=== PATIENT | male | born 1955 | race Caucasian/White ===

== ENCOUNTER 2020-01-22 11:53 | Observation (INO) | payer SELFPAY ==
[2020-01-22] VITALS (8 sets, daily range): BP systolic 119–139; BP diastolic 77–86; PULSE 55–72; RESP 11–16; TEMP 36.2–37.1; O2SAT 95–97; BMI 24.4; BMI 25.4
--- NOTE | 2020-01-22 11:59 | ED.RN ---
NO OLD EKGS
--- NOTE | 2020-01-22 12:03 | RAD_ITS ---
STUDY: X-RAY CHEST REASON FOR EXAM: Male, 64 years old. CHEST PAIN TECHNIQUE: PA and lateral views of the chest. COMPARISON: None. FINDINGS: The lungs are clear and expanded. There is no demonstrated pleural abnormality. Normal size heart. Normal mediastinum and oumou. Normal visualized pulmonary arteries. Normal visualized aortic arch and descending thoracic aorta. Normal visualized thoracic spine. Normal visualized ribs, clavicles, and shoulders. There is no demonstrated abnormality of the visualized soft tissue structures of the upper abdomen. RAD/Chest PA and Lateral IMPRESSION: Normal x-ray examination of the chest. Electronically Signed: Lake Klein MD at 12:42 EDT Tel , Service support ,
--- NOTE | 2020-01-22 12:03 | EKG12_ITS ---
Test Reason : Blood Pressure : / mmHG Vent. Rate : 071 BPM Atrial Rate : 071 BPM P-R Int : 140 ms QRS Dur : 088 ms QT Int : 380 ms P-R-T Axes : 066 -18 008 degrees QTc Int : 412 ms Normal sinus rhythm Minimal voltage criteria for LVH, may be normal variant Nonspecific ST abnormality Abnormal ECG Confirmed by CHARISSE OWENS, RALPH ([id number]), manager editorial WESLEY ASTORGA ([id number]) on 01/23/2020 8:25:06 AM Referred By: KEISHA Confirmed By:RALPH MCQUEEN MD
[2020-01-22] MEDS: Aspirin 81 MG TAB.CHEW 324 MG PO (12:12)
[2020-01-22 12:33] LABS: D-Dimer Quantitative (DVT/PE) 0.45 FEU/ug/m (0.27-0.49)
[2020-01-22 12:37] LABS: Absolute Lymphocyte Count 0.58 X10^3/uL (0.83-4.51); Absolute Neutrophil Count 3.3 X10^3/uL (2.0-7.7); Basophil# 0.02 X10^3/uL; Basophil% 0.5 % (0-1); Eosinophil# 0.02 X10^3/uL; Eosinophils% 0.5 % (0-5); Hematocrit 45.5 % (40-54); Hemoglobin 15.1 g/dL (13.0-16.5); Lymphocyte # 0.58 X10^3/ul (4.0); Lymphocyte % 13.5 % (19-41); Mean Corp Hgb Conc 33.2 g/dL (32-36); Mean Corpuscular Hgb 31.3 pg (27.0-32.0); Mean Corpuscular Volume 94.4 fL (80-94); Mean Platelet Vol. 9.9 fl (6.2-12.0); Monocyte# 0.36 X10^3/uL; Monocyte% 8.4 % (0-10); NRBC Flagged by Analyzer 0 % (0-5); Neutrophil # 3.31 X10^3/uL (2.7-7.7); Neutrophil % 76.6 % (47-70); POSITIVE DIFFERENTIAL YES; Platelet Count 198 K/mm3 (150-450); RBC Distribution Width CV 12.6 % (11.6-14.6); Red Blood Count 4.82 M/mm3 (4.6-6.2); White Blood Count 4.3 K/mm3 (4.4-11.0)
[2020-01-22 12:38] LABS: Differential Indicated SCAN CRITERIA MET
[2020-01-22 12:40] LABS: Anion Gap 6 (5-15); BUN 14 mg/dL (7-18); BUN/Creat Ratio 19.3 RATIO (10-20); Calcium,Total 8.5 mg/dL (8.5-10.1); Chloride 103 mmol/L (98-107); Creatinine, Serum 0.72 mg/dL (0.70-1.30); EST Glomerular Filtration Rate 115 mL/min (>60); Est Glom Filt Rate - Afr Amer 140 mL/min (>60); Estimated Creatinine Clearance 108.94 ml/min; Glucose 100 mg/dL (74-106); Potassium 4.1 mmol/L (3.5-5.1); Sodium Level 137 mmol/L (136-145)
--- NOTE | 2020-01-22 13:05 | PCM.HP.STD ---
Problem List (1) Syncope Status: Acute Qualifiers: Syncope type: unspecified Qualified Code(s): R55 - Syncope and collapse (2) Mitral valve prolapse Status: Chronic (3) History of DVT (deep vein thrombosis) Status: Chronic History of Present Illness Date of Admission: 01/22/20 Chief Complaint: Syncopal event The patient is a 64 y/o M w/ PMHx: Hx VTE (DVTs) 2016 x 2 following prolonged travel, Mitral Valve Prolapse who presents to the [facility] ED on 01/22/20 with history of onset syncopal event, noted to have been seated, had eaten breakfast with recent lower back discomfort complaints which happens occasionally with onset feeling hot, leaned his head back per spouse and passed out for ~1-2 minutes and once he came to he noted onset nausea with abdominal upper BL quadrant discomfort, tightness description with no post-ictal phase, no loss of bowel or bladder. He denied any recent illness including fever, chills, diarrhea, alteration to his sense of taste/smell. No recent ill contacts. No recent exposure COVID-19 risks. Work-up in the ED included 97.3, heart rate 72, BP 126/83, respiratory rate 16, 97% on room air, CBC w/ WBC 4.3, Hgb 15.1, Plts 198 with lymphopenia evident, D-dimer 0.45, BMP unremarkable, troponin less than 0.015, chest x-ray with no acute cardiopulmonary findings, EKG w/ sinus rhythm with nonspecific changes with no comparison. In the ED patient administered ASA 324 mg po x 1. In ED patient noted feeling improved and near his baseline. Past Medical History Past Medical History (Chronic Problems): Chronic Problems Mitral valve prolapse (Chronic) History of DVT (deep vein thrombosis) (Chronic) Allergies Penicillins Adverse Reaction (Verified 01/22/20 11:53) PT UNABLE TO RESPOND-NEEDS F/U Home Medications: Ambulatory Orders Medication Instructions Recorded Aspirin 81 mg PO DAILY 01/22/20 [place] 450 mg PO DAILY 01/22/20 Multivitamin [Multiple Vitamins] 1 tab PO DAILY 01/22/20 [place]-3 Fatty Acids [[place]-3] 1,000 mg PO DAILY 01/22/20 Turmeric/Turmeric Root Extract 1 cap PO DAILY 01/22/20 [Turmeric 500 mg Capsule] Surgical History: - - Hiatal hernia repair. Psychiatric History: No pertinent psych hx Lives: Spouse/ Significant Other Smoking Status: Former smoker Tobacco Use: Non-smoker Alcohol: Occasional Drugs: None - *Family History Maternal History Items: Stroke Paternal History Items: Heart Disease - Father with a history of MS leading to his . Review of Systems Constitutional: Reports: Malaise, Weakness, Fatigue. Denies: Anorexia, Chills, Fever, Weight Change HEENT: Denies: Head Aches, Sinus Congestion, Sinus Drainage Cardiovascular: Reports: Paroxysmal Noc. Dyspnea. Denies: Chest Pain, Chest Pressure, Chest Tightness, Light Headedness, Orthopnea, Palpitations Respiratory: Denies: Cough, Shortness of Breath, Shortness of breath at rest, Shortness of breath upon exertion, Sputum production Gastrointestinal: Reports: Abdominal Pain, Nausea. Denies: Vomiting Genitourinary: Denies: Dysuria Musculoskeletal: Reports: Back Pain, Joint Pain. Denies: Joint Tenderness Skin: Denies: Rash, Wounds Neurological: Denies: Numbness, Tingling, Focal weakness Psychiatric: Denies: Anxiety, Depression, Homicidal Ideations, Suicidal Ideations Hematologic/ Lymphatic: Denies: Easy Bruising, Easy Bleeding VTE Information - Inpt Only VTE Present on Admission: No VTE Mechan Device Prophylaxis: SCD's VTE Pharm Prophylaxis ordered?: Yes Subjective: Patient seated upright in ED bed, fatigued appearing, notes feeling improved. Objective: Physical Examination: General: awake, alert, oriented x 3 and cooperative, seated upright in the ED bed in no apparent distress. Skin: normal color, turgor, no icterus, cyanosis. HEENT: AT/NC, EOMI, PERRLA, moderately dry MM, no carotid bruits or JVD noted. Lungs: CTA bilaterally, moderate effort, moderate decrease BL bases, no rales, ronchi or wheezing. Heart: Mildly bradycardic with regular rhythm; no gallop, rub audible. Abdomen: soft, NTTP, ND, mildly hypoactive in all walker, no HSM. Extremities: no cyanosis, clubbing, or edema. Neurological: patient awake, alert, oriented x 3; cognitive function intact; pupils equally reactive to light and accomodation; cranial nerves II-XII grossly normal, moving all 4 extremities, no focal deficits, strength mildly globally decreased secondary to acute presentation. Psychiatric: affect appears mildly fatigued otherwise normal, no acute evidence of depressive or anxiety feelings. - Physical Exam Vitals/I&O's: Vital Signs Temp Pulse Resp BP Pulse Ox 97.3 F L 72 16 126/83 H 97 01/22/20 11:54 01/22/20 11:54 01/22/20 11:54 01/22/20 11:54 01/22/20 11:54 Oxygen Delivery Method Room Air Weight: 175 lb Body Mass Index (BMI) 24.4 Laboratory Results 01/22/20 12:00: WBC 4.3 L, RBC 4.82, Hgb 15.1, Hct 45.5, MCV 94.4 H, MCH 31.3, MCHC 33.2, RDW Std Deviation 44.0 H, RDW Coeff of Edna 12.6, Plt Count 198, MPV 9.9, Immature Gran % (Auto) 0.500, Neut % (Auto) 76.6 H, Lymph % (Auto) 13.5 L, [place] % (Auto) 8.4, Eos % (Auto) 0.5, Baso % (Auto) 0.5, Absolute Neuts (auto) 3.3, Absolute Lymphs (auto) 0.58 L, Nucleated RBC % 0 01/22/20 12:00: Sodium 137, Potassium 4.1, Chloride 103, Carbon Dioxide 28.0, Anion Gap 6, BUN 14, Creatinine 0.72, Estim Creat Clear Calc 108.94, Est GFR (MDRD) Af Amer 140, Est GFR (MDRD) Non-Af 115, BUN/Creatinine Ratio 19.3, Glucose 100, Calcium 8.5, Troponin I < 0.015 01/22/20 12:00: D-Dimer Quant (PE/DVT) 0.45 Assessment/Plan All Active Problems Syncope (Acute) The patient is a 64 y/o M w/ PMHx: Hx VTE (DVTs) 2016 x 2 following prolonged travel, Mitral Valve Prolapse who presents to the [facility] ED on 01/22/20 with history of onset syncopal event, noted to have been seated, had eaten breakfast with recent lower back discomfort complaints which happens occasionally with onset feeling hot, leaned his head back per spouse and passed out for ~1-2 minutes. 1. Syncopal Event: Unclear etiology, EKG in ED w/ sinus rhythm without evidence of acute ischemia, CXR w/ no acute cardiopulmonary findings, initial trop normal. Will admit to PCU, place on a monitored bed to assure no acute myocardial infarction with serial cardiac enzymes and EKGs. Will maintain on fall precautions, obtain admission orthostatic and AM orthostatic VS and increase hydration if appropriate. Will obtain ECHO. 2. Abdominal discomfort, nausea: Unclear if associate with #1, to be cautious will obtain hepatic profile additionally and lipase. Patient did note last BM was 1 day prior, monitor output and if any concerns may consider KUB. 3. Hx VTE, DVT x 2 (RLE, LLE): D-dimer normal, noted to have happened with prolonged travel in 2016 to bilateral lower extremities and none since, not anticoagulated currently. 4. DVT Prophylaxis: SCDs, lovenox. 5. CODE status: Patient DOUG is his who is present and living will is in place. Discussed CODE status at length including difference between FULL code, DNR-CCA and DNR-CC status. Following discussions about the differences in these status, requested Full Code status but noted his living will had specifics about prolonged needs being deferred. Advanced Care Planning Face to Face Time: 16 minutes. OBSV E&M: 42014 Initial observation care L3 Procedures: 85721 Advncd Care Plan 30 Min
--- NOTE | 2020-01-22 13:12 | ED.DCSUM_ITS ---
History of Present Illness Chief Complaint: Syncope Narrative: Patient presenting for evaluation secondary to a syncopal episode. Patient states that he was feeling fine today, and had a sudden onset of syncope. He reports that he was seated getting ready for work and he had an onset of some nausea no intense abdominal pain and then his reports that he had a syncopal episode. She reports that he was making some abnormal sounds when this happened, but was not having any tonic-clonic seizure activity there was no postictal episode. Patient did not lose control of his bowel or bladder, did not have any tongue biting he denies any preceding chest pain palpitations or shortness of breath. He has been otherwise healthy recently denies any infectious signs or symptoms. Patient does have a past history of DVT, he is no longer currently anticoagulated. He has had a period recently where he was seated for prolonged period of time over the weekend. No abnormal leg swelling. Review of systems otherwise negative. Past Medical History - Allergies and Home Meds Allergies/Adverse Reactions: Allergies Penicillins Adverse Reaction (Verified 01/22/20 11:53) PT UNABLE TO RESPOND-NEEDS F/U Primary Care Physician: Dante Gurrola DO [Primary Care Provider] - Prior records reviewed: Yes Past Medical History: - - Past history of DVT Lives: Spouse/ Significant Other Smoking Status: Former smoker Alcohol: None Drugs: None Review of Systems All systems negative except as indicated General: Denies: Chills, Fever, Sweats Eyes: Denies: Visual changes - bilaterally, Diplopia ENT: Denies: Rhinorrhea, Sore throat Cardiovascular: Reports: - - Syncope Respiratory: Denies: Dyspnea, Cough, Dyspnea on exertion Gastrointestinal: Reports: Nausea Genitourinary: Denies: Dysuria, Hematuria, Frequency Musculoskeletal: Denies: Back pain, Extremity Pain Skin: Denies: Rash, Wounds Neurological: Denies: Headache, Weakness, Numbness Physical Exam Vital Signs/Narrative: Vital Signs Temp Pulse Resp BP Pulse Ox 01/22/20 13:05 97.2 F L 64 11 L 120/86 H 96 01/22/20 11:54 97.3 F L 72 16 126/83 H 97 Inital Vital Signs reviewed: Yes General: Well nourished, Well developed, No Acute Distress Head: Normocephalic, Atraumatic Eyes: Perrl, EOMI ENT: Moist mucous membranes, No rhinorrhea Neck: Supple, Nontender Cardiovascular: Regular rate, Regular rhythm, No murmurs Respiratory: No distress, CTA bilaterally, Chest nontender Abdomen: Soft, Nontender, Nondistended, Normal bowel sounds Back: Nontender, Normal Inspection Extremities: Nontender, No edema Skin: Normal color, No rash Neurological: Alert, Oriented x3, Cranial nerves II-XII grossly intact, Normal Strength, Normal Sensation Psychological: Normal affect, Normal Mood Diagnostic/Tx/Re-eval Chest X-Ray - ED: Read by ED Physician, Read by Radiologist, Normal Clinical Impression(s) from Imaging Studies Chest X-Ray 01/22/20 12:03 IMPRESSION: Normal x-ray examination of the chest. Electronically Signed: Lake Klein MD at 12:42 EDT Tel , Service support , Laboratory Data 01/22/20 01/22/20 01/22/20 12:00 12:00 12:00 WBC 4.3 L RBC 4.82 Hgb 15.1 Hct 45.5 MCV 94.4 H MCH 31.3 MCHC 33.2 RDW Std Deviation 44.0 H RDW Coeff of Edna 12.6 Plt Count 198 MPV 9.9 Immature Gran % (Auto) 0.500 Neut % (Auto) 76.6 H Lymph % (Auto) 13.5 L [place] % (Auto) 8.4 Eos % (Auto) 0.5 Baso % (Auto) 0.5 Absolute Neuts (auto) 3.3 Absolute Lymphs (auto) 0.58 L Nucleated RBC % 0 D-Dimer Quant (PE/DVT) 0.45 Sodium 137 Potassium 4.1 Chloride 103 Carbon Dioxide 28.0 Anion Gap 6 BUN 14 Creatinine 0.72 Estim Creat Clear Calc 108.94 Est GFR (MDRD) Af Amer 140 Est GFR (MDRD) Non-Af 115 BUN/Creatinine Ratio 19.3 Glucose 100 Calcium 8.5 Troponin I < 0.015 - EKG Initial EKG Interpretation: - - Sinus rhythm of 71 with normal T waves, isoelectric ST segments, normal intervals, no evidence of WPW or [place] morphology. - Medical Decision Making Patient presented after syncopal episode. He was watched on telemetry did not have any signs of malignant arrhythmia. Chest x-ray by my review as well as radiology is negative. Lab work including CBC chemistry troponin and D-dimer were negative. Patient had a unprovoked syncopal event and is 64 years old I believe that he requires admission for observation for work-up of a unprovoked syncopal episode and rule out malignant arrhythmia. Patient will be admitted under the hospitalist. ED Disposition - Plan for ED Patient: Disposition: Acute Care Hospital [facility] Diagnosis: Syncope
[2020-01-22 13:14] LABS: Platelet Estimate ADEQUATE (ADEQ); Red Cell Morphology NORM C+C NORMAL (NORM C&C)
--- NOTE | 2020-01-22 14:36 | ECHOD_ITS ---
Reason For Study: SYNCOPE Procedure This was a 2D Doppler, Color Flow transthoracic echocardiogram. The exam was of adequate technical quality. Exam performed portable in patient room. Left Ventricle Normal LV size. Left ventricular systolic function is normal. The estimated ejection fraction is 60 %. Diastolic function is indeterminate. No regional wall motion abnormalities noted. Right Ventricle Normal RV size. Normal systolic function. Atria Borderline enlarged left atrium. Normal right atrium. No doppler evidence for ASD. Mitral Valve There is no mitral annular calcification. Normal mitral valve. Mild (1+) mitral valve insufficiency. Tricuspid Valve Normal tricuspid valve. Trivial tricuspid valve insufficiency. Right ventricular systolic pressure estimated to be 25 mmHg. Aortic Valve Trisinus/trileaflet aortic valve. Mild focal aortic valve calcification. Pulmonic Valve The pulmonic valve is not well visualized. Great Vessels Mildly dilated aortic root. Pericardium/Pleural No pericardial effusion. MMode/2D Measurements & Calculations LVIDd: 5.6 cm IVSd: 0.79 cm Ao root diam: 4.0 cm LVIDs: 3.9 cm LVPWd: 0.82 cm RVDd: 4.0 cm FS: 30.4 % LAV(MOD-bp): 69.9 ml LVAd ap4: 37.8 cm2 SV(MOD-sp4): 71.6 ml LAV(MOD-bp) Indexed: 34.5 ml/m2 EDV(MOD-sp4): 129.5 ml LAV(MOD-sp2): 79.5 ml EDV(sp4-el): 132.5 ml LAV(MOD-sp4): 58.6 ml LVAs ap4: 22.2 cm2 ESV(MOD-sp4): 57.9 ml ESV(sp4-el): 58.2 ml EF(MOD-sp4): 55.3 % EF(sp4-el): 56.1 % SV(sp4-el): 74.3 ml LA A4 area: 20.5 cm2 LA dimension(2D): 3.8 cm RA A4 area: 20.8 cm2 Time Measurements MV dec time: 0.11 sec Doppler Measurements & Calculations MV E max tato: 41.9 cm/sec Lat Peak E' Tato: 9.7 cm/sec Med Peak E' Tato: 5.9 cm/sec MV A max tato: 46.2 cm/sec E/E' lat: 4.3 E/E' med: 7.1 MV E/A: 0.91 Ao V2 max: 112.9 cm/sec LV V1 max: 84.5 cm/sec PA V2 max: 91.3 cm/sec Ao max P.1 mmHg LV V1 max P.9 mmHg PI end-d tato: 84.9 cm/sec TR max tato: 234.8 cm/sec TR max P.1 mmHg Interpretation Summary Left ventricular systolic function is normal. The estimated ejection fraction is 60 %. Borderline enlarged left atrium. Mild (1+) mitral valve insufficiency. Trivial tricuspid valve insufficiency. Mild focal aortic valve calcification. Mildly dilated aortic root. Right ventricular systolic pressure estimated to be 25 mmHg. Diastolic function is indeterminate. Ordering Physician: Jaylyn Wilkerson Referring Physician: SHYANNE GONZALEZ Performed By: Greta Milligan, RDMARIANO, RVT
[2020-01-22] MEDS: 0.9% Saline Lock 10 ML Syringe IV (14:53)
[2020-01-22] MEDS: 0.9% Normal Saline 1,000 ML 125 ML IV ×2 (14:53→22:47)
[2020-01-22 15:13] LABS: AST(SGOT) 15 U/L (15-37); Alanine Aminotransfer ALT/SGPT 19 U/L (16-61); Albumin, Serum 3.3 g/dL (3.2-5.0); Alkaline Phosphatase 61 U/L (45-117); Bilirubin, Direct 0.15 mg/dL (0.00-0.30); Globulin 3.3 g/dL (2.2-4.2); Lipase 100 U/L (73-393); Magnesium 2.1 mg/dL (1.6-2.6); Protein, Total 6.6 g/dL (6.4-8.2)
[2020-01-22] MEDS: Famotidine 20 MG Tablet PO (21:24)
[2020-01-23] VITALS (8 sets, daily range): BP systolic 120–143; BP diastolic 62–95; PULSE 59–91; RESP 16–18; TEMP 36.5–36.7; O2SAT 96–98
[2020-01-23] MEDS: 0.9% Normal Saline 1,000 ML 125 ML IV (06:01)
[2020-01-23 07:22] LABS: Absolute Lymphocyte Count 0.66 X10^3/uL (0.83-4.51); Absolute Neutrophil Count 2.5 X10^3/uL (2.0-7.7); Basophil# 0.01 X10^3/uL; Basophil% 0.3 % (0-1); Eosinophil# 0.02 X10^3/uL; Eosinophils% 0.6 % (0-5); Hematocrit 42.1 % (40-54); Lymphocyte # 0.66 X10^3/ul (4.0); Lymphocyte % 18.9 % (19-41); Mean Corp Hgb Conc 33.3 g/dL (32-36); Mean Corpuscular Hgb 31.3 pg (27.0-32.0); Mean Corpuscular Volume 94.2 fL (80-94); Mean Platelet Vol. 9.8 fl (6.2-12.0); Monocyte# 0.34 X10^3/uL; Monocyte% 9.7 % (0-10); NRBC Flagged by Analyzer 0 % (0-5); Neutrophil # 2.45 X10^3/uL (2.7-7.7); Neutrophil % 70.2 % (47-70); Platelet Count 157 K/mm3 (150-450); RBC Distribution Width CV 12.6 % (11.6-14.6); Red Blood Count 4.47 M/mm3 (4.6-6.2); White Blood Count 3.5 K/mm3 (4.4-11.0)
[2020-01-23 07:46] LABS: AST(SGOT) 15 U/L (15-37); Alanine Aminotransfer ALT/SGPT 16 U/L (16-61); Alkaline Phosphatase 56 U/L (45-117); Anion Gap 5 (5-15); BUN 12 mg/dL (7-18); BUN/Creat Ratio 16.2 RATIO (10-20); Calcium,Total 7.8 mg/dL (8.5-10.1); Chloride 107 mmol/L (98-107); Creatinine, Serum 0.74 mg/dL (0.70-1.30); EST Glomerular Filtration Rate 113 mL/min (>60); Est Glom Filt Rate - Afr Amer 136 mL/min (>60); Glucose 94 mg/dL (74-106); Sodium Level 141 mmol/L (136-145)
[2020-01-23] MEDS: Enoxaparin 40 MG/0.4 ML Syringe SC (08:28)
[2020-01-23] MEDS: Famotidine 20 MG Tablet PO (08:28)
[2020-01-23] MEDS: Aspirin 81 MG TAB.CHEW PO (08:28)
--- NOTE | 2020-01-23 11:30 | DCINST_ITS ---
- Discharge Diagnoses Current Active Problems: Current Active and Chronic Problems Syncope (Acute) Mitral valve prolapse (Chronic) History of DVT (deep vein thrombosis) (Chronic) Syncope (Acute) You will use the following diet at home:: Regular Your food should be the consistency of: Regular Discharge Activity: May Not Drive - Until see his PCP Weight Bearing Status: Weight bearing as tolerated Call your doctor if you observe: Fever of 101 or Higher, Numbness or Tingling, Inability to urinate, Inability to have a bowel movement, Shortness of breath, Dizziness, Fainting spells, Swelling in the ankles, Chest pain, Increased palpitations (irregular heartbeat), Calf discomfort, Uncontrolled pain Allergies/Adverse Reactions: Allergies Penicillins Adverse Reaction (Verified 01/22/20 11:53) PT UNABLE TO RESPOND-NEEDS F/U Medications to take at Discharge Aspirin 81 mg PO DAILY 01/22/20 [place] 450 mg PO DAILY 01/22/20 Multivitamin [Multiple Vitamins] 1 tab PO DAILY 01/22/20 [place]-3 Fatty Acids [[place]-3] 1,000 mg PO DAILY 01/22/20 Turmeric/Turmeric Root Extract [Turmeric 500 mg Capsule] 1 cap PO DAILY 01/22/20 Primary Care Physician: Dante Gurrola DO [Primary Care Provider] - Please follow up with your Primary Care Physician in: IN 1-2 WEEKS Test Results: Test results from this visit will be discussed in further detail at your follow- up appointment, if applicable.
[2020-01-23 13:11] LABS: Pathologist Review Reviewed
--- NOTE | 2020-01-23 13:54 | DS.PCM_ITS ---
<Jey Munoz - Last Filed: 01/23/20 13:54> Discharge Date and Diagnosis - Problem List Patient Problems: Active and Suspected Problems Syncope (Acute) Syncope (Acute) Date of Admission: 01/22/20 Date of Discharge: 01/23/20 - Primary Discharge Diagnosis Acute Problems: Active Problems Syncope - orthostatic hypotension - Secondary Discharge Diagnosis Chronic Problems: Chronic Problems Mitral valve prolapse (Chronic) History of DVT (deep vein thrombosis) (Chronic) Hospital Course and Treatment Imaging Results: RAD/Chest PA and Lateral IMPRESSION: Normal x-ray examination of the chest. 2D TTE: Interpretation Summary Left ventricular systolic function is normal. The estimated ejection fraction is 60 %. Borderline enlarged left atrium. Mild (1+) mitral valve insufficiency. Trivial tricuspid valve insufficiency. Mild focal aortic valve calcification. Mildly dilated aortic root. Right ventricular systolic pressure estimated to be 25 mmHg. Diastolic function is indeterminate. Operations: None Procedures: 2-D Echocardiogram Summary of Care Provided: Hospital Course: The patient is a 64 year old M hx provoked DVT and MVP who presented to the ER with syncope. The patient was sitting on a stool waiting to be picked up for work when he felt back pain and then passed out for several minutes. He had no shaking or tongue biting. He woke up feeling nauseous. He came to the ER and had negative EKG, negative D dimer, neg CXR, and unremarkable blood work. He was admitted to PCU. He was treated with IV fluids. He had no events on tele. He was not on any medications that would likely induce syncope. Echo was obtained showing preserved EF and 1+ MVI, RVSP 25. He had + orthostatic vitals. He was discharged home in stable condition and advised to follow up with his pcp in 1-2 weeks. This patient was seen by Jey Munoz PA-C under the supervision of Dr. Horn. [] Patient Problems: Active and Suspected Problems Syncope (Acute) Syncope (Acute) - Physical Exam Vitals/I&O's: Vital Signs Temp Pulse Resp BP Pulse Ox 98.0 F 59 L 16 137/75 H 97 01/23/20 08:24 01/23/20 11:47 01/23/20 08:24 01/23/20 11:47 01/23/20 08:24 Oxygen Delivery Method Room Air Weight: 182 lb 1.629 oz Body Mass Index (BMI) 25.4 Intake and Output for Last 24 Hours 01/21/20 01/22/20 01/23/20 23:59 23:59 23:59 Intake Total 1437.5 / 1437.5 1622.92 / 1622.92 Balance 1437.5 / 1437.5 1622.92 / 1622.92 General: Alert, Oriented x3, Cooperative HEENT: Atraumatic, PERRLA, EOMI, Normocephalic Neck: Supple, No JVD, Negative Carotid Bruits Lungs: Clear to auscultation, Normal air movement Cardiovascular: Regular rate, No murmurs Abdomen: Bowel Sounds Present, Soft, Non Tender Extremities: No edema, Capillary Refill Less than 3 Seconds Skin: No rashes, No breakdown Musculoskeletal: No Tenderness to Palpation of Joints or Extremities Neurological: Cranial nerves II-XII grossly intact Psych/Mental Status: Normal Affect, Appropriate, Alert and oriented to time, place, person, mood and affect Laboratory Results 01/22/20 12:00: Diff Path Review Reviewed 01/22/20 14:45: Magnesium 2.1, Total Bilirubin 0.50, Direct Bilirubin 0.15, AST 15, ALT 19, Alkaline Phosphatase 61, Troponin I < 0.015, Total Protein 6.6, Albumin 3.3, Globulin 3.3, Lipase 100 01/22/20 17:54: Troponin I < 0.015 01/23/20 06:55: WBC 3.5 L, RBC 4.47 L, Hgb 14.0, Hct 42.1, MCV 94.2 H, MCH 31.3, MCHC 33.3, RDW Std Deviation 44.0 H, RDW Coeff of Edna 12.6, Plt Count 157, MPV 9.8, Immature Gran % (Auto) 0.300, Neut % (Auto) 70.2 H, Lymph % (Auto) 18.9 L, Dawson % (Auto) 9.7, Eos % (Auto) 0.6, Baso % (Auto) 0.3, Absolute Neuts (auto) 2.5, Absolute Lymphs (auto) 0.66 L, Nucleated RBC % 0 01/23/20 06:55: Sodium 141, Potassium 4.0, Chloride 107, Carbon Dioxide 29.0, Anion Gap 5, BUN 12, Creatinine 0.74, Estim Creat Clear Calc 106.00, Est GFR (MDRD) Af Amer 136, Est GFR (MDRD) Non-Af 113, BUN/Creatinine Ratio 16.2, Glucose 94, Calcium 7.8 L, Total Bilirubin 0.50, AST 15, ALT 16, Alkaline Phosphatase 56, Total Protein 6.0 L, Albumin 3.0 L, Globulin 3.0, Albumin/Globulin Ratio 1.0 Discharge Diet: No Restrictions, 2000 mg Sodium Diet Discharge Activity: May Not Drive - Until see his PCP Weight Bearing Status: Weight bearing as tolerated Call your doctor if you observe: Fever of 101 or Higher, Numbness or Tingling, Inability to urinate, Inability to have a bowel movement, Shortness of breath, Dizziness, Fainting spells, Swelling in the ankles, Chest pain, Increased palpitations (irregular heartbeat), Calf discomfort, Uncontrolled pain Home Medications: Medications to take at Discharge Aspirin 81 mg PO DAILY 01/22/20 [place] 450 mg PO DAILY 01/22/20 Multivitamin [Multiple Vitamins] 1 tab PO DAILY 01/22/20 [place]-3 Fatty Acids [[place]-3] 1,000 mg PO DAILY 01/22/20 Turmeric/Turmeric Root Extract [Turmeric 500 mg Capsule] 1 cap PO DAILY 01/22/20 Primary Care Physician: Dante Gurrola DO [Primary Care Provider] - Please follow up with your Primary Care Physician in: IN 1-2 WEEKS Disposition: Home Minutes spent on discharge:: 35 Patient Condition:: Stable Medical Necessity - Tobacco Use Smoking Status: Never smoker Tobacco Use: Non-smoker Meaningful Use Info Meaningful Use Diagnoses (Choose all that apply): None applicable <Luke Horn - Last Filed: 01/23/20 16:08> Discharge Date and Diagnosis - Primary Discharge Diagnosis Acute Problems: Active Problems Syncope (Acute) Syncope (Acute) - Secondary Discharge Diagnosis Chronic Problems: Chronic Problems Mitral valve prolapse (Chronic) History of DVT (deep vein thrombosis) (Chronic) Hospital Course and Treatment Summary of Care Provided: This patient was seen in conjunction with Jey PERKINS. I have independently interviewed and examined the patient and reviewed pertinent history, examination findings, laboratory and plan of management. I have reviewed the note and agree with the documented findings with the few additional points. In brief, patient is admitted for syncope most likely vasovagal syncope or dehydration. Patient was dizzy and lightheaded before passing out and when he woke up was mild dizzy and took some minutes to come back to full alertness. Orthostatic blood pressure was low. Patient was hydrated well and repeat orthostatic blood pressure came normal. ECHO as mentioned above. Has H/o MVP with mild MR. Discharge medication reconciliation done. Discharge follow-up instructions completed. Discharge process discussed with the patient and all questions were answered to patient's satisfaction. Total time spent, exact 35 minutes on discharge meds reconciliation, examination, coordination of care with nurses and ancillary staff, review of imaging and blood test and discussion with the patient on follow-up instructions I have discussed my assessment with Jey PERKINS and orders have been reviewed. [] Objective: Seen and examined. On day of admission, patient had orthostatic drop in blood pressure from sitting to standing position about 23 mmHg. Patient was hydrated well. Repeat orthostatic blood pressure negative. Physical exam. General: Alert, Oriented x3, Cooperative HEENT: Atraumatic, PERRLA, EOMI, Normocephalic Oral: No Gingival or Mucosal Lesions/ Ulcerations Neck: Supple, No JVD, Negative Carotid Bruits Lungs: Air entry diminished in bilateral lung bases. No crepitation/rhonchi Cardiovascular: Regular rate, Regular Rhythm, Normal S1, Normal S2, No murmurs Abdomen: Bowel Sounds Present, Soft, Non Tender, Non-Distended : No renal angle tenderness. No suprapubic tenderness. Extremities: No edema, Capillary Refill Less than 3 Seconds Skin: No rashes, No breakdown Musculoskeletal: No Tenderness to Palpation of Joints or Extremities Neurological: Cranial nerves II-XII grossly intact, Deep Tendon Reflexes 2+/4 and Symmetrical, Neuro grossly intact Psych/Mental Status: Normal Affect, Appropriate. - Physical Exam Vitals/I&O's: Vital Signs Temp Pulse Resp BP Pulse Ox 98.0 F 59 L 16 137/75 H 97 01/23/20 08:24 01/23/20 11:47 01/23/20 08:24 01/23/20 11:47 01/23/20 08:24 Oxygen Delivery Method Room Air Weight: 182 lb 1.629 oz Body Mass Index (BMI) 25.4 Intake and Output for Last 24 Hours 01/21/20 01/22/20 01/23/20 23:59 23:59 23:59 Intake Total 1437.5 / 1437.5 1622.92 / 1622.92 Balance 1437.5 / 1437.5 1622.92 / 1622.92 Laboratory Results 01/22/20 12:00: Diff Path Review Reviewed 01/22/20 17:54: Troponin I < 0.015 01/23/20 06:55: WBC 3.5 L, RBC 4.47 L, Hgb 14.0, Hct 42.1, MCV 94.2 H, MCH 31.3, MCHC 33.3, RDW Std Deviation 44.0 H, RDW Coeff of Edna 12.6, Plt Count 157, MPV 9.8, Immature Gran % (Auto) 0.300, Neut % (Auto) 70.2 H, Lymph % (Auto) 18.9 L, Dawson % (Auto) 9.7, Eos % (Auto) 0.6, Baso % (Auto) 0.3, Absolute Neuts (auto) 2.5, Absolute Lymphs (auto) 0.66 L, Nucleated RBC % 0 01/23/20 06:55: Sodium 141, Potassium 4.0, Chloride 107, Carbon Dioxide 29.0, Anion Gap 5, BUN 12, Creatinine 0.74, Estim Creat Clear Calc 106.00, Est GFR (MDRD) Af Amer 136, Est GFR (MDRD) Non-Af 113, BUN/Creatinine Ratio 16.2, Glucose 94, Calcium 7.8 L, Total Bilirubin 0.50, AST 15, ALT 16, Alkaline Phosphatase 56, Total Protein 6.0 L, Albumin 3.0 L, Globulin 3.0, Albumin/Globulin Ratio 1.0 OBSV E&M: [id number] Observation care discharge
== END 2020-01-23 13:08 | disposition home or self-care (01) ==
LOC: ED 13:15 → PCU 15:42
PROVIDERS: Admitting Provider Family Medicine; Emergency Provider Emergency Medicine; PCP Family Medicine; Visit Provider Internal Medicine
DX: R55 Syncope and collapse (principal); Z86.718 Personal history of other venous thrombosis and embolism; Z79.82 Long term (current) use of aspirin; Z87.891 Personal history of nicotine dependence; R10.9 Unspecified abdominal pain; R11.0 Nausea; I08.1 Rheumatic disorders of both mitral and tricuspid valves; M54.9 Dorsalgia, unspecified
CPT/HCPCS: 36415; 71046; 80048; 80053; 80076; 83690; 83735; 84484; 85025; 85379; 93005; 93306; 96360; 96361; 96372; 99218; 99251; 99285; J7030; A4216; G0378; G0463

== ENCOUNTER 2024-05-06 17:53 | Emergency (ER) | payer OTHER, SELFPAY ==
[2024-05-06 17:54] VITALS: BP 153/105; PULSE 80; RESP 15; TEMP 36.1; O2SAT 100; BMI 26.2
--- NOTE | 2024-05-06 18:12 | EDS_ITS ---
<Statement entered by Alf Santiago DO - 05/06/24 20:04> Patient was seen and examined with nurse dany Monreal All components of the history and physical confirmed and agreed. History of present illness and physical exam: Patient is a 69-year-old male with no known significant past medical history who presented to the emergency department with a chief complaint of abdominal pain. He states that this been going on for several months but states the last few days has been worsening. He states that he followed up with his primary care physician and was told yesterday to start MiraLAX. He states that he did have a bowel movement earlier today. He states that he is passing gas. Patient denies any sick contacts. Review of systems: Agree with above Physical exam: Agree with above MDM Patient is a 69-year-old male who presented to the emergency department the chief complaint of abdominal pain. On the differential diagnose includes Melamin to constipation, bowel obstruction, diverticulitis, pancreatitis. Once workup is obtained and reviewed he will be reevaluated. Patient CBC reviewed and was largely unremarkable no evidence leukocytosis white blood count normal 8.3, hemoglobin 13.4, plate count normal at 243. Patient sodium normal 139, potassium normal at 4, creatinine normal at 0.85. Patient's AST and ALT were 14 and 19 respectively. Patient lipase normal at 29 urinalysis reviewed and showed no evidence of infection. Patient CT abdomen pelvis with IV contrast reviewed showed a right renal cyst, left paravertebral cyst, left hepatic lobe cyst. Discussed results with the patient and he was encouraged to continue the bowel regimen and increase the MiraLAX that he is currently on to 3 times a day and will add Colace. He was encouraged to follow-up with his primary care physician and return with worsening symptoms or any concerns. Patient was given Bentyl as well. He is agreeable this plan as well as family members at bedside all question concerns answered is discharged home in stable condition. Final impression: Abdominal pain Constipation Disposition: Patient will be discharged home in stable condition Supervising attending attestation: Alf COLINDRES History of Present Illness Chief Complaint: Abd Pain Narrative Narrative: Patient is a 69-year-old male with no significant medical history who presents to the Emergency Department with complaints of ongoing abdominal pain for the last 6 to 7 weeks. Patient states over the last 2 to 3 days, the pain has been much more severe, last evening could not sleep. He states that his bowel movements have decreased. He is not having difficulty passing gas. He denies any fever or chills, denies any nausea or vomiting. Denies any blood in his stool or vomit. [facility] Medical History no medical history Home Medications ?Medication ?Instructions ?Recorded ?Last Taken ?Type aspirin 81 mg chewable tablet 81 mg PO DAILY heart hea lth 01/22/20 01/22/20 History capsicum (cayenne) 450 mg capsule 450 mg PO DAILY supp lemetn 01/22/20 01/22/20 History multivitamin 1 tab PO DAILY supplement 01/22/20 History omega-3 fatty acids 1,000 mg 1,000 mg PO DAILY supplem ent 01/22/20 01/22/20 History capsule turmeric 450 mg-turmeric root 1 cap PO DAILY supplemen t 01/22/20 01/22/20 History extract 50 mg capsule dicyclomine 20 mg tablet 20 mg PO TID #14 tabs Unknown Rx docusate sodium 100 mg capsule 100 mg PO BID #30 caps 05/06/24 Unknown Rx (Colace) Allergy/AdvReac Type Severity Reaction Status Date / Time Penicillins AdvReac PT UNABLE Verified 05/06/24 17:54 TO RESPOND-NEEDS F/U Family History no significant family his Surgical History no surgical history Social History Smoking Status: Never smoker ROS ROS ED ROS Narrative Constitutional: Negative for fever, chills, weight loss, weakness Eyes: Negative for vision loss, vision change, double vision ENT: Negative for any sore throat, ear pain, congestion Cardiovascular: Negative for any chest pain, tightness, palpitations Respiratory: Negative for any cough, sputum production, hemoptysis, dyspnea, dyspnea on exertion, orthopnea Gastrointestinal: Negative for any nausea, vomiting, diarrhea, blood in stool, blood in vomit., Positive abdominal pain, constipation : Negative for any urinary frequency, dysuria, retention, blood in urine Muscle skeletal: Negative for any neck pain, back pain Neurological: Negative for any headache, syncope, dizziness Skin: Negative for any rashes, itching, abrasions, lacerations Psychiatric: Negative for any depression, anxiety, stress, suicidal ideation, homicidal ideation Hematologic: Negative for any excessive bruising, easy bleeding EXAM Physical Exam Narrative Exam Narrative: Vital signs reviewed. BERNABE: Head normocephalic atraumatic, TMs clear bilaterally. Posterior pharynx is clear, moist mucous membranes. Nares clear bilaterally. Neck: Supple with no lymphadenopathy or tenderness. No signs of meningismus. Cardiac: Regular rate and rhythm no murmurs gallops or rubs, equal peripheral pulses bilaterally. Respiratory: Lungs clear to auscultation bilaterally. No chest tenderness. Abdomen: Soft, nondistended. No abdominal bruit or pulsatile masses. No hepatosplenomegaly. Hyperactive bowel sounds, pain to the lower midline abdomen. No peritoneal sign Extremities: No peripheral edema, no signs of gross trauma or deformity. Active full range of motion of all extremities. Neuro: Cranial nerves II through XII intact, no focal neurological deficits. Skin: Clean dry and intact with no rash, purpura, petechiae, vesicles or pustules. Backs/flank: No CVA tenderness, no midline spinal tenderness, no deformity. Psych: Normal mood and affect. No SI, HI or acute psychosis. Const Vital Signs: 05/06/24 17:54 Temperature 97 F L Temperature Source Temporal Pulse Rate 80 Respiratory Rate 15 Blood Pressure 153/105 H Blood Pressure Mean 121 Pulse Ox 100 Oxygen Delivery Method Room Air [facility] Lab Data Labs: Laboratory Results - last 24 hr 05/06/24 05/06/24 18:05 18:13 WBC 8.3 RBC 4.47 L Hgb 13.4 Hct 39.9 L MCV 89.3 MCH 30.0 MCHC 33.6 RDW Std Deviation 42.9 RDW Coeff of Edna 13.1 Plt Count 243 MPV 9.9 Immature Gran % (Auto) 0.200 Neut % (Auto) 75.8 H Lymph % (Auto) 13.2 L [place] % (Auto) 7.8 Eos % (Auto) 2.2 Baso % (Auto) 0.8 Absolute Neuts (auto) 6.3 Absolute Lymphs (auto) 1.10 Nucleated RBC % 0 Sodium 139 Potassium 4.0 Chloride 106 Carbon Dioxide 26.0 Anion Gap 7 BUN 27 H Creatinine 0.85 Estim Creat Clear Calc 86.13 Est GFR (MDRD) Af Amer 114 Est GFR (MDRD) Non-Af 94 BUN/Creatinine Ratio 31.7 H Glucose 112 H Calcium 8.9 Total Bilirubin 0.40 AST 14 L ALT 19 Alkaline Phosphatase 86 Total Protein 7.2 Albumin 3.5 Globulin 3.7 Albumin/Globulin Ratio 0.9 Lipase 29 Urine Color Yellow Urine Clarity Clear Urine pH 5.0 Ur Specific [place] 1.025 Urine Protein 15 H Urine Glucose (UA) Normal Urine Ketones 15 H Urine Occult Blood 10 H Urine Nitrite Negative Urine Bilirubin Negative Urine Urobilinogen Normal Ur Leukocyte Esterase 25 H Urine RBC 0 SEEN Urine WBC 0 SEEN Ur Squamous Epith Cells 0 SEEN Urine Bacteria 0 SEEN Urine Mucus 0 SEEN Radiography Diagnostic Testing: Clinical Impression(s) from Imaging Studies Abdomen/Pelvis CT 05/06/24 18:25 IMPRESSION: 1. Right renal cyst. 2. Left paravertebral cysts. 3. Left hepatic lobe cyst. 4. Other nonacute findings detailed above. Reading Location: [facility] Treatment and Re-Evaluation :: Differential diagnosis includes however is not limited to: Bowel obstruction, acute appendicitis, constipation, mass with diverticulitis, colitis Patient appears generally well, vital signs are stable, patient is nontoxic- appearing. Presenting to the [facility] for ongoing pain to the lower abdomen. Patient will receive the basic laboratory values going CBC CMP lipase, CT scan of the abdomen pelvis will be ordered. All radiologic examinations were read, reviewed by the emergency department attending. From these reads, a plan of care will be put in place. Patient was offered pain and nausea medicine, refused at this time Patient's abdominal CT shows right renal cyst, left paravertebral cyst. Left hepatic lobe cyst. No other acute findings. Patient's laboratory values showed normal CBC, chemistries were unremarkable. Patient's urinalysis was negative for infection. At this time, I did speak with the patient regarding a bowel regimen. Patient is currently taking MiraLAX he do that to 3 times a day. Add Colace, as well as if he needs to magnesium citrate. Patient was given Bentyl for abdominal cramping. He is happy the plan of care and will follow-up outpatient Discharge Plan Triage Chief Complaint: Abd Pain ED Midlevel Provider: Rah Navarro ED Provider: Alf Santiago Dx/Rx/DC Orders Clinical Impression: Abdominal pain, Constipation Instructions: Abdominal Pain, Eating a High-Fiber Diet, ED Constipation (Adult) Prescriptions: New dicyclomine 20 mg tablet 20 mg PO TID Qty: 14 0RF docusate sodium [Colace] 100 mg capsule 100 mg PO BID Qty: 30 0RF No Action aspirin 81 MG tablet,chewable 81 mg PO DAILY multivitamin 1 EACH tablet 1 tab PO DAILY omega-3 fatty acids 1,000 MG capsule 1,000 mg PO DAILY capsicum (cayenne) 450 MG capsule 450 mg PO DAILY turmeric-turmeric root extract 1 EACH capsule 1 cap PO DAILY Primary Care Provider: Dante Gurrola Referrals: Dante Gurrola, [Primary Care Provider] - Activity Restrictions/Additional Instructions: Please use your MiraLAX 2-3 times a day, you may add Colace. Bentyl is for abdominal cramping. Continue to stay hydrated Print Language: Kenyan Disposition Disposition: Home, Self Care
--- NOTE | 2024-05-06 18:25 | CT_ITS ---
PROCEDURE: ABDOMEN/PELVIS WITH IV CONTRAST REASON FOR EXAM: Abdominal pain for 3 weeks. TECHNIQUE: Contiguous axial scans of 3.75 mm slice thicknesses with sagittal and coronal reconstruction images. One or more dose reduction techniques were used (e.g., Automated exposure control, adjustment of the mA and/or kV according to patient size, use of iterative reconstruction technique). IV CONTRAST: Isovue-300, 80 mL. COMPARISON: None. FINDINGS: Lung bases: Clear Liver: Left hepatic lobe nodule of decreased attenuation measuring 1.7 x 1.4 cm, axial image 24. Gallbladder: Unremarkable. Spleen: Unremarkable. Pancreas: Unremarkable. Adrenals: Unremarkable. Kidneys: Right posterior superior pole cyst measuring 3.7 x 3.2 cm, axial image 44. Multiple left perirenal cysts. Bladder: Moderately decompressed. Reproductive Organs: Mild prostatomegaly. Bowel: Unremarkable. Appendix: Appendix measures 0.62 cm in diameter, axial image 82. Lymph nodes: No suspicious lymph node enlargement. Vasculature: Phleboliths in the left hemipelvis. Peritoneum / Retroperitoneum: No ascites. No free air. Bones: Multilevel spondylosis. Severe facet arthropathy, lumbar spine. Severe degenerative disc disease at L5-S1. CT/Abdomen/Pelvis W IV Cont ONLY IMPRESSION: 1. Right renal cyst. 2. Left paravertebral cysts. 3. Left hepatic lobe cyst. 4. Other nonacute findings detailed above. Reading Location: [facility]
[2024-05-06 18:42] LABS: Bacteria 0 SEEN /hpf (None Seen); Mucous, Urine 0 SEEN /hpf (<or=2+); Red Blood Cells-Urine 0 SEEN /hpf (0-5); Squamous Epithelial Cells - UA 0 SEEN /hpf (0-5); White Blood Cells 0 SEEN /hpf (0-5)
[2024-05-06 18:46] LABS: Absolute Neutrophil Count 6.3 X10^3/uL (2.0-7.7); Basophil# 0.07 X10^3/uL; Basophil% 0.8 % (0-1); Eosinophil# 0.18 X10^3/uL; Eosinophils% 2.2 % (0-5); Hematocrit 39.9 % (40-54); Hemoglobin 13.4 g/dL (13.0-16.5); Lymphocyte % 13.2 % (19-41); Mean Corp Hgb Conc 33.6 g/dL (32-36); Mean Corpuscular Volume 89.3 fL (80-94); Mean Platelet Vol. 9.9 fl (6.2-12.0); Monocyte# 0.65 X10^3/uL; Monocyte% 7.8 % (0-10); NRBC Flagged by Analyzer 0 % (0-5); Neutrophil # 6.29 X10^3/uL (2.7-7.7); Neutrophil % 75.8 % (47-70); Platelet Count 243 K/mm3 (150-450); RBC Distribution Width CV 13.1 % (11.6-14.6); RBC Distribution Width SD 42.9 fl (35.1-43.9); Red Blood Count 4.47 M/mm3 (4.6-6.2); White Blood Count 8.3 K/mm3 (4.4-11.0)
[2024-05-06 18:47] LABS: Color, Urine Yellow (Yellow); Glucose, Dipstick Normal (Normal); Ketone-Dipstick 15 mg/dl (Negative); Leukocyte Esterase-Dipstick 25 /ul (Negative); Nitrite-Dipstick Negative (Negative); Occult Blood-Urine 10 /ul (Negative); Protein-Dipstick 15 mg/dl (Negative); Specific Gravity, Urine 1.025 (1.002-1.030); Urine Bilirubin Dipstick Negative (Negative); Urine Clarity Clear (Clear); Urine Urobilinogen Normal (Normal)
[2024-05-06 19:03] LABS: ALB/GLOB Ratio 0.9 RATIO (0.9-2.4); AST(SGOT) 14 U/L (15-37); Alanine Aminotransfer ALT/SGPT 19 U/L (16-61); Albumin, Serum 3.5 g/dL (3.2-5.0); Alkaline Phosphatase 86 U/L (45-117); Anion Gap 7 (5-15); BUN 27 mg/dL (7-18); BUN/Creat Ratio 31.7 RATIO (10-20); Calcium,Total 8.9 mg/dL (8.5-10.1); Chloride 106 mmol/L (98-107); Creatinine, Serum 0.85 mg/dL (0.70-1.30); EST Glomerular Filtration Rate 94 mL/min (>60); Est Glom Filt Rate - Afr Amer 114 mL/min (>60); Estimated Creatinine Clearance 86.13 ml/min; Globulin 3.7 g/dL (2.2-4.2); Glucose 112 mg/dL (74-106); Lipase 29 U/L (13-75); Protein, Total 7.2 g/dL (6.4-8.2); Sodium Level 139 mmol/L (136-145)
[2024-05-06 19:53] VITALS: BP 166/98; PULSE 57; RESP 16; TEMP 36.9; O2SAT 97
== END 2024-05-06 19:54 | disposition home or self-care (01) ==
PROVIDERS: Nurse Practitioner; Emergency Provider Emergency Medicine; PCP Family Medicine; Visit Provider Emergency Medicine
DX: K59.00 Constipation, unspecified (principal)
CPT/HCPCS: 74177; 80053; 81001; 83690; 85025; 99282; Q9967; A4216

== ENCOUNTER 2024-08-05 13:05 | Inpatient (IN) | payer OTHER, SELFPAY ==
[2024-08-05] VITALS (18 sets, daily range): BP systolic 96–144; BP diastolic 61–98; PULSE 58–90; RESP 12–18; TEMP 36.3–37.1; O2SAT 95–100; BMI 25.0; BMI 24.0
--- NOTE | 2024-08-05 13:21 | CT_ITS ---
PROCEDURE: ABDOMEN/PELVIS W IV CONT ONLY 08/05/2024 REASON FOR EXAM: ABDOMINAL PAIN TECHNIQUE: Abdomen and pelvis CT with intravenous contrast. Coronal and Sagittal reconstruction series were provided. PATIENT PREPARATION: Per protocol ORAL CONTRAST TYPE: None. CONTRAST: Isovue 370 VOLUME: 100 mL One or more dose reduction techniques were used (e.g., Automated exposure control, adjustment of the mA and/or kV according to patient size, use of iterative reconstruction technique. RADIATION DOSE SUMMARY: CTDlvol: 40 mGy DLP: 1000 mGycm COMPARISON: CT abdomen pelvis 05/06/2024. FINDINGS: Lung bases: Bibasilar atelectasis. The heart is normal in size. Liver: The liver is normal in size with tiny hepatic cysts and additional hypodensities. The major portal veins are patent. No biliary ductal dilation. Gallbladder: No radiopaque stones within the gallbladder. Spleen: Normal size. Pancreas: Unremarkable. Adrenals: No adrenal mass. Kidneys: Right renal cysts and left parapelvic cysts. No hydronephrosis or nephrolithiasis. Bladder: Distended and unremarkable. Reproductive Organs: Unremarkable. Bowel: Punctate gas within the D1 segment of the duodenum with mild duodenal thickening (series 2, image 32). The bowel loops are nondilated. No ascites or pneumoperitoneum. Normal appendix. Lymph nodes: No suspicious lymph node enlargement. Vasculature: Mild mixed atherosclerotic plaque throughout the aortoiliac vessels. Bones: Thoracolumbar spondylosis with mild multilevel vertebral body height loss. Severe degenerative disc disease at L5-S1, unchanged. CT/Abdomen/Pelvis W IV Cont ONLY IMPRESSION: 1. Punctate gas within the proximal duodenum with mild duodenal thickening, whi ch is nonspecific and may represent duodenitis or non perforated duodenal ulcer. 2. Otherwise unremarkable CT abdomen pelvis. Reading Location: [id number]
--- NOTE | 2024-08-05 13:21 | EKG12_ITS ---
Test Reason : DIZZINESS/SYNCOPE Blood Pressure : */* mmHG Vent. Rate : 62 BPM Atrial Rate : 62 BPM P-R Int : 144 ms QRS Dur : 96 ms QT Int : 394 ms P-R-T Axes : 58 -16 -18 degrees QTcB Int : 399 ms Normal sinus rhythm Incomplete right bundle branch block Minimal voltage criteria for LVH, may be normal variant ( R in aVL ) Nonspecific ST abnormality Abnormal ECG Confirmed by Velasquez Vega ([id number]), editorial writer WESLEY ASTORGA ([id number]) on 08/11/2024 12:55:07 PM Referred By: KAMARI Confirmed By: Velasquez Vega
--- NOTE | 2024-08-05 13:22 | EX.ED.DYSGE1 ---
HPI History of Present Illness Chief Complaint: Abd Pain Narrative Narrative: 69-year-old male states he has been having problems with abdominal pain for the last few months. This morning, he started having abdominal pain again. It felt more like cramping. 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 His states he looked pale all morning. He denies any chest pain or shortness of breath, but states that he was walking up his lawn, when he felt weak in the knees and collapsed. He was trying to get some home remedy to help with his abdominal cramping. 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 He was ordered by EMS that he had passed out twice within 5 minutes of each other for a very brief period of time. Patient states his abdominal cramping is improving, but he feels mildly weak. He states he has not passed out previously, although his problem list states that he has had syncope in the past. PFSH PFS Home Medications ?Medication ?Instructions ?Recorded ?Last Taken ?Type aspirin 81 mg chewable tablet 81 mg PO DAILY heart health 01/22/20 08/05/24 History multivitamin 1 tab PO DAILY supplement 01/22/20 08/05/24 History omega-3 fatty acids 1,000 mg 2,000 mg PO BID supplement 01/22/20 08/05/24 History capsule turmeric 450 mg-turmeric root 1 cap PO DAILY supplement 01/22/20 08/05/24 History extract 50 mg capsule polyethylene glycol 3350 17 17 g PO DAILY PRN laxative effect 08/05/24 08/02/24 History gram/dose oral powder (ClearLax) psyllium husk 0.4 gram capsule 0.8 g PO BID 08/05/24 08/05/24 History (Daily Fiber) Allergy/AdvReac Type Severity Reaction Status Date / Time Penicillins AdvReac PT UNABLE Verified 08/05/24 13:12 TO RESPOND-NEEDS F/U Family History Father Myocardial infarction Mother CVA (cerebral vascular accident) Surgical History H/O shoulder surgery History of repair of hiatal hernia Social History Smoking Status: Never smoker alcohol intake: never ROS ROS ED ROS Narrative Constitutional: No fever, no chills. Cardiovascular: No chest pain. No palpitations. No pedal edema. Respiratory: No cough, no shortness of breath. Abdominal: Positive abdominal cramping abdominal pain. Positive nausea. No vomiting. Genitourinary: No dysuria. No hematuria. Musculoskeletal: No myalgias. No arthralgias. Neurologic: No headaches. No dizziness. Positive lightheadedness. 2 episodes of brief syncope within 5 minutes of each other. EXAM Physical Exam Narrative Exam Narrative: Afebrile. Vital signs noted. HEENT: Normocephalic. Atraumatic. PERRL, EOMI. Neck soft and supple. No point tenderness or step off. Cardiovascular: Regular rate and rhythm. No murmurs, rubs, or gallops appreciated. Respiratory: No tachypnea. Lungs clear to auscultation bilaterally. Gastrointestinal: Abdomen soft, nontender, with normoactive bowel sounds. No rebound or guarding. Neurological: Awake. Alert. Nonfocal, nonlateralizing. Moves all extremities. Skin: No rash. Normal color. No pallor. Musculoskeletal: No pedal edema. Full range of motion extremities. Const Vital Signs: 08/05/24 13:06 08/05/24 13:30 08/05/24 13:37 Temperature 98.8 F Temperature Source Oral Pulse Rate 74 62 Pulse Rate [Lying] 60 Pulse Rate [Sitting (for 1 minute prior to obtaining)] 62 Pulse Rate [Standing (for 1 minute prior to obtaining)] 90 Respiratory Rate 13 14 Blood Pressure 121/70 H Blood Pressure [Lying] 118/73 Blood Pressure [Sitting (for 1 minute prior to obtaining)] 126/69 H Blood Pressure [Standing (for 1 minute prior to obtaining)] 96/61 Blood Pressure Mean 87 Blood Pressure Mean [Lying] 88 Blood Pressure Mean [Sitting (for 1 minute prior to obtaining)] 88 Blood Pressure Mean [Standing (for 1 minute prior to obtaining)] 72 Pulse Ox 99 98 Oxygen Delivery Method Room Air 08/05/24 13:45 08/05/24 14:00 08/05/24 14:15 Temperature Temperature Source Pulse Rate 58 L Pulse Rate [Lying] Pulse Rate [Sitting (for 1 minute prior to obtaining)] Pulse Rate [Standing (for 1 minute prior to obtaining)] Respiratory Rate 12 Blood Pressure 123/84 H 121/75 H Blood Pressure [Lying] Blood Pressure [Sitting (for 1 minute prior to obtaining)] Blood Pressure [Standing (for 1 minute prior to obtaining)] Blood Pressure Mean 96 88 Blood Pressure Mean [Lying] Blood Pressure Mean [Sitting (for 1 minute prior to obtaining)] Blood Pressure Mean [Standing (for 1 minute prior to obtaining)] Pulse Ox 99 Oxygen Delivery Method 08/05/24 14:30 08/05/24 14:45 Temperature Temperature Source Pulse Rate 61 64 Pulse Rate [Lying] Pulse Rate [Sitting (for 1 minute prior to obtaining)] Pulse Rate [Standing (for 1 minute prior to obtaining)] Respiratory Rate 13 13 Blood Pressure 133/77 H 132/79 H Blood Pressure [Lying] Blood Pressure [Sitting (for 1 minute prior to obtaining)] Blood Pressure [Standing (for 1 minute prior to obtaining)] Blood Pressure Mean 94 94 Blood Pressure Mean [Lying] Blood Pressure Mean [Sitting (for 1 minute prior to obtaining)] Blood Pressure Mean [Standing (for 1 minute prior to obtaining)] Pulse Ox 99 100 Oxygen Delivery Method MDM MDM MDM Narrative Medical decision making narrative: Patient states that he had a CT scan performed in May, approximately 3 months ago. He has been having ongoing abdominal issues. It sounds more like he had a vasovagal episode with a vasovagal syncope. Differential diagnosis also includes dehydration versus other electrolyte abnormality versus cardiac syncope. He had no chest pain but I will obtain an EKG. Additionally, orthostatics will be obtained and he will be bolused normal saline [address] imaging will be obtained as well. I was informed by the RN that the patient is orthostatic positive. He was bolused normal saline intravenously. I reviewed his laboratory work from today and he has a white count of 12.1 with hemoglobin down to 8.9 when compared to prior laboratories from a few months ago. Patient denied any hematemesis or black stool. Looking at his BUN is elevated at 48 with creatinine 0.79. Glucose elevated at 180 but normal anion gap of 7. Urinalysis is negative for infection with 5 ketones. There are 0-5 WBCs. I do not feel antibiotics are indicated. Patient states that he was feeling improved after IV fluids. Of note, his did state that he had black stool today although he denied it. My concern is for upper GI bleeding with elevated BUN, orthostatic positive, in combination with review of the CT of the abdomen and pelvis with IV contrast which comments on small punctate air in the duodenum and that it is consistent with duodenitis versus nonperforated ulcer. As I have concern for upper GI bleeding from probable ulcer in the duodenum, I discussed patient with Dr. Avendano for GI bleeding. It was felt that patient could be admitted to medicine here. I then discussed patient with . He Will Be Started on Pantoprazole Drip/Continuous Infusion. Disposition Is Admit to Medical Surgical Floor in Stable Condition. History & Record Review Discussion w/independent historian: EMS personnel, Patient and Family Additional record(s) reviewed:: Prior labs Lab Data Attestation: I reviewed the patient's lab results. Labs: Laboratory Results - last 24 hr 08/05/24 08/05/24 12:40 14:26 WBC 12.1 H RBC 2.95 L Hgb 8.9 L Hct 26.8 L MCV 90.8 MCH 30.2 MCHC 33.2 RDW Std Deviation 47.8 H RDW Coeff of Edna 14.4 Plt Count 281 MPV 9.7 Immature Gran % (Auto) 0.700 Neut % (Auto) 89.3 H Lymph % (Auto) 6.3 L Ashley % (Auto) 3.2 Eos % (Auto) 0.2 Baso % (Auto) 0.3 Absolute Neuts (auto) 10.8 H Absolute Lymphs (auto) 0.76 L Nucleated RBC % 0 Sodium 138 Potassium 4.1 Chloride 107 Carbon Dioxide 23.8 Anion Gap 7 BUN 48 H Creatinine 0.76 Estim Creat Clear Calc 91.51 Est GFR (MDRD) Non-Af 97 BUN/Creatinine Ratio 62.8 H Glucose 180 H Calcium 8.3 Urine Color Yellow Urine Clarity Clear Urine pH 5.0 Ur Specific [place] 1.020 Urine Protein 15 H Urine Glucose (UA) Normal Urine Ketones 5 H Urine Occult Blood Negative Urine Nitrite Negative Urine Bilirubin Negative Urine Urobilinogen Normal Ur Leukocyte Esterase Negative Urine RBC 0-5 SEEN Urine WBC 0-5 SEEN Ur Squamous Epith Cells 0 SEEN Urine Bacteria RARE Urine Mucus 0 SEEN Radiography Diagnostic Testing: Clinical Impression(s) from Imaging Studies Abdomen/Pelvis CT 08/05/24 13:21 IMPRESSION: 1. Punctate gas within the proximal duodenum with mild duodenal thickening, which is nonspecific and may represent duodenitis or non perforated duodenal ulcer. 2. Otherwise unremarkable CT abdomen pelvis. Reading Location: [id number] Discharge Plan Dx/Rx/DC Orders Clinical Impression: Syncope, Orthostatic hypotension, Abdominal pain, Duodenal ulcer Disposition Disposition: Acute Care Hospital [facility]
[2024-08-05] MEDS: 0.9% Normal Saline (1000mL) 1,000 ML 1000 ML IV (13:27)
[2024-08-05 13:30] LABS: Absolute Lymphocyte Count 0.76 X10^3/uL (0.83-4.51); Absolute Neutrophil Count 10.8 X10^3/uL (2.0-7.7); Basophil# 0.04 X10^3/uL; Basophil% 0.3 % (0-1); Eosinophil# 0.03 X10^3/uL; Eosinophils% 0.2 % (0-5); Hematocrit 26.8 % (40-54); Hemoglobin 8.9 g/dL (13.0-16.5); Lymphocyte # 0.76 X10^3/ul (0.83-4.51); Lymphocyte % 6.3 % (19-41); Mean Corp Hgb Conc 33.2 g/dL (32-36); Mean Corpuscular Hgb 30.2 pg (27.0-32.0); Mean Corpuscular Volume 90.8 fL (80-94); Mean Platelet Vol. 9.7 fl (6.2-12.0); Monocyte# 0.39 X10^3/uL; Monocyte% 3.2 % (0-10); NRBC Flagged by Analyzer 0 % (0-5); Neutrophil # 10.83 X10^3/uL (2.7-7.7); Neutrophil % 89.3 % (47-70); Platelet Count 281 K/mm3 (150-450); RBC Distribution Width CV 14.4 % (11.6-14.6); RBC Distribution Width SD 47.8 fl (35.1-43.9); Red Blood Count 2.95 M/mm3 (4.6-6.2); White Blood Count 12.1 K/mm3 (4.4-11.0)
[2024-08-05 13:47] LABS: Anion Gap 7 (5-15); BUN 48 mg/dL (4-19); BUN/Creat Ratio 62.8 RATIO (10-20); Calcium,Total 8.3 mg/dL (7.6-11.0); Carbon Dioxide 23.8 mmol/L (21.0-32.0); Chloride 107 mmol/L (98-108); Creatinine, Serum 0.76 mg/dL (0.70-1.20); EST Glomerular Filtration Rate 97 (>60); Estimated Creatinine Clearance 91.51 ml/min (50-250); Glucose 180 mg/dL (70-99); Potassium 4.1 mmol/L (3.3-5.1); Sodium Level 138 mmol/L (133-145)
[2024-08-05] MEDS: 0.9% Normal Saline (1000mL) 1,000 ML 999 ML IV (14:25)
[2024-08-05 14:32] LABS: Mucous, Urine 0 SEEN /hpf (<or=2+); Squamous Epithelial Cells - UA 0 SEEN /hpf (0-5)
[2024-08-05 14:42] LABS: Color, Urine Yellow (Yellow); Glucose, Dipstick Normal (Normal); Ketone-Dipstick 5 mg/dl (Negative); Leukocyte Esterase-Dipstick Negative /ul (Negative); Nitrite-Dipstick Negative (Negative); Occult Blood-Urine Negative /ul (Negative); Protein-Dipstick 15 mg/dl (Negative); Urine Bilirubin Dipstick Negative (Negative); Urine Clarity Clear (Clear); Urine Urobilinogen Normal (Normal)
[2024-08-05 14:48] LABS: Bacteria RARE /hpf (None Seen); Red Blood Cells-Urine 0-5 SEEN /hpf (0-5); White Blood Cells 0-5 SEEN /hpf (0-5)
--- NOTE | 2024-08-05 15:43 | HP.PCM.HOS_ITS ---
HPI - General General Date of Admission: 08/05/24 HPI Narrative LAINE GARCIA, is a 69 M who presents to the hospital after 2 syncopal episodes at home and an episode of maroon-colored stools. He has been having abdominal discomfort with increasing epigastric pain over the last several months. It feels likely due to constipation. He is currently taking a daily aspirin for what he says are blood clots, he had blood clots in 2016 after surgery for a hiatal hernia and then his doctor told him to continue aspirin after his shoulder surgery repair to prevent further blood clots. CT scan today demonstrates duodenal ulcer with possible free air though is not having any significant abdominal pain at the moment. Hemoglobin did drop from 13.4 on 05/06/2024 to 8.9 today. He is otherwise hemodynamically stable and his vital signs are all stable. [facility] Medical History (Updated 08/05/24 @ 15:[address] Derrick Yadav MD) Mitral valve prolapse History of DVT (deep vein thrombosis) Home Medications ?Medication ?Instructions ?Recorded ?Last Taken ?Type aspirin 81 mg chewable tablet 81 mg PO DAILY heart hea lth 01/22/20 08/05/24 History multivitamin 1 tab PO DAILY supplement 08/05/24 History omega-3 fatty acids 1,000 mg 2,000 mg PO BID supplemen t 01/22/20 08/05/24 History capsule turmeric 450 mg-turmeric root 1 cap PO DAILY supplemen t 01/22/20 08/05/24 History extract 50 mg capsule polyethylene glycol 3350 17 17 g PO DAILY PRN laxative effect 08/05/24 08/02/24 History gram/dose oral powder (ClearLax) psyllium husk 0.4 gram capsule 0.8 g PO BID 08/05/24 0 08/05/24 History (Daily Fiber) Allergy/AdvReac Type Severity Reaction Status Date / Time Penicillins AdvReac PT UNABLE Verified 08/05/24 13:12 TO RESPOND-NEEDS F/U Family History Father Myocardial infarction Mother CVA (cerebral vascular accident) Surgical History H/O shoulder surgery History of repair of hiatal hernia Social History Smoking Status: Never smoker alcohol intake: never ROS Constitutional Constitutional: Denies chills, fatigue, fever(s) or malaise Eyes Eyes: Denies blurry vision ENT HEENT: Denies headache(s) or nasal discharge Cardiovascular Cardiovascular: Reports syncope; Denies chest pain or dyspnea on exertion Respiratory/Chest Respiratory/Chest: Denies cough, shortness of breath at rest or shortness of breath with exertion Gastrointestinal Gastrointestinal: Reports abdominal pain and melena; Denies constipation, diarrhea, nausea or vomiting Genitourinary Genitourinary: Denies dysuria Neurologic Neurologic: Denies focal weakness, numbness or tremor(s) Psychiatric Psychiatric: Denies anxiety or depression Vital Signs Vital Signs Vital Signs: 08/05/24 13:06 08/05/24 13:30 08/05/24 13:37 Temperature 98.8 F Temperature Source Oral Pulse Rate 74 62 Pulse Rate [Lying] 60 Pulse Rate [Sitting (for 1 minute prior to obtaining)] 62 Pulse Rate [Standing (for 1 minute prior to obtaining)] 90 Respiratory Rate 13 14 Blood Pressure 121/70 H Blood Pressure [Lying] 118/73 Blood Pressure [Sitting (for 1 minute prior to obtaining)] 126/69 H Blood Pressure [Standing (for 1 minute prior to obtaining)] 96/61 Blood Pressure Mean 87 Blood Pressure Mean [Lying] 88 Blood Pressure Mean [Sitting (for 1 minute prior to obtaining)] 88 Blood Pressure Mean [Standing (for 1 minute prior to obtaining)] 72 Pulse Ox 99 98 Oxygen Delivery Method Room Air 08/05/24 13:45 08/05/24 14:00 08/05/24 14:15 Temperature Temperature Source Pulse Rate 58 L Pulse Rate [Lying] Pulse Rate [Sitting (for 1 minute prior to obtaining)] Pulse Rate [Standing (for 1 minute prior to obtaining)] Respiratory Rate 12 Blood Pressure 123/84 H 121/75 H Blood Pressure [Lying] Blood Pressure [Sitting (for 1 minute prior to obtaining)] Blood Pressure [Standing (for 1 minute prior to obtaining)] Blood Pressure Mean 96 88 Blood Pressure Mean [Lying] Blood Pressure Mean [Sitting (for 1 minute prior to obtaining)] Blood Pressure Mean [Standing (for 1 minute prior to obtaining)] Pulse Ox 99 Oxygen Delivery Method 08/05/24 14:30 08/05/24 14:45 Temperature Temperature Source Pulse Rate 61 64 Pulse Rate [Lying] Pulse Rate [Sitting (for 1 minute prior to obtaining)] Pulse Rate [Standing (for 1 minute prior to obtaining)] Respiratory Rate 13 13 Blood Pressure 133/77 H 132/79 H Blood Pressure [Lying] Blood Pressure [Sitting (for 1 minute prior to obtaining)] Blood Pressure [Standing (for 1 minute prior to obtaining)] Blood Pressure Mean 94 94 Blood Pressure Mean [Lying] Blood Pressure Mean [Sitting (for 1 minute prior to obtaining)] Blood Pressure Mean [Standing (for 1 minute prior to obtaining)] Pulse Ox 99 100 Oxygen Delivery Method Weight Weight: 179 lb 10.828 oz Body Mass Index (BMI) 25.0 Physical Exam Narrative General: Alert, Oriented x3, Cooperative, No apparent distress HEENT: Atraumatic, PERRLA, EOMI, Normocephalic Oral: Moist Mucosa Neck: Supple, No JVD Lungs: Diminished, Normal air movement, No rhonchi, No wheeze, No rales Cardiovascular: Regular rate, Regular Rhythm, Normal S1, Normal S2, No murmurs Abdomen: Soft, Non Tender, Non-Distended, No Hepato-splenomegaly Extremities: No edema, Capillary Refill Less than 3 Seconds Skin: No rashes, No breakdown Musculoskeletal: No Tenderness to Palpation of Joints or Extremities Neurological: No focal neurological deficits, Motor Exam 5/5 strength throughout, Sensory exam intact to light touch and pain Psych/Mental Status: Normal Affect, Appropriate Results Lab / Micro Data 08/05/24 12:40 08/05/24 12:40 Labs: Laboratory Results - last 24 hr 08/05/24 12:40: WBC 12.1 H, RBC 2.95 L, Hgb 8.9 L, Hct 26.8 L, MCV 90.8, MCH 30.2, MCHC 33.2, RDW Std Deviation 47.8 H, RDW Coeff of Edna 14.4, Plt Count 281, MPV 9.7, Immature Gran % (Auto) 0.700, Neut % (Auto) 89.3 H, Lymph % (Auto) 6.3 L, [place] % (Auto) 3.2, Eos % (Auto) 0.2, Baso % (Auto) 0.3, Absolute Neuts (auto) 10.8 H, Absolute Lymphs (auto) 0.76 L, Nucleated RBC % 0, Sodium 138, Potassium 4.1, Chloride 107, Carbon Dioxide 23.8, Anion Gap 7, BUN 48 H, Creatinine 0.76, Estim Creat Clear Calc 91.51, Est GFR (MDRD) Non-Af 97, BUN/Creatinine Ratio 62.8 H, Glucose 180 H, Calcium 8.3 08/05/24 14:26: Urine Color Yellow, Urine Clarity Clear, Urine pH 5.0, Ur Specific [place] 1.020, Urine Protein 15 H, Urine Glucose (UA) Normal, Urine Ketones 5 H, Urine Occult Blood Negative, Urine Nitrite Negative, Urine Bilirubin Negative, Urine Urobilinogen Normal, Ur Leukocyte Esterase Negative, Urine RBC 0-5 SEEN, Urine WBC 0-5 SEEN, Ur Squamous Epith Cells 0 SEEN, Urine Bacteria RARE, Urine Mucus 0 SEEN Imaging Radiology Impression Abdomen/Pelvis CT 08/05/24 13:21 IMPRESSION: 1. Punctate gas within the proximal duodenum with mild duodenal thickening, which is nonspecific and may represent duodenitis or non perforated duodenal ulcer. 2. Otherwise unremarkable CT abdomen pelvis. Reading Location: [facility] Assessment & Plan Assessment/Plan (1) Duodenal ulcer: PLAN: Plan 1. Acute blood loss anemia secondary to an upper GI bleed from a duodenal ulcer resulting in orthostatic hypotension and syncope ? Continue with Protonix drip ? Will consult gastroenterology for EGD ? Continue with clear liquid diet ? Will recheck H&H this evening ? Discontinue aspirin as he will no longer needed since it is not indicated for history of DVT especially when that was provoked by hiatal hernia surgery in 2016 ? Continue with gentle IV fluids DVT: SCDs 55 minutes was spent on direct patient care, including documentation as well as chart review and collaboration with colleagues Charges/Coding Visit Charges Inpatient E&M: 03445 Init Hosp L2
[2024-08-05] MEDS: Pantoprazole Sodium 80 MG in 0.9% Normal Saline (100mL Bag) 80 ML 10 MG CONT INF (15:52)
--- NOTE | 2024-08-05 17:30 | PRE.ANES_ITS ---
ASA Classification* ASA Classification ASA Classification: 2 and E Assessment & Plan Anesthesia* Anesthesia Assessment Anesthesia Assessment: Discussed sedation and/or anesthesia options, risks, benefits, and alternatives with patient/parents/legal guardian/POA. Questions invited. The patient/parents/legal guardian/POA seems to understand and agrees to proceed with anesthesia plan. Reviewed the physical assessment, medical history, allergy history and patient home medications list prior to surgery/procedure/anesthetic and documented any changes. Performed airway and anesthesia risk assessments. Anesthesia Type Anesthesia Type: MAC Anesthesia Focused Assessment* Temperature: 98.2 F Pulse Rate: 59 Blood Pressure: 127/93 Respiratory Rate: 16 Pulse Ox: 100 Airway Assessment Mouth opens: >3 cm Mallampati Score: II Focused Labs Anesthesia Preop lab: CBC WBC 12.1 K/mm3 (4.4-11.0) H 08/05/24 12:40 5 RBC 2.95 M/mm3 (4.6-6.2) L 08/05/24 12:40 08/05/24 Hgb 8.9 g/dL (13.0-16.5) L 08/05/24 12:40 08/05/24 Hct 26.8 % (40-54) L 08/05/24 12:40 08/05/24 Plt Count 281 K/mm3 (150-450) 08/05/24 12:40 08/05/24 CHEMISTRY Potassium 4.1 mmol/L (3.3-5.1) 08/05/24 12:40 08/05/24 Sodium 138 mmol/L (133-145) 08/05/24 12:40 08/05/24 Magnesium 2.1 mg/dL (1.6-2.6) 01/22/20 14:45 01/22/20 BUN 48 mg/dL (4-19) H 08/05/24 12:40 08/05/24 Creatinine 0.76 mg/dL (0.70-1.20) 08/05/24 12:40 08/05/24 Glucose 180 mg/dL (70-99) H 08/05/24 12:40 08/05/24 COAG Pre-Assessment Diagnosis/Proposed Procedure Planned Operative Procedure(s): EGD Anesthesia History 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 When Was Last Pacemaker Check QUESTION #4 FULL TEXT: You/Your Family Experience fever (hyperthermia) with Anesthesia Last Oral Intake Last Oral intake: Last Oral Intake NPO since 16:30 08/05/24 16:56 Meds taken in AM with sips of water? Meds patient instructed to take am of surgery PONV PONV - automotive alignment specialist: PONV - automotive alignment specialist Female HX of Motion Sickness HX of N/V After Surgery Non-Smoker Duration of Surgery greater than 60 minutes Number of Risk Factors PONV Score Height & Weight Height & Weight: Anesthesia: Height & Weight Height 5 ft 10.87 in 08/05/24 16:56 Weight: 77.8 kg 08/05/24 16:56 Body Mass Index (BMI) 24.0 08/05/24 16:56 Respiratory Assessment Respiratory Assessment - automotive alignment specialist: Respiratory Tract Infection Hx - automotive alignment specialist Hx Respiratory Tract Infection No 08/05/24 16:52 STOP Sleep Apnea STOP Sleep Apnea - automotive alignment specialist: STOP Sleep Apnea - automotive alignment specialist Hx Hypertension No 08/05/24 16:27 Hx Sleep Apnea No 08/05/24 16:27 CPAP BIPAP Do you snore loudly (louder No 08/05/24 16:27 than talking or can be heard Do you often feel tired/ No 08/05/24 16:27 fatigued/ sleepy during daytime? Has anyone observed you stop No 08/05/24 16:27 breathing during sleep? STOP Results Negative 08/05/24 16:27 QUESTION #5 FULL TEXT : Do you snore loudly (louder than talking or can be heard through closed doors)? 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 Specify any problems Hx of Preganancy in last 3 N/A 08/05/24 16:27 Months Nurse Filling Out Transfusion JDIAL 08/05/24 16:27 & Questions: Date: 08/05/24 08/05/24 16:27 Time: 16:08/05/24 16:27 Patient unable to answer at this time (ie. confused, unrespo /Reproduction History /Reproductive History - automotive alignment specialist: /Reproductive Hx- automotive alignment specialist Hx Now No 08/05/24 16:52 Gestational Age (in weeks): EDC: Hx Hx Para Hx Section SAB No 08/05/24 16:52 Active Medications Active Medications: Current Medications Generic Name Dose Route Start Last Admin Trade Name Freq PRN Reason Stop Dose Admin Pantoprazole Sodium 80 mg/ 100 mls @ 10 mls/hr 08/05/24 15:30 08/05/24 15:52 Sodium Chloride CONT INF 10 mls/hr Q10H MARSHA Administration Sodium Chloride 1,000 mls @ 75 mls/hr 08/05/24 16:19 IV .[id number] MARSHA Sodium Chloride 10 - 40 ml 08/05/24 16:33 0.9% Saline Lock 10 Ml Syringe IV UD PRN SALINE FLUSH PFSH Medical History History of DVT (deep vein thrombosis) Mitral valve prolapse Home Medications ?Medication ?Instructions ?Recorded ?Last Taken ?Type aspirin 81 mg chewable tablet 81 mg PO DAILY heart hea lth 01/22/20 08/05/24 History multivitamin 1 tab PO DAILY supplement 08/05/24 History omega-3 fatty acids 1,000 mg 2,000 mg PO BID supplemen t 01/22/20 08/05/24 History capsule turmeric 450 mg-turmeric root 1 cap PO DAILY supplemen t 01/22/20 08/05/24 History extract 50 mg capsule polyethylene glycol 3350 17 17 g PO DAILY PRN laxative effect 08/05/24 08/02/24 History gram/dose oral powder (ClearLax) psyllium husk 0.4 gram capsule 0.8 g PO BID 08/05/24 0 08/05/24 History (Daily Fiber) Allergy/AdvReac Type Severity Reaction Status Date / Time Penicillins AdvReac PT UNABLE Verified 08/05/24 13:12 TO RESPOND-NEEDS F/U Family History Father Myocardial infarction Mother CVA (cerebral vascular accident) Surgical History H/O shoulder surgery History of repair of hiatal hernia Social History Smoking Status: Never smoker alcohol intake: never Review of Systems (Anesthesia) ROS Narrative System reviewed and no additional complaints, except as documented.
--- NOTE | 2024-08-05 17:32 | EX.PCM.CON.G ---
HPI Consult Data Date of Consult: 08/05/24 HPI Narrative Reason for Consultation: GI bleed HPI Narrative: LAINE GARCIA, is a 69 M who presents 69-year-old male states he has been having problems with abdominal pain for the last few months. This morning, he started having abdominal pain again. It felt more like cramping. 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 His states he looked pale all morning. He denies any chest pain or shortness of breath, but states that he was walking up his lawn, when he felt weak in the knees and collapsed. He was trying to get some home remedy to help with his abdominal cramping. 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 He was ordered by EMS that he had passed out twice within 5 minutes of each other for a very brief period of time. Patient states his abdominal cramping is improving, but he feels mildly weak. He had a visit to the ER for severe abdominal pain on 05.06.24, had an abd/pelvis CT that showed significant stool and gas burden without signs of obstruction. He reports reduced appetite, abdominal bloating and sharp cramping when constipation is the most severe. He reports his last colonoscopy was in 2016 with a 10 year recall. His repeat today CT/Abdomen/Pelvis W IV Cont ONLY IMPRESSION: 1. Punctate gas within the proximal duodenum with mild duodenal thickening, which is nonspecific and may represent duodenitis or non perforated duodenal ulcer. [facility] Medical History History of DVT (deep vein thrombosis) Mitral valve prolapse Home Medications ?Medication ?Instructions ?Recorded ?Last Taken ?Type aspirin 81 mg chewable tablet 81 mg PO DAILY heart health 01/22/20 08/05/24 History multivitamin 1 tab PO DAILY supplement 01/22/20 08/05/24 History omega-3 fatty acids 1,000 mg 2,000 mg PO BID supplement 01/22/20 08/05/24 History capsule turmeric 450 mg-turmeric root 1 cap PO DAILY supplement 01/22/20 08/05/24 History extract 50 mg capsule polyethylene glycol 3350 17 17 g PO DAILY PRN laxative effect 08/05/24 08/02/24 History gram/dose oral powder (ClearLax) psyllium husk 0.4 gram capsule 0.8 g PO BID 08/05/24 08/05/24 History (Daily Fiber) Allergy/AdvReac Type Severity Reaction Status Date / Time Penicillins AdvReac PT UNABLE Verified 08/05/24 13:12 TO RESPOND-NEEDS F/U Family History Father Myocardial infarction Mother CVA (cerebral vascular accident) Surgical History H/O shoulder surgery History of repair of hiatal hernia Social History Smoking Status: Never smoker alcohol intake: never ROS Constitutional Constitutional: Denies chills, fatigue, fever(s) or malaise Eyes Eyes: Denies blurry vision ENT HEENT: Denies headache(s) or nasal discharge Cardiovascular Cardiovascular: Reports syncope; Denies chest pain or dyspnea on exertion Respiratory/Chest Respiratory/Chest: Denies cough, shortness of breath at rest or shortness of breath with exertion Gastrointestinal Gastrointestinal: Reports abdominal pain and melena; Denies constipation, diarrhea, nausea or vomiting Genitourinary Genitourinary: Denies dysuria Neurologic Neurologic: Denies focal weakness, numbness or tremor(s) Psychiatric Psychiatric: Denies anxiety or depression Physical Exam Const alert, oriented x3, no apparent distress and healthy appearing General Appearance: cooperative GI normal to inspection, nondistended, normoactive bowel sounds, soft to palpation, non-tender and non-distended Percussion: normal to percussion Rectal Exam: deferred Lab / Micro Data 08/05/24 12:40 08/05/24 12:40 Labs: Laboratory Results - last 24 hr 08/05/24 12:40: WBC 12.1 H, RBC 2.95 L, Hgb 8.9 L, Hct 26.8 L, MCV 90.8, MCH 30.2, MCHC 33.2, RDW Std Deviation 47.8 H, RDW Coeff of Edna 14.4, Plt Count 281, MPV 9.7, Immature Gran % (Auto) 0.700, Neut % (Auto) 89.3 H, Lymph % (Auto) 6.3 L, [place] % (Auto) 3.2, Eos % (Auto) 0.2, Baso % (Auto) 0.3, Absolute Neuts (auto) 10.8 H, Absolute Lymphs (auto) 0.76 L, Nucleated RBC % 0, Sodium 138, Potassium 4.1, Chloride 107, Carbon Dioxide 23.8, Anion Gap 7, BUN 48 H, Creatinine 0.76, Estim Creat Clear Calc 91.51, Est GFR (MDRD) Non-Af 97, BUN/Creatinine Ratio 62.8 H, Glucose 180 H, Calcium 8.3 08/05/24 14:26: Urine Color Yellow, Urine Clarity Clear, Urine pH 5.0, Ur Specific [place] 1.020, Urine Protein 15 H, Urine Glucose (UA) Normal, Urine Ketones 5 H, Urine Occult Blood Negative, Urine Nitrite Negative, Urine Bilirubin Negative, Urine Urobilinogen Normal, Ur Leukocyte Esterase Negative, Urine RBC 0-5 SEEN, Urine WBC 0-5 SEEN, Ur Squamous Epith Cells 0 SEEN, Urine Bacteria RARE, Urine Mucus 0 SEEN Imaging Radiology Impression Abdomen/Pelvis CT 08/05/24 13:21 IMPRESSION: 1. Punctate gas within the proximal duodenum with mild duodenal thickening, which is nonspecific and may represent duodenitis or non perforated duodenal ulcer. 2. Otherwise unremarkable CT abdomen pelvis. Reading Location: [id number] Assessment & Plan Assessment/Plan (1) Duodenal ulcer: PLAN: Plan 69-year-old gentleman with no significant past medical history on turmeric and aspirin who presented to the ER back in May 2024 with abdominal pain and it only showed constipation. He was seen in the GI clinic on 07/25/2024 for abdominal pain and constipation. He comes in today with again worsening abdominal pain and now orthostatic with syncope and CT scan abdomen pelvis shows some air in the wall of the duodenum with inflammation around the D1 segment of the duodenum. Suspecting duodenal ulcer. He should undergo emergent EGD. He was explained alternatives, risk and benefits close, standing bleeding, fracture, subs, perforation, need for surgery . He will have an ASA of 3. Charges/Coding Visit Charges Inpatient E&M: 75938 Init Hosp L3
[2024-08-05] MEDS: 0.9% Normal Saline (Pres. free 10 ML Vial (18:10)
[2024-08-05] MEDS: Epinephrine (1 mg/ml) 1 MG/ML VIAL (18:10)
--- NOTE | 2024-08-05 18:40 | OP.CCLET_ITS ---
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 My impressions and recommendations are as follows: Impressions : - Normal esophagus. - No gross lesions in the entire stomach. - Spurting duodenal ulcers with a visible vessel. Injected. Treated with argon plasma coagulation (APC). - Non-bleeding duodenal ulcers with no stigmata of bleeding. Treated with argon plasma coagulation (APC). - No specimens collected. Recommendations : - [facility] for [facility]. - NPO except ice chips - Continue present medications. - No NSAIDs - Possible stent placement in the duodenum on 08/07/2024 My findings are described in the full procedure note, which is enclosed. If I can be of further assistance, please feel free to contact me at . Sincerely, Betito Avendano, 08/05/2024 6:38:47 PM This report has been signed electronically.
--- NOTE | 2024-08-05 18:40 | OP.EGD_ITS ---
Patient Name: Javi Ibarra Procedure Date: 08/05/2024 5:18 PM Date of : 1955 Age: 69 Procedure: Upper GI endoscopy Indications: Epigastric abdominal pain, Melena Providers: Betito Avendano DO Medicines: Monitored Anesthesia Care Patient Profile: This is a 69 year old male. Refer to note in patient chart for documentation of history and physical. Patient has symptoms of acute epigastric abdominal pain. Complications: No immediate complications. Procedure: Pre-Anesthesia Assessment: - Prior to the procedure, a History and Physical was performed, and patient medications and allergies were reviewed. The patient is competent. The risks and benefits of the procedure and the sedation options and risks were discussed with the patient. All questions were answered and informed consent was obtained. Patient identification and proposed procedure were verified by the physician in the pre-procedure area. Mental Status Examination: alert and oriented. Airway Examination: normal oropharyngeal airway and neck mobility. Respiratory Examination: clear to auscultation. CV Examination: normal. Prophylactic Antibiotics: The patient does not require prophylactic antibiotics. Prior Anticoagulants: The patient has taken no anticoagulant or antiplatelet agents except for NSAID medication. ASA Grade Assessment: II - A patient with mild systemic disease. After reviewing the risks and benefits, the patient was deemed in satisfactory condition to undergo the procedure. The anesthesia plan was to use monitored anesthesia care (MAC). Immediately prior to administration of medications, the patient was re-assessed for adequacy to receive sedatives. The heart rate, respiratory rate, oxygen saturations, blood pressure, adequacy of pulmonary ventilation, and response to care were monitored throughout the procedure. The physical status of the patient was re-assessed after the procedure. After obtaining informed consent, the endoscope was passed under direct vision. Throughout the procedure, the patient's blood pressure, pulse, and oxygen saturations were monitored continuously. The Endoscope was introduced through the mouth, and advanced to the third part of the duodenum. Small bowel enteroscopy was deemed necessary. The upper GI endoscopy was accomplished without difficulty. The patient tolerated the procedure well. Scope In: 5:58:25 PM Scope Out: 6:26:30 PM Total Procedure Duration Time 0 hours 28 minutes 5 seconds Findings: The examined esophagus was normal. No gross lesions were noted in the entire examined stomach. Five spurting cratered duodenal ulcers with a visible vessel were found in the duodenal bulb and in the first portion of the duodenum. The largest lesion was 30 mm in largest dimension. Area was successfully injected with 7 mL of a 0.1 mg/mL solution of epinephrine for drug delivery. Coagulation for hemostasis using argon plasma at 0.8 liters/minute and 50 river was successful. Estimated blood loss was minimal. Two non-bleeding cratered duodenal ulcers with no stigmata of bleeding were found in the second portion of the duodenum. The largest lesion was 20 mm in largest dimension. Coagulation for destruction of remaining portion of lesion using argon plasma at 0.3 liters/minute and 20 river was successful. Coagulation for bleeding prevention using argon plasma at 0.7 liters/minute and 30 river was successful. Estimated blood loss was minimal. Impression: - Normal esophagus. - No gross lesions in the entire stomach. - Spurting duodenal ulcers with a visible vessel. Injected. Treated with argon plasma coagulation (APC). - Non-bleeding duodenal ulcers with no stigmata of bleeding. Treated with argon plasma coagulation (APC). - No specimens collected. Recommendation: - Return patient to [facility] for ongoing care. - NPO except ice chips - Continue present medications. - No NSAIDs - Possible stent placement in the duodenum on 08/07/2024 Procedure Code(s): --- Professional --- 32872, Small intestinal endoscopy, enteroscopy beyond second portion of duodenum, not including ileum; with ablation of tumor(s), polyp(s), or other lesion(s) not amenable to removal by hot biopsy forceps, bipolar cautery or snare technique 87081, 59,51, Small intestinal endoscopy, enteroscopy beyond second portion of duodenum, not including ileum; with control of bleeding (eg, injection, bipolar cautery, unipolar cautery, laser, heater probe, stapler, plasma boat patcher plastic) 87105, Unlisted procedure, small intestine CPT copyright 2021 [employer]. All rights reserved. The codes documented in this report are preliminary and upon pharmacology teacher review may be revised to meet current compliance requirements. Betito Avendano DO 08/05/2024 6:38:47 PM This report has been signed electronically. Number of Addenda: 0 Note Initiated On: 08/05/2024 5:18 PM
--- NOTE | 2024-08-05 18:45 | PCM.POST.ANE ---
Anesthesia: Postop Eval I Current Vital Signs Temperature: 97.9 F Pulse Rate: 72 Blood Pressure: 144/84 Respiratory Rate: 16 Pulse Ox: 96 Oxygen Delivery Method: Room Air Assessment Airway patent: Yes Spontaneous unlabored respirations: Yes Mental status: Awake nausea: No Vomiting: No Anesthesia Complication: No Fluid Hydration Crystalloid volume administer (ml): 1,000 Total IV fluid infused: 1,000 Progress Note Anesthesia document: Postop Eval 1 completed: Yes
--- NOTE | 2024-08-05 18:46 | PCM.POSTANE2 ---
Anesthesia Postop Eval I Sum Postop Eval Completion status Anesthesia document: Postop Eval 1 completed: Yes Anesthesia Postop Eval I Summary Anesthesia Postop Eval I Summary: Anesthesia Postop Eval I: Assessment Summary Airway patent Yes 08/05/24 18:45 Spontaneous unlabored Yes 08/05/24 18:45 respirations Mental status Awake 08/05/24 18:45 nausea No 08/05/24 18:45 Vomiting No 08/05/24 18:45 Anesthesia Postop Eval I: Fluid Summary Crystalloid volume administer 1,000 08/05/24 18:45 (ml) Colloids volume administered ( ml) Blood Product volume administered (ml) Total IV fluid infused 1,000 08/05/24 18:45 Anesthesia Postop Eval I: Summary Notes Anesthesia Complication No 08/05/24 18:45 Anesthesia Complication Comment: Post-operative progress note Anesthesia: Postop Eval II Evaluation Mental status: Awake Pain Level: 0 nausea: No Vomiting: No
[2024-08-05] MEDS: 0.9% Normal Saline (1000mL) 1,000 ML 75 ML IV (20:15)
[2024-08-05 21:09] LABS: Hematocrit 24.6 % (40-54); Hemoglobin 8.1 g/dL (13.0-16.5)
[2024-08-05] MEDS: metroNIDAZOLE 500 MG/100 ML BAG 100 MG IV (22:04)
[2024-08-05] MEDS: oxyCODONE 5 MG Tablet PO (22:37)
[2024-08-05] MEDS: Ondansetron 4 MG/2 ML Vial IV (22:38)
[2024-08-05] MEDS: Ciprofloxacin 400 MG/200 ML BAG 200 MG IV (23:45)
[2024-08-06] VITALS (10 sets, daily range): BP systolic 92–140; BP diastolic 57–83; PULSE 57–84; RESP 16–97; TEMP 36.3–37.6; O2SAT 16–100
[2024-08-06] MEDS: oxyCODONE 5 MG Tablet PO ×4 (02:36→23:14)
[2024-08-06] MEDS: Pantoprazole Sodium 80 MG in 0.9% Normal Saline (100mL Bag) 80 ML 10 MG CONT INF ×2 (04:41→22:02)
[2024-08-06 04:49] LABS: Absolute Lymphocyte Count 0.49 X10^3/uL (0.83-4.51); Basophil# 0.02 X10^3/uL; Basophil% 0.1 % (0-1); Hematocrit 22.1 % (40-54); Hemoglobin 7.4 g/dL (13.0-16.5); Lymphocyte # 0.49 X10^3/ul (0.83-4.51); Lymphocyte % 3.2 % (19-41); Mean Corp Hgb Conc 33.5 g/dL (32-36); Mean Corpuscular Hgb 30.1 pg (27.0-32.0); Mean Corpuscular Volume 89.8 fL (80-94); Mean Platelet Vol. 9.6 fl (6.2-12.0); Monocyte# 0.65 X10^3/uL; Monocyte% 4.3 % (0-10); NRBC Flagged by Analyzer 0 % (0-5); Neutrophil # 13.98 X10^3/uL (2.7-7.7); Neutrophil % 91.7 % (47-70); POSITIVE DIFFERENTIAL YES; Platelet Count 221 K/mm3 (150-450); RBC Distribution Width CV 14.6 % (11.6-14.6); RBC Distribution Width SD 48.1 fl (35.1-43.9); Red Blood Count 2.46 M/mm3 (4.6-6.2); White Blood Count 15.3 K/mm3 (4.4-11.0)
[2024-08-06 04:53] LABS: Differential Indicated SCAN CRITERIA MET
[2024-08-06 05:11] LABS: Anion Gap 9 (5-15); BUN 28 mg/dL (4-19); BUN/Creat Ratio 42.7 RATIO (10-20); Calcium,Total 7.5 mg/dL (7.6-11.0); Carbon Dioxide 20.9 mmol/L (21.0-32.0); Chloride 110 mmol/L (98-108); Creatinine, Serum 0.67 mg/dL (0.70-1.20); EST Glomerular Filtration Rate 101 (>60); Estimated Creatinine Clearance 88.72 ml/min (50-250); Glucose 137 mg/dL (70-99); Potassium 3.4 mmol/L (3.3-5.1); Sodium Level 140 mmol/L (133-145)
[2024-08-06 05:29] LABS: Differential Comment SCANNED
[2024-08-06] MEDS: metroNIDAZOLE 500 MG/100 ML BAG 100 MG IV ×3 (06:07→20:24)
[2024-08-06] MEDS: Ciprofloxacin 400 MG/200 ML BAG 200 MG IV ×2 (09:18→20:26)
[2024-08-06] MEDS: 0.9% Normal Saline (1000mL) 1,000 ML 75 ML IV (09:25)
[2024-08-06] MEDS: Pantoprazole Sodium 40 MG Tablet PO (11:24)
--- NOTE | 2024-08-06 12:46 | PN_ITS ---
Subjective Subjective Patient seen and examined this morning. He had no active complaints at time of my review though later in the morning patient complained of feeling weak. He was admitted with a complaint of syncope and maroon-colored stools. He had also been having epigastric pain for several months prior to admission which was worsening. He had emergent EGD yesterday which showed bleeding peptic ulcer. Blood pressure down to 92/57 this morning. Review of systems otherwise negative. His was by his bedside. Objective Data Objective Data Vital Signs: Vital Signs Temp Pulse Resp BP Pulse Ox O2 Del Method 97.8 F 64 17 92/57 L 97 Room Air 08/06/24 12:38 08/06/24 12:38 08/06/24 12:38 08/06/24 12:38 08/06/24 12:38 08/06/24 12:38 Oxygen Delivery Method Room Air Weight: 171 lb 8.314 oz Body Mass Index (BMI) 24.0 Intake & Output: Intake and Output for Last 24 Hours 08/04/24 08/05/24 08/06/24 23:59 23:59 23:59 Intake Total 1999 1787.75 / 1787.75 Output Total 300 / 300 Balance 1999 1487.75 / 1487.75 Lab / Micro Data 08/06/24 04:18 08/06/24 04:18 Labs: Laboratory Results - last 24 hr 08/05/24 12:40: WBC 12.1 H, RBC 2.95 L, Hgb 8.9 L, Hct 26.8 L, MCV 90.8, MCH 30.2, MCHC 33.2, RDW Std Deviation 47.8 H, RDW Coeff of Edna 14.4, Plt Count 281, MPV 9.7, Immature Gran % (Auto) 0.700, Neut % (Auto) 89.3 H, Lymph % (Auto) 6.3 L, [place] % (Auto) 3.2, Eos % (Auto) 0.2, Baso % (Auto) 0.3, Absolute Neuts (auto) 10.8 H, Absolute Lymphs (auto) 0.76 L, Nucleated RBC % 0, Sodium 138, Potassium 4.1, Chloride 107, Carbon Dioxide 23.8, Anion Gap 7, BUN 48 H, Creatinine 0.76, Estim Creat Clear Calc 91.51, Est GFR (MDRD) Non-Af 97, BUN/Creatinine Ratio 62.8 H, Glucose 180 H, Calcium 8.3 08/05/24 14:26: Urine Color Yellow, Urine Clarity Clear, Urine pH 5.0, Ur Specific [place] 1.020, Urine Protein 15 H, Urine Glucose (UA) Normal, Urine Ketones 5 H, Urine Occult Blood Negative, Urine Nitrite Negative, Urine Bilirubin Negative, Urine Urobilinogen Normal, Ur Leukocyte Esterase Negative, Urine RBC 0-5 SEEN, Urine WBC 0-5 SEEN, Ur Squamous Epith Cells 0 SEEN, Urine Bacteria RARE, Urine Mucus 0 SEEN 08/05/24 20:45: Hgb 8.1 L, Hct 24.6 L 08/06/24 04:18: WBC 15.3 H, RBC 2.46 L, Hgb 7.4 L, Hct 22.1 L, MCV 89.8, MCH 30.1, MCHC 33.5, RDW Std Deviation 48.1 H, RDW Coeff of Edna 14.6, Plt Count 221, MPV 9.6, Immature Gran % (Auto) 0.700, Neut % (Auto) 91.7 H, Lymph % (Auto) 3.2 L, [place] % (Auto) 4.3, Eos % (Auto) 0.0, Baso % (Auto) 0.1, Absolute Neuts (auto) 14.0 H, Absolute Lymphs (auto) 0.49 L, Nucleated RBC % 0, Differential Comment SCANNED, Sodium 140, Potassium 3.4, Chloride 110 H, Carbon Dioxide 20.9 L, Anion Gap 9, BUN 28 H, Creatinine 0.67 L, Estim Creat Clear Calc 88.72, Est GFR (MDRD) Non-Af 101, BUN/Creatinine Ratio 42.7 H, Glucose 137 H, Calcium 7.5 L Radiography Diagnostic Testing: Radiology Impression Abdomen/Pelvis CT 08/05/24 13:21 IMPRESSION: 1. Punctate gas within the proximal duodenum with mild duodenal thickening, which is nonspecific and may represent duodenitis or non perforated duodenal ulcer. 2. Otherwise unremarkable CT abdomen pelvis. Reading Location: [facility] Physical Exam Const alert, oriented x3 and no apparent distress General Appearance: cooperative HEENT normocephalic, head/scalp atraumatic, moist oral mucous membranes, oropharynx normal and gingiva normal Eyes PERRL and EOMs intact bilaterally Neck no lymphadenopathy and supple Lymph Lymphatic: no lymphadenopathy noted and no lymphedema noted Resp normal respiratory effort, normal air movement and clear to auscultation bilaterally Cardio regular rate, regular rhythm, S1 normal heart sound, S2 normal heart sound and no murmurs GI normal to inspection, nondistended, normoactive bowel sounds, soft to palpation, non-tender and non-distended Extremity normal capillary refill, no clubbing, cyanosis or edema and no calf tenderness General Extremity: no tenderness to palpation of joints or extremities Skin General Skin Exam: no breakdown Neuro CN's II-XII intact bilaterally, no focal motor deficits and no sensory deficits noted Motor Exam: strength 5/5 throughout and general weakness Psych thought process normal and cooperative Appearance: appropriate Assessment & Plan Assessment/Plan (1) Duodenal ulcer: (2) Abdominal pain: (3) Orthostatic hypotension: PLAN: Plan #Acute on chronic anemia due to acute bleeding peptic ulcer * Patient admitted with complaint of abdominal pain and maroon-colored stools as well as syncope. He had EGD yesterday which showed normal esophagus and no gross lesions in the entire stomach and showed spurting duodenal ulcers with a visible vessel which was injected and treated with argon plasma coagulation and a nonbleeding duodenal ulcer with no stigmata of bleeding which was also treated with argon plasma coagulation * Currently on IV pantoprazole 40 mg twice daily. No NSAIDs. * Clear liquids for now. * Gastroenterology on board * no nsaids or anticoagulatns * # Hypotension * Patient complained of feeling weak this afternoon and blood pressure was in the 90s systolic. Give a bolus of IV fluid normal saline 1 L x 1 and continue hydration with normal saline 150 cc/h x 2 bags. * For precautions. * #Leukocytosis: * WBCs 15.3. No evidence of infection. * Urinalysis showed no evidence of infection. * May be reactive due to the GI bleed. * Will monitor for now. * DVT prophylaxis: SCDs. No anticoagulation in light of GI bleed. Charges/Coding Visit Charges Inpatient E&M: 17951 Subs Hosp L2
[2024-08-06] MEDS: 0.9% Normal Saline (1000mL) 1,000 ML 999 ML IV (12:58)
[2024-08-06] MEDS: 0.9% Normal Saline (1000mL) 1,000 ML 125 ML IV (14:14)
[2024-08-06 18:04] LABS: Hematocrit 20.2 % (40-54); Hemoglobin 6.7 g/dL (13.0-16.5)
[2024-08-07] VITALS (28 sets, daily range): BP systolic 124–188; BP diastolic 67–107; PULSE 75–90; RESP 14–24; TEMP 36.1–37.7; O2SAT 92–100; BMI 24.0
[2024-08-07] MEDS: Pantoprazole Sodium 80 MG in 0.9% Normal Saline (100mL Bag) 80 ML 10 MG CONT INF ×2 (07:28→20:35)
[2024-08-07] MEDS: metroNIDAZOLE 500 MG/100 ML BAG 100 MG IV ×3 (07:45→23:20)
[2024-08-07] MEDS: 0.9% Normal Saline (1000mL) 1,000 ML 125 ML IV (07:46)
[2024-08-07 08:38] LABS: Absolute Lymphocyte Count 0.34 X10^3/uL (0.83-4.51); Absolute Neutrophil Count 13.6 X10^3/uL (2.0-7.7); Basophil# 0.02 X10^3/uL; Basophil% 0.1 % (0-1); Hematocrit 30.2 % (40-54); Hemoglobin 10.3 g/dL (13.0-16.5); Lymphocyte # 0.34 X10^3/ul (0.83-4.51); Lymphocyte % 2.3 % (19-41); Mean Corp Hgb Conc 34.1 g/dL (32-36); Mean Platelet Vol. 9.2 fl (6.2-12.0); Monocyte# 0.57 X10^3/uL; Monocyte% 3.9 % (0-10); NRBC Flagged by Analyzer 0 % (0-5); Neutrophil # 13.57 X10^3/uL (2.7-7.7); Neutrophil % 92.7 % (47-70); POSITIVE DIFFERENTIAL YES; Platelet Count 214 K/mm3 (150-450); RBC Distribution Width CV 14.8 % (11.6-14.6); RBC Distribution Width SD 46.8 fl (35.1-43.9); Red Blood Count 3.43 M/mm3 (4.6-6.2); White Blood Count 14.6 K/mm3 (4.4-11.0)
[2024-08-07 09:06] LABS: ALB/GLOB Ratio 1.3 RATIO (0.9-2.4); AST(SGOT) 14 U/L (<=37); Alanine Aminotransfer ALT/SGPT 6 U/L (<=46); Alkaline Phosphatase 60 U/L (40-129); Anion Gap 9 (5-15); BUN 18 mg/dL (4-19); BUN/Creat Ratio 26.1 RATIO (10-20); Calcium,Total 7.8 mg/dL (7.6-11.0); Carbon Dioxide 21.5 mmol/L (21.0-32.0); Chloride 107 mmol/L (98-108); Creatinine, Serum 0.68 mg/dL (0.70-1.20); EST Glomerular Filtration Rate 100 (>60); Estimated Creatinine Clearance 88.72 ml/min (50-250); Globulin 2.3 g/dL (2.2-4.2); Glucose 142 mg/dL (70-99); Potassium 3.3 mmol/L (3.3-5.1); Protein, Total 5.3 g/dL (5.9-8.4); Sodium Level 138 mmol/L (133-145); Total Bilirubin 0.78 mg/dL (0.00-1.30)
[2024-08-07] MEDS: oxyCODONE 5 MG Tablet PO (09:39)
[2024-08-07] MEDS: Ciprofloxacin 400 MG/200 ML BAG 200 MG IV ×2 (09:39→22:15)
--- NOTE | 2024-08-07 09:40 | CASEMGMT ---
TOBIAS OLSEN Assessment: Face to Face with pt for initial transition planning/care coordination assessment. RN RAÚL introduced self and role at [facility], pt voices understanding and consents to assessment. Pt is A&O x4 and answers all questions appropriately at this time. Pt lying in bed in no distress with , son and dtr present at bedside. Pt agreeable to assessment with family present. Care providers, pharmacy, and demographics verified/updated. Admitting Dx: GIB Strata Score: 2 PCP:Izabela Specialists:Denies Preferred Pharmacy:[facility] Insurance: [employer] Prescription Benefit: no LNOK: Rachana Ibarra, Living Arrangements: Pt lives with in a two story home with no steps to enter. Pt reports he is I in ADL/IADLs and denies concerns at home. Pt still works. 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 DME:cane, walker HHC/SNF: Denies hx of Pt states no concerns with going home at time of dc. Pt states no further concerns/needs. CM to follow. Advised pt to ask CM if any further questions/concerns/needs arise, voices understanding. Pt Goal: Home Plan: Home [employer] [place] CM
--- NOTE | 2024-08-07 10:34 | PN_ITS ---
Subjective Subjective Patient seen and examined. His and his niece were by his bedside. He said he felt very weak and tired. His hemoglobin did drop to 6.4 overnight and he was transfused with 2 more units of packed red blood cells. He denies any nausea or vomiting, fever or chills today. Objective Data Objective Data Vital Signs: Vital Signs Temp Pulse Resp BP Pulse Ox O2 Del Method 98.4 F 88 16 146/83 H 95 Room Air 08/07/24 08:46 08/07/24 08:46 08/07/24 08:46 08/07/24 08:46 08/07/24 08:46 08/07/24 08:46 Oxygen Delivery Method Room Air Weight: 171 lb 8.314 oz Body Mass Index (BMI) 24.0 Intake & Output: Intake and Output for Last 24 Hours 08/05/24 08/06/24 08/07/24 23:59 23:59 23:59 Intake Total 1999 4484.00 / 4484.00 838.08 / 838.08 Output Total 700 / 700 Balance 1999 3784.00 / 3784.00 838.08 / 838.08 Lab / Micro Data 08/07/24 08:22 08/07/24 08:22 Labs: Laboratory Results - last 24 hr 08/06/24 17:56: Hgb 6.7 L, Hct 20.2 L, Blood Type O POSITIVE, Antibody Screen NEGATIVE, Crossmatch See Detail 08/06/24 17:56: Crossmatch See Detail 08/07/24 08:22: WBC 14.6 H, RBC 3.43 L, Hgb 10.3 L, Hct 30.2 L, MCV 88.0, MCH 30.0, MCHC 34.1, RDW Std Deviation 46.8 H, RDW Coeff of Edna 14.8 H, Plt Count 214, MPV 9.2, Immature Gran % (Auto) 1.000 H, Neut % (Auto) 92.7 H, Lymph % (Auto) 2.3 L, [place] % (Auto) 3.9, Eos % (Auto) 0.0, Baso % (Auto) 0.1, Absolute Neuts (auto) 13.6 H, Absolute Lymphs (auto) 0.34 L, Nucleated RBC % 0, Sodium 138, Potassium 3.3, Chloride 107, Carbon Dioxide 21.5, Anion Gap 9, BUN 18, C reatinine 0.68 L, Estim Creat Clear Calc 88.72, Est GFR (MDRD) Non-Af 100, B UN/Creatinine Ratio 26.1 H, Glucose 142 H, Calcium 7.8, Total Bilirubin 0.78, AST 14, ALT 6, Alkaline Phosphatase 60, Total Protein 5.3 L, Albumin 3.0 L, Globulin 2.3, Albumin/Globulin Ratio 1.3 Physical Exam Const alert, oriented x3 and no apparent distress General Appearance: cooperative HEENT normocephalic, head/scalp atraumatic, moist oral mucous membranes, oropharynx normal and gingiva normal Eyes PERRL and EOMs intact bilaterally Neck no lymphadenopathy and supple Lymph Lymphatic: no lymphadenopathy noted and no lymphedema noted Resp normal respiratory effort, normal air movement and clear to auscultation bilaterally Cardio regular rate, regular rhythm, S1 normal heart sound, S2 normal heart sound and no murmurs GI normal to inspection, nondistended, normoactive bowel sounds, soft to palpation, non-tender and non-distended Extremity normal capillary refill, no clubbing, cyanosis or edema and no calf tenderness General Extremity: no tenderness to palpation of joints or extremities Skin General Skin Exam: no breakdown Neuro CN's II-XII intact bilaterally, no focal motor deficits and no sensory deficits noted Motor Exam: strength 5/5 throughout and general weakness Psych thought process normal and cooperative Appearance: appropriate Assessment & Plan Assessment/Plan (1) Duodenal ulcer: (2) Abdominal pain: (3) Orthostatic hypotension: PLAN: Plan #Acute on chronic anemia due to acute bleeding peptic ulcer * Patient admitted with complaint of abdominal pain and maroon-colored stools as well as syncope. He had EGD yesterday which showed normal esophagus and no gross lesions in the entire stomach and showed spurting duodenal ulcers with a visible vessel which was injected and treated with argon plasma coagulation and a nonbleeding duodenal ulcer with no stigmata of bleeding which was also treated with argon plasma coagulation * Hemoglobin dropped to 6.4 yesterday so he was transfused with 2 more units of packed red blood cells. On pantoprazole drip * Currently NPO. Awaiting GI evaluation to see if he will be scoped again otherwise. * # Hypotension * Resolved after IV fluid hydration. Blood pressure today is 146/83. * #Leukocytosis: * WBCs 14.6.3. No evidence of infection. * Urinalysis showed no evidence of infection. * May be reactive due to the GI bleed. * Will monitor for now. * DVT prophylaxis: SCDs. No anticoagulation in light of GI bleed. Charges/Coding Visit Charges Inpatient E&M: 93890 Subs Hosp L2
[2024-08-07 13:32] LABS: International Normalized Ratio 1.3
[2024-08-07 13:33] LABS: Partial Thromboplast Time 33.7 Seconds (24.1-36.2)
--- NOTE | 2024-08-07 15:32 | NURSING ---
pt to endo
--- NOTE | 2024-08-07 15:53 | PRE.ANES_ITS ---
ASA Classification* ASA Classification ASA Classification: 2 Assessment & Plan Anesthesia* Anesthesia Assessment Anesthesia Assessment: Discussed sedation and/or anesthesia options, risks, benefits, and alternatives with patient/parents/legal guardian/POA. Questions invited. The patient/parents/legal guardian/POA seems to understand and agrees to proceed with anesthesia plan. Reviewed the physical assessment, medical history, allergy history and patient home medications list prior to surgery/procedure/anesthetic and documented any changes. Performed airway and anesthesia risk assessments. Anesthesia Type Anesthesia Type: General History Source History Obtained from:: Patient and Chart Anesthesia Focused Assessment* Temperature: 98 F Pulse Rate: 78 Blood Pressure: 124/70 Respiratory Rate: 16 Pulse Ox: 96 Oxygen Delivery Method: Room Air Airway Assessment Mouth opens: >3 cm Mallampati Score: II Teeth Condition: Intact and Missing (front top) Neck Range of motion (ROM): Full ROM Focused Labs Anesthesia Preop lab: CBC WBC 14.6 K/mm3 (4.4-11.0) H 08/07/24 08: 5 RBC 3.43 M/mm3 (4.6-6.2) L 08/07/24 08:08/07/24 Hgb 10.3 g/dL (13.0-16.5) L 08/07/24 08: 5 Hct 30.2 % (40-54) L 08/07/24 08:22 08/07/24 Plt Count 214 K/mm3 (150-450) 08/07/24 08:22 08/07/24 CHEMISTRY Potassium 3.3 mmol/L (3.3-5.1) 08/07/24 08:22 08/07/24 Sodium 138 mmol/L (133-145) 08/07/24 08:22 08/07/24 Magnesium 2.1 mg/dL (1.6-2.6) 01/22/20 14:45 01/22/20 BUN 18 mg/dL (4-19) 08/07/24 08:22 08/07/24 Creatinine 0.68 mg/dL (0.70-1.20) L 08/07/24 08:22 Glucose 142 mg/dL (70-99) H 08/07/24 08:22 08/07/24 COAG PT 16.0 SECONDS (11.7-14.9) H 08/07/24 12:26 05/08/27 Pre-Assessment Diagnosis/Proposed Procedure Planned Operative Procedure(s): EGD Anesthesia History 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 When Was Last Pacemaker Check QUESTION #4 FULL TEXT: You/Your Family Experience fever (hyperthermia) with Anesthesia Last Oral Intake Last Oral intake: Last Oral Intake NPO since 00:00 08/07/24 14:14 Meds taken in AM with sips of water? Meds patient instructed to take am of surgery PONV PONV - airline lounge receptionist: PONV - airline lounge receptionist Female HX of Motion Sickness HX of N/V After Surgery Non-Smoker Duration of Surgery greater than 60 minutes Number of Risk Factors PONV Score Height & Weight Height & Weight: Anesthesia: Height & Weight Height 5 ft 10 in 08/07/24 15:16 Weight: 77 kg 08/07/24 15:16 Body Mass Index (BMI) 24.0 08/07/24 14:14 Respiratory Assessment Respiratory Assessment - airline lounge receptionist: Respiratory Tract Infection Hx - airline lounge receptionist Hx Respiratory Tract Infection No 08/05/24 16:52 STOP Sleep Apnea STOP Sleep Apnea - airline lounge receptionist: STOP Sleep Apnea - airline lounge receptionist Hx Hypertension No 08/05/24 16:27 Hx Sleep Apnea No 08/05/24 16:27 CPAP BIPAP Do you snore loudly (louder No 08/05/24 16:27 than talking or can be heard Do you often feel tired/ No 08/05/24 16:27 fatigued/ sleepy during daytime? Has anyone observed you stop No 08/05/24 16:27 breathing during sleep? STOP Results Negative 08/05/24 18:35 QUESTION #5 FULL TEXT : Do you snore loudly (louder than talking or can be heard through closed doors)? 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 Specify any problems Hx of Preganancy in last 3 N/A 08/05/24 16:27 Months Nurse Filling Out Transfusion JDIAL 08/05/24 16:27 & Questions: Date: 08/05/24 08/05/24 16:27 Time: 16:31 08/05/24 16:27 Patient unable to answer at this time (ie. confused, unrespo /Reproduction History /Reproductive History - airline lounge receptionist: /Reproductive Hx- airline lounge receptionist Hx Now No 08/05/24 16:52 Gestational Age (in weeks): EDC: Hx Hx Para Hx Section SAB No 08/05/24 16:52 Active Medications Active Medications: Current Medications Generic Name Dose Route Start Last Admin Trade Name Freq PRN Reason Stop Dose Admin Acetaminophen 650 mg 08/07/24 03:52 Acetaminophen 325 Mg Tablet PO Q4H PRN PRN Fever, pain 1-10 Ciprofloxacin 400 mg in 200 mls @ 200 mls/hr 08/05/24 22:00 08/07/24 11:13 Cipro IV Infused Q12 MARSHA Infusion Metronidazole 500 mg in 100 mls @ 100 mls/hr 08/05/24 22:00 08/07/24 14:48 Flagyl IV Infused Q8 MARSHA Infusion Pantoprazole Sodium 80 mg/ 100 mls @ 10 mls/hr 08/06/24 20:10 08/07/24 15:32 Sodium Chloride CONT INF 0 mls/hr Q10H MARSHA Infusion Ondansetron HCl 4 mg 08/05/24 22:10 08/05/24 22:38 Ondansetron 4 Mg/2 Ml Vial IV 4 mg Q6H PRN PRN Administration nausea,emesis Oxycodone HCl 5 mg 08/05/24 22:10 08/07/24 09:39 Oxycodone 5 Mg Tablet PO 5 mg Q4H PRN PRN Administration pain 4-10 Prochlorperazine Edisylate 5 mg 08/05/24 22:10 Prochlorperazine 10 Mg/2 Ml Vial IV Q4H PRN PRN Nausea/Vomiting, 2nd line Sodium Chloride 10 - 40 ml 08/05/24 16:33 0.9% Saline Lock 10 Ml Syringe IV UD PRN SALINE FLUSH [facility] Medical History History of DVT (deep vein thrombosis) Mitral valve prolapse Home Medications ?Medication ?Instructions ?Recorded ?Last Taken ?Type aspirin 81 mg chewable tablet 81 mg PO DAILY heart hea lth 01/22/20 08/05/24 History multivitamin 1 tab PO DAILY supplement 08/05/24 History omega-3 fatty acids 1,000 mg 2,000 mg PO BID supplemen t 01/22/20 08/05/24 History capsule turmeric 450 mg-turmeric root 1 cap PO DAILY supplemen t 01/22/20 08/05/24 History extract 50 mg capsule polyethylene glycol 3350 17 17 g PO DAILY PRN laxative effect 08/05/24 08/02/24 History gram/dose oral powder (ClearLax) psyllium husk 0.4 gram capsule 0.8 g PO BID 08/05/24 0 08/05/24 History (Daily Fiber) Allergy/AdvReac Type Severity Reaction Status Date / Time Penicillins AdvReac PT UNABLE Verified 08/05/24 13:12 TO RESPOND-NEEDS F/U Family History Father Myocardial infarction Mother CVA (cerebral vascular accident) Surgical History H/O shoulder surgery History of repair of hiatal hernia Social History Smoking Status: Never smoker alcohol intake: never Review of Systems (Anesthesia) ROS Narrative System reviewed and no additional complaints, except as documented. Physical Exam Const alert, oriented x3 and average body habitus Resp normal respiratory effort, normal air movement and clear to auscultation bilaterally Cardio regular rate, regular rhythm, no murmurs and diaphoretic
[2024-08-07] MEDS: Lactated Ringers 1,000 ML 15 ML IV (16:08)
--- NOTE | 2024-08-07 16:30 | EGD_PTH ---
PATIENT: LAINE GARCIA LOC: [facility] U#:[id number] AGE/SX: 69/M [place] [facility] [place]: Dr. Brandie Spears DO : 1955 BED: 1 DIS: 08/09/2024 SPEC #: [id number] RECD: 08/07/24 18:21 STATUS: HAYDER REQ #: [id number] MANUELITO: 08/07/24 16:[address]: Betito Avendano DEPT: SURGICAL PATHOLOGY RECD BY: John Carbajal ENTERED: 08/08/24 09:38 SP TYPE: EGD BIOPSY OT DR: DO Dr. Brandie Ingram DO Dr. Nana Yaa Koram, MD Dr. Nicholas F Kotsonis, MD Tissues: A - Duodenum, NOS Procedures: Immunohistochemical Stains Surgery Specimen Level IV HEADER OPERATION: EGD with clip placement, hemostasis and biopsy PRE-OP DIAGNOSIS: Duodenal ulcer, abdominal pain, orthostatic hypotension TISSUE SUBMITTED: A- Duodenal ulcer biopsy MICROSCOPIC DIAGNOSIS A. Small bowel, duodenum, ulcer, biopsy: * Ulceration with acute inflammation, Primitivo gland hyperplasia, Paneth cell metaplasia, dilated lacteal, and fibrinopurulent debris. * Gastric mucin cell metaplasia. * IHC for H pylori is pending and will be reported in an addendum. * No evidence of neoplasia is observed in these sections - see note. * Note: A separate fragment of necrotic mucosa favored to represent gastric-type mucosa is also noted. The specific origin of this fragment is unknown; it could represent gastric metaplasia or could be a contaminant from the stomach. MICROSCOPIC DESCRIPTION Slides are reviewed. GROSS DESCRIPTION A. Received in formalin in a container labeled with the patient's name, date of , and duodenal ulcer biopsy are multiple pavon-pink fragments of mucosal tissue measuring 0.8 x 0.7 x 0.2 cm in aggregate. Submitted in toto in A1. [facility] 08-08-2024 CPT:77506, 37248 ADDENDUM ADDENDUM ADDENDUM ADDENDUM ADDENDUM ADDENDUM ADDENDUM ADDENDUM ADDENDUM ADDENDUM ADDENDUM 08/15/2024 15:40 ADDENDUM 08/15/2024 15:40 ADDENDUM 08/15/2024 15:40 ADDENDUM 08/15/2024 15:40 ADDENDUM 08/15/2024 15:40 This addendum is to report the result of the IHC stain: IHC is negative for H pylori organisms. All matched controls reacted appropriately. These tests were developed and their performance characteristics determined by [facility]. They may not have been cleared or approved by the U.[place]. Food and Drug Administration. The FDA has determined that such clearance or approval is not necessary.? The above immunohistochemical/dualISH?markers are ordered and reviewed by the Pathologist.
--- NOTE | 2024-08-07 16:39 | PCM.PN.BLA ---
Progress Note The patient is for an upper endoscopy today. He received transfusion of 3 units of packed red blood cells for hemoglobin of 6.1. Physical Exam Const alert, oriented x3 and average body habitus Resp normal respiratory effort, normal air movement and clear to auscultation bilaterally Cardio regular rate, regular rhythm, no murmurs and diaphoretic Assessment & Plan Assessment/Plan (1) Duodenal ulcer: (2) Abdominal pain: (3) Orthostatic hypotension: PLAN: Plan 69-year-old gentleman who presented with 2 episodes of abdominal pain and discovered to have large duodenal ulcer with active GI bleeding. He underwent endoscopic evaluation and treatment of the large duodenal ulcer. His hemoglobin decreased back down 3 units. He was transfused 2 units of packed red blood cells overnight and restarted back on PPI drip. He will undergo EGD with possible duodenal stent placement today due to large ulcer and partial gastric outlet obstruction to hopefully avoid surgery. He was explained alternatives, benefits, risk include not withstanding bleeding, infection, sepsis, perforation, need for emergent or to . They will have an ASA of 3. Visit Charges Inpatient E&M: 54678 Subs Hosp L3
[2024-08-07] MEDS: Epinephrine (1 mg/ml) 1 MG/ML VIAL (17:24)
[2024-08-07] MEDS: 0.9% Normal Saline (Pres. free 10 ML Vial (17:24)
--- NOTE | 2024-08-07 17:40 | RAD_ITS ---
PROCEDURE: FLUOROSCOPY 1 HR OR LESS 08/07/2024 REASON FOR EXAM: Duodenal stenting. TECHNIQUE: Advertising Account Executive performed stenting of the duodenum. 3.3 seconds of fluoroscopy. 0.74 mGy. COMPARISON: None FINDINGS: Intraoperative fluoroscopic imaging provided for duodenal stenting. RAD/Fluoroscopy 1 Hr or Less IMPRESSION: Intraoperative fluoroscopic imaging provided for duodenal stenting. Reading Location: [facility]
--- NOTE | 2024-08-07 18:20 | RAD_ITS ---
PROCEDURE: ABDOMEN SINGLE VIEW (PORTABLE) 08/07/2024 REASON FOR EXAM: ABDOMINAL DISTENTION. POST EGD. TECHNIQUE: Single view abdomen. COMPARISON: CT ABDOMEN AND PELVIS DATED 08/05/2024. FINDINGS: Bowel gas: Large amount of gas throughout the large and small bowel. Calcifications: Unremarkable. Bones: Spondylosis. Other: A semiopaque wall stent projects over the right upper quadrant. This may be related to previous TIPS procedure. RAD/Abdomen Single View (Portable) IMPRESSION: Bowel-gas pattern suggests severe adynamic/reflex ileus. Suspicion of previous TIPS procedure. Reading Location: [facility]
--- NOTE | 2024-08-07 18:31 | RAD_ITS ---
PROCEDURE: ABDOMEN SINGLE VIEW 08/07/2024 REASON FOR EXAM: NG PLACEMENT. TECHNIQUE: Single view abdomen. COMPARISON: Earlier KUB dated 08/07/2024. FINDINGS: Bowel gas: Diffuse gas throughout the large and small bowel. Calcifications: Unremarkable. Bones: Spondylosis. Other: Nasogastric tube has been inserted, tip coiled in the body of the stomach. Wall stent is again noted projecting over the right hemiabdomen. RAD/Abdomen Single View IMPRESSION: Interval insertion of a nasogastric tube, tip projecting over the body of the s tomach. Bowel-gas pattern unchanged. Reading Location: [facility]
--- NOTE | 2024-08-07 18:37 | CT_ITS ---
PROCEDURE: ABDOMEN/PELVIS W IV CONT ONLY 08/07/2024 REASON FOR EXAM: ABDOMINAL DISTENTION TECHNIQUE: Abdomen and pelvis CT with intravenous contrast. Coronal and Sagittal reconstruction series were provided. PATIENT PREPARATION: Per protocol ORAL CONTRAST TYPE: None. AMOUNT: mL CONTRAST: Omnipaque 350 VOLUME: 100 mL Not Provided Gauge IV One or more dose reduction techniques were used (e.g., Automated exposure control, adjustment of the mA and/or kV according to patient size, use of iterative reconstruction technique. COMPARISON: CT abdomen and pelvis 08/06/2019 FINDINGS: Lung bases: Small-moderate bilateral pleural effusions with atelectasis. Liver: Homogeneous attenuation. Scattered simple cysts. Gallbladder: No ductal dilation. Status post cholecystectomy. Spleen: Normal size. Pancreas: Normal size without evidence of mass surrounding inflammation or ductal dilation. Adrenals: Unremarkable. Kidneys: Normal renal sizes. No hydronephrosis. Bilateral cortical and parapelvic cysts. No calculi or hydronephrosis. Bladder: Unremarkable. Reproductive Organs: No pelvic mass. Bowel: Interval placement gastro duodenal stent. Feeding tube is also new since prior. There is gastric pylorus and proximal duodenal wall thickening. No pneumoperitoneum. No bowel dilation. Moderate colonic stool. Appendix: Normal appendix. Lymph nodes: No suspicious lymph node enlargement. Vasculature: Mild diffuse atherosclerotic calcifications are noted. Peritoneum / Retroperitoneum: No pneumoperitoneum. No ascites. Bones: Degenerative changes of the spine. CT/Abdomen/Pelvis W IV Cont ONLY IMPRESSION: Interval placement gastroduodenal stent, since prior. No pneumoperitoneum. Ot herwise, no acute findings in the abdomen and pelvis. Reading Location: [facility]
--- NOTE | 2024-08-07 18:49 | OP.EGD_ITS ---
Patient Name: Javi Ibarra Procedure Date: 08/07/2024 4:37 PM Date of : 1955 Age: 69 Procedure: Upper GI endoscopy Indications: Epigastric abdominal pain, Active gastrointestinal bleeding Providers: Betito Avendano DO Medicines: Monitored Anesthesia Care Patient Profile: This is a 69 year old male. Refer to note in patient chart for documentation of history and physical. Patient has symptoms of acute epigastric abdominal pain. Complications: No immediate complications. Procedure: Pre-Anesthesia Assessment: - Prior to the procedure, a History and Physical was performed, and patient medications and allergies were reviewed. The patient is competent. The risks and benefits of the procedure and the sedation options and risks were discussed with the patient. All questions were answered and informed consent was obtained. Patient identification and proposed procedure were verified by the physician in the pre-procedure area. Mental Status Examination: alert and oriented. Airway Examination: normal oropharyngeal airway and neck mobility. Respiratory Examination: clear to auscultation. CV Examination: normal. Prophylactic Antibiotics: The patient does not require prophylactic antibiotics. Prior Anticoagulants: The patient has taken no anticoagulant or antiplatelet agents. ASA Grade Assessment: III - A patient with severe systemic disease. After reviewing the risks and benefits, the patient was deemed in satisfactory condition to undergo the procedure. The anesthesia plan was to use monitored anesthesia care (MAC). Immediately prior to administration of medications, the patient was re-assessed for adequacy to receive sedatives. The heart rate, respiratory rate, oxygen saturations, blood pressure, adequacy of pulmonary ventilation, and response to care were monitored throughout the procedure. The physical status of the patient was re-assessed after the procedure. After obtaining informed consent, the endoscope was passed under direct vision. Throughout the procedure, the patient's blood pressure, pulse, and oxygen saturations were monitored continuously. The Endoscope was introduced through the mouth, and advanced to the third part of the duodenum. Small bowel enteroscopy was deemed necessary. The upper GI endoscopy was accomplished without difficulty. The patient tolerated the procedure well. Scope In: 5:11:04 PM Scope Out: 5:53:14 PM Total Procedure Duration Time 0 hours 42 minutes 10 seconds Findings: The examined esophagus was normal. The entire examined stomach was normal. Many oozing cratered duodenal ulcers with a visible vessel were found in the duodenal bulb and in the first portion of the duodenum. The largest lesion was 30 mm in largest dimension. Area was successfully injected with 10 mL of a 0.1 mg/mL solution of epinephrine for drug delivery. Coagulation for hemostasis using argon plasma at 0.7 liters/minute and 20 river was successful. Estimated blood loss was minimal. This was stented with a 22 mm x 9 cm WallFlex stent under fluoroscopic guidance. Estimated blood loss was minimal. For hemostasis, five hemostatic clips were successfully placed. Clip bone drier operator: [employer]. There was no bleeding at the end of the procedure. Biopsies were taken with a cold forceps for histology. Verification of patient identification for the specimen was done. Estimated blood loss was minimal. Impression: - Normal esophagus. - Normal stomach. - Oozing duodenal ulcers with a visible vessel. Injected. Treated with argon plasma coagulation (APC). Prosthesis placed. Clips were placed. Clip bone drier operator: [employer]. - No specimens collected. Recommendation: - Return patient to ICU for ongoing care. - NPO. - Continue present medications. - Await pathology results. Procedure Code(s): --- Professional --- 40753, Small intestinal endoscopy, enteroscopy beyond second portion of duodenum, not including ileum; with transendoscopic stent placement (includes predilation) 44029, 59, Small intestinal endoscopy, enteroscopy beyond second portion of duodenum, not including ileum; with control of bleeding (eg, injection, bipolar cautery, unipolar cautery, laser, heater probe, stapler, plasma tube cutter) 69743, 51, Small intestinal endoscopy, enteroscopy beyond second portion of duodenum, not including ileum; with biopsy, single or multiple 49725, 26, Intraluminal dilation of strictures and/or obstructions (eg, esophagus), radiological supervision and interpretation 68479, Unlisted procedure, small intestine CPT copyright 2021 [employer]. All rights reserved. The codes documented in this report are preliminary and upon software program manager review may be revised to meet current compliance requirements. Betito Avendano DO 08/07/2024 6:49:08 PM This report has been signed electronically. Number of Addenda: 0 Note Initiated On: 08/07/2024 4:37 PM
--- NOTE | 2024-08-07 18:53 | PCM.POST.ANE ---
Anesthesia: Postop Eval I Current Vital Signs Temperature: 99.6 F Pulse Rate: 86 Blood Pressure: 141/93 Respiratory Rate: 18 Pulse Ox: 92 Oxygen Delivery Method: Nasal Cannula Oxygen Flow Rate (L/min): 6 Assessment Airway patent: Yes Spontaneous unlabored respirations: Yes Mental status: Awake nausea: No Vomiting: No Anesthesia Complication: No Fluid Hydration Crystalloid volume administer (ml): 1,000 Total IV fluid infused: 1,000 Progress Note Post-operative progress note: The patient's abdomen was distended upon completion of the procedure, and extremely hard with almost no ability to push the belly in. We obtained an abdominal x-ray which showed a distended abdomen. An NG was placed by Dr. Avendano which allowed the belly to be less distended. Throughout this, the patient's vitals remained stable, although for ease of the patient, 2 mg versed and 100 mcg fentanyl were given. The patient is stable for discharge to the CT scanner, and will be accepted by the floor upon completion. The patient is stable for discharge from PACU at this time. General surgery was consulted by Dr. Avendano during this time. Anesthesia remains available for any intervention needed. Anesthesia document: Postop Eval 1 completed: Yes
--- NOTE | 2024-08-07 18:57 | PCM.POSTANE2 ---
Anesthesia Postop Eval I Sum Postop Eval Completion status Anesthesia document: Postop Eval 1 completed: Yes Anesthesia Postop Eval I Summary Anesthesia Postop Eval I Summary: Anesthesia Postop Eval I: Assessment Summary Airway patent Yes 08/07/24 18:57 Spontaneous unlabored Yes 08/07/24 18:57 respirations Mental status Awake 08/07/24 18:57 nausea No 08/07/24 18:57 Vomiting No 08/07/24 18:57 Anesthesia Postop Eval I: Fluid Summary Crystalloid volume administer 1,000 08/07/24 18:57 (ml) Colloids volume administered ( ml) Blood Product volume administered (ml) Total IV fluid infused 1,000 08/07/24 18:57 Anesthesia Postop Eval I: Summary Notes Anesthesia Complication No 08/07/24 18:57 Anesthesia Complication Comment: Post-operative progress note The patient's 08/07/24 18:57 abdomen was distended upon completion of the procedure, and extremely hard with almost no ability to push the belly in. We obtained an abdominal x-ray which showed a distended abdomen. An NG was placed by Dr. Avendano which allowed the belly to be less distended. Throughout this, the patient's vitals remained stable, although for ease of the patient, 2 mg versed and 100 mcg fentanyl were given. The patient is stable for discharge to the CT scanner, and will be accepted by the floor upon completion. The patient is stable for discharge from PACU at this time . General surgery was consulted by Dr. Avendano during this time. Anesthesia remains available for any intervention needed. Anesthesia: Postop Eval II Evaluation Mental status: Awake Pain Level: 3 nausea: No Vomiting: No Progress Note Post-operative progress note: The patient's abdomen was distended upon completion of the procedure, and extremely hard with almost no ability to push the belly in. We obtained an abdominal x-ray which showed a distended abdomen. An NG was placed by Dr. Avendano which allowed the belly to be less distended. Throughout this, the patient's vitals remained stable, although for ease of the patient, 2 mg versed and 100 mcg fentanyl were given. The patient is stable for discharge to the CT scanner, and will be accepted by the floor upon completion. The patient is stable for discharge from PACU at this time. General surgery was consulted by Dr. Avendano during this time. Anesthesia remains available for any intervention needed. The patient will be going to the CT scanner at this time. Complications Anesthesia Complication: No
--- NOTE | 2024-08-07 19:51 | SUR.PHASEI ---
THIS NURSE AND MELI RN TOOK PATIENT TO CAT SCAN ON THE MONITOR, AND THEN TO ICU ROOM 201. HAND OFF REPORT GIVEN AT BEDSIDE.
[2024-08-08] VITALS (22 sets, daily range): BP systolic 100–153; BP diastolic 62–88; PULSE 72–86; RESP 13–21; TEMP 36.5–37.2; O2SAT 93–100; BMI 25.9
--- NOTE | 2024-08-08 05:21 | NURSING ---
0515- RN at bedside w/ patient. Patient stating it feels like something is in the back of his throat. Upon examination, NG was seen coiled in the back of pt's throat by this RN. At this time, NG was removed and Dr. Avendano was notified. Dr. Avendano aware of NG being removed, no further orders given at this time, does not want NG to be replaced. Patient notified.
[2024-08-08] MEDS: Pantoprazole Sodium 80 MG in 0.9% Normal Saline (100mL Bag) 80 ML 10 MG CONT INF ×3 (05:27→23:29)
[2024-08-08] MEDS: 0.9% Saline Lock 10 ML Syringe IV ×2 (05:27→21:02)
[2024-08-08] MEDS: metroNIDAZOLE 500 MG/100 ML BAG 100 MG IV ×3 (05:27→21:03)
--- NOTE | 2024-08-08 07:06 | PN.HOSP_ITS ---
Reason for Visit Reason for Visit: Melena Subjective Subjective Patient states he is having just a little bit of lower abdominal pain but no epigastric pain. Would like to try clear liquids. We have started these. Appreciative of removal of NG tube. No specific complaints at this time. No nausea. Objective Data Objective Data Vital Signs: Vital Signs Temp Pulse Resp BP Pulse Ox O2 Del Method O2 Flow Rate 98.2 F 73 18 126/70 H 95 Room Air 6 08/08/24 02:30 08/08/24 07:00 08/08/24 07:00 08/08/24 07:00 08/08/24 07:00 08/08/24 07:00 08/07/24 18:57 Oxygen Flow Rate (L/min) 6 Oxygen Delivery Method Room Air Weight: 82.2 kg Body Mass Index (BMI) 25.9 Intake & Output: Intake and Output for Last 24 Hours 08/06/24 08/07/24 08/08/24 23:59 23:59 23:59 Intake Total 4484.00 / 4484.00 1618.75 / 1618.75 488.67 / 488.67 Output Total 700 / 700 675 / 675 375 / 375 Balance 3784.00 / 3784.00 943.75 / 943.75 113.67 / 113.67 Lab / Micro Data 08/08/24 07:30 08/08/24 07:30 Labs: Laboratory Results - last 24 hr 08/06/24 17:56: Crossmatch See Detail 08/07/24 08:22: WBC 14.6 H, RBC 3.43 L, Hgb 10.3 L, Hct 30.2 L, MCV 88.0, MCH 30.0, MCHC 34.1, RDW Std Deviation 46.8 H, RDW Coeff of Edna 14.8 H, Plt Count 214, MPV 9.2, Immature Gran % (Auto) 1.000 H, Neut % (Auto) 92.7 H, Lymph % (Auto) 2.3 L, [place] % (Auto) 3.9, Eos % (Auto) 0.0, Baso % (Auto) 0.1, Absolute Neuts (auto) 13.6 H, Absolute Lymphs (auto) 0.34 L, Nucleated RBC % 0, Sodium 138, Potassium 3.3, Chloride 107, Carbon Dioxide 21.5, Anion Gap 9, BUN 18, C reatinine 0.68 L, Estim Creat Clear Calc 88.72, Est GFR (MDRD) Non-Af 100, B UN/Creatinine Ratio 26.1 H, Glucose 142 H, Calcium 7.8, Total Bilirubin 0.78, AST 14, ALT 6, Alkaline Phosphatase 60, Total Protein 5.3 L, Albumin 3.0 L, Globulin 2.3, Albumin/Globulin Ratio 1.3 08/07/24 12:26: PT 16.0 H, INR 1.3, APTT 33.7 Radiography Diagnostic Testing: Radiology Impression [facility] X-Ray 08/07/24 18:20 IMPRESSION: Bowel-gas pattern suggests severe adynamic/reflex ileus. Suspicion of previous TIPS procedure. Reading Location: [facility] X-Ray 08/07/24 18:31 IMPRESSION: Interval insertion of a nasogastric tube, tip projecting over the body of the stomach. Bowel-gas pattern unchanged. Reading Location: [facility] Abdomen/Pelvis CT 08/07/24 18:37 IMPRESSION: Interval placement gastroduodenal stent, since prior. No pneumoperitoneum. Otherwise, no acute findings in the abdomen and pelvis. Reading Location: [facility] Physical Exam Const alert, oriented x3, no apparent distress and average body habitus Constitutional Narrative: Older, Tenriism male, sitting up in bed, family at bedside, appears comfortable, nontoxic HEENT head/scalp atraumatic and moist oral mucous membranes Head and Scalp: normocephalic Resp normal respiratory effort, no retractions, no use of accessory muscles and clear to auscultation bilaterally Auscultation: Negative for rales, rhonchi or wheezes Cardio regular rate, regular rhythm, S1 normal heart sound, S2 normal heart sound, no murmurs, no rub, no gallops and no clicks GI normal to inspection, nondistended, normoactive bowel sounds and soft to palpation GI Narrative: Mild tenderness bilateral lower abdominal quadrants left greater than right Extremity no clubbing, cyanosis or edema Extremity Narrative: Pedal and radial pulses are 2+ Neuro oriented x3, moves all extremities and no focal motor deficits Speech: speech normal Psych affect normal Psych Narrative: Very pleasant, interacts appropriately, eye contact is good Assessment & Plan Assessment/Plan (1) Duodenal ulcer: (2) Orthostatic hypotension: (3) Upper GI bleed: (4) Acute anemia: (5) Leukocytosis: PLAN: Plan Upper GI bleed secondary to multiple duodenal ulcers - EGD performed on 08/07/2024 and esophagus and stomach were found to be normal. Many cratered duodenal ulcers with visible vessels were found in the duodenal bulb and first portion duodenum. The areas were successfully injected with epinephrine and coagulation was used as well for hemostasis there was concern for duodenal obstruction so a stent was placed under fluoroscopic guidance. 5 hemostatic clips were also placed during the procedure. Biopsies were taken - Patient has received a total of 4 units of packed red blood cells -Hemoglobin relatively stable over the last 24 hours - Start clear liquid diet - Continue Protonix drip - Start Carafate -Was placed on Cipro and Flagyl by GI--> continue until okay to discontinue with GI as this is a prophylaxis -Continue to hold aspirin and will need GI input for duration of holding medication at discharge - Await biopsies to see if patient test positive for H. pylori - GI following-appreciate input--> Discussed p.o. status with Dr. Avendano Acute anemia secondary to upper GI bleed - Kevin hemoglobin was 6.7 on 08/06/2024 - Patient received 4 units packed red blood cells and corrected appropriately - Currently 9.8 and seems to be stabilizing - No signs of bleeding at this time - Repeat CBC in a.m. Leukocytosis - Suspect reactive - Trending down without intervention Acute hypotension - Secondary to GI bleed and anemia - Resolved with volume resuscitation History of DVT - Remote - SCDs as chemoprophylaxis is contraindicated History of MVP - Outpatient follow-up DVT prophylaxis - Continue SCDs - Avoid chemoprophylaxis due to GI bleed on presentation CODE STATUS - Full code Disposition: - Patient is hemodynamically stable will transfer to [facility] Charges/Coding Visit Charges Inpatient E&M: 39174 Subs Hosp L2
[2024-08-08 07:40] LABS: Absolute Lymphocyte Count 0.44 X10^3/uL (0.83-4.51); Absolute Neutrophil Count 12.6 X10^3/uL (2.0-7.7); Basophil# 0.01 X10^3/uL; Basophil% 0.1 % (0-1); Eosinophil# 0.01 X10^3/uL; Eosinophils% 0.1 % (0-5); Hematocrit 28.7 % (40-54); Hemoglobin 9.8 g/dL (13.0-16.5); Lymphocyte # 0.44 X10^3/ul (0.83-4.51); Lymphocyte % 3.2 % (19-41); Mean Corp Hgb Conc 34.1 g/dL (32-36); Mean Corpuscular Volume 87.8 fL (80-94); Mean Platelet Vol. 9.4 fl (6.2-12.0); Monocyte# 0.63 X10^3/uL; Monocyte% 4.6 % (0-10); NRBC Flagged by Analyzer 0 % (0-5); Neutrophil # 12.61 X10^3/uL (2.7-7.7); Neutrophil % 91.5 % (47-70); POSITIVE DIFFERENTIAL YES; Platelet Count 201 K/mm3 (150-450); RBC Distribution Width CV 15.2 % (11.6-14.6); Red Blood Count 3.27 M/mm3 (4.6-6.2); White Blood Count 13.8 K/mm3 (4.4-11.0)
[2024-08-08 07:57] LABS: ALB/GLOB Ratio 1.1 RATIO (0.9-2.4); AST(SGOT) 15 U/L (<=37); Alanine Aminotransfer ALT/SGPT 7 U/L (<=46); Albumin, Serum 2.7 g/dL (3.4-4.8); Alkaline Phosphatase 59 U/L (40-129); Anion Gap 8 (5-15); BUN 18 mg/dL (4-19); BUN/Creat Ratio 29.6 RATIO (10-20); Calcium,Total 7.7 mg/dL (7.6-11.0); Chloride 107 mmol/L (98-108); EST Glomerular Filtration Rate 104 (>60); Estimated Creatinine Clearance 88.72 ml/min (50-250); Globulin 2.4 g/dL (2.2-4.2); Glucose 120 mg/dL (70-99); Potassium 3.3 mmol/L (3.3-5.1); Protein, Total 5.1 g/dL (5.9-8.4); Sodium Level 138 mmol/L (133-145); Total Bilirubin 0.52 mg/dL (0.00-1.30)
[2024-08-08] MEDS: Ciprofloxacin 400 MG/200 ML BAG 200 MG IV ×2 (10:40→22:55)
[2024-08-08] MEDS: Sucralfate 1 GM Tablet PO ×3 (11:27→21:04)
--- NOTE | 2024-08-08 18:21 | PN_ITS ---
Progress Note Patient is feeling little bit better today. He still has some mild abdominal pain. He still passing gas. He denied any fevers or chills. He still on antibiotic therapy and PPI. His NG tube came out and he was placed on a liquid diet. Physical Exam Const alert, oriented x3 and average body habitus Resp normal respiratory effort, normal air movement and clear to auscultation bilaterally Cardio regular rate, regular rhythm, no murmurs and diaphoretic Assessment & Plan Assessment/Plan (1) Duodenal ulcer: (2) Abdominal pain: (3) Orthostatic hypotension: PLAN: Plan 69-year-old gentleman with Acute on chronic anemia due to acute bleeding peptic ulcer secondary to possible NSAID induced injury from aspirin. * Originally patient admitted with complaint of abdominal pain and maroon- colored stools as well as syncope. He had EGD which showed normal esophagus and no gross lesions in the entire stomach and showed spurting duodenal ulcers with a visible vessel which was injected and treated with argon plasma coagulation and a nonbleeding duodenal ulcer with no stigmata of bleeding which was also treated with argon plasma coagulation * Hemoglobin dropped to 6.4 y so he was transfused with 2 more units of packed red blood cells. On pantoprazole drip * His hemoglobin went back up to 10.4 and today is 9.8. He underwent repeat upper endoscopy yesterday. And had his duodenal ulcer treated again with epinephrine argon plasma coagulation and cautery. He also had a duodenal stent placed with severe stricture with gastric outlet obstruction. He had a lot of retained gas consistent with ileus after the procedure so NG tube was placed. NG tube came out overnight. His CT scan had showed improvement of gas without any signs of pneumoperitoneum. He is continues to improve. If he does well we will advance his diet as tolerated tomorrow. Visit Charges Inpatient E&M: 05999 [facility] Hosp L3
[2024-08-08] MEDS: 0.9% Normal Saline (250mL Bag) 250 ML 15 ML IV (21:02)
[2024-08-09] VITALS (13 sets, daily range): BP systolic 127–155; BP diastolic 82–116; PULSE 69–79; RESP 14–24; TEMP 36.9–37.7; O2SAT 93–97; BMI 25.9
[2024-08-09] MEDS: metroNIDAZOLE 500 MG/100 ML BAG 100 MG IV ×2 (06:21→15:19)
[2024-08-09] MEDS: Sucralfate 1 GM Tablet PO (06:24)
[2024-08-09 06:43] LABS: Absolute Lymphocyte Count 0.67 X10^3/uL (0.83-4.51); Absolute Neutrophil Count 10.6 X10^3/uL (2.0-7.7); Basophil# 0.02 X10^3/uL; Basophil% 0.2 % (0-1); Eosinophil# 0.06 X10^3/uL; Eosinophils% 0.5 % (0-5); Hematocrit 29.8 % (40-54); Hemoglobin 10.2 g/dL (13.0-16.5); Lymphocyte # 0.67 X10^3/ul (0.83-4.51); Lymphocyte % 5.5 % (19-41); Mean Corp Hgb Conc 34.2 g/dL (32-36); Mean Corpuscular Hgb 29.7 pg (27.0-32.0); Mean Corpuscular Volume 86.9 fL (80-94); Mean Platelet Vol. 9.5 fl (6.2-12.0); Monocyte# 0.65 X10^3/uL; Monocyte% 5.4 % (0-10); NRBC Flagged by Analyzer 0 % (0-5); Neutrophil # 10.57 X10^3/uL (2.7-7.7); Neutrophil % 87.4 % (47-70); Platelet Count 223 K/mm3 (150-450); RBC Distribution Width CV 14.7 % (11.6-14.6); RBC Distribution Width SD 46.7 fl (35.1-43.9); Red Blood Count 3.43 M/mm3 (4.6-6.2); White Blood Count 12.1 K/mm3 (4.4-11.0)
[2024-08-09 07:14] LABS: Anion Gap 9 (5-15); BUN 16 mg/dL (4-19); BUN/Creat Ratio 31.8 RATIO (10-20); Calcium,Total 7.7 mg/dL (7.6-11.0); Carbon Dioxide 24.4 mmol/L (21.0-32.0); Chloride 106 mmol/L (98-108); Creatinine, Serum 0.51 mg/dL (0.70-1.20); EST Glomerular Filtration Rate 109 (>60); Estimated Creatinine Clearance 88.72 ml/min (50-250); Glucose 116 mg/dL (70-99); Magnesium 1.9 mg/dL (1.5-2.2); Phosphorus 1.3 mg/dL (2.7-4.5); Potassium 3.2 mmol/L (3.3-5.1); Sodium Level 139 mmol/L (133-145)
--- NOTE | 2024-08-09 08:00 | PN.HOSP_ITS ---
Reason for Visit Reason for Visit: Diagnoses Anemia, unspecified (08/05/24) Elevated white blood cell count, unspecified (08/05/24) Orthostatic hypotension (08/05/24) Duodenal ulcer, unspecified as acute or chronic, without hemorrhage or perforation (08/05/24) Gastrointestinal hemorrhage, unspecified (08/05/24) Unspecified abdominal pain (08/05/24) Objective Data Objective Data Vital Signs: Vital Signs Temp Pulse Resp BP Pulse Ox O2 Del Method O2 Flow Rate 99.9 F H 79 18 144/88 H 93 Room Air 6 08/09/24 07:57 08/09/24 07:57 08/09/24 07:57 08/09/24 07:57 08/09/24 07:57 08/09/24 07:57 08/07/24 18:57 Oxygen Flow Rate (L/min) 6 Oxygen Delivery Method Room Air Weight: 82.2 kg Body Mass Index (BMI) 25.9 Intake & Output: Intake and Output for Last 24 Hours 08/07/24 08/08/24 08/09/24 23:59 23:59 23:59 Intake Total 1618.75 / 1618.75 1269.00 / 1269.00 895.5 / 895.5 Output Total 675 / 675 375 / 375 400 / 400 Balance 943.75 / 943.75 894.00 / 894.00 495.5 / 495.5 Lab / Micro Data 08/09/24 06:13 08/09/24 06:13 Labs: Laboratory Results - last 24 hr 08/09/24 06:13: WBC 12.1 H, RBC 3.43 L, Hgb 10.2 L, Hct 29.8 L, MCV 86.9, MCH 29.7, MCHC 34.2, RDW Std Deviation 46.7 H, RDW Coeff of Edna 14.7 H, Plt Count 223, MPV 9.5, Immature Gran % (Auto) 1.000 H, Neut % (Auto) 87.4 H, Lymph % (Auto) 5.5 L, [place] % (Auto) 5.4, Eos % (Auto) 0.5, Baso % (Auto) 0.2, Absolute Neuts (auto) 10.6 H, Absolute Lymphs (auto) 0.67 L, Nucleated RBC % 0, Sodium 139, Potassium 3.2 L, Chloride 106, Carbon Dioxide 24.4, Anion Gap 9, BUN 16, C reatinine 0.51 L, Estim Creat Clear Calc 88.72, Est GFR (MDRD) Non-Af 109, B UN/Creatinine Ratio 31.8 H, Glucose 116 H, Calcium 7.7, Phosphorus 1.3 L*, Magnesium 1.9
--- NOTE | 2024-08-09 08:02 | CT_ITS ---
PROCEDURE: CTA CHEST W/WO CONTRAST 08/09/2024 REASON FOR EXAM: PLEURITIC CHEST PAIN TECHNIQUE: CTA imaging of the chest with intravenous contrast. Multiplanar and multisequence images were obtained. Coronal and sagittal MIP images CONTRAST: 100 cc Isovue 370 IV One or more dose reduction techniques were used (e.g., Automated exposure control, adjustment of the mA and/or kV according to patient size, use of iterative reconstruction technique). RADIATION DOSE SUMMARY: CTDlvol: 14.25 mGy DLP: 374.58 mGycm FINDINGS: The study is positive for bilateral pulmonary embolism at the upper hilar level. Partially occlusive pulmonary embolism at the right upper lobe interlobar division for example axial 119 through 148 and branching of the interlobar arteries left upper lobe distally appearing occlusive for example axial 139 at the segment divisions and axial 109. No CT evidence of right heart strain. The central airways appear patent. Moderate left and small right posterior layering pleural effusions with associated adjacent partial passive collapse, atelectasis. Ectatic thoracic aorta appears within limits. No pericardial effusion. Limited images of the upper abdomen with findings concerning for areas of free air and free fluid left upper quadrant about the spleen, clinically correlate. The visualized osseous structures appear within limits. Lower cervical spondylosis/discogenic change partially imaged. CT/CTA Chest W/WO Contrast IMPRESSION: The study is positive for bilateral pulmonary embolism at the upper hilar level . Partially occlusive pulmonary embolism at the right upper lobe interlobar division for example axial 119 through 148 and bran saurav of the interlobar arteries left upper lobe distally appearing occlusive for example axial 139 at the segment divisions and axial 109. No CT evidence of right heart strain. Moderate left and small right posterior layering pleural effusions with associa vimal adjacent partial passive collapse, atelectasis. Limited images of the upper abdomen with findings concerning for areas of free air and free fluid left upper quadrant about the spleen, clinically correlate. Red Alert: Pulmonary embolism as described and findings concerning for possible free air and free fluid partially imaged visualized left upper quadrant The critical information above was relayed directly by me by telephone to Brandie Spears on 08/09/2024 at 9:18 am with readback verification. Reading Location: [id number]
[2024-08-09] MEDS: Sodium Phosphate/Na Biphos 40 MMOL in 0.9% Normal Saline (500mL Bag) 500 ML 62.5 MMOL IV (08:57)
[2024-08-09] MEDS: Potassium Chloride Oral Tablet 20 MEQ 40 MEQ PO (08:57)
[2024-08-09] MEDS: Acetaminophen 500 MG Tablet 1000 MG PO ×2 (08:57→16:51)
[2024-08-09] MEDS: 0.9% Saline Lock 10 ML Syringe IV (08:58)
--- NOTE | 2024-08-09 09:40 | CT_ITS ---
PROCEDURE: ABDOMEN/PELVIS WITHOUT CONT, 08/09/2024 REASON FOR EXAM: FREE AIR TECHNIQUE: CT abdomen and pelvis was performed without IV contrast. Multiplanar reformats were generated. IV contrast: None. RADIATION DOSE SUMMARY: CTDlvol: 9.68 mGy DLP: 539.51 mGycm One or more dose reduction techniques were used (e.g., Automated exposure control, adjustment of the mA and/or kV according to patient size, use of iterative reconstruction technique). COMPARISON: CTA chest of same date and prior FINDINGS: Note that evaluation of the abdominopelvic viscera, vasculature, and remaining soft tissues is limited in the absence of IV contrast. Note that the ischial tuberosities are minimally excluded from the field of view inferiorly. Lung bases: Better evaluated on recent CTA chest.. Liver: Similar LEFT lobe cyst.. Spleen: Unremarkable. Gallbladder: High-density material within the gallbladder lumen, probably vicarious contrast excretion given this is new from 08/05/2024. Pancreas: Unremarkable. Adrenals: Unremarkable. Kidneys: Excreted contrast in the renal collecting systems. Bilateral renal sinus cysts. Cortical cyst on the RIGHT. Symmetric nonspecific perinephric stranding Bowel: Removal of the enteric tube. Redemonstrated stent extending from the pylorus into the proximal duodenum. Tiny amount of presumed PO contrast in the stomach. Gaseous distention of the colon without marylou dilatation. Nondilated small bowel.. Normal caliber appendix. Lymph nodes: Unremarkable. Vasculature: Mild atherosclerosis. Peritoneum: [id number] volume ill-defined free fluid and air in the perisplenic/subdiaphragmatic region. No loculated collection evident in the absence of IV contrast. Tiny focus of high-density along the medial spleen is new from prior and could conceivably reflect extravasated PO contrast given suspected small amount of high-density presumed PO contrast within the stomach. Similar nonspecific presacral stranding. Bladder: Underdistended and suboptimally evaluated. Opacified by excreted contrast. Bladder wall thickening appears disproportionate to degree of underdistention.. Reproductive Organs: Prostatomegaly. Body Wall: Body wall edema has increased.. Bones: Mild thoracic levoscoliosis. Multilevel spondylosis.. CT/Abdomen/Pelvis without Cont IMPRESSION: 1. Redemonstrated small to moderate volume ill-defined free fluid and air in th e perisplenic/subdiaphragmatic region, suggesting perforated viscus, presumably related to previously suspected duodenal ulcer al though this is not definite and proximity of these findings to the stomach is noted. A tiny focus of high density along the media l spleen is new from prior and is suspicious for minimal extravasated PO contrast given a small amount of high-density presumed PO contrast within the stomach. 2. Findings suggestive of cystitis and/or chronic bladder outlet obstruction gi juan carlos prostatomegaly. Correlate with urinalysis. 3. Refer to recent CTA chest report for intrathoracic findings. 4. Additional description as above. Reading Location: [id number]
--- NOTE | 2024-08-09 09:59 | NURSING ---
When this RN obtained morning vital signs, temperature was 99.9 F. Oxygen saturation was 87% on RA, pt was encouraged to deep breathe. Oxygen saturation went up to 93% with deep breathing. Pt reports that he is very weak, tired, and it hurts to deep breathe. This RN notified Dr Spears of these findings. Dr Spears ordered chest CTA, CXR, procalcitonin labs, and supplemental potassium and phosphorus. [facility] radiology called floor to talk to Dr Spears. Dr Spears was told that the pt has bilateral PEs and there appears to be free fluid/free air around spleen. Dr Spears communicating with surgery and vascular. Dr Spears will talk to pt and pt family. Will continue to monitor.
[2024-08-09] MEDS: Pantoprazole Sodium 80 MG in 0.9% Normal Saline (100mL Bag) 80 ML 10 MG CONT INF (10:05)
--- NOTE | 2024-08-09 10:25 | NURSING ---
dr. weir, dr. bustos and dr. ambriz all notified CT of abd results are in the computer.
[2024-08-09] MEDS: Ciprofloxacin 400 MG/200 ML BAG 200 MG IV (11:03)
--- NOTE | 2024-08-09 11:17 | NURSING ---
night warehouse manager bisi updated on patient. aware laborer steel handling coming to get patient and primary RN aware
--- NOTE | 2024-08-09 11:29 | EX.PCM.CON.S ---
Assessment & Plan Assessment/Plan (1) Pulmonary embolism: QUALIFIERS: Pulmonary embolism type: multiple subsegmental (without acute cor pulmonale) Qualified Code(s): I26.94 - Multiple subsegmental thrombotic pulmonary emboli without acute cor pulmonale PLAN: -VC filter HPI Consult Data Date of Consult: 08/09/24 HPI Narrative HPI Narrative: LAINE GARCIA, is a 69 M who presents with dark stools and syncope. Found to have duodenal bleeding ulcers which were treated 08/07. Today he had episode of hypoxia and fever and CTA chest revealed small bilateral PE. The abdominal portion of the scan also revealed free air/fluid that was confirmed on dedicated abdominal CT. He has history of prior provoked DVT in 2016 which was treated with course of oral anticoagulation. REPLACED BY [facility] Medical History History of DVT (deep vein thrombosis) Mitral valve prolapse Home Medications ?Medication ?Instructions ?Recorded ?Last Taken ?Type aspirin 81 mg chewable tablet 81 mg PO DAILY heart health 01/22/20 08/05/24 History multivitamin 1 tab PO DAILY supplement 01/22/20 08/05/24 History omega-3 fatty acids 1,000 mg 2,000 mg PO BID supplement 01/22/20 08/05/24 History capsule turmeric 450 mg-turmeric root 1 cap PO DAILY supplement 01/22/20 08/05/24 History extract 50 mg capsule polyethylene glycol 3350 17 17 g PO DAILY PRN laxative effect 08/05/24 08/02/24 History gram/dose oral powder (ClearLax) psyllium husk 0.4 gram capsule 0.8 g PO BID 08/05/24 08/05/24 History (Daily Fiber) Allergy/AdvReac Type Severity Reaction Status Date / Time Penicillins AdvReac PT UNABLE Verified 08/05/24 13:12 TO RESPOND-NEEDS F/U Family History Father Myocardial infarction Mother CVA (cerebral vascular accident) Surgical History H/O shoulder surgery History of repair of hiatal hernia Social History Smoking Status: Never smoker alcohol intake: never ROS Constitutional Constitutional: Reports fever(s), lethargy and weakness; Denies frequent falls Eyes Eyes: Denies blind spots, change in vision or loss of vision ENT HEENT: Denies bleeding gums, hoarseness or sore throat Cardiovascular Cardiovascular: Reports abdominal pain; Denies bluish discoloration of hand/feet, chest pain with activity, claudication, cold extremities, cyanosis, dyspnea on exertion, erythema on extremities, irregular heart rhythm, leg edema, leg ulcers, numbness in extremities or weakness in extremities Respiratory/Chest Respiratory/Chest: Denies cough, excessive phlegm production, shortness of breath at rest, shortness of breath with exertion or wheezing Gastrointestinal Gastrointestinal: Reports change in stool character and melena; Denies anorexia, constipation, diarrhea or rectal bleeding Genitourinary Genitourinary: Denies dysuria or hematuria Musculoskeletal Musculoskeletal: Denies abnormal gait Integumentary Integumentary: Denies erythema, non-healing lesions or wounds Neurologic Neurologic: Denies abnormal speech, focal weakness, headache(s), loss of vision, numbness, paresthesias or sensory deficit Hematologic/Lymphatic Hematologic/Lymphatic: Denies easy bleeding, easy bruising or lymphadenopathy Physical Exam Const alert, oriented x3, no apparent distress and healthy appearing General Appearance: cooperative and ill appearing; Negative for combative or lethargic Orientation / Consciousness: awake Exam Limitations: no limitations HEENT Head and Scalp: normocephalic and atraumatic Mouth: oral and palatal mucosa normal, lips normal and tongue normal Eyes EOMs intact bilaterally General Eye: normal appearance of both eyes Neck full ROM General: trachea midline Resp normal respiratory effort and no use of accessory muscles Effort and Inspection: Negative for labored, stridor or audible wheezes Cardio regular rate and regular rhythm Back/Spine Cervical Spine: cervical ROM normal Extremity full ROM, normal capillary refill and no clubbing, cyanosis or edema Skin no rashes or lesions noted and no wounds Neuro oriented x3, CN's II-XII intact bilaterally, no focal motor deficits and no sensory deficits noted Psych thought process normal, cooperative, affect normal, speech normal and activity/motor behavior normal Lab / Micro Data 08/09/24 06:13 08/09/24 06:13 Labs: Laboratory Results - last 24 hr 08/09/24 06:13: WBC 12.1 H, RBC 3.43 L, Hgb 10.2 L, Hct 29.8 L, MCV 86.9, MCH 29.7, MCHC 34.2, RDW Std Deviation 46.7 H, RDW Coeff of Edna 14.7 H, Plt Count 223, MPV 9.5, Immature Gran % (Auto) 1.000 H, Neut % (Auto) 87.4 H, Lymph % (Auto) 5.5 L, [place] % (Auto) 5.4, Eos % (Auto) 0.5, Baso % (Auto) 0.2, Absolute Neuts (auto) 10.6 H, Absolute Lymphs (auto) 0.67 L, Nucleated RBC % 0, Sodium 139, Potassium 3.2 L, Chloride 106, Carbon Dioxide 24.4, Anion Gap 9, BUN 16, Creatinine 0.51 L, Estim Creat Clear Calc 88.72, Est GFR (MDRD) Non-Af 109, BUN/Creatinine Ratio 31.8 H, Glucose 116 H, Calcium 7.7, Phosphorus 1.3 L*, Magnesium 1.9, Procalcitonin 0.70 H Micro: Microbiology 08/09/24 08:10 Mucosa - Nose SARS-CoV-2, Influenza & RSV (PCR) - Final Imaging Radiology Impression Chest CTA 08/09/24 08:02 IMPRESSION: The study is positive for bilateral pulmonary embolism at the upper hilar level. Partially occlusive pulmonary embolism at the right upper lobe interlobar division for example axial 119 through 148 and branching of the interlobar arteries left upper lobe distally appearing occlusive for example axial 139 at the segment divisions and axial 109. No CT evidence of right heart strain. Moderate left and small right posterior layering pleural effusions with associated adjacent partial passive collapse, atelectasis. Limited images of the upper abdomen with findings concerning for areas of free air and free fluid left upper quadrant about the spleen, clinically correlate. Red Alert: Pulmonary embolism as described and findings concerning for possible free air and free fluid partially imaged visualized left upper quadrant The critical information above was relayed directly by me by telephone to Brandie Spears on 08/09/2024 at 9:18 am with readback verification. Reading Location: [id number] Abdomen/Pelvis CT 08/09/24 09:40 IMPRESSION: 1. Redemonstrated small to moderate volume ill-defined free fluid and air in the perisplenic/subdiaphragmatic region, suggesting perforated viscus, presumably related to previously suspected duodenal ulcer although this is not definite and proximity of these findings to the stomach is noted. A tiny focus of high density along the medial spleen is new from prior and is suspicious for minimal extravasated PO contrast given a small amount of high-density presumed PO contrast within the stomach. 2. Findings suggestive of cystitis and/or chronic bladder outlet obstruction given prostatomegaly. Correlate with urinalysis. 3. Refer to recent CTA chest report for intrathoracic findings. 4. Additional description as above. Reading Location: [id number]
--- NOTE | 2024-08-09 11:31 | NURSING ---
Pt sent to pit laborer for IVC stent placement with Dr Francisco. Pt's family going to waiting room and will come back to get belongings once a new room assignment is given post-op.
--- NOTE | 2024-08-09 12:07 | NURSING ---
discussed level of care with Dr. Spears, powerhouse laborer and household personal assistant for post IVC filter while awaiting on bed at [facility]. Aware to go to PCU post recovery. Credit Negotiator, cathlab and primary RN aware.
--- NOTE | 2024-08-09 13:45 | DS.PCM_ITS ---
Providers Date of Admission: 08/05/24 Date of Discharge: 08/09/24 Primary Care Physician: Dr. Dante Gurrola, Consultations 08/05/24 16:19 Consult: Gastroenterology Routine Consulting Provider: [facility] Reason for Consult: GI bleed EMERGENT Consult: No Notified: Yes Date Notified: 08/05/24 Time Notified: 15:00 Method of Notification: Verbal 08/09/24 09:20 Consult: General Surgery Routine Consulting Provider: Hector Bhakta Reason for Consult: Free intrabadomial air post EGD with multiple duodonal ulcers EMERGENT Consult: No Notified: Yes Date Notified: 08/09/24 Time Notified: 09:20 Method of Notification: Verbal Consult: Vascular Surgery Routine Consulting Provider: Lebron Francisco Reason for Consult: B PE with recent GIB EMERGENT Consult: No Notified: Yes Date Notified: 08/09/24 Time Notified: 09:21 Method of Notification: Verbal Reason For Visit: GI BLEED Diagnosis Discharge Diagnosis (1) Pulmonary embolism: Status: Acute Code(s): I26.99 - Other pulmonary embolism without acute cor pulmonale Qualifiers: Pulmonary embolism type: multiple subsegmental (without acute cor pulmonale) Qualified Code(s): I26.94 - Multiple subsegmental thrombotic pulmonary emboli without acute cor pulmonale Medications at Discharge Home Medications aspirin 81 mg chewable tablet 81 mg PO DAILY heart health 01/22/20 multivitamin 1 tab PO DAILY supplement 01/22/20 omega-3 fatty acids 1,000 mg capsule 2,000 mg PO BID supplement 01/22/20 turmeric 450 mg-turmeric root extract 50 mg capsule 1 cap PO DAILY supplement 01/22/20 polyethylene glycol 3350 17 gram/dose oral powder (ClearLax) 17 g PO DAILY PRN laxative effect 08/05/24 psyllium husk 0.4 gram capsule (Daily Fiber) 0.8 g PO BID 08/05/24 Hospital Course Procedures Blood transfusion, EGD (X 2 08/05/2024, 08/07/2024), EKG, IVC filter placement (08/09/2024) and - (KUB x 2/CT abdomen pelvis x 3/CTA chest) Summary of Care Provided Minutes Spent on Discharge: 43 Hospital Course: Mr. Ibarra is a 69-year-old Sabianism white male who presented to the emergency department at [facility] on 08/06/2019 2:25 syncopal episodes that he experienced at home and 1 episode of maroon-colored stools. Patient had been having abdominal discomfort with increasing epigastric pain for several months prior to presentation. He felt it was due to constipation. He had been taking aspirin for previous blood clots.. He states he had blood clots in 2016 after surgery for a hiatal hernia and then after he was told to take aspirin on a regular basis. Vital signs on presentation showed a temperature of 98.8, heart rate 74, respiratory was 13, blood pressure was 121/70 and pulse ox was 99% on room air. CBC showed a mildly elevated white count of 12.1, anemia with a hemoglobin of 8.9 and normal platelet count. His chemistry panel was unremarkable other than an elevated BUN to serum creatinine ratio at 48 and 0.76. Blood glucose was 180 at the time of presentation. UA was unremarkable except for ketones. A CT of the abdomen pelvis was performed and showed punctate gas with in the proximal duodenum and mild duodenal thickening which was felt consistent with duodenitis or nonperforated duodenal ulcer. He was admitted to the hospital and placed on a Protonix drip, given clear liquid diets, serial H&H's were performed and his aspirin was held. Gastroenterology was consulted for possible EGD. He was taken for EGD on the same day of presentation and he was found to have a normal esophagus with 5 spurting cratered duodenal ulcers and visible vessels in the duodenal bulb and the first portion of the duodenum. The largest lesions was 30 mm in dimension. The area was injected with 7 mL of epinephrine and coagulation for hemostasis was performed using argon plasma. He also had 2 nonbleeding cratered duodenal ulcers with no stigmata of bleeding in the second portion of duodenum that were treated with argon plasma as well. Patient had good hemostasis on endoscopy review at the end of the procedure. He was then admitted to the ICU where he was monitored close procedure. He did complain of an ongoing feeling of weakness throughout his hospital stay. Unfortunately, his hemoglobin dropped from 08/06/2024 through 08/08/2019 25-6.4 and he was transfused a total of 5 units packed red blood during his hospitalization. Given the acute drop in his hemoglobin GI was consulted and he was taken back to the endoscopy suite for repeat EGD. EGD on 08/07/2024 showed many oozing cratered duodenal ulcers with visible vessel in the duodenal bulb and the first portion of duodenum that were injected with 10 mL of epinephrine, coagulation for hemostasis using argon plasma and 5 clips were placed for hemostasis. A stent was also placed in the gastric pylorus as the patient appeared to have gastric outlet obstruction. Hemoglobin clinically stabilized in the 10-10.5 range and remained stable throughout the rest of his hospitalization. He was started on a clear liquid diet and maintained on a Protonix drip as well as Carafate on 08/08/2024. I was called in the morning of 08/09/2024 due to mild temperature elevation at 99.9, the feeling of general malaise, mild hypoxia with a oxygen saturation of 89% and a bit of upper abdominal and chest pain. With his history of VTE, I felt it prudent to obtain a CTA of the chest which we performed. CT was called to me by radiology and noted bilateral PEs as well as free air in the left upper quadrant near the spleen. He also had a small to moderate left pleural effusion present. Given the suspected free air a dedicated CT of the abdomen pelvis was performed and again reflected free air. Given the above, vascular surgery was consulted for IVC filter placement which was performed on 08/09/[address] Francisco. At the removal of the filter and may be discontinued once the patient can be anticoagulated again in the future. 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 With the free air identified under the diaphragm General Surgery was consulted. Dr. Bhakta reviewed the images and indicated that we would not be able to perform the surgery required at this institution and recommended transfer. The patient was notified and the above was discussed with him. Family preferred transfer that [place] for proximity purposes and call was made to [facility]. Dr. Michael Qureshi accepted the patient for transfer after discussing the case with Dr. Bhakta and reviewing the images. He requested transfer to the emergency department as he was concerned he would have to take the patient directly to the OR. The patient was transferred in guarded but stable condition to [facility] on 08/09/2024. Antibiotics including ciprofloxacin and Flagyl were continued as they were started after his second scope he was maintained on a Protonix drip and IVC filter was placed prior to discharge. Patient will need follow-up with Dr. Francisco in the future. Discharge diagnoses: Perforated viscus Acute bilateral PE without cor pulmonale Upper GI bleed Multiple bleeding duodenal ulcers Acute anemia secondary to GI bleed Leukocytosis Hypokalemia Hypophosphatemia Acute hypotension History of DVT History of mitral valve prolapse Physical Exam Const alert, oriented x3, no apparent distress, average body habitus and no limitations Constitutional Narrative: Older, Sabianism male, lying in bed, family at bedside, appears mildly uncomfortable, does not appear toxic General Appearance: cooperative, comfortable, well kempt and well developed Exam Limitations: no limitations Nutritional Appearance: thin HEENT normocephalic, head/scalp atraumatic, hearing grossly normal bilaterally, moist oral mucous membranes, oropharynx normal and gingiva normal HEENT Narrative: Mallampati is 2, no thrush Eyes PERRL, EOMs intact bilaterally and conjunctivae normal Eyes Narrative: No scleral icterus Neck supple Neck Narrative: Trachea midline Resp normal respiratory effort, normal air movement, no retractions, no use of accessory muscles and clear to auscultation bilaterally Auscultation: Negative for rales, rhonchi or wheezes Cardio regular rate, regular rhythm, S1 normal heart sound, S2 normal heart sound, no murmurs, no rub, no gallops and no clicks GI soft to palpation GI Narrative: Mild to moderate tenderness in left upper quadrant, bowel sounds are mildly hypoactive, no significant distention, abdomen is not rigid Extremity no clubbing, cyanosis or edema Extremity Narrative: Pedal and radial pulses are 2+ Skin skin turgor normal and no jaundice Skin Narrative: Skin is pale Neuro oriented x3, moves all extremities and no focal motor deficits Speech: speech normal Psych thought process normal, cooperative and affect normal Psych Narrative: Very pleasant, interacts appropriately, eye contact is good Weight / BMI Weight Weight: 82.2 kg Body Mass Index (BMI) 25.9 ABG / Lab / Microbiology Data 08/09/24 06:13 08/09/24 06:13 Laboratory: Laboratory Results - last 24 hr 08/09/24 06:13: WBC 12.1 H, RBC 3.43 L, Hgb 10.2 L, Hct 29.8 L, MCV 86.9, MCH 29.7, MCHC 34.2, RDW Std Deviation 46.7 H, RDW Coeff of Edna 14.7 H, Plt Count 223, MPV 9.5, Immature Gran % (Auto) 1.000 H, Neut % (Auto) 87.4 H, Lymph % (Auto) 5.5 L, [place] % (Auto) 5.4, Eos % (Auto) 0.5, Baso % (Auto) 0.2, Absolute Neuts (auto) 10.6 H, Absolute Lymphs (auto) 0.67 L, Nucleated RBC % 0, Sodium 139, Potassium 3.2 L, Chloride 106, Carbon Dioxide 24.4, Anion Gap 9, BUN 16, C reatinine 0.51 L, Estim Creat Clear Calc 88.72, Est GFR (MDRD) Non-Af 109, B UN/Creatinine Ratio 31.8 H, Glucose 116 H, Calcium 7.7, Phosphorus 1.3 L*, Magnesium 1.9, Procalcitonin 0.70 H Microbiology: Microbiology 08/09/24 09:20 Mucosa - Nasopharyngeal Respiratory Panel (PCR) - Final 08/09/24 08:10 Mucosa - Nose SARS-CoV-2, Influenza & RSV (PCR) - Final Radiography Diagnostic Testing: Radiology Impression Chest CTA 08/09/24 08:02 IMPRESSION: The study is positive for bilateral pulmonary embolism at the upper hilar level. Partially occlusive pulmonary embolism at the right upper lobe interlobar division for example axial 119 through 148 and branching of the interlobar arteries left upper lobe distally appearing occlusive for example axial 139 at the segment divisions and axial 109. No CT evidence of right heart strain. Moderate left and small right posterior layering pleural effusions with associated adjacent partial passive collapse, atelectasis. Limited images of the upper abdomen with findings concerning for areas of free air and free fluid left upper quadrant about the spleen, clinically correlate. Red Alert: Pulmonary embolism as described and findings concerning for possible free air and free fluid partially imaged visualized left upper quadrant The critical information above was relayed directly by me by telephone to Brandie Spears on 08/09/2024 at 9:18 am with readback verification. Reading Location: [id number] Abdomen/Pelvis CT 08/09/24 09:40 IMPRESSION: 1. Redemonstrated small to moderate volume ill-defined free fluid and air in the perisplenic/subdiaphragmatic region, suggesting perforated viscus, presumably related to previously suspected duodenal ulcer although this is not definite and proximity of these findings to the stomach is noted. A tiny focus of high density along the medial spleen is new from prior and is suspicious for minimal extravasated PO contrast given a small amount of high-density presumed PO contrast within the stomach. 2. Findings suggestive of cystitis and/or chronic bladder outlet obstruction given prostatomegaly. Correlate with urinalysis. 3. Refer to recent CTA chest report for intrathoracic findings. 4. Additional description as above. Reading Location: [id number] D/C Instructions DC O2, CPAP, BIPAP Needs Home O2 Discharge instructions: No Meaningful Use Info Meaningful Use Meaningful Use Diagnoses (Choose all that apply): None applicable Ischemic Stroke Statin Dosing Therapy Reference: STATIN DOSE THERAPY REFERENCE: * Patients > 75 years receive moderate or high dose statin therapy. * Patients 75 years or YOUNGER should receive HIGH intensity statin dose unless contraindicated. You will be required to document reason for non-treatment if statin daily dose does not meet guidelines. HIGH DOSE STATIN THERAPY DAILY Atorvastatin > than or = to 40 mg Rosuvastatin > than or = to 20 mg Amlodipine + Atorvastatin > than or = to 2.5/40 mg Ezetimibe + Simvastatin 10/80 mg Simvastatin 80mg Discharge Plan Admission Admit Date/Time: 08/05/24 15:43 Primary Reason for Your Visit: Radha Attending Provider: Brandie Spears Primary Care Provider: Dante Gurrola Consulting Providers: Derrick Yadav; Melonie Odell; Hector Bhakta; Lebron Francisco Discharge Orders/Prescriptions Prescriptions: No Action aspirin 81 MG tablet,chewable 81 mg PO DAILY multivitamin 1 EACH tablet 1 tab PO DAILY omega-3 fatty acids 1,000 MG capsule 2,000 mg PO BID turmeric-turmeric root extract 1 EACH capsule 1 cap PO DAILY polyethylene glycol 3350 [ClearLax] 17 gram/dose powder 17 g PO DAILY PRN (Reason: laxative effect) psyllium husk [Daily Fiber] 0.4 gram capsule 0.8 g PO BID Referrals / Follow Up: Dante Gurrola DO [Primary Care Provider] - Disposition Disposition (needs filled in before D/C Order can be placed): Acute Care Hospital Charges/Coding Visit Charges Inpatient E&M: 71714 Disch Hosp >30min
--- NOTE | 2024-08-09 16:12 | OP.PCM_ITS ---
Operative Report (Standard) Operative Information Date of Procedure: 08/09/24 Pre-Operative Diagnosis: PE, GI bleed Post-Operative Diagnosis: same Surgery/Procedure Performed: insertion IVC filter checkout supervisor: No Type of Anesthesia: Local and Sedation,Conscious RN Documented Start/Stop Times: Operation Date: 08/07/24 16:30 Case Time Into Pre-Op 08/07/24 15:54 Anesthesia Start 08/07/24 16:52 Into Room 08/07/24 16:52 Procedure Start 08/07/24 17:11 Procedure End 08/07/24 17:53 Anesthesia End 08/07/24 18:05 Out of Room 08/07/24 18:05 Into Recovery 08/07/24 18:14 Out of Recovery 08/07/24 19:01 Procedure Start Time: 11:45 Procedure Stop Time: 11:55 Select all DRAINS/GRAFTS/IMPLANTS that apply: Implanted device Implanted device details: Cook Celect filter Estimated Blood Loss: 3 Specimen collected: No Description of surgery: HPI: Patient is a 69-year-old male who was admitted with significant GI bleed with multiple bleeding duodenal ulcers requiring treatment with cautery, injection, clips. He has a history of remote DVT and is not currently on anticoagulation. He had an episode of hypoxia today and a CTA was performed which revealed bilateral pulmonary emboli as well as suggestion of some intra- abdominal catastrophe that his evolving. Plan is to transfer him to a tertiary facility but an IVC filter is felt to be appropriate to protect him from further embolic events while either awaiting transfer or during his subsequent care. He is taken now for an emergent inferior vena cava filter placement. Description of procedure: Upon obtaining form consent and verification correct patient procedure site the patient was taken to the [facility] where he was positioned prepped and draped in usual sterile fashion. Time was performed to find sedation administered Versed and fentanyl. Skin overlying the right common femoral vein was anesthetized 1% lidocaine the vessel accessed under ultrasound guidance with a micropuncture needle wire. This then exchanged for micropuncture sheath routine injection ilio caval venogram was performed revealing satisfactory positioning with no extravasation or dissection and revealed a patent right iliac vein system. Through the micropuncture sheath a J-wire was advanced the micropuncture sheath exchanged for the Cook Celect filter delivery sheath and positioned at the L2 vertebral body. From this position subtraction venacavogram was performed revealing normal caliber vena cava that was patent and free of thrombus. This also revealed the confluence of the renal veins which were marked on the screen. The Cook Celect filter was then advanced and positioned below the lowest renal vein deployed. Completion venacavogram was performed revealing satisfactory positioning with minimal tilt. The sheath was noted manual pressure held for 10 minutes until hemostasis was obtained. The patient was then taken to the PCU for bedrest and recovery prior to his anticipated transfer to a tertiary facility. Surgical Findings: see above Complications Complications: No
--- NOTE | 2024-08-09 17:17 | PN_ITS ---
Progress Note Patient was seen by hospitalist this morning with complaints of shortness of breath. He got a CT of the chest and it showed bilateral pulmonary emboli. During the CT scan abdomen pelvis noticed some air underneath the diaphragm near the spleen. Vascular surgery was consulted to put a temporary IVC filter. Physical Exam Const alert, oriented x3 and average body habitus Resp normal respiratory effort, normal air movement and clear to auscultation bilaterally Cardio regular rate, regular rhythm, no murmurs and diaphoretic Assessment & Plan Assessment/Plan (1) Duodenal ulcer: (2) Abdominal pain: (3) Orthostatic hypotension: PLAN: Plan 69-year-old gentleman with Acute on chronic anemia due to acute bleeding peptic ulcer secondary to possible NSAID induced injury from aspirin. * Originally patient admitted with complaint of abdominal pain and maroon- colored stools as well as syncope. He had EGD which showed normal esophagus and no gross lesions in the entire stomach and showed spurting duodenal ulcers with a visible vessel which was injected and treated with argon plasma coagulation and a nonbleeding duodenal ulcer with no stigmata of bleeding which was also treated with argon plasma coagulation * Hemoglobin dropped to 6.4 y so he was transfused with 2 more units of packed red blood cells. On pantoprazole drip * His hemoglobin went back up to 10.4 and today is 9.8. He underwent repeat upper endoscopy yesterday. And had his duodenal ulcer treated again with epinephrine argon plasma coagulation and cautery. He also had a duodenal stent placed with severe stricture with gastric outlet obstruction. He had a lot of retained gas consistent with ileus after the procedure so NG tube was placed. NG tube came out overnight. His CT scan had showed improvement of gas without any signs of pneumoperitoneum. He is continues to improve. If he does well we will advance his diet as tolerated tomorrow. 08/09/2024-patient will be transferred to higher level of care for as it is assumed that he has air underneath the diaphragm secondary to worsening duodenal ulcer. This is recommended by general surgery as he may need a more advanced procedure than we can provide at this institution. Visit Charges Inpatient E&M: 26661 Subs Hosp L3
--- NOTE | 2024-08-09 18:01 | NURSING ---
report called to sherin Savage
== END 2024-08-09 17:37 | disposition short-term general hospital (02) | DRG 377 ==
LOC: ED 15:28 → MS3 15:46 → ICU 08-08 06:58 → PCU 08-09 13:46 → ICU 08-11 09:28 → PCU 08-11 09:28 → MS3 08-11 09:28
PROVIDERS: Internal Medicine Gastroenterology; Student in an Organized Health Care Education/Training Program; Admitting Provider Family Medicine; Emergency Provider Emergency Medicine; PCP Family Medicine; Visit Provider Internal Medicine
PROC: 0DJ08ZZ Inspection of Upper Intestinal Tract, Via Natural or Artificial Opening Endoscopic (ICD-10-PCS; CPT 43235; principal; 2024-08-05 17:45)
DX: K26.4 Chronic or unspecified duodenal ulcer with hemorrhage (principal); I26.94 Multiple subsegmental thrombotic pulmonary emboli without acute cor pulmonale; K31.1 Adult hypertrophic pyloric stenosis; J90 Pleural effusion, not elsewhere classified; D62 Acute posthemorrhagic anemia; E83.39 Other disorders of phosphorus metabolism; I34.1 Nonrheumatic mitral (valve) prolapse; I95.1 Orthostatic hypotension; E87.6 Hypokalemia; R19.8 Other specified symptoms and signs involving the digestive system and abdomen; I49.1 Atrial premature depolarization; R09.02 Hypoxemia; Z79.82 Long term (current) use of aspirin; Z86.718 Personal history of other venous thrombosis and embolism
CPT/HCPCS: 36415; 37191; 71275; 74018; 74176; 74177; 76000; 76937; 80048; 80053; 81001; 83735; 84100; 84145; 85014; 85018; 85025; 85610; 85730; 86850; 86900; 86901; 87631; 87633; 88305; 88342; 93005; 94762; 99152; 99153; 99285; C1876; C1880; C1889; C1894; P9016; Q9967; A4216; C1769; J0744; J2405

== ENCOUNTER 2024-09-09 06:29 | Emergency (ER) | payer OTHER, SELFPAY ==
[2024-09-09 06:30] VITALS: BP 112/65; PULSE 68; RESP 20; TEMP 36.4; O2SAT 99; BMI 25.7
--- OUTSIDE RECORDS SUMMARY | 2024-09-09 06:59 | XMS RPT_ITS | CCD ---
Author Organization [facility] Care Team Providers Care Perl Developer Name Role Phone LAINE HARMAN DO Admitting Unavailable LAINE HARMAN DO Attending Unavailable LAINE HARMAN DO Primary Care Unavailable DANTE GURROLA MD Referring Unavailable DANTE GURROLA MD Consulting Unavailable PROVIDER, UNKNOWN Consulting Unavailable Dr. Dante Gurrola DO Primary Care Provider Dr. Alf Santiago DO Attending Provider Dr. Alf Santiago DO Emergency Provider Dr. Dante Gurrola DO Referring Provider Gaurang PALENCIA-CRuba Attending Provider Wally Valdez MD Emergency Provider Vicenta OWENS, Dr. Derrick Burgos Admit Provider Dr. Derrick Yadav MD Other Provider [phone] Dr. Brandie Spears DO Attending Provider Cass OWENS, Dr. Melonie Fernandez Other Provider [phone] Dr. Hector Bhakta MD Other Provider Maryam OWENS, Dr. Diana Other Provider Valencia WORD PROCESSING OPERATOR-CRachana Primary Care Provider [phone] Dr. Betito Avendano DO Attending Provider Dr. Melonie Odell MD Attending Provider Dr. Brandie Spears DO Other Provider Maryam OWENS, Dr. Diana Attending Provider [phone] Unavailable Primary Care Provider Unavailaren e Izabela, Dante Primary Care Provider [phone] Vicenta OWENS, Dr. Derrick Burgos Referring Provider Dr. Brandie Spears DO Referring Provider Manuela Miller Attending Provider [phone] NONE, PCP Referring Unavailable POZSGAY ZARA Attending Unavailable POZSGAY, ZARA Admitting Unavailable POZSGAY ZARA Attending Unavailable IZABELA, DANTE Primary Care Unavailable IZABELA, DANTE Primary Care Unavailable VALERIA NEGRON Admitting Unavailable VALERIA NEGRON Attending Unavailable Derrick Yadav Admitting Unavailable Derrick Yadav Consulting Unavailable Izabela, Dante Primary Care Unavailable Brandie Spears Attending Unavailable Cass, Melonie Rebecca Consulting Unavailable Hector Bhakta Consulting Unavailable Lebron Francisco Consulting Unavailable Brandie Spears Consulting Unavailable Izabela, Dante Referring Unavailable Betito Avendano Attending Unavailable Izabela, Dante Primary Care Unavailable Izabela, Dante Primary Care Unavailable Alf Santiago Attending Unavailable Izabela, Dante Primary Care Unavailable Derrick Yadav Admitting Unavailable Derrick Yadav Consulting Unavailable Brandie Spears Attending Unavailable Cass, Melonie Rebecca Consulting Unavailable Hector Bhakta Consulting Unavailable Lebron Francisco Consulting Unavailable Izabela, Dante Referring Unavailable Izabela, Dante Primary Care Unavailable Manuela Vazquez Attending Unavailable Izabela, Dante Referring Unavailable Izbaela, Dante Primary Care Unavailable Ruba Merlos Attending Unavailable Betito Avendano Attending Unavailable Brandie Spears Referring Unavailable Rachana Birmingham Primary Care Unavailable Derrick Yadav Attending Unavailable Derrick Yadav Referring Unavailable Melonie Odell Attending Unavailable Lebron Francisco Attending Unavailable Allergies Allergy Classification Reported Allergen(s) Allergy Type Date of Onset Reaction(s) Facility (1 source) Penicillin Drug Allergy [facility] Repository (3 sources) Penicillins Propensity to adverse reactions 5 PT UNABLE TO RESPOND-NEEDS F/U [facility] Comment on above: pt states he was you ng and doesnt remember. (5 sources) Penicillins Propensity to adverse reactions 5 [employer] (1 source) Penicillins Drug allergy (disorder) 5 [facility] Repository Medications Current Medications Medication Drug Class(es) Dates Sig (Normalized) Sig (Original) Multiple Vitamins-Minerals (multivitamin with minerals) tablet (5 sources) take 1 tablet by mouth once daily Multiple Vitamins-Minerals (multivitamin with minerals) tablet Take 1 tablet by mouth daily. Active Multivitamin 1 EACH tablet (3 sources) Start: 01-22-2020 Multivitamin 1 EACH tablet Active 1 {tbl} PO DAILY January 22, 2020 12:00am Arnold-3 Fatty Acids 1,000 MG capsule (3 sources) Start: 01-22-2020 take 1 capsule by mouth twice daily Arnold-3 Fatty Acids 1,000 MG capsule Active 2000 mg PO TWICE A DAY January 22, 2020 12:00am polyethylene glycol 3350 52193 mg powder for oral solution (3 sources) Osmotic Laxative Start: 08-05-2024 Polyethylene Glycol 3350 (Clearlax) 17 gram/dose powder Active 17 g PO DAILY as needed for laxative effect August 05, 2024 12:00am psyllium 400 mg oral capsule (3 sources) Start: 08-05-2024 Psyllium Husk (Daily Fiber) 0.4 gram capsule Active 0.8 g PO TWICE A DAY August 05, 2024 12:00am Turmeric-Turmeric Root Extract (3 sources) Start: 01-22-2020 take 1 capsule by mouth once daily Turmeric-Turmeric Root Extract 1 EACH capsule Active 1 NMA PO DAILY January 22, 2020 12:00am Completed/Discontinued Medications Medication Drug Class(es) Dates Sig (Normalized) Sig (Original) acetaminophen 325 mg oral tablet (2 sources) Start: 08-10-2024 End: 08-13-2024 take 1 tablet by mouth every six hours 650 mg, Oral, Every 6 hours, First dose on Leigh Ann 08/10/24 at 0200 albuterol 0.833 mg/ml / ipratropium bromide 0.167 mg/ml inhalation solution (2 sources) Anticholinergic, beta2-Adrenergic Agonist Start: 08-12-2024 End: 08-13-2024 3 mL, Nebulization, Every 8 hours, First dose (after last modification) on 08/12/24 at 0730 apixaban 5 mg oral tablet (2 sources) Factor Xa Inhibitor Start: 09-01-2024 take 1 tablet by mouth twice daily Apixaban (Eliquis) 5 mg tablet Discontinued 5 mg PO TWICE A DAY September 01, 2024 12:00am Start: 08-25-2024 End: 11-30-2024 take 2 tablets by mouth twice daily in the evening, then take 1 tablet by mouth twice daily apixaban (Eliquis) 5 MG tablet Take 2 tablets (10 mg) by mouth 2 times daily for 7 days, THEN 1 tablet (5 mg) 2 times daily. 208 tablet 08/25/2024 4:28 PM EDT 08/25/2024 11/30/2024 Active aspirin 81 mg chewable tablet (5 sources) Platelet Aggregation Inhibitor, Nonsteroidal Anti-inflammatory Drug Start: 01-22-2020 End: 08-22-2024 take 1 tablet by mouth once daily Aspirin 81 MG tablet,chewable Discontinued 81 mg PO DAILY January 22, 2020 12:00am August 22, 2024 9:18am End: 08-13-2024 take 1 tablet by mouth once daily aspirin 81 MG EC tablet Take 81 mg by mouth daily. 08/13/2024 Discontinued (Stop taking at discharge) calcium chloride 0.0014 meq/ml / potassium chloride 0.004 meq/ml / sodium chloride 0.103 meq/ml / sodium lactate 0.028 meq/ml injectable solution (4 sources) Start: 08-09-2024 End: 08-13-2024 take 75 mL intravenously every hour 75 mL/hr, IntraVENous, Continuous, Starting on Leigh Ann 08/10/24 at 0200 Capsicum (Cayenne) (3 sources) Start: 01-22-2020 End: 08-05-2024 take 1 capsule by mouth once daily Capsicum (Cayenne) 450 MG capsule Discontinued 450 mg PO DAILY January 22, 2020 12:00am August 05, 2024 2:35pm diatrizoate meglumine-sodium (Gastrografin) 66-10 % solution 30 mL (6 sources) Start: 08-11-2024 End: 08-11-2024 take 30 mL by mouth once 30 mL, Oral, Once, On 08/11/24 at 1045, For 1 dose, Administered at the time of the exam. Start: 08-10-2024 End: 08-10-2024 take 30 mL by mouth once 30 mL, Oral, Once, On Leigh Ann 08/10/24 at 0915, For 1 dose, Administered at the time of the exam. Start: 08-09-2024 End: 08-09-2024 30 mL, Oral, Once, On 08/09/24 at 1950, For 1 dose, 1. INPATIENTS 30ML GASTROGRAFIN MIXED IN 32OZ OF WATER-DRINK HALF 2 HRS BEFORE AND THE HALF 1HR BEFORE EXAM. 2. EMERGENCY PATIENTS 30ML GASTROGRAFIN MIXED IN 32OZ OF WATER AND WAIT 1 HOUR THEN SCAN. dicyclomine hydrochloride 20 mg oral tablet (5 sources) Anticholinergic Start: 05-06-2024 End: 07-25-2024 take 1 tablet by mouth three times daily Dicyclomine 20 mg tablet Discontinued 20 mg PO THREE TIMES A DAY May 06, 2024 1:00am July 25, 2024 9:24am thoracentesis. EXAM DATE AND TIME: 08/12/2024 9:43 AM EDT INDICATION: L pleural effusion ADDITIONAL INFORMATION: 69-year-old male with a left pleural effusion presents for ultrasound-guided thoracentesis COMPARISON: None INFORMED CONSENT: Written informed consent was obtained. The procedure, risks, benefits, and alternatives were discussed. All questions were answered. TIMEOUT: Physician-led timeout was conducted documenting correct patient, procedure, site, fire risk, antibiotics and allergies. COMPLICATIONS: None. ESTIMATED BLOOD LOSS: Less than 10 mL. MEDICATIONS: Antibiotics: None. Contrast dose: None. STERILE TECHNIQUE: All elements of maximal sterile technique were applied: cap, mask, sterile gown, proper hand hygiene including sterile gloves, a large sterile sheet, and hospital-approved cutaneous antisepsis at the site (2% chlorhexidine). A sterile probe cover and sterile gel were also used to ensure ultrasound sterility. ANESTHESIA/SEDATION: Local. PROCEDURE/TECHNIQUE: The patient was positioned in the sitting position on a hospital bed. Ultrasound surveillance of the posterior left chest was performed and a suitable needle entry site was designated. The site was then prepped and draped in the usual aseptic fashion. Local anesthesia was achieved with 1% lidocaine solution. A 5 Chinese Yueh catheter over its stylette was advanced into the left sided pleural effusion under direct ultrasound guidance. An ultrasound spot image was then obtained. The inner stylette was withdrawn and the catheter hub was connected to a suction canister and extension tubing. A total of about 700 mL of left colored pleural fluid was then withdrawn. Repeat ultrasound interrogation was performed and a spot image was obtained. The catheter was removed and local hemostasis was achieved with manual compression. A sterile dressing was applied. The patient tolerated the procedure well without immediate complication and was transferred from the interventional suite in stable condition. FINDINGS: Ultrasound spot image demonstrates the targeted left pleural effusion. Postprocedural spot image shows interval reduction in the volume of pleural fluid. IMPRESSION: Technically successful uncomplicated left thoracentesis yielding 700 mL of straw colored pleural fluid. Report Dictated on Electronically Signed By: Beto Jackson MD Electronically Signed Date/Time: 08/12/2024 11:29 AM EDT Normal [facility] 30on 08-11-2024 30 Problem: Pain - Adul t Goal: Verbalizes/displays adequate comfort level or baseline comfort level Outcome: Progressing Problem: Safety - Adult Goal: Free from fall injury Outcome: Progressing Problem: Discharge Planning Goal: Discharge to home or other facility with appropriate resources Outcome: Progressing Normal [facility] CBC W Auto Differential pane l (Bld)Ordered By: Consuelo Blanton on 08-11-2024 Basophils (Bld) [#/Vol] 0 10*3/uL 0.0 - 0.2 10*3/uL [facility] Basophils/100 WBC (Bld) 0 % 0.0 - 2.0 % [facility] Eosinophils (Bld) [#/Vol] 0 10*3/uL 0.0 - 0.5 10*3/uL [facility] Eosinophils/100 WBC (Bld) 0 % 0.0 - 6.0 % [facility] Erythrocyte distribution width (RBC) [Ratio] 14.6 % 11.5 - 15.0 % [facility] Hematocrit (Bld) [Volume fraction] 30.9 % Low 40.0 - 52.0 % [facility] Hemoglobin (Bld) [Mass/Vol] 10.4 g/dL Low 13.0 - 18.0 g/dL [facility] Immature granulocytes (Bld) [#/Vol] 0.1 10*3/uL High NINF - 0.1 10*3/uL [facility] Immature granulocytes/100 WBC (Bld) 0.6 % 0.0 - 2.0 % [facility] Interpretation and review of laboratory results Abnormal [facility] Lymphocytes (Bld) [#/Vol] 0.4 10*3/uL Low 1.0 - 4.3 10*3/uL [facility] [employer] Lymphocytes/100 WBC (Bld) 3 % Low 15.0 - 45.0 % [facility] MCH (RBC) [Entitic mass] 29.5 pg 26.0 - 34.0 pg [facility] MCHC (RBC) [Mass/Vol] 33.7 % 30.5 - 36.0 % [facility] MCV (RBC) [Entitic vol] 87.8 fL 77.0 - 99.0 fL [facility] Monocytes (Bld) [#/Vol] 0.6 10*3/uL 0.0 - 0.9 10*3/uL [facility] Monocytes/100 WBC (Bld) 4.7 % Low 5.0 - 13.0 % [facility] Neutrophils (Bld) [#/Vol] 10.8 10*3/uL High 1.8 - 7.5 10*3/uL [facility] Neutrophils/100 WBC (Bld) 91.7 % High 38.0 - 82.0 % [facility] Nucleated RBC/100 WBC (Bld) [Ratio] 0 % [facility] Platelet mean volume (Bld) [Entitic vol] 9.4 fL 9.0 - 12.7 fL [facility] Platelets (Bld) [#/Vol] 270 10*3/uL 140 - 440 10*3/uL [facility] RBC (Bld) [#/Vol] 3.52 10*6/uL Low 4.40 - 5.9 0 10*6/uL [facility] WBC (Bld) [#/Vol] 11.8 10*3/uL High 3.6 - 10.7 10*3/uL [facility] CBC WITH AUTO DIFFERENTIALon 08-11-2024 Basophils (Bld) [#/Vol] 0.0 10*3/uL Normal 0.0-0.2 [facility] Comment on above: Performed By: #### L [id number] #### Barrel Turner: CARMEL HOWARD ([id number]) [facility]) [address] [place] [address] Basophils/100 WBC (Bld) 0.0 % Normal 0.0-2.0 S [facility] Comment on above: Performed By: #### L [id number] #### Barrel Turner: CARMEL HOWARD ([id number]) [facility]) [address] [place] [address] Eosinophils (Bld) [#/Vol] 0.0 10*3/uL Normal 0.0-0.5 [facility] Comment on above: Performed By: #### L [id number] #### Barrel Turner: CARMEL HOWARD ([id number]) [facility]) [address] [place] [address] Eosinophils/100 WBC (Bld) 0.0 % Normal 0.0-6.0 [facility] Comment on above: Performed By: #### L [id number] #### Barrel Turner: CARMEL HOWARD ([id number]) [facility]) [address] [place] [address] Erythrocyte distribution width (RBC) [Ratio] 14.6 % Normal 11.5-15.0 [facility] Comment on above: Performed By: #### L [id number] #### Barrel Turner: CARMEL HOWARD ([id number]) [facility]) [address] [place] [address] Hematocrit (Bld) [Volume fraction] 30.9 % Low 40.0-52.0 [facility] Comment on above: Performed By: #### L [id number] #### Barrel Turner: CARMEL HOWARD ([id number]) [facility]) [address] [place] [address] Hemoglobin (Bld) [Mass/Vol] 10.4 g/dL Low 13.0-18.0 [facility] Comment on above: Performed By: #### L [id number] #### Barrel Turner: CARMEL [id number]) [facility] ([facility]) [address] [place] [address] IMMATURE GRANS % 0.6 % Normal 0.0-2.0 [facility] Comment on above: Performed By: #### L [id number] #### Barrel Turner: CARMEL HOWARD ([id number]) [facility]) [address] [place] [address] IMMATURE GRANS ABSOLUTE 0.1 10*3/uL High <0.1 [facility] Comment on above: Performed By: #### L [id number] #### Barrel Turner: CARMEL HOWARD ([id number]) [facility] ([facility]) [address] [place] [address] Lymphocytes (Bld) [#/Vol] 0.4 10*3/uL Low 1.0-4.3 [facility] Comment on above: Performed By: #### L [id number] #### Barrel Turner: CARMEL HOWARD ([id number]) [facility] ([facility]) [address] [place] [address] Lymphocytes/100 WBC (Bld) 3.0 % Low 15.0-45.0 [facility] Comment on above: Performed By: #### L [id number] #### Barrel Turner: CARMEL HOWARD ([id number]) [facility]) [address] [place] [address] MCH (RBC) [Entitic mass] 29.5 pg Normal 26.0-34.0 [facility] Comment on above: Performed By: #### L [id number] #### Barrel Turner: CARMEL HOWARD ([id number]) [facility]) [address] [place] [address] MCHC 33.7 % Normal 30.5-36.0 [facility] Comment on above: Performed By: #### L [id number] #### Barrel Turner: CARMEL HOWARD ([id number]) [facility]) [address] [place] [address] MCV (RBC) [Entitic vol] 87.8 fL Normal 77.0-99.0 [facility] Comment on above: Performed By: #### L [id number] #### Barrel Turner: CARMEL HOWARD ([id number]) [facility] ([facility]) [address] [place] [address] Monocytes (Bld) [#/Vol] 0.6 10*3/uL Normal 0.0-0.9 [facility] Comment on above: Performed By: #### L [id number] #### Barrel Turner: CARMEL HOWARD ([id number]) [facility] ([facility]) [address] [place] [address] Monocytes/100 WBC (Bld) 4.7 % Low 5.0-13.0 [facility] Comment on above: Performed By: #### L [id number] #### Barrel Turner: CARMEL HOWARD ([id number]) [facility] ([facility]) [address] [place] [address] NEUTROPHILS ABSOLUTE 10.8 10*3/uL High 1.8-7.5 [facility] Comment on above: Performed By: #### L [id number] #### Barrel Turner: CARMEL HOWARD ([id number]) [facility] ([facility]) [address] [place] [address] Neutrophils/100 WBC (Bld) 91.7 % High 38.0-82.0 [facility] Comment on above: Performed By: #### L [id number] #### Barrel Turner: CARMEL HOWARD ([id number]) [facility] ([facility]) [address] [place] [address] NRBC 0.0 /100 WBCs Normal 0.0-2.0 [facility] Comment on above: Performed By: #### L [id number] #### Barrel Turner: CARMEL HOWARD ([id number]) [facility] ([facility]) [address] [place] [address] Platelet mean volume (Bld) [Entitic vol] 9.4 fL Normal 9.0-12.7 [facility] Comment on above: Performed By: #### L [id number] #### Barrel Turner: CARMEL HOWARD ([id number]) [facility] [address] [place] [address] Platelets (Bld) [#/Vol] 270 10*3/uL Normal 140-440 [facility] Comment on above: Performed By: #### L [id number] #### Barrel Turner: CARMEL HOWARD ([id number]) [facility]) [address] [place] [address] RBC (Bld) [#/Vol] 3.52 10*6/uL Low 4.40-5.90 [facility] Comment on above: Performed By: #### L [id number] #### Barrel Turner: CARMEL HOWARD ([id number]) [facility] ([facility]) [address] [place] [address] WBC (Bld) [#/Vol] 11.8 10*3/uL High 3.6-10.7 [facility] Comment on above: Performed By: #### L [id number] #### Barrel Turner: CARMEL HOWARD ([id number]) [facility] [address] [place] [address] COMPREHENSIVE METABOLIC PANE Pollo 08-11-2024 Albumin [Mass/Vol] 2.0 g/dL Low 3.4-4.8 [facility] Comment on above: Performed By: #### L [id number] #### Barrel Turner: CARMEL HOWARD ([id number]) [facility] ([facility]) [address] [place] [address] ALP [Catalytic activity/Vol] 50 U/L Normal 40-150 [facility] Comment on above: Performed By: #### L [id number] #### Barrel Turner: CARMEL HOWARD ([id number]) [facility] ([facility]) [address] [place] [address] ALT [Catalytic activity/Vol] 6 U/L Normal <40 [facility] Comment on above: Performed By: #### L [id number] #### Barrel Turner: CARMEL HOWARD ([id number]) [facility] ([facility]) [address] [place] [address] [place] Anion gap [Moles/Vol] 8 mmol/L Normal 3-13 [facility] Comment on above: Performed By: #### L [id number] #### Barrel Turner: CARMEL HOWARD ([id number]) [facility] ([facility]) [address] [place] [address] AST [Catalytic activity/Vol] 28 U/L Normal <34 [facility] Comment on above: Performed By: #### L [id number] #### Barrel Turner: CARMEL HOWARD ([id number]) [facility] [address] [place] [address] Bilirubin [Mass/Vol] 0.3 mg/dL Normal <1.2 [facility] Comment on above: Performed By: #### L [id number] #### Barrel Turner: CARMEL HOWARD ([id number]) [facility] ([facility]) [address] [place] [address] Calcium [Mass/Vol] 7.8 mg/dL Low 8.8-10.0 [facility] Comment on above: Performed By: #### L [id number] #### Barrel Turner: CARMEL HOWARD ([id number]) [facility] ([facility]) [address] [place] [address] Chloride [Moles/Vol] 109 mmol/L High 98-107 [facility] Comment on above: Performed By: #### L AB17 #### Barrel Turner: CARMEL HOWARD ([id number]) [facility] ([facility]) [address] [place] [address] [place] CO2 [Moles/Vol] 25 mmol/L Normal 23-31 [facility] Comment on above: Performed By: #### L [id number] #### Barrel Turner: CARMEL HOWARD ([id number]) [facility] ([facility]) [address] [place] [address] Creatinine [Mass/Vol] 0.65 mg/dL Low 0.72-1.25 [facility] Comment on above: Performed By: #### L [id number] #### Barrel Turner: CARMEL HOWARD ([id number]) [facility] [address] [place] [address] GLOMERULAR FILTRATION RATE ML/MIN/1.73 SQ M.PREDICTED >90.0 Normal >60.0 [facility] Comment on above: Result Comment: Calc ulation based on the Chronic Kidney Disease Epidemiology Collaboration (CKD-EPI) equation refit without adjustment for race Performed By: #### L [id number] #### Barrel Turner: CARMEL HOWARD ([id number]) [facility] ([facility]) [address] [place] [address] Glucose [Mass/Vol] 150 mg/dL High 82-115 [facility] Comment on above: Performed By: #### L [id number] #### Barrel Turner: CARMEL HOWARD ([id number]) [facility]) [address] [place] [address] Potassium [Moles/Vol] 3.6 mmol/L Normal 3.5-5.1 [facility] Comment on above: Result Comment: [facility] potassium values may be up to 0.5 mmol/L lower than serum values. Performed By: #### L AB17 #### Barrel Turner: CARMEL HOWARD ([id number]) [facility] ([facility]) [address] [place] [address] Protein [Mass/Vol] 4.9 g/dL Low 6.4-8.3 [facility] Comment on above: Performed By: #### L [id number] #### Barrel Turner: CARMEL HOWARD ([id number]) [facility]) [address] [place] [address] [place] Sodium [Moles/Vol] 142 mmol/L Normal 136-145 [facility] Comment on above: Performed By: #### L AB17 #### Barrel Turner: CARMEL HOWARD ([id number]) [facility]) [address] [place] [address] Urea nitrogen [Mass/Vol] 21 mg/dL Normal 9-23 [facility] Comment on above: Performed By: #### L [id number] #### Barrel Turner: CARMEL [id number]) [facility] ([facility]) [address] ABDOMEN PELVIS W CONTRAST on 08-11-2024 CT ABDOMEN PELVIS W CONTRAST Patient Name: LAINE GARCIA : 1955 [facility]#: [id number] Exam Date/Time: 08/11/2024 14:48 Procedure: CT ABDOMEN PELVIS W CONTRAST Ordering Provider: SPANN MARK Reason For Exam: eval for leak CT ABDOMEN AND PELVIS WITH CONTRAST CLINICAL INDICATION: Postop day one for gastric perforation repair. Evaluate for leak. Limited upper GI demonstrated possible extravasation/leak inferior to gastric fundus. TECHNIQUE: Axial CT images through the abdomen and pelvis with 3 mm reconstruction following dynamic intravenous infusion of 75 mL of Isovue-370 intravenous contrast media. Enteric contrast was not administered. Coronal and sagittal reconstructions included. Dose reduction was employed with automated exposure control. COMPARISON: Several prior studies including limited Gastrografin upper GI performed earlier the same day FINDINGS: Limitations: Patient motion and streak artifact. Lung base: Moderate left and small right pleural effusions with left greater than right basilar atelectasis/pneumonia. Liver: Small hypodensity in the liver unchanged. Gallbladder/Biliary tree: Gallbladder again demonstrates hyperdense fluid/material. No intra or extrahepatic biliary ductal dilatation Spleen: Within normal limits. Pancreas: Homogeneous without adjacent stranding or other significant abnormality. Adrenals: No discrete mass or nodule detected. Kidneys/pelvic organs: Both kidneys demonstrate heterogeneous enhancement with perinephric stranding/fluid. No hydronephrosis. Left greater than right parapelvic cysts. No follow-up needed. Urinary bladder is collapsed likely accounting for wall thickening. Prostate gland is mildly enlarged. GI tract: New postsurgical changes along the gastric fundus with adjacent surgical drainage catheter. Stent involving the gastric antrum and proximal duodenum similar in appearance and location. No evidence of small bowel obstruction. Normal appendix. Enteric contrast opacifies the large bowel to the level of the rectum. There is mild gaseous distention involving large bowel. Peritoneal cavity/retroperitoneum : Trace pneumoperitoneum in the upper abdomen presumably postsurgical. No pneumatosis there is trace. Splenic ascites with resolution of previously seen perisplenic collection containing Gastrografin. Trace ascites and mesenteric edema which appear simple in complexity. No new focal fluid collection. No new suspicious bulky adenopathy Vasculature: Normal caliber abdominal aorta. IVC filter in place. Osseous structures/soft tissues: No acute osseous abnormality or aggressive appearing osseous lesion. Diffuse body wall edema with trace subcutaneous emphysema most pronounced along the lateral flank on the left which is likely postsurgical. IMPRESSION: 1. New postsurgical changes along the gastric fundus with resolution of previously seen complex perisplenic collection. No convincing evidence of extraluminal extravasation of enteric contrast. 2. Trace ascites and mesenteric edema. 3. Moderate left and small right pleural effusion with atelectasis and/or pneumonia. 4. Unchanged stent involving the distal stomach and proximal duodenum. Report Dictated on Electronically Signed By: Angel Glynn MD Electronically Signed Date/Time: 08/11/2024 3:28 PM EDT [facility] CT Abdomen and Pelvis W cont rast Jose Luis 08-11-2024 1. New postsurgical changes along the gastric fundus with resolution of previously seen complex perisplenic collection. No convincing evidence of extraluminal extravasation of enteric contrast. 2. Trace ascites and mesenteric edema. 3. Moderate left and small right pleural effusion with atelectasis and/or pneumonia. 4. Unchanged stent involving the distal stomach and proximal duodenum. Report Dictated on Electronically Signed By: Angel Glynn MD Electronically Signed Date/Time: 08/11/2024 3:[address] [facility] Name: [facility] 1955 [id number] Exam Date/Time: 08/11/2024 14:48 Procedure: CT ABDOMEN PELVIS W CONTRAST Ordering Provider: SPANN MARK Reason For Exam: eval for leak CT ABDOMEN AND PELVIS WITH CONTRAST CLINICAL INDICATION: Postop day one for gastric perforation repair. Evaluate for leak. Limited upper GI demonstrated possible extravasation/leak inferior to gastric fundus. TECHNIQUE: Axial CT images through the abdomen and pelvis with 3 mm reconstruction following dynamic intravenous infusion of 75 mL of Isovue-370 intravenous contrast media. Enteric contrast was not administered. Coronal and sagittal reconstructions included. Dose reduction was employed with automated exposure control. COMPARISON: Several prior studies including limited Gastrografin upper GI performed earlier the same day FINDINGS: Limitations: Patient motion and streak artifact. Lung base: Moderate left and small right pleural effusions with left greater than right basilar atelectasis/pneumonia. Liver: Small hypodensity in the liver unchanged. Gallbladder/Biliary tree: Gallbladder again demonstrates hyperdense fluid/material. No intra or extrahepatic biliary ductal dilatation Spleen: Within normal limits. Pancreas: Homogeneous without adjacent stranding or other significant abnormality. Adrenals: No discrete mass or nodule detected. Kidneys/pelvic organs: Both kidneys demonstrate heterogeneous enhancement with perinephric stranding/fluid. No hydronephrosis. Left greater than right parapelvic cysts. No follow-up needed. Urinary bladder is collapsed likely accounting for wall thickening. Prostate gland is mildly enlarged. GI tract: New postsurgical changes along the gastric fundus with adjacent surgical drainage catheter. Stent involving the gastric antrum and proximal duodenum similar in appearance and location. No evidence of small bowel obstruction. Normal appendix. Enteric contrast opacifies the large bowel to the level of the rectum. There is mild gaseous distention involving large bowel. Peritoneal cavity/retroperitoneum : Trace pneumoperitoneum in the upper abdomen presumably postsurgical. No pneumatosis there is trace. Splenic ascites with resolution of previously seen perisplenic collection containing Gastrografin. Trace ascites and mesenteric edema which appear simple in complexity. No new focal fluid collection. No new suspicious bulky adenopathy Vasculature: Normal caliber abdominal aorta. IVC filter in place. Osseous structures/soft tissues: No acute osseous abnormality or aggressive appearing osseous lesion. Diffuse body wall edema with trace subcutaneous emphysema most pronounced along the lateral flank on the left which is likely postsurgical. [facility] Isma Glynn MD - 08/11/2024 Patient Name: LAINE GARCIA : 1955 Exam Date/Time: 08/11/2024 14:48 Procedure: CT ABDOMEN PELVIS W CONTRAST Ordering Provider: SPANN MARK Reason For Exam: eval for leak CT ABDOMEN AND PELVIS WITH CONTRAST CLINICAL INDICATION: Postop day one for gastric perforation repair. Evaluate for leak. Limited upper GI demonstrated possible extravasation/leak inferior to gastric fundus. TECHNIQUE: Axial CT images through the abdomen and pelvis with 3 mm reconstruction following dynamic intravenous infusion of 75 mL of Isovue-370 intravenous contrast media. Enteric contrast was not administered. Coronal and sagittal reconstructions included. Dose reduction was employed with automated exposure control. COMPARISON: Several prior studies including limited Gastrografin upper GI performed earlier the same day FINDINGS: Limitations: Patient motion and streak artifact. Lung base: Moderate left and small right pleural effusions with left greater than right basilar atelectasis/pneumonia. Liver: Small hypodensity in the liver unchanged. Gallbladder/Biliary tree: Gallbladder again demonstrates hyperdense fluid/material. No intra or extrahepatic biliary ductal dilatation Spleen: Within normal limits. Pancreas: Homogeneous without adjacent stranding or other significant abnormality. Adrenals: No discrete mass or nodule detected. Kidneys/pelvic organs: Both kidneys demonstrate heterogeneous enhancement with perinephric stranding/fluid. No hydronephrosis. Left greater than right parapelvic cysts. No follow-up needed. Urinary bladder is collapsed likely accounting for wall thickening. Prostate gland is mildly enlarged. GI tract: New postsurgical changes along the gastric fundus with adjacent surgical drainage catheter. Stent involving the gastric antrum and proximal duodenum similar in appearance and location. No evidence of small bowel obstruction. Normal appendix. Enteric contrast opacifies the large bowel to the level of the rectum. There is mild gaseous distention involving large bowel. Peritoneal cavity/retroperitoneum : Trace pneumoperitoneum in the upper abdomen presumably postsurgical. No pneumatosis there is trace. Splenic ascites with resolution of previously seen perisplenic collection containing Gastrografin. Trace ascites and mesenteric edema which appear simple in complexity. No new focal fluid collection. No new suspicious bulky adenopathy Vasculature: Normal caliber abdominal aorta. IVC filter in place. Osseous structures/soft tissues: No acute osseous abnormality or aggressive appearing osseous lesion. Diffuse body wall edema with trace subcutaneous emphysema most pronounced along the lateral flank on the left which is likely postsurgical. IMPRESSION: 1. New postsurgical changes along the gastric fundus with resolution of previously seen complex perisplenic collection. No convincing evidence of extraluminal extravasation of enteric contrast. 2. Trace ascites and mesenteric edema. 3. Moderate left and small right pleural effusion with atelectasis and/or pneumonia. 4. Unchanged stent involving the distal stomach and proximal duodenum. Report Dictated on Electronically Signed By: Angel Glynn MD Electronically Signed Date/Time: 08/11/2024 3:28 PM EDT [facility] Radiology Study observation (narrative) Nell Hernandes alth CT Abdomen and Pelvis W cont rast IVOrdered By: Isma Glynn on 08-11-2024 [facility] [employer] Work Phone: Comprehensive metabolic 1998 panelon 08-11-2024 Albumin [Mass/Vol] 2 g/dL Low 3.4 - 4.8 g/dL [facility] [employer] ALP [Catalytic activity/Vol] 50 U/L 40 - 150 U/L [facility] ALT [Catalytic activity/Vol] 6 U/L NINF - 40 U/L [facility] Anion gap [Moles/Vol] 8 mmol/L 3 - 13 mmol/L [facility] AST [Catalytic activity/Vol] 28 U[facility] - [facility] U/L [facility] Bilirubin [Mass/Vol] 0.3 mg/dL NINF - 1.2 mg/dL [facility] [employer] Calcium [Mass/Vol] 7.8 mg/dL Low 8.8 - 10. 0 mg/dL [facility] [employer] Chloride [Moles/Vol] 109 mmol/L High 98 - 10 7 mmol/L [facility] CO2 [Moles/Vol] 25 mmol/L 23 - 31 mmol/L [facility] Creatinine [Mass/Vol] 0.65 mg/dL Low 0.72 - 1.25 mg/dL [facility] GFR/1.73 sq M.predicted (S/P/Bld) [Vol rate/Area] - PINF [facility] Comment on above: Calculation based on the Chronic Kidney Disease Epidemiology Collaboration (CKD-EPI) equation refit without adjustment for race Glucose [Mass/Vol] 150 mg/dL High 82 - 115 mg/dL [facility] Interpretation and review of laboratory results Abnormal [facility] Potassium [Moles/Vol] 3.6 mmol/L 3.5 - 5.1 mmol/L [facility] Comment on above: Plasma potassium shruthi ues may be up to 0.5 mmol/L lower than serum values. Protein [Mass/Vol] 4.9 g/dL Low 6.4 - 8.3 g/dL [facility] Sodium [Moles/Vol] 142 mmol/L 136 - 145 mmol/L [facility] Urea nitrogen [Mass/Vol] 21 mg/dL 9 - 23 mg/dL [facility] Progress Noteon 08-11-2024 Progress Note Nutrition rescreen completed. Patient referred to the Dietitian. Patient is NPO > 3 days. TEODORO Hernandez Normal [facility] XR Abdomen and RF Gastrointe stinal tract upper W contrast Jona 08-11-2024 Limited Gastrografin upper GI demonstrates a blush of contrast inferior to gastric fundus which may represent extravasation. The differential includes artifact related to peristalsis. Patent duodenal stent. CTR: Dr. Zara Spann. Report Dictated on Electronically Signed By: Jose D Núñez MD Electronically Signed Date/Time: 08/11/2024 11:[address] [facility] Patient Name: LAINE GARCIA : 1955 Exam Date/Time: 08/11/2024 10:29 Procedure: FL UPPER GI WITH KUB Ordering Provider: SPANN MARK Reason For Exam: s/p repair of gastric perforation on 08/10 GASTROGRAFIN UPPER GI SERIES CLINICAL INDICATIONS: Postop day one gastric perforation repair. Evaluate for leak. FLUOROSCOPY DOSE: Ka,r= 127.8 mGy FINDINGS: There is limitation related to residual contrast media, patient's inability to fully cooperate with positioning, motion artifact. Preliminary film demonstrates contrast from previous upper GI within the large intestine. Duodenal stent, IVC filter and left upper quadrant drain are noted. The exam was performed using Gastrografin orally as requested. The esophagus demonstrates no definite signs of stricture or obstruction. There is limited visualization of the stomach that shows contrast emptying through a patent duodenal stent without obstruction. There is a blush of contrast seen inferior to the gastric fundus. Extravasation of contrast cannot be excluded. [facility] Jose D Núñez MD - 08/11/2024 Patient Name: LAINE GARCIA : 1955 Exam Date/Time: 08/11/2024 10:29 Procedure: FL UPPER GI WITH KUB Ordering Provider: SPANN MARK Reason For Exam: s/p repair of gastric perforation on 08/10 GASTROGRAFIN UPPER GI SERIES CLINICAL INDICATIONS: Postop day one gastric perforation repair. Evaluate for leak. FLUOROSCOPY DOSE: Ka,r= 127.8 mGy FINDINGS: There is limitation related to residual contrast media, patient's inability to fully cooperate with positioning, motion artifact. Preliminary film demonstrates contrast from previous upper GI within the large intestine. Duodenal stent, IVC filter and left upper quadrant drain are noted. The exam was performed using Gastrografin orally as requested. The esophagus demonstrates no definite signs of stricture or obstruction. There is limited visualization of the stomach that shows contrast emptying through a patent duodenal stent without obstruction. There is a blush of contrast seen inferior to the gastric fundus. Extravasation of contrast cannot be excluded. IMPRESSION: Limited Gastrografin upper GI demonstrates a blush of contrast inferior to gastric fundus which may represent extravasation. The differential includes artifact related to peristalsis. Patent duodenal stent. CTR: Dr. Zara Spann. Report Dictated on Electronically Signed By: Jose D Núñez MD Electronically Signed Date/Time: 08/11/2024 11:35 AM EDT [facility] Radiology Study observation (narrative) [facility] BASIC METABOLIC PANELon 05-0 Anion gap [Moles/Vol] 7 mmol/L Normal 3-13 [facility] Comment on above: Performed By: #### L [id number] #### Barrel Turner: CARMEL HOWARD ([id number]) [facility] ([facility]) [address] [place] [address] Calcium [Mass/Vol] 7.7 mg/dL Low 8.8-10.0 [facility] Comment on above: Performed By: #### L [id number] #### Barrel Turner: CARMEL HOWARD ([id number]) [facility] ([facility]) [address] [place] [address] Chloride [Moles/Vol] 108 mmol/L High 98-107 [facility] Comment on above: Performed By: #### L AB17 #### Barrel Turner: CARMEL HOWARD ([id number]) [facility] [address] [place] [address] CO2 [Moles/Vol] 24 mmol/L Normal 23-31 [facility] Comment on above: Performed By: #### L AB17 #### Barrel Turner: CARMEL HOWARD ([id number]) [facility] [address] [place] [address] Creatinine [Mass/Vol] 0.62 mg/dL Low 0.72-1.25 [facility] Comment on above: Performed By: #### L AB17 #### Barrel Turner: CARMEL HOWARD ([id number]) [facility] [address] [place] [address] GLOMERULAR FILTRATION RATE ML/MIN/1.73 SQ M.PREDICTED >90.0 Normal >60.0 [facility] Comment on above: Result Comment: Calc ulation based on the Chronic Kidney Disease Epidemiology Collaboration (CKD-EPI) equation refit without adjustment for race Performed By: #### L AB17 #### Barrel Turner: CARMEL HOWARD ([id number]) [facility] [address] [place] [address] Glucose [Mass/Vol] 146 mg/dL High 82-115 [facility] Comment on above: Performed By: #### L AB17 #### Barrel Turner: CARMEL HOWARD ([id number]) [facility] [address] [place] [address] Potassium [Moles/Vol] 3.5 mmol/L Normal 3.5-5.1 [facility] Comment on above: Result Comment: [facility] potassium values may be up to 0.5 mmol/L lower than serum values. Performed By: #### L AB17 #### Barrel Turner: CARMEL HOWARD ([id number]) [facility] [address] [place] [address] Sodium [Moles/Vol] 139 mmol/L Normal 136-145 [facility] Comment on above: Performed By: #### L AB17 #### Barrel Turner: CARMEL HOWARD ([id number]) [facility] [address] Urea nitrogen [Mass/Vol] 13 mg/dL Normal 9-23 [facility] Comment on above: Performed By: #### L AB17 #### Barrel Turner: CARMEL HOWARD ([id number]) [facility] ([facility]) [address] Basic metabolic 1998 panelon 08-10-2024 Anion gap [Moles/Vol] 7 mmol/L 3 - 13 mmol/L [facility] Calcium [Mass/Vol] 7.7 mg/dL Low 8.8 - 10. 0 mg/dL [facility] Chloride [Moles/Vol] 108 mmol/L High 98 - 10 7 mmol/L [facility] CO2 [Moles/Vol] 24 mmol/L 23 - 31 mmol/L [facility] Creatinine [Mass/Vol] 0.62 mg/dL Low 0.72 - 1.25 mg/dL [facility] GFR/1.73 sq M.predicted (S/P/Bld) [Vol rate/Area] - PINF [facility] Comment on above: Calculation based on the Chronic Kidney Disease Epidemiology Collaboration (CKD-EPI) equation refit without adjustment for race Glucose [Mass/Vol] 146 mg/dL High 82 - 115 mg/dL [facility] Interpretation and review of laboratory results Abnormal [facility] Potassium [Moles/Vol] 3.5 mmol/L 3.5 - 5.1 mmol/L [facility] Comment on above: Plasma potassium shruthi ues may be up to 0.5 mmol/L lower than serum values. Sodium [Moles/Vol] 139 mmol/L 136 - 145 mmol/L [facility] Urea nitrogen [Mass/Vol] 13 mg/dL 9 - 23 mg/dL [facility] CBC W Auto Differential pane l (Bld)Ordered By: Isela Campbell on 08-10-2024 Erythrocyte distribution width (RBC) [Ratio] 14.6 % 11.5 - 15.0 % [facility] Hematocrit (Bld) [Volume fraction] 30.3 % Low 40.0 - 52.0 % [facility] Hemoglobin (Bld) [Mass/Vol] 10.1 g/dL Low 13.0 - 18.0 g/dL [facility] Interpretation and review of laboratory results Abnormal [facility] MCH (RBC) [Entitic mass] 29.3 pg 26.0 - 34.0 pg [facility] MCHC (RBC) [Mass/Vol] 33.3 % 30.5 - 36.0 % [facility] MCV (RBC) [Entitic vol] 87.8 fL 77.0 - 99.0 fL [facility] Platelet mean volume (Bld) [Entitic vol] 9.5 fL 9.0 - 12.7 fL [facility] Platelets (Bld) [#/Vol] 228 10*3/uL 140 - 440 10*3/uL [facility] RBC (Bld) [#/Vol] 3.45 10*6/uL Low 4.40 - 5.9 0 10*6/uL [facility] WBC (Bld) [#/Vol] 11.4 10*3/uL High 3.6 - 10.7 10*3/uL [facility] CBC WITH AUTO DIFFERENTIALon 08-10-2024 Erythrocyte distribution width (RBC) [Ratio] 14.6 % Normal 11.5-15.0 [facility] Comment on above: Performed By: #### L [id number] #### Barrel Turner: CARMEL HOWARD ([id number]) [address] Hematocrit (Bld) [Volume fraction] 30.3 % Low 40.0-52.0 [facility] Comment on above: Performed By: #### L [id number] #### Barrel Turner: CARMEL HOWARD ([id number]) [facility]) [address] [place] [address] Hemoglobin (Bld) [Mass/Vol] 10.1 g/dL Low 13.0-18.0 [facility] Comment on above: Performed By: #### L [id number] #### Barrel Turner: CARMEL [id number]) [facility]) [address] [place] [address] MCH (RBC) [Entitic mass] 29.3 pg Normal 26.0-34.0 [facility] Comment on above: Performed By: #### L [id number] #### Barrel Turner: CARMEL [id number]) [facility] [address] [place] [address] MCHC 33.3 % Normal 30.5-36.0 [facility] Comment on above: Performed By: #### L [id number] #### Barrel Turner: CARMEL HOWARD ([id number]) [facility] [address] [place] [address] MCV (RBC) [Entitic vol] 87.8 fL Normal 77.0-99.0 [facility] Comment on above: Performed By: #### L [id number] #### Barrel Turner: CARMEL HOWARD ([id number]) [facility] ([facility]) [address] [place] [address] Platelet mean volume (Bld) [Entitic vol] 9.5 fL Normal 9.0-12.7 [facility] Comment on above: Performed By: #### L [id number] #### Barrel Turner: CARMEL HOWARD ([id number]) [facility] ([facility]) [address] [place] [address] Platelets (Bld) [#/Vol] 228 10*3/uL Normal 140-440 [facility] Comment on above: Performed By: #### L [id number] #### Barrel Turner: CARMEL HOWARD ([id number]) [facility] ([facility]) [address] [place] [address] RBC (Bld) [#/Vol] 3.45 10*6/uL Low 4.40-5.90 [facility] Comment on above: Performed By: #### L [id number] #### Barrel Turner: CARMEL HOWARD ([id number]) [facility] ([facility]) [address] [place] [address] WBC (Bld) [#/Vol] 11.4 10*3/uL High 3.6-10.7 [facility] Comment on above: Performed By: #### L [id number] #### Barrel Turner: CARMEL HOWARD ([id number]) [facility] ([facility]) [address] [place] [address] CT ABDOMEN PELVIS WO IV CONT RASTon 08-10-2024 CT ABDOMEN PELVIS WO IV CONTRAST Patient Name: LAINE GARCIA : 1955 Exam Date/Time: 08/10/2024 11:17 Procedure: CT ABDOMEN PELVIS WO IV CONTRAST Ordering Provider: SPANN MARK Reason For Exam: eval for leak EXAMINATION: CT ABDOMEN PELVIS WO IV CONTRAST CLINICAL HISTORY: eval for leak COMPARISON: 08/09/2024 TECHNIQUE: CT of the abdomen and pelvis without contrast. Dose reduction was employed with automated exposure control. FINDINGS: There is a left perisplenic collection of Gastrografin and free gas in the left upper quadrant measuring up to 3 cm in thickness which arises through a defect in the posterior wall of the gastric fundus (series 3, images 43-46). There is also a small amount of pneumoperitoneum anteriorly in the right upper quadrant. No free contrast is identified elsewhere. The stent in the gastric antrum and proximal duodenum appears patent. There is Gastrografin contrast throughout the colon and most of the small bowel loops which are normal in caliber. Moderate left and small right pleural effusions are stable in size with no contrast in either collection. There is bibasilar atelectasis. The urinary bladder is opacified by excreted contrast with no hydronephrosis. There are multiple parapelvic renal cysts bilaterally. Generalized body wall edema is present. No destructive bone lesions. IMPRESSION: Enteric contrast extravasation in the left upper quadrant through a defect in the posterior wall of the gastric fundus. Report Dictated on Electronically Signed By: Damien Aguiar MD Electronically Signed Date/Time: 08/10/2024 12:34 PM EDT [facility] CT Abdomen and Pelvis WO con traston 08-10-2024 Enteric contrast extravasation in the left upper quadrant through a defect in the posterior wall of the gastric fundus. Report Dictated on Electronically Signed By: Damien Aguiar MD Electronically Signed Date/Time: 08/10/2024 12:[address] [facility] Patient Name: LAINE GARCIA : 1955 Exam Date/Time: 08/10/2024 11:17 Procedure: CT ABDOMEN PELVIS WO IV CONTRAST Ordering Provider: SPANN MARK Reason For Exam: eval for leak EXAMINATION: CT ABDOMEN PELVIS WO IV CONTRAST CLINICAL HISTORY: eval for leak COMPARISON: 08/09/2024 TECHNIQUE: CT of the abdomen and pelvis without contrast. Dose reduction was employed with automated exposure control. FINDINGS: There is a left perisplenic collection of Gastrografin and free gas in the left upper quadrant measuring up to 3 cm in thickness which arises through a defect in the posterior wall of the gastric fundus (series 3, images 43-46). There is also a small amount of pneumoperitoneum anteriorly in the right upper quadrant. No free contrast is identified elsewhere. The stent in the gastric antrum and proximal duodenum appears patent. There is Gastrografin contrast throughout the colon and most of the small bowel loops which are normal in caliber. Moderate left and small right pleural effusions are stable in size with no contrast in either collection. There is bibasilar atelectasis. The urinary bladder is opacified by excreted contrast with no hydronephrosis. There are multiple parapelvic renal cysts bilaterally. Generalized body wall edema is present. No destructive bone lesions. [facility] Damien Aguiar M D - 08/10/2024 Patient Name: [facility]ARC[facility] 1955 [id number] Exam Date/Time: 08/10/2024 11:17 Procedure: CT ABDOMEN PELVIS WO IV CONTRAST Ordering Provider: SPANN MARK Reason For Exam: eval for leak EXAMINATION: CT ABDOMEN PELVIS WO IV CONTRAST CLINICAL HISTORY: eval for leak COMPARISON: 08/09/2024 TECHNIQUE: CT of the abdomen and pelvis without contrast. Dose reduction was employed with automated exposure control. FINDINGS: There is a left perisplenic collection of Gastrografin and free gas in the left upper quadrant measuring up to 3 cm in thickness which arises through a defect in the posterior wall of the gastric fundus (series 3, images 43-46). There is also a small amount of pneumoperitoneum anteriorly in the right upper quadrant. No free contrast is identified elsewhere. The stent in the gastric antrum and proximal duodenum appears patent. There is Gastrografin contrast throughout the colon and most of the small bowel loops which are normal in caliber. Moderate left and small right pleural effusions are stable in size with no contrast in either collection. There is bibasilar atelectasis. The urinary bladder is opacified by excreted contrast with no hydronephrosis. There are multiple parapelvic renal cysts bilaterally. Generalized body wall edema is present. No destructive bone lesions. IMPRESSION: Enteric contrast extravasation in the left upper quadrant through a defect in the posterior wall of the gastric fundus. Report Dictated on Electronically Signed By: Damien Aguiar MD Electronically Signed Date/Time: 08/10/2024 12:34 PM EDT [facility] Radiology Study observation (narrative) [facility] CT Abdomen and Pelvis WO con trastOrdered By: Damien Aguiar on 08-10-2024 [facility] Work Phone: ECG 12-LEADon 08-10-2024 ECG 12-LEAD IMPRESSION: Sinus rhythm Minimal ST depression, lateral leads Electronically Signed On 08-10-2024 00:13:40 EDT by Etienne Hardin Normal [facility] Laboratory - Chemistry and C hemistry - challengeon 08-10-2024 Magnesium [Mass/Vol] 1.8 mg/dL 1.6 - 2 .6 mg/dL [facility] Laboratory - Hematology and Cell countson 08-10-2024 Band form neutrophils (Bld) [#/Vol] 0.6 10*3/uL High NINF - 0.0 10*3/uL [facility] Band form neutrophils/100 WBC (Bld) 5 % High NINF - 0 % [facility] Basophils (Bld) [#/Vol] 0.1 10*3/uL 0.0 - 0.2 10*3/uL [facility] Basophils/100 WBC (Bld) 1 % 0 - 2 % S [facility] Lilly cells LM Ql (Bld) Slight Abnormal (none) [facility] Lymphocytes (Bld) [#/Vol] 0.1 10*3/uL Low 1.0 - 4.3 10*3/uL [facility] Lymphocytes/100 WBC (Bld) 1 % Low 15 - 45 % [facility] Monocytes (Bld) [#/Vol] 0.5 10*3/uL 0.0 - 0.9 10*3/uL [facility] Monocytes/100 WBC (Bld) 4 % Low 5 - 13 % [facility] Myelocytes (Bld) [#/Vol] 0.1 10*3/uL High NINF - 0.0 10*3/uL [facility] Myelocytes/100 WBC (Bld) 1 % High NINF - 0 % [facility] Neutrophils (Bld) [#/Vol] 10.6 10*3/uL High 1.8 - 7.5 10*3/uL [facility] Ovalocytes LM Ql (Bld) Slight Abnormal (none) [facility] Poikilocytosis LM Ql (Bld) Slight Abnormal (none) [facility] RBC morphology finding Nom (Bld) abnormal [facility] Segmented neutrophils/100 WBC (Bld) 88 % High 38 - 82 % [facility] MAGNESIUMon 08-10-2024 Magnesium [Mass/Vol] 1.8 mg/dL Normal 1.6-2.6 [facility] Comment on above: Result Comment: MARTINEZ Veliz COMMENTS: Higher values can be expected in females during menses. Performed By: #### L [id number] #### Barrel Turner: CARMEL HOWARD ([phone]) [facility]) [address] [place] [address] MANUAL DIFFERENTIAL (CELLAVI GRACIELA)on 08-10-2024 BAND NEUTROPHILS TOTAL PER COUNTED LEUKOCYTES BY MANUAL COUNT 5 Normal [facility] Comment on above: Performed By: #### L [id number] #### Barrel Turner: CARMEL HOWARD ([phone]) [facility] ([facility]) [address] [place] [address] [place] BANDS (10*3/UL) IN BLOOD-CELLAVISION 0.6 10*3/uL High <=0.0 [facility] Comment on above: Performed By: #### L [id number] #### Barrel Turner: CARMEL HOWARD ([id number]) [facility] ([facility]) [address] [place] [address] [place] BASOPHILS (10*3/UL) IN BLOOD-CELLAVISION 0.1 10*3/uL Normal 0.0-0.2 [facility] Comment on above: Performed By: #### L [id number] #### Barrel Turner: CARMEL HOWARD ([phone]) [facility] ([facility]) [address] [place] [address] [place] BASOPHILS TOTAL PER COUNTED LEUKOCYTES BY MANUAL COUNT 1 Normal [facility] Comment on above: Performed By: #### L [id number] #### Barrel Turner: CARMEL HOWARD ([id number]) [facility] [address] [place] [address] [place] BASOPHILS/100 LEUKOCYTES IN BLOOD-CELLAVISION 1 % Normal 0-2 [facility] Comment on above: Performed By: #### L [id number] #### Barrel Turner: CARMEL HOWARD ([phone]) [facility] ([facility]) [address] [place] [address] [place] BLASTS TOTAL PER COUNTED LEUKOCYTES BY MANUAL COUNT Normal [facility] Comment on above: Performed By: #### L [id number] #### Barrel Turner: CARMEL HOWARD ([id number]) [facility] [address] [place] [address] [place] LILLY CELLS PRESENCE IN BLOOD BY LIGHT MICROSCOPY Slight Abnormal (none) [facility] Comment on above: Performed By: #### L [id number] #### Barrel Turner: CARMEL HOWARD ([phone]) [facility] ([facility]) [address] [place] [address] [place] EOSINOPHILS TOTAL PER COUNTED LEUKOCYTES BY MANUAL COUNT Normal [facility] Comment on above: Performed By: #### L [id number] #### Barrel Turner: CARMEL HOWARD ([id number]) [facility] [address] [place] [address] [place] LYMPHOCYTES (10*3/UL) IN BLOOD-CELLAVISION 0.1 10*3/uL Low 1.0-4.3 [facility] Comment on above: Performed By: #### L [id number] #### Barrel Turner: CARMEL HOWARD ([phone]) [facility] [address] [place] [address] [place] LYMPHOCYTES TOTAL PER COUNTED LEUKOCYTES BY MANUAL COUNT 1 Normal [facility] Comment on above: Performed By: #### L [id number] #### Barrel Turner: CARMEL HOWARD ([phone]) [facility]) [address] [place] [address] [place] LYMPHOCYTES/100 LEUKOCYTES IN BLOOD-CELLAVISION 1 % Low 15-45 [facility] Comment on above: Performed By: #### L [id number] #### Barrel Turner: CARMEL HOWARD ([id number]) [facility] ([facility]) [address] [place] [address] [place] METAMYELOCYTES TOTAL PER COUNTED LEUKOCYTES BY MANUAL COUNT Normal [facility] Comment on above: Performed By: #### L [id number] #### Barrel Turner: CARMEL HOWARD ([phone]) [facility]) [address] [place] [address] [place] MONOCYTES (10*3/UL) IN BLOOD-CELLAVISION 0.5 10*3/uL Normal 0.0-0.9 [facility] Comment on above: Performed By: #### L [id number] #### Barrel Turner: CARMEL HOWARD ([phone]) [facility] ([facility]) [address] [place] [address] [place] MONOCYTES TOTAL PER COUNTED LEUKOCYTES BY MANUAL COUNT 4 Normal [facility] Comment on above: Performed By: #### L [id number] #### Barrel Turner: CARMEL HOWARD ([phone]) [facility] ([facility]) [address] [place] [address] [place] MONOCYTES/100 LEUKOCYTES IN BLOOD-ARIAS 4 % Low 5-13 [facility] Comment on above: Performed By: #### L [id number] #### Barrel Turner: CARMEL HOWARD ([phone]) [facility] ([facility]) [address] [place] [address] [place] MYELOCYTES (10*3/UL) IN BLOOD-CELLAVISION 0.1 10*3/uL High <=0.0 [facility] Comment on above: Performed By: #### L [id number] #### Barrel Turner: CARMEL HOWARD ([phone]) [facility] ([facility]) [address] [place] [address] [place] MYELOCYTES COUNTED BY MANUAL COUNT 1 Normal [facility] Comment on above: Performed By: #### L [id number] #### Barrel Turner: CARMEL HOWARD ([phone]) [facility]) [address] [place] [address] [place] MYELOCYTES/100 LEUKOCYTES IN BLOOD-CELLAVISION 1 % High <=0 [facility] Comment on above: Performed By: #### L [id number] #### Barrel Turner: CARMEL HOWARD ([phone]) [facility] [address] [place] [address] [place] NEUTROPHILS BAND FORM/100 LEUKOCYTES IN BLOOD-CELLAVISI 5 % High <=0 [facility] Comment on above: Performed By: #### L [id number] #### Barrel Turner: CARMEL HOWARD ([id number]) [facility] ([facility]) [address] [place] [address] [place] NEUTROPHILS TOTAL PER COUNTED LEUKOCYTES BY MANUAL COUNT 90 Normal [facility] Comment on above: Performed By: #### L [id number] #### Barrel Turner: CARMEL HOWARD ([phone]) [facility] ([facility]) [address] [place] [address] [place] OVALOCYTES PRESENCE IN BLOOD BY LIGHT MICROSCOPY Slight Abnormal (none) [facility] Comment on above: Performed By: #### L [id number] #### Barrel Turner: CARMEL HOWARD ([phone]) [facility] [address] [place] [address] [place] POIKILOCYTOSIS (PRESENCE) IN BLOOD BY LIGHT MICROSCOPY Slight Abnormal (none) [facility] Comment on above: Performed By: #### L [id number] #### Barrel Turner: CARMEL HOWARD ([id number]) [facility] ([facility]) [address] [place] [address] [place] PROMYELOCYTES TOTAL PER COUNTED LEUKOCYTES BY MANUAL COUNT Normal [facility] Comment on above: Performed By: #### L [id number] #### Barrel Turner: CARMEL HOWARD ([id number]) [facility] ([facility]) [address] [place] [address] RBC MORPHOLOGY IN BLOOD abnormal Normal S [facility] Comment on above: Performed By: #### L [id number] #### Barrel Turner: CARMEL HOWARD ([phone]) [facility] ([facility]) [address] [place] [address] SEGMENTED NEUTROPHILS (10*3/UL) IN BLOOD-CELLAVISION 10.6 10*3/uL High 1.8-7.5 [facility] Comment on above: Performed By: #### L [id number] #### Barrel Turner: CARMEL HOWARD ([id number]) [facility] ([facility]) [address] [place] [address] SEGMENTED NEUTROPHILS/100 LEUKOCYTES-CE 88 % High 38-82 [facility] Comment on above: Performed By: #### L [id number] #### Barrel Turner: CARMEL HOWARD ([id number]) [facility] ([facility]) [address] [place] [address] UNCLASSIFIED CELLS TOTAL PER COUNTED LEUKOCYTES BY MANUAL COUNT Normal [facility] Comment on above: Performed By: #### L [id number] #### Barrel Turner: CARMEL HOWARD ([phone]) [facility]) [address] [place] [address] VARIANT LYMPHOCYTES TOTAL PER COUNTED LEUKOCYTES BY MANUAL COUNT [facility] Comment on above: Performed By: #### L [id number] #### Barrel Turner: CARMEL HOWARD ([phone]) [facility] ([facility]) [address] [place] [address] Magnesium [Mass/Vol]on 08-10 Interpretation and review of laboratory results Normal [facility] Higher values can be expected in females during menses. [facility] No Panel Informationon 08-10 Atypical Lymphocytes Manual [facility] Bands Manual 5 [facility] Basophils Manual 1 [facility] Blasts Manual [facility] Eosinophils Manual [facility] Interpretation and review of laboratory results Abnormal [facility] Lymphocytes Manual 1 [facility] Metamyelocytes Manual [facility] Monocytes Manual 4 [facility] Myelocytes Manual 1 [facility] Neutrophils Manual 90 [facility] Promyelocytes Manual [facility] Unclassified Cells, Manual [facility] Sinus rhythm Minimal ST depression, lateral leads Electronically Signed On 08-10-2024 00:13:40 EDT by Etienne Hardin CV Etienne Paul MD - 08/10/2024 IMPRESSION: Sinus rhythm Minimal ST depression, lateral leads Electronically Signed On 08-10-2024 00:13:40 EDT by Etienne Hardin [facility] No Panel InformationOrdered By: Etienne Hardin on 08-10-2024 P Lawrence 50 degrees [facility] Work Phone: MS Interval 142 ms [facility] Work Phone: QRS Lawrence -9 degrees [facility] Work Phone: QRSD Interval 104 ms [facility] Work Phone: QT Interval 374 ms [facility] Work Phone: QTC Interval 437 ms [facility] Work Phone: T Wave Lawrence 34 degrees [facility] Work Phone: [facility] Work Phone: Nursing Noteon 08-10-2024 Nursing Note Report called to H5. Normal [facility] Op Noteon 08-10-2024 Op Note Patient: Laine veliz Date of : 1955 Service Date: 08/09/24 PROCEDURE: Diagnostic laparoscopy with laparoscopic enterolysis EGD PREOPERATIVE DIAGNOSES: Patient Active Problem List Diagnosis Duodenal perforation (CMS/HCC) (HCC) Duodenal ulceration Pneumoperitoneum Possible gastric perforation POSTOPERATIVE DIAGNOSES: Same ANESTHESIA: General SURGEON: DR. Zara Spann HAT AND CAP OPENER: Dr. Vance FLUIDS: 1000 cc crystalloid ESTIMATED BLOOD LOSS: 10 cc URINE OUTPUT: Not recorded. PREOPERATIVE MEDICATIONS: 3 Ancef INDICATIONS FOR PROCEDURE: The patient is a 69 y.o. male presents to [facility] from outside facility with a possible gastric perforation. CT scan was performed which revealed collection left quadrant with pleural effusion. Possible free air. The patient was brought to the op suite and placed in split leg position. His arms were out at his sides being careful to protect bony prominences. Began outpatient by making a left upper quadrant 5 mm incision after appropriate prep and drape and timeout. The abdominal cavity was entered without difficulty. Opening pressure was 3 mm pneumoperitoneum. The abdominal Was insufflated to 15 mm pneumoperitoneum. There is no abnormalities noted within the abdominal cavity. There was no fluid, no pus, no bilious fluid no other abnormalities. We then placed a mid abdominal 5 left upper quadrant 5 and a right sided 5 mm trocar. Very careful examination of the abdominal cavity was completed. The duodenum was normal. The area of the stent was clearly visualized however therewas no abnormality around the duodenum. No evidence of perforation noted. At this point we then began to evaluate the left upper quadrant. There was substantial scar in this area with the. Patient's previous Elisa fundoplication. We mobilized the greater curve of the stomach to gain access to the lesser sac. There was no fluid or other abnormality in this area. We then mobilized the colon along the splenic flexure. There was no evidence of fluid or pus or abnormality in this area. There was no bilious fluid or other exudative process in the left upper quadrant. At this point not finding an obvious perforation we then insufflated the stomach using an endoscope. We took a careful survey while dunking the entire stomach under water. Once again no other abnormalities were noted. Being satisfied that there was no obvious perforation we did not take down the entire fundoplication or further evaluate up by the spleen as there was substantial scar tissue. At this point we then abandon the procedure with plans for postoperative upper GI and further evaluation. We desufflated the abdominal cavity. We closed incisions using 4 Monocryl. Patient extubated taken recovery in stable condition. [facility] Op Note Patient: Laine veliz Date of : 1955 Service Date: 08/10/2024 PROCEDURE: Laparoscopic wedge resection of stomach Laparoscopic enterolysis EGD 19 Chinese drain placement. PREOPERATIVE DIAGNOSES: Patient Active Problem List Diagnosis Duodenal perforation (CMS/HCC) (HCC) Duodenal ulceration Pneumoperitoneum Gastric perforation POSTOPERATIVE DIAGNOSES: Same ANESTHESIA: General SURGEON: DR. Zara Spann HAT AND CAP OPENER: Dr. Sandy Gallardo FLUIDS: 1000 cc crystalloid ESTIMATED BLOOD LOSS: 10 cc URINE OUTPUT: Not recorded. PREOPERATIVE MEDICATIONS: 2 g Ancef INDICATIONS FOR PROCEDURE: The patient is a 69 y.o. male with complex medical history with recent bleeding duodenal ulcer with clipping cautery and stenting. The patient was transferred here from an outside facility for possible gastric perforation. The patient was taken for diagnostic laparoscopy last evening however no abnormalities were noted. The patient was reevaluated today with upper GI and repeat CT scan and was noted to have a continued gastric perforation. He was subsequently brought to the operative suite for further evaluation. He was placed in split leg position. General endotracheal anesthesia was induced. His bony prominences were protected. We prepped and draped the abdomen. We used the remaining incisions from yesterday evening. Optical trocar was inserted without difficulty in the left upper quadrant. The abdominal cavity was insufflated to 15 mm of pneumoperitoneum. The remainder of the 4 ports were then placed along with a subxiphoid [place] liver retractor. Again there was no intra-abdominal contamination. No pus no bilious fluid no exudative material in the abdomen. We very carefully began to dissected the hiatal hernia and the previous Elisa. We mobilized along the greater curvature the stomach using Enseal device. We identified the greater curve of the stomachsutured to the lesser curve of the stomach. These Ethibond sutures were transected. We continued lateral dissection on the right as well as the left to fully mobilize the fundus. This was difficult dissection along the diaphragmatic edge on the patient's left side due to significant scar tissue. We were however able to elevate the fundus and once we did this a pocket of fluid and contrast was noted adjacent to the spleen. This was a exudative walled off area. This was copiously irrigated and drained. Once the fundus was elevated into the field a perforation was noted within the fundus. This was a lateral and cephalad and was easily transected with a Endo ANDREW blue load stapler to close the gastrotomy. The specimen was then passed off the field. At this point we then insufflated the stomach. We very carefully evaluated all the superior surfaces of the posterior surfaces. The entire stomach was then dunked underwater to ensure there was no further perforations and they were not. There was complete hemostasis. At this point we then placed a 19 Chinese drain along the cephalad aspect of the spleen and the previous abscess cavity. This was brought up to the left upper quadrant trocar site. This trocar site was then closed using 2-0 silk suture. The abdominal cavity was then desufflated. 4-0 Monocryl was then placed to close the incisions. The patient was then extubated taken recovery in stable condition. Normal [facility] Progress Noteon 08-10-2024 Progress Note Correction. Probable extravasation of contrast. Normal [facility] Vital signsOrdered By: Deepak Hardin on 08-10-2024 Heart rate 82 /min bpm [facility]: XR Abdomen and RF Gastrointe stinal tract upper W contrast Jona 08-10-2024 Evidence of extravasation of contrast in the left abdomen collecting beneath the left hemidiaphragm, with reasonable correlation to cross-sectional imaging findings. Patent duodenal stent. CTR: Dr. Zara Spann Report Dictated on Electronically Signed By: Jose D Núñez MD Electronically Signed Date/Time: 08/10/2024 11:42 AM EDT [employer] Patient Name: LAINE GARCIA : 1955 Exam Date/Time: 08/10/2024 07:54 Procedure: FL UPPER GI WITH KUB Ordering Provider: SPANN MARK Reason For Exam: eval for leak, s/p EGD wiht concern for perfoation GASTROGRAFIN UPPER GI SERIES CLINICAL INDICATIONS: Status post EGD with concern for perforation. Evaluate for leak. FLUOROSCOPY DOSE: Ka,r= 464.3 mGy FINDINGS: Preliminary film demonstrates a nonspecific bowel gas pattern. Duodenal stenting and a IVC filter are noted. The exam was performed using Gastrografin orally as requested. The esophagus shows no convincing evidence of stricture or mucosal abnormality. There is limited visualization of the stomach that shows contrast emptying into the duodenum without obstruction. The duodenal stent appears patent. There is evidence of extravasation of contrast posterior to gastric fundus radiating to left abdomen and collecting adjacent to spleen, and beneath the left hemidiaphragm. There is reasonable correlation to findings on recent CT 08/09/2024. [facility] Jose D Núñez MD - 08/10/2024 Patient Name: LAINE GARCIA : 1955 Exam Date/Time: 08/10/2024 07:54 Procedure: FL UPPER GI WITH KUB Ordering Provider: SPANN MARK Reason For Exam: eval for leak, s/p EGD wiht concern for perfoation GASTROGRAFIN UPPER GI SERIES CLINICAL INDICATIONS: Status post EGD with concern for perforation. Evaluate for leak. FLUOROSCOPY DOSE: Ka,r= 464.3 mGy FINDINGS: Preliminary film demonstrates a nonspecific bowel gas pattern. Duodenal stenting and a IVC filter are noted. The exam was performed using Gastrografin orally as requested. The esophagus shows no convincing evidence of stricture or mucosal abnormality. There is limited visualization of the stomach that shows contrast emptying into the duodenum without obstruction. The duodenal stent appears patent. There is evidence of extravasation of contrast posterior to gastric fundus radiating to left abdomen and collecting adjacent to spleen, and beneath the left hemidiaphragm. There is reasonable correlation to findings on recent CT 08/09/2024. IMPRESSION: Evidence of extravasation of contrast in the left abdomen collecting beneath the left hemidiaphragm, with reasonable correlation to cross-sectional imaging findings. Patent duodenal stent. CTR: Dr. Zara Spann Report Dictated on Electronically Signed By: Jose D Núñez MD Electronically Signed Date/Time: 08/10/2024 11:42 AM EDT [facility] Radiology Study observation (narrative) [facility] alth XR Abdomen and RF Gastrointe stinal tract upper W contrast POOrdered By: Jose D Núñez on 08-10-2024 [facility] Work Phone: ABO and Rh group Confirm Nom (Bld)on 08-09-2024 ABO group Nom (Bld) O [facility] D Ag Ql (RBC) Positive [facility] APTTon 08-09-2024 aPTT Coag (Bld) [Time] 30.9 s High 20.0-30.5 [facility] Comment on above: Result Comment: MARTINEZ R COMMENTS: NOTE: The therapeutic time for Heparin anticoagulation, based on Xa activity inhibition, is an APTT of 46-80 seconds. Performed By: #### L [id number] #### Barrel Turner: CARMEL HOWARD ([id number]) [facility] ([facility]) [address] [place] [address] Abdomen/Pelvis without Conto n 08-09-2024 Abdomen/Pelvis without Cont [facility] Imaging Services [address] [place], [place] [address] Abdomen/Pelvis without Cont MR#: [id number] Acct: [id number] Name: LAINE GARCIA Rep #: [id number] : 1955 M 69 From: Zara Rodrigues MD PCP: Dr. Dante Gurrola MD Status: ADM IN Study: Abdomen/Pelvis without Cont Date of Exam: 10/27 Exam# [id number] Ordering Dr: Brandie Spears DO PROCEDURE: ABDOMEN/PELVIS WITHOUT CONT, 08/09/2024 REASON FOR EXAM: FREE AIR TECHNIQUE: CT abdomen and pelvis was performed without IV contrast. Multiplanar reformats were generated. IV contrast: None. RADIATION DOSE SUMMARY: CTDlvol: 9.68 mGy DLP: 539.51 mGycm One or more dose reduction techniques were used (e.g., Automated exposure control, adjustment of the mA and/or kV according to patient size, use of iterative reconstruction technique). COMPARISON: CTA chest of same date and prior FINDINGS: Note that evaluation of the abdominopelvic viscera, vasculature, and remaining soft tissues is limited in the absence of IV contrast. Note that the ischial tuberosities are minimally excluded from the field of view inferiorly. Lung bases: Better evaluated on recent CTA chest.. Liver: Similar LEFT lobe cyst.. Spleen: Unremarkable. Gallbladder: High-density material within the gallbladder lumen, probably vicarious contrast excretion given this is new from 08/05/2024. Pancreas: Unremarkable. Adrenals: Unremarkable. Kidneys: Excreted contrast in the renal collecting systems. Bilateral renal sinus cysts. Cortical cyst on the RIGHT. Symmetric nonspecific perinephric stranding Bowel: Removal of the enteric tube. Redemonstrated stent extending from the pylorus into the proximal duodenum. Tiny amount of presumed PO contrast in the stomach. Gaseous distention of the colon without marylou dilatation. Nondilated small bowel.. Normal caliber appendix. Lymph nodes: Unremarkable. Vasculature: Mild atherosclerosis. Peritoneum: Mrmsv-pi-qkdnfzbq volume ill-defined free fluid and air in the perisplenic/subdiaphra gmatic region. No loculated collection evident in the absence of IV contrast. Tiny focus of high-density along the medial spleen is new from prior and could conceivably reflect extravasated PO contrast given suspected small amount of high-density presumed PO contrast within the stomach. Similar nonspecific presacral stranding. Bladder: Underdistended and suboptimally evaluated. Opacified by excreted contrast. Bladder wall thickening appears disproportionate to degree of underdistention.. Reproductive Organs: Prostatomegaly. Body Wall: Body wall edema has increased.. Bones: Mild thoracic levoscoliosis. Multilevel spondylosis.. CT/Abdomen/Pelvis without Cont IMPRESSION: 1. Redemonstrated small to moderate volume ill-defined free fluid and air in the perisplenic/subdiaphra gmatic region, suggesting perforated viscus, presumably related to previously suspected duodenal ulcer although this is not definite and proximity of these findings to the stomach is noted. A tiny focus of high density along the medial spleen is new from prior and is suspicious for minimal extravasated PO contrast given a small amount of high-density presumed PO contrast within the stomach. 2. Findings suggestive of cystitis and/or chronic bladder outlet obstruction given prostatomegaly. Correlate with urinalysis. 3. Refer to recent CTA chest report for intrathoracic findings. 4. Additional description as above. Reading Location: [facility] CC: Dr. Dante Gurrola MD; Dr. Brandie Spears DO Acidizer Water Well: Signed Normal [facility] Absolute lymphocyte countOrd ered By: Brandie Spears on 08-09-2024 Lymphocytes Auto (Unsp spec) [#/Vol] 0.67 10*3/uL Low 0.83-4.51 [facility] Absolute neutrophil countOrd ered By: Brandie Spears on 08-09-2024 Neutrophils (Bld) [#/Vol] 10.6 10*3/uL High 2.0-7.7 [facility] Anion gap in Serum or Plasma Ordered By: Brandie Spears on 08-09-2024 Anion gap [Moles/Vol] 9 mmol/L 5-15 [facility] Automated lymphocyte count a s percentage of total leukocytesOrdered By: Brandie Spears on 08-09-2024 Lymphocytes/100 WBC Auto (Unsp spec) 5.5 % Low 19-41 [facility] BLOOD TYPE AND SCREEN GELon 08-09-2024 ABO GROUPING O Normal [facility] Comment on above: Performed By: #### L [id number] #### Barrel Turner: CARMEL HOWARD ([id number]) [facility] ([facility]) [address] [place] [address] RH TYPE IN BLOOD Positive Normal [facility] Comment on above: Performed By: #### L AB233 #### Barrel Turner: CARMEL HOWARD ([id number]) [facility] ([facility]) [address] [place] [address] BUN/creatinine ratioOrdered By: Brandie Spears on 08-09-2024 Urea nitrogen/Creatinine [Mass ratio] 31.8 mg/mg High 10-20 [facility] Basic Metabolic Profile (BMP )on 08-09-2024 BUN/CRE 31.8 RATIO High [facility]20 [facility] Comment on above: Performed By: #### L 500.2500, L100.0100 #### [facility] Laboratory [address] [place], [address] Calcium [Mass/Vol] 7.7 mg/dL Normal 7.6-11.0 [facility] Comment on above: Performed By: #### L 500.2500, L100.0100 #### [facility] [address] [place], [address] Chloride [Moles/Vol] 106 mmol/L Normal 98-108 [facility] Comment on above: Performed By: #### L 500.2500, L100.0100 #### [facility] [address] [place], [address] CO2 [Moles/Vol] 24.4 mmol/L Normal 21.0-32.0 [facility] Comment on above: Performed By: #### L 500.2500, L100.0100 #### [facility] [address] [place], [address] Creatinine [Mass/Vol] 0.51 mg/dL Low 0.70-1.20 [facility] Comment on above: Performed By: #### L 500.2500, L100.0100 #### [facility] [address] [place], [address] ECRCL 88.72 ml/min Normal 50-250 [facility] Comment on above: Performed By: #### L 500.2500, L100.0100 #### [facility] [address] [place], [address] GAP 9 Normal 5-15 [facility] Comment on above: Performed By: #### L 500.2500, L100.0100 #### [facility] [address] [place], [address] GFR/1.73 sq M.predicted among non-blacks MDRD (S/P/Bld) [Vol rate/Area] 109 mL/min/{1.73_m2} Normal >60 [facility] Comment on above: Result Comment: mL/m in/1.73m2 CKD-EPI Creatinine Equation (2020) Performed By: #### L 500.2500, L100.0100 #### [facility] [address] [place], [address] Glucose [Mass/Vol] 116 mg/dL High 70-99 [facility] Comment on above: Performed By: #### L 500.2500, L100.0100 #### [facility] [address] [place], [address] Potassium [Moles/Vol] 3.2 mmol/L Low 3.3-5.1 [facility] Comment on above: Performed By: #### L 500.2500, L100.0100 #### [facility] [address] [place], [address] Sodium [Moles/Vol] 139 mmol/L Normal 133-145 [facility] Comment on above: Performed By: #### L 500.2500, L100.0100 #### [facility] [address] [place], [address] Urea nitrogen [Mass/Vol] 16 mg/dL Normal 4-19 [facility] Comment on above: Performed By: #### L 500.2500, L100.0100 #### [facility] [address] [place], [address] Basophil percentageOrdered B y: Brandie Spears on 08-09-2024 Basophils/100 WBC (Bld) 0.2 % 0-[address] [facility] Blood type and Crossmatch maddie jacobs (Bld)on 08-09-2024 ABO group Nom (Bld) O [facility] Blood group antibody screen GEL Ql Negative [facility] D Ag Ql (RBC) Positive [facility] CBC W Auto Differential pane l (Bld)Ordered By: Ivy Fields on 08-09-2024 Basophils (Bld) [#/Vol] 0 10*3/uL 0.0 - 0.2 10*3/uL [facility] Basophils/100 WBC (Bld) 0.2 % 0.0 - 2.0 % [facility] Eosinophils (Bld) [#/Vol] 0.1 10*3/uL 0.0 - 0.5 10*3/uL [facility] Eosinophils/100 WBC (Bld) 0.6 % 0.0 - 6.0 % [facility] Erythrocyte distribution width (RBC) [Ratio] 14.7 % 11.5 - 15.0 % [facility] Hematocrit (Bld) [Volume fraction] 29.6 % Low 40.0 - 52.0 % [facility] Hemoglobin (Bld) [Mass/Vol] 10.2 g/dL Low 13.0 - 18.0 g/dL [facility] Immature granulocytes (Bld) [#/Vol] 0.1 10*3/uL High NINF - 0.1 10*3/uL [facility] Immature granulocytes/100 WBC (Bld) 0.5 % 0.0 - 2.0 % [facility] Interpretation and review of laboratory results Abnormal [facility] Lymphocytes (Bld) [#/Vol] 0.5 10*3/uL Low 1.0 - 4.3 10*3/uL [facility] Lymphocytes/100 WBC (Bld) 5.5 % Low 15.0 - 45.0 % [facility] MCH (RBC) [Entitic mass] 30 pg 26.0 - 34.0 pg [facility] MCHC (RBC) [Mass/Vol] 34.5 % 30.5 - 36.0 % [facility] MCV (RBC) [Entitic vol] 87.1 fL 77.0 - 99.0 fL [facility] Monocytes (Bld) [#/Vol] 0.6 10*3/uL 0.0 - 0.9 10*3/uL [facility] Monocytes/100 WBC (Bld) 6 % 5.0 - 13.0 % [facility] Neutrophils (Bld) [#/Vol] 8.6 10*3/uL High 1.8 - 7.5 10*3/uL [facility] Neutrophils/100 WBC (Bld) 87.2 % High 38.0 - 82.0 % [facility] Nucleated RBC/100 WBC (Bld) [Ratio] 0 % [facility] Platelet mean volume (Bld) [Entitic vol] 9.4 fL 9.0 - 12.7 fL [facility] Platelets (Bld) [#/Vol] 207 10*3/uL 140 - 440 10*3/uL [facility] RBC (Bld) [#/Vol] 3.4 10*6/uL Low 4.40 - 5.9 0 10*6/uL [facility] WBC (Bld) [#/Vol] 9.9 10*3/uL 3.6 - 10.7 10*3/uL [facility] CBC W/Diff, Automatedon 05-0 -2024 Absolute Lymph 0.67 X10 3/uL Low 0.83-4.51 [facility] Comment on above: Performed By: #### L 500.2500, L100.0100 #### [facility] [address] [place], [address] Absolute Neut 10.6 X10 3/uL High 2.0-7.7 [facility] Comment on above: Performed By: #### L 500.2500, L100.0100 #### [facility] [address] [place], [address] Basophils/100 WBC (Bld) 0.2 % Normal 0-[address] [facility] Comment on above: Performed By: #### L 500.2500, L100.0100 #### [facility] [address] [place], [address] Eosinophils/100 WBC (Bld) 0.5 % Normal 0-5 [facility] Comment on above: Performed By: #### L 500.2500, L100.0100 #### [facility] [address] [place], [address] Erythrocyte distribution width (RBC) [Ratio] 14.7 % High 11.6-14.6 [facility] Comment on above: Performed By: #### L 500.2500, L100.0100 #### [facility] [address] [place], [address] Hematocrit (Bld) [Volume fraction] 29.8 % Low 40-54 [facility] Comment on above: Performed By: #### L 500.2500, L100.0100 #### [facility] [address] [place], [address] Hemoglobin (Bld) [Mass/Vol] 10.2 g/dL Low 13.0-16.5 [facility] Comment on above: Performed By: #### L 500.2500, L100.0100 #### [facility] [address] [place], [address] IG% 1.000 High 0.0-0.9 [facility] Comment on above: Result Comment: IG% - Immature Granulocytes (promyelocytes, myelocytes and metamyelocytes) > 1% indicates that a LEFT SHIFT is Present. Performed By: #### L 500.2500, L100.0100 #### [facility] [address] [place], [address] Lymphocytes/100 WBC (Bld) 5.5 % Low 19-41 [facility] Comment on above: Performed By: #### L 500.2500, L100.0100 #### [facility] [address] [place], [address] MCH (RBC) [Entitic mass] 29.7 pg Normal 27.0-32.0 [facility] Comment on above: Performed By: #### L 500.2500, L100.0100 #### [facility] [address] [place], [address] MCHC (RBC) [Mass/Vol] 34.2 g/dL Normal 32-36 [facility] Comment on above: Performed By: #### L 500.2500, L100.0100 #### [facility] [address] [place], [address] MCV (RBC) [Entitic vol] 86.9 fL Normal 80-[address] [facility] Comment on above: Performed By: #### L 500.2500, L100.0100 #### [facility] [address] [place], [address] Monocytes/100 WBC (Bld) 5.4 % Normal 0-[address] [facility] Comment on above: Performed By: #### L 500.2500, L100.0100 #### [facility] [address] [place], [address] Neutrophils/100 WBC (Bld) 87.4 % High 47-70 [facility] Comment on above: Performed By: #### L 500.2500, L100.0100 #### [facility] [address] [place], [address] Nucleated RBC (Bld) [#/Vol] 0 10*3/uL Normal 0-5 [facility] Comment on above: Performed By: #### L 500.2500, L100.0100 #### [facility] [address] [place], [address] Platelet mean volume (Bld) [Entitic vol] 9.5 fL Normal 6.2-12.0 [facility] Comment on above: Performed By: #### L 500.2500, L100.0100 #### [facility] [address] [place], [address] Platelets (Bld) [#/Vol] 223 10*3/uL Normal 150-450 [facility] Comment on above: Performed By: #### L 500.2500, L100.0100 #### [facility] [address] [place], [address] RBC (Bld) [#/Vol] 3.43 10*6/uL Low 4.6-6.2 [facility] Comment on above: Performed By: #### L 500.2500, L100.0100 #### [facility] [address] [place], [address] RDW SD 46.7 fl High 35.1-43.9 [facility] Comment on above: Performed By: #### L 500.2500, L100.0100 #### [facility] [address] [place], [address] WBC (Bld) [#/Vol] 12.1 10*3/uL High 4.4-11.0 [facility] Comment on above: Performed By: #### L 500.2500, L100.0100 #### [facility] [address] [place], [address] CBC WITH AUTO DIFFERENTIALon 08-09-2024 Basophils (Bld) [#/Vol] 0.0 10*3/uL Normal 0.0-0.2 [facility] Comment on above: Performed By: #### L AB17 #### Barrel Turner: CARMEL HOWARD ([id number]) [facility]) [address] [place] [address] Basophils/100 WBC (Bld) 0.2 % Normal 0.0-2.0 [facility] Comment on above: Performed By: #### L AB17 #### Barrel Turner: CARMEL HOWARD ([id number]) [facility]) [address] [place] [address] Eosinophils (Bld) [#/Vol] 0.1 10*3/uL Normal 0.0-0.5 [facility] Comment on above: Performed By: #### L AB17 #### Barrel Turner: CARMEL HOWARD ([id number]) [facility]) [address] [place] [address] Eosinophils/100 WBC (Bld) 0.6 % Normal 0.0-6.0 [facility] Comment on above: Performed By: #### L AB17 #### Barrel Turner: CARMEL HOWARD ([id number]) [facility]) [address] [place] [address] Erythrocyte distribution width (RBC) [Ratio] 14.7 % Normal 11.5-15.0 [facility] Comment on above: Performed By: #### L AB17 #### Barrel Turner: CARMEL HOWARD ([id number]) [facility]) [address] [place] [address] Hematocrit (Bld) [Volume fraction] 29.6 % Low 40.0-52.0 [facility] Comment on above: Performed By: #### L AB17 #### Barrel Turner: CARMEL HOWARD ([id number]) [facility]) [address] [place] [address] Hemoglobin (Bld) [Mass/Vol] 10.2 g/dL Low 13.0-18.0 [facility] Comment on above: Performed By: #### L AB17 #### Barrel Turner: CARMEL HOWARD ([id number]) [facility]) [address] [place] [address] IMMATURE GRANS % 0.5 % Normal 0.0-2.0 [facility] Comment on above: Performed By: #### L AB17 #### Barrel Turner: CARMEL HOWARD ([id number]) [facility]) [address] [place] [address] IMMATURE GRANS ABSOLUTE 0.1 10*3/uL High <0.1 [facility] Comment on above: Performed By: #### L AB17 #### Barrel Turner: CARMEL HOWARD ([id number]) [facility]) [address] [place] [address] Lymphocytes (Bld) [#/Vol] 0.5 10*3/uL Low 1.0-4.3 [facility] Comment on above: Performed By: #### L AB17 #### Barrel Turner: CARMEL HOWARD ([id number]) [facility]) [address] [place] [address] Lymphocytes/100 WBC (Bld) 5.5 % Low 15.0-45.0 [facility] Comment on above: Performed By: #### L AB17 #### Barrel Turner: CARMEL HOWARD ([id number]) [facility]) [address] [place] [address] MCH (RBC) [Entitic mass] 30.0 pg Normal 26.0-34.0 [facility] Comment on above: Performed By: #### L AB17 #### Barrel Turner: CARMEL HOWARD ([id number]) [facility]) [address] [place] [address] MCHC 34.5 % Normal 30.5-36.0 [facility] Comment on above: Performed By: #### L AB17 #### Barrel Turner: CARMEL HOWARD ([id number]) [facility] ([facility]) [address] [place] [address] MCV (RBC) [Entitic vol] 87.1 fL Normal 77.0-99.0 [facility] Comment on above: Performed By: #### L AB17 #### Barrel Turner: CARMEL HOWARD ([id number]) [facility] ([facility]) [address] [place] [address] Monocytes (Bld) [#/Vol] 0.6 10*3/uL Normal 0.0-0.9 [facility] Comment on above: Performed By: #### L AB17 #### Barrel Turner: CARMEL HOWARD ([id number]) [facility]) [address] [place] [address] Monocytes/100 WBC (Bld) 6.0 % Normal 5.0-13.0 [facility] Comment on above: Performed By: #### L AB17 #### Barrel Turner: CARMEL HOWARD ([id number]) [facility] ([facility]) [address] [place] [address] NEUTROPHILS ABSOLUTE 8.6 10*3/uL High 1.8-7.5 [facility] Comment on above: Performed By: #### L AB17 #### Barrel Turner: CARMEL HOWARD ([id number]) [facility] ([facility]) [address] [place] [address] Neutrophils/100 WBC (Bld) 87.2 % High 38.0-82.0 [facility] Comment on above: Performed By: #### L AB17 #### Barrel Turner: CARMEL HOWARD ([id number]) [facility] ([facility]) [address] [place] [address] NRBC 0.0 /100 WBCs Normal 0.0-2.0 [facility] Comment on above: Performed By: #### L AB17 #### Barrel Turner: CARMEL HOWARD ([id number]) [facility] ([facility]) [address] [place] [address] Platelet mean volume (Bld) [Entitic vol] 9.4 fL Normal 9.0-12.7 [facility] Comment on above: Performed By: #### L AB17 #### Barrel Turner: CARMEL HOWARD ([id number]) [facility]) [address] [place] [address] Platelets (Bld) [#/Vol] 207 10*3/uL Normal 140-440 [facility] Comment on above: Performed By: #### L AB17 #### Barrel Turner: CARMEL HOWARD ([id number]) [facility] ([facility]) [address] [place] [address] RBC (Bld) [#/Vol] 3.40 10*6/uL Low 4.40-5.90 [facility] Comment on above: Performed By: #### L AB17 #### Barrel Turner: CARMEL HOWARD ([id number]) [facility]) [address] [place] [address] WBC (Bld) [#/Vol] 9.9 10*3/uL Normal 3.6-10.7 [facility] Comment on above: Performed By: #### L AB17 #### Barrel Turner: CARMEL HOWARD ([id number]) [facility]) [address] [place] [address] COMPREHENSIVE METABOLIC PANE Pollo 08-09-2024 Albumin [Mass/Vol] 2.1 g/dL Low 3.4-4.8 [facility] Comment on above: Performed By: #### L [id number] #### Barrel Turner: CARMEL HOWARD ([id number]) [facility]) [address] [place] [address] ALP [Catalytic activity/Vol] 52 U/L Normal 40-150 [facility] Comment on above: Performed By: #### L [id number] #### Barrel Turner: CARMEL HOWARD ([id number]) [facility]) [address] [place] [address] ALT [Catalytic activity/Vol] U/L Normal <40 [facility] Comment on above: Performed By: #### L [id number] #### Barrel Turner: CARMEL HOWARD ([id number]) [facility] ([facility]) [address] [place] [address] Anion gap [Moles/Vol] 9 mmol/L Normal 3-13 [facility] Comment on above: Performed By: #### L [id number] #### Barrel Turner: CARMEL HOWARD ([id number]) [facility] ([facility]) [address] [place] [address] [place] AST [Catalytic activity/Vol] 15 U/L Normal <34 [facility] Comment on above: Performed By: #### L [id number] #### Barrel Turner: CARMEL HOWARD ([id number]) [facility]) [address] [place] [address] Bilirubin [Mass/Vol] 0.6 mg/dL Normal <1.2 [facility] Comment on above: Performed By: #### L [id number] #### Barrel Turner: CARMEL HOWARD ([id number]) [facility] ([facility]) [address] [place] [address] Calcium [Mass/Vol] 7.4 mg/dL Low 8.8-10.0 [facility] Comment on above: Performed By: #### L [id number] #### Barrel Turner: CARMEL HOWARD ([id number]) [facility] ([facility]) [address] [place] [address] [place] Chloride [Moles/Vol] 107 mmol/L Normal 98-107 [facility] Comment on above: Performed By: #### L [id number] #### Barrel Turner: CARMEL HOWARD ([id number]) [facility] ([facility]) [address] [place] [address] [place] CO2 [Moles/Vol] 25 mmol/L Normal 23-31 [facility] Comment on above: Performed By: #### L AB233 #### Barrel Turner: CARMEL HOWARD ([id number]) [facility] ([facility]) [address] [place] [address] [place] Creatinine [Mass/Vol] 0.60 mg/dL Low 0.72-1.25 [facility] Comment on above: Performed By: #### L AB233 #### Barrel Turner: CARMEL HOWARD ([id number]) [facility]) [address] [place] [address] GLOMERULAR FILTRATION RATE ML/MIN/1.73 SQ M.PREDICTED >90.0 Normal >60.0 [facility] Comment on above: Result Comment: Calc ulation based on the Chronic Kidney Disease Epidemiology Collaboration (CKD-EPI) equation refit without adjustment for race Performed By: #### L [id number] #### Barrel Turner: CARMEL HOAWRD ([id number]) [facility]) [address] [place] [address] Glucose [Mass/Vol] 112 mg/dL Normal 82-115 [facility] Comment on above: Performed By: #### L AB233 #### Barrel Turner: CARMEL HOWARD ([id number]) [address] Potassium [Moles/Vol] 3.2 mmol/L Low 3.5-5.1 [facility] Comment on above: Result Comment: [facility] potassium values may be up to 0.5 mmol/L lower than serum values. Performed By: #### L AB233 #### Barrel Turner: CARMEL HOWARD ([id number]) [facility]) [address] [place] [address] Protein [Mass/Vol] 4.8 g/dL Low 6.4-8.3 [facility] Comment on above: Performed By: #### L AB233 #### Barrel Turner: CARMEL HOWARD ([id number]) [facility]) [address] [place] [address] [place] Sodium [Moles/Vol] 141 mmol/L Normal 136-145 [facility] Comment on above: Performed By: #### L AB233 #### Barrel Turner: CARMEL HOWARD ([id number]) [facility]) [address] [place] [address] [place] Urea nitrogen [Mass/Vol] 14 mg/dL Normal 9-23 [facility] Comment on above: Performed By: #### L AB233 #### Barrel Turner: CARMEL HOWARD ([id number]) [facility] ([facility]) [address] [place] [address] CT ABDOMEN PELVIS W CONTRAST on 08-09-2024 CT ABDOMEN PELVIS W CONTRAST Patient Name: LAINE GARCIA : 1955 Exam Date/Time: 08/09/2024 21:15 Procedure: CT ABDOMEN PELVIS W CONTRAST Ordering Provider: EARL JEFFREY Reason For Exam: CF duodenal perforation --------ADDENDUM #1 -------- Comparison is made to CTA of the abdomen and pelvis from 08/09/2024. Fluid in the LEFT upper quadrant around the spleen is about the same. Small amount of dense material, presumably from previous oral contrast administration, similar on the more recent CTA compared to today. No contrast extravasation seen around the duodenum currently. CRITICAL TEST RESULT COMMUNICATION: Notification of these findings was made to Dr. Spann via [employer] on 08/09/2024 10:10 PM EDT. Report Dictated on Electronically Signed By: Jose D Ayon MD Electronically Signed Date/Time: 08/09/2024 10:10 PM EDT --------ORIGINAL REPORT -------- CT ABDOMEN AND PELVIS CLINICAL INDICATION: CF duodenal perforation TECHNIQUE: CT scan of the abdomen and pelvis with IV contrast. Multiplanar reformations. Dose reduction was employed with automated exposure control. COMPARISON: 08/05/2024 from [facility] FINDINGS: Small RIGHT and moderate to large LEFT pleural effusions. Bibasilar atelectasis. Coronary artery calcifications are noted. Liver shows no significant abnormality. Gallbladder and biliary tree appear normal. Spleen appears normal. In the LEFT upper quadrant there is gas and fluid noted around the spleen, some of this appears loculated. This also contains some higher density material, presumably oral contrast. Adrenal glands show no significant abnormality. Parapelvic renal cysts bilaterally, upper pole simple appearing cortical cyst on the RIGHT. No follow-up required. Pancreas shows no significant abnormality. IVC filter noted. There is a stent in the distal stomach and proximal duodenum. Nonaneurysmal aorta. Diffuse bladder wall thickening, but bladder is not well distended. No bowel obstruction. Normal appendix. No ureteral calculus seen. IMPRESSION: 1. Gas fluid and contrast in the LEFT upper quadrant around the spleen some of which appears loculated. Presumably this relates to history of duodenal perforation. There is a stent in the distal stomach and proximal duodenum. These findings are new since the previous study. 2. Pleural effusions much larger on the LEFT. 3. Coronary artery disease. CRITICAL TEST RESULT COMMUNICATION: Notification of these findings was made to Dano James via [employer] on 08/09/2024 9:33 PM EDT. Report Dictated on Electronically Signed By: Jose D Ayon MD Electronically Signed Date/Time: 08/09/2024 9:55 PM EDT Patient Name: LAINE GARCIA : 1955 Exam Date/Time: 08/09/2024 21:15 Procedure: CT ABDOMEN PELVIS W CONTRAST Ordering Provider: EARL JEFFREY Reason For Exam: CF duodenal perforation CT ABDOMEN AND PELVIS CLINICAL INDICATION: CF duodenal perforation TECHNIQUE: CT scan of the abdomen and pelvis with IV contrast. Multiplanar reformations. Dose reduction was employed with automated exposure control. COMPARISON: 08/05/2024 from [facility] FINDINGS: Small RIGHT and moderate to large LEFT pleural effusions. Bibasilar atelectasis. Coronary artery calcifications are noted. Liver shows no significant abnormality. Gallbladder and biliary tree appear normal. Spleen appears normal. In the LEFT upper quadrant there is gas and fluid noted around the spleen, some of this appears loculated. This also contains some higher density material, presumably oral contrast. Adrenal glands show no significant abnormality. Parapelvic renal cysts bilaterally, upper pole simple appearing cortical cyst on the RIGHT. No follow-up required. Pancreas shows no significant abnormality. IVC filter noted. There is a stent in the distal stomach and proximal duodenum. Nonaneurysmal aorta. Diffuse bladder wall thickening, but bladder is not well distended. No bowel obstruction. Normal appendix. No ureteral calculus seen. IMPRESSION: 1. Gas fluid and contrast in the LEFT upper quadrant around the spleen some of which appears loculated. Presumably this relates to history of duodenal perforation. There is a stent in the distal stomach and proximal duodenum. These findings are new since the previous study. 2. Pleural effusions much larger on the LEFT. 3. Coronary artery disease. CRITICAL TEST RESULT COMMUNICATION: Notification of these findings was made to Dano James via [employer] on 08/09/2024 9:33 PM EDT. Report Dictated on Electronically Signed By: Jose D Ayon MD Electronically Signed Date/Time: 08/09/2024 9:55 PM EDT duodenal perforation Normal [facility] CT Abdomen and Pelvis W cont rast Jose Luis 08-09-2024 Addendum by Jose D Ayon MD on 08/09/2024 10:10 PM EDT Patient Name: LAINE GARCIA : 1955 Exam Date/Time: 08/09/2024 21:15 Procedure: CT ABDOMEN PELVIS W CONTRAST Ordering Provider: EARL JEFFREY Reason For Exam: CF duodenal perforation --------ADDENDUM #1 -------- Comparison is made to CTA of the abdomen and pelvis from 08/09/2024. Fluid in the LEFT upper quadrant around the spleen is about the same. Small amount of dense material, presumably from previous oral contrast administration, similar on the more recent CTA compared to today. No contrast extravasation seen around the duodenum currently. CRITICAL TEST RESULT COMMUNICATION: Notification of these findings was made to Dr. Spann via [employer] on 08/09/2024 10:10 PM EDT. Report Dictated on Electronically Signed By: Jose D Ayon MD Electronically Signed Date/Time: 08/09/2024 10:10 PM EDT --------ORIGINAL REPORT -------- CT ABDOMEN AND PELVIS CLINICAL INDICATION: CF duodenal perforation TECHNIQUE: CT scan of the abdomen and pelvis with IV contrast. Multiplanar reformations. Dose reduction was employed with automated exposure control. COMPARISON: 08/05/2024 from [facility] FINDINGS: Small RIGHT and moderate to large LEFT pleural effusions. Bibasilar atelectasis. Coronary artery calcifications are noted. Liver shows no significant abnormality. Gallbladder and biliary tree appear normal. Spleen appears normal. In the LEFT upper quadrant there is gas and fluid noted around the spleen, some of this appears loculated. This also contains some higher density material, presumably oral contrast. Adrenal glands show no significant abnormality. Parapelvic renal cysts bilaterally, upper pole simple appearing cortical cyst on the RIGHT. No follow-up required. Pancreas shows no significant abnormality. IVC filter noted. There is a stent in the distal stomach and proximal duodenum. Nonaneurysmal aorta. Diffuse bladder wall thickening, but bladder is not well distended. No bowel obstruction. Normal appendix. No ureteral calculus seen. IMPRESSION: 1. Gas fluid and contrast in the LEFT upper quadrant around the spleen some of which appears loculated. Presumably this relates to history of duodenal perforation. There is a stent in the distal stomach and proximal duodenum. These findings are new since the previous study. 2. Pleural effusions much larger on the LEFT. 3. Coronary artery disease. CRITICAL TEST RESULT COMMUNICATION: Notification of these findings was made to Dano James via [employer] on 08/09/2024 9:33 PM EDT. Report Dictated on Electronically Signed By: Jose D Ayon MD Electronically Signed Date/Time: 08/09/2024 9:55 PM EDT [facility] 1. Gas fluid and contrast in the LEFT upper quadrant around the spleen some of which appears loculated. Presumably this relates to history of duodenal perforation. There is a stent in the distal stomach and proximal duodenum. These findings are new since the previous study. 2. Pleural effusions much larger on the LEFT. 3. Coronary artery disease. CRITICAL TEST RESULT COMMUNICATION: Notification of these findings was made to Dano James via [employer] on 08/09/2024 9:33 PM EDT. Report Dictated on Electronically Signed By: Jose D Ayon MD Electronically Signed Date/Time: 08/09/2024 9:55 PM EDT [employer] [facility] 1955 [id number] Exam Date/Time: 08/09/2024 21:15 Procedure: CT ABDOMEN PELVIS W CONTRAST Ordering Provider: EARL JEFFREY Reason For Exam: CF duodenal perforation CT ABDOMEN AND PELVIS CLINICAL INDICATION: CF duodenal perforation TECHNIQUE: CT scan of the abdomen and pelvis with IV contrast. Multiplanar reformations. Dose reduction was employed with automated exposure control. COMPARISON: 08/05/2024 from [facility] FINDINGS: Small RIGHT and moderate to large LEFT pleural effusions. Bibasilar atelectasis. Coronary artery calcifications are noted. Liver shows no significant abnormality. Gallbladder and biliary tree appear normal. Spleen appears normal. In the LEFT upper quadrant there is gas and fluid noted around the spleen, some of this appears loculated. This also contains some higher density material, presumably oral contrast. Adrenal glands show no significant abnormality. Parapelvic renal cysts bilaterally, upper pole simple appearing cortical cyst on the RIGHT. No follow-up required. Pancreas shows no significant abnormality. IVC filter noted. There is a stent in the distal stomach and proximal duodenum. Nonaneurysmal aorta. Diffuse bladder wall thickening, but bladder is not well distended. No bowel obstruction. Normal appendix. No ureteral calculus seen. [facility] Jose D Ayon MD - 08/09/2024 Patient Name: LAINE GARCIA : 1955 [facility]#: [id number] Exam Date/Time: 08/09/2024 21:15 Procedure: CT ABDOMEN PELVIS W CONTRAST Ordering Provider: EARL JEFFREY Reason For Exam: CF duodenal perforation CT ABDOMEN AND PELVIS CLINICAL INDICATION: CF duodenal perforation TECHNIQUE: CT scan of the abdomen and pelvis with IV contrast. Multiplanar reformations. Dose reduction was employed with automated exposure control. COMPARISON: 08/05/2024 from [facility] FINDINGS: Small RIGHT and moderate to large LEFT pleural effusions. Bibasilar atelectasis. Coronary artery calcifications are noted. Liver shows no significant abnormality. Gallbladder and biliary tree appear normal. Spleen appears normal. In the LEFT upper quadrant there is gas and fluid noted around the spleen, some of this appears loculated. This also contains some higher density material, presumably oral contrast. Adrenal glands show no significant abnormality. Parapelvic renal cysts bilaterally, upper pole simple appearing cortical cyst on the RIGHT. No follow-up required. Pancreas shows no significant abnormality. IVC filter noted. There is a stent in the distal stomach and proximal duodenum. Nonaneurysmal aorta. Diffuse bladder wall thickening, but bladder is not well distended. No bowel obstruction. Normal appendix. No ureteral calculus seen. IMPRESSION: 1. Gas fluid and contrast in the LEFT upper quadrant around the spleen some of which appears loculated. Presumably this relates to history of duodenal perforation. There is a stent in the distal stomach and proximal duodenum. These findings are new since the previous study. 2. Pleural effusions much larger on the LEFT. 3. Coronary artery disease. CRITICAL TEST RESULT COMMUNICATION: Notification of these findings was made to Dano James via [employer] on 08/09/2024 9:33 PM EDT. Report Dictated on Electronically Signed By: Jose D Ayon MD Electronically Signed Date/Time: 08/09/2024 9:55 PM EDT [facility] Radiology Study observation (narrative) [facility] CT Abdomen and Pelvis W cont rast IVOrdered By: Jose D Ayon on 08-09-2024 [employer] Work Phone: CTA Chest W/WO Contraston CTA Chest W/WO Contrast [facility] Imaging Services [address] [place] [id number] CTA Chest W/WO Contrast MR#: [id number] Acct: [id number] Name: LAINE GARCIA Rep #: [id number] : 1955 M 69 From: Romie Huang MD PCP: Dr. Dante Gurrola MD Status: ADM IN Study: CTA Chest W/WO Contrast Date of Exam: 08/09/24 Exam# [id number] Ordering Dr: Brandie Spears DO PROCEDURE: CTA CHEST W/WO CONTRAST 08/09/2024 REASON FOR EXAM: PLEURITIC CHEST PAIN TECHNIQUE: CTA imaging of the chest with intravenous contrast. Multiplanar and multisequence images were obtained. Coronal and sagittal MIP images CONTRAST: 100 cc Isovue 370 IV One or more dose reduction techniques were used (e.g., Automated exposure control, adjustment of the mA and/or kV according to patient size, use of iterative reconstruction technique). RADIATION DOSE SUMMARY: CTDlvol: 14.25 mGy DLP: 374.58 mGycm FINDINGS: The study is positive for bilateral pulmonary embolism at the upper hilar level. Partially occlusive pulmonary embolism at the right upper lobe interlobar division for example axial 119 through 148 and branching of the interlobar arteries left upper lobe distally appearing occlusive for example axial 139 at the segment divisions and axial 109. No CT evidence of right heart strain. The central airways appear patent. Moderate left and small right posterior layering pleural effusions with associated adjacent partial passive collapse, atelectasis. Ectatic thoracic aorta appears within limits. No pericardial effusion. Limited images of the upper abdomen with findings concerning for areas of free air and free fluid left upper quadrant about the spleen, clinically correlate. The visualized osseous structures appear within limits. Lower cervical spondylosis/discogenic change partially imaged. CT/CTA Chest W/WO Contrast IMPRESSION: The study is positive for bilateral pulmonary embolism at the upper hilar level. Partially occlusive pulmonary embolism at the right upper lobe interlobar division for example axial 119 through 148 and branching of the interlobar arteries left upper lobe distally appearing occlusive for example axial 139 at the segment divisions and axial 109. No CT evidence of right heart strain. Moderate left and small right posterior layering pleural effusions with associated adjacent partial passive collapse, atelectasis. Limited images of the upper abdomen with findings concerning for areas of free air and free fluid left upper quadrant about the spleen, clinically correlate. Red Alert: Pulmonary embolism as described and findings concerning for possible free air and free fluid partially imaged visualized left upper quadrant The critical information above was relayed directly by me by telephone to Brandie Spears on 08/09/2024 at 9:18 am with readback verification. Reading Location: [facility] CC: Dr. Dante Gurrola MD; Dr. Brandie Spears DO [employer]: Signed Normal [facility] Carbon dioxide, total [Moles /volume] in Central venous bloodOrdered By: Brandie Spears on 08-09-2024 CO2 [Moles/Vol] 24.4 mmol/L 21.0-32.0 [facility] Chloride assayOrdered By: Cathryn Spears on 08-09-2024 Chloride [Moles/Vol] 106 mmol/L 98-108 [facility] Comprehensive metabolic 1998 panelon 08-09-2024 Albumin [Mass/Vol] 2.1 g/dL Low 3.4 - 4.8 g/dL [facility] ALP [Catalytic activity/Vol] 52 U/L 40 - 150 U/L [facility] ALT [Catalytic activity/Vol] U/L NINF - 40 U/L [facility] Anion gap [Moles/Vol] 9 mmol/L 3 - 13 mmol/L [facility] AST [Catalytic activity/Vol] 15 U/L NINF - 34 U/L [facility] Bilirubin [Mass/Vol] 0.6 mg/dL NINF - 1.2 mg/dL [facility] Calcium [Mass/Vol] 7.4 mg/dL Low 8.8 - 10. 0 mg/dL [facility] Chloride [Moles/Vol] 107 mmol/L 98 - 10 7 mmol/L [facility] CO2 [Moles/Vol] 25 mmol/L 23 - 31 mmol/L [facility] Creatinine [Mass/Vol] 0.6 mg/dL Low 0.72 - 1.25 mg/dL [facility] GFR/1.73 sq M.predicted (S/P/Bld) [Vol rate/Area] - PINF [facility] Comment on above: Calculation based on the Chronic Kidney Disease Epidemiology Collaboration (CKD-EPI) equation refit without adjustment for race Glucose [Mass/Vol] 112 mg/dL 82 - 115 mg/dL [facility] Interpretation and review of laboratory results Abnormal [facility] Potassium [Moles/Vol] 3.2 mmol/L Low 3.5 - 5.1 mmol/L [facility] Comment on above: Plasma potassium shruthi ues may be up to 0.5 mmol/L lower than serum values. Protein [Mass/Vol] 4.8 g/dL Low 6.4 - 8.3 g/dL [facility] Sodium [Moles/Vol] 141 mmol/L 136 - 145 mmol/L [facility] Urea nitrogen [Mass/Vol] 14 mg/dL 9 - 23 mg/dL [facility] Consultation - Surgicalon Consultation - Surgical [facility] Medical Records Department [address] [place] [address] Consultation - Surgical 08/09/24 1129 MR#: [id number] Acct: [id number] Name: LAINE GARCIA Rep #: [id number] : 1955 69 From: Lebron Francisco MD PCP: Dr. Dante Gurrola MD Status:ADM IN Location: AL3 CA074-0 Assessment Plan Assessment/Plan (1) Pulmonary embolism: QUALIFIERS: Pulmonary embolism type: multiple subsegmental (without acute cor pulmonale) Qualified Code(s): I26.94 - Multiple subsegmental thrombotic pulmonary emboli without acute cor pulmonale PLAN: -VC filter HPI Consult Data Date of Consult: 08/09/24 HPI Narrative HPI Narrative: LAINE GARCIA, is a 69 M who presents with dark stools and syncope. Found to have duodenal bleeding ulcers which were treated 08/07. Today he had episode of hypoxia and fever and CTA chest revealed small bilateral PE. The abdominal portion of the scan also revealed free air/fluid that was confirmed on dedicated abdominal CT. He has history of prior provoked DVT in 2016 which was treated with course of oral anticoagulation. [facility] History of DVT (deep vein thrombosis) Mitral valve prolapse Home Medications ???Medication ???Instructions ???Recorded ???Last Taken ???Type aspirin 81 mg chewable tablet 81 mg PO DAILY heart health 08/05/24 History multivitamin 1 tab PO DAILY supplement 01/22/20 08/05/24 History omega-3 fatty acids 1,000 mg 2,000 mg PO BID supplement 0 08/05/24 History capsule turmeric 450 mg-turmeric root 1 cap PO DAILY supplement 01/22/20 08/05/24 History extract 50 mg capsule polyethylene glycol 3350 17 17 g PO DAILY PRN laxative effect 08/05/24 08/02/24 History gram/dose oral powder (ClearLax) psyllium husk 0.4 gram capsule 0.8 g PO BID 08/05/24 08/05/24 His tory (Daily Fiber) Allergy/AdvReac Type Severity Reaction Status Date / Time Penicillins AdvReac PT UNABLE Verified 08/05/24 13:12 TO RESPOND-NEEDS F/U Family History Father Myocardial infarction Mother CVA (cerebral vascular accident) Surgical History H/O shoulder surgery History of repair of hiatal hernia Social History Smoking Status: Never smoker alcohol intake: never ROS Constitutional Constitutional: Reports fever(s), lethargy and weakness; Denies frequent falls Eyes Eyes: Denies blind spots, change in vision or loss of vision ENT HEENT: Denies bleeding gums, hoarseness or sore throat Cardiovascular Cardiovascular: Reports abdominal pain; Denies bluish discoloration of hand/feet, chest pain with activity, claudication, cold extremities, cyanosis, dyspnea on exertion, erythema on extremities, irregular heart rhythm, leg edema, leg ulcers, numbness in extremities or weakness in extremities Respiratory/Chest Respiratory/Chest: Denies cough, excessive phlegm production, shortness of breath at rest, shortness of breath with exertion or wheezing Gastrointestinal Gastrointestinal: Reports change in stool character and melena; Denies anorexia, constipation, diarrhea or rectal bleeding Genitourinary Genitourinary: Denies dysuria or hematuria Musculoskeletal Musculoskeletal: Denies abnormal gait Integumentary Integumentary: Denies erythema, non-healing lesions or wounds Neurologic Neurologic: Denies abnormal speech, focal weakness, headache(s), loss of vision, numbness, paresthesias or sensory deficit Hematologic/Lymphatic Hematologic/Lymphatic: Denies easy bleeding, easy bruising or lymphadenopathy Physical Exam Const alert, oriented x3, no apparent distress and healthy appearing General Appearance: cooperative and ill appearing; Negative for combative or lethargic Orientation / Consciousness: awake Exam Limitations: no limitations HEENT Head and Scalp: normocephalic and atraumatic Mouth: oral and palatal mucosa normal, lips normal and tongue normal Eyes EOMs intact bilaterally General Eye: normal appearance of both eyes Neck full ROM General: trachea midline Resp normal respiratory effort and no use of accessory muscles Effort and Inspection: Negative for labored, stridor or audible wheezes Cardio regular rate and regular rhythm Back/Spine Cervical Spine: cervical ROM normal Extremity full ROM, normal capillary refill and no clubbing, cyanosis or edema Skin no rashes or lesions noted and no wounds Neuro oriented x3, CN's II-XII intact bilaterally, no focal motor deficits and no sensory deficits noted Psych thought process normal, cooperative, affect normal, speech normal and activity/motor behavior normal Lab / Micro Data (more content not included)... Normal [facility] ED Nursing Noteon 08-09-2024 ED Nursing Note Patient taken to OR Normal [facility] ED Nursing Note Pt transferred from [facility] for b/l PE and perforated ulcer. Pt had IVC filter placed today Normal [facility] ED Provider Noteon ED Provider Note Emergency Department Encounter [facility] EMERGENCY DEPT Patient: Laine Garcia : 1955 Date of Evaluation: 08/09/2024 ED KIN Provider: Dano James PA-C EDcare was supervised by Dr. Earl who independently examined and evaluated the patient. Please see their attestation note for further details. Chief Complaint Chief Complaint Patient presents with Shortness of Breath ABDI Garcia is a 69 y.o. male who presents to the emergency department for shortness of breath and bowel perforation. Patient transferred here from outside ED. Patient was found to have GI bleed, bilateral PEs and perforated viscus. Patient underwent EGD for repair of GI bleeding and did have a IVC filter placed today. Sent here for surgery evaluation and possible perforated bowel. Limitations to history: None Outside historians: EMR Past History No past medical history on file. No past surgical history on file. Social History Socioeconomic History Marital status: Medications/Allergies Previous Medications No medications on file Allergies Allergen Reactions Penicillins Physical Exam BP (!) 146/116 Pulse 90 Temp 37.3 ?C (99.1 ?F) Resp 16 Wt 77.1 kg (170 lb) SpO2 94% Physical Exam GENERAL APPEARANCE: Awake and alert. Cooperative. HEENT: Normocephalic. Atraumatic. No trismus. NECK: Supple. Trachea midline. CARDIO: Normal rate. Radial pulses symmetrical and palpable LUNGS: Respirations unlabored. CTAB. ABDOMEN: Soft. Diffuse abdominal tenderness. NEUROLOGICAL: No gross facial drooping. No obvious neurologic deficits. Moves all 4 extremities spontaneously. SCREENINGS D Labs: Results for orders placed or performed during the hospital encounter of 08/09/24 ECG 12 lead Collection Time: 08/09/24 7:21 PM Result Value Ref Range Heart Rate 82 bpm QRSD Interval 104 ms QT Interval 374 ms QTC Interval 437 ms P Lawrence 50 degrees QRS Lawrence -9 degrees T Wave Lawrence 34 degrees MS Interval 142 ms Lactic acid with reflex Collection Time: 08/09/24 7:42 PM Result Value Ref Range LACTIC ACID 0.7 0.5 - 2.2 mmol/L Comprehensive metabolic panel Collection Time: 08/09/24 7:42 PM Result Value Ref Range SODIUM 141 136 - 145 mmol/L POTASSIUM 3.2 (L) 3.5 - 5.1 mmol/L CHLORIDE 107 98 - 107 mmol/L CARBON DIOXIDE 25 23 - 31 mmol/L ANION GAP 9 3 - 13 mmol/L UREA NITROGEN 14 9 - 23 mg/dL CREATININE 0.60 (L) 0.72 - 1.25 mg/dL GLUCOSE 112 82 - 115 mg/dL CALCIUM 7.4 (L) 8.8 - 10.0 mg/dL AST (SGOT) 15 <34 U/L ALT <6 <40 U/L ALKALINE PHOSPHATASE 52 40 - 150 U/L ALBUMIN 2.1 (L) 3.4 - 4.8 g/dL BILIRUBIN, TOTAL 0.6 <1.2 mg/dL TOTAL PROTEIN 4.8 (L) 6.4 - 8.3 g/dL eGFR >90.0 >60.0 mL/min/1.73m*2 Type and screen Collection Time: 08/09/24 7:42 PM Result Value Ref Range ABO Grouping O Antibody Screen NEG Rh Type POS CBC auto differential Collection Time: 08/09/24 7:42 PM Result Value Ref Range Auto WBC 9.9 3.6 - 10.7 10*3/uL RBC 3.40 (L) 4.40 - 5.90 10*6/uL Hemoglobin 10.2 (L) 13.0 - 18.0 g/dL Hematocrit 29.6 (L) 40.0 - 52.0 % MCV 87.1 77.0 - 99.0 fL MCH 30.0 26.0 - 34.0 pg MCHC 34.5 30.5 - 36.0 % RDW 14.7 11.5 - 15.0 % Platelets 207 140 - 440 10*3/uL MPV 9.4 9.0 - 12.7 fL nRBC 0.0 0.0 - 2.0 /100 WBCs Neutrophils Relative 87.2 (H) 38.0 - 82.0 % Lymphocytes Relative 5.5 (L) 15.0 - 45.0 % Monocytes Relative 6.0 5.0 - 13.0 % Eosinophils Relative 0.6 0.0 - 6.0 % Basophils Relative 0.2 0.0 - 2.0 % Immature Grans % 0.5 0.0 - 2.0 % Neutrophils Absolute 8.6 (H) 1.8 - 7.5 10*3/uL Lymphocytes Absolute 0.5 (L) 1.0 - 4.3 10*3/uL Monocytes Absolute 0.6 0.0 - 0.9 10*3/uL Eosinophils Absolute 0.1 0.0 - 0.5 10*3/uL Basophils Absolute 0.0 0.0 - 0.2 10*3/uL Immature Grans Absolute 0.1 (H) <0.1 10*3/uL Protime-INR Collection Time: 08/09/24 7:42 PM Result Value Ref Range PROTHROMBIN TIME 11.9 9.0 - 12.0 s INR 1.1 0.9 - 1.1 APTT Collection Time: 08/09/24 7:42 PM Result Value Ref Range APTT 30.9 (H) 20.0 - 30.5 s Confirmatory ABO/Rh Collection Time: 08/09/24 7:42 PM Result Value Ref Range ABO Grouping O Rh Type POS Radiographs: CT abdomen pelvis w contrast Final Result Addendum (preliminary) 1 of 1 Patient Name: LAINE GARCIA : 1955 Exam Date/Time: 08/09/2024 21:15 Procedure: CT ABDOMEN PELVIS W CONTRAST Ordering Provider: EARL JEFFREY Reason For Exam: CF duodenal perforation --------ADDENDUM #1 -------- Comparison is made to CTA of the abdomen and pelvis from 08/09/2024. Fluid in the LEFT upper quadrant around the spleen is about the same. Small amount of dense material, presumably from previous oral contrast administration, similar on the more recent CTA compared to today. No contrast extravasation seen around the duodenum currently. CRITICAL TEST RESULT COMMUNICATION: Notification of these findings was made (more content not included)... Normal [facility] Eosinophil percentageOrdered By: Brandie Spears on 08-09-2024 Eosinophils/100 WBC (Bld) 0.5 % 0-5 [facility] Erythrocyte distribution wid th ratioOrdered By: Brandie Spears on 08-09-2024 Erythrocyte distribution width (RBC) [Ratio] 14.7 % High 11.6-14.6 [facility] Erythrocyte distribution wid th standard deviationOrdered By: Brandie Spears on 08-09-2024 Erythrocyte distribution width (RBC) [Ratio] 46.7 fl High 35.1-43.9 [facility] Glomerular filtration rate ( GFR) estimation/1.73 sq m using serum, plasma, or whole bOrdered By: Brandie Spears on 08-09-2024 GFR/1.73 sq M.predicted among non-blacks MDRD (S/P/Bld) [Vol rate/Area] 109 mL/min/{1.73_m2} >60 [facility] Comment on above: mL/min/1.73m2 CKD-EP I Creatinine Equation (2020) Hematocrit Auto (Bld) [Volum e fraction]Ordered By: Brandie Spears on 08-09-2024 Hematocrit (Bld) [Volume fraction] 29.8 % Low 40-54 [facility] Hemoglobin measurementOrdere d By: Bradnie Spears on 08-09-2024 Hemoglobin (Bld) [Mass/Vol] 10.2 g/dL Low 13.0-16.5 [facility] Immature granulocytes/100 WB C Auto (Bld)Ordered By: Brandie Spears on 08-09-2024 Immature granulocytes/100 WBC (Bld) 1.000 % High 0.0-0.9 [facility] Comment on above: IG% - Immature Granu locytes (promyelocytes, myelocytes and metamyelocytes) > 1% indicates that a LEFT SHIFT is Present. Influenza virus A and B and SARS-CoV-2 (COVID-19) and Respiratory syncytial virus RNAOrdered By: Brandie Spears on 08-09-2024 SARS-CoV-2 (COVID-19) RNA TOMEKA+probe Ql (Unsp spec) [facility] L509.7001on 08-09-2024 Procalcitonin 0.70 ng/mL High <=0.10 [facility] Comment on above: Result Comment: Inte rpretation: <0.10-0.25 ng/mL: Antibiotic therapy discouraged. Bacterial infection unlikely. 0.25-0.50 ng/mL: Antibiotic therapy encouraged. Bacterial infection possible. >0.50 ng/mL: Antibiotic therapy strongly encouraged. Suggestive of presence of bacterial infection. PCT should always be interpreted in the clinical context of the patient. Therefore, clinicians should use the PCT results in conjunction with other laboratory findings and clinical signs of the patient. Performed By: #### L 509.7001 #### [facility] [address] [place], [address] LACTIC ACID WITH REFLEXon Lactate [Moles/Vol] 0.7 mmol/L Normal 0.5-2.2 [facility] Comment on above: Performed By: #### L [id number] #### Barrel Turner: CARMEL HOWARD ([id number]) [facility] ([address] Laboratory - Chemistry and C hemistry - challengeon 08-09-2024 Lactate [Moles/Vol] 0.7 mmol/L 0.5 - 2. 2 mmol/L [facility] Laboratory - Coagulationon 0 08-09-2024 PT Coag (Bld) [Time] 11.9 s 9.0 - 1 2.0 s [facility] M100.678on 08-09-2024 M100.678 Pending SARS-CoV-2 (COVID 19) Negative INFLUENZA A Negative INFLUENZA B Negative RSV PCR Negative Normal [facility] Comment on above: Performed By: #### M 100.678 ####[facility] [id number] [facility] [place], [address] MCV (mean corpuscular volume ) determinationOrdered By: Brandie Spears on 08-09-2024 MCV (RBC) [Entitic vol] 86.9 fL 80-[address] [facility] Magnesiumon 08-09-2024 Magnesium [Mass/Vol] 1.9 mg/dL Normal 1.5-2.[address] [facility] Comment on above: Performed By: #### L 500.2500, L100.0100 #### [facility] [address] [place], [address] Magnesium measurement (mass/ volume)Ordered By: Brandie Spears on 08-09-2024 Magnesium (Unsp spec) [Mass/Vol] 1.9 mg/dL 1.5-2.2 [facility] Mean corpuscular hemoglobin (MCH) determinationOrdered By: Brandie Spears on 08-09-2024 MCH (RBC) [Entitic mass] 29.7 pg 27.0-32.0 [facility] Mean corpuscular hemoglobin concentration (MCHC) determinationOrdered By: Brandie Spears on 08-09-2024 MCHC (RBC) [Mass/Vol] 34.2 g/dL 32-36 [facility] Mean platelet volume determi nationOrdered By: Brandie Spears on 08-09-2024 Platelet mean volume (Bld) [Entitic vol] 9.5 fL 6.2-12.0 [facility] Monocyte percentageOrdered B y: Brandie Spears on 08-09-2024 Monocytes/100 WBC (Bld) 5.4 % 0-[address] [facility] Neutrophil percentageOrdered By: Brandie Spears on 08-09-2024 Neutrophils/100 WBC (Bld) 87.4 % High 47-70 [facility] No Panel Informationon 08-09 Interpretation and review of laboratory results Normal [facility] Nucleated red blood cell per centageOrdered By: Brandie Spears on 08-09-2024 Nucleated RBC/100 WBC (Bld) [Ratio] 0 % 0-5 [facility] Op Noteon 08-09-2024 Op Note Date: 08/09/2024 - 08/10/2024 Location: [facility] OR Name: Laine Garcia, : 1955, Diagnosis Pre-op Diagnosis * Duodenal perforation (CMS/HCC) (HCC) [K63.1] Post-op Diagnosis * Duodenal perforation (CMS/HCC) (HCC) [K63.1] Procedures LAPAROSCOPY, DIAGNOSTIC, LYSIS OF ADHESIONS, EGD 38157 - MS LAPS ABD PRTM&OMENTUM DX W/WO SPEC BR/WA SPX Surgeons * Zara Spann - Primary Procedure Summary Anesthesia: General ASA: II Estimated Blood Loss: 10 mL Drains: * None in log * Staff: [employer]: Dayana Wilkerson RN Scrub Person: Delicia Arroyo Findings: No intraabdominal pathology identified, no signs of perforation or abscess Complications: None; patient tolerated the procedure well. Specimens Collected: No specimens collected during this procedure. Wound Class: Class II: Clean-Contaminated Blood Products: None Prophylactic Antibiotics: Procedure appropriate prophylactic antibiotic(s) given within 1 hour of surgical incision (two hours if receiving Vancomycin or flouroquinolone) [facility] Operative Reporton Operative Report [facility] Medical Records Department [address] [place] [address] Operative Report 08/09/24 1612 MR#: [id number] Acct: [id number] Name: JOSELAINE Ned Rep #: [id number] : 1955 69 From: Lebron Francisco MD PCP: Dr. Dante Gurrola MD Status:ADM IN Location: [place] [address] Operative Report (Standard) Operative Information Date of Procedure: 08/09/24 Pre-Operative Diagnosis: PE, GI bleed Post-Operative Diagnosis: same Surgery/Procedure Performed: insertion IVC filter director nursery school: No Type of Anesthesia: Local and Sedation,Conscious RN Documented Start/Stop Times: Operation Date: 08/07/24 16:30 Case Time Into Pre-Op 08/07/24 15:54 Anesthesia Start 08/07/24 16:52 Into Room 08/07/24 16:52 Procedure Start 08/07/24 17:11 Procedure End 08/07/24 17:53 Anesthesia End 08/07/24 18:05 Out of Room 08/07/24 18:05 Into Recovery 08/07/24 18:14 Out of Recovery 08/07/24 19:01 Procedure Start Time: 11:45 Procedure Stop Time: 11:55 Select all DRAINS/GRAFTS/IMPLANTS that apply: Implanted device Implanted device details: Cook Celect filter Estimated Blood Loss: 3 Specimen collected: No Description of surgery: HPI: Patient is a 69-year-old male who was admitted with significant GI bleed with multiple bleeding duodenal ulcers requiring treatment with cautery, injection, clips. He has a history of remote DVT and is not currently on anticoagulation. He had an episode of hypoxia today and a CTA was performed which revealed bilateral pulmonary emboli as well as suggestion of some intra-abdominal catastrophe that his evolving. Plan is to transfer him to a tertiary facility but an IVC filter is felt to be appropriate to protect him from further embolic events while either awaiting transfer or during his subsequent care. He is taken now for an emergent inferior vena cava filter placement. Description of procedure: Upon obtaining form consent and verification correct patient procedure site the patient was taken to the Dry Heat Cabinet Attendant where he was positioned prepped and draped in usual sterile fashion. Time was performed to find sedation administered Versed and fentanyl. Skin overlying the right common femoral vein was anesthetized 1% lidocaine the vessel accessed under ultrasound guidance with a micropuncture needle wire. This then exchanged for micropuncture sheath routine injection ilio caval venogram was performed revealing satisfactory positioning with no extravasation or dissection and revealed a patent right iliac vein system. Through the micropuncture sheath a J-wire was advanced the micropuncture sheath exchanged for the Cook Celect filter delivery sheath and positioned at the L2 vertebral body. From this position subtraction venacavogram was performed revealing normal caliber vena cava that was patent and free of thrombus. This also revealed the confluence of the renal veins which were marked on the screen. The Cook Celect filter was then advanced and positioned below the lowest renal vein deployed. Completion venacavogram was performed revealing satisfactory positioning with minimal tilt. The sheath was noted manual pressure held for 10 minutes until hemostasis was obtained. The patient was then taken to the PCU for bedrest and recovery prior to his anticipated transfer to a tertiary facility. Surgical Findings: see above Complications Complications: No 08/09/24 8898 Cosigner Signature (if applicable): CC: Dr. Hector Bhakta MD; Dr. Dante Gurrola MD; Dr. Lebron Francisco MD; Dr. Melonie Odell MD; Dr. Derrick Yadav MD Signed Normal [facility] PROTHROMBIN TIMEon 5 INR Coag (PPP) [Relative time] 1.1 {INR} Normal 0.9-1.1 [facility] Comment on above: Result Comment: Yoshi mmended Anticoagulant Therapy: SEE BELOW ----- INR of 2.0 - 3.0 : - Prophylaxis of Venous Thrombosis (high-risk surgery) - Treatment of Venous Thrombosis - Treatment of Pulmonary Embolism (Includes tissue heart valves, Acute Myocardial Infarction to prevent systemic embolism, Valvular Heart Disease, and Atrial Fibrillation) ----- INR of 2.5 - 3.5 : - Mechanical Prosthetic Valves (high risk) - If oral anticoagulant therapy is used to prevent Myocardial Infarction Performed By: #### L [id number] #### Barrel Turner: CARMEL HOWARD ([id number]) [facility] ([facility]) [address] [place] [address] PT Coag (PPP) [Time] 11.9 s Normal 9.0-12.0 [facility] Comment on above: Performed By: #### L [id number] #### Barrel Turner: CARMEL HOWARD ([id number]) [facility] ([facility]) [address] [place] [address] [place] PT Coag (Bld) [Time]on 08-09 INR Coag (PPP) [Relative time] 1.1 {INR} 0.9 - 1.1 [facility] Comment on above: Recommended Anticoag ulant Therapy: SEE BELOW ----- INR of 2.0 - 3.0 : - Prophylaxis of Venous Thrombosis (high-risk surgery) - Treatment of Venous Thrombosis - Treatment of Pulmonary Embolism (Includes tissue heart valves, Acute Myocardial Infarction to prevent systemic embolism, Valvular Heart Disease, and Atrial Fibrillation) ----- INR of 2.5 - 3.5 : - Mechanical Prosthetic Valves (high risk) - If oral anticoagulant therapy is used to prevent Myocardial Infarction Interpretation and review of laboratory results Normal [facility] Phosphoruson 08-09-2024 Phosphate [Mass/Vol] 1.3 mg/dL Invalid Interpretation Code 2.7-4.5 [facility] Comment on above: Performed By: #### L 500.2500, L100.0100 #### [facility] [address] [place], [place] [address], [address] Platelet countOrdered By: Cathryn Spears on 08-09-2024 Platelets (Bld) [#/Vol] 223 10*3/uL 150-450 [facility] Potassium measurement (mass/ volume)Ordered By: Brandie Spears on 08-09-2024 Potassium (Unsp spec) [Mass/Vol] 3.2 mmol/L Low 3.3-5.1 [facility] Procalcitonin [Mass/volume] in Serum or Plasma by ImmunoassayOrdered By: Brandie Spears on 08-09-2024 Procalcitonin IA [Mass/Vol] 0.70 ng/mL High <0.11 [facility] Comment on above: Interpretation:<0.10 -0.25 ng/mL: Antibiotic therapy discouraged. Bacterial infection unlikely.0.25-0.50 ng/mL: Antibiotic therapy encouraged. Bacterial infection possible.>0.50 ng/mL: Antibiotic therapy strongly encouraged. Suggestive of presence of bacterial infection.PCT should always be interpreted in the clinical context of the patient. Therefore, clinicians should use the PCT results in conjunction with other laboratory findings and clinical signs of the patient. Progress Noteon 08-09-2024 Progress Note Patient: Laine veliz : 1955 Date of Evaluation: 08/09/2024 ED Supervising Physician: Ganesh Earl MD I personally evaluated Laine Garcia and made/approved the management plan and take responsibility for the patient management. This will serve as my Supervisory note and shared attestation. I did perform a substantive portion of the visit including all aspects of the Medical Decision Making. I wore appropriate PPE for the entirety of this encounter. In brief, Laine Garcia is a 69 y.o. that presents to the emergency department as a transfer from an outside facility with concerns for perforated viscus. Patient was admitted to an outside facility 5 days ago after having a syncopal episode. States he has been having off-and-on abdominal pain for months. States that they found a bleeding ulcer on EGD and placed a stent secondary to the ulcer being in the duodenum.. States that the next day became short of breath and they found pulmonary emboli in bilateral lungs. They placed an IVC filter. States that he was in the EGD suit today for EGD secondary to bleeding. States that they did a CAT scan after the EGD secondary to concern for perforated viscus and saw air on the CAT scan. He was transferred here for surgical consult. For full details of the encounter please see the KIN note dated same day. The differential diagnosis associated with this patient's presentation includes acute perforated viscus, acute GI bleed, acute electrolyte abnormality, acute pulmonary embolism. I personally discussed the patient's management with other clinicians: All diagnostic, treatment, and disposition decisions were made by myself in conjunction with the Resident. I also supervised hernandez portions of any procedures performed by the Resident. For all further details of the patient's emergency department visit, please see their documentation. (Comment: Please note this report has been produced using speech recognition software and may contain errors related to that system including errors in grammar, punctuation, and spelling, as well as words and phrases that may be inappropriate. If there are any questions or concerns please feel free to contact the dictating provider for clarification.) Ganesh Earl MD Research Journalist [facility] CHIEF COMPLAINT Chief Complaint Patient presents with Shortness of Breath HISTORY OF PRESENT ILLNESS (Location/Symptom, Timing/Onset, Context/Setting, Quality, Duration, Modifying Factors, Severity) Note limiting factors. I wore appropriate PPE for the entirety of this encounter. Nursing Notes were reviewed. Limitations to history: None Outside historians: None REVIEW OF SYSTEMS Review of Systems Pertinent positives and negatives as per HPI. PAST MEDICAL HISTORY No past medical history on file. SURGICAL HISTORY Past Surgical History: Procedure Laterality Date OTHER SURGICAL HISTORY N/A 08/10/2024 APAROSCOPY, DIAGNOSTIC, LYSIS OF ADHESIONS, EGD CURRENT MEDICATIONS There are no discharge medications for this patient. ALLERGIES Penicillins FAMILY HISTORY No family history on file. SOCIAL HISTORY Social History Socioeconomic History Marital status: SCREENINGS [place] Coma Scale Best Eye Response: Spontaneous Best Verbal Response: Oriented Best Motor Response: Follows commands [place] Coma Scale Score: 15 PHYSICAL EXAM ED Triage Vitals [08/09/24 1856] Temp Heart Rate Resp BP 37.3 ?C (99.1 ?F) 78 16 (!) 147/96 SpO2 Temp src Heart Rate Source Patient Position 93 % -- -- -- BP Location FiO2 (%) -- -- Physical Exam Vitals and nursing note reviewed. Constitutional: General: He is not in acute distress. Appearance: He is well-developed. HENT: Head: Normocephalic and atraumatic. Eyes: Conjunctiva/sclera: Conjunctivae normal. Cardiovascular: Rate and Rhythm: Normal rate and regular rhythm. Pulmonary: Effort: Pulmonary effort is normal. Breath sounds: Normal breath sounds. Abdominal: Palpations: Abdomen is soft. Comments: Mild epigastric tenderness to palpation, no distention Musculoskeletal: General: No swelling. Cervical back: Neck supple. Skin: General: Skin is warm and dry. Neurological: Mental Status: He is alert. Psychiatric: Mood and Affect: Mood normal. DIAGNOSTIC RESULTS Procedures/EKG: ECG done August 09, 2024 at 7:17 PM and interpreted by me at 7:20 PM shows sinus rhythm, ventricular of 82 bpm, no ST segment elevation, nonspecific ST depression in lateral leads, QTc of 437 RADIOLOGY (Per Emergency Physician): Interpretation per the Radiologist below, if available at the time of this note: CT abdomen pelvis w contrast Final Result Addendum (preliminary) 1 of 1 Patient Name: LAINE GARCIA : 1955 Exam Date/Time: 08/09/2024 21:15 Procedure: CT ABDOMEN PELVIS W CONTRAST Orderi (more content not included)... Normal [facility] RBC Auto (Bld) [#/Vol]Ordere d By: Brandie Spears on 08-09-2024 RBC (Bld) [#/Vol] 3.43 10*6/uL Low 4.6-6.2 [facility] RESPIRATORY PANEL MOLECULARo n 08-09-2024 RP PANEL Normal Reference Ran ge = Not Detected Resp path DNA+RNA Pnl Resp TOMEKA+probe Nucleic acid amplification test method ADENOVIRUS Not Detected INFLUENZA A Not Detected INFLUENZA A (SUBTYPE H1) Not Detected INFLUENZA A (SUBTYPE H3) Not Detected INFLUENZA B Not Detected HUMAN METAPHNEUMO Not Detected PARAINFLUENZA 1 Not Detected PARAINFLUENZA 2 Not Detected PARAINFLUENZA 3 Not Detected PARAINFLUENZA 4 Not Detected RHINOVIRUS Not Detected RSV A Not Detected RSV B Not Detected Normal [facility] Comment on above: Performed By: #### L 500.2500, L100.0100 #### [facility] [place], [address] Respiratory pathogens detect ion panel by molecular detection methodOrdered By: Brandie Spears on 08-09-2024 Respiratory pathogens DNA and RNA panel TOMEKA+probe (Resp) [facility] Serum creatinine measurement (mass/volume)Ordered By: Brandie Spears on 08-09-2024 Creatinine [Mass/Vol] 0.51 mg/dL Low 0.70-1.20 [facility] Serum glucose measurement (m ass/volume)Ordered By: Brandie Spears on 08-09-2024 Glucose [Mass/Vol] 116 mg/dL High 70-99 [facility] Serum or plasma calcium arnie urement (mass/volume)Ordered By: Brandie Spears on 08-09-2024 Calcium [Mass/Vol] 7.7 mg/dL 7.6-11.0 [facility] Serum or plasma urea nitroge n measurement (mass/volume)Ordered By: Brandie Spears on 08-09-2024 Urea nitrogen [Mass/Vol] 16 mg/dL 4-19 [facility] Sodium levelOrdered By: Lashay Spears on 08-09-2024 Sodium [Moles/Vol] 139 mmol/L 133-145 [facility] White blood cell (WBC) count Ordered By: Brandie Spears on 08-09-2024 WBC (Bld) [#/Vol] 12.1 10*3/uL High 4.4-11.0 [facility] aPTT Coag (Bld) [Time]on aPTT Coag (PPP) [Time] 30.9 s High 20.0 - 30.5 s [facility] Interpretation and review of laboratory results Abnormal [facility] NOTE: The therapeuti c time for Heparin anticoagulation, based on Xa activity inhibition, is an APTT of 46-80 seconds. [facility] Bilirubin, totalOrdered By: Betito Avendano on 08-08-2024 Bilirubin [Mass/Vol] 0.52 mg/dL 0.00-1.30 [facility] CBC W/Diff, Automatedon Absolute Lymph 0.44 X10 3/uL Low 0.83-4.51 [facility] Comment on above: Performed By: #### L 500.2500, L100.0100 #### [facility] [address] [place], [address] Absolute Neut 12.6 X10 3/uL High 2.0-7.7 [facility] Comment on above: Performed By: #### L 500.2500, L100.0100 #### [facility] [address] [place], [address] Basophils/100 WBC (Bld) 0.1 % Normal 0-[address] [facility] Comment on above: Performed By: #### L 500.2500, L100.0100 #### [facility] [address] [place], [address] Eosinophils/100 WBC (Bld) 0.1 % Normal 0-5 [facility] Comment on above: Performed By: #### L 500.2500, L100.0100 #### [facility] [address] [place], [address] Erythrocyte distribution width (RBC) [Ratio] 15.2 % High 11.6-14.6 [facility] Comment on above: Performed By: #### L 500.2500, L100.0100 #### [facility] [address] [place], [address] Hematocrit (Bld) [Volume fraction] 28.7 % Low 40-54 [facility] Comment on above: Performed By: #### L 500.2500, L100.0100 #### [facility] [address] [place], [address] Hemoglobin (Bld) [Mass/Vol] 9.8 g/dL Low 13.0-16.5 [facility] Comment on above: Performed By: #### L 500.2500, L100.0100 #### [facility] [address] [place], [address] IG% 0.500 Normal 0.0-0.9 [facility] Comment on above: Result Comment: IG% - Immature Granulocytes (promyelocytes, myelocytes and metamyelocytes) > 1% indicates that a LEFT SHIFT is Present. Performed By: #### L 500.2500, L100.0100 #### [facility] [address] [place], [address] Lymphocytes/100 WBC (Bld) 3.2 % Low 19-41 [facility] Comment on above: Performed By: #### L 500.2500, L100.0100 #### [facility] [address] [place], [address] MCH (RBC) [Entitic mass] 30.0 pg Normal 27.0-32.0 [facility] Comment on above: Performed By: #### L 500.2500, L100.0100 #### [facility] [address] [place], [address] MCHC (RBC) [Mass/Vol] 34.1 g/dL Normal 32-36 [facility] Comment on above: Performed By: #### L 500.2500, L100.0100 #### [facility] [address] [place], [address] MCV (RBC) [Entitic vol] 87.8 fL Normal 80-[address] [facility] Comment on above: Performed By: #### L 500.2500, L100.0100 #### [facility] [address] [place], [address] Monocytes/100 WBC (Bld) 4.6 % Normal 0-[address] [facility] Comment on above: Performed By: #### L 500.2500, L100.0100 #### [facility] [address] [place], [address] Neutrophils/100 WBC (Bld) 91.5 % High 47-70 [facility] Comment on above: Performed By: #### L 500.2500, L100.0100 #### [facility] [address] [place], [address] Nucleated RBC (Bld) [#/Vol] 0 10*3/uL Normal 0-5 [facility] Comment on above: Performed By: #### L 500.2500, L100.0100 #### [facility] [address] [place], [address] Platelet mean volume (Bld) [Entitic vol] 9.4 fL Normal 6.2-12.0 [facility] Comment on above: Performed By: #### L 500.2500, L100.0100 #### [facility] [address] [place], [address] Platelets (Bld) [#/Vol] 201 10*3/uL Normal 150-450 [facility] Comment on above: Performed By: #### L 500.2500, L100.0100 #### [facility] [address] [place], [address] RBC (Bld) [#/Vol] 3.27 10*6/uL Low 4.6-6.2 [facility] Comment on above: Performed By: #### L 500.2500, L100.0100 #### [facility] [address] [place], [address] RDW SD 49.0 fl High 35.1-43.9 [facility] Comment on above: Performed By: #### L 500.2500, L100.0100 #### [facility] [address] [place], [address] WBC (Bld) [#/Vol] 13.8 10*3/uL High 4.4-11.0 [facility] Comment on above: Performed By: #### L 500.2500, L100.0100 #### [facility] [address] [place], [address] Absolute Neut Normal 2.0-7.7 [facility] Comment on above: Result Comment: DUPL ICATE Performed By: #### L 500.2500, L100.0100 #### [facility] [address] [place], [address] HCT Normal 40-54 [facility] Comment on above: Result Comment: DUPL ICATE Performed By: #### L 500.2500, L100.0100 #### [facility] [address] [place], [address] HGB Normal 13.0-16.5 [facility] Comment on above: Result Comment: DUPL ICATE Performed By: #### L 500.2500, L100.0100 #### [facility] [address] [place], [address] MCH Normal 27.0-32.0 [facility] Comment on above: Result Comment: DUPL ICATE Performed By: #### L 500.2500, L100.0100 #### [facility] [address] [place], [address] MCHC Normal 32-36 [facility] Comment on above: Result Comment: DUPL ICATE Performed By: #### L 500.2500, L100.0100 #### [facility] [address] [place], [address] MCV Normal 80-94 [facility] Comment on above: Result Comment: DUPL ICATE Performed By: #### L 500.2500, L100.0100 #### [facility] [address] [place], [address] NEUT% Normal 47-70 [facility] Comment on above: Result Comment: DUPL ICATE Performed By: #### L 500.2500, L100.0100 #### [facility] [address] [place], [address] PLT Normal 150-450 [facility] Comment on above: Result Comment: DUPL ICATE Performed By: #### L 500.2500, L100.0100 #### [facility] [address] [place], [address] RBC Normal 4.6-6.2 [facility] Comment on above: Result Comment: DUPL ICATE Performed By: #### L 500.2500, L100.0100 #### [facility] [address] [place], [address] RDW CV Normal 11.6-14.6 [facility] Comment on above: Result Comment: DUPL ICATE Performed By: #### L 500.2500, L100.0100 #### [facility] [address] [place], [address] RDW SD Normal 35.1-43.9 [facility] Comment on above: Result Comment: DUPL ICATE Performed By: #### L 500.2500, L100.0100 #### [facility] [address] [place], [address] WBC Normal 4.4-11.0 [facility] Comment on above: Result Comment: DUPL ICATE Performed By: #### L 500.2500, L100.0100 #### [facility] [address] [place], [address] Comprehensive Metabolic Prof [facility] 08-08-2024 Albumin [Mass/Vol] 2.7 g/dL Low 3.4-4.8 [facility] Comment on above: Performed By: #### L 500.2500, L100.0100 #### [facility] [address] [place], [address] Albumin/Globulin [Mass ratio] 1.1 {ratio} Normal 0.9-2.4 [facility] Comment on above: Performed By: #### L 500.2500, L100.0100 #### [facility] [address] [place], [address] ALK PHOS 59 U/L Normal 40-129 [facility] Comment on above: Performed By: #### L 500.2500, L100.0100 #### [facility] [address] [place], [address] ALT [Catalytic activity/Vol] 7 U/L Normal <=46 [facility] Comment on above: Performed By: #### L 500.2500, L100.0100 #### [facility] [address] [place], [address] AST [Catalytic activity/Vol] 15 U/L Normal <=37 [facility] Comment on above: Performed By: #### L 500.2500, L100.0100 #### [facility] [address] [place], [address] Bilirubin [Mass/Vol] 0.52 mg/dL Normal 0.00-1.30 [facility] Comment on above: Performed By: #### L 500.2500, L100.0100 #### [facility] [address] [place], [address] BUN/CRE 29.6 RATIO High 10-20 [facility] Comment on above: Performed By: #### L 500.2500, L100.0100 #### [facility] [address] [place], [address] Calcium [Mass/Vol] 7.7 mg/dL Normal 7.6-11.0 [facility] Comment on above: Performed By: #### L 500.2500, L100.0100 #### [facility] [address] [place], [address] Chloride [Moles/Vol] 107 mmol/L Normal 98-108 [facility] Comment on above: Performed By: #### L 500.2500, L100.0100 #### [facility] [address] [place], [address] CO2 [Moles/Vol] 24.0 mmol/L Normal 21.0-32.0 [facility] Comment on above: Performed By: #### L 500.2500, L100.0100 #### [facility] [address] [place], [address] Creatinine [Mass/Vol] 0.60 mg/dL Low 0.70-1.20 [facility] Comment on above: Performed By: #### L 500.2500, L100.0100 #### [facility] [address] [place], [address] ECRCL 88.72 ml/min Normal 50-250 [facility] Comment on above: Performed By: #### L 500.2500, L100.0100 #### [facility] [address] [place], [address] GAP 8 Normal 5-15 [facility] Comment on above: Performed By: #### L 500.2500, L100.0100 #### [facility] [address] [place], [address] GFR/1.73 sq M.predicted among non-blacks MDRD (S/P/Bld) [Vol rate/Area] 104 mL/min/{1.73_m2} Normal >60 [facility] Comment on above: Result Comment: mL/m in/1.73m2 CKD-EPI Creatinine Equation (2020) Performed By: #### L 500.2500, L100.0100 #### [facility] [address] [place], [address] Globulin (S) [Mass/Vol] 2.4 g/dL Normal 2.2-4.2 [facility] Comment on above: Performed By: #### L 500.2500, L100.0100 #### [facility] [address] [place], [address] Glucose [Mass/Vol] 120 mg/dL High 70-99 [facility] Comment on above: Performed By: #### L 500.2500, L100.0100 #### [facility] [address] [place], [address] Potassium [Moles/Vol] 3.3 mmol/L Normal 3.3-5.1 [facility] Comment on above: Performed By: #### L 500.2500, L100.0100 #### [facility] [address] [place], [address] Sodium [Moles/Vol] 138 mmol/L Normal 133-145 [facility] Comment on above: Performed By: #### L 500.2500, L100.0100 #### [facility] [address] [place], [address] T PROT 5.1 g/dL Low 5.9-8.4 [facility] Comment on above: Performed By: #### L 500.2500, L100.0100 #### [facility] [address] [place], [address] Urea nitrogen [Mass/Vol] 18 mg/dL Normal 4-19 [facility] Comment on above: Performed By: #### L 500.2500, L100.0100 #### [facility] [address] [place], [address] ALB Normal 3.4-4.8 [facility] Comment on above: Result Comment: DUPL ICATE Performed By: #### L 500.2500, L100.0100 #### [facility] [address] [place], [address] ALK PHOS Normal 40-129 [facility] Comment on above: Result Comment: DUPL ICATE Performed By: #### L 500.2500, L100.0100 #### [facility] [address] [place], [address] ALT Normal <=46 [facility] Comment on above: Result Comment: DUPL ICATE Performed By: #### L 500.2500, L100.0100 #### [facility] [address] [place], [address] AST Normal <=37 [facility] Comment on above: Result Comment: DUPL ICATE Performed By: #### L 500.2500, L100.0100 #### [facility] [address] [place], [address] BUN Normal 4-19 [facility] Comment on above: Result Comment: DUPL ICATE Performed By: #### L 500.2500, L100.0100 #### [facility] [address] [place], [address] BUN/CRE Normal 10-20 [facility] Comment on above: Result Comment: DUPL ICATE Performed By: #### L 500.2500, L100.0100 #### [facility] [address] [place], [address] Calcium Normal 7.6-11.0 [facility] Comment on above: Result Comment: DUPL ICATE Performed By: #### L 500.2500, L100.0100 #### [facility] [address] [place], [address] CL Normal 98-108 [facility] Comment on above: Result Comment: DUPL ICATE Performed By: #### L 500.2500, L100.0100 #### [facility] [address] [place], [address] CO2 Normal 21.0-32.0 [facility] Comment on above: Result Comment: DUPL ICATE Performed By: #### L 500.2500, L100.0100 #### [facility] [address] [place], [address] CREAT,SERUM Normal 0.70-1.20 [facility] Comment on above: Result Comment: DUPL ICATE Performed By: #### L 500.2500, L100.0100 #### [facility] [address] [place], [address] eGFR Normal >60 [facility] Comment on above: Result Comment: DUPL ICATE Performed By: #### L 500.2500, L100.0100 #### [facility] [address] [place], [address] GAP Normal 5-15 [facility] Comment on above: Result Comment: DUPL ICATE Performed By: #### L 500.2500, L100.0100 #### [facility] [address] [place], [address] GLU Normal 70-99 [facility] Comment on above: Result Comment: DUPL ICATE Performed By: #### L 500.2500, L100.0100 #### [facility] [address] [place], [address] Potassium Normal 3.3-5.1 [facility] Comment on above: Result Comment: DUPL ICATE Performed By: #### L 500.2500, L100.0100 #### [facility] [address] [place], [address] T BILI Normal 0.00-1.30 [facility] Comment on above: Result Comment: DUPL ICATE Performed By: #### L 500.2500, L100.0100 #### [facility] [address] [place], [address] T PROT Normal 5.9-8.4 [facility] Comment on above: Result Comment: DUPL ICATE Performed By: #### L 500.2500, L100.0100 #### [facility] [address] [place], [address] Comprehensive Metabolic Profil Normal 133-145 [facility] Comment on above: Result Comment: DUPL ICATE Performed By: #### L 500.2500, L100.0100 #### [facility] [address] [place], [place], [id number] Laboratory - Chemistry and C hemistry - challengeOrdered By: Betito Avendano on 08-08-2024 AST [Catalytic activity/Vol] 15 U/L <38 [facility] Serum globulin measurementOr dered By: Betito Avendano on 08-08-2024 Globulin (S) [Mass/Vol] 2.4 g/dL 2.2-4.[address] [facility] Serum or plasma alanine fuchs otransferase (ALT) measurementOrdered By: Betito Avendano on 08-08-2024 ALT [Catalytic activity/Vol] 7 U/L <47 [facility] Serum or plasma albumin arnie urement (mass/volume)Ordered By: Betito Avendano on 08-08-2024 Albumin [Mass/Vol] 2.7 g/dL Low 3.4-4.8 [facility] Serum or plasma albumin/glob ulin mass ratioOrdered By: Betito Avendano on 08-08-2024 Albumin/Globulin [Mass ratio] 1.1 {ratio} 0.9-2.4 [facility] Serum or plasma alkaline sherice sphatase measurementOrdered By: Betito Avendano on 08-08-2024 ALP [Catalytic activity/Vol] 59 U/L 40-129 [facility] Total proteinOrdered By: John Avendano on 08-08-2024 Protein [Mass/Vol] 5.1 g/dL Low 5.9-8.4 [facility] Abdomen Single Viewon [address] [facility] Imaging Services [address] [place], [place] [address] Abdomen Single View MR#: [id number] Acct: [id number] Name: GARCIALAINE Ned Rep #: [id number] : 1955 M 69 From: Lebron Burrell MD PCP: Dr. Dante Gurrola MD Status: ADM IN Study: Abdomen Single View Date of Exam: 08/07/24 Exam# [id number] Ordering Dr: Betito Avendano DO PROCEDURE: ABDOMEN SINGLE VIEW 08/07/2024 REASON FOR EXAM: NG PLACEMENT. TECHNIQUE: Single view abdomen. COMPARISON: Earlier KUB dated 08/07/2024. FINDINGS: Bowel gas: Diffuse gas throughout the large and small bowel. Calcifications: Unremarkable. Bones: Spondylosis. Other: Nasogastric tube has been inserted, tip coiled in the body of the stomach. Wall stent is again noted projecting over the right hemiabdomen. RAD/Abdomen Single View IMPRESSION: Interval insertion of a nasogastric tube, tip projecting over the body of the stomach. Bowel-gas pattern unchanged. Reading Location: [facility] CC: Dr. Dante Gurrola MD; Betito Avendano DO Acidizer Water Well: Signed Normal [facility] Abdomen Single View (Portabl e)on 08-07-2024 Abdomen Single View (Portable) [facility] Imaging Services [address] [place] [id number] Abdomen Single View (Portable) MR#: [id number] Acct: [id number] Name: LAINE GARCIA Rep #: [id number] : 1955 M 69 From: Lebron Burrell MD PCP: Dr. Dante Gurrola MD Status: ADM IN Study: Abdomen Single View (Portable) Date of Exam: 0 08/07/24 Exam# [id number] Ordering Dr: Betito Avendano DO PROCEDURE: ABDOMEN SINGLE VIEW (PORTABLE) 08/07/2024 REASON FOR EXAM: ABDOMINAL DISTENTION. POST EGD. TECHNIQUE: Single view abdomen. COMPARISON: CT ABDOMEN AND PELVIS DATED 08/05/2024. FINDINGS: Bowel gas: Large amount of gas throughout the large and small bowel. Calcifications: Unremarkable. Bones: Spondylosis. Other: A semiopaque wall stent projects over the right upper quadrant. This may be related to previous TIPS procedure. RAD/Abdomen Single View (Portable) IMPRESSION: Bowel-gas pattern suggests severe adynamic/reflex ileus. Suspicion of previous TIPS procedure. Reading Location: [facility] CC: Dr. Dante Gurrola MD; Betito Avendano DO Acidizer Water Well: Signed Normal [facility] Abdomen/Pelvis W IV Cont ONL Yon 08-07-2024 Abdomen/Pelvis W IV Cont ONLY [facility] Imaging Services [address] [place] [address] Abdomen/Pelvis W IV Cont ONLY MR#: [id number] Acct: [id number] Name: LAINE GARCIA Rep #: [id number] : 1955 M 69 From: Joshua guevara MD PCP: Dr. Dante Gurrola MD Status: ADM IN Study: Abdomen/Pelvis W IV Cont ONLY Date of Exam: Exam# [id number] Ordering Dr: Betito Avendano DO PROCEDURE: ABDOMEN/PELVIS W IV CONT ONLY 08/07/2024 REASON FOR EXAM: ABDOMINAL DISTENTION TECHNIQUE: Abdomen and pelvis CT with intravenous contrast. Coronal and Sagittal reconstruction series were provided. PATIENT PREPARATION: Per protocol ORAL CONTRAST TYPE: None. AMOUNT: mL CONTRAST: Omnipaque 350 VOLUME: 100 mL Not Provided Gauge IV One or more dose reduction techniques were used (e.g., Automated exposure control, adjustment of the mA and/or kV according to patient size, use of iterative reconstruction technique. COMPARISON: CT abdomen and pelvis 08/06/2019 FINDINGS: Lung bases: Small-moderate bilateral pleural effusions with atelectasis. Liver: Homogeneous attenuation. Scattered simple cysts. Gallbladder: No ductal dilation. Status post cholecystectomy. Spleen: Normal size. Pancreas: Normal size without evidence of mass surrounding inflammation or ductal dilation. Adrenals: Unremarkable. Kidneys: Normal renal sizes. No hydronephrosis. Bilateral cortical and parapelvic cysts. No calculi or hydronephrosis. Bladder: Unremarkable. Reproductive Organs: No pelvic mass. Bowel: Interval placement gastro duodenal stent. Feeding tube is also new since prior. There is gastric pylorus and proximal duodenal wall thickening. No pneumoperitoneum. No bowel dilation. Moderate colonic stool. Appendix: Normal appendix. Lymph nodes: No suspicious lymph node enlargement. Vasculature: Mild diffuse atherosclerotic calcifications are noted. Peritoneum / Retroperitoneum: No pneumoperitoneum. No ascites. Bones: Degenerative changes of the spine. CT/Abdomen/Pelvis W IV Cont ONLY IMPRESSION: Interval placement gastroduodenal stent, since prior. No pneumoperitoneum. Otherwise, no acute findings in the abdomen and pelvis. Reading Location: E[facility]ANPREMAR[facility]ANNA CC: Dr. Dante Gurrola MD; Betito Avendano, Acidizer Water Well: Signed Normal [facility] Activated partial thrombopla stin time (aPTT) in platelet poor plasma by coagulation aOrdered By: Artemio Winchester on 08-07-2024 aPTT Coag (PPP) [Time] 33.7 s 24.1-36.2 [facility] CBC W/Diff, Automatedon Absolute Lymph 0.34 X10 3/uL Low 0.83-4.51 [facility] Comment on above: Performed By: #### L 500.2500, L100.0100 #### [facility] [address] [place], [address] Absolute Neut 13.6 X10 3/uL High 2.0-7.7 [facility] Comment on above: Performed By: #### L 500.2500, L100.0100 #### [facility] [address] [facility] [place], [address] Basophils/100 WBC (Bld) 0.1 % Normal 0-[address] [facility] Comment on above: Performed By: #### L 500.2500, L100.0100 #### [facility] [address] [place], [address] Eosinophils/100 WBC (Bld) 0.0 % Normal 0-5 [facility] Comment on above: Performed By: #### L 500.2500, L100.0100 #### [facility] [address] [facility] [place], [address] Erythrocyte distribution width (RBC) [Ratio] 14.8 % High 11.6-14.6 [facility] Comment on above: Performed By: #### L 500.2500, L100.0100 #### [facility] [address] [place], [address] Hematocrit (Bld) [Volume fraction] 30.2 % Low 40-54 [facility] Comment on above: Performed By: #### L 500.2500, L100.0100 #### [facility] [address] [place], [address] Hemoglobin (Bld) [Mass/Vol] 10.3 g/dL Low 13.0-16.5 [facility] Comment on above: Performed By: #### L 500.2500, L100.0100 #### [facility] [address] [place], [address] IG% 1.000 High 0.0-0.9 [facility] Comment on above: Result Comment: IG% - Immature Granulocytes (promyelocytes, myelocytes and metamyelocytes) > 1% indicates that a LEFT SHIFT is Present. Performed By: #### L 500.2500, L100.0100 #### [facility] [address] [place], [address] Lymphocytes/100 WBC (Bld) 2.3 % Low 19-41 [facility] Comment on above: Performed By: #### L 500.2500, L100.0100 #### [facility] [address] [place], [address] MCH (RBC) [Entitic mass] 30.0 pg Normal 27.0-32.0 [facility] Comment on above: Performed By: #### L 500.2500, L100.0100 #### [facility] [address] [place], [address] MCHC (RBC) [Mass/Vol] 34.1 g/dL Normal 32-36 [facility] Comment on above: Performed By: #### L 500.2500, L100.0100 #### [facility] [address] [place], [address] MCV (RBC) [Entitic vol] 88.0 fL Normal 80-[address] [facility] Comment on above: Performed By: #### L 500.2500, L100.0100 #### [facility] [address] [place], [address] Monocytes/100 WBC (Bld) 3.9 % Normal 0-10 [facility] Comment on above: Performed By: #### L 500.2500, L100.0100 #### [facility] [address] [place], [address] Neutrophils/100 WBC (Bld) 92.7 % High 47-70 [facility] Comment on above: Performed By: #### L 500.2500, L100.0100 #### [facility] [address] [place], [address] Nucleated RBC (Bld) [#/Vol] 0 10*3/uL Normal 0-5 [facility] Comment on above: Performed By: #### L 500.2500, L100.0100 #### [facility] [address] [place], [address] Platelet mean volume (Bld) [Entitic vol] 9.2 fL Normal 6.2-12.0 [facility] Comment on above: Performed By: #### L 500.2500, L100.0100 #### [facility] [address] [place], [address] Platelets (Bld) [#/Vol] 214 10*3/uL Normal 150-450 [facility] Comment on above: Performed By: #### L 500.2500, L100.0100 #### [facility] [address] [place], [address] RBC (Bld) [#/Vol] 3.43 10*6/uL Low 4.6-6.2 [facility] Comment on above: Performed By: #### L 500.2500, L100.0100 #### [facility] [address] [place], [address] RDW SD 46.8 fl High 35.1-43.9 [facility] Comment on above: Performed By: #### L 500.2500, L100.0100 #### [facility] [address] [place], [address] WBC (Bld) [#/Vol] 14.6 10*3/uL High 4.4-11.0 [facility] Comment on above: Performed By: #### L 500.2500, L100.0100 #### [facility] [address] [place], [address] Comprehensive Metabolic Prof [facility] 08-07-2024 Albumin [Mass/Vol] 3.0 g/dL Low 3.4-4.8 [facility] Comment on above: Performed By: #### L 500.2500, L100.0100 #### [facility] [address] [place], [address] Albumin/Globulin [Mass ratio] 1.3 {ratio} Normal 0.9-2.4 [facility] Comment on above: Performed By: #### L 500.2500, L100.0100 #### [facility] [address] [place], [address] ALK PHOS 60 U/L Normal 40-129 [facility] Comment on above: Performed By: #### L 500.2500, L100.0100 #### [facility] [address] [place], [address] ALT [Catalytic activity/Vol] 6 U/L Normal <=46 [facility] Comment on above: Performed By: #### L 500.2500, L100.0100 #### [facility] [address] [place], [address] AST [Catalytic activity/Vol] 14 U/L Normal <=37 [facility] Comment on above: Performed By: #### L 500.2500, L100.0100 #### [facility] [address] [place], [address] Bilirubin [Mass/Vol] 0.78 mg/dL Normal 0.00-1.30 [facility] Comment on above: Performed By: #### L 500.2500, L100.0100 #### [facility] [address] [place], [address] BUN/CRE 26.1 RATIO High 10-20 [facility] Comment on above: Performed By: #### L 500.2500, L100.0100 #### [facility] [address] [place], [address] Calcium [Mass/Vol] 7.8 mg/dL Normal 7.6-11.0 [facility] Comment on above: Performed By: #### L 500.2500, L100.0100 #### [facility] [address] [place], [address] Chloride [Moles/Vol] 107 mmol/L Normal 98-108 [facility] Comment on above: Performed By: #### L 500.2500, L100.0100 #### [facility] [address] [place], [address] CO2 [Moles/Vol] 21.5 mmol/L Normal 21.0-32.0 [facility] Comment on above: Performed By: #### L 500.2500, L100.0100 #### [facility] [address] [place], [address] Creatinine [Mass/Vol] 0.68 mg/dL Low 0.70-1.20 [facility] Comment on above: Performed By: #### L 500.2500, L100.0100 #### [facility] [address] [place], [address] ECRCL 88.72 ml/min Normal 50-250 [facility] Comment on above: Performed By: #### L 500.2500, L100.0100 #### [facility] [address] [place], [address] GAP 9 Normal 5-15 [facility] Comment on above: Performed By: #### L 500.2500, L100.0100 #### [facility] [address] [place], [address] GFR/1.73 sq M.predicted among non-blacks MDRD (S/P/Bld) [Vol rate/Area] 100 mL/min/{1.73_m2} Normal >60 [facility] Comment on above: Result Comment: mL/m in/1.73m2 CKD-EPI Creatinine Equation (2020) Performed By: #### L 500.2500, L100.0100 #### [facility] [address] [place], [address] Globulin (S) [Mass/Vol] 2.3 g/dL Normal 2.2-4.2 [facility] Comment on above: Performed By: #### L 500.2500, L100.0100 #### [facility] [address] [place], [address] Glucose [Mass/Vol] 142 mg/dL High 70-99 [facility] Comment on above: Performed By: #### L 500.2500, L100.0100 #### [facility] [address] [place], [address] Potassium [Moles/Vol] 3.3 mmol/L Normal 3.3-5.1 [facility] Comment on above: Performed By: #### L 500.2500, L100.0100 #### [facility] [address] [place], [address] Sodium [Moles/Vol] 138 mmol/L Normal 133-145 [facility] Comment on above: Performed By: #### L 500.2500, L100.0100 #### [facility] [address] [place], [address] T PROT 5.3 g/dL Low 5.9-8.4 [facility] Comment on above: Performed By: #### L 500.2500, L100.0100 #### [facility] [address] [place], [address] Urea nitrogen [Mass/Vol] 18 mg/dL Normal 4-19 [facility] Comment on above: Performed By: #### L 500.2500, L100.0100 #### [facility] [address] [place], [address] EGD Reporton 08-07-[address] [facility] Medical Records Department [address] [place] [address] EGD Report MR#: [id number] Acct: [id number] Name: LAINE GARCIA Rep #: [id number] : 1955 69 From: Betito Avendano DO PCP: Dr. Dante Gurrola MD Status:ADM IN Patient Name: Laine Garcia Procedure Date: 08/07/2024 4:37 PM Date of : 1955 Age: 69 Procedure: Upper GI endoscopy Indications: Epigastric abdominal pain, Active gastrointestinal bleeding Providers: Betito Avendano DO Medicines: Monitored Anesthesia Care Patient Profile: This is a 69 year old male. Refer to note in patient chart for documentation of history and physical. Patient has symptoms of acute epigastric abdominal pain. Complications: No immediate complications. Procedure: Pre-Anesthesia Assessment: - Prior to the procedure, a History and Physical was performed, and patient medications and allergies were reviewed. The patient is competent. The risks and benefits of the procedure and the sedation options and risks were discussed with the patient. All questions were answered and informed consent was obtained. Patient identification and proposed procedure were verified by the physician in the pre-procedure area. Mental Status Examination: alert and oriented. Airway Examination: normal oropharyngeal airway and neck mobility. Respiratory Examination: clear to auscultation. CV Examination: normal. Prophylactic Antibiotics: The patient does not require prophylactic antibiotics. Prior Anticoagulants: The patient has taken no anticoagulant or antiplatelet agents. ASA Grade Assessment: III - A patient with severe systemic disease. After reviewing the risks and benefits, the patient was deemed in satisfactory condition to undergo the procedure. The anesthesia plan was to use monitored anesthesia care (MAC). Immediately prior to administration of medications, the patient was re-assessed for adequacy to receive sedatives. The heart rate, respiratory rate, oxygen saturations, blood pressure, adequacy of pulmonary ventilation, and response to care were monitored throughout the procedure. The physical status of the patient was re-assessed after the procedure. After obtaining informed consent, the endoscope was passed under direct vision. Throughout the procedure, the patient's blood pressure, pulse, and oxygen saturations were monitored continuously. The Endoscope was introduced through the mouth, and advanced to the third part of the duodenum. Small bowel enteroscopy was deemed necessary. The upper GI endoscopy was accomplished without difficulty. The patient tolerated the procedure well. Scope In: 5:11:04 PM Scope Out: 5:53:14 PM Total Procedure Duration Time 0 hours 42 minutes 10 seconds Findings: The examined esophagus was normal. The entire examined stomach was normal. Many oozing cratered duodenal ulcers with a visible vessel were found in the duodenal bulb and in the first portion of the duodenum. The largest lesion was 30 mm in largest dimension. Area was successfully injected with 10 mL of a 0.1 mg/mL solution of epinephrine for drug delivery. Coagulation for hemostasis using argon plasma at 0.7 liters/minute and 20 river was successful. Estimated blood loss was minimal. This was stented with a 22 mm x 9 cm WallFlex stent under fluoroscopic guidance. Estimated blood loss was minimal. For hemostasis, five hemostatic clips were successfully placed. Clip conservation coordinator: [place]. There was no bleeding at the end of the procedure. Biopsies were taken with a cold forceps for histology. Verification of patient identification for the specimen was done. Estimated blood loss was minimal. Impression: - Normal esophagus. - Normal stomach. - Oozing duodenal ulcers with a visible vessel. Injected. Treated with argon plasma coagulation (APC). Prosthesis placed. Clips were placed. Clip conservation coordinator: [place]. - No specimens collected. Recommendation: - Return patient to ICU for ongoing care. - NPO. - Continue present medications. - Await pathology results. Procedure Code(s): --- Professional --- 00697, Small intestinal endoscopy, enteroscopy beyond second portion of duodenum, not including ileum; with transendoscopic stent placement (includes predilation) 12254, 59, Small intestinal endoscopy, enteroscopy beyond second portion of duodenum, not including ileum; with control of bleeding (eg, injection, bipolar cautery, unipolar cautery, laser, heater probe, stapler, plasma executive kitchen manager) 21113, 51, Small intestinal endoscopy, enteroscopy beyond second portion of duodenum, not including ileum; with biopsy, single or multiple 65516, 26, Intraluminal dilation of strictures and/or obstructions (eg, esophagus), radiological supervision and interpretation 99423, Unlisted procedure (more content not included)... Normal [facility] Fluoroscopy 1 Hr or Lesson 0 08-07-2024 [address] [facility] Imaging Services [address] [place] [id number] Fluoroscopy 1 Hr or Less MR#: [id number] Acct: [id number] Name: LAINE GARCIA Rep #: [id number] : 1955 M 69 From: Teddy bustamante MD PCP: Dr. Dante Gurrola MD Status: DIS IN Study: Fluoroscopy 1 Hr or Less Date of Exam: 5 Exam# [id number] Ordering Dr: Betito Avendano DO PROCEDURE: FLUOROSCOPY 1 HR OR LESS 08/07/2024 REASON FOR EXAM: Duodenal stenting. TECHNIQUE: Desktop Publishing Operator performed stenting of the duodenum. 3.3 seconds of fluoroscopy. 0.74 mGy. COMPARISON: None FINDINGS: Intraoperative fluoroscopic imaging provided for duodenal stenting. RAD/Fluoroscopy 1 Hr or Less IMPRESSION: Intraoperative fluoroscopic imaging provided for duodenal stenting. Reading Location: [id number] CC: Dr. Dante Gurrola MD; Betito Avendano DO Acidizer Water Well: Signed Normal [facility] Immunohistochemical Stainson 08-07-2024 Immunohistochemical Stains ---- Patient Age/Sex Location Account Attending Physician ---- LAINE GARCIA 69/M [facility] [id number] Dr. Brandie Spears DO ---- Specimen: [id number] Received: 08/07/24 Status: HAYDER Burrell Num: [id number] Spec Type: EGD BIOPSY Subm Yin Avendano DO HEADER OPERATION: EGD with clip placement, hemostasis and biopsy PRE-OP DIAGNOSIS: Duodenal ulcer, abdominal pain, orthostatic hypotension TISSUE SUBMITTED: A- Duodenal ulcer biopsy ---- MICROSCOPIC DIAGNOSIS A. Small bowel, duodenum, "ulcer", biopsy: * Ulceration with acute inflammation, Primitivo gland hyperplasia, Paneth cell metaplasia, dilated lacteal, and fibrinopurulent debris. * Gastric mucin cell metaplasia. * IHC for H pylori is pending and will be reported in an addendum. * No evidence of neoplasia is observed in these sections - see note. * Note: A separate fragment of necrotic mucosa favored to represent gastric-type mucosa is also noted. The specific origin of this fragment is unknown; it could represent gastric metaplasia or could be a contaminant from the stomach. MICROSCOPIC DESCRIPTION Slides are reviewed. GROSS DESCRIPTION A. Received in formalin in a container labeled with the patient's name, date of , and duodenal ulcer biopsy" are multiple pavon-pink fragments of mucosal tissue measuring 0.8 x 0.7 x 0.2 cm in aggregate. Submitted in toto in A1. [facility] 08-08-2024 CPT:25863, 51100 ---- ADDENDUM Addendum 1 Entered: 08/15/24-8909 This addendum is to report the result of the IHC stain: IHC is negative for H pylori organisms. All matched controls reacted appropriately. ---- Patient Age/Sex Location Account Attending Physician ---- LAINE GARCIA 69/M [facility] [id number] Dr. Brandie Spears, ---- ADDENDUM (Continued) These tests were developed and their performance characteristics determined by [facility]. They may not have been cleared or approved by the U.S. Food and Drug Administration. The FDA has determined that such clearance or approval is not necessary.??? The above immunohistochemical/du alISH???markers are ordered and reviewed by the Pathologist. Addendum Signed (signature on file) Dr. Lizzy Schumacher MD 08/15/24 1540 ---- ---- Patient Age/Sex Location Account Attending Physician ---- LAINE GARCIA 69/M [facility] [id number] Dr. Brandie Spears, DO ---- Signed (signature on file) Dr. Lizzy Schumacher MD 08/15/24 1004 ---- Normal [facility] Comment on above: Performed By: #### P ERNIE GRESHAM ####[facility] [id number] [facility]. [place], [place], [id number] International normalized rat io (INR) calculationOrdered By: Artemio Winchester on 08-07-2024 INR Coag (Bld) [Relative time] 1.3 {INR} [facility] MR/POSTOP.ANEon 08-07-2024 MR/POSTOP.[facility] Medical Records Department [address] [place] [address] Anesthesia Postop Eval I 08/07/24 1853 MR#: [id number] Acct: [id number] Name: LAINE GARCIA Rep #: [id number] : 1955 69 From: Artemio Winchester MD PCP: Dr. Dante Gurrola MD Status:ADM IN Y Race: C Location: [place] [id number] Anesthesia: Postop Eval I Current Vital Signs Temperature: 99.6 F Pulse Rate: 86 Blood Pressure: 141/93 Respiratory Rate: 18 Pulse Ox: 92 Oxygen Delivery Method: Nasal Cannula Oxygen Flow Rate (L/min): 6 Assessment Airway patent: Yes Spontaneous unlabored respirations: Yes Mental status: Awake nausea: No Vomiting: No Anesthesia Complication: No Fluid Hydration Crystalloid volume administer (ml): 1,000 Total IV fluid infused: 1,000 Progress Note Post-operative progress note: The patient's abdomen was distended upon completion of the procedure, and extremely hard with almost no ability to push the belly in. We obtained an abdominal x-ray which showed a distended abdomen. An NG was placed by Dr. Avendano which allowed the belly to be less distended. Throughout this, the patient's vitals remained stable, although for ease of the patient, 2 mg versed and 100 mcg fentanyl were given. The patient is stable for discharge to the CT scanner, and will be accepted by the floor upon completion. The patient is stable for discharge from PACU at this time. General surgery was consulted by Dr. Avendano during this time. Anesthesia remains available for any intervention needed. Anesthesia document: Postop Eval 1 completed: Yes 08/07/241856 Date Artemio Winchester MD Cosigner Signature: Date CC: Signed Normal [facility] MR/[id number] 08-07-2024 [facility] Medical Records Department [address] [place] [address] Anesthesia Postop Eval II 08/07/241856 MR#: [id number] Acct: [id number] Name: LAINE GARCIA Rep #: [id number] : 1955 69 From: Artemio Winchester MD PCP: Dr. Dante Gurrola MD Status:ADM IN Y Race: C Location: AL3 [id number] Anesthesia Postop Eval I Sum Postop Eval Completion status Anesthesia document: Postop Eval 1 completed: Yes Anesthesia Postop Eval I Summary Anesthesia Postop Eval I Summary: Anesthesia Postop Eval I: Assessment Summary Airway patent Yes 08/07/24 18:57 Spontaneous unlabored Yes 08/07/24 18:57 respirations Mental status Awake 08/07/24 18:57 nausea No 08/07/24 18:57 Vomiting No 08/07/24 18:57 Anesthesia Postop Eval I: Fluid Summary Crystalloid volume administer 1,000 08/07/24 18:57 (ml) Colloids volume administered ( ml) Blood Product volume administered (ml) Total IV fluid infused 1,000 08/07/24 18:57 Anesthesia Postop Eval I: Summary Notes Anesthesia Complication No 08/07/24 18:57 Anesthesia Complication Comment: Post-operative progress note The patient's 08/07/24 18:57 abdomen was distended upon completion of the procedure, and extremely hard with almost no ability to push the belly in. We obtained an abdominal x-ray which showed a distended abdomen. An NG was placed by Dr. Avendano which allowed the belly to be less distended. Throughout this, the patient's vitals remained stable, although for ease of the patient, 2 mg versed and 100 mcg fentanyl were given. The patient is stable for discharge to the CT scanner, and will be accepted by the floor upon completion. The patient is stable for discharge from PACU at this time . General surgery was consulted by Dr. Avendano during this time. Anesthesia remains available for any intervention needed. Anesthesia: Postop Eval II Evaluation Mental status: Awake Pain Level: 3 nausea: No Vomiting: No Progress Note Post-operative progress note: The patient's abdomen was distended upon completion of the procedure, and extremely hard with almost no ability to push the belly in. We obtained an abdominal x-ray which showed a distended abdomen. An NG was placed by Dr. Avendano which allowed the belly to be less distended. Throughout this, the patient's vitals remained stable, although for ease of the patient, 2 mg versed and 100 mcg fentanyl were given. The patient is stable for discharge to the CT scanner, and will be accepted by the floor upon completion. The patient is stable for discharge from PACU at this time. General surgery was consulted by Dr. Avendano during this time. Anesthesia remains available for any intervention needed. The patient will be going to the CT scanner at this time. Complications Anesthesia Complication: No 08/07/248 Date Artemio Winchester MD Cosigner Signature: Date CC: Signed [facility] [facility] Timeon 08-07-2024 aPTT Coag (Bld) [Time] 33.7 s Normal 24.1-36.2 [facility] Comment on above: Performed By: #### L 500.2500, L100.0100 #### [facility] [address] [place], [address] Prothrombin Time w/INRon INR Coag (PPP) [Relative time] 1.3 {INR} Normal [facility] Comment on above: Performed By: #### L 500.2500, L100.0100 #### [facility] [address] [place], [address] PT Coag (PPP) [Time] 16.0 s High 11.7-14.9 [facility] Comment on above: Performed By: #### L 500.2500, L100.0100 #### [facility] [address] [place], [address] Prothrombin timeOrdered By: Artemio Winchester on 08-07-2024 PT Coag (PPP) [Time] 16.0 s High 11.7-14.9 [facility] Surgery Specimen Level Jose Luis 08-07-2024 Surgery Specimen Level IV ---- Patient Age/Sex Location Account Attending Physician ---- LAINE GARCIA 69/M [facility] [id number] Dr. Brandie Spears DO ---- Specimen: [id number] Received: 08/07/24 Status: HAYDER Burrell Num: [id number] Spec Type: EGD BIOPSY Subm Dr: Betito Avendano DO HEADER OPERATION: EGD with clip placement, hemostasis and biopsy PRE-OP DIAGNOSIS: Duodenal ulcer, abdominal pain, orthostatic hypotension TISSUE SUBMITTED: A- Duodenal ulcer biopsy ---- MICROSCOPIC DIAGNOSIS A. Small bowel, duodenum, "ulcer", biopsy: * Ulceration with acute inflammation, Primitivo gland hyperplasia, Paneth cell metaplasia, dilated lacteal, and fibrinopurulent debris. * Gastric mucin cell metaplasia. * IHC for H pylori is pending and will be reported in an addendum. * No evidence of neoplasia is observed in these sections - see note. * Note: A separate fragment of necrotic mucosa favored to represent gastric-type mucosa is also noted. The specific origin of this fragment is unknown; it could represent gastric metaplasia or could be a contaminant from the stomach. MICROSCOPIC DESCRIPTION Slides are reviewed. GROSS DESCRIPTION A. Received in formalin in a container labeled with the patient's name, date of , and duodenal ulcer biopsy" are multiple pavon-pink fragments of mucosal tissue measuring 0.8 x 0.7 x 0.2 cm in aggregate. Submitted in toto in A1. [facility] 08-08-2024 CPT:33622, 47794 ---- Patient Age/Sex Location Account Attending Physician ---- LAINE GARCIA/Julius [facility] [id number] Dr. Brandie Spears DO ---- Signed (signature on file) Dr. Lizzy Schumacher MD 08/15/24 1004 ---- Normal [facility] Comment on above: Performed By: #### ERNIE OWUSU ####[facility] [address] [place], [place], [address] BRCon 08-06-2024 RC Normal [facility] Comment on above: Result Comment: [id number] OP RC TRANSFUSED 08/07/24 0502 [id number] OP RC TRANSFUSED 08/07/24 0153 Performed By: #### Rio LOCKETT BTS ####[facility] [address] [place], [address] Result Comment: [id number] OP RC TRANSFUSED 08/06/24 2238 Performed By: #### L 500.2500, L100.0100 #### [facility] [address] [place], [address] Basic Metabolic Profile (BMP )on 08-06-2024 BUN/CRE 42.7 RATIO High 10-20 [facility] Comment on above: Performed By: #### L 500.2500, L100.0100 ####[facility] [address] [place], [place], [address] Calcium [Mass/Vol] 7.5 mg/dL Low 7.6-11.0 [facility] Comment on above: Performed By: #### L 500.2500, L100.0100 ####[facility] [address] [place], [address] Chloride [Moles/Vol] 110 mmol/L High 98-108 [facility] Comment on above: Performed By: #### L 500.2500, L100.0100 ####[facility] [address] [place], [address] CO2 [Moles/Vol] 20.9 mmol/L Low 21.0-32.0 [facility] Comment on above: Performed By: #### L 500.2500, L100.0100 ####[facility] [address] [place], [address] Creatinine [Mass/Vol] 0.67 mg/dL Low 0.70-1.20 [facility] Comment on above: Performed By: #### L 500.2500, L100.0100 ####[facility] [address] [place], [address] ECRCL 88.72 ml/min Normal 50-250 [facility] Comment on above: Performed By: #### L 500.2500, L100.0100 ####[facility] [address] [place], [address] GAP 9 Normal 5-15 [facility] Comment on above: Performed By: #### L 500.2500, L100.0100 ####[facility] [address] [place], [address] GFR/1.73 sq M.predicted among non-blacks MDRD (S/P/Bld) [Vol rate/Area] 101 mL/min/{1.73_m2} Normal >60 [facility] Comment on above: Result Comment: mL/m in/1.73m2 CKD-EPI Creatinine Equation (2020) Performed By: #### L 500.2500, L100.0100 ####[facility] [address] [place], [address] Glucose [Mass/Vol] 137 mg/dL High 70-99 [facility] Comment on above: Performed By: #### L 500.2500, L100.0100 ####[facility] [address] [place], [address] Potassium [Moles/Vol] 3.4 mmol/L Normal 3.3-5.1 [facility] Comment on above: Performed By: #### L 500.2500, L100.0100 ####[facility] [address] [place], [address] Sodium [Moles/Vol] 140 mmol/L Normal 133-145 [facility] Comment on above: Performed By: #### L 500.2500, L100.0100 ####[facility] [address] [place], [address] Urea nitrogen [Mass/Vol] 28 mg/dL High 4-19 [facility] Comment on above: Performed By: #### L 500.2500, L100.0100 ####[facility] [address] [place], [address] Blood manual differential co mment interpretation (narrative result)Ordered By: Derrick Yadav on 08-06-2024 Manual differential comment Ramón (Bld) [Interp] SCANNED [facility] CBC W/Diff, Automatedon 05-0 SMEAR COMMENT SCANNED Normal [facility] Comment on above: Performed By: #### L 500.2500, L100.0100 ####[facility] [address] [place], [address] HH, Hemoglobin AND Hematocri ton 08-06-2024 Hematocrit (Bld) [Volume fraction] 20.2 % Low 40-54 [facility] Comment on above: Performed By: #### L 400.0001 #### [facility] [address] [place], [address] Hemoglobin (Bld) [Mass/Vol] 6.7 g/dL Low 13.0-16.5 [facility] Comment on above: Performed By: #### L 400.0001 #### [facility] [address] [place], [address] Type AND Screenon 08-06-2024 ABO and Rh group Nom (Bld) Blood group O Rh(D) positive Normal [facility] Comment on above: Order Comment: CMV N EG? NIs there a >20% drop in pt's BP? NIs the pt's CVP (central venous pressure) <3 cm/H2O? NIs the EBL >/= 1000ml in adults or >/= 12ml/kg in children?YIs there an orthostatic change in pt's BP(SBP drop>10mmHg)? YIs pt's HR > 100 bpm? YReason for Ordering Blood: AcuteAre the blood/blood products to be transfused? NIs the patient having/had surgery? YType [id number] Performed By: #### B RC, BTS ####[facility] [address] [place], [address] 12 Lead EKGon 08-05-[address] [facility] Cardiovascular Services [address] [place] [address] 12 Lead EKG 08/05/24 1331 MR#: [id number] Acct: [id number] Name: LAINE GARCIA Rep #: [id number] : 1955 69 From: Leona Vega MD Attending Dr: Dr. Brandie Spears, DO Status: DIS I N Ordering Dr: Wally Valdez MD Date: 08/05/24 Location: [facility] Sex: M C Admitted: 08/05/24 Test Reason : DIZZINESS/SYNCOPE Blood Pressure : */* mmHG Vent. Rate : 62 BPM Atrial Rate : 62 BPM P-R Int : 144 ms QRS Dur : 96 ms QT Int : 394 ms P-R-T Axes : 58 -16 -18 degrees QTcB Int : 399 ms Normal sinus rhythm Incomplete right bundle branch block Minimal voltage criteria for LVH, may be normal variant ( R in aVL ) Nonspecific ST abnormality Abnormal ECG Confirmed by Leona Vega ([id number]), deputy editor in chief RACHANA ASTORGA ([id number]) on 08/11/2024 12:55:07 PM Referred By: AR Confirmed By: Leona Vega 08/11/24 1255 Date Leona Vega MD CC: Dr. Wally Valdez MD; Dr. Dante Gurrola MD; Dr. Brandie Spears, DO Signed Normal [facility] Abdomen/Pelvis W IV Cont ONL Yon 08-05-2024 Abdomen/Pelvis W IV Cont ONLY [facility] Imaging Services [address] [place] [address] Abdomen/Pelvis W IV Cont ONLY MR#: [id number] Acct: [id number] Name: LAINE GARCIA Ned Rep #: [id number] : 1955 M 69 From: Domenica Smiley nd, MD PCP: Rachana Birmingham, WORD PROCESSING OPERATOR-C Status: REG ER Study: Abdomen/Pelvis W IV Cont ONLY Date of Exam: Exam# [id number] Ordering Dr: Wally Valdez MD PROCEDURE: ABDOMEN/PELVIS W IV CONT ONLY 08/05/2024 REASON FOR EXAM: ABDOMINAL PAIN TECHNIQUE: Abdomen and pelvis CT with intravenous contrast. Coronal and Sagittal reconstruction series were provided. PATIENT PREPARATION: Per protocol ORAL CONTRAST TYPE: None. CONTRAST: Isovue 370 VOLUME: 100 mL One or more dose reduction techniques were used (e.g., Automated exposure control, adjustment of the mA and/or kV according to patient size, use of iterative reconstruction technique. RADIATION DOSE SUMMARY: CTDlvol: 40 mGy DLP: 1000 mGycm COMPARISON: CT abdomen pelvis 05/06/2024. FINDINGS: Lung bases: Bibasilar atelectasis. The heart is normal in size. Liver: The liver is normal in size with tiny hepatic cysts and additional hypodensities. The major portal veins are patent. No biliary ductal dilation. Gallbladder: No radiopaque stones within the gallbladder. Spleen: Normal size. Pancreas: Unremarkable. Adrenals: No adrenal mass. Kidneys: Right renal cysts and left parapelvic cysts. No hydronephrosis or nephrolithiasis. Bladder: Distended and unremarkable. Reproductive Organs: Unremarkable. Bowel: Punctate gas within the D1 segment of the duodenum with mild duodenal thickening (series 2, image 32). The bowel loops are nondilated. No ascites or pneumoperitoneum. Normal appendix. Lymph nodes: No suspicious lymph node enlargement. Vasculature: Mild mixed atherosclerotic plaque throughout the aortoiliac vessels. Bones: Thoracolumbar spondylosis with mild multilevel vertebral body height loss. Severe degenerative disc disease at L5-S1, unchanged. CT/Abdomen/Pelvis W IV Cont ONLY IMPRESSION: 1. Punctate gas within the proximal duodenum with mild duodenal thickening, which is nonspecific and may represent duodenitis or non perforated duodenal ulcer. 2. Otherwise unremarkable CT abdomen pelvis. Reading Location: [facility] CC: NERI Birmingham; Dr. Wally Valdez MD Acidizer Water Well: Signed Normal [facility] Basic Metabolic Profile (BMP )on 08-05-2024 BUN/CRE 62.8 RATIO High 10-20 [facility] Comment on above: Performed By: #### L 500.2500, L100.0100 #### [facility] [address] [place], [address] Calcium [Mass/Vol] 8.3 mg/dL Normal 7.6-11.0 [facility] Comment on above: Performed By: #### L 500.2500, L100.0100 #### [facility] [address] [place], [address] Chloride [Moles/Vol] 107 mmol/L Normal 98-108 [facility] Comment on above: Performed By: #### L 500.2500, L100.0100 #### [facility] [address] [place], [address] CO2 [Moles/Vol] 23.8 mmol/L Normal 21.0-32.0 [facility] Comment on above: Performed By: #### L 500.2500, L100.0100 #### [facility] [address] [place], [address] Creatinine [Mass/Vol] 0.76 mg/dL Normal 0.70-1.20 [facility] Comment on above: Performed By: #### L 500.2500, L100.0100 #### [facility] [address] [place], [address] ECRCL 91.51 ml/min Normal 50-250 [facility] Comment on above: Performed By: #### L 500.2500, L100.0100 #### [facility] [address] [place], [address] GAP 7 Normal 5-15 [facility] Comment on above: Performed By: #### L 500.2500, L100.0100 #### [facility] [address] [place], [address] GFR/1.73 sq M.predicted among non-blacks MDRD (S/P/Bld) [Vol rate/Area] 97 mL/min/{1.73_m2} Normal >60 [facility] Comment on above: Result Comment: mL/m in/1.73m2 CKD-EPI Creatinine Equation (2020) Performed By: #### L 500.2500, L100.0100 #### [facility] [address] [place], [address] Glucose [Mass/Vol] 180 mg/dL High 70-99 [facility] Comment on above: Performed By: #### L 500.2500, L100.0100 #### [facility] [address] [place], [address] Potassium [Moles/Vol] 4.1 mmol/L Normal 3.3-5.1 [facility] Comment on above: Performed By: #### L 500.2500, L100.0100 #### [facility] [address] [place], [address] Sodium [Moles/Vol] 138 mmol/L Normal 133-145 [facility] Comment on above: Performed By: #### L 500.2500, L100.0100 #### [facility] [address] [place], [address] Urea nitrogen [Mass/Vol] 48 mg/dL High 4-19 [facility] Comment on above: Performed By: #### L 500.2500, L100.0100 #### [facility] [address] [place], [address] Bilirubin Test strip Ql (U)O rdered By: Wally Valdez on 08-05-2024 Bilirubin Ql (U) Negative Negative [facility] CBC W/Diff, Automatedon 05-0 Absolute Lymph 0.76 X10 3/uL Low 0.83-4.51 [facility] Comment on above: Performed By: #### L 500.2500, L100.0100 #### [facility] [address] [place], [address] Absolute Neut 10.8 X10 3/uL High 2.0-7.7 [facility] Comment on above: Performed By: #### L 500.2500, L100.0100 #### [facility] [address] [place], [address] Basophils/100 WBC (Bld) 0.3 % Normal 0-[address] [facility] Comment on above: Performed By: #### L 500.2500, L100.0100 #### [facility] [address] [place], [address] Eosinophils/100 WBC (Bld) 0.2 % Normal 0-5 [facility] Comment on above: Performed By: #### L 500.2500, L100.0100 #### [facility] [address] [place], [address] Erythrocyte distribution width (RBC) [Ratio] 14.4 % Normal 11.6-14.6 [facility] Comment on above: Performed By: #### L 500.2500, L100.0100 #### [facility] [address] [place], [address] Hematocrit (Bld) [Volume fraction] 26.8 % Low 40-54 [facility] Comment on above: Performed By: #### L 500.2500, L100.0100 #### [facility] [address] [place], [address] Hemoglobin (Bld) [Mass/Vol] 8.9 g/dL Low 13.0-16.5 [facility] Comment on above: Performed By: #### L 500.2500, L100.0100 #### [facility] [address] [place], [address] IG% 0.700 Normal 0.0-0.9 [facility] Comment on above: Result Comment: IG% - Immature Granulocytes (promyelocytes, myelocytes and metamyelocytes) > 1% indicates that a LEFT SHIFT is Present. Performed By: #### L 500.2500, L100.0100 #### [facility] [address] [place], [address] Lymphocytes/100 WBC (Bld) 6.3 % Low 19-41 [facility] Comment on above: Performed By: #### L 500.2500, L100.0100 #### [facility] [address] [place], [address] MCH (RBC) [Entitic mass] 30.2 pg Normal 27.0-32.0 [facility] Comment on above: Performed By: #### L 500.2500, L100.0100 #### [facility] [address] [place], [address] MCHC (RBC) [Mass/Vol] 33.2 g/dL Normal 32-36 [facility] Comment on above: Performed By: #### L 500.2500, L100.0100 #### [facility] [address] [place], [address] MCV (RBC) [Entitic vol] 90.8 fL Normal 80-[address] [facility] Comment on above: Performed By: #### L 500.2500, L100.0100 #### [facility] [address] [place], [address] Monocytes/100 WBC (Bld) 3.2 % Normal 0-10 [facility] Comment on above: Performed By: #### L 500.2500, L100.0100 #### [facility] [address] [place], [address] Neutrophils/100 WBC (Bld) 89.3 % High 47-70 [facility] Comment on above: Performed By: #### L 500.2500, L100.0100 #### [facility] [address] [place], [address] Nucleated RBC (Bld) [#/Vol] 0 10*3/uL Normal 0-5 [facility] Comment on above: Performed By: #### L 500.2500, L100.0100 #### [facility] [address] [place], [address] Platelet mean volume (Bld) [Entitic vol] 9.7 fL Normal 6.2-12.0 [facility] Comment on above: Performed By: #### L 500.2500, L100.0100 #### [facility] [address] [place], [address] Platelets (Bld) [#/Vol] 281 10*3/uL Normal 150-450 [facility] Comment on above: Performed By: #### L 500.2500, L100.0100 #### [facility] [address] [place], [address] RBC (Bld) [#/Vol] 2.95 10*6/uL Low 4.6-6.2 [facility] Comment on above: Performed By: #### L 500.2500, L100.0100 #### [facility] [address] [place], [address] RDW SD 47.8 fl High 35.1-43.9 [facility] Comment on above: Performed By: #### L 500.2500, L100.0100 #### [facility] [address] [place], [address] WBC (Bld) [#/Vol] 12.1 10*3/uL High 4.4-11.0 [facility] Comment on above: Performed By: #### L 500.2500, L100.0100 #### [facility] [address] [place] [place], [address] EGD Reporton 08-05-[address] [facility] Medical Records Department [address] [place] [address] EGD Report MR#: [id number] Acct: [id number] Name: LAINE GARCIA Rep #: [id number] : 1955 69 From: Betito Avendano DO PCP: Rachana Birmingham NP-C Status:ADM IN Patient Name: Laine Garcia Procedure Date: 08/05/2024 5:18 PM Date of : 1955 Age: 69 Procedure: Upper GI endoscopy Indications: Epigastric abdominal pain, Melena Providers: Betito Avendano DO Medicines: Monitored Anesthesia Care Patient Profile: This is a 69 year old male. Refer to note in patient chart for documentation of history and physical. Patient has symptoms of acute epigastric abdominal pain. Complications: No immediate complications. Procedure: Pre-Anesthesia Assessment: - Prior to the procedure, a History and Physical was performed, and patient medications and allergies were reviewed. The patient is competent. The risks and benefits of the procedure and the sedation options and risks were discussed with the patient. All questions were answered and informed consent was obtained. Patient identification and proposed procedure were verified by the physician in the pre-procedure area. Mental Status Examination: alert and oriented. Airway Examination: normal oropharyngeal airway and neck mobility. Respiratory Examination: clear to auscultation. CV Examination: normal. Prophylactic Antibiotics: The patient does not require prophylactic antibiotics. Prior Anticoagulants: The patient has taken no anticoagulant or antiplatelet agents except for NSAID medication. ASA Grade Assessment: II - A patient with mild systemic disease. After reviewing the risks and benefits, the patient was deemed in satisfactory condition to undergo the procedure. The anesthesia plan was to use monitored anesthesia care (MAC). Immediately prior to administration of medications, the patient was re-assessed for adequacy to receive sedatives. The heart rate, respiratory rate, oxygen saturations, blood pressure, adequacy of pulmonary ventilation, and response to care were monitored throughout the procedure. The physical status of the patient was re-assessed after the procedure. After obtaining informed consent, the endoscope was passed under direct vision. Throughout the procedure, the patient's blood pressure, pulse, and oxygen saturations were monitored continuously. The Endoscope was introduced through the mouth, and advanced to the third part of the duodenum. Small bowel enteroscopy was deemed necessary. The upper GI endoscopy was accomplished without difficulty. The patient tolerated the procedure well. Scope In: 5:58:25 PM Scope Out: 6:26:30 PM Total Procedure Duration Time 0 hours 28 minutes 5 seconds Findings: The examined esophagus was normal. No gross lesions were noted in the entire examined stomach. Five spurting cratered duodenal ulcers with a visible vessel were found in the duodenal bulb and in the first portion of the duodenum. The largest lesion was 30 mm in largest dimension. Area was successfully injected with 7 mL of a 0.1 mg/mL solution of epinephrine for drug delivery. Coagulation for hemostasis using argon plasma at 0.8 liters/minute and 50 river was successful. Estimated blood loss was minimal. Two non-bleeding cratered duodenal ulcers with no stigmata of bleeding were found in the second portion of the duodenum. The largest lesion was 20 mm in largest dimension. Coagulation for destruction of remaining portion of lesion using argon plasma at 0.3 liters/minute and 20 river was successful. Coagulation for bleeding prevention using argon plasma at 0.7 liters/minute and 30 river was successful. Estimated blood loss was minimal. Impression: - Normal esophagus. - No gross lesions in the entire stomach. - Spurting duodenal ulcers with a visible vessel. Injected. Treated with argon plasma coagulation (APC). - Non-bleeding duodenal ulcers with no stigmata of bleeding. Treated with argon plasma coagulation (APC). - No specimens collected. Recommendation: - Return patient to [facility] for ongoing care. - NPO except ice chips - Continue present medications. - No NSAIDs - Possible stent placement in the duodenum on 08/07/2024 Procedure Code(s): --- Professional --- 71924, Small intestinal endoscopy, enteroscopy beyond second portion of duodenum, not including ileum; with ablation of tumor(s), polyp(s), or other lesion(s) not amenable to removal by hot biopsy forceps, bipolar cautery or snare technique 29428, 59,51, Small intestinal endoscopy, enteroscopy beyond second portion of duodenum, not including ileum; with control of bleeding (eg, injection, bipolar cautery, unipolar cautery, laser, heater probe, stapler, plasma executive kitchen manager) [address], Unlisted procedure, small intest (more content not included)... Normal [facility] Emergency Department Summary on 08-05-2024 Emergency Department Summary [facility] Medical Records Department [address] [place] [address] Emergency Department Summary 08/05/24 MR#: [id number] Acct: [id number] Name: JOSELAINE Ned Rep #: [id number] : 1955 69 From: Wally Valdez MD PCP: Rachana Birmingham, WORD PROCESSING OPERATOR-C Status:REG ER Location: ED HPI History of Present Illness Chief Complaint: Abd Pain Narrative Narrative: 69-year-old male states he has been having problems with abdominal pain for the last few months. This morning, he started having abdominal pain again. It felt more like cramping. 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 His states he looked pale all morning. He denies any chest pain or shortness of breath, but states that he was walking up his lawn, when he felt weak in the knees and collapsed. He was trying to get some home remedy to help with his abdominal cramping. 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 He was ordered by EMS that he had passed out twice within 5 minutes of each other for a very brief period of time. Patient states his abdominal cramping is improving, but he feels mildly weak. He states he has not passed out previously, although his problem list states that he has had syncope in the past. PFSH PFS Home Medications ???Medication ???Instructions ???Recorded ???Last Taken ???Type aspirin 81 mg chewable tablet 81 mg PO DAILY heart health 08/05/24 History multivitamin 1 tab PO DAILY supplement 01/22/20 08/05/24 History omega-3 fatty acids 1,000 mg 2,000 mg PO BID supplement 0 08/05/24 History capsule turmeric 450 mg-turmeric root 1 cap PO DAILY supplement 01/22/20 08/05/24 History extract 50 mg capsule polyethylene glycol 3350 17 17 g PO DAILY PRN laxative effect 08/05/24 08/02/24 History gram/dose oral powder (ClearLax) psyllium husk 0.4 gram capsule 0.8 g PO BID 08/05/24 08/05/24 His tory (Daily Fiber) Allergy/AdvReac Type Severity Reaction Status Date / Time Penicillins AdvReac PT UNABLE Verified 08/05/24 13:12 TO RESPOND-NEEDS F/U Family History Father Myocardial infarction Mother CVA (cerebral vascular accident) Surgical History H/O shoulder surgery History of repair of hiatal hernia Social History Smoking Status: Never smoker alcohol intake: never ROS ROS ED ROS Narrative Constitutional: No fever, no chills. Cardiovascular: No chest pain. No palpitations. No pedal edema. Respiratory: No cough, no shortness of breath. Abdominal: Positive abdominal cramping abdominal pain. Positive nausea. No vomiting. Genitourinary: No dysuria. No hematuria. Musculoskeletal: No myalgias. No arthralgias. Neurologic: No headaches. No dizziness. Positive lightheadedness. 2 episodes of brief syncope within 5 minutes of each other. EXAM Physical Exam Narrative Exam Narrative: Afebrile. Vital signs noted. HEENT: Normocephalic. Atraumatic. PERRL, EOMI. Neck soft and supple. No point tenderness or step off. Cardiovascular: Regular rate and rhythm. No murmurs, rubs, or gallops appreciated. Respiratory: No tachypnea. Lungs clear to auscultation bilaterally. Gastrointestinal: Abdomen soft, nontender, with normoactive bowel sounds. No rebound or guarding. Neurological: Awake. Alert. Nonfocal, nonlateralizing. Moves all extremities. Skin: No rash. Normal color. No pallor. Musculoskeletal: No pedal edema. Full range of motion extremities. Const Vital Signs: 08/05/24 13:06 08/05/24 13:30 08/05/24 13:37 Temperature 98.8 F Temperature Source Oral Pulse Rate 74 62 Pulse Rate [Lying] 60 Pulse Rate [Sitting (for 1 minute prior to obtaining)] 62 Pulse Rate [Standing (for 1 minute prior to obtaining)] 90 Respiratory Rate 13 14 Blood Pressure 121/70 H Blood Pressure [Lying] 118/73 Blood Pressure [Sitting (for 1 minute prior to obtaining)] 126/69 H Blood Pressure [Standing (for 1 minute prior to obtaining)] 96/61 Blood Pressure Mean 87 Blood Pressure Mean [Lying] 88 Blood Pressure Mean [Sitting (for 1 minute prior to obtaining)] 88 Blood Pressure Mean [Standing (for 1 minute prior to obtaining)] 72 Pulse Ox 99 98 Oxygen Delivery Method Room Air 08/05/24 13:45 08/05/24 14:00 08/05/24 14:15 Temperature Temperature Source Pulse Rate 58 L Pulse Rate [Lying] Pulse Rate [Sitting (for 1 minute prior to obtaining)] Pulse Rate [Standing (for 1 minute prior to obtaining)] Respiratory Rate 12 Blood Pressure 123/84 H 121/75 H Blood Pressure [Lying] Blood Pressure [Sitting (for 1 minute prior to obtaining)] Blood Pressure [Standing (for 1 minute prior to obtaining)] (more content not included)... Normal [facility] H&P Exam - Hospitalist [facility] Medical Records Department [address] [place] [address] H P Exam - Hospitalist 08/05/24 1543 MR#: [id number] Acct: [id number] Name: LAINE GARCIA Rep #: [id number] : 1955 69 From: Derrick Yadav MD PCP: Rachana Birmingham, WORD PROCESSING OPERATOR-C Status:ADM IN [place] [facility] [place] HPI - General General Date of Admission: 08/05/24 HPI Narrative LAINE GARCIA, is a 69 M who presents to the hospital after 2 syncopal episodes at home and an episode of maroon-colored stools. He has been having abdominal discomfort with increasing epigastric pain over the last several months. It feels likely due to constipation. He is currently taking a daily aspirin for what he says are blood clots, he had blood clots in 2016 after surgery for a hiatal hernia and then his doctor told him to continue aspirin after his shoulder surgery repair to prevent further blood clots. CT scan today demonstrates duodenal ulcer with possible free air though is not having any significant abdominal pain at the moment. Hemoglobin did drop from 13.4 on 05/06/2024 to 8.9 today. He is otherwise hemodynamically stable and his vital signs are all stable. [facility] Medical History (Updated 08/05/24 @ 15:[address] Derrick Yadav MD) Mitral valve prolapse History of DVT (deep vein thrombosis) Home Medications ???Medication ???Instructions ???Recorded ???Last Taken ???Type aspirin 81 mg chewable tablet 81 mg PO DAILY heart health 08/05/24 History multivitamin 1 tab PO DAILY supplement 01/22/20 08/05/24 History omega-3 fatty acids 1,000 mg 2,000 mg PO BID supplement 0 08/05/24 History capsule turmeric 450 mg-turmeric root 1 cap PO DAILY supplement 01/22/20 08/05/24 History extract 50 mg capsule polyethylene glycol 3350 17 17 g PO DAILY PRN laxative effect 08/05/24 08/02/24 History gram/dose oral powder (ClearLax) psyllium husk 0.4 gram capsule 0.8 g PO BID 08/05/24 08/05/24 His tory (Daily Fiber) Allergy/AdvReac Type Severity Reaction Status Date / Time Penicillins AdvReac PT UNABLE Verified 08/05/24 13:12 TO RESPOND-NEEDS F/U Family History Father Myocardial infarction Mother CVA (cerebral vascular accident) Surgical History H/O shoulder surgery History of repair of hiatal hernia Social History Smoking Status: Never smoker alcohol intake: never ROS Constitutional Constitutional: Denies chills, fatigue, fever(s) or malaise Eyes Eyes: Denies blurry vision ENT HEENT: Denies headache(s) or nasal discharge Cardiovascular Cardiovascular: Reports syncope; Denies chest pain or dyspnea on exertion Respiratory/Chest Respiratory/Chest: Denies cough, shortness of breath at rest or shortness of breath with exertion Gastrointestinal Gastrointestinal: Reports abdominal pain and melena; Denies constipation, diarrhea, nausea or vomiting Genitourinary Genitourinary: Denies dysuria Neurologic Neurologic: Denies focal weakness, numbness or tremor(s) Psychiatric Psychiatric: Denies anxiety or depression Vital Signs Vital Signs Vital Signs: 08/05/24 13:06 08/05/24 13:30 08/05/24 13:37 Temperature 98.8 F Temperature Source Oral Pulse Rate 74 62 Pulse Rate [Lying] 60 Pulse Rate [Sitting (for 1 minute prior to obtaining)] 62 Pulse Rate [Standing (for 1 minute prior to obtaining)] 90 Respiratory Rate 13 14 Blood Pressure 121/70 H Blood Pressure [Lying] 118/73 Blood Pressure [Sitting (for 1 minute prior to obtaining)] 126/69 H Blood Pressure [Standing (for 1 minute prior to obtaining)] 96/61 Blood Pressure Mean 87 Blood Pressure Mean [Lying] 88 Blood Pressure Mean [Sitting (for 1 minute prior to obtaining)] 88 Blood Pressure Mean [Standing (for 1 minute prior to obtaining)] 72 Pulse Ox 99 98 Oxygen Delivery Method Room Air 08/05/24 13:45 08/05/24 14:00 08/05/24 14:15 Temperature Temperature Source Pulse Rate 58 L Pulse Rate [Lying] Pulse Rate [Sitting (for 1 minute prior to obtaining)] Pulse Rate [Standing (for 1 minute prior to obtaining)] Respiratory Rate 12 Blood Pressure 123/84 H 121/75 H Blood Pressure [Lying] Blood Pressure [Sitting (for 1 minute prior to obtaining)] Blood Pressure [Standing (for 1 minute prior to obtaining)] Blood Pressure Mean 96 88 Blood Pressure Mean [Lying] Blood Pressure Mean [Sitting (for 1 minute prior to obtaining)] Blood Pressure Mean [Standing (for 1 minute prior to obtaining)] Pulse Ox 99 Oxygen Delivery Method 08/05/24 14:30 08/05/24 14:45 Temperature Temperature Source Pulse Rate 61 64 Pulse Rate [L (more content not included)... Normal [facility] HH, Hemoglobin AND Hematocr iton 08-05-2024 Hematocrit (Bld) [Volume fraction] 24.6 % Low 40-54 [facility] Comment on above: Performed By: #### L 100.0600 ####[facility] [address] [place], [address] Hemoglobin (Bld) [Mass/Vol] 8.1 g/dL Low 13.0-16.5 [facility] Comment on above: Performed By: #### L 100.0600 ####[facility] [address] [place], [address] Ketones Test strip Ql (U)Ord ered By: Wally Valdez on 08-05-2024 Ketones Ql (U) 5 mg/dl High Negative [facility] MR/CON.PCM.GIon 08-05-2024 MR/CON.PCM.GI [facility] Medical Records Department [address] [place] [address] Consultation - GI 08/05/24 1732 MR#: [id number] Acct: [id number] Name: LAINE GARCIA Rep #: [id number] : 1955 69 From: Betito Avendano DO PCP: Rachana Birmingham, WORD PROCESSING OPERATOR-C Status:ADM IN [facility] H[facility] Consult Data Date of Consult: 08/05/24 HPI Narrative Reason for Consultation: GI bleed HPI Narrative: LAINE GARCIA, is a 69 M who presents 69-year-old male states he has been having problems with abdominal pain for the last few months. This morning, he started having abdominal pain again. It felt more like cramping. 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 His states he looked pale all morning. He denies any chest pain or shortness of breath, but states that he was walking up his lawn, when he felt weak in the knees and collapsed. He was trying to get some home remedy to help with his abdominal cramping. 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 He was ordered by EMS that he had passed out twice within 5 minutes of each other for a very brief period of time. Patient states his abdominal cramping is improving, but he feels mildly weak. He had a visit to the ER for severe abdominal pain on 05.06.24, had an abd/pelvis CT that showed significant stool and gas burden without signs of obstruction. He reports reduced appetite, abdominal bloating and sharp cramping when constipation is the most severe. He reports his last colonoscopy was in 2015 with a 10 year recall. His repeat today CT/Abdomen/Pelvis W IV Cont ONLY IMPRESSION: 1. Punctate gas within the proximal duodenum with mild duodenal thickening, which is nonspecific and may represent duodenitis or non perforated duodenal ulcer. [facility] Medical History History of DVT (deep vein thrombosis) Mitral valve prolapse Home Medications ???Medication ???Instructions ???Recorded ???Last Taken ???Type aspirin 81 mg chewable tablet 81 mg PO DAILY heart health 08/05/24 History multivitamin 1 tab PO DAILY supplement 01/22/20 08/05/24 History omega-3 fatty acids 1,000 mg 2,000 mg PO BID supplement 0 08/05/24 History capsule turmeric 450 mg-turmeric root 1 cap PO DAILY supplement 01/22/20 08/05/24 History extract 50 mg capsule polyethylene glycol 3350 17 17 g PO DAILY PRN laxative effect 08/05/24 08/02/24 History gram/dose oral powder (ClearLax) psyllium husk 0.4 gram capsule 0.8 g PO BID 08/05/24 08/05/24 His tory (Daily Fiber) Allergy/AdvReac Type Severity Reaction Status Date / Time Penicillins AdvReac PT UNABLE Verified 08/05/24 13:12 TO RESPOND-NEEDS F/U Family History Father Myocardial infarction Mother CVA (cerebral vascular accident) Surgical History H/O shoulder surgery History of repair of hiatal hernia Social History Smoking Status: Never smoker alcohol intake: never ROS Constitutional Constitutional: Denies chills, fatigue, fever(s) or malaise Eyes Eyes: Denies blurry vision ENT HEENT: Denies headache(s) or nasal discharge Cardiovascular Cardiovascular: Reports syncope; Denies chest pain or dyspnea on exertion Respiratory/Chest Respiratory/Chest: Denies cough, shortness of breath at rest or shortness of breath with exertion Gastrointestinal Gastrointestinal: Reports abdominal pain and melena; Denies constipation, diarrhea, nausea or vomiting Genitourinary Genitourinary: Denies dysuria Neurologic Neurologic: Denies focal weakness, numbness or tremor(s) Psychiatric Psychiatric: Denies anxiety or depression Physical Exam Const alert, oriented x3, no apparent distress and healthy appearing General Appearance: cooperative GI normal to inspection, nondistended, normoactive bowel sounds, soft to palpation, non-tender and non- distended Percussion: normal to percussion Rectal Exam: deferred Lab / Micro Data 08/05/24 12:40 08/05/24 12:40 Labs: Laboratory Results - last 24 hr 08/05/24 12:40: WBC 12.1 H, RBC 2.95 L, Hgb 8.9 L, Hct 26.8 L, MCV 90.8, MCH 30.2, MCHC 33.2, RDW Std Deviation 47.8 H, RDW Coeff of Edna 14.4, Plt Count 281, MPV 9.7, Immature Gran % (Auto) 0.700, N eut % (Auto) 89.3 H, Lymph % (Auto) 6.3 L, [place] % (Auto) 3.2, Eos % (Auto) 0.2, Baso % (Auto) 0.3, A bsolute Neuts (auto) 10.8 H, Absolute Lymphs (auto) 0.76 L, Nucleated RBC % 0, Sodium 138, Potassium 4.1, Chloride 107, Carbon Dioxide 23.8, Anion Gap 7, BUN 48 H, Creatinine 0.76, Estim Creat Clear Calc 91.51, Est GFR (MDRD) Non-Af 97, BUN/Creatinine Ratio 62.8 H, Glucose 180 H, Calcium 8.3 08/05/24 14:26 (more content not included)... Normal [facility] MR/POSTOP.ANEon 08-05-2024 MR[facility]OP.[facility] Medical Records Department [address] [place] [address] Anesthesia Postop Eval I 08/05/241844 MR#: [id number] Acct: [id number] Name: LAINE GARCIA Rep #: [id number] : 1955 69 From: Naun Murrell MD PCP: Rachana Birmingham, WORD PROCESSING OPERATOR-C Status:ADM IN Y Race: C Location: [place] [address] Anesthesia: Postop Eval I Current Vital Signs Temperature: 97.9 F Pulse Rate: 72 Blood Pressure: 144/84 Respiratory Rate: 16 Pulse Ox: 96 Oxygen Delivery Method: Room Air Assessment Airway patent: Yes Spontaneous unlabored respirations: Yes Mental status: Awake nausea: No Vomiting: No Anesthesia Complication: No Fluid Hydration Crystalloid volume administer (ml): 1,000 Total IV fluid infused: 1,000 Progress Note Anesthesia document: Postop Eval 1 completed: Yes 08/05/241844 Date Naun Ely Signature: Date CC: Signed Normal [facility] MR/[id number] 08-05-2024 MR/POSTOPAN2 [facility] Medical Records Department [address] [place] [address] Anesthesia Postop Eval II 08/05/241845 MR#: [id number] Acct: [id number] Name: LAINE GARCIA Rep #: [id number] : 1955 69 From: Naun Murrell MD PCP: Rachana Birmingham, WORD PROCESSING OPERATOR-C Status:ADM IN Y Race: C [place] [facility] [place] Anesthesia Postop Eval I Sum Postop Eval Completion status Anesthesia document: Postop Eval 1 completed: Yes Anesthesia Postop Eval I Summary Anesthesia Postop Eval I Summary: Anesthesia Postop Eval I: Assessment Summary Airway patent Yes 08/05/24 18:45 Spontaneous unlabored Yes 08/05/24 18:45 respirations Mental status Awake 08/05/24 18:45 nausea No 08/05/24 18:45 Vomiting No 08/05/24 18:45 Anesthesia Postop Eval I: Fluid Summary Crystalloid volume administer 1,000 08/05/24 18:45 (ml) Colloids volume administered ( ml) Blood Product volume administered (ml) Total IV fluid infused 1,000 08/05/24 18:45 Anesthesia Postop Eval I: Summary Notes Anesthesia Complication No 08/05/24 18:45 Anesthesia Complication Comment: Post-operative progress note Anesthesia: Postop Eval II Evaluation Mental status: Awake Pain Level: 0 nausea: No Vomiting: No 08/05/241845 Date Naun Navarreteigndevonte Signature: Date CC: Signed Normal [facility] Microscopic analysis of urin e for red blood cells (RBC)Ordered By: Wally Valdez on 08-05-2024 Microscopic analysis of urine for red blood cells (RBC) 0-5 SEEN /hpf 0-5 [facility] Mucus LM Ql (Urine sed)Order ed By: Wally Valdez on 08-05-2024 Mucus Ql (Urine sed) 0 SEEN /hpf [facility] Nitrite Test strip Ql (U)Ord ered By: Wally Valdez on 08-05-2024 Nitrite Ql (U) Negative Negative [facility] Protein Test strip Ql (U)Ord ered By: Wally Valdez on 08-05-2024 Protein Ql (U) 15 mg/dl High Negative [facility] Squamous epithelial cells de tection in urine sediment by light microscopyOrdered By: Wally Valdez on 08-05-2024 Epithelial cells.squamous LM Ql (Urine sed) 0 SEEN /hpf 0-5 [facility] Urinalysis, Completeon 08-05 BACTERIA RARE Normal None Seen [facility] Comment on above: Order Comment: CLEAN CATCH Performed By: #### L 400.0001 #### [facility] Laboratory [address] [facility] [address] RBC 0-5 SEEN Normal 0-5 [facility] Comment on above: Order Comment: CLEAN CATCH Performed By: #### L 400.0001 #### [facility] [address] [place], [address] WBC 0-5 SEEN Normal 0-5 [facility] Comment on above: Order Comment: CLEAN CATCH Performed By: #### L 400.0001 #### [facility] [address] [place], [address] EPI,SQUAMOUS 0 SEEN Normal 0-5 [facility] Comment on above: Order Comment: CLEAN CATCH Performed By: #### L 400.0001 #### [facility] [address] [place], [address] Mucus Ql (Urine sed) 0 SEEN Normal [facility] Comment on above: Order Comment: CLEAN CATCH Performed By: #### L 400.0001 #### [facility] [address] [place], [place], [address] Urine clarityOrdered By: Adelina Valdez on 08-05-2024 Clarity (U) Clear Clear [facility] Urine color determinationOrd ered By: Wally Valdez on 08-05-2024 Color (U) Yellow Yellow [facility] Urine glucose detectionOrder ed By: Wally Valdez on 08-05-2024 Glucose Ql (U) Normal mg/dl Normal [facility] Urine leukocyte esterase det ection by dipstickOrdered By: Wally Valdez on 08-05-2024 Leukocyte esterase Test strip Ql (U) Negative Negative [facility] Urine pHOrdered By: Wally perez on 08-05-2024 pH (U) 5.0 [pH] 5.0 - 8.0 [facility] Urine sediment bacteria coun t by microscopy (number/high power field)Ordered By: Wally Valdez on 08-05-2024 Bacteria LM.HPF (Urine sed) [#/Area] RARE /hpf None Seen [facility] Urine specific gravity measu rementOrdered By: Wally Valdez on 08-05-2024 Specific gravity (U) [Rel density] 1.020 1.002-1.030 [facility] Urine urobilinogen measureme ntOrdered By: Wally Vladez on 08-05-2024 Urobilinogen Ql (U) Normal mg/dl Normal [facility] White blood cell countOrdere d By: Wally Vadlez on 08-05-2024 White blood cell count 0-5 SEEN /hpf 0-5 [facility] Abdomen/Pelvis W IV Cont ONL Yon 05-06-2024 Abdomen/Pelvis W IV Cont ONLY [facility] Imaging Services [address] [place], [place] [address] Abdomen/Pelvis W IV Cont ONLY MR#: [id number] Acct: [id number] Name: LAINE GARCIA Ned Rep #: [id number] : 1955 M 69 From: Lebron Burrell MD PCP: Dr. Dante Gurrola MD Status: REG ER Study: Abdomen/Pelvis W IV Cont ONLY Date of Exam: Exam# [id number] Ordering Dr: Rah Navarro PROCEDURE: ABDOMEN/PELVIS WITH IV CONTRAST REASON FOR EXAM: Abdominal pain for 3 weeks. TECHNIQUE: Contiguous axial scans of 3.75 mm slice thicknesses with sagittal and coronal reconstruction images. One or more dose reduction techniques were used (e.g., Automated exposure control, adjustment of the mA and/or kV according to patient size, use of iterative reconstruction technique). IV CONTRAST: Isovue-300, 80 mL. COMPARISON: None. FINDINGS: Lung bases: Clear Liver: Left hepatic lobe nodule of decreased attenuation measuring 1.7 x 1.4 cm, axial image 24. Gallbladder: Unremarkable. Spleen: Unremarkable. Pancreas: Unremarkable. Adrenals: Unremarkable. Kidneys: Right posterior superior pole cyst measuring 3.7 x 3.2 cm, axial image 44. Multiple left perirenal cysts. Bladder: Moderately decompressed. Reproductive Organs: Mild prostatomegaly. Bowel: Unremarkable. Appendix: Appendix measures 0.62 cm in diameter, axial image 82. Lymph nodes: No suspicious lymph node enlargement. Vasculature: Phleboliths in the left hemipelvis. Peritoneum / Retroperitoneum: No ascites. No free air. Bones: Multilevel spondylosis. Severe facet arthropathy, lumbar spine. Severe degenerative disc disease at L5-S1. CT/Abdomen/Pelvis W IV Cont ONLY IMPRESSION: 1. Right renal cyst. 2. Left paravertebral cysts. 3. Left hepatic lobe cyst. 4. Other nonacute findings detailed above. Reading Location: [facility] CC: ENRI Navarro; Dr. Dante Gurrola MD Acid[employer] [place]: Signed Normal [facility] Absolute lymphocyte countOrd ered By: Rah Navarro on 05-06-2024 Lymphocytes Auto (Unsp spec) [#/Vol] 1.10 10*3/uL 0.83-4.51 [facility] Absolute neutrophil countOrd ered By: Rah Navarro on 05-06-2024 Neutrophils (Bld) [#/Vol] 6.3 10*3/uL 2.0-7.7 [facility] Albumin to globulin ratioOrd ered By: Rah Navarro on 05-06-2024 Albumin/Globulin [Mass ratio] 0.9 {ratio} 0.9-2.4 [facility] Automated lymphocyte count a s percentage of total leukocytesOrdered By: Rah Navarro on 05-06-2024 Lymphocytes/100 WBC Auto (Unsp spec) 13.2 % Low 19-41 [facility] Basophil percentageOrdered B y: Rah Navarro on 05-06-2024 Basophils/100 WBC (Bld) 0.8 % 0-[address] [facility] Bilirubin Test strip Ql (U)O rdered By: Rah Mendietajeremiah on 05-06-2024 Bilirubin Ql (U) Negative Negative [facility] Bilirubin, totalOrdered By: Rah Mendietajeremiah on 05-06-2024 Bilirubin [Mass/Vol] 0.40 mg/dL 0.20-1.00 [facility] Comment on above: For patients on eltr ombopag therapy, use of Dimension [place] TBIL is not recommended. Blood urea nitrogen (BUN)/cr eatinine ratioOrdered By: Rah Navarro on 05-06-2024 Urea nitrogen/Creatinine [Mass ratio] 31.7 mg/mg High 10-20 [facility] CBC W/Diff, Automatedon 02- Absolute Lymph 1.10 X10 3/uL Normal 0.83-4.51 [facility] Comment on above: Performed By: #### L 500.4050, L501.2450, L100.0100 #### [facility] Laboratory [address] [place], [address] Absolute Neut 6.3 X10 3/uL Normal 2.0-7.7 [facility] Comment on above: Performed By: #### L 500.4050, L501.2450, L100.0100 #### [facility] [address] [place], [address] Basophils/100 WBC (Bld) 0.8 % Normal 0-[address] [facility] Comment on above: Performed By: #### L 500.4050, L501.2450, L100.0100 #### [facility] [address] [place], [address] Eosinophils/100 WBC (Bld) 2.2 % Normal 0-5 [facility] Comment on above: Performed By: #### L 500.4050, L501.2450, L100.0100 #### [facility] [address] [place], [address] Erythrocyte distribution width (RBC) [Ratio] 13.1 % Normal 11.6-14.6 [facility] Comment on above: Performed By: #### L 500.4050, L501.2450, L100.0100 #### [facility] [address] [place], [address] Hematocrit (Bld) [Volume fraction] 39.9 % Low 40-54 [facility] Comment on above: Performed By: #### L 500.4050, L501.2450, L100.0100 #### [facility] [address] [place], [address] Hemoglobin (Bld) [Mass/Vol] 13.4 g/dL Normal 13.0-16.5 [facility] Comment on above: Performed By: #### L 500.4050, L501.2450, L100.0100 #### [facility] [address] [place], [address] IG% 0.200 Normal 0.0-0.9 [facility] Comment on above: Result Comment: IG% - Immature Granulocytes (promyelocytes, myelocytes and metamyelocytes) > 1% indicates that a LEFT SHIFT is Present. Performed By: #### L 500.4050, L501.2450, L100.0100 #### [facility] [address] [place], [address] Lymphocytes/100 WBC (Bld) 13.2 % Low 19-41 [facility] Comment on above: Performed By: #### L 500.4050, L501.2450, L100.0100 #### [facility] [address] [place], [address] MCH (RBC) [Entitic mass] 30.0 pg Normal 27.0-32.0 [facility] Comment on above: Performed By: #### L 500.4050, L501.2450, L100.0100 #### [facility] [address] [place], [address] MCHC (RBC) [Mass/Vol] 33.6 g/dL Normal 32-36 [facility] Comment on above: Performed By: #### L 500.4050, L501.2450, L100.0100 #### [facility] [address] [place], [address] MCV (RBC) [Entitic vol] 89.3 fL Normal 80-[address] [facility] Comment on above: Performed By: #### L 500.4050, L501.2450, L100.0100 #### [facility] [address] [place], [address] Monocytes/100 WBC (Bld) 7.8 % Normal 0-10 [facility] Comment on above: Performed By: #### L 500.4050, L501.2450, L100.0100 #### [facility] [address] [place], [address] Neutrophils/100 WBC (Bld) 75.8 % High 47-70 [facility] Comment on above: Performed By: #### L 500.4050, L501.2450, L100.0100 #### [facility] [address] [place], [address] Nucleated RBC (Bld) [#/Vol] 0 10*3/uL Normal 0-5 [facility] Comment on above: Performed By: #### L 500.4050, L501.2450, L100.0100 #### [facility] [address] [place], [address] Platelet mean volume (Bld) [Entitic vol] 9.9 fL Normal 6.2-12.0 [facility] Comment on above: Performed By: #### L 500.4050, L501.2450, L100.0100 #### [facility] [address] [place], [address] Platelets (Bld) [#/Vol] 243 10*3/uL Normal 150-450 [facility] Comment on above: Performed By: #### L 500.4050, L501.2450, L100.0100 #### [facility] [address] [place], [address] RBC (Bld) [#/Vol] 4.47 10*6/uL Low 4.6-6.2 [facility] Comment on above: Performed By: #### L 500.4050, L501.2450, L100.0100 #### [facility] [address] [place], [address] RDW SD 42.9 fl Normal 35.1-43.9 [facility] Comment on above: Performed By: #### L 500.4050, L501.2450, L100.0100 #### [facility] [address] [place], [address] WBC (Bld) [#/Vol] 8.3 10*3/uL Normal 4.4-11.0 [facility] Comment on above: Performed By: #### L 500.4050, L501.2450, L100.0100 #### [facility] [address] [place], [address] Carbon dioxide measurementOr dered By: Rah Navarro on 05-06-2024 CO2 [Moles/Vol] 26.0 mmol/L 21.0-32.0 [facility] Chloride measurementOrdered By: Rah Navarro on 05-06-2024 Chloride [Moles/Vol] 106 mmol/L 98-107 [facility] Comprehensive Metabolic Prof ilon 05-06-2024 Albumin [Mass/Vol] 3.5 g/dL Normal 3.2-5.0 [facility] Comment on above: Performed By: #### L 500.4050, L501.2450, L100.0100 #### [facility] [address] [place], [address] Albumin/Globulin [Mass ratio] 0.9 {ratio} Normal 0.9-2.4 [facility] Comment on above: Performed By: #### L 500.4050, L501.2450, L100.0100 #### [facility] [address] [place], [address] ALK P 86 U/L Normal 45-117 [facility] Comment on above: Performed By: #### L 500.4050, L501.2450, L100.0100 #### [facility] [address] [place], [address] ALT [Catalytic activity/Vol] 19 U/L Normal 16-61 [facility] Comment on above: Performed By: #### L 500.4050, L501.2450, L100.0100 #### [facility] [address] [place], [address] AST [Catalytic activity/Vol] 14 U/L Low 15-37 [facility] Comment on above: Performed By: #### L 500.4050, L501.2450, L100.0100 #### [facility] [address] [place], [address] Bilirubin [Mass/Vol] 0.40 mg/dL Normal 0.20-1.00 [facility] Comment on above: Result Comment: For patients on eltrombopag therapy, use of Dimension [place] TBIL is not recommended. Performed By: #### L 500.4050, L501.2450, L100.0100 #### [facility] [address] [place], [address] BUN/CRE 31.7 RATIO High 10-20 [facility] Comment on above: Performed By: #### L 500.4050, L501.2450, L100.0100 #### [facility] [address] [place], [address] CA,Total 8.9 mg/dL Normal 8.5-10.1 [facility] Comment on above: Performed By: #### L 500.4050, L501.2450, L100.0100 #### [facility] [address] [place], [address] Chloride [Moles/Vol] 106 mmol/L Normal 98-107 [facility] Comment on above: Performed By: #### L 500.4050, L501.2450, L100.0100 #### [facility] [address] [place], [address] CO2 [Moles/Vol] 26.0 mmol/L Normal 21.0-32.0 [facility] Comment on above: Performed By: #### L 500.4050, L501.2450, L100.0100 #### [facility] [address] [place], [address] Creatinine [Mass/Vol] 0.85 mg/dL Normal 0.70-1.30 [facility] Comment on above: Result Comment: The validity of the calculated GFR GFRAA in patients over 70 years has not been determined. Clinical correlation is essential. Performed By: #### L 500.4050, L501.2450, L100.0100 #### [facility] [address] [place], [address] ECRCL 86.13 ml/min Normal [facility] Comment on above: Performed By: #### L 500.4050, L501.2450, L100.0100 #### [facility] [address] [place], [address] EST GFR - AA 114 mL/min Normal >60 [facility] Comment on above: Result Comment: Afri can [place]ic GFR Calc Performed By: #### L 500.4050, L501.2450, L100.0100 #### [facility] [address] [place], [address] GAP 7 Normal 5-15 [facility] Comment on above: Performed By: #### L 500.4050, L501.2450, L100.0100 #### [facility] [address] [place], [address] GFR/1.73 sq M.predicted among non-blacks MDRD (S/P/Bld) [Vol rate/Area] 94 mL/min/{1.73_m2} Normal >60 [facility] Comment on above: Result Comment: Non- GFR Calc Performed By: #### L 500.4050, L501.2450, L100.0100 #### [facility] [address] [place], [address] Globulin (S) [Mass/Vol] 3.7 g/dL Normal 2.2-4.2 [facility] Comment on above: Performed By: #### L 500.4050, L501.2450, L100.0100 #### [facility] [address] [place], [address] Glucose [Mass/Vol] 112 mg/dL High 74-106 [facility] Comment on above: Result Comment: Fast ing Glucose result from 100 to 125 mg/dL suggests IMPAIRED HOMEOSTASIS per A.D.A. criteria. Performed By: #### L 500.4050, L501.2450, L100.0100 #### [facility] [address] [place], [address] Potassium [Moles/Vol] 4.0 mmol/L Normal 3.5-5.1 [facility] Comment on above: Performed By: #### L 500.4050, L501.2450, L100.0100 #### [facility] [address] [place], [address] Sodium [Moles/Vol] 139 mmol/L Normal 136-145 [facility] Comment on above: Performed By: #### L 500.4050, L501.2450, L100.0100 #### [facility] [address] [place], [address] T PROT 7.2 g/dL Normal 6.4-8.2 [facility] Comment on above: Performed By: #### L 500.4050, L501.2450, L100.0100 #### [facility] [address] [place], [address] Urea nitrogen [Mass/Vol] 27 mg/dL High 7-18 [facility] Comment on above: Performed By: #### L 500.4050, L501.2450, L100.0100 #### [facility] [address] [place], [address] Emergency Department Summary on 05-06-2024 Emergency Department Summary [facility] Medical Records Department [address] [place] [address] Emergency Department Summary 05/06/24 MR#: [id number] Acct: [id number] Name: LAINE GARCIA Rep #: [id number] : 1955 69 From: Alf Santiago DO PCP: Dr. Dante Gurrola MD Status:[facility] ER Location: ED Patient was seen and examined with nurse practitioner Rah All components of the history and physical confirmed and agreed. History of present illness and physical exam: Patient is a 69-year-old male with no known significant past medical history who presented to the emergency department with a chief complaint of abdominal pain. He states that this been going on for several months but states the last few days has been worsening. He states that he followed up with his primary care physician and was told yesterday to start MiraLAX. He states that he did have a bowel movement earlier today. He states that he is passing gas. Patient denies any sick contacts. Review of systems: Agree with above Physical exam: Agree with above [facility] Patient is a 69-year-old male who presented to the emergency department the chief complaint of abdominal pain. On the differential diagnose includes Melamin to constipation, bowel obstruction, diverticulitis, pancreatitis. Once workup is obtained and reviewed he will be reevaluated. Patient CBC reviewed and was largely unremarkable no evidence leukocytosis white blood count normal 8.3, hemoglobin 13.4, plate count normal at 243. Patient sodium normal 139, potassium normal at 4, creatinine normal at 0.85. Patient's AST and ALT were 14 and 19 respectively. Patient lipase normal at 29 urinalysis reviewed and showed no evidence of infection. Patient CT abdomen pelvis with IV contrast reviewed showed a right renal cyst, left paravertebral cyst, left hepatic lobe cyst. Discussed results with the patient and he was encouraged to continue the bowel regimen and increase the MiraLAX that he is currently on to 3 times a day and will add Colace. He was encouraged to follow-up with his primary care physician and return with worsening symptoms or any concerns. Patient was given Bentyl as well. He is agreeable this plan as well as family members at bedside all question concerns answered is discharged home in stable condition. Final impression: Abdominal pain Constipation Disposition: Patient will be discharged home in stable condition Supervising attending attestation: Alf COLINDERS History of Present Illness Chief Complaint: Abd Pain Narrative Narrative: Patient is a 69-year-old male with no significant medical history who presents to the Emergency Department with complaints of ongoing abdominal pain for the last 6 to 7 weeks. Patient states over the last 2 to 3 days, the pain has been much more severe, last evening could not sleep. He states that his bowel movements have decreased. He is not having difficulty passing gas. He denies any fever or chills, denies any nausea or vomiting. Denies any blood in his stool or vomit. [facility] Medical History no medical history Home Medications ???Medication ???Instructions ???Recorded ???Last Taken ???Type aspirin 81 mg chewable tablet 81 mg PO DAILY [facility] 01/22/20 History capsicum (cayenne) 450 mg capsule 450 mg PO DAILY supplemetn 01/22/20 History multivitamin 1 tab PO DAILY supplement 01/22/20 01/22/20 History omega-3 fatty acids 1,000 mg 1,000 mg PO DAILY supplement 01/2101/22/20 History capsule turmeric 450 mg-turmeric root 1 cap PO DAILY supplement 01/22/20 01/22/20 History extract 50 mg capsule dicyclomine 20 mg tablet 20 mg PO TID #14 tabs 05/06/24 Unk nown Rx docusate sodium 100 mg capsule 100 mg PO BID #30 caps 05/06/24 Un known Rx (Colace) Allergy/AdvReac Type Severity Reaction Status Date / Time Penicillins AdvReac PT UNABLE Verified 05/06/24 17:54 TO RESPOND-NEEDS F/U Family History no significant family his Surgical History no surgical history Social History Smoking Status: Never smoker ROS ROS ED ROS Narrative Constitutional: Negative for fever, chills, weight loss, weakness Eyes: Negative for vision loss, vision change, double vision ENT: Negative for any sore throat, ear pain, congestion Cardiovascular: Negative for any chest pain, tightness, palpitations Respiratory: Negative for any cough, sputum production, hemoptysis, dyspnea, dyspnea on exertion, orthopnea Gastrointestinal: Negative for any nausea, vomiting, diarrhea, blood in stool, blood in vomit., Positive abdominal pain, constipation : Negative for any urinary frequency, dysuria, retention, blood in urine Muscle skeletal: Negative for any neck pain, back pain Neurological: Negative for any headache, syncope, dizziness Skin: Ne (more content not included)... Normal [facility] Eosinophil percentageOrdered By: Rah Navarro on 05-06-2024 Eosinophils/100 WBC (Bld) 2.2 % 0-5 [facility] Erythrocyte distribution wid th ratioOrdered By: Rah Navarro on 05-06-2024 Erythrocyte distribution width (RBC) [Ratio] 13.1 % 11.6-14.6 [facility] Erythrocyte distribution wid th standard deviationOrdered By: Rah Navarro on 05-06-2024 Erythrocyte distribution width (RBC) [Ratio] 42.9 fl 35.1-43.9 [facility] Glomerular filtration rate ( GFR) estimationOrdered By: Rah Navarro on 05-06-2024 GFR/1.73 sq M.predicted among non-blacks MDRD (S/P/Bld) [Vol rate/Area] 94 mL/min/{1.73_m2} >60 [facility] Comment on above: Non- GFR Calc Glucose measurementOrdered B y: Rah Navarro on 05-06-2024 Glucose [Mass/Vol] 112 mg/dL High 74-106 [facility] Comment on above: Fasting Glucose resu lt from 100 to 125 mg/dL suggests IMPAIRED HOMEOSTASIS per A.D.A. criteria. Hematocrit Auto (Bld) [Volum e fraction]Ordered By: Rah Navarro on 05-06-2024 Hematocrit (Bld) [Volume fraction] 39.9 % Low 40-54 [facility] Hemoglobin measurementOrdere d By: Rah Navarro on 05-06-2024 Hemoglobin (Bld) [Mass/Vol] 13.4 g/dL 13.0-16.5 [facility] Immature granulocytes/100 WB C Auto (Bld)Ordered By: Rah Navarro on 05-06-2024 Immature granulocytes/100 WBC (Bld) 0.200 % 0.0-0.9 [facility] Comment on above: IG% - Immature Granu locytes (promyelocytes, myelocytes and metamyelocytes) > 1% indicates that a LEFT SHIFT is Present. Ketones Test strip Ql (U)Ord ered By: Rah Navarro on 05-06-2024 Ketones Ql (U) 15 mg/dl High Negative [facility] - Chemistry and C hemistry - challengeOrdered By: Rah Navarro on 05-06-2024 AST [Catalytic activity/Vol] 14 U/L Low 15-37 [facility] Lipaseon 05-06-2024 Lipase [Catalytic activity/Vol] 29 U/L Normal 13-75 [facility] Comment on above: Result Comment: Celena mccrary note: LIPASE revised reference range effective 22. New Lipase methodology. Expected to produce lower values than the previous assay method. NEW Reference Range: 13 - 75 U/L Performed By: #### L 500.4050, L501.2450, L100.0100 #### [facility] [address] [place], [address] Lipase measurementOrdered By : Rah Navarro on 05-06-2024 Lipase [Catalytic activity/Vol] 29 U/L 13-75 [facility] Comment on above: Please note:LIPASE r evised reference range effective 22. New Lipase methodology. Expected to produce lower values than the previous assay method. NEW Reference Range: 13 - 75 U/L MCV (mean corpuscular volume ) determinationOrdered By: Rah Navarro on 05-06-2024 MCV (RBC) [Entitic vol] 89.3 fL 80-[address] [facility] Mean corpuscular hemoglobin (MCH) determinationOrdered By: Rah Navarro on 05-06-2024 MCH (RBC) [Entitic mass] 30.0 pg 27.0-32.0 [facility] Mean corpuscular hemoglobin concentration (MCHC) determinationOrdered By: Rah Navarro on 05-06-2024 MCHC (RBC) [Mass/Vol] 33.6 g/dL 32-36 [facility] Mean platelet volume determi nationOrdered By: Rah Navarro on 05-06-2024 Platelet mean volume (Bld) [Entitic vol] 9.9 fL 6.2-12.0 [facility] Microscopic analysis of urin e for red blood cells (RBC)Ordered By: Rah Navarro on 05-06-2024 Microscopic analysis of urine for red blood cells (RBC) 0 SEEN /hpf 0-5 [facility] Monocyte percentageOrdered B y: Rah Navarro on 05-06-2024 Monocytes/100 WBC (Bld) 7.8 % 0-[address] [facility] Mucus LM Ql (Urine sed)Order ed By: Rah Navarro on 05-06-2024 Mucus Ql (Urine sed) 0 SEEN /hpf [facility] Neutrophil percentageOrdered By: Rah Navarro on 05-06-2024 Neutrophils/100 WBC (Bld) 75.8 % High 47-70 [facility] Nitrite Test strip Ql (U)Ord ered By: Rah Navarro on 05-06-2024 Nitrite Ql (U) Negative Negative [facility] Nucleated red blood cell per centageOrdered By: Rah Navarro on 05-06-2024 Nucleated RBC/100 WBC (Bld) [Ratio] 0 % 0-5 [facility] Platelet countOrdered By: Maddie Navarro on 05-06-2024 Platelets (Bld) [#/Vol] 243 10*3/uL 150-450 [facility] Potassium measurementOrdered By: Rah Navarro on 05-06-2024 Potassium [Moles/Vol] 4.0 mmol/L 3.5-5.1 [facility] Protein Test strip Ql (U)Ord ered By: Rah Navarro on 05-06-2024 Protein Ql (U) 15 mg/dl High Negative [facility] RBC Auto (Bld) [#/Vol]Ordere d By: Rah Navarro on 05-06-2024 RBC (Bld) [#/Vol] 4.47 10*6/uL Low 4.6-6.2 [facility] Serum anion gap measurementO rdered By: Rah Navarro on 05-06-2024 Anion gap [Moles/Vol] 7 mmol/L 5-15 [facility] Serum globulin measurementOr dered By: Rah Navarro on 05-06-2024 Globulin (S) [Mass/Vol] 3.7 g/dL 2.2-4.2 [facility] Serum or plasma alanine fuchs otransferase (ALT) measurementOrdered By: Rah Navarro on 05-06-2024 ALT [Catalytic activity/Vol] 19 U/L 16-61 [facility] Serum or plasma albumin arnie urement (mass/volume)Ordered By: Rah Navarro on 05-06-2024 Albumin [Mass/Vol] 3.5 g/dL 3.2-5.0 [facility] Serum or plasma alkaline sherice sphatase measurementOrdered By: Rah Navarro on 05-06-2024 ALP [Catalytic activity/Vol] 86 U/L 45-117 [facility] Serum or plasma calcium arnie urement (mass/volume)Ordered By: Rah Navarro on 05-06-2024 Calcium [Mass/Vol] 8.9 mg/dL 8.5-10.1 [facility] Serum or plasma creatinine m easurement (mass/volume)Ordered By: Rah Navarro on 05-06-2024 Creatinine [Mass/Vol] 0.85 mg/dL 0.70-1.30 [facility] Comment on above: The validity of the calculated GFR & GFRAA in patients over 70 years has not been determined. Clinical correlation is essential. Serum or plasma urea nitroge n measurement (mass/volume)Ordered By: Rah Navarro on 05-06-2024 Urea nitrogen [Mass/Vol] 27 mg/dL High 7-18 [facility] Sodium levelOrdered By: Rah Navarro on 05-06-2024 Sodium [Moles/Vol] 139 mmol/L 136-145 [facility] Squamous epithelial cells de tection in urine sediment by light microscopyOrdered By: Rah Navarro on 05-06-2024 Epithelial cells.squamous LM Ql (Urine sed) 0 SEEN /hpf 0-5 [facility] Total proteinOrdered By: Tatiana Navarro on 05-06-2024 Protein [Mass/Vol] 7.2 g/dL 6.4-8.2 [facility] Urinalysis, Completeon 05-06 BACTERIA 0 SEEN Normal None Seen [facility] Comment on above: Order Comment: CLEAN CATCH Performed By: #### L 400.0001 #### [facility] [address] [place], [place], [id number] EPI,SQUAMOUS 0 SEEN Normal 0-5 [facility] Comment on above: Order Comment: CLEAN CATCH Performed By: #### L 400.0001 #### [facility] [address] [place], [address] Mucus Ql (Urine sed) 0 SEEN Normal [facility] Comment on above: Order Comment: CLEAN CATCH Performed By: #### L 400.0001 #### [facility] [address] [place], [address] RBC 0 SEEN Normal 0-5 [facility] Comment on above: Order Comment: CLEAN CATCH Performed By: #### L 400.0001 #### [facility] [address] [place], [address] WBC 0 SEEN Normal 0-5 [facility] Comment on above: Order Comment: CLEAN CATCH Performed By: #### L 400.0001 #### [facility] [address] [place], [place], [id number] Urine clarityOrdered By: Tatiana Navarro on 05-06-2024 Clarity (U) Clear Clear [facility] Urine color determinationOrd ered By: Rah Nvaarro on 05-06-2024 Color (U) Yellow Yellow [facility] Urine glucose detectionOrder ed By: Rah Navarro on 05-06-2024 Glucose Ql (U) Normal mg/dl Normal [facility] Urine leukocyte esterase det ection by dipstickOrdered By: Rah Navarro on 05-06-2024 Leukocyte esterase Test strip Ql (U) 25 /ul High Negative [facility] Urine pHOrdered By: Rah bermeo on 05-06-2024 pH (U) 5.0 [pH] 5.0 - 8.0 [facility] Urine sediment bacteria coun t by microscopy (number/high power field)Ordered By: Rah Navarro on 05-06-2024 Bacteria LM.HPF (Urine sed) [#/Area] 0 /[HPF] None Seen [facility] Urine specific gravity measu rementOrdered By: Rah Navarro on 05-06-2024 Specific gravity (U) [Rel density] 1.025 1.002-1.030 [facility] Urine urobilinogen measureme ntOrdered By: Rah Navarro on 05-06-2024 Urobilinogen Ql (U) Normal mg/dl Normal [facility] White blood cell (WBC) count Ordered By: Rah Navarro on 05-06-2024 WBC (Bld) [#/Vol] 8.3 10*3/uL 4.4-11.0 [facility] White blood cell countOrdere d By: Rah Navarro on 05-06-2024 White blood cell count 0 SEEN /hpf 0-[address] [facility] EMERGENCY REPORTon 3 EMERGENCY REPORT [facility] EMERGENCY ROOM REPORT NAME ACCOUNT SEX AGE ADMIT DISCHARGE PT MED. RECORD# NUMBER DATE DATE TYPE LAINE GARCIA [id number] M 67 06/27/22 06/27/22 3 [id number] ROOM: ER DATE OF : 1955 DICTATING PHYSICIAN: Ted Youngblood ADDENDEITAN EMERGENCY DEPARTMENT COURSE AND TREATMENT: This patient was seen originally by Dr. Harman. He was evaluated by Dr. Hankins in the Emergency Department as well. Radiology had made no comment about the patient's appendix on CT, and he did request that we get a hold of the radiologist to review the CT to make a comment on the appendix. Dr. Kraus did over-read the CT and contacted me, stating that she thought that the appendix was normal and that she did identify what appeared to be a very small calculus at the distal right ureter. In the meantime, the patient was evaluated by Dr. Hankins, who felt that this was indeed not surgical and was most likely associated with renal colic from the renal calculus. I talked to the patient, and his pain was very much improved. I discussed management with him. The plan will be to discharge him home with a prescription for a several-day course of Bactrim, Percocet and Toradol if needed for pain, Flomax to take regularly for the next several days, and Zofran if needed for nausea. He is to follow up with his family physician in 2 to 3 days if he does not pass the stone. Return to the Emergency Department if the pain worsens or if other symptoms develop such as fever, chills, or vomiting. DIAGNOSIS: Right ureteral calculus with renal colic. Dictated By: Ted Youngblood MD 06/27/22 09:51 JOB #: [id number] Transcribed By: felipe 06/27/22 14:24 Electronically signed by: LIEN Youngblood M.D. 07/01/22 06:58 Page 1 of 1 LAINE GARCIA Emergency Room Report Normal [facility] EMERGENCY REPORTon 3 EMERGENCY REPORT [facility] EMERGENCY ROOM REPORT NAME ACCOUNT SEX AGE ADMIT DISCHARGE PT MED. RECORD# NUMBER DATE DATE TYPE GARCIALAINE [id number] Julius 67 06/27/22 06/27/22 3 [id number] ROOM: ER DATE OF : 1955 DICTATING PHYSICIAN: Laine Harman TIME SEEN: 4:49 a.m. HISTORY OF PRESENT ILLNESS: This is a 67-year-old white male complaining of right lower quadrant abdominal pain that started rather suddenly around 1 a.m. this morning. It woke him up from sleep. He states the pain did radiate into his right lower back as well. He developed nausea, and he did vomit once. He has denied any dysuria or hematuria. He has no history of kidney stones. He still does have his appendix. He rates his pain as an 8 on a severity scale of 1-10. He describes it as sharp in nature. It is somewhat worse with movement. PCP is Dr. Dante Gurrola in [facility]. PAST MEDICAL HISTORY: Denied. PAST SURGICAL HISTORY: He has had previous hiatal hernia repair. He has had a rotator cuff surgery to his right shoulder, and he has had previous left hand surgery. ALLERGIES: He is allergic to penicillin. SOCIAL HISTORY: He is not a smoker. He denies any alcohol or drug use. He lives at home with family. REVIEW OF SYSTEMS: He denies any chest pain, shortness of breath, cough, sputum, or wheezing. He does complain of right lower quadrant abdominal pain with nausea and vomiting. He denies any diarrhea, constipation, melena, or hematochezia. He denies any urinary urgency, frequency, dysuria, hematuria, headache, numbness, unsteady gait, weakness, neck or joint pain, skin rash or swelling, hives, hay fever, or swollen glands. Further review of systems is negative. PHYSICAL EXAMINATION: VITAL SIGNS: Blood pressure is 157/99, pulse 62, respirations 18, and pulse oximetry 99% on room air. GENERAL: The patient is alert and oriented x3. He does appear in some mild distress secondary to right lower quadrant abdominal pain, but he is pleasant and cooperative. He makes eye contact. He speaks in full sentences. HEENT: Head appears atraumatic. Pupils are equal and reactive to light. Red reflexes are intact bilaterally. Extraocular muscles are intact. No conjunctival injection. No scleral icterus or lid edema. NOSE: Nose exhibits no rhinorrhea or epistaxis. MOUTH: Mucous membranes are mildly dry. No pharyngeal erythema. Uvula is midline and elevates. NECK: Neck is supple. Trachea is midline. No JVD or lymphadenopathy. No posterior cervical tenderness. No nuchal rigidity. LUNGS: Page 1 of 2 LAINE GARCIA Emergency Room Report LAINE GARCIA : 1955 Lungs are clear to auscultation bilaterally. No adventitious sounds are noted. No accessory muscle use is noted. CV: Heart rate and rhythm are regular without murmur. ABDOMEN: Abdomen is soft with palpable tenderness in the right lower quadrant. Bowel sounds are present x4 quadrants and mildly hyperactive. The patient does exhibit voluntary guarding but no involuntary guarding. No rebound. No palpable abdominal masses. No hepatosplenomegaly. BACK: Back exhibits no midline or paraspinal region tenderness. No increased paraspinal muscle rigidity. Negative Enzo's sign. EXTREMITIES: No edema or cyanosis. Peripheral pulses are intact. No motor or sensory deficits are noted. 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 SKIN: Skin is warm and dry. No diaphoresis or rash. NEUROLOGIC: Neurologic examination shows the patient to be alert and oriented x4. No motor or sensory deficits are noted. Normal speech. No conversational dyspnea. EMERGENCY DEPARTMENT COURSE AND TREATMENT: Presently, I am going to get a CT scan of the abdomen and pelvis along with some screening bloodwork and a urinalysis. We will give the patient some IV fluids here. I did order some Dilaudid and Toradol for pain and Zofran for nausea and then we will reevaluate. Dictated By: Laine Harman DO 06/27/22 05:04 JOB #: [id number] Transcribed By: felipe 06/27/22 13:48 Electronically signed by: E-Sign: Dr. Laine Harman D.O. 06/29/22 08:30 Page 2 of 2 LAINE GARCIA Emergency Room Report Normal [facility] EMERGENCY REPORT [facility] EMERGENCY ROOM REPORT NAME ACCOUNT SEX AGE ADMIT DISCHARGE PT MED. RECORD# NUMBER DATE DATE TYPE LAINE GARCIA [id number] M 67 06/27/22 06/27/22 3 [id number] ROOM: ER DATE OF : 1955 DICTATING PHYSICIAN: Laine Harman ADDENDUM DIAGNOSTIC DATA: EKG was done at 4:49 a.m. It showed sinus rhythm at [address]-segment changes were noted. Lawrence is 0 degrees. White count came back normal at 8.2 with a hemoglobin of 14.1, hematocrit 41.2, and platelet count of 196,000. He did have an elevation in his neutrophils of 86.8. Lymphocytes were low at 6.2. Sodium was 137, potassium 3.7, chloride 103, CO2 of 26.6, and BUN elevated at 24. I am giving the patient some fluids here. I do not have any previous bloodwork to compare that to. The creatinine is normal at 1. 05. Glucose is 139. AST is 22, ALT 15, alkaline phosphatase 69, and total bilirubin 0.6. Lipase was normal at 120, but the CRP was elevated at 5.1. Anion gap was normal at 11. Urinalysis showed negative nitrites and negative leukocyte esterase. There were no white cells on the microscopic, but there were 10-15 red cells, trace of bacteria, and rare epithelials. I did send that for a urine culture. CT scan of the abdomen and pelvis showed soft tissue density/perinephric fat stranding around the right kidney. Findings may represent pyelonephritis. However, the radiologist recommended correlating that with a urinalysis, but as noted the urinalysis had no white cells and just a trace of bacteria with negative nitrites and negative leukocyte esterase. Clinically, he does not present like a pyelonephritis. They felt that the other differential was perinephric lymphoma but less favored. There was some mild bilateral dilatation of the renal pelvis. EMERGENCY DEPARTMENT COURSE AND TREATMENT: On examination, the patient was tender in the right lower quadrant of the abdomen prior to me medicating him. I was still concerned the patient was appendicitis, just the way he presented and looking at the CT scan. I spoke with Dr. Hankins, the general surgeon on-call, and he decided to come down and see the patient here in the ER, and then we will decide on disposition. We did decide to go ahead and start the patient on some antibiotics. I hitesh two blood cultures and a lactate level. I ordered some Rocephin and Flagyl IV since he is allergic to penicillin and I could not give him the Zosyn. DIAGNOSIS: Right lower quadrant abdominal pain with perinephric fat stranding of right kidney. PLAN/DISPOSITION: We will wait for the general surgery consultation and then decide Page 1 of 2 LAINE GARCIA Emergency Room Report LAINE GARCIA : 1955 on disposition. Dictated By: Laine Harman DO 06/27/22 07:47 JOB #: [id number] Transcribed By: felipe 06/27/22 14:09 Electronically signed by: E-Sign: Dr. Laine Harman D.O. 06/29/22 08:30 Page 2 of 2 LAINE GARCIA Emergency Room Report Normal [facility] C-REACTIVE PROTEINon 023 CRP 5.10 mg/dl High 0.00 - 0.90 [facility] Comment on above: Performed By: #### 2 55029 #### [facility],[address] [place] [address] CBC + DIFFon 06-27-2022 Baso # 0.00 x10EE3/UL Normal 0.00 - 0.10 [facility] Comment on above: Performed By: #### 2 39244 #### [facility],[address] [place] [address] 20805 Basophils/100 WBC (Bld) 0.5 % Normal 0.0 - 2.0 [facility] Comment on above: Performed By: #### 2 13124 #### [facility],[address] [place] [address] CBC + DIFF Normal [facility] Comment on above: Result Comment: CBC- COMPLETE BLOOD COUNT Performed By: #### 2 78965 #### [facility],[address] [place] [address] 26213 EO # 0.00 x10EE3/UL Normal 0.00 - 0.50 [facility] Comment on above: Performed By: #### 2 77684 #### [facility],[address] [place] [address] 56888 Eosinophils/100 WBC (Bld) 0.4 % Normal 0.0 - 7.0 [facility] Comment on above: Performed By: #### 2 72869 #### [facility],[address] [place] [address] Erythrocyte distribution width (RBC) [Ratio] 13.9 % Normal 12.0 - 15.6 [facility] Comment on above: Performed By: #### 2 28541 #### [facility],[address] [place] [address] Hematocrit (Bld) [Volume fraction] 41.2 % Normal 40.0 - 52.0 [facility] Comment on above: Performed By: #### 2 64707 #### [facility],[address] [place], [place] [id number] Hemoglobin (Bld) [Mass/Vol] 14.1 g/dL Normal 13.0 - 17.5 [facility] Comment on above: Performed By: #### 2 55234 #### [facility],[address] [place] [address] Lymph # 0.50 x10EE3/UL Low 0.80 - 2.80 [facility] Comment on above: Performed By: #### 2 96012 #### [facility],[address] [place] [address] Lymphocytes/100 WBC (Bld) 6.2 % Low 20.0 - 45.0 [facility] Comment on above: Performed By: #### 2 86582 #### [facility],[address] [place] [address] 52315 MANUAL DIFF N/A Normal [facility] Comment on above: Performed By: #### 2 28360 #### [facility],[address] [place], [place] [id number] MCH (RBC) [Entitic mass] 32 pg Normal 27 - 33 [facility] Comment on above: Performed By: #### 2 52527 #### [facility],[address] [place] [address] 78617 MCHC 34 X10 3 Normal 32 - 36 [facility] Comment on above: Performed By: #### 2 41715 #### [facility],[address] [place] [address] 50839 MCV (RBC) [Entitic vol] 92 fL Normal 81 - 98 [facility] Comment on above: Performed By: #### 2 55636 #### [facility],[address] [place] [address] 94949 Caribou # 0.50 x10EE3/UL Normal 0.20 - 1.00 [facility] Comment on above: Performed By: #### 2 79652 #### [facility],[address] [place] [address] 41865 MONOS % 6.1 % Normal 0.0 - 10.0 [facility] Comment on above: Performed By: #### 2 26708 #### [facility],[address] [place] [address] 10859 Morphology Ramón (Bld) [Interp] N/A Normal [facility] Comment on above: Performed By: #### 2 37404 #### [facility],[address] [place] [address] 69487 Neut # 7.20 x10EE3/UL High 1.50 - 7.10 [facility] Comment on above: Performed By: #### 2 11699 #### [facility],[address] [place] [address] 50151 Neutrophils/100 WBC (Bld) 86.8 % High 46.0 - 76.0 [facility] Comment on above: Performed By: #### 2 71303 #### [facility],[address] [place] [address] 89277 PLATELET 196 x10EE3/UL Normal 150 - 450 [facility] Comment on above: Performed By: #### 2 28788 #### [facility],[address] [place] [address] 04203 Platelet mean volume (Bld) [Entitic vol] 8.1 fL Normal 6.4 - 10.5 [facility] Comment on above: Result Comment: AUTO MATED DIFFERENTIAL Performed By: #### 2 26902 #### [facility],[address] [place] [address] 00425 RBC 4.48 x 10EE6/UL Low 4.50 - 6.00 [facility] Comment on above: Performed By: #### 2 28685 #### [facility],[address] [place] [address] 54139 WBC 8.2 x 10EE3/UL Normal 4.5 - 10.8 [facility] Comment on above: Performed By: #### 2 60858 #### [facility],[address] [place] [address] 98727 CMP with eGFRon 06-27-2022 AGE 67 years Normal [facility] Comment on above: Performed By: #### 2 41919 #### [facility],[address] [place] [address] 44395 Albumin [Mass/Vol] 3.5 g/dL Normal 3.4 - 5.0 [facility] Comment on above: Performed By: #### 2 27722 #### [facility],[address] [place] [address] 25931 Albumin/Globulin [Mass ratio] 1.1 {ratio} Normal 0.9 - 1.6 [facility] Comment on above: Performed By: #### 2 99921 #### [facility],[address] [place] [address] 74328 ALK PHOS 69 U/L Normal 46 - 116 [facility] Comment on above: Performed By: #### 2 56749 #### [facility],[address] [place] [address] 58625 ALT [Catalytic activity/Vol] 15 U/L Low 16 - 63 [facility] Comment on above: Performed By: #### 2 67739 #### [facility],[address] [place] [address] 43774 Anion gap [Moles/Vol] 11 mmol/L Normal 10 - 20 [facility] Comment on above: Performed By: #### 2 62059 #### [facility],[address] [place] [address] 28805 AST [Catalytic activity/Vol] 22 U/L Normal 15 - 37 [facility] Comment on above: Performed By: #### 2 91983 #### [facility],[address] [place] [address] 99381 B/C RATIO 23 ratio Normal 0 - 30 [facility] Comment on above: Performed By: #### 2 48141 #### [facility],[address] [place] [address] 90942 Bilirubin [Mass/Vol] 0.6 mg/dL Normal 0.2 - 1.0 [facility] Comment on above: Performed By: #### 2 69089 #### [facility],[address] [place] [address] 73010 Calcium [Mass/Vol] 8.5 mg/dL Normal 8.5 - 10.1 [facility] Comment on above: Performed By: #### 2 96078 #### [facility],[address] [place] [address] 92930 Chloride [Moles/Vol] 103 mmol/L Normal 98 - 107 [facility] Comment on above: Performed By: #### 2 12008 #### [facility],[address] [place] [address] 54128 CMP with eGFR Normal [facility] Comment on above: Result Comment: COMP REHENSIVE METABOLIC PANEL Performed By: #### 2 95564 #### [facility],[address] [place] [address] 82872 CO2 [Moles/Vol] 26.6 mmol/L Normal 21.0 - 32.0 [facility] Comment on above: Performed By: #### 2 65096 #### [facility],[address] [place] [address] 75924 Creatinine [Mass/Vol] 1.05 mg/dL Normal 0.70 - 1.30 [facility] Comment on above: Performed By: #### 2 24561 #### [facility],[address] [place] [address] 26953 GFR/1.73 sq M.predicted among non-blacks MDRD (S/P/Bld) [Vol rate/Area] mL/min/{1.73_m2} Normal 60 - 999 [facility] Comment on above: Performed By: #### 2 36161 #### [facility],[address] [place] [address] 21031 Result Comment: ACCO RDING TO THE NATIONAL KIDNEY DISEASE EDUCATION PROGRAM(NKDE), A NORMAL eGFR IS A VALUE GREATER THAN OR EQUAL TO 60 ML/MIN/1.73 SQ METERS. CHRONIC KIDNEY DISEASE: <60mL/MIN/1.73 SQ METERS KIDNEY FAILURE: <15mL/MIN/1.73 SQ METERS THIS TEST SHOULD ONLY BE USED FOR PATIENTS 18 YEARS OF AGE AND OLDER. Globulin (S) [Mass/Vol] 3.2 g/dL Normal 1.5 - 3.8 [facility] Comment on above: Performed By: #### 2 25608 #### [address] [address] Glucose [Mass/Vol] 139 mg/dL High 74 - 106 [facility] Comment on above: Performed By: #### 2 15299 #### [address] [address] Potassium [Moles/Vol] 3.7 mmol/L Normal 3.5 - 5.1 [facility] Comment on above: Performed By: #### 2 60543 #### [address] [address] Protein [Mass/Vol] 6.7 g/dL Normal 6.4 - 8.2 [facility] Comment on above: Performed By: #### 2 36209 #### [address] [address] Sodium [Moles/Vol] 137 mmol/L Normal 136 - 145 [facility] Comment on above: Performed By: #### 2 97396 #### [address] [address] Urea nitrogen [Mass/Vol] 24 mg/dL High 7 - 18 [facility] Comment on above: Performed By: #### 2 55249 #### [facility],[address] [place] [address] ABDOMEN/PELVIS Won 2022 CT ABDOMEN/PELVIS [address] [address] Patient: LAINE GARCIA Phone#: : 1955 Age: 67 Gender: M Pt. Type: ER Account: [id number] Location: 052 Ordering: LAINE HARMAN Exam Date: 06/27/2022/5:56 Family Phys: DANTE GURROLA Charge Code: [id number] Physician: Whitfield Order #: [id number] Dose#: 12.20 mGy PROCEDURE: CT ABDOMEN/PELVIS WITH CONTRAST COMPARISON: None. INDICATIONS: Abdomen pain. TECHNIQUE: After obtaining the patient's consent, CT images were created with non-ionic intravenous contrast material. All CT scans at this facility use dose modulation, iterative reconstruction, and/or weight based dosing when appropriate to reduce radiation dose to as low as reasonably achievable. IV CONTRAST: Omnipaque 350,80ml TOTAL DOSE: 12.20 CTDIvol(mGy) FINDINGS: LIVER: There is a cyst in the left lobe. No enlargement, atrophy, abnormal density, or significant focal lesion. BILIARY: The gallbladder is present. PANCREAS: Normal. No lesion, fluid collection, ductal dilatation, or atrophy. SPLEEN: Normal. No enlargement or focal lesion. KIDNEYS: Tiny stone at the distal right ureter measuring 0.2 cm, ser 2 img 83. There is delayed right renal nephrogram and perinephric stranding. There is mild right hydronephrosis and hydroureter. There is a right renal cyst measuring 3.4 cm. The left kidney enhances and excretes contrast. There are right peripelvic cysts. Low attenuation lesion in the right kidney two small to characterize. ADRENALS: Normal. No mass or enlargement. AORTA/VASCULAR: No aneurysm. Atherosclerotic calcifications. RETROPERITONEUM: Normal. No mass or adenopathy. BOWEL/MESENTERY: No bowel obstruction or dilatation. Moderate stool burden. Normal appendix. ABDOMINAL WALL: Normal. No mass or hernia. URINARY BLADDER: Normal. No visible focal wall thickening, lesion, or calculus. PELVIC NODES: Normal. No adenopathy. PELVIC ORGANS: Normal. No visible mass. Pelvic organs appropriate for patient age. Continued Report - Page 2 of 2 Patient: LAINE GARCIA Phone#: : 1955 Age: 67 Gender: M Pt. Type: ER Account: [id number] Location: 052 Ordering: LAINE HARMAN Exam Date: 06/27/2022/5:56 Family Phys: DANTE GURROLA Charge Code: [id number] Physician: Whitfield Order #: [id number] Dose#: 12.20 mGy BONES: Degenerative changes of the spine. LUNG BASES: Normal. No visible pulmonary or pleural disease. OTHER: Negative. CONCLUSION: 1. Small obstructing distal right ureter stone resulting in hydronephrosis, perinephric stranding and delayed renal nephrogram This report was communicated by telephone to Dr. Ted Youngblood at the dictation time shown below. Dictated by: Veronika Kraus MD on 06/27/2022 at 8:09 Approved by: Veronika Kraus MD on 06/27/2022 at 8:23 Normal [facility] CULTURE BLOOD [RASHARD]on Microscopic examination of blood, culture CULTURE BLOOD [RASHARD] _[facility] FOR SCANNED REPORT 07/03/22.952.[facility] Comment on above: Performed By: #### 2 75272 ####[facility],[address] [place] [address] Microscopic examination of blood, culture CULTURE BLOOD [RASHARD] _BLOOD CULTURE_ [facility] AND ATTACHMENTS FOR SCANNED REPORT 07/03/22.[facility] Comment on above: Performed By: #### 2 60847 #### [facility],[address] [place] [address] LACTATEon 06-27-2022 Lactate [Moles/Vol] 0.4 mmol/L Normal 0.4 - 2.0 [facility] Comment on above: Performed By: #### 2 14969 #### [facility],[address] [place], [place] [id number] LIPASEon 06-27-2022 Lipase [Catalytic activity/Vol] 120.0 U/L Normal 73.0 - 393 [facility] Comment on above: Performed By: #### 2 39369 #### [facility],[address] [place], [place] [id number] URINALYSISon 06-27-2022 Amorphous NONE Normal [facility] Comment on above: Performed By: #### 2 09730 #### [facility],[address] [address] [place], [place] [id number] Bacteria TRACE Normal [facility] Comment on above: Performed By: #### 2 [id number] #### [facility],[address] [place] [address] Bilirubin Ql (U) Negative Normal NORMAL: NEGATIVE [facility] Comment on above: Performed By: #### 2 [id number] #### [facility],[address] [place], [place] [id number] Casts NONE Normal [facility] Comment on above: Performed By: #### 2 [id number] #### [facility],[address] [place] [address] Clarity (U) clear Normal NORMAL: CLEAR [facility] Comment on above: Performed By: #### 2 [id number] #### [facility],[address] [place], [place] [id number] Color (U) p.yel Normal NORMAL: YELLOW [facility] Comment on above: Performed By: #### 2 83027 #### [facility],[address] [place] [address] 44468 Crystals LM Nom (Urine sed) NONE Normal [facility] Comment on above: Performed By: #### 2 [id number] #### [facility],[address] [place] [address] 14313 Epi Cells RARE Normal [facility] Comment on above: Performed By: #### 2 [id number] #### [facility],[address] [place] [address]609 Glucose Ql (U) NORM Normal NORMAL: NORMAL [facility] Comment on above: Performed By: #### 2 [id number] #### [facility],[address] [place] [address] 82419 Hemoglobin Ql (U) 150 Abnormal NORMAL: NEGATIVE [facility] Comment on above: Performed By: #### 2 [id number] #### [facility],[address] [place] [address] 50523 Ketone 5 Abnormal NORMAL: NEGATIVE [facility] Comment on above: Performed By: #### 2 96594 #### [facility],[address] [place] [address] 15699 Leukocytes Negative Normal NORMAL: NEGATIVE [facility] Comment on above: Performed By: #### 2 [id number] #### [facility],[address] [place] [address] 70041 Mucous NONE Normal [facility] Comment on above: Performed By: #### 2 [id number] #### [facility],[address] [place] [address] 49311 Nitrite Ql (U) Negative Normal NORMAL: NEGATIVE [facility] Comment on above: Performed By: #### 2 28714 #### [facility],[address] [place] [address] 57036 pH (U) 8 [pH] Normal NORMAL: 5.0-8.0 [facility] Comment on above: Performed By: #### 2 89972 #### [facility],[address] [place] [address] 70159 Protein Ql (U) 15 Abnormal NORMAL: NEGATIVE [facility] Comment on above: Performed By: #### 2 45120 #### [facility],[address] [place] [address] Rbc 10-15 Normal 0-3/hpf [facility] Comment on above: Performed By: #### 2 55140 #### [facility],[address] [place] [address] Sp Santa Claus 1.010 Normal NORMAL: 1.010-1.030 [facility] Comment on above: Performed By: #### 2 92027 #### [facility],[address] [place] [address] Specimen Type Clean catch Normal [facility] Comment on above: Performed By: #### 2 22961 #### [facility],[address] [place] [address] Urinalysis dipstick W Reflex Microscopic panel (U) SEE BELOW Normal [facility] Comment on above: Result Comment: MICR OSCOPIC Performed By: #### 2 68097 #### [facility],[address] [place] [address] Urobilinog NORM Normal NORMAL: NORMAL [facility] Comment on above: Performed By: #### 2 75807 #### [facility],[address] [place] [address] Wbc NONE Normal 0-5/hpf [facility] Comment on above: Performed By: #### 2 57966 #### [facility],[address] [place] [address] Yeast NONE Normal [facility] Comment on above: Performed By: #### 2 76950 #### [facility],[address] [place] [address] Vital Signs Date Time Vital Sign Value Performing Clinician Ruthie lunsford 09-01-2024 15:41-0400 Body temperature 98 [degF] Dr. Dante Gurrola DO Work Phone: [facility] 09-01-2024 15:41-0400 Body weight 77.[address] Dante Gurrola DO Work Phone: [facility] 09-01-2024 15:41-0400 Diastolic blood pressure 68 mm[Hg] Dr. Dante Gurrola DO Work Phone: [facility] 09-01-2024 15:41-0400 Heart rate 65 /min Dr. Dante Gurrola DO Work Phone: [facility] 09-01-2024 15:41-0400 Respiratory rate 16 /min Dr. Dante Gurrola DO Work Phone: [facility] 09-01-2024 15:41-0400 SaO2% (BldA) [Mass fraction] 98 % Dr. Dante Gurrola DO Work Phone: [facility] 09-01-2024 15:41-0400 Systolic blood pressure 110 mm[Hg] Dr. Dante Gurrola DO Work Phone: [facility] 08-24-2024 09:49-0400 Body height 180.3 cm Zara PostephaniNetManagegiselal DO Work Phone: [facility] [employer] 08-24-2024 09:49-0400 Body mass index (BMI) [Ratio] 23.63 kg/m2 Zara PozNetManagegisella DO Work Phone: [facility] [employer] 08-24-2024 09:49-0400 Body temperature 97.7 [degF] Zara StantonNetManagegisella DO Work Phone: [facility] [employer] 08-24-2024 09:49-0400 Body weight 76.84 kg Zara Stantonsggisella DO Work Phone: [facility] [employer] 08-24-2024 09:49-0400 Diastolic blood pressure 69 mm[Hg] Zara Spann DO Work Phone: [facility] [employer] 08-24-2024 09:49-0400 Heart rate 72 /min Zara Spann DO Work Phone: [facility] [employer] 08-24-2024 09:49-0400 SaO2% (BldA) [Mass fraction] 99 % Zara Spann DO Work Phone: [facility] 08-24-2024 09:49-0400 Systolic blood pressure 118 mm[Hg] Zara Spann DO Work Phone: [facility] 08-13-2024 06:02-0400 Body temperature 98.8 [degF] Ganesh Earl MD Work Phone: [facility] 08-13-2024 06:02-0400 Diastolic blood pressure 90 mm[Hg] Ganesh Earl MD Work Phone: [facility] 08-13-2024 06:02-0400 Heart rate 66 /min Ganesh Earl MD Work Phone: [facility] 08-13-2024 06:02-0400 Respiratory rate 20 /min Ganesh Earl MD Work Phone: [facility] 08-13-2024 06:02-0400 SaO2% (BldA) [Mass fraction] 97 % Ganesh Earl MD Work Phone: [facility] 08-13-2024 06:02-0400 Systolic blood pressure 144 mm[Hg] Ganesh Earl MD Work Phone: [facility] 08-12-2024 14:23-0400 Body height 180.3 cm Ganesh Earl MD Work Phone: [facility] 08-09-2024 18:56-0400 Body mass index (BMI) [Ratio] 23.71 kg/m2 Ganesh Earl MD Work Phone: [facility] 08-09-2024 18:56-0400 Body weight 77.11 kg Ganesh Earl MD Work Phone: [facility] 08-09-2024 17:28-0400 Body temperature 98.9 [degF] Dr. Dante Gurrola DO Work Phone: [facility] 08-09-2024 17:28-0400 Diastolic blood pressure 90 mm[Hg] Dr. Dante Gurrola DO Work Phone: 9(676)518-006276 [place] [address] 08-09-2024 17:28-0400 Heart rate 77 /min Dr. Dante Gurrola DO Work Phone: 3(088)480-293530 [place] [address] 08-09-2024 17:28-0400 Respiratory rate 14 /min Dr. Dante Gurrola DO Work Phone: 0(788)604-471630 [place] [address] 08-09-2024 17:28-0400 SaO2% (BldA) [Mass fraction] 95 % Dr. Dante Gurrola DO Work Phone: 1(327)634-129030 [place] [address] 08-09-2024 17:28-0400 Systolic blood pressure 150 mm[Hg] Dr. Dante Gurrola DO Work Phone: 4(282)209-508630 [place] [address] 08-09-2024 05:44-0400 Body mass index (BMI) [Ratio] 25.9 kg/m2 Dr. Dante Gurrola DO Work Phone: 2(877)662-178930 [place] [address] 08-09-2024 05:44-0400 Body weight 82.[address] Dante Gurrola DO Work Phone: 4(863)806-159030 [place] [address] 08-07-2024 18:57-0400 Inhaled oxygen flow rate 6 L/min Dr. Dante Gurrola DO Work Phone: 8(627)313-246630 [place] [address] 08-07-2024 15:16-0400 Body height 177.[address] Dante Gurrola DO Work Phone: 8(175)755-772430 [place] [address] 05-06-2024 19:53-0500 Body temperature 98.4 [degF] Dr. Dante Gurrola DO Work Phone: 8(736)440-038230 [place] [address] 05-06-2024 19:53-0500 Diastolic blood pressure 98 mm[Hg] Dr. Dante Gurrola DO Work Phone: 8(422)053-737030 [place] [address] 05-06-2024 19:53-0500 Heart rate 57 /min Dr. Dante Gurrola DO Work Phone: 5(610)660-524230 [place] [address] 05-06-2024 19:53-0500 Respiratory rate 16 /min Dr. Dante Gurrola DO Work Phone: [facility] 05-06-2024 19:53-0500 SaO2% (BldA) [Mass fraction] 97 % Dr. Dante Gurrola DO Work Phone: [facility] 05-06-2024 19:53-0500 Systolic blood pressure 166 mm[Hg] Dr. Dante Gurrola DO Work Phone: [facility] 05-06-2024 17:54-0500 Body mass index (BMI) [Ratio] 26.2 kg/m2 Dr. Dante Gurrola DO Work Phone: [facility] 05-06-2024 17:54-0500 Body weight 85.[address] Dante Gurrola DO Work Phone: [facility] Encounters Encounter Date Encounter Type Care Provider Facility Start: 09-01-2024 End: 09-01-2024 Patient encounter procedure Manuela PERKINS -[facility] Work Phone: Start: 09-01-2024 End: 09-01-[address] Danet Gurrola DO Work Phone: [facility] Work Phone: Start: 08-24-2024 End: 08-27-2024 Patient encounter procedure Nereyda Sorto RN [employer] Start: 08-24-2024 End: 08-24-2024 Postop follow up visit related to original px Zara Spann DO Work Phone: [facility] [place] Comment on above: Encounter for postop erative care (Primary Dx) Start: 08-24-2024 End: 08-27-2024 ambulatory Nereyda Sorto RN [employer] Start: 08-22-2024 End: 08-22-2024 Patient encounter procedure Betito Avendano DO -[facility] Work Phone: Start: 08-22-2024 End: 08-22-[address] Dante Gurrola DO Work Phone: [facility] Work Phone: Start: 08-17-2024 End: 08-17-2024 Telephone encounter Zara Spann DO Work Phone: [facility] [place] Comment on above: Other Start: 08-09-2024 End: 08-13-2024 Evaluation and management of inpatient Ganesh Earl MD Work Phone: [facility] Comment on above: Duodenal perforation (CMS/HCC) (HCC) (Primary Dx) Start: 08-09-2024 Non-patient / Non-visit Betito Pickett nd DO -[facility] Start: 08-09-2024 Non-patient / Non-visit Dr. Brandie STANLEYNabb [facility] Work Phone: Start: 08-09-2024 Non-patient / Non-visit Dr. Lebron spann MD -[facility] Start: 08-08-2024 Non-patient / Non-visit Betitoblanca Pickett nd [facility] Start: 08-08-2024 Non-patient / Non-visit Dr. Brandie Sinclair [facility] Work Phone: Start: 08-07-2024 Non-patient / Non-visit Betito Pickett nd [facility] Start: 08-07-2024 Non-patient / Non-visit Dr. Naz Nelson [facility] Work Phone: Start: 08-06-2024 Non-patient / Non-visit Dr. Naz [facility] Work Phone: Start: 08-05-2024 Non-patient / Non-visit Betitoblanca Pickett nd DO -[facility] Start: 08-05-2024 ambulatory Derrick Yadav Facility:[facility] Start: 08-05-2024 End: 08-09-2024 Evaluation and management of inpatient Dr. Brandie Spears DO [facility] Work Phone: Start: 07-25-2024 End: 07-25-2024 Patient encounter procedure Ruba HE -[facility] Work Phone: Start: 07-25-2024 End: 07-25-2024 ambulatory [facility] Facility:[facility] Start: 05-06-2024 End: 05-06-2024 Emergency department patient visit Dr. Alf Santiago DO -Emergency Department Work Phone: Start: 06-27-2022 End: 06-27-2022 Emergency department patient visit LAINE DAMON [facility] Procedures Date Procedure Procedure Detail Performing Clinician Start: 08-13-2024 Basic metabolic panel calcium total Glenn Valenzuela MD Work Phone: Start: 08-12-2024 Thoracentesis needle/cath pleura w/imaging Isidro Delgado MD Work Phone: Start: 08-12-2024 Cul bact xcpt urine blood/stool aerobic isol Isidro Delgado MD Work Phone: Start: 08-12-2024 Basic metabolic panel calcium total Glenn Valenzuela MD Work Phone: Start: 08-11-2024 Ct abdomen & pelvis w/contrast material Jaylyn Moore MD Work Phone: Start: 08-11-2024 Radiologic exam upr gi trc single contrast study Glenn Valenzuela MD Work Phone: Start: 08-11-2024 Comprehensive metabolic panel Teresita jenkins MD Work Phone: Start: 08-10-2024 End: 08-10-2024 Laps abd prtm&omentum dx w/wo spec br/wa spx Zara Pozsgay DO Work Phone: Start: 08-10-2024 Ct abdomen & pelvis w/o contrast material Jaylyn Moore MD Work Phone: Start: 08-10-2024 Radiologic exam upr gi trc single contrast study Leona Vance MD Work Phone: Start: 08-10-2024 Basic metabolic panel calcium total Leona Vance MD Work Phone: Start: 08-10-2024 Manual Differential panel - Blood Coretta Vance MD Work Phone: Start: 08-09-2024 End: 08-10-2024 Laps abd prtm&omentum dx w/wo spec br/wa spx Zara Postephanisggisella DO Work Phone: Start: 08-09-2024 Ct abdomen & pelvis w/contrast material Teresita Castaneda MD Work Phone: Start: 08-09-2024 Antibody screen PCP NONE Comment on above: Performed By: #### [id number] #### Barrel Turner: CARMEL HOWARD ([phone]) [facility] [address] [place] [address] Start: 08-09-2024 ABO and Rh group [Type] in Blood by Confirmatory method Dano James PA-C Work Phone: Start: 08-09-2024 Blood typing serologic abo Dano James PA-C Work Phone: Start: 08-09-2024 Comprehensive metabolic panel Dano long PA-C Work Phone: Start: 08-09-2024 Ecg routine ecg w/least 12 lds i&r only Dano James PA-C Work Phone: Start: 08-09-[address] Dante Gurrola DO Work Phone: Start: 08-09-2024 SARS-CoV-2, Influenza & RSV (PCR) Dr. Abeba Gurrola DO Work Phone: Start: 08-09-2024 CT of abdomen and pelvis without contrast Dr. Dante uGrrola DO Work Phone: Start: 08-09-2024 CT angiography of chest with contrast Dr. Dante Gurrola DO Work Phone: Start: 08-09-[address] Dante Gurrola DO Work Phone: Start: 08-09-2024 Serum inorganic phosphate measurement Dr. Dante Gurrola DO Work Phone: Start: 08-07-2024 Computed tomography of abdomen and pelvis with intravenous contrast Dr. Dante Gurrola DO Work Phone: Start: 08-07-2024 End: 08-07-2024 Plain X-ray abdomen Dr. Dante Gurrola DO Work Phone: Start: 08-07-[address] Dante gonzalez DO Work Phone: Start: 08-07-[address] Dante Gurrola DO Work Phone: Start: 08-05-[address] Dante gonzalez DO Work Phone: Start: 08-05-2024 Urnls dip stick/tablet reagent auto microscopy Dr. Dante Gurrola DO Work Phone: Start: 08-05-2024 Computed tomography of abdomen and pelvis with intravenous contrast Dr. Dante Gurrola DO Work Phone: Start: 05-06-2024 Computed tomography of abdomen and pelvis with intravenous contrast Dr. Dante Gurrola DO Work Phone: Start: 05-06-2024 Urnls dip stick/tablet reagent auto microscopy Dr. Dante Gurrola DO Work Phone: Start: 05-06-[address] Dante Gurrola DO Work Phone: Start: 05-06-2024 Measurement of renal function Dr. Dante Gurrola DO Work Phone: Comment on above: GFR Calc Start: 06-27-2022 Urinalysis LAINE HARMAN Comment on above: Result Comment: URINALYSIS Performed By: #### 2 [id number] #### [facility],[address] [place] [address] Plan of Treatment Date Care Activity Detail Author Start: 2029 RSV Immunization for Adults (1 - 1-dose 75+ series) RSV Immunization for Adults (1 - 1-dose 75+ series) [facility] Start: 12-04-2024 Influenza vaccination Influenz a Vaccine (Season Ended) [facility] Start: 09-28-2024 End: 09-28-2024 Patient encounter procedure 09/28/2024 9:30 AM EDT Office Visit [facility] [place] [address] [place] [address] Zara Spann, DO [address] [place] [address] [facility] [place] Start: 08-24-2024 End: 08-24-2024 Patient encounter procedure 08/24/2024 9:45 AM EDT Office Visit [facility] [place] [address] [place] [address] Zara Spann, DO [address] [place] [address] [facility] [place] Start: 08-09-2024 Patient discharge [facility] Start: 08-09-2024 Catheterization of vein [facility] Start: 08-09-2024 Medication not administered [facility] Start: 08-09-2024 Preoperative care [facility] Start: 08-09-2024 [facility] Start: 08-09-2024 Referral to general surgeon [facility] Start: 08-09-2024 Referral to vascular surgeon [facility] Start: 08-09-2024 [facility] Start: 08-08-2024 Following clinical p athway protocol [facility] Start: 08-08-2024 [facility] Start: 08-07-2024 Oxygen therapy [facility] Start: 08-07-2024 Administration of bl ood product [facility] Start: 08-07-2024 [facility] Start: 08-06-2024 Administration of bl ood product [facility] Start: 08-06-2024 Transfusion of red b lood cells [facility] Start: 08-05-2024 [facility] Start: 08-05-2024 Application of intermittent pneumatic compression device [facility] Start: 08-05-2024 Following clinical p athway protocol [facility] Start: 08-05-2024 Ambulation without limitation [facility] Start: 08-05-2024 Assessment of risk o f venous thromboembolism [facility] Start: 08-05-2024 Insertion of cathete r into peripheral vein [facility] Start: 08-05-2024 Providing care accor ding to standard [facility] Start: 08-05-2024 Referral to gastroenterology service [facility] Start: 08-05-2024 [facility] Start: 08-05-2024 Admission procedure [facility] Start: 05-06-2024 [facility] Start: 12-05-2023 COVID-19 Vaccine ( season) COVID-19 Vaccine ( season) [facility] Start: 2004 Pneumococcal Vaccine : 50+ Years (1 of 1 - PCV) Pneumococcal Vaccine: 50+ Years (1 of 1 - PCV) [facility] Start: 2004 Zoster Vaccines (1 of 2) Zoste r Vaccines (1 of 2) [facility] Start: 1973 DTaP/Tdap/Td Vaccine s (1 - Tdap) DTaP/Tdap/Td Vaccines (1 - Tdap) [facility] Start: 1972 Hepatitis C screening Hepatitis C Sc reening [facility] Start: 1966 Depression Screening Depression Scre ening [facility] Start: 1954 Lipid panel Lipid Panel [facility] Start: 1954 Screening for malign ant neoplasm of colon [facility] End: 08-11-2024 Aerobic and Anaerobic Culture with Stain [facility] Comment on above: Once (Lab) for 1 Occ urrences starting 08/11/2024 until 08/11/2024 Bacteria identified in Unspecified specimen by Aerobe culture Culture, Aerobic Bacteria with Gram Stain Microbiology Routine 08/12/2024 10:20 AM EDT [facility] End: 08-11-2024 Bacteria identified in Unspecified specimen by Anaerobe culture [facility] Comment on above: Once for 1 Occurrenc es starting 08/11/2024 until 08/11/2024 End: 08-09-2024 Helicobacter pylori Ag [Presence] in Stool by Immunoassay H. pylori Stool Antigen Microbiology Routine Once (Lab) for 1 Occurrences starting 08/09/2024 until 08/09/2024 [employer] Work Phone: Comment on above: Once (Lab) for 1 Occ urrences starting 08/09/2024 until 08/09/2024 Patient Education Abdominal Pain Eating a High-Fiber Diet ED Constipation (Adult) [facility] Work Phone: Patient referral [facility] Work Phone: Tissue exam [facility] [employer] Comment on above: Release Upon Orderin g for 1 Occurrences starting 08/10/2024, 1 completed End: 08-11-2024 XR Abdomen Single view [employer] Work Phone: Comment on above: Once for 1 Occurrenc es starting 08/11/2024 until 08/11/2024 Payers Date Payer Category Payer Commercial Managed C are - [facility] [id number] 2024 Self-pay 2024 Unknown [id number] Unknown [id number]. [id number] Unknown [id number]. [id number] Unknown [id number] 2..[id number]. 2.462 Unknown [id number] [id number]. 2.462 Unknown [id number] [id number]. 2.462 Unknown [id number] [id number]. 2.462 Unknown [id number] [id number]. 2.462 Unknown [id number] [id number]. 2.462 Unknown [id number] [id number]. 2.462 Unknown [id number] 2.16.840.1.759485.3.579. 2.462 Unknown [id number] [id number]. 2.462 Unknown [id number] 2.16.840.1.141094.3.579. 2.462 Unknown [id number] [id number]. 2.462 Unknown [id number] [id number]. 2.462 Unknown [id number] [id number]. 2.462 Social History Date Type Detail Facility Start: 08-05-2024 End: 08-12-2024 Tobacco smoking status [facility] Never smoked tobacco (finding) [facility] Start: 01-22-2020 Alcohol Alcohol [facility] Start: 01-22-2020 Drugs Drugs [facility] Start: 01-22-2020 Lives Lives [facility] Start: 01-22-2020 Tobacco Use Tobacco Use [facility] Start: 1955 Sex Assigned At Male [facility] Start: 08-12-2024 Tobacco use and exposure Smoke less tobacco non-user [facility] Start: 08-12-2024 End: 08-24-2024 Alcoholic beverage intake Current drinker of alcohol (finding) [facility] Start: 08-12-2024 End: 08-25-2024 Alcoholic beverage intake [facility] Start: 08-12-2024 End: 08-25-2024 [facility] Utilities [facility] Has the [employer], [place], or water [employer] threatened to shut off services in your home in past 12Mo No [place] [facility] How often to you hav e a drink containing alcohol? 2-3 time sa week [facility] How many standard dr inks containing alcohol do you have on a typical day? 1 or 2 [facility] How often do you hav e 6 or more drinks on 1 occasion? Never [facility] (I/We) worried wheth er (my/our) food would run out before (I/we) got money to buy more. Never true [facility] [employer] In the past 12 month s, has lack of transportation kept you from medical appointments or from getting medications? No [facility] Start: 1955 Sex assigned at Not on file S [facility] Start: 08-09-2024 Sex Male (finding) [facility] Medical Equipment Procedure Code Equipment Code Equipment Original Text Equipment Identifier Dates EGD, with monitored anesthesia care Gastrointestinal endoscopic clip, long-term, non-bioabsorbable ()[id number] FDA Start: 08-07-2024 EGD, with monitored anesthesia care Gastrointestinal endoscopic clip, long-term, non-bioabsorbable ()[id number] FDA Start: 08-07-2024 EGD, with monitored anesthesia care Bare-metal duodenal stent ()[id number] FDA Start: 08-07-2024 EGD, with monitored anesthesia care Ligation clip, metallic ()[id number] FDA Start: 08-07-2024 Vena cava filter , temporary/permanent ()[id number] FDA Start: 08-09-2024 Goals Date Patient Goal Desired Activity /State Functional Status Date Assessment Result Facility 08-24-2024 Total score [AUDIT-C] 0 05/22/20 25 10:36 PM EDT Miles Redmond RN [facility] 08-09-2024 Functional status Ambulates [facility] Work Phone: 08-08-2024 Functional status None [facility] Work Phone: [facility] Mental Status Date Assessment Result Facility 08-09-2024 Cognitive function Voice/Name [facility] Work Phone: Clinical Notes 06-29-2022 to 08-25-2024 Telephone Encounter - Nikki Gonzales PA-C - 08/25/2024 7:55 AM EDTTelephone Encounter - Nikki Gonzales PA-C - 08/25/2024 7:55 AM EDTMalbania Spann DO - 08/24/2024 9:45 AM EDT Note Date & Type Note Facility 08-25-2024 Note I (Zara Spann) per sonally supervised the physician publishing specialist in the evaluation and development of a treatment plan for this patient. I personally discussed the review of systems and interviewed the patient along with performing a physical examination. In addition, I discussed the patient's condition and treatment options with them when possible. I have also reviewed and agree with the past medical, family and social history and nursing notes unless otherwise noted. All of the patient's questions were answered and visual aides were used when possible. The visit was spent discussing/counseling the patient, reviewing data, coordinating care, reviewing available imaging and creating a plan. The patient was seen and examined independently and relevant data reviewed by myself. A full chart review was performed when available. At times this note may reflect a late entry to the visit that occurred on the date noted below ASSESSMENT: patient seen an examined while he was in the vascular lab. Presented last evening with sudden onset left lower quadrant abdominal pain as well as lower extremity edema. Patient had a fever of 101.9. He was concerned and came to the emergency department. He?s having normal bowel function. No dyspnea, still mild left lower quadrant pain. CT scan personally reviewed, no acute changes. Left plural fusion has resolved. Left upper quadrant inflammation has also resolved. PLAN: OK for diet, pain control, OK for discharge. Plan for stent removal in the next couple of weeks with Dr. April Tracy. [facility] 08-25-2024 Note Discharge Summary Laine Garcia : 1955 ADMIT DATE: 08/24/2024 DISCHARGE DATE: 08/25/2024 PRIMARY CARE PHYSICIAN: Dante Gurrola VISIT STATUS: Observation CODE STATUS: Full Code DISCHARGE DIAGNOSES: Principal Problem: Abdominal pain HOSPITAL COURSE: Laine is a 69 y.o. male with past medical history below who initially presented with complaints of shortness of breath, right lower extremity pain, and chest pain, which have all resolved prior to admission. He now complains of left lower quadrant pain, rates it a 3/10. He also states he had a fever of 101.5 F at home, but afebrile here. Patient was recently discharged on 08/13/24 after diagnostic laparoscopy 08/09 and laparoscopic wedge resection of gastric perforation on 08/10. Post-op course was uncomplicated and he had follow up yesterday morning with no complaints. Labs essentially unremarkable today, unchanged from discharge if not slightly improved. CT imaging negative for any acute process, showed post-surgical findings. Patient concerned about ongoing LLQ pain, will admit to CDU for serial abdominal exams. CTA chest showed no acute intrathoracic process. No pulmonary artery embolus. CT A/P showed "no free air and no free fluid. Gastric perforation repair 08/10/2024. Stable appearance of the gastroduodenal stent with intraluminal fluid and air (stent placed for a bleeding duodenal ulcer)". Today patient continued to endorse LLQ abdominal pain. A repeat CT A/P was ordered with results showing no acute process. Stable appearance of the abdomen since yesterday's study. General Surgery was consulted and evaluated patient. Per Dr. Spann's note, "OK for diet, pain control, OK for discharge. Plan for stent removal in the next couple of weeks with Dr. April Tracy". Venous duplex of RLE was ordered as patient did experience right calf pain yesterday. Results showed: Acute occlusive deep vein thrombosis in the right gastrocnemius and posterior tibial veins. Acute occlusive superficial vein thrombosis in the thigh region of the right great saphenous vein and in the right small saphenous vein. Discussed with General Surgery, okay for anticoagulation therapy. Discussed with Dr. Olegario Ch. Patient was initiated on Apixaban 10 mg BID for 7 days followed with 5 mg BID for 90 days. Patient was discharged to home in stable condition. SIGNIFICANT DIAGNOSTIC STUDIES: CTA chest, CT A/P, RLE venous duplex CONSULTANTS: General Surgery RECOMMENDED NEXT STEPS: Advised to follow up with PCP in one week. Has follow up appointment with Dr. Spann on 09/28/2024 DISCHARGE MEDICATIONS: Medication List START taking these medications apixaban 5 MG tablet Commonly known as: Eliquis Take 2 tablets (10 mg) by mouth 2 times daily for 7 days, THEN 1 tablet (5 mg) 2 times daily. Start taking on: August 25, 2024 CONTINUE taking these medications dicyclomine 20 MG tablet Commonly known as: Bentyl docusate sodium 100 MG capsule Commonly known as: Colace multivitamin with minerals tablet Where to Get Your Medications These medications were sent to [facility] [address] [place] [id number] Hours: Wednesday to Wednesday 10 am to 6 pm apixaban 5 MG tablet DIET: Adult diet Regular ACTIVITY: No restriction. COMPLEXITY OF FOLLOW UP: [] Moderate Complexity: follow up within 7-14 calendar days (71957) [x] Severe Complexity: follow up within 7 calendar days (55587) FOLLOW UP TESTING, PENDING RESULTS OR REFERRALS AT TRANSITIONAL CARE VISIT: [] Yes [x] No PENDING STUDIES: none DISPOSITION: Home FACILITY/HOME CARE AGENCY NAME: n/a Follow up with Dante Gurrola [id number] [facility] [address] Zara Spann DO [address] [place] [address] [address] [facility] [address] Follow up on 09/28/2024 YOU HAVE AN APPOINTMENT SCHEDULED FOR 09/28/2024 AT 9:30 AM INSTRUCTIONS TO MA/SW: Please call patient on day after discharge (must document patient contacted within 2 business days of discharge). FOLLOW UP QUESTIONS FOR MA/SW: 1. Did you get medications filled and taking them as instructed from discharge? 2. Are you following your discharge instructions from your hospital stay? 3. Please confirm patient is scheduled for a follow up appointment within the above time frame. DISCHARGE TIME: > 30 minutes SIGNED: BARRIE Coleman CNP 08/25/2024, 2:06 PM [employer] [facility] 08-25-2024 Telephone encounter Note Patient currently in the hospital [place] Phone: 08-25-2024 Miscellaneous Notes Patient currently in the hospital S: Patient spoke with CAC nurse regarding post op B: Onset of symptoms/concern this afternoon 08/09/24: LAPAROSCOPY, DIAGNOSTIC, LYSIS OF ADHESIONS, EGD 08/10/24: LAPAROSCOPIC WEDGE RESECTION OF STOMACH, EGD KUSUM: 08/24/24 post-op visit A: Daughter states patient started with chills this afternoon and then foot to knee sharp pain. At 630pm temp 101.9, BP 119/76, HR99, and he took dose Tylenol. At 9pm temp 101.5 feels like he can't take deep breath on incentive spirometer (no problem using prior), and having discomfort on KRISTIN she thinks mild-moderate pain. She denies swelling, discoloration. Patient has history of filter IVC. Daughter requesting message be left on voicemail with recommendation. R: Secure chat to on-call to Dr Gandara, he advised ED for evaluation. Daughter called and voicemail left with recommendation [facility] ED. No further needs at this time. Reason for Disposition Fever > 100.4 F (38.0 C) Protocols used: Post-Op Symptoms and [id number] documented in this encounter [facility] 08-25-2024 Note CDU History and Phys ical Admit Date: 08/24/2024 PCP: Dante Gurrola CHIEF COMPLAINT: abdominal pain Limitations to history: None Outside historians: None HISTORY OF PRESENT ILLNESS: Laine is a 69 y.o. male with past medical history below who initially presented with complaints of shortness of breath, right lower extremity pain, and chest pain, which have all resolved prior to admission. He now complains of left lower quadrant pain, rates it a 06/12. He also states he had a fever of 101.5 F at home, but afebrile here. Patient was recently discharged on 08/13/24 after diagnostic laparoscopy 08/09 and laparoscopic wedge resection of gastric perforation on 08/10. Post-op course was uncomplicated and he had follow up yesterday morning with no complaints. Labs essentially unremarkable today, unchanged from discharge if not slightly improved. CT imaging negative for any acute process, showed post-surgical findings. Patient concerned about ongoing LLQ pain, will admit to CDU for serial abdominal exams. REVIEW OF SYSTEMS A focused review of systems was performed and is negative except as stated in above HPI. Past Medical & Social History Medical History[1] Surgical History[2] Family History[3] Social History Socioeconomic History Marital status: Spouse name: Not on file Number of children: Not on file Years of education: Not on file Highest education level: Not on file Occupational History Not on file Tobacco Use Smoking status: Never Smokeless tobacco: Never Vaping Use Vaping status: Never Used Substance and Sexual Activity Alcohol use: Yes Alcohol/week: 2.0 standard drinks of alcohol Types: 2 Glasses of wine per week Drug use: Never Sexual activity: Not on file Other Topics Concern Not on file Social History Narrative Not on file Social Drivers of Health Financial Resource Strain: Not on file Food Insecurity: No Food Insecurity (08/12/2024) Hunger Vital Sign Worried About Running Out of Food in the Last Year: Never true Ran Out of Food in the Last Year: Never true Transportation Needs: No Transportation Needs (08/12/2024) PRAPARE - Transportation Lack of Transportation (Medical): No Lack of Transportation (Non-Medical): No Physical Activity: Not on file Stress: Not on file Social Connections: Not on file Intimate Partner Violence: Not At Risk (08/25/2024) Humiliation, Afraid, Rape, and Kick questionnaire Fear of Current or Ex-Partner: No Emotionally Abused: No Physically Abused: No Sexually Abused: No Housing Stability: Low Risk (08/12/2024) Housing Stability Vital Sign Unable to Pay for Housing in the Last Year: No Number of Times Moved in the Last Year: 0 Homeless in the Last Year: No Current Medications[4] Allergies[5] PHYSICAL EXAM VITAL SIGNS: BP 134/82 (BP Location: Right arm, Patient Position: Lying) Pulse 73 Temp 36.3 ?C (97.3 ?F) (Temporal) Resp 16 Wt 75.6 kg (166 lb 11.2 oz) SpO2 96% BMI 23.25 kg/m? Pulse Ox: SpO2 Av.3 % Min: 96 % Max: 99 % Supplemental O2: Physical Exam General: Vitals noted. NAD, nontoxic, afebrile. HEENT: Normocephalic, atraumatic, sclerae clear, moist mucous membranes, neck supple Cardiac: Regular rate and rhythm, no murmurs Lungs: Clear to auscultation bilaterally, no wheezing Abdomen: Soft, LLQ tenderness, normoactive bowel sounds, no rebound or guarding, no rigidity Extremities: No edema Skin: Warm and dry Neuro: Alert and oriented ?3, PERRLA, EOMs intact Psych: Cooperative, normal mood and affect LABS: Labs Reviewed COMPREHENSIVE METABOLIC PANEL - Abnormal Result Value SODIUM 135 (*) POTASSIUM 4.4 CHLORIDE 105 CARBON DIOXIDE 20 (*) ANION GAP 10 UREA NITROGEN 19 CREATININE 0.79 GLUCOSE 108 CALCIUM 8.7 (*) AST (SGOT) 28 ALT 15 ALKALINE PHOSPHATASE 83 ALBUMIN 2.9 (*) BILIRUBIN, TOTAL 0.4 TOTAL PROTEIN 6.4 eGFR >90.0 CBC WITH AUTO DIFFERENTIAL - Abnormal Auto WBC 5.9 RBC 3.68 (*) Hemoglobin 10.7 (*) Hematocrit 33.0 (*) MCV 89.7 MCH 29.1 MCHC 32.4 RDW 14.7 Platelets 365 MPV 9.1 MANUAL DIFFERENTIAL (CELLAVISION) - Abnormal RBC Morphology abnormal Poikilocytes Slight (*) Ovalocytes Slight (*) Acanthocytes Slight (*) Neutrophils % 86 (*) Bands % 2 (*) Lymphocytes % 7 (*) Monocytes % 4 (*) Basophils % 1 Absolute Neutrophil Count 5.2 Bands Absolute 0.1 (*) Lymphocytes Absolute 0.4 (*) Monocytes Absolute 0.2 Basophils Absolute 0.1 Neutrophils Manual 87 Lymphocytes Manual 7 Monocytes Manual 4 Eosinophils Manual Basophils Manual 1 Bands Manual 2 Metamyelocytes Manual Myelocytes Manual Promyelocytes Manual Blasts Manual Atypical Lymphocytes Manual Unclassified Cells, Manual HEPATIC FUNCTION PANEL - Abnormal BILIRUBIN, TOTAL 0.4 BILIRUBIN, DIRECT 0.2 ALKALINE PHOSPHATASE 75 AST (SGOT) 19 ALT 12 ALBUMIN 2.6 (*) TOTAL PROTEIN 5.3 (*) LIPASE - Abnormal LIPASE 60 (*) COMPL (more content not included)... [facility] 08-24-2024 Telephone encounter Note S: Patient spoke with [facility] nurse regarding post op B: Onset of symptoms/concern this afternoon 08/09/24: LAPAROSCOPY, DIAGNOSTIC, LYSIS OF ADHESIONS, EGD 08/10/24: LAPAROSCOPIC WEDGE RESECTION OF STOMACH, EGD KUSUM: 08/24/24 post-op visit A: Daughter states patient started with chills this afternoon and then foot to knee sharp pain. At 630pm temp 101.9, BP 119/76, HR99, and he took dose Tylenol. At 9pm temp 101.5 feels like he can't take deep breath on incentive spirometer (no problem using prior), and having discomfort on KRISTIN she thinks mild-moderate pain. She denies swelling, discoloration. Patient has history of filter IVC. Daughter requesting message be left on voicemail with recommendation. R: Secure chat to on-call to Dr Gandara, he advised ED for evaluation. Daughter called and voicemail left with recommendation [facility] ED. No further needs at this time. Reason for Disposition Fever > 100.4 F (38.0 C) Protocols used: Post-Op Symptoms and [id number] [facility] 08-24-2024 History of Present illness Narrative Images from the original note were not included. [facility] Advanced Laparoscopic Surgery Patient Name: Laine Garcia Date: 08/24/2024 S: Laine Garcia follows up for a post operative visit after undergoing a diagnostic laparoscopy w/ FLORINA, EGD on 08/09/24 and takeback lap wedge resection of stomach, FLORINA for gastric perforation on 08/10/24. He is doing well without any major postoperative complications. His pain control is well controlled and he is not asking for narcotic refills. His bowel function has returned to normal without constipation or diarrhea. His appetite is returning to normal and he does not report any dysphagia, nausea or vomiting. Patient is doing well since being discharged to home. No nausea no vomiting. Tolerating diet. He does get fatigued quite easily however his left upper quadrant symptoms and pain have completely resolved. His color has improved Medical History[1] Surgical History[2] Family History[3] Allergies[4] Current Medications[5] O: BP 118/69 (BP Location: Right arm, Patient Position: Sitting, BP Cuff Size: Adult) Pulse 72 Temp 36.5 C (97.7 F) (Temporal) Ht 5' 11" (1.803 m) Wt 169 lb 6.4 oz (76.8 kg) SpO2 99% BMI 23.63 kg/m Physical Exam: The wounds are healing well. There is no evidence of infection, seroma, erythema or hernia Pathology: Addendum Immunohistochemical stain for Helicobacter pylori organisms was performed, and is negative Addendum electronically signed by Valeria Reyez MD on 08/22/2024 at 1554 EDT Final Diagnosis STOMACH, PARTIAL EXCISION - GASTRIC MUCOSA WITH FOCAL MUCOSAL NECROSIS, PERFORATION, AND SEROSITIS. Comment: The background gastric mucosa does not demonstrate significant inflammatory changes, but immunohistochemical stain for Helicobacter pylori organisms will be performed and reported in an addendum. Assessment/Plan Laine was seen today for post-op. Diagnoses and all orders for this visit: Encounter for postoperative care (Primary) Laine Garcia is a 69 y.o. male presenting for postoperative evaluation after undergoing diagnostic laparoscopy w/ FLORINA, EGD on 08/09/24 and takeback lap wedge resection of stomach, FLORINA for gastric perforation on 08/10/24. He may advance diet as tolerated. He may increase their activity to a normal level yet refrain from lifting greater than 15# for one month after surgery. Follow-up in a few weeks with Dr. Tracy The patient was seen and examined independently and relevant data reviewed by myself. A full chart review was performed. Had a long discussion with Dr. Carabjal regarding removal of the duodenal stent. She will plan for this as an outpatient in the next few weeks. I will be available for assistance should it be necessary. Patient Care Team: Dante Gurrola as PCP - General (Internal Medicine) [1] Past Medical History: Diagnosis Date MVP (mitral valve prolapse) Pulmonary embolism (HCC) [2] Past Surgical History: Procedure Laterality Date HERNIA REPAIR OTHER SURGICAL HISTORY N/A 08/10/2024 APAROSCOPY, DIAGNOSTIC, LYSIS OF ADHESIONS, EGD SHOULDER SURGERY [3] No family history on file. [4] Allergies Allergen Reactions Penicillins [5] Current Outpatient Medications Medication Sig Dispense Refill dicyclomine (Bentyl) 20 MG tablet Take 20 mg by mouth 3 times daily. docusate sodium (Colace) 100 MG capsule Take 100 mg by mouth 2 times daily. Multiple Vitamins-Minerals (multivitamin with minerals) tablet Take 1 tablet by mouth daily. apixaban (Eliquis) 5 MG tablet Take 2 tablets (10 mg) by mouth 2 times daily for 7 days, THEN 1 tablet (5 mg) 2 times daily. 208 tablet 0 No current facility-administered medications for this visit. documented in this encounter [email or web address] 08-17-2024 Telephone encounter Note Spoke to Dr. Spann. Spoke to Dr. Gurrola, patient's PCP, requesting info regarding whether patient is safe to return on anticoagulation. Per Dr. Spann, patient ok to resume anticoagulation therapy at this time and we recommend patient f/u with his GI team for further management. Patient is not currently hospitalized, he was just trying to catch up on patient's recent hospitalization. Patient scheduled for f/u with us on 08/24. No further questions at this time. [facility] [email or web address] Work Phone: 08-17-2024 Miscellaneous Notes Spoke to Dr. Spann. Spoke to Dr. Gurrola, patient's PCP, requesting info regarding whether patient is safe to return on anticoagulation. Per Dr. Spann, patient ok to resume anticoagulation therapy at this time and we recommend patient f/u with his GI team for further management. Patient is not currently hospitalized, he was just trying to catch up on patient's recent hospitalization. Patient scheduled for f/u with us on 08/24. No further questions at this time. Dr Gurrola wants to know if the ulcer is fixed for him to be on Aspirin for the PE. States we missed the ball somewhere. Patient does not have a PCP right now. Dr Gurrola wants to know If everything is ok for him to be on it. DP Per chart review, patient was advised to follow up with PCP (if he has one) to discuss resuming aspirin versus anticoagulation for history of PE. He was not discharged home with anticoagulation. Otherwise will need to establish with a PCP. Thanks Dr Dante Gurrola called to find out some information about the pt. He is in [facility] and was told he is suppose to be on a blood thinner. The GI Dr at [facility] is against him being on one if he has an ulcer. would like a call back with some clarification, he stated he has tried getting records from [facility] and the medical records department said they had no records. 's cell number is [phone]. documented in this encounter [facility] 08-17-[address] Gurrola wants to know if the ulcer is fixed for him to be on Aspirin for the PE. States we missed the ball somewhere. Patient does not have a PCP right now. Dr Gurrola wants to know If everything is ok for him to be on it. DP [facility] 08-17-2024 Telephone encounter Note Per chart review, patient was advised to follow up with PCP (if he has one) to discuss resuming aspirin versus anticoagulation for history of PE. He was not discharged home with anticoagulation. Otherwise will need to establish with a PCP. Thanks [facility] 08-17-[address] Dante Gurrola called to find out some information about the pt. He is in [facility] and was told he is suppose to be on a blood thinner. The GI Dr at [facility] is against him being on one if he has an ulcer. would like a call back with some clarification, he stated he has tried getting records from [facility] and the medical records department said they had no records. 's cell number is [phone]. [facility] 08-13-2024 Nurse Note Discharge instructions reviewed with the patient. Patient verbalized an understanding. Iv was removed from the patient and all personal belongings were sent home with him. Patient was transported home by family. [facility] 08-13-2024 Nurse Note Discharge instructions reviewed with the patient. Patient verbalized an understanding. Iv was removed from the patient and all personal belongings were sent home with him. Patient was transported home by family. documented in this encounter [facility] 08-13-2024 Plan of care note Problem: Pain - Adult Goal: Verbalizes/displays adequate comfort level or baseline comfort level Outcome: Adequate for Discharge Problem: Safety - Adult Goal: Free from fall injury Outcome: Adequate for Discharge Problem: Discharge Planning Goal: Discharge to home or other facility with appropriate resources Outcome: Adequate for Discharge Problem: Problem Interventions Goal: Assess Nutritional Intake Outcome: Adequate for Discharge Problem: Knowledge Deficit Goal: Patient/family/caregiver demonstrates understanding of disease process, treatment plan, medications, and discharge instructions Outcome: Adequate for Discharge Problem: Potential for Falls Goal: I will remain free of falls Outcome: Adequate for Discharge Problem: Discharge Barriers Goal: My discharge needs are met Outcome: Adequate for Discharge [facility] 08-13-2024 Miscellaneous Notes Problem: Pain - Adult Goal: Verbalizes/displays adequate comfort level or baseline comfort level Outcome: Adequate for Discharge Problem: Safety - Adult Goal: Free from fall injury Outcome: Adequate for Discharge Problem: Discharge Planning Goal: Discharge to home or other facility with appropriate resources Outcome: Adequate for Discharge Problem: Problem Interventions Goal: Assess Nutritional Intake Outcome: Adequate for Discharge Problem: Knowledge Deficit Goal: Patient/family/caregiver demonstrates understanding of disease process, treatment plan, medications, and discharge instructions Outcome: Adequate for Discharge Problem: Potential for Falls Goal: I will remain free of falls Outcome: Adequate for Discharge Problem: Discharge Barriers Goal: My discharge needs are met Outcome: Adequate for Discharge Problem: Pain - Adult Goal: Verbalizes/displays adequate comfort level or baseline comfort level Outcome: Progressing Problem: Safety - Adult Goal: Free from fall injury Outcome: Progressing Problem: Discharge Planning Goal: Discharge to home or other facility with appropriate resources Outcome: Progressing Problem: Problem Interventions Goal: Assess Nutritional Intake Outcome: Progressing Problem: Knowledge Deficit Goal: Patient/family/caregiver demonstrates understanding of disease process, treatment plan, medications, and discharge instructions Outcome: Progressing Problem: Potential for Falls Goal: I will remain free of falls Outcome: Progressing Problem: Discharge Barriers Goal: My discharge needs are met Outcome: Progressing Problem: Discharge Planning Goal: Discharge to home or other facility with appropriate resources 08/12/2024 1725 by Mervat Lala RN Outcome: Progressing 08/12/2024 0702 by Mervat Lala RN Outcome: Not Progressing Interventional Radiology Brief Postprocedure Note Procedure: US guided thoracentesis Preprocedure Diagnosis: Left pleural effusion Postprocedure Diagnosis: no change Staff: Staff Role Beto Jackson MD, IR attending Description of procedure: US-guided left thoracentesis Estimated Blood Loss: Minimal Medications Medications (Filter: Administrations occurring from 1125 to 1125 on 08/12/24) As of 08/12/24 1125 None Specimens ID Type Source Tests Collected by Time 1 : STOMACH PERFORATION Tissue Stomach TISSUE EXAM Zara Spann DO 08/10/2024 1706 Findings: small-moderate left pleural effusion Plan: routine postop care Complications: None Anesthesia: local See detailed result report with images in PACS. The patient tolerated the procedure well without incident or complication and is in stable condition. Beto Jackson MD Interventional Radiology Pager: Problem: Pain - Adult Goal: Verbalizes/displays adequate comfort level or baseline comfort level Outcome: Progressing Problem: Safety - Adult Goal: Free from fall injury Outcome: Progressing Problem: Discharge Planning Goal: Discharge to home or other facility with appropriate resources Outcome: Progressing Problem: Pain - Adult Goal: Verbalizes/displays adequate comfort level or baseline comfort level Outcome: Progressing Problem: Safety - Adult Goal: Free from fall injury Outcome: Progressing Problem: Discharge Planning Goal: Discharge to home or other facility with appropriate resources Outcome: Progressing Images from the original note were not included. Patient: Laine Garcia Date of : 1955 Service Date: 08/10/2024 PROCEDURE: Laparoscopic wedge resection of stomach Laparoscopic enterolysis EGD 19 Chinese drain placement. PREOPERATIVE DIAGNOSES: Patient Active Problem List Diagnosis Duodenal perforation (CMS/HCC) (HCC) Duodenal ulceration Pneumoperitoneum Gastric perforation POSTOPERATIVE DIAGNOSES: Same ANESTHESIA: General SURGEON: DR. Zara Spann HAT AND CAP OPENER: Dr. Sandy Gallardo FLUIDS: 1000 cc crystalloid ESTIMATED BLOOD LOSS: 10 cc URINE OUTPUT: Not recorded. PREOPERATIVE MEDICATIONS: 2 g Ancef INDICATIONS FOR PROCEDURE: The patient is a 69 y.o. male with complex medical history with recent bleeding duodenal ulcer with clipping cautery and stenting. The patient was transferred here from an outside facility for possible gastric perforation. The patient was taken for diagnostic laparoscopy last evening however no abnormalities were noted. The patient was reevaluated today with upper GI and repeat CT scan and was noted to have a continued gastric perforation. He was subsequently brought to the operative suite for further evaluation. He was placed in split leg position. General endotracheal anesthesia was induced. His bony prominences were protected. We prepped and draped the abdomen. We used the remaining incisions from yesterday evening. Optical trocar was inserted without difficulty in the left upper quadrant. The abdominal cavity was insufflated to 15 mm of pneumoperitoneum. The remainder of the 4 ports were then placed along with a subxiphoid [place] liver retractor. Again there was no intra-abdominal contamination. No pus no bilious fluid no exudative material in the abdomen. We very carefully began to dissected the hiatal hernia and the previous Elisa. We mobilized along the greater curvature the stomach using Enseal device. We identified the greater curve of the stomach sutured to the lesser curve of the stomach. These Ethibond sutures were transected. We continued lateral dissection on the right as well as the left to fully mobilize the fundus. This was difficult dissection along the diaphragmatic edge on the patient's left side due to significant scar tissue. We were however able to elevate the fundus and once we did this a pocket of fluid and contrast was noted adjacent to the spleen. This was a exudative walled off area. This was copiously irrigated and drained. Once the fundus was elevated into the field a perforation was noted within the fundus. This was a lateral and cephalad and was easily transected with a Endo ANDREW blue load stapler to close the gastrotomy. The specimen was then passed off the field. At this point we then insufflated the stomach. We very carefully evaluated all the superior surfaces of the posterior surfaces. The entire stomach was then dunked underwater to ensure there was no further perforations and they were not. There was complete hemostasis. At this point we then placed a 19 Chinese drain along the cephalad aspect of the spleen and the previous abscess cavity. This was brought up to the left upper quadrant trocar site. This trocar site was then closed using 2-0 silk suture. The abdominal cavity was then desufflated. 4-0 Monocryl was then placed to close the incisions. The patient was then extubated taken recovery in stable condition. Images from the original note were not included. Patient: Laine Garcia Date of : 1955 Service Date: 08/09/24 PROCEDURE: Diagnostic laparoscopy with laparoscopic enterolysis EGD PREOPERATIVE DIAGNOSES: Patient Active Problem List Diagnosis Duodenal perforation (CMS/HCC) (HCC) Duodenal ulceration Pneumoperitoneum Possible gastric perforation POSTOPERATIVE DIAGNOSES: Same ANESTHESIA: General SURGEON: DR. Zara Spann HAT AND CAP OPENER: Dr. Vance FLUIDS: 1000 cc crystalloid ESTIMATED BLOOD LOSS: 10 cc URINE OUTPUT: Not recorded. PREOPERATIVE MEDICATIONS: 3 Ancef INDICATIONS FOR PROCEDURE: The patient is a 69 y.o. male presents to [facility] from outside facility with a possible gastric perforation. CT scan was performed which revealed collection left quadrant with pleural effusion. Possible free air. The patient was brought to the op suite and placed in split leg position. His arms were out at his sides being careful to protect bony prominences. Began outpatient by making a left upper quadrant 5 mm incision after appropriate prep and drape and timeout. The abdominal cavity was entered without difficulty. Opening pressure was 3 mm pneumoperitoneum. The abdominal Was insufflated to 15 mm pneumoperitoneum. There is no abnormalities noted within the abdominal cavity. There was no fluid, no pus, no bilious fluid no other abnormalities. We then placed a mid abdominal 5 left upper quadrant 5 and a right sided 5 mm trocar. Very careful examination of the abdominal cavity was completed. The duodenum was normal. The area of the stent was clearly visualized however there was no abnormality around the duodenum. No evidence of perforation noted. At this point we then began to evaluate the left upper quadrant. There was substantial scar in this area with the. Patient's previous Elisa fundoplication. We mobilized the greater curve of the stomach to gain access to the lesser sac. There was no fluid or other abnormality in this area. We then mobilized the colon along the splenic flexure. There was no evidence of fluid or pus or abnormality in this area. There was no bilious fluid or other exudative process in the left upper quadrant. At this point not finding an obvious perforation we then insufflated the stomach using an endoscope. We took a careful survey while dunking the entire stomach under water. Once again no other abnormalities were noted. Being satisfied that there was no obvious perforation we did not take down the entire fundoplication or further evaluate up by the spleen as there was substantial scar tissue. At this point we then abandon the procedure with plans for postoperative upper GI and further evaluation. We desufflated the abdominal cavity. We closed incisions using 4 Monocryl. Patient extubated taken recovery in stable condition. Report called to H5. Patient: Laine Garcia : 1955 Date of Evaluation: 08/09/2024 ED Supervising Physician: Ganesh Earl MD I personally evaluated Laine Garcia and made/approved the management plan and take responsibility for the patient management. This will serve as my Supervisory note and shared attestation. I did perform a substantive portion of the visit including all aspects of the Medical Decision Making. I wore appropriate PPE for the entirety of this encounter. In brief, Laine Garcia is a 69 y.o. that presents to the emergency department as a transfer from an outside facility with concerns for perforated viscus. Patient was admitted to an outside facility 5 days ago after having a syncopal episode. States he has been having off-and-on abdominal pain for months. States that they found a bleeding ulcer on EGD and placed a stent secondary to the ulcer being in the duodenum.. States that the next day became short of breath and they found pulmonary emboli in bilateral lungs. They placed an IVC filter. States that he was in the EGD suit today for EGD secondary to bleeding. States that they did a CAT scan after the EGD secondary to concern for perforated viscus and saw air on the CAT scan. He was transferred here for surgical consult. For full details of the encounter please see the [facility] note dated same day. The differential diagnosis associated with this patient's presentation includes acute perforated viscus, acute GI bleed, acute electrolyte abnormality, acute pulmonary embolism. I personally discussed the patient's management with other clinicians: All diagnostic, treatment, and disposition decisions were made by myself in conjunction with the Resident. I also supervised hernandez portions of any procedures performed by the Resident. For all further details of the patient's emergency department visit, please see their documentation. (Comment: Please note this report has been produced using speech recognition software and may contain errors related to that system including errors in grammar, punctuation, and spelling, as well as words and phrases that may be inappropriate. If there are any questions or concerns please feel free to contact the dictating provider for clarification.) Ganesh Earl MD Acute Care [facility] CHIEF COMPLAINT Chief Complaint Patient presents with Shortness of Breath HISTORY OF PRESENT ILLNESS (Location/Symptom, Timing/Onset, Context/Setting, Quality, Duration, Modifying Factors, Severity) Note limiting factors. I wore appropriate PPE for the entirety of this encounter. Nursing Notes were reviewed. Limitations to history: None Outside historians: None REVIEW OF SYSTEMS Review of Systems Pertinent positives and negatives as per HPI. PAST MEDICAL HISTORY No past medical history on file. SURGICAL HISTORY Past Surgical History: Procedure Laterality Date OTHER SURGICAL HISTORY N/A 08/10/2024 APAROSCOPY, DIAGNOSTIC, LYSIS OF ADHESIONS, EGD CURRENT MEDICATIONS There are no discharge medications for this patient. ALLERGIES Penicillins FAMILY HISTORY No family history on file. SOCIAL HISTORY Social History Socioeconomic History Marital status: SCREENINGS Yaneth Coma Scale Best Eye Response: Spontaneous Best Verbal Response: Oriented Best Motor Response: Follows commands Yaneth Coma Scale Score: 15 PHYSICAL EXAM ED Triage Vitals [08/09/24 1856] Temp Heart Rate Resp BP 37.3 C (99.1 F) 78 16 (!) 147/96 SpO2 Temp src Heart Rate Source Patient Position 93 % -- -- -- BP Location FiO2 (%) -- -- Physical Exam Vitals and nursing note reviewed. Constitutional: General: He is not in acute distress. Appearance: He is well-developed. HENT: Head: Normocephalic and atraumatic. Eyes: Conjunctiva/sclera: Conjunctivae normal. Cardiovascular: Rate and Rhythm: Normal rate and regular rhythm. Pulmonary: Effort: Pulmonary effort is normal. Breath sounds: Normal breath sounds. Abdominal: Palpations: Abdomen is soft. Comments: Mild epigastric tenderness to palpation, no distention Musculoskeletal: General: No swelling. Cervical back: Neck supple. Skin: General: Skin is warm and dry. Neurological: Mental Status: He is alert. Psychiatric: Mood and Affect: Mood normal. DIAGNOSTIC RESULTS Procedures/EKG: ECG done August 09, 2024 at 7:17 PM and interpreted by me at 7:20 PM shows sinus rhythm, ventricular of 82 bpm, no ST segment elevation, nonspecific ST depression in lateral leads, QTc of 437 RADIOLOGY (Per Emergency Physician): Interpretation per the Radiologist below, if available at the time of this note: CT abdomen pelvis w contrast Final Result Addendum (preliminary) 1 of 1 Patient Name: LAINE GARCIA : 1955 Exam Date/Time: 08/09/2024 21:15 Procedure: CT ABDOMEN PELVIS W CONTRAST Ordering Provider: EARL JEFFREY Reason For Exam: CF duodenal perforation --------ADDENDUM #1 -------- Comparison is made to CTA of the abdomen and pelvis from 08/09/2024. Fluid in the LEFT upper quadrant around the spleen is about the same. Small amount of dense material, presumably from previous oral contrast administration, similar on the more recent CTA compared to today. No contrast extravasation seen around the duodenum currently. CRITICAL TEST RESULT COMMUNICATION: Notification of these findings was made to Dr. Spann via [employer] on 08/09/2024 10:10 PM EDT. Report Dictated on Electronically Signed By: Jose D Ayon MD Electronically Signed Date/Time: 08/09/2024 10:10 PM EDT --------ORIGINAL REPORT -------- CT ABDOMEN AND PELVIS CLINICAL INDICATION: CF duodenal perforation TECHNIQUE: CT scan of the abdomen and pelvis with IV contrast. Multiplanar reformations. Dose reduction was employed with automated exposure control. COMPARISON: 08/05/2024 from [facility] FINDINGS: Small RIGHT and moderate to large LEFT pleural effusions. Bibasilar atelectasis. Coronary artery calcifications are noted. Liver shows no significant abnormality. Gallbladder and biliary tree appear normal. Spleen appears normal. In the LEFT upper quadrant there is gas and fluid noted around the spleen, some of this appears loculated. This also contains some higher density material, presumably oral contrast. Adrenal glands show no significant abnormality. Parapelvic renal cysts bilaterally, upper pole simple appearing cortical cyst on the RIGHT. No follow-up required. Pancreas shows no significant abnormality. IVC filter noted. There is a stent in the distal stomach and proximal duodenum. Nonaneurysmal aorta. Diffuse bladder wall thickening, but bladder is not well distended. No bowel obstruction. Normal appendix. No ureteral calculus seen. IMPRESSION: 1. Gas fluid and contrast in the LEFT upper quadrant around the spleen some of which appears loculated. Presumably this relates to history of duodenal perforation. There is a stent in the distal stomach and proximal duodenum. These findings are new since the previous study. 2. Pleural effusions much larger on the LEFT. 3. Coronary artery disease. CRITICAL TEST RESULT COMMUNICATION: Notification of these findings was made to Dano James via [employer] on 08/09/2024 9:33 PM EDT. Report Dictated on Electronically Signed By: Jose D Ayon MD Electronically Signed Date/Time: 08/09/2024 9:55 PM EDT Final 1. Gas fluid and contrast in the LEFT upper quadrant around the spleen some of which appears loculated. Presumably this relates to history of duodenal perforation. There is a stent in the distal stomach and proximal duodenum. These findings are new since the previous study. 2. Pleural effusions much larger on the LEFT. 3. Coronary artery disease. CRITICAL TEST RESULT COMMUNICATION: Notification of these findings was made to Dano James via [employer] on 08/09/2024 9:33 PM EDT. Report Dictated on Electronically Signed By: Jose D Ayon MD Electronically Signed Date/Time: 08/09/2024 9:55 PM EDT ED BEDSIDE ULTRASOUND: Performed by ED Physician - none LABS: Labs Reviewed COMPREHENSIVE METABOLIC PANEL - Abnormal Result Value SODIUM 141 POTASSIUM 3.2 (*) CHLORIDE 107 CARBON DIOXIDE 25 ANION GAP 9 UREA NITROGEN 14 CREATININE 0.60 (*) GLUCOSE 112 CALCIUM 7.4 (*) AST (SGOT) 15 ALT <6 ALKALINE PHOSPHATASE 52 ALBUMIN 2.1 (*) BILIRUBIN, TOTAL 0.6 TOTAL PROTEIN 4.8 (*) eGFR >90.0 CBC WITH AUTO DIFFERENTIAL - Abnormal Auto WBC 9.9 RBC 3.40 (*) Hemoglobin 10.2 (*) Hematocrit 29.6 (*) MCV 87.1 MCH 30.0 MCHC 34.5 RDW 14.7 Platelets 207 MPV 9.4 nRBC 0.0 Neutrophils Relative 87.2 (*) Lymphocytes Relative 5.5 (*) Monocytes Relative 6.0 Eosinophils Relative 0.6 Basophils Relative 0.2 Immature Grans % 0.5 Neutrophils Absolute 8.6 (*) Lymphocytes Absolute 0.5 (*) Monocytes Absolute 0.6 Eosinophils Absolute 0.1 Basophils Absolute 0.0 Immature Grans Absolute 0.1 (*) APTT - Abnormal APTT 30.9 (*) Narrative: NOTE: The therapeutic time for Heparin anticoagulation, based on Xa activity inhibition, is an APTT of 46-80 seconds. LACTIC ACID WITH REFLEX - Normal LACTIC ACID 0.7 PROTHROMBIN TIME - Normal PROTHROMBIN TIME 11.9 INR 1.1 H. PYLORI STOOL ANTIGEN BLOOD TYPE AND SCREEN GEL ABO Grouping O Antibody Screen NEG Rh Type POS CONFIRMATORY ABO/RH ABO Grouping O Rh Type POS COMPREHENSIVE METABOLIC PANEL WITH MG REFLEX Narrative: The following orders were created for panel order Comprehensive Metabolic Panel with Mg Reflex. Procedure Abnormality Status --------- ------ Comprehensive metabolic ...[[id number]] Please view results for these tests on the individual orders. LACTIC ACID WITH REFLEX COMPREHENSIVE METABOLIC PANEL CALCIUM, IONIZED All other labs were within normal range or not returned as of this dictation. EMERGENCY DEPARTMENT COURSE and DIFFERENTIAL DIAGNOSIS/MDM: Vitals: Vitals: 08/10/24 0048 08/10/24 0100 08/10/24 0101 08/10/24 0115 BP: 137/73 133/81 133/81 129/71 Pulse: 99 87 84 Resp: Temp: (!) 35.8 C (96.4 F) (!) 35.9 C (96.7 F) TempSrc: Tympanic Tympanic SpO2: 96% (!) 88% 92% Weight: Diagnoses as of 08/10/248 Duodenal perforation (CMS/HCC) (HCC) Medications lactated Ringer's infusion ( IntraVENous Stopped 08/10/24 0033) pantoprazole (ProtoNix) 40 mg in sodium chloride (PF) 0.9 % 10 mL injection ( IntraVENous Dose Auto Held 08/17/24 2100) sodium chloride 0.9 % bolus 500 mL (has no administration in time range) lactated ringers infusion (has no administration in time range) sodium chloride 0.9% (NS) flush 10 mL (has no administration in time range) sodium chloride 0.9% (NS) flush 10 mL (has no administration in time range) sodium chloride 0.9 % infusion (has no administration in time range) HYDROmorphone (Dilaudid) injection 0.25 mg (has no administration in time range) HYDROmorphone (Dilaudid) injection 0.5 mg (0.5 mg IntraVENous Given 08/10/24 0058) oxyCODONE (Roxicodone) immediate release tablet 5 mg (has no administration in time range) Or oxyCODONE (Roxicodone) immediate release tablet 10 mg (has no administration in time range) ondansetron (Zofran) injection 4 mg (has no administration in time range) LORazepam (Ativan) injection 0.5 mg (has no administration in time range) diphenhydrAMINE (BENADryl) injection 12.5 mg (has no administration in time range) labetalol (Normodyne,Trandate) injection 5 mg (has no administration in time range) Or hydrALAZINE (Apresoline) injection 5 mg (has no administration in time range) diatrizoate meglumine-sodium (Gastrografin) 66-10 % solution 30 mL (30 mL Oral Given 08/09/242031) iopamidol (Isovue-370) 76 % injection 100 mL (100 mL IntraVENous Given 08/09/242117) REVAL: LIV CRITICAL CARE TIME CONSULTS: None PROCEDURES: Unless otherwise noted below, none Procedures Patients symptoms are consistent with sepsis, severe sepsis, or septic shock (If yes use ".sepsiscoremeasure"): No FINAL IMPRESSION 1. Duodenal perforation (CMS/HCC) (HCC) DISPOSITION Admit 08/09/2024 10:37:41 PM PATIENT REFERRED TO: No follow-up provider specified. DISCHARGE MEDICATIONS: There are no discharge medications for this patient. (Comment: Please note this report has been produced using speech recognition software and may contain errors related to that system including errors in grammar, punctuation, and spelling, as well as words and phrases that may be inappropriate. If there are any questions or concerns please feel free to contact the dictating provider for clarification.) Ganesh Earl MD (electronically signed) Emergency Medicine Provider Ganesh Earl MD 08/10/24 0118 documented in this encounter [facility] 08-13-2024 Note Discharge Summary Laine Garcia : 1955 ADMIT DATE: 08/09/2024 DISCHARGE DATE: 08/13/2024 PRIMARY CARE PHYSICIAN: No primary care provider on file. VISIT STATUS: Admission CODE STATUS: Full Code DISCHARGE DIAGNOSES: Principal Problem: Duodenal perforation (CMS/HCC) (HCC) Active Problems: Duodenal ulceration Pneumoperitoneum Severe malnutrition (CMS/HCC) (HCC) HOSPITAL COURSE: Pt taken to OR for diagnostic laparoscopy 08/09 and laparoscopic wedge resection of gastric perforation 08/10. The patient the tolerated procedure without any complications. Immediately post-op, pt was extubated and transferred to PACU in stable condition. After PACU criteria met and within 24 hrs of procedure, patient was transferred to the floor. Throughout ryan-operative course, there was monitoring of vital signs, urine output and clinical status of patient. Diet was subsequently advanced and by the day of discharge patient was ambulating, voiding and tolerating PO without difficulty. Pain was well controlled with oral medications by time of discharge. SIGNIFICANT DIAGNOSTIC STUDIES: Per EMR CONSULTANTS: N/A RECOMMENDED NEXT STEPS: Follow up in clinic and with PCP Ask your PCP about restarting aspirin vs anticoagulation DISCHARGE MEDICATIONS: Medication List START taking these medications doxycycline 100 MG capsule Commonly known as: Vibramycin Take 1 capsule (100 mg) by mouth 2 times daily for 10 days. Take with at least 8 ounces (large glass) of water, do not lie down for 30 minutes after ondansetron ODT 4 MG disintegrating tablet Commonly known as: Zofran-ODT Take 1 tablet (4 mg) by mouth every 8 hours as needed for nausea or vomiting for up to 7 days. oxyCODONE 5 MG immediate release tablet Commonly known as: Roxicodone Take 1 tablet (5 mg) by mouth every 4 hours as needed for moderate pain (4-6) for up to 5 days. CONTINUE taking these medications multivitamin with minerals tablet STOP taking these medications aspirin 81 MG EC tablet Where to Get Your Medications These medications were sent to [facility]/pharmacy #[id number] - [address] AT [facility] [place] [address] Hours: 24-hours doxycycline 100 MG capsule ondansetron ODT 4 MG disintegrating tablet oxyCODONE 5 MG immediate release tablet DIET: Adult diet Regular; Low Fiber ACTIVITY: No heavy lifting. COMPLEXITY OF FOLLOW UP: [] Moderate Complexity: follow up within 7-14 calendar days (34422) [] Severe Complexity: follow up within 7 calendar days (30539) FOLLOW UP TESTING, PENDING RESULTS OR REFERRALS AT TRANSITIONAL CARE VISIT: [] Yes [] No PENDING STUDIES: DISPOSITION: Home FACILITY/HOME CARE AGENCY NAME: Follow up with Zara DO Kiera [address] [place], [place] [phone] [phone] Follow up in 2 week(s) for post operative follow up INSTRUCTIONS TO MA/SW: Please call patient on day after discharge (must document patient contacted within 2 business days of discharge). FOLLOW UP QUESTIONS FOR MA/SW: 1. Did you get medications filled and taking them as instructed from discharge? 2. Are you following your discharge instructions from your hospital stay? 3. Please confirm patient is scheduled for a follow up appointment within the above time frame. DISCHARGE TIME: > 30 minutes SIGNED: Jaylyn Moore MD 08/13/2024, 9:26 AM [facility] 08-13-2024 Hospital Discharge instructions Jaylyn Moore MD - 08/13/2024 6:11 AM EDT Images from the original note were not included. DISCHARGE INSTRUCTIONS Thank you very much for allowing me to participate in your care, it is truly a privilege. Below please see discharge orders that will help you during your recovery. Please do not hesitate to call the office during the day at [phone] for any questions. After hours, the same number will allow you to reach the on-call surgeon. Leave steri strips in place after surgery. Any clear bandages and gauze placed in the navel, if applicable, can be removed in 5 days. If you have been provided with an abdominal binder, this is for your comfort. Please take this off in order to shower and use it as needed for your comfort. There is no designated time frame with which you should wear the binder. Do not lift anything that is 15-20 pounds or greater for 2 weeks from the date of your surgery. This is to prevent herniation at your incision sites. Activity restrictions will be addressed at the first post op visit. Please shower the day after surgery. Soap and water is adequate. Keep the incisions clean and dry. No lotions or ointments until you are seen in the office. Do not swim in a pool, go in a hot tub, or soak in a bathtub for the first week after your surgery. Surgery can hurt! Please make every effort to take the pain medicine as instructed to help reduce your discomfort. I usually recommend that you take pain medicine when you wake up in the morning and before you go to sleep. Schedule the rest of the day in order to not interfere with medication dosages as prescribed. If you feel that the medicine is not working, please call the office. Make sure to take a stool softner such as Colace or Milk of Magnesia while you are taking pain medication. If you do not have a bowel movement within 2-3 days, switch to daily Miralax. If still no result - call the office. Should you have nausea after surgery you may have been prescribed nausea medication. Try taking the medicine and if you feel that the medicine is not working, please call the office. For any emergencies, please dial 911. Thank you again for allowing me to participate in your care, and get well soon! Sincerely, Dr. Zara Spann Discharge Instructions Call your surgeon in 1 to 2 days to schedule a follow-up appointment in 1-2 weeks. OK to shower. OK for activity as tolerated. No lifting over {NUMBERS; 0-40 BY 5:[id number]} pounds. Wound Care: keep wound clean and dry, reinforce dressing PRN and ice to area for comfort. If you have steri-strips, you may remove them 5 days after your surgery. If your steri-strips fall off sooner, you may leave them off. If you have amita, they can be removed in 14 days after your surgery by your surgeon or PCP. If you have skin glue, that will fall off on its own, just keep area clean and dry. If you have a drain, please record daily output amounts and bring the recordings with you to your office follow up. No driving while taking narcotic/sedating medications. You may take an over the counter stool softener while on narcotics for constipation as needed (colace, miralax, etc). Continue a soft diet for 1-2 weeks. Eat small portions (<25-50% or your meal) and go slow with you diet until you are tolerating it well. Chew your food really well. Eat things that can easily be broken up with a fork. Try to avoid too many raw fruits or vegetables for the first 1-2 weeks. Cooked/canned fruits and vegetables are ok. Call your Physician or return to the Emergency Room if you experience: -New or increased pain. -New or increased abdominal bloating or distention -New or increased bleeding. -Nausea & vomitting. -Fever & chills. -Shortness of breath. -Chest pain. Post-Operative Pain Reduction Strategy to Minimize Opioid Use Please take acetaminophen (Tylenol) and/or NSAIDS (Advil, Motrin) for postoperative pain control before taking opioid prescriptions for pain. You can alternate between the two or stagger them to achieve a more durable pain control regimen. -Do not exceed more than 4g of acetaminophen within 24 hours -Do not exceed more than 3200 mg NSAIDs in 24 hours -Do not take NSAIDs (ex: kidney problems or bleeding) or acetaminophen (ex: liver problems) if you have any contraindications to them . If your pain is not controlled by acetaminophen and/or NSAIDS, please take your opioid prescription ([place]/vicodin/percocet have tylenol in them) as needed for pain relief and try to use the minimum amount necessary for adequate pain relief. Opioid narcotics can suppress your breathing and decrease your level of alertness. It can also cause your bowel function to slow down and potentially make you constipated. -Do not drive or operate heavy machinery while on narcotic medications. -You can take Colace or MiraLAX over the counter as needed for constipation. Please properly dispose your excess opioid medications at the appropriate facility/location. An EXAMPLE schedule of how to take these medications is below. It is not necessary to wake yourself from sleep to take pain medication. 6am: 1000 mg tylenol and 1-2 oxycodone (5mg) tablets if needed 9am: 800 mg ibuprofen 12pm: 1000 mg tylenol and 1-2 oxycodone (5mg) tablets if needed 3pm: 800 mg ibuprofen 6pm: 1000 mg tylenol and 1-2 oxycodone (5mg) tablets if needed 9pm: 800 mg ibuprofen 12am: 1000 mg tylenol and 1-2 oxycodone (5mg) tablets if needed 3am: 800 mg ibuprofen 6am: 1000 mg tylenol and 1-2 oxycodone (5mg) tablets if needed documented in this encounter [facility] 08-13-2024 Plan of care note Problem: Pain - Adult Goal: Verbalizes/displays adequate comfort level or baseline comfort level Outcome: Progressing Problem: Safety - Adult Goal: Free from fall injury Outcome: Progressing Problem: Discharge Planning Goal: Discharge to home or other facility with appropriate resources Outcome: Progressing Problem: Problem Interventions Goal: Assess Nutritional Intake Outcome: Progressing Problem: Knowledge Deficit Goal: Patient/family/caregiver demonstrates understanding of disease process, treatment plan, medications, and discharge instructions Outcome: Progressing Problem: Potential for Falls Goal: I will remain free of falls Outcome: Progressing Problem: Discharge Barriers Goal: My discharge needs are met Outcome: Progressing T [facility] 08-12-2024 History of Present illness Narrative Nutrition Assessment Type and Reason for Visit: Initial Nutrition Recommendations/Plan: Pt meets criteria for severe malnutrition per ASPEN/AND guidelines. Recommend continue with low fiber diet as tolerated. Pt declining ONS at this time as he feels he is tolerating solids thus far today. If this should change would highly recommend initiation of some sort of ONS. Monitor %PO intakes, acute weight/fluid changes, labs, GI function, skin integrity, overall nutritional status. Malnutrition Assessment: Malnutrition Status: Severe malnutrition Context: Acute Illness Findings of the 6 clinical characteristics of malnutrition: Energy Intake: 50% or less of estimated energy requirements for 5 or more days Weight Loss: Greater than 2% over 1 week >5% in 2 weeks. Body Fat Loss: Unable to assess Muscle Mass Loss: Moderate muscle mass loss Temples (temporalis) Fluid Accumulation: Unable to assess Integration Software Developer Strength: Not Performed Nutrition Assessment: Pt with PMH of mitral valves prolapse, pulmonary embolism admitted 08/10 with concern for bleeding duodenal ulcer, possible perforated duodenal ulcer. Pt transferred from [facility] where he was already admitted for 4 days and underwent multiple transfusions and clipping of ulcers. Pt also had stent placed in duodenum for concern of perforation. Pt reported abdominal pain for approximately 1 month prior to admission and use of aspirin daily. Pt underwent laparoscopic washout, lysis of adhesions, EGD on 08/09. Imaging with continued gastric perforation and therefore he returned to OR 08/10 for Elisa take down and laparoscopic wedge resection of stomach. No further surgical interventions planned, and diet is now advanced to low fiber after tolerance of FLD. Pt also underwent thoracentesis today for left-sided pleural effusion. Pt reports tolerance of solid meal today. Declining need for ONS. Pt has had an approximate 10# weight loss over the past 2 weeks due to limited PO intakes. Estimated Daily Nutrient Needs: Energy Requirements Based On: Kcal/kg Weight Used for Energy Requirements: [place] Weight for Energy Calculation (kg): 78 kg Total Energy Requirements (kcals/day): 8834-8949 Weight Used for Protein Requirements: [place] Weight in Kg Used for Protein Requirements: 78 kg Estimated Total Protein (g/day): 90-110 Estimated Daily Total Fluid (ml/day): Nutrition Related Findings: BM 5/8- loose stool; LUQ closed suction drain; A&Ox4; Siva 20; K+ 3.3, Cr 0.59, Hgb 9.7 Wound Type: Surgical Incision Current Nutrition Therapies: Adult diet Regular; Low Fiber Current Oral Intake Average Meal Intake: Unable to assess Average Supplements Intake: None Ordered Anthropometric Measures: Height: 180.3 cm (5' 11") Current Body Weight: 77.1 kg (170 lb) Usual Body Weight: 81.6 kg (180 lb) % Weight Change (Calculated): -5.6 [place] Body Weight (lbs) (Calculated): 172 lbs [place] Body Weight (Kg) (Calculated): 78 kg % [place] Body Weight (Calculated): 98.8 % BMI (kg/m2) (Calculated): 23.7 BMI Categories: Normal Weight (BMI 22.0 to 24.9) age over 65 Nutrition Diagnosis: Severe malnutrition, In context of acute illness or injury related to altered GI structure as evidenced by NPO or clear liquid status due to medical condition, poor intake prior to admission, weight loss greater than or equal to 5% in 1 month, weight loss Nutrition Interventions: Nutrition Education/Counseling: Education initiated Coordination of Nutrition Care: Continue to monitor while inpatient Goals: Goals: PO intake 75% or greater, by next RD assessment Nutrition Monitoring and Evaluation: Food/Nutrient Intake Outcomes: Diet Advancement/Tolerance, Food and Nutrient Intake, Supplement Intake Physical Signs/Symptoms Outcomes: Biochemical Data, GI Status, Fluid Status or Edema, Nutrition Focused Physical Findings, Skin, Weight Discharge Planning: Too soon to determine Deidra Tello RD Contact: [phone] Nutrition rescreen completed. Patient referred to the Dietitian. Patient is NPO > 3 days. TEODORO Hernandez Correction. Probable extravasation of contrast. I (Zara Spann) personally supervised the physician publishing specialist in the evaluation and development of a treatment plan for this patient. I personally discussed the review of systems and interviewed the patient along with performing a physical examination. In addition, I discussed the patient's condition and treatment options with them when possible. I have also reviewed and agree with the past medical, family and social history and nursing notes unless otherwise noted. All of the patient's questions were answered and visual aides were used when possible. The visit was spent discussing/counseling the patient, reviewing data, coordinating care, reviewing available imaging and creating a plan. The patient was seen and examined independently and relevant data reviewed by myself. A full chart review was performed when available. At times this note may reflect a late entry to the visit that occurred on the date noted below ASSESSMENT: patient complex history. Admission to [facility] approximately four days ago. Patient with acute blood loss anemia from a digital ulceration. The patient has undergone multiple transfusions and interventions at [facility]. Most recently the patient underwent clipping of dole ulcers, epinephrine injection, followed by argon beam. There was a concern for perforation, and therefore a stent also was placed in the duodenum. The patient this a.m. underwent CTA to rule out PE since he has a history of blood clots. On the CT scan, he was found to have free air and fluid surrounding the spleen. He subsequently underwent a IVC filter and was sent to [facility] for higher level of care. Patient has a benign abdomen, he does have mild pain in the left of a quatrain. No dyspnea. Vital signs are stable. PLAN: in light of the free air and fluid surrounding the spleen, we will take the patient for diagnostic laparoscopy. The CT scan is not substantially different from the CTA earlier today however, there s a concern for possible contrast extrapolation. We will perform a EGD, diagnostic laparoscopy and abdominal washout. I discussed this procedure with the Family at bedside. They are agreeable. documented in this encounter [facility] 08-12-2024 Note Problem: Discharge P hernán Goal: Discharge to home or other facility with appropriate resources 08/12/2024 172 by Mervat Lala RN Outcome: Progressing 08/12/2024 0702 by Mervat Lala RN Outcome: Not Progressing [facility] 08-12-2024 Plan of care note Problem: Discharge Planning Goal: Discharge to home or other facility with appropriate resources 08/12/2024 172 by Mervat Lala RN Outcome: Progressing 08/12/2024 0702 by Mervat Lala RN Outcome: Not Progressing [facility] 08-12-2024 Note Interventional Radio logy Brief Postprocedure Note Procedure: US guided thoracentesis Preprocedure Diagnosis: Left pleural effusion Postprocedure Diagnosis: no change Staff: Staff Role Beto Jackson MD, IR attending Description of procedure: US-guided left thoracentesis Estimated Blood Loss: Minimal Medications Medications (Filter: Administrations occurring from 1125 to 1125 on 08/12/24) As of 08/12/24 1125 None Specimens ID Type Source Tests Collected by Time 1 : STOMACH PERFORATION Tissue Stomach TISSUE EXAM Zara Sapnn DO 08/10/2024 1706 Findings: small-moderate left pleural effusion Plan: routine postop care Complications: None Anesthesia: local See detailed result report with images in PACS. The patient tolerated the procedure well without incident or complication and is in stable condition. Beto Jackson MD Interventional Radiology Pager: [facility] 08-12-2024 Procedure note Interventional Radiology Brief Postprocedure Note Procedure: US guided thoracentesis Preprocedure Diagnosis: Left pleural effusion Postprocedure Diagnosis: no change Staff: Staff Role Beto Jackson MD, IR attending Description of procedure: US-guided left thoracentesis Estimated Blood Loss: Minimal Medications Medications (Filter: Administrations occurring from 1125 to 1125 on 08/12/24) As of 08/12/24 1125 None Specimens ID Type Source Tests Collected by Time 1 : STOMACH PERFORATION Tissue Stomach TISSUE EXAM Zara Spann, DO 08/10/2024 1706 Findings: small-moderate left pleural effusion Plan: routine postop care Complications: None Anesthesia: local See detailed result report with images in PACS. The patient tolerated the procedure well without incident or complication and is in stable condition. Beto Jackson MD Interventional Radiology Pager: [facility] Work Phone: 08-12-2024 [facility]. History, medications and allergies reviewed. Dr Eliana Jackson in to discuss procedure and informed consent obtained. Patient assisted to sitting on the edge of the bed. Left upper back scanned, marked and prepped in sterile fashion. Procedure completed. 700mls of clear yellow fluid removed. Tegaderm applied. Patient tolerated procedure well. Patient transferred back to room. [facility] 08-12-2024 Procedure note Patient arrived to Ultrasound department for thoracentesis. History, medications and allergies reviewed. Dr Eliana Jackson in to discuss procedure and informed consent obtained. Patient assisted to sitting on the edge of the bed. Left upper back scanned, marked and prepped in sterile fashion. Procedure completed. 700mls of clear yellow fluid removed. Tegaderm applied. Patient tolerated procedure well. Patient transferred back to room. [facility] 08-12-2024 Procedure note Patient arrived to Ultrasound department for thoracentesis. History, medications and allergies reviewed. Dr Eliana Jackson in to discuss procedure and informed consent obtained. Patient assisted to sitting on the edge of the bed. Left upper back scanned, marked and prepped in sterile fashion. Procedure completed. 700mls of clear yellow fluid removed. Tegaderm applied. Patient tolerated procedure well. Patient transferred back to room. documented in this encounter [facility] 08-12-2024 Plan of care note Problem: Pain - Adult Goal: Verbalizes/displays adequate comfort level or baseline comfort level Outcome: Progressing Problem: Safety - Adult Goal: Free from fall injury Outcome: Progressing Problem: Discharge Planning Goal: Discharge to home or other facility with appropriate resources Outcome: Progressing [facility] 08-11-2024 Plan of care note Problem: Pain - Adult Goal: Verbalizes/displays adequate comfort level or baseline comfort level Outcome: Progressing Problem: Safety - Adult Goal: Free from fall injury Outcome: Progressing Problem: Discharge Planning Goal: Discharge to home or other facility with appropriate resources Outcome: Progressing [facility] 08-10-2024 Note Patient: Laine veliz Procedure Summary Date: 08/10/24 Room / Location: [place] [address] [facility] Operating Room Anesthesia Start: 1554 Anesthesia Stop: 1735 Procedure: LAPAROSCOPIC WEDGE RESECTION OF STOMACH, EGD (Abdomen) Diagnosis: Duodenal perforation (CMS/HCC) (HCC) Surgeons: Zara Spann DO Responsible Provider: Romie Anglin MD Anesthesia Type: general ASA Status: 2 Anesthesia Type: general Vitals Value Taken Time BP 147/78 08/10/24 1732 Temp 36.4 08/10/24 1736 Pulse 73 08/10/24 1735 Resp 15 08/10/24 1734 SpO2 98 % 08/10/24 1735 Vitals shown include unfiled device data. Anesthesia Post Evaluation Patient location during evaluation: PACU Patient participation: complete - patient participated Level of consciousness: awake and alert Pain management: satisfactory to patient Airway patency: patent Dental Injury: no Cardiovascular status: acceptable, blood pressure returned to baseline and hemodynamically stable Respiratory status: acceptable, spontaneous ventilation and face mask Hydration status: euvolemic Nausea/Vomiting: controlled No notable events documented. Patient can be discharged once all PACU criteria has been met. [facility] 08-10-2024 Note Patient: Laine velzi Procedure Summary Date: 08/10/24 Room / Location: [facility] Operating Room Anesthesia Start: 1554 Anesthesia Stop: 1734 Procedure: LAPAROSCOPIC WEDGE RESECTION OF STOMACH, EGD (Abdomen) Diagnosis: Duodenal perforation (CMS/HCC) ([facility]) Surgeons: Zara Spann DO Responsible Provider: Romie Anglin MD Anesthesia Type: general ASA Status: 2 Anesthesia Type: general Vitals Value Taken Time BP 147/78 08/10/24 1732 Temp 36.4 08/10/24 1736 Pulse 73 08/10/24 1735 Resp 15 08/10/24 1734 SpO2 98 % 08/10/24 1735 Vitals shown include unfiled device data. Anesthesia Post Evaluation Patient location during evaluation: PACU Patient participation: complete - patient participated Level of consciousness: awake and alert Pain management: satisfactory to patient Multimodal analgesia pain management approach Airway patency: patent Two or more strategies used to mitigate risk of obstructive sleep apnea Cardiovascular status: acceptable and hemodynamically stable Respiratory status: acceptable and face mask Hydration status: acceptable No notable events documented. MIPS #430 PONV Patient received an inhalational anesthetic (4554F) Patient does not exhibit three or more risk factors for PONV (X0430)) MIPS # 424 Perioperative Temperature Management Anesthesia time was 60 minutes or longer (4255F) Anesthesai administered was General (inhalational or TIVA) or Neuraxial block (X0424) At least one body temperature greater than 95.8F/35.5C achieved within the 30 mins immediately prior to or the 15 minutes immediately following anesthesia end time (G9771) MIPS #477 Multimodal Pain Management Not emergent case Patient was administered multimodal pain management (two or more drugs and/or interventions excluding systemic opioids) in the periopeartive period occurring at some time between 6 hours prior to anesthesia start time until discharged from PACU (G2148) MIPS #404 Anesthesiology Smoking Abstinence The patient is not a current smoker (e.g. cigarette, cigar, pipe, e-cigarette/vaping/marijuana) If no stop here (XX404) I completed my handoff to the receiving clinician during which we: 1. Identified the patient 2. Identified the responsible provider 3. Reviewed the pertinent medical history 4. Discussed the surgical course 5. Reviewed intra-op anesthesia management and issues during anesthesia 6. Set expectations for post-procedure period 7. Allowed opportunity for questions and acknowledgement of understanding. [facility] 08-10-2024 Note Airway Date/Time: 08/10/2024 4:05 PM Urgency: scheduled Airway not difficult General Information and Staff Patient location during procedure: Procedural Resident/AIRWAYS OPERATIONS SPECIALIST: Jose Luis Breaux APRN - AIRWAYS OPERATIONS SPECIALIST Performed: SRNA Indications and Patient Condition Indications for airway management: anesthesia and airway protection Sedation level: Asleep and RSI Preoxygenated: yes Patient position: reverse Trendelenburg Mask difficulty assessment: 0 - not attempted Final Airway Details Final airway type: endotracheal airway Successful airway: ETT Cuffed: yes Successful intubation technique: direct laryngoscopy Facilitating devices/methods: intubating stylet and cricoid pressure Endotracheal tube insertion site: oral Blade: Sudheer Blade size: #3 ETT size (mm): 7.0 Cormack-Lehane Classification: grade IIa - partial view of glottis Placement verified by: capnometry Measured from: lips ETT to lips (cm): 21 Number of attempts at approach: 1 Number of other approaches attempted: 0 Additional Comments Atraumatic intubation, dentition intact from baseline [facility] 08-10-2024 Procedure note Images from the original note were not included. Patient: Laine Garcia Date of : 1955 Service Date: 08/10/2024 PROCEDURE: Laparoscopic wedge resection of stomach Laparoscopic enterolysis EGD 19 Chinese drain placement. PREOPERATIVE DIAGNOSES: Patient Active Problem List Diagnosis Duodenal perforation (CMS/HCC) (HCC) Duodenal ulceration Pneumoperitoneum Gastric perforation POSTOPERATIVE DIAGNOSES: Same ANESTHESIA: General SURGEON: DR. Zara Spann HAT AND CAP OPENER: Dr. Sandy Gallardo FLUIDS: 1000 cc crystalloid ESTIMATED BLOOD LOSS: 10 cc URINE OUTPUT: Not recorded. PREOPERATIVE MEDICATIONS: 2 g Ancef INDICATIONS FOR PROCEDURE: The patient is a 69 y.o. male with complex medical history with recent bleeding duodenal ulcer with clipping cautery and stenting. The patient was transferred here from an outside facility for possible gastric perforation. The patient was taken for diagnostic laparoscopy last evening however no abnormalities were noted. The patient was reevaluated today with upper GI and repeat CT scan and was noted to have a continued gastric perforation. He was subsequently brought to the operative suite for further evaluation. He was placed in split leg position. General endotracheal anesthesia was induced. His bony prominences were protected. We prepped and draped the abdomen. We used the remaining incisions from yesterday evening. Optical trocar was inserted without difficulty in the left upper quadrant. The abdominal cavity was insufflated to 15 mm of pneumoperitoneum. The remainder of the 4 ports were then placed along with a subxiphoid [place] liver retractor. Again there was no intra-abdominal contamination. No pus no bilious fluid no exudative material in the abdomen. We very carefully began to dissected the hiatal hernia and the previous Elisa. We mobilized along the greater curvature the stomach using Enseal device. We identified the greater curve of the stomach sutured to the lesser curve of the stomach. These Ethibond sutures were transected. We continued lateral dissection on the right as well as the left to fully mobilize the fundus. This was difficult dissection along the diaphragmatic edge on the patient's left side due to significant scar tissue. We were however able to elevate the fundus and once we did this a pocket of fluid and contrast was noted adjacent to the spleen. This was a exudative walled off area. This was copiously irrigated and drained. Once the fundus was elevated into the field a perforation was noted within the fundus. This was a lateral and cephalad and was easily transected with a Endo ANDREW blue load stapler to close the gastrotomy. The specimen was then passed off the field. At this point we then insufflated the stomach. We very carefully evaluated all the superior surfaces of the posterior surfaces. The entire stomach was then dunked underwater to ensure there was no further perforations and they were not. There was complete hemostasis. At this point we then placed a 19 Chinese drain along the cephalad aspect of the spleen and the previous abscess cavity. This was brought up to the left upper quadrant trocar site. This trocar site was then closed using 2-0 silk suture. The abdominal cavity was then desufflated. 4-0 Monocryl was then placed to close the incisions. The patient was then extubated taken recovery in stable condition. [facility] 08-10-2024 Procedure note Images from the original note were not included. Patient: Laine Garcia Date of : 1955 Service Date: 08/09/24 PROCEDURE: Diagnostic laparoscopy with laparoscopic enterolysis EGD PREOPERATIVE DIAGNOSES: Patient Active Problem List Diagnosis Duodenal perforation (CMS/HCC) (HCC) Duodenal ulceration Pneumoperitoneum Possible gastric perforation POSTOPERATIVE DIAGNOSES: Same ANESTHESIA: General SURGEON: DR. Zara Spann HAT AND CAP OPENER: Dr. Vance FLUIDS: 1000 cc crystalloid ESTIMATED BLOOD LOSS: 10 cc URINE OUTPUT: Not recorded. PREOPERATIVE MEDICATIONS: 3 Ancef INDICATIONS FOR PROCEDURE: The patient is a 69 y.o. male presents to [facility] from outside facility with a possible gastric perforation. CT scan was performed which revealed collection left quadrant with pleural effusion. Possible free air. The patient was brought to the op suite and placed in split leg position. His arms were out at his sides being careful to protect bony prominences. Began outpatient by making a left upper quadrant 5 mm incision after appropriate prep and drape and timeout. The abdominal cavity was entered without difficulty. Opening pressure was 3 mm pneumoperitoneum. The abdominal Was insufflated to 15 mm pneumoperitoneum. There is no abnormalities noted within the abdominal cavity. There was no fluid, no pus, no bilious fluid no other abnormalities. We then placed a mid abdominal 5 left upper quadrant 5 and a right sided 5 mm trocar. Very careful examination of the abdominal cavity was completed. The duodenum was normal. The area of the stent was clearly visualized however there was no abnormality around the duodenum. No evidence of perforation noted. At this point we then began to evaluate the left upper quadrant. There was substantial scar in this area with the. Patient's previous Elisa fundoplication. We mobilized the greater curve of the stomach to gain access to the lesser sac. There was no fluid or other abnormality in this area. We then mobilized the colon along the splenic flexure. There was no evidence of fluid or pus or abnormality in this area. There was no bilious fluid or other exudative process in the left upper quadrant. At this point not finding an obvious perforation we then insufflated the stomach using an endoscope. We took a careful survey while dunking the entire stomach under water. Once again no other abnormalities were noted. Being satisfied that there was no obvious perforation we did not take down the entire fundoplication or further evaluate up by the spleen as there was substantial scar tissue. At this point we then abandon the procedure with plans for postoperative upper GI and further evaluation. We desufflated the abdominal cavity. We closed incisions using 4 Monocryl. Patient extubated taken recovery in stable condition. [facility] Patient: Laine veliz Procedure Information Date: 08/10/24 Procedure: LAPAROSCOPY, DIAGNOSTIC (Abdomen) Location: [facility] Operating Room Surgeons: Zara Spann DO Relevant Problems GI (+) Duodenal ulceration Past Medical History: Past Medical History: No date: MVP (mitral valve prolapse) No date: Pulmonary embolism (HCC) Past Surgical History: Past Surgical History: 08/10/2024: OTHER SURGICAL HISTORY; N/A Comment: APAROSCOPY, DIAGNOSTIC, LYSIS OF ADHESIONS, EGD Social History: TOBACCO: has no history on file for tobacco use. ETOH: has no history on file for alcohol use. Social History Substance and Sexual Activity Drug Use Not on file Family History: No family history on file. Screening: unknown Clinical information reviewed: Allergies Physical Exam Airway Mallampati: II Neck ROM: full Cardiovascular Dental dentition normal Pulmonary Abdominal Anesthesia Plan patient is NPO appropriate Any family history or previous problems with anesthesia no ASA 2 general Any family history or previous problems with anesthesia no The patient is not a current smoker. Patient did not smoke on day of procedure. Anesthetic plan and risks discussed with patient. ADALBERTO Screening Labs: Lab Results Component Value Date WBC 11.4 (H) 08/10/2024 HGB 10.1 (L) 08/10/2024 HCT 30.3 (L) 08/10/2024 MCV 87.8 08/10/2024 PLT 228 08/10/2024 Lab Results Component Value Date NA 139 08/10/2024 K 3.5 08/10/2024 CL 108 (H) 08/10/2024 CO2 24 08/10/2024 BUN 13 08/10/2024 CREATININE 0.62 (L) 08/10/2024 GLUCOSE 146 (H) 08/10/2024 CALCIUM 7.7 (L) 08/10/2024 PROT 4.8 (L) 08/09/2024 ALKPHOS 52 08/09/2024 AST 15 08/09/2024 ALT <6 08/09/2024 EGFR >90.0 08/10/2024 Pain Score: Scheduled No echocardiogram results found for the past 14 days 08/09/24 ECG 12-LEAD 08/10/2024 12:13 AM (Final) Impression Sinus rhythm Minimal ST depression, lateral leads Electronically Signed On 08-10-2024 00:13:40 EDT by Etienne Hardin Signed by: Etienne Hardin MD on 08/10/2024 12:13 AM Equipment Requests: Additional Equipment Requests [facility] 08-10-2024 Nurse Note Report called to H5. [facility] 08-10-2024 Note Patient: Laine veliz Procedure Summary Date: 08/09/24 Room / Location: [address] Operating Room Anesthesia Start: 2327 Anesthesia Stop: 08/10/24101 Procedure: LAPAROSCOPY, DIAGNOSTIC, LYSIS OF ADHESIONS, EGD (Abdomen) Diagnosis: Duodenal perforation (CMS/HCC) ([facility]) Surgeons: Zara Spann DO Responsible Provider: Dano Ennis MD Anesthesia Type: general, regional ASA Status: 2 - Emergent Anesthesia Type: general, regional Vitals Value Taken Time BP 133/81 08/10/241 Temp 35.9 ?C (96.7 ?F) 08/10/2499 Pulse 85 08/10/24101 Resp 21 08/10/24101 SpO2 96 % 08/10/24101 Vitals shown include unfiled device data. Anesthesia Post Evaluation Patient location during evaluation: PACU Patient participation: complete - patient participated Level of consciousness: awake and alert Pain management: satisfactory to patient Airway patency: patent Dental Injury: no Cardiovascular status: acceptable, blood pressure returned to baseline and hemodynamically stable Respiratory status: acceptable and spontaneous ventilation Hydration status: euvolemic Nausea/Vomiting: controlled No notable events documented. Patient can be discharged once all PACU criteria has been met. [facility] 08-10-2024 Note Patient: Laine veliz Procedure Summary Date: 08/09/24 Room / Location: [address] Operating Room Anesthesia Start: 2327 Anesthesia Stop: 08/10/24101 Procedure: LAPAROSCOPY, DIAGNOSTIC, LYSIS OF ADHESIONS, EGD (Abdomen) Diagnosis: Duodenal perforation (CMS/HCC) (HCC) Surgeons: Zara Spann DO Responsible Provider: Dano Ennis MD Anesthesia Type: general, regional ASA Status: 2 - Emergent Anesthesia Type: general, regional Vitals Value Taken Time BP 133/81 08/10/24 0100 Temp 35.9 ?C (96.7 ?F) 08/10/24 0100 Pulse 85 08/10/24 0102 Resp 21 08/10/24 0102 SpO2 96 % 08/10/242 Vitals shown include unfiled device data. Anesthesia Post Evaluation Patient location during evaluation: PACU Patient participation: complete - patient participated Level of consciousness: awake and alert Pain management: satisfactory to patient Multimodal analgesia pain management approach Airway patency: patent Two or more strategies used to mitigate risk of obstructive sleep apnea Cardiovascular status: acceptable and hemodynamically stable Respiratory status: acceptable Hydration status: acceptable No notable events documented. MIPS #430 PONV Patient received an inhalational anesthetic (4554F) Patient exhibits three or more risk factors for PONV (4556F) Patient received at aset 2 prophylactic Rx PONV anti-emtic agents of different classes preop and/or intraop (G9775) MIPS # 424 Perioperative Temperature Management Anesthesia time was 60 minutes or longer (4255F) Anesthesai administered was General (inhalational or TIVA) or Neuraxial block (X0424) At least one body temperature greater than 95.8F/35.5C achieved within the 30 mins immediately prior to or the 15 minutes immediately following anesthesia end time (G9771) MIPS #477 Multimodal Pain Management Emergent case Exlusion- Stop here (M1142) MIPS #404 Anesthesiology Smoking Abstinence The patient is not a current smoker (e.g. cigarette, cigar, pipe, e-cigarette/vaping/marijuana) If no stop here (XX404) I completed my handoff to the receiving clinician during which we: 1. Identified the patient 2. Identified the responsible provider 3. Reviewed the pertinent medical history 4. Discussed the surgical course 5. Reviewed intra-op anesthesia management and issues during anesthesia 6. Set expectations for post-procedure period 7. Allowed opportunity for questions and acknowledgement of understanding. [facility] 08-09-2024 Note Airway Date/Time: 08/09/2024 11:25 PM Urgency: scheduled Airway not difficult General Information and Staff Patient location during procedure: Procedural Anesthesiologist: Dano Ennis MD Resident/AIRWAYS OPERATIONS SPECIALIST: Derrick Grayson APRN - AIRWAYS OPERATIONS SPECIALIST Performed: AIRWAYS OPERATIONS SPECIALIST Indications and Patient Condition Indications for airway management: anesthesia Sedation level: Asleep Preoxygenated: yes Patient position: sniffing Mask difficulty assessment: 1 - vent by mask Final Airway Details Final airway type: endotracheal airway Successful airway: ETT Cuffed: yes Successful intubation technique: direct laryngoscopy Facilitating devices/methods: intubating stylet Endotracheal tube insertion site: oral Blade: Garcia Blade size: #3 ETT size (mm): 8.0 Cormack-Lehane Classification: grade IIa - partial view of glottis Placement verified by: chest auscultation and capnometry Measured from: gums ETT to gums (cm): 22 Number of attempts at approach: 1 Ventilation between attempts: BVM Number of other approaches attempted: 0 [facility] 08-09-2024 Note Patient: Laine veliz Procedure Information Anesthesia Start Date/Time: 08/09/24 4278 Procedure: LAPAROSCOPY, DIAGNOSTIC, repair of duodenal perf, possible ex lap (Abdomen) Location: [address] Operating Room Surgeons: Zara Spann, DO Relevant Problems GI (+) Duodenal ulceration Past Medical History: No past medical history on file. Past Surgical History: No past surgical history on file. Social History: TOBACCO: has no history on file for tobacco use. ETOH: has no history on file for alcohol use. Social History Substance and Sexual Activity Drug Use Not on file Family History: No family history on file. Screening: unknown Clinical information reviewed: Allergies Physical Exam Airway Mallampati: II Neck ROM: full Cardiovascular Dental dentition normal Pulmonary Abdominal Anesthesia Plan patient is NPO appropriate Any family history or previous problems with anesthesia no ASA 2 - emergent general and regional Any family history or previous problems with anesthesia no The patient is not a current smoker. Patient was not previously instructed to abstain from smoking on day of procedure. Patient did not smoke on day of procedure. Anesthetic plan and risks discussed with patient and spouse. ADALBERTO Screening Labs: Lab Results Component Value Date WBC 9.9 08/09/2024 HGB 10.2 (L) 08/09/2024 HCT 29.6 (L) 08/09/2024 MCV 87.1 08/09/2024 PLT 207 08/09/2024 Lab Results Component Value Date NA 141 08/09/2024 K 3.2 (L) 08/09/2024 CL 107 08/09/2024 CO2 25 08/09/2024 BUN 14 08/09/2024 CREATININE 0.60 (L) 08/09/2024 GLUCOSE 112 08/09/2024 CALCIUM 7.4 (L) 08/09/2024 PROT 4.8 (L) 08/09/2024 ALKPHOS 52 08/09/2024 AST 15 08/09/2024 ALT <6 08/09/2024 EGFR >90.0 08/09/2024 Pain Score: 3 No echocardiogram results found for the past 14 days 08/09/24 ECG 12-LEAD (Preliminary) This result has not been signed. Information might be incomplete. Impression Sinus rhythm Minimal ST depression, lateral leads Equipment Requests: Additional Equipment Requests [facility] 08-09-2024 Note Peripheral Block Time Out: 08/09/2024 11:40 PM Patient location during procedure: Procedural Start time: 08/09/2024 11:40 PM End time: 08/09/2024 11:44 PM Reason for block: at surgeon's request and post-op pain management Staffing Performed: anesthesiologist Anesthesiologist: Dano Ennis MD Preanesthetic Checklist Completed: patient identified, IV checked, site marked, risks and benefits discussed, surgical consent, monitors and equipment checked, pre-op evaluation and timeout performed Region: [place] Primary: TAP (Bupivacaine 0.375%/ Epi 1:200,000/ Dex 0.1mg/mL 40ml divided evenly bilateral) Secondary: Upper rectus (Bupivacaine 0.375%/ Epi 1:200,000/ Dex 0.1mg/mL 20ml divided evenly bilateral) Peripheral Block Patient position: supine Prep: ChloraPrep Patient monitoring: heart rate, athletic monitor, continuous pulse ox and continuous capnometry O2: ETT/LMA Laterality: bilateral Injection technique: single-shot Guidance: ultrasound guided -image retained in chart, tip of the needle identified by ultraound during injection. Needle Needle: 21G X 110 mm Additional Notes 08/09/2024 11:40 PM Assessment Injection assessment: negative aspiration for heme, no paresthesia on injection and incremental injection Heart rate change: no Slow fractionated injection: yes Required Documentation: Relevant anatomy identified (Nerves, Vessels, Muscles), Negative for blood on aspiration, Local anesthetic injected incrementally with intermittent aspiration every 5 mL, Normal resistance with injection, No EKG changes noted, No symptoms of toxicity, Local anesthetic spread visualized around nerves or plane. and Local anesthetic injected without difficultyMedications [id number] ine (TAP) syringe - Injection 60 mL - 08/09/2024 11:40:00 PM [facility] 08-09-2024 Note I (Zara Spann) per sonally supervised the physician publishing specialist in the evaluation and development of a treatment plan for this patient. I personally discussed the review of systems and interviewed the patient along with performing a physical examination. In addition, I discussed the patient's condition and treatment options with them when possible. I have also reviewed and agree with the past medical, family and social history and nursing notes unless otherwise noted. All of the patient's questions were answered and visual aides were used when possible. The visit was spent discussing/counseling the patient, reviewing data, coordinating care, reviewing available imaging and creating a plan. The patient was seen and examined independently and relevant data reviewed by myself. A full chart review was performed when available. At times this note may reflect a late entry to the visit that occurred on the date noted below ASSESSMENT: patient complex history. Admission to [facility] approximately four days ago. Patient with acute blood loss anemia from a digital ulceration. The patient has undergone multiple transfusions and interventions at [facility]. Most recently the patient underwent clipping of dole ulcers, epinephrine injection, followed by argon beam. There was a concern for perforation, and therefore a stent also was placed in the duodenum. The patient this a.m. underwent CTA to rule out PE since he has a history of blood clots. On the CT scan, he was found to have free air and fluid surrounding the spleen. He subsequently underwent a IVC filter and was sent to [facility] for higher level of care. Patient has a benign abdomen, he does have mild pain in the left of a quatrain. No dyspnea. Vital signs are stable. PLAN: in light of the free air and fluid surrounding the spleen, we will take the patient for diagnostic laparoscopy. The CT scan is not substantially different from the CTA earlier today however, there?s a concern for possible contrast extrapolation. We will perform a EGD, diagnostic laparoscopy and abdominal washout. I discussed this procedure with the Family at bedside. They are agreeable. [facility] 08-09-2024 Emergency department Note Patient taken to OR [facility] 08-09-2024 Emergency department Note Patient taken to OR Emergency Department Encounter [facility] EMERGENCY DEPT Patient: Laine Garcia : 1955 Date of Evaluation: 08/09/2024 ED KIN Provider: Dano James PA-C EDcare was supervised by Dr. Earl who independently examined and evaluated the patient. Please see their attestation note for further details. Chief Complaint Chief Complaint Patient presents with Shortness of Breath ABDI Garcia is a 69 y.o. male who presents to the emergency department for shortness of breath and bowel perforation. Patient transferred here from outside ED. Patient was found to have GI bleed, bilateral PEs and perforated viscus. Patient underwent EGD for repair of GI bleeding and did have a IVC filter placed today. Sent here for surgery evaluation and possible perforated bowel. Limitations to history: None Outside historians: EMR Past History No past medical history on file. No past surgical history on file. Social History Socioeconomic History Marital status: Medications/Allergies Previous Medications No medications on file Allergies Allergen Reactions Penicillins Physical Exam BP (!) 146/116 Pulse 90 Temp 37.3 C (99.1 F) Resp 16 Wt 77.1 kg (170 lb) SpO2 94% Physical Exam GENERAL APPEARANCE: Awake and alert. Cooperative. HEENT: Normocephalic. Atraumatic. No trismus. NECK: Supple. Trachea midline. CARDIO: Normal rate. Radial pulses symmetrical and palpable LUNGS: Respirations unlabored. CTAB. ABDOMEN: Soft. Diffuse abdominal tenderness. NEUROLOGICAL: No gross facial drooping. No obvious neurologic deficits. Moves all 4 extremities spontaneously. SCREENINGS D Labs: Results for orders placed or performed during the hospital encounter of 08/09/24 ECG 12 lead Collection Time: 08/09/24 7:21 PM Result Value Ref Range Heart Rate 82 bpm QRSD Interval 104 ms QT Interval 374 ms QTC Interval 437 ms P Lawrence 50 degrees QRS Lawrence -9 degrees T Wave Lawrence 34 degrees MS Interval 142 ms Lactic acid with reflex Collection Time: 08/09/24 7:42 PM Result Value Ref Range LACTIC ACID 0.7 0.5 - 2.2 mmol/L Comprehensive metabolic panel Collection Time: 08/09/24 7:42 PM Result Value Ref Range SODIUM 141 136 - 145 mmol/L POTASSIUM 3.2 (L) 3.5 - 5.1 mmol/L CHLORIDE 107 98 - 107 mmol/L CARBON DIOXIDE 25 23 - 31 mmol/L ANION GAP 9 3 - 13 mmol/L UREA NITROGEN 14 9 - 23 mg/dL CREATININE 0.60 (L) 0.72 - 1.25 mg/dL GLUCOSE 112 82 - 115 mg/dL CALCIUM 7.4 (L) 8.8 - 10.0 mg/dL AST (SGOT) 15 <34 U/L ALT <6 <40 U/L ALKALINE PHOSPHATASE 52 40 - 150 U/L ALBUMIN 2.1 (L) 3.4 - 4.8 g/dL BILIRUBIN, TOTAL 0.6 <1.2 mg/dL TOTAL PROTEIN 4.8 (L) 6.4 - 8.3 g/dL eGFR >90.0 >60.0 mL/min/1.73m*2 Type and screen Collection Time: 08/09/24 7:42 PM Result Value Ref Range ABO Grouping O Antibody Screen NEG Rh Type POS CBC auto differential Collection Time: 08/09/24 7:42 PM Result Value Ref Range Auto WBC 9.9 3.6 - 10.7 10*3/uL RBC 3.40 (L) 4.40 - 5.90 10*6/uL Hemoglobin 10.2 (L) 13.0 - 18.0 g/dL Hematocrit 29.6 (L) 40.0 - 52.0 % MCV 87.1 77.0 - 99.0 fL MCH 30.0 26.0 - 34.0 pg MCHC 34.5 30.5 - 36.0 % RDW 14.7 11.5 - 15.0 % Platelets 207 140 - 440 10*3/uL MPV 9.4 9.0 - 12.7 fL nRBC 0.0 0.0 - 2.0 /100 WBCs Neutrophils Relative 87.2 (H) 38.0 - 82.0 % Lymphocytes Relative 5.5 (L) 15.0 - 45.0 % Monocytes Relative 6.0 5.0 - 13.0 % Eosinophils Relative 0.6 0.0 - 6.0 % Basophils Relative 0.2 0.0 - 2.0 % Immature Grans % 0.5 0.0 - 2.0 % Neutrophils Absolute 8.6 (H) 1.8 - 7.5 10*3/uL Lymphocytes Absolute 0.5 (L) 1.0 - 4.3 10*3/uL Monocytes Absolute 0.6 0.0 - 0.9 10*3/uL Eosinophils Absolute 0.1 0.0 - 0.5 10*3/uL Basophils Absolute 0.0 0.0 - 0.2 10*3/uL Immature Grans Absolute 0.1 (H) <0.1 10*3/uL Protime-INR Collection Time: 08/09/24 7:42 PM Result Value Ref Range PROTHROMBIN TIME 11.9 9.0 - 12.0 s INR 1.1 0.9 - 1.1 APTT Collection Time: 08/09/24 7:42 PM Result Value Ref Range APTT 30.9 (H) 20.0 - 30.5 s Confirmatory ABO/Rh Collection Time: 08/09/24 7:42 PM Result Value Ref Range ABO Grouping O Rh Type POS Radiographs: CT abdomen pelvis w contrast Final Result Addendum (preliminary) 1 of 1 Patient Name: LAINE GARCIA : 1955 Exam Date/Time: 08/09/2024 21:15 Procedure: CT ABDOMEN PELVIS W CONTRAST Ordering Provider: EARL JEFFREY Reason For Exam: CF duodenal perforation --------ADDENDUM #1 -------- Comparison is made to CTA of the abdomen and pelvis from 08/09/2024. Fluid in the LEFT upper quadrant around the spleen is about the same. Small amount of dense material, presumably from previous oral contrast administration, similar on the more recent CTA compared to today. No contrast extravasation seen around the duodenum currently. CRITICAL TEST RESULT COMMUNICATION: Notification of these findings was made to Dr. Spann via [employer] on 08/09/2024 10:10 PM EDT. Report Dictated on Electronically Signed By: Jose D Ayon MD Electronically Signed Date/Time: 08/09/2024 10:10 PM EDT --------ORIGINAL REPORT -------- CT ABDOMEN AND PELVIS CLINICAL INDICATION: CF duodenal perforation TECHNIQUE: CT scan of the abdomen and pelvis with IV contrast. Multiplanar reformations. Dose reduction was employed with automated exposure control. COMPARISON: 08/05/2024 from [facility] FINDINGS: Small RIGHT and moderate to large LEFT pleural effusions. Bibasilar atelectasis. Coronary artery calcifications are noted. Liver shows no significant abnormality. Gallbladder and biliary tree appear normal. Spleen appears normal. In the LEFT upper quadrant there is gas and fluid noted around the spleen, some of this appears loculated. This also contains some higher density material, presumably oral contrast. Adrenal glands show no significant abnormality. Parapelvic renal cysts bilaterally, upper pole simple appearing cortical cyst on the RIGHT. No follow-up required. Pancreas shows no significant abnormality. IVC filter noted. There is a stent in the distal stomach and proximal duodenum. Nonaneurysmal aorta. Diffuse bladder wall thickening, but bladder is not well distended. No bowel obstruction. Normal appendix. No ureteral calculus seen. IMPRESSION: 1. Gas fluid and contrast in the LEFT upper quadrant around the spleen some of which appears loculated. Presumably this relates to history of duodenal perforation. There is a stent in the distal stomach and proximal duodenum. These findings are new since the previous study. 2. Pleural effusions much larger on the LEFT. 3. Coronary artery disease. CRITICAL TEST RESULT COMMUNICATION: Notification of these findings was made to Dano James via [employer] on 08/09/2024 9:33 PM EDT. Report Dictated on Electronically Signed By: Jose D Ayon MD Electronically Signed Date/Time: 08/09/2024 9:55 PM EDT Final 1. Gas fluid and contrast in the LEFT upper quadrant around the spleen some of which appears loculated. Presumably this relates to history of duodenal perforation. There is a stent in the distal stomach and proximal duodenum. These findings are new since the previous study. 2. Pleural effusions much larger on the LEFT. 3. Coronary artery disease. CRITICAL TEST RESULT COMMUNICATION: Notification of these findings was made to Dano James via [employer] on 08/09/2024 9:33 PM EDT. Report Dictated on Electronically Signed By: Jose D Ayon MD Electronically Signed Date/Time: 08/09/2024 9:55 PM EDT : EKG: All EKG's areinterpreted by the Emergency Department Physician in the absence of a physical medicine physician. see their note for interpretation of EKG. EMERGENCY DEPARTMENT COURSE and DIFFERENTIAL DIAGNOSIS/MDM: External Records Review: Reviewed Care Everywhere Social Determinants of Health: none. Laine Garcia is a 69 y.o. male who presented to the emergency department for abdominal pain and possible bowel perforation. Differential diagnosis included bowel perforation, PE, GI bleed. Our workup consisted of ordering/reviewing CBC, CMP, lipase, lactate, type and screen, PT/INR, CT abdomen/pel and showed no leukocytosis. CT abdomen/pelvis showed duodenal perforation. Surgery was consulted and will see the patient. Surgery will admit patient and take the patient to the OR. Final Diagnosis: 1. Duodenal perforation (CMS/HCC) (HCC) Medications lactated Ringer's infusion (50 mL/hr IntraVENous New Bag 08/09/242031) pantoprazole (ProtoNix) EC tablet 40 mg ( Oral See Alternative 08/09/242031) Or pantoprazole (ProtoNix) 40 mg in sodium chloride (PF) 0.9 % 10 mL injection (40 mg IntraVENous Given 08/09/242031) diatrizoate meglumine-sodium (Gastrografin) 66-10 % solution 30 mL (30 mL Oral Given 08/09/242031) iopamidol (Isovue-370) 76 % injection 100 mL (100 mL IntraVENous Given 08/09/242117) CRITICAL CARE TIME Total Critical Care time was 35 minutes, excluding separately reportable procedures. There was a high probability of clinically significant/life threatening deterioration in the patient's condition which required my urgent intervention. CONSULTS: None PROCEDURES: Unless otherwise noted below, none Procedures DISPOSITION/PLAN Admit 08/09/2024 10:37:41 PM PATIENT REFERRED TO: No follow-up provider specified. DISCHARGE MEDICATIONS: New Prescriptions No medications on file @[facility]([id number]:LAST:1)@ (Please note: Portions of this note were completed with a voice recognition program. Efforts were made to edit the dictations but occasionally words and phrases are mis-transcribed.) Form [id number] Dano James PA-C [employer] Dano James PA-C 08/10/24 0203 Cosigned by Ganesh Earl MD at 08/10/2024 2:16 AM EDT Pt transferred from [facility] for b/l PE and perforated ulcer. Pt had IVC filter placed today documented in this encounter [facility] 08-09-2024 Emergency department Triage note Pt transferred from [facility] for b/l PE and perforated ulcer. Pt had IVC filter placed today [facility] 08-09-2024 Physician Emergency department Note Emergency Department Encounter [facility] EMERGENCY DEPT Patient: Laine Garcia : 1955 Date of Evaluation: 08/09/2024 ED [facility] Provider: Dano James PA-C EDcare was supervised by Dr. Earl who independently examined and evaluated the patient. Please see their attestation note for further details. Chief Complaint Chief Complaint Patient presents with Shortness of Breath ABDI Garcia is a 69 y.o. male who presents to the emergency department for shortness of breath and bowel perforation. Patient transferred here from outside ED. Patient was found to have GI bleed, bilateral PEs and perforated viscus. Patient underwent EGD for repair of GI bleeding and did have a IVC filter placed today. Sent here for surgery evaluation and possible perforated bowel. Limitations to history: None Outside historians: EMR Past History No past medical history on file. No past surgical history on file. Social History Socioeconomic History Marital status: Medications/Allergies Previous Medications No medications on file Allergies Allergen Reactions Penicillins Physical Exam BP (!) 146/116 Pulse 90 Temp 37.3 C (99.1 F) Resp 16 Wt 77.1 kg (170 lb) SpO2 94% Physical Exam GENERAL APPEARANCE: Awake and alert. Cooperative. HEENT: Normocephalic. Atraumatic. No trismus. NECK: Supple. Trachea midline. CARDIO: Normal rate. Radial pulses symmetrical and palpable LUNGS: Respirations unlabored. CTAB. ABDOMEN: Soft. Diffuse abdominal tenderness. NEUROLOGICAL: No gross facial drooping. No obvious neurologic deficits. Moves all 4 extremities spontaneously. SCREENINGS D Labs: Results for orders placed or performed during the hospital encounter of 08/09/24 ECG 12 lead Collection Time: 08/09/24 7:21 PM Result Value Ref Range Heart Rate 82 bpm QRSD Interval 104 ms QT Interval 374 ms QTC Interval 437 ms P Lawrence 50 degrees QRS Lawrence -9 degrees T Wave Lawrence 34 degrees MS Interval 142 ms Lactic acid with reflex Collection Time: 08/09/24 7:42 PM Result Value Ref Range LACTIC ACID 0.7 0.5 - 2.2 mmol/L Comprehensive metabolic panel Collection Time: 08/09/24 7:42 PM Result Value Ref Range SODIUM 141 136 - 145 mmol/L POTASSIUM 3.2 (L) 3.5 - 5.1 mmol/L CHLORIDE 107 98 - 107 mmol/L CARBON DIOXIDE 25 23 - 31 mmol/L ANION GAP 9 3 - 13 mmol/L UREA NITROGEN 14 9 - 23 mg/dL CREATININE 0.60 (L) 0.72 - 1.25 mg/dL GLUCOSE 112 82 - 115 mg/dL CALCIUM 7.4 (L) 8.8 - 10.0 mg/dL AST (SGOT) 15 <34 U/L ALT <6 <40 U/L ALKALINE PHOSPHATASE 52 40 - 150 U/L ALBUMIN 2.1 (L) 3.4 - 4.8 g/dL BILIRUBIN, TOTAL 0.6 <1.2 mg/dL TOTAL PROTEIN 4.8 (L) 6.4 - 8.3 g/dL eGFR >90.0 >60.0 mL/min/1.73m*2 Type and screen Collection Time: 08/09/24 7:42 PM Result Value Ref Range ABO Grouping O Antibody Screen NEG Rh Type POS CBC auto differential Collection Time: 08/09/24 7:42 PM Result Value Ref Range Auto WBC 9.9 3.6 - 10.7 10*3/uL RBC 3.40 (L) 4.40 - 5.90 10*6/uL Hemoglobin 10.2 (L) 13.0 - 18.0 g/dL Hematocrit 29.6 (L) 40.0 - 52.0 % MCV 87.1 77.0 - 99.0 fL MCH 30.0 26.0 - 34.0 pg MCHC 34.5 30.5 - 36.0 % RDW 14.7 11.5 - 15.0 % Platelets 207 140 - 440 10*3/uL MPV 9.4 9.0 - 12.7 fL nRBC 0.0 0.0 - 2.0 /100 WBCs Neutrophils Relative 87.2 (H) 38.0 - 82.0 % Lymphocytes Relative 5.5 (L) 15.0 - 45.0 % Monocytes Relative 6.0 5.0 - 13.0 % Eosinophils Relative 0.6 0.0 - 6.0 % Basophils Relative 0.2 0.0 - 2.0 % Immature Grans % 0.5 0.0 - 2.0 % Neutrophils Absolute 8.6 (H) 1.8 - 7.5 10*3/uL Lymphocytes Absolute 0.5 (L) 1.0 - 4.3 10*3/uL Monocytes Absolute 0.6 0.0 - 0.9 10*3/uL Eosinophils Absolute 0.1 0.0 - 0.5 10*3/uL Basophils Absolute 0.0 0.0 - 0.2 10*3/uL Immature Grans Absolute 0.1 (H) <0.1 10*3/uL Protime-INR Collection Time: 08/09/24 7:42 PM Result Value Ref Range PROTHROMBIN TIME 11.9 9.0 - 12.0 s INR 1.1 0.9 - 1.1 APTT Collection Time: 08/09/24 7:42 PM Result Value Ref Range APTT 30.9 (H) 20.0 - 30.5 s Confirmatory ABO/Rh Collection Time: 08/09/24 7:42 PM Result Value Ref Range ABO Grouping O Rh Type POS Radiographs: CT abdomen pelvis w contrast Final Result Addendum (preliminary) 1 of 1 [facility] 1955 [id number] Exam Date/Time: 08/09/2024 21:15 Procedure: CT ABDOMEN PELVIS W CONTRAST Ordering Provider: EARL JEFFREY Reason For Exam: CF duodenal perforation --------ADDENDUM #1 -------- Comparison is made to CTA of the abdomen and pelvis from 08/09/2024. Fluid in the LEFT upper quadrant around the spleen is about the same. Small amount of dense material, presumably from previous oral contrast administration, similar on the more recent CTA compared to today. No contrast extravasation seen around the duodenum currently. CRITICAL TEST RESULT COMMUNICATION: Notification of these findings was made to Dr. Spann via [employer] on 08/09/2024 10:10 PM EDT. Report Dictated on Electronically Signed By: Jose D Ayon MD Electronically Signed Date/Time: 08/09/2024 10:10 PM EDT --------ORIGINAL REPORT -------- CT ABDOMEN AND PELVIS CLINICAL INDICATION: CF duodenal perforation TECHNIQUE: CT scan of the abdomen and pelvis with IV contrast. Multiplanar reformations. Dose reduction was employed with automated exposure control. COMPARISON: 08/05/2024 from [facility] FINDINGS: Small RIGHT and moderate to large LEFT pleural effusions. Bibasilar atelectasis. Coronary artery calcifications are noted. Liver shows no significant abnormality. Gallbladder and biliary tree appear normal. Spleen appears normal. In the LEFT upper quadrant there is gas and fluid noted around the spleen, some of this appears loculated. This also contains some higher density material, presumably oral contrast. Adrenal glands show no significant abnormality. Parapelvic renal cysts bilaterally, upper pole simple appearing cortical cyst on the RIGHT. No follow-up required. Pancreas shows no significant abnormality. IVC filter noted. There is a stent in the distal stomach and proximal duodenum. Nonaneurysmal aorta. Diffuse bladder wall thickening, but bladder is not well distended. No bowel obstruction. Normal appendix. No ureteral calculus seen. IMPRESSION: 1. Gas fluid and contrast in the LEFT upper quadrant around the spleen some of which appears loculated. Presumably this relates to history of duodenal perforation. There is a stent in the distal stomach and proximal duodenum. These findings are new since the previous study. 2. Pleural effusions much larger on the LEFT. 3. Coronary artery disease. CRITICAL TEST RESULT COMMUNICATION: Notification of these findings was made to Dano James via [employer] on 08/09/2024 9:33 PM EDT. Report Dictated on Electronically Signed By: Jose D Ayon MD Electronically Signed Date/Time: 08/09/2024 9:55 PM EDT Final 1. Gas fluid and contrast in the LEFT upper quadrant around the spleen some of which appears loculated. Presumably this relates to history of duodenal perforation. There is a stent in the distal stomach and proximal duodenum. These findings are new since the previous study. 2. Pleural effusions much larger on the LEFT. 3. Coronary artery disease. CRITICAL TEST RESULT COMMUNICATION: Notification of these findings was made to Dano James via [employer] on 08/09/2024 9:33 PM EDT. Report Dictated on Electronically Signed By: Jose D Ayon MD Electronically Signed Date/Time: 08/09/2024 9:55 PM EDT : EKG: All EKG's areinterpreted by the Emergency Department Physician in the absence of a physical medicine physician. see their note for interpretation of EKG. EMERGENCY DEPARTMENT COURSE and DIFFERENTIAL DIAGNOSIS/MDM: External Records Review: Reviewed Care Everywhere Social Determinants of Health: none. Laine Garcia is a 69 y.o. male who presented to the emergency department for abdominal pain and possible bowel perforation. Differential diagnosis included bowel perforation, PE, GI bleed. Our workup consisted of ordering/reviewing CBC, CMP, lipase, lactate, type and screen, PT/INR, CT abdomen/pel and showed no leukocytosis. CT abdomen/pelvis showed duodenal perforation. Surgery was consulted and will see the patient. Surgery will admit patient and take the patient to the OR. Final Diagnosis: 1. Duodenal perforation (CMS/HCC) (HCC) Medications lactated Ringer's infusion (50 mL/hr IntraVENous New Bag 08/09/242031) pantoprazole (ProtoNix) EC tablet 40 mg ( Oral See Alternative 08/09/242031) Or pantoprazole (ProtoNix) 40 mg in sodium chloride (PF) 0.9 % 10 mL injection (40 mg IntraVENous Given 08/09/242031) diatrizoate meglumine-sodium (Gastrografin) 66-10 % solution 30 mL (30 mL Oral Given 08/09/242031) iopamidol (Isovue-370) 76 % injection 100 mL (100 mL IntraVENous Given 08/09/242117) CRITICAL CARE TIME Total Critical Care time was 35 minutes, excluding separately reportable procedures. There was a high probability of clinically significant/life threatening deterioration in the patient's condition which required my urgent intervention. CONSULTS: None PROCEDURES: Unless otherwise noted below, none Procedures DISPOSITION/PLAN Admit 08/09/2024 10:37:41 PM PATIENT REFERRED TO: No follow-up provider specified. DISCHARGE MEDICATIONS: New Prescriptions No medications on file @[facility]([id number]:LAST:1)@ (Please note: Portions of this note were completed with a voice recognition program. Efforts were made to edit the dictations but occasionally words and phrases are mis-transcribed.) Form [id number] Dano James PA-C [employer] Dano James PA-C 08/10/24 0203 Cosigned by Ganesh Earl MD at 08/10/2024 2:16 AM EDT [place] Phone: 08-09-2024 Physician Emergency department Note Patient: Laine Garcia : 1955 Date of Evaluation: 08/09/2024 ED Supervising Physician: Ganesh Earl MD I personally evaluated Laine Garcia and made/approved the management plan and take responsibility for the patient management. This will serve as my Supervisory note and shared attestation. I did perform a substantive portion of the visit including all aspects of the Medical Decision Making. I wore appropriate PPE for the entirety of this encounter. In brief, Laine Garcia is a 69 y.o. that presents to the emergency department as a transfer from an outside facility with concerns for perforated viscus. Patient was admitted to an outside facility 5 days ago after having a syncopal episode. States he has been having off-and-on abdominal pain for months. States that they found a bleeding ulcer on EGD and placed a stent secondary to the ulcer being in the duodenum.. States that the next day became short of breath and they found pulmonary emboli in bilateral lungs. They placed an IVC filter. States that he was in the EGD suit today for EGD secondary to bleeding. States that they did a CAT scan after the EGD secondary to concern for perforated viscus and saw air on the CAT scan. He was transferred here for surgical consult. For full details of the encounter please see the [facility] note dated same day. The differential diagnosis associated with this patient's presentation includes acute perforated viscus, acute GI bleed, acute electrolyte abnormality, acute pulmonary embolism. I personally discussed the patient's management with other clinicians: All diagnostic, treatment, and disposition decisions were made by myself in conjunction with the Resident. I also supervised hernandez portions of any procedures performed by the Resident. For all further details of the patient's emergency department visit, please see their documentation. (Comment: Please note this report has been produced using speech recognition software and may contain errors related to that system including errors in grammar, punctuation, and spelling, as well as words and phrases that may be inappropriate. If there are any questions or concerns please feel free to contact the dictating provider for clarification.) Ganesh Earl MD [employer] [facility] CHIEF COMPLAINT Chief Complaint Patient presents with Shortness of Breath HISTORY OF PRESENT ILLNESS (Location/Symptom, Timing/Onset, Context/Setting, Quality, Duration, Modifying Factors, Severity) Note limiting factors. I wore appropriate PPE for the entirety of this encounter. Nursing Notes were reviewed. Limitations to history: None Outside historians: None REVIEW OF SYSTEMS Review of Systems Pertinent positives and negatives as per HPI. PAST MEDICAL HISTORY No past medical history on file. SURGICAL HISTORY Past Surgical History: Procedure Laterality Date OTHER SURGICAL HISTORY N/A 08/10/2024 APAROSCOPY, DIAGNOSTIC, LYSIS OF ADHESIONS, EGD CURRENT MEDICATIONS There are no discharge medications for this patient. ALLERGIES Penicillins FAMILY HISTORY No family history on file. SOCIAL HISTORY Social History Socioeconomic History Marital status: SCREENINGS [place] Coma Scale Best Eye Response: Spontaneous Best Verbal Response: Oriented Best Motor Response: Follows commands [place] Coma Scale Score: 15 PHYSICAL EXAM ED Triage Vitals [08/09/24 1856] Temp Heart Rate Resp BP 37.3 C (99.1 F) 78 16 (!) 147/96 SpO2 Temp src Heart Rate Source Patient Position 93 % -- -- -- BP Location FiO2 (%) -- -- Physical Exam Vitals and nursing note reviewed. Constitutional: General: He is not in acute distress. Appearance: He is well-developed. HENT: Head: Normocephalic and atraumatic. Eyes: Conjunctiva/sclera: Conjunctivae normal. Cardiovascular: Rate and Rhythm: Normal rate and regular rhythm. Pulmonary: Effort: Pulmonary effort is normal. Breath sounds: Normal breath sounds. Abdominal: Palpations: Abdomen is soft. Comments: Mild epigastric tenderness to palpation, no distention Musculoskeletal: General: No swelling. Cervical back: Neck supple. Skin: General: Skin is warm and dry. Neurological: Mental Status: He is alert. Psychiatric: Mood and Affect: Mood normal. DIAGNOSTIC RESULTS Procedures/EKG: ECG done August 09, 2024 at 7:17 PM and interpreted by me at 7:20 PM shows sinus rhythm, ventricular of 82 bpm, no ST segment elevation, nonspecific ST depression in lateral leads, QTc of 437 RADIOLOGY (Per Emergency Physician): Interpretation per the Radiologist below, if available at the time of this note: CT abdomen pelvis w contrast Final Result Addendum (preliminary) 1 of 1 [facility] Name: [facility] 1955 [id number] Exam Date/Time: 08/09/2024 21:15 Procedure: CT ABDOMEN PELVIS W CONTRAST Ordering Provider: EARL JEFFREY Reason For Exam: CF duodenal perforation --------ADDENDUM #1 -------- Comparison is made to CTA of the abdomen and pelvis from 08/09/2024. Fluid in the LEFT upper quadrant around the spleen is about the same. Small amount of dense material, presumably from previous oral contrast administration, similar on the more recent CTA compared to today. No contrast extravasation seen around the duodenum currently. CRITICAL TEST RESULT COMMUNICATION: Notification of these findings was made to Dr. Spann via [employer] on 08/09/2024 10:10 PM EDT. Report Dictated on Electronically Signed By: Jose D Ayon MD Electronically Signed Date/Time: 08/09/2024 10:10 PM EDT --------ORIGINAL REPORT -------- CT ABDOMEN AND PELVIS CLINICAL INDICATION: CF duodenal perforation TECHNIQUE: CT scan of the abdomen and pelvis with IV contrast. Multiplanar reformations. Dose reduction was employed with automated exposure control. COMPARISON: 08/05/2024 from [facility] FINDINGS: Small RIGHT and moderate to large LEFT pleural effusions. Bibasilar atelectasis. Coronary artery calcifications are noted. Liver shows no significant abnormality. Gallbladder and biliary tree appear normal. Spleen appears normal. In the LEFT upper quadrant there is gas and fluid noted around the spleen, some of this appears loculated. This also contains some higher density material, presumably oral contrast. Adrenal glands show no significant abnormality. Parapelvic renal cysts bilaterally, upper pole simple appearing cortical cyst on the RIGHT. No follow-up required. Pancreas shows no significant abnormality. IVC filter noted. There is a stent in the distal stomach and proximal duodenum. Nonaneurysmal aorta. Diffuse bladder wall thickening, but bladder is not well distended. No bowel obstruction. Normal appendix. No ureteral calculus seen. IMPRESSION: 1. Gas fluid and contrast in the LEFT upper quadrant around the spleen some of which appears loculated. Presumably this relates to history of duodenal perforation. There is a stent in the distal stomach and proximal duodenum. These findings are new since the previous study. 2. Pleural effusions much larger on the LEFT. 3. Coronary artery disease. CRITICAL TEST RESULT COMMUNICATION: Notification of these findings was made to Dano James via [employer] on 08/09/2024 9:33 PM EDT. Report Dictated on Electronically Signed By: Jose D Ayon MD Electronically Signed Date/Time: 08/09/2024 9:55 PM EDT Final 1. Gas fluid and contrast in the LEFT upper quadrant around the spleen some of which appears loculated. Presumably this relates to history of duodenal perforation. There is a stent in the distal stomach and proximal duodenum. These findings are new since the previous study. 2. Pleural effusions much larger on the LEFT. 3. Coronary artery disease. CRITICAL TEST RESULT COMMUNICATION: Notification of these findings was made to Dano James via [employer] on 08/09/2024 9:33 PM EDT. Report Dictated on Electronically Signed By: Jose D Ayon MD Electronically Signed Date/Time: 08/09/2024 9:55 PM EDT ED BEDSIDE ULTRASOUND: Performed by ED Physician - none LABS: Labs Reviewed COMPREHENSIVE METABOLIC PANEL - Abnormal Result Value SODIUM 141 POTASSIUM 3.2 (*) CHLORIDE 107 CARBON DIOXIDE 25 ANION GAP 9 UREA NITROGEN 14 CREATININE 0.60 (*) GLUCOSE 112 CALCIUM 7.4 (*) AST (SGOT) 15 ALT <6 ALKALINE PHOSPHATASE 52 ALBUMIN 2.1 (*) BILIRUBIN, TOTAL 0.6 TOTAL PROTEIN 4.8 (*) eGFR >90.0 CBC WITH AUTO DIFFERENTIAL - Abnormal Auto WBC 9.9 RBC 3.40 (*) Hemoglobin 10.2 (*) Hematocrit 29.6 (*) MCV 87.1 MCH 30.0 MCHC 34.5 RDW 14.7 Platelets 207 MPV 9.4 nRBC 0.0 Neutrophils Relative 87.2 (*) Lymphocytes Relative 5.5 (*) Monocytes Relative 6.0 Eosinophils Relative 0.6 Basophils Relative 0.2 Immature Grans % 0.5 Neutrophils Absolute 8.6 (*) Lymphocytes Absolute 0.5 (*) Monocytes Absolute 0.6 Eosinophils Absolute 0.1 Basophils Absolute 0.0 Immature Grans Absolute 0.1 (*) APTT - Abnormal APTT 30.9 (*) Narrative: NOTE: The therapeutic time for Heparin anticoagulation, based on Xa activity inhibition, is an APTT of 46-80 seconds. LACTIC ACID WITH REFLEX - Normal LACTIC ACID 0.7 PROTHROMBIN TIME - Normal PROTHROMBIN TIME 11.9 INR 1.1 H. PYLORI STOOL ANTIGEN BLOOD TYPE AND SCREEN GEL ABO Grouping O Antibody Screen NEG Rh Type POS CONFIRMATORY ABO/RH ABO Grouping O Rh Type POS COMPREHENSIVE METABOLIC PANEL WITH MG REFLEX Narrative: The following orders were created for panel order Comprehensive Metabolic Panel with Mg Reflex. Procedure Abnormality Status --------- ------ Comprehensive metabolic ...[[id number]] Please view results for these tests on the individual orders. LACTIC ACID WITH REFLEX COMPREHENSIVE METABOLIC PANEL CALCIUM, IONIZED All other labs were within normal range or not returned as of this dictation. EMERGENCY DEPARTMENT COURSE and DIFFERENTIAL DIAGNOSIS/MDM: Vitals: Vitals: 08/10/24 0048 08/10/24 0100 08/10/24 0101 08/10/24 0115 BP: 137/73 133/81 133/81 129/71 Pulse: 99 87 84 Resp: 20 17 Temp: (!) 35.8 C (96.4 F) (!) 35.9 C (96.7 F) TempSrc: Tympanic Tympanic SpO2: 96% (!) 88% 92% Weight: Diagnoses as of 08/10/248 Duodenal perforation (CMS/HCC) (HCC) Medications lactated Ringer's infusion ( IntraVENous Stopped 08/10/24 0033) pantoprazole (ProtoNix) 40 mg in sodium chloride (PF) 0.9 % 10 mL injection ( IntraVENous Dose Auto Held 08/17/24 2100) sodium chloride 0.9 % bolus 500 mL (has no administration in time range) lactated ringers infusion (has no administration in time range) sodium chloride 0.9% (NS) flush 10 mL (has no administration in time range) sodium chloride 0.9% (NS) flush 10 mL (has no administration in time range) sodium chloride 0.9 % infusion (has no administration in time range) HYDROmorphone (Dilaudid) injection 0.25 mg (has no administration in time range) HYDROmorphone (Dilaudid) injection 0.5 mg (0.5 mg IntraVENous Given 08/10/24 0058) oxyCODONE (Roxicodone) immediate release tablet 5 mg (has no administration in time range) Or oxyCODONE (Roxicodone) immediate release tablet 10 mg (has no administration in time range) ondansetron (Zofran) injection 4 mg (has no administration in time range) LORazepam (Ativan) injection 0.5 mg (has no administration in time range) diphenhydrAMINE (BENADryl) injection 12.5 mg (has no administration in time range) labetalol (Normodyne,Trandate) injection 5 mg (has no administration in time range) Or hydrALAZINE (Apresoline) injection 5 mg (has no administration in time range) diatrizoate meglumine-sodium (Gastrografin) 66-10 % solution 30 mL (30 mL Oral Given 08/09/242031) iopamidol (Isovue-370) 76 % injection 100 mL (100 mL IntraVENous Given 08/09/242117) REVAL: [facility] CRITICAL CARE TIME CONSULTS: None PROCEDURES: Unless otherwise noted below, none Procedures Patients symptoms are consistent with sepsis, severe sepsis, or septic shock (If yes use ".sepsiscoremeasure"): No FINAL IMPRESSION 1. Duodenal perforation (CMS/HCC) ([facility]) DISPOSITION Admit 08/09/2024 10:37:41 PM PATIENT REFERRED TO: No follow-up provider specified. DISCHARGE MEDICATIONS: There are no discharge medications for this patient. (Comment: Please note this report has been produced using speech recognition software and may contain errors related to that system including errors in grammar, punctuation, and spelling, as well as words and phrases that may be inappropriate. If there are any questions or concerns please feel free to contact the dictating provider for clarification.) Ganesh Earl MD (electronically signed) Emergency Medicine Provider Ganesh Earl MD 08/10/24 0118 [place] Phone: 08-09-2024 Progress note [facility] 08-09-2024 Procedure note [facility] 08-09-2024 Discharge summary Note Date/Time August 09, 2024 2:05pm [facility] Medical Records Department [address] [place] [address] Discharge Summary 08/09/24 1345 MR#: [id number] Acct: [id number] Name: LAINE GARCIA Rep #:[id number] : 1955 69 From: Brandie Spears DO PCP: Dr. Dante Gurrola MD Status:ADM I N Location: [place] [address] Providers Date of Admission: 08/05/24 Date of Discharge: 08/09/24 Primary Care Physician: Dr. Dante Gurrola DO Consultations 08/05/24 16:19 Consult: Gastroenterology Routine Consulting Provider: [facility] Reason for Consult: GI bleed EMERGENT Consult: No MD Notified: Yes Date Notified: 08/05/24 Time Notified: 15:00 Method of Notification: Verbal 08/09/24 09:20 Consult: General Surgery Routine Consulting Provider: Hector Bhakta Reason for Consult: Free intrabadomial air post EGD with multiple duodonal ulcers EMERGENT Consult: No Notified: Yes Date Notified: 08/09/24 Time Notified: 09:20 Method of Notification: Verbal Consult: Vascular Surgery Routine Consulting Provider: Lebron Francisco Reason for Consult: B PE with recent GIB EMERGENT Consult: No Notified: Yes Date Notified: 08/09/24 Time Notified: 09:21 Method of Notification: Verbal Reason For Visit: GI BLEED Diagnosis Discharge Diagnosis (1) Pulmonary embolism: Status: Acute Code(s): I26.99 - Other pulmonary embolism without acute cor pulmonale Qualifiers: Pulmonary embolism type: multiple subsegmental (without acute cor pulmonale) Qualified Code(s): I26.94 - Multiple subsegmental thrombotic pulmonary emboli without acute cor pulmonale Medications at Discharge Home Medications aspirin 81 mg chewable tablet 81 mg PO DAILY heart health 01/22/20 multivitamin 1 tab PO DAILY supplement 01/22/20 omega-3 fatty acids 1,000 mg capsule 2,000 mg PO BID supplement 01/22/20 turmeric 450 mg-turmeric root extract 50 mg capsule 1 cap PO DAILY supplement 01/22/20 polyethylene glycol 3350 17 gram/dose oral powder (ClearLax) 17 g PO DAILY PRN laxative effect 08/05/24 psyllium husk 0.4 gram capsule (Daily Fiber) 0.8 g PO BID 08/05/24 Hospital Course Procedures Blood transfusion, EGD (X 2 08/05/2024, 08/07/2024), EKG, IVC filter placement (08/09/2024) and - (KUB x 2/CT abdomen pelvis x 3/CTA chest) Summary of Care Provided Minutes Spent on Discharge: 43 Hospital Course: Mr. Garcia is a 69-year-old Christianity white male who presented to the emergency department at [facility] on 08/06/2019 2:25 syncopal episodes thathe experienced at home and 1 episode of maroon-colored stools. Patient had beenhaving abdominal discomfort with increasing epigastric pain for several months prior to presentation. He felt it was due to constipation. He had been taking aspirin for previous "blood clots.". He states he had blood clots in 2016 aftersurgery for a hiatal hernia and then after he was told to take aspirin on a regular basis. Vital signs on presentation showed a temperature of 98.8, heart rate 74, respiratory was 13, blood pressure was 121/70 and pulse ox was 99% on room air. CBC showed a mildly elevated white count of 12.1, anemia with a hemoglobin of 8.9 and normal platelet count. His chemistry panel was unremarkable other than an elevated BUN to serum creatinine ratio at 48 and 0.76. Blood glucose was 180 at the time of presentation. UA was unremarkable except for ketones. A CT of the abdomen pelvis was performed and showed punctate gas with in the proximal duodenum and mild duodenal thickening which was felt consistent with duodenitis or nonperforated duodenal ulcer. He was admitted to the hospital and placed on a Protonix drip, given clear liquid diets, serial H&H's were performed and his aspirin was held. Gastroenterology was consulted for possible EGD. He was taken for EGD on the same day of presentation and he was found to have a normal esophagus with 5 spurting cratered duodenal ulcers and visible vessels in the duodenal bulb and the first portion of the duodenum. The largest lesions was 30 mm in dimension. The area was injected with 7 mL of epinephrine and coagulation for hemostasis was performed using argon plasma. He also had 2 nonbleeding cratered duodenal ulcers with no stigmata of bleeding in the second portion of duodenum that were treated with argon plasma as well. Patient had good hemostasis on endoscopy review at the end of the procedure. He was then admitted to the ICU where he was monitored close procedure. He did complain of an ongoing feeling of weakness throughout his hospital stay. Unfortunately, his hemoglobin dropped from 08/06/2024 through 08/08/2019 25-6.4 and he was transfused a total of 5 units packed red blood during his hospitalization. Given the acute drop in his hemoglobin GI was consulted and he was taken back to the endoscopy suite for repeat EGD. EGD on 08/07/2024 showed many oozing cratered duodenal ulcers with visible vessel in the duodenal bulb and the first portion of duodenum that were injected with 10 mL of epinephrine, coagulation for hemostasis using argon plasma and 5 clips were placed for hemostasis. A stent was also placed in the gastric pylorus as the patient appeared to have gastric outlet obstruction. Hemoglobin clinically stabilized in the 10-10.5 range and remained stable throughout the rest of his hospitalization. He was started on a clear liquid diet and maintained on a Protonix drip as well as Carafate on 08/08/2024. I was called in the morning of 08/09/2024 due to mild temperature elevation at 99.9, thefeeling of general malaise, mild hypoxia with a oxygen saturation of 89% and a bit of upper abdominal and chest pain. With his history of VTE, I felt it prudent to obtain a CTA of the chest which we performed. CT was called to me byradiology and noted bilateral PEs as well as free air in the left upper quadrantnear the spleen. He also had a small to moderate left pleural effusion present. Given the suspected free air a dedicated CT of the abdomen pelvis was performedand again reflected free air. Given the above, vascular surgery was consulted for IVC filter placement which was performed on 08/09/[address] Francisco. At the removal of the filter and may be discontinued once the patient can be anticoagulated again in the future. 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 With the free air identified under the diaphragm General Surgery was consulted. Dr. Bhakta reviewed the images and indicatedthat we would not be able to perform the surgery required at this institution and recommended transfer. The patient was notified and the above was discussed with him. Family preferred transfer that [place] for proximity purposes and call was made to [facility]. Dr. Zara Spann accepted the patient for transfer after discussing the case with Dr. Bhakta and reviewing the images. He requested transfer to the emergency department as he was concerned he would have to take the patient directly to the OR. The patient was transferred in guarded but stable condition to [facility] on 08/09/2024. Antibiotics including ciprofloxacin and Flagyl were continued as they were started after his second scope he was maintained on a Protonix drip and IVC filter was placed prior to discharge. Patient will need follow-up with Dr. Francisco in the future. Discharge diagnoses: Perforated viscus Acute bilateral PE without cor pulmonale Upper GI bleed Multiple bleeding duodenal ulcers Acute anemia secondary to GI bleed Leukocytosis Hypokalemia Hypophosphatemia Acute hypotension History of DVT History of mitral valve prolapse Physical Exam Const alert, oriented x3, no apparent distress, average body habitus and no limitations Constitutional Narrative: Older, Christianity male, lying in bed, family at bedside, appears mildly uncomfortable, does not appear toxic General Appearance: cooperative, comfortable, well kempt and well developed Exam Limitations: no limitations Nutritional Appearance: thin HEENT normocephalic, head/scalp atraumatic, hearing grossly normal bilaterally, moist oral mucous membranes, oropharynx normal and gingiva normal HEENT Narrative: Mallampati is 2, no thrush Eyes PERRL, EOMs intact bilaterally and conjunctivae normal Eyes Narrative: No scleral icterus Neck supple Neck Narrative: Trachea midline Resp normal respiratory effort, normal air movement, no retractions, no use of accessory muscles and clear to auscultation bilaterally Auscultation: Negative for rales, rhonchi or wheezes Cardio regular rate, regular rhythm, S1 normal heart sound, S2 normal heart sound, no murmurs, no rub, no gallops and no clicks GI soft to palpation GI Narrative: Mild to moderate tenderness in left upper quadrant, bowel sounds are mildly hypoactive, no significant distention, abdomen is not rigid Extremity no clubbing, cyanosis or edema Extremity Narrative: Pedal and radial pulses are 2+ Skin skin turgor normal and no jaundice Skin Narrative: Skin is pale Neuro oriented x3, moves all extremities and no focal motor deficits Speech: speech normal Psych thought process normal, cooperative and affect normal Psych Narrative: Very pleasant, interacts appropriately, eye contact is good Weight / BMI Weight Weight: 82.2 kg Body Mass Index (BMI) 25.9 ABG / Lab / Microbiology Data 08/09/24 06:13 08/09/24 06:13 Laboratory: Laboratory Results - last 24 hr 08/09/24 06:13: WBC 12.1 H, RBC 3.43 L, Hgb 10.2 L, Hct 29.8 L, MCV 86.9, MCH 29.7, MCHC 34.2, RDW Std Deviation 46.7 H, RDW Coeff of Edna 14.7 H, Plt Count 223, MPV 9.5, Immature Gran % (Auto) 1.000 H, Neut % (Auto) 87.4 H, Lymph % (Auto) 5.5 L, [place] % (Auto) 5.4, Eos % (Auto) 0.5, Baso % (Auto) 0.2, Absolute Neuts (auto) 10.6 H, Absolute Lymphs (auto) 0.67 L, Nucleated RBC % 0, Sodium 139, Potassium 3.2 L, Chloride 106, Carbon Dioxide 24.4, Anion Gap 9, BUN 16, Creatinine 0.51 L, Estim Creat Clear Calc 88.72, Est GFR (MDRD) Non-Af 109, BUN/Creatinine Ratio 31.8 H, Glucose 116 H, Calcium 7.7, Phosphorus 1.3 L*, Magnesium 1.9, Procalcitonin 0.70 H Microbiology: Microbiology 08/09/24 09:20 Mucosa - Nasopharyngeal Respiratory Panel (PCR) - Final 08/09/24 08:10 Mucosa - Nose SARS-CoV-2, Influenza & RSV (PCR) - Final Radiography Diagnostic Testing: Radiology Impression Chest CTA 08/09/24 08:02 IMPRESSION: The study is positive for bilateral pulmonary embolism at the upper hilar level.Partially occlusive pulmonary embolism at the right upper lobe interlobar division for example axial 119 through 148 and branching of the interlobar arteries left upper lobe distally appearing occlusive for example axial 139 at the segment divisions and axial 109. No CT evidence of right heart strain. Moderate left and small right posterior layering pleural effusions with associated adjacent partial passive collapse, atelectasis. Limited images of the upper abdomen with findings concerning for areas of free air and free fluid left upper quadrant about the spleen, clinically correlate. Red Alert: Pulmonary embolism as described and findings concerning for possible free air and free fluid partially imaged visualized left upper quadrant The critical information above was relayed directly by me by telephone to Brandie Spears on 08/09/2024 at 9:18 am with readback verification. Reading Location: [facility] Abdomen/Pelvis CT 08/09/24 09:40 IMPRESSION: 1. Redemonstrated small to moderate volume ill-defined free fluid and air in theperisplenic/subdiaphragmatic region, suggesting perforated viscus, presumably related to previously suspected duodenal ulcer although this is not definite and proximity of these findings to the stomach is noted. A tiny focus of high density along the medialspleen is new from prior and is suspicious for minimal extravasated PO contrast given a small amount of high-density presumed PO contrast within the stomach. 2. Findings suggestive of cystitis and/or chronic bladder outlet obstruction given prostatomegaly. Correlate with urinalysis. 3. Refer to recent CTA chest report for intrathoracic findings. 4. Additional description as above. Reading Location: [facility] D/C Instructions DC O2, CPAP, BIPAP Needs Home O2 Discharge instructions: No Meaningful Use Info Meaningful Use Meaningful Use Diagnoses (Choose all that apply): None applicable Ischemic Stroke Statin Dosing Therapy Reference: STATIN DOSE THERAPY REFERENCE: * Patients > 75 years receive moderate or high dose statin therapy. * Patients 75 years or YOUNGER should receive HIGH intensity statin dose unless contraindicated. You will be required to document reason for non-treatment if statin daily dose does not meet guidelines. HIGH DOSE STATIN THERAPY DAILY Atorvastatin > than or = to 40 mg Rosuvastatin > than or = to 20 mg Amlodipine + Atorvastatin > than or = to 2.5/40 mg Ezetimibe + Simvastatin 10/80 mg Simvastatin 80mg Discharge Plan Admission Admit Date/Time: 08/05/24 15:43 Primary Reason for Your Visit: Radha Attending Provider: Brandie Spears Primary Care Provider: Dante Gurrola Consulting Providers: Derrick Yadav; Melonie Odell; Hector Bhakta; Lebron Francisco Discharge Orders/Prescriptions Prescriptions: No Action aspirin 81 MG tablet,chewable 81 mg PO DAILY multivitamin 1 EACH tablet 1 tab PO DAILY omega-3 fatty acids 1,000 MG capsule 2,000 mg PO BID turmeric-turmeric root extract 1 EACH capsule 1 cap PO DAILY polyethylene glycol 3350 [ClearLax] 17 gram/dose powder 17 g PO DAILY PRN (Reason: laxative effect) psyllium husk [Daily Fiber] 0.4 gram capsule 0.8 g PO BID Referrals / Follow Up: Dante Gurrola DO [Primary Care Provider] - Disposition Disposition (needs filled in before D/C Order can be placed): Acute Care Hospital Charges/Coding Visit Charges Inpatient E&M: 61608 Disch Hosp >30min 08/09/24 1405 <Electronically signed by Brandie Spears DO> Cosigner Signature (if applicable): CC: Dr. Dante Gurrola MD; Dr. Lebron Francisco MD; Dr. Brandie Spears DO; Betito Avendano DO~ Signed [facility] Work Phone: [phone] 585-772305-07-2025 Discharge summary [facility] Medical Records Department [address] [place] [address] Discharge Summary 08/09/24 1345 MR#: [id number] Acct: [id number] Name: LAINE GARCIA Rep #:[id number] : 1955 69 From: Brandie Spears DO PCP: Dr. Dante Gurrola MD Status:ADM I N Location: [place] [address] Providers Date of Admission: 08/05/24 Date of Discharge: 08/09/24 Primary Care Physician: Dr. Dante Gurrola DO Consultations 08/05/24 16:19 Consult: Gastroenterology Routine Consulting Provider: [facility] Reason for Consult: GI bleed EMERGENT Consult: No Notified: Yes Date Notified: 08/05/24 Time Notified: 15:00 Method of Notification: Verbal 08/09/24 09:20 Consult: General Surgery Routine Consulting Provider: Hector Bhakta Reason for Consult: Free intrabadomial air post EGD with multiple duodonal ulcers EMERGENT Consult: No Notified: Yes Date Notified: 08/09/24 Time Notified: 09:20 Method of Notification: Verbal Consult: Vascular Surgery Routine Consulting Provider: Lebron Francisco Reason for Consult: B PE with recent GIB EMERGENT Consult: No MD Notified: Yes Date Notified: 08/09/24 Time Notified: 09:21 Method of Notification: Verbal Reason For Visit: GI BLEED Diagnosis Discharge Diagnosis (1) Pulmonary embolism: Status: Acute Code(s): I26.99 - Other pulmonary embolism without acute cor pulmonale Qualifiers: Pulmonary embolism type: multiple subsegmental (without acute cor pulmonale) Qualified Code(s): I26.94 - Multiple subsegmental thrombotic pulmonary emboli without acute cor pulmonale Medications at Discharge Home Medications aspirin 81 mg chewable tablet 81 mg PO DAILY heart health 01/22/20 multivitamin 1 tab PO DAILY supplement 01/22/20 omega-3 fatty acids 1,000 mg capsule 2,000 mg PO BID supplement 01/22/20 turmeric 450 mg-turmeric root extract 50 mg capsule 1 cap PO DAILY supplement 01/22/20 polyethylene glycol 3350 17 gram/dose oral powder (ClearLax) 17 g PO DAILY PRN laxative effect 08/05/24 psyllium husk 0.4 gram capsule (Daily Fiber) 0.8 g PO BID 08/05/24 Hospital Course Procedures Blood transfusion, EGD (X 2 08/05/2024, 08/07/2024), EKG, IVC filter placement (08/09/2024) and - (KUB x 2/CT abdomen pelvis x 3/CTA chest) Summary of Care Provided Minutes Spent on Discharge: 43 Hospital Course: Mr. Garcia is a 69-year-old Christianity white male who presented to the emergency department at [facility] on 08/06/2019 2:25 syncopal episodes thathe experienced at home and 1 episode of maroon-colored stools. Patient had beenhaving abdominal discomfort with increasing epigastric pain for several months prior to presentation. He felt it was due to constipation. He had been taking aspirinfor previous "blood clots.". He states he had blood clots in 2016 aftersurgery for a hiatal hernia and then after he was told to take aspirin on a regular basis. Vital signs on presentation showed a temperature of 98.8, heart rate 74, respiratory was 13, blood pressure was 121/70 and pulse ox was 99% on room air. CBC showed a mildly elevated white count of 12.1, anemia with a hemoglobin of 8.9 and normal platelet count. His chemistry panel was unremarkable other than an elevated BUN to serum creatinine ratio at 48 and 0.76. Blood glucose was 180 at the time of presentation. UA was unremarkable except for ketones. A CT of the abdomen pelvis was performed and showed punctate gas with in the proximal duodenum and mild duodenal thickening which was felt consistent with duodenitis or nonperforated duodenal ulcer. He was admitted to the hospital and placed on a Protonix drip, given clear liquid diets, serial H&H's were performed and his aspirin was held. Gastroenterology was consulted fo r possible EGD. He was taken for EGD on the same day of presentation and he was found to have a normal esophagus with 5 spurting cratered duodenal ulcers and visible vessels in the duodenal bulb and the first portion of the duodenum. The largest lesions was 30 mm in dimension. The area was injectedwith 7 mL of epinephrine and coagulation for hemostasis was performed using argon plasma. He also had 2 nonbleeding cratered duodenal ulcers with no stigmata of bleeding in the second portion of duodenum that were treated with argon plasma as well. Patient had good hemostasis on endoscopy review atthe end of the procedure. He was then admitted to the ICU where he was monitored close procedure. He did complain of an ongoing feeling of weakness throughout his hospital stay. Unfortunately, his hemoglobin dropped from 08/06/2024 through 08/08/2019 25-6.4 and he was transfused a total of 5 units packed red blood during his hospitalization. Given the acute drop in his hemoglobin GI was consulted andhe was taken back to the endoscopy suite for repeat EGD. EGD on 08/07/2024 showed many oozing cratered duodenal ulcers with visible vessel in the duodenal bulb and the first portion of duodenum that were injected with 10 mL of epinephrine, coagulation for hemostasis using argon plasma and 5 clips were placed for hemostasis. A stent was also placed in the gastric pylorus as the patient appeared to have gastric outlet obstruction. Hemoglobin clinically stabilized in the 10-10.5 range and remained stable throughout the rest of his hospitalization. He was started on a clear liquid diet and maintained on a Protonix drip as well as Carafate on 08/08/2024. I was called in the morning of 08/09/2024 due to mild temperature elevation at 99.9, thefeeling of general malaise, mild hypoxia with a oxygen saturation of 89% and a bit of upper abdominal and chest pain. With his history of VTE, I felt it prudent to obtain a CTA of the chest which we performed. CT was called to me byradiology and noted bilateral PEs as well as free air in the left upper quadrantnear the spleen. He also had a small to moderate left pleural effusion present. Given the suspected free air a dedicated CT of the abdomen pelvis was performedand again reflected free air. Given the above, vascular surgery was consulted for IVC filter placement which was performed on 08/09/[address] Francisco. At the removal of the filter and may be discontinued once the patient can be anticoagulated again in the future. 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 With the free air identified under the diaphragm General Surgery was consulted. Dr. Bhakta reviewed the images and indicatedthat we would not be able to perform the surgery required at this institution and recommended transfer. The patient was notified and the above was discussed with him. Family preferred transfer that [place] for proximity purposes [facility] Dr[facility] Zara Spann accepted the patient for transfer after discussing the case with Dr. Bhakta and reviewing the images. He requested transfer to the emergency departmentas he was concerned he would have to take the patient directly to the OR. The patient was transferred in guarded but stable condition to [facility] on 08/09/2024. Antibiotics including ciprofloxacin and Flagyl were continued as they were started after his second scope he was maintained on a Protonix drip and IVC filter was placed prior to discharge. Patient will need follow-up with Dr. Francisco in the future. Discharge diagnoses: Perforated viscus Acute bilateral PE without cor pulmonale Upper GI bleed Multiple bleeding duodenal ulcers Acute anemia secondary to GI bleed Leukocytosis Hypokalemia Hypophosphatemia Acute hypotension History of DVT History of mitral valve prolapse Physical Exam Const alert, oriented x3, no apparent distress, average body habitus and no limitations Constitutional Narrative: Older, Christianity male, lying in bed, family at bedside, appears mildly uncomfortable, does not appear toxic General Appearance: cooperative, comfortable, well kempt and well developed Exam Limitations: no limitations Nutritional Appearance: thin HEENT normocephalic, head/scalp atraumatic, hearing grossly normal bilaterally, moist oral mucous membranes, oropharynx normal and gingiva normal HEENT Narrative: Mallampati is 2, no thrush Eyes PERRL, EOMs intact bilaterally and conjunctivae normal Eyes Narrative: No scleral icterus Neck supple Neck Narrative: Trachea midline Resp normal respiratory effort, normal air movement, no retractions, no use of accessory muscles and clear to auscultation bilaterally Auscultation: Negative for rales, rhonchi or wheezes Cardio regular rate, regular rhythm, S1 normal heart sound, S2 normal heart sound, no murmurs, no rub, no gallops and no clicks GI soft to palpation GI Narrative: Mild to moderate tenderness in left upper quadrant, bowel sounds are mildly hypoactive, no significant distention, abdomen is not rigid Extremity no clubbing, cyanosis or edema Extremity Narrative: Pedal and radial pulses are 2+ Skin skin turgor normal and no jaundice Skin Narrative: Skin is pale Neuro oriented x3, moves all extremities and no focal motor deficits Speech: speech normal Psych thought process normal, cooperative and affect normal Psych Narrative: Very pleasant, interacts appropriately, eye contact is good Weight / BMI Weight Weight: 82.2 kg Body Mass Index (BMI) 25.9 ABG / Lab / Microbiology Data 08/09/24 06:13 08/09/24 06:13 Laboratory: Laboratory Results - last 24 hr 08/09/24 06:13: WBC 12.1 H, RBC 3.43 L, Hgb 10.2 L, Hct 29.8 L, MCV 86.9, MCH 29.7, MCHC 34.2, RDW Std Deviation 46.7 H, RDW Coeff of Edna 14.7 H, Plt Count 223, MPV 9.5, Immature Gran % (Auto) 1.000 H, Neut % (Auto) 87.4 H, Lymph % (Auto) 5.5 L, [place] % (Auto) 5.4, Eos % (Auto) 0.5, Baso % (Auto) 0.2, Absolute Neuts (auto) 10.6 H, Absolute Lymphs (auto) 0.67 L, Nucleated RBC % 0, Sodium 139, Potassium 3.2 L, Chloride 106, Carbon Dioxide 24.4, Anion Gap 9, BUN 16, Creatinine 0.51 L, Estim Creat Clear Calc 88.72, Est GFR (MDRD) Non-Af 109, BUN/Creatinine Ratio 31.8 H, Glucose 116 H, Calcium 7.7,Phosphorus 1.3 L*, Magnesium 1.9, Procalcitonin 0.70 H Microbiology: Microbiology 08/09/24 09:20 Mucosa - Nasopharyngeal Respiratory Panel (PCR) - Final 08/09/24 08:10 Mucosa - Nose SARS-CoV-2, Influenza & RSV (PCR) - Final Radiography Diagnostic Testing: Radiology Impression Chest CTA 08/09/24 08:02 IMPRESSION: The study is positive for bilateral pulmonary embolism at the upper hilar level.Partially occlusivepulmonary embolism at the right upper lobe interlobar division for example axial 119 through 148 and branching of the interlobar arteries left upper lobe distally appearing occlusive for example axial 139 at the segment divisions and axial 109. No CT evidence of right heart strain. Moderate left and small right posterior layering pleural effusions with associated adjacent partialpassive collapse, atelectasis. Limited images of the upper abdomen with findings concerning for areas of free air and free fluid left upper quadrant about the spleen, clinically correlate. Red Alert: Pulmonary embolism as described and findings concerning for possible free air and free fluid partially imaged visualized left upper quadrant The critical information above was relayed directly by me by telephone to Brandie Spears on 08/09/2024 at 9:18 am with readback verification. Reading Location: [id number] Abdomen/Pelvis CT 08/09/24 09:40 IMPRESSION: 1. Redemonstrated small to moderate volume ill-defined free fluid and air in theperisplenic/subdiaphragmatic region, suggesting perforated viscus, presumably related to previously suspected duodenal ulcer although this is not definite and proximity of these findings to the stomach is noted. A tiny focus of high density along the medialspleen is new from prior and is suspicious for minimal extravasated PO contrast given a small amount of high-density presumed PO contrast within the stomach. 2. Findings suggestive of cystitis and/or chronic bladder outlet obstruction given prostatomegaly. Correlate with urinalysis. 3. Refer to recent CTA chest report for intrathoracic findings. 4. Additional description as above. Reading Location: [id number] D/C Instructions DC O2, CPAP, BIPAP Needs Home O2 Discharge instructions: No Meaningful Use Info Meaningful Use Meaningful Use Diagnoses (Choose all that apply): None applicable Ischemic Stroke Statin Dosing Therapy Reference: STATIN DOSE THERAPY REFERENCE: * Patients > 75 years receive moderate or high dose statin therapy. * Patients 75 years or YOUNGER should receive HIGH intensity statin dose unless contraindicated. You will be required to document reason for non-treatment if statin daily dose does not meet guidelines. HIGH DOSE STATIN THERAPY DAILY Atorvastatin > than or = to 40 mg Rosuvastatin > than or = to 20 mg Amlodipine + Atorvastatin > than or = to 2.5/40 mg Ezetimibe + Simvastatin 10/80 mg Simvastatin 80mg Discharge Plan Admission Admit Date/Time: 08/05/24 15:43 Primary Reason for Your Visit: Radha Attending Provider: Brandie Spears Primary Care Provider: Dante Gurrola Consulting Providers: Derrick Yadav; Melonie Odell; Hector Bhakta; Lebron Francisco Discharge Orders/Prescriptions Prescriptions: No Action aspirin 81 MG tablet,chewable 81 mg PO DAILY multivitamin 1 EACH tablet 1 tab PO DAILY omega-3 fatty acids 1,000 MG capsule 2,000 mg PO BID turmeric-turmeric root extract 1 EACH capsule 1 cap PO DAILY polyethylene glycol 3350 [ClearLax] 17 gram/dose powder 17 g PO DAILY PRN (Reason: laxative effect) psyllium husk [Daily Fiber] 0.4 gram capsule 0.8 g PO BID Referrals / Follow Up: Dante Gurrola DO [Primary Care Provider] - Disposition Disposition (needs filled in before D/C Order can be placed): Acute Care Hospital Charges/Coding Visit Charges Inpatient E&M: 49892 Disch Hosp >30min 08/09/24 1405 Cosigner Signature (if applicable): CC: Dr. Dante Gurrola MD; Dr. Lebron Francisco MD; Dr. Brandie Spears DO; Betito Avendano DO~ Signed [facility]05-07-2025 [facility] Medical Records Department [address] [place] [address] Discharge Summary 08/09/24 1345 MR#: [id number] Acct: [id number] Name: LAINE GARCIA Rep #: [id number] : 1955 69 From: Brandie Spears DO PCP: Dr. Dante Gurrola MD Status:ADM IN Location: [place] [address] Providers Date of Admission: 08/05/24 Date of Discharge: 08/09/24 Primary Care Physician: Dr. Dante Gurrola DO Consultations 08/05/24 16:19 Consult: Gastroenterology Routine Consulting Provider: [facility] Reason for Consult: GI bleed EMERGENT Consult: No Notified: Yes Date Notified: 08/05/24 Time Notified: 15:00 Method of Notification: Verbal 08/09/24 09:20 Consult: General Surgery Routine Consulting Provider: Hector Bhakta Reason for Consult: Free intrabadomial air post EGD with multiple duodonal ulcers EMERGENT Consult: No Notified: Yes Date Notified: 08/09/24 Time Notified: 09:20 Method of Notification: Verbal Consult: Vascular Surgery Routine Consulting Provider: Lebron Francisco Reason for Consult: B PE with recent GIB EMERGENT Consult: No Notified: Yes Date Notified: 08/09/24 Time Notified: 09:21 Method of Notification: Verbal Reason For Visit: GI BLEED Diagnosis Discharge Diagnosis (1) Pulmonary embolism: Status: Acute Code(s): I26.99 - Other pulmonary embolism without acute cor pulmonale Qualifiers: Pulmonary embolism type: multiple subsegmental (without acute cor pulmonale) Qualified Code(s): I26.94 - Multiple subsegmental thrombotic pulmonary emboli without acute cor pulmonale Medications at Discharge Home Medications aspirin 81 mg chewable tablet 81 mg PO DAILY heart health 01/22/20 multivitamin 1 tab PO DAILY supplement 01/22/20 omega-3 fatty acids 1,000 mg capsule 2,000 mg PO BID supplement 01/22/20 turmeric 450 mg-turmeric root extract 50 mg capsule 1 cap PO DAILY supplement 01/22/20 polyethylene glycol 3350 17 gram/dose oral powder (ClearLax) 17 g PO DAILY PRN laxative effect 08/05/24 psyllium husk 0.4 gram capsule (Daily Fiber) 0.8 g PO BID 08/05/24 Hospital Course Procedures Blood transfusion, EGD (X 2 08/05/2024, 08/07/2024), EKG, IVC filter placement (08/09/2024) and - (KUB x 2/CT abdomen pelvis x 3/CTA chest) Summary of Care Provided Minutes Spent on Discharge: 43 Hospital Course: Mr. Garcia is a 69-year-old Christianity white male who presented to the emergency department at [facility] on 08/06/2019 2:25 syncopal episodes that he experienced at home and 1 episode of maroon-colored stools. Patient had been having abdominal discomfort with increasing epigastric pain for several months prior to presentation. He felt it was due to constipation. He had been taking aspirin for previous "blood clots.". He states he had blood clots in 2016 after surgery for a hiatal hernia and then after he was told to take aspirin on a regular basis. Vital signs on presentation showed a temperature of 98.8, heart rate 74, respiratory was 13, blood pressure was 121/70 and pulse ox was 99% on room air. CBC showed a mildly elevated white count of 12.1, anemia with a hemoglobin of 8.9 and normal platelet count. His chemistry panel was unremarkable other than an elevated BUN to serum creatinine ratio at 48 and 0.76. Blood glucose was 180 at the time of presentation. UA was unremarkable except for ketones. A CT of the abdomen pelvis was performed and showed punctate gas with in the proximal duodenum and mild duodenal thickening which was felt consistent with duodenitis or nonperforated duodenal ulcer. He was admitted to the hospital and placed on a Protonix drip, given clear liquid diets, serial H H's were performed and his aspirin was held. Gastroenterology was consulted for possible EGD. He was taken for EGD on the same day of presentation and he was found to have a normal esophagus with 5 spurting cratered duodenal ulcers and visible vessels in the duodenal bulb and the first portion of the duodenum. The largest lesions was 30 mm in dimension. The area was injected with 7 mL of epinephrine and coagulation for hemostasis was performed using argon plasma. He also had 2 nonbleeding cratered duodenal ulcers with no stigmata of bleeding in the second portion of duodenum that were treated with argon plasma as well. Patient had good hemostasis on endoscopy review at the end of the procedure. He was then admitted to the ICU where he was monitored close procedure. He did complain of an ongoing feeling of weakness throughout his hospital stay. Unfortunately, his hemoglobin dropped from 08/06/2024 through 08/08/2019 25-6.4 and he was transfused a total of 5 units packed red blood during his hospitalization. Given the acute drop in his hemoglobin GI was consulted and he was taken back to the endoscopy suite for repeat EGD. EGD on 08/07/2024 showed many oozing cratered duodenal (more content not included)...[facility]05-07-2025 Consult note Author Lebron Francisco [facility] Note Date/Time August 09, 2024 11:36a m [facility] Medical Records Department [address] [place] [address] Consultation - Surgical 08/09/24 1129 MR#: [id number] Acct: [id number] Name: LAINE GARCIA Rep #:[id number] : 1955 69 From: Lebron Francisco MD PCP: Dr. Dante Gurrola MD Status:ADM I N Location: [place] [address] Assessment & Plan Assessment/Plan (1) Pulmonary embolism: QUALIFIERS: Pulmonary embolism type: multiple subsegmental (without acute cor pulmonale) Qualified Code(s): I26.94 - Multiple subsegmentalthrombotic pulmonary emboli without acute cor pulmonale PLAN: -VC filter HPI Consult Data Date of Consult: 08/09/24 HPI Narrative HPI Narrative: LAINE GARCIA, is a 69 M who presents with dark stools and syncope. Found to haveduodenal bleeding ulcers which were treated 08/07. Today he had episode of hypoxiaand fever and CTA chest revealed small bilateral PE. The abdominal portion of the scan also revealed free air/fluid that was confirmed on dedicated abdominal CT. He has history of prior provoked DVT in 2016 which was treated with course of oral anticoagulation. [facility] History History of DVT (deep vein thrombosis) Mitral valve prolapse Home Medications ?Medication ?Instructions ?Recorded ?Last Taken ?Type aspirin 81 mg chewable tablet 81 mg PO DAILY heart hea lth 01/22/20 08/05/24 History multivitamin 1 tab PO DAILY supplement 08/05/24 History omega-3 fatty acids 1,000 mg 2,000 mg PO BID supplemen t 01/22/20 08/05/24 History capsule turmeric 450 mg-turmeric root 1 cap PO DAILY supplemen t 01/22/20 08/05/24 History extract 50 mg capsule polyethylene glycol 3350 17 17 g PO DAILY PRN laxative effect 08/05/24 08/02/24 History gram/dose oral powder (ClearLax) psyllium husk 0.4 gram capsule 0.8 g PO BID 08/05/24 0 08/05/24 History (Daily Fiber) Allergy/AdvReac Type Severity Reaction Status Date / Time Penicillins AdvReac PT UNABLE Verified 08/05/24 13:12 TO RESPOND-NEEDS F/U Family History Father Myocardial infarction Mother CVA (cerebral vascular accident) Surgical History H/O shoulder surgery History of repair of hiatal hernia Social History Smoking Status: Never smoker alcohol intake: never ROS Constitutional Constitutional: Reports fever(s), lethargy and weakness; Denies frequent falls Eyes Eyes: Denies blind spots, change in vision or loss of vision ENT HEENT: Denies bleeding gums, hoarseness or sore throat Cardiovascular Cardiovascular: Reports abdominal pain; Denies bluish discoloration of hand/feet, chest pain with activity, claudication, cold extremities, cyanosis, dyspnea on exertion, erythema on extremities, irregular heart rhythm, leg edema,leg ulcers, numbness in extremities or weakness in extremities Respiratory/Chest Respiratory/Chest: Denies cough, excessive phlegm production, shortness of breath at rest, shortness of breath with exertion or wheezing Gastrointestinal Gastrointestinal: Reports change in stool character and melena; Denies anorexia,constipation, diarrhea or rectal bleeding Genitourinary Genitourinary: Denies dysuria or hematuria Musculoskeletal Musculoskeletal: Denies abnormal gait Integumentary Integumentary: Denies erythema, non-healing lesions or wounds Neurologic Neurologic: Denies abnormal speech, focal weakness, headache(s), loss of vision,numbness, paresthesias or sensory deficit Hematologic/Lymphatic Hematologic/Lymphatic: Denies easy bleeding, easy bruising or lymphadenopathy Physical Exam Const alert, oriented x3, no apparent distress and healthy appearing General Appearance: cooperative and ill appearing; Negative for combative or lethargic Orientation / Consciousness: awake Exam Limitations: no limitations HEENT Head and Scalp: normocephalic and atraumatic Mouth: oral and palatal mucosa normal, lips normal and tongue normal Eyes EOMs intact bilaterally General Eye: normal appearance of both eyes Neck full ROM General: trachea midline Resp normal respiratory effort and no use of accessory muscles Effort and Inspection: Negative for labored, stridor or audible wheezes Cardio regular rate and regular rhythm Back/Spine Cervical Spine: cervical ROM normal Extremity full ROM, normal capillary refill and no clubbing, cyanosis or edema Skin no rashes or lesions noted and no wounds Neuro oriented x3, CN's II-XII intact bilaterally, no focal motor deficits and no sensory deficits noted Psych thought process normal, cooperative, affect normal, speech normal and activity/motor behavior normal Lab / Micro Data 08/09/24 06:13 08/09/24 06:13 Labs: Laboratory Results - last 24 hr 08/09/24 06:13: WBC 12.1 H, RBC 3.43 L, Hgb 10.2 L, Hct 29.8 L, MCV 86.9, MCH 29.7, MCHC 34.2, RDW Std Deviation 46.7 H, RDW Coeff of Edna 14.7 H, Plt Count 223, MPV 9.5, Immature Gran % (Auto) 1.000 H, Neut % (Auto) 87.4 H, Lymph % (Auto) 5.5 L, [place] % (Auto) 5.4, Eos % (Auto) 0.5, Baso % (Auto) 0.2, Absolute Neuts (auto) 10.6 H, Absolute Lymphs (auto) 0.67 L, Nucleated RBC % 0, Sodium 139, Potassium 3.2 L, Chloride 106, Carbon Dioxide 24.4, Anion Gap 9, BUN 16, Creatinine 0.51 L, Estim Creat Clear Calc 88.72, Est GFR (MDRD) Non-Af 109, BUN/Creatinine Ratio 31.8 H, Glucose 116 H, Calcium 7.7, Phosphorus 1.3 L*, Magnesium 1.9, Procalcitonin 0.70 H Micro: Microbiology 08/09/24 08:10 Mucosa - Nose SARS-CoV-2, Influenza & RSV (PCR) - Final Imaging Radiology Impression Chest CTA 08/09/24 08:02 IMPRESSION: The study is positive for bilateral pulmonary embolism at the upper hilar level.Partially occlusive pulmonary embolism at the right upper lobe interlobar division for example axial 119 through 148 and branching of the interlobar arteries left upper lobe distally appearing occlusive for example axial 139 at the segment divisions and axial 109. No CT evidence of right heart strain. Moderate left and small right posterior layering pleural effusions with associated adjacent partial passive collapse, atelectasis. Limited images of the upper abdomen with findings concerning for areas of free air and free fluid left upper quadrant about the spleen, clinically correlate. Red Alert: Pulmonary embolism as described and findings concerning for possible free air and free fluid partially imaged visualized left upper quadrant The critical information above was relayed directly by me by telephone to Brandie Spears on 08/09/2024 at 9:18 am with readback verification. Reading Location: [facility] Abdomen/Pelvis CT 08/09/24 09:40 IMPRESSION: 1. Redemonstrated small to moderate volume ill-defined free fluid and air in theperisplenic/subdiaphragmatic region, suggesting perforated viscus, presumably related to previously suspected duodenal ulcer although this is not definite and proximity of these findings to the stomach is noted. A tiny focus of high density along the medialspleen is new from prior and is suspicious for minimal extravasated PO contrast given a small amount of high-density presumed PO contrast within the stomach. 2. Findings suggestive of cystitis and/or chronic bladder outlet obstruction given prostatomegaly. Correlate with urinalysis. 3. Refer to recent CTA chest report for intrathoracic findings. 4. Additional description as above. Reading Location: [facility] 08/09/24 1136 <Electronically signed by Lebron Francisco MD> Cosigner Signature (if applicable): CC: Dr. Dante Gurrola MD~ Signed [facility] Work Phone: [phone]) 821-341605-07-2025 Consult note [facility] Medical Records Department [address] [place] [address] Consultation - Surgical 08/09/24 1129 MR#: [id number] Acct: [id number] Name: LAINE GARCIA Rep #:[id number] : 1955 69 From: Lebron Francisco MD PCP: Dr. Dante Gurrola MD Status:ADM I N Location: [id number] Assessment & Plan Assessment/Plan (1) Pulmonary embolism: QUALIFIERS: Pulmonary embolism type: multiple subsegmental (without acute cor pulmonale) Qualified Code(s): I26.94 - Multiple subsegmentalthrombotic pulmonary emboli without acute cor pulmonale PLAN: -VC filter HPI Consult Data Date of Consult: 08/09/24 HPI Narrative HPI Narrative: LAINE GARCIA, is a 69 M who presents with dark stools and syncope. Found to haveduodenal bleeding ulcers which were treated 08/07. Today he had episode of hypoxiaand fever and CTA chest revealed small bilateral PE. The abdominal portion of the scan also revealed free air/fluid that was confirmed on dedicated abdominal CT. He has history of prior provoked DVT in 2016 which was treated with course of oral anticoagulation. [facility] Medical History History of DVT (deep vein thrombosis) Mitral valve prolapse Home Medications ?Medication ?Instructions ?Recorded ?Last Taken ?Type aspirin 81 mg chewable tablet 81 mg PO DAILY heart hea lth 01/22/20 08/05/24 History multivitamin 1 tab PO DAILY supplement 08/05/24 History omega-3 fatty acids 1,000 mg 2,000 mg PO BID supplemen t 01/22/20 08/05/24 History capsule turmeric 450 mg-turmeric root 1 cap PO DAILY supplemen t 01/22/20 08/05/24 History extract 50 mg capsule polyethylene glycol 3350 17 17 g PO DAILY PRN laxative effect 08/05/24 08/02/24 History gram/dose oral powder (ClearLax) psyllium husk 0.4 gram capsule 0.8 g PO BID 08/05/24 0 08/05/24 History (Daily Fiber) Allergy/AdvReac Type Severity Reaction Status Date / Time Penicillins AdvReac PT UNABLE Verified 08/05/24 13:12 TO RESPOND-NEEDS F/U Family History Father Myocardial infarction Mother CVA (cerebral vascular accident) Surgical History H/O shoulder surgery History of repair of hiatal hernia Social History Smoking Status: Never smoker alcohol intake: never ROS Constitutional Constitutional: Reports fever(s), lethargy and weakness; Denies frequent falls Eyes Eyes: Denies blind spots, change in vision or loss of vision ENT HEENT: Denies bleeding gums, hoarseness or sore throat Cardiovascular Cardiovascular: Reports abdominal pain; Denies bluish discoloration of hand/feet, chest pain with activity, claudication, cold extremities, cyanosis, dyspnea on exertion, erythema on extremities, irregular heart rhythm, leg edema,leg ulcers, numbness in extremities or weakness in extremities Respiratory/Chest Respiratory/Chest: Denies cough, excessive phlegm production, shortness of breath at rest, shortness of breath with exertion or wheezing Gastrointestinal Gastrointestinal: Reports change in stool character and melena; Denies anorexia,constipation, diarrhea or rectal bleeding Genitourinary Genitourinary: Denies dysuria or hematuria Musculoskeletal Musculoskeletal: Denies abnormal gait Integumentary Integumentary: Denies erythema, non-healing lesions or wounds Neurologic Neurologic: Denies abnormal speech, focal weakness, headache(s), loss of vision,numbness, paresthesias or sensory deficit Hematologic/Lymphatic Hematologic/Lymphatic: Denies easy bleeding, easy bruising or lymphadenopathy Physical Exam Const alert, oriented x3, no apparent distress and healthy appearing General Appearance: cooperative and ill appearing; Negative for combative or lethargic Orientation / Consciousness: awake Exam Limitations: no limitations HEENT Head and Scalp: normocephalic and atraumatic Mouth: oral and palatal mucosa normal, lips normal and tongue normal Eyes EOMs intact bilaterally General Eye: normal appearance of both eyes Neck full ROM General: trachea midline Resp normal respiratory effort and no use of accessory muscles Effort and Inspection: Negative for labored, stridor or audible wheezes Cardio regular rate and regular rhythm Back/Spine Cervical Spine: cervical ROM normal Extremity full ROM, normal capillary refill and no clubbing, cyanosis or edema Skin no rashes or lesions noted and no wounds Neuro oriented x3, CN's II-XII intact bilaterally, no focal motor deficits and no sensory deficits noted Psych thought process normal, cooperative, affect normal, speech normal and activity/motor behavior normal Lab / Micro Data 08/09/24 06:13 08/09/24 06:13 Labs: Laboratory Results - last 24 hr 08/09/24 06:13: WBC 12.1 H, RBC 3.43 L, Hgb 10.2 L, Hct 29.8 L, MCV 86.9, MCH 29.7, MCHC 34.2, RDW Std Deviation 46.7 H, RDW Coeff of Edna 14.7 H, Plt Count 223, MPV 9.5, Immature Gran % (Auto) 1.000 H, Neut % (Auto) 87.4 H, Lymph % (Auto) 5.5 L, [place] % (Auto) 5.4, Eos % (Auto) 0.5, Baso % (Auto) 0.2, Absolute Neuts (auto) 10.6 H, Absolute Lymphs (auto) 0.67 L, Nucleated RBC % 0, Sodium 139, Potassium 3.2 L, Chloride 106, Carbon Dioxide 24.4, Anion Gap 9, BUN 16, Creatinine 0.51 L, Estim Creat Clear Calc 88.72, Est GFR (MDRD) Non-Af 109, BUN/Creatinine Ratio 31.8 H, Glucose 116 H, Calcium 7.7,Phosphorus 1.3 L*, Magnesium 1.9, Procalcitonin 0.70 H Micro: Microbiology 08/09/24 08:10 Mucosa - Nose SARS-CoV-2, Influenza & RSV (PCR) - Final Imaging Radiology Impression Chest CTA 08/09/24 08:02 IMPRESSION: The study is positive for bilateral pulmonary embolism at the upper hilar level.Partially occlusivepulmonary embolism at the right upper lobe interlobar division for example axial 119 through 148 and branching of the interlobar arteries left upper lobe distally appearing occlusive for example axial 139 at the segment divisions and axial 109. No CT evidence of right heart strain. Moderate left and small right posterior layering pleural effusions with associated adjacent partialpassive collapse, atelectasis. Limited images of the upper abdomen with findings concerning for areas of free air and free fluid left upper quadrant about the spleen, clinically correlate. Red Alert: Pulmonary embolism as described and findings concerning for possible free air and free fluid partially imaged visualized left upper quadrant The critical information above was relayed directly by me by telephone to Brandie Spears on 08/09/2024 at 9:18 am with readback verification. Reading Location: [facility] Abdomen/Pelvis CT 08/09/24 09:40 IMPRESSION: 1. Redemonstrated small to moderate volume ill-defined free fluid and air in theperisplenic/subdiaphragmatic region, suggesting perforated viscus, presumably related to previously suspected duodenal ulcer although this is not definite and proximity of these findings to the stomach is noted. A tiny focus of high density along the medialspleen is new from prior and is suspicious for minimal extravasated PO contrast given a small amount of high-density presumed PO contrast within the stomach. 2. Findings suggestive of cystitis and/or chronic bladder outlet obstruction given prostatomegaly. Correlate with urinalysis. 3. Refer to recent CTA chest report for intrathoracic findings. 4. Additional description as above. Reading Location: [facility] 08/09/24 1136 Cosigner Signature (if applicable): CC: Dr. Dante Gurrola MD~ Signed [facility]05-07-2025 Radiology Diagnostic study note [facility] Imaging Services [address] [place] [address] Abdomen/Pelvis without Cont MR#: [id number] Acct: [id number] Name: LAINE GARCIA Rep #: [id number] : 1955 M 69 From: Leidy Rodrigues MD PCP: Dr. Dante Gurrola MD Status: ADM I N Study:Abdomen/Pelvis without Cont Date of Exa m: 08/09/24 Exam# [id number] Ordering Dr: Lashay Spears DO PROCEDURE: ABDOMEN/PELVIS WITHOUT CONT, 08/09/2024 REASON FOR EXAM: FREE AIR TECHNIQUE: CT abdomen and pelvis was performed without IV contrast. Multiplanar reformats were generated. IV contrast: None. RADIATION DOSE SUMMARY: CTDlvol: 9.68 mGy DLP: 539.51 mGycm One or more dose reduction techniques were used (e.g., Automated exposure control, adjustment of the mA and/or kV according to patient size, use of iterative reconstruction technique). COMPARISON: CTA chest of same date and prior FINDINGS: Note that evaluation of the abdominopelvic viscera, vasculature, and remaining soft tissues is limited in the absence of IV contrast. Note that the ischial tuberosities are minimally excluded from the field of view inferiorly. Lung bases: Better evaluated on recent CTA chest.. Liver: Similar LEFT lobe cyst.. Spleen: Unremarkable. Gallbladder: High-density material within the gallbladder lumen, probably vicarious contrast excretion given this is new from 08/05/2024. Pancreas: Unremarkable. Adrenals: Unremarkable. Kidneys: Excreted contrast in the renal collecting systems. Bilateral renal sinus cysts. Cortical cyst on the RIGHT. Symmetric nonspecific perinephric stranding Bowel: Removal of the enteric tube. Redemonstrated stent extending from the pylorus into the proximal duodenum. Tiny amount of presumed PO contrast in the stomach. Gaseous distention of the colon without marylou dilatation. Nondilated small bowel.. Normal caliber appendix. Lymph nodes: Unremarkable. Vasculature: Mild atherosclerosis. Peritoneum: Vudcg-up-fkhqrigr volume ill-defined free fluid and air in the perisplenic/subdiaphragmatic region. No loculated collection evident in the absence of IV contrast. Tiny focus of high-density along the medial spleen is new from prior and could conceivably reflect extravasated PO contrast given suspected small amount of high-density presumed PO contrast within the stomach. Similar nonspecific presacral stranding. Bladder: Underdistended and suboptimally evaluated. Opacified by excreted contrast. Bladder wall thickening appears disproportionate to degree of underdistention.. Reproductive Organs: Prostatomegaly. Body Wall: Body wall edema has increased.. Bones: Mild thoracic levoscoliosis. Multilevel spondylosis.. CT/Abdomen/Pelvis without Cont IMPRESSION: 1. Redemonstrated small to moderate volume ill-defined free fluid and air in theperisplenic/subdiaphragmatic region, suggesting perforated viscus, presumably related to previously suspected duodenal ulcer although this is not definite and proximity of these findings to the stomach is noted. A tiny focus of high density along the medialspleen is new from prior and is suspicious for minimal extravasated PO contrast given a small amount of high-density presumed PO contrast within the stomach. 2. Findings suggestive of cystitis and/or chronic bladder outlet obstruction given prostatomegaly. Correlate with urinalysis. 3. Refer to recent CTA chest report for intrathoracic findings. 4. Additional description as above. Reading Location: [id number] CC: Dr. Dante Gurrola MD; Dr. Brandie Spears DO ~ Acidizer Water Well: Signed [facility]05-07-2025 Radiology Diagnostic study note [facility] Imaging Services [address] [place] [address] [id number] CTA Chest W/WO Contrast MR#: [id number] Acct: [id number] Name: LAINE GARCIA Rep #: [id number] : 1955 M 69 From: Durga Huang MD PCP: Dr. Dante Gurrola MD Status: ADM I N Study:CTA Chest W/WO Contrast Date of Exam: 08/09/24 Exam# [id number] Ordering Dr: Lashay Spears DO PROCEDURE: CTA CHEST W/WO CONTRAST 08/09/2024 REASON FOR EXAM: PLEURITIC CHEST PAIN TECHNIQUE: CTA imaging of the chest with intravenous contrast. Multiplanar and multisequence images were obtained. Coronal and sagittal MIP images CONTRAST: 100 cc Isovue 370 IV One or more dose reduction techniques were used (e.g., Automated exposure control, adjustment of the mA and/or kV according to patient size, use of iterative reconstruction technique). RADIATION DOSE SUMMARY: CTDlvol: 14.25 mGy DLP: 374.58 mGycm FINDINGS: The study is positive for bilateral pulmonary embolism at the upper hilar level. Partially occlusive pulmonary embolism at the right upper lobe interlobar division for example axial 119 through 148 and branching of the interlobar arteries left upper lobe distally appearing occlusive for example axial 139 at the segment divisions and axial 109. No CT evidence of right heart strain. The central airways appear patent. Moderate left and small right posterior layering pleural effusions with associated adjacent partial passive collapse, atelectasis. Ectatic thoracic aorta appears within limits. No pericardial effusion. Limited images of the upper abdomen with findings concerning for areas of free air and free fluid left upper quadrant about the spleen, clinically correlate. The visualized osseous structures appear within limits. Lower cervical spondylosis/discogenic change partially imaged. CT/CTA Chest W/WO Contrast IMPRESSION: The study is positive for bilateral pulmonary embolism at the upper hilar level.Partially occlusivepulmonary embolism at the right upper lobe interlobar division for example axial 119 through 148 and branching of the interlobar arteries left upper lobe distally appearing occlusive for example axial 139 at the segment divisions and axial 109. No CT evidence of right heart strain. Moderate left and small right posterior layering pleural effusions with associated adjacent partialpassive collapse, atelectasis. Limited images of the upper abdomen with findings concerning for areas of free air and free fluid left upper quadrant about the spleen, clinically correlate. Red Alert: Pulmonary embolism as described and findings concerning for possible free air and free fluid partially imaged visualized left upper quadrant The critical information above was relayed directly by me by telephone to Brandie Spears on 08/09/2024 at 9:18 am with readback verification. Reading Location: [facility] CC: Dr. Dante Gurrola MD; Dr. Brandie Spears DO ~ Acidizer Water Well: Signed [facility]05-06-2025 Progress note Author Betito Avendano [facility] Note Date/Time August 08, 2024 6:24pm [facility] Medical Records Department [address] [place] [address] Progress Note 08/08/24 1821 MR#: [id number] Acct: [id number] Name: JOSELAINE Ned Rep #:[id number] : 1955 69 From: Betito Avendano DO PCP: Dr. Dante Gurrola MD Status:ADM I N Location: ICU CVICU20 1-1 Progress Note Patient is feeling little bit better today. He still has some mild abdominal pain. He still passing gas. He denied any fevers or chills. He still on antibiotic therapy and PPI. His NG tube came out and he was placed on a liquid diet. Physical Exam Const alert, oriented x3 and average body habitus Resp normal respiratory effort, normal air movement and clear to auscultation bilaterally Cardio regular rate, regular rhythm, no murmurs and diaphoretic Assessment & Plan Assessment/Plan (1) Duodenal ulcer: (2) Abdominal pain: (3) Orthostatic hypotension: PLAN: Plan 69-year-old gentleman with Acute on chronic anemia due to acute bleeding peptic ulcer secondary to possible NSAID induced injury from aspirin. * Originally patient admitted with complaint of abdominal pain and maroon- colored stools as well as syncope. He had EGD which showed normal esophagus and no gross lesions in the entire stomach and showed spurting duodenal ulcers with a visible vessel which was injected and treated with argon plasma coagulation and a nonbleeding duodenal ulcer with no stigmata of bleeding which was also treated with argon plasma coagulation * Hemoglobin dropped to 6.4 y so he was transfused with 2 more units of packed red blood cells. On pantoprazole drip * His hemoglobin went back up to 10.4 and today is 9.8. He underwent repeat upper endoscopy yesterday. And had his duodenal ulcer treated again with epinephrine argon plasma coagulation and cautery. He also had a duodenal stent placed with severe stricture with gastric outlet obstruction. He had a lot of retained gas consistent with ileus after the procedure so NG tube was placed. NG tube came out overnight. His CT scan had showed improvement of gas without any signs of pneumoperitoneum. He is continues to improve. If he does well we will advance his diet as tolerated tomorrow. Visit Charges Inpatient E&M: 80722 Subs Hosp L3 08/08/247 <Electronically signed by Betito Avendano DO> Betito Avendano DO Cosigner Signature (if applicable): CC: ~ Signed [facility] Work Phone: 1(795) 384-424605-06-2025 Progress note Author Brandie Spears [facility] Note Date/Time August 08, 2024 6:08pm [facility] Medical Records Department [address] [place] [address] Progress Note - Hospitalist 08/08/24 0706 MR#: [id number] Acct: [id number] Name: LAINE GARCIA Rep #:[id number] : 1955 69 From: Brandie Spears DO PCP: Dr. Dante Gurrola MD Status:ADM I N Location: ICU [place] [address] 1- Reason for Visit Reason for Visit: Melena Subjective Subjective Patient states he is having just a little bit of lower abdominal pain but no epigastric pain. Would like to try clear liquids. We have started these. Appreciative of removal of NG tube. No specific complaints at this time. No nausea. Objective Data Objective Data Vital Signs: Vital Signs Temp Pulse Resp BP Pulse Ox O2 Del Method O2 Flow Rate 98.2 F 73 18 126/70 H 95 Room Air 6 08/08/24 02:30 08/08/24 07:00 08/08/24 07:00 08/08/24 07:00 08/08/24 07:00 08/08/24 07:00 08/07/24 18:57 Oxygen Flow Rate (L/min) 6 Oxygen Delivery Method Room Air Weight: 82.2 kg Body Mass Index (BMI) 25.9 Intake & Output: Intake and Output for Last 24 Hours 08/06/24 08/07/24 08/08/24 23:59 23:59 23:59 Intake Total 4484.00 / 4484.00 1618.75 / 1618.75 488.67 / 488.67 Output Total 700 / 700 675 / 675 375 / 375 Balance 3784.00 / 3784.00 943.75 / 943.75 113.67 / 113.67 Lab / Micro Data 08/08/24 07:30 08/08/24 07:30 Labs: Laboratory Results - last 24 hr 08/06/24 17:56: Crossmatch See Detail 08/07/24 08:22: WBC 14.6 H, RBC 3.43 L, Hgb 10.3 L, Hct 30.2 L, MCV 88.0, MCH 30.0, MCHC 34.1, RDW Std Deviation 46.8 H, RDW Coeff of Edna 14.8 H, Plt Count 214, MPV 9.2, Immature Gran % (Auto) 1.000 H, Neut % (Auto) 92.7 H, Lymph % (Auto) 2.3 L, [place] % (Auto) 3.9, Eos % (Auto) 0.0, Baso % (Auto) 0.1, Absolute Neuts (auto) 13.6 H, Absolute Lymphs (auto) 0.34 L, Nucleated RBC % 0, Sodium 138, Potassium 3.3, Chloride 107, Carbon Dioxide 21.5, Anion Gap 9, BUN 18, Creatinine 0.68 L, Estim Creat Clear Calc 88.72, Est GFR (MDRD) Non-Af 100, BUN/Creatinine Ratio 26.1 H, Glucose 142 H, Calcium 7.8, Total Bilirubin 0.78, AST 14, ALT 6, Alkaline Phosphatase 60, Total Protein 5.3 L, Albumin 3.0 L, Globulin 2.3, Albumin/Globulin Ratio 1.3 08/07/24 12:26: PT 16.0 H, INR 1.3, APTT 33.7 Radiography Diagnostic Testing: Radiology Impression [facility] X-Ray 08/07/24 18:20 IMPRESSION: Bowel-gas pattern suggests severe adynamic/reflex ileus. Suspicion of previous TIPS procedure. Reading Location: [facility] K[facility] X-Ray 08/07/24 18:31 IMPRESSION: Interval insertion of a nasogastric tube, tip projecting over the body of the stomach. Bowel-gas pattern unchanged. Reading Location: [facility] Abdomen/Pelvis CT 08/07/24 18:37 IMPRESSION: Interval placement gastroduodenal stent, since prior. No pneumoperitoneum. Otherwise, no acute findings in the abdomen and pelvis. Reading Location: [facility] Physical Exam Const alert, oriented x3, no apparent distress and average body habitus Constitutional Narrative: Older, Christianity male, sitting up in bed, family at bedside, appears comfortable, nontoxic HEENT head/scalp atraumatic and moist oral mucous membranes Head and Scalp: normocephalic Resp normal respiratory effort, no retractions, no use of accessory muscles and clearto auscultation bilaterally Auscultation: Negative for rales, rhonchi or wheezes Cardio regular rate, regular rhythm, S1 normal heart sound, S2 normal heart sound, no murmurs, no rub, no gallops and no clicks GI normal to inspection, nondistended, normoactive bowel sounds and soft to palpation GI Narrative: Mild tenderness bilateral lower abdominal quadrants left greater than right Extremity no clubbing, cyanosis or edema Extremity Narrative: Pedal and radial pulses are 2+ Neuro oriented x3, moves all extremities and no focal motor deficits Speech: speech normal Psych affect normal Psych Narrative: Very pleasant, interacts appropriately, eye contact is good Assessment & Plan Assessment/Plan (1) Duodenal ulcer: (2) Orthostatic hypotension: (3) Upper GI bleed: (4) Acute anemia: (5) Leukocytosis: PLAN: Plan Upper GI bleed secondary to multiple duodenal ulcers - EGD performed on 08/07/2024 and esophagus and stomach were found to be normal. Many cratered duodenal ulcers with visible vessels were found in the duodenal bulb and first portion duodenum. The areas were successfully injected with epinephrine and coagulation was used as well for hemostasis there was concern for duodenal obstruction so a stent was placed under fluoroscopic guidance. 5 hemostatic clips were also placed during the procedure. Biopsies were taken - Patient has received a total of 4 units of packed red blood cells -Hemoglobin relatively stable over the last 24 hours - Start clear liquid diet - Continue Protonix drip - Start Carafate -Was placed on Cipro and Flagyl by GI--> continue until okay to discontinue withGI as this is a prophylaxis -Continue to hold aspirin and will need GI input for duration of holding medication at discharge - Await biopsies to see if patient test positive for H. pylori - GI following-appreciate input--> Discussed p.o. status with Dr. Avendano Acute anemia secondary to upper GI bleed - Kevin hemoglobin was 6.7 on 08/06/2024 - Patient received 4 units packed red blood cells and corrected appropriately - Currently 9.8 and seems to be stabilizing - No signs of bleeding at this time - Repeat CBC in a.m. Leukocytosis - Suspect reactive - Trending down without intervention Acute hypotension - Secondary to GI bleed and anemia - Resolved with volume resuscitation History of DVT - Remote - SCDs as chemoprophylaxis is contraindicated History of MVP - Outpatient follow-up DVT prophylaxis - Continue SCDs - Avoid chemoprophylaxis due to GI bleed on presentation CODE STATUS - Full code Disposition: - Patient is hemodynamically stable will transfer to [facility] Charges/Coding Visit Charges Inpatient E&M: 37481 Subs Hosp L2 08/08/24 1808 <Electronically signed by Brandie Spears DO> Cosigner Signature (if applicable): CC: ~ Signed [facility] Work Phone: 1(884) 967-635705-06-2025 Progress note [facility] Medical Records Department [address] [place] [address] Progress Note 08/08/24 1821 MR#: [id number] Acct: [id number] Name: LAINE GARCIA Rep #:[id number] : 1955 69 From: Betito Avendano DO PCP: Dr. Dante Gurrola MD Status:ADM I N Location: ICU CVICU20 1-1 Progress Note Patient is feeling little bit better today. He still has some mild abdominal pain. He still passinggas. He denied any fevers or chills. He still on antibiotic therapy and PPI. His NG tube came out and he was placed on a liquid diet. Physical Exam Const alert, oriented x3 and average body habitus Resp normal respiratory effort, normal air movement and clear to auscultation bilaterally Cardio regular rate, regular rhythm, no murmurs and diaphoretic Assessment & Plan Assessment/Plan (1) Duodenal ulcer: (2) Abdominal pain: (3) Orthostatic hypotension: PLAN: Plan 69-year-old gentleman with Acute on chronic anemia due to acute bleeding peptic ulcer secondary to possible NSAID induced injury from aspirin. * Originally patient admitted with complaint of abdominal pain and maroon- colored stools as well as syncope. He had EGD which showed normal esophagus and no gross lesions in the entire stomach and showed spurting duodenal ulcers with a visible vessel which was injected and treated with argon plasma coagulation and a nonbleeding duodenal ulcer with no stigmata of bleeding which was also treated with argon plasma coagulation * Hemoglobin dropped to 6.4 y so he was transfused with 2 more units of packed red blood cells. On pantoprazole drip * His hemoglobin went back up to 10.4 and today is 9.8. He underwent repeat upper endoscopy yesterday. And had his duodenal ulcer treated again with epinephrine argon plasma coagulation and cautery. He also had a duodenal stent placed with severe stricture with gastric outlet obstruction. He had a lot of retained gas consistent with ileus after the procedure so NG tube was placed. NG tube came out overnight. His CT scan had showed improvement of gas without any signs of pneumoperitoneum. He is continues to improve. If he does well we will advance his diet as tolerated tomorrow. Visit Charges Inpatient E&M: 74335 [facility] Hosp L3 08/08/24 1823 [facility] Friend DO Cosigner Signature (if applicable): CC: ~ Signed [facility]05-06-2025 Progress note [facility] Medical Records Department [address] [place] [address] Progress Note - Hospitalist 08/08/24705 MR#: [id number] Acct: [id number] Name: LAINE GARCIA Rep #:[id number] : 1955 69 From: Brandie Spears DO PCP: Dr. Dante Gurrola MD Status:ADM I N Location: ICU CVICU20 04-05 Reason for Visit Reason for Visit: Melena Subjective Subjective Patient states he is having just a little bit of lower abdominal pain but no epigastric pain. Wouldlike to try clear liquids. We have started these. Appreciative of removal of NG tube. No specific complaints at this time. No nausea. Objective Data Objective Data Vital Signs: Vital Signs Temp Pulse Resp BP Pulse Ox O2 Del Method O2 Flow Rate 98.2 F 73 18 126/70 H 95 Room Air 6 08/08/24 02:30 08/08/24 07:00 08/08/24 07:00 08/08/24 07:00 08/08/24 07:00 08/08/24 07:00 08/07/24 18:57 Oxygen Flow Rate (L/min) 6 Oxygen Delivery Method Room Air Weight: 82.2 kg Body Mass Index (BMI) 25.9 Intake & Output: Intake and Output for Last 24 Hours 08/06/24 08/07/24 08/08/24 23:59 23:59 23:59 Intake Total 4484.00 / 4484.00 1618.75 / 1618.75 488.67 / 488.67 Output Total 700 / 700 675 / 675 375 / 375 Balance 3784.00 / 3784.00 943.75 / 943.75 113.67 / 113.67 Lab / Micro Data 08/08/24 07:30 08/08/24 07:30 Labs: Laboratory Results - last 24 hr 08/06/24 17:56: Crossmatch See Detail 08/07/24 08:22: WBC 14.6 H, RBC 3.43 L, Hgb 10.3 L, Hct 30.2 L, MCV 88.0, MCH 30.0, MCHC 34.1, RDW Std Deviation 46.8 H, RDW Coeff of Edna 14.8 H, Plt Count 214, MPV 9.2, Immature Gran % (Auto) 1.000 H, Neut % (Auto) 92.7 H, Lymph % (Auto) 2.3 L, [place] % (Auto) 3.9, Eos % (Auto) 0.0, Baso % (Auto) 0.1, Absolute Neuts (auto) 13.6 H, Absolute Lymphs (auto) 0.34 L, Nucleated RBC % 0, Sodium 138, Potassium 3.3, Chloride 107, Carbon Dioxide 21.5, Anion Gap 9, BUN 18, Creatinine 0.68 L, Estim Creat Clear Calc 88.72, Est GFR (MDRD) Non-Af 100, BUN/Creatinine Ratio 26.1 H, Glucose 142 H, Calcium 7.8, Total Bilirubin 0.78, AST 14, ALT 6, Alkaline Phosphatase 60, Total Protein 5.3 L, Albumin 3.0 L, Glob ulin 2.3, Albumin/Globulin Ratio 1.3 08/07/24 12:26: PT 16.0 H, INR 1.3, APTT 33.7 Radiography Diagnostic Testing: Radiology Impression KUB X-Ray 08/07/24 18:20 IMPRESSION: Bowel-gas pattern suggests severe adynamic/reflex ileus. Suspicion of previous TIPS procedure. Reading Location: [facility] X-Ray 08/07/24 18:31 IMPRESSION: Interval insertion of a nasogastric tube, tip projecting over the body of the stomach. Bowel-gas pattern unchanged. Reading Location: [facility] Abdomen/Pelvis CT 08/07/24 18:37 IMPRESSION: Interval placement gastroduodenal stent, since prior. No pneumoperitoneum. Otherwise, no acute findings in the abdomen and pelvis. Reading Location: [facility] Physical Exam Const alert, oriented x3, no apparent distress and average body habitus Constitutional Narrative: Older, Christianity male, sitting up in bed, family at bedside, appears comfortable, nontoxic HEENT head/scalp atraumatic and moist oral mucous membranes Head and Scalp: normocephalic Resp normal respiratory effort, no retractions, no use of accessory muscles and clearto auscultation bilaterally Auscultation: Negative for rales, rhonchi or wheezes Cardio regular rate, regular rhythm, S1 normal heart sound, S2 normal heart sound, no murmurs, no rub, no gallops and no clicks GI normal to inspection, nondistended, normoactive bowel sounds and soft to palpation GI Narrative: Mild tenderness bilateral lower abdominal quadrants left greater than right Extremity no clubbing, cyanosis or edema Extremity Narrative: Pedal and radial pulses are 2+ Neuro oriented x3, moves all extremities and no focal motor deficits Speech: speech normal Psych affect normal Psych Narrative: Very pleasant, interacts appropriately, eye contact is good Assessment & Plan Assessment/Plan (1) Duodenal ulcer: (2) Orthostatic hypotension: (3) Upper GI bleed: (4) Acute anemia: (5) Leukocytosis: PLAN: Plan Upper GI bleed secondary to multiple duodenal ulcers - EGD performed on 08/07/2024 and esophagus and stomach were found to be normal. Many cratered duodenal ulcers with visible vessels were found in the duodenal bulb and first portion duodenum. The areaswere successfully injected with epinephrine and coagulation was used as well for hemostasis there was concern for duodenal obstruction so a stent was placed under fluoroscopic guidance. 5 hemostatic clips were also placed during the procedure. Biopsies were taken - Patient has received a total of 4 units of packed red blood cells -Hemoglobin relatively stable over the last 24 hours - Start clear liquid diet - Continue Protonix drip - Start Carafate -Was placed on Cipro and Flagyl by GI--> continue until okay to discontinue withGI as this is a prophylaxis -Continue to hold aspirin and will need GI input for duration of holding medication at discharge - Await biopsies to see if patient test positive for H. pylori - GI following-appreciate input--> Discussed p.o. status with Dr. Avendano Acute anemia secondary to upper GI bleed - Kevin hemoglobin was 6.7 on 08/06/2024 - Patient received 4 units packed red blood cells and corrected appropriately - Currently 9.8 and seems to be stabilizing - No signs of bleeding at this time - Repeat CBC in a.m. Leukocytosis - Suspect reactive - Trending down without intervention Acute hypotension - Secondary to GI bleed and anemia - Resolved with volume resuscitation History of DVT - Remote - SCDs as chemoprophylaxis is contraindicated History of MVP - Outpatient follow-up DVT prophylaxis - Continue SCDs - Avoid chemoprophylaxis due to GI bleed on presentation CODE STATUS - Full code Disposition: - Patient is hemodynamically stable will transfer to [facility] Charges/Coding Visit Charges Inpatient E&M: 98221 Subs Hosp L2 08/08/24 4415 Cosigner Signature (if applicable): CC: ~ Signed [facility]05-06-2025 Progress note Author Melonie [facility] Note Date/Time August 08, 2024 6:[address] [place] [address] System Medical Records Department [address] [place] [address] Progress Note 08/07/24 1034 MR#: [id number] Acct: [id number] Name: LAINE GARCIA Rep #:[id number] : 1955 69 From: Melonie Odell MD PCP: Dr. Dante Gurrola MD Status:ADM I N Location: ICU CVICU20 1-1 Subjective Subjective Patient seen and examined. His and his niece were by his bedside. He saidhe felt very weak and tired. His hemoglobin did drop to 6.4 overnight and he was transfused with 2 more units of packed red blood cells. He denies any nausea or vomiting, fever or chills today. Objective Data Objective Data Vital Signs: Vital Signs Temp Pulse Resp BP Pulse Ox O2 Del Method 98.4 F 88 16 146/83 H 95 Room Air 08/07/24 08:46 08/07/24 08:46 08/07/24 08:46 08/07/24 08:46 08/07/24 08:46 08/07/24 08:46 Oxygen Delivery Method Room Air Weight: 171 lb 8.314 oz Body Mass Index (BMI) 24.0 Intake & Output: Intake and Output for Last 24 Hours 08/05/24 08/06/24 08/07/24 23:59 23:59 23:59 Intake Total 1999 4484.00 / 4484.00 838.08 / 838.08 Output Total 700 / 700 Balance 1999 3784.00 / 3784.00 838.08 / 838.08 Lab / Micro Data 08/07/24 08:22 08/07/24 08:22 Labs: Laboratory Results - last 24 hr 08/06/24 17:56: Hgb 6.7 L, Hct 20.2 L, Blood Type O POSITIVE, Antibody Screen NEGATIVE, Crossmatch See Detail 08/06/24 17:56: Crossmatch See Detail 08/07/24 08:22: WBC 14.6 H, RBC 3.43 L, Hgb 10.3 L, Hct 30.2 L, MCV 88.0, MCH 30.0, MCHC 34.1, RDW Std Deviation 46.8 H, RDW Coeff of Edna 14.8 H, Plt Count 214, MPV 9.2, Immature Gran % (Auto) 1.000 H, Neut % (Auto) 92.7 H, Lymph % (Auto) 2.3 L, [place] % (Auto) 3.9, Eos % (Auto) 0.0, Baso % (Auto) 0.1, Absolute Neuts (auto) 13.6 H, Absolute Lymphs (auto) 0.34 L, Nucleated RBC % 0, Sodium 138, Potassium 3.3, Chloride 107, Carbon Dioxide 21.5, Anion Gap 9, BUN 18, Creatinine 0.68 L, Estim Creat Clear Calc 88.72, Est GFR (MDRD) Non-Af 100, BUN/Creatinine Ratio 26.1 H, Glucose 142 H, Calcium 7.8, Total Bilirubin 0.78, AST 14, ALT 6, Alkaline Phosphatase 60, Total Protein 5.3 L, Albumin 3.0 L, Globulin 2.3, Albumin/Globulin Ratio 1.3 Physical Exam Const alert, oriented x3 and no apparent distress General Appearance: cooperative HEENT normocephalic, head/scalp atraumatic, moist oral mucous membranes, oropharynx normal and gingiva normal Eyes PERRL and EOMs intact bilaterally Neck no lymphadenopathy and supple Lymph Lymphatic: no lymphadenopathy noted and no lymphedema noted Resp normal respiratory effort, normal air movement and clear to auscultation bilaterally Cardio regular rate, regular rhythm, S1 normal heart sound, S2 normal heart sound and no murmurs GI normal to inspection, nondistended, normoactive bowel sounds, soft to palpation,non-tender and non-distended Extremity normal capillary refill, no clubbing, cyanosis or edema and no calf tenderness General Extremity: no tenderness to palpation of joints or extremities Skin General Skin Exam: no breakdown Neuro CN's II-XII intact bilaterally, no focal motor deficits and no sensory deficits noted Motor Exam: strength 5/5 throughout and general weakness Psych thought process normal and cooperative Appearance: appropriate Assessment & Plan Assessment/Plan (1) Duodenal ulcer: (2) Abdominal pain: (3) Orthostatic hypotension: PLAN: Plan #Acute on chronic anemia due to acute bleeding peptic ulcer * Patient admitted with complaint of abdominal pain and maroon-colored stools as well as syncope. He had EGD yesterday which showed normal esophagus and no gross lesions in the entire stomach and showed spurting duodenal ulcers with a visible vessel which was injected and treated with argon plasma coagulation and a nonbleeding duodenal ulcer with no stigmata of bleeding which was also treated with argon plasma coagulation * Hemoglobin dropped to 6.4 yesterday so he was transfused with 2 more units of packed red blood cells. On pantoprazole drip * Currently NPO. Awaiting GI evaluation to see if he will be scoped again otherwise. * # Hypotension * Resolved after IV fluid hydration. Blood pressure today is 146/83. * #Leukocytosis: * WBCs 14.6.3. No evidence of infection. * Urinalysis showed no evidence of infection. * May be reactive due to the GI bleed. * Will monitor for now. * DVT prophylaxis: SCDs. No anticoagulation in light of GI bleed. Charges/Coding Visit Charges Inpatient E&M: 05884 Subs Hosp L2 08/07/24 2700 <Electronically signed by Melonie Odell MD> Melonie Odell MD Cosigner Signature (if applicable): CC: ~ Signed ADDENDUM by Dr. Melonie Odell MD on 08/08/24 at 0609 Addendum I was informed by GI at ~ 18:50 on 08/07/2024 that patient had repeat EGD which again showed several bleeding peptic ulcers which were cauterised and clips wereplaced. Patient had a transendoscopic stent inserted also, and per GI, patient had a distended abdomen subsequently. GI therefore ordered a CT abdoment to evaluate the distended abdomen, and recommendation was for patient to be transferred to ICU out of an abundance of precaution for closer monitoring. Senior Art Director informed and patient transferred to the ICU. 08/08/24 0609 <Electronically signed by Melonie hamilton MD> Date _ Melonie Odell MD Cosigner Signature (if applicable): Date cc: ~* Signed [facility] Work Phone: 1(627) 416-406305-06-2025 Progress note [facility] System Medical Records Department [address] [place] [address] Progress Note 08/07/24 1034 MR#: [id number] Acct: [id number] Name: LAINE GARCIA Rep #:[id number] : 1955 69 From: Melonie Odell MD PCP: Dr. Dante Gurrola MD Status:ADM I N Location: ICU CVICU20 1-1 Subjective Subjective Patient seen and examined. His and his niece were by his bedside. He saidhe felt very weak andtired. His hemoglobin did drop to 6.4 overnight and he was transfused with 2 more units of packed red blood cells. He denies any nausea or vomiting, fever or chills today. Objective Data Objective Data Vital Signs: Vital Signs Temp Pulse Resp BP Pulse Ox O2 Del Method 98.4 F 88 16 146/83 H 95 Room Air 08/07/24 08:46 08/07/24 08:46 08/07/24 08:46 08/07/24 08:46 08/07/24 08:46 08/07/24 08:46 Oxygen Delivery Method Room Air Weight: 171 lb 8.314 oz Body Mass Index (BMI) 24.0 Intake & Output: Intake and Output for Last 24 Hours 08/05/24 08/06/24 08/07/24 23:59 23:59 23:59 Intake Total 1999 4484.00 / 4484.00 838.08 / 838.08 Output Total 700 / 700 Balance 1999 3784.00 / 3784.00 838.08 / 838.08 Lab / Micro Data 08/07/24 08:22 08/07/24 08:22 Labs: Laboratory Results - last 24 hr 08/06/24 17:56: Hgb 6.7 L, Hct 20.2 L, Blood Type O POSITIVE, Antibody Screen NEGATIVE, Crossmatch See Detail 08/06/24 17:56: Crossmatch See Detail 08/07/24 08:22: WBC 14.6 H, RBC 3.43 L, Hgb 10.3 L, Hct 30.2 L, MCV 88.0, MCH 30.0, MCHC 34.1, RDW Std Deviation 46.8 H, RDW Coeff of Edna 14.8 H, Plt Count 214, MPV 9.2, Immature Gran % (Auto) 1.000 H, Neut % (Auto) 92.7 H, Lymph % (Auto) 2.3 L, [place] % (Auto) 3.9, Eos % (Auto) 0.0, Baso % (Auto) 0.1, Absolute Neuts (auto) 13.6 H, Absolute Lymphs (auto) 0.34 L, Nucleated RBC % 0, Sodium 138, Potassium 3.3, Chloride 107, Carbon Dioxide 21.5, Anion Gap 9, BUN 18, Creatinine 0.68 L, Estim Creat Clear Calc 88.72, Est GFR (MDRD) Non-Af 100, BUN/Creatinine Ratio 26.1 H, Glucose 142 H, Calcium 7.8, Total Bilirubin 0.78, AST 14, ALT 6, Alkaline Phosphatase 60, Total Protein 5.3 L, Albumin 3.0 L, Glob ulin 2.3, Albumin/Globulin Ratio 1.3 Physical Exam Const alert, oriented x3 and no apparent distress General Appearance: cooperative HEENT normocephalic, head/scalp atraumatic, moist oral mucous membranes, oropharynx normal and gingiva normal Eyes PERRL and EOMs intact bilaterally Neck no lymphadenopathy and supple Lymph Lymphatic: no lymphadenopathy noted and no lymphedema noted Resp normal respiratory effort, normal air movement and clear to auscultation bilaterally Cardio regular rate, regular rhythm, S1 normal heart sound, S2 normal heart sound and no murmurs GI normal to inspection, nondistended, normoactive bowel sounds, soft to palpation,non-tender and non-distended Extremity normal capillary refill, no clubbing, cyanosis or edema and no calf tenderness General Extremity: no tenderness to palpation of joints or extremities Skin General Skin Exam: no breakdown Neuro CN's II-XII intact bilaterally, no focal motor deficits and no sensory deficits noted Motor Exam: strength 5/5 throughout and general weakness Psych thought process normal and cooperative Appearance: appropriate Assessment & Plan Assessment/Plan (1) Duodenal ulcer: (2) Abdominal pain: (3) Orthostatic hypotension: PLAN: Plan #Acute on chronic anemia due to acute bleeding peptic ulcer * Patient admitted with complaint of abdominal pain and maroon-colored stools as well as syncope. He had EGD yesterday which showed normal esophagus and no gross lesions in the entire stomach and showed spurting duodenal ulcers with a visible vessel which was injected and treated with argon plasma coagulation and a nonbleeding duodenal ulcer with no stigmata of bleeding which was also treated with argon plasma coagulation * Hemoglobin dropped to 6.4 yesterday so he was transfused with 2 more units of packed red blood cells. On pantoprazole drip * Currently NPO. Awaiting GI evaluation to see if he will be scoped again otherwise. * # Hypotension * Resolved after IV fluid hydration. Blood pressure today is 146/83. * #Leukocytosis: * WBCs 14.6.3. No evidence of infection. * Urinalysis showed no evidence of infection. * May be reactive due to the GI bleed. * Will monitor for now. * DVT prophylaxis: SCDs. No anticoagulation in light of GI bleed. Charges/Coding Visit Charges Inpatient E&M: 72619 Subs Hosp L2 08/07/24 9922 Melonie Odell MD Cosigner Signature (if applicable): CC: ~ Signed ADDENDUM by Dr. Melonie Odlel MD on 08/08/24 at 0609 Addendum I was informed by GI at ~ 18:50 on 08/07/2024 that patient had repeat EGD which again showed several bleeding peptic ulcers which were cauterised and clips wereplaced. Patient had a transendoscopic stent inserted also, and per GI, patient had a distended abdomen subsequently. GI therefore ordered a CT abdoment to evaluate the distended abdomen, and recommendation was for patient to be transferred to ICU out of an abundance of precaution for closer monitoring. Senior Art Director informed and patient transferred to the ICU. 08/08/24 0609 m > Date _ Melonie Odell MD Cosigner Signature (if applicable): Date cc: ~* Signed [facility]05-05-2025 Consult note Author Artemio Ranulfo [facility] Note Date/Time August 07, 2024 6:58pm [facility] Medical Records Department [address] [facility] [place] [address] Anesthesia Postop Eval II 08/07/24 1857 MR#: [id number] Acct: [id number] Name: LAINE GARCIA Rep #:[id number] : 1955 69 From: Artemio Winchester MD PCP: Dr. Dante Gurrola MD Status:ADM I N Y Race: C Location: [place] [id number] -1 Anesthesia Postop Eval I Sum Postop Eval Completion status Anesthesia document: Postop Eval 1 completed: Yes Anesthesia Postop Eval I Summary Anesthesia Postop Eval I Summary: Anesthesia Postop Eval I: Assessment Summary Airway patent Yes 08/07/24 18:57 Spontaneous unlabored Yes 08/07/24 18:57 respirations Mental status Awake 08/07/24 18:57 nausea No 08/07/24 18:57 Vomiting No 08/07/24 18:57 Anesthesia Postop Eval I: Fluid Summary Crystalloid volume administer 1,000 08/07/24 18:57 (ml) Colloids volume administered ( ml) Blood Product volume administered (ml) Total IV fluid infused 1,000 08/07/24 18:57 Anesthesia Postop Eval I: Summary Notes Anesthesia Complication No 08/07/24 18:57 Anesthesia Complication Comment: Post-operative progress note The patient's 08/07/24 18:57 abdomen was distended upon completion of the procedure, and extremely hard with almost no ability to push the belly in. We obtained an abdominal x-ray which showed a distended abdomen. An NG was placed by Dr. Avendano which allowed the belly to be less distended. Throughout this, the patient's vitals remained stable, although for ease of the patient, 2 mg versed and 100 mcg fentanyl were given. The patient is stable for discharge to the CT scanner, and will be accepted by the floor upon completion. The patient is stable for discharge from PACU at this time . General surgery was consulted by Dr. Avendano during this time. Anesthesia remains available for any intervention needed. Anesthesia: Postop Eval II Evaluation Mental status: Awake Pain Level: 3 nausea: No Vomiting: No Progress Note Post-operative progress note: The patient's abdomen was distended upon completion of the procedure, and extremely hard with almost no ability to push the belly in. We obtained an abdominal x-ray which showed a distended abdomen. An NG was placed by Dr. Avendano which allowed the belly to be less distended. Throughout this, the patient's vitals remained stable, although for ease of the patient, 2 mg versed and 100 mcg fentanyl were given. The patient is stable for discharge to the CT scanner, and will be accepted by the floor upon completion. The patient is stable for discharge from PACU at this time. General surgery was consulted by Dr. Avendano during this time. Anesthesia remains available for any intervention needed. The patient will be going to the CT scanner at this time. Complications Anesthesia Complication: No 05/05/25 1858 <Electronically signed by Artemio Winchester MD> Date _ Artemio Winchester MD Cosigner Signature: Date CC: ~ Signed [facility] Work Phone: [phone]) 961-179105-05-2025 Consult note Author Artemio Winchester [facility] Note Date/Time August 07, 2024 6:57pm [facility] Medical Records Department [address] [facility] [place] [address] Anesthesia Postop Eval I 08/07/241852 MR#: [id number] Acct: [id number] Name: GARCIALAINE Ned Rep #:[id number] : 1955 69 From: Artemio Winchester MD PCP: Dr. Dante Gurrola MD Status:ADM I N Y Race: C Location: [place] [id number] Anesthesia: Postop Eval I Current Vital Signs Temperature: 99.6 F Pulse Rate: 86 Blood Pressure: 141/93 Respiratory Rate: 18 Pulse Ox: 92 Oxygen Delivery Method: Nasal Cannula Oxygen Flow Rate (L/min): 6 Assessment Airway patent: Yes Spontaneous unlabored respirations: Yes Mental status: Awake nausea: No Vomiting: No Anesthesia Complication: No Fluid Hydration Crystalloid volume administer (ml): 1,000 Total IV fluid infused: 1,000 Progress Note Post-operative progress note: The patient's abdomen was distended upon completion of the procedure, and extremely hard with almost no ability to push the belly in. We obtained an abdominal x-ray which showed a distended abdomen. An NG was placed by Dr. Avendano which allowed the belly to be less distended. Throughout this, the patient's vitals remained stable, although for ease of the patient, 2 mg versed and 100 mcg fentanyl were given. The patient is stable for discharge to the CT scanner, and will be accepted by the floor upon completion. The patient is stable for discharge from PACU at this time. General surgery was consulted by Dr. Avendano during this time. Anesthesia remains available for any intervention needed. Anesthesia document: Postop Eval 1 completed: Yes 08/07/241856 <Electronically signed by Artemio Winchester MD> Date _ Artemio Winchester MD Cosigner Signature: Date CC: ~ Signed [facility] Work Phone: [phone]) 183-719305-05-2025 Radiology Diagnostic study note [facility] Imaging Services [address] [place] [address] Abdomen/Pelvis W IV Cont ONLY MR#: [id number] Acct: [id number] Name: LAINE GARCIA Rep #: [id number] : 1955 M 69 From: Tiffanie Olson MD PCP: Dr. Dante Gurrola MD Status: ADM I N Study:Abdomen/Pelvis W IV Cont ONLY Date of E xam: 08/07/24 Exam# [id number] Ordering Dr: Keren Avendano DO PROCEDURE: ABDOMEN/PELVIS W IV CONT ONLY 08/07/2024 REASON FOR EXAM: ABDOMINAL DISTENTION TECHNIQUE: Abdomen and pelvis CT with intravenous contrast. Coronal and Sagittal reconstruction series were provided. PATIENT PREPARATION: Per protocol ORAL CONTRAST TYPE: None. AMOUNT: mL CONTRAST: Omnipaque 350 VOLUME: 100 mL Not Provided Gauge IV One or more dose reduction techniques were used (e.g., Automated exposure control, adjustment of the mA and/or kV according to patient size, use of iterative reconstruction technique. COMPARISON: CT abdomen and pelvis 08/06/2019 FINDINGS: Lung bases: Small-moderate bilateral pleural effusions with atelectasis. Liver: Homogeneous attenuation. Scattered simple cysts. Gallbladder: No ductal dilation. Status post cholecystectomy. Spleen: Normal size. Pancreas: Normal size without evidence of mass surrounding inflammation or ductal dilation. Adrenals: Unremarkable. Kidneys: Normal renal sizes. No hydronephrosis. Bilateral cortical and parapelvic cysts. No calculior hydronephrosis. Bladder: Unremarkable. Reproductive Organs: No pelvic mass. Bowel: Interval placement gastro duodenal stent. Feeding tube is also new sinceprior. There is gastric pylorus and proximal duodenal wall thickening. No pneumoperitoneum. No bowel dilation. Moderate colonic stool. Appendix: Normal appendix. Lymph nodes: No suspicious lymph node enlargement. Vasculature: Mild diffuse atherosclerotic calcifications are noted. Peritoneum / Retroperitoneum: No pneumoperitoneum. No ascites. Bones: Degenerative changes of the spine. CT/Abdomen/Pelvis W IV Cont ONLY IMPRESSION: Interval placement gastroduodenal stent, since prior. No pneumoperitoneum. Otherwise, no acute findings in the abdomen and pelvis. Reading [facility] CC: Dr. Dante Gurrola MD; Betito Avendano, DO ~ Acidizer Water Well: Signed [facility]05-05-[address] [facility] Medical Records Department [address] [place] [address] Anesthesia Postop Eval II 08/07/24 1857 MR#: [id number] Acct: [id number] Name: LANIE GARCIA Rep #:[id number] : 1955 69 From: Artemio Winchester MD PCP: Dr. Dante Gurrola MD Status:ADM I N Y Race: C Location: [place] [address] Anesthesia Postop Eval I Sum Postop Eval Completion status Anesthesia document: Postop Eval 1 completed: Yes Anesthesia Postop Eval I Summary Anesthesia Postop Eval I Summary: Anesthesia Postop Eval I: Assessment Summary Airway patent Yes 08/07/24 18:57 Spontaneous unlabored Yes 08/07/24 18:57 respirations Mental status Awake 08/07/24 18:57 nausea No 08/07/24 18:57 Vomiting No 08/07/24 18:57 Anesthesia Postop Eval I: Fluid Summary Crystalloid volume administer 1,000 08/07/24 18:57 (ml) Colloids volume administered ( ml) Blood Product volume administered (ml) Total IV fluid infused 1,000 08/07/24 18:57 Anesthesia Postop Eval I: Summary Notes Anesthesia Complication No 08/07/24 18:57 Anesthesia Complication Comment: Post-operative progress note The patient's 08/07/24 18:57 abdomen was distended upon completion of the procedure, and extremely hard with almost no ability to push the belly in. We obtained an abdominal x-ray which showed a distended abdomen. An NG was placed by Dr. Avendano which allowed the belly to be less distended. Throughout this, the patient's vitals remained stable, although for ease of the patient, 2 mg versed and 100 mcg fentanyl were given. The patient is stable for discharge to the CT scanner, and will be accepted by the floor upon completion. The patient is stable for discharge from PACU at this time . General surgery was consulted by Dr. Avendano during this time. Anesthesia remains available for any intervention needed. Anesthesia: Postop Eval II Evaluation Mental status: Awake Pain Level: 3 nausea: No Vomiting: No Progress Note Post-operative progress note: The patient's abdomen was distended upon completion of the procedure,and extremely hard with almost no ability to push the belly in. We obtained an abdominal x-ray which showed a distended abdomen. An NG was placed by Dr. Avendano which allowed the belly to be less distended. Throughout this, the patient's vitals remained stable, although for ease of the patient, 2 mgversed and 100 mcg fentanyl were given. The patient is stable for discharge to the CT scanner, and will be accepted by the floor upon completion. The patient is stable for discharge from PACU at thistime. General surgery was consulted by Dr. Avendano during this time. Anesthesia remains available for any intervention needed. The patient will be going to the CT scanner at this time. Complications Anesthesia Complication: No 08/07/24 1858 > Date _ Artemio Winchester MD Cosigner Signature: Date CC: ~ Signed [facility]05-05-[address] [facility] Medical Records Department [address] [place] [address] Anesthesia Postop Eval I 08/07/241852 MR#: [id number] Acct: [id number] Name: LAINE GARCIA Rep #:[id number] : 1955 69 From: Artemio Winchester MD PCP: Dr. Dante Gurrola MD Status:ADM I N Y Race: C Location: [place] [address] Anesthesia: Postop Eval I Current Vital Signs Temperature: 99.6 F Pulse Rate: 86 Blood Pressure: 141/93 Respiratory Rate: 18 Pulse Ox: 92 Oxygen Delivery Method: Nasal Cannula Oxygen Flow Rate (L/min): 6 Assessment Airway patent: Yes Spontaneous unlabored respirations: Yes Mental status: Awake nausea: No Vomiting: No Anesthesia Complication: No Fluid Hydration Crystalloid volume administer (ml): 1,000 Total IV fluid infused: 1,000 Progress Note Post-operative progress note: The patient's abdomen was distended upon completion of the procedure,and extremely hard with almost no ability to push the belly in. We obtained an abdominal x-ray which showed a distended abdomen. An NG was placed by Dr. Avendano which allowed the belly to be less distended. Throughout this, the patient's vitals remained stable, although for ease of the patient, 2 mgversed and 100 mcg fentanyl were given. The patient is stable for discharge to the CT scanner, and will be accepted by the floor upon completion. The patient is stable for discharge from PACU at thistime. General surgery was consulted by Dr. Avendano during this time. Anesthesia remains available for any intervention needed. Anesthesia document: Postop Eval 1 completed: Yes 08/07/241856 MD> Date _ Artemio Winchester MD Cosigner Signature: Date CC: ~ Signed [facility]05-05-2025 Radiology Diagnostic study note [facility] Imaging Services [address] [place] [address] Abdomen Single View MR#: [id number] Acct: [id number] Name: LAINE GARCIA Rep #: [id number] : 1955 M 69 From: Katia Burrell MD PCP: Dr. Dante Gurrola MD Status: ADM I N Study:Abdomen Single View Date of Exam: 08/07/24 Exam# [id number] Ordering Dr: Keren Avendano DO PROCEDURE: ABDOMEN SINGLE VIEW 08/07/2024 REASON FOR EXAM: NG PLACEMENT. TECHNIQUE: Single view abdomen. COMPARISON: Earlier KUB dated 08/07/2024. FINDINGS: Bowel gas: Diffuse gas throughout the large and small bowel. Calcifications: Unremarkable. Bones: Spondylosis. Other: Nasogastric tube has been inserted, tip coiled in the body of the stomach. Wall stent is again noted projecting over the right hemiabdomen. RAD/Abdomen Single View IMPRESSION: Interval insertion of a nasogastric tube, tip projecting over the body of the stomach. Bowel-gas pattern unchanged. Reading Location: [facility] CC: Dr. Dante Gurrola MD; Betito Avendano DO ~ Acidizer Water Well: Signed [facility]05-05-[address] [facility] Medical Records Department [address] [place] [address] EGD Report MR#: [id number] Acct: [id number] Name: LAINE GARCIA Rep #:[id number] : 1955 69 From: Betito Avendano DO PCP: Dr. Dante Gurrola MD Status:ADM I N Patient Name: Laine Garcia Procedure Date: 08/07/2024 4:37 PM Date of : 1955 Age: 69 Procedure: Upper GI endoscopy Indications: Epigastric abdominal pain, Active gastrointestinal bleeding Providers: Betito Avendano DO Medicines: Monitored Anesthesia Care Patient Profile: This is a 69 year old male. Refer to note in patient chart for documentation of history and physical. Patient has symptoms of acute epigastric abdominal pain. Complications: No immediate complications. Procedure: Pre-Anesthesia Assessment: - Prior to the procedure, a History and Physical was performed, and patient medications and allergies were reviewed. The patient is competent. The risks and benefits of the procedure and the sedation options and risks were discussed with the patient. All questions were answered and informed consent was obtained. Patient identification and proposed procedure were verified by the physician in the pre-procedure area. Mental Status Examination: alert and oriented. Airway Examination: normal oropharyngeal airway and neck mobility. Respiratory Examination: clear to auscultation. CV Examination: normal. Prophylactic Antibiotics: The patient does not require prophylactic antibiotics. Prior Anticoagulants: The patient has taken no anticoagulant or antiplatelet agents. ASA Grade Assessment: III - A patient with severe systemic disease. After reviewing the risks and benefits, the patient was deemed in satisfactory condition to undergo the procedure. The anesthesia plan was to use monitored anesthesia care (MAC). Immediately prior to administration of medications, the patient was re-assessed for adequacy to receive sedatives. The heart rate, respiratory rate, oxygen saturations, blood pressure, adequacy of pulmonary ventilation, and response to care were monitored throughout the procedure. The physical status of the patient was re-assessed after the procedure. After obtaining informed consent, the endoscope was passed under direct vision. Throughout the procedure, the patient's blood pressure, pulse, and oxygen saturations were monitored continuously. The Endoscope was introduced through the mouth, and advanced to the third part of the duodenum. Small bowel enteroscopy was deemed necessary. The upper GI endoscopy was accomplished without difficulty. The patient tolerated the procedure well. Scope In: 5:11:04 PM Scope Out: 5:53:14 PM Total Procedure Duration Time 0 hours 42 minutes 10 seconds Findings: The examined esophagus was normal. The entire examined stomach was normal. Many oozing cratered duodenal ulcers with a visible vessel were found in the duodenal bulb and in the first portion of the duodenum. The largest lesion was 30 mm in largest dimension. Area was successfully injected with 10 mL of a 0.1 mg/mL solution of epinephrine for drug delivery. Coagulation for hemostasis using argon plasma at 0.7 liters/minute and 20 river was successful. Estimated blood loss was minimal. This was stented with a 22 mm x 9 cm WallFlex stent under fluoroscopic guidance. Estimated blood loss was minimal. For hemostasis, five hemostatic clips were successfully placed. Clip conservation coordinator: [place]. There was no bleeding at the end of the procedure. Biopsies were taken with a cold forceps for histology. Verification of patient identification for the specimen was done. Estimated blood loss was minimal. Impression: - Normal esophagus. - Normal stomach. - Oozing duodenal ulcers with a visible vessel. Injected. Treated with argon plasma coagulation (APC). Prosthesis placed. Clips were placed. Clip conservation coordinator: [place]. - No specimens collected. Recommendation: - Return patient to ICU for ongoing care. - NPO. - Continue present medications. - Await pathology results. Procedure Code(s): --- Professional --- 46190, Small intestinal endoscopy, enteroscopy beyond second portion of duodenum, not including ileum; with transendoscopic stent placement (includes predilation) 88201, 59, Small intestinal endoscopy, enteroscopy beyond second portion of duodenum, not including ileum; with control of bleeding (eg, injection, bipolar cautery, unipolar cautery, laser, heater probe, stapler, plasma executive kitchen manager) 32284, 51, Small intestinal endoscopy, enteroscopy beyond second portion of duodenum, not including ileum; with biopsy, single or multiple 45545, 26, Intraluminal dilation of strictures and/or obstructions (eg, esophagus), radiological supervision and interpretation 93989, Unlisted procedure, small intestine CPT copyright 2021 [employer]. All rights reserved. The codes documented in this report are preliminary and upon label coder review may be revised to meet current compliance requirements. Betito Avendano DO 08/07/2024 6:49:08 PM This report has been signed electronically. Number of Addenda: 0 Note Initiated On: 08/07/2024 4:37 PM 08/07/24 1849 Date _ Betito Avendano DO Cosigner Signature: Date (if indicated) CC: Dr. Dante Gurrola MD; Betito Avendano DO ~ Date Dictated: 08/07/24 1637 Date Transcribed: Acidizer Water Well: RF Signed [facility]05-05-2025 Radiology Diagnostic study note [facility] Imaging Services [address] [place] [address] Abdomen Single View (Portable) MR#: [id number] Acct: [id number] Name: LAINE GARCIA Rep #: [id number] : 1955 M 69 From: Katia Burrell MD PCP: Dr. Dante Gurrola MD Status: ADM I N Study:Abdomen Single View (Portable) Date of Exam: 08/07/24 Exam# [id number] Ordering Dr: Keren Avendano DO PROCEDURE: ABDOMEN SINGLE VIEW (PORTABLE) 08/07/2024 REASON FOR EXAM: ABDOMINAL DISTENTION. POST EGD. TECHNIQUE: Single view abdomen. COMPARISON: CT ABDOMEN AND PELVIS DATED 08/05/2024. FINDINGS: Bowel gas: Large amount of gas throughout the large and small bowel. Calcifications: Unremarkable. Bones: Spondylosis. Other: A semiopaque wall stent projects over the right upper quadrant. This maybe related to previous TIPS procedure. RAD/Abdomen Single View (Portable) IMPRESSION: Bowel-gas pattern suggests severe adynamic/reflex ileus. Suspicion of previous TIPS procedure. Reading Location: [facility] CC: Dr. Dante Gurrola MD; Betito Avendano DO ~ Acidizer Water Well: Signed [facility]05-05-2025 Progress note Author Betito Avendano [facility] Note Date/Time August 07, 2024 4:41pm [facility] Medical Records Department [address] [place] [address] Progress Note 08/07/24 1639 MR#: [id number] Acct: [id number] Name: LAINE GARCIA Rep #:[id number] : 1955 69 From: Betito Avendano DO PCP: Dr. Dante Gurrola MD Status:ADM I N Location: [place] [address] Progress Note The patient is for an upper endoscopy today. He received transfusion of 3 unitsof packed red blood cells for hemoglobin of 6.1. Physical Exam Const alert, oriented x3 and average body habitus Resp normal respiratory effort, normal air movement and clear to auscultation bilaterally Cardio regular rate, regular rhythm, no murmurs and diaphoretic Assessment & Plan Assessment/Plan (1) Duodenal ulcer: (2) Abdominal pain: (3) Orthostatic hypotension: PLAN: Plan 69-year-old gentleman who presented with 2 episodes of abdominal pain and discovered to have large duodenal ulcer with active GI bleeding. He underwent endoscopic evaluation and treatment of the large duodenal ulcer. His hemoglobindecreased back down 3 units. He was transfused 2 units of packed red blood cells overnight and restarted back on PPI drip. He will undergo EGD with possible duodenal stent placement today due to large ulcer and partial gastric outlet obstruction to hopefully avoid surgery. He was explained alternatives, benefits, risk include not withstanding bleeding, infection, sepsis, perforation, need for emergent or to . They will have an ASA of 3. Visit Charges Inpatient E&M: 59981 Subs Hosp L3 08/07/24 1641 <Electronically signed by Betito Avendano DO> Betito Avendano DO Cosigner Signature (if applicable): CC: ~ Signed [facility] Work Phone: 1(486) 409-356005-05-2025 Consult note Author Artemio Winchester [facility] Note Date/Time August 07, 2024 3:56pm [facility] Medical Records Department [address] [place] [address] Pre-Anesthesia Evaluation 08/07/24 1553 MR#: [id number] Acct: [id number] Name: LAINE GARCIA Rep #:[id number] : 1955 69 From: Artemio Winchester MD PCP: Dr. Dante Gurrola MD Status:ADM I N Y Race: C Location: [place] [address] ASA Classification* ASA Classification ASA Classification: 2 Assessment & Plan Anesthesia* Anesthesia Assessment Anesthesia Assessment: Discussed sedation and/or anesthesia options, risks, benefits, and alternatives with patient/parents/legal guardian/POA. Questions invited. The patient/parents/legal guardian/POA seems to understand and agrees to proceedwith anesthesia plan. Reviewed the physical assessment, medical history, allergy history and patient home medications list prior to surgery/procedure/anesthetic and documented any changes. Performed airway and anesthesia risk assessments. Anesthesia Type Anesthesia Type: General History Source History Obtained from:: Patient and Chart Anesthesia Focused Assessment* Temperature: 98 F Pulse Rate: 78 Blood Pressure: 124/70 Respiratory Rate: 16 Pulse Ox: 96 Oxygen Delivery Method: Room Air Airway Assessment Mouth opens: >3 cm Mallampati Score: II Teeth Condition: Intact and Missing (front top) Neck Range of motion (ROM): Full ROM Focused Labs Anesthesia Preop lab: CBC WBC 14.6 K/mm3 (4.4-11.0) H 08/07/24 08: 5 RBC 3.43 M/mm3 (4.6-6.2) L 08/07/24 08:22 08/07/24 Hgb 10.3 g/dL (13.0-16.5) L 08/07/24 08: 5 Hct 30.2 % (40-54) L 08/07/24 08:22 08/07/24 Plt Count 214 K/mm3 (150-450) 08/07/24 08:22 08/07/24 CHEMISTRY Potassium 3.3 mmol/L (3.3-5.1) 08/07/24 08:22 08/07/24 Sodium 138 mmol/L (133-145) 08/07/24 08:22 08/07/24 Magnesium 2.1 mg/dL (1.6-2.6) 01/22/20 14:45 01/22/20 BUN 18 mg/dL (4-19) 08/07/24 08:22 08/07/24 Creatinine 0.68 mg/dL (0.70-1.20) L 08/07/24 08:22 Glucose 142 mg/dL (70-99) H 08/07/24 08:22 08/07/24 COAG PT 16.0 SECONDS (11.7-14.9) H 08/07/24 12:26 05/08/27 Pre-Assessment Diagnosis/Proposed Procedure Planned Operative Procedure(s): EGD Anesthesia History Anesthesia History - inspector packager: Anesthesia History - inspector packager Hx Hospitalization No 01/22/20 12:15 Any Problems With Anesthesia No 08/05/24 16:52 Cholinesterase deficiency No 08/05/24 16:52 You/Your Family Experience No 08/05/24 16:52 fever (hyperthermia) with Relationship Recent Exposure to Contagious No 08/05/24 16:52 Disease Does patient have nerve No 08/05/24 16:52 stimulator Patient instructed to have device shut off --Does patient have Pacemaker No 08/07/24 14:14 or ICD? When Was Last Pacemaker Check QUESTION #4 FULL TEXT: You/Your Family Experience fever (hyperthermia) with Anesthesia Last Oral Intake Last Oral intake: Last Oral Intake NPO since 00:00 08/07/24 14:14 Meds taken in AM with sips of water? Meds patient instructed to take am of surgery PONV PONV - inspector packager: PONV - inspector packager Female HX of Motion Sickness HX of N/V After Surgery Non-Smoker Duration of Surgery greater than 60 minutes Number of Risk Factors PONV Score Height & Weight Height & Weight: Anesthesia: Height & Weight Height 5 ft 10 in 08/07/24 15:16 Weight: 77 kg 08/07/24 15:16 Body Mass Index (BMI) 24.0 08/07/24 14:14 Respiratory Assessment Respiratory Assessment - inspector packager: Respiratory Tract Infection Hx - inspector packager Hx Respiratory Tract Infection No 08/05/24 16:52 STOP Sleep Apnea STOP Sleep Apnea - inspector packager: STOP Sleep Apnea - inspector packager Hx Hypertension No 08/05/24 16:27 Hx Sleep Apnea No 08/05/24 16:27 CPAP BIPAP Do you snore loudly (louder No 08/05/24 16:27 than talking or can be heard Do you often feel tired/ No 08/05/24 16:27 fatigued/ sleepy during daytime? Has anyone observed you stop No 08/05/24 16:27 breathing during sleep? STOP Results Negative 08/05/24 18:35 QUESTION #5 FULL TEXT : Do you snore loudly (louder than talking or can be heard through closed doors)? Tobacco Use History Tobacco Use History - inspector packager: Tobacco Use History - inspector packager Tobacco Use Smoking Status Never smoker 08/05/24 16:27 Hx Tobacco Use No 08/05/24 16:27 Years Smoking Packs Smoked per Day Smoking Cessation Date was within the last 15 years Hx Smoking Cessation Date Hx Smoking Cessation Counseling Hematologic Medial History Hematologic Hx - inspector packager: Hematologic Medical Hx - financial planning analyst Hx of Blood Transfusion No 08/05/24 16:27 Hx of Transfusion in last 3 No 08/05/24 16:27 Months Date of Last Transfusion (if within last 3 months) Ever experience any problems No 08/05/24 16:27 with transfusion(s)? Specify any problems Hx of Preganancy in last 3 N/A 08/05/24 16:27 Months Nurse Filling Out Transfusion JDIAL 08/05/24 16:27 & Questions: Date: 08/05/24 08/05/24 16:27 Time: 16:31 08/05/24 16:27 Patient unable to answer at this time (ie. confused, unrespo /Reproduction History /Reproductive History - inspector packager: /Reproductive Hx- inspector packager Hx Now No 08/05/24 16:52 Gestational Age (in weeks): EDC: Hx Hx Para Hx Section SAB No 08/05/24 16:52 Active Medications Active Medications: Current Medications Generic Name Dose Route Start Last Admin Trade Name Freq PRN Reason Stop Dose Admin Acetaminophen 650 mg 08/07/24 03:52 Acetaminophen 325 Mg Tablet PO Q4H PRN PRN Fever, pain 1-10 Ciprofloxacin 400 mg in 200 mls @ 200 mls/hr 08/05/24 22:00 08/07/24 11:13 Cipro IV Infused Q12 MARSHA Infusion Metronidazole 500 mg in 100 mls @ 100 mls/hr 08/05/24 22:00 08/07/24 14:48 Flagyl IV Infused Q8 MARSHA Infusion Pantoprazole Sodium 80 mg/ 100 mls @ 10 mls/hr 08/06/24 20:10 08/07/24 15:32 Sodium Chloride CONT INF 0 mls/hr Q10H MARSHA Infusion Ondansetron HCl 4 mg 08/05/24 22:10 08/05/24 22:38 Ondansetron 4 Mg/2 Ml Vial IV 4 mg Q6H PRN PRN Administration nausea,emesis Oxycodone HCl 5 mg 08/05/24 22:10 08/07/24 09:39 Oxycodone 5 Mg Tablet PO 5 mg Q4H PRN PRN Administration pain 4-10 Prochlorperazine Edisylate 5 mg 08/05/24 22:10 Prochlorperazine 10 Mg/2 Ml Vial IV Q4H PRN PRN Nausea/Vomiting, 2nd line Sodium Chloride 10 - 40 ml 08/05/24 16:33 0.9% Saline Lock 10 Ml Syringe IV UD PRN SALINE FLUSH PFSH Medical History History of DVT (deep vein thrombosis) Mitral valve prolapse Home Medications ?Medication ?Instructions ?Recorded ?Last Taken ?Type aspirin 81 mg chewable tablet 81 mg PO DAILY heart hea lth 01/22/20 08/05/24 History multivitamin 1 tab PO DAILY supplement 08/05/24 History omega-3 fatty acids 1,000 mg 2,000 mg PO BID supplemen t 01/22/20 08/05/24 History capsule turmeric 450 mg-turmeric root 1 cap PO DAILY supplemen t 01/22/20 08/05/24 History extract 50 mg capsule polyethylene glycol 3350 17 17 g PO DAILY PRN laxative effect 08/05/24 08/02/24 History gram/dose oral powder (ClearLax) psyllium husk 0.4 gram capsule 0.8 g PO BID 08/05/24 0 08/05/24 History (Daily Fiber) Allergy/AdvReac Type Severity Reaction Status Date / Time Penicillins AdvReac PT UNABLE Verified 08/05/24 13:12 TO RESPOND-NEEDS F/U Family History Father Myocardial infarction Mother CVA (cerebral vascular accident) Surgical History H/O shoulder surgery History of repair of hiatal hernia Social History Smoking Status: Never smoker alcohol intake: never Review of Systems (Anesthesia) ROS Narrative System reviewed and no additional complaints, except as documented. Physical Exam Const alert, oriented x3 and average body habitus Resp normal respiratory effort, normal air movement and clear to auscultation bilaterally Cardio regular rate, regular rhythm, no murmurs and diaphoretic 08/07/24 1556 <Electronically signed by Artemio Winchester MD> Date _ Artemio Winchester MD Cosigner Signature: Date CC: ~ Signed [facility] Work Phone: 1(656) 654-215705-05-2025 Progress note [facility] Medical Records Department [address] [place] [address] Progress Note 08/07/24 1639 MR#: [id number] Acct: [id number] Name: LAINE GARCIA Rep #:[id number] : 1955 69 From: Betito Avendano DO PCP: Dr. Dante Gurrola MD Status:ADM I N Location: [place] [address] Progress Note The patient is for an upper endoscopy today. He received transfusion of 3 unitsof packed red blood cells for hemoglobin of 6.1. Physical Exam Const alert, oriented x3 and average body habitus Resp normal respiratory effort, normal air movement and clear to auscultation bilaterally Cardio regular rate, regular rhythm, no murmurs and diaphoretic Assessment & Plan Assessment/Plan (1) Duodenal ulcer: (2) Abdominal pain: (3) Orthostatic hypotension: PLAN: Plan 69-year-old gentleman who presented with 2 episodes of abdominal pain and discovered to have large duodenal ulcer with active GI bleeding. He underwent endoscopic evaluation and treatment of the large duodenal ulcer. His hemoglobindecreased back down 3 units. He was transfused 2 units of packed red blood cells overnight and restarted back on PPI drip. He will undergo EGD with possible duodenal stent placement today due to large ulcer and partial gastric outlet obstruction to hopefully avoid surgery. He was explained alternatives, benefits, risk include not withstanding bleeding, infection, sepsis, perforation, need for emergent or to . They will have an ASA of 3. Visit Charges Inpatient E&M: 17393 Subs Hosp L3 08/07/24 1641 Betito Friend DO Cosigner Signature (if applicable): CC: ~ Signed [facility]05-05-[address] [facility] Medical Records Department [address] [place] [address] Pre-Anesthesia Evaluation 08/07/24 1553 MR#: [id number] Acct: [id number] Name: LAINE GARCIA Rep #:[id number] : 1955 69 From: Artemio Winchester MD PCP: Dr. Dante Gurrola MD Status:ADM I N Y Race: C Location: [place] [address] ASA Classification* ASA Classification ASA Classification: 2 Assessment & Plan Anesthesia* Anesthesia Assessment Anesthesia Assessment: Discussed sedation and/or anesthesia options, risks, benefits, and alternatives with patient/parents/legal guardian/POA. Questions invited. The patient/parents/legal guardian/POA seems to understand and agrees to proceedwith anesthesia plan. Reviewed the physical assessment, medical history, allergy history and patient home medications list prior to surgery/procedure/anesthetic and documented any changes. Performed airway and anesthesia risk assessments. Anesthesia Type Anesthesia Type: General History Source History Obtained from:: Patient and Chart Anesthesia Focused Assessment* Temperature: 98 F Pulse Rate: 78 Blood Pressure: 124/70 Respiratory Rate: 16 Pulse Ox: 96 Oxygen Delivery Method: Room Air Airway Assessment Mouth opens: >3 cm Mallampati Score: II Teeth Condition: Intact and Missing (front top) Neck Range of motion (ROM): Full ROM Focused Labs Anesthesia Preop lab: CBC WBC 14.6 K/mm3 (4.4-11.0) H 08/07/24 08:22 5 RBC 3.43 M/mm3 (4.6-6.2) L 08/07/24 08:22 08/07/24 Hgb 10.3 g/dL (13.0-16.5) L 08/07/24 08: 5 Hct 30.2 % (40-54) L 08/07/24 08:22 08/07/24 Plt Count 214 K/mm3 (150-450) 08/07/24 08:22 08/07/24 CHEMISTRY Potassium 3.3 mmol/L (3.3-5.1) 08/07/24 08:22 08/07/24 Sodium 138 mmol/L (133-145) 08/07/24 08:22 08/07/24 Magnesium 2.1 mg/dL (1.6-2.6) 01/22/20 14:45 01/22/20 BUN 18 mg/dL (4-19) 08/07/24 08:08/07/24 Creatinine 0.68 mg/dL (0.70-1.20) L 08/07/24 08:22 Glucose 142 mg/dL (70-99) H 08/07/24 08:22 08/07/24 COAG PT 16.0 SECONDS (11.7-14.9) H 08/07/24 12:26 0508/27 Pre-Assessment Diagnosis/Proposed Procedure Planned Operative Procedure(s): EGD Anesthesia History Anesthesia History - inspector packager: Anesthesia History - inspector packager Hx Hospitalization No 01/22/20 12:15 Any Problems With Anesthesia No 08/05/24 16:52 Cholinesterase deficiency No 08/05/24 16:52 You/Your Family Experience No 08/05/24 16:52 fever (hyperthermia) with Relationship Recent Exposure to Contagious No 08/05/24 16:52 Disease Does patient have nerve No 08/05/24 16:52 stimulator Patient instructed to have device shut off --Does patient have Pacemaker No 08/07/24 14:14 or ICD? When Was Last Pacemaker Check QUESTION #4 FULL TEXT: You/Your Family Experience fever (hyperthermia) with Anesthesia Last Oral Intake Last Oral intake: Last Oral Intake NPO since 00:00 08/07/24 14:14 Meds taken in AM with sips of water? Meds patient instructed to take am of surgery PONV PONV - inspector packager: PONV - inspector packager Female HX of Motion Sickness HX of N/V After Surgery Non-Smoker Duration of Surgery greater than 60 minutes Number of Risk Factors PONV Score Height & Weight Height & Weight: Anesthesia: Height & Weight Height 5 ft 10 in 08/07/24 15:16 Weight: 77 kg 08/07/24 15:16 Body Mass Index (BMI) 24.0 08/07/24 14:14 Respiratory Assessment Respiratory Assessment - inspector packager: Respiratory Tract Infection Hx - inspector packager Hx Respiratory Tract Infection No 08/05/24 16:52 STOP Sleep Apnea STOP Sleep Apnea - inspector packager: STOP Sleep Apnea - inspector packager Hx Hypertension No 08/05/24 16:27 Hx Sleep Apnea No 08/05/24 16:27 CPAP BIPAP Do you snore loudly (louder No 08/05/24 16:27 than talking or can be heard Do you often feel tired/ No 08/05/24 16:27 fatigued/ sleepy during daytime? Has anyone observed you stop No 08/05/24 16:27 breathing during sleep? STOP Results Negative 08/05/24 18:35 QUESTION #5 FULL TEXT : Do you snore loudly (louder than talking or can be heard through closeddoors)? Tobacco Use History Tobacco Use History - inspector packager: Tobacco Use History - inspector packager Tobacco Use Smoking Status Never smoker 08/05/24 16:27 Hx Tobacco Use No 08/05/24 16:27 Years Smoking Packs Smoked per Day Smoking Cessation Date was within the last 15 years Hx Smoking Cessation Date Hx Smoking Cessation Counseling Hematologic Medial History Hematologic Hx - inspector packager: Hematologic Medical Hx - financial planning analyst Hx of Blood Transfusion No 08/05/24 16:27 Hx of Transfusion in last 3 No 08/05/24 16:27 Months Date of Last Transfusion (if within last 3 months) Ever experience any problems No 08/05/24 16:27 with transfusion(s)? Specify any problems Hx of Preganancy in last 3 N/A 08/05/24 16:27 Months Nurse Filling Out Transfusion JDIAL 08/05/24 16:27 & Questions: Date: 08/05/24 08/05/24 16:27 Time: 16:31 08/05/24 16:27 Patient unable to answer at this time (ie. confused, unrespo /Reproduction History /Reproductive History - inspector packager: /Reproductive Hx- inspector packager Hx Now No 08/05/24 16:52 Gestational Age (in weeks): EDC: Hx Hx Para Hx Section SAB No 08/05/24 16:52 Active Medications Active Medications: Current Medications Generic Name Dose Route Start Last Admin Trade Name Freq PRN Reason Stop Dose Admin Acetaminophen 650 mg 08/07/24 03:52 Acetaminophen 325 Mg Tablet PO Q4H PRN PRN Fever, pain 1-10 Ciprofloxacin 400 mg in 200 mls @ 200 mls/hr 08/05/24 22:00 08/07/24 11:13 Cipro IV Infused Q12 MARSHA Infusion Metronidazole 500 mg in 100 mls @ 100 mls/hr 08/05/24 22:00 08/07/24 14:48 Flagyl IV Infused Q8 MARSHA Infusion Pantoprazole Sodium 80 mg/ 100 mls @ 10 mls/hr 08/06/24 20:10 08/07/24 15:32 Sodium Chloride CONT INF 0 mls/hr Q10H [facility] Infusion Ondansetron HCl 4 mg 08/05/24 22:10 08/05/24 22:38 Ondansetron 4 Mg/2 Ml Vial IV 4 mg Q6H PRN PRN Administration nausea,emesis Oxycodone HCl 5 mg 08/05/24 22:10 08/07/24 09:39 Oxycodone 5 Mg Tablet PO 5 mg Q4H PRN PRN Administration pain 4-10 Prochlorperazine Edisylate 5 mg 08/05/24 22:10 Prochlorperazine 10 Mg/2 Ml Vial IV Q4H PRN PRN Nausea/Vomiting, 2nd line Sodium Chloride 10 - 40 ml 08/05/24 16:33 0.9% Saline Lock 10 Ml Syringe IV UD [facility]N [facility] History History of DVT (deep vein thrombosis) Mitral valve prolapse Home Medications ?Medication ?Instructions ?Recorded ?Last Taken ?Type aspirin 81 mg chewable tablet 81 mg PO DAILY heart hea lth 01/22/20 08/05/24 History multivitamin 1 tab PO DAILY supplement 08/05/24 History omega-3 fatty acids 1,000 mg 2,000 mg PO BID supplemen t 01/22/20 08/05/24 History capsule turmeric 450 mg-turmeric root 1 cap PO DAILY supplemen t 01/22/20 08/05/24 History extract 50 mg capsule polyethylene glycol 3350 17 17 g PO DAILY PRN laxative effect 08/05/24 08/02/24 History gram/dose oral powder (ClearLax) psyllium husk 0.4 gram capsule 0.8 g PO BID 08/05/24 0 08/05/24 History (Daily Fiber) Allergy/AdvReac Type Severity Reaction Status Date / Time Penicillins AdvReac PT UNABLE Verified 08/05/24 13:12 TO RESPOND-NEEDS F/U Family History Father Myocardial infarction Mother CVA (cerebral vascular accident) Surgical History H/O shoulder surgery History of repair of hiatal hernia Social History Smoking Status: Never smoker alcohol intake: never Review of Systems (Anesthesia) ROS Narrative System reviewed and no additional complaints, except as documented. Physical Exam Const alert, oriented x3 and average body habitus Resp normal respiratory effort, normal air movement and clear to auscultation bilaterally Cardio regular rate, regular rhythm, no murmurs and diaphoretic 08/07/24 1556 > Date _ Artemio Winchester MD Cosigner Signature: Date CC: ~ Signed [facility]05-04-2025 Progress note Author Melonie Odell [facility] Note Date/Time August 06, 2024 12:59p [facility] Medical Records Department [address] [place] [address] Progress Note 08/06/24 1246 MR#: [id number] Acct: [id number] Name: LAINE GARCIA Rep #:[id number] : 1955 69 From: Melonie Odell MD PCP: OMID GalavizC Status:AD M IN Location: MS3 [id number] Subjective Subjective Patient seen and examined this morning. He had no active complaints at time of my review though later in the morning patient complained of feeling weak. He was admitted with a complaint of syncope and maroon-colored stools. He had alsobeen having epigastric pain for several months prior to admission which was worsening. He had emergent EGD yesterday which showed bleeding peptic ulcer. Blood pressure down to 92/57 this morning. Review of systems otherwise negative. His was by his bedside. Objective Data Objective Data Vital Signs: Vital Signs Temp Pulse Resp BP Pulse Ox O2 Del Method 97.8 F 64 17 92/57 L 97 Room Air 08/06/24 12:38 08/06/24 12:38 08/06/24 12:38 08/06/24 12:38 08/06/24 12:38 08/06/24 12:38 Oxygen Delivery Method Room Air Weight: 171 lb 8.314 oz Body Mass Index (BMI) 24.0 Intake & Output: Intake and Output for Last 24 Hours 08/04/24 08/05/24 08/06/24 23:59 23:59 23:59 Intake Total 1999 1787.75 / 1787.75 Output Total 300 / 300 Balance 1999 1487.75 / 1487.75 Lab / Micro Data 08/06/24 04:18 08/06/24 04:18 Labs: Laboratory Results - last 24 hr 08/05/24 12:40: WBC 12.1 H, RBC 2.95 L, Hgb 8.9 L, Hct 26.8 L, MCV 90.8, MCH 30.2, MCHC 33.2, RDW Std Deviation 47.8 H, RDW Coeff of Edna 14.4, Plt Count 281,MPV 9.7, Immature Gran % (Auto) 0.700, Neut % (Auto) 89.3 H, Lymph % (Auto) 6.3 L, [place]ou % (Auto) 3.2, Eos % (Auto) 0.2, Baso % (Auto) 0.3, Absolute Neuts (auto)10.8 H, Absolute Lymphs (auto) 0.76 L, Nucleated RBC % 0, Sodium 138, Potassium 4.1, Chloride 107, Carbon Dioxide 23.8, Anion Gap 7, BUN 48 H, Creatinine 0.76, Estim Creat Clear Calc 91.51, Est GFR (MDRD) Non-Af 97, BUN/Creatinine Ratio 62.8 H, Glucose 180 H, Calcium 8.3 08/05/24 14:26: Urine Color Yellow, Urine Clarity Clear, Urine pH 5.0, Ur Specific Santa Claus 1.020, Urine Protein 15 H, Urine Glucose (UA) Normal, Urine Ketones 5 H, Urine Occult Blood Negative, Urine Nitrite Negative, Urine Bilirubin Negative, Urine Urobilinogen Normal, Ur Leukocyte Esterase Negative, Urine RBC 0-5 SEEN, Urine WBC 0-5 SEEN, Ur Squamous Epith Cells 0 SEEN, Urine Bacteria RARE, Urine Mucus 0 SEEN 08/05/24 20:45: Hgb 8.1 L, Hct 24.6 L 08/06/24 04:18: WBC 15.3 H, RBC 2.46 L, Hgb 7.4 L, Hct 22.1 L, MCV 89.8, MCH 30.1, MCHC 33.5, RDW Std Deviation 48.1 H, RDW Coeff of Edna 14.6, Plt Count 221,MPV 9.6, Immature Gran % (Auto) 0.700, Neut % (Auto) 91.7 H, Lymph % (Auto) 3.2 L, [place] % (Auto) 4.3, Eos % (Auto) 0.0, Baso % (Auto) 0.1, Absolute Neuts (auto)14.0 H, Absolute Lymphs (auto) 0.49 L, Nucleated RBC % 0, Differential Comment SCANNED, Sodium 140, Potassium 3.4, Chloride 110 H, Carbon Dioxide 20.9 L, AnionGap 9, BUN 28 H, Creatinine 0.67 L, Estim Creat Clear Calc 88.72, Est GFR (MDRD)Non-Af 101, BUN/Creatinine Ratio 42.7 H, Glucose 137 H, Calcium 7.5 L Radiography Diagnostic Testing: Radiology Impression Abdomen/Pelvis CT 08/05/24 13:21 IMPRESSION: 1. Punctate gas within the proximal duodenum with mild duodenal thickening, which is nonspecific and may represent duodenitis or non perforated duodenal ulcer. 2. Otherwise unremarkable CT abdomen pelvis. Reading Location: [facility] Physical Exam Const alert, oriented x3 and no apparent distress General Appearance: cooperative HEENT normocephalic, head/scalp atraumatic, moist oral mucous membranes, oropharynx normal and gingiva normal Eyes PERRL and EOMs intact bilaterally Neck no lymphadenopathy and supple Lymph Lymphatic: no lymphadenopathy noted and no lymphedema noted Resp normal respiratory effort, normal air movement and clear to auscultation bilaterally Cardio regular rate, regular rhythm, S1 normal heart sound, S2 normal heart sound and no murmurs GI normal to inspection, nondistended, normoactive bowel sounds, soft to palpation,non-tender and non-distended Extremity normal capillary refill, no clubbing, cyanosis or edema and no calf tenderness General Extremity: no tenderness to palpation of joints or extremities Skin General Skin Exam: no breakdown Neuro CN's II-XII intact bilaterally, no focal motor deficits and no sensory deficits noted Motor Exam: strength 5/5 throughout and general weakness Psych thought process normal and cooperative Appearance: appropriate Assessment & Plan Assessment/Plan (1) Duodenal ulcer: (2) Abdominal pain: (3) Orthostatic hypotension: PLAN: Plan #Acute on chronic anemia due to acute bleeding peptic ulcer * Patient admitted with complaint of abdominal pain and maroon-colored stools as well as syncope. He had EGD yesterday which showed normal esophagus and no gross lesions in the entire stomach and showed spurting duodenal ulcers with a visible vessel which was injected and treated with argon plasma coagulation and a nonbleeding duodenal ulcer with no stigmata of bleeding which was also treated with argon plasma coagulation * Currently on IV pantoprazole 40 mg twice daily. No NSAIDs. * Clear liquids for now. * Gastroenterology on board * no nsaids or anticoagulatns * # Hypotension * Patient complained of feeling weak this afternoon and blood pressure was in the 90s systolic. Give a bolus of IV fluid normal saline 1 L x 1 and continue hydration with normal saline 150 cc/h x 2 bags. * For precautions. * #Leukocytosis: * WBCs 15.3. No evidence of infection. * Urinalysis showed no evidence of infection. * May be reactive due to the GI bleed. * Will monitor for now. * DVT prophylaxis: SCDs. No anticoagulation in light of GI bleed. Charges/Coding Visit Charges Inpatient E&M: 68333 Subs Hosp L2 08/06/24 1259 <Electronically signed by Melonie Odell MD> Melonie Odell MD Cosigner Signature (if applicable): CC: ~ Signed [facility] Work Phone: 1(870) 523-780605-04-2025 Progress note [facility] Medical Records Department [address] [place] [address] Progress Note 08/06/24 1246 MR#: [id number] Acct: [id number] Name: LAINE GARCIA Rep #:[id number] : 1955 69 From: Melonie Odell MD PCP: NERI Galaviz Status:AD M IN [facility] Subjective Subjective Patient seen and examined this morning. He had no active complaints at time of my review though later in the morning patient complained of feeling weak. He was admitted with a complaint of syncope and maroon-colored stools. He had alsobeen having epigastric pain for several months prior to admission which was worsening. He had emergent EGD yesterday which showed bleeding peptic ulcer. Blood pressure down to 92/57 this morning. Review of systems otherwise negative. His was by his bedside. Objective Data Objective Data Vital Signs: Vital Signs Temp Pulse Resp BP Pulse Ox O2 Del Method 97.8 F 64 17 92/57 L 97 Room Air 08/06/24 12:38 08/06/24 12:38 08/06/24 12:38 08/06/24 12:38 08/06/24 12:38 08/06/24 12:38 Oxygen Delivery Method Room Air Weight: 171 lb 8.314 oz Body Mass Index (BMI) 24.0 Intake & Output: Intake and Output for Last 24 Hours 08/04/24 08/05/24 08/06/24 23:59 23:59 23:59 Intake Total 1999 1787.75 / 1787.75 Output Total 300 / 300 Balance 1999 1487.75 / 1487.75 Lab / Micro Data 08/06/24 04:18 08/06/24 04:18 Labs: Laboratory Results - last 24 hr 08/05/24 12:40: WBC 12.1 H, RBC 2.95 L, Hgb 8.9 L, Hct 26.8 L, MCV 90.8, MCH 30.2, MCHC 33.2, RDW Std Deviation 47.8 H, RDW Coeff of Edna 14.4, Plt Count 281,MPV 9.7, Immature Gran % (Auto) 0.700, Neut % (Auto) 89.3 H, Lymph % (Auto) 6.3 L, [place] % (Auto) 3.2, Eos % (Auto) 0.2, Baso % (Auto) 0.3, Absolute Neuts (auto)10.8 H, Absolute Lymphs (auto) 0.76 L, Nucleated RBC % 0, Sodium 138, Potassium 4.1, Chloride 107, Carbon Dioxide 23.8, Anion Gap 7, BUN 48 H, Creatinine 0.76, Estim Creat Clear Calc91.51, Est GFR (MDRD) Non-Af 97, BUN/Creatinine Ratio 62.8 H, Glucose 180 H, Calcium 8.3 08/05/24 14:26: Urine Color Yellow, Urine Clarity Clear, Urine pH 5.0, Ur Specific Santa Claus 1.020, Urine Protein 15 H, Urine Glucose (UA) Normal, Urine Ketones 5 H, Urine Occult Blood Negative, Urine Nitrite Negative, Urine Bilirubin Negative, Urine Urobilinogen Normal, Ur Leukocyte Esterase Negative, Urine RBC 0-5 SEEN, Urine WBC 0-5 SEEN, Ur Squamous Epith Cells 0 SEEN, Urine Bacteria RARE, Urine Mucus 0 SEEN 08/05/24 20:45: Hgb 8.1 L, Hct 24.6 L 08/06/24 04:18: WBC 15.3 H, RBC 2.46 L, Hgb 7.4 L, Hct 22.1 L, MCV 89.8, MCH 30.1, MCHC 33.5, RDW Std Deviation 48.1 H, RDW Coeff of Edna 14.6, Plt Count 221,MPV 9.6, Immature Gran % (Auto) 0.700, Neut % (Auto) 91.7 H, Lymph % (Auto) 3.2 L, [place] % (Auto) 4.3, Eos % (Auto) 0.0, Baso % (Auto) 0.1, Absolute Neuts (auto)14.0 H, Absolute Lymphs (auto) 0.49 L, Nucleated RBC % 0, Differential Comment SCANNED, Sodium 140, Potassium 3.4, Chloride 110 H, Carbon Dioxide 20.9 L, AnionGap 9, BUN 28 H, Creatinine 0.67 L, Estim Creat Clear Calc 88.72, Est GFR (MDRD)Non-Af 101, BUN/Creatinine Ratio 42.7 H, Glucose 137 H, Calcium 7.5 L Radiography Diagnostic Testing: Radiology Impression Abdomen/Pelvis CT 08/05/24 13:21 IMPRESSION: 1. Punctate gas within the proximal duodenum with mild duodenal thickening, which is nonspecific and may represent duodenitis or non perforated duodenal ulcer. 2. Otherwise unremarkable CT abdomen pelvis. Reading Location: [facility] Physical Exam Const alert, oriented x3 and no apparent distress General Appearance: cooperative HEENT normocephalic, head/scalp atraumatic, moist oral mucous membranes, oropharynx normal and gingiva normal Eyes PERRL and EOMs intact bilaterally Neck no lymphadenopathy and supple Lymph Lymphatic: no lymphadenopathy noted and no lymphedema noted Resp normal respiratory effort, normal air movement and clear to auscultation bilaterally Cardio regular rate, regular rhythm, S1 normal heart sound, S2 normal heart sound and no murmurs GI normal to inspection, nondistended, normoactive bowel sounds, soft to palpation,non-tender and non-distended Extremity normal capillary refill, no clubbing, cyanosis or edema and no calf tenderness General Extremity: no tenderness to palpation of joints or extremities Skin General Skin Exam: no breakdown Neuro CN's II-XII intact bilaterally, no focal motor deficits and no sensory deficits noted Motor Exam: strength 5/5 throughout and general weakness Psych thought process normal and cooperative Appearance: appropriate Assessment & Plan Assessment/Plan (1) Duodenal ulcer: (2) Abdominal pain: (3) Orthostatic hypotension: PLAN: Plan #Acute on chronic anemia due to acute bleeding peptic ulcer * Patient admitted with complaint of abdominal pain and maroon-colored stools as well as syncope. He had EGD yesterday which showed normal esophagus and no gross lesions in the entire stomach and showed spurting duodenal ulcers with a visible vessel which was injected and treated with argon plasma coagulation and a nonbleeding duodenal ulcer with no stigmata of bleeding which was also treated with argon plasma coagulation * Currently on IV pantoprazole 40 mg twice daily. No NSAIDs. * Clear liquids for now. * Gastroenterology on board * no nsaids or anticoagulatns * # Hypotension * Patient complained of feeling weak this afternoon and blood pressure was in the 90s systolic. Give a bolus of IV fluid normal saline 1 L x 1 and continue hydration with normal saline 150 cc/h x 2 bags. * For precautions. * #Leukocytosis: * WBCs 15.3. No evidence of infection. * Urinalysis showed no evidence of infection. * May be reactive due to the GI bleed. * Will monitor for now. * DVT prophylaxis: SCDs. No anticoagulation in light of GI bleed. Charges/Coding Visit Charges Inpatient E&M: 05103 Subs Hosp L2 08/06/24 1259 Melonie Odell MD Cosigner Signature (if applicable): CC: ~ Signed [facility]05-03-2025 Consult note Author Naun ramana [facility] Note Date/Time August 05, 2024 6:46pm [facility] Medical Records Department [address] [place] [address] Anesthesia Postop Eval II 08/05/24 1846 MR#: [id number] Acct: [id number] Name: LAINE GARCIA Ned Rep #:[id number] : 1955 69 From: Naun Murrell MD PCP: NERI Galaviz Status:AD M IN Y Race: C Location: [place] [address] Anesthesia Postop Eval I Sum Postop Eval Completion status Anesthesia document: Postop Eval 1 completed: Yes Anesthesia Postop Eval I Summary Anesthesia Postop Eval I Summary: Anesthesia Postop Eval I: Assessment Summary Airway patent Yes 08/05/24 18:45 Spontaneous unlabored Yes 08/05/24 18:45 respirations Mental status Awake 08/05/24 18:45 nausea No 08/05/24 18:45 Vomiting No 08/05/24 18:45 Anesthesia Postop Eval I: Fluid Summary Crystalloid volume administer 1,000 08/05/24 18:45 (ml) Colloids volume administered ( ml) Blood Product volume administered (ml) Total IV fluid infused 1,000 08/05/24 18:45 Anesthesia Postop Eval I: Summary Notes Anesthesia Complication No 08/05/24 18:45 Anesthesia Complication Comment: Post-operative progress note Anesthesia: Postop Eval II Evaluation Mental status: Awake Pain Level: 0 nausea: No Vomiting: No 08/05/241845 <Electronically signed by Naun Murrell MD > Date _ Naun Murrell MD Cosigner Signature: Date CC: ~ Signed [facility] Work Phone: [phone]) 726-618805-03-2025 Consult note Author Naun [facility] Note Date/Time August 05, 2024 6:45pm [facility] Medical Records Department [address] [place] [address] Anesthesia Postop Eval I 08/05/241844 MR#: [id number] Acct: [id number] Name: LAINE GARCIA Rep #:[id number] : 1955 69 From: Naun Murrell MD PCP: Rachana Birmingham, WORD PROCESSING OPERATOR-C Status:AD M IN Y Race: C Location: [place] [address] Anesthesia: Postop Eval I Current Vital Signs Temperature: 97.9 F Pulse Rate: 72 Blood Pressure: 144/84 Respiratory Rate: 16 Pulse Ox: 96 Oxygen Delivery Method: Room Air Assessment Airway patent: Yes Spontaneous unlabored respirations: Yes Mental status: Awake nausea: No Vomiting: No Anesthesia Complication: No Fluid Hydration Crystalloid volume administer (ml): 1,000 Total IV fluid infused: 1,000 Progress Note Anesthesia document: Postop Eval 1 completed: Yes 08/05/241844 <Electronically signed by Naun Murrell MD > Date _ Naun Ely Signature: Date CC: ~ Signed [facility] Work Phone: [phone]) [phone] Consult note Author Betito Friend [facility] Note Date/Time August 05, 2024 5:38pm [facility] Medical Records Department [address] [place] [address] Consultation - GI 08/05/24 1732 MR#: [id number] Acct: [id number] Name: LAINE GARCIA Rep #:[id number] : 1955 69 From: Betito Avendano DO PCP: Rachana Birmingham NP-C Status:AD M IN [place] [facility] HPI Consult Data Date of Consult: 08/05/24 HPI Narrative Reason for Consultation: GI bleed HPI Narrative: LAINE GARCIA, is a 69 M who presents 69-year-old male states he has been having problems with abdominal pain for the last few months. This morning, he started having abdominal pain again. It feltmore like cramping. 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 His states he looked pale all morning. He denies any chest pain or shortness of breath, but states that he was walking up his lawn, when he felt weak in the knees and collapsed. He was trying to get some home remedy to help with his abdominal cramping. 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 He was ordered by EMS that he had passed out twice within 5 minutes of each other for a very brief period of time. Patient states his abdominal cramping is improving, but he feels mildly weak. He had a visit to the ER for severe abdominal pain on 05.06.24, had an abd/pelvisCT that showed significant stool and gas burden without signs of obstruction. Hereports reduced appetite, abdominal bloating and sharp cramping when constipation is the most severe. He reports his last colonoscopy was in 2015 with a 10 year recall. His repeat today CT/Abdomen/Pelvis W IV Cont ONLY IMPRESSION: 1. Punctate gas within the proximal duodenum with mild duodenal thickening, which is nonspecific and may represent duodenitis or non perforated duodenal ulcer. [facility] Medical History History of DVT (deep vein thrombosis) Mitral valve prolapse Home Medications ?Medication ?Instructions ?Recorded ?Last Taken ?Type aspirin 81 mg chewable tablet 81 mg PO DAILY heart hea lth 01/22/20 08/05/24 History multivitamin 1 tab PO DAILY supplement 08/05/24 History omega-3 fatty acids 1,000 mg 2,000 mg PO BID supplemen t 01/22/20 08/05/24 History capsule turmeric 450 mg-turmeric root 1 cap PO DAILY supplemen t 01/22/20 08/05/24 History extract 50 mg capsule polyethylene glycol 3350 17 17 g PO DAILY PRN laxative effect 08/05/24 08/02/24 History gram/dose oral powder (ClearLax) psyllium husk 0.4 gram capsule 0.8 g PO BID 08/05/24 0 08/05/24 History (Daily Fiber) Allergy/AdvReac Type Severity Reaction Status Date / Time Penicillins AdvReac PT UNABLE Verified 08/05/24 13:12 TO RESPOND-NEEDS F/U Family History Father Myocardial infarction Mother CVA (cerebral vascular accident) Surgical History H/O shoulder surgery History of repair of hiatal hernia Social History Smoking Status: Never smoker alcohol intake: never ROS Constitutional Constitutional: Denies chills, fatigue, fever(s) or malaise Eyes Eyes: Denies blurry vision ENT HEENT: Denies headache(s) or nasal discharge Cardiovascular Cardiovascular: Reports syncope; Denies chest pain or dyspnea on exertion Respiratory/Chest Respiratory/Chest: Denies cough, shortness of breath at rest or shortness of breath with exertion Gastrointestinal Gastrointestinal: Reports abdominal pain and melena; Denies constipation, diarrhea, nausea or vomiting Genitourinary Genitourinary: Denies dysuria Neurologic Neurologic: Denies focal weakness, numbness or tremor(s) Psychiatric Psychiatric: Denies anxiety or depression Physical Exam Const alert, oriented x3, no apparent distress and healthy appearing General Appearance: cooperative GI normal to inspection, nondistended, normoactive bowel sounds, soft to palpation,non-tender and non-distended Percussion: normal to percussion Rectal Exam: deferred Lab / Micro Data 08/05/24 12:40 08/05/24 12:40 Labs: Laboratory Results - last 24 hr 08/05/24 12:40: WBC 12.1 H, RBC 2.95 L, Hgb 8.9 L, Hct 26.8 L, MCV 90.8, MCH 30.2, MCHC 33.2, RDW Std Deviation 47.8 H, RDW Coeff of Edna 14.4, Plt Count 281,MPV 9.7, Immature Gran % (Auto) 0.700, Neut % (Auto) 89.3 H, Lymph % (Auto) 6.3 L, [place] % (Auto) 3.2, Eos % (Auto) 0.2, Baso % (Auto) 0.3, Absolute Neuts (auto)10.8 H, Absolute Lymphs (auto) 0.76 L, Nucleated RBC % 0, Sodium 138, Potassium 4.1, Chloride 107, Carbon Dioxide 23.8, Anion Gap 7, BUN 48 H, Creatinine 0.76, Estim Creat Clear Calc 91.51, Est GFR (MDRD) Non-Af 97, BUN/Creatinine Ratio 62.8 H, Glucose 180 H, Calcium 8.3 08/05/24 14:26: Urine Color Yellow, Urine Clarity Clear, Urine pH 5.0, Ur Specific Santa Claus 1.020, Urine Protein 15 H, Urine Glucose (UA) Normal, Urine Ketones 5 H, Urine Occult Blood Negative, Urine Nitrite Negative, Urine Bilirubin Negative, Urine Urobilinogen Normal, Ur Leukocyte Esterase Negative, Urine RBC 0-5 SEEN, Urine WBC 0-5 SEEN, Ur Squamous Epith Cells 0 SEEN, Urine Bacteria RARE, Urine Mucus 0 SEEN Imaging Radiology Impression Abdomen/Pelvis CT 08/05/24 13:21 IMPRESSION: 1. Punctate gas within the proximal duodenum with mild duodenal thickening, which is nonspecific and may represent duodenitis or non perforated duodenal ulcer. 2. Otherwise unremarkable CT abdomen pelvis. Reading Location: [id number] Assessment & Plan Assessment/Plan (1) Duodenal ulcer: PLAN: Plan 69-year-old gentleman with no significant past medical history on turmeric and aspirin who presented to the ER back in May 2024 with abdominal pain and itonly showed constipation. He was seen in the GI clinic on 07/25/2024 for abdominal pain and constipation. He comes in today with again worsening abdominal pain and now orthostatic with syncope and CT scan abdomen pelvis showssome air in the wall of the duodenum with inflammation around the D1 segment of the duodenum. Suspecting duodenal ulcer. He should undergo emergent EGD. He was explained alternatives, risk and benefits close, standing bleeding, fracture, subs, perforation, need for surgery . He will have an ASA of 3. Charges/Coding Visit Charges Inpatient E&M: 04403 Init Hosp L3 08/05/24 1738 <Electronically signed by Betito Avendano DO> Cosigner Signature (if applicable): CC: WORD PROCESSING OPERATOR-C Rachana Birmingham~ Signed [facility] Work Phone: [phone]) 814-669905-03-2025 Consult note Author Naun ramana [facility] Note Date/Time August 05, 2024 5:30pm [facility] Medical Records Department [address] [place] [address] Pre-Anesthesia Evaluation 08/05/24 1730 MR#: [id number] Acct: [id number] Name: JOSELAINE Ned Rep #:[id number] : 1955 69 From: Naun Murrell MD PCP: Rachana Birmingham, WORD PROCESSING OPERATOR-C Status:AD M IN Y Race: C [facility] -1 ASA Classification* ASA Classification ASA Classification: 2 and E Assessment & Plan Anesthesia* Anesthesia Assessment Anesthesia Assessment: Discussed sedation and/or anesthesia options, risks, benefits, and alternatives with patient/parents/legal guardian/POA. Questions invited. The patient/parents/legal guardian/POA seems to understand and agrees to proceedwith anesthesia plan. Reviewed the physical assessment, medical history, allergy history and patient home medications list prior to surgery/procedure/anesthetic and documented any changes. Performed airway and anesthesia risk assessments. Anesthesia Type Anesthesia Type: MAC Anesthesia Focused Assessment* Temperature: 98.2 F Pulse Rate: 59 Blood Pressure: 127/93 Respiratory Rate: 16 Pulse Ox: 100 Airway Assessment Mouth opens: >3 cm Mallampati Score: II Focused Labs Anesthesia Preop lab: CBC WBC 12.1 K/mm3 (4.4-11.0) H 08/05/24 12:40 5 RBC 2.95 M/mm3 (4.6-6.2) L 08/05/24 12:40 08/05/24 Hgb 8.9 g/dL (13.0-16.5) L 08/05/24 12:40 08/05/24 Hct 26.8 % (40-54) L 08/05/24 12:40 08/05/24 Plt Count 281 K/mm3 (150-450) 08/05/24 12:40 08/05/24 CHEMISTRY Potassium 4.1 mmol/L (3.3-5.1) 08/05/24 12:40 08/05/24 Sodium 138 mmol/L (133-145) 08/05/24 12:40 08/05/24 Magnesium 2.1 mg/dL (1.6-2.6) 01/22/20 14:45 01/22/20 BUN 48 mg/dL (4-19) H 08/05/24 12:40 08/05/24 Creatinine 0.76 mg/dL (0.70-1.20) 08/05/24 12:40 08/05/24 Glucose 180 mg/dL (70-99) H 08/05/24 12:40 08/05/24 COAG Pre-Assessment Diagnosis/Proposed Procedure Planned Operative Procedure(s): EGD Anesthesia History Anesthesia History - inspector packager: Anesthesia History - inspector packager Hx Hospitalization No 01/22/20 12:15 Any Problems With Anesthesia No 08/05/24 16:52 Cholinesterase deficiency No 08/05/24 16:52 You/Your Family Experience No 08/05/24 16:52 fever (hyperthermia) with Relationship Recent Exposure to Contagious No 08/05/24 16:52 Disease Does patient have nerve No 08/05/24 16:52 stimulator Patient instructed to have device shut off --Does patient have Pacemaker No 08/05/24 16:56 or ICD? When Was Last Pacemaker Check QUESTION #4 FULL TEXT: You/Your Family Experience fever (hyperthermia) with Anesthesia Last Oral Intake Last Oral intake: Last Oral Intake NPO since 16:30 08/05/24 16:56 Meds taken in AM with sips of water? Meds patient instructed to take am of surgery PONV PONV - inspector packager: PONV - inspector packager Female HX of Motion Sickness HX of N/V After Surgery Non-Smoker Duration of Surgery greater than 60 minutes Number of Risk Factors PONV Score Height & Weight Height & Weight: Anesthesia: Height & Weight Height 5 ft 10.87 in 08/05/24 16:56 Weight: 77.8 kg 08/05/24 16:56 Body Mass Index (BMI) 24.0 08/05/24 16:56 Respiratory Assessment Respiratory Assessment - inspector packager: Respiratory Tract Infection Hx - inspector packager Hx Respiratory Tract Infection No 08/05/24 16:52 STOP Sleep Apnea STOP Sleep Apnea - inspector packager: STOP Sleep Apnea - inspector packager Hx Hypertension No 08/05/24 16:27 Hx Sleep Apnea No 08/05/24 16:27 CPAP BIPAP Do you snore loudly (louder No 08/05/24 16:27 than talking or can be heard Do you often feel tired/ No 08/05/24 16:27 fatigued/ sleepy during daytime? Has anyone observed you stop No 08/05/24 16:27 breathing during sleep? STOP Results Negative 08/05/24 16:27 QUESTION #5 FULL TEXT : Do you snore loudly (louder than talking or can be heard through closed doors)? Tobacco Use History Tobacco Use History - inspector packager: Tobacco Use History - inspector packager Tobacco Use Smoking Status Never smoker 08/05/24 16:27 Hx Tobacco Use No 08/05/24 16:27 Years Smoking Packs Smoked per Day Smoking Cessation Date was within the last 15 years Hx Smoking Cessation Date Hx Smoking Cessation Counseling Hematologic Medial History Hematologic Hx - inspector packager: Hematologic Medical Hx - financial planning analyst Hx of Blood Transfusion No 08/05/24 16:27 Hx of Transfusion in last 3 No 08/05/24 16:27 Months Date of Last Transfusion (if within last 3 months) Ever experience any problems No 08/05/24 16:27 with transfusion(s)? Specify any problems Hx of Preganancy in last 3 N/A 08/05/24 16:27 Months Nurse Filling Out Transfusion JDIAL 08/05/24 16:27 & Questions: Date: 08/05/24 08/05/24 16:27 Time: 16:31 08/05/24 16:27 Patient unable to answer at this time (ie. confused, unrespo /Reproduction History /Reproductive History - inspector packager: /Reproductive Hx- inspector packager Hx Now No 08/05/24 16:52 Gestational Age (in weeks): EDC: Hx Hx Para Hx Section SAB No 08/05/24 16:52 Active Medications Active Medications: Current Medications Generic Name Dose Route Start Last Admin Trade Name Freq PRN Reason Stop Dose Admin Pantoprazole Sodium 80 mg/ 100 mls @ 10 mls/hr 08/05/24 15:30 08/05/24 15:52 Sodium Chloride CONT INF 10 mls/hr Q10H MARSHA Administration Sodium Chloride 1,000 mls @ 75 mls/hr 08/05/24 16:19 IV .[id number] MARSHA Sodium Chloride 10 - 40 ml 08/05/24 16:33 0.9% Saline Lock 10 Ml Syringe IV UD PRN SALINE FLUSH PFSH Medical History History of DVT (deep vein thrombosis) Mitral valve prolapse Home Medications ?Medication ?Instructions ?Recorded ?Last Taken ?Type aspirin 81 mg chewable tablet 81 mg PO DAILY heart hea lth 01/22/20 08/05/24 History multivitamin 1 tab PO DAILY supplement 08/05/24 History omega-3 fatty acids 1,000 mg 2,000 mg PO BID supplemen t 01/22/20 08/05/24 History capsule turmeric 450 mg-turmeric root 1 cap PO DAILY supplemen t 01/22/20 08/05/24 History extract 50 mg capsule polyethylene glycol 3350 17 17 g PO DAILY PRN laxative effect 08/05/24 08/02/24 History gram/dose oral powder (ClearLax) psyllium husk 0.4 gram capsule 0.8 g PO BID 08/05/24 0 08/05/24 History (Daily Fiber) Allergy/AdvReac Type Severity Reaction Status Date / Time Penicillins AdvReac PT UNABLE Verified 08/05/24 13:12 TO RESPOND-NEEDS F/U Family History Father Myocardial infarction Mother CVA (cerebral vascular accident) Surgical History H/O shoulder surgery History of repair of hiatal hernia Social History Smoking Status: Never smoker alcohol intake: never Review of Systems (Anesthesia) ROS Narrative System reviewed and no additional complaints, except as documented. 08/05/24 1730 <Electronically signed by Naun Murrell MD > Date _ Naun Murrell MD Cosign Signature: Date CC: ~ Signed [facility] Work Phone: 1(809) 168-468005-03-[address] [facility] Medical Records Department [address] [place] [id number] Anesthesia Postop Eval II 08/05/24 1846 MR#: [id number] Acct: [id number] Name: LAINE GARCIA Rep #:[id number] : 1955 69 From: Naun Murrell MD PCP: Rachana Birmingham WORD PROCESSING OPERATOR-C Status:AD M IN Y Race: C [place] [facility] [id number] Anesthesia Postop Eval I Sum Postop Eval Completion status Anesthesia document: Postop Eval 1 completed: Yes Anesthesia Postop Eval I Summary Anesthesia Postop Eval I Summary: Anesthesia Postop Eval I: Assessment Summary Airway patent Yes 08/05/24 18:45 Spontaneous unlabored Yes 08/05/24 18:45 respirations Mental status Awake 08/05/24 18:45 nausea No 08/05/24 18:45 Vomiting No 08/05/24 18:45 Anesthesia Postop Eval I: Fluid Summary Crystalloid volume administer 1,000 08/05/24 18:45 (ml) Colloids volume administered ( ml) Blood Product volume administered (ml) Total IV fluid infused 1,000 08/05/24 18:45 Anesthesia Postop Eval I: Summary Notes Anesthesia Complication No 08/05/24 18:45 Anesthesia Complication Comment: Post-operative progress note Anesthesia: Postop Eval II Evaluation Mental status: Awake Pain Level: 0 nausea: No Vomiting: No 08/05/246 > Date _ [facility]rell [facility] Signature: Date CC: ~ Signed [facility]05-03-[address] [facility] Medical Records Department [address] [place] [address] Anesthesia Postop Eval I 08/05/241844 MR#: [id number] Acct: [id number] Name: LAINE GARCIA Rep #:[id number] : 1955 69 From: Naun Murrell MD PCP: Rachana Birmingham, WORD PROCESSING OPERATOR-C Status:AD M IN Y Race: C Location: [place] [id number] -[id number] Anesthesia: Postop Eval I Current Vital Signs Temperature: 97.9 F Pulse Rate: 72 Blood Pressure: 144/84 Respiratory Rate: 16 Pulse Ox: 96 Oxygen Delivery Method: Room Air Assessment Airway patent: Yes Spontaneous unlabored respirations: Yes Mental status: Awake nausea: No Vomiting: No Anesthesia Complication: No Fluid Hydration Crystalloid volume administer (ml): 1,000 Total IV fluid infused: 1,000 Progress Note Anesthesia document: Postop Eval 1 completed: Yes 08/05/24 1845 > Date _ Naun Ely Signature: Date CC: ~ Signed [facility]05-03-[address] [facility] Medical Records Department [address] [place] [address] EGD Report MR#: [id number] Acct: [id number] Name: LAINE GARCIA Rep #:[id number] : 1955 69 From: Betito Avendano DO PCP: OMID GalavizC Status:AD M IN Patient Name: Laine Garcia Procedure Date: 08/05/2024 5:18 PM Date of : 1955 Age: 69 Procedure: Upper GI endoscopy Indications: Epigastric abdominal pain, Melena Providers: Betito Avendano DO Medicines: Monitored Anesthesia Care Patient Profile: This is a 69 year old male. Refer to note in patient chart for documentation of history and physical. Patient has symptoms of acute epigastric abdominal pain. Complications: No immediate complications. Procedure: Pre-Anesthesia Assessment: - Prior to the procedure, a History and Physical was performed, and patient medications and allergies were reviewed. The patient is competent. The risks and benefits of the procedure and the sedation options and risks were discussed with the patient. All questions were answered and informed consent was obtained. Patient identification and proposed procedure were verified by the physician in the pre-procedure area. Mental Status Examination: alert and oriented. Airway Examination: normal oropharyngeal airway and neck mobility. Respiratory Examination: clear to auscultation. CV Examination: normal. Prophylactic Antibiotics: The patient does not require prophylactic antibiotics. Prior Anticoagulants: The patient has taken no anticoagulant or antiplatelet agents except for NSAID medication. ASA Grade Assessment: II - A patient with mild systemic disease. After reviewing the risks and benefits, the patient was deemed in satisfactory condition to undergo the procedure. The anesthesia plan was to use monitored anesthesia care (MAC). Immediately prior to administration of medications, the patient was re-assessed for adequacy to receive sedatives. The heart rate, respiratory rate, oxygen saturations, blood pressure, adequacy of pulmonary ventilation, and response to care were monitored throughout the procedure. The physical status of the patient was re-assessed after the procedure. After obtaining informed consent, the endoscope was passed under direct vision. Throughout the procedure, the patient's blood pressure, pulse, and oxygen saturations were monitored continuously. The Endoscope was introduced through the mouth, and advanced to the third part of the duodenum. Small bowel enteroscopy was deemed necessary. The upper GI endoscopy was accomplished without difficulty. The patient tolerated the procedure well. Scope In: 5:58:25 PM Scope Out: 6:26:30 PM Total Procedure Duration Time 0 hours 28 minutes 5 seconds Findings: The examined esophagus was normal. No gross lesions were noted in the entire examined stomach. Five spurting cratered duodenal ulcers with a visible vessel were found in the duodenal bulb and in the first portion of the duodenum. The largest lesion was 30 mm in largest dimension. Area was successfully injected with 7 mL of a 0.1 mg/mL solution of epinephrine for drug delivery. Coagulation for hemostasis using argon plasma at 0.8 liters/minute and 50 river was successful. Estimated blood loss was minimal. Two non-bleeding cratered duodenal ulcers with no stigmata of bleeding were found in the second portion of the duodenum. The largest lesion was 20 mm in largest dimension. Coagulation for destruction of remaining portion of lesion using argon plasma at 0.3 liters/minute and 20 river was successful. Coagulation for bleeding prevention using argon plasma at 0.7 liters/minute and 30 river was successful. Estimated blood loss was minimal. Impression: - Normal esophagus. - No gross lesions in the entire stomach. - Spurting duodenal ulcers with a visible vessel. Injected. Treated with argon plasma coagulation (APC). - Non-bleeding duodenal ulcers with no stigmata of bleeding. Treated with argon plasma coagulation (APC). - No specimens collected. Recommendation: - Return patient to [facility] for ongoing care. - NPO except ice chips - Continue present medications. - No NSAIDs - Possible stent placement in the duodenum on 08/07/2024 Procedure Code(s): --- Professional --- 64170, Small intestinal endoscopy, enteroscopy beyond second portion of duodenum, not including ileum; with ablation of tumor(s), polyp(s), or other lesion(s) not amenable to removal by hot biopsy forceps, bipolar cautery or snare technique 49251, 59,51, Small intestinal endoscopy, enteroscopy beyond second portion of duodenum, not including ileum; with control of bleeding (eg, injection, bipolar cautery, unipolar cautery, laser, heater probe, stapler, plasma executive kitchen manager) 87606, Unlisted procedure, small intestine CPT copyright 2021 [employer]. All rights reserved. The codes documented in this report are preliminary and upon label coder review may be revised to meet current compliance requirements. Betito Avendano DO 08/05/2024 6:38:47 PM This report has been signed electronically. Number of Addenda: 0 Note Initiated On: 08/05/2024 5:18 PM 08/05/24 183 Date _ Betito Jacobigndevonte Signature: Date (if indicated) CC: WORD PROCESSING OPERATOR-C Rachana Birmingham; Betito Avendano DO ~ Date Dictated: 08/05/241717 Date Transcribed: Acidizer Water Well: RF Signed [facility]05-03-[address] [facility] Medical Records Department [address] [place] [address] Operative Report - CC Letter MR#: [id number] Acct: [id number] Name: LAINE GARCIA Rep #:[id number] : 1955 69 From: Betito Avendano DO PCP: NERI Galaviz Status:AD M IN 08/05/2024 Rachana Birmingham Underwriting Clerks Supervisor, Underwriting Clerks Supervisor-c Re : Upper GI endoscopy procedure for Laine Garcia Dear [place] This procedure was performed on Monday, August 05, 2024. My impressions and recommendations are as follows: Impressions : - Normal esophagus. - No gross lesions in the entire stomach. - Spurting duodenal ulcers with a visible vessel. Injected. Treated with argon plasma coagulation (APC). - Non-bleeding duodenal ulcers with no stigmata of bleeding. Treated with argon plasma coagulation (APC). - No specimens collected. Recommendations : - Return patient to hospital [facility] for ongoing care. - NPO except ice chips - Continue present medications. - No NSAIDs - Possible stent placement in the duodenum on 08/07/2024 My findings are described in the full procedure note, which is enclosed. If I can be of further assistance, please feel free to contact me at . Sincerely, Betito Avendano DO 08/05/2024 6:38:47 PM This report has been signed electronically. 08/05/241838 Date _ Betito Avendano DO Jhoana Signature: Date (if indicated) CC: TALHA-Eliana Birmingham; Dr. Derrick Yadav MD ~ Date Dictated: 08/05/24 171 Date Transcribed: Acidizer Water Well: RF Signed [facility]05-03-2025 History and physical note Author Derrick Yadav [facility] Note Date/Time August 05, 2024 3:59pm [facility] Medical Records Department [address] [place] [address] H&P Exam - Hospitalist 08/05/24 1543 MR#: [id number] Acct: [id number] Name: LAINE GARCIA Rep #:[id number] : 1955 69 From: Derrick root MD PCP: NERI Galaviz Status:AD M IN Location: [place] [id number] HPI - General General Date of Admission: 08/05/24 HPI Narrative LAINE GARCIA, is a 69 M who presents to the hospital after 2 syncopal episodes at home and an episode of maroon-colored stools. He has been having abdominal discomfort with increasing epigastric pain over the last several months. It feels likely due to constipation. He is currently taking a daily aspirin for what he says are blood clots, he had blood clots in 2016 after surgery for a hiatal hernia and then his doctor told him to continue aspirin after his shoulder surgery repair to prevent further blood clots. CT scan today demonstrates duodenal ulcer with possible free air though is not having any significant abdominal pain at the moment. Hemoglobin did drop from 13.4 on 05/06/2024 to 8.9 today. He is otherwise hemodynamically stable and his vital signs are all stable. [facility] History (Updated 08/05/24 @ 15:[address] Derrick Yadav MD) Mitral valve prolapse History of DVT (deep vein thrombosis) Home Medications ?Medication ?Instructions ?Recorded ?Last Taken ?Type aspirin 81 mg chewable tablet 81 mg PO DAILY heart hea lth 01/22/20 08/05/24 History multivitamin 1 tab PO DAILY supplement 08/05/24 History omega-3 fatty acids 1,000 mg 2,000 mg PO BID supplemen t 01/22/20 08/05/24 History capsule turmeric 450 mg-turmeric root 1 cap PO DAILY supplemen t 01/22/20 08/05/24 History extract 50 mg capsule polyethylene glycol 3350 17 17 g PO DAILY PRN laxative effect 08/05/24 08/02/24 History gram/dose oral powder (ClearLax) psyllium husk 0.4 gram capsule 0.8 g PO BID 08/05/24 0 08/05/24 History (Daily Fiber) Allergy/AdvReac Type Severity Reaction Status Date / Time Penicillins AdvReac PT UNABLE Verified 08/05/24 13:12 TO RESPOND-NEEDS F/U Family History Father Myocardial infarction Mother CVA (cerebral vascular accident) Surgical History H/O shoulder surgery History of repair of hiatal hernia Social History Smoking Status: Never smoker alcohol intake: never ROS Constitutional Constitutional: Denies chills, fatigue, fever(s) or malaise Eyes Eyes: Denies blurry vision ENT HEENT: Denies headache(s) or nasal discharge Cardiovascular Cardiovascular: Reports syncope; Denies chest pain or dyspnea on exertion Respiratory/Chest Respiratory/Chest: Denies cough, shortness of breath at rest or shortness of breath with exertion Gastrointestinal Gastrointestinal: Reports abdominal pain and melena; Denies constipation, diarrhea, nausea or vomiting Genitourinary Genitourinary: Denies dysuria Neurologic Neurologic: Denies focal weakness, numbness or tremor(s) Psychiatric Psychiatric: Denies anxiety or depression Vital Signs Vital Signs Vital Signs: 08/05/24 13:06 08/05/24 13:30 08/05/24 13:37 Temperature 98.8 F Temperature Source Oral Pulse Rate 74 62 Pulse Rate [Lying] 60 Pulse Rate [Sitting (for 1 minute prior to obtaining)] 62 Pulse Rate [Standing (for 1 minute prior to obtaining)] 90 Respiratory Rate 13 14 Blood Pressure 121/70 H Blood Pressure [Lying] 118/73 Blood Pressure [Sitting (for 1 minute prior to obtaining)] 126/69 H Blood Pressure [Standing (for 1 minute prior to obtaining)] 96/61 Blood Pressure Mean 87 Blood Pressure Mean [Lying] 88 Blood Pressure Mean [Sitting (for 1 minute prior to obtaining)] 88 Blood Pressure Mean [Standing (for 1 minute prior to obtaining)] 72 Pulse Ox 99 98 Oxygen Delivery Method Room Air 08/05/24 13:45 08/05/24 14:00 08/05/24 14:15 Temperature Temperature Source Pulse Rate 58 L Pulse Rate [Lying] Pulse Rate [Sitting (for 1 minute prior to obtaining)] Pulse Rate [Standing (for 1 minute prior to obtaining)] Respiratory Rate 12 Blood Pressure 123/84 H 121/75 H Blood Pressure [Lying] Blood Pressure [Sitting (for 1 minute prior to obtaining)] Blood Pressure [Standing (for 1 minute prior to obtaining)] Blood Pressure Mean 96 88 Blood Pressure Mean [Lying] Blood Pressure Mean [Sitting (for 1 minute prior to obtaining)] Blood Pressure Mean [Standing (for 1 minute prior to obtaining)] Pulse Ox 99 Oxygen Delivery Method 08/05/24 14:30 08/05/24 14:45 Temperature Temperature Source Pulse Rate 61 64 Pulse Rate [Lying] Pulse Rate [Sitting (for 1 minute prior to obtaining)] Pulse Rate [Standing (for 1 minute prior to obtaining)] Respiratory Rate 13 13 Blood Pressure 133/77 H 132/79 H Blood Pressure [Lying] Blood Pressure [Sitting (for 1 minute prior to obtaining)] Blood Pressure [Standing (for 1 minute prior to obtaining)] Blood Pressure Mean 94 94 Blood Pressure Mean [Lying] Blood Pressure Mean [Sitting (for 1 minute prior to obtaining)] Blood Pressure Mean [Standing (for 1 minute prior to obtaining)] Pulse Ox 99 100 Oxygen Delivery Method Weight Weight: 179 lb 10.828 oz Body Mass Index (BMI) 25.0 Physical Exam Narrative General: Alert, Oriented x3, Cooperative, No apparent distress HEENT: Atraumatic, PERRLA, EOMI, Normocephalic Oral: Moist Mucosa Neck: Supple, No JVD Lungs: Diminished, Normal air movement, No rhonchi, No wheeze, No rales Cardiovascular: Regular rate, Regular Rhythm, Normal S1, Normal S2, No murmurs Abdomen: Soft, Non Tender, Non-Distended, No Hepato-splenomegaly Extremities: No edema, Capillary Refill Less than 3 Seconds Skin: No rashes, No breakdown Musculoskeletal: No Tenderness to Palpation of Joints or Extremities Neurological: No focal neurological deficits, Motor Exam 5/5 strength throughout, Sensory exam intact to light touch and pain Psych/Mental Status: Normal Affect, Appropriate Results Lab / Micro Data 08/05/24 12:40 08/05/24 12:40 Labs: Laboratory Results - last 24 hr 08/05/24 12:40: WBC 12.1 H, RBC 2.95 L, Hgb 8.9 L, Hct 26.8 L, MCV 90.8, MCH 30.2, MCHC 33.2, RDW Std Deviation 47.8 H, RDW Coeff of Edna 14.4, Plt Count 281,MPV 9.7, Immature Gran % (Auto) 0.700, Neut % (Auto) 89.3 H, Lymph % (Auto) 6.3 L, [place] % (Auto) 3.2, Eos % (Auto) 0.2, Baso % (Auto) 0.3, Absolute Neuts (auto)10.8 H, Absolute Lymphs (auto) 0.76 L, Nucleated RBC % 0, Sodium 138, Potassium 4.1, Chloride 107, Carbon Dioxide 23.8, Anion Gap 7, BUN 48 H, Creatinine 0.76, Estim Creat Clear Calc 91.51, Est GFR (MDRD) Non-Af 97, BUN/Creatinine Ratio 62.8 H, Glucose 180 H, Calcium 8.3 08/05/24 14:26: Urine Color Yellow, Urine Clarity Clear, Urine pH 5.0, Ur Specific Santa Claus 1.020, Urine Protein 15 H, Urine Glucose (UA) Normal, Urine Ketones 5 H, Urine Occult Blood Negative, Urine Nitrite Negative, Urine Bilirubin Negative, Urine Urobilinogen Normal, Ur Leukocyte Esterase Negative, Urine RBC 0-5 SEEN, Urine WBC 0-5 SEEN, Ur Squamous Epith Cells 0 SEEN, Urine Bacteria RARE, Urine Mucus 0 SEEN Imaging Radiology Impression Abdomen/Pelvis CT 08/05/24 13:21 IMPRESSION: 1. Punctate gas within the proximal duodenum with mild duodenal thickening, which is nonspecific and may represent duodenitis or non perforated duodenal ulcer. 2. Otherwise unremarkable CT abdomen pelvis. Reading Location: [facility] Assessment & Plan Assessment/Plan (1) Duodenal ulcer: PLAN: Plan 1. Acute blood loss anemia secondary to an upper GI bleed from a duodenal ulcerresulting in orthostatic hypotension and syncope ? Continue with Protonix drip ? Will consult gastroenterology for EGD ? Continue with clear liquid diet ? Will recheck H&H this evening ? Discontinue aspirin as he will no longer needed since it is not indicated for history of DVT especially when that was provoked by hiatal hernia surgery in 2016 ? Continue with gentle IV fluids DVT: SCDs 55 minutes was spent on direct patient care, including documentation as well as chart review and collaboration with colleagues Charges/Coding Visit Charges Inpatient E&M: 62578 Init Hosp L2 08/05/24 5495 <Electronically signed by Derrick Yadav MD> Cosigner Signature (if applicable): CC: NERI Birmingham; Dr. Derrick Yadav MD~ Signed [facility] Work Phone: 1(369) 987-445405-03-2025 Consult note [facility] Medical Records Department [address] [place] [address] Consultation - GI 08/05/24 1732 MR#: [id number] Acct: [id number] Name: LAINE GARCIA Rep #:[id number] : 1955 69 From: Betito Avendano DO PCP: Rachana Birmingham, WORD PROCESSING OPERATOR-C Status:AD M IN [place] [facility] [place] HPI Consult Data Date of Consult: 08/05/24 HPI Narrative Reason for Consultation: GI bleed HPI Narrative: LAINE GARCIA, is a 69 M who presents 69-year-old male states he has been having problems with abdominal pain for the last few months. This morning, he started having abdominal pain again. It feltmore like cramping. 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 His states he looked pale all morning. He denies any chest pain or shortness of breath, but states that he was walking up his lawn, when he felt weak in the knees and collapsed.He was trying to get some home remedy to help with his abdominal cramping. 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 He was ordered by EMS that he had passed out twice within 5 minutes of each other for a very brief period of time. Patient states his abdominal cramping is improving, but he feels mildly weak. He had a visit to the ER for severe abdominal pain on 05.06.24, had an abd/pelvisCT that showed significant stool and gas burden without signs of obstruction. Hereports reduced appetite, abdominal bloating and sharp cramping when constipation is the most severe. He reports his last colonoscopy was [id number] with a 10 year recall. His repeat today CT/Abdomen/Pelvis W IV Cont ONLY IMPRESSION: 1. Punctate gas within the proximal duodenum with mild duodenal thickening, which is nonspecific and may represent duodenitis or non perforated duodenal ulcer. [facility] Medical History History of DVT (deep vein thrombosis) Mitral valve prolapse Home Medications ?Medication ?Instructions ?Recorded ?Last Taken ?Type aspirin 81 mg chewable tablet 81 mg PO DAILY [facility] 01/22/20 08/05/24 History multivitamin 1 tab PO DAILY supplement 08/05/24 History omega-3 fatty acids 1,000 mg 2,000 mg PO BID supplemen t 01/22/20 08/05/24 History capsule turmeric 450 mg-turmeric root 1 cap PO DAILY supplemen t 01/22/20 08/05/24 History extract 50 mg capsule polyethylene glycol 3350 17 17 g PO DAILY PRN laxative effect 08/05/24 08/02/24 History gram/dose oral powder (ClearLax) psyllium husk 0.4 gram capsule 0.8 g PO BID 08/05/24 0 08/05/24 History (Daily Fiber) Allergy/AdvReac Type Severity Reaction Status Date / Time Penicillins AdvReac PT UNABLE Verified 08/05/24 13:12 TO RESPOND-NEEDS F/U Family History Father Myocardial infarction Mother CVA (cerebral vascular accident) Surgical History H/O shoulder surgery History of repair of hiatal hernia Social History Smoking Status: Never smoker alcohol intake: never ROS Constitutional Constitutional: Denies chills, fatigue, fever(s) or malaise Eyes Eyes: Denies blurry vision ENT HEENT: Denies headache(s) or nasal discharge Cardiovascular Cardiovascular: Reports syncope; Denies chest pain or dyspnea on exertion Respiratory/Chest Respiratory/Chest: Denies cough, shortness of breath at rest or shortness of breath with exertion Gastrointestinal Gastrointestinal: Reports abdominal pain and melena; Denies constipation, diarrhea, nausea or vomiting Genitourinary Genitourinary: Denies dysuria Neurologic Neurologic: Denies focal weakness, numbness or tremor(s) Psychiatric Psychiatric: Denies anxiety or depression Physical Exam Const alert, oriented x3, no apparent distress and healthy appearing General Appearance: cooperative GI normal to inspection, nondistended, normoactive bowel sounds, soft to palpation,non-tender and non-distended Percussion: normal to percussion Rectal Exam: deferred Lab / Micro Data 08/05/24 12:40 08/05/24 12:40 Labs: Laboratory Results - last 24 hr 08/05/24 12:40: WBC 12.1 H, RBC 2.95 L, Hgb 8.9 L, Hct 26.8 L, MCV 90.8, MCH 30.2, MCHC 33.2, RDW Std Deviation 47.8 H, RDW Coeff of Edna 14.4, Plt Count 281,MPV 9.7, Immature Gran % (Auto) 0.700, Neut % (Auto) 89.3 H, Lymph % (Auto) 6.3 L, [place] % (Auto) 3.2, Eos % (Auto) 0.2, Baso % (Auto) 0.3, Absolute Neuts (auto)10.8 H, Absolute Lymphs (auto) 0.76 L, Nucleated RBC % 0, Sodium 138, Potassium 4.1, Chloride 107, Carbon Dioxide 23.8, Anion Gap 7, BUN 48 H, Creatinine 0.76, Estim Creat Clear Calc91.51, Est GFR (MDRD) Non-Af 97, BUN/Creatinine Ratio 62.8 H, Glucose 180 H, Calcium 8.3 08/05/24 14:26: Urine Color Yellow, Urine Clarity Clear, Urine pH 5.0, Ur Specific Santa Claus 1.020, Urine Protein 15 H, Urine Glucose (UA) Normal, Urine Ketones 5 H, Urine Occult Blood Negative, Urine Nitrite Negative, Urine Bilirubin Negative, Urine Urobilinogen Normal, Ur Leukocyte Esterase Negative, Urine RBC 0-5 SEEN, Urine WBC 0-5 SEEN, Ur Squamous Epith Cells 0 SEEN, Urine Bacteria RARE, Urine Mucus 0 SEEN Imaging Radiology Impression Abdomen/Pelvis CT 08/05/24 13:21 IMPRESSION: 1. Punctate gas within the proximal duodenum with mild duodenal thickening, which is nonspecific and may represent duodenitis or non perforated duodenal ulcer. 2. Otherwise unremarkable CT abdomen pelvis. Reading Location: [id number] Assessment & Plan Assessment/Plan (1) Duodenal ulcer: PLAN: Plan 69-year-old gentleman with no significant past medical history on turmeric and aspirin who presented to the ER back in May 2024 with abdominal pain and itonly showed constipation. He was seen int GI clinic on 07/25/2024 for abdominal pain and constipation. He comes in today with again worsening abdominal pain and now orthostatic with syncope and CT scan abdomen pelvis showssome air in the wall of the duodenum with inflammation around the D1 segment of the duodenum. Suspecting duodenal ulcer. He should undergo emergent EGD. He was explained alternatives, risk and benefits close, standing bleeding, fracture, subs, perforation, need for surgery . He will have an ASA of 3. Charges/Coding Visit Charges Inpatient E&M: 59241 Init Hosp L3 08/05/24 1738 Cosigner Signature (if applicable): CC: WORD PROCESSING OPERATOR-C Rachana Birmingham~ Signed [facility]05-03-[address] [facility] Medical Records Department [address] [place] [address] Pre-Anesthesia Evaluation 08/05/24 1730 MR#: [id number] Acct: [id number] Name: LAINE GARCIA Rep #:[id number] : 1955 69 From: Naun Murrell MD PCP: NERI Galaviz Status:AD M IN Y Race: C [place] [facility] [id number] -[id number] ASA Classification* ASA Classification ASA Classification: 2 and E Assessment & Plan Anesthesia* Anesthesia Assessment Anesthesia Assessment: Discussed sedation and/or anesthesia options, risks, benefits, and alternatives with patient/parents/legal guardian/POA. Questions invited. The patient/parents/legal guardian/POA seems to understand and agrees to proceedwith anesthesia plan. Reviewed the physical assessment, medical history, allergy history and patient home medications list prior to surgery/procedure/anesthetic and documented any changes. Performed airway and anesthesia risk assessments. Anesthesia Type Anesthesia Type: MAC Anesthesia Focused Assessment* Temperature: 98.2 F Pulse Rate: 59 Blood Pressure: 127/93 Respiratory Rate: 16 Pulse Ox: 100 Airway Assessment Mouth opens: >3 cm Mallampati Score: II Focused Labs Anesthesia Preop lab: CBC WBC 12.1 K/mm3 (4.4-11.0) H 08/05/24 12:40 5 RBC 2.95 M/mm3 (4.6-6.2) L 08/05/24 12:40 08/05/24 Hgb 8.9 g/dL (13.0-16.5) L 08/05/24 12:40 08/05/24 Hct 26.8 % (40-54) L 08/05/24 12:40 08/05/24 Plt Count 281 K/mm3 (150-450) 08/05/24 12:40 08/05/24 CHEMISTRY Potassium 4.1 mmol/L (3.3-5.1) 08/05/24 12:40 08/05/24 Sodium 138 mmol/L (133-145) 08/05/24 12:40 08/05/24 Magnesium 2.1 mg/dL (1.6-2.6) 01/22/20 14:45 01/22/20 BUN 48 mg/dL (4-19) H 08/05/24 12:40 08/05/24 Creatinine 0.76 mg/dL (0.70-1.20) 08/05/24 12:40 08/05/24 Glucose 180 mg/dL (70-99) H 08/05/24 12:40 08/05/24 COAG Pre-Assessment Diagnosis/Proposed Procedure Planned Operative Procedure(s): EGD Anesthesia History Anesthesia History - inspector packager: Anesthesia History - inspector packager Hx Hospitalization No 01/22/20 12:15 Any Problems With Anesthesia No 08/05/24 16:52 Cholinesterase deficiency No 08/05/24 16:52 You/Your Family Experience No 08/05/24 16:52 fever (hyperthermia) with Relationship Recent Exposure to Contagious No 08/05/24 16:52 Disease Does patient have nerve No 08/05/24 16:52 stimulator Patient instructed to have device shut off --Does patient have Pacemaker No 08/05/24 16:56 or ICD? When Was Last Pacemaker Check QUESTION #4 FULL TEXT: You/Your Family Experience fever (hyperthermia) with Anesthesia Last Oral Intake Last Oral intake: Last Oral Intake NPO since 16:30 08/05/24 16:56 Meds taken in AM with sips of water? Meds patient instructed to take am of surgery PONV PONV - inspector packager: PONV - inspector packager Female HX of Motion Sickness HX of N/V After Surgery Non-Smoker Duration of Surgery greater than 60 minutes Number of Risk Factors PONV Score Height & Weight Height & Weight: Anesthesia: Height & Weight Height 5 ft 10.87 in 08/05/24 16:56 Weight: 77.8 kg 08/05/24 16:56 Body Mass Index (BMI) 24.0 08/05/24 16:56 Respiratory Assessment Respiratory Assessment - inspector packager: Respiratory Tract Infection Hx - inspector packager Hx Respiratory Tract Infection No 08/05/24 16:52 STOP Sleep Apnea STOP Sleep Apnea - inspector packager: STOP Sleep Apnea - inspector packager Hx Hypertension No 08/05/24 16:27 Hx Sleep Apnea No 08/05/24 16:27 CPAP BIPAP Do you snore loudly (louder No 08/05/24 16:27 than talking or can be heard Do you often feel tired/ No 08/05/24 16:27 fatigued/ sleepy during daytime? Has anyone observed you stop No 08/05/24 16:27 breathing during sleep? STOP Results Negative 08/05/24 16:27 QUESTION #5 FULL TEXT : Do you snore loudly (louder than talking or can be heard through closeddoors)? Tobacco Use History Tobacco Use History - inspector packager: Tobacco Use History - inspector packager Tobacco Use Smoking Status Never smoker 08/05/24 16:27 Hx Tobacco Use No 08/05/24 16:27 Years Smoking Packs Smoked per Day Smoking Cessation Date was within the last 15 years Hx Smoking Cessation Date Hx Smoking Cessation Counseling Hematologic Medial History Hematologic Hx - inspector packager: Hematologic Medical Hx - financial planning analyst Hx of Blood Transfusion No 08/05/24 16:27 Hx of Transfusion in last 3 No 08/05/24 16:27 Months Date of Last Transfusion (if within last 3 months) Ever experience any problems No 08/05/24 16:27 with transfusion(s)? Specify any problems Hx of Preganancy in last 3 N/A 08/05/24 16:27 Months Nurse Filling Out Transfusion JDIAL 08/05/24 16:27 & Questions: Date: 08/05/24 08/05/24 16:27 Time: 16:31 08/05/24 16:27 Patient unable to answer at this time (ie. confused, unrespo /Reproduction History /Reproductive History - inspector packager: /Reproductive Hx- inspector packager Hx Now No 08/05/24 16:52 Gestational Age (in weeks): EDC: Hx Hx Para Hx Section SAB No 08/05/24 16:52 Active Medications Active Medications: Current Medications Generic Name Dose Route Start Last Admin Trade Name Freq PRN Reason Stop Dose Admin Pantoprazole Sodium 80 mg/ 100 mls @ 10 mls/hr 08/05/24 15:30 08/05/24 15:52 Sodium Chloride CONT INF 10 mls/hr Q10H MARSHA Administration Sodium Chloride 1,000 mls @ 75 mls/hr 08/05/24 16:19 IV .[id number] MARSHA Sodium Chloride 10 - 40 ml 08/05/24 16:33 0.9% Saline Lock 10 Ml Syringe IV UD PRN SALINE FLUSH PFSH Medical History History of DVT (deep vein thrombosis) Mitral valve prolapse Home Medications ?Medication ?Instructions ?Recorded ?Last Taken ?Type aspirin 81 mg chewable tablet 81 mg PO DAILY heart hea lth 01/22/20 08/05/24 History multivitamin 1 tab PO DAILY supplement 08/05/24 History omega-3 fatty acids 1,000 mg 2,000 mg PO BID supplemen t 01/22/20 08/05/24 History capsule turmeric 450 mg-turmeric root 1 cap PO DAILY supplemen t 01/22/20 08/05/24 History extract 50 mg capsule polyethylene glycol 3350 17 17 g PO DAILY PRN laxative effect 08/05/24 08/02/24 History gram/dose oral powder (ClearLax) psyllium husk 0.4 gram capsule 0.8 g PO BID 08/05/24 0 08/05/24 History (Daily Fiber) Allergy/AdvReac Type Severity Reaction Status Date / Time Penicillins AdvReac PT UNABLE Verified 08/05/24 13:12 TO RESPOND-NEEDS F/U Family History Father Myocardial infarction Mother CVA (cerebral vascular accident) Surgical History H/O shoulder surgery History of repair of hiatal hernia Social History Smoking Status: Never smoker alcohol intake: never Review of Systems (Anesthesia) ROS Narrative System reviewed and no additional complaints, except as documented. 08/05/24 1730 > Date _ Naun Ely Signature: Date CC: ~ Signed [facility]05-03-2025 Discharge summary Author Wally Valdez [facility] Note Date/Time August 05, 2024 3:30pm [facility] Medical Records Department [address] [place] [address] Emergency Department Summary 08/05/24 MR#: [id number] Acct: [id number] Name: LAINE GARCIA Rep #:[id number] : 1955 69 From: Wally Valdez MD PCP: Rachana Birmingham, WORD PROCESSING OPERATOR-C Status:RE G ER Location: ED HPI History of Present Illness Chief Complaint: Abd Pain Narrative Narrative: 69-year-old male states he has been having problems with abdominal pain for the last few months. This morning, he started having abdominal pain again. It feltmore like cramping. 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 His states he looked pale all morning. He denies any chest pain or shortness of breath, but states that he was walking up his lawn, when he felt weak in the knees and collapsed. He was trying to get some home remedy to help with his abdominal cramping. 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 He was ordered by EMS that he had passed out twice within 5 minutes of each other for a very brief period of time. Patient states his abdominal cramping is improving, but he feels mildly weak. He states he has notpassed out previously, although his problem list states that he has had syncope in the past. PFSH PFS Home Medications ?Medication ?Instructions ?Recorded ?Last Taken ?Type aspirin 81 mg chewable tablet 81 mg PO DAILY [facility] 01/22/20 08/05/24 History multivitamin 1 tab PO DAILY supplement 08/05/24 History omega-3 fatty acids 1,000 mg 2,000 mg PO BID supplemen t 01/22/20 08/05/24 History capsule turmeric 450 mg-turmeric root 1 cap PO DAILY supplemen t 01/22/20 08/05/24 History extract 50 mg capsule polyethylene glycol 3350 17 17 g PO DAILY PRN laxative effect 08/05/24 08/02/24 History gram/dose oral powder (ClearLax) psyllium husk 0.4 gram capsule 0.8 g PO BID 08/05/24 0 08/05/24 History (Daily Fiber) Allergy/AdvReac Type Severity Reaction Status Date / Time Penicillins AdvReac PT UNABLE Verified 08/05/24 13:12 TO RESPOND-NEEDS F/U Family History Father Myocardial infarction Mother CVA (cerebral vascular accident) Surgical History H/O shoulder surgery History of repair of hiatal hernia Social History Smoking Status: Never smoker alcohol intake: never ROS ROS ED ROS Narrative Constitutional: No fever, no chills. Cardiovascular: No chest pain. No palpitations. No pedal edema. Respiratory: No cough, no shortness of breath. Abdominal: Positive abdominal cramping abdominal pain. Positive nausea. No vomiting. Genitourinary: No dysuria. No hematuria. Musculoskeletal: No myalgias. No arthralgias. Neurologic: No headaches. No dizziness. Positive lightheadedness. 2 episodes of brief syncope within 5 minutes of each other. EXAM Physical Exam Narrative Exam Narrative: Afebrile. Vital signs noted. HEENT: Normocephalic. Atraumatic. PERRL, EOMI. Neck soft and supple. No pointtenderness or step off. Cardiovascular: Regular rate and rhythm. No murmurs, rubs, or gallops appreciated. Respiratory: No tachypnea. Lungs clear to auscultation bilaterally. Gastrointestinal: Abdomen soft, nontender, with normoactive bowel sounds. No rebound or guarding. Neurological: Awake. Alert. Nonfocal, nonlateralizing. Moves all extremities. Skin: No rash. Normal color. No pallor. Musculoskeletal: No pedal edema. Full range of motion extremities. Const Vital Signs: 08/05/24 13:06 08/05/24 13:30 08/05/24 13:37 Temperature 98.8 F Temperature Source Oral Pulse Rate 74 62 Pulse Rate [Lying] 60 Pulse Rate [Sitting (for 1 minute prior to obtaining)] 62 Pulse Rate [Standing (for 1 minute prior to obtaining)] 90 Respiratory Rate 13 14 Blood Pressure 121/70 H Blood Pressure [Lying] 118/73 Blood Pressure [Sitting (for 1 minute prior to obtaining)] 126/69 H Blood Pressure [Standing (for 1 minute prior to obtaining)] 96/61 Blood Pressure Mean 87 Blood Pressure Mean [Lying] 88 Blood Pressure Mean [Sitting (for 1 minute prior to obtaining)] 88 Blood Pressure Mean [Standing (for 1 minute prior to obtaining)] 72 Pulse Ox 99 98 Oxygen Delivery Method Room Air 08/05/24 13:45 08/05/24 14:00 08/05/24 14:15 Temperature Temperature Source Pulse Rate 58 L Pulse Rate [Lying] Pulse Rate [Sitting (for 1 minute prior to obtaining)] Pulse Rate [Standing (for 1 minute prior to obtaining)] Respiratory Rate 12 Blood Pressure 123/84 H 121/75 H Blood Pressure [Lying] Blood Pressure [Sitting (for 1 minute prior to obtaining)] Blood Pressure [Standing (for 1 minute prior to obtaining)] Blood Pressure Mean 96 88 Blood Pressure Mean [Lying] Blood Pressure Mean [Sitting (for 1 minute prior to obtaining)] Blood Pressure Mean [Standing (for 1 minute prior to obtaining)] Pulse Ox 99 Oxygen Delivery Method 08/05/24 14:30 08/05/24 14:45 Temperature Temperature Source Pulse Rate 61 64 Pulse Rate [Lying] Pulse Rate [Sitting (for 1 minute prior to obtaining)] Pulse Rate [Standing (for 1 minute prior to obtaining)] Respiratory Rate 13 13 Blood Pressure 133/77 H 132/79 H Blood Pressure [Lying] Blood Pressure [Sitting (for 1 minute prior to obtaining)] Blood Pressure [Standing (for 1 minute prior to obtaining)] Blood Pressure Mean 94 94 Blood Pressure Mean [Lying] Blood Pressure Mean [Sitting (for 1 minute prior to obtaining)] Blood Pressure Mean [Standing (for 1 minute prior to obtaining)] Pulse Ox 99 100 Oxygen Delivery Method MDM MDM MDM Narrative Medical decision making narrative: Patient states that he had a CT scan performed in May, approximately 3 months ago. He has been having ongoing abdominal issues. It sounds more like he had a vasovagal episode with a vasovagal syncope. Differential diagnosis also includes dehydration versus other electrolyte abnormality versus cardiac syncope. He had no chest pain but I will obtain an EKG. Additionally, orthostatics will be obtained and he will be bolused normal saline [address] imaging will be obtained as well. I was informed by the RN that the patient is orthostatic positive. He was bolused normal saline intravenously. I reviewed his laboratory work from today and he has a white count of 12.1 with hemoglobin down to 8.9 when compared to prior laboratories from a few months ago. Patient denied any hematemesis or black stool. Looking at his BUN is elevated at 48 with creatinine 0.79. Glucose elevated at 180 but normal anion gap of 7. Urinalysis is negative for infection with 5 ketones. There are 0-5 WBCs. I do not feel antibiotics are indicated. Patient states that he was feeling improved after IV fluids. Of note, his did state that he had black stool today although he denied it. My concern is for upper GI bleeding with elevated BUN, orthostatic positive, in combination with review of the CT of the abdomen and pelvis with IV contrast which comments on small punctate air in the duodenum and that it is consistent with duodenitis versus nonperforated ulcer. As I have concern for upper GI bleeding from probable ulcer in the duodenum, I discussed patient with Dr. Avendano for GI bleeding. It was felt that patient could be admitted to medicine here. I then discussed patient with . He Will Be Started on Pantoprazole Drip/Continuous Infusion. Disposition Is Admit to Medical Surgical Floor in Stable Condition. History & Record Review Discussion w/independent historian: EMS personnel, Patient and Family Additional record(s) reviewed:: Prior labs Lab Data Attestation: I reviewed the patient's lab results. Labs: Laboratory Results - last 24 hr 08/05/24 08/05/24 12:40 14:26 WBC 12.1 H RBC 2.95 L Hgb 8.9 L Hct 26.8 L MCV 90.8 MCH 30.2 MCHC 33.2 RDW Std Deviation 47.8 H RDW Coeff of Edna 14.4 Plt Count 281 MPV 9.7 Immature Gran % (Auto) 0.700 Neut % (Auto) 89.3 H Lymph % (Auto) 6.3 L [place] % (Auto) 3.2 Eos % (Auto) 0.2 Baso % (Auto) 0.3 Absolute Neuts (auto) 10.8 H Absolute Lymphs (auto) 0.76 L Nucleated RBC % 0 Sodium 138 Potassium 4.1 Chloride 107 Carbon Dioxide 23.8 Anion Gap 7 BUN 48 H Creatinine 0.76 Estim Creat Clear Calc 91.51 Est GFR (MDRD) Non-Af 97 BUN/Creatinine Ratio 62.8 H Glucose 180 H Calcium 8.3 Urine Color Yellow Urine Clarity Clear Urine pH 5.0 Ur Specific Santa Claus 1.020 Urine Protein 15 H Urine Glucose (UA) Normal Urine Ketones 5 H Urine Occult Blood Negative Urine Nitrite Negative Urine Bilirubin Negative Urine Urobilinogen Normal Ur Leukocyte Esterase Negative Urine RBC 0-5 SEEN Urine WBC 0-5 SEEN Ur Squamous Epith Cells 0 SEEN Urine Bacteria RARE Urine Mucus 0 SEEN Radiography Diagnostic Testing: Clinical Impression(s) from Imaging Studies Abdomen/Pelvis CT 08/05/24 13:21 IMPRESSION: 1. Punctate gas within the proximal duodenum with mild duodenal thickening, which is nonspecific and may represent duodenitis or non perforated duodenal ulcer. 2. Otherwise unremarkable CT abdomen pelvis. Reading Location: [facility] Discharge Plan Dx/Rx/DC Orders Clinical Impression: Syncope, Orthostatic hypotension, Abdominal pain, Duodenal ulcer Disposition Disposition: Acute Care Hospital [facility] What to do if you have Problems For any increased pain, shortness of breath, bleeding, nausea or vomiting, chestpain, or any unexpected problems, contact your Primary Care Provider. Call [facility] ([phone]) or report to the closest Emergency Room. Call 911 if necessary. 08/05/24 1530 <Electronically signed by Wally Valdez MD> Cosigner Signature (if applicable): CC: NERI Birmingham ~ Signed [facility] Work Phone: [phone]) 922-716805-03-2025 [facility] [address] [place] [address] H&P Exam - Hospitalist 08/05/24 1543 MR#: [id number] Acct: [id number] Name: LAINE GARCIA Rep #:[id number] : 1955 69 From: Derrick root MD PCP: Rachana Birmingham, WORD PROCESSING OPERATOR-C Status:AD M IN [place] [facility] [id number] HPI - General General Date of Admission: 08/05/24 HPI Narrative LAINE GARCIA, is a 69 M who presents to the hospital after 2 syncopal episodes at home and an episode of maroon-colored stools. He has been having abdominal discomfort with increasing epigastric painover the last several months. It feels likely due to constipation. He is currently taking a daily aspirin for what he says are blood clots, he had blood clots in 2015 after surgery for a hiatal hernia and then his doctor told him to continue aspirin after his shoulder surgery repair to prevent further blood clots. CT scan today demonstrates duodenal ulcer with possible free air though is not having any significant abdominal pain at the moment. Hemoglobin did drop from 13.4 on 05/06/2024 to 8.9 today. He is otherwise hemodynamically stable and his vital signs are all stable. [facility] Medical History (Updated 08/05/24 @ 15:[address] Derrick Yadav MD) Mitral valve prolapse History of DVT (deep vein thrombosis) Home Medications ?Medication ?Instructions ?Recorded ?Last Taken ?Type aspirin 81 mg chewable tablet 81 mg PO DAILY heart hea lth 01/22/20 08/05/24 History multivitamin 1 tab PO DAILY supplement 08/05/24 History omega-3 fatty acids 1,000 mg 2,000 mg PO BID supplemen t 01/22/20 08/05/24 History capsule turmeric 450 mg-turmeric root 1 cap PO DAILY supplemen t 01/22/20 08/05/24 History extract 50 mg capsule polyethylene glycol 3350 17 17 g PO DAILY PRN laxative effect 08/05/24 08/02/24 History gram/dose oral powder (ClearLax) psyllium husk 0.4 gram capsule 0.8 g PO BID 08/05/24 0 08/05/24 History (Daily Fiber) Allergy/AdvReac Type Severity Reaction Status Date / Time Penicillins AdvReac PT UNABLE Verified 08/05/24 13:12 TO RESPOND-NEEDS F/U Family History Father Myocardial infarction Mother CVA (cerebral vascular accident) Surgical History H/O shoulder surgery History of repair of hiatal hernia Social History Smoking Status: Never smoker alcohol intake: never ROS Constitutional Constitutional: Denies chills, fatigue, fever(s) or malaise Eyes Eyes: Denies blurry vision ENT HEENT: Denies headache(s) or nasal discharge Cardiovascular Cardiovascular: Reports syncope; Denies chest pain or dyspnea on exertion Respiratory/Chest Respiratory/Chest: Denies cough, shortness of breath at rest or shortness of breath with exertion Gastrointestinal Gastrointestinal: Reports abdominal pain and melena; Denies constipation, diarrhea, nausea or vomiting Genitourinary Genitourinary: Denies dysuria Neurologic Neurologic: Denies focal weakness, numbness or tremor(s) Psychiatric Psychiatric: Denies anxiety or depression Vital Signs Vital Signs Vital Signs: 08/05/24 13:06 08/05/24 13:30 08/05/24 13:37 Temperature 98.8 F Temperature Source Oral Pulse Rate 74 62 Pulse Rate [Lying] 60 Pulse Rate [Sitting (for 1 minute prior to obtaining)] 62 Pulse Rate [Standing (for 1 minute prior to obtaining)] 90 Respiratory Rate 13 14 Blood Pressure 121/70 H Blood Pressure [Lying] 118/73 Blood Pressure [Sitting (for 1 minute prior to obtaining)] 126/69 H Blood Pressure [Standing (for 1 minute prior to obtaining)] 96/61 Blood Pressure Mean 87 Blood Pressure Mean [Lying] 88 Blood Pressure Mean [Sitting (for 1 minute prior to obtaining)] 88 Blood Pressure Mean [Standing (for 1 minute prior to obtaining)] 72 Pulse Ox 99 98 Oxygen Delivery Method Room Air 08/05/24 13:45 08/05/24 14:00 08/05/24 14:15 Temperature Temperature Source Pulse Rate 58 L Pulse Rate [Lying] Pulse Rate [Sitting (for 1 minute prior to obtaining)] Pulse Rate [Standing (for 1 minute prior to obtaining)] Respiratory Rate 12 Blood Pressure 123/84 H 121/75 H Blood Pressure [Lying] Blood Pressure [Sitting (for 1 minute prior to obtaining)] Blood Pressure [Standing (for 1 minute prior to obtaining)] Blood Pressure Mean 96 88 Blood Pressure Mean [Lying] Blood Pressure Mean [Sitting (for 1 minute prior to obtaining)] Blood Pressure Mean [Standing (for 1 minute prior to obtaining)] Pulse Ox 99 Oxygen Delivery Method 08/05/24 14:30 08/05/24 14:45 Temperature Temperature Source Pulse Rate 61 64 Pulse Rate [Lying] Pulse Rate [Sitting (for 1 minute prior to obtaining)] Pulse Rate [Standing (for 1 minute prior to obtaining)] Respiratory Rate 13 13 Blood Pressure 133/77 H 132/79 H Blood Pressure [Lying] Blood Pressure [Sitting (for 1 minute prior to obtaining)] Blood Pressure [Standing (for 1 minute prior to obtaining)] Blood Pressure Mean 94 94 Blood Pressure Mean [Lying] Blood Pressure Mean [Sitting (for 1 minute prior to obtaining)] Blood Pressure Mean [Standing (for 1 minute prior to obtaining)] Pulse Ox 99 100 Oxygen Delivery Method Weight Weight: 179 lb 10.828 oz Body Mass Index (BMI) 25.0 Physical Exam Narrative General: Alert, Oriented x3, Cooperative, No apparent distress HEENT: Atraumatic, PERRLA, EOMI, Normocephalic Oral: Moist Mucosa Neck: Supple, No JVD Lungs: Diminished, Normal air movement, No rhonchi, No wheeze, No rales Cardiovascular: Regular rate, Regular Rhythm, Normal S1, Normal S2, No murmurs Abdomen: Soft, Non Tender, Non-Distended, No Hepato-splenomegaly Extremities: No edema, Capillary Refill Less than 3 Seconds Skin: No rashes, No breakdown Musculoskeletal: No Tenderness to Palpation of Joints or Extremities Neurological: No focal neurological deficits, Motor Exam 5/5 strength throughout, Sensory exam intact to light touch and pain Psych/Mental Status: Normal Affect, Appropriate Results Lab / Micro Data 08/05/24 12:40 08/05/24 12:40 Labs: Laboratory Results - last 24 hr 08/05/24 12:40: WBC 12.1 H, RBC 2.95 L, Hgb 8.9 L, Hct 26.8 L, MCV 90.8, MCH 30.2, MCHC 33.2, RDW Std Deviation 47.8 H, RDW Coeff of Edna 14.4, Plt Count 281,MPV 9.7, Immature Gran % (Auto) 0.700, Neut % (Auto) 89.3 H, Lymph % (Auto) 6.3 L, [place] % (Auto) 3.2, Eos % (Auto) 0.2, Baso % (Auto) 0.3, Absolute Neuts (auto)10.8 H, Absolute Lymphs (auto) 0.76 L, Nucleated RBC % 0, Sodium 138, Potassium 4.1, Chloride 107, Carbon Dioxide 23.8, Anion Gap 7, BUN 48 H, Creatinine 0.76, Estim Creat Clear Calc91.51, Est GFR (MDRD) Non-Af 97, BUN/Creatinine Ratio 62.8 H, Glucose 180 H, Calcium 8.3 08/05/24 14:26: Urine Color Yellow, Urine Clarity Clear, Urine pH 5.0, Ur Specific Santa Claus 1.020, Urine Protein 15 H, Urine Glucose (UA) Normal, Urine Ketones 5 H, Urine Occult Blood Negative, Urine Nitrite Negative, Urine Bilirubin Negative, Urine Urobilinogen Normal, Ur Leukocyte Esterase Negative, Urine RBC 0-5 SEEN, Urine WBC 0-5 SEEN, Ur Squamous Epith Cells 0 SEEN, Urine Bacteria RARE, Urine Mucus 0 SEEN Imaging Radiology Impression Abdomen/Pelvis CT 08/05/24 13:21 IMPRESSION: 1. Punctate gas within the proximal duodenum with mild duodenal thickening, which is nonspecific and may represent duodenitis or non perforated duodenal ulcer. 2. Otherwise unremarkable CT abdomen pelvis. Reading Location: [id number] Assessment & Plan Assessment/Plan (1) Duodenal ulcer: PLAN: Plan 1. Acute blood loss anemia secondary to an upper GI bleed from a duodenal ulcerresulting in orthostatic hypotension and syncope ? Continue with Protonix drip ? Will consult gastroenterology for EGD ? Continue with clear liquid diet ? Will recheck H&H this evening ? Discontinue aspirin as he will no longer needed since it is not indicated for history of DVT especially when that was provoked by hiatal hernia surgery in 2016 ? Continue with gentle IV fluids DVT: SCDs 55 minutes was spent on direct patient care, including documentation as well as chart review and collaboration with colleagues Charges/Coding Visit Charges Inpatient E&M: 09549 Init Hosp L2 08/05/24 1559 Cosigner Signature (if applicable): CC: WORD PROCESSING OPERATORRy Birmingham; Dr. Derrick Yadav MD~ Signed [facility]05-03-2025 Discharge summary [facility] Medical Records Department [address] [place] [address] Emergency Department Summary 08/05/24 MR#: [id number] Acct: [id number] Name: LAINE GARCIA Rep #:[id number] : 1955 69 From: Wally Valdez MD PCP: NERI Galaviz Status:RE G ER Location: ED HPI History of Present Illness Chief Complaint: Abd Pain Narrative Narrative: 69-year-old male states he has been having problems with abdominal pain for the last few months. This morning, he started having abdominal pain again. It feltmore like cramping. 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 His states he looked pale all morning. He denies any chest pain or shortness of breath, but states that he was walking up his lawn, when he felt weak in the knees and collapsed.He was trying to get some home remedy to help with his abdominal cramping. 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 He was ordered by EMS that he had passed out twice within 5 minutes of each other for a very brief period of time. Patient states his abdominalcramping is improving, but he feels mildly weak. He states he has notpassed out previously, although his problem list states that he has had syncope in the past. [facility] Home Medications ?Medication ?Instructions ?Recorded ?Last Taken ?Type aspirin 81 mg chewable tablet 81 mg PO DAILY heart hea lth 01/22/20 08/05/24 History multivitamin 1 tab PO DAILY supplement 08/05/24 History omega-3 fatty acids 1,000 mg 2,000 mg PO BID supplemen t 01/22/20 08/05/24 History capsule turmeric 450 mg-turmeric root 1 cap PO DAILY supplemen t 01/22/20 08/05/24 History extract 50 mg capsule polyethylene glycol 3350 17 17 g PO DAILY PRN laxative effect 08/05/24 08/02/24 History gram/dose oral powder (ClearLax) psyllium husk 0.4 gram capsule 0.8 g PO BID 08/05/24 0 08/05/24 History (Daily Fiber) Allergy/AdvReac Type Severity Reaction Status Date / Time Penicillins AdvReac PT UNABLE Verified 08/05/24 13:12 TO RESPOND-NEEDS F/U Family History Father Myocardial infarction Mother CVA (cerebral vascular accident) Surgical History H/O shoulder surgery History of repair of hiatal hernia Social History Smoking Status: Never smoker alcohol intake: never ROS ROS ED ROS Narrative Constitutional: No fever, no chills. Cardiovascular: No chest pain. No palpitations. No pedal edema. Respiratory: No cough, no shortness of breath. Abdominal: Positive abdominal cramping abdominal pain. Positive nausea. No vomiting. Genitourinary: No dysuria. No hematuria. Musculoskeletal: No myalgias. No arthralgias. Neurologic: No headaches. No dizziness. Positive lightheadedness. 2 episodes of brief syncope within 5 minutes of each other. EXAM Physical Exam Narrative Exam Narrative: Afebrile. Vital signs noted. HEENT: Normocephalic. Atraumatic. PERRL, EOMI. Neck soft and supple. No pointtenderness or step off. Cardiovascular: Regular rate and rhythm. No murmurs, rubs, or gallops appreciated. Respiratory: No tachypnea. Lungs clear to auscultation bilaterally. Gastrointestinal: Abdomen soft, nontender, with normoactive bowel sounds. No rebound or guarding. Neurological: Awake. Alert. Nonfocal, nonlateralizing. Moves all extremities. Skin: No rash. Normal color. No pallor. Musculoskeletal: No pedal edema. Full range of motion extremities. Const Vital Signs: 08/05/24 13:06 08/05/24 13:30 08/05/24 13:37 Temperature 98.8 F Temperature Source Oral Pulse Rate 74 62 Pulse Rate [Lying] 60 Pulse Rate [Sitting (for 1 minute prior to obtaining)] 62 Pulse Rate [Standing (for 1 minute prior to obtaining)] 90 Respiratory Rate 13 14 Blood Pressure 121/70 H Blood Pressure [Lying] 118/73 Blood Pressure [Sitting (for 1 minute prior to obtaining)] 126/69 H Blood Pressure [Standing (for 1 minute prior to obtaining)] 96/61 Blood Pressure Mean 87 Blood Pressure Mean [Lying] 88 Blood Pressure Mean [Sitting (for 1 minute prior to obtaining)] 88 Blood Pressure Mean [Standing (for 1 minute prior to obtaining)] 72 Pulse Ox 99 98 Oxygen Delivery Method Room Air 08/05/24 13:45 08/05/24 14:00 08/05/24 14:15 Temperature Temperature Source Pulse Rate 58 L Pulse Rate [Lying] Pulse Rate [Sitting (for 1 minute prior to obtaining)] Pulse Rate [Standing (for 1 minute prior to obtaining)] Respiratory Rate 12 Blood Pressure 123/84 H 121/75 H Blood Pressure [Lying] Blood Pressure [Sitting (for 1 minute prior to obtaining)] Blood Pressure [Standing (for 1 minute prior to obtaining)] Blood Pressure Mean 96 88 Blood Pressure Mean [Lying] Blood Pressure Mean [Sitting (for 1 minute prior to obtaining)] Blood Pressure Mean [Standing (for 1 minute prior to obtaining)] Pulse Ox 99 Oxygen Delivery Method 08/05/24 14:30 08/05/24 14:45 Temperature Temperature Source Pulse Rate 61 64 Pulse Rate [Lying] Pulse Rate [Sitting (for 1 minute prior to obtaining)] Pulse Rate [Standing (for 1 minute prior to obtaining)] Respiratory Rate 13 13 Blood Pressure 133/77 H 132/79 H Blood Pressure [Lying] Blood Pressure [Sitting (for 1 minute prior to obtaining)] Blood Pressure [Standing (for 1 minute prior to obtaining)] Blood Pressure Mean 94 94 Blood Pressure Mean [Lying] Blood Pressure Mean [Sitting (for 1 minute prior to obtaining)] Blood Pressure Mean [Standing (for 1 minute prior to obtaining)] Pulse Ox 99 100 Oxygen Delivery Method MDM MDM MDM Narrative Medical decision making narrative: Patient states that he had a CT scan performed in May, approximately 3 months ago. He has beenhaving ongoing abdominal issues. It sounds more like he had a vasovagal episode with a vasovagal syncope. Differential diagnosis also includes dehydration versus other electrolyte abnormality versus cardiac syncope. He had no chest pain but I will obtain an EKG. Additionally, orthostatics will be obtained and he will be bolused normal saline [address] imaging will be obtained as well. I was informed by the RN that the patient is orthostatic positive. He was bolused normal saline intravenously. I reviewed his laboratory work from today and he has a white count of 12.1 with hemoglobin down to 8.9 when compared to prior laboratories from a few months ago. Patient denied any hematemesis or black stool. Looking at his BUN is elevated at 48 with creatinine 0.79. Glucose elevated at 180 but normal anion gap of 7. Urinalysis is negative for infection with 5 ketones. There are 0-5 WBCs. I do not feel antibiotics are indicated. Patient states that he was feeling improved after IV fluids. Of note, his did state that he had black stool today although he denied it. My concern is for upper GI bleeding with elevated BUN, orthostatic positive, in combination with review of the CT of the abdomen and pelvis with IV contrast which comments on small punctate air in the duodenum and that it is consistent with duodenitis versus nonperforated ulcer. As I have concern for upper GI bleeding from probable ulcer in the duodenum, I discussed patient with Dr. Avendano for GI bleeding. It was felt that patient could be admitted to medicine here. I then discussed patient with . He Will Be Started on Pantoprazole Drip/Continuous Infusion. Disposition Is Admit to Medical Surgical Floor in Stable Condition. History & Record Review Discussion w/independent historian: EMS personnel, Patient and Family Additional record(s) reviewed:: Prior labs Lab Data Attestation: I reviewed the patient's lab results. Labs: Laboratory Results - last 24 hr 08/05/24 08/05/24 12:40 14:26 WBC 12.1 H RBC 2.95 L Hgb 8.9 L Hct 26.8 L MCV 90.8 MCH 30.2 MCHC 33.2 RDW Std Deviation 47.8 H RDW Coeff of Edna 14.4 Plt Count 281 MPV 9.7 Immature Gran % (Auto) 0.700 Neut % (Auto) 89.3 H Lymph % (Auto) 6.3 L [place] % (Auto) 3.2 Eos % (Auto) 0.2 Baso % (Auto) 0.3 Absolute Neuts (auto) 10.8 H Absolute Lymphs (auto) 0.76 L Nucleated RBC % 0 Sodium 138 Potassium 4.1 Chloride 107 Carbon Dioxide 23.8 Anion Gap 7 BUN 48 H Creatinine 0.76 Estim Creat Clear Calc 91.51 Est GFR (MDRD) Non-Af 97 BUN/Creatinine Ratio 62.8 H Glucose 180 H Calcium 8.3 Urine Color Yellow Urine Clarity Clear Urine pH 5.0 Ur Specific Santa Claus 1.020 Urine Protein 15 H Urine Glucose (UA) Normal Urine Ketones 5 H Urine Occult Blood Negative Urine Nitrite Negative Urine Bilirubin Negative Urine Urobilinogen Normal Ur Leukocyte Esterase Negative Urine RBC 0-5 SEEN Urine WBC 0-5 SEEN Ur Squamous Epith Cells 0 SEEN Urine Bacteria RARE Urine Mucus 0 SEEN Radiography Diagnostic Testing: Clinical Impression(s) from Imaging Studies Abdomen/Pelvis CT 08/05/24 13:21 IMPRESSION: 1. Punctate gas within the proximal duodenum with mild duodenal thickening, which is nonspecific and may represent duodenitis or non perforated duodenal ulcer. 2. Otherwise unremarkable CT abdomen pelvis. Reading Location: [facility] Discharge Plan Dx/Rx/DC Orders Clinical Impression: Syncope, Orthostatic hypotension, Abdominal pain, Duodenal ulcer Disposition Disposition: Acute Care Hospital [facility] What to do if you have Problems For any increased pain, shortness of breath, bleeding, nausea or vomiting, chestpain, or any unexpected problems, contact your Primary Care Provider. Call [facility] ([phone]) or report tothe closest Emergency Room. Call 911 if necessary. 08/05/24 1530 Cosigner Signature (if applicable): CC: WORD PROCESSING OPERATOR-C Rachana [place] ~ Signed [facility]05-03-2025 Radiology Diagnostic study note [facility] Imaging Services [address] [place], [place] [address] Abdomen/Pelvis W IV Cont ONLY MR#: [id number] Acct: [id number] Name: LAINE GARCIA Rep #: [id number] : 1955 M 69 From: Alis Betts MD PCP: NERI Galaviz Status: RE G ER Study:Abdomen/Pelvis W IV Cont ONLY Date of E xam: 08/05/24 Exam# [id number] Ordering Dr: Wally Valdez MD PROCEDURE: ABDOMEN/PELVIS W IV CONT ONLY 08/05/2024 REASON FOR EXAM: ABDOMINAL PAIN TECHNIQUE: Abdomen and pelvis CT with intravenous contrast. Coronal and Sagittal reconstruction series were provided. PATIENT PREPARATION: Per protocol ORAL CONTRAST TYPE: None. CONTRAST: Isovue 370 VOLUME: 100 mL One or more dose reduction techniques were used (e.g., Automated exposure control, adjustment of the mA and/or kV according to patient size, use of iterative reconstruction technique. RADIATION DOSE SUMMARY: CTDlvol: 40 mGy DLP: 1000 mGycm COMPARISON: CT abdomen pelvis 05/06/2024. FINDINGS: Lung bases: Bibasilar atelectasis. The heart is normal in size. Liver: The liver is normal in size with tiny hepatic cysts and additional hypodensities. The major portal veins are patent. No biliary ductal dilation. Gallbladder: No radiopaque stones within the gallbladder. Spleen: Normal size. Pancreas: Unremarkable. Adrenals: No adrenal mass. Kidneys: Right renal cysts and left parapelvic cysts. No hydronephrosis or nephrolithiasis. Bladder: Distended and unremarkable. Reproductive Organs: Unremarkable. Bowel: Punctate gas within the D1 segment of the duodenum with mild duodenal thickening (series 2, image 32). The bowel loops are nondilated. No ascites or pneumoperitoneum. Normal appendix. Lymph nodes: No suspicious lymph node enlargement. Vasculature: Mild mixed atherosclerotic plaque throughout the aortoiliac vessels. Bones: Thoracolumbar spondylosis with mild multilevel vertebral body height loss. Severe degenerative disc disease at L5-S1, unchanged. CT/Abdomen/Pelvis W IV Cont ONLY IMPRESSION: 1. Punctate gas within the proximal duodenum with mild duodenal thickening, which is nonspecific and may represent duodenitis or non perforated duodenal ulcer. 2. Otherwise unremarkable CT abdomen pelvis. Reading Location: [facility] CC: NERI Birmingham; Dr. Wally Valdez MD ~ Acid[employer] Water Well: Signed [facility]04-22-2025 Evaluation note* Diagnosis Onset Date Resolution Status Admit Date Constipation acute July 25, 2024 8:51am Abdominal pain acute August 05, 2 025 3:43pm Acute anemia acute August 05 3:43pm Duodenal ulcer acute August 05, 2 025 3:43pm Leukocytosis acute August 05 3:43pm Orthostatic hypotension acute 2024 3:43pm Pulmonary embolism acute August 3:43pm Syncope acute August 05, 2024 3:43pm Upper GI bleed acute August 05, 2 025 3:43pm [facility] Work Phone: 1(841) 154-564804-22-2025 Evaluation note* Diagnosis Onset Date Resolution Status Admit Date Constipation acute July 25, 2024 8:51am Abdominal pain acute August 05, 2 025 3:43pm Acute anemia acute August 05 3:43pm Duodenal ulcer acute August 05, 2 025 3:43pm Leukocytosis acute August 05 3:43pm Pulmonary embolism acute August 3:43pm Upper GI bleed acute August 05, 2 025 3:43pm Orthostatic hypotension resolved M 2024 3:43pm Syncope resolved August 05, 2024 3:43pm [facility] Work Phone: 1(403) 389-464204-22-2025 Evaluation note* Diagnosis Onset Date Resolution Status Admit Date Constipation acute July 25, 2024 8:51am Abdominal pain acute August 05, 2 025 3:43pm Acute anemia acute August 05 3:43pm Duodenal ulcer acute August 05, 2 025 3:43pm Leukocytosis acute August 05 3:43pm Pulmonary embolism acute August 3:43pm Upper GI bleed acute August 05, 2 025 3:43pm Orthostatic hypotension resolved M ay 2024 3:43pm Syncope resolved August 05, 2024 3:43pm Abdominal pain acute August 22, 2024 9:03am Duodenal ulcer acute August 22, 2024 9:03am Pulmonary embolism acute August 222024 9:03am [facility] Work Phone: 1([phone]) 735-560403-30-2023 Note. MICRO - Microbiology PROCEDURE: Blood Culture (bacterial) [*1] SOURCE: Blood BODY SITE: COLLECTED DATE/TIME: 06/27/2022 07:49 EDT RECEIVED DATE/TIME: 06/27/2022 16:40 EDT START DATE/TIME: 06/27/2022 16:40 EDT FREE TEXT SOURCE: FINAL REPORTS Final Report [] Verified Date/Time/Personnel: 07/02/2022 16:59 EDT Blood Culture: No Growth at 5 days. PRELIMINARY REPORTS Preliminary Report [] Verified Date/Time/Personnel: 06/27/2022 17:59 EDT Culture has been received in lab and is no growth to date. Routine cultures are held for 5 days. Performing Locations *1: This test was performed at: [address], [facility] , [facility]07-02-2022 Note. MICRO - Microbiology PROCEDURE: Blood Culture (bacterial) [*1] SOURCE: Blood BODY SITE: COLLECTED DATE/TIME: 06/27/2022 07:49 EDT RECEIVED DATE/TIME: 06/27/2022 16:40 EDT START DATE/TIME: 06/27/2022 16:40 EDT FREE TEXT SOURCE: FINAL REPORTS Final Report [] Verified Date/Time/Personnel: 07/02/2022 16:59 EDT Blood Culture: No Growth at 5 days. PRELIMINARY REPORTS Preliminary Report [] Verified Date/Time/Personnel: 06/27/2022 17:59 EDT Culture has been received in lab and is no growth to date. Routine cultures are held for 5 days. Performing Locations *1: This test was performed at: [address], [facility] , [facility]06-29-[facility] RE[facility] NAME ACCOUNT SEX AGE ADMIT DISCHARGE PT MED. RECORD# NUMBER DATE DATE TYPE LAINE GARCIA [id number] M 67 06/27/2022 3 [id number] ROOM: ER DATE OF : 1955 DICTATING PHYSICIAN: Leona Hankins DATE OF CONSULTATION: June 27, 2022 REASON FOR CONSULTATION: Right lower quadrant and right lower back pain. HISTORY OF PRESENT ILLNESS: Mr. Garcia is a 67-year-old male who was awakened this morning at 12:30 a.m. with right lower quadrant abdominal pain wrapping around into his lower back. He describes the pain as colicky in that it was constant with frequent exacerbations. He denies any other associated signs and symptoms of systemic illness such as fevers, chills, nausea, vomiting, derangement of bowel movements, or dysuria. PAST MEDICAL HISTORY: None. CURRENT MEDICATIONS: None. ALLERGIES: No known drug allergies. SOCIAL HISTORY: Negative x3. REVIEW OF SYSTEMS: Ten-system review of systems is negative. PHYSICAL EXAMINATION: VITAL SIGNS: He is afebrile. Vital signs are stable and within normal limits. GENERAL: He is alert, oriented and appropriate with no acute distress. CARDIOVASCULAR: Regular rate and rhythm. LUNGS: Lungs are clear to auscultation bilaterally. ABDOMEN: Abdomen is soft, nontender and nondistended. The patient did have some mild right costovertebral tenderness to palpation. EXTREMITIES: Extremities show no cyanosis, edema or gross deformities. NEUROLOGIC: GCS is 15. Cranial nerves II through XII are grossly intact. DIAGNOSTIC DATA: EKG was unremarkable. CBC was significant for neutrophilia of 86.8%, otherwise within normal limits. Comprehensive metabolic panel was within normal limits. Lipase was 120. CRP was 5.1. Urinalysis was significant for 10-15 RBCs and trace bacteria on microscopic examination. Lactate was 0.4. CT of the abdomen and pelvis was obtained, which was consistent with pyelonephritis with a possible right ureteral stone. Appendix was visualized and was unremarkable. ASSESSMENT: A 67-year-old male with right pyelonephritis and possible right ureteral Page 1 of 2 LAINE GARCIA Safety Lead Report LAINE GARCIA : 1955 stone. RECOMMENDATIONS: No acute general surgery concerns at this time. I recommended general medicine and/or nephrology consult for further evaluation and treatment. All questions were answered. The patient was understanding and in agreement with the plan. Dictated By: Leona Hankins MD 06/27/2022 09:35 JOB #: [id number] Transcribed By: felipe 06/27/2022 10:01 Electronically signed by: E-SIGN DR. HANKINS 06/29/22 11:47 Page 2 of 2 LAINE GARCIA Safety [facility]* Diagnosis Duodenal perforation (CMS/HCC) (HCC)- Primary Other specified disorder of stomach and duodenum Duodenal perforation (CMS/HCC) (HCC) Other specified disorder of stomach and duodenum Duodenal ulceration Duodenal ulcer, unspecified as acute or chronic, without hemorrhage, perforation, or obstruction Pneumoperitoneum Other specified disorder of peritoneum Malnutrition (CMS/HCC) (HCC) Unspecified protein-calorie malnutrition Severe malnutrition (CMS/HCC) (HCC) Nutritional marasmus [facility] Encounter for postoperative care- Primary documented [facility] this encounter [facility] Author Betito Avendano [facility] Note Date/Time August 09, 2024 5:19pm [facility] Medical Records Department [address] [place] [address] Progress Note 08/09/24 1717 MR#: [id number] Acct: [id number] Name: LAINE GARCIA Rep #:[id number] : 1955 69 From: Betito Avendano DO PCP: Dr. Dante Gurrola MD Status:ADM I N Location: [place] [address] Progress Note Patient was seen by hospitalist this morning with complaints of shortness of breath. He got a CT of the chest and it showed bilateral pulmonary emboli. During the CT scan abdomen pelvis noticed some air underneath the diaphragm nearthe spleen. Vascular surgery was consulted to put a temporary IVC filter. Physical Exam Const alert, oriented x3 and average body habitus Resp normal respiratory effort, normal air movement and clear to auscultation bilaterally Cardio regular rate, regular rhythm, no murmurs and diaphoretic Assessment & Plan Assessment/Plan (1) Duodenal ulcer: (2) Abdominal pain: (3) Orthostatic hypotension: PLAN: Plan 69-year-old gentleman with Acute on chronic anemia due to acute bleeding peptic ulcer secondary to possible NSAID induced injury from aspirin. * Originally patient admitted with complaint of abdominal pain and maroon- colored stools as well as syncope. He had EGD which showed normal esophagus and no gross lesions in the entire stomach and showed spurting duodenal ulcers with a visible vessel which was injected and treated with argon plasma coagulation and a nonbleeding duodenal ulcer with no stigmata of bleeding which was also treated with argon plasma coagulation * Hemoglobin dropped to 6.4 y so he was transfused with 2 more units of packed red blood cells. On pantoprazole drip * His hemoglobin went back up to 10.4 and today is 9.8. He underwent repeat upper endoscopy yesterday. And had his duodenal ulcer treated again with epinephrine argon plasma coagulation and cautery. 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 He had a lot of retained gas consistent with ileus after the procedure so NG tube was placed. NG tube came out overnight. His CT scan had showed improvement of gas without any signs of pneumoperitoneum. He is continues to improve. If he does well we will advance his diet as tolerated tomorrow. 08/09/2024-patient will be transferred to higher level of care for as it is assumed that he has air underneath the diaphragm secondary to worsening duodenalulcer. This is recommended by general surgery as he may need a more advanced procedure than we can provide at this institution. Visit Charges Inpatient E&M: 68223 Subs Hosp L3 08/09/241718 <Electronically signed by Betito Avendano DO> Betito Avendano DO Cosigner Signature (if applicable): CC: ~ Signed [facility] Work Phone: Reason for referral (narrative)No reason for referral information availableWMercy Health [facility] Work Phone: Summary Purpose Family History No Family History Records Found Relationship Condition Age at Onset Recorded Date/T shanika father Myocardial infarction Unknown mother Cerebrovascular accident (CVA) Unknown Advance Directives No Advanced Directives Records Found Advance Directive Response Recorded Date/ Time Living Will Yes May 06 7:06pm Do you have a Healthcare Power of Groundman? Yes May 06, 2024 7:06pm Name of Medical Power of Groundman May 06, 2024 7:06pm Do you have a Healthcare Power of Groundman? Yes August 05, 2024 4:27pm Name of Medical Power of Groundman Rachana Garcia August 05, 2024 4:27pm Date Activated Date Inactivated Comments 08/10/2024 1:54 AM 08/13/2024 2:28 PM Date Activated Date Inactivated Comments 08/25/2024 3:54 AM 08/25/2024 8:13 PM Date Activated Date Inactivated Comments 08/10/2024 1:54 AM 08/13/2024 2:28 PM Chief Complaint and Reason for Visit Chief Complaint Admit Date ABD PAIN May 06, 2024 5 :53pm ABD BLOATING, CONSTIPATION July 25, 2 025 8:51am GI BLEED August 05, 2024 3:43pm GI BLEED August 05, 2024 5:32pm GI BLEED August 06, 2024 12:46p m GI BLEED August 07, 2024 10:34a m GI BLEED August 07, 2024 4:39pm GI BLEED August 08, 2024 7:06am GI BLEED August 08, 2024 6:21pm GI BLEED August 09, 2024 11:29a m GI BLEED August 09, 2024 1:45pm GI BLEED August 09, 2024 5:17pm Reason for Visit Admit Date Constipation July 25, 2024 8:5 1am Abdominal pain August 05, 2024 3:43pm Acute anemia August 05, 2024 3:43pm Duodenal ulcer August 05, 2024 3:43pm Leukocytosis August 05, 2024 3:43pm Orthostatic hypotension August 05, 2024 3: 43pm Pulmonary embolism August 05, 2024 3:43pm Syncope August 05, 2024 3:43pm Upper GI bleed August 05, 2024 3:43pm Chief Complaint Admit Date ABD PAIN May 06, 2024 5 :53pm ABD BLOATING, CONSTIPATION July 25, 2 025 8:51am GI BLEED August 05, 2024 3:43pm GI BLEED August 05, 2024 5:32pm GI BLEED August 06, 2024 12:46p m GI BLEED August 07, 2024 10:34a m GI BLEED August 07, 2024 4:39pm GI BLEED August 08, 2024 7:06am GI BLEED August 08, 2024 6:21pm GI BLEED August 09, 2024 11:29a m GI BLEED August 09, 2024 1:45pm GI BLEED August 09, 2024 5:17pm Hospital FU August 22, 2024 9:03a m Reason for Visit Admit Date Constipation July 25, 2024 8:5 1am Abdominal pain August 05, 2024 3:43pm Acute anemia August 05, 2024 3:43pm Duodenal ulcer August 05, 2024 3:43pm Leukocytosis August 05, 2024 3:43pm Pulmonary embolism August 05, 2024 3:43pm Upper GI bleed August 05, 2024 3:43pm Orthostatic hypotension August 05, 2024 3: 43pm Syncope August 05, 2024 3:43pm Chief Complaint Admit Date ABD PAIN May 06, 2024 5 :53pm ABD BLOATING, CONSTIPATION July 25, 2 025 8:51am GI BLEED August 05, 2024 3:43pm GI BLEED August 05, 2024 5:32pm GI BLEED August 06, 2024 12:46p m GI BLEED August 07, 2024 10:34a m GI BLEED August 07, 2024 4:39pm GI BLEED August 08, 2024 7:06am GI BLEED August 08, 2024 6:21pm GI BLEED August 09, 2024 11:29a m GI BLEED August 09, 2024 1:45pm GI BLEED August 09, 2024 5:17pm Hospital FU August 22, 2024 9:03a m Hospital FU September 01, 2024 3:17p m Reason for Visit Admit Date Constipation July 25, 2024 8:5 1am Abdominal pain August 05, 2024 3:43pm Acute anemia August 05, 2024 3:43pm Duodenal ulcer August 05, 2024 3:43pm Leukocytosis August 05, 2024 3:43pm Pulmonary embolism August 05, 2024 3:43pm Upper GI bleed August 05, 2024 3:43pm Orthostatic hypotension August 05, 2024 3: 43pm Syncope August 05, 2024 3:43pm Abdominal pain August 22, 2024 9:03a m Duodenal ulcer August 22, 2024 9:03a m Pulmonary embolism August 22, 2024 9:03a m Additional Source Comments (unrecognized sect ion and content) No Status Records FoundNo Status Records FoundNo Status Records FoundNo Status Records Found INFORMATION SOURCE (unrecogn ized section and content) DATE CREATED AUTHOR 07/04/2022 [facility] DATE CREATED AUTHOR AUTHOR'S ORGANIZ ATION 07/07/2022 [facility] ([place]) DATE CREATED AUTHOR AUTHOR'S ORGANIZ ATION 09/07/2024 [facility] DATE CREATED AUTHOR AUTHOR'S ORGANIZ ATION 09/08/2024 [facility] Care Teams (unrecognized sec tion and content) Team Status: Active Member Role Status Dates Dr. Dante Gurrola , DO Primary Care Provider Active Team Status: Inactive Member Role Status Dates Dr. Dante Gurrola DO Primary Care Provider Active Start: May 06, 2024 End: May 06, 2024 Dr. Alf Santiago DO Attending Provider Active Start: May 06, 2024 End: May 06, 2024 Dr. Alf Santiago DO Emergency Provider Active Start: May 06, 2024 End: May 06, 2024 Team Status: Inactive Member Role Status Dates Dr. Dante Gurrola DO Primary Care Provider Active Start: July 25, 2024 End: July 25, 2024 Dr. Dante Gurrola DO Referring Provider Active Start: July 25, 2024 End: July 25, 2024 Ruba Merlos NP-C Attending Provider Active S tart: July 25, 2024 End: July 25, 2024 Team Status: Inactive Member Role Status Dates Wally Valdez MD Emergency Provider Active Star t: August 05, 2024 End: August 09, 2024 Dr. Derrick Yadav MD Admit Provider Active Start: August 05, 2024 End: August 09, 2024 Dr. Derrick Yadav MD Other Provider Active Start: August 05, 2024 End: August 09, 2024 Dr. Dante Gurrola DO Primary Care Provider Active Start: August 05, 2024 End: August 09, 2024 Dr. Brandie Spears DO Attending Provider Active S tart: August 05, 2024 End: August 09, 2024 Dr. Melonie Odell MD Other Provider Active St art: August 05, 2024 End: August 09, 2024 Dr. Hector Bhakta MD Other Provider Active Start: August 05, 2024 End: August 09, 2024 Dr. Lebron Francisco MD Other Provider Active Start : August 05, 2024 End: August 09, 2024 Team Status: Active Member Role Status Dates Wally Valdez MD Emergency Provider Active Star t: August 05, 2024 Rachana Birmingham NP, WORD PROCESSING OPERATOR-C Primary Care Provider Activ e Start: August 05, 2024 Dr. Derrick Yadav MD Admit Provider Active Start: August 05, 2024 Dr. Derrick Yadav MD Other Provider Active Start: August 05, 2024 Dr. Betito Avendano DO Attending Provider Active Start: August 05, 2024 Team Status: Active Member Role Status Dates Wally Valdez MD Emergency Provider Active Star t: August 06, 2024 Rachana Birmingham WORD PROCESSING OPERATOR, WORD PROCESSING OPERATOR-C Primary Care Provider Activ e Start: August 06, 2024 Dr. Derrick Yadav MD Admit Provider Active Start: August 06, 2024 Dr. Derrick Yadav MD Other Provider Active Start: August 06, 2024 Dr. Melonie Odell MD Attending Provider Active Start: August 06, 2024 Dr. Melonie Odell MD Other Provider Active St art: August 06, 2024 Team Status: Active Member Role Status Dates Wally Valdez MD Emergency Provider Active Star t: August 07, 2024 Dr. Derrick Yadav MD Admit Provider Active Start: August 07, 2024 Dr. Derrick Yadav MD Other Provider Active Start: August 07, 2024 Dr. Melonie Odell MD Attending Provider Active Start: August 07, 2024 Dr. Melonie Odell MD Other Provider Active St art: August 07, 2024 Dr. Dante Gurrola , Primary Care Provider Active Start: August 07, 2024 Team Status: Active Member Role Status Lynsey Valdez MD Emergency Provider Active Star t: August 07, 2024 Dr. Derrick Yadav MD Admit Provider Active Start: August 07, 2024 Dr. Derrick Yadav MD Other Provider Active Start: August 07, 2024 Dr. Melonie Odell MD Other Provider Active St art: August 07, 2024 Dr. Dante Gurrola , Primary Care Provider Active Start: August 07, 2024 Dr. Betito Avendano , DO Attending Provider Active Start: August 07, 2024 Team Status: Active Member Role Status Dates Wally Valdez MD Emergency Provider Active Star t: August 08, 2024 Dr. Derrick Yadav MD Admit Provider Active Start: August 08, 2024 Dr. Derrick Yadav MD Other Provider Active Start: August 08, 2024 Dr. Dante Gurrola , Primary Care Provider Active Start: August 08, 2024 Dr. Brandie Spears , DO Attending Provider Active S tart: August 08, 2024 Dr. Brandie Spears , DO Other Provider Active Start : August 08, 2024 Dr. Melonie Odell MD Other Provider Active St art: August 08, 2024 Team Status: Active Member Role Status Lynsey Valdez MD Emergency Provider Active Star t: August 08, 2024 Dr. Derrick Yadav MD Admit Provider Active Start: August 08, 2024 Dr. Derrick Yadav MD Other Provider Active Start: August 08, 2024 Dr. Dante Gurrola DO Primary Care Provider Active Start: August 08, 2024 Dr. Brandie Spears , DO Other Provider Active Start : August 08, 2024 Dr. Melonie Odell MD Other Provider Active St art: August 08, 2024 Dr. Betito Avendnao , DO Attending Provider Active Start: August 08, 2024 Team Status: Active Member Role Status Lynsey Valdez MD Emergency Provider Active Star t: August 09, 2024 Dr. Derrick Yadav MD Admit Provider Active Start: August 09, 2024 Dr. Derrick Yadav MD Other Provider Active Start: August 09, 2024 Dr. Dante Gurrola , Primary Care Provider Active Start: August 09, 2024 Dr. Brandie Spears , DO Other Provider Active Start : August 09, 2024 Dr. Melonie Odell MD Other Provider Active St art: August 09, 2024 Dr. Hector Bhakta MD Other Provider Active Start: August 09, 2024 Dr. Lebron Francisco MD Attending Provider Active S tart: August 09, 2024 Dr. Lebron Francisco MD Other Provider Active Start : August 09, 2024 Team Status: Active Member Role Status Lynsey Valdez MD Emergency Provider Active Star t: August 09, 2024 Dr. Derrick Yadav MD Admit Provider Active Start: August 09, 2024 Dr. Derrick Yadav MD Other Provider Active Start: August 09, 2024 Dr. Dante Gurrola , DO Primary Care Provider Active Start: August 09, 2024 Dr. Brandie Spears , DO Attending Provider Active S tart: August 09, 2024 Dr. Brandie Spears , DO Other Provider Active Start : August 09, 2024 Dr. Melonie Odell MD Other Provider Active St art: August 09, 2024 Dr. Hector Bhakta MD Other Provider Active Start: August 09, 2024 Dr. Lebron Francisco MD Other Provider Active Start : August 09, 2024 Team Status: Active Member Role Status Dates Walyl Valdez MD Emergency Provider Active Star t: August 09, 2024 Dr. Derrick Yadav MD Admit Provider Active Start: August 09, 2024 Dr. Derrick Yadav MD Other Provider Active Start: August 09, 2024 Dr. Dante Gurrola DO Primary Care Provider Active Start: August 09, 2024 Dr. Brandie Spears DO Other Provider Active Start : August 09, 2024 Dr. Melonie Odell MD Other Provider Active St art: August 09, 2024 Dr. Hector Bhakta MD Other Provider Active Start: August 09, 2024 Dr. Lebron Francisco MD Other Provider Active Start : August 09, 2024 Dr. Betito Avendano DO Attending Provider Active Start: August 09, 2024 Perl Developer Relationship Specialty Start Date End Date Dante Gurrola [address] [place] [address] PCP - General Internal Medicine 08/17/24 Team Status: Inactive Member Role Status Dates Wally Valdez MD Emergency Provider Active Star t: August 05, 2024 End: August 09, 2024 Dr. Derrick Yadav MD Admit Provider Active Start: August 05, 2024 End: August 09, 2024 Dr. Derrick Yadav MD Other Provider Active Start: August 05, 2024 End: August 09, 2024 Dr. Dante Gurrola DO Primary Care Provider Active Start: August 05, 2024 End: August 09, 2024 Dr. Melonie Odell MD Other Provider Active St art: August 05, 2024 End: August 09, 2024 Dr. Hector Bhakta MD Other Provider Active Start: August 05, 2024 End: August 09, 2024 Dr. Lebron Francisco MD Other Provider Active Start : August 05, 2024 End: August 09, 2024 Dr. Brandie Spears , DO Attending Provider Active S tart: August 05, 2024 End: August 09, 2024 Team Status: Active Member Role Status Dates Wally Valdez MD Emergency Provider Active Star t: August 05, 2024 Rachana Birmingham WORD PROCESSING OPERATOR, WORD PROCESSING OPERATOR-C Primary Care Provider Activ e Start: August 05, 2024 Dr. Derrick Yadav MD Admit Provider Active Start: August 05, 2024 Dr. Derrick Yadav MD Referring Provider Active Start: August 05, 2024 Dr. Derrick Yadav MD Other Provider Active Start: August 05, 2024 Dr. Betito Avendano , Attending Provider Active Start: August 05, 2024 Team Status: Active Member Role Status Dates Wally Valdez MD Emergency Provider Active Star t: August 07, 2024 Dr. Derrick Yadav MD Admit Provider Active Start: August 07, 2024 Dr. Derrick Yadav MD Other Provider Active Start: August 07, 2024 Dr. Melonie Odell MD Other Provider Active St art: August 07, 2024 Dr. Dante Gurrola , Primary Care Provider Active Start: August 07, 2024 Dr. Betito Avendano , Attending Provider Active Start: August 07, 2024 Dr. Brandie Spears , Referring Provider Active S tart: August 07, 2024 Team Status: Active Member Role Status Dates Wally Valdez MD Emergency Provider Active Star t: August 08, 2024 Dr. Derrick Yadav MD Admit Provider Active Start: August 08, 2024 Dr. Derrick Yadav MD Other Provider Active Start: August 08, 2024 Dr. Dante Gurrola , DO Primary Care Provider Active Start: August 08, 2024 Dr. Brandie Spears , DO Referring Provider Active S tart: August 08, 2024 Dr. Brandie Spears , DO Other Provider Active Start : August 08, 2024 Dr. Melonie Odell MD Other Provider Active St art: August 08, 2024 Dr. Betito Avendano , Attending Provider Active Start: August 08, 2024 Team Status: Active Member Role Status Dates Wally Valdez MD Emergency Provider Active Star t: August 09, 2024 Dr. Derrick Yadav MD Admit Provider Active Start: August 09, 2024 Dr. Derrick Yadav MD Other Provider Active Start: August 09, 2024 Dr. Dante Gurrola DO Primary Care Provider Active Start: August 09, 2024 Dr. Brandie Spears DO Referring Provider Active S tart: August 09, 2024 Dr. Brandie Spears , Other Provider Active Start : August 09, 2024 Dr. Melonie Odell MD Other Provider Active St art: August 09, 2024 Dr. Hector Bhakta MD Other Provider Active Start: August 09, 2024 Dr. Lebron Francisco MD Other Provider Active Start : August 09, 2024 Dr. Betito Avendano DO Attending Provider Active Start: August 09, 2024 Team Status: Inactive Member Role Status Dates Dr. Dante Gurrola DO Primary Care Provider Active Start: August 22, 2024 End: August 22, 2024 Dr. Dante Gurrola DO Referring Provider Active Start: August 22, 2024 End: August 22, 2024 Dr. Betito Avendano DO Attending Provider Active Start: August 22, 2024 End: August 22, 2024 Perl Developer Relationship Specialty Start Date End Date Dante Gurrola [address] [place] [address] PCP - General Internal Medicine 08/17/24 Perl Developer Relationship Specialty Start Date End Date Dante Gurrola [address] [place] [address] PCP - General Internal Medicine 08/17/24 Team Status: Inactive Member Role Status Dates Dr. Dante Gurrola DO Primary Care Provider Active Start: September 01, 2024 End: September 01, 2024 Dr. Dante Gurrola DO Referring Provider Active Start: September 01, 2024 End: September 01, 2024 MADDIE Clayton Attending Provider Active Star t: September 01, 2024 End: September 01, 2024 Reason for Visit (unrecogniz ed section and content) Reason Comments Shortness of Breath Specialty Diagnoses / Procedures Referred By Contac t Referred To Contact Diagnoses Duodenal perforation (CMS/HCC) (HCC) perforated viscus Procedures . Zara Spann DO [address] [facility] [address] [place] [address] Phone: tel: fax: [facility] [address] [place] [id number] Phone: tel: Referral ID Status Reason Start Date Expiration Date Visits Re quested Visits Authorized [id number] 1 1 Reason Onset Date Comments Other 08/17/2024 Reason Comments Post-op ALS P/O DIAG LAP, LA P WEDGE RESECTION OF STOMACH, EGD ON 08/10/2024 Reason Onset Date Comments Post-op Problem 08/24/2024 Scheduled Active and Recently Administ ered Medications (unrecognized section and content) Medication Order 08/11/2024 08/12/2024 08/13/2024 acetaminophen (Tylenol) tablet 650 mg 650 mg, Oral, Every 6 hours, First dose on Leigh Ann 08/10/24 at 0200 0217 (Given - Provider: Adrianna Sharp RN)0836 (Given - Provider: Miles Riggins RN)1441 (Not Given - Provider: Miles Riggins RN - Reason: Patient/family refused)2150 (Not Given - Provider: Yen Blackwell RN - Reason: Patient/family refused)2202 (Given - Provider: Yen Blackwell RN) 0400 (Not Given - Provider: Yen Blackwell RN - Reason: Patient/family refused)1149 (Not Given - Provider: Mervat Lala RN - Reason: Patient/family refused)1649 (Not Given - Provider: Mervat Lala RN - Reason: Patient/family refused)2103 (Given - Provider: Yen Blackwell RN) 0310 (Not Given - Provider: Yen Blackwell RN - Reason: Patient/family refused)0931 (Given - Provider: Consuelo Patton RN) diatrizoate meglumine-sodium (Gastrografin) 66-10 % solution 30 mL (COMPLETED) 30 mL, Oral, Once, On Wed08/11/24 at 1045, For 1 dose, Administered at the time of the exam. 1044 (Given - Provider: Ruba Kenny, RT (R)(CT)) enoxaparin (Lovenox) syringe 40 mg 40 mg, SubCUTAneous, Every 24 hours scheduled (Daily), First dose on Leigh Ann 08/10/24 at 0900, Indication of Use: Prophylaxis-DVT/PE, Indications: Prophylaxis of Venous Thromboembolism 0837 (Given - Provider: Miles Riggins RN) 0919 (Canceled Entry - Provider: Mervat Lala RN)1920 (Given - Provider: Mervat Lala RN) ipratropium-albuterol (Duo-Neb) 0.5-2.5 mg/3 mL nebulizer solution 3 mL 3 mL, Nebulization, Every 8 hours, First dose (after last modification) on 08/12/24 at 0730 1002 (Not Given - Provider: Zaid Whitley RRT - Reason: Patient not available - Comment: patient not in room)1719 (Given - Provider: Zaid Whitley, DARIA)2116 (Given - Provider: Mayank Hoyos, DARIA)2330 (Canceled Entry - Provider: Mayank Hoyos RRT) 0730 (Canceled Entry - Provider: Automatic Discharge Provider - Comment: Automatically canceled at discontinue of medication order) melatonin tablet 3 mg 3 mg, Oral, Nightly, First dose on Wed08/13/24 at 0000 2353 (Given - Provider: Yen Blackwell RN) pantoprazole (ProtoNix) 40 mg in sodium chloride (PF) 0.9 % 10 mL injection(Linked Group 1) 40 mg, IntraVENous, Administer over 2 Minutes, Nightly, First dose on Wed08/09/24 at 2100, Give only if unable to tolerate po. 2155 (Given - Provider: Yen Blackwell RN) 2103 (Given - Provider: Yen Blackwell RN) potassium chloride 40 mEq in NS 500 mL IVPB (premix) (COMPLETED) 40 mEq, IntraVENous, at 125 mL/hr, Administer over 4 Hours, Once, On 08/12/24 at 0830, For 1 dose, Max infusion rate = 10 mEq/hr 0918 (New Bag - Provider: Mervat Lala, RN)1343 (Stopped - Provider: Mervat Lala, TOBIAS) Continuous Medication Order 08/11/2024 08/12/2024 08/13/2024 lactated Ringer's (LR) infusion 75 mL/hr, IntraVENous, Continuous, Starting on Leigh Ann 08/10/24 at 0200 2155 (New Bag - Provider: Yen Blackwell RN) 0750 (Rate/Dose Change - Provider: Mervat Lala RN - Comment: new bag) PRN Medication Order 08/11/2024 08/12/2024 08/13/2024 HYDROmorphone (Dilaudid) injection 0.5 mg 0.5 mg, IntraVENous, Every 3 hours PRN, breakthrough pain, Starting on Leigh Ann 08/10/24 at 0154, If oral and IV narcotics ordered, use oral first and only use IV if oral is ineffective or cannot take oral. Do Not give oral and IV within 1 hour of each other unless specifically ordered. iopamidol (Isovue-370) 76 % injection 75 mL (COMPLETED) 75 mL, IntraVENous, IMG once PRN, contrast, Starting on Wed08/11/24 at 1457, For 1 dose 1458 (Given - Provider: Michaela Eid) naloxone (Narcan) injection 0.4 mg 0.4 mg, IntraVENous, Every 5 min PRN, opioid reversal, respiratory depression, Starting on Leigh Ann 08/10/24 at 0155, +++ For RR <10, pinpoint pupils, over sedation for opioid reversal - MUST notify content producer provider immediately after first dose, may give IM or SQ if no IV access +++ ondansetron (Zofran) injection 4 mg(Linked Group 2) 4 mg, IntraVENous, Every 6 hours PRN, nausea, vomiting, Starting on Leigh Ann 08/10/24 at 0154, 1st Line. Give IV if patient is unable to take orally. If inadequate response within 60 minutes, proceed to next-line agent or contact provider if no further options ordered. ondansetron ODT (Zofran-ODT) disintegrating tablet 4 mg(Linked Group 2) 4 mg, Oral, Every 8 hours PRN, nausea, vomiting, Starting on Leigh Ann 08/10/24 at 0154, 1st Line. If inadequate response within 60 minutes, proceed to next-line agent or contact provider if no further options ordered. Patient should allow tablet to dissolve on tongue. Do not remove from blister pack until just before administering. oxyCODONE (Roxicodone) immediate release tablet 10 mg(Linked Group 3) 10 mg, Oral, Every 4 hours PRN, severe pain (7-10), Starting on Leigh Ann 08/10/24 at 0154 oxyCODONE (Roxicodone) immediate release tablet 5 mg(Linked Group 3) 5 mg, Oral, Every 4 hours PRN, moderate pain (4-6), Starting on Leigh Ann 08/10/24 at 0154 Linked Groups Order Group 1: pantoprazole (ProtoNix) EC tablet 40 mg (CANCELED) 40 mg, Oral, Nightly, First dose on Wed08/09/24 at 2100, Do not crush, chew, or split. Or pantoprazole (ProtoNix) 40 mg in sodium chloride (PF) 0.9 % 10 mL injectionJump to med 40 mg, IntraVENous, Administer over 2 Minutes, Nightly, First dose on Wed08/09/24 at 2100, Give only if unable to tolerate po. Group 2: ondansetron ODT (Zofran-ODT) disintegrating tablet 4 mgJump to med 4 mg, Oral, Every 8 hours PRN, nausea, vomiting, Starting on Leigh Ann 08/10/24 at 0154, 1st Line. If inadequate response within 60 minutes, proceed to next-line agent or contact provider if no further options ordered. Patient should allow tablet to dissolve on tongue. Do not remove from blister pack until just before administering. Or ondansetron (Zofran) injection 4 mgJump to med 4 mg, IntraVENous, Every 6 hours PRN, nausea, vomiting, Starting on Leigh Ann 08/10/24 at 0154, 1st Line. Give IV if patient is unable to take orally. If inadequate response within 60 minutes, proceed to next-line agent or contact provider if no further options ordered. Group 3: oxyCODONE (Roxicodone) immediate release tablet 5 mgJump to med 5 mg, Oral, Every 4 hours PRN, moderate pain (4-6), Starting on Leigh Ann 08/10/24 at 0154 Or oxyCODONE (Roxicodone) immediate release tablet 10 mgJump to med 10 mg, Oral, Every 4 hours PRN, severe pain (7-10), Starting on Leigh Ann 08/10/24 at 0154 FOR RECORDS PERTAINING TO PATIENTS WHO ARE OR HAVE BEEN ENROLLED IN A CHEMICAL DEPENDENCY/SUBSTANCEABUSE PROGRAM, SOME INFORMATION MAY BE OMITTED. This clinical summary was aggregated from multiple sources. Caution should be exercised in using it in the provision of clinical care. This summary normalizes information from multiple sources, and as a consequence, information in this document may materially change the coding, format and clinical context of patient data. In addition, data may be omitted in some cases. CLINICAL DECISIONS SHOULD BE BASED ON THE PRIMARY CLINICAL RECORDS. [employer] [facility]. provides no warranty or guarantee of the accuracy or completeness of information in this document.
[2024-09-09] MEDS: 0.9% Normal Saline (1000mL) 1,000 ML 1000 ML IV (07:20)
--- NOTE | 2024-09-09 07:27 | EX.ED.CRITCA ---
HPI History of Present Illness Chief Complaint: Alt LOC Detail of Chief Complaint: GI bleed, hypotension and altered mental status Informant: patient, spouse/S.O. and family Onset/Context/Timing Onset: Today Context: Sudden Onset Timing: Intermittent Quality: Vomiting blood. On apixaban for DVT Location: Upper GI bleed Current Severity: Severe Maximum Severity: Severe Worsened by: Took apixaban yesterday Relieved by: Nothing Associated Symptoms Associated Symptoms: abdominal pain, chest pain, chills, cough, fever, vomiting, diarrhea, palpitations, suicidal thoughts and other Narrative Narrative: Patient is a 69-year-old male. He has history of peptic ulcer disease with apparent perforation that was repaired laparoscopically by Dr. Michael Qureshi at [facility]. He was seen by GI. Apparently the stent that was placed by Dr. Avendano had migrated and there was thought of removing it. They did not remove it since he took a dose of apixaban. Cording to family he did not take apixaban or Wednesday morning. He did take a dose last evening. He is on apixaban because he was recently diagnosed with DVT. Reviewing Dr. Avendano's office note from August 22 indicates patient had recent pulmonary embolus subsegmental. Without acute cor pulmonale. Procedure note performed by Dr. Avendano on August 07 was reviewed. Patient was noted to have normal esophagus and normal stomach. Oozing was noted from multiple duodenal ulcers with visible vessels noted. These were injected and treated with argon plasma coagulation (APC). Prosthesis placed and clips were placed. Patient also had small intestinal endoscopy and enteroscopy beyond second portion of the duodenum not including the ileum with trans endoscopic stent placement including predilatation. Patient has been up at [facility]. Apparently after multiple CAT scans they determined that he had a perforation in the posterior wall of his stomach that was adherent to his liver. He had laparoscopic surgery by Dr. Michael Qureshi. He also was found to have a DVT. He is presently on apixaban. This morning every time patient attempted to stand he had near syncope versus 1 episode of syncope. He has vomited blood per family. There was noted to be blood on his bedoya. There was discussion regarding NG because he did not tolerate it well last time. Explained to the patient and family that NG was placed as he was actively bleeding 1 to determine if we need to reverse his apixaban. At that time I was informed that he only has taken 1 dose in the last 48 hours and that was last evening. He did not take his dose this morning. And to determine if he is stable to stay here or require transfer back to [facility]. Prior similar symptoms: Yes Recent Illness/Hospitalization: Yes [facility] Medical History History of DVT (deep vein thrombosis) Mitral valve prolapse unable to obtain (Documented in the HPI narrative.) Home Medications Medication Instructions Recorded Last Taken Type multivitamin 1 tab PO DAILY supplement 01/22/20 08/05/24 History omega-3 fatty acids 1,000 mg 2,000 mg PO BID supplement 01/22/20 08/05/24 History capsule apixaban 5 mg tablet (Eliquis) 5 mg PO BID 09/01/24 Unknown History oxycodone-acetaminophen 5 mg-325 1 tab PO Q6H PRN pain 09/09/24 Unknown History mg tablet (Percocet) Allergy/AdvReac Type Severity Reaction Status Date / Time Penicillins AdvReac PT UNABLE Verified 09/09/24 06:30 TO RESPOND-NEEDS F/U Family History Father Myocardial infarction Mother CVA (cerebral vascular accident) Surgical History H/O shoulder surgery History of repair of hiatal hernia Social History Smoking Status: Never smoker alcohol intake: never ROS ROS ED Constitutional Constitutional ED: Denies chills, fever(s), subjective, sweats or weight loss Eyes Eyes: Denies blurry vision or change in vision ENT ENT ED: Denies ear pain or rhinorrhea Cardiovascular Cardiovascular: Denies chest pain, orthopnea, palpitations or paroxysmal nocturnal dyspnea Respiratory/Chest Respiratory/Chest: Denies cough, dyspnea, dyspnea on exertion, orthopnea or paroxysmal nocturnal dyspnea Gastrointestinal Gastrointestinal: Reports nausea, vomiting and other Details: Patient not had a bowel movement in 2 days. ; Denies abdominal pain Genitourinary Genitourinary ED: Denies dysuria, hematuria or urinary frequency Musculoskeletal Musculoskeletal: Denies arthralgias or myalgias Integumentary Denies abscess or rash Neurologic Neurologic: Denies headache(s), paresthesias or weakness Psychiatric Psychiatric: Denies anxiety or depression Endocrine Endocrinology: Denies polydipsia, polyphagia or polyuria Hematologic/Lymphatic Hematologic/Lymphatic: Reports easy bleeding and easy bruising EXAM Physical Exam Const Vital Signs: 09/09/24 06:30 09/09/24 07:34 09/09/24 08:00 Temperature 97.5 F L Temperature Source Oral Pulse Rate 68 73 62 Respiratory Rate 20 H 16 16 Blood Pressure 112/65 125/73 H 113/70 Blood Pressure Mean 80 90 84 Blood Pressure Source Blood Pressure Position Blood Pressure Location Pulse Ox 99 95 100 Oxygen Delivery Method Nasal Cannula Nasal Cannula Oxygen Flow Rate (L/min) 2 2 09/09/24 08:01 09/09/24 08:38 Temperature 97.7 F L 97.7 F L Temperature Source Temporal Temporal Pulse Rate 74 72 Respiratory Rate 17 17 Blood Pressure 113/70 127/72 H Blood Pressure Mean 84 90 Blood Pressure Source Monitor Blood Pressure Position Semi-Fowlers Blood Pressure Location Left Arm Pulse Ox 100 100 Oxygen Delivery Method Room Air Nasal Cannula Oxygen Flow Rate (L/min) 1.5 Positive well nourished and well developed Constitutional Narrative: Patient appears pale. Blood pressure after liter of fluids has improved. He was hypotensive per paramedics. Patient's blood pressure has been trending down since he has been here. General Appearance ED: well developed and pallor HEENT normocephalic and atraumatic Eyes PERRL and EOMs intact bilaterally General Eye ED: Yes pale conjunctiva; Negative for scleral icterus Neck full ROM, no lymphadenopathy, supple and no JVD Resp Resp Narrative: Lungs are clear to auscultation. Breath sounds were noted bilaterally. Cardio regular rate, regular rhythm, S1 normal heart sound, S2 normal heart sound and no murmurs GI non-tender, non-distended and no masses GI Narrative: Patient had episode of vomiting prior to placement of NG and it is a dark red consistent with acute GI bleed. Auscultation: normoactive bowel sounds Palpation: soft Back/Spine no CVA tenderness Neuro oriented x3 and CN's II-XII intact bilaterally Neuro Narrative: According to family and he was not very responsive at home presume this is due to poor perfusion. Sensory Exam: sensory level loss detected Psych mental status grossly normal Skin General Skin Exam: jaundice and pallor Lesions: no lesions Rashes: no rashes MDM MDM MDM Narrative Medical decision making narrative: In light of patient's complicated past history and reported vomiting of blood and the fact that he is on anticoagulant NG was ordered to see if he still actively bleeding. He was typed and screened. NG was not placed because he vomited and there is evidence that he is still actively bleeding. Patient did receive a liter of normal saline. He was typed and screened. EKG was obtained to evaluate for cardiac ischemia. BMP was obtained assess electrolytes CO2 anion gap. Lactate to assess if patient has poor perfusion which clinically he does and would support that he has hemorrhagic shock due to his GI bleed. Dr. Avendano was paged. In light of patient's complex history the fact that he had recent procedures at [facility] with a perforated ulcer that was repaired surgically recommended transfer back to [facility]. In light of this we will have paralegal secretary contact [facility] and arrange for urgent transfer. In light of patient's recent diagnosis of multi segmental PE and DVT if he remains hemodynamically stable will not reverse his anticoagulant. If he becomes unstable will reverse. Furthermore if he develops maroon or bright red blood per rectum which would indicate a massive GI bleed he will be reversed. This was in discussion with the fur finisher seamstress at [facility]. Lab Data Attestation: I reviewed the patient's lab results. Lab results narrative: H&H is 6.6 and 20.8. Platelet count is 217,000. CBC is unremarkable otherwise. Basic metabolic panel visit elevated BUN/creatinine ratio of 33:1. Glucose is elevated 177 with a normal CO2 anion gap. Lactate was normal at 1.7. Labs: Laboratory Results - last 24 hr 09/09/24 07:18 WBC 10.6 RBC 2.27 L Hgb 6.6 L Hct 20.8 L MCV 91.6 MCH 29.1 MCHC 31.7 L RDW Std Deviation 51.1 H RDW Coeff of Edna 15.5 H Plt Count 217 MPV 9.5 Immature Gran % (Auto) 0.600 Neut % (Auto) 87.0 H Lymph % (Auto) 6.9 L Grady % (Auto) 3.8 Eos % (Auto) 1.6 Baso % (Auto) 0.1 Absolute Neuts (auto) 9.2 H Absolute Lymphs (auto) 0.73 L Nucleated RBC % 0 Sodium 141 Potassium 4.6 Chloride 108 Carbon Dioxide 25.7 Anion Gap 7 BUN 24 H Creatinine 0.72 Estim Creat Clear Calc 88.72 Est GFR (MDRD) Non-Af 98 BUN/Creatinine Ratio 32.8 H Glucose 177 H Lactic Acid 1.7 Calcium 7.4 L Blood Type O POSITIVE Antibody Screen NEGATIVE Crossmatch See Detail Patient received 1 unit of trauma blood. Radiography Diagnostic Testing: CTA was not read prior to patient's transfer via helicopter to [facility]. EKG Initial EKG: Attestation: I personally reviewed and interpreted this EKG as follows: Interpretation: Sinus Rhythm (Rate is 64. He has sinus arrhythmia. Parables 134 ms. QS duration 88 ms. QT duration 436 ms. [place] is normal. In my opinion the EKG is normal) Treatment and Re-Evaluation Narrative: Physicians was contacted. The informed the charge nurse that it would be minimum of 3 hours before transport. In light of patient's critical condition he will be flown. [place] is contacting helicopter service. 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 He requested a CT AP with images sent to [facility]. He will talk with the surgical ICU attending. Patient is made aware as well as family.) and Arranging Admission or Transfer (Back ED transfer nurse for [facility]) Discharge Plan Triage Chief Complaint: Alt LOC ED Provider: Corie Judgeo Dx/Rx/DC Orders Clinical Impression: Acute upper gastrointestinal bleeding, Signs and symptoms of anemia, Symptomatic anemia, Anemia due to acute blood loss, Orthostatic hypotension, Anticoagulant long-term use, Pulmonary embolism, DVT (deep venous thrombosis), S/P IVC filter Prescriptions: No Action Eliquis 5 mg tablet 5 mg PO BID multivitamin 1 EACH tablet 1 tab PO DAILY omega-3 fatty acids 1,000 MG capsule 2,000 mg PO BID oxycodone-acetaminophen [Percocet] 5-325 mg tablet 1 tab PO Q6H PRN (Reason: pain) Primary Care Provider: Dante Gurrola Referrals: Dante Gurrola DO [Primary Care Provider] - Print Language: Tamazight Disposition Disposition: Acute Care Hospital Discharge Location: [facility]
[2024-09-09 07:30] LABS: Absolute Lymphocyte Count 0.73 X10^3/uL (0.83-4.51); Absolute Neutrophil Count 9.2 X10^3/uL (2.0-7.7); Basophil# 0.01 X10^3/uL; Basophil% 0.1 % (0-1); Eosinophil# 0.17 X10^3/uL; Eosinophils% 1.6 % (0-5); Hematocrit 20.8 % (40-54); Hemoglobin 6.6 g/dL (13.0-16.5); Lymphocyte # 0.73 X10^3/ul (0.83-4.51); Lymphocyte % 6.9 % (19-41); Mean Corp Hgb Conc 31.7 g/dL (32-36); Mean Corpuscular Hgb 29.1 pg (27.0-32.0); Mean Corpuscular Volume 91.6 fL (80-94); Mean Platelet Vol. 9.5 fl (6.2-12.0); Monocyte% 3.8 % (0-10); NRBC Flagged by Analyzer 0 % (0-5); Neutrophil # 9.23 X10^3/uL (2.7-7.7); Platelet Count 217 K/mm3 (150-450); RBC Distribution Width CV 15.5 % (11.6-14.6); RBC Distribution Width SD 51.1 fl (35.1-43.9); Red Blood Count 2.27 M/mm3 (4.6-6.2); White Blood Count 10.6 K/mm3 (4.4-11.0)
[2024-09-09] MEDS: Ondansetron 4 MG/2 ML Vial IV (07:30)
[2024-09-09 07:34] VITALS: BP 125/73; PULSE 73; RESP 16; O2SAT 95
--- NOTE | 2024-09-09 07:45 | EKG12_ITS ---
Test Reason : Blood Pressure : */* mmHG Vent. Rate : 64 BPM Atrial Rate : 64 BPM P-R Int : 134 ms QRS Dur : 88 ms QT Int : 436 ms P-R-T Axes : 54 -8 8 degrees QTcB Int : 449 ms Normal sinus rhythm with sinus arrhythmia Nonspecific ST abnormality Abnormal ECG Confirmed by CHIDI OWENS, IWONA ([id number]), editor city WESLEY ASTORGA ([id number]) on 09/11/2024 6:12:15 AM Referred By: Confirmed By: IWONA MURILLO MD
[2024-09-09 07:55] LABS: Lactic Acid 1.7 mmol/L (0.0-2.0)
[2024-09-09 07:56] LABS: Anion Gap 7 (5-15); BUN 24 mg/dL (4-19); BUN/Creat Ratio 32.8 RATIO (10-20); Calcium,Total 7.4 mg/dL (7.6-11.0); Carbon Dioxide 25.7 mmol/L (21.0-32.0); Chloride 108 mmol/L (98-108); Creatinine, Serum 0.72 mg/dL (0.70-1.20); EST Glomerular Filtration Rate 98 (>60); Estimated Creatinine Clearance 88.72 ml/min (50-250); Glucose 177 mg/dL (70-99); Potassium 4.6 mmol/L (3.3-5.1); Sodium Level 141 mmol/L (133-145)
[2024-09-09 08:00] VITALS: BP 113/70; PULSE 62; RESP 16; O2SAT 100
--- NOTE | 2024-09-09 08:00 | CT_ITS ---
PROCEDURE: CTA ABD/PELVIS W/WO CONTRAST 09/09/2024 REASON FOR EXAM: HYPOTENSION AND ACTIVE GI BLEED TECHNIQUE: CTA imaging of the abdomen and pelvis with intravenous contrast. Multiplanar and multisequence images were obtained. CONTRAST: Omnipaque 350 VOLUME: 100 mL One or more dose reduction techniques were used (e.g., Automated exposure control, adjustment of the mA and/or kV according to patient size, use of iterative reconstruction technique). COMPARISON: CT abdomen and pelvis 08/09/2024 and 08/07/2024 FINDINGS: Aorta: Abdominal aorta is normal in size. Minimal atherosclerotic plaque. No evidence of aneurysm or dissection. Iliac Arteries: Iliac arteries are normal in size with no significant plaque or stenosis. Celiac: Normal. SMA: Normal. OLEKSANDR : Normal. Right Renal: Single patent right renal artery. Left Renal: Single patent left Other: IVC stent is noted. Lung bases: Patchy opacities in the right lung base, compatible with atelectasis. Liver: Homogeneous attenuation. 18 mm left lobe simple cyst. Bile ducts: No intrahepatic or extrahepatic bile duct dilation. Gallbladder: No calcified gallstones. No gallbladder wall thickening or pericholecystic fluid. Spleen: Within normal limits. Pancreas: Within normal limits Adrenal glands: Within normal limits Kidneys/Ureters: Symmetric bilateral renal enhancement. No hydronephrosis or renal calculi. No hydroureter. 30 mm exophytic right upper pole simple cyst. Bladder: Large amount of contrast within the urinary bladder. Reproductive: Mild prostatomegaly. Lymph nodes: No enlarged lymph nodes Bowel: Mild wall thickening and hyperemia involving the gastric pylorus. Otherwise, the stomach is unremarkable. No bowel dilation. Interval migration previously noted gastroduodenal stent, now in the distal transverse colon, the splenic flexure (series 601 image 22, series 2, image 49). No bowel dilation. No evidence of active GI bleed. Large colonic stool. Appendix is normal. Peritoneum: No free air, ascites, or fluid collection. Retroperitoneum: Within normal limits. Abdominal wall: Within normal limits. Bones: No significant multilevel spondylosis. Maintained vertebral body heights CT/CTA Abd/Pelvis W/WO Contrast IMPRESSION: 1. No evidence of acute contrast extravasation, to suggest gastrointestinal ble ed. 2. No evidence of acute aortic dissection, thrombosis or pseudoaneurysm formati on. 3. Interval migration previously noted gastroduodenal stent, now within the dis amira transverse colon of the splenic flexure. 4. Other findings as described above. Reading Location: [facility]
[2024-09-09 08:01] VITALS: BP 113/70; PULSE 74; RESP 17; TEMP 36.5; O2SAT 100
[2024-09-09 08:38] VITALS: BP 127/72; PULSE 72; RESP 17; TEMP 36.5; O2SAT 100
--- NOTE | 2024-09-09 09:22 | ED.RN ---
THIS NURSE CALLED REPORT TO ICU [phone] TO [id number] ICU.
== END 2024-09-09 09:23 | disposition short-term general hospital (02) ==
PROVIDERS: Emergency Provider Emergency Medicine; PCP Family Medicine; Visit Provider Emergency Medicine
DX: K92.0 Hematemesis (principal); I82.409 Acute embolism and thrombosis of unspecified deep veins of unspecified lower extremity; I26.93 Single subsegmental thrombotic pulmonary embolism without acute cor pulmonale; D62 Acute posthemorrhagic anemia; I95.1 Orthostatic hypotension; Z95.828 Presence of other vascular implants and grafts; Z79.01 Long term (current) use of 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
CPT/HCPCS: 74174; 80048; 83605; 85025; 86850; 86900; 86901; 86920; 93005; 96361; 96374; 99285; P9016; Q9967; A4216; J1938; J2405

== ENCOUNTER 2025-01-01 05:26 | Day surgery (SDC) | payer SELFPAY, OTHER ==
--- OUTSIDE RECORDS SUMMARY | 2024-09-28 09:04 | XMS RPT_ITS ---
Author Name Auto Generated Organization OHIP Care Team Providers Care Material Coordinator Name Role Phone ZARA SPANN Attending Unavailable LISA, DANTE Primary Care Unavailable ZARA SPANN Attending Unavailable LISA, DANTE Primary Care Unavailable LISA, DANTE Primary Care Unavailable VALERIA NEGRON Admitting Unavailable VALERIA NEGRON Attending Unavailable JOHN URENA Referring Unavailable LISA, DANTE Primary Care Unavailable KIERAN PETERSON Admitting Unavailable JOSE PECK Attending Unavailable NONE, PCP Referring Unavailable ZARA SPANN Attending Unavailable ZARA SPANN Admitting Unavailable LISA, DANTE Primary Care Unavailable LAINE MOYA Attending Unavailable PROVIDER, UNKNOWN Attending Unavailable PROVIDER, UNKNOWN Admitting Unavailable PROBLEMS DATE TYPE CONDITION / CODE ATTENDING STATUS [facility] 09/14/2024 Admitting Diagnosis Duodenal ulcer, unspecified as acute or chronic, without hemorrhage or perforation / K26.9(ICD-10) ZARA SPANN [facility] 08/09/2024 Admitting Diagnosis Other specified disorders of peritoneum / K66.8(ICD-10) MARIA INES [facility] 09/09/2024 Admitting Diagnosis Hematemesis / K92.0(ICD-10) LIV [facility] 08/09/2024 Admitting Diagnosis Perforation of intestine (nontraumatic) (HCC) / K63.1(ICD-10) LIV [facility] 08/25/2024 Admitting Diagnosis Unspecified abdominal pain / R10.9(ICD-10) LAINE MOYA [facility] 08/25/2024 Admitting Diagnosis Left lower quadrant pain / R10.32(ICD-10) JAMIL VALERIA [facility] 08/24/2024 Admitting Diagnosis Shortness of breath / R06.02(ICD-10) JAMIL VALERIA [facility] 08/24/2024 Admitting Diagnosis Pain in right leg / M79.604(ICD-10) VALERIA NEGRON [facility] 08/24/2024 Admitting Diagnosis Encounter for other specified surgical aftercare / Z48.89(ICD-10) ZARA SPANN [facility] PROCEDURES No Procedure Records Found RESULTS 36 Observed: 09/29/2024 9:05 AM Status: COMPLETED Source: [facility] LM for patient to notify him that although we sent a referral to [facility] they are extremely backed up with referrals, I let him know that he could go back to his previous GI dr to have scope done in 3 months or he can go to his PCP to ask for a referral to see a new Budget Director in hopes to get this done sooner. DP 29 Observed: 09/28/2024 9:30 AM Status: COMPLETED Source: [facility] Addended by: KIERAN HARDIN n: 09/28/2024 10:03 AM Modules accepted: Orders OFFICE VISIT Observed: 09/28/2024 9:30 AM Status: COMPLETED Source: [facility] [id number] Laine Garcia 1954 M Date Provider Department Center 09/28/2024 [id number], MARK [facility] ALS None Family History Problem Relation Age of Onset No Known Problems Mother No Known Problems Father No Known Problems Other Family Status - Relation Status Age at Mother Father Other Level of Service:[id number] [place] POSTOP FOLLOW UP VISIT RELATED TO ORIGINAL PX Reason for Visit and Comments: Follow-up [[id number]] - ALS 6 WK FU S/P DIAG LAP, LAP WEDGE RESECTION OF STOMACH, EGD ON 08/10/2024 PROGRESS NOTE Observed: 09/28/2024 9:30 AM Status: COMPLETED Source: [facility] - Surgery Patient Name: Laine Garcia Date: 09/28/24 S: Laine Garcia follows up for a post operative visit after undergoing a diagnostic laparoscopy w/ FLORINA, EGD on 08/09/24 and takeback lap wedge resection of stomach, FLORINA for gastric perforation on 08/10/24. Subsequently underwent IR embolization of GDA and repeat endoscopy with GI, IVC filter in place. Says he is doing well. Tolerating regular diet. No nausea or vomiting. Having regular bowel movements. No hematemesis or fatigue. Asking about timing of endoscopy, sucralfate refill. Allergies[1] Current Medications[2] Medical History[3] O: BP 132/73 (BP Location: Right arm, Patient Position: Sitting, BP Cuff Size: Adult) Pulse 71 Temp 36.5 ?C (97.7 ?F) (Temporal) Ht 1.803 m (5' 11) Wt 79.8 kg (176 lb) SpO2 97% BMI 24.55 kg/m? Physical Exam: The wounds are healing well. There is no evidence of infection, seroma, erythema or hernia. R groin arterial access site is cdi, no hematoma. Pathology: Final Diagnosis STOMACH, PARTIAL EXCISION - GASTRIC MUCOSA WITH FOCAL MUCOSAL NECROSIS, PERFORATION, AND SEROSITIS. Comment: The background gastric mucosa does not demonstrate significant inflammatory changes, but immunohistochemical stain for Helicobacter pylori organisms will be performed and reported in an addendum. Assessment/Plan Laine was seen today for follow-up. Diagnoses and all orders for this visit: Pneumoperitoneum (Primary) - [facility]; Future Duodenal ulceration - [facility]; Future Other orders - sucralfate (Carafate) 1 g tablet; Take 1 tablet (1 g) by mouth 4 times daily (before meals and nightly). -Plan for EGD and colonoscopy with GI in 3 months for ulcer surveillance and screening. -Continue PPI BID and carafate. Carafate refill sent. -Okay for diet as tolerated - Hold eliquis until ulcer is healed, so will be at least another 3 months - Ok to resume regular activity The patient was seen and examined independently and relevant data reviewed by myself. A full chart review was performed. Patient Care Team: Dante Gurrola as PCP - General (Internal Medicine) [1] Allergies Allergen Reactions Penicillins [2] Current Outpatient Medications Medication Sig Dispense Refill cyanocobalamin (Vitamin B-12) 100 MCG tablet Take 100 mcg by mouth daily. dicyclomine (Bentyl) 20 MG tablet Take 20 mg by mouth 3 times daily. docusate sodium (Colace) 100 MG capsule Take 1 capsule (100 mg) by mouth every 12 hours. 60 capsule 0 ferrous fumarate-vitamin C ER (Mickey-Sequeles 65-25) Take 1 tablet by mouth 2 times daily (with meals). Do not crush, chew, or split. Multiple Vitamins-Minerals (multivitamin with minerals) tablet Take 1 tablet by mouth daily. niacin 500 MG tablet Take 500 mg by mouth daily (with breakfast). pantoprazole (ProtoNix) 40 MG EC tablet Take 1 tablet (40 mg) by mouth 2 times daily. Do not crush, chew, or split. 60 tablet 0 sucralfate (Carafate) 1 g tablet Take 1 tablet (1 g) by mouth 4 times daily (before meals and nightly). 120 tablet 0 No current facility-administered medications for this visit. [3] Past Medical History: Diagnosis Date Hernia, internal MVP (mitral valve prolapse) Pulmonary embolism (HCC) 30 Observed: 09/15/2024 11:42 AM Status: COMPLETED Source: [facility] Problem: Knowledge Deficit Goal: Patient/family/caregiver demonstrates understanding of disease process, treatment plan, medications, and discharge instructions Outcome: Adequate for DischargeProblem: Potential for Compromised Skin Integrity Goal: Skin Integrity is Maintained or Improved Outcome: Adequate for DischargeGoal: Nutritional status is improving Outcome: Adequate for Discharge DISCHARGE SUMMARY Observed: 09/15/2024 11:05 AM Status: COMPLETED Source: [facility] Hospitalist Discharge Summar y Laine Garcia : 1955 Admit date: 09/09/2024 Discharge date: 09/15/2024 Admitting Physician: Kieran Peterson MD Primary Care Physician: Dante Gurrola Visit Status: inpatient Code Status: Full Code BRIEF HOSPITAL COURSE: Laine is a 69 M with PMH of Hx is significant for PE/DVT s/p IVC filter, on Eliquis, duodenal perforation with recent laparoscopic wedge resection on 08/10/24 and laparoscopic lysis of adhesions on 08/09/24, Mitral valve prolapse. Presents from [place] ED using [email or web address] flight with concerns for acute upper GI bleeding. CT imaging at [place] showed a migrated stent into the colon. Patient was admitted to the ICU for acute blood loss anemia, GI bleed. He was started on PPI and received 2 units of PRBC on 09/08. Patient was evaluated by GI and gen surgery, underwent EGD on 09/11 which showed a Non-bleeding deep cavitary duodenal ulcer with an adherent clot in the cavity. Unable to remove clot from the deep ulcer cavitery. Recommendations were to monitor BMs for passing stent, continue PPI infusion. If this ulcer bleeds again then patient will need IR consult. Patient passed stent on 09/10. He underwent IR GDA embolization on 09/12.Additionally patient underwent repeat EGD on 09/14 that showed normal esophagus, normal stomach, non-bleeding duodenal ulcer with clean ulcer base-Gilmer Class III, no specimens collected. GI recommended continue PPI BID, repeat EGD in 2 months. General surgery recommended patient remain off Eliquis until ulcer is healed. The patient remained hemodynamically stable. Hgb 7.7 prior to discharge. Patient was discharged with PPI and Carafate. He will follow up with his PCP and general surgery outpatient as well as GI for repeat EGD in 2 months. Updated family bedside. Acute, acute on chronic, unstable/uncontrolled chronic problems/discharge diagnoses: Acute blood loss anemia Hematemesis Rebleeding duodenal ulcer Hx of duodenal ulcer 08/10 with duodenal perforation Stable chronic problems affecting care, new non-acute discharge diagnoses: Hx of PE/DVT on Eliquis Mitral valve prolapse Medical History[1] Hospital Course: See discharge diagnoses list above and medication adjustments below in med rec.The patient is discharged in improved and stable condition. Consults: IP CONSULT TO GI IP CONSULT TO WOUND PREVENTION Discharge Instructions: Diet: Dietary Orders (From admission, onward) Start Ordered 09/14/24 1042 Adult diet Regular Diet effective now Question: Diet type Answer: Regular 09/14/24 1041 Activity: as tolerated Recommended Outpatient Tests: Disposition: Patient discharged in stable condition to Home. Greater than 31 minutes spent discharging the patient and coming up with patient discharge plan. Vitals: BP 113/67 (BP Location: Left arm, Patient Position: Sitting) Pulse 81 Temp 37.2 ?C (98.9 ?F) (Oral) Resp 20 Wt 171 lb 15.3 oz (78 kg) SpO2 96% BMI 23.98 kg/m? Pulse Ox: SpO2 Av % Min: 96 % Max: 96 % Supplemental O2: O2 Flow Rate (L/min): 4 L/min Physical Exam Constitutional: Appearance: no acute distress HENT: Mouth/Throat: wnl Pharynx: Oropharynx is clear. Eyes: Conjunctiva/sclera: Conjunctivae normal. Cardiovascular: Rate and Rhythm: Normal rate. Heart sounds: No murmur heard. Pulmonary: Effort: Pulmonary effort is normal. No respiratory distress. Breath sounds: No wheezing or rales. Abdominal: General: Bowel sounds are normal. Musculoskeletal: Right lower leg: no Edema present. Left lower leg: no Edema present. Skin: General: Skin is warm. Capillary Refill: Capillary refill takes less than 2 seconds. Coloration: Skin is pale. Neurological: General: No focal deficit present. Mental Status: He is alert and oriented to person, place, and time. LABS: Recent Labs 09/13/24 0526 09/14/24 0008 09/15/24 0116 NA 140 139 138 K 3.8 3.8 3.7 CL 109* 108* 108* CO2 24 26 25 BUN 10 14 14 CREATININE 0.63* 0.69* 0.67* GLUCOSE 98 111 125* CALCIUM 7.7* 7.9* 7.7* Recent Labs 09/13/24 0526 09/13/24 1116 09/14/24 0008 09/15/24 0116 WBC 6.6 -- 6.0 5.9 RBC 2.54* -- 2.58* 2.61* HGB 7.5* 7.9* 7.6* 7.7* HCT 22.6* 23.6* 23.1* 23.3* MCV 89.0 -- 89.5 89.3 MCH 29.5 -- 29.5 29.5 MCHC 33.2 -- 32.9 33.0 RDW 16.0* -- 15.9* 15.6* PLT 214 -- 247 261 MPV 10.1 -- 9.9 9.6 Discharge Medications: Medication List START taking these medications pantoprazole 40 MG EC tablet Commonly known as: ProtoNix Take 1 tablet (40 mg) by mouth 2 times daily. Do not crush, chew, or split. sucralfate 1 g tablet Commonly known as: Carafate Take 1 tablet (1 g) by mouth 4 times daily (before meals and nightly). CONTINUE taking these medications dicyclomine 20 MG tablet Commonly known as: Bentyl docusate sodium 100 MG capsule Commonly known as: Colace Take 1 capsule (100 mg) by mouth every 12 hours. multivitamin with minerals tablet STOP taking these medications Eliquis 5 MG tablet Generic drug: apixaban oxyCODONE-acetaminophen 5-325 MG tablet Commonly known as: Percocet Where to Get Your Medications These medications were sent to [facility] [address] [place], [place] [id number] Hours: Wednesday to Wednesday 10 am to 6 pm pantoprazole 40 MG EC tablet sucralfate 1 g tablet Recommended Follow-up: Dante Gurrola [id number] [facility] [id number] Follow up in 1 week(s) Zara Spann DO [address] [facility] [address] [facility] [address] Follow up in 1 week(s) Laine Becerril MD [address] [facility] [address] [facility] [address] Follow up in 1 month(s) Complexity of Follow up: [] Moderate Complexity: follow up within 7-14 calendar days (78021) [x] Severe Complexity: follow up within 7 calendar days (52805) Follow up Testing, Pending results or Referrals at Transitional Care Visit: [x] yes [] no Instructions to MA: Please call patient on day after discharge (must document patient contacted within 2 business days of discharge). Follow up questions for MA: 1. Did you get medications filled and taking them as instructed from discharge? 2. Are you following your discharge instructions from your hospital stay? 3. Please confirm patient is scheduled for a follow up appointment within the above time frame. Signed: Elisabeth Salmeron APRN - [facility] Division of Hospitalist Medicine [facility] 09/15/2024, 11:05 AM [1] Past Medical History: Diagnosis Date MVP (mitral valve prolapse) Pulmonary embolism (HCC) PROGRESS NOTE Observed: 09/15/2024 10:12 AM Status: COMPLETED Source: [employer] [facility] Attestation signed by Zara Spann DO at 11/03/2024 10:38 AM I (Zara Spann) personally supervised the physician casing puller in the evaluation and development of a [...] occurred on the date noted below ASSESSMENT: Stable Egd normal No bleedign PLAN: Dc plannign Hgb stable. Department of General Surgery Daily Progress Note ADMIT DATE: 09/09/2024 TODAY'S DATE: 09/15/2024 SUBJECTIVE: NAEO. Pain well controlled. No bowel movement. No nausea or vomiting. Tolerating diet. ROS: Noted above unless otherwise mentioned OBJECTIVE: VITALS: Temp: [36.7 ?C (98.1 ?F)-37.2 ?C (98.9 ?F)] 37.2 ?C (98.9 ?F) Heart Rate: [72-81] 81 Resp: [16-20] 20 BP: (113-125)/(67-81) 113/67 INTAKE/OUTPUT: No intake or output data in the 24 hours ending 09/15/24 1012 I/O last 3 completed shifts: In: 50 (0.6 mL/kg) [I.V.:50 (0.6 mL/kg)] Out: - (0 mL/kg) Weight: 78 kg No intake/output data recorded. PHYSICAL EXAM: Gen: NAD, A&Ox3, pain moderately controlled Heart: RRR, well perfused Lungs: symmetric chest rise, normal work of breathing, breath sounds b/l Abd: soft, mildly tender to left hemiabdomen, non distended. Non rigid. No rebound or guarding. RLE access site is cdi with no hematoma Ext: no c/c/e no gross deformities Skin: warm, well perfused, no obvious rashes, cellulitis or gross discoloration LABS CBC: Auto WBC Date Value Ref Range Status 09/15/2024 5.9 3.6 - 10.7 10*3/uL Final 09/14/2024 6.0 3.6 - 10.7 10*3/uL Final 09/13/2024 6.6 3.6 - 10.7 10*3/uL Final Hemoglobin Date Value Ref Range Status 09/15/2024 7.7 (L) 13.0 - 18.0 g/dL Final 09/14/2024 7.6 (L) 13.0 - 18.0 g/dL Final 09/13/2024 7.9 (L) 13.0 - 18.0 g/dL Final Platelets Date Value Ref Range Status 09/15/2024 261 140 - 440 10*3/uL Final 09/14/2024 247 140 - 440 10*3/uL Final 09/13/2024 214 140 - 440 10*3/uL Final BMP: SODIUM Date Value Ref Range Status 09/15/2024 138 136 - 145 mmol/L Final 09/14/2024 139 136 - 145 mmol/L Final 09/13/2024 140 136 - 145 mmol/L Final POTASSIUM Date Value Ref Range Status 09/15/2024 3.7 3.5 - 5.1 mmol/L Final Comment: Plasma potassium values may be up to 0.5 mmol/L lower than serum values. 09/14/2024 3.8 3.5 - 5.1 mmol/L Final Comment: Plasma potassium values may be up to 0.5 mmol/L lower than serum values. 09/13/2024 3.8 3.5 - 5.1 mmol/L Final Comment: Plasma potassium values may be up to 0.5 mmol/L lower than serum values. CHLORIDE Date Value Ref Range Status 09/15/2024 108 (H) 98 - 107 mmol/L Final 09/14/2024 108 (H) 98 - 107 mmol/L Final 09/13/2024 109 (H) 98 - 107 mmol/L Final CARBON DIOXIDE Date Value Ref Range Status 09/15/2024 25 23 - 31 mmol/L Final 09/14/2024 26 23 - 31 mmol/L Final 09/13/2024 24 23 - 31 mmol/L Final UREA NITROGEN Date Value Ref Range Status 09/15/2024 14 9 - 23 mg/dL Final 09/14/2024 14 9 - 23 mg/dL Final 09/13/2024 10 9 - 23 mg/dL Final CREATININE Date Value Ref Range Status 09/15/2024 0.67 (L) 0.72 - 1.25 mg/dL Final 09/14/2024 0.69 (L) 0.72 - 1.25 mg/dL Final 09/13/2024 0.63 (L) 0.72 - 1.25 mg/dL Final Hepatic: AST (SGOT) Date Value Ref Range Status 09/09/2024 25 <34 U/L Final 09/08/2024 20 <34 U/L Final 08/25/2024 19 <34 U/L Final ALT Date Value Ref Range Status 09/09/2024 6 <40 U/L Final 09/08/2024 10 <40 U/L Final 08/25/2024 12 <40 U/L Final ALBUMIN Date Value Ref Range Status 09/09/2024 2.3 (L) 3.4 - 4.8 g/dL Final 09/08/2024 3.1 (L) 3.4 - 4.8 g/dL Final 08/25/2024 2.6 (L) 3.4 - 4.8 g/dL Final BILIRUBIN, TOTAL Date Value Ref Range Status 09/09/2024 0.9 <1.2 mg/dL Final 09/08/2024 0.7 <1.2 mg/dL Final 08/25/2024 0.4 <1.2 mg/dL Final BILIRUBIN, DIRECT Date Value Ref Range Status 09/08/2024 0.2 <0.5 mg/dL Final 08/25/2024 0.2 <0.5 mg/dL Final ALKALINE PHOSPHATASE Date Value Ref Range Status 09/09/2024 55 40 - 150 U/L Final 09/08/2024 83 40 - 150 U/L Final 08/25/2024 75 40 - 150 U/L Final Current Inpatient Medications Scheduled Meds:Scheduled Meds[1] Continuous Infusions:Continuous Meds[2] PRN Meds:PRN Meds[3] ASSESSMENT AND PLAN: 69 y.o. male with hx of bleeding duodenal ulcer and basia perforation who had duodental stent placed at [place]. He has had rebleed of this ulcer and on CT scan there is a noted migration of the stent. Patient passed the stent in BM on 09/10 now s/p GDA embolization 09/12, EGD with clean based ulcer 09/14 - No further intervention - Would hold off on eliquis for the foreseeable future given propensity to bleed. IVC filter in place - DC on BID PPI and carafate - Surgery to sign off, please call with questions or concerns Will discuss with Dr. Maria Ines Hardin MD General Surgery Pager [phone] 09/15/2024 10:12 AM This note may have been dictated using [employer] Edition 2.6 and/or [employer] Voice Recognition Feature. The document was proofread; however, unrecognized voice recognition pad extractor tender errors may be present. [1] [Held by provider] apixaban, 5 mg, Oral, BID [Held by provider] dicyclomine, 20 mg, Oral, TID [Held by provider] docusate sodium, 100 mg, Oral, q12h enoxaparin, 40 mg, SubCUTAneous, Daily pantoprazole (ProtoNix) 40 mg in sodium chloride (PF) 0.9 % 10 mL injection, 40 mg, IntraVENous, BID sodium chloride 0.9%, 10 mL, IntraVENous, 2 times per day sodium chloride 0.9%, 5-40 mL, IntraVENous, q12h sucralfate, 1 g, Oral, 4x daily AC & HS [2] [3] PRN medications: HYDROmorphone OR HYDROmorphone, naloxone, ondansetron ODT OR ondansetron, [Held by provider] polyethylene glycol (PEG) 3350, sodium chloride, sodium chloride, sodium chloride, sodium chloride 0.9%, sodium chloride 0.9% 30 Observed: 09/15/2024 5:46 AM Status: COMPLETED Source: [facility] Problem: Knowledge Deficit Goal: Patient/family/caregiver demonstrates understanding of disease process, treatment plan, medications, and discharge instructions Outcome: ProgressingProblem: Potential for Compromised Skin Integrity Goal: Skin Integrity is Maintained or Improved Outcome: ProgressingGoal: Nutritional status is improving Outcome: ProgressingProblem: Urinary Incontinence Goal: Perineal skin integrity is maintained or improved Outcome: Progressing CBC WITH AUTO DIFFERENTIAL Collected: 09/15/2024 1:16 AM Status: F Source: [facility] TYPE CODE TESTS RESULT OUT OF RANGE REFERENCE UNITS LAB [id number] WBC 5.9 3.6-10.7 10*3/uL LAB [id number] RBC 2.61 Low 4.40-5.90 10*6/uL LAB 2503380 HEMOGLOBIN 7.7 Low 13.0-18.0 g/dL LAB 8405069 HEMATOCRIT 23.3 Low 40.0-52.0 % LAB 8230384 MCV 89.3 77.0-99.0 fL LAB 5627294 MCH 29.5 26.0-34.0 pg LAB 1003808 MCHC 33.0 30.5-36.0 % LAB 1956866 RDW 15.6 High 11.5-15.0 % LAB 3882104 PLATELET COUNT 261 140-440 10*3/uL LAB 7588515 MPV 9.6 9.0-12.7 fL LAB 254 NRBC 0.0 0.0-2.0 /100 WBCs LAB 8296806 NEUTROPHILS RELATIVE 71.1 38.0-82.0 % LAB 9653081 LYMPHOCYTES RELATIVE 15.4 15.0-45.0 % LAB 7245783 MONOCYTES RELATIVE 7.6 5.0-13.0 % LAB 9096039 EOSINOPHILS RELATIVE 4.9 0.0-6.0 % LAB 0138753 BASOPHILS RELATIVE 0.5 0.0-2.0 % LAB 1507508 IMMATURE GRANS % 0.5 0.0-2.0 % LAB 4511569 NEUTROPHILS ABSOLUTE 4.2 1.8-7.5 10*3/uL LAB 2614286 LYMPHOCYTES ABSOLUTE 0.9 Low 1.0-4.3 10*3/uL LAB 2986982 MONOCYTES ABSOLUTE 0.5 0.0-0.9 10*3/uL LAB 8841968 EOSINOPHILS ABSOLUTE 0.3 0.0-0.5 10*3/uL LAB 8757625 BASOPHILS ABSOLUTE 0.0 0.0-0.2 10*3/uL LAB 516697 IMMATURE GRANS ABSOLUTE 0.0 <0.1 10*3/uL Performed By: #### [id number] # ### Board Catcher: NICOLA HOWARD ([id number]) [facility] ([facility]) [address] [place] [address] MAGNESIUM Collected: 5 1:16 AM Status: F Source: [facility] TYPE CODE TESTS RESULT OUT OF RANGE REFERENCE UNITS LAB 6761991 MAGNESIUM 1.8 1.6-2.6 mg/dL Result Comment: ORDER COMMEN TS: Higher values can be expected in females during menses. Performed By: #### [id number], L AB113, LAB15 #### Board Catcher: NICOLA HOWARD ([id number]) [facility] ([facility]) [address] [place] [address] PHOSPHORUS Collected: 1:16 AM Status: F Source: [facility] TYPE CODE TESTS RESULT OUT OF RANGE REFERENCE UNITS LAB 1166621 PHOSPHORUS 2.8 2.3-4.7 mg/dL Performed By: #### [id number], L AB113, LAB15 #### Board Catcher: NICOLA HOWARD ([id number]) [facility] ([facility]) [address] [place] [address] BASIC METABOLIC PANEL Collected: 2024 1:16 AM Status: F Source: [facility] TYPE CODE TESTS RESULT OUT OF RANGE REFERENCE UNITS LAB [id number] SODIUM 138 136-145 mmol/L LAB 8479143 POTASSIUM 3.7 3.5-5.1 mmol/L Result Comment: Plasma potas sium values may be up to 0.5 mmol/L lower than serum values. LAB 9667369 CHLORIDE 108 High 98-107 mmol/L LAB 4024590 CARBON DIOXIDE 25 23-31 mmol/L LAB 6204560 UREA NITROGEN 14 9-23 mg/dL LAB 7865597 CREATININE 0.67 Low 0.72-1.25 mg/dL LAB 2466411 GLUCOSE 125 High 82-115 mg/dL LAB 0842969 CALCIUM 7.7 Low 8.8-10.0 mg/dL LAB [id number] ANION GAP (ROMAN, CALCULATED) 5 3-13 mmol/L LAB 8200374 GLOMERULAR FILTRATION RATE ML/MIN/1.73 SQ M.PREDICTED >90.0 >60.0 mL/min/1. 73m*2 Result Comment: Calculation based on the Chronic Kidney Disease Epidemiology Collaboration (CKD-EPI) equation refit without adjustment for race Performed By: #### [id number], L AB113, LAB15 #### Board Catcher: NICOLA HOWARD ([id number]) [facility]) [address] [place] [address] PROGRESS NOTE Observed: 09/14/2024 1:35 PM Status: COMPLETED Source: [facility] Hospitalist Progress Note 09/14/2024 Subjective: Admit Date: 09/09/2024 PCP: Dante Gurrola Room#: [id number] A BRIEF HOSPITAL COURSE: Laine is a 69 M with PMH of Hx is significant for duodenual perforation with recent laparoscopic wedge resection on 08/10/24 and laparoscopic lysis of adhesions on 08/09/24, Mitral valve prolapse, and pulmonary embolism. Takes eliquis at home. Presents from [place] ED using [email or web address] flight with concerns for acute upper GI bleeding. CT at [place] at the time showed a migrated stent into the colon. Admitted to ICU. S/p 2 units of PRBC on 09/08. Evaluated by GI and gen surgery, underwent EGD - on 09/11 noted for Non-bleeding deep cavitary duodenal ulcer with an adherent clot in the cavity. Unable to remove clot from the deep ulcer cavitery. Recs to monitor BMs for passing stent, continue PPI infusion. If this ulcer bleeds again then patient will need IR consult. Patient did pass stent on 09/10. Transferred out of ICU on 09/11. 09/12-s/p IR GDA embolization. 09/14- s/p EGD showing normal esophagus, normal stomach, non-bleeding duodenal ulcer with clean ulcer base-Gilmer Class III, no specimens collected. GI recommended continue PPI BID, repeat EGD in 2 months. Interval History: Patient seen today. He states he feels well. He tolerated lunch with some abdominal bloating. No N/V. No CP or SOB. No overnight issues. Case and plan discussed with patient and bedside nurse. All questions answered. Adult diet Regular 24HR INTAKE/OUTPUT: Intake/Output Summary (Last 24 hours) at 09/14/2024 1335 Last data filed at 09/14/2024 0851 Gross per 24 hour Intake 50 ml Output -- Net 50 ml Past Medical History: Medical History[1] LABS: CBC: Recent Labs 09/12/24 0235 09/13/24 0526 09/13/24 1116 09/14/24 0008 WBC 5.5 6.6 -- 6.0 RBC 2.69* 2.54* -- 2.58* HGB 7.7* 7.5* 7.9* 7.6* HCT 23.6* 22.6* 23.6* 23.1* MCV 87.7 89.0 -- 89.5 RDW 15.9* 16.0* -- 15.9* PLT 234 214 -- 247 BMP: Recent Labs 09/12/24 0235 09/13/24 0526 09/14/24 0008 NA 141 140 139 K 3.7 3.8 3.8 CL 110* 109* 108* CO2 25 24 26 BUN 20 10 14 CREATININE 0.65* 0.63* 0.69* GLUCOSE 102 98 111 CALCIUM 7.9* 7.7* 7.9* ANIONGAP 6 7 5 LIVER PROFILE:No results for input(s): AST, ALT, BILITOT, ALKPHOS, PROT in the last 72 hours. No lab exists for component: LABALBU PT/INR: No results for input(s): PROTIME, INR in the last 72 hours. CARDIAC ENZYMES: No results for input(s): TROPONINI in the last 72 hours. Procalcitonin: No results found for: PROCAL COVID-19 PCR: No results for input(s): COVID19 in the last 72 hours. Objective: Vitals: BP 126/71 Pulse 63 Temp 36.8 ?C (98.2 ?F) (Temporal) Resp 18 Wt 171 lb 15.3 oz (78 kg) SpO2 97% BMI 23.98 kg/m? Pulse Ox: SpO2 Av.2 % Min: 97 % Max: 100 % Supplemental O2: O2 Flow Rate (L/min): 4 L/min Physical Exam Physical Exam Vitals and nursing note reviewed. Constitutional: Appearance: no acute distress HENT: Mouth/Throat: wnl Pharynx: Oropharynx is clear. Eyes: Conjunctiva/sclera: Conjunctivae normal. Cardiovascular: Rate and Rhythm: Normal rate. Heart sounds: No murmur heard. Pulmonary: Effort: Pulmonary effort is normal. No respiratory distress. Breath sounds: No wheezing or rales. Abdominal: General: Bowel sounds are normal. Musculoskeletal: Right lower leg: no Edema present. Left lower leg: no Edema present. Skin: General: Skin is warm. Capillary Refill: Capillary refill takes less than 2 seconds. Coloration: Skin is pale. Neurological: General: No focal deficit present. Mental Status: He is alert and oriented to person, place, and time. Medications: Scheduled PRN Scheduled Meds[2] PRN Meds[3] Continuous Continuous Meds[4] Assessment Data: (CAT1) Reviewed 3 or more notes from different specialty or health system (each=1). (CAT1) Reviewed 3 or more labs/studies ordered by another provider not previously counted (each=1, panels count as 1). (LOW: 2x CAT1 or independent historian MOD: 3x CAT1 or 1x CAT3 EXTENSIVE: 3x CAT1 and 1x CAT3) Acute, acute on chronic, unstable/uncontrolled chronic problems/diagnoses: Acute blood loss anemia Hematemesis Rebleeding duodenal ulcer Hx of duodenal ulcer 08/10 with duodenal perforation 08/10 Stable chronic problems affecting care, new non-acute diagnoses: Hx of PE/DVT on Eliquis Mitral valve prolapse Plan As a result of the above findings & factors, the following mgmt was pursued: - Hgb stable at 7.6, transfuse for hgb less than 7 - s/p EGD without any active bleeding noted. GI recommended PPI BID, repeat EGD in 2mo - Eliquis remains on hold given above, general surgery following, will further discuss timing of resuming Eliquis - Continue PPI BID, Carafate - Tolerating diet - Will repeat CBC in AM, anticipate DC within next 24 hours - am labs, replace lytes prn - PT/OT/CM/SW - delirium precautions: increase activity and limit nighttime disturbances - DVT prophylaxis: enoxaparin and encourage ambulation Complexity: Acute illness or injury posing a threat to life or body function (HIGH). Risk: Admission to hospital-level care was considered or occurred (HIGH). Advance Directive: Full Code Anticipated Discharge - Date - 09/15 - Location - Home - Pending the following - stable HH, ? Resumption of Eliquis Total time spent (which include face to face and non face to face encounters) : 45 minutes Extended Emergency Contact Information Primary Emergency Contact: Rachana Garcia Mobile Relation: Spouse Applications Systems Analyst needed? No Secondary Emergency Contact: Grace Vincent Relation: Daughter Applications Systems Analyst needed? No Elisabeth Salmeron APRN - ONLINE EDUCATION MANAGER Division of Hospitalist Medicine [employer] [facility] [1] Past Medical History: Diagnosis Date MVP (mitral valve prolapse) Pulmonary embolism (HCC) [2] [Held by provider] apixaban, 5 mg, Oral, BID [Held by provider] dicyclomine, 20 mg, Oral, TID [Held by provider] docusate sodium, 100 mg, Oral, q12h enoxaparin, 40 mg, SubCUTAneous, Daily pantoprazole (ProtoNix) 40 mg in sodium chloride (PF) 0.9 % 10 mL injection, 40 mg, IntraVENous, BID sodium chloride 0.9%, 10 mL, IntraVENous, 2 times per day sodium chloride 0.9%, 5-40 mL, IntraVENous, q12h sucralfate, 1 g, Oral, 4x daily AC & HS [3] PRN medications: HYDROmorphone OR HYDROmorphone, naloxone, ondansetron ODT OR ondansetron, [Held by provider] polyethylene glycol (PEG) 3350, sodium chloride, sodium chloride, sodium chloride, sodium chloride 0.9%, sodium chloride 0.9% [4] NURSING NOTE Observed: 09/14/2024 9:00 AM Status: COMPLETED Source: [facility] POST ENDOSCOPY PROCEDURE TRA NSFER REPORT Physician: Dr Becerril Procedure completed: EGD Specimens obtained: None Medications administered: See anesth record Findings: See Dr's note Complications: none Please call the Main Endoscopy Dept at [phone] for questions. Report called to Wander Wong RN. Informed of procedure and VS. [id number] Observed: 09/14/2024 8:54 AM Status: COMPLETED Source: [facility] Patient: Laine Garcia Procedure Summary Date: 09/14/24 Room / Location: [facility] ENDO 7 / [facility] Gastroenterology Anesthesia Start: 836 Anesthesia Stop: 850 Procedure: ESOPHAGOGASTRODUODENOSCOPY, DIAGNOSTIC (Abdomen) Diagnosis: Hematemesis Duodenal ulceration Providers: Laine Becerril MD Responsible Provider: Leona Hardin MD Anesthesia Type: TIVA, MAC ASA Status: 3 Anesthesia Type: TIVA, MAC Vitals Value Taken Time BP 125/81 09/14/24 08:53 Temp 36.8 ?C (98.2 ?F) 09/14/24 08:53 Pulse 66 09/14/24 08:53 Resp 16 09/14/24 08:53 SpO2 100 % 09/14/24 08:53 Anesthesia Post Evaluation Patient location during evaluation: [...] once all PACU criteria has been met. ANESTHESIA NOTE Observed: 09/14/2024 8:54 AM Status: COMPLETED Source: [facility] [place] [facility] Patient: Laine Garcia Procedure Summary Date: 09/14/24 Room / Location: [facility] ENDO 7 / [facility] Gastroenterology Anesthesia Start: 836 Anesthesia Stop: 850 Procedure: ESOPHAGOGASTRODUODENOSCOPY, DIAGNOSTIC (Abdomen) Diagnosis: Hematemesis Duodenal ulceration Providers: Laine Becerril MD Responsible Provider: Leona Hardin MD Anesthesia Type: TIVA, MAC ASA Status: 3 Anesthesia Type: TIVA, MAC Vitals Value Taken Time BP 125/81 09/14/24 08:53 Temp 36.8 ?C (98.2 ?F) 09/14/24 08:53 Pulse 66 09/14/24 08:53 Resp 16 09/14/24 08:53 SpO2 100 % 09/14/24 08:53 Anesthesia Post Evaluation Patient participation: complete - patient participated Level of consciousness: sleepy but arousable Pain management: satisfactory to patient Multimodal analgesia pain management approach Airway patency: patent Two or more strategies used to mitigate risk of obstructive sleep apnea Respiratory status: acceptable, spontaneous ventilation and supplemental oxygen Cardiovascular status: acceptable Hydration status: acceptable PONV: none No notable events documented. MIPS #[phone] PONV Patient did not receive an inhalational anesthetic (XX430) MIPS # 424 Perioperative Temperature Management Anesthesia time was less than 60 minutes (4256F) MIPS #477 Multimodal Pain Management Not emergent case Patient was not administered multimodal pain management (G2149) Patient reports no pain in PACU (G2149) MIPS #404 Anesthesiology Smoking Abstinence The patient [...] opportunity for questions and acknowledgement of understanding. PROGRESS NOTE Observed: 09/14/2024 8:41 AM Status: COMPLETED Source: [facility] Attestation signed by Zara Spann DO at 11/03/2024 10:37 AM I (Zara Spann) personally supervised the physician casing puller in the evaluation and development of a [...] occurred on the date noted below ASSESSMENT: Stable Tolerating diet PLAN: S/p gda embolization Pain control Dc planning Gi to scope and eval ulcer Department of General Surgery Daily Progress Note ADMIT DATE: 09/09/2024 TODAY'S DATE: 09/14/2024 SUBJECTIVE: NAEO. Pain well controlled. Tolerated diet yesterday. Tolerated IR procedure well, mild pain at R groin with minimal swelling. No further bowel movement overnight ROS: Noted above unless otherwise mentioned OBJECTIVE: VITALS: Temp: [36.4 ?C (97.5 ?F)-36.7 ?C (98.1 ?F)] 36.4 ?C (97.5 ?F) Heart Rate: [65-68] 65 Resp: [16-18] 18 BP: (123-131)/(83-88) 123/88 INTAKE/OUTPUT: No intake or output data in the 24 hours ending 09/14/24 0841 I/O last 3 completed shifts: In: 2386.4 (30.6 mL/kg) [I.V.:2386.4 (30.6 mL/kg)] Out: 500 (6.4 mL/kg) [Urine:500 (0.2 mL/kg/hr)] Weight: 78 kg No intake/output data recorded. PHYSICAL EXAM: Gen: NAD, A&Ox3, pain moderately controlled Heart: RRR, well perfused Lungs: symmetric chest rise, normal work of breathing, breath sounds b/l Abd: soft, mildly tender to left hemiabdomen, non distended. Non rigid. No rebound or guarding. RLE access site is cdi with no hematoma Ext: no c/c/e no gross deformities Skin: warm, well perfused, no obvious rashes, cellulitis or gross discoloration LABS CBC: Auto WBC Date Value Ref Range Status 09/14/2024 6.0 3.6 - 10.7 10*3/uL Final 09/13/2024 6.6 3.6 - 10.7 10*3/uL Final 09/12/2024 5.5 3.6 - 10.7 10*3/uL Final Hemoglobin Date Value Ref Range Status 09/14/2024 7.6 (L) 13.0 - 18.0 g/dL Final 09/13/2024 7.9 (L) 13.0 - 18.0 g/dL Final 09/13/2024 7.5 (L) 13.0 - 18.0 g/dL Final Platelets Date Value Ref Range Status 09/14/2024 247 140 - 440 10*3/uL Final 09/13/2024 214 140 - 440 10*3/uL Final 09/12/2024 234 140 - 440 10*3/uL Final BMP: SODIUM Date Value Ref Range Status 09/14/2024 139 136 - 145 mmol/L Final 09/13/2024 140 136 - 145 mmol/L Final 09/12/2024 141 136 - 145 mmol/L Final POTASSIUM Date Value Ref Range Status 09/14/2024 3.8 3.5 - 5.1 mmol/L Final Comment: Plasma potassium values may be up to 0.5 mmol/L lower than serum values. 09/13/2024 3.8 3.5 - 5.1 mmol/L Final Comment: Plasma potassium values may be up to 0.5 mmol/L lower than serum values. 09/12/2024 3.7 3.5 - 5.1 mmol/L Final Comment: Plasma potassium values may be up to 0.5 mmol/L lower than serum values. CHLORIDE Date Value Ref Range Status 09/14/2024 108 (H) 98 - 107 mmol/L Final 09/13/2024 109 (H) 98 - 107 mmol/L Final 09/12/2024 110 (H) 98 - 107 mmol/L Final CARBON DIOXIDE Date Value Ref Range Status 09/14/2024 26 23 - 31 mmol/L Final 09/13/2024 24 23 - 31 mmol/L Final 09/12/2024 25 23 - 31 mmol/L Final UREA NITROGEN Date Value Ref Range Status 09/14/2024 14 9 - 23 mg/dL Final 09/13/2024 10 9 - 23 mg/dL Final 09/12/2024 20 9 - 23 mg/dL Final CREATININE Date Value Ref Range Status 09/14/2024 0.69 (L) 0.72 - 1.25 mg/dL Final 09/13/2024 0.63 (L) 0.72 - 1.25 mg/dL Final 09/12/2024 0.65 (L) 0.72 - 1.25 mg/dL Final Hepatic: AST (SGOT) Date Value Ref Range Status 09/09/2024 25 <34 U/L Final 09/08/2024 20 <34 U/L Final 08/25/2024 19 <34 U/L Final ALT Date Value Ref Range Status 09/09/2024 6 <40 U/L Final 09/08/2024 10 <40 U/L Final 08/25/2024 12 <40 U/L Final ALBUMIN Date Value Ref Range Status 09/09/2024 2.3 (L) 3.4 - 4.8 g/dL Final 09/08/2024 3.1 (L) 3.4 - 4.8 g/dL Final 08/25/2024 2.6 (L) 3.4 - 4.8 g/dL Final BILIRUBIN, TOTAL Date Value Ref Range Status 09/09/2024 0.9 <1.2 mg/dL Final 09/08/2024 0.7 <1.2 mg/dL Final 08/25/2024 0.4 <1.2 mg/dL Final BILIRUBIN, DIRECT Date Value Ref Range Status 09/08/2024 0.2 <0.5 mg/dL Final 08/25/2024 0.2 <0.5 mg/dL Final ALKALINE PHOSPHATASE Date Value Ref Range Status 09/09/2024 55 40 - 150 U/L Final 09/08/2024 83 40 - 150 U/L Final 08/25/2024 75 40 - 150 U/L Final Current Inpatient Medications Scheduled Meds:Scheduled Meds[1] Continuous Infusions:Continuous Meds[2] PRN Meds:PRN Meds[3] ASSESSMENT AND PLAN: 69 y.o. male with hx of bleeding duodenal ulcer and basia perforation who had duodental stent placed at [place]. He has had rebleed of this ulcer and on CT scan there is a noted migration of the stent. Patient passed the stent in BM on 09/10 now s/p GDA embolization 09/12 - No further intervention - GI to scope today - hold eliquis, will discuss timing of resumption - Rest of management per primary medicine service - Surgery will follow Will discuss with Dr. Maria Ines Hardin MD General Surgery Pager [phone] 09/14/2024 8:41 AM This note may have been dictated using [employer] Edition 2.6 and/or [employer] Voice Recognition Feature. The document was proofread; however, unrecognized voice recognition pad extractor tender errors may be present. [1] [Held by provider] apixaban, 5 mg, Oral, BID [Held by provider] dicyclomine, 20 mg, Oral, TID [Held by provider] docusate sodium, 100 mg, Oral, q12h [Transfer Hold] enoxaparin, 40 mg, SubCUTAneous, Daily mupirocin, , Nasal, BID [Transfer Hold] pantoprazole (ProtoNix) 40 mg in sodium chloride (PF) 0.9 % 10 mL injection, 40 mg, IntraVENous, BID [Transfer Hold] sodium chloride 0.9%, 10 mL, IntraVENous, 2 times per day [Transfer Hold] sodium chloride 0.9%, 5-40 mL, IntraVENous, q12h [Transfer Hold] sucralfate, 1 g, Oral, 4x daily AC & HS [2] [3] PRN medications: [Transfer Hold] HYDROmorphone OR [Transfer Hold] HYDROmorphone, [Transfer Hold] naloxone, [Transfer Hold] ondansetron ODT OR [Transfer Hold] ondansetron, [Held by provider] polyethylene glycol (PEG) 3350, [Transfer Hold] sodium chloride, [Transfer Hold] sodium chloride, [Transfer Hold] sodium chloride, [Transfer Hold] sodium chloride 0.9%, [Transfer Hold] sodium chloride 0.9% OP NOTE Observed: 09/14/2024 8:33 AM Status: COMPLETED [facility] Name: Laine Garcia Procedure Date: 09/14/2024 8:33 AM Gender: Male Date of : 1955 Age: 69 Admit Type: Inpatient Note Status: Finalized Endoscopist: Laine Becerril MD, [id number] Procedure: Upper GI endoscopy Indications: Follow-up of peptic ulcer Findings: The esophagus was normal. The entire examined stomach was normal. One non-bleeding cratered duodenal ulcer with a clean ulcer base (Gilmer Class III) was found in the duodenal bulb. The lesion was 20 mm in largest dimension. Old clip noted in D2 Impression: - Normal esophagus. - Normal stomach. - Non-bleeding duodenal ulcer with a clean ulcer base (Gilmer Class III). - No specimens collected. Recommendation: - Patient has a contact number available for emergencies. The signs and symptoms of potential delayed complications were discussed with the patient. Return to normal activities tomorrow. Written discharge instructions were provided to the patient. - Resume previous diet. - Continue present medications. - Continue BID PPI. Follow hemoglobin, transfuse as needed. Fortunately no further active bleeding noted on endoscopy today, his ulcer has downgraded to a Gilmer III which is an improvement compared to prior scopes. Recommend close follow up with GI as outpatient with repeat endoscopy in 2 months to reassess. GI to sign off, please call with any further questions or concerns. Medicines: Monitored Anesthesia Care, See the Anesthesia note for documentation of the administered medications Procedure: Pre-Anesthesia Assessment: - Prior to the procedure, a History and Physical was performed, and patient medications and allergies were reviewed. The patient's tolerance of previous anesthesia was also reviewed. The risks and benefits of the procedure and the sedation options and risks were discussed with the patient. All questions were answered, and informed consent was obtained. [Anticoagulant Agents]. [ASA Grade]. After reviewing the risks and benefits, the patient was deemed in satisfactory condition to undergo the procedure. After obtaining informed consent, the endoscope was passed under direct vision. Throughout the procedure, the patient's blood pressure, pulse, and oxygen saturations were monitored continuously. The Endoscope was introduced through the mouth, and advanced to the second part of duodenum. The upper GI endoscopy was accomplished without difficulty. The patient tolerated the procedure well. Complications: No immediate complications. Procedure Code(s): --- Professional --- 22740, Esophagogastroduodenoscopy, flexible, transoral; diagnostic, including collection of specimen(s) by brushing or washing, when performed (separate procedure) --- Technical --- 75573, Esophagogastroduodenoscopy, flexible, transoral; diagnostic, including collection of specimen(s) by brushing or washing, when performed (separate procedure) Diagnosis Code(s): --- Professional --- K27.9, Peptic ulcer, site unspecified, unspecified as acute or chronic, without hemorrhage or perforation K26.9, Duodenal ulcer, unspecified as acute or chronic, without hemorrhage or perforation --- Technical --- K27.9, Peptic ulcer, site unspecified, unspecified as acute or chronic, without hemorrhage or perforation K26.9, Duodenal ulcer, unspecified as acute or chronic, without hemorrhage or perforation CPT copyright 2021 [employer]. All rights reserved. The codes documented in this report are preliminary and upon lead pressman review may be revised to meet current compliance requirements. Attending Participation: I personally performed the entire procedure. Laine Becerril MD 09/14/2024 8:54:01 AM This report has been signed electronically. Number of Addenda: 0 Note Initiated On: 09/14/2024 8:33 AM ANESTHESIA NOTE Observed: 09/14/2024 7:50 AM Status: COMPLETED Source: [facility] Patient: Laine Garcia Procedure Information Date/Time: 09/14/24829 Procedure: ESOPHAGOGASTRODUODENOSCOPY, DIAGNOSTIC (Abdomen) Location: [facility] ENDO 7 / [facility] Gastroenterology Providers: Laine Becerril MD 69 year old male with history of bleeding duodenal ulcer requiring blood transfusions. Previously had duodenal stent placed at [place] which has passed spontaneously 2 days ago. Patient continuing to have melena. Relevant Problems GI (+) Duodenal ulceration (+) Hematemesis Other (+) Duodenal perforation (CMS/HCC) (HCC) Past Medical History: Past Medical History: No date: MVP (mitral valve prolapse) No date: Pulmonary embolism (HCC) Past Surgical History: Past Surgical History: No date: HERNIA REPAIR 09/12/2024: IR EMBOLIZATION Comment: IR EMBOLIZATION 09/12/2024 Omid oGldsmith MD [facility] SPECIAL PROCEDURES 08/10/2024: OTHER SURGICAL HISTORY; N/A Comment: APAROSCOPY, DIAGNOSTIC, LYSIS OF ADHESIONS, EGD No date: SHOULDER SURGERY Social History: TOBACCO: reports that he has never smoked. He has never used smokeless tobacco. ETOH: reports current alcohol use of about 2.0 standard drinks of alcohol per week. Social History Substance and Sexual Activity Drug Use Never Family History: Family History[1] Screening: unknown Clinical information reviewed: Tobacco Allergies Meds Med Hx Surg Hx Fam Hx Soc Hx Physical Exam Airway Mallampati: II TM distance: >3 FB Neck ROM: full Mouth Open: normal Cardiovascular - normal exam Dental dentition normal Pulmonary - normal exam Abdominal Anesthesia Plan patient is NPO appropriate Any family history or previous problems with anesthesia no ASA 3 TIVA and MAC Any family history or previous problems with anesthesia no The patient is not a current smoker. Anesthetic plan and risks discussed with patient. Use of blood products discussed with who consented to blood products. ADALBERTO Screening Labs: Lab Results Component Value Date WBC 6.0 09/14/2024 HGB 7.6 (L) 09/14/2024 HCT 23.1 (L) 09/14/2024 MCV 89.5 09/14/2024 PLT 247 09/14/2024 Lab Results Component Value Date NA 139 09/14/2024 K 3.8 09/14/2024 CL 108 (H) 09/14/2024 CO2 26 09/14/2024 BUN 14 09/14/2024 CREATININE 0.69 (L) 09/14/2024 GLUCOSE 111 09/14/2024 CALCIUM 7.9 (L) 09/14/2024 PROT 4.9 (L) 09/09/2024 ALKPHOS 55 09/09/2024 AST 25 09/09/2024 ALT 6 09/09/2024 EGFR >90.0 09/14/2024 Pain Score: 3 No echocardiogram results found for the past 14 days 08/24/24 ECG 12-LEAD 08/25/2024 6:30 AM (Final) Impression Sinus rhythm Minimal ST depression, inferior leads Compared to ECG 08/09/24 No significant change Electronically Signed On 08-25-2024 06:30:05 EDT by Joe Machado Signed by: Joe Machado DO on 08/25/2024 6:30 AM Equipment Requests: Additional Equipment Requests [1] No family history on file. 30 Observed: 09/14/2024 12:14 AM Status: COMPLETED Source: [facility] Problem: Knowledge Deficit Goal: Patient/family/caregiver demonstrates understanding of disease process, treatment plan, medications, and discharge instructions Outcome: ProgressingProblem: Potential for Compromised Skin Integrity Goal: Skin Integrity is Maintained or Improved Outcome: ProgressingGoal: Nutritional status is improving Outcome: ProgressingProblem: Urinary Incontinence Goal: Perineal skin integrity is maintained or improved Outcome: Progressing MAGNESIUM Collected: 12:08 AM Status: F Source: [facility] TYPE CODE TESTS RESULT OUT OF RANGE REFERENCE UNITS LAB [id number] MAGNESIUM 1.8 1.6-2.6 mg/dL Result Comment: ORDER COMMEN TS: Higher values can be expected in females during menses. Performed By: #### [id number], L AB113, LAB15 #### Board Catcher: NICOLA HOWARD ([id number]) [address] PHOSPHORUS Collected: 12:08 AM Status: F Source: [facility] TYPE CODE TESTS RESULT OUT OF RANGE REFERENCE UNITS LAB [id number] PHOSPHORUS 3.3 2.3-4.7 mg/dL Performed By: #### [id number], L AB113, LAB15 #### Board Catcher: NICOLA HOWARD ([id number]) [facility] [address] [place] [address] BASIC METABOLIC PANEL Collected: 2024 12:08 AM Status: F Source: [facility] TYPE CODE TESTS RESULT OUT OF RANGE REFERENCE UNITS LAB [id number] SODIUM 139 136-145 mmol/L LAB [id number] POTASSIUM 3.8 3.5-5.1 mmol/L Result Comment: Plasma potas sium values may be up to 0.5 mmol/L lower than serum values. LAB [id number] CHLORIDE 108 High 98-107 mmol/L LAB [id number] CARBON DIOXIDE 26 23-31 mmol/L LAB 6875970 UREA NITROGEN 14 9-23 mg/dL LAB [id number] CREATININE 0.69 Low 0.72-1.25 mg/dL LAB 4778122 GLUCOSE 111 82-115 mg/dL LAB 4440957 CALCIUM 7.9 Low 8.8-10.0 mg/dL LAB [id number] ANION GAP (ROMAN, CALCULATED) 5 3-13 mmol/L LAB [id number] GLOMERULAR FILTRATION RATE ML/MIN/1.73 SQ M.PREDICTED >90.0 >60.0 mL/min/1. 73m*2 Result Comment: Calculation based on the Chronic Kidney Disease Epidemiology Collaboration (CKD-EPI) equation refit without adjustment for race Performed By: #### [id number], L AB113, LAB15 #### Board Catcher: NICOLA HOWARD ([id number]) [facility] [address] [place] [address] CBC WITH AUTO DIFFERENTIAL Collected: 0 09/14/2024 12:08 AM Status: F Source: [facility] TYPE CODE TESTS RESULT OUT OF RANGE REFERENCE UNITS LAB [id number] WBC 6.0 3.6-10.7 10*3/uL LAB 9242166 RBC 2.58 Low 4.40-5.90 10*6/uL LAB [id number] HEMOGLOBIN 7.6 Low 13.0-18.0 g/dL LAB 8838831 HEMATOCRIT 23.1 Low 40.0-52.0 % LAB 2211546 MCV 89.5 77.0-99.0 fL LAB 7860355 MCH 29.5 26.0-34.0 pg LAB 7003861 MCHC 32.9 30.5-36.0 % LAB 9052400 RDW 15.9 High 11.5-15.0 % LAB 6022330 PLATELET COUNT 247 140-440 10*3/uL LAB 5532102 MPV 9.9 9.0-12.7 fL LAB 254 NRBC 0.0 0.0-2.0 /100 WBCs LAB 8408950 NEUTROPHILS RELATIVE 65.6 38.0-82.0 % LAB 9312584 LYMPHOCYTES RELATIVE 18.8 15.0-45.0 % LAB 7674448 MONOCYTES RELATIVE 8.9 5.0-13.0 % LAB 4208528 EOSINOPHILS RELATIVE 5.7 0.0-6.0 % LAB 9715832 BASOPHILS RELATIVE 0.5 0.0-2.0 % LAB 2741518 IMMATURE GRANS % 0.5 0.0-2.0 % LAB 1363735 NEUTROPHILS ABSOLUTE 3.9 1.8-7.5 10*3/uL LAB 0737972 LYMPHOCYTES ABSOLUTE 1.1 1.0-4.3 10*3/uL LAB [id number] MONOCYTES ABSOLUTE 0.5 0.0-0.9 10*3/uL LAB [id number] EOSINOPHILS ABSOLUTE 0.3 0.0-0.5 10*3/uL LAB [id number] BASOPHILS ABSOLUTE 0.0 0.0-0.2 10*3/uL LAB [id number] IMMATURE GRANS ABSOLUTE 0.0 <0.1 10*3/uL LAB [id number] IPF 2 Performed By: #### [id number] # ### Board Catcher: NICOLA HOWARD ([id number]) [address] PROGRESS NOTE Observed: 09/13/2024 3:49 PM Status: COMPLETED Source: [facility] INTERVENTIONAL RADIOLOGY PRO BUCKY NOTE Admit Date: 09/09/2024 Subjective: This is a 69 y.o. male who was admitted to [facility] on 09/09. Pt initially presented to [place] ED on 09/08 for hematemesis and syncope. He had EGD that revealed nonbleeding deep duodenal ulcer with adherent clot in the cavity. Patient was transferred to [facility] for further evaluation and management. History of gastric perforation status post taken down with laparoscopic wedge resection on 08/10/24. Patient was scheduled for abdominal stent removal which was rescheduled due to him taking eliquis. CT 09/08 showed migration of gastric/duodenal stent into right colon. During admission patient's Hgb dropped, CTA showed no active bleeding. IR was consulted for mesenteric angiogram due to history of bleeding duodenal ulcer. S/p embolization of gastroduodenal artery and superior pancreaticoduodenal artery. Hgb has remained stable since procedure. Patient endorses soreness at groin site. He states there was swelling this morning which has improved since he has been ambulating throughout the day. Patient denies nausea, vomiting, abdominal pain, dizziness. Objective: Vitals: Vitals: 09/13/24 1154 BP: 129/85 Pulse: 66 Resp: 16 Temp: 36.7 ?C (98.1 ?F) SpO2: 98% General appearance: Alert, non-toxic, no acute distress. Back: Right femoral site bandage C/D/I. No bruising or hematoma. Appropriately tender to palpation. Extremities: Right femoral, DP/PT pulses palpable. Neurologic: A&O x3, thought content appropriate. DATA: CBC: Lab Results Component Value Date WBC 6.6 09/13/2024 HGB 7.9 (L) 09/13/2024 HCT 23.6 (L) 09/13/2024 MCV 89.0 09/13/2024 PLT 214 09/13/2024 BMP: Lab Results Component Value Date GLUCOSE 98 09/13/2024 CALCIUM 7.7 (L) 09/13/2024 NA 140 09/13/2024 K 3.8 09/13/2024 CO2 24 09/13/2024 CL 109 (H) 09/13/2024 BUN 10 09/13/2024 CREATININE 0.63 (L) 09/13/2024 INR: Lab Results Component Value Date INR 1.1 09/09/2024 INR 1.1 08/24/2024 INR 1.1 08/09/2024 PROTIME 11.9 09/09/2024 PROTIME 11.4 08/24/2024 PROTIME 11.9 08/09/2024 I&O: I/O last 3 completed shifts: In: 2386.4 (30.6 mL/kg) [I.V.:2386.4 (30.6 mL/kg)] Out: 1200 (15.4 mL/kg) [Urine:1200 (0.4 mL/kg/hr)] Weight: 78 kg No intake/output data recorded. Assessment/Plan Laine Garcia is a 69 y.o. male who was admitted to [facility] on 09/09/2024 for hematemesis, syncope, duodenal ulcer. - Successful embolization of gastroduodenal artery and superior pancreaticoduodenal artery with IR on 09/12. No post-procedural complications. - Hgb stable, continue to monitor - Continue medical management and disposition per primary care team I personally spent 15 minutes consulting with patient, of which over 50% was spent counseling. Ivy Portillo PA-C Interventional Radiology [id number] Observed: 09/13/2024 2:31 PM Status: COMPLETED Source: [facility] Case Management Progress Not e: Patient remains on H6 s/p GDA embolization 09/12 Discharge Plan: Home. Per RN monitoring R groin site. Patient is tolerating diet. No home going needs noted from [facility] chart review. RESS NOTE Observed: 09/13/2024 12:14 PM Status: COMPLETED Source: [facility] Department of Internal Medic ine Gastroenterology Progress Note SUBJECTIVE: GI following for GI bleed. 69-year-old male with significant past medical history of after finding, but prolapse, recent DVT GERD status post and gastric perforation status post takedown of Basia with laparoscopic wedge resection 08/10/2024. Pertinent history includes: Admitted at [facility] s/p bleeding duodenal ulcer with visible vessel 08/2024. He was transferred to [facility] from [place] with duodenal perforation. He is s/p diagnostic laparoscopy 08/09/24 and laparoscopic wedge resection of gastric perforation 08/10/24. Discharged from hospital 08/13/2024. Readmitted to hospital 08/24/2024. Plan for duodenal stent removal 09/07/24 but patient took Eliquis and this could not be completed. Patient had hematemesis and syncope and presented to [place] ED on 09/08/24 then transferred to [facility]. Patient had EGD on 09/08/24 that revealed normal esophagus, normal stomach, nonbleeding deep duodenal ulcer with adherent clot in the cavity with no fresh blood or active bleeding. Old clip on D2 wall. Patient had empiric GDA embolization yesterday by IR. No further overt signs of GI Bleeding per patient and Hgb has remained stable. Asked to see patient and do second look EGD tomorrow to check ulcer. Medications Scheduled Meds:Current Medications[1] OBJECTIVE VITALS: BP 129/85 (BP Location: Left arm, Patient Position: Sitting) Pulse 66 Temp 36.7 ?C (98.1 ?F) (Temporal) Resp 16 Wt 171 lb 15.3 oz (78 kg) SpO2 98% BMI 23.98 kg/m? Average, Min, and Max for last24 hours Vitals: TEMPERATURE: Temp Av.7 ?C (98.1 ?F) Min: 36.2 ?C (97.2 ?F) Max: 36.9 ?C (98.5 ?F) RESPIRATIONS RANGE: Resp Av.1 Min: 13 Max: 20 PULSE RANGE: Pulse Av.8 Min: 53 Max: 92 BLOOD PRESSURE RANGE: Systolic (24hrs), Av , Min:118 , Max:156 ; Diastolic (24hrs), Av, Min:73, Max:100 PULSE OXIMETRY RANGE:SpO2 Av.7 % Min: 96 % Max: 100 % I/O last 3 completed shifts: In: 2386.4 (30.6 mL/kg) [I.V.:2386.4 (30.6 mL/kg)] Out: 1200 (15.4 mL/kg) [Urine:1200 (0.4 mL/kg/hr)] Weight: 78 kg Constitutional: No acute distress. Well-nourished. Well hydrated Eyes: Pupils are equal and round; Conjunctiva are not injected; Sclera are non-icteric. ENT: Ears/nose without external abnormalities. Oral mucosa is pink and moist. Respiratory: Clear to auscultation bilaterally without any added sounds. Effort is normal Heart: Regular, Normal S1 and S2. No murmur; No added sounds. Abdomen: Normal BS, soft, mild epigastric tenderness, non-distended; no hepatomegaly. Extremities/Skin: No LE edema; Skin warm to touch and well perfused. Pale. Musculoskeletal: Head - normocephalic. Neck - supple Psychiatric: AAO x 3, answers appropriately, normal mood, normal affect. Non-focal. Data Recent blood work, radiologic study and endoscopic study were reviewed with the patient. CBC: Recent Labs 09/11/24 0619 09/12/24 0235 09/13/24 0526 09/13/24 1116 WBC 6.9 5.5 6.6 -- RBC 2.63* 2.69* 2.54* -- HGB 7.6* 7.7* 7.5* 7.9* HCT 22.9* 23.6* 22.6* 23.6* MCV 87.1 87.7 89.0 -- MCH 28.9 28.6 29.5 -- MCHC 33.2 32.6 33.2 -- RDW 15.9* 15.9* 16.0* -- PLT 188 234 214 -- MPV 9.7 9.5 10.1 -- CMP: Recent Labs 09/11/24 0017 09/12/24 0235 09/13/24 0526 NA 141 141 140 K 3.9 3.7 3.8 CL 112* 110* 109* CO2 26 25 24 BUN 29* 20 10 CREATININE 0.60* 0.65* 0.63* GLUCOSE 99 102 98 CALCIUM 7.7* 7.9* 7.7* PT/INR: No results for input(s): INR in the last [address] AP 09/08/24 FINDINGS: 1. Previously placed gastric/duodenal stent has now migrated into the right colon with tip at the level of the hepatic flexure. 2. A clip is seen in the duodenum which has not migrated. Perigastric and periduodenal tissues show vague soft tissue thickening without definite free air with wall thickening (although focal small infectious process difficult to exclude at this time). Slight narrowing midportion duodenum between mesenteric vessels and aorta. 3. Small hepatic and renal cysts, IVC filter in good position with small metallic foreign matter by the inferior aspect left renal vein, degenerative facet and disc changes lumbar spine, prostatic enlargement, prior posterior wall stomach surgery. Endoscopic Review EGD 08/07/24- Cecily Crews, PA EGD 09/09/24 IMPRESSION/RECOMMENDATIONS: GIB Cratered duodenal ulcer- EGD 09/08/24, adherent clot, no active bleeding, s/p empiric GDA emobolization 09/12/24 Hematemesis- resolved History of bleeding duodenal ulcer- 08/07/2024 oozing duodenal ulcer with visible vessel; treated with APC, clips placed History of duodenal perforation- 08/10/2024 s/p laparoscopic wedge resection of gastric perforation Acute anemia- s/p 2 units PRBC since , Hgb 7.6 this AM - EGD tomorrow, patient agreeable, NPO after midnight - No NSAIDs - Patient will also need repeat EGD in 2 months to check healing of ulcer, will send records to Dr. Avendano in [place] - GI soft diet and advance as tolerated - Continue medical management and supportive care per primary team - Continue to monitor H/H and transfuse per primary team - Continue Protonix 40 mg BID - GI to follow I have independently seen, interviewed, and examined the patient. I have reviewed the case with the Medical Student/Resident/PA and reviewed their consult/progress note in addition to personally discussing the patient. Included in my assessment was review of the information contained in this progress note, the patient's medical record, and independent review of labs, radiology reports, and images when appropriate. I agree with all of the above. Approximately 25 minutes was involved with the clinical decision making. Impressio: history of duodenal ulcer with perforation PLAN: EGD in 2 months; continue acid suppression management. [1] Current Facility-Administered Medications: [Held by provider] apixaban (Eliquis) tablet 5 mg, 5 mg, Oral, BID, Aliya Antonio MD [Held by provider] dicyclomine (Bentyl) tablet 20 mg, 20 mg, Oral, TID, Aliya Antonio MD [Held by provider] docusate sodium (Colace) capsule 100 mg, 100 mg, Oral, q12h, Aliya Antonio MD enoxaparin (Lovenox) syringe 40 mg, 40 mg, SubCUTAneous, Daily, Aury Whitmore NP, 40 mg at 09/13/24 0830 HYDROmorphone (Dilaudid) injection 0.5 mg, 0.5 mg, IntraVENous, q4h PRN OR HYDROmorphone (Dilaudid) injection 1 mg, 1 mg, IntraVENous, q4h PRN, Teresita Castaneda MD mupirocin (Bactroban) 2 % ointment, , Nasal, BID, Teresita Castaneda MD, Given at 09/12/24 2211 naloxone (Narcan) injection 0.4 mg, 0.4 mg, IntraVENous, q5 min PRN, Aliya Antonio MD ondansetron ODT (Zofran-ODT) disintegrating tablet 4 mg, 4 mg, Oral, q8h PRN OR ondansetron (Zofran) injection 4 mg, 4 mg, IntraVENous, q6h PRN, Aliya Antoino MD pantoprazole (ProtoNix) 40 mg in sodium chloride (PF) 0.9 % 10 mL injection, 40 mg, IntraVENous, BID, Teresita Castaneda MD, 40 mg at 09/13/24 0831 [Held by provider] polyethylene glycol (PEG) 3350 (Miralax) packet 17 g, 17 g, Oral, Daily PRN, Aliya Antonio MD sodium chloride 0.9 % infusion, 5-250 mL/hr, IntraVENous, PRN, BARRIE Encarnacion CNP sodium chloride 0.9 % infusion, 250 mL/hr, IntraVENous, PRN, Teresita Castnaeda MD sodium chloride 0.9 % infusion, 250 mL/hr, IntraVENous, PRN, Teresita Castaneda MD sodium chloride 0.9% (NS) flush 10 mL, 10 mL, IntraVENous, 2 times per day, BARRIE nEcarnacion CNP, 10 mL at 09/13/24 0833 sodium chloride 0.9% (NS) flush 10 mL, 10 mL, IntraVENous, PRN, BARRIE Encarnacion CNP sodium chloride 0.9% (NS) flush 5-40 mL, 5-40 mL, IntraVENous, q12h, Aliya Antonio MD, 10 mL at 09/13/24 1105 sodium chloride 0.9% (NS) flush 5-40 mL, 5-40 mL, IntraVENous, PRN, Aliya Antonio MD sucralfate (Carafate) tablet 1 g, 1 g, Oral, 4x daily AC & HS, Jacob Reyna MD, 1 g at 09/13/24 1155 PROGRESS NOTE Observed: 09/13/2024 11:41 AM Status: COMPLETED Source: [facility] Hospitalist Progress Note 09/13/2024 Subjective: Admit Date: 09/09/2024 PCP: Dante Gurrola Room#: [id number] A BRIEF HOSPITAL COURSE: Laine is a 69 M with PMH of Hx is significant for duodenual perforation with recent laparoscopic wedge resection on 08/10/24 and laparoscopic lysis of adhesions on 08/09/24, Mitral valve prolapse, and pulmonary embolism. Takes eliquis at home. Presents from [place] ED using [email or web address] flight with concerns for acute upper GI bleeding. CT at [place] at the time showed a migrated stent into the colon. Admitted to ICU. S/p 2 units of PRBC on 09/08. Evaluated by GI and gen surgery, underwent EGD - on 09/11 noted for Non-bleeding deep cavitary duodenal ulcer with an adherent clot in the cavity. Unable to remove clot from the deep ulcer cavitery. Recs to monitor BMs for passing stent, continue PPI infusion. If this ulcer bleeds again then patient will need IR consult. Patient did pass stent on 09/10. Transferred out of ICU on 09/11. 09/12-s/p IR GDA embolization. Plan for repeat EGD 09/14 to reevaluate ulcer. Interval History: No acute events overnight. Eliquis remains on hold. Denies any active bleeding episodes. No chest pain or shortness of breath. Remains hemodynamically stable. H&H this a.m. 7.5 and 22.6, repeat improved to 7.9 and 23.6. Plan to continue monitoring H&H. Discussed plan of care with the patient and spouse at the bedside. All questions answered. Adult diet Regular 24HR INTAKE/OUTPUT: Intake/Output Summary (Last 24 hours) at 09/13/2024 1141 Last data filed at 09/13/2024 0527 Gross per 24 hour Intake 2386.36 ml Output 500 ml Net 1886.36 ml Past Medical History: Medical History[1] LABS: CBC: Recent Labs 09/11/24 0619 09/12/24 0235 09/13/24 0526 09/13/24 1116 WBC 6.9 5.5 6.6 -- RBC 2.63* 2.69* 2.54* -- HGB 7.6* 7.7* 7.5* 7.9* HCT 22.9* 23.6* 22.6* 23.6* MCV 87.1 87.7 89.0 -- RDW 15.9* 15.9* 16.0* -- PLT 188 234 214 -- BMP: Recent Labs 09/11/24 0017 09/12/24 0235 09/13/24 0526 NA 141 141 140 K 3.9 3.7 3.8 CL 112* 110* 109* CO2 26 25 24 BUN 29* 20 10 CREATININE 0.60* 0.65* 0.63* GLUCOSE 99 102 98 CALCIUM 7.7* 7.9* 7.7* ANIONGAP 3 6 7 LIVER PROFILE: No results for input(s): AST, ALT, BILITOT, ALKPHOS, PROT in the last 72 hours. No lab exists for component: LABALBU PT/INR: No results for input(s): PROTIME, INR in the last 72 hours. CARDIAC ENZYMES: No results for input(s): TROPONINI in the last 72 hours. Procalcitonin: No results found for: PROCAL COVID-19 PCR: No results for input(s): COVID19 in the last 72 hours. Objective: Vitals: BP 121/78 (BP Location: Left arm, Patient Position: Sitting) Pulse 92 Temp 36.2 ?C (97.2 ?F) (Temporal) Resp 16 Wt 171 lb 15.3 oz (78 kg) SpO2 96% BMI 23.98 kg/m? Pulse Ox: SpO2 Av.6 % Min: 96 % Max: 100 % Supplemental O2: O2 Flow Rate (L/min): 2 L/min Physical Exam Vitals and nursing note reviewed. Cardiovascular: Rate and Rhythm: Normal rate. Pulses: Normal pulses. Heart sounds: Normal heart sounds. Pulmonary: Effort: No respiratory distress. Breath sounds: Normal breath sounds. Musculoskeletal: Right lower leg: No edema. Left lower leg: No edema. Skin: General: Skin is warm and dry. Capillary Refill: Capillary refill takes less than 2 seconds. Neurological: Mental Status: He is alert and oriented to person, place, and time. Medications: Scheduled PRN Scheduled Meds[2] PRN Meds[3] Continuous Continuous Meds[4] Assessment Data: (CAT1) Reviewed 3 or more notes from different specialty or health system (each=1). (CAT1) Reviewed 3 or more labs/studies ordered by another provider not previously counted (each=1, panels count as 1). (LOW: 2x CAT1 or independent historian MOD: 3x CAT1 or 1x CAT3 EXTENSIVE: 3x CAT1 and 1x CAT3) Acute, acute on chronic, unstable/uncontrolled chronic problems/diagnoses: Rebleeding of duodenal ulcer S/p EGD on 09/08 with adherent clot, no active bleeding. Further management of any GI bleeding deferred to surgery/IR per GI there is location and depth of ulcer is too deep. S/p IR GDA embolization on 09/12 Plan for repeat EGD with GI 09/14 to evaluate ulcer, NPO after midnight Repeat EGD recommended in 2 months to check healing of ulcer Continue holding Eliquis. General surgery following, appreciate recommendations History bleeding of duodenal ulcer 08/07/24 History of duodenal perforation 08/10/24-s/p laparoscopic patch resection of gastric perforation Hematemesis-likely exacerbated by Eliquis. Resolved Acute anemia-s/p 2 units of PRBC transfusion on 09/09 and 09/10. Monitor H&H closely. H&H stable this a.m. Transfuse for hemoglobin less than 7. Eliquis on hold. Stable chronic problems affecting care, new non-acute diagnoses: As above Plan As a result of the above findings & factors, the following mgmt was pursued: - Plan as above - am labs, replace lytes prn - PT/OT/CM/SW - delirium precautions: increase activity and limit nighttime disturbances - DVT prophylaxis: enoxaparin and encourage ambulation Complexity: Acute illness or injury posing a threat to life or body function (HIGH). Chronic illness with severe exacerbation, progression, or side effect of tx (HIGH). Risk: Admission to hospital-level care was considered or occurred (HIGH). Advance Directive: Full Code Anticipated Discharge - Date -TBD - Location - Home - Pending the following -above eval, clinical progress Total time spent (which include face to face and non face to face encounters) : 45 minutes Extended Emergency Contact Information Primary Emergency Contact: Rachana Garcia Mobile Relation: Spouse Applications Systems Analyst needed? No Secondary Emergency Contact: Grace Vincent Relation: Daughter Applications Systems Analyst needed? No Aury Whitmore NP Division of Hospitalist Medicine Acute care [facility] [1] Past Medical History: Diagnosis Date MVP (mitral valve prolapse) Pulmonary embolism (HCC) [2] [Held by provider] apixaban, 5 mg, Oral, BID [Held by provider] dicyclomine, 20 mg, Oral, TID [Held by provider] docusate sodium, 100 mg, Oral, q12h enoxaparin, 40 mg, SubCUTAneous, Daily mupirocin, , Nasal, BID pantoprazole (ProtoNix) 40 mg in sodium chloride (PF) 0.9 % 10 mL injection, 40 mg, IntraVENous, BID sodium chloride 0.9%, 10 mL, IntraVENous, 2 times per day sodium chloride 0.9%, 5-40 mL, IntraVENous, q12h sucralfate, 1 g, Oral, 4x daily AC & HS [3] PRN medications: HYDROmorphone OR HYDROmorphone, naloxone, ondansetron ODT OR ondansetron, [Held by provider] polyethylene glycol (PEG) 3350, sodium chloride, sodium chloride, sodium chloride, sodium chloride 0.9%, sodium chloride 0.9% [4] HEMOGLOBIN AND HEMATOCRIT, BLOOD Collec vimal: 09/13/2024 11:16 AM Status: F Source: [facility] TYPE CODE TESTS RESULT OUT OF RANGE REFERENCE UNITS LAB [id number] HEMOGLOBIN 7.9 Low 13.0-18.0 g/dL LAB [id number] HEMATOCRIT 23.6 Low 40.0-52.0 % Performed By: #### [id number] ## ## Board Catcher: NICOLA HOWARD ([phone]) [facility] ([address] PROGRESS NOTE Observed: 09/13/2024 9:05 AM Status: COMPLETED Source: [facility] OCCUPATIONAL THERAPY [facility] Initial Evaluation Name/MRN: Laine Garcia ([id number]) Evaluation Date: 09/13/2024 Date of : 1955 Admission Date: 09/09/2024 9:41 AM Age: 69 y.o. Room/Bed: -24/[facility]24 A Discharge Recommendation: Home with assist PRN Assessment IMPRESSION: Pt admitted for hematemesis with acute GI bleed. Prior to admission, pt completing ADLs independently. He is not currently requiring any hands on assistance for mobility or the completion of ADLs. Not recommending skilled services at this time d/t pt performing at or near functional baseline for basic ADLs; reconsult if changes occur. Pt states he has a walker and cane at home if needed and his is able to help as well. Rec home with assist as needed for higher level IADLs. Admitting Diagnosis: Hematemesis, acute GI bleed Performance Deficits /Impairments: Increased Pain, Decreased Endurance, and Decreased High Level IADLs Prognosis: Good Decision Making: Low Complexity Subjective Pt cooperative and agreeable to therapy. States no pain, just discomfort at incision site. Pain: Pt denies any current pain. Past Medical History: Medical History[1] Past Surgical History: Surgical History[2] Admission Diagnosis: Patient Active Problem List Diagnosis Date Noted Hematemesis 09/09/2024 Abdominal pain 08/25/2024 Severe malnutrition ([facility]) ([facility]) 08/12/2024 Duodenal ulceration 08/09/2024 Pneumoperitoneum 08/09/2024 Duodenal perforation ([facility]) ([facility]) 08/09/2024 Medical Precautions: No active isolations Proper PPE donned/doffed in accordance with facility standards. Fall Risk: Perdomo Fall Risk Score: 60 (High Risk) Precautions/Restrictions: N/A Family/Caregiver Present: visitor present Overall Cognitive Status: WFL Overall Orientation Status: Oriented x4 Social/Functional History Patient admitted from home. Lives With: Family Type of Home: single family home Home Layout: Multi-Level Home and Able to Live on Main Level Home Access: Level Entry Bathroom Shower/Tub: Tub shower with grab bars Toilet: N/A Home Equipment: grab bars, walker, cane Homemaking Responsibilities: Independent Receives Help From: None Active Car Spotter: N/A Prior Level of Function Prior Level of ADL Function: Independent Prior Level of Mobility: Independent; Device: None Prior Level of Transfers: Independent Objective ADLs LE Dressing: Modified Independent, pt able to don/doff socks while seated in chair Grooming: Modified Independent, pt completed hand hygiene while standing at sink Upper Extremity Assessment AROM: WFL PROM: WFL Strength: WFL Bed Mobility Supine to sit: Modified Independent Scooting: Modified Independent Transfers/Mobility Sit to stand: Modified Independent Stand to sit: Modified Independent Toilet: Modified Independent Sitting balance: Independent Functional mobility: Modified Independent Ambulated to bathroom and to the chair, no LOB or swaying noted. Pt states he has been getting up on his own and walking in the hallways and he feels like he is performing at his baseline. Device(s) used: None AM-PAC AM-PAC Inpatient Daily Activity Raw Score: 24 ADL Inpatient CMS G-Code Modifier: CH Plan No skilled acute OT indicated at this time. Please reconsult should changes occur. Safety/Education Safety Safety Devices in place: call light within reach, left in chair, and no alarms engaged upon entry Restraints: No Education Education Given To: patient Education Provided: OT Role, Plan of Care, and Discharge Recommendations Education Method: Verbal Barriers to Learning: None Education Outcome: Verbalized Understanding Goals Patient Stated Goal: Return home Therapy Time Individual Co-Treatment Co-Evaluation Time In 0750 Time Out 0800 Minutes 10 Patient's Occupational Therapy Plan of Care supervision is transferred to a [facility] Services Occupational Therapist. Goals and/or treatment plan was established in collaboration with patient/family/other representatives. Cheryl Joaquin, S/OT [1] Past Medical History: Diagnosis Date MVP (mitral valve prolapse) Pulmonary embolism (HCC) [2] Past Surgical History: Procedure Laterality Date HERNIA REPAIR IR EMBOLIZATION 09/12/2024 IR EMBOLIZATION 09/12/2024 Omid Goldsmith MD [facility] SPECIAL PROCEDURES OTHER SURGICAL HISTORY N/A 08/10/2024 APAROSCOPY, DIAGNOSTIC, LYSIS OF ADHESIONS, EGD SHOULDER SURGERY PROGRESS NOTE Observed: 09/13/2024 7:51 AM Status: COMPLETED Source: [employer] [facility] Attestation signed by Zara Spann DO at 11/03/2024 10:36 AM I (Zara Spann) personally supervised the physician casing puller in the evaluation and development of a [...] occurred on the date noted below ASSESSMENT: Bleeding ulcer Stent is out PLAN: Eddie pimentel S/p gda embolization Department of General Surgery Daily Progress Note ADMIT DATE: 09/09/2024 TODAY'S DATE: 09/13/2024 SUBJECTIVE: NAEO. Pain well controlled. Tolerated diet yesterday. Tolerated IR procedure well, mild pain at R groin with minimal swelling ROS: Noted above unless otherwise mentioned OBJECTIVE: VITALS: Temp: [36.6 ?C (97.9 ?F)-36.9 ?C (98.5 ?F)] 36.9 ?C (98.4 ?F) Heart Rate: [52-75] 67 Resp: [12-23] 16 BP: (114-156)/(73-100) 127/73 INTAKE/OUTPUT: Intake/Output Summary (Last 24 hours) at 09/13/2024 3171 Last data filed at 09/13/2024 0522 Gross per 24 hour Intake 2386.36 ml Output 500 ml Net 1886.36 ml I/O last 3 completed shifts: In: 2386.4 (30.6 mL/kg) [I.V.:2386.4 (30.6 mL/kg)] Out: 1200 (15.4 mL/kg) [Urine:1200 (0.4 mL/kg/hr)] Weight: 78 kg No intake/output data recorded. PHYSICAL EXAM: Gen: NAD, A&Ox3, pain moderately controlled Heart: RRR, well perfused Lungs: symmetric chest rise, normal work of breathing, breath sounds b/l Abd: soft, mildly tender to left hemiabdomen, non distended. Non rigid. No rebound or guarding. RLE access site is cdi with no hematoma Ext: no c/c/e no gross deformities Skin: warm, well perfused, no obvious rashes, cellulitis or gross discoloration LABS CBC: Auto WBC Date Value Ref Range Status 09/13/2024 6.6 3.6 - 10.7 10*3/uL Final 09/12/2024 5.5 3.6 - 10.7 10*3/uL Final 09/11/2024 6.9 3.6 - 10.7 10*3/uL Final Hemoglobin Date Value Ref Range Status 09/13/2024 7.5 (L) 13.0 - 18.0 g/dL Final 09/12/2024 7.7 (L) 13.0 - 18.0 g/dL Final 09/11/2024 7.6 (L) 13.0 - 18.0 g/dL Final Platelets Date Value Ref Range Status 09/13/2024 214 140 - 440 10*3/uL Final 09/12/2024 234 140 - 440 10*3/uL Final 09/11/2024 188 140 - 440 10*3/uL Final BMP: SODIUM Date Value Ref Range Status 09/13/2024 140 136 - 145 mmol/L Final 09/12/2024 141 136 - 145 mmol/L Final 09/11/2024 141 136 - 145 mmol/L Final POTASSIUM Date Value Ref Range Status 09/13/2024 3.8 3.5 - 5.1 mmol/L Final Comment: Plasma potassium values may be up to 0.5 mmol/L lower than serum values. 09/12/2024 3.7 3.5 - 5.1 mmol/L Final Comment: Plasma potassium values may be up to 0.5 mmol/L lower than serum values. 09/11/2024 3.9 3.5 - 5.1 mmol/L Final Comment: Plasma potassium values may be up to 0.5 mmol/L lower than serum values. CHLORIDE Date Value Ref Range Status 09/13/2024 109 (H) 98 - 107 mmol/L Final 09/12/2024 110 (H) 98 - 107 mmol/L Final 09/11/2024 112 (H) 98 - 107 mmol/L Final CARBON DIOXIDE Date Value Ref Range Status 09/13/2024 24 23 - 31 mmol/L Final 09/12/2024 25 23 - 31 mmol/L Final 09/11/2024 26 23 - 31 mmol/L Final UREA NITROGEN Date Value Ref Range Status 09/13/2024 10 9 - 23 mg/dL Final 09/12/2024 20 9 - 23 mg/dL Final 09/11/2024 29 (H) 9 - 23 mg/dL Final CREATININE Date Value Ref Range Status 09/13/2024 0.63 (L) 0.72 - 1.25 mg/dL Final 09/12/2024 0.65 (L) 0.72 - 1.25 mg/dL Final 09/11/2024 0.60 (L) 0.72 - 1.25 mg/dL Final Hepatic: AST (SGOT) Date Value Ref Range Status 09/09/2024 25 <34 U/L Final 09/08/2024 20 <34 U/L Final 08/25/2024 19 <34 U/L Final ALT Date Value Ref Range Status 09/09/2024 6 <40 U/L Final 09/08/2024 10 <40 U/L Final 08/25/2024 12 <40 U/L Final ALBUMIN Date Value Ref Range Status 09/09/2024 2.3 (L) 3.4 - 4.8 g/dL Final 09/08/2024 3.1 (L) 3.4 - 4.8 g/dL Final 08/25/2024 2.6 (L) 3.4 - 4.8 g/dL Final BILIRUBIN, TOTAL Date Value Ref Range Status 09/09/2024 0.9 <1.2 mg/dL Final 09/08/2024 0.7 <1.2 mg/dL Final 08/25/2024 0.4 <1.2 mg/dL Final BILIRUBIN, DIRECT Date Value Ref Range Status 09/08/2024 0.2 <0.5 mg/dL Final 08/25/2024 0.2 <0.5 mg/dL Final ALKALINE PHOSPHATASE Date Value Ref Range Status 09/09/2024 55 40 - 150 U/L Final 09/08/2024 83 40 - 150 U/L Final 08/25/2024 75 40 - 150 U/L Final Current Inpatient Medications Scheduled Meds:Scheduled Meds[1] Continuous Infusions:Continuous Meds[2] PRN Meds:PRN Meds[3] ASSESSMENT AND PLAN: 69 y.o. male with hx of bleeding duodenal ulcer and basia perforation who had duodental stent placed at [place]. He has had rebleed of this ulcer and on CT scan there is a noted migration of the stent. Patient passed the stent in BM on 09/10 now s/p GDA embolization 09/12 - No further intervention - hold eliquis, will discuss timing of resumption - Rest of management per primary medicine service - Surgery will follow Will discuss with Dr. Maria Ines Hardin MD General Surgery Pager [phone] 09/13/2024 7:54 AM This note may have been dictated using [employer] Edition 2.6 and/or [employer] Voice Recognition Feature. The document was proofread; however, unrecognized voice recognition pad extractor tender errors may be present. [1] [Held by provider] apixaban, 5 mg, Oral, BID [Held by provider] dicyclomine, 20 mg, Oral, TID [Held by provider] docusate sodium, 100 mg, Oral, q12h enoxaparin, 40 mg, SubCUTAneous, Daily mupirocin, , Nasal, BID pantoprazole (ProtoNix) 40 mg in sodium chloride (PF) 0.9 % 10 mL injection, 40 mg, IntraVENous, BID sodium chloride 0.9%, 10 mL, IntraVENous, 2 times per day sodium chloride 0.9%, 5-40 mL, IntraVENous, q12h [2] [3] PRN medications: acetaminophen, HYDROmorphone OR HYDROmorphone, naloxone, ondansetron ODT OR ondansetron, [Held by provider] polyethylene glycol (PEG) 3350, sodium chloride, sodium chloride, sodium chloride, sodium chloride 0.9%, sodium chloride 0.9% MAGNESIUM Collected: 5:26 AM Status: F Source: [facility] TYPE CODE TESTS RESULT OUT OF RANGE REFERENCE UNITS LAB [id number] MAGNESIUM 1.7 1.6-2.6 mg/dL Result Comment: ORDER COMMEN TS: Higher values can be expected in females during menses. Performed By: #### [id number], L AB113, LAB15 #### Board Catcher: NICOLA HOWARD ([phone]) [facility] ([facility]) [address] [place] [address] PHOSPHORUS Collected: 5:26 AM Status: F Source: [facility] TYPE CODE TESTS RESULT OUT OF RANGE REFERENCE UNITS LAB [id number] PHOSPHORUS 3.2 2.3-4.7 mg/dL Performed By: #### [id number], L AB113, LAB15 #### Board Catcher: NICOLA HOWARD ([phone]) [facility] ([facility]) [address] [place] [address] BASIC METABOLIC PANEL Collected: 2024 5:26 AM Status: F Source: [facility] TYPE CODE TESTS RESULT OUT OF RANGE REFERENCE UNITS LAB [id number] SODIUM 140 136-145 mmol/L LAB [id number] POTASSIUM 3.8 3.5-5.1 mmol/L Result Comment: Plasma potas sium values may be up to 0.5 mmol/L lower than serum values. LAB 1950461 CHLORIDE 109 High 98-107 mmol/L LAB [id number] CARBON DIOXIDE 24 23-31 mmol/L LAB 8734618 UREA NITROGEN 10 9-23 mg/dL LAB [id number] CREATININE 0.63 Low 0.72-1.25 mg/dL LAB 9868750 GLUCOSE 98 82-115 mg/dL LAB 8348117 CALCIUM 7.7 Low 8.8-10.0 mg/dL LAB [id number] ANION GAP (ROMAN, CALCULATED) 7 3-13 mmol/L LAB [id number] GLOMERULAR FILTRATION RATE ML/MIN/1.73 SQ M.PREDICTED >90.0 >60.0 mL/min/1. 73m*2 Result Comment: Calculation based on the Chronic Kidney Disease Epidemiology Collaboration (CKD-EPI) equation refit without adjustment for race Performed By: #### [id number], L AB113, LAB15 #### Board Catcher: NICOLA HOWARD ([phone]) [facility] ([facility]) [address] [place] [address] CBC WITH AUTO DIFFERENTIAL Collected: 09/13/2024 5:26 AM Status: F Source: [facility] TYPE CODE TESTS RESULT OUT OF RANGE REFERENCE UNITS LAB [id number] WBC 6.6 3.6-10.7 10*3/uL LAB 4125633 RBC 2.54 Low 4.40-5.90 10*6/uL LAB 1910379 HEMOGLOBIN 7.5 Low 13.0-18.0 g/dL LAB 8907968 HEMATOCRIT 22.6 Low 40.0-52.0 % LAB 9308456 MCV 89.0 77.0-99.0 fL LAB 3441982 MCH 29.5 26.0-34.0 pg LAB 1002876 MCHC 33.2 30.5-36.0 % LAB 1386777 RDW 16.0 High 11.5-15.0 % LAB [id number] PLATELET COUNT 214 140-440 10*3/uL LAB 4636672 MPV 10.1 9.0-12.7 fL LAB 254 NRBC 0.0 0.0-2.0 /100 WBCs LAB 3679325 NEUTROPHILS RELATIVE 76.2 38.0-82.0 % LAB 9402437 LYMPHOCYTES RELATIVE 12.7 Low 15.0-45.0 % LAB 2525764 MONOCYTES RELATIVE 6.6 5.0-13.0 % LAB 8319722 EOSINOPHILS RELATIVE 3.7 0.0-6.0 % LAB 5843660 BASOPHILS RELATIVE 0.5 0.0-2.0 % LAB 9942048 IMMATURE GRANS % 0.3 0.0-2.0 % LAB 7395751 NEUTROPHILS ABSOLUTE 5.0 1.8-7.5 10*3/uL LAB 3631110 LYMPHOCYTES ABSOLUTE 0.8 Low 1.0-4.3 10*3/uL LAB 6060005 MONOCYTES ABSOLUTE 0.4 0.0-0.9 10*3/uL LAB 0811635 EOSINOPHILS ABSOLUTE 0.2 0.0-0.5 10*3/uL LAB 0737417 BASOPHILS ABSOLUTE 0.0 0.0-0.2 10*3/uL LAB 096072 IMMATURE GRANS ABSOLUTE 0.0 <0.1 10*3/uL Performed By: #### [id number] # ### Board Catcher: NICOLA HOWARD ([phone]) [facility] ([facility]) [address] [place] [address] PROGRESS NOTE Observed: 09/12/2024 2:50 PM Status: COMPLETED Source: [facility] [place] [facility] Dear Provider, The patient is noted with hematemesis on admission. Patient is on eliquis at home and this medication is currently being held. Patient received 1 unit prbcs. Could hematemesis be further specified as: Hematemesis exacerbated by eliquis NURSING NOTE Observed: 09/12/2024 11:30 AM Status: COMPLETED [facility] Pt tolerated procedure well. Transferring to Recovery. NURSING NOTE Observed: 09/12/2024 11:30 AM Status: COMPLETED [facility] Hemostasis achieved. 30 Observed: 09/12/2024 11:15 AM Status: COMPLETED Source: [facility] [place] [facility] Problem: Knowledge Deficit Goal: Patient/family/caregiver demonstrates understanding of disease process, treatment plan, medications, and discharge instructions Outcome: ProgressingProblem: Potential for Compromised Skin Integrity Goal: Skin Integrity is Maintained or Improved Outcome: ProgressingGoal: Nutritional status is improving Outcome: Progressing NURSING NOTE Observed: 09/12/2024 10:37 AM Status: COMPLETED [facility] Patient arrived from [facility], Dr. Goldsmith was in to speak with the patient regarding GDA embolization, consent was obtained. Patient was placed supine on exam table prepped and draped in sterile fashion. Telemetry monitors placed, vitals monitored and conscious sedation administered. NURSING NOTE Observed: 09/12/2024 10:07 AM Status: COMPLETED [facility] Pt arrived awake a/ox4 pt sp bhavin with dr goldsmith consent obtained. Ppp +3 bilateral PROGRESS NOTE Observed: 09/12/2024 9:15 AM Status: COMPLETED Source: [facility] [place] [facility] Hospitalist Progress Note 09/12/2024 Subjective: Admit Date: 09/09/2024 PCP: Dante Gurrola Room#: [id number] A BRIEF HOSPITAL COURSE: Laine is a 69 M with PMH of Hx is significant for duodenual perforation with recent laparoscopic wedge resection on 08/10/24 and laparoscopic lysis of adhesions on 08/09/24, Mitral valve prolapse, and pulmonary embolism. Takes eliquis at home. Presents from [place] ED using [email or web address] flight with concerns for acute upper GI bleeding. CT at [place] at the time showed a migrated stent into the colon. Admitted to ICU. S/p 2 units of PRBC on 09/08. Evaluated by GI and gen surgery, underwent EGD - on 09/11 noted for Non-bleeding deep cavitary duodenal ulcer with an adherent clot in the cavity. Unable to remove clot from the deep ulcer cavitery. Recs to monitor BMs for passing stent, continue PPI infusion. If this ulcer bleeds again then patient will need IR consult. Patient did pass stent on 09/10. Transferred out of ICU on 09/11. 09/12-plan for IR GDA embolization. Interval History: No acute events overnight. H&H stable. Plan for GDA today. Remains NPO. Eliquis on hold. Patient denies any complaints at the present time. Family present at the bedside. Discussed plan of care and all questions answered. NPO diet with enteral medications 24HR INTAKE/OUTPUT: Intake/Output Summary (Last 24 hours) at 09/12/2024 1133 Last data filed at 09/12/2024 0600 Gross per 24 hour Intake 360 ml Output 700 ml Net -340 ml Past Medical History: Medical History[1] LABS: CBC: Recent Labs 09/10/24 0513 09/10/24 1226 09/11/24 0017 09/11/24 0619 09/12/24 0235 WBC 10.2 -- -- 6.9 5.5 RBC 2.43* -- -- 2.63* 2.69* HGB 7.1* < > 7.7* 7.6* 7.7* HCT 21.5* < > 23.1* 22.9* 23.6* MCV 88.5 -- -- 87.1 87.7 RDW 16.0* -- -- 15.9* 15.9* PLT 205 -- -- 188 234 < > = values in this interval not displayed. BMP: Recent Labs 09/10/24 0137 09/11/24 0017 09/12/24 0235 NA 139 141 141 K 3.9 3.9 3.7 CL 111* 112* 110* CO2 26 26 25 BUN 40* 29* 20 CREATININE 0.65* 0.60* 0.65* GLUCOSE 110 99 102 CALCIUM 7.2* 7.7* 7.9* ANIONGAP 2* 3 6 LIVER PROFILE: No results for input(s): AST, ALT, BILITOT, ALKPHOS, PROT in the last 72 hours. No lab exists for component: LABALBU PT/INR: No results for input(s): PROTIME, INR in the last 72 hours. CARDIAC ENZYMES: No results for input(s): TROPONINI in the last 72 hours. Procalcitonin: No results found for: PROCAL COVID-19 PCR: No results for input(s): COVID19 in the last 72 hours. Objective: Vitals: BP 126/76 Pulse 60 Temp 36.6 ?C (97.9 ?F) (Temporal) Resp 16 Wt 171 lb 15.3 oz (78 kg) SpO2 99% BMI 23.98 kg/m? Pulse Ox: SpO2 Av.2 % Min: 98 % Max: 100 % Supplemental O2: O2 Flow Rate (L/min): 2 L/min Physical Exam Vitals and nursing note reviewed. Cardiovascular: Rate and Rhythm: Normal rate. Pulses: Normal pulses. Heart sounds: Normal heart sounds. Pulmonary: Effort: No respiratory distress. Breath sounds: Normal breath sounds. Musculoskeletal: Right lower leg: No edema. Left lower leg: No edema. Skin: General: Skin is warm and dry. Capillary Refill: Capillary refill takes less than 2 seconds. Neurological: Mental Status: He is alert and oriented to person, place, and time. Medications: Scheduled PRN Scheduled Meds[2] PRN Meds[3] Continuous Continuous Meds[4] Assessment Data: (CAT1) Reviewed 3 or more notes from different specialty or health system (each=1). (CAT1) Reviewed 3 or more labs/studies ordered by another provider not previously counted (each=1, panels count as 1). (LOW: 2x CAT1 or independent historian MOD: 3x CAT1 or 1x CAT3 EXTENSIVE: 3x CAT1 and 1x CAT3) Acute, acute on chronic, unstable/uncontrolled chronic problems/diagnoses: Rebleeding of duodenal ulcer S/p EGD on 09/08 with adherent clot, no active bleeding. Further management of any GI bleeding deferred to surgery/IR per GI there is location and depth of ulcer is too deep. S/p IR GDA embolization on 09/12 Repeat EGD recommended in 2 months to check healing of ulcer Continue holding Eliquis. General surgery following, appreciate recommendations History bleeding of duodenal ulcer 08/07/24 History of duodenal perforation 08/10/24-s/p laparoscopic patch resection of gastric perforation Hematemesis-resolved Acute anemia-s/p 2 units of PRBC transfusion on 09/09 and 09/10. Monitor H&H closely. H&H stable this a.m. Transfuse for hemoglobin less than 7 Stable chronic problems affecting care, new non-acute diagnoses: As above Plan As a result of the above findings & factors, the following mgmt was pursued: - Plan as above - am labs, replace lytes prn - PT/OT/CM/SW - delirium precautions: increase activity and limit nighttime disturbances - DVT prophylaxis: enoxaparin and encourage ambulation Complexity: Acute illness or injury posing a threat to life or body function (HIGH). Chronic illness with severe exacerbation, progression, or side effect of tx (HIGH). Risk: Admission to hospital-level care was considered or occurred (HIGH). Advance Directive: Full Code Anticipated Discharge - Date -? - Location - Home - Pending the following -above eval, clinical progress Total time spent (which include face to face and non face to face encounters) : 45 minutes Extended Emergency Contact Information Primary Emergency Contact: Rachana Garcia Mobile Relation: Spouse Applications Systems Analyst needed? No Secondary Emergency Contact: Grace Vincent Relation: Daughter Applications Systems Analyst needed? No Aury Whitmore NP Division of Hospitalist Medicine Acute [facility] [1] Past Medical History: Diagnosis Date MVP (mitral valve prolapse) Pulmonary embolism (HCC) [2] [Held by provider] apixaban, 5 mg, Oral, BID [Held by provider] dicyclomine, 20 mg, Oral, TID [Held by provider] docusate sodium, 100 mg, Oral, q12h enoxaparin, 40 mg, SubCUTAneous, Daily mupirocin, , Nasal, BID pantoprazole (ProtoNix) 40 mg in sodium chloride (PF) 0.9 % 10 mL injection, 40 mg, IntraVENous, BID sodium chloride 0.9%, 10 mL, IntraVENous, 2 times per day sodium chloride 0.9%, 5-40 mL, IntraVENous, q12h [3] PRN medications: acetaminophen, HYDROmorphone OR HYDROmorphone, naloxone, ondansetron ODT OR ondansetron, [Held by provider] polyethylene glycol (PEG) 3350, sodium chloride, sodium chloride, sodium chloride, sodium chloride 0.9%, sodium chloride 0.9% [4] lactated Ringer's, 75 mL/hr, Last Rate: 75 mL/hr (09/12/24 08) CONSULT Observed: 09/12/2024 9:05 AM Status: COMPLETED Source: [facility] Interventional Radiology Con sultation Note Chief Complaint: Bleeding duodenal ulcer History of Present Illness: 69 year old male with history of bleeding duodenal ulcer requiring blood transfusions. Previously had duodenal stent placed at [place] which has passed spontaneously 2 days ago. Patient continuing to have melena. Review of Systems: (+) mild abdominal pain. No fever, chest pain, shortness of breath, N/V/D Focused Physical Examination: Gen: No acute distress, A&Ox3, non diaphoretic Heart: regular rate and rhythm, no jugular venous distension Lungs: Symmetric chest rise, normal work of breathing Abd: soft, non tender, non distended. Non rigid. No rebound or guarding. Ext: no gross deformities Skin: warm, well perfused, no obvious rashes, cellulitis or gross discoloration VITALS: Temp: [35.6 ?C (96 ?F)-37.3 ?C (99.1 ?F)] 35.6 ?C (96 ?F) Heart Rate: [64-77] 74 Resp: [16-18] 18 BP: (115-133)/(69-83) 125/78 Labs and X-ray: Lab Results Component Value Date WBC 5.5 09/12/2024 HGB 7.7 (L) 09/12/2024 HCT 23.6 (L) 09/12/2024 MCV 87.7 09/12/2024 PLT 234 09/12/2024 Lab Results Component Value Date GLUCOSE 102 09/12/2024 CALCIUM 7.9 (L) 09/12/2024 NA 141 09/12/2024 K 3.7 09/12/2024 CO2 25 09/12/2024 CL 110 (H) 09/12/2024 BUN 20 09/12/2024 CREATININE 0.65 (L) 09/12/2024 Lab Results Component Value Date ALT 6 09/09/2024 AST 25 09/09/2024 ALKPHOS 55 09/09/2024 BILITOT 0.9 09/09/2024 Lab Results Component Value Date INR 1.1 09/09/2024 INR 1.1 08/24/2024 INR 1.1 08/09/2024 PROTIME 11.9 09/09/2024 PROTIME 11.4 08/24/2024 PROTIME 11.9 08/09/2024 Case was discussed with Dr. Hardin and Dr. Moreland of surgery team. Assessment: 69 y.o. year old male with history of bleeding duodenal ulcer. Plan: Gastroduodenal artery embolization I appreciate the opportunity of cooperating in the care of this individual. Omid Goldsmith MD Interventional Radiology I personally spent 20 minutes consulting with patient, of which over 50% were spent counseling. PROGRESS NOTE Observed: 09/12/2024 7:43 AM Status: COMPLETED Source: [facility] Attestation signed by Zara Spann DO at 11/03/2024 10:34 AM I (Zara Spann) personally supervised the physician casing puller in the evaluation and development of a [...] occurred on the date noted below ASSESSMENT: Pain controlled Plan for GDA embolization Stable at this time PLAN: Gda Hold eliquies Department of General Surgery Daily Progress Note ADMIT DATE: 09/09/2024 TODAY'S DATE: 09/12/2024 SUBJECTIVE: NAEO. Pain well controlled. Tolerated diet yesterday. ROS: Noted above unless otherwise mentioned OBJECTIVE: VITALS: Temp: [35.6 ?C (96 ?F)-37.3 ?C (99.1 ?F)] 35.6 ?C (96 ?F) Heart Rate: [64-77] 74 Resp: [16-18] 18 BP: (115-133)/(69-83) 125/78 INTAKE/OUTPUT: Intake/Output Summary (Last 24 hours) at 09/12/2024 0744 Last data filed at 09/12/2024 0600 Gross per 24 hour Intake 3220 ml Output 700 ml Net 2520 ml I/O last 3 completed shifts: In: 3220 (41.3 mL/kg) [P.O.:720; I.V.:2500 (32.1 mL/kg)] Out: 700 (9 mL/kg) [Urine:700 (0.2 mL/kg/hr)] Weight: 78 kg No intake/output data recorded. PHYSICAL EXAM: Gen: NAD, A&Ox3, pain moderately controlled Heart: RRR, well perfused Lungs: symmetric chest rise, normal work of breathing, breath sounds b/l Abd: soft, mildly tender to left hemiabdomen, non distended. Non rigid. No rebound or guarding. Ext: no c/c/e no gross deformities Skin: warm, well perfused, no obvious rashes, cellulitis or gross discoloration LABS CBC: Auto WBC Date Value Ref Range Status 09/12/2024 5.5 3.6 - 10.7 10*3/uL Final 09/11/2024 6.9 3.6 - 10.7 10*3/uL Final 09/10/2024 10.2 3.6 - 10.7 10*3/uL Final Hemoglobin Date Value Ref Range Status 09/12/2024 7.7 (L) 13.0 - 18.0 g/dL Final 09/11/2024 7.6 (L) 13.0 - 18.0 g/dL Final 09/11/2024 7.7 (L) 13.0 - 18.0 g/dL Final Platelets Date Value Ref Range Status 09/12/2024 234 140 - 440 10*3/uL Final 09/11/2024 188 140 - 440 10*3/uL Final 09/10/2024 205 140 - 440 10*3/uL Final BMP: SODIUM Date Value Ref Range Status 09/12/2024 141 136 - 145 mmol/L Final 09/11/2024 141 136 - 145 mmol/L Final 09/10/2024 139 136 - 145 mmol/L Final POTASSIUM Date Value Ref Range Status 09/12/2024 3.7 3.5 - 5.1 mmol/L Final Comment: Plasma potassium values may be up to 0.5 mmol/L lower than serum values. 09/11/2024 3.9 3.5 - 5.1 mmol/L Final Comment: Plasma potassium values may be up to 0.5 mmol/L lower than serum values. 09/10/2024 3.9 3.5 - 5.1 mmol/L Final Comment: Plasma potassium values may be up to 0.5 mmol/L lower than serum values. CHLORIDE Date Value Ref Range Status 09/12/2024 110 (H) 98 - 107 mmol/L Final 09/11/2024 112 (H) 98 - 107 mmol/L Final 09/10/2024 111 (H) 98 - 107 mmol/L Final CARBON DIOXIDE Date Value Ref Range Status 09/12/2024 25 23 - 31 mmol/L Final 09/11/2024 26 23 - 31 mmol/L Final 09/10/2024 26 23 - 31 mmol/L Final UREA NITROGEN Date Value Ref Range Status 09/12/2024 20 9 - 23 mg/dL Final 09/11/2024 29 (H) 9 - 23 mg/dL Final 09/10/2024 40 (H) 9 - 23 mg/dL Final CREATININE Date Value Ref Range Status 09/12/2024 0.65 (L) 0.72 - 1.25 mg/dL Final 09/11/2024 0.60 (L) 0.72 - 1.25 mg/dL Final 09/10/2024 0.65 (L) 0.72 - 1.25 mg/dL Final Hepatic: AST (SGOT) Date Value Ref Range Status 09/09/2024 25 <34 U/L Final 09/08/2024 20 <34 U/L Final 08/25/2024 19 <34 U/L Final ALT Date Value Ref Range Status 09/09/2024 6 <40 U/L Final 09/08/2024 10 <40 U/L Final 08/25/2024 12 <40 U/L Final ALBUMIN Date Value Ref Range Status 09/09/2024 2.3 (L) 3.4 - 4.8 g/dL Final 09/08/2024 3.1 (L) 3.4 - 4.8 g/dL Final 08/25/2024 2.6 (L) 3.4 - 4.8 g/dL Final BILIRUBIN, TOTAL Date Value Ref Range Status 09/09/2024 0.9 <1.2 mg/dL Final 09/08/2024 0.7 <1.2 mg/dL Final 08/25/2024 0.4 <1.2 mg/dL Final BILIRUBIN, DIRECT Date Value Ref Range Status 09/08/2024 0.2 <0.5 mg/dL Final 08/25/2024 0.2 <0.5 mg/dL Final ALKALINE PHOSPHATASE Date Value Ref Range Status 09/09/2024 55 40 - 150 U/L Final 09/08/2024 83 40 - 150 U/L Final 08/25/2024 75 40 - 150 U/L Final Current Inpatient Medications Scheduled Meds:Scheduled Meds[1] Continuous Infusions:Continuous Meds[2] PRN Meds:PRN Meds[3] ASSESSMENT AND PLAN: 69 y.o. male with hx of bleeding duodenal ulcer and basia perforation who had duodental stent placed at [place]. He has had rebleed of this ulcer and on CT scan there is a noted migration of the stent. Patient passed the stent in BM on 09/10. - Planning for IR GDA embolization procedure today - NPO for procedure - no acute surgical intervention warranted - PO pain medications for pain control - OOBAT - DVT ppx with SCD's and lovenox - hold eliquis - Rest of management per primary medicine service - Surgery will follow Will discuss with Dr. Maria Ines Reyna MD General Surgery PGY-4 Pager # [phone] This note may have been dictated using [employer] Edition 2.6 and/or [employer] Voice Recognition Feature. The document was proofread; however, unrecognized voice recognition pad extractor tender errors may be present. [1] [Held by provider] apixaban, 5 mg, Oral, BID [Held by provider] dicyclomine, 20 mg, Oral, TID [Held by provider] docusate sodium, 100 mg, Oral, q12h enoxaparin, 40 mg, SubCUTAneous, Daily mupirocin, , Nasal, BID pantoprazole (ProtoNix) 40 mg in sodium chloride (PF) 0.9 % 10 mL injection, 40 mg, IntraVENous, BID sodium chloride 0.9%, 10 mL, IntraVENous, 2 times per day sodium chloride 0.9%, 5-40 mL, IntraVENous, q12h [2] lactated Ringer's, 75 mL/hr, Last Rate: 75 mL/hr (09/11/24 2021) [3] PRN medications: acetaminophen, HYDROmorphone OR HYDROmorphone, naloxone, ondansetron ODT OR ondansetron, [Held by provider] polyethylene glycol (PEG) 3350, sodium chloride, sodium chloride, sodium chloride, sodium chloride 0.9%, sodium chloride 0.9% 30 Observed: 09/12/2024 3:28 AM Status: COMPLETED Source: [facility] [place] [facility] Problem: Knowledge Deficit Goal: Patient/family/caregiver demonstrates understanding of disease process, treatment plan, medications, and discharge instructions Outcome: ProgressingProblem: Potential for Compromised Skin Integrity Goal: Skin Integrity is Maintained or Improved Outcome: ProgressingGoal: Nutritional status is improving Outcome: ProgressingProblem: Urinary Incontinence Goal: Perineal skin integrity is maintained or improved Outcome: Progressing MAGNESIUM Collected: 2:35 AM Status: F Source: [facility] TYPE CODE TESTS RESULT OUT OF RANGE REFERENCE UNITS LAB [id number] MAGNESIUM 1.8 1.6-2.6 mg/dL Result Comment: ORDER COMMEN TS: Higher values can be expected in females during menses. Performed By: #### [id number], L AB113, LAB15 #### Board Catcher: NICOLA HOWARD ([id number]) [facility] [employer] PHOSPHORUS Collected: 2:35 AM Status: F Source: [facility] TYPE CODE TESTS RESULT OUT OF RANGE REFERENCE UNITS LAB [id number] PHOSPHORUS 3.6 2.3-4.7 mg/dL Performed By: #### [id number], L AB113, LAB15 #### Board Catcher: NICOLA HOWARD ([id number]) [facility] ([facility]) [address] [place] [address] BASIC METABOLIC PANEL Collected: 2024 2:35 AM Status: F Source: [facility] TYPE CODE TESTS RESULT OUT OF RANGE REFERENCE UNITS LAB [id number] SODIUM 141 136-145 mmol/L LAB [id number] POTASSIUM 3.7 3.5-5.1 mmol/L Result Comment: Plasma potas sium values may be up to 0.5 mmol/L lower than serum values. LAB [id number] CHLORIDE 110 High 98-107 mmol/L LAB [id number] CARBON DIOXIDE 25 23-31 mmol/L LAB [id number] UREA NITROGEN 20 9-23 mg/dL LAB [id number] CREATININE 0.65 Low 0.72-1.25 mg/dL LAB [id number] GLUCOSE 102 82-115 mg/dL LAB 1809610 CALCIUM 7.9 Low 8.8-10.0 mg/dL LAB [id number] ANION GAP (ROMAN, CALCULATED) 6 3-13 mmol/L LAB 6421680 GLOMERULAR FILTRATION RATE ML/MIN/1.73 SQ M.PREDICTED >90.0 >60.0 mL/min/1. 73m*2 Result Comment: Calculation based on the Chronic Kidney Disease Epidemiology Collaboration (CKD-EPI) equation refit without adjustment for race Performed By: #### [id number], L AB113, LAB15 #### Board Catcher: NICOLA HOWARD ([id number]) [facility] ([facility]) [address] [place] [address] CBC WITH AUTO DIFFERENTIAL Collected: 09/12/2024 2:35 AM Status: F Source: [facility] TYPE CODE TESTS RESULT OUT OF RANGE REFERENCE UNITS LAB [id number] WBC 5.5 3.6-10.7 10*3/uL LAB 2106472 RBC 2.69 Low 4.40-5.90 10*6/uL LAB 9227819 HEMOGLOBIN 7.7 Low 13.0-18.0 g/dL LAB 6769953 HEMATOCRIT 23.6 Low 40.0-52.0 % LAB [id number] MCV 87.7 77.0-99.0 fL LAB 4197844 MCH 28.6 26.0-34.0 pg LAB 9743502 MCHC 32.6 30.5-36.0 % LAB 3700412 RDW 15.9 High 11.5-15.0 % LAB [id number] PLATELET COUNT 234 140-440 10*3/uL LAB 0634396 MPV 9.5 9.0-12.7 fL LAB 254 NRBC 0.0 0.0-2.0 /100 WBCs LAB [id number] NEUTROPHILS RELATIVE 69.6 38.0-82.0 % LAB 5697655 LYMPHOCYTES RELATIVE 17.4 15.0-45.0 % LAB [id number] MONOCYTES RELATIVE 6.6 5.0-13.0 % LAB 4309500 EOSINOPHILS RELATIVE 5.5 0.0-6.0 % LAB 4045511 BASOPHILS RELATIVE 0.5 0.0-2.0 % LAB 9584903 IMMATURE GRANS % 0.4 0.0-2.0 % LAB [id number] NEUTROPHILS ABSOLUTE 3.8 1.8-7.5 10*3/uL LAB 6473497 LYMPHOCYTES ABSOLUTE 1.0 1.0-4.3 10*3/uL LAB 1602621 MONOCYTES ABSOLUTE 0.4 0.0-0.9 10*3/uL LAB 9250370 EOSINOPHILS ABSOLUTE 0.3 0.0-0.5 10*3/uL LAB 4379320 BASOPHILS ABSOLUTE 0.0 0.0-0.2 10*3/uL LAB 156164 IMMATURE GRANS ABSOLUTE 0.0 <0.1 10*3/uL Performed By: #### [id number] # ### Board Catcher: NICOLA HOWARD ([id number]) [facility] ([facility]) [address] [place] [address] CT ABDOMEN PELVIS ANGIOGRAM W AND/OR WO IV CONTRAST Observed: 09/11/2024 5:21 PM Status: F Source: [facility] Patient Name: LAINE GARCIA : 1955 Exam Date/Time: 09/11/2024 14:15 Procedure: CT ABDOMEN PELVIS ANGIOGRAM W AND/OR WO IV CONTRAST Ordering Provider: PECK GEORGE Reason For Exam: bleeding duodenal ulcer, eval GDA patency CTA abdomen and pelvis with and without contrast HISTORY: Bleeding duodenal ulcer, evaluate gastroduodenal artery patency Technique: 1 mm axial images from the lung bases to the pubic symphysis with and without intravenous contrast, 3-D rendering performed by az on an independent workstation Dose reduction was employed with automated exposure control. Slight aortoiliac calcified atherosclerosis. The celiac trunk, SMA, OLEKSANDR and gastroduodenal artery are widely patent. No evidence of active GI bleeding. Small hepatic cysts. Bilateral small renal cysts. Follow up imaging of the cysts is not required. IVC filter. No bowel inflammation or obstruction. No free fluid. The bladder is unremarkable. IMPRESSION: No acute findings. Report Dictated on Electronically Signed By: Brady Roe MD Electronically Signed Date/Time: 09/11/2024 5:21 PM EDT PROGRESS NOTE Observed: 09/11/2024 3:45 PM Status: COMPLETED Source: [facility] PHYSICAL THERAPY [facility] Initial Evaluation Name/MRN: Laine Garcia ([id number]) Evaluation Date: 09/11/2024 Date of : 1955 Admission Date: 09/09/2024 9:41 AM Age: 69 y.o. Room[facility]Bed: [facility] A Discharge Recommendation: Home with assist PRN Equipment Needed: No Assessment IMPRESSION: Pt presented by [facility] from [place] ED for concerns for GI bleed, s/p EGD 09/08 showing adherent clot in cavity. Hx of duodenal perforation with lap wedge resection 08/10 and lap lysis of adhesion 08/09. Pt demonstrates with baseline level of mobility, indep with bed mobility, transfers and amb x 200' without assistive device without LOB or path deviation. Pt declines further therapy needs at this time. He will be discharged from PT, please re-consult if there is a change in status. Rec home with family assist as needed. Admitting Diagnosis: hematemesis Prognosis: excellent Performance Deficits /Impairments: Increased Pain Decision Making: Low Complexity Subjective Pt reclined in bed with family present. Agreeable to therapy. Denies N/t. Reports some nausea after eating lunch. Pain: 0-10 pain scale: 1-2/10 Location: abdomen Past Medical History: Medical History[1] Past Surgical History: Surgical History[2] Admission Diagnosis: Patient Active Problem List Diagnosis Date Noted Hematemesis 09/09/2024 Abdominal pain 08/25/2024 Severe malnutrition ([facility]) ([facility]) 08/12/2024 Duodenal ulceration 08/09/2024 Pneumoperitoneum 08/09/2024 Duodenal perforation ([facility]) ([facility]) 08/09/2024 Medical Precautions: No active isolations Proper PPE donned/doffed in accordance with facility standards. Fall Risk: Perdomo Fall Risk Score: 60 (High Risk) Compression pumps in place Precautions/Restrictions: N/A Family/Caregiver Present: spouse and child(opal) Overall Cognitive Status: WFL Overall Orientation Status: Oriented x4 Vision: wears glasses at all times and and are being used during the eval Hearing: normal Social/Functional History Patient admitted from home. Lives With: Family Type of Home: single family home Home Layout: Multi-Level Home and Able to Live on Main Level Home Access: Level Entry Bathroom Shower/Tub: Toilet: N/A Home Equipment: none Homemaking Responsibilities: Independent Receives Help From: None Active Car Spotter: N/A Prior Level of Function Prior Level of ADL Function: Independent Prior Level of Mobility: Independent; Device: None Prior Level of Transfers: Independent Objective Lower Extremity Assessment AROM: WFL PROM: Not assessed this session Strength: Lower Extremity Strength Right Left Hip Flexion 4 4 Hip Abduction Hip Extension Hip External Rotation (ER) Hip Internal Rotation (IR) Knee Extension 5 5 Knee Flexion Ankle Dorsiflexion (DF) 5 5 Ankle Plantarflexion (PF) Inversion Eversion Sensation: WFL Balance: Not assessed this session Bed Mobility: Supine to sit: Independent Transfers Sit to stand: Independent Pt using bathroom with family assist post session. Ambulation Ambulation 1 Assistive device(s) used: None Assist level: Independent Distance (ft): 200' Quality of gait: No gait deviations Outcome Measures AM-PAC How much HELP from another person do you currently need Turning from your back to your side while in a flat bed without using bedrails?: None Moving from lying on your back to sitting on the side of a flat bed without using bedrails?: None Moving to and from a bed to a chair (including a wheelchair)?: None Standing up from a chair using your arms (wheelchair or bedside chair)?: None Walking in a hospital room?: None Stair climbing assessed?: No (no steps at home) AM-PAC Inpatient Mobility Raw Score (No Stairs) : 20 [facility] Score: Walked 25 ft or more (i.e. walked outside of room) Plan No skilled acute PT indicated at this time. Please reconsult should changes occur. Safety/Education Safety Safety Devices in place: call light within reach, no alarms engaged upon entry, municipal clerk present, and family assisting pt in bathroom, educated to plug in compression pumps when done using bathroom. Restraints: N/A Education Education Given To: patient and spouse Education Provided: PT Role and Plan of Care Education Method: Verbal Barriers to Learning: None Education Outcome: Verbalized Understanding Goals Patient Stated Goal: none stated Therapy Time Individual Co-Treatment Co-Evaluation Time In 1535 Time Out 1544 Minutes 9 Brenna Aguilar, PT Patient's Physical Therapy Plan of Care supervision is transferred to a [facility] Therapy Services Physical Therapist. Goals and/or treatment plan was established in collaboration with patient/family/other representatives. [1] Past Medical History: Diagnosis Date MVP (mitral valve prolapse) Pulmonary embolism (HCC) [2] Past Surgical History: Procedure Laterality Date HERNIA REPAIR OTHER SURGICAL HISTORY N/A 08/10/2024 APAROSCOPY, DIAGNOSTIC, LYSIS OF ADHESIONS, EGD SHOULDER SURGERY [id number] Observed: 09/11/2024 3:03 PM Status: COMPLETED [facility] Care Management Progress Not e 09/11/24 0802 Rapid Rounds Attendance Restaurant Host Planned Discharge Disposition Home Today we still await Clinical stability;Symptomatic control Spoke with patient, introduced self and explained role. S/P previous basia takedown with wedge resection due to perforation-returned with RLQ pain, duodenal stent passed with bowel movement. Currently monitoring hgb, followed by general surgery and GI. DCP home with family. CM will continue to follow. Care Managment Initial Assessment Date: 09/11/2024 Patient Name: Laine Garcia : 1955 Patient Information Source of Information: Patient Cognition/Language: WFL - Within Functional Limits Permission given to speak with patient business process representative/caregiver as indicated: Confirmation of Payer with patient/family: Payer Name: [employer] : No Confirmation of Primary Care Physician: Confirmed PCP Name: Dante Gurrola Seen in last 2 years?: Yes Primary Caregiver: Self If assistance needed, confirmed caregiver ready, willing and able to care for patient at discharge: Yes ( Rachana, Daughter Grace) Confirmed with: Living Arrangements Current Residence: House Number of Floors 2 Number of Entry Steps: Bed/Bath Levels: Both second floor Facility: Facility Name: Plan to Return: Lives with: Spouse/significant other Support Systems: Spouse/significant other, Children, Family members Activities of Daily Living Ambulation: Independent Bathing/Dressing: Independent Elimination/Continence/Toileting: Independent Feeding: Independent Who Assists with Activities of Daily Living: Instrumental Activities of Daily Living Prescription Coverage: Yes Pharmacy Used: [facility] Medication Management: Independent Transportation/Shopping: Transportation Mode: Public transportation Needs Assistance with Transportation at Discharge: Yes Meal Preparation: Assistance Provider Meal Prep Assistance Provider Name: Laundry/Cleaning: Assistance Provider Laundry/Cleaning Assistance Provider Name: Finances/Bill Paying: Independent Communication: Independent Types of Care Services/Equipment Utilized Care Services: Dialysis Type: NA Durable Medical Equipment: (owns walker and cane) Patient's Goal/Discharge Plan Patient expects to be discharged to: Home Discharge Planning Actions: Continue to follow Patient's Choice Rights and [employer] and Collaborative Relationships Disclosed as Indicated for Post-Acute Care: Interdisciplinary Team Engagement: Social Work Referral for: Rachana Stringer RN PROGRESS NOTE Observed: 09/11/2024 1:01 PM Status: COMPLETED Source: [facility] Hospitalist Progress Note 09/11/2024 Subjective: Admit Date: 09/09/2024 PCP: Dante Gurrola Room#: [id number] A BRIEF HOSPITAL COURSE: Laine is a 69 M with PMH of Hx is significant for duodenual perforation with recent laparoscopic wedge resection on 08/10/24 and laparoscopic lysis of adhesions on 08/09/24, Mitral valve prolapse, and pulmonary embolism. Takes eliquis at home. Presents from [place] ED using [email or web address] flight with concerns for acute upper GI bleeding. CT at [place] at the time showed a migrated stent into the colon. Admitted to ICU. S/p 2 units of PRBC on 09/08. Evaluated by GI and gen surgery, underwent EGD - on 09/11 noted for Non-bleeding deep cavitary duodenal ulcer with an adherent clot in the cavity. Unable to remove clot from the deep ulcer cavitery. Recs to monitor BMs for passing stent, continue PPI infusion. If this ulcer bleeds again then patient will need IR consult. Patient did pass stent on 09/10. Transferred out of ICU on 09/11. Interval History: Seen and evaluated this a.m., resting in bed. Family present at the bedside. Patient reports feeling overall better. Complains of dark bowel movements. Tolerating diet. Discussed plan of care with the patient and family at the bedside and all questions answered. Adult diet Easy to Chew 24HR INTAKE/OUTPUT: Intake/Output Summary (Last 24 hours) at 09/11/2024 1302 Last data filed at 09/11/2024 0917 Gross per 24 hour Intake 2500 ml Output -- Net 2500 ml Past Medical History: Medical History[1] LABS: CBC: Recent Labs 09/09/24 1043 09/09/24 1819 09/10/24 0513 09/10/24 1226 09/10/24 1805 09/11/24 0017 09/11/24 0619 WBC 15.1* -- 10.2 -- -- -- 6.9 RBC 2.70* -- 2.43* -- -- -- 2.63* HGB 7.8* < > 7.1* < > 7.9* 7.7* 7.6* HCT 24.3* < > 21.5* < > 24.3* 23.1* 22.9* MCV 90.0 -- 88.5 -- -- -- 87.1 RDW 15.5* -- 16.0* -- -- -- 15.9* PLT 211 -- 205 -- -- -- 188 < > = values in this interval not displayed. BMP: Recent Labs 09/09/24 1043 09/10/24 0137 09/11/24 0017 NA 141 139 141 K 5.0 3.9 3.9 CL 110* 111* 112* CO2 25 26 26 BUN 30* 40* 29* CREATININE 0.66* 0.65* 0.60* GLUCOSE 156* 110 99 CALCIUM 7.1* 7.2* 7.7* ANIONGAP 6 2* 3 LIVER PROFILE: Recent Labs 09/08/24 1425 09/09/24 1043 AST 20 25 ALT 10 6 BILITOT 0.7 0.9 ALKPHOS 83 55 PROT 6.6 4.9* PT/INR: Recent Labs 09/09/24 1043 PROTIME 11.9 INR 1.1 CARDIAC ENZYMES: No results for input(s): TROPONINI in the last 72 hours. Procalcitonin: No results found for: PROCAL COVID-19 PCR: No results for input(s): COVID19 in the last 72 hours. Objective: Vitals: BP 115/83 (BP Location: Left arm, Patient Position: Sitting) Pulse 77 Temp 36.3 ?C (97.4 ?F) (Temporal) Resp 16 Wt 171 lb 15.3 oz (78 kg) SpO2 98% BMI 23.98 kg/m? Pulse Ox: SpO2 Av.3 % Min: 95 % Max: 98 % Supplemental O2: Physical Exam Vitals and nursing note reviewed. Cardiovascular: Rate and Rhythm: Normal rate. Pulses: Normal pulses. Heart sounds: Normal heart sounds. Pulmonary: Effort: No respiratory distress. Breath sounds: Normal breath sounds. Musculoskeletal: Right lower leg: No edema. Left lower leg: No edema. Skin: General: Skin is warm and dry. Capillary Refill: Capillary refill takes less than 2 seconds. Neurological: Mental Status: He is alert and oriented to person, place, and time. Medications: Scheduled PRN Scheduled Meds[2] PRN Meds[3] Continuous Continuous Meds[4] Assessment Data: (CAT1) Reviewed 3 or more notes from different specialty or health system (each=1). (CAT1) Reviewed 3 or more labs/studies ordered by another provider not previously counted (each=1, panels count as 1). (LOW: 2x CAT1 or independent historian MOD: 3x CAT1 or 1x CAT3 EXTENSIVE: 3x CAT1 and 1x CAT3) Acute, acute on chronic, unstable/uncontrolled chronic problems/diagnoses: Rebleeding of duodenal ulcer S/p EGD on 09/08 with adherent clot, no active bleeding. Further management of any GI bleeding deferred to surgery/IR per GI there is location and depth of ulcer is too deep. Repeat EGD recommended in 2 months to check healing of ulcer Continue holding Eliquis. Neurosurgery following, appreciate recommendations History bleeding of duodenal ulcer 08/07/24 History of duodenal perforation 08/10/24-s/p laparoscopic patch resection of gastric perforation Hematemesis-resolved Acute anemia-s/p 2 units of PRBC transfusion on 09/09 and 09/10. Monitor H&H closely. H&H stable this a.m. Transfuse for hemoglobin less than 7 Stable chronic problems affecting care, new non-acute diagnoses: As above Plan As a result of the above findings & factors, the following mgmt was pursued: - Plan as above - am labs, replace lytes prn - PT/OT/CM/SW - delirium precautions: increase activity and limit nighttime disturbances - DVT prophylaxis: enoxaparin and encourage ambulation Complexity: Acute illness or injury posing a threat to life or body function (HIGH). Chronic illness with severe exacerbation, progression, or side effect of tx (HIGH). Risk: Admission to hospital-level care was considered or occurred (HIGH). Advance Directive: Full Code Anticipated Discharge - Date -09/13? - Location - Home - Pending the following -above eval, clinical progress Total time spent (which include face to face and non face to face encounters) : 55 minutes Extended Emergency Contact Information Primary Emergency Contact: Rachana Garcia Mobile Relation: Spouse Applications Systems Analyst needed? No Secondary Emergency Contact: Melisa,Grace Relation: Daughter Applications Systems Analyst needed? No Aury Whitmore NP Division of Hospitalist Medicine [facility] [1] Past Medical History: Diagnosis Date MVP (mitral valve prolapse) Pulmonary embolism (HCC) [2] [Held by provider] apixaban, 5 mg, Oral, BID [Held by provider] dicyclomine, 20 mg, Oral, TID [Held by provider] docusate sodium, 100 mg, Oral, q12h enoxaparin, 40 mg, SubCUTAneous, Daily mupirocin, , Nasal, BID pantoprazole (ProtoNix) 40 mg in sodium chloride (PF) 0.9 % 10 mL injection, 40 mg, IntraVENous, BID sodium chloride 0.9%, 10 mL, IntraVENous, 2 times per day sodium chloride 0.9%, 5-40 mL, IntraVENous, q12h [3] PRN medications: acetaminophen, HYDROmorphone OR HYDROmorphone, naloxone, ondansetron ODT OR ondansetron, [Held by provider] polyethylene glycol (PEG) 3350, sodium chloride, sodium chloride, sodium chloride, sodium chloride 0.9%, sodium chloride 0.9% [4] PROGRESS NOTE Observed: 09/11/2024 10:48 AM Status: COMPLETED Source: [facility] Nutrition rescreen completed . Chart reviewed. Patient to be monitored and followed by the diet electrical controls technician. PROGRESS NOTE Observed: 09/11/2024 8:11 AM Status: COMPLETED Source: [facility] Department of Internal Medic ine Gastroenterology Progress Note SUBJECTIVE: GI following for GI bleed. 69-year-old male with significant past medical history of after finding, but prolapse, recent DVT GERD status post and gastric perforation status post takedown of Basia with laparoscopic wedge resection 08/10/2024. Pertinent history includes: Admitted at [facility] s/p bleeding duodenal ulcer with visible vessel 08/2024. He was transferred to [facility] from [place] with duodenal perforation. He is s/p diagnostic laparoscopy 08/09/24 and laparoscopic wedge resection of gastric perforation 08/10/24. Discharged from hospital 08/13/2024. Readmitted to hospital 08/24/2024. Plan for duodenal stent removal 09/07/24 but patient took Eliquis and this could not be completed. Patient had hematemesis and syncope and presented to [place] ED on 09/08/24 then transferred to [facility]. Patient had EGD on 09/08/24 that revealed normal esophagus, normal stomach, nonbleeding deep duodenal ulcer with adherent clot in the cavity with no fresh blood or active bleeding. Old clip on D2 wall. Patient status post 2 units PRBC since admission 09/08/24 and hemoglobin this morning 7.6. Patient passed duodenal stent yesterday. He reports feeling well this AM. Still with some mild epigastric pain, much improved form previous. Just had small BM, in hat in bathroom, black. Medications Scheduled Meds:Current Medications[1] OBJECTIVE VITALS: BP 137/75 Pulse 59 Temp 36.4 ?C (97.6 ?F) (Temporal) Resp 16 Wt 171 lb 15.3 oz (78 kg) SpO2 95% BMI 23.98 kg/m? Average, Min, and Max for last24 hours Vitals: TEMPERATURE: Temp Av.3 ?C (97.4 ?F) Min: 36 ?C (96.8 ?F) Max: 36.6 ?C (97.9 ?F) RESPIRATIONS RANGE: Resp Av.1 Min: 13 Max: 21 PULSE RANGE: Pulse Av.1 Min: 57 Max: 75 BLOOD PRESSURE RANGE: Systolic (24hrs), Av , Min:103 , Max:137 ; Diastolic (24hrs), Av, Min:65, Max:83 PULSE OXIMETRY RANGE:SpO2 Av.9 % Min: 93 % Max: 100 % I/O last 3 completed shifts: In: 2289.7 (29.4 mL/kg) [P.O.:360; I.V.:1319 (16.9 mL/kg); Blood:610.7] Out: 1200 (15.4 mL/kg) [Urine:1200 (0.4 mL/kg/hr)] Weight: 78 kg Constitutional: No acute distress. Well-nourished. Well hydrated Eyes: Pupils are equal and round; Conjunctiva are not injected; Sclera are non-icteric. ENT: Ears/nose without external abnormalities. Oral mucosa is pink and moist. Respiratory: Clear to auscultation bilaterally without any added sounds. Effort is normal Heart: Regular, Normal S1 and S2. No murmur; No added sounds. Abdomen: Normal BS, soft, mild epigastric tenderness, non-distended; no hepatomegaly. Extremities/Skin: No LE edema; Skin warm to touch and well perfused. Pale. Musculoskeletal: Head - normocephalic. Neck - supple Psychiatric: AAO x 3, answers appropriately, normal mood, normal affect. Non-focal. Data Recent blood work, radiologic study and endoscopic study were reviewed with the patient. CBC: Recent Labs 09/09/24 1043 09/09/24 1819 09/10/24 0513 09/10/24 1226 09/10/24 1805 09/11/24 0017 09/11/24 0619 WBC 15.1* -- 10.2 -- -- -- 6.9 RBC 2.70* -- 2.43* -- -- -- 2.63* HGB 7.8* < > 7.1* < > 7.9* 7.7* 7.6* HCT 24.3* < > 21.5* < > 24.3* 23.1* 22.9* MCV 90.0 -- 88.5 -- -- -- 87.1 MCH 28.9 -- 29.2 -- -- -- 28.9 MCHC 32.1 -- 33.0 -- -- -- 33.2 RDW 15.5* -- 16.0* -- -- -- 15.9* PLT 211 -- 205 -- -- -- 188 MPV 9.8 -- 9.5 -- -- -- 9.7 < > = values in this interval not displayed. CMP: Recent Labs 09/08/24 1425 09/09/24 1043 09/10/24 0137 09/11/24 0017 NA 139 141 139 141 K 3.6 5.0 3.9 3.9 CL 106 110* 111* 112* CO2 28 25 26 26 BUN 13 30* 40* 29* CREATININE 0.70* 0.66* 0.65* 0.60* GLUCOSE 107 156* 110 99 CALCIUM 8.6* 7.1* 7.2* 7.7* PROT 6.6 4.9* -- -- BILITOT 0.7 0.9 -- -- ALKPHOS 83 55 -- -- AST 20 25 -- -- ALT 10 6 -- -- PT/INR: Recent Labs 09/09/24 [address] AP 09/08/24 FINDINGS: 1. Previously placed gastric/duodenal stent has now migrated into the right colon with tip at the level of the hepatic flexure. 2. A clip is seen in the duodenum which has not migrated. Perigastric and periduodenal tissues show vague soft tissue thickening without definite free air with wall thickening (although focal small infectious process difficult to exclude at this time). Slight narrowing midportion duodenum between mesenteric vessels and aorta. 3. Small hepatic and renal cysts, IVC filter in good position with small metallic foreign matter by the inferior aspect left renal vein, degenerative facet and disc changes lumbar spine, prostatic enlargement, prior posterior wall stomach surgery. Endoscopic Review EGD 08/07/24- Cecily Crews, PA EGD 09/09/24 IMPRESSION/RECOMMENDATIONS: GIB Cratered duodenal ulcer- EGD 09/08/24, adherent clot, no active bleeding Hematemesis- resolved History of bleeding duodenal ulcer- 08/07/2024 oozing duodenal ulcer with visible vessel; treated with APC, clips placed History of duodenal perforation- 08/10/2024 s/p laparoscopic wedge resection of gastric perforation Acute anemia- s/p 2 units PRBC since , Hgb 7.6 this AM - Further management of any GI bleeding deferred to surgery/IR as ulcer is deep and no further GI interventions are recommended/possible 2/2 location and depth of ulcer - No NSAIDs - Repeat EGD in 2 months to check healing of ulcer, will send records to Dr. Avendano in [place] - GI soft diet and advance as tolerated - Continue medical management and supportive care per primary team - Continue to monitor H/H and transfuse per primary team - Continue Protonix 40 mg BID The GI/Liver consult service will sign off. Please call if there are any questions, concerns or change of patient's GI condition. Thanks. I have independently seen, interviewed, and examined the patient. I have reviewed the case with the Medical Student/Resident/PA and reviewed their consult/progress note in addition to personally discussing the patient. Included in my assessment was review of the information contained in this progress note, the patient's medical record, and independent review of labs, radiology reports, and images when appropriate. I agree with all of the above. Approximately 25 minutes was involved with the clinical decision making including discussions with patient and family at bedside and later with surgery attending Dr. Spann. EGD images were personally reviewed showing a large cavitary ulcer filled with clot. The patient and family are declining colonoscopy at present which is reasonable given significant upper GI findings. At present, there is no further endoscopic indications and further bleeding episodes may require surgical intervention. [1] Current Facility-Administered Medications: acetaminophen (Ofirmev) IVPB 1,000 mg, 1,000 mg, IntraVENous, q6h PRN, Aliya Antonio MD, Stopped at 09/09/24 190 [Held by provider] apixaban (Eliquis) tablet 5 mg, 5 mg, Oral, BID, Aliya Antonio MD[Held by provider] dicyclomine (Bentyl) tablet 20 mg, 20 mg, Oral, TID, Aliya Antonio MD [Held by provider] docusate sodium (Colace) capsule 100 mg, 100 mg, Oral, q12h, Aliya Antonio MD HYDROmorphone (Dilaudid) injection 0.5 mg, 0.5 mg, IntraVENous, q4h PRN OR HYDROmorphone (Dilaudid) injection 1 mg, 1 mg, IntraVENous, q4h PRN, Teresita Castaneda MD lactated Ringer's infusion, 100 mL/hr, IntraVENous, Continuous, Aliya Antonio MD, Last Rate: 100 mL/hr at 09/10/241854, 100 mL/hr at 09/10/241854 mupirocin (Bactroban) 2 % ointment, , Nasal, BID, Teresita Castaneda MD naloxone (Narcan) injection 0.4 mg, 0.4 mg, IntraVENous, q5 min PRN, Aliya Antonio MDondansetron ODT (Zofran-ODT) disintegrating tablet 4 mg, 4 mg, Oral, q8h PRN OR ondansetron (Zofran) injection 4 mg, 4 mg, IntraVENous, q6h PRN, Aliya Antonio MDpantoprazole (ProtoNix) 40 mg in sodium chloride (PF) 0.9 % 10 mL injection, 40 mg, IntraVENous, BID, Teresita Castaneda MD, 40 mg at 09/10/242101 [Held by provider] polyethylene glycol (PEG) 3350 (Miralax) packet 17 g, 17 g, Oral, Daily PRN, Aliya Antonio MD sodium chloride 0.9 % infusion, 5-250 mL/hr, IntraVENous, PRN, BARRIE Encarnacion CNP sodium chloride 0.9 % infusion, 250 mL/hr, IntraVENous, PRN, Teresita Castaneda MD sodium chloride 0.9 % infusion, 250 mL/hr, IntraVENous, PRN, Teresita Castaneda MD sodium chloride 0.9% (NS) flush 10 mL, 10 mL, IntraVENous, 2 times per day, BARRIE Encarnacion CNP, 10 mL at 09/10/24 2115 sodium chloride 0.9% (NS) flush 10 mL, 10 mL, IntraVENous, PRN, BARRIE Encarnacion CNP sodium chloride 0.9% (NS) flush 5-40 mL, 5-40 mL, IntraVENous, q12h, Aliya Antonio MD, 10 mL at 09/10/24 0844 sodium chloride 0.9% (NS) flush 5-40 mL, 5-40 mL, IntraVENous, PRN, Aliya Antonio MD PROGRESS NOTE Observed: 09/11/2024 7:40 AM Status: COMPLETED Source: [facility] Attestation signed by Zara Spann DO at 11/03/2024 10:33 AM I (Zara Spann) personally supervised the physician casing puller in the evaluation and development of a [...] occurred on the date noted below ASSESSMENT: No plan for gi scope Ok for diet PLAN: Pain control Ambulate No new issues. Department of General Surgery Daily Progress Note ADMIT DATE: 09/09/2024 TODAY'S DATE: 09/11/2024 SUBJECTIVE: Still having L sided abdominal pain, improved since yesterday. Still has black stools. No fevers, chills, nausea, vomiting, SOB or chest pain. ROS: Noted above unless otherwise mentioned OBJECTIVE: VITALS: Temp: [36 ?C (96.8 ?F)-36.6 ?C (97.9 ?F)] 36.4 ?C (97.6 ?F) Heart Rate: [57-75] 59 Resp: [12-21] 16 BP: (103-137)/(65-83) 137/75 INTAKE/OUTPUT: Intake/Output Summary (Last 24 hours) at 09/11/2024 0740 Last data filed at 09/10/2024 1300 Gross per 24 hour Intake 670 ml Output 900 ml Net -230 ml I/O last 3 completed shifts: In: 2289.7 (29.4 mL/kg) [P.O.:360; I.V.:1319 (16.9 mL/kg); Blood:610.7] Out: 1200 (15.4 mL/kg) [Urine:1200 (0.4 mL/kg/hr)] Weight: 78 kg No intake/output data recorded. PHYSICAL EXAM: Gen: NAD, A&Ox3, pain moderately controlled Heart: RRR, well perfused Lungs: symmetric chest rise, normal work of breathing, breath sounds b/l Abd: soft, tender to left hemiabdomen, non distended. Non rigid. No rebound or guarding. Ext: no c/c/e no gross deformities Skin: warm, well perfused, no obvious rashes, cellulitis or gross discoloration LABS CBC: Auto WBC Date Value Ref Range Status 09/11/2024 6.9 3.6 - 10.7 10*3/uL Final 09/10/2024 10.2 3.6 - 10.7 10*3/uL Final 09/09/2024 15.1 (H) 3.6 - 10.7 10*3/uL Final Hemoglobin Date Value Ref Range Status 09/11/2024 7.6 (L) 13.0 - 18.0 g/dL Final 09/11/2024 7.7 (L) 13.0 - 18.0 g/dL Final 09/10/2024 7.9 (L) 13.0 - 18.0 g/dL Final Platelets Date Value Ref Range Status 09/11/2024 188 140 - 440 10*3/uL Final 09/10/2024 205 140 - 440 10*3/uL Final 09/09/2024 211 140 - 440 10*3/uL Final BMP: SODIUM Date Value Ref Range Status 09/11/2024 141 136 - 145 mmol/L Final 09/10/2024 139 136 - 145 mmol/L Final 09/09/2024 141 136 - 145 mmol/L Final POTASSIUM Date Value Ref Range Status 09/11/2024 3.9 3.5 - 5.1 mmol/L Final Comment: Plasma potassium values may be up to 0.5 mmol/L lower than serum values. 09/10/2024 3.9 3.5 - 5.1 mmol/L Final Comment: Plasma potassium values may be up to 0.5 mmol/L lower than serum values. 09/09/2024 5.0 3.5 - 5.1 mmol/L Final Comment: Plasma potassium values may be up to 0.5 mmol/L lower than serum values. CHLORIDE Date Value Ref Range Status 09/11/2024 112 (H) 98 - 107 mmol/L Final 09/10/2024 111 (H) 98 - 107 mmol/L Final 09/09/2024 110 (H) 98 - 107 mmol/L Final CARBON DIOXIDE Date Value Ref Range Status 09/11/2024 26 23 - 31 mmol/L Final 09/10/2024 26 23 - 31 mmol/L Final 09/09/2024 25 23 - 31 mmol/L Final UREA NITROGEN Date Value Ref Range Status 09/11/2024 29 (H) 9 - 23 mg/dL Final 09/10/2024 40 (H) 9 - 23 mg/dL Final 09/09/2024 30 (H) 9 - 23 mg/dL Final CREATININE Date Value Ref Range Status 09/11/2024 0.60 (L) 0.72 - 1.25 mg/dL Final 09/10/2024 0.65 (L) 0.72 - 1.25 mg/dL Final 09/09/2024 0.66 (L) 0.72 - 1.25 mg/dL Final Hepatic: AST (SGOT) Date Value Ref Range Status 09/09/2024 25 <34 U/L Final 09/08/2024 20 <34 U/L Final 08/25/2024 19 <34 U/L Final ALT Date Value Ref Range Status 09/09/2024 6 <40 U/L Final 09/08/2024 10 <40 U/L Final 08/25/2024 12 <40 U/L Final ALBUMIN Date Value Ref Range Status 09/09/2024 2.3 (L) 3.4 - 4.8 g/dL Final 09/08/2024 3.1 (L) 3.4 - 4.8 g/dL Final 08/25/2024 2.6 (L) 3.4 - 4.8 g/dL Final BILIRUBIN, TOTAL Date Value Ref Range Status 09/09/2024 0.9 <1.2 mg/dL Final 09/08/2024 0.7 <1.2 mg/dL Final 08/25/2024 0.4 <1.2 mg/dL Final BILIRUBIN, DIRECT Date Value Ref Range Status 09/08/2024 0.2 <0.5 mg/dL Final 08/25/2024 0.2 <0.5 mg/dL Final ALKALINE PHOSPHATASE Date Value Ref Range Status 09/09/2024 55 40 - 150 U/L Final 09/08/2024 83 40 - 150 U/L Final 08/25/2024 75 40 - 150 U/L Final Current Inpatient Medications Scheduled Meds:Scheduled Meds[1] Continuous Infusions:Continuous Meds[2] PRN Meds:PRN Meds[3] ASSESSMENT AND PLAN: 69 y.o. male with hx of bleeding duodenal ulcer and basia perforation who had duodental stent placed at [place]. He has had rebleed of this ulcer and on CT scan there is a noted migration of the stent. Patient passed the stent in BM on 09/10. - GI - no plans for further endoscopic procedures - if patient hgb drop persists, consider repeat scope(s) vs IR - no acute surgical intervention warranted - monitor hgb closely - Diet: ok to advance to full liquids - PO pain medications for pain control - OOBAT - DVT ppx with SCD's and lovenox - hold eliquis Will discuss with Dr. Maria Ines Hardin MD General Surgery PGY-3 09/11/24 7:40 AM This note may have been dictated using [employer] Edition 2.6 and/or [employer] Voice Recognition Feature. The document was proofread; however, unrecognized voice recognition pad extractor tender errors may be present. [1] [Held by provider] apixaban, 5 mg, Oral, BID [Held by provider] dicyclomine, 20 mg, Oral, TID [Held by provider] docusate sodium, 100 mg, Oral, q12h mupirocin, , Nasal, BID pantoprazole (ProtoNix) 40 mg in sodium chloride (PF) 0.9 % 10 mL injection, 40 mg, IntraVENous, BID sodium chloride 0.9%, 10 mL, IntraVENous, 2 times per day sodium chloride 0.9%, 5-40 mL, IntraVENous, q12h [2] lactated Ringer's, 100 mL/hr, Last Rate: 100 mL/hr (09/10/24 1855) [3] PRN medications: acetaminophen, HYDROmorphone OR HYDROmorphone, naloxone, ondansetron ODT OR ondansetron, [Held by provider] polyethylene glycol (PEG) 3350, sodium chloride, sodium chloride, sodium chloride, sodium chloride 0.9%, sodium chloride 0.9% NURSING NOTE Observed: 09/11/2024 7:21 AM Status: COMPLETED Source: [facility] Wound Care consulted for Pre ssure Injury Prevention. Pt's Siva= 20, pt is no longer at risk at this time. Will continue to follow peripherally. Please vocera or secure chat message with any questions. Radha Waller RN, CWCN CBC WITH AUTO DIFFERENTIAL Collected: 09/11/2024 6:19 AM Status: F Source: [facility] TYPE CODE TESTS RESULT OUT OF RANGE REFERENCE UNITS LAB [id number] WBC 6.9 3.6-10.7 10*3/uL LAB 9340735 RBC 2.63 Low 4.40-5.90 10*6/uL LAB 7425178 HEMOGLOBIN 7.6 Low 13.0-18.0 g/dL LAB 6244314 HEMATOCRIT 22.9 Low 40.0-52.0 % LAB 5383625 MCV 87.1 77.0-99.0 fL LAB 8778343 MCH 28.9 26.0-34.0 pg LAB 6426177 MCHC 33.2 30.5-36.0 % LAB 9335784 RDW 15.9 High 11.5-15.0 % LAB 9075183 PLATELET COUNT 188 140-440 10*3/uL LAB 6344950 MPV 9.7 9.0-12.7 fL LAB 254 NRBC 0.0 0.0-2.0 /100 WBCs LAB 9979462 NEUTROPHILS RELATIVE 76.0 38.0-82.0 % LAB 5791725 LYMPHOCYTES RELATIVE 12.2 Low 15.0-45.0 % LAB 4626916 MONOCYTES RELATIVE 6.0 5.0-13.0 % LAB 3290049 EOSINOPHILS RELATIVE 4.8 0.0-6.0 % LAB 0312595 BASOPHILS RELATIVE 0.7 0.0-2.0 % LAB 1085316 IMMATURE GRANS % 0.3 0.0-2.0 % LAB 3655408 NEUTROPHILS ABSOLUTE 5.2 1.8-7.5 10*3/uL LAB 7862530 LYMPHOCYTES ABSOLUTE 0.8 Low 1.0-4.3 10*3/uL LAB 9738513 MONOCYTES ABSOLUTE 0.4 0.0-0.9 10*3/uL LAB 2972289 EOSINOPHILS ABSOLUTE 0.3 0.0-0.5 10*3/uL LAB 3039484 BASOPHILS ABSOLUTE 0.1 0.0-0.2 10*3/uL LAB 042081 IMMATURE GRANS ABSOLUTE 0.0 <0.1 10*3/uL Performed By: #### [id number] # ### Board Catcher: NICOLA HOWARD ([id number]) [facility]) [address] [place] [address] 30 Observed: 09/11/2024 5:40 AM Status: COMPLETED Source: [facility] Problem: Knowledge Deficit Goal: Patient/family/caregiver demonstrates understanding of disease process, treatment plan, medications, and discharge instructions Outcome: ProgressingProblem: Potential for Compromised Skin Integrity Goal: Skin Integrity is Maintained or Improved Outcome: Progressing MAGNESIUM Collected: 12:17 AM Status: F Source: [facility] TYPE CODE TESTS RESULT OUT OF RANGE REFERENCE UNITS LAB 9803218 MAGNESIUM 1.8 1.6-2.6 mg/dL Result Comment: ORDER COMMEN TS: Higher values can be expected in females during menses. Performed By: #### [id number], L AB113, LAB15 #### Board Catcher: NICOLA HOWARD ([id number]) [address] PHOSPHORUS Collected: 12:17 AM Status: F Source: [facility] TYPE CODE TESTS RESULT OUT OF RANGE REFERENCE UNITS LAB 0291013 PHOSPHORUS 2.4 2.3-4.7 mg/dL Performed By: #### [id number], L AB113, LAB15 #### Board Catcher: NICOLA HOWARD ([id number]) [address] BASIC METABOLIC PANEL Collected: 2024 12:17 AM Status: F Source: [facility] TYPE CODE TESTS RESULT OUT OF RANGE REFERENCE UNITS LAB 2347278 SODIUM 141 136-145 mmol/L LAB 7117582 POTASSIUM 3.9 3.5-5.1 mmol/L Result Comment: Plasma potas sium values may be up to 0.5 mmol/L lower than serum values. LAB 8200839 CHLORIDE 112 High 98-107 mmol/L LAB 1351785 CARBON DIOXIDE 26 23-31 mmol/L LAB 9118748 UREA NITROGEN 29 High 9-23 mg/dL LAB 6207473 CREATININE 0.60 Low 0.72-1.25 mg/dL LAB 2702745 GLUCOSE 99 82-115 mg/dL LAB 3872895 CALCIUM 7.7 Low 8.8-10.0 mg/dL LAB [id number] ANION GAP (ROMAN, CALCULATED) 3 3-13 mmol/L LAB 7185416 GLOMERULAR FILTRATION RATE ML/MIN/1.73 SQ M.PREDICTED >90.0 >60.0 mL/min/1. 73m*2 Result Comment: Calculation based on the Chronic Kidney Disease Epidemiology Collaboration (CKD-EPI) equation refit without adjustment for race Performed By: #### [id number], L AB113, LAB15 #### Board Catcher: NICOLA HOWARD ([id number]) [address] HEMOGLOBIN AND HEMATOCRIT, BLOOD Collec vimal: 09/11/2024 12:17 AM Status: F Source: [facility] TYPE CODE TESTS RESULT OUT OF RANGE REFERENCE UNITS LAB 3767612 HEMOGLOBIN 7.7 Low 13.0-18.0 g/dL LAB 9065627 HEMATOCRIT 23.1 Low 40.0-52.0 % Performed By: #### [id number] ## ## Board Catcher: NICOLA HOWARD ([phone]) [address] HEMOGLOBIN AND HEMATOCRIT, BLOOD Collec vimal: 09/10/2024 6:05 PM Status: F Source: [facility] TYPE CODE TESTS RESULT OUT OF RANGE REFERENCE UNITS LAB 9954766 HEMOGLOBIN 7.9 Low 13.0-18.0 g/dL LAB 7592508 HEMATOCRIT 24.3 Low 40.0-52.0 % Performed By: #### [id number] ## ## Board Catcher: NICOLA HOWARD ([phone]) [facility]) [address] [place] [address] 30 Observed: 09/10/2024 5:12 PM Status: COMPLETED Source: [facility] [place] [facility] Problem: Knowledge Deficit Goal: Patient/family/caregiver demonstrates understanding of disease process, treatment plan, medications, and discharge instructions Outcome: ProgressingProblem: Potential for Compromised Skin Integrity Goal: Skin Integrity is Maintained or Improved Outcome: ProgressingGoal: Nutritional status is improving Outcome: ProgressingProblem: Urinary Incontinence Goal: Perineal skin integrity is maintained or improved Outcome: Progressing HEMOGLOBIN AND HEMATOCRIT, BLOOD Collec vimal: 09/10/2024 12:26 PM Status: F Source: [facility] TYPE CODE TESTS RESULT OUT OF RANGE REFERENCE UNITS LAB 0733950 HEMOGLOBIN 7.7 Low 13.0-18.0 g/dL LAB 4689932 HEMATOCRIT 23.7 Low 40.0-52.0 % Performed By: #### [id number] ## ## Board Catcher: NICOLA HOWARD ([id number]) [facility] ([facility]) [address] [place] [address] [id number] Observed: 09/10/2024 10:26 AM Status: COMPLETED Source: [facility] ICU Transfer Checklist Transfer Med Reconciliation (resume home meds if able, convert to PO if able) Complete Antibiotics (name, indication, duration, convert to PO if able) None Steroid (indication, duration, convert to PO if able) None Anticipated Emmet Medications (ICU initiated) or Dose Changes and Indication No Permanently Discontinued Home Medications and Reason for medication contraindication No, currently holding eliquis for concerns of GI bleed. Kumar Catheter (please remove if able. Note: place DC order) No Central Line (please remove if able. Note: place DC order) No Transfer Discussed with: [facility] providers Dr. Holbrook and Dr. Scott on [employer] Secure chat. If additional questions for ICU team within 24 hours of ICU transfer, page *[phone] for clarifications. RESS NOTE Observed: 09/10/2024 10:19 AM Status: COMPLETED Source: [facility] [place] [facility] Attestation signed by Zara Spann DO at 11/03/2024 10:32 AM I (Zara Spann) personally supervised the physician casing puller in the evaluation and development of a [...] occurred on the date noted below ASSESSMENT: Patient passed stent overnight Still with pain Hgb stable PLAN: No need for scope at this time Ok for diet Pain control Follow hgb Department of General Surgery Daily Progress Note ADMIT DATE: 09/09/2024 TODAY'S DATE: 09/10/2024 SUBJECTIVE: Patient passed stent in BM overnight. He still is having L dilcia abdominal pain. He states it is 08/12, son states that its probably more significant. He had small blood in BM. Denies: fevers, chills, nausea, vomiting, shortness of breath or chest pain. ROS: Noted above unless otherwise mentioned OBJECTIVE: VITALS: Temp: [36.1 ?C (97 ?F)-37 ?C (98.6 ?F)] 36.3 ?C (97.4 ?F) Heart Rate: [56-95] 59 Resp: [9-27] 14 BP: (87-123)/(54-90) 119/80 INTAKE/OUTPUT: Intake/Output Summary (Last 24 hours) at 09/10/2024 1019 Last data filed at 09/10/2024 0900 Gross per 24 hour Intake 2268.67 ml Output 600 ml Net 1668.67 ml I/O last 3 completed shifts: In: 2268.7 (29.1 mL/kg) [I.V.:1968 (25.2 mL/kg); Blood:300.7] Out: 650 (8.3 mL/kg) [Urine:650 (0.2 mL/kg/hr)] Weight: 78 kg I/O this shift: In: - Out: 300 [Urine:300] PHYSICAL EXAM: Gen: NAD, A&Ox3, pain moderately controlled Heart: RRR, well perfused Lungs: symmetric chest rise, normal work of breathing, breath sounds b/l Abd: soft, tender to left hemiabdomen, non distended. Non rigid. No rebound or guarding. Ext: no c/c/e no gross deformities Skin: warm, well perfused, no obvious rashes, cellulitis or gross discoloration LABS CBC: Auto WBC Date Value Ref Range Status 09/10/2024 10.2 3.6 - 10.7 10*3/uL Final 09/09/2024 15.1 (H) 3.6 - 10.7 10*3/uL Final 09/08/2024 8.9 3.6 - 10.7 10*3/uL Final Hemoglobin Date Value Ref Range Status 09/10/2024 7.1 (L) 13.0 - 18.0 g/dL Final 09/10/2024 7.0 (L) 13.0 - 18.0 g/dL Final 09/09/2024 7.1 (L) 13.0 - 18.0 g/dL Final Platelets Date Value Ref Range Status 09/10/2024 205 140 - 440 10*3/uL Final 09/09/2024 211 140 - 440 10*3/uL Final 09/08/2024 308 140 - 440 10*3/uL Final BMP: SODIUM Date Value Ref Range Status 09/10/2024 139 136 - 145 mmol/L Final 09/09/2024 141 136 - 145 mmol/L Final 09/08/2024 139 136 - 145 mmol/L Final POTASSIUM Date Value Ref Range Status 09/10/2024 3.9 3.5 - 5.1 mmol/L Final Comment: Plasma potassium values may be up to 0.5 mmol/L lower than serum values. 09/09/2024 5.0 3.5 - 5.1 mmol/L Final Comment: Plasma potassium values may be up to 0.5 mmol/L lower than serum values. 09/08/2024 3.6 3.5 - 5.1 mmol/L Final Comment: Plasma potassium values may be up to 0.5 mmol/L lower than serum values. CHLORIDE Date Value Ref Range Status 09/10/2024 111 (H) 98 - 107 mmol/L Final 09/09/2024 110 (H) 98 - 107 mmol/L Final 09/08/2024 106 98 - 107 mmol/L Final CARBON DIOXIDE Date Value Ref Range Status 09/10/2024 26 23 - 31 mmol/L Final 09/09/2024 25 23 - 31 mmol/L Final 09/08/2024 28 23 - 31 mmol/L Final UREA NITROGEN Date Value Ref Range Status 09/10/2024 40 (H) 9 - 23 mg/dL Final 09/09/2024 30 (H) 9 - 23 mg/dL Final 09/08/2024 13 9 - 23 mg/dL Final CREATININE Date Value Ref Range Status 09/10/2024 0.65 (L) 0.72 - 1.25 mg/dL Final 09/09/2024 0.66 (L) 0.72 - 1.25 mg/dL Final 09/08/2024 0.70 (L) 0.72 - 1.25 mg/dL Final Hepatic: AST (SGOT) Date Value Ref Range Status 09/09/2024 25 <34 U/L Final 09/08/2024 20 <34 U/L Final 08/25/2024 19 <34 U/L Final ALT Date Value Ref Range Status 09/09/2024 6 <40 U/L Final 09/08/2024 10 <40 U/L Final 08/25/2024 12 <40 U/L Final ALBUMIN Date Value Ref Range Status 09/09/2024 2.3 (L) 3.4 - 4.8 g/dL Final 09/08/2024 3.1 (L) 3.4 - 4.8 g/dL Final 08/25/2024 2.6 (L) 3.4 - 4.8 g/dL Final BILIRUBIN, TOTAL Date Value Ref Range Status 09/09/2024 0.9 <1.2 mg/dL Final 09/08/2024 0.7 <1.2 mg/dL Final 08/25/2024 0.4 <1.2 mg/dL Final BILIRUBIN, DIRECT Date Value Ref Range Status 09/08/2024 0.2 <0.5 mg/dL Final 08/25/2024 0.2 <0.5 mg/dL Final ALKALINE PHOSPHATASE Date Value Ref Range Status 09/09/2024 55 40 - 150 U/L Final 09/08/2024 83 40 - 150 U/L Final 08/25/2024 75 40 - 150 U/L Final Current Inpatient Medications Scheduled Meds:Scheduled Meds[1] Continuous Infusions:Continuous Meds[2] PRN Meds:PRN Meds[3] ASSESSMENT AND PLAN: 69 y.o. male with hx of bleeding duodenal ulcer and basia perforation who had duodental stent placed at [place]. He has had rebleed of this ulcer and on CT scan there is a noted migration of the stent. Patient passed the stent in BM on 09/10. - GI - no plans for further endoscopic procedures - if patient hgb drop persists, consider repeat scope(s) vs IR - no acute surgical intervention warranted - serial abdominal exams - monitor hgb closely - Diet: adv to clear liquids - PO pain medications for pain control - OOBAT - DVT ppx with SCD's and lovenox - hold eliquis - Dispo inpatient, mi for tele floor transfer Will discuss with Dr. Maria Ines Francisco MD General Surgery PGY-5 09/10/24 10:19 AM This note may have been dictated using [employer] Edition 2.6 and/or [employer] Voice Recognition Feature. The document was proofread; however, unrecognized voice recognition pad extractor tender errors may be present. [1] [Held by provider] apixaban, 5 mg, Oral, BID [Held by provider] dicyclomine, 20 mg, Oral, TID [Held by provider] docusate sodium, 100 mg, Oral, q12h mupirocin, , Nasal, BID pantoprazole (ProtoNix) 40 mg in sodium chloride (PF) 0.9 % 10 mL injection, 40 mg, IntraVENous, BID sodium chloride 0.9%, 10 mL, IntraVENous, 2 times per day sodium chloride 0.9%, 5-40 mL, IntraVENous, q12h [2] lactated Ringer's, 100 mL/hr, Last Rate: 100 mL/hr (09/09/242225) [3] PRN medications: acetaminophen, HYDROmorphone OR HYDROmorphone, naloxone, ondansetron ODT OR ondansetron, [Held by provider] polyethylene glycol (PEG) 3350, sodium chloride, sodium chloride, sodium chloride, sodium chloride 0.9%, sodium chloride 0.9% CONSULT Observed: 09/10/2024 7:19 AM Status: COMPLETED [facility] No acute issues overnight. He had 1 BM and passed the stent. Hb stable. Currently there is no signs or symptoms of GI bleeding. I also talked to the Primary team about the cavitary type ulcer with blood clot in it its hard to do endoscopic therapeutic intervention if this ulcer bleeds again and IR and/or Surgery would be needed if rebleeds. PROGRESS NOTE Observed: 09/10/2024 6:25 AM Status: COMPLETED Source: [employer] [facility] Attestation signed by Kieran Peterson MD at 11/05/2024 7:50 PM ATTENDING ADDENDUM I independently saw the above patient and reviewed the recent events, imaging, labs, vital signs; I performed a physical exam and ROS. My findings agree with the above note except for any details corrected below. [Problem List] [Problem List] Patient Active Problem List Diagnosis Duodenal perforation (CMS/HCC) (HCC) Duodenal ulceration Pneumoperitoneum Severe malnutrition (CMS/HCC) (HCC) Abdominal pain HematemesisAnemia Anemia due to acute blood loss Constipation History of inferior vena caval filter placement Leukocytosis Mitral valve prolapse Orthostatic hypotension Pulmonary embolism (HCC) Syncope A complete review of systems was obtained and is negative except as stated in HPI. 69M direct T2 SICU transfer from [place] after presenting w/ hematemesis and hb 6. Hx significant for recent bleeding duodenal ulcer managed w/ EGD and stent placement. Received 1prbc at [place] and transferred to [facility] arriving hemodynamically stable PMH: duodenal perforation s/p gastric wedge resection 08/2024, mitral valve prolapse, PE/DVT, Factor V leiden, on eliquis, GERD s/p Basia PLAN: -I evaluated pt on 09/10/24 -Neuro: multimodal pain control -CV: grossly HDS at this time, MAP goal >65, hold eliquis -Pulm: on RA, aggressive pulm toilet -GI: hematemesis w/ recent duodenal ulcer managed with EGD/stent; repeat EGD 09/09 showed non-bleeding duodenal ulcer with adherent clot; pt passed stent w/ bowel movement.. ok for CLD, cont BID PPI -: strict I/Os -Endo: monitor BG -Heme: received additional prbc post EGD, transfuse as needed for goal hb >7, hold DVT ppx and eliquis -ID: monitor fever, WBC curve -MSK: PT/OT Dispo: ok for floor transfer Level of Medical Decision Making: [x]High []Moderate []Low Complexity: Acute or chronic illness posing a threat to life (HIGH) Risk: Use/consideration of therapy requiring intensive monitoring: blood products (anaphylaxis, TRLI, TACO, hypocalcemia, sepsis): telemetry, CBC or H&H, BMP (HIGH) Prescription drug/IVF/colloid was initiated, discontinued, adjusted; or reviewed with decision to maintain current orders (MOD). Personally Reviewed/Independently interpreted patient's: [x]Epic notes []Radiology studies [x]Labs []EKG []Ordering tests []Other Discussed/ With: [x]Patient/Family []RN [x]Consultants []Primary []SW/TCC []Other I spent total time of 50 minutes reviewing previous notes, test results, and face to face with Laine Garcia discussing the diagnosis and importance of compliance with the treatment plan as well as documenting on the day of the visit. Time was spent, Reviewing medical record including recent tests and results Ordering prescription medications/tests and procedures Communicating results to the patient/family/caregiver Counseling/educating the patient/family/caregiver Documenting clinical information the patient's electronic record Coordination of care for the patient Performing a medical appropriate exam and evaluation Kieran Peterson MD, FACS Trauma, Surgical Critical Care & Acute Care Surgery Division of Trauma Department of Surgery [facility] Daily SICU Progress Note Resident 09/10/2024 9:43 AM Admit Date: 09/09/2024 HPI: 69M presents from [facility] ED via [facility] due to concerns for acute hematemesis leading to acute anemia requiring transfusion. Hx of duodenal perforation with stent placement in the duodenum, laparoscopic lysis of adhesion and wedge resection in August of this year. Repeat CT at [facility] at the time shows a migrated stent into the colon. Ultimately accepted to SICU for further evaluation and management for potential anemia and acute GI bleed. PROCEDURES: Endoscopy on 09/09/24 INCIDENTAL FINDINGS: Non-bleeding deep caritary duodenal ulcer with an adherent clot in the cavity Old clip on D2 wall CHIEF COMPLAINT: Abdominal Pain PREVIOUS 24 HOUR EVENTS: Patient passed stent in bowel. GI evaluated patient with an upper endoscopy. Hgb was acutely dropped on repeat H&H and patient received an additional unit of blood. Consults: IP CONSULT TO GI IP CONSULT TO WOUND PREVENTION MEDICATIONS: Current Medications[1] ARE THERE PERTINENT UPDATES TO PAST,FAMILY, OR SOCIAL HISTORY?: No Subjective: Review of Systems All other systems reviewed and are negative. PHQ In the last 2 weeks have you had: Little interest or pleasure in doing things No Been feeling down, depressed, or hopeless No If greater then 0, place CLP consult Date PHQ completed: 09/10/24 Objective: Patient Vitals for the past 24 hrs: BP Temp Temp src Pulse Resp SpO2 Weight 09/10/24 0930 111/70 36.3 ?C (97.4 ?F) -- 75 15 99 % -- 09/10/24 0915 112/75 -- -- 63 17 98 % -- 09/10/24 0914 112/75 36.4 ?C (97.5 ?F) -- 63 21 98 % -- 09/10/24 0900 116/79 -- -- 65 17 98 % -- 09/10/24 0800 113/78 36.5 ?C (97.7 ?F) Temporal 62 12 98 % -- 09/10/24 07 112/62 -- -- 85 21 99 % -- 09/10/24 0600 111/59 -- -- 83 16 99 % -- 09/10/24 0500 114/65 -- -- 62 18 100 % -- 09/10/24 0400 (!) 87/54 36.1 ?C (97 ?F) Temporal 56 14 97 % -- 09/10/24 0300 105/72 -- -- 63 (!) 9 95 % -- 09/10/24 0200 114/76 -- -- 83 25 99 % -- 09/10/24 0100 96/60 -- -- 62 (!) 10 98 % -- 09/10/24 0000 102/64 36.3 ?C (97.4 ?F) Temporal 64 14 96 % -- 09/09/24 2300 98/58 -- -- 68 13 95 % -- 09/09/24 2200 100/63 36.6 ?C (97.9 ?F) -- 71 13 97 % -- 09/09/24 2145 92/60 -- -- 62 12 97 % 78 kg (171 lb 15.3 oz) 09/09/24 2130 110/81 -- -- 72 16 96 % -- 09/09/245 97/55 -- -- 67 16 95 % -- 09/09/242099 99/65 -- -- 69 15 94 % -- 09/09/242044 93/67 -- -- 73 (!) 27 96 % -- 09/09/242029 96/64 -- -- 73 17 96 % -- 09/09/242014 106/63 -- -- 72 15 93 % -- 09/09/241999 104/73 36.8 ?C (98.2 ?F) Temporal 71 14 95 % -- 09/09/24 194 102/65 -- -- 83 14 96 % -- 09/09/24 193 101/63 -- -- 74 14 97 % -- 09/09/24 1915 106/64 -- -- 79 16 95 % -- 09/09/24 1902 97/79 37 ?C (98.6 ?F) -- 75 24 97 % -- 09/09/24 1900 97/79 -- -- 84 17 97 % -- 09/09/24 1800 106/67 -- -- 73 17 94 % -- 09/09/24 1700 109/68 -- -- 78 16 96 % -- 09/09/24 1600 107/90 36.7 ?C (98 ?F) Temporal 93 20 99 % -- 09/09/24 1500 109/71 -- -- 68 16 99 % -- 09/09/24 1400 114/73 -- -- 73 17 100 % -- 09/09/24 1300 101/72 -- -- 72 14 99 % -- 09/09/24 1245 102/63 -- -- 79 16 100 % -- 09/09/24 1242 101/68 -- -- 78 -- 100 % -- 09/09/24 1239 117/78 -- -- 81 17 99 % -- 09/09/24 1200 113/68 -- -- 73 12 97 % -- 09/09/24 1100 123/71 -- -- 95 17 100 % -- 09/09/24 1000 131/82 36.3 ?C (97.4 ?F) Temporal 68 14 100 % -- 09/09/24 0946 117/74 -- -- 68 -- -- -- Intake/Output Summary (Last 24 hours) at 09/10/2024 0943 Last data filed at 09/10/2024 0900 Gross per 24 hour Intake 2268.67 ml Output 950 ml Net 1318.67 ml I/O this shift: In: - Out: 300 [Urine:300] Last BM: ~4 PM on 6/7 Diet: Regular PHYSICAL: Physical Exam Vitals and nursing note reviewed. Constitutional: General: He is not in acute distress. Appearance: He is ill-appearing. He is not toxic-appearing or diaphoretic. HENT: Head: Normocephalic. Cardiovascular: Rate and Rhythm: Normal rate and regular rhythm. Pulmonary: Effort: Pulmonary effort is normal. No respiratory distress. Breath sounds: Normal breath sounds. No wheezing. Abdominal: General: Abdomen is flat. There is no distension. Palpations: Abdomen is soft. Tenderness: There is abdominal tenderness. There is no guarding. Musculoskeletal: General: Normal range of motion. Cervical back: Normal range of motion. Skin: General: Skin is warm and dry. Coloration: Skin is pale. Neurological: Mental Status: He is alert and oriented to person, place, and time. Psychiatric: Mood and Affect: Mood normal. / / / Data Review Data CBC with Differential: Lab Results Component Value Date WBC 10.2 09/10/2024 RBC 2.43 (L) 09/10/2024 HGB 7.1 (L) 09/10/2024 HCT 21.5 (L) 09/10/2024 PLT 205 09/10/2024 CMP: Lab Results Component Value Date NA 139 09/10/2024 K 3.9 09/10/2024 CL 111 (H) 09/10/2024 CO2 26 09/10/2024 BUN 40 (H) 09/10/2024 CREATININE 0.65 (L) 09/10/2024 GLUCOSE 110 09/10/2024 PROT 4.9 (L) 09/09/2024 CALCIUM 7.2 (L) 09/10/2024 BILITOT 0.9 09/09/2024 ALKPHOS 55 09/09/2024 AST 25 09/09/2024 ALT 6 09/09/2024 BMP: Hepatic Function Panel:Ionized Calcium: No components found for: IONCA Magnesium: Lab Results Component Value Date MG 1.8 09/10/2024 Phosphorus: Lab Results Component Value Date PHOS 2.9 09/10/2024 PT/INR: Lab Results Component Value Date PROTIME 11.9 09/09/2024 INR 1.1 09/09/2024 PTT: Lab Results Component Value Date APTT 20.8 09/09/2024 [APTT Last 3 Troponin: No results found for: TROPONINI Urine Culture: No components found for: CURINE Blood Culture: No components found for: CBLOOD, CFUNGUSBL Blood Culture from Central Line: No components found for: CBLOODLN Stool Culture: No components found for: CSTOOL Sputum Culture: No components found for: CSPUTUM Sputum Culture for AFB: No components found for: CAFBSM Wound Culture: Radiology: No results found. Problem List[2] ASSESSMENT/PLAN Neuro / Spine - MMPC: ofirmev, prn dilaudid Cardiovascular - Hemodynamically stable - BP Goal <140 SBP - Labetalol/hydralazine prn - Telemetry - hold home eliquis Pulmonary - Standard O2 protocol - IS FEN/GI - Clear liquid diet with LR 100cc/H - Zofran PRN - Daily BMP - Protonix 40mg IV PPI - ALS cs - GI cs for EGD/C scope consideration -EGD on 09/09 -Non-bleeding deep caritary duodenal ulcer with adherent clot in the cavity -Old clip on D2 wall - Patient passed stent in bowel movement on 09/09 - No acute issues - Monitor I/Os - Goal UOP > 0.5 ml/kg/hr Endocrine - no acute issues Heme - CBC, with q6 H&H - if persisting tf requirements, consider reversal of eliquis - 1 u prbcs prior to transfer - 1 unit on 09/09 - 1 additional unit on 09/10 ID - no acute issues, fu cbc now - MRSA nasal swab Musculoskeletal: - PT/OT - OOBA Lines/Devices: - PIV Prophylaxis: DVT: SCDs, no chemoppx Has DVT PPX been started? Yes If no, why? Patient with Acute GI Bleed; consider start at 48hr s/p stable Hb/resolution of clinical bleeding GI: Protoinx 40 bid iv Pressure Ulcer: Continue to monitor,OOBA [1] Current Facility-Administered Medications: acetaminophen (Ofirmev) IVPB 1,000 mg, 1,000 mg, IntraVENous, q6h PRN, Aliya Antonio MD, Stopped at 09/09/241902 [Held by provider] apixaban (Eliquis) tablet 5 mg, 5 mg, Oral, BID, Aliya Antonio MD [Held by provider] dicyclomine (Bentyl) tablet 20 mg, 20 mg, Oral, TID, Aliya Antonio MD [Held by provider] docusate sodium (Colace) capsule 100 mg, 100 mg, Oral, q12h, Aliya Antonio MD HYDROmorphone (Dilaudid) injection 0.5 mg, 0.5 mg, IntraVENous, q4h PRN OR HYDROmorphone (Dilaudid) injection 1 mg, 1 mg, IntraVENous, q4h PRN, Teresita Castaneda MD lactated Ringer's infusion, 100 mL/hr, IntraVENous, Continuous, Aliya Antonio MD, Last Rate: 100 mL/hr at 09/09/242225, 100 mL/hr at 09/09/242225 mupirocin (Bactroban) 2 % ointment, , Nasal, BID, Teresita Castaneda MD naloxone (Narcan) injection 0.4 mg, 0.4 mg, IntraVENous, q5 min PRN, Aliya Antonio MD ondansetron ODT (Zofran-ODT) disintegrating tablet 4 mg, 4 mg, Oral, q8h PRN OR ondansetron (Zofran) injection 4 mg, 4 mg, IntraVENous, q6h PRN, Aliya Antonio MD pantoprazole (ProtoNix) 40 mg in sodium chloride (PF) 0.9 % 10 mL injection, 40 mg, IntraVENous, BID, Teresita Castaneda MD, 40 mg at 09/10/24 0845 [Held by provider] polyethylene glycol (PEG) 3350 (Miralax) packet 17 g, 17 g, Oral, Daily PRN, Aliya Antonio MD sodium chloride 0.9 % infusion, 5-250 mL/hr, IntraVENous, PRN, Skylar Reza APRN - DEANNA sodium chloride 0.9 % infusion, 250 mL/hr, IntraVENous, PRN, Teresita Castaneda MD sodium chloride 0.9 % infusion, 250 mL/hr, IntraVENous, PRN, Teresita Castaneda MD sodium chloride 0.9% (NS) flush 10 mL, 10 mL, IntraVENous, 2 times per day, BARRIE Encarnacion CNP, 10 mL at 09/10/24 0844 sodium chloride 0.9% (NS) flush 10 mL, 10 mL, IntraVENous, PRN, BARRIE Encarnacion CNP sodium chloride 0.9% (NS) flush 5-40 mL, 5-40 mL, IntraVENous, q12h, Aliya Antonio MD, 10 mL at 09/10/24 0844 sodium chloride 0.9% (NS) flush 5-40 mL, 5-40 mL, IntraVENous, PRN, Aliya Antonio MD [2] Patient Active Problem List Diagnosis Duodenal perforation (CMS/HCC) (HCC) Duodenal ulceration Pneumoperitoneum Severe malnutrition (CMS/HCC) (HCC) Abdominal pain Hematemesis CBC WITH AUTO DIFFERENTIAL Collected: 09/10/2024 5:13 AM Status: F Source: [facility] TYPE CODE TESTS RESULT OUT OF RANGE REFERENCE UNITS LAB [id number] WBC 10.2 3.6-10.7 10*3/uL LAB 8687683 RBC 2.43 Low 4.40-5.90 10*6/uL LAB 9001876 HEMOGLOBIN 7.1 Low 13.0-18.0 g/dL LAB 6302413 HEMATOCRIT 21.5 Low 40.0-52.0 % LAB 9445102 MCV 88.5 77.0-99.0 fL LAB 9296280 MCH 29.2 26.0-34.0 pg LAB 6864703 MCHC 33.0 30.5-36.0 % LAB 3560748 RDW 16.0 High 11.5-15.0 % LAB 0184363 PLATELET COUNT 205 140-440 10*3/uL LAB 6944504 MPV 9.5 9.0-12.7 fL LAB 254 NRBC 0.0 0.0-2.0 /100 WBCs LAB 6332007 NEUTROPHILS RELATIVE 82.8 High 38.0-82.0 % LAB 9400235 LYMPHOCYTES RELATIVE 9.3 Low 15.0-45.0 % LAB 2728022 MONOCYTES RELATIVE 5.7 5.0-13.0 % LAB 0940964 EOSINOPHILS RELATIVE 1.3 0.0-6.0 % LAB 9609632 BASOPHILS RELATIVE 0.4 0.0-2.0 % LAB 1630628 IMMATURE GRANS % 0.5 0.0-2.0 % LAB 1054245 NEUTROPHILS ABSOLUTE 8.5 High 1.8-7.5 10*3/uL LAB 6562887 LYMPHOCYTES ABSOLUTE 1.0 1.0-4.3 10*3/uL LAB 0055304 MONOCYTES ABSOLUTE 0.6 0.0-0.9 10*3/uL LAB 3306653 EOSINOPHILS ABSOLUTE 0.1 0.0-0.5 10*3/uL LAB 0671780 BASOPHILS ABSOLUTE 0.0 0.0-0.2 10*3/uL LAB 217678 IMMATURE GRANS ABSOLUTE 0.1 High <0.1 10*3/uL Performed By: #### [id number] # ### Board Catcher: NICOLA HOWARD ([id number]) [facility] ([facility]) [address] [place] [address] YESY TRAUMA PANEL Collected: 09/10/2024 1:37 AM Sta tus: F Source: [facility] TYPE CODE TESTS RESULT OUT OF RANGE REFERENCE UNITS LAB [id number] APTEM CLOTTING TIME 56 43-82 s LAB 5449110 APTEM CLOT FORMATION TIME 67 48-127 s LAB 3305409 APTEM ALPHA 77 65-80 DEGREES LAB 6653219 APTEM A10 57 50-70 mm LAB 7320909 APTEM A20 63 50-70 mm LAB 8004765 APTEM MAXIMUM CLOT FIRMNESS 63 52-70 mm LAB 4972214 EXTEM CLOTTING TIME 62 43-82 s LAB 0858313 EXTEM CLOT FORMATION TIME 72 48-127 s LAB 3039220 EXTEM ALPHA 76 65-80 DEGREES LAB 9548089 EXTEM A10 57 50-70 mm LAB 1198669 EXTEM A20 63 50-70 mm LAB 5607103 EXTEM MAXIMUM CLOT FIRMNESS 63 52-70 mm LAB 1809029 FIBTEM A10 20 mm LAB 6436081 FIBTEM A20 21 mm LAB 6131378 FIBTEM MAXIMUM CLOT FIRMNESS 20 7-24 mm Performed By: #### [id number] #### Board Catcher: NICOLA HOWARD ([id number]) [facility] ([facility]) [address] [place] [address] MAGNESIUM Collected: 1:37 AM Status: F Source: [facility] TYPE CODE TESTS RESULT OUT OF RANGE REFERENCE UNITS LAB 6158034 MAGNESIUM 1.8 1.6-2.6 mg/dL Result Comment: ORDER COMMEN TS: Higher values can be expected in females during menses. Performed By: #### [id number], L AB113, LAB15 #### Board Catcher: NICOLA HOWARD ([id number]) [facility]) [address] [place] [address] PHOSPHORUS Collected: 1:37 AM Status: F Source: [facility] TYPE CODE TESTS RESULT OUT OF RANGE REFERENCE UNITS LAB 3551202 PHOSPHORUS 2.9 2.3-4.7 mg/dL Performed By: #### [id number], L AB113, LAB15 #### Board Catcher: NICOLA HOWARD ([id number]) [address] BASIC METABOLIC PANEL Collected: 2024 1:37 AM Status: F Source: [facility] TYPE CODE TESTS RESULT OUT OF RANGE REFERENCE UNITS LAB 0109603 SODIUM 139 136-145 mmol/L LAB 4440107 POTASSIUM 3.9 3.5-5.1 mmol/L Result Comment: Plasma potas sium values may be up to 0.5 mmol/L lower than serum values. LAB 2418702 CHLORIDE 111 High 98-107 mmol/L LAB 0788084 CARBON DIOXIDE 26 23-31 mmol/L LAB 9767872 UREA NITROGEN 40 High 9-23 mg/dL LAB 5610814 CREATININE 0.65 Low 0.72-1.25 mg/dL LAB 4802638 GLUCOSE 110 82-115 mg/dL LAB 7502406 CALCIUM 7.2 Low 8.8-10.0 mg/dL LAB [id number] ANION GAP (ROMAN, CALCULATED) 2 Low 3-13 mmol/L LAB 3222137 GLOMERULAR FILTRATION RATE ML/MIN/1.73 SQ M.PREDICTED >90.0 >60.0 mL/min/1. 73m*2 Result Comment: Calculation based on the Chronic Kidney Disease Epidemiology Collaboration (CKD-EPI) equation refit without adjustment for race Performed By: #### [id number], L AB113, LAB15 #### Board Catcher: NICOLA HOWARD ([id number]) [facility]) [address] [place] [address] HEMOGLOBIN AND HEMATOCRIT, BLOOD Collec vimal: 09/10/2024 1:37 AM Status: F Source: [facility] TYPE CODE TESTS RESULT OUT OF RANGE REFERENCE UNITS LAB 7256591 HEMOGLOBIN 7.0 Low 13.0-18.0 g/dL LAB 2582792 HEMATOCRIT 21.8 Low 40.0-52.0 % Performed By: #### [id number] ## ## Board Catcher: NICOLA HOWARD ([id number]) [address] HEMOGLOBIN AND HEMATOCRIT, BLOOD Collec vimal: 09/09/2024 10:08 PM Status: F Source: [facility] Order Comment: Recommend 1 h our post transfusion TYPE CODE TESTS RESULT OUT OF RANGE REFERENCE UNITS LAB 4730595 HEMOGLOBIN 7.1 Low 13.0-18.0 g/dL LAB 5414235 HEMATOCRIT 21.7 Low 40.0-52.0 % Performed By: #### [id number] ## ## Board Catcher: NICOLA HOWARD ([id number]) [address] HEMOGLOBIN AND HEMATOCRIT, BLOOD Collec vimal: 09/09/2024 6:19 PM Status: F Source: [facility] TYPE CODE TESTS RESULT OUT OF RANGE REFERENCE UNITS LAB 3363811 HEMOGLOBIN 6.7 Low Alert 13.0-18.0 g/dL LAB 4950212 HEMATOCRIT 20.4 Low 40.0-52.0 % Performed By: #### [id number] ## ## Board Catcher: NICOLA HOWARD ([id number]) [address] OP NOTE Observed: 09/09/2024 12:16 PM Status: COMPLETED Source: [facility] Name: Laine Garcia Procedure Date: 09/09/2024 12:16 PM Gender: Male Date of : 1955 Age: 69 Admit Type: Inpatient Note Status: Finalized Endoscopist: Vicky Car , , [id number] Procedure: Upper GI endoscopy Indications: Melena, Hb drop Findings: The examined esophagus was normal. The entire examined stomach was normal except for hematin in the stomach. One non-bleeding cratered duodenal ulcer with an adherent clot in the cratery (Gilmer Class IIb) was found in the duodenal bulb. The lesion was 20 mm in largest dimension. No fresh blood or active bleeding. We can not remove the clot from the deep ulcer cavitery. No active bleeding. An old clip on D2 wall. Impression: - Normal esophagus. - Normal stomach. - Non-bleeding deep caritary duodenal ulcer with an adherent clot in the cavity (Gilmer Class IIb). No fresh blood or active bleeding. - An old clip on D2 wall. - No specimens collected. Recommendation: - Patient has a contact number available for emergencies. The signs and symptoms of potential delayed complications were discussed with the patient. Return to normal activities tomorrow. - No aspirin, ibuprofen, naproxen, or other non-steroidal anti-inflammatory drugs. - Continue present medications. - Continue PPI infusion. - Monitor his H&H and replace as needed. - If any active bleeding signs or symptoms occur appreciate IR and Surgery management as the deep ulcer cavity is hard to do an endoscopic therapupetic intervention. - Return to referring physician as previously scheduled. - For the duodenal stent in the colon hepatic flexure; I recommend to follow up for abdominal symptoms and most likely he would pass it naturally as it passed the TI. - He will need life long prophylactic PPI therapy. - Due to the size of the duodenal ulcer he needs a repeat EGD in 2 months to check for the ulcer's healing. CC Letter to: PCP Medicines: Monitored Anesthesia Care Procedure: Pre-Anesthesia Assessment: - Prior to the procedure, a History and Physical was performed, and patient medications and allergies were reviewed. The patient is competent. The risks and benefits of the procedure and the sedation options and risks were discussed with the patient. All questions were answered and informed consent was obtained. Patient identification and proposed procedure were verified by the physician, the nurse and the shredder picker in the pre-procedure area in the procedure room in the endoscopy suite. Mental Status Examination: normal. Airway Examination: normal oropharyngeal airway and neck mobility. Respiratory Examination: clear to auscultation. CV Examination: normal. Prophylactic Antibiotics: The patient does not require prophylactic antibiotics. Prior Anticoagulants: The patient has taken no anticoagulant or antiplatelet agents. ASA Grade Assessment: IV - A patient with severe systemic disease that is a constant threat to life. After reviewing the risks and benefits, the [...] through the mouth, and advanced to the second part of duodenum. The upper GI endoscopy was accomplished with ease. The patient tolerated the procedure well. Complications: No immediate complications. Estimated blood loss: None. Procedure Code(s): --- Professional --- 88180, Esophagogastroduodenoscopy, flexible, transoral; diagnostic, including collection of specimen(s) by brushing or washing, when performed (separate procedure) --- Technical --- 02489, Esophagogastroduodenoscopy, flexible, transoral; diagnostic, including collection of specimen(s) by brushing or washing, when performed (separate procedure) Diagnosis Code(s): --- Professional --- K26.4, Chronic or unspecified duodenal ulcer with hemorrhage K92.1, Melena (includes Hematochezia) --- Technical --- K26.4, Chronic or unspecified duodenal ulcer with hemorrhage K92.1, Melena (includes Hematochezia) CPT copyright 2021 [employer]. All rights reserved. The codes documented in this report are preliminary and upon lead pressman review may be revised to meet current compliance requirements. Attending Participation: I personally performed the entire procedure. Vicky Car, 09/09/2024 1:05:37 PM This report has been signed electronically. Number of Addenda: 0 Note Initiated On: 09/09/2024 12:16 PM HISTORY AND PHYSICAL NOTE Observed: 10/2024 12:15 PM Status: COMPLETED Source: [facility] GASTROENTEROLOGY PHYSICIAN P RE PROCEDURE NOTE HPI: Laine Garcia is a 69 y.o. male who is here today for planned endoscopic examination. All: Allergies[1] Meds: Current Medications[2] PMH: Medical History[3] No reactions to anesthesia in the past. Airway patent PE: VS: BP 113/68 Pulse 73 Temp 36.3 ?C (97.4 ?F) (Temporal) Resp 12 SpO2 97% There is no height or weight on file to calculate BMI. General: Patient in no distress CVS: Regular rate & rhythm Respiratory: Clear to auscultation Abdomen: soft and non tender ASA score : 4 ASSESSMENT & PLAN: Risks & benefits of the endoscopic procedure(s) and MAC /GA sedation were personally explained to patient / family along with alternatives to the procedure in detail including radiological and surgical options. The risks of the endoscopic procedure include but are not limited to risk from anesthesia, respiratory failure, infection, bleeding, perforation, pancreatitis with its sequelae , damage to the adjacent organs, missed lesions and need for further procedure, surgery or interventional radiological intervention, from procedure or complications. We made a shared decision to proceed with planned procedure [x]EGD []Colonoscopy []EGD&Colonoscopy Vicky Car MD Gastroenterology [1] Allergies Allergen Reactions Penicillins [2] Current Facility-Administered Medications: acetaminophen (Ofirmev) IVPB 1,000 mg, 1,000 mg, IntraVENous, q6h PRN, Aliya Antonio MD [Held by provider] apixaban (Eliquis) tablet 5 mg, 5 mg, Oral, BID, Aliya Antonio MD [Held by provider] dicyclomine (Bentyl) tablet 20 mg, 20 mg, Oral, TID, Aliya Antonio MD [Held by provider] docusate sodium (Colace) capsule 100 mg, 100 mg, Oral, q12h, Aliya Antonio MD HYDROmorphone (Dilaudid) injection 0.25 mg, 0.25 mg, IntraVENous, q4h PRN OR HYDROmorphone (Dilaudid) injection 0.5 mg, 0.5 mg, IntraVENous, q4h PRN, Teresita Castaneda MD lactated Ringer's infusion, 100 mL/hr, IntraVENous, Continuous, Aliya Antonio MD, Last Rate: 100 mL/hr at 09/09/24 1139, 100 mL/hr at 09/09/24 1139 naloxone (Narcan) injection 0.4 mg, 0.4 mg, IntraVENous, q5 min PRN, Aliya Antonio MD ondansetron ODT (Zofran-ODT) disintegrating tablet 4 mg, 4 mg, Oral, q8h PRN OR ondansetron (Zofran) injection 4 mg, 4 mg, IntraVENous, q6h PRN, Aliya Antonio MD pantoprazole (ProtoNix) 40 mg in sodium chloride (PF) 0.9 % 10 mL injection, 40 mg, IntraVENous, BID, Teresita Castaneda MD, 40 mg at 09/09/24 1139 [Held by provider] polyethylene glycol (PEG) 3350 (Miralax) packet 17 g, 17 g, Oral, Daily PRN, Aliya Antonio MD sodium chloride 0.9 % infusion, 5-250 mL/hr, IntraVENous, PRN, Aliya Antonio MD sodium chloride 0.9 % infusion, 5-250 mL/hr, IntraVENous, PRN, BARRIE Encarnacion CNP sodium chloride 0.9% (NS) flush 10 mL, 10 mL, IntraVENous, 2 times per day, Skylar Reza APRN - DEANNA sodium chloride 0.9% (NS) flush 10 mL, 10 mL, IntraVENous, PRN, Skylar Reza APRN - DEANNA sodium chloride 0.9% (NS) flush 5-40 mL, 5-40 mL, IntraVENous, q12h, Aliya Antonio MD, 10 mL at 09/09/24 1044 sodium chloride 0.9% (NS) flush 5-40 mL, 5-40 mL, IntraVENous, PRN, Aliya Antonio MD [3] Past Medical History: Diagnosis Date MVP (mitral valve prolapse) Pulmonary embolism (HCC) CONSULT Observed: 09/09/2024 11:41 AM Status: COMPLETED Source: [facility] Attestation signed by Zara Spann DO at 11/03/2024 10:29 AM I (Zara Spann) personally supervised the physician casing puller in the evaluation and development of a [...] occurred on the date noted below ASSESSMENT: 69 year old with abdominal pain, hematemesis Duodnal stent migrateed into colon PLAN: Gi eval Follow hgb Transfuse as needed Department of General Surgery Surgical Service Surgery 4 Consult/History and Physical 09/09/2024 CHIEF COMPLAINT: No chief complaint on file. Reason for Admission: Hematemesis [K92.0] HISTORY OF PRESENT ILLNESS: Laine Garcia is a 69 y.o. malewith significant past medical history of MVP, basia sp take down and gastric wedge resection 1 mo ago, sp duodenal stent placement for bleeding duodenal ulcer 1 mo ago who presents with hemetemesis, abdominal pain. The patient had originally started endorsing abdominal pain on 09/08 where he was evaluated in the ED. CT scan showed migration of prior duodenal stent into ascending colon. He was discharged after GI consult and treatment with pain management, fluids, and zofran with follow up. The pain persisted prompting the patient to be evaluated at [facility] ED. At the time, he also developed hematemesis and syncope/presyncope. Hgb was reportedly 6 at OSH, he was transfused one unit of PRBC, and he was without further hematemesis. Discussed the case with Dr. Wakefield who accepted patient transfer to [facility] SICU for further evaluation and management. Medical History[1] Surgical History[2] Medications Prior toAdmission: Medications Ordered Prior to Encounter[3] Allergies: Penicillins Social History[4] Family History[5] REVIEW OF SYSTEMS: Review of Systems Constitutional: Negative for chills and fever. Respiratory: Negative for shortness of breath. Cardiovascular: Negative for chest pain. Gastrointestinal: Positive for abdominal pain, nausea and vomiting. Negative for abdominal distention. Neurological: Positive for syncope and light-headedness. Psychiatric/Behavioral: Negative for confusion. The patient is not nervous/anxious. PHYSICAL EXAM: Vitals: 09/09/24 1100 BP: 123/71 Pulse: 95 Resp: 17 Temp: SpO2: 100% No intake/output data recorded. Physical Exam Vitals reviewed. Constitutional: General: He is not in acute distress. Appearance: Normal appearance. He is not ill-appearing or diaphoretic. HENT: Head: Normocephalic and atraumatic. Right Ear: External ear normal. Left Ear: External ear normal. Nose: No congestion. Mouth/Throat: Mouth: Mucous membranes are moist. Pharynx: No oropharyngeal exudate. Eyes: General: Right eye: No discharge. Left eye: No discharge. Extraocular Movements: Extraocular movements intact. Conjunctiva/sclera: Conjunctivae normal. Cardiovascular: Rate and Rhythm: Normal rate and regular rhythm. Pulmonary: Effort: Pulmonary effort is normal. Breath sounds: No stridor. Chest: Chest wall: No tenderness. Abdominal: General: Abdomen is flat. There is no distension. Palpations: Abdomen is soft. There is no mass. Tenderness: There is abdominal tenderness (Left hemiabd ttp). There is no guarding or rebound. Skin: General: Skin is warm and dry. Coloration: Skin is pale. Skin is not jaundiced. Neurological: General: No focal deficit present. Mental Status: He is alert and oriented to person, place, and time. Psychiatric: Mood and Affect: Mood normal. Behavior: Behavior normal. DATA: CBC: Lab Results Component Value Date WBC 15.1 (H) 09/09/2024 RBC 2.70 (L) 09/09/2024 HGB 7.8 (L) 09/09/2024 HCT 24.3 (L) 09/09/2024 MCV 90.0 09/09/2024 MCH 28.9 09/09/2024 MCHC 32.1 09/09/2024 RDW 15.5 (H) 09/09/2024 PLT 211 09/09/2024 MPV 9.8 09/09/2024 BMP: Lab Results Component Value Date NA 141 09/09/2024 K 5.0 09/09/2024 CL 110 (H) 09/09/2024 CO2 25 09/09/2024 BUN 30 (H) 09/09/2024 CREATININE 0.66 (L) 09/09/2024 CALCIUM 7.1 (L) 09/09/2024 GLUCOSE 156 (H) 09/09/2024 Hepatic Function Panel: Lab Results Component Value Date ALKPHOS 55 09/09/2024 ALT 6 09/09/2024 AST 25 09/09/2024 PROT 4.9 (L) 09/09/2024 BILITOT 0.9 09/09/2024 PT/INR: Lab Results Component Value Date PROTIME 11.9 09/09/2024 INR 1.1 09/09/2024 Troponin: No results found for: TROPONINI LIPASE: No results found for: LIPASE IMAGING: All relevant imaging reviewed by surgery team. No results found. CTA ap prior to transfer today in pacs - migration of stent to splenic flexure. No active extrav. ASSESSMENT AND PLAN: This is a 69 y.o. male with abdominal pain and hematemesis found to have migrated duodenal stent sp placement last month for bleeding duodenal ulcer followed by gastric wedge resection for perforated basia wrap by Dr Spann. -No acute operative intervention reccommended -agree with GI cs for EGD/C scope consideration -transfuse as needed -remainder per SICU -will follow Discussed with , visualization developer for Dr Spann Disclaimers: INFORMED CONSENT: The nature and purpose of the proposed treatment and/or procedure have been discussed. The risks and benefits of the proposed treatment or procedures have been reviewed. Alternatives have been reviewed in addition to the risks and benefits of not receiving treatments or undergoing procedures. Pursuant to this discussion, the patient agrees to undergo the proposed treatment or procedure. Captured images seen in this note are not a substitute for a comprehensive interpretation of the entire data set as reflected by the interpreting physician with regard to radiology, echocardiography, and other diagnostic images. This note may have been dictated using Prescient Practice Edition 2.6 and/or [employer] Voice Recognition Feature. The document was proofread; however, unrecognized voice recognition pad extractor tender errors may be present. -3 Department of General Surgery #[id number] [1] Past Medical History: Diagnosis Date MVP (mitral valve prolapse) Pulmonary embolism (HCC) [2] Past Surgical History: Procedure Laterality Date HERNIA REPAIR OTHER SURGICAL HISTORY N/A 08/10/2024 APAROSCOPY, DIAGNOSTIC, LYSIS OF ADHESIONS, EGD SHOULDER SURGERY [3] Current Facility-Administered Medications Medication Dose Route Frequency Provider Last Rate Last Admin acetaminophen (Ofirmev) IVPB 1,000 mg 1,000 mg IntraVENous q6h PRN Aliya Antonio MD [Held by provider] apixaban (Eliquis) tablet 5 mg 5 mg Oral BID Aliya Antonio MD [Held by provider] dicyclomine (Bentyl) tablet 20 mg 20 mg Oral TID Aliya Antonio MD [Held by provider] docusate sodium (Colace) capsule 100 mg 100 mg Oral q12h Aliya Antonio MD HYDROmorphone (Dilaudid) injection 0.25 mg 0.25 mg IntraVENous q4h PRN Teresita Castaneda MD Or HYDROmorphone (Dilaudid) injection 0.5 mg 0.5 mg IntraVENous q4h PRN Teresita Castaneda MD lactated Ringer's infusion 100 mL/hr IntraVENous Continuous Aliya Antonio MD 100 mL/hr at 09/09/24 1139 100 mL/hr at 09/09/24 1139 naloxone (Narcan) injection 0.4 mg 0.4 mg IntraVENous q5 min PRN Aliya Antonio MD ondansetron ODT (Zofran-ODT) disintegrating tablet 4 mg 4 mg Oral q8h PRN Aliya Antonio MD Or ondansetron (Zofran) injection 4 mg 4 mg IntraVENous q6h PRN Aliya Antonio MD pantoprazole (ProtoNix) 40 mg in sodium chloride (PF) 0.9 % 10 mL injection 40 mg IntraVENous BID Teresita Castaneda MD 40 mg at 09/09/24 1139 [Held by provider] polyethylene glycol (PEG) 3350 (Miralax) packet 17 g 17 g Oral Daily PRN Aliya Antonio MD sodium chloride 0.9 % infusion 5-250 mL/hr IntraVENous PRN Aliya Antonio MD sodium chloride 0.9% (NS) flush 5-40 mL 5-40 mL IntraVENous q12h Aliya Antonio MD 10 mL at 09/09/24 1044 sodium chloride 0.9% (NS) flush 5-40 mL 5-40 mL IntraVENous PRN Aliya Antonio MD [4] Social History Socioeconomic History Marital status: Tobacco Use Smoking status: Never Smokeless tobacco: Never Vaping Use Vaping status: Never Used Substance and Sexual Activity Alcohol use: Yes Alcohol/week: 2.0 standard drinks of alcohol Types: 2 Glasses of wine per week Drug use: Never Social Drivers of Health Food Insecurity: No Food Insecurity (08/12/2024) Hunger Vital Sign Worried About Running Out of Food in the Last Year: Never true Ran Out of Food in the Last Year: Never true Transportation Needs: No Transportation Needs (08/25/2024) PRAPARE - Transportation Lack of Transportation (Medical): No Lack of Transportation (Non-Medical): No Intimate Partner Violence: Not At Risk (08/25/2024) Humiliation, Afraid, Rape, and Kick questionnaire Fear of Current or Ex-Partner: No Emotionally Abused: No Physically Abused: No Sexually Abused: No Housing Stability: Low Risk (08/25/2024) Housing Stability Vital Sign Unable to Pay for Housing in the Last Year: No Number of Times Moved in the Last Year: 0 Homeless in the Last Year: No [5] No family history on file. PROTIME AND APTT Collected: 09/09/2024 10:43 AM Stat us: F Source: [facility] TYPE CODE TESTS RESULT OUT OF RANGE REFERENCE UNITS LAB [id number] PROTHROMBIN TIME 11.9 9.0-12.0 s LAB [id number] INR 1.1 0.9-1.1 Result Comment: Recommended Anticoagulant Therapy: SEE BELOW ----- INR of [...] therapy is used to prevent Myocardial Infarction LAB [id number] APTT 20.8 20.0-30.5 s Performed By: #### [id number] #### Board Catcher: NICOLA HOWARD ([id number]) [address] CBC WITH AUTO DIFFERENTIAL Collected: 09/09/2024 10:4 3 AM Status: F Source: [facility] TYPE CODE TESTS RESULT OUT OF RANGE REFERENCE UNITS LAB [id number] WBC 15.1 High 3.6-10.7 10*3/uL LAB [id number] RBC 2.70 Low 4.40-5.90 10*6/uL LAB [id number] HEMOGLOBIN 7.8 Low 13.0-18.0 g/dL LAB [id number] HEMATOCRIT 24.3 Low 40.0-52.0 % LAB [id number] MCV 90.0 77.0-99.0 fL LAB [id number] MCH 28.9 26.0-34.0 pg LAB [id number] MCHC 32.1 30.5-36.0 % LAB 2223744 RDW 15.5 High 11.5-15.0 % LAB [id number] PLATELET COUNT 211 140-440 10*3/uL LAB [id number] MPV 9.8 9.0-12.7 fL Performed By: #### [id number], [id number] #### Board Catcher: NICOLA HOWARD ([id number]) [address] MANUAL DIFFERENTIAL Collected: 09/09/2024 10:43 AM S tatus: F Source: [facility] TYPE CODE TESTS RESULT OUT OF RANGE REFERENCE UNITS LAB [id number] LEUKOCYTES (10*3/UL) NUCLEATED ERYTHROCYTE ADJUST 15.1 High 3.6-10.7 10*3/uL LAB [id number] SEGEMENTED NEUTROPHILS/100 LEUKOCYTES BY MANUAL COUNT 87 High 38-82 % LAB [id number] NEUTROPHILS BAND FORM/100 LEUKOCYTES IN BLOOD BY MANUAL COUNT 9 High <=0 % LAB 4452086 LYMPHOCYTES/100 LEUKOCYTES IN BLOOD BY MANUAL COUNT 2 Low 15-45 % LAB 1795500 MONOCYTES/100 LEUKOCYTES IN BLOOD BY MANUAL COUNT 2 Low 5-13 % LAB [id number] NEUTROPHILS (SEGS+BANDS) (10*3/UL) BY MANUAL COUNT 14.5 High 1.8-7.0 10*3/uL LAB [id number] SEGMENTED NEUTROPHILS (10*3/UL)IN BLOOD BY MANUAL COUNT 14.5 High 1.8-7.5 10*3/uL LAB [id number] BANDS 1.4 High <=0.0 10*3/uL LAB 5310551 LYMPHOCYTES (10*3/UL) IN BLOOD BY MANUAL COUNT 0.3 Low 1.0-4.3 10*3/uL LAB [id number] MONOCYTES (10*3/UL) IN BLOOD BY MANUAL COUNT 0.3 0.0-0.9 10*3/uL LAB 7931632 ANISOCYTOSIS PRESENCE IN BLOOD BY LIGHT MICROSCOPY Slight Abnormal (none) LAB 5382019 MICROCYTES (PRESENCE) IN BLOOD BY LIGHT MICROSCOPY Slight Abnormal (none) LAB 8377375 POLYCHROMASIA IN BLOOD BY LIGHT MICROSCOPY Slight Abnormal (none) LAB 1421520 LEUKOCYTE MORPHOLOGY FINDING IN BLOOD Normal LAB 0496831 PLATELET MORPHOLOGY IN BLOOD Normal LAB 5252022 CELLS COUNTED TOTAL (#) IN BLOOD 100 LAB 6842019 NEUTROPHILS TOTAL PER COUNTED LEUKOCYTES BY MANUAL COUNT 87 LAB 4507578 LYMPHOCYTES TOTAL PER COUNTED LEUKOCYTES BY MANUAL COUNT 2 LAB 3141592 MONOCYTES TOTAL PER COUNTED LEUKOCYTES BY MANUAL COUNT 2 LAB 5039451 BAND NEUTROPHILS TOTAL PER COUNTED LEUKOCYTES BY MANUAL COUNT 9 Performed By: #### [id number], [id number] #### Board Catcher: NICOLA HOWARD ([id number]) [facility] ([address] COMPREHENSIVE METABOLIC PANEL Collected : 09/09/2024 10:43 AM Status: F Source: [facility] TYPE CODE TESTS RESULT OUT OF RANGE REFERENCE UNITS LAB 0195745 SODIUM 141 136-145 mmol/L LAB [id number] POTASSIUM 5.0 3.5-5.1 mmol/L Result Comment: Plasma potas sium values may be up to 0.5 mmol/L lower than serum values. LAB 8181916 CHLORIDE 110 High 98-107 mmol/L LAB 4069945 CARBON DIOXIDE 25 23-31 mmol/L LAB [id number] ANION GAP (ROMAN, CALCULATED) 6 3-13 mmol/L LAB 3313499 UREA NITROGEN 30 High 9-23 mg/dL LAB 8192258 CREATININE 0.66 Low 0.72-1.25 mg/dL LAB 3932647 GLUCOSE 156 High 82-115 mg/dL LAB 3386665 CALCIUM 7.1 Low 8.8-10.0 mg/dL LAB 1818885 AST (SGOT) 25 <34 U/L LAB 4017395 ALT 6 <40 U/L LAB 0093566 ALKALINE PHOSPHATASE 55 40-150 U/L LAB 6222194 ALBUMIN 2.3 Low 3.4-4.8 g/dL LAB 5320829 BILIRUBIN, TOTAL 0.9 <1.2 mg/dL LAB 1162081 TOTAL PROTEIN 4.9 Low 6.4-8.3 g/dL LAB 8744428 GLOMERULAR FILTRATION RATE ML/MIN/1.73 SQ M.PREDICTED >90.0 >60.0 mL/min/1. 73m*2 Result Comment: Calculation based on the Chronic Kidney Disease Epidemiology Collaboration (CKD-EPI) equation refit without adjustment for race Performed By: #### [id number] ### # Board Catcher: NICOLA HOWARD ([phone]) [facility] [address] [place] [address] BLOOD TYPE AND SCREEN GEL Collected: 09/09/2024 10:43 AM Status: F Source: [facility] TYPE CODE TESTS RESULT OUT OF RANGE REFERENCE UNITS LAB 7164940 ABO GROUPING O LAB 6158791 RH TYPE IN BLOOD POS LAB 6763949 ANTIBODY SCREEN NEG Performed By: #### [id number] ## ## Board Catcher: NICOLA HOWARD ([id number]) [facility] ([facility]) [address] [place] [address] CONSULT Observed: 09/09/2024 10:36 AM Status: COMPLETED Source: [facility] Department of Internal Medic ine Gastroenterology Attending Consult Note Reason for Consult: The patient was seen in consultation at the request of Dr. Marisela re: GI bleed, EGD. CHIEF COMPLAINT: Hematemesis History Obtained From: patient, family, EMR HISTORY OF PRESENT ILLNESS: The patient is a 69 y.o. male with significant past medical history of Factor V leiden, MVP, PE, recently diagnosed DVT on Eliquis, bleeding ulcers, GERD s/p basia and gastric perforation s/p take down of Basia with laparoscopic wedge resection 08/10/2024 who presents as transfer from [facility] ED using [employer] flight with concern for acute upper GI bleeding. Patient was seen in [facility] ED yesterday with c/o abdominal pain. Hgb stable at that time (hgb 10.4) and CT A/P without findings to explain symptoms. He was discharged home. Notes around 5 am this morning, had vomiting of blood and associated fainting. Presented to [facility] ED where family reports hgb was 6. He is s/p 1 unit PRBC per family. Current hgb 7.8. Admitted at [facility] hospital s/p bleeding duodenal ulcer with visible vessel 08/2024. He was transferred to [facility] from [facility] with duodenal perforation. He is s/p diagnostic laparoscopy 08/09 and laparoscopic wedge resection of gastric perforation 08/10. Discharged from hospital 08/13/2024. Readmitted to hospital 08/24/2024 Was planning for duodenal stent removal yesterday but patient took Eliquis and this could not be completed. Per CT A/P yesterday, prior gastric/duodenal stent now migrated into right colon with tip at level of hepatic flexure. Allergies: Penicillins Current Medications: Current Medications[1] Past Medical History: Active Ambulatory Problems Diagnosis Date Noted Duodenal perforation (CMS/HCC) ([facility]) 08/09/2024 Duodenal ulceration 08/09/2024 Pneumoperitoneum 08/09/2024 Severe malnutrition (CMS/HCC) ([facility]) 08/12/2024 Abdominal pain 08/25/2024 Resolved Ambulatory Problems Diagnosis Date Noted Malnutrition (CMS/HCC) ([facility]) 08/12/2024 Past Medical History: Diagnosis Date MVP (mitral valve prolapse) Pulmonary embolism ([facility]) Past Surgical History: Social History Socioeconomic History Marital status: Spouse [...] Never true Transportation Needs: No Transportation Needs (08/25/2024) PRAPARE - Transportation Lack of Transportation (Medical): No Lack of Transportation (Non-Medical): No Physical Activity: Not on file Stress: Not on file Social Connections: Not on file Intimate Partner Violence: Not At Risk (08/25/2024) Humiliation, Afraid, Rape, and Kick questionnaire Fear of Current or Ex-Partner: No Emotionally Abused: No Physically Abused: No Sexually Abused: No Housing Stability: Low Risk (08/25/2024) Housing Stability Vital Sign Unable to Pay for Housing in the Last Year: No Number of Times Moved in the Last Year: 0 Homeless in the Last Year: No Family History: Family History[2] No family history colon or stomach cancer. Social History: TOBACCO: reports that he has never smoked. He has never used smokeless tobacco. ETOH: reports current alcohol use of about 2.0 standard drinks of alcohol per week. DRUGS: reports no history of drug use. 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 Normal appetite and weight. No CHUN, visual disturbance, eye pain, jaundice, sore throat or mouth ulcers. No skin rash or itching. No CP, SOB, [place], cough or wheeze. No urinary frequency, urgency, hematuria, or dysuria. No myalgia, arthralgia, or joint swelling. No weakness, numbness, or confusion. GI per HPI. No polyuria, polydipsia, heat or cold intolerance. PHYSICAL EXAM: VS: BP 113/68 Pulse 73 Temp 36.3 ?C (97.4 ?F) (Temporal) Resp 12 SpO2 97% There is no height or weight on file to calculate BMI. Constitutional: No acute distress but patient appears unwell Head/Eyes: Conjunctiva are not injected; Sclera are non-icteric. ENT: Ears/nose without external abnormalities. Oral mucosa is pink and moist. Respiratory: Clear to auscultation bilaterally without any added sounds. Effort is normal Heart: Regular, Normal S1 and S2. No murmur; No added sounds. Abdomen: +LLQ ttp; Normal BS, soft, , non-distended; no hepatomegaly. Extremities/Skin: No LE edema; Skin warm to touch and well perfused. Patient pale. Musculoskeletal: Head - normocephalic. Neck - supple Psychiatric: AAO x 3, answers appropriately, normal mood, normal affect. Non-focal. DATA: Recent blood work and relevant radiologic and endoscopic studies were reviewed and discussed with the patient. CBC: Recent Labs 09/08/24 1425 09/09/24 1043 WBC 8.9 15.1* RBC 3.60* 2.70* HGB 10.4* 7.8* HCT 32.2* 24.3* MCV 89.4 90.0 MCH 28.9 28.9 MCHC 32.3 32.1 RDW 15.3* 15.5* PLT 308 211 MPV 9.3 9.8 CMP: Recent Labs 09/08/24 1425 09/09/24 1043 NA 139 141 K 3.6 5.0 CL 106 110* CO2 28 25 BUN 13 30* CREATININE 0.70* 0.66* GLUCOSE 107 156* CALCIUM 8.6* 7.1* PROT 6.6 4.9* BILITOT 0.7 0.9 ALKPHOS 83 55 AST 20 25 ALT 10 6 PT/INR: Recent Labs 09/09/24 1043 INR 1.1 Radiologic Review 09/08/2024 CT Abdomen/Pelvis HISTORY: Right lower quadrant pain After intravenous contrast sections performed through the abdomen and pelvis. Dose reduction was employed with automated exposure control. Comparison study from 08/25/2024. FINDINGS: 1. Previously placed gastric/duodenal stent has now migrated into the right colon with tip at the level of the hepatic flexure. 2. A clip is seen in the duodenum which has not migrated. Perigastric and periduodenal tissues show vague soft tissue thickening without definite free air with wall thickening (although focal small infectious process difficult to exclude at this time). Slight narrowing midportion duodenum between mesenteric vessels and aorta. 3. Small hepatic and renal cysts, IVC filter in good position with small metallic foreign matter by the inferior aspect left renal vein, degenerative facet and disc changes lumbar spine, prostatic enlargement, prior posterior wall stomach surgery. Report Dictated on Electronically Signed By: Henry Gonzales MD Electronically Signed Date/Time: 09/08/2024 3:58 PM EDT Endoscopic Review IMPRESSION/RECOMMENDATIONS: Hematemesis -patient reports multiple episodes of hematemesis starting 0500 today History of bleeding duodenal ulcer-08/07/2024 oozing duodenal ulcer with visible vessel; treated with APC, clips placed History of duodenal perforation -08/10/2024 s/p laparoscopic wedge resection of gastric perforation Acute anemia- hgb drop from 10.4-->6; he is s/p 1 unit PRBC --plan for EGD today; patient and family are agreeable --remain NPO in anticipation of procedure --recommend pantoprazole infusion --continue to monitor H/H, transfuse as indicated per primary team --monitor Bms for passing of stent (per imaging gastric/duodenal stent now migrated into right colon with tip at level of hepatic flexure. --plan discussed with Dr. Car [1] Current Facility-Administered Medications: acetaminophen (Ofirmev) IVPB 1,000 mg, 1,000 mg, IntraVENous, q6h PRN, Aliya Antonio MD [Held by provider] apixaban (Eliquis) tablet 5 mg, 5 mg, Oral, BID, Aliya Antonio MD [Held by provider] dicyclomine (Bentyl) tablet 20 mg, 20 mg, Oral, TID, Aliya Antonio MD [Held by provider] docusate sodium (Colace) capsule 100 mg, 100 mg, Oral, q12h, Aliya Antonio MD HYDROmorphone (Dilaudid) injection 0.25 mg, 0.25 mg, IntraVENous, q4h PRN OR HYDROmorphone (Dilaudid) injection 0.5 mg, 0.5 mg, IntraVENous, q4h PRN, Teresita Castaneda MD lactated Ringer's infusion, 100 mL/hr, IntraVENous, Continuous, Aliya Antonio MD, Last Rate: 100 mL/hr at 09/09/24 1139, 100 mL/hr at 09/09/24 1139 naloxone (Narcan) injection 0.4 mg, 0.4 mg, IntraVENous, q5 min PRN, Aliya Antonio MD ondansetron ODT (Zofran-ODT) disintegrating tablet 4 mg, 4 mg, Oral, q8h PRN OR ondansetron (Zofran) injection 4 mg, 4 mg, IntraVENous, q6h PRN, Aliya Antonio MD pantoprazole (ProtoNix) 40 mg in sodium chloride (PF) 0.9 % 10 mL injection, 40 mg, IntraVENous, BID, Teresita Castaneda MD, 40 mg at 09/09/24 1139 [Held by provider] polyethylene glycol (PEG) 3350 (Miralax) packet 17 g, 17 g, Oral, Daily PRN, Aliya Antonio MD sodium chloride 0.9 % infusion, 5-250 mL/hr, IntraVENous, PRN, Aliya Antonio MD sodium chloride 0.9 % infusion, 5-250 mL/hr, IntraVENous, PRN, Skylar Reza APRN - ONLINE EDUCATION MANAGER sodium chloride 0.9% (NS) flush 10 mL, 10 mL, IntraVENous, 2 times per day, Skylar Reza APRN - DEANNA sodium chloride 0.9% (NS) flush 10 mL, 10 mL, IntraVENous, PRN, Skylar Reza APRN - ONLINE EDUCATION MANAGER sodium chloride 0.9% (NS) flush 5-40 mL, 5-40 mL, IntraVENous, q12h, Aliya Antonio MD, 10 mL at 09/09/24 1044 sodium chloride 0.9% (NS) flush 5-40 mL, 5-40 mL, IntraVENous, PRN, Aliya Antonio MD [2] No family history on file. HISTORY AND PHYSICAL NOTE Observed: 10/2024 9:50 AM Status: COMPLETED Source: [facility] Attestation signed by Kieran Peterson MD at 11/05/2024 7:45 PM ATTENDING ADDENDUM I independently saw the above patient and reviewed the recent events, imaging, labs, vital signs; I performed a physical exam and ROS. My findings agree with the above note except for any details corrected below. Problem List[1] A complete review of systems was obtained and is negative except as stated in HPI. 69M direct T2 SICU transfer from [facility] after presenting w/ hematemesis and hb 6. Hx significant for recent bleeding duodenal ulcer managed w/ EGD and stent placement. Received 1prbc at [facility] and transferred to [facility] arriving hemodynamically stable PMH: duodenal perforation s/p gastric wedge resection 08/2024, mitral valve prolapse, PE/DVT, Factor V leiden, on eliquis, GERD s/p Basia PLAN: -I evaluated pt on 09/09/24 -Neuro: multimodal pain control -CV: grossly HDS at this time, MAP goal >65, hold eliquis -Pulm: on RA, aggressive pulm toilet -GI: hematemesis w/ recent duodenal ulcer managed with EGD/stent; most recent CT shows stent has now migrated to proximal colon... keep NPO, IVF, BID PPI, GI consult for EGD/colonoscopy -: strict I/Os -Endo: monitor BG -Heme: monitor for active bleed w/ q6 h/h, will consider eliquis reversal if hb not responding, transfuse as needed for goal hb >7, hold DVT ppx -ID: monitor fever, WBC curve -MSK: PT/OT Dispo: T2 SICU Level of Medical Decision Making: [x]High []Moderate []Low Complexity: Acute or chronic illness posing a threat to life (HIGH) Risk: Use/consideration of therapy requiring intensive monitoring: blood products (anaphylaxis, TRLI, TACO, hypocalcemia, sepsis): telemetry, CBC or H&H, BMP (HIGH) Escalation of care to ICU was considered or occurred (HIGH). Personally Reviewed/Independently interpreted patient's: [x]Epic notes [x]Radiology studies [x]Labs []EKG []Ordering tests []Other Discussed/ With: [x]Patient/Family [x]RN [x]Consultants []SW/TCC []Other Time was spent, Reviewing medical record including recent tests and results Ordering prescription medications/tests and procedures Communicating results to the patient/family/caregiver Counseling/educating the patient/family/caregiver Documenting clinical information the patient's electronic record Coordination of care for the patient Performing a medical appropriate exam and evaluation Critical Care time spent 37 min. The time involved in the performance of this care was exclusive of separately billable procedures, teaching time and treating other patients. The time was spent personally by the attending physician for the following activities: examination of the patient, ordering and/or performing treatment, reviewing the laboratory and radiographic studies, and if applicable, ventilator management and blood gas interpretation. Critical Care was necessary because of an illness or injury that actively impaired one or more vital organ systems such that there was a high probability of imminent life treatening deterioration in the patient's condition. The following organ systems are involved: GI, Heme Kieran Peterson MD, FACS Trauma, Surgical Critical Care & Acute Care Surgery Division of Trauma Department of Surgery [facility] Pager: [phone] [1] Patient Active Problem List Diagnosis Duodenal perforation (CMS/HCC) (HCC) Duodenal ulceration Pneumoperitoneum Severe malnutrition (CMS/HCC) (HCC) Abdominal painHematemesis Anemia Anemia due to acute blood loss Constipation History of inferior vena caval filter placement Leukocytosis Mitral valve prolapse Orthostatic hypotension Pulmonary embolism (HCC) Syncope [facility] SICU H&P 09/09/2024 9:50 AM Attending: Dr. Wakefield Chief Complaint: Hematemesis History of Present Illness: 69 y.o. male presents with from [facility] using [email or web address] flight with concerns for acute upper GI bleeding. The patient had originally started endorsing abdominal pain on 09/08 where he was evaluated in the ED. He was discharged after GI consult and treatment with pain management, fluids, and zofran with follow up. The pain persisted prompting the patient to be evaluated at [place] ED. At the time, he had began having episodes of bloody vomiting. Hgb was reportedly 6 at their ED, he was transfused one unit of PRBC, and bleeding was stopped. Discussed the case with Dr. Wakefield who accepted patient transfer to [facility] TICU for further evaluation and management. On interview, the patient was alert and oriented. He endorse some abdominal pain still, but not in any discomfort or distress. Has not had any additional hematemesis so far. Hx is significant for duodenual perforation with recent laparoscopic wedge resection on 08/10/24 and laparoscopic lysis of adhesions on 08/09/24, Mitral valve prolapse, and pulmonary embolism. Takes eliquis at home. Medical History[1] Surgical History[2] Family History[3] Social [...] Never true Transportation Needs: No Transportation Needs (08/25/2024) PRAPARE - Transportation Lack of Transportation (Medical): No Lack of Transportation (Non-Medical): No Physical Activity: Not on file Stress: Not on file Social Connections: Not on file Intimate Partner Violence: Not At Risk (08/25/2024) Humiliation, Afraid, Rape, and Kick questionnaire Fear of Current or Ex-Partner: No Emotionally Abused: No Physically Abused: No Sexually Abused: No Housing Stability: Low Risk (08/25/2024) Housing Stability Vital Sign Unable to Pay for Housing in the Last Year: No Number of Times Moved in the Last Year: 0 Homeless in the Last Year: No Prior to Admission medications Medication Sig Start Date End Date Taking? Authorizing Provider apixaban (Eliquis) 5 MG tablet Take 2 tablets (10 mg) by mouth 2 times daily for 7 days, THEN 1 tablet (5 mg) 2 times daily. 08/25/24 11/30/24 BARRIE Coleman CNP dicyclomine (Bentyl) 20 MG tablet Take 20 mg by mouth 3 times daily. 05/07/24 Historical Provider, docusate sodium (Colace) 100 MG capsule Take 1 capsule (100 mg) by mouth every 12 hours. 09/08/24 10/08/24 Alessandra Perdomo PA-C Multiple Vitamins-Minerals (multivitamin with minerals) tablet Take 1 tablet by mouth daily. Historical Provider, oxyCODONE-acetaminophen (Percocet) 5-325 MG tablet Take 1 tablet by mouth every 6 hours as needed for severe pain (7-10) for up to 3 days. 09/08/24 09/11/24 Alessandra Perdomo PA-C docusate sodium (Colace) 100 MG capsule Take 100 mg by mouth 2 times daily. 05/07/24 09/08/24 Historical Provider, docusate sodium (Colace) 100 MG capsule Take 1 capsule (100 mg) by mouth every 12 hours. 09/08/24 09/08/24 BARRIE Duffy CNP oxyCODONE-acetaminophen (Percocet) 5-325 MG tablet Take 1 tablet by mouth every 6 hours as needed for severe pain (7-10) for up to 3 days. 09/08/24 09/08/24 BARRIE Duffy CNP Allergies[4] Who is healthcare POA or next of kin? , Rachana Does the patient have a DNR? No Living Will? No INITIAL VITALS: BP 154/100 HR 79 RR 16 Temp 37.1 SpO2 98 Review of Systems Gastrointestinal: Positive for nausea and vomiting. Neurological: Positive for syncope. All other systems reviewed and are negative. Physical Exam Vitals and nursing note reviewed. Constitutional: General: He is not in acute distress. Appearance: He is ill-appearing. He is not toxic-appearing or diaphoretic. HENT: Head: Normocephalic. Cardiovascular: Rate and Rhythm: Normal rate and regular rhythm. Pulmonary: Effort: Pulmonary effort is normal. No respiratory distress. Breath sounds: Normal breath sounds. No wheezing. Abdominal: General: Abdomen is flat. There is no distension. Palpations: Abdomen is soft. Tenderness: There is abdominal tenderness. There is no guarding. Musculoskeletal: General: Normal range of motion. Cervical back: Normal range of motion. Skin: General: Skin is warm and dry. Coloration: Skin is pale. Neurological: Mental Status: He is alert and oriented to person, place, and time. Psychiatric: Mood and Affect: Mood normal. CBC: No results found for: WBC, RBC, HGB, HCT, MCV, MCH, MCHC, RDW, PLT, MPV BMP: No results found for: NA, K, CL, CO2, BUN, CREATININE, CALCIUM, LABGLOM, GLUCOSE, GLU Urine Toxicology: No components found for: IAMMENTA, IBARBIT, IBENZO, ICOCAINE, IMARTHC, IOPIATES, IPHENCYC IV Access: PIV x2 NG/OG: No Kumar: No Radiology: Images in PACS - CTA prior to transfer this am without evidence of extrav, stent now in distal transverse colon ASSESSMENT: Problem List[5] PLAN: Neuro / Spine - MMPC: ofirmev, prn dilaudid Cardiovascular - Hemodynamically stable - BP Goal <140 SBP - Labetalol/hydralazine prn - Telemetry - hold home eliquis Pulmonary - Standard O2 protocol - IS FEN/GI - NPO with LR 100cc/H - Zofran PRN - Daily BMP, CBC, Mg, Phos, obtain now - Protonix 40mg IV PPI - ALS cs - GI cs for EGD/C scope consideration - No acute issues - Monitor I/Os - Goal UOP > 0.5 ml/kg/hr - Creatinine clearance cannot be calculated (Unknown ideal weight.) Endocrine - no acute issues Heme - repeat cbc now, q 6hr h/hs following - if persisting tf requirements, consider reversal of eliquis - 1 u prbcs prior to transfer ID - no acute issues, fu cbc now - MRSA nasal swab Musculoskeletal: - PT/OT - OOBA Lines/Devices: - PIV Prophylaxis: DVT: SCDs, no chemoppx Has DVT PPX been started? Yes If no, why? Patient with Acute GI Bleed; consider start at 48hr s/p stable Hb/resolution of clinical bleeding GI: Protoinx 40 bid iv Pressure Ulcer: Continue to monitor,OOBA Teresita Castaneda MD PGY-3, General Surgery Pager# [phone] 09/09/2024 11:41 AM [1] Past Medical History: Diagnosis Date MVP (mitral valve prolapse) Pulmonary embolism (HCC) [2] Past Surgical History: Procedure Laterality Date HERNIA REPAIR OTHER SURGICAL HISTORY N/A 08/10/2024 APAROSCOPY, DIAGNOSTIC, LYSIS OF ADHESIONS, EGD SHOULDER SURGERY [3] No family history on file. [4] Allergies Allergen Reactions Penicillins [5] Patient Active Problem List Diagnosis Duodenal perforation (CMS/HCC) (HCC) Duodenal ulceration Pneumoperitoneum Severe malnutrition (CMS/HCC) (HCC) Abdominal pain CT ABDOMEN PELVIS W CONTRAST Observed: 0 09/08/2024 3:58 PM Status: F Source: [employer] [facility] Patient Name: [facility]INE [facility]ARC[facility] 1955 [id number] Exam Date/Time: 09/08/2024 15:34 Procedure: CT ABDOMEN PELVIS W CONTRAST Ordering Provider: TUCKER REBECCA Reason For Exam: RLQ abdominal pain (Age >= 14y); recent laproscopic surgery HISTORY: Right lower quadrant pain After intravenous contrast sections performed through the abdomen and pelvis. Dose reduction was employed with automated exposure control. Comparison study from 08/25/2024. FINDINGS: 1. Previously placed gastric/duodenal stent has now migrated into the right colon with tip at the level of the hepatic flexure. 2. A clip is seen in the duodenum which has not migrated. Perigastric and periduodenal tissues show vague soft tissue thickening without definite free air with wall thickening (although focal small infectious process difficult to exclude at this time). Slight narrowing midportion duodenum between mesenteric vessels and aorta. 3. Small hepatic and renal cysts, IVC filter in good position with small metallic foreign matter by the inferior aspect left renal vein, degenerative facet and disc changes lumbar spine, prostatic enlargement, prior posterior wall stomach surgery. Report Dictated on Electronically Signed By: Henry Gonzales MD Electronically Signed Date/Time: 09/08/2024 3:58 PM EDT CBC WITH AUTO DIFFERENTIAL Collected: 09/08/2024 2:25 PM Status: F Source: [facility] TYPE CODE TESTS RESULT OUT OF RANGE REFERENCE UNITS LAB [id number] WBC 8.9 3.6-10.7 10*3/uL LAB 9634074 RBC 3.60 Low 4.40-5.90 10*6/uL LAB 7815518 HEMOGLOBIN 10.4 Low 13.0-18.0 g/dL LAB 6127853 HEMATOCRIT 32.2 Low 40.0-52.0 % LAB 6426161 MCV 89.4 77.0-99.0 fL LAB 5365835 MCH 28.9 26.0-34.0 pg LAB 1424263 MCHC 32.3 30.5-36.0 % LAB 4715843 RDW 15.3 High 11.5-15.0 % LAB 0839005 PLATELET COUNT 308 140-440 10*3/uL LAB 7921766 MPV 9.3 9.0-12.7 fL LAB 254 NRBC 0.0 0.0-2.0 /100 WBCs LAB 0949681 NEUTROPHILS RELATIVE 74.4 38.0-82.0 % LAB 7891841 LYMPHOCYTES RELATIVE 12.4 Low 15.0-45.0 % LAB 9938141 MONOCYTES RELATIVE 7.2 5.0-13.0 % LAB 1287806 EOSINOPHILS RELATIVE 5.0 0.0-6.0 % LAB 7334348 BASOPHILS RELATIVE 0.6 0.0-2.0 % LAB 0285570 IMMATURE GRANS % 0.4 0.0-2.0 % LAB 3938671 NEUTROPHILS ABSOLUTE 6.6 1.8-7.5 10*3/uL LAB 8666175 LYMPHOCYTES ABSOLUTE 1.1 1.0-4.3 10*3/uL LAB 2656896 MONOCYTES ABSOLUTE 0.6 0.0-0.9 10*3/uL LAB 8492210 EOSINOPHILS ABSOLUTE 0.5 0.0-0.5 10*3/uL LAB 6708366 BASOPHILS ABSOLUTE 0.1 0.0-0.2 10*3/uL LAB 492407 IMMATURE GRANS ABSOLUTE 0.0 <0.1 10*3/uL Performed By: #### [id number] # ### Board Catcher: NICOLA HOWARD ([id number]) [facility] ([facility]) [address] [place] [address] BASIC METABOLIC PANEL Collected: 2024 2:25 PM Status: F Source: [facility] TYPE CODE TESTS RESULT OUT OF RANGE REFERENCE UNITS LAB 6320023 SODIUM 139 136-145 mmol/L LAB 2601609 POTASSIUM 3.6 3.5-5.1 mmol/L Result Comment: Plasma potas sium values may be up to 0.5 mmol/L lower than serum values. LAB 2704888 CHLORIDE 106 98-107 mmol/L LAB 1675509 CARBON DIOXIDE 28 23-31 mmol/L LAB 8624986 UREA NITROGEN 13 9-23 mg/dL LAB 9360818 CREATININE 0.70 Low 0.72-1.25 mg/dL LAB 1244036 GLUCOSE 107 82-115 mg/dL LAB 3853874 CALCIUM 8.6 Low 8.8-10.0 mg/dL LAB [id number] ANION GAP (ROMAN, CALCULATED) 5 3-13 mmol/L LAB 1505455 GLOMERULAR FILTRATION RATE ML/MIN/1.73 SQ M.PREDICTED >90.0 >60.0 mL/min/1. 73m*2 Result Comment: Calculation based on the Chronic Kidney Disease Epidemiology Collaboration (CKD-EPI) equation refit without adjustment for race Performed By: #### LAB15, LA B20, LAB99 #### Board Catcher: NICOLA HOWARD ([id number]) [facility] ([facility]) [address] [place] [address] HEPATIC FUNCTION PANEL Collected: 09/08/2024 2:25 PM Status: F Source: [facility] TYPE CODE TESTS RESULT OUT OF RANGE REFERENCE UNITS LAB 3002882 BILIRUBIN, TOTAL 0.7 <1.2 mg/dL LAB 8864797 BILIRUBIN, DIRECT 0.2 <0.5 mg/dL LAB 9254799 ALKALINE PHOSPHATASE 83 40-150 U/L LAB 1095924 AST (SGOT) 20 <34 U/L LAB 4841277 ALT 10 <40 U/L LAB 6112857 ALBUMIN 3.1 Low 3.4-4.8 g/dL LAB 6354357 TOTAL PROTEIN 6.6 6.4-8.3 g/dL Result Comment: Serum protei n values are higher than plasma values. Samples from recumbent persons are lower by up to 0.5 g/dL as compared to ambulatory persons. After 60 years values are lower by up to 0.2 g/dL. Performed By: #### LAB15, LA B20, LAB99 #### Board Catcher: NICOLA HOWARD ([id number]) [facility] ([facility]) [address] [place] [address] LIPASE Collected: 2:25 PM Status: F Source: [facility] TYPE CODE TESTS RESULT OUT OF RANGE REFERENCE UNITS LAB [id number] LIPASE 17 <55 U/L Performed By: #### LAB15, LA B20, LAB99 #### Board Catcher: NICOLA HOWARD ([id number]) [facility] ([facility]) [address] [place] [address] COMPLETE URINALYSIS WITH REFLEX TO CULTURE Collected: 09/08/2024 2:07 PM Status: F Source: [facility] TYPE CODE TESTS RESULT OUT OF RANGE REFERENCE UNITS LAB [id number] COLOR OF URINE Light Yellow Lt. Yellow LAB 4125229 CLARITY OF URINE Clear Clear LAB 0990699 PH OF URINE 7.0 5.0-8.0 pH LAB 0843712 LEUKOCYTE ESTERASE PRESENCE IN URINE BY TEST STRIP Negative Negative Fawn/uL LAB 7536212 NITRITE PRESENCE IN URINE Negative Negative LAB 8112591 PROTEIN (MG/DL) IN URINE BY TEST STRIP Negative Negative mg/dL LAB 2528990 GLUCOSE (MG/DL) IN URINE Normal Normal (<70) mg/dL LAB 9959528 BILIRUBIN, TOTAL PRESENCE IN URINE Negative Negative mg/dL LAB 548 KETONES (MG/DL) IN URINE 40 Abnormal Negative mg/dL LAB 19 UROBILINOGEN (MG/DL) IN URINE Normal Normal (0-1) mg/dL LAB 549 HEMOGLOBIN PRESENCE IN URINE Negative Negative mg/dL LAB 1199 SPECIFIC GRAVITY OF URINE (NUMERIC) 1.015 1.005-1.030 Result Comment: ORDER COMMEN TS: A specimen with <=10 WBC is not consistent with inflammation. This specimen will not reflex to a urine culture. Performed By: #### [id number] #### Board Catcher: NICOLA HOWARD ([id number]) [facility] ([facility]) [address] ED NURSING NOTE Observed: 09/08/2024 11:40 AM Status: COMPLETED Source: [facility] Pt complains of abd pain suman t started Wednesday. Pt states surgery 08/09. ED PROVIDER NOTE Observed: 09/08/2024 11:40 AM Status: COMPLETED Source: [facility] EMERGENCY DEPARTMENT ENCOUNT ER Pt Name: Laine Garcia Birthdate 1955 Date of evaluation: 09/08/2024 ED Provider: Dione Tucker, LION TAMER - ONLINE EDUCATION MANAGER EDcare was supervised by Dr. Bolden who independently examined and evaluated the patient. Please see their attestation note for further details. CHIEF COMPLAINT Chief Complaint Patient presents with Abdominal Pain Pt complains of abd pain that started Wednesday. Pt states surgery 08/09. HISTORY OF PRESENT ILLNESS (Location/Symptom, Timing/Onset, Context/Setting, Quality, Duration, Modifying Factors, Severity) Note limiting factors. I wore appropriate PPE for the entirety of this encounter. HPI 69-year-old male with a past history of mitral valve prolapse, PE/DVT on Eliquis, GERD status post Niesen and gastric perforation status post taken down at [place] with laparoscopic wedge resection on August 10, 2024 presents to the emergency department today for abdominal pain. Patient states that he has been having right left lower quadrant discomfort for 2 days. Is progressively worsened for him. He was recently discharged from our facility on August 25. He was to have his abdominal stent removed this morning however he took his Eliquis so therefore they canceled the appointment. Nursing Notes were reviewed. Limitations to history: None Outside historians: None REVIEW OF SYSTEMS Review of Systems Pertinent positives and negatives as per HPI. PAST MEDICAL HISTORY Medical History[1] SURGICAL HISTORY Surgical History[2] CURRENT MEDICATIONS Previous Medications APIXABAN (ELIQUIS) 5 MG TABLET Take 2 tablets (10 mg) by mouth 2 times daily for 7 days, THEN 1 tablet (5 mg) 2 times daily. DICYCLOMINE (BENTYL) 20 MG TABLET Take 20 mg by mouth 3 times daily. DOCUSATE SODIUM (COLACE) 100 MG CAPSULE Take 100 mg by mouth 2 times daily. MULTIPLE VITAMINS-MINERALS (MULTIVITAMIN WITH MINERALS) TABLET Take 1 tablet by mouth daily. ALLERGIES Penicillins FAMILY HISTORY Family History[3] SOCIAL HISTORY Social History[4] SCREENINGS PHYSICAL EXAM ED Triage Vitals [09/08/24 1251] Temp Heart Rate Resp BP 37.1 ?C (98.7 ?F) 79 16 (!) 154/100 SpO2 Temp Source Heart Rate Source Patient Position 98 % Temporal Monitor -- BP Location FiO2 (%) -- -- Physical Exam Vitals and nursing note reviewed. Constitutional: General: He is not in acute distress. Appearance: He is well-developed. HENT: Head: Normocephalic and atraumatic. Eyes: Conjunctiva/sclera: Conjunctivae normal. Cardiovascular: Rate and Rhythm: Normal rate and regular rhythm. Heart sounds: No murmur heard. Pulmonary: Effort: Pulmonary effort is normal. No respiratory distress. Breath sounds: Normal breath sounds. Abdominal: Palpations: Abdomen is soft. Tenderness: There is abdominal tenderness in the left lower quadrant. There is no right CVA tenderness, left CVA tenderness, guarding or rebound. Musculoskeletal: General: No swelling. Cervical back: Neck supple. Skin: General: Skin is warm and dry. Capillary Refill: Capillary refill takes less than 2 seconds. Neurological: Mental Status: He is alert. Psychiatric: Mood and Affect: Mood normal. DIAGNOSTIC RESULTS RADIOLOGY (Per Emergency Physician): Interpretation per the Radiologist below, if available at the time of this note: CT abdomen pelvis w contrast Final Result LABS: Labs Reviewed CBC WITH AUTO DIFFERENTIAL - Abnormal Result Value Auto WBC 8.9 RBC 3.60 (*) Hemoglobin 10.4 (*) Hematocrit 32.2 (*) MCV 89.4 MCH 28.9 MCHC 32.3 RDW 15.3 (*) Platelets 308 MPV 9.3 nRBC 0.0 Neutrophils Relative 74.4 Lymphocytes Relative 12.4 (*) Monocytes Relative 7.2 Eosinophils Relative 5.0 Basophils Relative 0.6 Immature Grans % 0.4 Neutrophils Absolute 6.6 Lymphocytes Absolute 1.1 Monocytes Absolute 0.6 Eosinophils Absolute 0.5 Basophils Absolute 0.1 Immature Grans Absolute 0.0 COMPLETE URINALYSIS WITH REFLEX TO CULTURE - Abnormal Color, Urine Light Yellow Clarity, Urine Clear pH, Urine 7.0 Leukocytes, Urine Negative Nitrite, Urine Negative Protein, Urine Negative Glucose, Urine Normal Bilirubin, Urine Negative Ketones, Urine 40 (*) Urobilinogen, Urine Normal Blood, Urine Negative SPECIFIC GRAVITY OF URINE (NUMERIC) 1.015 Narrative: A specimen with <=10 WBC is not consistent with inflammation. This specimen will not reflex to a urine culture. BASIC METABOLIC PANEL - Abnormal SODIUM 139 POTASSIUM 3.6 CHLORIDE 106 CARBON DIOXIDE 28 UREA NITROGEN 13 CREATININE 0.70 (*) GLUCOSE 107 CALCIUM 8.6 (*) ANION GAP 5 eGFR >90.0 HEPATIC FUNCTION PANEL - Abnormal BILIRUBIN, TOTAL 0.7 BILIRUBIN, DIRECT 0.2 ALKALINE PHOSPHATASE 83 AST (SGOT) 20 ALT 10 ALBUMIN 3.1 (*) TOTAL PROTEIN 6.6 LIPASE - Normal LIPASE 17 All other labs were within normal range or not returned as of this dictation. EMERGENCY DEPARTMENT COURSE and DIFFERENTIAL DIAGNOSIS/MDM: Vitals: Vitals: 09/08/24 1251 BP: (!) 154/100 Pulse: 79 Resp: 16 Temp: 37.1 ?C (98.7 ?F) TempSrc: Temporal SpO2: 98% Medications morphine injection 4 mg (4 mg IntraVENous Given 09/08/24 1430) ondansetron (Zofran) injection 4 mg (4 mg IntraVENous Given 09/08/24 1430) sodium chloride 0.9 % bolus 1,000 mL (0 mL IntraVENous Stopped 09/08/24 1620) iopamidol (Isovue-370) 76 % injection 75 mL (75 mL IntraVENous Given 09/08/24 1538) morphine injection 4 mg (4 mg IntraVENous Given 09/08/24 1713) On initial valuation patient is obviously having discomfort in the left lower quadrant at this time. Was given a liter of fluids, morphine and Zofran in the ED. He continued to have pain during the stay was given additional dose of morphine. Labs were obtained lipase and BMP are within normal limits Paddock function within normal limits CBC shows no leukocytosis hemoglobin 10.4 which is at patient's baseline. Urine does show positive for ketones. CT abdomen and pelvis shows duodenal stent in the right colon with tip at the level of the hepatic flexure clip with duodenum which has not migrated and there is some vague soft tissue thickening without definite free air and small hepatic renal cysts. I spoke with gastroenterology on-call who recommends discharge home withpain control and follow-up on Wednesday. States if the patient does passes that he wants a photo of it. The patient states they are Mario origin of capabilities of this. They did ask to speak with the emergency department physician again prior to discharge. Please see his note for this discussion. Differential diagnosis including but not limited to abscess, peritonitis, stent abnormality, gastroenteritis, diverticulitis PROCEDURES: Unless otherwise noted below, none Procedures CRITICAL CARE TIME None FINAL IMPRESSION 1. Abdominal pain, unspecified abdominal location DISPOSITION Discharge 09/08/2024 05:08:18 PM PATIENT REFERRED TO: No follow-up provider specified. DISCHARGE MEDICATIONS: New Prescriptions No medications on file (Comment: Please note this report has been produced using speech recognition software and may contain errors related to that system including errors in grammar, punctuation, and spelling, as well as words and phrases that may be inappropriate. If there are any questions or concerns please feel free to contact the dictating provider for clarification.) Dione Tucker APRN - ONLINE EDUCATION MANAGER (electronically signed) Emergency Medicine Provider [1] Past Medical History: Diagnosis Date MVP (mitral valve prolapse) Pulmonary embolism (HCC) [2] Past Surgical History: Procedure Laterality Date HERNIA REPAIR OTHER SURGICAL HISTORY N/A 08/10/2024 APAROSCOPY, DIAGNOSTIC, LYSIS OF ADHESIONS, EGD SHOULDER SURGERY [3] No family history on file. [4] Social History Socioeconomic History Marital status: Tobacco Use Smoking status: Never Smokeless tobacco: Never Vaping Use Vaping status: Never Used Substance and Sexual Activity Alcohol use: Yes Alcohol/week: 2.0 standard drinks of alcohol Types: 2 Glasses of wine per week Drug use: Never Social Drivers of Health Food Insecurity: No Food Insecurity (08/12/2024) Hunger Vital Sign Worried About Running Out of Food in the Last Year: Never true Ran Out of Food in the Last Year: Never true Transportation Needs: No Transportation Needs (08/25/2024) PRAPARE - Transportation Lack of Transportation (Medical): No Lack of Transportation (Non-Medical): No Intimate Partner Violence: Not At Risk (08/25/2024) Humiliation, Afraid, Rape, and Kick questionnaire Fear of Current or Ex-Partner: No Emotionally Abused: No Physically Abused: No Sexually Abused: No Housing Stability: Low Risk (08/25/2024) Housing Stability Vital Sign Unable to Pay for Housing in the Last Year: No Number of Times Moved in the Last Year: 0 Homeless in the Last Year: No Dione Caitlin, LION TAMER - ONLINE EDUCATION MANAGER 09/08/24 1723 ED PROVIDER NOTE Observed: 09/08/2024 11:40 AM Status: COMPLETED Source: [facility] Emergency Department [facility] EMERGENCY DEPT Patient: Laine Garcia : 1955 Date of Evaluation: 09/08/2024 ED Supervising Physician: Laine Moya MD I personally evaluated Laine Garcia and [...] y.o. that presents to the emergency department patient has a history of ulcers had surgery with gastroduodenal stent placed on August 09 now having 2-day history of increasing left lower quadrant pain. Little bit of nausea no vomiting or diarrhea no fevers chest pain shortness of breath Focused exam: Patient is alert and orient x 4. Vital signs noted. Lungs are clear to auscultation bilateral. Cardiovascular exam is regular rhythm rate without murmur. Abdomen no sternal bowel sounds all quadrants soft there is left lower quadrant tenderness without rebound or mass Brief ED course/MDM: This patient with left lower quadrant pain is still has a gastroduodenal stent and recent surgery a month ago. Will check lab work give pain control fluids and get a CT scan of the abdomen pelvis with contrast to evaluate for obstruction or abscess or bleed Diagnostics interpreted by me: I personally discussed the patient's management with other clinicians: All diagnostic, treatment, and disposition decisions were made by myself in conjunction with the [facility]. For all further details of the patient's [...] to contact the dictating provider for clarification.) Laine Moya MD [employer] Laine Moya MD 09/08/242025 ED PROVIDER NOTE Observed: 09/08/2024 11:40 AM Status: COMPLETED Source: [facility] I did not participate in thi s patient's care, the patient wanted to change his prescription location. Unfortunately previous provider had already left the emergency department, Percocet for the next 3 days was sent to patient's pharmacy, as well as the [facility]. I am not the access clinician of record. Alessandra Perdomo PA-C 09/08/24 1736 36 Observed: 09/08/2024 10:48 AM Status: COMPLETED Source: [facility] LM for daughter Grace to as k if any other symptoms besides pain and if there is worsening symptoms that he should report to ED. DP 36 Observed: 09/08/2024 10:31 AM Status: COMPLETED Source: [facility] Is he having any other sympt oms besides pain? (Nausea/vomiting/dark stools etc). Did he get rescheduled with Dr Tracy? If pain is worsening, should report to ED 36 Observed: 09/08/2024 10:22 AM Status: COMPLETED Source: [facility] Pt's daughter called to say that her dad was scheduled for a stent removal with Dr Tracy today and had to cancel because he took his blood thinner yesterday. Pt took a shower this morning and has been C/O of pain in his stomach on the left side radiating towards the abdomin and she is wondering if they should go to the ED? She said she believes it is worse than the pain he had on august 24 when he went to the ED. Please advise thanks 36 Observed: 09/06/2024 11:05 AM Status: COMPLETED Source: [facility] LM for Grace to notify her that Laine's EGD is scheduled for [facility] on 09/08/2024 @ 12:30 pm with an arrival time of 11:30 am with a truck driver teamster to and from. Patient needs to stop eating at midnight the day before but can have clear liquids up to 2 hrs prior to procedure (10:30 am), may take BP & Heart Medication with a small sip of water 2 hrs prior to procedure or wait to take after procedure is done. DP 36 Observed: 09/04/2024 3:28 PM Status: COMPLETED Source: [facility] Pt emergency contact Grace called to say that Dr Spann referred him to Dr Tracy office at the [facility] for a stent for the removal of a duodenal stent. She wants to know if we have the number to contact there office? VASC US LOWER EXTREMITY VENOUS DUPLEX RIGHT Observed: 08/25/2024 4:12 PM Status: F Source: [facility] This is a summary report. Th e complete report is available in the patient's medical record. If you cannot access the medical record, please contact the sending organization for a detailed fax or copy. ? Acute occlusive deep vein thrombosis in the right gastrocnemius and posterior tibial veins. ? Acute occlusive superficial vein thrombosis in the thigh region of the right great saphenous vein and in the right small saphenous vein. ? Left common femoral vein is patent and fully compressible with spontaneous, pulsatile flow. ? Bilateral lower extremity venous flow is pulsatile. 30 Observed: 08/25/2024 3:17 PM Status: COMPLETED Source: [email or web address] Problem: Pain - Adult Goal: Verbalizes/displays adequate comfort level or baseline comfort level 08/25/2024 1517 by Jenny Rushing RN Outcome: Adequate for Discharge 08/25/2024 1516 by Jenny Rushing RN Outcome: ProgressingFlowsheets Taken 08/25/2024 1500 Verbalizes/displays adequate comfort level or baseline comfort level: Encourage patient to monitor pain and request assistance Taken 08/25/2024 1110 Verbalizes/displays adequate comfort level or baseline comfort level: Encourage patient to monitor pain and request assistance Taken 08/25/2024 0810 Verbalizes/displays adequate comfort level or baseline comfort level: Encourage patient to monitor pain and request assistance Taken 08/25/2024 0710 Verbalizes/displays adequate comfort level or baseline comfort level: Encourage patient to monitor pain and request assistance Problem: Safety - Adult Goal: Free from fall injury 08/25/2024 1517 by Jenny Rushing RN Outcome: Adequate for Discharge 08/25/2024 1516 by Jenny Rushing RN Outcome: ProgressingFlowsheets Taken 08/25/2024 1500 Free from fall injury: Instruct family/caregiver on patient safety Taken 08/25/2024 1110 Free from fall injury: Instruct family/caregiver on patient safety Taken 08/25/2024 0810 Free from fall injury: Instruct family/caregiver on patient safety Problem: Discharge Planning Goal: Discharge to home or other facility with appropriate resources 08/25/2024 1517 by Jenny Rushing RN Outcome: Adequate for Discharge 08/25/2024 1516 by Jenny Rushing RN Outcome: ProgressingProblem: Chronic Conditions and Co-morbidities Goal: Patient's chronic conditions and co-morbidity symptoms are monitored and maintained or improved 08/25/2024 1517 by Jenny Rushing RN Outcome: Adequate for Discharge 08/25/2024 1516 by Jenny Rushing RN Outcome: Progressing PROGRESS NOTE Observed: 08/25/2024 2:17 PM Status: COMPLETED Source: [facility] I (Zara Spann) personally supervised the physician casing puller in the evaluation and development of a [...] couple of weeks with Dr. April Tracy. HARGE SUMMARY Observed: 08/25/2024 2:06 PM Status: COMPLETED Source: [facility] Discharge Summary Laine Garcia : 1955 ADMIT [...] left lower quadrant pain, rates it a /10. He also states he had a fever [...] No pulmonary artery embolus. CT A/P showed no free air and no free fluid. Gastric perforation repair 08/10/2024. Stable appearance of the gastroduodenal stent with intraluminal fluid and air (stent placed for a bleeding duodenal ulcer). Today patient continued to endorse LLQ abdominal pain. A repeat CT A/P was ordered with results showing no acute process. Stable appearance of the abdomen since yesterday's study. General Surgery was consulted and evaluated patient. Per Dr. Spann's note, OK for diet, pain control, OK for discharge. Plan for stent removal in the next couple of weeks with Dr. April Tracy. Venous duplex of RLE was ordered as patient did experience right calf pain yesterday. Results showed: Acute occlusive deep vein thrombosis in the right gastrocnemius and posterior tibial veins. Acute occlusive superficial vein thrombosis in the thigh region of the right great saphenous vein and in the right small saphenous vein. Discussed with General Surgery, shawn for anticoagulation therapy. Discussed with Dr. Olegario hC. Patient was initiated on Apixaban 10 mg [...] Your Medications These medications were sent to [facility] [address] [place] [id number] Hours: Wednesday to Wednesday 10 am to 6 pm apixaban 5 MG tablet DIET: Adult diet Regular ACTIVITY: No restriction. COMPLEXITY OF FOLLOW UP: [] Moderate Complexity: follow up within 7-14 calendar days (06268) [x] Severe Complexity: follow up within 7 calendar days (93746) FOLLOW UP TESTING, PENDING RESULTS OR REFERRALS AT TRANSITIONAL CARE VISIT: [] Yes [x] No PENDING STUDIES: none DISPOSITION: Home FACILITY/HOME CARE AGENCY NAME: n/a Follow up with Dante Gurrola [id number] [facility] [id number] Zara Spann DO [address] [place] [address] [address] [facility] [address] Follow up on 09/28/2024 YOU HAVE AN [...] SIGNED: BARRIE Coleman CNP 08/25/2024, 2:06 PM CONSULT Observed: 08/25/2024 12:42 PM Status: COMPLETED Source: [facility] Attestation signed by Zara Spann DO at 09/23/2024 11:08 AM Discussed with the residents over the phone. Patient with left lower quadrant pain. CT scan without any evidence of acute abnormalities. Patient feels safe to go home. Discharge planning. Department of General Surgery Surgical Service - Surg 4 Resident Consult Note 08/25/2024 CHIEF COMPLAINT: Chief Complaint Patient presents with Leg Pain Pt presents to ED for pain in right leg that started this afternoon. Fever Pt states he had fever of 101.5f today Shortness of Breath Pt has had SOB since earlier today, lightheadness, and has a hx of blood clots. Reason for Consult: HISTORY OF PRESENT ILLNESS: Laine Garcia is a 69 y.o. male with significant past medical history of mitral valve prolapse, PE, GERD s/p Basia, and gastric perforation s/p taken down of Basia with laparoscopic wedge resection 08/10/24 who presents with LLQ abdominal pain and shortness of breath. Surgery was consulted for evaluation. Patient states he went home after his follow up appointment in clinic yesterday and felt fine the rest of the day. 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 He denies any nausea, vomiting, chest pain, or diarrhea. He reported he last had a BM yesterday AM and it was normal. No recent sick contacts. On evaluation patient was AFVSS. Labs reviewed significant for: WBC 5.9, Hgb 10.7, UA WNL. Imaging demonstrated no evidence of PE and expected post surgical changes in the abdomen. Medical History[1] Surgical History[2] Medications Prior to Admission: Medications Ordered Prior to Encounter[3] Allergies: Penicillins Social History[4] Family History[5] REVIEW OF SYSTEMS: Review of Systems Constitutional: Positive for fever. Negative for chills. HENT: Negative for sore throat and trouble swallowing. Respiratory: Positive for shortness of breath. Negative for wheezing. Cardiovascular: Negative for chest pain and palpitations. Gastrointestinal: Positive for abdominal pain. Negative for nausea and vomiting. Genitourinary: Negative for difficulty urinating, dysuria and flank pain. Musculoskeletal: Negative for arthralgias and myalgias. Skin: Negative for color change and wound. Neurological: Negative for dizziness and syncope. Psychiatric/Behavioral: Negative for confusion and hallucinations. PHYSICAL EXAM: Vitals: 08/25/24 0716 BP: 129/76 Pulse: 71 Resp: 16 Temp: 36.6 ?C (97.8 ?F) SpO2: 97% No intake/output data recorded. CONSTITUTIONAL: awake, alert, cooperative, no apparent distress NECK: Supple, symmetrical, trachea midline, no adenopathy LUNGS: No increased work of breathing, good air exchange CARDIOVASCULAR: Regular rate and rhythm ABDOMEN: Soft, non-distended, no rebound, no guarding, no masses palpated, well-healed laparoscopic incisions, mildly tender to deep palpation of LLQ CHEST: no masses palpated, no axillary or supraclavicular adenopathy GENITAL/URINARY: Not examined MUSCULOSKELETAL: There is no redness, warmth, or swelling of the joints. Full range of motion noted. NEUROLOGIC: Awake, alert, oriented to name, place and time. SKIN: normal skin color, texture, no redness, warmth, or swelling DATA: CBC: Lab Results Component Value Date WBC 5.9 08/24/2024 RBC 3.68 (L) 08/24/2024 HGB 10.7 (L) 08/24/2024 HCT 33.0 (L) 08/24/2024 MCV 89.7 08/24/2024 MCH 29.1 08/24/2024 MCHC 32.4 08/24/2024 RDW 14.7 08/24/2024 PLT 365 08/24/2024 MPV 9.1 08/24/2024 BMP: Lab Results Component Value Date NA 135 (L) 08/24/2024 K 4.4 08/24/2024 CL 105 08/24/2024 CO2 20 (L) 08/24/2024 BUN 19 08/24/2024 CREATININE 0.79 08/24/2024 CALCIUM 8.7 (L) 08/24/2024 GLUCOSE 108 08/24/2024 Hepatic Function Panel: Lab Results Component Value Date ALKPHOS 75 08/25/2024 ALT 12 08/25/2024 AST 19 08/25/2024 PROT 5.3 (L) 08/25/2024 BILITOT 0.4 08/25/2024 BILIDIR 0.2 08/25/2024 PT/INR: Lab Results Component Value Date PROTIME 11.4 08/24/2024 INR 1.1 08/24/2024 Troponin: No results found for: TROPONINI LIPASE: Lab Results Component Value Date LIPASE 60 (H) 08/24/2024 IMAGING: CT abdomen pelvis wo IV contrast Narrative: Patient Name: LAINE GARCIA : 1955 Exam Date/Time: 08/25/2024 11:27 Procedure: CT ABDOMEN PELVIS WO IV CONTRAST Ordering Provider: DARDEN ALEXANDRA Reason For Exam: Abdominal pain, post-op EXAMINATION: CT ABDOMEN PELVIS WO IV CONTRAST CLINICAL HISTORY: Abdominal pain, post-op COMPARISON: 08/24/2024 TECHNIQUE: CT of the abdomen and pelvis without contrast. Dose reduction was employed with automated exposure control. FINDINGS: Included images of the lower thorax: No focal lung consolidation or pleural effusion. Hepatobiliary: Unchanged 1.8 cm liver cyst near the fissure for ligamentum teres. No other focal hepatic abnormalities. The gallbladder is contracted. Pancreas: Unremarkable Spleen: Unremarkable Adrenal Glands: Unremarkable Kidneys and ureters: No calculi or hydroureteronephrosis. Peripelvic and renal cortical cysts are present. There is a small amount of residual excreted contrast in the renal collecting systems and ureters from yesterday's CT. Abdominal vasculature: An IVC filter is present. GI tract: Stent in the distal stomach and proximal duodenum is unchanged in position and again contains fluid. Previous surgical repair for gastric perforation with suture material along the posterior fundus. There is no evidence of bowel obstruction or perforation. Peritoneum and retroperitoneum: No free fluid or free air is noted. Lymph Nodes: No abdominal lymphadenopathy is evident. Pelvis: The urinary bladder is opacified by contrast without intraluminal filling defects. The prostate gland is enlarged and there is mild circumferential bladder wall thickening. Visualized musculoskeletal structures: Diffuse degenerative disc changes in the spine. No acute fracture or destructive osseous lesions. Mild anterolisthesis of L4-5 retrolisthesis at L2-3. Impression: No acute process. Stable appearance of the abdomen since yesterday's study. Report Dictated on Electronically Signed By: Damien Aguiar MD Electronically Signed Date/Time: 08/25/2024 11:52 AM EDT ECG 12 lead Sinus rhythm Minimal ST depression, inferior leads Compared to ECG 08/09/24 No significant change Electronically Signed On 08-25-2024 06:30:05 EDT by Joe Machado ASSESSMENT AND PLAN: This is a 69 y.o. male with LLQ pain - No acute surgical intervention - Patient's symptoms resolved/resolving, imaging without acute processes - Discussed self-regulating diet and monitoring BMs - Ok for dc from surgical perspective Patient discussed with attending, Dr. Spann. Jaylyn Moore MD General Surgery PGY-2 08/25/24 12:42 PM This note may have been dictated using [employer] Edition 2.6 and/or [employer] Voice Recognition Feature. The document was proofread; however, unrecognized voice recognition pad extractor tender errors may be present. [1] Past Medical History: Diagnosis Date MVP (mitral valve prolapse) Pulmonary embolism (HCC) [2] Past Surgical History: Procedure Laterality Date HERNIA REPAIR OTHER SURGICAL HISTORY N/A 08/10/2024 APAROSCOPY, DIAGNOSTIC, LYSIS OF ADHESIONS, EGD SHOULDER SURGERY [3] Current Facility-Administered Medications Medication Dose Route Frequency Provider Last Rate Last Admin acetaminophen (Tylenol) tablet 650 mg 650 mg Oral q6h PRN Lissette Anne NP Or acetaminophen (Tylenol) suppository 650 mg 650 mg Rectal q6h PRN Lissette Anne NP ondansetron ODT (Zofran-ODT) disintegrating tablet 4 mg 4 mg Oral q8h PRN Lissette Anne NP Or ondansetron (Zofran) injection 4 mg 4 mg IntraVENous q6h PRN Lissette Anne NP [4] Social History Socioeconomic History Marital status: Tobacco Use Smoking status: Never Smokeless tobacco: Never Vaping Use Vaping status: Never Used Substance and Sexual Activity Alcohol use: Yes Alcohol/week: 2.0 standard drinks of alcohol Types: 2 Glasses of wine per week Drug use: Never Social Drivers of Health Food Insecurity: No Food Insecurity (08/12/2024) Hunger Vital Sign Worried About Running Out of Food in the Last Year: Never true Ran Out of Food in the Last Year: Never true Transportation Needs: No Transportation Needs (08/25/2024) PRAPARE - Transportation Lack of Transportation (Medical): No Lack of Transportation (Non-Medical): No Intimate Partner Violence: Not At Risk (08/25/2024) Humiliation, Afraid, Rape, and Kick questionnaire Fear of Current or Ex-Partner: No Emotionally Abused: No Physically Abused: No Sexually Abused: No Housing Stability: Low Risk (08/25/2024) Housing Stability Vital Sign Unable to Pay for Housing in the Last Year: No Number of Times Moved in the Last Year: 0 Homeless in the Last Year: No [5] No family history on file. CT ABDOMEN PELVIS WO IV CONTRAST Observed: 08/25/2024 11:52 AM Status: F Source: [facility] Patient Name: LAINE GARCIA : 1955 Exam Date/Time: 08/25/2024 11:27 Procedure: CT ABDOMEN PELVIS WO IV CONTRAST Ordering Provider: DARDEN ALEXANDRA Reason For Exam: Abdominal pain, post-op EXAMINATION: CT ABDOMEN PELVIS WO IV CONTRAST CLINICAL HISTORY: Abdominal pain, post-op COMPARISON: 08/24/2024 TECHNIQUE: CT of the abdomen and pelvis without contrast. Dose reduction was employed with automated exposure control. FINDINGS: Included images of the lower thorax: No focal lung consolidation or pleural effusion. Hepatobiliary: Unchanged 1.8 cm liver cyst near the fissure for ligamentum teres. No other focal hepatic abnormalities. The gallbladder is contracted. Pancreas: Unremarkable Spleen: Unremarkable Adrenal Glands: Unremarkable Kidneys and ureters: No calculi or hydroureteronephrosis. Peripelvic and renal cortical cysts are present. There is a small amount of residual excreted contrast in the renal collecting systems and ureters from yesterday's CT. Abdominal vasculature: An IVC filter is present. GI tract: Stent in the distal stomach and proximal duodenum is unchanged in position and again contains fluid. Previous surgical repair for gastric perforation with suture material along the posterior fundus. There is no evidence of bowel obstruction or perforation. Peritoneum and retroperitoneum: No free fluid or free air is noted. Lymph Nodes: No abdominal lymphadenopathy is evident. Pelvis: The urinary bladder is opacified by contrast without intraluminal filling defects. The prostate gland is enlarged and there is mild circumferential bladder wall thickening. Visualized musculoskeletal structures: Diffuse degenerative disc changes in the spine. No acute fracture or destructive osseous lesions. Mild anterolisthesis of L4-5 retrolisthesis at L2-3. IMPRESSION: No acute process. Stable appearance of the abdomen since yesterday's study. Report Dictated on Electronically Signed By: Damien Aguiar MD Electronically Signed Date/Time: 08/25/2024 11:52 AM EDT 30 Observed: 08/25/2024 8:10 AM Status: COMPLETED Source: [facility] Problem: Pain - Adult Goal: Verbalizes/displays adequate comfort level or baseline comfort level Outcome: ProgressingFlowsheets Taken 08/25/2024 1500 Verbalizes/displays adequate comfort level or baseline comfort level: Encourage patient to monitor pain and request assistance Taken 08/25/2024 1110 Verbalizes/displays adequate comfort level or baseline comfort level: Encourage patient to monitor pain and request assistance Taken 08/25/2024 0810 Verbalizes/displays adequate comfort level or baseline comfort level: Encourage patient to monitor pain and request assistance Taken 08/25/2024 0710 Verbalizes/displays adequate comfort level or baseline comfort level: Encourage patient to monitor pain and request assistance Problem: Safety - Adult Goal: Free from fall injury Outcome: ProgressingFlowsheets Taken 08/25/2024 1500 Free from fall injury: Instruct family/caregiver on patient safety Taken 08/25/2024 1110 Free from fall injury: Instruct family/caregiver on patient safety Taken 08/25/2024 0810 Free from fall injury: Instruct family/caregiver on patient safety Problem: Discharge Planning Goal: Discharge to home or other facility with appropriate resources Outcome: ProgressingProblem: Chronic Conditions and Co-morbidities Goal: Patient's chronic conditions and co-morbidity symptoms are monitored and maintained or improved Outcome: Progressing 36 Observed: 08/25/2024 7:55 AM Status: COMPLETED Source: [email or web address] Patient currently in the [facility] [phone] Observed: 08/25/2024 7:49 AM Status: COMPLETED Source: [facility] 08/25/24 0748 Rapid Rounds Attendance Restaurant Host Planned Discharge Disposition Home Today we still await Symptomatic control Abdominal pain ,no pain meds requested by pt. . Pending US of lower extremity. Possible DC to home today. TCC to follow. ING NOTE Observed: 08/25/2024 7:10 AM Status: COMPLETED Source: [facility] Pt denies pain and discomfor t at this time Pt voiced 0 issues and or concerns at this time Pt noted to have several family members at bedside at this time Pt call light and personal items at this time Safety maintained 0810-Pt denies pain and discomfort at this time Pt voiced 0 issues and or concerns at this time 1110-Pt denies pain and discomfort at this time Pt voiced 0 issues and or concerns at this time 1120-pt off unit for imagining 1134-pt returned from imagining 1335-pt off unit for testing at this time 1423-Pt returned at this time Per STRICKLER ATTENDANT pt noted to have Cam DVTs 1500-Pt denies pain and discomfort at this time Pt voiced 0 issues and or concerns at this time 1540-pt educated on eliquis 1645-dc instructions given at this time Pt educated on the importance of taking eliquis Meds to beds delivered meds PIV removed by tech 1658-pt taken out via wheelchair ECG 12-LEAD Observed: 08/25/2024 6:30 AM Status: F Source: [facility] [place] [facility] IMPRESSION: Sinus rhythm Minimal ST depression, inferior leads Compared to ECG 08/09/24 No significant change Electronically Signed On 08-25-2024 06:30:05 EDT by Joe Machado PSA TOTAL (DIAGNOSTIC POST-PROSTATECTOMY) Collected: 08/25/2024 4:02 AM Status: F Source: [facility] TYPE CODE TESTS RESULT OUT OF RANGE REFERENCE UNITS LAB 5990376 PROSTATE SPECIFIC AG TOTAL 3.718 High <=0.200 ng/mL Result Comment: ORDER COMMEN TS: Testing performed on the [employer] Mant[employer] I using a two-step chemiluminescent microparticle immunoassay method. Results obtained by different methods should not be used interchangeably. A prostate specific antigen of >0.2 ng/mL is considered as initial evidence of biochemical recurrence following radical prostatectomy. Performed By: #### [id number] #### Board Catcher: ALESSIA WHARTON ([id number]) [facility] ([facility]) [address] [place] [address] 30 Observed: 08/25/2024 3:55 AM Status: COMPLETED Source: [facility] Problem: Pain - Adult Goal: Verbalizes/displays adequate comfort level or baseline comfort level Outcome: ProgressingProblem: Safety - Adult Goal: Free from fall injury Outcome: ProgressingProblem: Discharge Planning Goal: Discharge to home or other facility with appropriate resources Outcome: ProgressingProblem: Chronic Conditions and Co-morbidities Goal: Patient's chronic conditions and co-morbidity symptoms are monitored and maintained or improved Outcome: Progressing HISTORY AND PHYSICAL NOTE Observed: 08/04 3:42 AM Status: COMPLETED Source: [facility] CDU History and Physical Admit Date: 08/24/2024 PCP: Dante Gurrola CHIEF [...] (*) LIPASE - Abnormal LIPASE 60 (*) COMPLETE URINALYSIS WITH REFLEX TO CULTURE - Abnormal Color, Urine Colorless Clarity, Urine Clear pH, Urine 5.5 Leukocytes, Urine Negative Nitrite, Urine Negative Protein, Urine Negative Glucose, Urine Normal Bilirubin, Urine Negative Ketones, Urine Negative Urobilinogen, Urine Normal Blood, Urine Negative SPECIFIC GRAVITY OF URINE (NUMERIC) >1.030 (*) Narrative: A specimen with <=10 WBC is not consistent with inflammation. This specimen will not reflex to a urine culture. NT PRO BNP - Normal NT PRO BNP 67 HIGH SENSITIVITY TROPONIN, SERIAL BASELINE - Normal Troponin HS Serial Baseline 4 PROTHROMBIN TIME - Normal PROTHROMBIN TIME 11.4 INR 1.1 HIGH SENSITIVITY TROPONIN, SERIAL, SECOND TEST - Normal 2h Troponin HS (Serial 2nd Troponin) 5 RADIOLOGY: CTA chest angiogram w and/or wo IV contrast Final Result No acute intrathoracic process. No pulmonary artery embolus. Report Dictated on Electronically Signed By: Sammi Toro MD Electronically Signed Date/Time: 08/24/2024 11:[address] abdomen pelvis w contrast Final Result 1. No free air and no free fluid. Gastric perforation repair 08/10/2024. Stable appearance of the gastroduodenal stent with intraluminal fluid and air (stent placed for a bleeding duodenal ulcer). 2. Haziness of bilateral renal parenchyma may be related to pyelonephritis, correlate with clinical exam. Mild distention of the left inferior renal collecting system. Bilateral parapelvic cysts, left greater than right. No obstructing ureteral calculus. 3. IVC filter. 4. Prostate gland enlargement, correlate with PSA. Report Dictated on Electronically Signed By: Sammi Toro MD Electronically Signed Date/Time: 08/24/2024 11:52 PM EDT Vascular US lower extremity venous duplex right (Results Pending) Medical decision making: The patient is placed in the CDU for further evaluation after initial ED workup, discussed their case with ED provider and agree with plan for observation. Independent review of ED workup: as above External records reviewed: previous encounter, notes, labs, imaging. EKG Interpretation: Please see [facility] or ED attending documentation for official EKG interpretation. Clinical Impression: 1.) Abdominal pain Assessment/Plan : - serial abdominal exams - pain control - PO challenge - repeat imaging if pain worsens, consider surgery consult - anticipate discharge today Due to the review of above complex data and the acute illness and/or undiagnosed new problem which may pose significant morbidity, The complexity of this case is: Omar Anne NP CDU Advanced Practice Provider [facility] [employer] (Comment: Please note this report has been produced using speech recognition software and may contain errors related to that system including errors in grammar, punctuation, and spelling, as well as words and phrases that may be inappropriate. If there are any questions or concerns please feel free to contact the dictating provider for clarification.) [1] Past Medical History: Diagnosis Date MVP (mitral valve prolapse) Pulmonary embolism (HCC) [2] Past Surgical History: Procedure Laterality Date HERNIA REPAIR OTHER SURGICAL HISTORY N/A 08/10/2024 APAROSCOPY, DIAGNOSTIC, LYSIS OF ADHESIONS, EGD SHOULDER SURGERY [3] No family history on file. [4] No current facility-administered medications for this encounter. [5] Allergies Allergen Reactions Penicillins ED NURSING NOTE Observed: 08/25/2024 3:11 AM Status: COMPLETED [facility] Pt transport has been reques vimal HEPATIC FUNCTION PANEL Collected: 08/25/2024 1:44 AM Status: F Source: [facility] TYPE CODE TESTS RESULT OUT OF RANGE REFERENCE UNITS LAB 7851520 BILIRUBIN, TOTAL 0.4 <1.2 mg/dL LAB 3296513 BILIRUBIN, DIRECT 0.2 <0.5 mg/dL LAB 2413046 ALKALINE PHOSPHATASE 75 40-150 U/L LAB 4875436 AST (SGOT) 19 <34 U/L LAB 2400610 ALT 12 <40 U/L LAB 2133196 ALBUMIN 2.6 Low 3.4-4.8 g/dL LAB 5161228 TOTAL PROTEIN 5.3 Low 6.4-8.3 g/dL Result Comment: Serum protei n values are higher than plasma values. Samples from recumbent persons are lower by up to 0.5 g/dL as compared to ambulatory persons. After 60 years values are lower by up to 0.2 g/dL. Performed By: #### [id number], LA [id number] #### Board Catcher: NICOLA HOWARD ([id number]) [facility] ([facility]) [address] [place] [address] HIGH SENSITIVITY TROPONIN, SERIAL, SECOND TEST Collected: 08/25/2024 1:44 AM Status: F Source: [facility] TYPE CODE TESTS RESULT OUT OF RANGE REFERENCE UNITS LAB 534 2H TROPONIN HS (SERIAL 2ND TROPONIN) 5 <=35 ng/L Result Comment: 2h troponin (2nd troponin) samples collected between 1h 40 min and 2h and 20 min of the baseline collection time can be utilized to interpret delta troponins as per [facility] algorithms. Samples collected outside this timeframe need to be interpreted clinically. Rising or falling troponin delta below 2 ng/L as compared to baseline value suggests that acute cardiac injury is unlikely. Performed By: #### [id number], LA [id number] #### Board Catcher: NICOLA HOWARD ([id number]) [facility] ([facility]) [address] [place] [address] COMPLETE URINALYSIS WITH REFLEX TO CULTURE Collected: 08/25/2024 1:39 AM Status: F Source: [facility] TYPE CODE TESTS RESULT OUT OF RANGE REFERENCE UNITS LAB 6966038 COLOR OF URINE Colorless Lt. Yellow LAB 2134969 CLARITY OF URINE Clear Clear LAB 7706385 PH OF URINE 5.5 5.0-8.0 pH LAB 8078065 LEUKOCYTE ESTERASE PRESENCE IN URINE BY TEST STRIP Negative Negative Fawn/uL LAB 3297741 NITRITE PRESENCE IN URINE Negative Negative LAB 4746040 PROTEIN (MG/DL) IN URINE BY TEST STRIP Negative Negative mg/dL LAB 1406135 GLUCOSE (MG/DL) IN URINE Normal Normal (<70) mg/dL LAB 4200157 BILIRUBIN, TOTAL PRESENCE IN URINE Negative Negative mg/dL LAB 548 KETONES (MG/DL) IN URINE Negative Negative mg/dL LAB 19 UROBILINOGEN (MG/DL) IN URINE Normal Normal (0-1) mg/dL LAB 549 HEMOGLOBIN PRESENCE IN URINE Negative Negative mg/dL LAB 1199 SPECIFIC GRAVITY OF URINE (NUMERIC) >1.030 High 1.005-1.030 Result Comment: ORDER COMMEN TS: A specimen with <=10 WBC is not consistent with inflammation. This specimen will not reflex to a urine culture. Performed By: #### [id number] #### Board Catcher: NICOLA HOWARD ([id number]) [facility] ([facility]) [address] [place] [address] CT ABDOMEN PELVIS W CONTRAST Observed: 0 08/24/2024 11:52 PM Status: F Source: [facility] Patient Name: LAINE GARCIA : 1955 Exam Date/Time: 08/24/2024 23:28 Procedure: CT ABDOMEN PELVIS W CONTRAST Ordering Provider: JAMES JACOB Reason For Exam: Abdominal pain, acute, nonlocalized; Abdominal pain, post-op CT ABDOMEN AND PELVIS Indication: Abdominal pain Scan Parameters: Multiple axial CT images were obtained of the abdomen and pelvis. Coronal and sagittal reconstructions were reviewed as well. ALARA protocol. Dose reduction was employed with automated exposure control. Contrast: 75 mL Isovue-370 IV contrast; no GI contrast Comparison: 08/11/2024 FINDINGS: The lung bases are clear. The heart is not enlarged. Atherosclerotic calcifications are present along the aorta and branches. An IVC filter is present. There is no acute osseous process. There is loss of disc space height at L5-S1. There is mild curvature of the thoracolumbar spine. There is a small left hepatic lobe 11 mm cyst. The gallbladder, pancreas, spleen, and adrenal glands are within normal limits. Bilateral parapelvic cysts are present with possible distention of the left inferior renal collecting system. A right renal superior pole cyst requires no follow-up. Mild perinephric stranding is present. There is mild bilateral renal haziness. There is no obstructing ureteral calculus. The bladder contour is within normal limits. The prostate gland measures 4.7 cm in greatest transverse axial dimension, correlate with PSA. The appendix is normal with an appendicolith present. There is a small hiatal hernia. There is a stent involving the distal stomach and proximal duodenum with intraluminal fluid and air (stent placed for bleeding duodenal ulcer). Postsurgical changes along the gastric wall at the site of prior gastric perforation (surgery 08/10/2024). There is no bowel obstruction. There is no lymphadenopathy. IMPRESSION: 1. No free air and no free fluid. Gastric perforation repair 08/10/2024. Stable appearance of the gastroduodenal stent with intraluminal fluid and air (stent placed for a bleeding duodenal ulcer). 2. Haziness of bilateral renal parenchyma may be related to pyelonephritis, correlate with clinical exam. Mild distention of the left inferior renal collecting system. Bilateral parapelvic cysts, left greater than right. No obstructing ureteral calculus. 3. IVC filter. 4. Prostate gland enlargement, correlate with PSA. Report Dictated on Electronically Signed By: Sammi Toro MD Electronically Signed Date/Time: 08/24/2024 11:[address] CHEST ANGIOGRAM W AND/OR WO IV CONTRAST Observed: 08/24/2024 11:39 PM Status: F Source: [facility] Patient Name: LAINE GARCIA : 1955 [facility]#: [id number] Exam Date/Time: 08/24/2024 23:28 Procedure: CT CHEST ANGIOGRAM W AND/OR WO IV CONTRAST Ordering Provider: JAMES JACOB Reason For Exam: Pulmonary embolism (PE) suspected, high prob INDICATION: Abdominal pain. Postop. Lysis of adhesions. Laparoscopic wedge resection of stomach. Chills.. Scan parameters: Multiple axial 1mm CT images of the chest were acquired with 3mm coronal and sagittal reconstructions. Dose reduction was employed with automated exposure control. Additional reconstructed MIP images provided with 3-D postprocessing. CONTRAST: 75 mL of Isovue-370 IV contrast COMPARISON: CT abdomen and pelvis 08/11/2024 FINDINGS: Pulmonary arteries: There is no main, lobar, or segmental pulmonary artery embolus. Evaluation of the subsegmental and distal branches is limited due to mixing of contrast. Lungs: The lungs are clear. Interval resolution of bilateral pleural effusions. Mediastinum and Anais: There is no mediastinal or hilar adenopathy. Central airway: The central airway is patent. Thyroid and Esophagus: The thyroid gland contour is within normal limits. The esophagus is decompressed. Heart and Great Vessels: The heart is not enlarged. There is no pericardial effusion. There is no right heart strain. There are no significant coronary artery atherosclerotic calcifications. A few aorta atherosclerotic calcifications are present. Osseous structures: Mild multilevel osseous endplate spurring is present. No acute osseous fracture. Stirum sutures right humeral head. Axilla and Soft tissue: There is no axillary adenopathy. Upper abdomen: Refer to same day CT abdomen and pelvis for findings of the upper abdomen. IMPRESSION: No acute intrathoracic process. No pulmonary artery embolus. Report Dictated on Electronically Signed By: Sammi Toro MD Electronically Signed Date/Time: 08/24/2024 11:39 PM EDT CBC WITH AUTO DIFFERENTIAL Collected: 08/24/2024 11:0 9 PM Status: F Source: [facility] TYPE CODE TESTS RESULT OUT OF RANGE REFERENCE UNITS LAB 2548660 WBC 5.9 3.6-10.7 10*3/uL LAB 5895583 RBC 3.68 Low 4.40-5.90 10*6/uL LAB 1621617 HEMOGLOBIN 10.7 Low 13.0-18.0 g/dL LAB 7132137 HEMATOCRIT 33.0 Low 40.0-52.0 % LAB 5621331 MCV 89.7 77.0-99.0 fL LAB 8038695 MCH 29.1 26.0-34.0 pg LAB 7181766 MCHC 32.4 30.5-36.0 % LAB 2323364 RDW 14.7 11.5-15.0 % LAB 8886554 PLATELET COUNT 365 140-440 10*3/uL LAB 0941502 MPV 9.1 9.0-12.7 fL Performed By: #### [id number], [id number] #### Board Catcher: NICOLA HOWARD ([id number]) [facility] ([address] MANUAL DIFFERENTIAL (CELLAVISION) Collected: 08/24/2024 11:09 PM Status: F Source: [facility] TYPE CODE TESTS RESULT OUT OF RANGE REFERENCE UNITS LAB 2944080 RBC MORPHOLOGY I N BLOOD abnormal LAB 9387284 POIKILOCYTOSIS (PRESENCE) IN BLOOD BY LIGHT MICROSCOPY Slight Abnormal (none) LAB 3813589 OVALOCYTES PRESENCE IN BLOOD BY LIGHT MICROSCOPY Slight Abnormal (none) LAB 8165761 ACANTHOCYTES (PRESENCE) IN BLOOD BY LIGHT MICROSCOPY Slight Abnormal (none) LAB 7536858 SEGMENTED NEUTROPHILS/100 LEUKOCYTES-CE 86 High 38-82 % LAB 2319146 NEUTROPHILS BAND FORM/100 LEUKOCYTES IN BLOOD-CELLAVISI 2 High <=0 % LAB 4588147 LYMPHOCYTES/100 LEUKOCYTES IN BLOOD-CELLAVISION 7 Low 15-45 % LAB 1482445 MONOCYTES/100 LEUKOCYTES IN BLOOD-ARIAS 4 Low 5-13 % LAB 4109908 BASOPHILS/100 LEUKOCYTES IN BLOOD-CELLAVISION 1 0-2 % LAB 1232251 SEGMENTED NEUTROPHILS (10*3/UL) IN BLOOD-CELLAVISION 5.2 1.8-7.5 10*3/uL LAB 6611747 BANDS (10*3/UL) IN BLOOD-CELLAVISION 0.1 High <=0.0 10*3/uL LAB 1524211 LYMPHOCYTES (10*3/UL) IN BLOOD-CELLAVISION 0.4 Low 1.0-4.3 10*3/uL LAB 3707145 MONOCYTES (10*3/UL) IN BLOOD-CELLAVISION 0.2 0.0-0.9 10*3/uL LAB 7893000 BASOPHILS (10*3/UL) IN BLOOD-CELLAVISION 0.1 0.0-0.2 10*3/uL LAB 2817588 NEUTROPHILS TOTA L PER COUNTED LEUKOCYTES BY MANUAL COUNT 87 LAB 9376177 LYMPHOCYTES TOTA L PER COUNTED LEUKOCYTES BY MANUAL COUNT 7 LAB 1356313 MONOCYTES TOTAL PER COUNTED LEUKOCYTES BY MANUAL COUNT 4 LAB 9092757 EOSINOPHILS TOTA L PER COUNTED LEUKOCYTES BY MANUAL COUNT LAB 8962572 BASOPHILS TOTAL PER COUNTED LEUKOCYTES BY MANUAL COUNT 1 LAB 9042783 BAND NEUTROPHILS TOTAL PER COUNTED LEUKOCYTES BY MANUAL COUNT 2 LAB 111 METAMYELOCYTES TOTAL PER COUNTED LEUKOCYTES BY MANUAL COUNT LAB 1411 MYELOCYTES COUNTED BY MANUAL COUNT LAB 113 PROMYELOCYTES TOTAL PER COUNTED LEUKOCYTES BY MANUAL COUNT LAB 6531459 BLASTS TOTAL PER COUNTED LEUKOCYTES BY MANUAL COUNT LAB 115 VARIANT LYMPHOCYTES TOTAL PER COUNTED LEUKOCYTES BY MANUAL COUNT LAB 8645886 UNCLASSIFIED CELLS TOTAL PER COUNTED LEUKOCYTES BY MANUAL COUNT Performed By: #### [id number], [id number] #### Board Catcher: NICOLA HOWARD ([id number]) [address] PROTHROMBIN TIME Collected: 08/24/2024 11:09 PM Stat us: F Source: [facility] TYPE CODE TESTS RESULT OUT OF RANGE REFERENCE UNITS LAB 3961028 PROTHROMBIN TIME 11.4 9.0-12.0 s LAB 9697487 INR 1.1 0.9-1.1 Result Comment: Recommended Anticoagulant Therapy: SEE BELOW ----- INR of [...] to prevent Myocardial Infarction Performed By: #### [id number] ## ## Board Catcher: NICOLA HOWARD ([id number]) [facility] ([facility]) [address] [place] [address] COMPREHENSIVE METABOLIC PANEL Collected : 08/24/2024 11:09 PM Status: F Source: [facility] TYPE CODE TESTS RESULT OUT OF RANGE REFERENCE UNITS LAB 8899015 SODIUM 135 Low 136-145 mmol/L LAB 8705693 POTASSIUM 4.4 3.5-5.1 mmol/L Result Comment: Plasma potas sium values may be up to 0.5 mmol/L lower than serum values. LAB 0823348 CHLORIDE 105 98-107 mmol/L LAB 9519885 CARBON DIOXIDE 20 Low 23-31 mmol/L LAB [id number] ANION GAP (ROMAN, CALCULATED) 10 3-13 mmol/L LAB 5224057 UREA NITROGEN 19 9-23 mg/dL LAB 9302797 CREATININE 0.79 0.72-1.25 mg/dL LAB 6890339 GLUCOSE 108 82-115 mg/dL LAB 7459458 CALCIUM 8.7 Low 8.8-10.0 mg/dL LAB 6067072 AST (SGOT) 28 <34 U/L LAB 0486579 ALT 15 <40 U/L LAB 2269111 ALKALINE PHOSPHATASE 83 40-150 U/L LAB 4569036 ALBUMIN 2.9 Low 3.4-4.8 g/dL LAB 8482616 BILIRUBIN, TOTAL 0.4 <1.2 mg/dL LAB 5343727 TOTAL PROTEIN 6.4 6.4-8.3 g/dL LAB 4687966 GLOMERULAR FILTRATION RATE ML/MIN/1.73 SQ M.PREDICTED >90.0 >60.0 mL/min/1. 73m*2 Result Comment: Calculation based on the Chronic Kidney Disease Epidemiology Collaboration (CKD-EPI) equation refit without adjustment for race Performed By: #### [id number], L AB99, LAB17, [id number] #### Board Catcher: NICOLA HOWARD ([phone]) [facility] ([facility]) [address] [place] [address] HIGH SENSITIVITY TROPONIN, S ERIAL BASELINE Collected: 08/24/2024 11:09 PM Status: F Source: [facility] TYPE CODE TESTS RESULT OUT OF RANGE REFERENCE UNITS LAB 27357609 TROPONIN HS SERIAL BASELINE 4 <=35 ng/L Result Comment: In individua ls presenting with symptoms > 2h, a baseline troponin <= 5 ng/L suggests acute cardiac injury is unlikely and further serial testing is generally not indicated. Performed By: #### [id number], L AB99, LAB17, [id number] #### Board Catcher: NICOLA HOWARD ([id number]) [facility] ([facility]) [address] [place] [address] NT PRO BNP Collected: 5 11:09 PM Status: F Source: [facility] TYPE CODE TESTS RESULT OUT OF RANGE REFERENCE UNITS LAB 5254713 NT PRO BNP 67 <125 pg/mL Performed By: #### [id number], L AB99, LAB17, [id number] #### Board Catcher: NICOLA HOWARD ([id number]) [facility] ([facility]) [address] [place] [address] LIPASE Collected: 5 11:09 PM Status: F Source: [facility] TYPE CODE TESTS RESULT OUT OF RANGE REFERENCE UNITS LAB 5257935 LIPASE 60 High <55 U/L Performed By: #### [id number], L AB99, LAB17, [id number] #### Board Catcher: NICOLA HOWARD ([phone]) [facility] ([facility]) [address] [place] [address] ED PROVIDER NOTE Observed: 08/24/2024 10:32 PM Status: COMPLETED Source: [facility] Emergency Department [facility] EMERGENCY DEPT Patient: Laine Garcia : 1955 Date of Evaluation: 08/24/2024 ED Supervising Physician: Olegario Hills MD I personally evaluated Laine Garcia and [...] y.o. that presents to the emergency department with a complaint of some intermittent pain in the right lower extremity earlier today while sitting in his chair followed by some shortness of breath and mild chest pain and as well as a fever of 101.5 ?F. This is in the context of patient recently having emergency surgery for repair of a perforated gastric ulcer. Patient had surgery with Dr. Spann 15 days ago for laparoscopic wedge resection of the stomach, lysis of adhesions. Patient subsequently discharged 12 days ago. Had been doing well at home until today. Patient does have an IVC filter in place. Currently denies any pain in the right lower extremity. Is complaining of some pain in the lower abdomen as well as some dysuria. Focused exam: Awake, appears tired but in no acute distress. Normal weight. Skin is warm, dry, intact. Normal heart rate and heart sounds. Normal respiratory rate and effort. Abdomen is mildly tender to palpation diffusely but sharply tender to palpation in the left lower quadrant without rebound, guarding, or other palpable abnormalities. Surgical sites appear to be healing well. No CVA tenderness bilaterally. Extremities unremarkable. Lower extremity specifically without asymmetric swelling or edema. Negative Homans' sign. Brief ED course/MDM: Patient presents with abdominal pain, dysuria as described in the HPI with fever at home. This is in the context of recent emergency surgery for perforated gastric ulcer. Afebrile here in the ED. He does have some mild tenderness diffusely through the abdomen as I would expect postoperatively however he seems to have acute sharp tenderness to palpation in the left lower quadrant. No significant derangement appreciated on CBC, CMP, high-sensitivity troponin, BNP. Urinalysis without evidence of urinary tract infection. Hepatic panel unremarkable. Lipase is only slightly elevated at 60. Patient is low risk for pancreatitis. Given his recent surgery as well as the abdominal tenderness we did obtain a CT of the abdomen pelvis with IV contrast. Radiologist states that CT scan could be indicative of of pyelonephritis. Patient is complaining of some dysuria. Does not have any CVA tenderness on physical exam. No other acute abnormalities noted on CT. Given the patient's continued tenderness to palpation left lower quadrant with no clear etiology as well as reported fever at home patient will be admitted to the CDU for observation, serial abdominal exams, possible surgical consult in the a.m. Diagnostics interpreted by me: EKG(s) sinus rhythm with no ST elevation, depression, arrhythmia, ectopy, or abnormal intervals. CT scan(s) as detailed above I personally discussed the patient's management with other clinicians: Admitting team CDU KIN All diagnostic, treatment, and disposition decisions were made by myself in conjunction with the KIN. For all further details of the patient's [...] to contact the dictating provider for clarification.) Olegario Hills MD Acute Care [facility] Olegario Hills MD 08/25/24 0237 ED PROVIDER NOTE Observed: 08/24/2024 10:32 PM Status: COMPLETED [facility] Patient: Laine Garcia : 1955 Date of Evaluation: 08/24/2024 ED KIN Provider: Dano James PA-C EDcare was supervised by Dr. Hills who independently examined and evaluated the patient. Please see their attestation note for further details. Chief Complaint Chief Complaint Patient presents with Leg Pain Pt presents to ED for pain in right leg that started this afternoon. Fever Pt states he had fever of 101.5f today Shortness of Breath Pt has had SOB since earlier today, lightheadness, and has a hx of blood clots. ABDI Garcia is a 69 y.o. male who presents to the emergency department for shortness of breath, leg pain and a fever. Recently admitted for a duodenal perforation. Leg pain and chest pain started earlier today. Patient concern about blood clot. Denies any chest pain. Patient also having abdominal pain. Limitations to history: None Outside historians: EMR Past History Medical History[1] Surgical History[2] Social History[3] Medications/Allergies Current Discharge Medication List CONTINUE these medications which have NOT CHANGED Details Multiple Vitamins-Minerals (multivitamin with minerals) tablet Take 1 tablet by mouth daily. dicyclomine (Bentyl) 20 MG tablet Take 20 mg by mouth 3 times daily. docusate sodium (Colace) 100 MG capsule Take 100 mg by mouth 2 times daily. Allergies[4] Physical Exam BP 134/82 (BP Location: Right arm, Patient Position: Lying) Pulse 68 Temp 36.8 ?C (98.3 ?F) (Oral) Resp 16 Wt 75.6 kg (166 lb 11.2 oz) SpO2 97% BMI 23.25 kg/m? Physical Exam GENERAL APPEARANCE: Awake and alert. Cooperative. HEENT: Normocephalic. Atraumatic. No trismus. NECK: Supple. Trachea midline. CARDIO: Normal rate. Radial pulses symmetrical and palpable LUNGS: Respirations unlabored. CTAB. ABDOMEN: Soft. Non-distended. Mild diffuse abdominal tenderness. NEUROLOGICAL: No gross facial drooping. No obvious neurologic deficits. Moves all 4 extremities spontaneously. SCREENINGS D Labs: Results for orders placed or performed during the hospital encounter of 08/24/24 ECG 12 lead Collection Time: 08/24/24 10:43 PM Result Value Ref Range Heart Rate 82 bpm QRSD Interval 93 ms QT Interval 356 ms QTC Interval 416 ms P Independence 83 degrees QRS Independence -2 degrees T Wave Independence 2 degrees IL Interval 145 ms NT PRO BNP Collection Time: 08/24/24 11:09 PM Result Value Ref Range NT PRO BNP 67 <125 pg/mL Comprehensive metabolic panel Collection Time: 08/24/24 11:09 PM Result Value Ref Range SODIUM 135 (L) 136 - 145 mmol/L POTASSIUM 4.4 3.5 - 5.1 mmol/L CHLORIDE 105 98 - 107 mmol/L CARBON DIOXIDE 20 (L) 23 - 31 mmol/L ANION GAP 10 3 - 13 mmol/L UREA NITROGEN 19 9 - 23 mg/dL CREATININE 0.79 0.72 - 1.25 mg/dL GLUCOSE 108 82 - 115 mg/dL CALCIUM 8.7 (L) 8.8 - 10.0 mg/dL AST (SGOT) 28 <34 U/L ALT 15 <40 U/L ALKALINE PHOSPHATASE 83 40 - 150 U/L ALBUMIN 2.9 (L) 3.4 - 4.8 g/dL BILIRUBIN, TOTAL 0.4 <1.2 mg/dL TOTAL PROTEIN 6.4 6.4 - 8.3 g/dL eGFR >90.0 >60.0 mL/min/1.73m*2 Serial Troponin, High Sensitivity Collection Time: 08/24/24 11:09 PM Result Value Ref Range Troponin HS Serial Baseline 4 <=35 ng/L CBC auto differential Collection Time: 08/24/24 11:09 PM Result Value Ref Range Auto WBC 5.9 3.6 - 10.7 10*3/uL RBC 3.68 (L) 4.40 - 5.90 10*6/uL Hemoglobin 10.7 (L) 13.0 - 18.0 g/dL Hematocrit 33.0 (L) 40.0 - 52.0 % MCV 89.7 77.0 - 99.0 fL MCH 29.1 26.0 - 34.0 pg MCHC 32.4 30.5 - 36.0 % RDW 14.7 11.5 - 15.0 % Platelets 365 140 - 440 10*3/uL MPV 9.1 9.0 - 12.7 fL Protime-INR Collection Time: 08/24/24 11:09 PM Result Value Ref Range PROTHROMBIN TIME 11.4 9.0 - 12.0 s INR 1.1 0.9 - 1.1 MANUAL DIFFERENTIAL (CELLAVISION) Collection Time: 08/24/24 11:09 PM Result Value Ref Range RBC Morphology abnormal Poikilocytes Slight (A) (none) Ovalocytes Slight (A) (none) Acanthocytes Slight (A) (none) Neutrophils % 86 (H) 38 - 82 % Bands % 2 (H) <=0 % Lymphocytes % 7 (L) 15 - 45 % Monocytes % 4 (L) 5 - 13 % Basophils % 1 0 - 2 % Absolute Neutrophil Count 5.2 1.8 - 7.5 10*3/uL Bands Absolute 0.1 (H) <=0.0 10*3/uL Lymphocytes Absolute 0.4 (L) 1.0 - 4.3 10*3/uL Monocytes Absolute 0.2 0.0 - 0.9 10*3/uL Basophils Absolute 0.1 0.0 - 0.2 10*3/uL Neutrophils Manual 87 Lymphocytes Manual 7 Monocytes Manual 4 Eosinophils Manual Basophils Manual 1 Bands Manual 2 Metamyelocytes Manual Myelocytes Manual Promyelocytes Manual Blasts Manual Atypical Lymphocytes Manual Unclassified Cells, Manual Lipase Collection Time: 08/24/24 11:09 PM Result Value Ref Range LIPASE 60 (H) <55 U/L Urinalysis complete with reflex to Culture Collection Time: 08/25/24 1:39 AM Result Value Ref Range Color, Urine Colorless Lt. Yellow Clarity, Urine Clear Clear pH, Urine 5.5 5.0 - 8.0 pH Leukocytes, Urine Negative Negative Fawn/uL Nitrite, Urine Negative Negative Protein, Urine Negative Negative mg/dL Glucose, Urine Normal Normal (<70) mg/dL Bilirubin, Urine Negative Negative mg/dL Ketones, Urine Negative Negative mg/dL Urobilinogen, Urine Normal Normal (0-1) mg/dL Blood, Urine Negative Negative mg/dL SPECIFIC GRAVITY OF URINE (NUMERIC) >1.030 (H) 1.005 - 1.030 Troponin, High Sensitivity, Serial, Second Test Collection Time: 08/25/24 1:44 AM Result Value Ref Range 2h Troponin HS (Serial 2nd Troponin) 5 <=35 ng/L Hepatic function panel Collection Time: 08/25/24 1:44 AM Result Value Ref Range BILIRUBIN, TOTAL 0.4 <1.2 mg/dL BILIRUBIN, DIRECT 0.2 <0.5 mg/dL ALKALINE PHOSPHATASE 75 40 - 150 U/L AST (SGOT) 19 <34 U/L ALT 12 <40 U/L ALBUMIN 2.6 (L) 3.4 - 4.8 g/dL TOTAL PROTEIN 5.3 (L) 6.4 - 8.3 g/dL Radiographs: CTA chest angiogram w and/or wo IV contrast Final Result No acute intrathoracic process. No pulmonary artery embolus. Report Dictated on Electronically Signed By: Sammi Toro MD Electronically Signed Date/Time: 08/24/2024 11:[address] abdomen pelvis w contrast Final Result 1. No free air and no free fluid. Gastric perforation repair 08/10/2024. Stable appearance of the gastroduodenal stent with intraluminal fluid and air (stent placed for a bleeding duodenal ulcer). 2. Haziness of bilateral renal parenchyma may be related to pyelonephritis, correlate with clinical exam. Mild distention of the left inferior renal collecting system. Bilateral parapelvic cysts, left greater than right. No obstructing ureteral calculus. 3. IVC filter. 4. Prostate gland enlargement, correlate with PSA. Report Dictated on Electronically Signed By: Sammi Toro MD Electronically Signed Date/Time: 08/24/2024 11:52 PM EDT Vascular US lower extremity venous duplex right (Results Pending) : EKG: All EKG's areinterpreted by the Emergency Department Physician in the absence of a dye line operator. see their note for interpretation of EKG. EMERGENCY DEPARTMENT COURSE and DIFFERENTIAL DIAGNOSIS/MDM: External Records Review: Reviewed Care Everywhere Social Determinants of Health: none. Laine Garcia is a 69 y.o. male who presented to the emergency department for chest pain, abdominal pain and shortness of breath. Recently admitted for duodenal perforation. Differential diagnosis included PE, DVT, ACS, perforated bowel. Our workup consisted of ordering/reviewing CBC, BMP, BNP, troponin, EKG, hepatic function panel, lipase, CTA chest, CT abdomen/pelvis and showed no leukocytosis. Lipase 60. Troponin normal. CTA chest showed no PE. CT abdomen/pelvis no perforation. Patient will be admitted for serial abdominal exams. Final Diagnosis: 1. Left lower quadrant abdominal pain 2. Shortness of breath 3. Pain of right lower extremity Medications acetaminophen (Tylenol) tablet 650 mg (has no administration in time range) Or acetaminophen (Tylenol) suppository 650 mg (has no administration in time range) ondansetron ODT (Zofran-ODT) disintegrating tablet 4 mg (has no administration in time range) Or ondansetron (Zofran) injection 4 mg (has no administration in time range) iopamidol (Isovue-370) 76 % injection 75 mL (75 mL IntraVENous Given 08/24/24 2770) CONSULTS: None PROCEDURES: Unless otherwise noted below, none Procedures DISPOSITION/PLAN Observation 08/25/2024 02:36:31 AM PATIENT REFERRED TO: Dante Gurrola [id number] [facility] [address] DISCHARGE MEDICATIONS: Current Discharge Medication List @[facility]([id number]:LAST:1)@ (Please note: Portions of this note were completed with a voice recognition program. Efforts were made to edit the dictations but occasionally words and phrases are mis-transcribed.) Form [id number] Dano James PA-C [facility] [employer] [1] Past Medical History: Diagnosis Date MVP (mitral valve prolapse) Pulmonary embolism (HCC) [2] Past Surgical History: Procedure Laterality Date HERNIA REPAIR OTHER SURGICAL HISTORY N/A 08/10/2024 APAROSCOPY, DIAGNOSTIC, LYSIS OF ADHESIONS, EGD SHOULDER SURGERY [3] Social History Socioeconomic History Marital status: Tobacco Use Smoking status: Never Smokeless tobacco: Never Vaping Use Vaping status: Never Used Substance and Sexual Activity Alcohol use: Yes Alcohol/week: 2.0 standard drinks of alcohol Types: 2 Glasses of wine per week Drug use: Never Social Drivers of Health Food Insecurity: No Food Insecurity (08/12/2024) Hunger Vital Sign Worried About Running Out of Food in the Last Year: Never true Ran Out of Food in the Last Year: Never true Transportation Needs: No Transportation Needs (08/25/2024) PRAPARE - Transportation Lack of Transportation (Medical): No Lack of Transportation (Non-Medical): No Intimate Partner Violence: Not At Risk (08/25/2024) Humiliation, Afraid, Rape, and Kick questionnaire Fear of Current or Ex-Partner: No Emotionally Abused: No Physically Abused: No Sexually Abused: No Housing Stability: Low Risk (08/25/2024) Housing Stability Vital Sign Unable to Pay for Housing in the Last Year: No Number of Times Moved in the Last Year: 0 Homeless in the Last Year: No [4] Allergies Allergen Reactions Penicillins Dano James PA-C 08/25/24 0413 36 Observed: 08/24/2024 8:07 PM Status: COMPLETED Source: [facility] S: Patient spoke with WIN cates regarding post op B: Onset of symptoms/concern [...] (38.0 C) Protocols used: Post-Op Symptoms and [id number] PROGRESS NOTE Observed: 08/24/2024 9:45 AM Status: COMPLETED Source: [facility] Advanced Laparoscopic Surgery Patient Name: Laine Garcia [...] Cuff Size: Adult) Pulse 72 Temp 36.5 ?C (97.7 ?F) (Temporal) Ht 5' 11 (1.803 m) Wt 169 lb 6.4 oz (76.8 kg) SpO2 99% BMI 23.63 kg/m? Physical Exam: The wounds are healing well. [...] performed. Had a long discussion with Dr. Carbajal regarding removal of the duodenal stent. She [...] No current facility-administered medications for this visit. OFFICE VISIT Observed: 08/24/2024 9:45 AM Status: COMPLETED Source: [facility] [id number] Laine Garcia 1954 M Date Provider Department Center 08/24/2024 [id number], MARK [facility] ALS None No family history on file Level of Service:22739 [place] POSTOP FOLLOW UP VISIT RELATED TO ORIGINAL PX Reason for Visit and Comments: Post-op [483] - ALS P/O DIAG LAP, LAP WEDGE RESECTION OF STOMACH, EGD ON 08/10/2024 36 Observed: 08/17/2024 12:31 PM Status: COMPLETED Source: [facility] Spoke to Dr. Spann. Spoke to Dr. [...] 08/24. No further questions at this time. 36 Observed: 08/17/2024 12:18 PM Status: COMPLETED Source: [facility] Dr Gurrola wants to know if t he ulcer is fixed for him to be on Aspirin for the PE. States we missed the ball somewhere. Patient does not have a PCP right now. Dr Gurrola wants to know If everything is ok for him to be on it. DP 36 Observed: 08/17/2024 12:02 PM Status: COMPLETED Source: [facility] Per chart review, patient wa s advised to follow up with PCP (if he has one) to discuss resuming aspirin versus anticoagulation for history of PE. He was not discharged home with anticoagulation. Otherwise will need to establish with a PCP. Thanks 36 Observed: 08/17/2024 9:47 AM Status: COMPLETED Source: [facility] Dr Dante Gurrola called to nd out some information about the pt. He is in [facility] and was told he is suppose to be on a blood thinner. The GI Dr at [facility] is against him being on one if he has an ulcer. would like a call back with some clarification, he stated he has tried getting records from [facility] and the medical records department said they had no records. 's cell number is [phone]. NURSING NOTE Observed: 08/13/2024 11:44 AM Status: COMPLETED Source: [facility] Discharge instructions revie wed with the patient. Patient verbalized an understanding. Iv was removed from the patient and all personal belongings were sent home with him. Patient was transported home by family. 30 Observed: 08/13/2024 10:29 AM Status: COMPLETED Source: [facility] Problem: Pain - Adult Goal: Verbalizes/displays adequate comfort level or baseline comfort level Outcome: Adequate for DischargeProblem: Safety - Adult Goal: Free from fall injury Outcome: Adequate for DischargeProblem: Discharge Planning Goal: Discharge to home or other facility with appropriate resources Outcome: Adequate for DischargeProblem: Problem Interventions Goal: Assess Nutritional Intake Outcome: Adequate for DischargeProblem: Knowledge Deficit Goal: Patient/family/caregiver demonstrates understanding of disease process, treatment plan, medications, and discharge instructions Outcome: Adequate for DischargeProblem: Potential for Falls Goal: I will remain free of falls Outcome: Adequate for DischargeProblem: Discharge Barriers Goal: My discharge needs are met Outcome: Adequate for Discharge DISCHARGE SUMMARY Observed: 08/13/2024 8:40 AM Status: COMPLETED Source: [facility] Discharge Summary Laine Garcia : 1955 ADMIT [...] Your Medications These medications were sent to [facility]/pharmacy #[id number] - [place], [place] - [address] [facility] [address] [facility] [place] [address] Hours: 24-hours doxycycline 100 MG capsule ondansetron ODT 4 MG disintegrating tablet oxyCODONE 5 MG immediate release tablet DIET: Adult diet Regular; Low Fiber ACTIVITY: No heavy lifting. COMPLEXITY OF FOLLOW UP: [] Moderate Complexity: follow up within 7-14 calendar days (39649) [] Severe Complexity: follow up within 7 calendar days (46694) FOLLOW UP TESTING, PENDING RESULTS OR REFERRALS AT TRANSITIONAL CARE VISIT: [] Yes [] No PENDING STUDIES: DISPOSITION: Home FACILITY/HOME CARE AGENCY NAME: Follow up with Zara Spann DO [address] [place] [address] [address] [phone] Follow up in 2 week(s) for post [...] SIGNED: Jaylyn Moore MD 08/13/2024, 9:26 AM PROGRESS NOTE Observed: 08/13/2024 6:14 AM Status: COMPLETED Source: [facility] Department of Surgery Daily Progress Note SUBJECTIVE: No acute events overnight. Tolerating soft diet. Pain well-controlled. Breathing much better after thoracentesis yesterday. Ambulating the halls with walker independently. Passing flatus and had bowel movement. Denies: fevers, chills, nausea, vomiting, shortness of breath or chest pain. ROS: Noted above unless otherwise mentioned OBJECTIVE: VITALS: Temp: [37.1 ?C (98.8 ?F)-37.3 ?C (99.2 ?F)] 37.1 ?C (98.8 ?F) Heart Rate: [64-78] 66 Resp: [16-20] 20 BP: (139-153)/(85-99) 144/90 INTAKE/OUTPUT: Reviewed in the EMR daily PHYSICAL EXAM: Gen: NAD, A&Ox3, pain well controlled Heart: RRR, well perfused Lungs: symmetric chest rise, normal work of breathing, breath sounds b/l Abd: soft, non tender, non distended. Non rigid. Incisions CDI. Drain with ss output Ext: no c/c/e no gross deformities Skin: warm, well perfused, no obvious rashes, cellulitis or gross discoloration LABS/IMAGING Reviewed in the EMR daily Current Inpatient Medications Scheduled Meds:acetaminophen, 650 mg, Oral, q6h enoxaparin, 40 mg, SubCUTAneous, Daily ipratropium-albuterol, 3 mL, Nebulization, q8h melatonin, 3 mg, Oral, Nightly pantoprazole (ProtoNix) 40 mg in sodium chloride (PF) 0.9 % 10 mL injection, 40 mg, IntraVENous, Nightly Continuous Infusions:lactated Ringer's, 75 mL/hr, Last Rate: 75 mL/hr (08/12/24 0750) PRN Meds:PRN medications: HYDROmorphone, naloxone, ondansetron ODT OR ondansetron, oxyCODONE OR oxyCODONE ASSESSMENT AND PLAN: 69 y.o. male s/p dx lap with FLORINA 08/09 and laparoscopic wedge resection of stomach for perforation 08/10 - Continue soft diet - Drain removed at bedside - PO pain medications for pain control - OOBA - DVT ppx with SCD's and Lovenox - DC today Will discuss with Dr. Maria Ines Moore MD General Surgery Resident 08/13/24 6:14 AM This note may have been dictated using Dragon Medical Practice Edition 2.6 and/or Talisma Voice Recognition Feature. The document was proofread; however, unrecognized voice recognition pad extractor tender errors may be present. 30 Observed: 08/13/2024 6:03 AM Status: COMPLETED Source: [facility] Problem: Pain - Adult Goal: Verbalizes/displays adequate comfort level or baseline comfort level Outcome: ProgressingProblem: Safety - Adult Goal: Free from fall injury Outcome: ProgressingProblem: Discharge Planning Goal: Discharge to home or other facility with appropriate resources Outcome: ProgressingProblem: Problem Interventions Goal: Assess Nutritional Intake Outcome: ProgressingProblem: Knowledge Deficit Goal: Patient/family/caregiver demonstrates understanding of disease process, treatment plan, medications, and discharge instructions Outcome: ProgressingProblem: Potential for Falls Goal: I will remain free of falls Outcome: ProgressingProblem: Discharge Barriers Goal: My discharge needs are met Outcome: Progressing BASIC METABOLIC PANEL Collected: 2024 6:01 AM Status: F Source: [facility] TYPE CODE TESTS RESULT OUT OF RANGE REFERENCE UNITS LAB [id number] SODIUM 140 136-145 mmol/L LAB 3120665 POTASSIUM 3.9 3.5-5.1 mmol/L Result Comment: Plasma potas sium values may be up to 0.5 mmol/L lower than serum values. LAB 2636748 CHLORIDE 109 High 98-107 mmol/L LAB 1117346 CARBON DIOXIDE 26 23-31 mmol/L LAB 5718783 UREA NITROGEN 15 9-23 mg/dL LAB 1028645 CREATININE 0.58 Low 0.72-1.25 mg/dL LAB 2055148 GLUCOSE 112 82-115 mg/dL LAB 3649021 CALCIUM 7.8 Low 8.8-10.0 mg/dL LAB [id number] ANION GAP (ROMAN, CALCULATED) 5 3-13 mmol/L LAB 7700145 GLOMERULAR FILTRATION RATE ML/MIN/1.73 SQ M.PREDICTED >90.0 >60.0 mL/min/1. 73m*2 Result Comment: Calculation based on the Chronic Kidney Disease Epidemiology Collaboration (CKD-EPI) equation refit without adjustment for race Performed By: #### [id number] ### # Board Catcher: NICOLA HOWARD ([id number]) [facility] ([facility] CBC WITH AUTO DIFFERENTIAL Collected: 08/13/2024 6:01 AM Status: F Source: [facility] TYPE CODE TESTS RESULT OUT OF RANGE REFERENCE UNITS LAB 4945535 WBC 7.4 3.6-10.7 10*3/uL LAB 4927877 RBC 3.31 Low 4.40-5.90 10*6/uL LAB 7092034 HEMOGLOBIN 9.7 Low 13.0-18.0 g/dL LAB 9483092 HEMATOCRIT 29.3 Low 40.0-52.0 % LAB 1048438 MCV 88.5 77.0-99.0 fL LAB 4888813 MCH 29.3 26.0-34.0 pg LAB 2580792 MCHC 33.1 30.5-36.0 % LAB 0606401 RDW 14.6 11.5-15.0 % LAB 3406201 PLATELET COUNT 287 140-440 10*3/uL LAB 1784017 MPV 9.5 9.0-12.7 fL LAB 254 NRBC 0.0 0.0-2.0 /100 WBCs LAB 7034144 NEUTROPHILS RELATIVE 80.4 38.0-82.0 % LAB 1516317 LYMPHOCYTES RELATIVE 9.7 Low 15.0-45.0 % LAB 8142583 MONOCYTES RELATIVE 5.9 5.0-13.0 % LAB 9962711 EOSINOPHILS RELATIVE 3.2 0.0-6.0 % LAB 5330412 BASOPHILS RELATIVE 0.3 0.0-2.0 % LAB 3619436 IMMATURE GRANS % 0.5 0.0-2.0 % LAB 9360461 NEUTROPHILS ABSOLUTE 6.0 1.8-7.5 10*3/uL LAB 0298192 LYMPHOCYTES ABSOLUTE 0.7 Low 1.0-4.3 10*3/uL LAB 6324771 MONOCYTES ABSOLUTE 0.4 0.0-0.9 10*3/uL LAB 9876779 EOSINOPHILS ABSOLUTE 0.2 0.0-0.5 10*3/uL LAB 8309156 BASOPHILS ABSOLUTE 0.0 0.0-0.2 10*3/uL LAB 963256 IMMATURE GRANS ABSOLUTE 0.0 <0.1 10*3/uL Performed By: #### [id number] # ### Board Catcher: NICOLA HOWARD ([id number]) [facility] ([facility]) [address] [place] [id number] [facility] PROGRESS NOTE Observed: 08/12/2024 5:49 PM Status: COMPLETED [facility] Nutrition Assessment Type and Reason for Visit: [...] Temples (temporalis) Fluid Accumulation: Unable to assess Blueprinter Strength: Not Performed Nutrition Assessment: Pt with PMH of mitral valves prolapse, pulmonary embolism admitted 08/10 with concern for bleeding duodenal ulcer, possible perforated duodenal ulcer. Pt transferred from [facility] where he was already admitted for [...] therefore he returned to OR 08/10 for Basia take down and laparoscopic wedge resection of [...] On: Kcal/kg Weight Used for Energy Requirements: [place] Weight for Energy Calculation (kg): 78 kg Total Energy Requirements (kcals/day): 7756-0681 Weight Used for Protein Requirements: [place] Weight in Kg Used for Protein Requirements: [...] Ordered Anthropometric Measures: Height: 180.3 cm (5' 11) Current Body Weight: 77.1 kg (170 lb) Usual Body Weight: 81.6 kg (180 lb) % Weight Change (Calculated): -5.6 [place] Body Weight (lbs) (Calculated): 172 lbs [place] Body Weight (Kg) (Calculated): 78 kg % [place] Body Weight (Calculated): 98.8 % BMI (kg/m2) [...] soon to determine Deidra Tello RD Contact: [phone] Observed: 08/12/2024 5:25 PM Status: COMPLETED Source: [facility] Problem: Discharge Planning Goal: Discharge to home or other facility with appropriate resources 08/12/2024 1725 by Mervat Lala RN Outcome: Progressing 08/12/2024 0702 by Mervat Lala RN Outcome: Not Progressing US GUIDED THORACENTESIS Observed: 2024 11:29 AM Status: F Source: [facility] Patient Name[facility]INE [facility]ARC[facility] 1955 [id number] Exam Date/Time: 08/12/2024 09:43 Procedure: US GUIDED THORACENTESIS Ordering Provider: SPANN MARK Reason For Exam: L pleural effusion EXAMINATION: Ultrasound-guided thoracentesis. EXAM DATE AND TIME: 08/12/2024 9:43 [...] achieved with 1% lidocaine solution. A 5 [place] Yueh catheter over its stylette was advanced [...] Electronically Signed Date/Time: 08/12/2024 11:29 AM EDT PROGRESS NOTE Observed: 08/12/2024 11:25 AM Status: COMPLETED Source: [facility] Interventional Radiology Cindy ef Postprocedure Note Procedure: US guided thoracentesis Preprocedure [...] condition. Beto Jackson MD Interventional Radiology Pager: CULTURE ANAEROBIC Observed: 08/12/2024 10:20 AM Status: F Source: [facility] ANAEROBIC CULTURE Reference No growth at 5 days [ S = SUSCEPTIBLE R = RESISTANT I = INTERMEDIATE S-DD = Susceptible-dose dependent NS = Non-susceptible NO = No Interpretation ] Performed By: #### [id number] ## ## Board Catcher: NICOLA HOWARD ([id number]) [address] CULTURE, AEROBIC BACTERIA WI TH GRAM STAIN Observed: 08/12/2024 10:20 AM Status: F Source: [facility] CULTURE Reference No growth at 4 days GRAM STAIN RESULT Reference Few Polymorphonuclear leukocytes per low power field No organisms seen [ S = SUSCEPTIBLE R = RESISTANT I = INTERMEDIATE S-DD = Susceptible-dose dependent NS = Non-susceptible NO = No Interpretation ] Performed By: #### [id number] ## ## Board Catcher: NICOLA HOWARD ([id number]) [address] PROCEDURE NOTE Observed: 08/12/2024 9:56 AM Status: COMPLETED Source: [facility] Patient arrived to Ultrasoun d department for thoracentesis. History, medications and allergies reviewed. Dr C Kondray in to discuss procedure and informed consent obtained. Patient assisted to sitting on the edge of the bed. Left upper back scanned, marked and prepped in sterile fashion. Procedure completed. 700mls of clear yellow fluid removed. Tegaderm applied. Patient tolerated procedure well. Patient transferred back to room. PROGRESS NOTE Observed: 08/12/2024 7:20 AM Status: COMPLETED Source: [facility] Department of Surgery Daily Progress Note SUBJECTIVE: No acute events overnight. Tolerating FLD. Pain well-controlled. Endorsing mild shortness of breath when falling asleep. Otherwise, did well ambulating the halls yesterday. Passing flatus and had multiple bowel movements. Denies: fevers, chills, nausea, vomiting, shortness of breath or chest pain. ROS: Noted above unless otherwise mentioned OBJECTIVE: VITALS: Temp: [36.8 ?C (98.2 ?F)-37.2 ?C (99 ?F)] 37.1 ?C (98.8 ?F) Heart Rate: [63-72] 66 Resp: [16-20] 20 BP: (122-150)/(76-93) 122/76 INTAKE/OUTPUT: Reviewed in the EMR daily PHYSICAL EXAM: Gen: NAD, A&Ox3, pain well controlled Heart: RRR, well perfused Lungs: symmetric chest rise, normal work of breathing, breath sounds b/l Abd: soft, non tender, non distended. Non rigid. Incisions CDI. Drain with ss output Ext: no c/c/e no gross deformities Skin: warm, well perfused, no obvious rashes, cellulitis or gross discoloration LABS/IMAGING Reviewed in the EMR daily Current Inpatient Medications Scheduled Meds:acetaminophen, 650 mg, Oral, q6h enoxaparin, 40 mg, SubCUTAneous, Daily pantoprazole (ProtoNix) 40 mg in sodium chloride (PF) 0.9 % 10 mL injection, 40 mg, IntraVENous, Nightly Continuous Infusions:lactated Ringer's, 75 mL/hr, Last Rate: 100 mL/hr (08/11/24 935) PRN Meds:PRN medications: HYDROmorphone, ipratropium-albuterol, naloxone, ondansetron ODT OR ondansetron, oxyCODONE OR oxyCODONE ASSESSMENT AND PLAN: 69 y.o. male s/p dx lap with FLORINA 08/09 and laparoscopic wedge resection of stomach for perforation 08/10 - No further surgical intervention at this time - Possible advancement to soft diet today - Plan for thoracentesis with IR today - PO pain medications for pain control - OOBA - DVT ppx with SCD's and Lovenox Will discuss with Dr. Maria Ines Moore MD General Surgery Resident 08/12/24 7:21 AM This note may have been dictated using Maya's Mom Medical Practice Edition 2.6 and/or Talisma Voice Recognition Feature. The document was proofread; however, unrecognized voice recognition pad extractor tender errors may be present. 30 Observed: 08/12/2024 5:51 AM Status: COMPLETED Source: [facility] Problem: Pain - Adult Goal: Verbalizes/displays adequate comfort level or baseline comfort level Outcome: ProgressingProblem: Safety - Adult Goal: Free from fall injury Outcome: ProgressingProblem: Discharge Planning Goal: Discharge to home or other facility with appropriate resources Outcome: Progressing CBC WITH AUTO DIFFERENTIAL Collected: 08/12/2024 5:50 AM Status: F Source: [facility] TYPE CODE TESTS RESULT OUT OF RANGE REFERENCE UNITS LAB [id number] WBC 8.8 3.6-10.7 10*3/uL LAB 2531723 RBC 3.30 Low 4.40-5.90 10*6/uL LAB 5004552 HEMOGLOBIN 9.7 Low 13.0-18.0 g/dL LAB 9353515 HEMATOCRIT 29.4 Low 40.0-52.0 % LAB 5347111 MCV 89.1 77.0-99.0 fL LAB 8978896 MCH 29.4 26.0-34.0 pg LAB 5385617 MCHC 33.0 30.5-36.0 % LAB 8123562 RDW 14.7 11.5-15.0 % LAB 9226075 PLATELET COUNT 287 140-440 10*3/uL LAB 1798122 MPV 9.3 9.0-12.7 fL LAB 254 NRBC 0.0 0.0-2.0 /100 WBCs LAB 9609445 NEUTROPHILS RELATIVE 81.9 38.0-82.0 % LAB 3179801 LYMPHOCYTES RELATIVE 8.9 Low 15.0-45.0 % LAB 7419444 MONOCYTES RELATIVE 6.2 5.0-13.0 % LAB 5319646 EOSINOPHILS RELATIVE 2.4 0.0-6.0 % LAB 4861377 BASOPHILS RELATIVE 0.1 0.0-2.0 % LAB 6003605 IMMATURE GRANS % 0.5 0.0-2.0 % LAB 7383415 NEUTROPHILS ABSOLUTE 7.2 1.8-7.5 10*3/uL LAB 9302812 LYMPHOCYTES ABSOLUTE 0.8 Low 1.0-4.3 10*3/uL LAB 8983835 MONOCYTES ABSOLUTE 0.5 0.0-0.9 10*3/uL LAB 7632667 EOSINOPHILS ABSOLUTE 0.2 0.0-0.5 10*3/uL LAB 5482272 BASOPHILS ABSOLUTE 0.0 0.0-0.2 10*3/uL LAB 605140 IMMATURE GRANS ABSOLUTE 0.0 <0.1 10*3/uL Performed By: #### [id number] # ### Board Catcher: NICOLA HOWARD ([id number]) [facility] ([address] BASIC METABOLIC PANEL Collected: 2024 5:50 AM Status: F Source: [facility] TYPE CODE TESTS RESULT OUT OF RANGE REFERENCE UNITS LAB 3320947 SODIUM 140 136-145 mmol/L LAB 5956612 POTASSIUM 3.3 Low 3.5-5.1 mmol/L Result Comment: Plasma potas sium values may be up to 0.5 mmol/L lower than serum values. LAB 0173247 CHLORIDE 106 98-107 mmol/L LAB 0552004 CARBON DIOXIDE 27 23-31 mmol/L LAB 8026375 UREA NITROGEN 20 9-23 mg/dL LAB 2355844 CREATININE 0.59 Low 0.72-1.25 mg/dL LAB 4127706 GLUCOSE 105 82-115 mg/dL LAB 2171676 CALCIUM 7.7 Low 8.8-10.0 mg/dL LAB [id number] ANION GAP (ROMAN, CALCULATED) 7 3-13 mmol/L LAB 5050554 GLOMERULAR FILTRATION RATE ML/MIN/1.73 SQ M.PREDICTED >90.0 >60.0 mL/min/1. 73m*2 Result Comment: Calculation based on the Chronic Kidney Disease Epidemiology Collaboration (CKD-EPI) equation refit without adjustment for race Performed By: #### LAB15, [place] B103 #### Board Catcher: NICOLA HOWARD ([id number]) [facility] ([facility] [address] [place] [address] MAGNESIUM Collected: 5:50 AM Status: F Source: [facility] TYPE CODE TESTS RESULT OUT OF RANGE REFERENCE UNITS LAB [id number] MAGNESIUM 2.0 1.6-2.6 mg/dL Result Comment: ORDER COMMEN TS: Higher values can be expected in females during menses. Performed By: #### [id number] #### Board Catcher: NICOLA HOWARD ([phone]) [facility] [address] [place] [address] 30 Observed: 08/11/2024 6:29 PM Status: COMPLETED Source: [employer] [facility] Problem: Pain - Adult Goal: Verbalizes/displays adequate comfort level or baseline comfort level Outcome: ProgressingProblem: Safety - Adult Goal: Free from fall injury Outcome: ProgressingProblem: Discharge Planning Goal: Discharge to home or other facility with appropriate resources Outcome: Progressing CT ABDOMEN PELVIS W CONTRAST Observed: 0 08/11/2024 3:28 PM Status: F Source: [facility] Patient Name: [facility]INE [facility]ARC[facility] 1955 [id number] Exam Date/Time: 08/11/2024 14:48 Procedure: CT ABDOMEN [...] mild gaseous distention involving large bowel. Peritoneal cavity/retroperitoneum: Trace pneumoperitoneum in the upper abdomen presumably [...] Electronically Signed Date/Time: 08/11/2024 3:28 PM EDT PROGRESS NOTE Observed: 08/11/2024 1:15 PM Status: COMPLETED Source: [facility] Nutrition rescreen completed . Patient referred to the Dietitian. Patient is NPO > 3 days. TEODORO Hernandez PROGRESS NOTE Observed: 08/11/2024 7:33 AM Status: COMPLETED Source: [facility] Department of Surgery Daily Progress Note SUBJECTIVE: No acute events overnight. S/p Basia take down and laparoscopic wedge resection of stomach for gastric perforation. Pain well-controlled. Currently n.p.o. for imaging this a.m. Denies: fevers, chills, nausea, vomiting, shortness of breath or chest pain. ROS: Noted above unless otherwise mentioned OBJECTIVE: VITALS: Temp: [36.4 ?C (97.6 ?F)-37.1 ?C (98.7 ?F)] 36.7 ?C (98 ?F) Heart Rate: [69-89] 83 Resp: [12-20] 16 BP: (130-181)/(78-98) 134/86 FiO2 (%): [3 %] 3 % INTAKE/OUTPUT: Reviewed in the EMR daily PHYSICAL EXAM: Gen: NAD, A&Ox3, pain well controlled Heart: RRR, well perfused Lungs: symmetric chest rise, normal work of breathing, breath sounds b/l Abd: soft, non tender, non distended. Non rigid. Incision CDI. Drain with ss output Ext: no c/c/e no gross deformities Skin: warm, well perfused, no obvious rashes, cellulitis or gross discoloration LABS/IMAGING Reviewed in the EMR daily Current Inpatient Medications Scheduled Meds:acetaminophen, 650 mg, Oral, q6h enoxaparin, 40 mg, SubCUTAneous, Daily pantoprazole (ProtoNix) 40 mg in sodium chloride (PF) 0.9 % 10 mL injection, 40 mg, IntraVENous, Nightly Continuous Infusions:lactated Ringer's, 100 mL/hr, Last Rate: Stopped (08/10/24 0204) PRN Meds:PRN medications: HYDROmorphone, ipratropium-albuterol, naloxone, ondansetron ODT OR ondansetron, oxyCODONE OR oxyCODONE ASSESSMENT AND PLAN: 69 y.o. male s/p dx lap with FLORINA 08/09 and laparoscopic wedge resection of stomach for perforation 08/10 - No further surgical intervention at this time - UGI this a.m. - N.p.o., may advance to [facility] pending UGI - PO pain medications for pain control - OOBA - DVT ppx with SCD's and Lovenox Will discuss with Dr. Maria Ines Moore MD General Surgery Resident 08/11/24 7:33 AM This note may have been dictated using [employer] Edition 2.6 and/or [employer] Voice Recognition Feature. The document was proofread; however, unrecognized voice recognition pad extractor tender errors may be present. CBC WITH AUTO DIFFERENTIAL Collected: 08/11/2024 2:23 AM Status: F Source: [facility] TYPE CODE TESTS RESULT OUT OF RANGE REFERENCE UNITS LAB [id number] WBC 11.8 High 3.6-10.7 10*3/uL LAB 5591276 RBC 3.52 Low 4.40-5.90 10*6/uL LAB 7894318 HEMOGLOBIN 10.4 Low 13.0-18.0 g/dL LAB 7683911 HEMATOCRIT 30.9 Low 40.0-52.0 % LAB 4527458 MCV 87.8 77.0-99.0 fL LAB 7250701 MCH 29.5 26.0-34.0 pg LAB 6542657 MCHC 33.7 30.5-36.0 % LAB 0224340 RDW 14.6 11.5-15.0 % LAB 4609844 PLATELET COUNT 270 140-440 10*3/uL LAB 7981643 MPV 9.4 9.0-12.7 fL LAB 254 NRBC 0.0 0.0-2.0 /100 WBCs LAB 7457001 NEUTROPHILS RELATIVE 91.7 High 38.0-82.0 % LAB 4121014 LYMPHOCYTES RELATIVE 3.0 Low 15.0-45.0 % LAB 4519364 MONOCYTES RELATIVE 4.7 Low 5.0-13.0 % LAB 6180457 EOSINOPHILS RELATIVE 0.0 0.0-6.0 % LAB 5690524 BASOPHILS RELATIVE 0.0 0.0-2.0 % LAB 4520921 IMMATURE GRANS % 0.6 0.0-2.0 % LAB 7861814 NEUTROPHILS ABSOLUTE 10.8 High 1.8-7.5 10*3/uL LAB 0335257 LYMPHOCYTES ABSOLUTE 0.4 Low 1.0-4.3 10*3/uL LAB 7633047 MONOCYTES ABSOLUTE 0.6 0.0-0.9 10*3/uL LAB 9612029 EOSINOPHILS ABSOLUTE 0.0 0.0-0.5 10*3/uL LAB 5884888 BASOPHILS ABSOLUTE 0.0 0.0-0.2 10*3/uL LAB 832610 IMMATURE GRANS ABSOLUTE 0.1 High <0.1 10*3/uL Performed By: #### [id number] # ### Board Catcher: NICOLA HOWARD ([phone]) [facility] ([facility]) [address] [place] [address] COMPREHENSIVE METABOLIC PANEL Collected: 08/11/2024 2 :23 AM Status: F Source: [facility] TYPE CODE TESTS RESULT OUT OF RANGE REFERENCE UNITS LAB 3119237 SODIUM 142 136-145 mmol/L LAB 7648761 POTASSIUM 3.6 3.5-5.1 mmol/L Result Comment: Plasma potas sium values may be up to 0.5 mmol/L lower than serum values. LAB 6562885 CHLORIDE 109 High 98-107 mmol/L LAB 4662086 CARBON DIOXIDE 25 23-31 mmol/L LAB [id number] ANION GAP (ROMAN, CALCULATED) 8 3-13 mmol/L LAB 1574769 UREA NITROGEN 21 9-23 mg/dL LAB 6441505 CREATININE 0.65 Low 0.72-1.25 mg/dL LAB 7338821 GLUCOSE 150 High 82-115 mg/dL LAB 3152636 CALCIUM 7.8 Low 8.8-10.0 mg/dL LAB 7041154 AST (SGOT) 28 <34 U/L LAB 9008591 ALT 6 <40 U/L LAB 1282517 ALKALINE PHOSPHATASE 50 40-150 U/L LAB 0253849 ALBUMIN 2.0 Low 3.4-4.8 g/dL LAB 5868740 BILIRUBIN, TOTAL 0.3 <1.2 mg/dL LAB 9055980 TOTAL PROTEIN 4.9 Low 6.4-8.3 g/dL LAB 6440265 GLOMERULAR FILTRATION RATE ML/MIN/1.73 SQ M.PREDICTED >90.0 >60.0 mL/min/1. 73m*2 Result Comment: Calculation based on the Chronic Kidney Disease Epidemiology Collaboration (CKD-EPI) equation refit without adjustment for race Performed By: #### [id number] ### # Board Catcher: NICOLA HOWARD ([phone]) [facility] ([facility]) [address] [place] [address] [id number] Observed: 08/10/2024 5:36 PM Status: COMPLETED Source: [facility] Patient: Laine Garcia Procedure Summary Date: 08/10/24 Room / Location: [facility] OR [address] [place] [address] Operating Room Anesthesia Start: 155 Anesthesia Stop: 173 Procedure: LAPAROSCOPIC WEDGE RESECTION OF STOMACH, EGD (Abdomen) Diagnosis: Duodenal perforation (CMS/HCC) (HCC) Surgeons: Zara Spann DO Responsible Provider: Romie Anglin MD Anesthesia Type: general ASA Status: 2 Anesthesia Type: general Vitals Value Taken Time BP 147/78 08/10/24 1732 Temp 36.4 08/10/24 1736 Pulse 73 08/10/24 1735 Resp 15 08/10/24 1734 SpO2 98 % 08/10/24 173 Vitals shown include unfiled device data. Anesthesia [...] once all PACU criteria has been met. ANESTHESIA NOTE Observed: 08/10/2024 5:36 PM Status: COMPLETED Source: [facility] Patient: Laine Garcia Procedure Summary Date: 08/10/24 Room / Location: [address] Operating Room Anesthesia Start: 1553 Anesthesia Stop: 1734 Procedure: LAPAROSCOPIC WEDGE RESECTION [...] opportunity for questions and acknowledgement of understanding. TISSUE EXAM Collected: 5:06 PM Status: C Source: [facility] [place] [facility] TYPE CODE TESTS RESULT OUT OF RANGE REFERENCE UNITS PATHOLOGY 1499 LAB AP CASE REPORT Result Comment: Surgical Pat hology Case: [id number] Authorizing Provider: Zara Spann DO Collected: 08/10/2024 1706 Ordering Location: [facility] MAIN OR Received: 08/11/2024 0824 Pathologist: Valeria Reyez MD Specimen: Stomach, STOMACH PERFORATION PATHOLOGY 34 LAB AP REPORT FINAL DIAGNOSIS NARRATIVE Result Comment: STOMACH, PAR TIAL EXCISION - GASTRIC MUCOSA WITH FOCAL MUCOSAL NECROSIS, PERFORATION, AND SEROSITIS. Comment: The background gastric mucosa does not demonstrate significant inflammatory changes, but immunohistochemical stain for Helicobacter pylori organisms will be performed and reported in an addendum. at 1306 EDT PATHOLOGY 29 LAB AP CLINICAL INFORMATION Duodenal perforation (CMS/HCC) (HCC) - K63.1 [ICD-10-CM] PATHOLOGY 6283644 LAB AP HISTO GROSS DESCRIPTION Received in formalin labeled stomach perforation is a single irregular fragment of stomach measuring 3.5 x 1.5 x 1.4 cm, which contains a 3.5 cm in length staple line. The staple line is removed and the underlying margin is inked blue. The minimal serosa is pavon-purple and diffusely dusky, with a 1.0 x 0.5 cm transmural defect (inked orange), which is 0.2 cm from the stapled margin. The serosal surface directly adjacent to this defect is diffusely hemorrhagic and granular. The specimen is opened to reveal pavon-pink to red-pavon minimally granular mucosa and an average wall thickness of 0.1 cm. No polyps or masses are identified. The specimen is entirely submitted in A1-A2, with the entire area of perforation in A1. PATHOLOGY 769 LAB AP ASR DISCLAIMER Result Comment: Disclaimer: The following statement applies to all immunohistochemistry, in situ hybridization, molecular studies, and immunofluorescence testing, if performed on this case. The use of one or more reagents in the above tests is regulated as an analyte specific reagent (ASR). These tests were developed and their performance characteristics determined by the clinical laboratories of [facility]. They have not been cleared by the US Food and Drug Administration (FDA). The FDA has determined that such clearance or approval is not necessary. All immunostains were performed on paraffin embedded tissue. Appropriate positive and negative controls (where applicable) were run in parallel with the patient's specimen; these controls showed expected staining pattern, with acceptable intensity of staining. Immunohistochemical assays have not been validated on decalcified tissues. Results should be interpreted with caution given the raised possibility of false negativity on decalcified specimens. PATHOLOGY EMBDOC OUTGOING CLINICAL RESULTS EMBEDDED DOCUMENT PATHOLOGY 37 LAB AP ADDENDUM 1 Result Comment: Immunohistoc hemical stain for Helicobacter pylori organisms was performed, and is negative Addendum electronically signed by Valeria Reyez MD on 08/22/2024 at 1554 EDT Performed By: #### [id number] # ### Board Catcher: NICOLA HOWARD ([phone]) [facility] ([facility]) [address] [place] [address] PROCEDURE NOTE Observed: 08/10/2024 4:05 PM Status: COMPLETED Source: [facility] Airway Date/Time: 08/10/2024 4:05 PM Urgency: scheduled Airway not difficult General Information and Staff Patient location during procedure: Procedural Resident/TC OPERATOR: Jose Luis Breaux APRN - TC OPERATOR Performed: SRNA Indications and Patient Condition Indications [...] Comments Atraumatic intubation, dentition intact from baseline OP NOTE Observed: 08/10/2024 3:54 PM Status: COMPLETED Source: [facility] Patient: Laine Garcia Date of : 1955 Service Date: 08/09/24 PROCEDURE: Diagnostic laparoscopy with laparoscopic enterolysis EGD PREOPERATIVE DIAGNOSES: Patient Active Problem List Diagnosis Duodenal perforation (CMS/HCC) (HCC) Duodenal ulceration Pneumoperitoneum Possible gastric perforation POSTOPERATIVE DIAGNOSES: Same ANESTHESIA: General SURGEON: DR. Zara Spann OPERATIONS OFFICER TRUST DEPARTMENT: Dr. Vance FLUIDS: 1000 cc crystalloid ESTIMATED BLOOD LOSS: 10 cc URINE OUTPUT: Not recorded. PREOPERATIVE MEDICATIONS: 3 Ancef INDICATIONS FOR PROCEDURE: The patient is a 69 y.o. male presents to [facility] from outside facility with a possible [...] in this area with the. Patient's previous Basia fundoplication. We mobilized the greater curve of [...] Patient extubated taken recovery in stable condition. OP NOTE Observed: 08/10/2024 3:54 PM Status: COMPLETED Source: [facility] Patient: Laine Garcia Date of : 1955 Service Date: 08/10/2024 PROCEDURE: Laparoscopic wedge resection of stomach Laparoscopic enterolysis EGD 19 [place]uran drain placement. PREOPERATIVE DIAGNOSES: Patient Active Problem List Diagnosis Duodenal perforation (CMS/HCC) (HCC) Duodenal ulceration Pneumoperitoneum Gastric perforation POSTOPERATIVE DIAGNOSES: Same ANESTHESIA: General SURGEON: DR. Zara Spann OPERATIONS OFFICER TRUST DEPARTMENT: Dr. Sandy Gallardo FLUIDS: 1000 cc crystalloid [...] dissected the hiatal hernia and the previous Basia. We mobilized along the greater curvature the [...] this point we then placed a 19 [place] drain along the cephalad aspect of the spleen and the previous abscess cavity. This was brought up to the left upper quadrant trocar site. This trocar site was then closed using 2-0 silk suture. The abdominal cavity was then desufflated. 4-0 Monocryl was then placed to close the incisions. The patient was then extubated taken recovery in stable condition. ABDOMEN PELVIS WO IV CONTRAST Observed: 08/10/2024 12:34 PM Status: F Source: [facility] Patient Name: LAINE GARCIA : 1955 [facility]#: [id number] Exam Date/Time: 08/10/2024 11:17 Procedure: CT ABDOMEN [...] Electronically Signed Date/Time: 08/10/2024 12:34 PM EDT ANESTHESIA NOTE Observed: 08/10/2024 11:57 AM Status: COMPLETED Source: [facility] Patient: Laine Garcia Procedure Information Date: 08/10/24 Procedure: LAPAROSCOPY, DIAGNOSTIC (Abdomen) Location: [facility] Operating Room Surgeons: Zara Spann DO [...] 12:13 AM Equipment Requests: Additional Equipment Requests PROGRESS NOTE Observed: 08/10/2024 10:12 AM Status: COMPLETED Source: [facility] Correction. Probable extrava sation of contrast. PROGRESS NOTE Observed: 08/10/2024 7:45 AM Status: COMPLETED Source: [facility] Department of Surgery Daily Progress Note SUBJECTIVE: No acute events overnight. Pain well-controlled. Currently n.p.o. for imaging this a.m. Denies: fevers, chills, nausea, vomiting, shortness of breath or chest pain. ROS: Noted above unless otherwise mentioned OBJECTIVE: VITALS: Temp: [35.8 ?C (96.4 ?F)-37.3 ?C (99.1 ?F)] 36.7 ?C (98 ?F) Heart Rate: [78-99] 81 Resp: [14-21] 16 BP: (123-147)/(71-116) 141/81 FiO2 (%): [2 %] 2 % INTAKE/OUTPUT: Reviewed in the EMR daily PHYSICAL EXAM: Gen: NAD, A&Ox3, pain well controlled Heart: RRR, well perfused Lungs: symmetric chest rise, normal work of breathing, breath sounds b/l Abd: soft, non tender, non distended. Non rigid. Incision CDI Ext: no c/c/e no gross deformities Skin: warm, well perfused, no obvious rashes, cellulitis or gross discoloration LABS/IMAGING Reviewed in the EMR daily Current Inpatient Medications Scheduled Meds:acetaminophen, 650 mg, Oral, q6h enoxaparin, 40 mg, SubCUTAneous, Daily pantoprazole (ProtoNix) 40 mg in sodium chloride (PF) 0.9 % 10 mL injection, 40 mg, IntraVENous, Nightly Continuous Infusions:lactated Ringer's, 100 mL/hr, Last Rate: 100 mL/hr (08/10/24 0217) lactated Ringer's, 50 mL/hr, Last Rate: Stopped (08/10/24 0033) PRN Meds:PRN medications: HYDROmorphone, naloxone, ondansetron ODT OR ondansetron, oxyCODONE OR oxyCODONE ASSESSMENT AND PLAN: 69 y.o. male s/p diagnostic laparoscopy, lysis of adhesions, EGD on 08/09/2024 for possible small bowel perforation - No further surgical intervention at this time - UGI this a.m. - N.p.o. - PO pain medications for pain control - OOBA - DVT ppx with SCD's and Lovenox - Dispo pending imaging findings Will discuss with Dr. Maria Ines Delgado MD General Surgery Resident 08/10/24 7:45 AM This note may have been dictated using [employer] Edition 2.6 and/or [employer] Voice Recognition Feature. The document was proofread; however, unrecognized voice recognition pad extractor tender errors may be present. CBC WITH AUTO DIFFERENTIAL Collected: 08/10/2024 2:33 AM Status: F Source: [facility] TYPE CODE TESTS RESULT OUT OF RANGE REFERENCE UNITS LAB 0658949 WBC 11.4 High 3.6-10.7 10*3/uL LAB 7402846 RBC 3.45 Low 4.40-5.90 10*6/uL LAB 9722454 HEMOGLOBIN 10.1 Low 13.0-18.0 g/dL LAB 7179749 HEMATOCRIT 30.3 Low 40.0-52.0 % LAB 0995561 MCV 87.8 77.0-99.0 fL LAB 5205822 MCH 29.3 26.0-34.0 pg LAB 0153036 MCHC 33.3 30.5-36.0 % LAB 7067152 RDW 14.6 11.5-15.0 % LAB 4273900 PLATELET COUNT 228 140-440 10*3/uL LAB 4424526 MPV 9.5 9.0-12.7 fL Performed By: #### [id number], [id number] #### Board Catcher: NICOLA HOWARD ([phone]) [facility] ([address] MANUAL DIFFERENTIAL (CELLAVISION) Collected: 08/10/2024 2:33 AM Status: F Source: [facility] TYPE CODE TESTS RESULT OUT OF RANGE REFERENCE UNITS LAB 2688224 RBC MORPHOLOGY I N BLOOD abnormal LAB 8050383 POIKILOCYTOSIS (PRESENCE) IN BLOOD BY LIGHT MICROSCOPY Slight Abnormal (none) LAB 4529875 OVALOCYTES PRESENCE IN BLOOD BY LIGHT MICROSCOPY Slight Abnormal (none) LAB 5289265 ELZBIETA CELLS PRESENCE IN BLOOD BY LIGHT MICROSCOPY Slight Abnormal (none) LAB 7821830 SEGMENTED NEUTROPHILS/100 LEUKOCYTES-CE 88 High 38-82 % LAB 6613282 NEUTROPHILS BAND FORM/100 LEUKOCYTES IN BLOOD-CELLAVISI 5 High <=0 % LAB 6724615 LYMPHOCYTES/100 LEUKOCYTES IN BLOOD-CELLAVISION 1 Low 15-45 % LAB 5647853 MONOCYTES/100 LEUKOCYTES IN BLOOD-ARIAS 4 Low 5-13 % LAB 4195957 BASOPHILS/100 LEUKOCYTES IN BLOOD-CELLAVISION 1 0-2 % LAB 2199995 MYELOCYTES/100 LEUKOCYTES IN BLOOD-CELLAVISION 1 High <=0 % LAB 3306982 SEGMENTED NEUTROPHILS (10*3/UL) IN BLOOD-CELLAVISION 10.6 High 1.8-7.5 10*3/uL LAB 0750067 BANDS (10*3/UL) IN BLOOD-CELLAVISION 0.6 High <=0.0 10*3/uL LAB 6207328 LYMPHOCYTES (10*3/UL) IN BLOOD-CELLAVISION 0.1 Low 1.0-4.3 10*3/uL LAB 2183703 MONOCYTES (10*3/UL) IN BLOOD-CELLAVISION 0.5 0.0-0.9 10*3/uL LAB 9596189 BASOPHILS (10*3/UL) IN BLOOD-CELLAVISION 0.1 0.0-0.2 10*3/uL LAB 2855546 MYELOCYTES (10*3/UL) IN BLOOD-CELLAVISION 0.1 High <=0.0 10*3/uL LAB 6904431 NEUTROPHILS TOTA L PER COUNTED LEUKOCYTES BY MANUAL COUNT 90 LAB 3683622 LYMPHOCYTES TOTA L PER COUNTED LEUKOCYTES BY MANUAL COUNT 1 LAB 7759279 MONOCYTES TOTAL PER COUNTED LEUKOCYTES BY MANUAL COUNT 4 LAB 2214198 EOSINOPHILS TOTA L PER COUNTED LEUKOCYTES BY MANUAL COUNT LAB 7973301 BASOPHILS TOTAL PER COUNTED LEUKOCYTES BY MANUAL COUNT 1 LAB 6156109 BAND NEUTROPHILS TOTAL PER COUNTED LEUKOCYTES BY MANUAL COUNT 5 LAB 111 METAMYELOCYTES TOTAL PER COUNTED LEUKOCYTES BY MANUAL COUNT LAB 1411 MYELOCYTES COUNTED BY MANUAL COUNT 1 LAB 113 PROMYELOCYTES TOTAL PER COUNTED LEUKOCYTES BY MANUAL COUNT LAB 9185403 BLASTS TOTAL PER COUNTED LEUKOCYTES BY MANUAL COUNT LAB 115 VARIANT LYMPHOCYTES TOTAL PER COUNTED LEUKOCYTES BY MANUAL COUNT LAB 9128100 UNCLASSIFIED CELLS TOTAL PER COUNTED LEUKOCYTES BY MANUAL COUNT Performed By: #### [id number], [id number] #### Board Catcher: NICOLA HOWARD ([phone]) [facility] ([facility]) [address] [place] [address] BASIC METABOLIC PANEL Collected: 2024 2:33 AM Status: F Source: [facility] TYPE CODE TESTS RESULT OUT OF RANGE REFERENCE UNITS LAB 9162305 SODIUM 139 136-145 mmol/L LAB 8176584 POTASSIUM 3.5 3.5-5.1 mmol/L Result Comment: Plasma potas sium values may be up to 0.5 mmol/L lower than serum values. LAB 5834093 CHLORIDE 108 High 98-107 mmol/L LAB 7778874 CARBON DIOXIDE 24 23-31 mmol/L LAB 6607215 UREA NITROGEN 13 9-23 mg/dL LAB 7431934 CREATININE 0.62 Low 0.72-1.25 mg/dL LAB 1218019 GLUCOSE 146 High 82-115 mg/dL LAB 8340042 CALCIUM 7.7 Low 8.8-10.0 mg/dL LAB 1391506148 ANION GAP (ROMAN, CALCULATED) 7 3-13 mmol/L LAB 3259140 GLOMERULAR FILTRATION RATE ML/MIN/1.73 SQ M.PREDICTED >90.0 >60.0 mL/min/1. 73m*2 Result Comment: Calculation based on the Chronic Kidney Disease Epidemiology Collaboration (CKD-EPI) equation refit without adjustment for race Performed By: #### JESSICA MCCLELLAN #### Board Catcher: NICOLA HOWARD ([phone]) [facility] ([facility]) [address] [place] [address] MAGNESIUM Collected: 2:33 AM Status: F Source: [facility] [place] [facility] TYPE CODE TESTS RESULT OUT OF RANGE REFERENCE UNITS LAB 8759176 MAGNESIUM 1.8 1.6-2.6 mg/dL Result Comment: ORDER COMMEN TS: Higher values can be expected in females during menses. Performed By: #### JESSICA [id number] #### Board Catcher: NICOLA HOWARD ([phone]) [facility] [address] [place] [address] NURSING NOTE Observed: 08/10/2024 1:34 AM Status: COMPLETED Source: [facility] Report called to H5. [id number] Observed: 08/10/2024 1:03 AM Status: COMPLETED Source: [facility] [place] [facility] Patient: Laine Garcia Procedure Summary Date: 08/09/24 Room / Location: [address] Operating Room Anesthesia Start: 2327 Anesthesia Stop: 08/10/24 010 Procedure: LAPAROSCOPY, DIAGNOSTIC, LYSIS OF ADHESIONS, EGD (Abdomen) Diagnosis: Duodenal perforation (CMS/HCC) (HCC) Surgeons: Zara Spann DO Responsible Provider: Dano Ennis MD Anesthesia Type: general, regional ASA Status: 2 - Emergent Anesthesia Type: general, regional Vitals Value Taken Time BP 133/81 08/10/24 0101 Temp 35.9 ?C (96.7 ?F) 08/10/24 0100 Pulse 85 08/10/24 0102 Resp 21 08/10/24 010 SpO2 96 % 08/10/24101 Vitals shown include [...] once all PACU criteria has been met. ANESTHESIA NOTE Observed: 08/10/2024 1:03 AM Status: COMPLETED Source: [employer] [facility] Patient: Laine Garcia Procedure Summary Date: 08/09/24 Room / Location: [address] Operating Room Anesthesia Start: 2327 Anesthesia [...] Resp 21 08/10/24 0102 SpO2 96 % 08/10/24 010 Vitals shown include unfiled device data. Anesthesia [...] opportunity for questions and acknowledgement of understanding. ECG 12-LEAD Observed: 08/10/2024 12:13 AM Status: F Source: [place] [facility] IMPRESSION: Sinus rhythm Minimal ST depression, lateral leads Electronically Signed On 08-10-2024 00:13:40 EDT by Etienne Hardin PROCEDURE NOTE Observed: 08/09/2024 11:57 PM Status: COMPLETED Source: [place] [facility] Airway Date/Time: 08/09/2024 11:25 PM Urgency: scheduled Airway not difficult General Information and Staff Patient location during procedure: Procedural Anesthesiologist: Dano Ennis MD Resident/TC OPERATOR: Derrick Grayson APRN - SIGRID Performed: TC OPERATOR Indications and Patient Condition Indications for airway [...] BVM Number of other approaches attempted: 0 ANESTHESIA NOTE Observed: 08/09/2024 11:50 PM Status: COMPLETED Source: [facility] [place] [facility] Patient: Laine Garcia Procedure Information Anesthesia Start Date/Time: 08/09/24 8991 Procedure: LAPAROSCOPY, DIAGNOSTIC, repair of duodenal perf, possible ex lap (Abdomen) Location: [address] Operating Room Surgeons: Zara Spann, DO [...] lateral leads Equipment Requests: Additional Equipment Requests PROCEDURE NOTE Observed: 08/09/2024 11:44 PM Status: COMPLETED Source: [facility] Peripheral Block Time Out: 08/09/2024 11:40 PM [...] supine Prep: ChloraPrep Patient monitoring: heart rate, quality assurance monitor, continuous pulse ox and continuous capnometry [...] plane. and Local anesthetic injected without difficultyMedications aleFFMJAkyywu-gklwrjwssnj-ojileowkuyz (TAP) syringe - Injection 60 mL - 08/09/2024 11:40:00 PM OP NOTE Observed: 08/09/2024 11:28 PM Status: COMPLETED Source: [facility] [place] [facility] Date: 08/09/2024 - 08/10/2024 Lo cation: [facility] OR Name: Laine Garcia, : 1955, Diagnosis Pre-op Diagnosis * Duodenal perforation (CMS/HCC) (HCC) [K63.1] Post-op Diagnosis * Duodenal perforation (CMS/HCC) (HCC) [K63.1] Procedures LAPAROSCOPY, DIAGNOSTIC, LYSIS OF ADHESIONS, EGD 07903 - IL LAPS ABD PRTM&OMENTUM DX W/WO SPEC BR/WA SPX Surgeons * Zara Spann - Primary Procedure Summary Anesthesia: General ASA: II Estimated Blood Loss: 10 mL Drains: * None in log * Staff: Graphics Production Specialist: Dayana Wilkerson RN Scrub Person: Delicia Arroyo Findings: No intraabdominal pathology identified, no signs of perforation or abscess Complications: None; patient tolerated the procedure well. Specimens Collected: No specimens collected during this procedure. Wound Class: Class II: Clean-Contaminated Blood Products: None Prophylactic Antibiotics: Procedure appropriate prophylactic antibiotic(s) given within 1 hour of surgical incision (two hours if receiving Vancomycin or flouroquinolone) RESS NOTE Observed: 08/09/2024 10:59 PM Status: COMPLETED Source: [employer] [facility] I (Zara Spann) personally supervised the physician casing puller in the evaluation and development of a [...] below ASSESSMENT: patient complex history. Admission to [facility] approximately four days ago. Patient with acute blood loss anemia from a digital ulceration. The patient has undergone multiple transfusions and interventions at [facility]. Most recently the patient underwent clipping of [...] a IVC filter and [facility] for higher level of care. Patient has [...] the Family at bedside. They are agreeable. NURSING NOTE Observed: 08/09/2024 10:38 PM Status: COMPLETED Source: [facility] Patient taken to OR CT ABDOMEN PELVIS W CONTRAST Observed: 0 08/09/2024 10:10 PM Status: F Source: [facility] Patient Name: LAINE GARCIA : 1955 Exam [...] findings was made to Dr. Spann via [employer] Messaging on 08/09/2024 10:10 PM EDT. Report Dictated on Electronically Signed By: Jose D Ayon MD Electronically Signed Date/Time: 08/09/2024 10:10 PM EDT --------ORIGINAL REPORT -------- CT ABDOMEN AND PELVIS CLINICAL INDICATION: CF duodenal perforation TECHNIQUE: CT scan of the abdomen and pelvis with IV contrast. Multiplanar reformations. Dose reduction was employed with automated exposure control. COMPARISON: 08/05/2024 from [facility] FINDINGS: Small RIGHT and moderate to large [...] findings was made to Dano James via [employer] Messaging on 08/09/2024 9:33 PM EDT. Report Dictated on Electronically Signed By: Jose D Ayon MD Electronically Signed Date/Time: 08/09/2024 9:55 PM EDT Patient Name: LAINE GARCIA : 1955 [facility]#: [id number] Exam Date/Time: 08/09/2024 21:15 Procedure: CT ABDOMEN PELVIS W CONTRAST Ordering Provider: EARL JEFFREY Reason For Exam: CF duodenal perforation CT ABDOMEN AND PELVIS CLINICAL INDICATION: CF duodenal perforation TECHNIQUE: CT scan of the abdomen and pelvis with IV contrast. Multiplanar reformations. Dose reduction was employed with automated exposure control. COMPARISON: 08/05/2024 from [facility] FINDINGS: Small RIGHT and moderate to large [...] findings was made to Dano James via [employer] Messaging on 08/09/2024 9:33 PM EDT. Report Dictated on Electronically Signed By: Jose D Ayon MD Electronically Signed Date/Time: 08/09/2024 9:55 PM EDT duodenal perforation COMPREHENSIVE METABOLIC PANEL Collected: 08/09/2024 7 :42 PM Status: F Source: [facility] TYPE CODE TESTS RESULT OUT OF RANGE REFERENCE UNITS LAB [id number] SODIUM 141 136-145 mmol/L LAB 4031748 POTASSIUM 3.2 Low 3.5-5.1 mmol/L Result Comment: Plasma potas sium values may be up to 0.5 mmol/L lower than serum values. LAB 9955771 CHLORIDE 107 98-107 mmol/L LAB 6250484 CARBON DIOXIDE 25 23-31 mmol/L LAB [id number] ANION GAP (ROMAN, CALCULATED) 9 3-13 mmol/L LAB 8590710 UREA NITROGEN 14 9-23 mg/dL LAB 0111073 CREATININE 0.60 Low 0.72-1.25 mg/dL LAB 1791556 GLUCOSE 112 82-115 mg/dL LAB 7810765 CALCIUM 7.4 Low 8.8-10.0 mg/dL LAB 9258714 AST (SGOT) 15 <34 U/L LAB 2175183 ALT <6 <40 U/L LAB 2114402 ALKALINE PHOSPHATASE 52 40-150 U/L LAB 5544706 ALBUMIN 2.1 Low 3.4-4.8 g/dL LAB 8249478 BILIRUBIN, TOTAL 0.6 <1.2 mg/dL LAB 6480756 TOTAL PROTEIN 4.8 Low 6.4-8.3 g/dL LAB 7953089 GLOMERULAR FILTRATION RATE ML/MIN/1.73 SQ M.PREDICTED >90.0 >60.0 mL/min/1. 73m*2 Result Comment: Calculation based on the Chronic Kidney Disease Epidemiology Collaboration (CKD-EPI) equation refit without adjustment for race Performed By: #### [id number] ### # Board Catcher: NICOLA HOWARD ([phone]) [address] PROTHROMBIN TIME Collected: 08/09/2024 7:42 PM Statu s: F Source: [facility] TYPE CODE TESTS RESULT OUT OF RANGE REFERENCE UNITS LAB 5443717 PROTHROMBIN TIME 11.9 9.0-12.0 s LAB 0802659 INR 1.1 0.9-1.1 Result Comment: Recommended Anticoagulant Therapy: SEE BELOW ----- INR of [...] to prevent Myocardial Infarction Performed By: #### [id number], L AB325 #### Board Catcher: NICOLA HOWARD ([phone]) [address] APTT Collected: 7:42 PM Status: F Source: [facility] TYPE CODE TESTS RESULT OUT OF RANGE REFERENCE UNITS LAB 3687793 APTT 30.9 High 20.0-30.5 s Result Comment: ORDER COMMEN TS: NOTE: The therapeutic time for Heparin anticoagulation, based on Xa activity inhibition, is an APTT of 46-80 seconds. Performed By: #### [id number], L AB325 #### Board Catcher: NICOLA HOWARD ([phone]) [facility] ([facility]) [address] [place] [address] CBC WITH AUTO DIFFERENTIAL Collected: 08/09/2024 7:42 PM Status: F Source: [facility] TYPE CODE TESTS RESULT OUT OF RANGE REFERENCE UNITS LAB 4901109 WBC 9.9 3.6-10.7 10*3/uL LAB 6085006 RBC 3.40 Low 4.40-5.90 10*6/uL LAB 7940338 HEMOGLOBIN 10.2 Low 13.0-18.0 g/dL LAB 1830849 HEMATOCRIT 29.6 Low 40.0-52.0 % LAB 8649328 MCV 87.1 77.0-99.0 fL LAB 4157610 MCH 30.0 26.0-34.0 pg LAB 0598313 MCHC 34.5 30.5-36.0 % LAB 6034351 RDW 14.7 11.5-15.0 % LAB 9338799 PLATELET COUNT 207 140-440 10*3/uL LAB 5664052 MPV 9.4 9.0-12.7 fL LAB 254 NRBC 0.0 0.0-2.0 /100 WBCs LAB 8145122 NEUTROPHILS RELATIVE 87.2 High 38.0-82.0 % LAB 2128264 LYMPHOCYTES RELATIVE 5.5 Low 15.0-45.0 % LAB 0042530 MONOCYTES RELATIVE 6.0 5.0-13.0 % LAB 7970654 EOSINOPHILS RELATIVE 0.6 0.0-6.0 % LAB 1459423 BASOPHILS RELATIVE 0.2 0.0-2.0 % LAB 5701515 IMMATURE GRANS % 0.5 0.0-2.0 % LAB 5346580 NEUTROPHILS ABSOLUTE 8.6 High 1.8-7.5 10*3/uL LAB 4371832 LYMPHOCYTES ABSOLUTE 0.5 Low 1.0-4.3 10*3/uL LAB 2020887 MONOCYTES ABSOLUTE 0.6 0.0-0.9 10*3/uL LAB 0457285 EOSINOPHILS ABSOLUTE 0.1 0.0-0.5 10*3/uL LAB 5545914 BASOPHILS ABSOLUTE 0.0 0.0-0.2 10*3/uL LAB 967087 IMMATURE GRANS ABSOLUTE 0.1 High <0.1 10*3/uL Performed By: #### [id number] # ### Board Catcher: NICOLA HOWARD ([phone]) [facility] ([facility]) [address] [place] [address] LACTIC ACID WITH REFLEX Collected: 10/2024 7:42 PM Status: F Source: [facility] TYPE CODE TESTS RESULT OUT OF RANGE REFERENCE UNITS LAB 8552058 LACTIC ACID 0.7 0.5-2.2 mmol/L Performed By: #### [id number] #### Board Catcher: NICOLA HOWARD ([phone]) [facility] ([facility]) [address] [place] [address] BLOOD TYPE AND SCREEN GEL Collected: 08/09/2024 7:42 PM Status: F Source: [facility] TYPE CODE TESTS RESULT OUT OF RANGE REFERENCE UNITS LAB 6163921 ABO GROUPING O LAB 5684606 ANTIBODY SCREEN NEG LAB 0315528 RH TYPE IN BLOOD POS Performed By: #### [id number] ## ## Board Catcher: NICOLA HOWARD ([phone]) [facility] ([facility]) [address] [place] [address] HISTORY AND PHYSICAL NOTE Observed: 10/2024 7:15 PM Status: COMPLETED Source: [facility] Attestation signed by Zara Spann DO at 09/18/2024 6:11 PM I (Zara Spann) personally supervised the physician casing puller in the evaluation and development of a [...] occurred on the date noted below ASSESSMENT: 69 year old male sent from outside hospital with possible perforated ulcer. Patient had complex course at outside hospital. Presented with upper GI bleed and bleeding ulcer. This was clipped, cauterized, and then stented by GI. The patient had chest pain and dyspnea, was sent for a CT which revealed free air and pocket of fluid in the LUQ. ON the Ct the patient was also noted to have a PE - which he has had in the past - and received a IVC filter piror to transfer. The exam in ED was reassuring and the patient had minimal pain, no fever. He does have dyspnea with deep breath with luq pain Discussed findings and plan with family. PLAN: Possible gastric perforation To OR for exploration and EGD Repeat Ct with oral contrast concerning for perf Hx of Basia - perforation may have been at this area. Department of General Surgery Surgical Service Surgery 4 Consult/History and Physical 08/10/2024 CHIEF COMPLAINT: Chief Complaint Patient presents with Shortness of Breath Reason for Admission: Duodenal perforation ([facility]) ([facility]) [K63.1] HISTORY OF PRESENT ILLNESS: Laine Garcia is a 69 y.o. male with significant past medical history of mitral valve prolapse, pulmonary embolism who presents with concern for bleeding duodenal ulcer, possible perforated duodenal ulcer. Patient presents as transfer from [place]. He has had about a month of right upper quadrant and epigastric abdominal pain which increased in severity last Wednesday. He describes melena but no bowel movement since Wednesday. He is taken 81 mg aspirin daily for some time. He is unsure if he has ever been tested for H. pylori. Endorses nausea but no vomiting. No fevers or chills. Was hospitalized last Wednesday at [facility] but report from their facility has been scattered. Patient describes empiric GDA embolization after requiring 4 units PRBCs transfusion. He underwent 2 EGDs first on 08/05 and then again on 08/07 -several clips and other hemostatic agents were necessitated during both scopes, see media tab for EGD reports. There is no report of duodenal perforation however a covered stent was deployed during the second scope for unclear reasons. Biopsies were taken for H. pylori however those results appear to have been pending at time of transfer. For his recent finding of pulmonary emboli and concern for GI bleeding he underwent IVC filter placement today. Upon arrival to our facility patient r is hemodynamically stable and afebrile. Basic labs demonstrate appropriate hemoglobin and platelets no leukocytosis, normal creatinine. Patient did not come with a disc was rescanned with p.o. and IV contrast, no obvious extravasation of enteric contrast around the duodenum. There is a considerable amount of fluid and a small gas in the left upper quadrant as well as a left pleural effusion. No past medical history on file. No past surgical history on file. Medications Prior toAdmission: Current Facility-Administered Medications Medication Dose Route Frequency Provider Last Rate Last Admin lactated Ringer's infusion 50 mL/hr IntraVENous Continuous Teresita Castaneda MD 100 mL/hr at 08/09/242327 Continued by Anesthesia at 08/09/242327 [Transfer Hold] pantoprazole (ProtoNix) 40 mg in sodium chloride (PF) 0.9 % 10 mL injection 40 mg IntraVENous Nightly Teresita Castaneda MD 40 mg at 08/09/242031 Facility-Administered Medications Ordered in Other Encounters Medication Dose Route Frequency Provider Last Rate Last Admin ceFAZolin (Ancef) injection IntraVENous PRN Derrick Grayson APRN - TC OPERATOR 2 g at 08/09/24 2343 dexAMETHasone (PF) (Decadron) injection IntraVENous PRN Derrick Grayson APRN - TC OPERATOR 8 mg at 08/09/24 2333 dexmedeTOMIDine HCl in NaCl (Precedex) injection IntraVENous PRN Derrick Kenan, LION TAMER - TC OPERATOR 12 mcg at 08/09/24 2333 esmolol (Brevibloc) injection IntraVENous PRN Derrick Kenan, LION TAMER - TC OPERATOR 30 mg at 08/09/24 2333 lidocaine PF (Xylocaine) 2 % injection IntraVENous PRN Derrick Kenan, LION TAMER - TC OPERATOR 100 mg at 08/09/24 2333 Propofol (Diprivan) injection IntraVENous PRN Derrick Kenan, LION TAMER - TC OPERATOR 100 mg at 08/09/24 2333 rocuronium (ZeMuron) injection IntraVENous PRN Derrick Kenan, LION TAMER - TC OPERATOR 20 mg at 08/10/24 0001 Succinylcholine Chloride (Anectine) injection IntraVENous PRN Derrick Kenan, LION TAMER - TC OPERATOR 120 mg at 08/09/24 2333 Allergies: Penicillins Social History Socioeconomic History Marital status: No family history on file. REVIEW OF SYSTEMS: Review of Systems PHYSICAL EXAM: Vitals: 08/09/242050 BP: (!) 146/116 Pulse: 90 Resp: 16 Temp: SpO2: 94% No intake/output data recorded. Physical Exam Vitals reviewed. Constitutional: General: He is not in acute distress. Appearance: Normal appearance. He is not ill-appearing. HENT: Head: Normocephalic and atraumatic. Right Ear: External ear normal. Left Ear: External ear normal. Nose: No congestion. Mouth/Throat: Mouth: Mucous membranes are moist. Pharynx: No oropharyngeal exudate. Eyes: General: Right eye: No discharge. Left eye: No discharge. Extraocular Movements: Extraocular movements intact. Conjunctiva/sclera: Conjunctivae normal. Cardiovascular: Rate and Rhythm: Normal rate and regular rhythm. Pulmonary: Effort: Pulmonary effort is normal. Breath sounds: No stridor. Comments: RA Chest: Chest wall: No tenderness. Abdominal: General: Abdomen is flat. There is no distension. Palpations: Abdomen is soft. There is no mass. Tenderness: There is abdominal tenderness (epigastric/ruq). There is no guarding or rebound. Hernia: No hernia is present. Skin: General: Skin is warm and dry. Coloration: Skin is not jaundiced or pale. Neurological: General: No focal deficit present. Mental Status: He is alert and oriented to person, place, and time. Psychiatric: Mood and Affect: Mood normal. Behavior: Behavior normal. DATA: CBC: Lab Results Component Value Date WBC 9.9 08/09/2024 RBC 3.40 (L) 08/09/2024 HGB 10.2 (L) 08/09/2024 HCT 29.6 (L) 08/09/2024 MCV 87.1 08/09/2024 MCH 30.0 08/09/2024 MCHC 34.5 08/09/2024 RDW 14.7 08/09/2024 PLT 207 08/09/2024 MPV 9.4 08/09/2024 BMP: Lab Results Component Value Date NA 141 08/09/2024 K 3.2 (L) 08/09/2024 CL 107 08/09/2024 CO2 25 08/09/2024 BUN 14 08/09/2024 CREATININE 0.60 (L) 08/09/2024 CALCIUM 7.4 (L) 08/09/2024 GLUCOSE 112 08/09/2024 Hepatic Function Panel: Lab Results Component Value Date ALKPHOS 52 08/09/2024 ALT <6 08/09/2024 AST 15 08/09/2024 PROT 4.8 (L) 08/09/2024 BILITOT 0.6 08/09/2024 PT/INR: Lab Results Component Value Date PROTIME 11.9 08/09/2024 INR 1.1 08/09/2024 Troponin: No results found for: TROPONINI LIPASE: No results found for: LIPASE IMAGING: All relevant imaging reviewed by surgery team. CT abdomen pelvis w contrast Addendum Date: 08/09/2024 Patient Name: LAINE GARCIA : 1955 Exam [...] findings was made to Dr. Spann via [employer] Mess[employer] on 08/09/2024 10:10 PM EDT. Report Dictated on Electronically Signed By: Jose D Ayon MD Electronically Signed Date/Time: 08/09/2024 10:10 PM EDT --------ORIGINAL REPORT -------- CT ABDOMEN AND PELVIS CLINICAL INDICATION: CF duodenal perforation TECHNIQUE: CT scan of the abdomen and pelvis with IV contrast. Multiplanar reformations. Dose reduction was employed with automated exposure control. COMPARISON: 08/05/2024 from [facility] FINDINGS: Small RIGHT and moderate to large [...] findings was made to Dano James via [employer] Mess[employer] on 08/09/2024 9:33 PM EDT. Report Dictated on Electronically Signed By: Jose D Ayon MD Electronically Signed Date/Time: 08/09/2024 9:55 PM EDT Result Date: 08/09/2024 Patient Name: LAINE GARCIA : 1955 [facility]#: [id number] Exam Date/Time: 08/09/2024 21:15 Procedure: CT ABDOMEN PELVIS W CONTRAST Ordering Provider: EARL JEFFREY Reason For Exam: CF duodenal perforation CT ABDOMEN AND PELVIS CLINICAL INDICATION: CF duodenal perforation TECHNIQUE: CT scan of the abdomen and pelvis with IV contrast. Multiplanar reformations. Dose reduction was employed with automated exposure control. COMPARISON: 08/05/2024 from [facility] FINDINGS: Small RIGHT and moderate to large [...] glands show no significant abnormality. Parapelvic renal cystsbilaterally, upper pole simple appearing cortical cyst on the RIGHT. No follow-up required. Pancreas shows no significant abnormality. IVC filter noted. There is a stent in the distal stomach and proximal duodenum. Nonaneurysmal aorta. Diffuse bladder wall thickening, but bladder is not well distended. No bowel obstruction. Normal appendix. No ureteral calculus seen. 1. Gas fluid and contrast in the [...] findings was made to Dano James via [employer] on 08/09/2024 9:33 PM EDT. Report Dictated on Electronically Signed By: Jose D Ayon MD Electronically Signed Date/Time: 08/09/2024 9:55 PM EDT ECG 12 lead Sinus rhythm Minimal ST depression, lateral leads ASSESSMENT AND PLAN: This is a 69 y.o. male with concern for bleeding and possibly perforated duodenal ulcer, scan with p.o. contrast today is reassuring however there is a considerable amount of fluid and small gas in the left upper quadrant which is concerning for prior perforation which may be covered now with duodenal stent. - to OR for emergent laparoscopic washout and drain placement - Zosyn - Further plans pending OR - Admit to surg [address] Spann Disclaimers: INFORMED CONSENT: The nature and purpose of the proposed treatment and/or procedure have been discussed. The risks and benefits of the proposed treatment or procedures have been reviewed. Alternatives have been reviewed in addition to the risks and benefits of not receiving treatments or undergoing procedures. Pursuant to this discussion, the patient agrees to undergo the proposed treatment or procedure. Captured images seen in this note are not a substitute for a comprehensive interpretation of the entire data set as reflected by the interpreting physician with regard to radiology, echocardiography, and other diagnostic images. This note may have been dictated using [employer] Edition 2.6 and/or [employer] Voice Recognition Feature. The document was proofread; however, unrecognized voice recognition pad extractor tender errors may be present. -3 Department of General Surgery #[id number] PROGRESS NOTE Observed: 08/09/2024 6:55 PM Status: COMPLETED Source: [facility] Patient: Laine Garcia : 1955 Date of [...] dictating provider for clarification.) Ganesh Earl MD [facility] CHIEF COMPLAINT Chief Complaint Patient presents with [...] findings was made to Dr. Spann via [employer] Mess[employer] on 08/09/2024 10:10 PM EDT. Report Dictated on Electronically Signed By: Jose D Ayon MD Electronically Signed Date/Time: 08/09/2024 10:10 PM EDT --------ORIGINAL REPORT -------- CT ABDOMEN AND PELVIS CLINICAL INDICATION: CF duodenal perforation TECHNIQUE: CT scan of the abdomen and pelvis with IV contrast. Multiplanar reformations. Dose reduction was employed with automated exposure control. COMPARISON: 08/05/2024 from [facility] FINDINGS: Small RIGHT and moderate to large [...] findings was made to Dano James via [employer] on 08/09/2024 9:33 PM EDT. Report [...] findings was made to Dano James via [employer] on 08/09/2024 9:33 PM EDT. Report Dictated [...] Procedure Abnormality Status --------- ------ Comprehensive metabolic ...[[id number]] Please view results for these tests on the individual orders. LACTIC ACID WITH REFLEX COMPREHENSIVE METABOLIC PANEL CALCIUM, IONIZED All other labs were within normal range or not returned as of this dictation. EMERGENCY DEPARTMENT COURSE and DIFFERENTIAL DIAGNOSIS/MDM: Vitals: Vitals: 08/10/24 0048 08/10/24 0100 08/10/24 0101 08/10/24 0115 BP: 137/73 133/81 133/81 129/71 Pulse: 99 87 84 Resp: 20 Temp: (!) 35.8 ?C (96.4 ?F) (!) 35.9 ?C (96.7 ?F) TempSrc: Tympanic Tympanic SpO2: 96% (!) 88% [...] injection 0.5 mg (0.5 mg IntraVENous Given 08/10/2457) oxyCODONE (Roxicodone) immediate release tablet 5 mg [...] sepsis, or septic shock (If yes use .sepsiscoremeasure): No FINAL IMPRESSION 1. Duodenal perforation (CMS/HCC) [...] Medicine Provider Ganesh Earl MD 08/10/24 0118 ED PROVIDER NOTE Observed: 08/09/2024 6:55 PM Status: COMPLETED Source: [facility]Y [facility]PT Patient: Laine Garcia : [...] 374 ms QTC Interval 437 ms P Independence 50 degrees QRS Independence -9 degrees T Wave Independence 34 degrees [place] Interval 142 ms Lactic acid with reflex [...] 1 [facility] 1955 [id number] Exam Date/Time: 08/09/2024 21:15 Procedure: CT ABDOMEN [...] findings was made to Dr. Spann via [employer] on 08/09/2024 10:10 PM EDT. Report Dictated on Electronically Signed By: Jose D Ayon MD Electronically Signed Date/Time: 08/09/2024 10:10 PM EDT --------ORIGINAL REPORT -------- CT ABDOMEN AND PELVIS CLINICAL INDICATION: CF duodenal perforation TECHNIQUE: CT scan of the abdomen and pelvis with IV contrast. Multiplanar reformations. Dose reduction was employed with automated exposure control. COMPARISON: 08/05/2024 from [facility] FINDINGS: Small RIGHT and moderate to large [...] findings was made to Dano James via [employer] on 08/09/2024 9:33 PM EDT. [...] findings was made to Dano James via [employer] on 08/09/2024 9:33 PM EDT. Report Dictated on Electronically Signed By: Jose D Ayon MD Electronically Signed Date/Time: 08/09/2024 9:55 PM EDT : EKG: All EKG's areinterpreted by the Emergency Department Physician in the absence of a dye line operator. see their note for interpretation of EKG. [...] MEDICATIONS: New Prescriptions No medications on file @[facility]([id number]:LAST:1)@ (Please note: Portions of this note were completed with a voice recognition program. Efforts were made to edit the dictations but occasionally words and phrases are mis-transcribed.) Form [id number] Dano James PA-C [employer] Dano James PA-C 08/10/24 0203 ED NURSING NOTE Observed: 08/09/2024 6:55 PM Status: COMPLETED Source: [facility] Pt transferred from [facility] for b/l PE and perforated ulcer. Pt had IVC filter placed today ALLERGIES No Allergies Records Found ENCOUNTERS ADMIT/DISCHARGE ACCOUNT NUMBER ADMITTING ENCOUNTER CLASS LOCATION SOURCE 09/28/2024/09/29/19 [id number] Ambulatory Buildin [id number] [facility] 09/09/2024/09/10/19 25 [id number] Unknown Ambulatory [facility] [place] [address] 09/09/2024/09/16/19 25 [id number] KIERAN PETERSON Inpatient Encounter Buildin [id number] : [facility] H-[id number]: H-6124 A [facility] 09/08/2024/09/09/19 25 [id number] Emergency Buildin [id number] : [id number] d: [id number] [facility] 08/24/2024/08/26/19 25 [id number] VALERIA NEGRON Ambulatory Buildin [id number] : [facility] J-K209Eis: [id number] A [facility] 08/24/2024/08/25/19 25 [id number] Ambulatory Buildin [id number] [facility] 08/09/2024/08/14/19 25 [id number] ZARA SPANN Inpatient Encounter Buildin [id number] : [facility] H-5129Bed: H-5129 A [facility] PAYERS ENCOUNTER GUARANTOR PAYER SUBSCRIBER SOURCE 09/28/2024 Primary Insurance:[facility] FUNDPolicy Number: [id number] Date:[id number] Name:Commercial LAINE GARCIADOB: [id number] [place] [address] [facility] 09/09/2024 LAINE GARCIAB: [id number] [address] [place], [place] [address]Xhd: ~(33 [phone] (HP) Primary Insurance:[facility] GRCFGIIIPolicy Number: [id number] Date:2024-09-09 LAINE Marino LORENEB: [id number] [place], [place] [address]Kws: (HP) [facility] 09/09/2024 Primary Insurance:[facility] Number: [id number] Date:[id number] Name:Commercial LAINE GARCIAB: [id number] [address] [place] [address] [facility] [facility]24 [facility]Policy Number: [id number] Date:2030-13-73Qlbv Name:Commercial LAINE JOSEB: [id number] [place] [address] [facility] 08/24/2024 Primary [facility]Policy Number: [id number] Date:4406-32-60Pjlz Name:Commercial LAINE GARCIADOB: [id number] [place] [address] [facility] 08/24/2024 Primary Insurance[facility] [place] [facility]DPolicy Number: [id number] Date:0568-46-02Lbam Name:Commercial LAINE GARCIADOB: [id number] [address] [place] [address] [facility] 08/09/2024 Primary Insurance:[facility]Policy Number: [id number] Date:6156-44-61Mnod Name:Commercial LAINE GARCIAB: [id number] [place] [address] [facility]
--- NOTE | 2024-12-28 16:05 | PAT.ANE_ITS ---
Pre-Assessment Diagnosis/Proposed Procedure Planned Operative Procedure(s): Colonoscopy,EGD Anesthesia History Anesthesia History - merchandise support associate: Anesthesia History - merchandise support associate Hx Hospitalization Yes: AND 09-27 GI BLEED, 12/28/24 15:38 THEN DEVELOPED BLOOD CLOTS Any Problems With Anesthesia No 12/28/24 15:38 Cholinesterase deficiency No 12/28/24 15:38 You/Your Family Experience No 12/28/24 15:38 fever (hyperthermia) with Relationship Recent Exposure to Contagious No 08/05/24 16:52 Disease Does patient have nerve No 12/28/24 15:38 stimulator Patient instructed to have device shut off --Does patient have Pacemaker or ICD? When Was Last Pacemaker Check QUESTION #4 FULL TEXT: You/Your Family Experience fever (hyperthermia) with Anesthesia Last Oral Intake Last Oral intake: Last Oral Intake NPO since Meds taken in AM with sips of water? Meds patient instructed to take am of surgery PONV PONV - merchandise support associate: PONV - merchandise support associate Female No 12/28/24 15:38 HX of Motion Sickness No 12/28/24 15:38 HX of N/V After Surgery No 12/28/24 15:38 Non-Smoker Yes 12/28/24 15:38 Duration of Surgery greater No 12/28/24 15:38 than 60 minutes Number of Risk Factors 1 12/28/24 15:38 PONV Score Low Risk 12/28/24 15:38 Height & Weight Height & Weight: Anesthesia: Height & Weight Height 5 ft 10 in 09/09/24 06:30 Respiratory Assessment Respiratory Assessment - merchandise support associate: Respiratory Tract Infection Hx - merchandise support associate Hx Respiratory Tract Infection No 12/28/24 15:38 STOP Sleep Apnea STOP Sleep Apnea - merchandise support associate: STOP Sleep Apnea - merchandise support associate Hx Hypertension No 12/28/24 15:38 Hx Sleep Apnea No 12/28/24 15:38 CPAP BIPAP Do you snore loudly (louder No 12/28/24 15:38 than talking or can be heard Do you often feel tired/ No 12/28/24 15:38 fatigued/ sleepy during daytime? Has anyone observed you stop No 12/28/24 15:38 breathing during sleep? STOP Results Negative 12/28/24 15:38 QUESTION #5 FULL TEXT : Do you snore loudly (louder than talking or can be heard through closed doors)? Tobacco Use History Tobacco Use History - merchandise support associate: Tobacco Use History - merchandise support associate Tobacco Use Smoking Status Never smoker 12/28/24 15:38 Hx Tobacco Use No 12/28/24 15:38 Years Smoking Packs Smoked per Day Smoking Cessation Date was within the last 15 years Hx Smoking Cessation Date Hx Smoking Cessation Counseling Hematologic Medial History Hematologic Hx - merchandise support associate: Hematologic Medical Hx - servicing manager Hx of Blood Transfusion Yes 12/28/24 15:38 Hx of Transfusion in last 3 No 12/28/24 15:38 Months Date of Last Transfusion (if within last 3 months) Ever experience any problems No 12/28/24 15:38 with transfusion(s)? Specify any problems Hx of Preganancy in last 3 N/A 12/28/24 15:38 Months Nurse Filling Out Transfusion JZOLLINGE 12/28/24 15:38 & Questions: Date: 12/28/24 12/28/24 15:38 Time: 15:40 12/28/24 15:38 Patient unable to answer at this time (ie. confused, unrespo /Reproduction History /Reproductive History - merchandise support associate: /Reproductive Hx- merchandise support associate Hx Now No 12/28/24 15:38 Gestational Age (in weeks): EDC: Hx Hx Para Hx Section SAB No 12/28/24 15:38 [facility] Medical History (Updated 12/28/24 @ 15:38 by Rosa Brown) Wears glasses Hx of pulmonary embolus History of GI bleed Non-smoker History of DVT (deep vein thrombosis) Mitral valve prolapse Home Medications ?Medication ?Instructions ?Recorded ?Last Taken ?Type multivitamin 1 tab PO DAILY supplement 08/05/24 History omega-3 fatty acids 1,000 mg 2,000 mg PO BID supplemen t 01/22/20 08/05/24 History capsule Allergy/AdvReac Type Severity Reaction Status Date / Time Penicillins AdvReac PT UNABLE Verified 12/28/24 15:29 TO RESPOND-NEEDS F/U Family History Father Myocardial infarction Mother CVA (cerebral vascular accident) Surgical History (Updated 12/28/24 @ 15:38 by Rosa Brown) Hx of colonoscopy H/O shoulder surgery History of repair of hiatal hernia Social History Smoking Status: Never smoker alcohol intake: never Audit: Pertinent Findings Pertinent Findings EKG Perinent findings: 09/09/2024. Normal sinus rhythm with sinus arrhythmia. Nonspecific ST abnormality. Echo (EF%) pertinent findings: 01/22/2020. EF is 60%. RVSP is 25 mmHg. No aortic stenosis noted. Recommendation Anesthesia Recommendation Anesthesia recommendation: OPTIMIZED for anesthesia
[2025-01-01] VITALS (8 sets, daily range): BP systolic 113–160; BP diastolic 56–91; PULSE 43–60; RESP 12–16; TEMP 36.1–36.4; O2SAT 95–100; BMI 25.6
[2025-01-01] MEDS: Lactated Ringers 1,000 ML 15 ML IV (06:03)
--- NOTE | 2025-01-01 06:30 | EGD_PTH ---
PATIENT: LAINE GARCIA LOC: [facility] U#:[id number] AGE/SX: 69/M ROOM: RE01/01/[address]: Dr. Betito Avendano DO : 1955 BED: DIS: 01/01/2025 SPEC #: [id number] RECD: 01/01/25 12:22 STATUS: HAYDER RESharif #: [id number] MANUELITO: 01/01/25 06:[address]: Betito Avendano DEPT: SURGICAL PATHOLOGY RECD BY: John Carbajal ENTERED: 01/01/25 13:23 SP TYPE: EGD BIOPSY KORY DR: Dr. Dante Gurrola DO Tissues: A - Duodenum, NOS Procedures: Surgery Specimen Level IV HEADER OPERATION: EGD with biopsy, colonoscopy PRE-OP DIAGNOSIS: Acute anemia, upper GI bleed, duodenal ulcer TISSUE SUBMITTED: A- Duodenal ulcer biopsy MICROSCOPIC DIAGNOSIS A. Duodenum, biopsy: * Acute inflammation, Primitivo gland hyperplasia, and gastric mucin cell metaplasia, consistent with peptic injury. * Negative for increased intraepithelial lymphocytes. MICROSCOPIC DESCRIPTION Slides are reviewed. GROSS DESCRIPTION A. Received in fixative is one container labeled with the patient's name and designated Duodenal ulcer biopsy. The specimen consists of three irregular fragments of pavon tissue that measure 0.2 to 0.6 cm. The specimen is totally submitted in one cassette. [place] 01/01/2025 CPT:12666
--- NOTE | 2025-01-01 06:36 | PCM.HP.STD ---
HPI - General General Date of Admission: 01/01/25 Date of Service: 01/01/25 Chief Complaint: Peptic ulcer disease HPI Narrative LAINE GARCIA, is a 69 M who presents for surveillance of gastric ulcer abd/pelvis CT 05.06.24 1. Right renal cyst. 2. Left paravertebral cysts. 3. Left hepatic lobe cyst. 4. Other nonacute findings detailed above. [facility] hospitalization 08.05.24 - 08.09.24 abd pain - consulted for GI bleed abd/pelvis CT 08.05.24 1. Punctate gas within the proximal duodenum with mild duodenal thickening, which is nonspecific and may represent duodenitis or non perforated duodenal ulcer. 2. Otherwise unremarkable CT abdomen pelvis. EGD 08.05.24 Normal esophagus. No gross lesions in the entire stomach. Spurting duodenal ulcers with a visible vessel. Injected. Treated with argon plasma coagulation (APC). Non-bleeding duodenal ulcers with no stigmata of bleeding. Treated with argon plasma coagulation (APC). No specimens collected. EGD 08.07.24 Normal esophagus. Normal stomach. Oozing duodenal ulcers with a visible vessel. Injected. Treated with argon plasma coagulation (APC). Prosthesis placed. Clips were placed. 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 No specimens collected. abd/pelvis CT 08.07.24 Interval placement gastroduodenal stent, since prior. No pneumoperitoneum. Otherwise, no acute findings in the abdomen and pelvis. abd/pelvis CT 08.09.24 1. Redemonstrated small to moderate volume ill-defined free fluid and air in the perisplenic/subdiaphragmatic region, suggesting perforated viscus, presumably related to previously suspected duodenal ulcer although this is not definite and proximity of these findings to the stomach is noted. A tiny focus of high density along the medial spleen is new from prior and is suspicious for minimal extravasated PO contrast given a small amount of high-density presumed PO contrast within the stomach. 2. Findings suggestive of cystitis and/or chronic bladder outlet obstruction given prostatomegaly. Correlate with urinalysis. 3. Refer to recent CTA chest report for intrathoracic findings. 4. Additional description as above. Had surgical procedure at [facility] OV 08.22.24 pt reports that he is feeling better since hospitalization and since having procedure to fix hole in abdomen. Pt reports continued gas and bloating discomfort, but reports that this is improving. Reports that bm are returning to normal and has not had blood in stool. [facility] ED 09.09.24 Alt LOC - GI bleed, hypotension, and alt mental status - was transferred to [facility] had two EGDs and was discharged 09.15.24 abd/pelvis CTA 09.09.24 1. No evidence of acute contrast extravasation, to suggest gastrointestinal bleed. 2. No evidence of acute aortic dissection, thrombosis or pseudoaneurysm formation. 3. Interval migration previously noted gastroduodenal stent, now within the distal transverse colon of the splenic flexure. 4. Other findings as described above. OV 11.21.24 pt reports that he is feeling better since hospitalization, has some ongoing left sided abdominal discomfort. Pt reports that he is just here to follow up from his hopsital visit. [facility] Medical History Wears glasses Hx of pulmonary embolus History of GI bleed Non-smoker History of DVT (deep vein thrombosis) Mitral valve prolapse Home Medications ?Medication ?Instructions ?Recorded ?Last Taken ?Type multivitamin 1 tab PO DAILY supplement 01/22/20 12/30/24 History omega-3 fatty acids 1,000 mg 2,000 mg PO BID supplement 01/22/20 12/28/24 History capsule Allergy/AdvReac Type Severity Reaction Status Date / Time Penicillins AdvReac PT UNABLE Verified 01/01/25 05:55 TO RESPOND-NEEDS F/U Family History Father Myocardial infarction Mother CVA (cerebral vascular accident) Surgical History Hx of colonoscopy H/O shoulder surgery History of repair of hiatal hernia Social History Smoking Status: Never smoker alcohol intake: never ROS Constitutional Constitutional: Denies fatigue, fever(s), poor appetite, weight gain or weight loss Gastrointestinal Gastrointestinal: Denies belching, bloating, change in bowel habits, change in stool character, chewing difficulty, coffee ground emesis, constipation, cramping, diarrhea, dyspepsia, dysphagia, early satiety, excessive flatus, fecal incontinence, heartburn, hematemesis, hematochezia, hemorrhoids, loose stools, melena, nausea, odynophagia, rectal bleeding, tenesmus, vomiting or weight changes Vital Signs Vital Signs Vital Signs: 01/01/25 05:56 01/01/25 05:56 Temperature 97.0 F L Temperature Source Temporal Pulse Rate 50 L Respiratory Rate 12 Respiratory Pattern Normal Blood Pressure 160/91 H Blood Pressure Mean 114 Blood Pressure Source Monitor Blood Pressure Position Semi-Fowlers Blood Pressure Location Right Arm Pulse Ox 95 Oxygen Delivery Method Room Air Weight Weight: 178 lb 12.718 oz Body Mass Index (BMI) 25.6 Physical Exam Const alert, oriented x3, no apparent distress and healthy appearing General Appearance: cooperative GI normal to inspection, nondistended, normoactive bowel sounds, soft to palpation, non-tender and non-distended Percussion: normal to percussion Rectal Exam: deferred Assessment & Plan Assessment/Plan (1) Acute anemia: (2) Upper GI bleed: (3) Duodenal ulcer: PLAN: Assessment and Plan Assessment and Plan (1) Pulmonary embolism: Status: Acute Qualifiers: Pulmonary embolism type: multiple subsegmental (without acute cor pulmonale) Qualified Code(s): I26.94 - Multiple subsegmental thrombotic pulmonary emboli without acute cor pulmonale (2) Duodenal ulcer: Status: Acute Plan: 69-year-old gentleman with Acute on chronic anemia due to acute bleeding peptic ulcer secondary to possible NSAID induced injury from aspirin. Originally patient admitted with complaint of abdominal pain and maroon-colored stools as well as syncope. He had EGD which showed normal esophagus and no gross lesions in the entire stomach and showed spurting duodenal ulcers with a visible vessel which was injected and treated with argon plasma coagulation and a nonbleeding duodenal ulcer with no stigmata of bleeding which was also treated with argon plasma coagulation Hemoglobin dropped to 6.4 y so he was transfused with 2 more units of packed red blood cells. On pantoprazole drip His hemoglobin went back up to 10.4 and today is 9.8. He underwent repeat upper endoscopy . And had his duodenal ulcer treated again with epinephrine argon plasma coagulation and cautery. He also had a duodenal stent placed with severe stricture with gastric outlet obstruction. He had a lot of retained gas consistent with ileus after the procedure so NG tube was placed. NG tube came out overnight. His CT scan had showed improvement of gas without any signs of pneumoperitoneum. Patient will be transferred to higher level of care for as it is assumed that he has air underneath the diaphragm secondary to worsening duodenal ulcer. This is recommended by general surgery as he may need a more advanced procedure than we can provide at this institution. He underwent evaluation at outside institution. He ended up having laparoscopic oversewn duodenal perforation repair. From the surgery his duodenal stent had migrated. He is also undergoing a takedown of a Elisa fundoplication and IR coiling of blood vessel feeding duodenal ulcer. He was on iron therapy. He is not on iron therapy at this time. He is only taking Carafate for his duodenal ulcers. His last hemoglobin was 9.7. He has been having some left lower quadrant left upper quadrant pain. He comes back in for scheduled EGD and colonoscopy for evaluation of his abdominal pain. He does take stool softeners because of intermittent constipation. Recommendations: Restart iron therapy with vitamin C twice a day, hold Carafate. Will schedule repeat colonoscopy. He was explained alternatives, risk and benefits of the study bleeding complex, septal, perforation, need for injection. He will have an ASA of 3. (3) Abdominal pain: Status: Acute
--- NOTE | 2025-01-01 06:39 | PCM.PRE.AN2 ---
ASA Classification* ASA Classification ASA Classification: 2 Assessment & Plan Anesthesia* Anesthesia Assessment Anesthesia Assessment: Discussed sedation and/or anesthesia options, risks, benefits, and alternatives with patient/parents/legal guardian/POA. Questions invited. The patient/parents/legal guardian/POA seems to understand and agrees to proceed with anesthesia plan. Reviewed the physical assessment, medical history, allergy history and patient home medications list prior to surgery/procedure/anesthetic and documented any changes. Performed airway and anesthesia risk assessments. Anesthesia Type Anesthesia Type: MAC History Source History Obtained from:: Patient and Chart Anesthesia Focused Assessment* Temperature: 97.0 F Pulse Rate: 50 Blood Pressure: 160/91 Respiratory Rate: 12 Pulse Ox: 95 Oxygen Delivery Method: Room Air Airway Assessment Mouth opens: >3 cm Mallampati Score: II Labs Anesthesia Preop lab: CBC WBC, (4.4-11.0) 10.6 K/mm3 09/09/24, 07:18 RBC, (4.6-6.2) 2.27 M/mm3 L 09/09/24, 07:18 Hgb, (13.0-16.5) 6.6 g/dL L 09/09/24, 07:18 Hct, (40-54) 20.8 % L 09/09/24, 07:18 Plt Count, (150-450) 217 K/mm3 09/09/24, 07:18 CHEMISTRY Potassium, (3.3-5.1) 4.6 mmol/L 09/09/24, 07:18 Sodium, (133-145) 141 mmol/L 09/09/24, 07:18 Magnesium, (1.5-2.2) 1.9 mg/dL 08/09/24, 06:13 Phosphorus, (2.7-4.5) 1.3 mg/dL L* 08/09/24, 06:13 BUN, (4-19) 24 mg/dL H 09/09/24, 07:18 Creatinine, (0.70-1.20) 0.72 mg/dL 09/09/24, 07:18 Glucose, (70-99) 177 mg/dL H 09/09/24, 07:18 COAG PT, (11.7-14.9) 16.0 SECONDS H 08/07/24, 12:26 Pre-Assessment Diagnosis/Proposed Procedure Planned Operative Procedure(s): Colonoscopy,EGD Anesthesia History Anesthesia History - benefits director: Anesthesia History - benefits director Hx Hospitalization Yes: 5 AND 6-25 GI BLEED, 12/28/24 15:38 THEN DEVELOPED BLOOD CLOTS Any Problems With Anesthesia No 12/28/24 15:38 Cholinesterase deficiency No 12/28/24 15:38 You/Your Family Experience No 12/28/24 15:38 fever (hyperthermia) with Relationship Recent Exposure to Contagious No 01/01/25 05:56 Disease Does patient have nerve No 12/28/24 15:38 stimulator Patient instructed to have device shut off --Does patient have Pacemaker No 01/01/25 05:56 or ICD? When Was Last Pacemaker Check QUESTION #4 FULL TEXT: You/Your Family Experience fever (hyperthermia) with Anesthesia Last Oral Intake Last Oral intake: Last Oral Intake NPO since 02:30 01/01/25 05:56 Meds taken in AM with sips of No 01/01/25 05:56 water? Meds patient instructed to take am of surgery PONV PONV - benefits director: PONV - benefits director Female No 12/28/24 15:38 HX of Motion Sickness No 12/28/24 15:38 HX of N/V After Surgery No 12/28/24 15:38 Non-Smoker Yes 12/28/24 15:38 Duration of Surgery greater No 12/28/24 15:38 than 60 minutes Number of Risk Factors 1 12/28/24 15:38 PONV Score Low Risk 12/28/24 15:38 Height & Weight Height & Weight: Anesthesia: Height & Weight Height 5 ft 10 in 01/01/25 05:56 Weight: 81.1 kg 01/01/25 05:56 Body Mass Index (BMI) 25.6 01/01/25 05:56 Respiratory Assessment Respiratory Assessment - benefits director: Respiratory Tract Infection Hx - benefits director Hx Respiratory Tract Infection No 12/28/24 15:38 STOP Sleep Apnea STOP Sleep Apnea - benefits director: STOP Sleep Apnea - benefits director Hx Hypertension No 12/28/24 15:38 Hx Sleep Apnea No 12/28/24 15:38 CPAP BIPAP Do you snore loudly (louder No 12/28/24 15:38 than talking or can be heard Do you often feel tired/ No 12/28/24 15:38 fatigued/ sleepy during daytime? Has anyone observed you stop No 12/28/24 15:38 breathing during sleep? STOP Results Negative 12/28/24 15:38 QUESTION #5 FULL TEXT : Do you snore loudly (louder than talking or can be heard through closed doors)? Tobacco Use History Tobacco Use History - benefits director: Tobacco Use History - benefits director Tobacco Use Smoking Status Never smoker 12/28/24 15:38 Hx Tobacco Use No 12/28/24 15:38 Years Smoking Packs Smoked per Day Smoking Cessation Date was within the last 15 years Hx Smoking Cessation Date Hx Smoking Cessation Counseling Hematologic Medial History Hematologic Hx - benefits director: Hematologic Medical Hx - paper cleaner Hx of Blood Transfusion Yes 12/28/24 15:38 Hx of Transfusion in last 3 No 12/28/24 15:38 Months Date of Last Transfusion (if within last 3 months) Ever experience any problems No 12/28/24 15:38 with transfusion(s)? Specify any problems Hx of Preganancy in last 3 N/A 12/28/24 15:38 Months Nurse Filling Out Transfusion JZOLLINGE 12/28/24 15:38 & Questions: Date: 12/28/24 12/28/24 15:38 Time: 15:40 12/28/24 15:38 Patient unable to answer at this time (ie. confused, unrespo /Reproduction History /Reproductive History - benefits director: /Reproductive Hx- benefits director Hx Now No 12/28/24 15:38 Gestational Age (in weeks): EDC: Hx Hx Para Hx Section SAB No 12/28/24 15:38 Active Medications Active Medications: Current Medications Generic Name Dose Route Start Last Admin Trade Name Freq PRN Reason Stop Dose Admin Lactated Ringer's 1,000 mls @ 15 mls/hr 01/01/25 05:45 01/01/25 06:03 IV 15 mls/hr .Q48H MARSHA Administration PFSH Medical History Wears glasses Hx of pulmonary embolus History of GI bleed Non-smoker History of DVT (deep vein thrombosis) Mitral valve prolapse Home Medications ?Medication ?Instructions ?Recorded ?Last Taken ?Type multivitamin 1 tab PO DAILY supplement 01/22/20 12/30/24 History omega-3 fatty acids 1,000 mg 2,000 mg PO BID supplement 01/22/20 12/28/24 History capsule Allergy/AdvReac Type Severity Reaction Status Date / Time Penicillins AdvReac PT UNABLE Verified 01/01/25 05:55 TO RESPOND-NEEDS F/U Family History Father Myocardial infarction Mother CVA (cerebral vascular accident) Surgical History Hx of colonoscopy H/O shoulder surgery History of repair of hiatal hernia Social History Smoking Status: Never smoker alcohol intake: never Addt'l Information Additional Findings: NSR on EKG Review of Systems (Anesthesia) ROS Narrative System reviewed and no additional complaints, except as documented. Physical Exam Const alert, oriented x3 and average body habitus Orientation / Consciousness: awake Neck full ROM Resp normal respiratory effort Auscultation: clear to auscultation bilaterally Cardio regular rate Neuro oriented x3 and moves all extremities
--- NOTE | 2025-01-01 07:21 | OP.EGD_ITS ---
Patient Name: Javi Ibarra Procedure Date: 01/01/2025 6:36 AM Date of : 1955 Age: 69 Procedure: Upper GI endoscopy Indications: Iron deficiency anemia Providers: DO Helena Strong MD: Dante Gurrola Medicines: Monitored Anesthesia Care Patient Profile: This is a 69 year old male. Refer to note in patient chart for documentation of history and physical. Patient has symptoms of acute epigastric abdominal pain and chronic epigastric abdominal pain. Complications: No immediate complications. Procedure: Pre-Anesthesia Assessment: - Prior to the procedure, a History and Physical was performed, and patient medications and allergies were reviewed. The patient is competent. The risks and benefits of the procedure and the sedation options and risks were discussed with the patient. All questions were answered and informed consent was obtained. Patient identification and proposed procedure were verified by the physician in the pre-procedure area. Mental Status Examination: alert and oriented. Airway Examination: normal oropharyngeal airway and neck mobility. Respiratory Examination: clear to auscultation. CV Examination: normal. Prophylactic Antibiotics: The patient does not require prophylactic antibiotics. Prior Anticoagulants: The patient has taken no anticoagulant or antiplatelet agents. ASA Grade Assessment: II - A patient with mild systemic disease. After reviewing the risks and benefits, the patient was deemed in satisfactory condition to undergo the procedure. The anesthesia plan was to use monitored anesthesia care (MAC). Immediately prior to administration of medications, the patient was re-assessed for adequacy to receive sedatives. The heart rate, respiratory rate, oxygen saturations, blood pressure, adequacy of pulmonary ventilation, and response to care were monitored throughout the procedure. The physical status of the patient was re-assessed after the procedure. After obtaining informed consent, the endoscope was passed under direct vision. Throughout the procedure, the patient's blood pressure, pulse, and oxygen saturations were monitored continuously. The Colonoscope was introduced through the mouth, and advanced to the duodenal bulb. The upper GI endoscopy was accomplished without difficulty. The patient tolerated the procedure well. Scope In: 6:59:18 AM Scope Out: 7:02:04 AM Total Procedure Duration Time 0 hours 2 minutes 46 seconds Findings: The examined esophagus was normal. The entire examined stomach was normal. One non-bleeding cratered duodenal ulcer with no stigmata of bleeding was found in the duodenal bulb and in the first portion of the duodenum. The lesion was 20 mm in largest dimension. Biopsies were taken with a cold forceps for histology. Verification of patient identification for the specimen was done. Estimated blood loss was minimal. An acquired benign-appearing, intrinsic severe stenosis was found in the duodenal bulb and in the first portion of the duodenum and was non-traversed. Impression: - Normal esophagus. - Normal stomach. - Non-bleeding duodenal ulcer with no stigmata of bleeding. Biopsied. - Acquired duodenal stenosis. Recommendation: - Discharge patient to home. - Resume previous diet. - Continue present medications. - Await pathology results. Procedure Code(s): --- Professional --- 70127, Esophagogastroduodenoscopy, flexible, transoral; with biopsy, single or multiple CPT copyright 2021 [employer]. All rights reserved. The codes documented in this report are preliminary and upon pest control service technician review may be revised to meet current compliance requirements. Betito Avendano DO 01/01/2025 7:20:36 AM This report has been signed electronically. Number of Addenda: 0 Note Initiated On: 01/01/2025 6:36 AM
--- NOTE | 2025-01-01 07:21 | OP.PROVAT_ITS ---
01/01/2025 Dante Gurrola Re : Upper GI endoscopy procedure for Javi Ibarra Dear Izabela This procedure was performed on Wednesday, January 01, 2025. My impressions and recommendations are as follows: Impressions : - Normal esophagus. - Normal stomach. - Non-bleeding duodenal ulcer with no stigmata of bleeding. Biopsied. - Acquired duodenal stenosis. Recommendations : - Discharge patient to home. - Resume previous diet. - Continue present medications. - Await pathology results. My findings are described in the full procedure note, which is enclosed. If I can be of further assistance, please feel free to contact me at . Sincerely, Betito Avendano, 01/01/2025 7:20:36 AM This report has been signed electronically.
--- NOTE | 2025-01-01 07:23 | OP.PROVAT_ITS ---
01/01/2025 Dante Gurrola Re : Colonoscopy procedure for Javi Ibarra Dear Izabela This procedure was performed on Wednesday, January 01, 2025. My impressions and recommendations are as follows: Impressions : - Diverticulosis in the recto-sigmoid colon and in the sigmoid colon. - The examination was otherwise normal on direct and retroflexion views. - No specimens collected. Recommendations : - Discharge patient to home. - Resume previous diet. - Continue present medications. - Repeat colonoscopy in 10 years for screening purposes. My findings are described in the full procedure note, which is enclosed. If I can be of further assistance, please feel free to contact me at . Sincerely, Betito Avendano, 01/01/2025 7:22:35 AM This report has been signed electronically.
--- NOTE | 2025-01-01 07:23 | OP.COLON_ITS ---
Patient Name: Javi Ibarra Procedure Date: 01/01/2025 7:02 AM Date of : 1955 Age: 69 Procedure: Colonoscopy Indications: Screening for colorectal malignant neoplasm, This is the patient's first colonoscopy Providers: Betito Avendano DO Referring MD: Dante Gurrola Medicines: Monitored Anesthesia Care Patient Profile: This is a 69 year old male. Refer to note in patient chart for documentation of history and physical. Patient has symptoms of acute epigastric abdominal pain and chronic epigastric abdominal pain. Last Colonoscopy: none. The patient's first colonoscopy is today. Complications: No immediate complications. Procedure: Pre-Anesthesia Assessment: - Prior to the procedure, a History and Physical was performed, and patient medications and allergies were reviewed. The patient is competent. The risks and benefits of the procedure and the sedation options and risks were discussed with the patient. All questions were answered and informed consent was obtained. Patient identification and proposed procedure were verified by the physician in the pre-procedure area. Mental Status Examination: alert and oriented. Airway Examination: normal oropharyngeal airway and neck mobility. Respiratory Examination: clear to auscultation. CV Examination: normal. Prophylactic Antibiotics: The patient does not require prophylactic antibiotics. Prior Anticoagulants: The patient has taken no anticoagulant or antiplatelet agents. ASA Grade Assessment: II - A patient with mild systemic disease. After reviewing the risks and benefits, the patient was deemed in satisfactory condition to undergo the procedure. The anesthesia plan was to use monitored anesthesia care (MAC). Immediately prior to administration of medications, the patient was re-assessed for adequacy to receive sedatives. The heart rate, respiratory rate, oxygen saturations, blood pressure, adequacy of pulmonary ventilation, and response to care were monitored throughout the procedure. The physical status of the patient was re-assessed after the procedure. After I obtained informed consent, the scope was passed under direct vision. Throughout the procedure, the patient's blood pressure, pulse, and oxygen saturations were monitored continuously. The Colonoscope was introduced through the anus and advanced to the cecum, identified by appendiceal orifice and ileocecal valve. The colonoscopy was performed without difficulty. The patient tolerated the procedure well. The quality of the bowel preparation was adequate. The ileocecal valve, appendiceal orifice, and rectum were photographed. Scope In: 7:03:15 AM Scope Withdrawal Time 0 hours 7 minutes 3 seconds Scope Out: 7:15:10 AM Total Procedure Duration Time 0 hours 11 minutes 55 seconds Findings: The perianal and digital rectal examinations were normal. A few small-mouthed diverticula were found in the recto-sigmoid colon and sigmoid colon. The exam was otherwise without abnormality on direct and retroflexion views. Impression: - Diverticulosis in the recto-sigmoid colon and in the sigmoid colon. - The examination was otherwise normal on direct and retroflexion views. - No specimens collected. Recommendation: - Discharge patient to home. - Resume previous diet. - Continue present medications. - Repeat colonoscopy in 10 years for screening purposes. Procedure Code(s): --- Professional --- G0121, Colorectal cancer screening; colonoscopy on individual not meeting criteria for high risk CPT copyright 2021 [employer]. All rights reserved. The codes documented in this report are preliminary and upon media intern review may be revised to meet current compliance requirements. Betito Avendano DO 01/01/2025 7:22:35 AM This report has been signed electronically. Number of Addenda: 0 Note Initiated On: 01/01/2025 7:02 AM
--- NOTE | 2025-01-01 07:31 | PCM.POST.ANE ---
Anesthesia: Postop Eval I Current Vital Signs Temperature: 97.4 F Pulse Rate: 47 Blood Pressure: 113/56 Respiratory Rate: 16 Pulse Ox: 100 Oxygen Delivery Method: Room Air Assessment Airway patent: Yes Spontaneous unlabored respirations: Yes Mental status: Asleep nausea: No Vomiting: No Anesthesia Complication: No Fluid Hydration Crystalloid volume administer (ml): 700 Total IV fluid infused: 700 Progress Note Anesthesia document: Postop Eval 1 completed: Yes
--- NOTE | 2025-01-01 07:43 | PCM.POSTANE2 ---
Anesthesia Postop Eval I Sum Postop Eval Completion status Anesthesia document: Postop Eval 1 completed: Yes Anesthesia Postop Eval I Summary Anesthesia Postop Eval I Summary: Anesthesia Postop Eval I: Assessment Summary Airway patent Yes 01/01/25 07:35 [email or web address] Spontaneous unlabored Yes 01/01/25 07:35 [email or web address] respirations Mental status Asleep 01/01/25 07:35 [email or web address] nausea No 01/01/25 07:35 [email or web address] Vomiting No 01/01/25 07:35 [email or web address] Anesthesia Postop Eval I: Fluid Summary Crystalloid volume administer 700 01/01/25 07:35 [email or web address] (ml) Colloids volume administered ( ml) Blood Product volume administered (ml) Total IV fluid infused 700 01/01/25 07:35 [email or web address] Anesthesia Postop Eval I: Summary Notes Anesthesia Complication No 01/01/25 07:35 [email or web address] Anesthesia Complication Comment: Post-operative progress note Anesthesia: Postop Eval II Evaluation Mental status: Awake Pain Level: 0 nausea: No Vomiting: No Complications Anesthesia Complication: No
== END 2025-01-01 08:58 | disposition home or self-care (01) ==
LOC: EN 05:26 → AC 05:27
PROVIDERS: PCP Family Medicine; Referring Provider Family Medicine; Visit Provider Internal Medicine Gastroenterology
PROC: 0DJD8ZZ Inspection of Lower Intestinal Tract, Via Natural or Artificial Opening Endoscopic (ICD-10-PCS; CPT 45378; principal; 2025-01-01 06:25)
DX: Z12.11 Encounter for screening for malignant neoplasm of colon (principal); I26.94 Multiple subsegmental thrombotic pulmonary emboli without acute cor pulmonale; K26.9 Duodenal ulcer, unspecified as acute or chronic, without hemorrhage or perforation; K57.30 Diverticulosis of large intestine without perforation or abscess without bleeding; D64.9 Anemia, unspecified; K31.5 Obstruction of duodenum; R10.9 Unspecified abdominal pain; K29.80 Duodenitis without bleeding; K31.89 Other diseases of stomach and duodenum
CPT/HCPCS: 43239; 45378; 88305; J2405

== ENCOUNTER 2025-02-22 21:11 | Emergency (ER) | payer OTHER, SELFPAY ==
[2025-02-22 21:12] VITALS: BP 124/82; PULSE 62; RESP 18; TEMP 36.9; O2SAT 98; BMI 26.3
[2025-02-22 21:15] VITALS: BP 144/98; PULSE 58; RESP 15; O2SAT 100
--- OUTSIDE RECORDS SUMMARY | 2025-02-22 21:41 | XMS RPT_ITS | CCD ---
Author Organization [facility] Care Team Providers Care [employer]orer [employer] Name Role Phone LAINE HARMAN DO Admitting Unavailable LAINE HARMAN DO Attending Unavailable LAINE HARMAN DO Primary Care Unavailable DANTE GURROLA MD Referring Unavailable DANTE GURROLA MD Consulting Unavailable PROVIDER, UNKNOWN Consulting Unavailable Dr. Dante Gurrola DO Primary Care Provider Dr. Alf Santiago DO Attending Provider Dr. Alf Santiago DO Emergency Provider Dr. Dante Gurrola DO Referring Provider Gaurang OIL BURNER-CRuba Attending Provider Wally Valdez MD Emergency Provider Vicenta OWENS, Dr. Derrick Burgos Admit Provider Vicenta OWENS, Dr. Derrick Burgos Other Provider Dr. Brandie Spears DO Attending Provider Cass OWENS, Dr. Melonie Fernandez Other Provider Dr. Hector Bhakta MD Other Provider [phone] Dr. Lebron Francisco MD Other Provider [phone] [place] OIL BURNER-CR[place]ana Primary Care Provider Dr. Betito Avendano DO Attending Provider Cass OWENS, Dr. Melonie Fernandez Attending Provider Dr. Brandie Spears DO Other Provider Maryam OWENS, Dr. Diana Attending Provider Unavailable Primary Care Provider Unavailabl e Izabela, Dante Primary Care Provider Vicenta OWENS, Dr. Derrick Burgos Referring Provider Regan MONCADA, Dr. Diego Referring Provider Manuela Miller Attending Provider Izabela MONCADA, Dr. Howell Primary Care Provider [phone] Dr. Sy Urena MD Emergency Provider PROVIDER, UNKNOWN Attending Unavailable PROVIDER, UNKNOWN Admitting Unavailable Alfie OWENS, Dr. Dan Attending Provider POZARI, ZARA Attending Unavailable IZABELA, DANTE Primary Care Unavailable POZSGSONA, ZARA Attending Unavailable IZABELA, DANTE Primary Care Unavailable IZABELA, DANTE Primary Care Unavailable VALERIA NEGRON Admitting Unavailable VALERIA NEGRON Attending Unavailable SY URENA Referring Unavailable IZABELA, DANTE Primary Care Unavailable KIERAN PETERSON Admitting Unavailable JOSE PECK Attending Unavailable NONE, PCP Referring Unavailable POZSGAY, ZARA Attending Unavailable POZSGAYZARA Admitting Unavailable IZABELA, DANTE Primary Care Unavailable LAINE MOYA Attending Unavailable Izabela MONCADA, Dr. Howell Primary Care Physician Dr. Sy Urena MD Attending Physician [phone] Dr. Sy Urena MD Emergency Department Physician Dr. Dante Gurrola DO Referring Provider [phone] Dr. Betito Avendano DO Attending Physician [phone] Dr. Betito Avendano DO Nurse Practitioner Izabela, Dante Referring Unavailable Ruba Merlos Attending Unavailable Izabela, Dante Primary Care Unavailable Izabela, Dante Primary Care Unavailable Lebron Francisco Attending Unavailable Brandie Spears Referring Unavailable Derrick Yadav Consulting Unavailable Derrick Yadav Admitting Unavailable Melonie Odell Consulting Unavailable Hector Bhakta Consulting Unavailable Lebron Francisco Consulting Unavailable Brandie Spears Consulting Unavailable Brandie Spears Attending Unavailable Izabela, Dante Referring Unavailable Betito Avendano Consulting Unavailable Friend, Betito Attending Unavailable Izabela, Dante Primary Care Unavailable Friend, Betito Attending Unavailable [place] OIL BURNER, Rachana Malone Primary Care UnavailDerrick Hernandez Attending Unavailable Derrick Yadav Referring Unavailable Melonie Odell Attending Unavailable Izabela, Dante Primary Care Unavailable Izabela, Dante Referring Unavailable Friend, Betito Attending Unavailable Izabela, Dante Primary Care Unavailable Izabela, Dante Referring Unavailable Manuela Vazquez Attending Unavailable Izabela, Dante Referring Unavailable Izabela, Dante Primary Care Unavailable Friend, Betito Attending Unavailable Izabela, Dante Referring Unavailable Friend, Betito Attending Unavailable Izabela, Dante Primary Care Unavailable Izabela, Dante Primary Care Unavailable Sy Urena Attending Unavailable Izabela, Dante Primary Care Unavailable Alf Santiago Attending Unavailable Derrick Yadav Admitting Unavailable Brandie Spears Attending Unavailable Derrick Yadav Consulting Unavailable Izabela, Dante Primary Care Unavailable RonnaamKarinea Rebecca Consulting Unavailable Hector Bhakta Consulting Unavailable Lebron Francisco Consulting Unavailable Allergies Allergy Classification Reported Allergen(s) Allergy Type Date of Onset Reaction(s) Facility (1 source) Penicillin Drug Allergy [facility] Repository (6 sources) Penicillins Propensity to adverse reactions 5 PT UNABLE TO RESPOND-NEEDS F/U [facility] Comment on above: pt states he was you ng and doesnt remember. (12 sources) Penicillins Propensity to adverse reactions 5 [facility] (1 source) Penicillins Drug allergy (disorder) 5 [facility] Repository Medications Current Medications Medication Drug Class(es) Dates Sig (Normalized) Sig (Original) docusate sodium 100 mg oral capsule (20 sources) Start: 09-08-2024 End: 10-08-2024 take 1 capsule by mouth every twelve hours docusate sodium (Colace) 100 MG capsule Take 1 capsule (100 mg) by mouth every 12 hours. 60 capsule 09/08/2024 10/08/2024 Active Start: 05-06-2024 End: 09-08-2024 take 1 capsule by mouth twice daily Docusate Sodium (Colace) 100 mg capsule Discontinued 100 mg PO TWICE A DAY 30 0 May 06, 2024 1:00am July 25, 2024 9:24am ferrous fumarate-vitamin C ER (Mickey-Sequeles 65-25) (3 sources) take 1 tablet by mouth twice daily at mealtime ferrous fumarate-vitamin C ER (Mickey-Sequeles 65-25) Take 1 tablet by mouth 2 times daily (with meals). Do not crush, chew, or split. Active Multiple Vitamins-Minerals (multivitamin with minerals) tablet (12 sources) take 1 tablet by mouth once daily Multiple Vitamins-Minerals (multivitamin with minerals) tablet Take 1 tablet by mouth daily. Active Multivitamin 1 EACH tablet (6 sources) Start: 01-22-2020 Start: 01-22-2020 Multivitamin 1 EACH tablet Active 1 {tbl} PO DAILY January 22, 2020 12:00am supplement Start: 01-22-2020 Multivitamin 1 EACH tablet Active 1 {tbl} PO DAILY January 22, 2020 12:00am niacin 500 mg oral tablet (3 sources) Nicotinic Acid take 1 tablet by mouth once daily at breakfast niacin 500 MG tablet Take 500 mg by mouth daily (with breakfast). Active Amboy-3 Fatty Acids 1,000 MG capsule (6 sources) Start: 01-22-2020 take 1 capsule by mouth twice daily Start: 01-22-2020 take 1 capsule by mo [facility] twice daily [place]-3 Fatty Acids 1,000 MG capsule Active 2000 mg PO TWICE A DAY January 22, 2020 12:00am supplement Start: 01-22-2020 take 1 capsule by mo ut twice daily [place]oy-3 Fatty Acids 1,000 MG capsule Active 2000 mg PO TWICE A DAY January 22, 2020 12:00am pantoprazole 40 mg delayed release oral tablet (5 sources) Proton Pump Inhibitor Start: 09-15-2024 End: 10-15-2024 take 1 tablet by mouth twice daily pantoprazole (ProtoNix) 40 MG EC tablet Take 1 tablet (40 mg) by mouth 2 times daily. Do not crush, chew, or split. 60 tablet 09/15/2024 10:38 AM EDT 09/15/2024 10/15/2024 Active vitamin b12 0.1 mg oral tablet (3 sources) Vitamin B12 take 1 tablet by mouth once daily cyanocobalamin (Vitamin B-12) 100 MCG tablet Take 100 mcg by mouth daily. Active Completed/Discontinued Medications Medication Drug Class(es) Dates Sig (Normalized) Sig (Original) Acetaminophen (4 sources) Start: 09-09-2024 End: 09-13-2024 take 1000 mg intravenously every six hours as needed 1,000 mg, IntraVENous, at 400 mL/hr, Administer over 15 Minutes, Every 6 hours PRN, Fever and Pain while NPO, Starting on 09/09/24 at 1038, For 4 days Start: 08-10-2024 End: 08-13-2024 take 1 tablet by mouth every six hours 650 mg, Oral, Every 6 hours, First dose on Leigh Ann 08/10/24 at 0200 acetaminophen 325 mg / oxyCODONE hydrochloride 5 mg oral tablet (9 sources) Opioid Agonist Start: 09-08-2024 End: 11-21-2024 Oxycodone-Acetaminophen (Percocet) 5-325 mg tablet Discontinued 1 {tbl} PO EVERY 6 HOURS as needed for pain 0 September 09, 2024 12:00am November 21, 2024 7:42am albuterol 0.833 mg/ml / ipratropium bromide 0.167 mg/ml inhalation solution (2 sources) Anticholinergi c, beta2-Adrenerg ic Agonist Start: 08-12-2024 End: 08-13-2024 3 mL, Nebulization, Every 8 hours, First dose (after last modification) on 08/12/24 at 0730 apixaban 5 mg oral tablet (11 sources) Factor Xa Inhibitor Start: 09-01-2024 End: 11-21-2024 take 1 tablet by mouth twice daily Apixaban (Eliquis) 5 mg tablet Discontinued 5 mg PO TWICE A DAY September 01, 2024 12:00am November 21, 2024 7:42am Start: 08-25-2024 End: 11-30-2024 take 2 tablets by mouth twice daily in the evening, then take 1 tablet by mouth twice daily apixaban (Eliquis) 5 MG tablet Take 2 tablets (10 mg) by mouth 2 times daily for 7 days, THEN 1 tablet (5 mg) 2 times daily. 208 tablet 08/25/2024 4:28 PM EDT 08/25/2024 09/15/2024 Discontinued (Stop taking at discharge) aspirin 81 mg chewable tablet (8 sources) Platelet Aggregation Inhibitor, Nonsteroidal Anti-inflammatory Drug Start: 01-22-2020 End: 08-22-2024 take 1 tablet by mouth once daily Aspirin 81 MG tablet,chewable Discontinued 81 mg PO DAILY January 22, 2020 12:00am August 22, 2024 9:18am [facility] End: 08-13-2024 take 1 tablet by mouth once daily aspirin 81 MG EC tablet Take 81 mg by mouth daily. 08/13/2024 Discontinued (Stop taking at discharge) calcium chloride 0.0014 meq/ml / potassium chloride 0.004 meq/ml / sodium chloride 0.103 meq/ml / sodium lactate 0.028 meq/ml injectable solution (8 sources) Start: 09-09-2024 End: 09-13-2024 take 75 mL intravenously every hour 75 mL/hr, IntraVENous, Continuous, Starting on Wed09/12/24 at 0000, To start when NPO Start: 08-09-2024 End: 08-13-2024 take 75 mL intravenously every hour 75 mL/hr, IntraVENous, Continuous, Starting on Wed08/10/24 at 0200 Capsicum (Cayenne) (6 sources) Start: 01-22-2020 End: 08-05-2024 take 1 capsule by mouth once daily Capsicum (Cayenne) 450 MG capsule Discontinued 450 mg PO DAILY January 22, 2020 12:00am August 05, 2024 2:35pm supplemetn Start: 01-22-2020 End: 08-05-2024 take 1 capsule by mouth once daily Capsicum (Cayenne) 450 MG capsule Discontinued 450 mg PO DAILY January 22, 2020 12:00am August 05, 2024 2:35pm diatrizoate meglumine-sodium (Gastrografin) 66-10 % solution 30 mL (6 sources) Start: 08-11-2024 End: 08-11-2024 take 30 mL by mouth once 30 mL, Oral, Once, On Wed08/11/24 at 1045, For 1 dose, Administered at the time of the exam. Start: 08-10-2024 End: 08-10-2024 take 30 mL by mouth once 30 mL, Oral, Once, On 11/27 at 0915, For 1 dose, Administered at the time of the exam. Start: 08-09-2024 End: 08-09-2024 30 mL, Oral, Once, On 10/27 at 1950, For 1 dose, 1. INPATIENTS 30ML GASTROGRAFIN MIXED IN 32OZ OF WATER-DRINK HALF 2 HRS BEFORE AND THE HALF 1HR BEFORE EXAM. 2. EMERGENCY PATIENTS 30ML GASTROGRAFIN MIXED IN 32OZ OF WATER AND WAIT 1 HOUR THEN SCAN. dicyclomine hydrochloride 20 mg oral tablet (17 sources) Anticholinergic Start: 05-06-2024 End: 09-15-2024 take 1 tablet by mouth three times daily Dicyclomine 20 mg tablet Discontinued 20 mg PO THREE TIMES A DAY 14 0 May 06, 2024 1:00am July 25, 2024 9:24am doxycycline hyclate 100 mg oral capsule (4 sources) Tetracycline-class Drug Start: 08-13-2024 End: 08-25-2024 doxycycline (Vibramycin) 100 MG capsule Take 1 capsule (100 mg) by mouth 2 times daily for 10 days. Take with at least 8 ounces (large glass) of water, do not lie down for 30 minutes after 20 capsule 08/13/2024 08/25/2024 Discontinued (Therapy completed) 0.4 ml enoxaparin sodium 100 mg/ml prefilled syringe (4 sources) Low Molecular Weight Heparin Start: 09-11-2024 End: 09-15-2024 inject 40 mg by subcutaneous injection every twenty-four hours 40 mg, SubCUTAneous, Every 24 hours scheduled (Daily), First dose on Wed09/11/24 at 0900, Indication of Use: Prophylaxis-DVT/PE, Indications: Prophylaxis of Venous Thromboembolism Start: 08-10-2024 End: 08-13-2024 inject 40 mg by subcutaneous injection every twenty-four hours 40 mg, SubCUTAneous, Every 24 hours scheduled (Daily), First dose on Wed08/10/24 at 0900, Indication of Use: Prophylaxis-DVT/PE, Indications: Prophylaxis of Venous Thromboembolism 2 ml fentaNYL 0.05 mg/ml injection (4 sources) Opioid Agonist Start: 09-12-2024 End: 09-12-2024 IntraVENous, As needed, Starting on Wed09/12/24 at 1044, Intraprocedure Start: 09-09-2024 End: 09-09-2024 IntraVENous, Code/trauma/sed ation medication, Starting on Wed09/09/24 at 1241 1 ml HYDROmorphone hydrochloride 1 mg/ml cartridge (6 sources) Opioid Agonist Start: 08-10-2024 End: 08-13-2024 HYDROmorphone (Dilaudid) injection 0.5 mg (2 sources) Start: 09-09-2024 End: 09-15-2024 take 0.5 mg intravenously every four hours as needed for pain HYDROmorphone (Dilaudid) injection 0.5 mg iopamidol (Isovue-300) 61 % injection 32 mL (2 sources) Start: 09-12-2024 End: 09-12-2024 32 mL, Intra-arTERial, IMG once PRN, contrast, Starting on Wed09/12/24 at 1129, For 1 dose iopamidol (Isovue-370) 76 % injection 100 mL (2 sources) Start: 08-09-2024 End: 08-09-2024 take 100 mL intravenously once as needed 100 mL, IntraVENous, IMG once PRN, contrast, Starting on Wed08/09/24 at 2118, For 1 dose iopamidol (Isovue-370) 76 % injection 75 mL (6 sources) Start: 09-11-2024 End: 09-11-2024 take 75 mL intravenously once as needed 75 mL, IntraVENous, IMG once PRN, contrast, Starting on Wed09/11/24 at 1419, For 1 dose Start: 09-08-2024 End: 09-08-2024 take 75 mL intravenously once as needed 75 mL, IntraVENous, IMG once PRN, contrast, Starting on Wed09/08/24 at 1538, For 1 dose Start: 08-11-2024 End: 08-11-2024 take 75 mL intravenously once as needed 75 mL, IntraVENous, IMG once PRN, contrast, Starting on Wed08/11/24 at 1457, For 1 dose 10 ml lidocaine hydrochloride 10 mg/ml injection (2 sources) Antiarrhythmic, Amide Local Anesthetic Start: 09-12-2024 End: 09-12-2024 As needed, Starting on Wed09/12/24 at 1044, Intraprocedure melatonin 3 mg oral tablet (2 sources) Start: 08-13-2024 End: 08-13-2024 take 3 mg by mouth once daily 3 mg, Oral, Nightly, First dose on Wed08/13/24 at 0000 1 ml midazolam 5 mg/ml cartridge (2 sources) Benzodiazepine Start: 09-12-2024 End: 09-12-2024 IntraVENous, As needed, Starting on Tu09/12/24 at 1044, Intraprocedure 1 ml morphine sulfate 4 mg/ml cartridge (4 sources) Opioid Agonist Start: 09-08-2024 End: 09-08-2024 take 1 dose by mouth every hour 4 mg, IntraVENous, Once, On Wed09/08/24 at 1630, For 1 dose, If oral and injectable narcotics ordered, use oral first and only use injectable if oral is ineffective or cannot take oral. Do Not give oral and injectable within 1 hour of each other unless specifically ordered. mupirocin 0.02 mg/mg topical ointment (2 sources) RNA Synthetase Inhibitor Antibacterial Start: 09-09-2024 End: 09-14-2024 Nasal, 2 times daily, First dose on Wed09/09/24 at 1315, For 5 days 1 ml naloxone hydrochloride 0.4 mg/ml injection (4 sources) Opioid Antagonist Start: 09-09-2024 End: 09-15-2024 0.4 mg, IntraVENous, Every 5 min PRN, opioid reversal, respiratory depression, Starting on 09/09/24 at 1025, +++ For RR Start: 08-10-2024 End: 08-13-2024 0.4 mg, IntraVENous, Every 5 min PRN, opioid reversal, respiratory depression, Starting on Leigh Ann 08/10/24 at 0155, +++ For RR 2 ml ondansetron 2 mg/ml injection (6 sources) Serotonin-3 Receptor Antagonist Start: 09-08-2024 End: 09-08-2024 4 mg, IntraVENous, Once, On Wed09/08/24 at 1340, For 1 dose Start: 08-13-2024 End: 08-25-2024 take 1 tablet by mouth every eight hours as needed for nausea and vomiting ondansetron ODT (Zofran-ODT) 4 MG disintegrating tablet Take 1 tablet (4 mg) by mouth every 8 hours as needed for nausea or vomiting for up to 7 days. 20 tablet 08/13/2024 08/25/2024 Discontinued (Therapy completed) ondansetron ODT (Zofran-ODT) disintegrating tablet 4 mg (4 sources) Start: 09-09-2024 End: 09-15-2024 take 1 tablet by mouth every eight hours as needed for nausea and vomiting ondansetron ODT (Zofran-ODT) disintegrating tablet 4 mg Start: 08-10-2024 End: 08-13-2024 take 1 tablet by mouth every eight hours as needed for nausea and vomiting ondansetron ODT (Zofran-ODT) disintegrating tablet 4 mg oxyCODONE hydrochloride 5 mg oral tablet (6 sources) Opioid Agonist Start: 08-13-2024 End: 08-25-2024 take 1 tablet by mouth every four hours as needed for pain oxyCODONE (Roxicodone) 5 MG immediate release tablet Indications: Duodenal perforation (CMS/HCC) (HCC) Take 1 tablet (5 mg) by mouth every 4 hours as needed for moderate pain (4-6) for up to 5 days. 15 tablet 08/13/2024 08/25/2024 Discontinued (Therapy completed) Start: 08-10-2024 End: 08-13-2024 take 1 tablet by mouth every four hours as needed for pain oxyCODONE (Roxicodone) immediate release tablet 5 mg pantoprazole (ProtoNix) 40 mg in sodium chloride (PF) 0.9 % 10 mL injection (4 sources) Start: 09-09-2024 End: 09-15-2024 take 1 dose by mouth twice daily 40 mg, IntraVENous, Administer over 2 Minutes, 2 times daily, First dose on Wed09/09/24 at 1115, Give only if unable to tolerate po. Start: 08-09-2024 End: 08-13-2024 take 40 mg by mouth once daily 40 mg, IntraVENous, Adm inister over 2 Minutes, Nightly, First dose on Wed08/09/24 at 2100, Give only if unable to tolerate po. polyethylene glycol 3350 33492 mg powder for oral solution (8 sources) Osmotic Laxative Start: 08-05-2024 End: 09-15-2024 Polyethylene Glycol 3350 (Clearlax) 17 gram/dose powder Discontinued 17 g PO DAILY as needed for laxative effect August 05, 2024 12:00am September 09, 2024 6:38am Potassium Chloride (2 sources) Start: 08-12-2024 End: 08-12-2024 40 mEq, IntraVENous, at 125 mL/hr, Administer over 4 Hours, Once, On 08/12/24 at 0830, For 1 dose, Max infusion rate = 10 mEq/hr 100 ml propofol 10 mg/ml injection (2 sources) General Anesthetic Start: 09-09-2024 End: 09-09-2024 IntraVENous, Code/trauma/sedation continuous med, Starting on 09/09/24 at 1240 psyllium 400 mg oral capsule (6 sources) Start: 08-05-2024 End: 09-09-2024 Psyllium Husk (Daily Fiber) 0.4 gram capsule Discontinued 0.8 g PO TWICE A DAY August 05, 2024 12:00am September 09, 2024 6:38am 5 ml sodium chloride 9 mg/ml injection (16 sources) Start: 09-09-2024 End: 09-15-2024 10 mL, IntraVENous, Every 12 hours scheduled (2 times per day), First dose on 09/09/24 at 2100 Start: 09-09-2024 End: 09-15-2024 250 mL/hr, IntraVENous, Administer over 10 Minutes, As needed, For use in priming line prior to transfusion (prime via gravity) and flush line post transfusion, Starting on 09/09/24 at 2236, For 1 dose, For use in priming line prior to transfusion (prime via gravity) and flush line post transfusion ONLY. Discontinue once line has been cleared of remaining blood product. Start: 09-09-2024 End: 09-15-2024 take 5-40 mL intravenously every twelve hours 5-40 mL, IntraVENous, Every 12 hours, First dose on 09/09/24 at 1030, For Line Patency: Peripheral IV = 5 mL; Midline or Central Line = 10 mL/lumen. If following IV push medication, administer flush at same rate as the IV push. Flush volume is determined by type of infusion therapy being given. For non-viscous solutions use: Peripheral IV = 5 mL Midline or Central Line = 10 mL/lumen For viscous solutions (i.e. blood components, parenteral nutrition, contrast media, or after obtaining blood sample) use: Peripheral IV = 10 mL Midline or Central Line = 20 mL/lumen Start: 09-09-2024 End: 09-15-2024 take 10 mL intravenously once as needed 10 mL, IntraVENous, PRN, line care, Starting on 09/09/24 at 1157, After every IV line use Start: 09-08-2024 End: 09-15-2024 take 100 mL intravenously every hour as needed, then take 20 mL intravenously every hour as needed 5-250 mL/hr, IntraVENous, PRN, if patient receiving piggyback infusions and maintenance fluids are not ordered OR KVO fluids to protect IV site / prevent frequent line interruptions/ long duration, Starting on 09/09/24 at 1157, For piggyback infusion, administer at same rate as piggyback for a total of 25 mL. Enter 25 mL into dose field and piggyback rate into rate field of order. If piggyback is infusing at a rate less than 100 mL/hr, enter 25 mL into dose field and 100 mL/hr into rate field of order. For KVO fluids, enter rate of 20 mL/hr or less into rate field of order. sucralfate 1000 mg oral tablet (15 sources) Aluminum Complex Start: 11-21-2024 End: 12-28-2024 take 1 tablet by mouth at bedtime Sucralfate 1 gram tablet Discontinued 1 g PO before meals and at bedtime November 21, 2024 12:00am December 28, 2024 3:30pm Start: 09-13-2024 End: 10-28-2024 take 1 tablet by mouth four times daily before mealtime sucralfate (Carafate) 1 g tablet Take 1 tablet (1 g) by mouth 4 times daily (before meals and nightly). 120 tablet 09/28/2024 09/28/2024 Discontinued Turmeric-Turmeric Root Extract (6 sources) Start: 01-22-2020 End: 09-09-2024 take 1 capsule by mouth once daily Turmeric-Turmeric Root Extract 1 EACH capsule Discontinued 1 NMA PO DAILY January 22, 2020 12:00am September 09, 2024 6:38am supplement Start: 01-22-2020 End: 09-09-2024 take 1 capsule by mouth once daily Turmeric-Turmeric Root Extract 1 EACH capsule Discontinued 1 NMA PO DAILY January 22, 2020 12:00am September 09, 2024 6:38am Start: 01-22-2020 take 1 capsule by mo uth once daily Turmeric-Turmeric Root Extract 1 EACH capsule Active 1 NMA PO DAILY January 22, 2020 12:00am Problems Active Problems Problem Classification Problem Date Documented Da te Episodic/Chronic Abdominal pain (20 sources) Abdominal pain; Translations: [Unspecified abdominal pain] Onset: 5 08-05-2024 Episodic Acute posthemorrhagic anemia (6 sources) Acute posthemorrhagic anemia; Translations: [Acute posthemorrhagic anemia] Onset: 5 09-09-2024 Episodic Deficiency and other anemia (18 sources) Anemia; Translations: [Anemia, unspecified] Onset: 5 08-08-2024 Episodic Deficiency and other anemia (1 source) Anemia, unspecified; Translations: [Anemia, unspecified] Onset: Episodic Diseases of white blood cells (15 sources) Leukocytosis; Translations: [Elevated white blood cell count, unspecified] Onset: 5 08-08-2024 Chronic Gastroduodenal ulcer (except hemorrhage) (20 sources) Ulcer of duodenum; Translations: [Duodenal ulcer, unspecified as acute or chronic, without hemorrhage or perforation] Onset: 5 08-05-2024 Chronic Gastrointestinal hemorrhage (1 source) Chronic or unspecified duodenal ulcer with hemorrhage; Translations: [Chronic or unspecified duodenal ulcer with hemorrhage] Onset: Chronic Gastrointestinal hemorrhage (20 sources) Upper gastrointestinal bleeding; Translations: [Gastrointestinal hemorrhage, unspecified] Onset: 5 08-08-2024 Episodic Heart valve disorders (9 sources) Mitral valve prolapse; Translations: [Nonrheumatic mitral (valve) prolapse] Onset: 5 08-05-2024 Chronic Nutritional deficiencies (20 sources) Undernutrition; Translations: [Unspecified protein-calorie malnutrition] Onset: 5 Resolved: 5 08-12-2024 Chronic Other aftercare (1 source) Postoperative visit; Translations: [Encounter for other specified surgical aftercare] 08-24-2024 Episodic Other aftercare (3 sources) Long-term current use of anticoagulant; Translations: [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] 09-09-2024 Episodic Other circulatory disease (8 sources) History of insertion of inferior vena caval filter; Translations: [Presence of other vascular implants and grafts] Onset: 5 09-01-2024 Chronic Other circulatory disease (17 sources) Orthostatic hypotension; Translations: [Orthostatic hypotension] Onset: 5 08-05-2024 Episodic Other gastrointestinal disorders (20 sources) Constipation; Translations: [Constipation, unspecified] Onset: 5 07-25-2024 Episodic Other gastrointestinal disorders (18 sources) Duodenal perforation; Translations: [Perforation of intestine (nontraumatic)] Onset: 5 08-10-2024 Episodic Other gastrointestinal disorders (20 sources) Pneumoperitoneum; Translations: [Other specified disorders of peritoneum] Onset: 5 08-09-2024 Episodic Other gastrointestinal disorders (2 sources) Other specified disorders of peritoneum; Translations: [Other specified disorders of peritoneum] Onset: Episodic Other gastrointestinal disorders (2 sources) Perforation of intestine (nontraumatic); Translations: [Perforation of intestine (nontraumatic) (HCC)] Onset: Episodic Other screening for suspected conditions (not mental disorders or infectious disease) (1 source) Encounter for screening for malignant neoplasm of colon; Translations: [Encounter for screening for malignant neoplasm of colon] Onset: Episodic Phlebitis; thrombophlebitis and thromboembolism (12 sources) H/O: Deep vein thrombosis; Translations: [Personal history of other venous thrombosis and embolism] 08-05-2024 Episodic Comment on above: rt leg R LEG - NO BLOOD THI NNERS D/T BLEEDING ULCERS Pulmonary heart disease (20 sources) Pulmonary embolism; Translations: [Other pulmonary embolism without acute cor pulmonale] Onset: 5 08-09-2024 Episodic Residual codes; unclassified (3 sources) Sign; Translations: [Other general symptoms and signs] 09-09-2024 Episodic Syncope (20 sources) Syncope; Translations: [Syncope and collapse] Onset: 5 01-22-2020 Episodic Unclassified (2 sources) Multiple subsegmental pulmonary emboli without acute cor pulmonale; Translations: [Multiple subsegmental thrombotic pulmonary emboli without acute cor pulmonale] Onset: Past or Other Problems Problem Classification Problem Date Documented Da te Episodic/Chronic Other aftercare (2 sources) Encounter for other specified surgical aftercare; Translations: [Encounter for other specified surgical aftercare] Onset: 08-24-2024 Episodic Other circulatory disease (1 source) Orthostatic hypotension; Translations: [Orthostatic hypotension] Onset: 09-11-2024 Episodic Other connective tissue disease (2 sources) Pain in right leg; Translations: [Pain in right leg] Onset: 08-24-2024 Episodic Other lower respiratory disease (2 sources) Shortness of breath; Translations: [Shortness of breath] Onset: 08-24-2024 Episodic Results Test Name Value Interpretation Reference Range Facility Colonoscopy Reporton 025 Colonoscopy Report [facility] Medical Records Department [address] [place] [address] Colonoscopy Report MR#: [id number] Acct: [id number] Name: LAINE GARCIA Rep #: [id number] : 1955 69 From: Betito Avendano DO PCP: Dr. Dante Gurrola MD Status:[facility] Patient Name: Laine Garcia Procedure Date: 01/01/2025 7:02 AM Date of : 1955 Age: 69 Procedure: Colonoscopy Indications: Screening for colorectal malignant neoplasm, This is the patient's first colonoscopy Providers: Betito Avendano DO Referring MD: Dante Gurrola Medicines: Monitored Anesthesia Care Patient Profile: This is a 69 year old male. Refer to note in patient chart for documentation of history and physical. Patient has symptoms of acute epigastric abdominal pain and chronic epigastric abdominal pain. Last Colonoscopy: none. The patient's first colonoscopy is today. Complications: No immediate complications. Procedure: Pre-Anesthesia Assessment: [...] anticoagulant or antiplatelet agents. ASA Grade Assessment: II - A patient [...] patient was re-assessed after the procedure. After I obtained informed consent, the scope was passed under direct vision. Throughout the procedure, the patient's blood pressure, pulse, and oxygen saturations were monitored continuously. The Colonoscope was introduced through the anus and advanced to the cecum, identified by appendiceal orifice and ileocecal valve. The colonoscopy was performed without difficulty. The patient tolerated the procedure well. The quality of the bowel preparation was adequate. The ileocecal valve, appendiceal orifice, and rectum were photographed. Scope In: 7:03:15 AM Scope Withdrawal Time 0 hours 7 minutes 3 seconds Scope Out: 7:15:10 AM Total Procedure Duration Time 0 hours 11 minutes 55 seconds Findings: The perianal and digital rectal examinations were normal. A few small-mouthed diverticula were found in the recto-sigmoid colon and sigmoid colon. The exam was otherwise without abnormality on direct and retroflexion views. Impression: - Diverticulosis in the recto-sigmoid colon and in the sigmoid colon. - The examination was otherwise normal on direct and retroflexion views. - No specimens collected. Recommendation: - Discharge patient to home. - Resume previous diet. - Continue present medications. - Repeat colonoscopy in 10 years for screening purposes. Procedure Code(s): --- Professional --- G0121, Colorectal cancer screening; colonoscopy on individual not meeting criteria for high risk CPT copyright 2021 [employer]. All rights reserved. The codes documented in this report are preliminary and upon drywall carrier review may be revised to meet current compliance requirements. Betito Avendano DO 01/01/2025 7:22:35 AM This report has been signed electronically. Number of Addenda: 0 Note Initiated On: 01/01/2025 7:02 AM 01/01/25721 Date Betito Avendano DO Cosigner Signature: Date (if indicated) CC: Dr. Dante Gurrola MD; Betito Avendano DO Date Dictated: 01/01/25701 Date Transcribed: Residential Mortgage Underwriter: RF Signed Normal [facility] EGD Reporton 01-01-2025 EGD Report [facility] Medical Records Department [address] [place] [address] EGD Report MR#: [id number] Acct: [id number] Name: LAINE GARCIA Rep #: [id number] : 1955 69 From: Betito Avendano DO PCP: Dr. Dante Gurrola MD Status:[facility] Patient Name: Laine Garcia Procedure Date: 01/01/2025 6:36 AM Date of : 1955 Age: 69 Procedure: Upper GI endoscopy Indications: Iron deficiency anemia Providers: Betito Avendano DO Referring MD: Dante Gurrola Medicines: Monitored Anesthesia Care Patient Profile: This is a 69 year old male. Refer to note in patient chart for documentation of history and physical. Patient has symptoms of acute epigastric abdominal pain and chronic epigastric abdominal pain. Complications: No immediate complications. [...] anticoagulant or antiplatelet agents. ASA Grade Assessment: II - A patient [...] and oxygen saturations were monitored continuously. The Colonoscope was introduced through the mouth, and advanced to the duodenal bulb. The upper GI endoscopy was accomplished without difficulty. The patient tolerated the procedure well. Scope In: 6:59:18 AM Scope Out: 7:02:04 AM Total Procedure Duration Time 0 hours 2 minutes 46 seconds Findings: The examined esophagus was normal. The entire examined stomach was normal. One non-bleeding cratered duodenal ulcer with no stigmata of bleeding was found in the duodenal bulb and in the first portion of the duodenum. The lesion was 20 mm in largest dimension. Biopsies were taken with a cold forceps for histology. Verification of patient identification for the specimen was done. Estimated blood loss was minimal. An acquired benign-appearing, intrinsic severe stenosis was found in the duodenal bulb and in the first portion of the duodenum and was non-traversed. Impression: - Normal esophagus. - Normal stomach. - Non-bleeding duodenal ulcer with no stigmata of bleeding. Biopsied. - Acquired duodenal stenosis. Recommendation: - Discharge patient to home. - Resume previous diet. - Continue present medications. - Await pathology results. Procedure Code(s): --- Professional --- 74365, Esophagogastroduodenos copy, flexible, transoral; with biopsy, single or multiple CPT copyright 2021 [employer]. All rights reserved. The codes documented in this report are preliminary and upon drywall carrier review may be revised to meet current compliance requirements. Betito Avendano DO 01/01/2025 7:20:36 AM This report has been signed electronically. Number of Addenda: 0 Note Initiated On: 01/01/2025 6:36 AM 01/01/25720 Date Betito Avendano DO Cosigner Signature: Date (if indicated) CC: Dr. Dante Gurrola MD; Betito Avendano DO Date Dictated: 01/01/25635 Date Transcribed: Residential Mortgage Underwriter: RF Signed [facility]OP[facility] Medical Records Department [address] [place], [place] [id number] Provation Physician Letter MR#: [id number] Acct: [id number] Name: LAINE GARCIA Rep #: [id number] : 1955 69 From: Betito Avendano DO PCP: Dr. Dante Gurrola MD Status:[facility] 01/01/2025 Dante Gurrola Re : Colonoscopy procedure for Laine Garcia Dear Izabela This procedure was performed on Wednesday, January 01, 2025. My impressions and recommendations are as follows: Impressions : - Diverticulosis in the recto-sigmoid colon and in the sigmoid colon. - The examination was otherwise normal on direct and retroflexion views. - No specimens collected. Recommendations : - Discharge patient to home. - Resume previous diet. - Continue present medications. - Repeat colonoscopy in 10 years for screening purposes. My findings are described in the full procedure note, which is enclosed. If I can be of further assistance, please feel free to contact me at . Sincerely, Betito Avendano DO 01/01/2025 7:22:35 AM This report has been signed electronically. 09/29/25 0723 Date Betito Brand Signature: Date (if indicated) CC: Dr. Dante Gurrola MD; Betito Avendano DO Date Dictated: 01/01/25701 Date Transcribed: Residential Mortgage Underwriter: RF Signed [facility] MR/OP.[facility] Medical Records Department [address] [place] [address] Provation Physician Letter MR#: [id number] Acct: [id number] Name: LAINE GARCIA Rep #: [id number] : 1955 69 From: Betito Avendano DO PCP: Dr. Dante Gurrola MD Status:[facility] 01/01/2025 Dante Gurrola Re : Upper GI endoscopy procedure for Laine Garcia Dear Izabela This procedure was performed on Wednesday, January 01, 2025. My impressions and recommendations are as follows: Impressions : - Normal esophagus. - Normal stomach. - Non-bleeding duodenal ulcer with no stigmata of bleeding. Biopsied. - Acquired duodenal stenosis. Recommendations : - Discharge patient to home. - Resume previous diet. - Continue present medications. - Await pathology results. My findings are described in the full procedure note, which is enclosed. If I can be of further assistance, please feel free to contact me at . Sincerely, Betito Avendano DO 01/01/2025 7:20:36 AM This report has been signed electronically. 01/01/25720 Date Betito Brand Signature: Date (if indicated) CC: Dr. Dante Gurrola MD; Betito Avendano DO Date Dictated: 01/01/25635 Date Transcribed: Residential Mortgage Underwriter: RF Signed [facility] MR/POSTOP.ANEon 01-01-2025 MR/POSTOP.[facility] Medical Records Department [address] [place] [address] Anesthesia Postop Eval I 01/01/2531 MR#: [id number] Acct: [id number] Name: LAINE GARCIA Rep #: [id number] : 1955 69 From: Damien Santiago PCP: Dr. Dante Gurrola MD Status:[facility] Y Race: C Location: [place] [address] Anesthesia: Postop Eval I Current Vital Signs Temperature: 97.4 F Pulse Rate: 47 Blood Pressure: 113/56 Respiratory Rate: 16 Pulse Ox: 100 Oxygen Delivery Method: Room Air Assessment Airway patent: Yes Spontaneous unlabored respirations: Yes Mental status: Asleep nausea: No Vomiting: No Anesthesia Complication: No Fluid Hydration Crystalloid volume administer (ml): 700 Total IV fluid infused: 700 Progress Note Anesthesia document: Postop Eval 1 completed: Yes 01/01/25734 Date Damien Ely Signature: Date CC: Signed [facility] MR/[id number] 01-01-2025 [facility] Medical Records Department [address] [place] [address] Anesthesia Postop Eval II 01/01/2543 MR#: [id number] Acct: [id number] Name: LAINE GARCIA Rep #: [id number] : 1955 69 From: Driss Payne MD PCP: Dr. Dante Gurrola MD Status:REG SDC Y Race: C Location: [facility] Anesthesia Postop Eval I Sum Postop Eval Completion status Anesthesia document: Postop Eval 1 completed: Yes Anesthesia Postop Eval I Summary Anesthesia Postop Eval I Summary: Anesthesia Postop Eval I: Assessment Summary Airway patent Yes 01/01/25 07:35 [email or web address] Spontaneous unlabored Yes 01/01/25 07:35 [email or web address] respirations Mental status Asleep 01/01/25 07:35 [email or web address] nausea No 01/01/25 07:35 [email or web address] Vomiting No 01/01/25 07:35 [email or web address] Anesthesia Postop Eval I: Fluid Summary Crystalloid volume administer 700 01/01/25 07:35 [email or web address] (ml) Colloids volume administered ( ml) Blood Product volume administered (ml) Total IV fluid infused 700 01/01/25 07:35 [email or web address] Anesthesia Postop Eval I: Summary Notes Anesthesia Complication No 01/01/25 07:35 [email or web address] Anesthesia Complication Comment: Post-operative progress note Anesthesia: Postop Eval II Evaluation Mental status: Awake Pain Level: 0 nausea: No Vomiting: No Complications Anesthesia Complication: No 01/01/25 0743 Date Driss Payne MD Cosign Signature: Date CC: Signed [facility] Surgery Specimen Level Jose Luis 01-01-2025 Surgery Specimen Level IV ---- Patient Age/Sex Location Account Attending Physician ---- LAINE GARCIA 69/M EN [id number] Betito Avendano DO ---- Specimen: [id number] Received: 01/01/25 Status: HAYDER Burrell Num: [id number] Spec Type: EGD BIOPSY Subm Dr: Betito Avendano DO HEADER OPERATION: EGD with biopsy, colonoscopy PRE-OP DIAGNOSIS: Acute anemia, upper GI bleed, duodenal ulcer TISSUE SUBMITTED: A- Duodenal ulcer biopsy ---- MICROSCOPIC DIAGNOSIS A. Duodenum, biopsy: * Acute inflammation, Primitivo gland hyperplasia, and gastric mucin cell metaplasia, consistent with peptic injury. * Negative for increased intraepithelial lymphocytes. MICROSCOPIC DESCRIPTION Slides are reviewed. GROSS DESCRIPTION A. Received in fixative is one container labeled with the patient's name and designated Duodenal ulcer biopsy. The specimen consists of three irregular fragments of pavon tissue that measure 0.2 to 0.6 cm. The specimen is totally submitted in one cassette. OR 01/01/2025 CPT:73959 ---- Patient Age/Sex Location Account Attending Physician ---- LAINE GARCIA 69/M EN [id number] Betito Avendano DO ---- Signed (signature on file) Dr. Lizzy Schumacher MD 01/05/25 1546 ---- Normal [facility] Comment on above: Performed By: #### L 500.4050, L100.0100 #### [facility] [address] [place], [place], [address] MR/PAT.Eddi 12-28-2024 MR/PAT.ANE [facility] Medical Records Department [address] [place] [address] PAT - Anesthesia 12/28/24 1605 MR#: [id number] Acct: [id number] Name: LAINE GARCIA Rep #: [id number] : 1955 69 From: Torey Price MD PCP: Dr. Dante Gurrola MD Status:PRE SDC Y Race: C Location: EN Pre-Assessment Diagnosis/Proposed Procedure Planned Operative Procedure(s): Colonoscopy,EGD Anesthesia History Anesthesia History - welt insole channeler: Anesthesia History - welt insole channeler Hx Hospitalization Yes: 5 AND 6 GI BLEED, 12/28/24 15:38 THEN DEVELOPED BLOOD CLOTS Any Problems With Anesthesia No 12/28/24 15:38 Cholinesterase deficiency No 12/28/24 15:38 You/Your Family Experience No 12/28/24 15:38 fever (hyperthermia) with Relationship Recent Exposure to Contagious No 08/05/24 16:52 Disease Does patient have nerve No 12/28/24 15:38 stimulator Patient instructed to have device shut off --Does patient have Pacemaker or ICD? When Was Last Pacemaker Check QUESTION #4 FULL TEXT: You/Your Family Experience fever (hyperthermia) with Anesthesia Last Oral Intake Last Oral intake: Last Oral Intake NPO since Meds taken in AM with sips of water? Meds patient instructed to take am of surgery PONV PONV - welt insole channeler: PONV - welt insole channeler Female No 12/28/24 15:38 HX of Motion Sickness No 12/28/24 15:38 HX of N/V After Surgery No 12/28/24 15:38 Non-Smoker Yes 12/28/24 15:38 Duration of Surgery greater No 12/28/24 15:38 than 60 minutes Number of Risk Factors 1 12/28/24 15:38 PONV Score Low Risk 12/28/24 15:38 Height Weight Height Weight: Anesthesia: Height Weight Height 5 ft 10 in 09/09/24 06:30 Respiratory Assessment Respiratory Assessment - welt insole channeler: Respiratory Tract Infection Hx - welt insole channeler Hx Respiratory Tract Infection No 12/28/24 15:38 STOP Sleep Apnea STOP Sleep Apnea - welt insole channeler: STOP Sleep Apnea - welt insole channeler Hx Hypertension No 12/28/24 15:38 Hx Sleep Apnea No 12/28/24 15:38 CPAP BIPAP Do you snore loudly (louder No 12/28/24 15:38 than talking or can be heard Do you often feel tired/ No 12/28/24 15:38 fatigued/ sleepy during daytime? Has anyone observed you stop No 12/28/24 15:38 breathing during sleep? STOP Results Negative 12/28/24 15:38 QUESTION #5 FULL TEXT : Do you snore loudly (louder than talking or can be heard through closed doors)? 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 Specify any problems Hx of Preganancy in last 3 N/A 12/28/24 15:38 Months Nurse Filling Out Transfusion JENNIFER 12/28/24 15:38 Questions: Date: 12/28/24 12/28/24 15:38 Time: 15:40 12/28/24 15:38 Patient unable to answer at this time (ie. confused, unrespo /Reproduction History /Reproductive History - welt insole channeler: /Reproductive Hx- welt insole channeler Hx Now No 12/28/24 15:38 Gestational Age (in weeks): EDC: Hx Hx Para Hx Section SAB No 12/28/24 15:38 PFSH Medical History (Updated 12/28/24 @ 15:38 by Rosa Brown) Wears glasses Hx of pulmonary embolus History of GI bleed Non-smoker History of DVT (deep vein thrombosis) Mitral valve prolapse Home Medications ???Medication ???Instructions ???Recorded ???Last Taken ???Type multivitamin 1 tab PO DAILY supplement 01/22/20 08/05/24 History omega-3 fatty acids 1,000 mg 2,000 mg PO BID supplement 0 08/05/24 History capsule Allergy/AdvReac Type Severity Reaction Status Date / Time Penicillins AdvReac PT UNABLE Verified 12/28/24 15:29 TO RESPOND-NEEDS F/U Family History Father Myocardial infarction Mother CVA (cerebral vascular accident) Surgical History (Updated 12/28/24 @ 15:38 by Rosa Brown) Hx of colonoscopy H/O shoulder surgery History of repair of hiatal hernia Social History (Reviewed 06 (more content not included)... Normal [facility] Gastroenterology Visit Repor ton 11-21-2024 Gastroenterology Visit Report [facility] Gastroenterology [address] [place] [address] OFFICE VISIT Date of Service: 11/21/24 MR#: [id number] Acct: [id number] Name: LAINE GARCIA Rep #: [id number] : 1955 Provider: Betito Avendano DO Age/Sex: 69/M [place] [facility] [place]: Signed Intake Vital Signs 09/09/24 06:30 Height 5 ft 10 in Intake Visit Reasons: Consultation for upper/lower scope Salt Maker Required: No Accompanied by: and Daughter Allergies Penicillins Adverse Reaction (Verified 09/09/24 06:30) PT UNABLE TO RESPOND-NEEDS F/U Medications ???Medication ???Instructions ???Recorded ???Confirmed ???Type multivitamin 1 tab PO DAILY supplement 01/22/20 11/21/24 History omega-3 fatty acids 1,000 mg 2,000 mg PO BID supplement 0 11/21/24 History capsule sucralfate 1 gram tablet 1 g PO QACHS 11/21/24 11/21/24 His tory Have you fallen in the past year?: No PFSH Medical History History of DVT (deep vein thrombosis) Mitral valve prolapse Surgical History H/O shoulder surgery History of repair of hiatal hernia Family History Father Myocardial infarction Mother CVA (cerebral vascular accident) Social History Smoking Status: Never smoker alcohol intake: never HPI HPI Details: LAINE GARCIA, is a 69 M who presents to the office today for follow up. abd/pelvis CT .04.29 1. Right renal cyst. 2. Left paravertebral cysts. 3. Left hepatic lobe cyst. 4. Other nonacute findings detailed above. [facility] hospitalization 5.06.27 - 08.09.24 abd pain - consulted for GI bleed abd/pelvis CT 5.06.27 1. Punctate gas within the proximal duodenum with mild duodenal thickening, which is nonspecific and may represent duodenitis or non perforated duodenal ulcer. 2. Otherwise unremarkable CT abdomen pelvis. EGD 5.06.27 Normal esophagus. No gross lesions in the entire stomach. Spurting duodenal ulcers with a visible vessel. Injected. Treated with argon plasma coagulation (APC). Non-bleeding duodenal ulcers with no stigmata of bleeding. Treated with argon plasma coagulation (APC). No specimens collected. EGD 5..25 Normal esophagus. Normal stomach. Oozing duodenal ulcers with a visible vessel. Injected. Treated with argon plasma coagulation (APC). Prosthesis placed. Clips were placed. 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 abd/pelvis CT 5.25 Interval placement gastroduodenal stent, since prior. No pneumoperitoneum. Otherwise, no acute findings in the abdomen and pelvis. abd/pelvis CT 5 1. Redemonstrated small to moderate volume ill-defined [...] intrathoracic findings. 4. Additional description as above. Had surgical procedure at [facility] OV 5 pt reports that he is feeling better since hospitalization and since having procedure to fix hole in abdomen. Pt reports continued gas and bloating discomfort, but reports that this is improving. Reports that bm are returning to normal and has not had blood in stool. [facility] ED 09.09.24 Alt LOC - GI bleed, hypotension, and alt mental status - was transferred to [facility] had two EGDs and was discharged 09.15.24 abd/pelvis CTA 09.09.24 1. No evidence of acute contrast extravasation, to suggest gastrointestinal bleed. 2. No evidence of acute aortic dissection, thrombosis or pseudoaneurysm formation. 3. Interval migration previously noted gastroduodenal stent, now within the distal transverse colon of the splenic flexure. 4. Other findings as described above. OV 8 pt reports that he is feeling better since hospitalization, has some ongoing left sided abdominal discomfort. Pt reports that he is just here to follow up from his hopsital visit. ROS Const Constitutional: No fatigue, fever(s) or weight change ENT ENT: No difficulty swallowing Gastro GI: Positive for abdominal pain, bloating, change in bowel habits, constipation, diarrhea and excessive flatus; No belching, change in stool character, coffee ground emesis, cramping, heartburn, difficulty swallowing, feeling full e (more content not included)... Normal [facility] 36on 09-29-2024 36 Normal [facility] 29on 09-28-2024 29 Addended by: KIERAN HARDIN on: 09/28/2024 10:03 AM Modules accepted: Orders Normal [facility] Progress Noteon 09-28-2024 Progress Note Normal [facility] 30on 09-15-2024 30 Normal [facility] 30 Normal [facility] BASIC METABOLIC PANELon 09-03 Anion gap [Moles/Vol] 5 mmol/L Normal - [facility] Comment on above: Performed By: #### L AB15, [id number], [id number] ####Digital Press Operator: CARMEL HOWARD ([id number])[facility] ([address] Calcium [Mass/Vol] 7.7 mg/dL Low 8.8-10.0 [facility] Comment on above: Performed By: #### L AB15, [id number], [id number] ####Digital Press Operator: CARMEL HOWARD ([phone])[place])[address] [place] [address] Chloride [Moles/Vol] 108 mmol/L High 98-107 [facility] Comment on above: Performed By: #### L AB15, [id number], [id number] ####Digital Press Operator: CARMEL HOWARD ([id number])[facility] ([facility])[address] [place] [address] CO2 [Moles/Vol] 25 mmol/L Normal 23-31 [facility] Comment on above: Performed By: #### Lily AB15, [id number], [id number] ####Digital Press Operator: CARMEL HOWARD ([phone])[place])[address] [place] [address] Creatinine [Mass/Vol] 0.67 mg/dL Low 0.72-1.25 [facility] Comment on above: Performed By: #### L AB15, [id number], [id number] ####Digital Press Operator: CARMEL HOWARD ([phone])[place])[address] [place] [address] GLOMERULAR FILTRATION RATE ML/MIN/1.73 SQ M.PREDICTED >90.0 Normal >60.0 [facility] Comment on above: Result Comment: Calc ulation based on the Chronic Kidney Disease Epidemiology Collaboration (CKD-EPI) equation refit without adjustment for race Performed By: #### L AB15, [id number], [id number] ####Digital Press Operator: CARMEL HOWARD ([phone])[facility] ([facility])[address] [place] [address] Glucose [Mass/Vol] 125 mg/dL High 82-115 [facility] Comment on above: Performed By: #### L AB15, [id number], KZL092 ####Digital Press Operator: CARMEL HOWARD ([phone])[place])[address] [place] [address] [place] Potassium [Moles/Vol] 3.7 mmol/L Normal 3.5-5.1 [facility] Comment on above: Result Comment: [facility] potassium values may be up to 0.5 mmol/L lower than serum values. Performed By: #### L AB15, [id number], [id number] ####Digital Press Operator: CARMEL HOWARD ([id number])[facility] [place] [address] Sodium [Moles/Vol] 138 mmol/L Normal 136-145 [facility] Comment on above: Performed By: #### L AB15, [id number], [id number] ####Digital Press Operator: CARMEL HOWARD ([phone])[facility] ([facility])[address] [place] [address] Urea nitrogen [Mass/Vol] 14 mg/dL Normal 9-23 [facility] Comment on above: Performed By: #### L AB15, [id number], [id number] ####Digital Press Operator: CARMEL HOWARD ([phone])[facility] ([facility])[address] [place] [address] Basic metabolic 1998 panelon 09-15-2024 Anion gap [Moles/Vol] 5 mmol/L 3 - 13 mmol/L [facility] Calcium [Mass/Vol] 7.7 mg/dL Low 8.8 - 10. 0 mg/dL [facility] Chloride [Moles/Vol] 108 mmol/L High 98 - 10 7 mmol/L [facility] CO2 [Moles/Vol] 25 mmol/L 23 - 31 mmol/L [facility] Creatinine [Mass/Vol] 0.67 mg/dL Low 0.72 - 1.25 mg/dL [facility] GFR/1.73 sq M.predicted (S/P/Bld) [Vol rate/Area] - PINF [facility] Comment on above: Calculation based on the Chronic Kidney Disease Epidemiology Collaboration (CKD-EPI) equation refit without adjustment for race Glucose [Mass/Vol] 125 mg/dL High 82 - 115 mg/dL [facility] Interpretation and review of laboratory results Abnormal [facility] Potassium [Moles/Vol] 3.7 mmol/L 3.5 - 5.1 mmol/L [facility] Comment on above: Plasma potassium shruthi ues may be up to 0.5 mmol/L lower than serum values. Sodium [Moles/Vol] 138 mmol/L 136 - 145 mmol/L [facility] Urea nitrogen [Mass/Vol] 14 mg/dL 9 - 23 mg/dL [facility] CBC W Auto Differential pane l (Bld)on 09-15-2024 Basophils (Bld) [#/Vol] 0 10*3/uL 0.0 - 0.2 10*3/uL [facility] Basophils/100 WBC (Bld) 0.5 % 0.0 - 2.0 % [facility] Eosinophils (Bld) [#/Vol] 0.3 10*3/uL 0.0 - 0.5 10*3/uL [facility] Eosinophils/100 WBC (Bld) 4.9 % 0.0 - 6.0 % [facility] Erythrocyte distribution width (RBC) [Ratio] 15.6 % High 11.5 - 15.0 % [facility] Hematocrit (Bld) [Volume fraction] 23.3 % Low 40.0 - 52.0 % [facility] Hemoglobin (Bld) [Mass/Vol] 7.7 g/dL Low 13.0 - 18.0 g/dL [facility] Immature granulocytes (Bld) [#/Vol] 0 10*3/uL NINF - 0.1 10*3/uL [facility] Immature granulocytes/100 WBC (Bld) 0.5 % 0.0 - 2.0 % [facility] Interpretation and review of laboratory results Abnormal [facility] Lymphocytes (Bld) [#/Vol] 0.9 10*3/uL Low 1.0 - 4.3 10*3/uL [facility] Lymphocytes/100 WBC (Bld) 15.4 % 15.0 - 45.0 % [facility] MCH (RBC) [Entitic mass] 29.5 pg 26.0 - 34.0 pg [facility] MCHC (RBC) [Mass/Vol] 33 % 30.5 - 36.0 % [facility] MCV (RBC) [Entitic vol] 89.3 fL 77.0 - 99.0 fL [facility] Monocytes (Bld) [#/Vol] 0.5 10*3/uL 0.0 - 0.9 10*3/uL [facility] Monocytes/100 WBC (Bld) 7.6 % 5.0 - 13.0 % [facility] Neutrophils (Bld) [#/Vol] 4.2 10*3/uL 1.8 - 7.5 10*3/uL [facility] Neutrophils/100 WBC (Bld) 71.1 % 38.0 - 82.0 % [facility] Nucleated RBC/100 WBC (Bld) [Ratio] 0 % [facility] Platelet mean volume (Bld) [Entitic vol] 9.6 fL 9.0 - 12.7 fL [facility] Platelets (Bld) [#/Vol] 261 10*3/uL 140 - 440 10*3/uL [facility] RBC (Bld) [#/Vol] 2.61 10*6/uL Low 4.40 - 5.9 0 10*6/uL [facility] WBC (Bld) [#/Vol] 5.9 10*3/uL 3.6 - 10.7 10*3/uL [facility] CBC WITH AUTO DIFFERENTIALon 09-15-2024 Basophils (Bld) [#/Vol] 0.0 10*3/uL Normal 0.0-0.2 [facility] Comment on above: Performed By: #### L [id number] ####Digital Press Operator: CARMEL HOWARD ([phone])[address] Basophils/100 WBC (Bld) 0.5 % Normal 0.0-2.0 [facility] Comment on above: Performed By: #### L [id number] ####Digital Press Operator: CARMEL HOWARD ([phone])[facility] ([facility])[address] [place] [address] Eosinophils (Bld) [#/Vol] 0.3 10*3/uL Normal 0.0-0.5 [facility] Comment on above: Performed By: #### L [id number] ####Digital Press Operator: CARMEL HOWARD ([phone])[place])[address] [place] [address] Eosinophils/100 WBC (Bld) 4.9 % Normal 0.0-6.0 [facility] Comment on above: Performed By: #### L [id number] ####Digital Press Operator: CARMEL HOWARD ([phone])[address] Erythrocyte distribution width (RBC) [Ratio] 15.6 % High 11.5-15.0 [facility] Comment on above: Performed By: #### L [id number] ####Digital Press Operator: CARMEL HOWARD ([phone])[address] Hematocrit (Bld) [Volume fraction] 23.3 % Low 40.0-52.0 [facility] Comment on above: Performed By: #### L [id number] ####Digital Press Operator: CARMEL HOWARD ([phone])[address] Hemoglobin (Bld) [Mass/Vol] 7.7 g/dL Low 13.0-18.0 [facility] Comment on above: Performed By: #### L [id number] ####Digital Press Operator: CARMEL HOWARD ([phone])[address] IMMATURE GRANS % 0.5 % Normal 0.0-2.0 [facility] Comment on above: Performed By: #### L [id number] ####Digital Press Operator: CARMEL HOWARD ([phone])[address] IMMATURE GRANS ABSOLUTE 0.0 10*3/uL Normal <0.1 [facility] Comment on above: Performed By: #### L [id number] ####Digital Press Operator: CARMEL HOWARD ([phone])[address] Lymphocytes (Bld) [#/Vol] 0.9 10*3/uL Low 1.0-4.3 [facility] Comment on above: Performed By: #### L [id number] ####Digital Press Operator: CARMEL [id number])[facility] ([facility])[address] [place] [address] Lymphocytes/100 WBC (Bld) 15.4 % Normal 15.0-45.0 [facility] Comment on above: Performed By: #### L [id number] ####Digital Press Operator: CARMEL HOWARD ([phone])[facility] ([facility])[address] [place] [address] MCH (RBC) [Entitic mass] 29.5 pg Normal 26.0-34.0 [facility] Comment on above: Performed By: #### L [id number] ####Digital Press Operator: CARMEL HOWARD ([phone])[place])[address] [place] [address] MCHC 33.0 % Normal 30.5-36.0 [facility] Comment on above: Performed By: #### L [id number] ####Digital Press Operator: CARMEL HOWARD ([phone])[facility] ([facility])[address] [place] [address] MCV (RBC) [Entitic vol] 89.3 fL Normal 77.0-99.0 [facility] Comment on above: Performed By: #### L [id number] ####Digital Press Operator: CARMEL HOWARD ([phone])[place])[address] [place] [address] Monocytes (Bld) [#/Vol] 0.5 10*3/uL Normal 0.0-0.9 [facility] Comment on above: Performed By: #### L [id number] ####Digital Press Operator: CARMEL HOWARD ([phone])[place])[address] [place] [address] Monocytes/100 WBC (Bld) 7.6 % Normal 5.0-13.0 [facility] Comment on above: Performed By: #### L [id number] ####Digital Press Operator: CARMEL HOWARD ([phone])[facility] ([facility])[address] [place] [address] NEUTROPHILS ABSOLUTE 4.2 10*3/uL Normal 1.8-7.5 [facility] Comment on above: Performed By: #### L [id number] ####Digital Press Operator: CARMEL HOWARD ([phone])[facility] ([facility])[address] [place] [address] Neutrophils/100 WBC (Bld) 71.1 % Normal 38.0-82.0 [facility] Comment on above: Performed By: #### L [id number] ####Digital Press Operator: CARMEL HOWARD ([phone])[facility] ([facility])[address] [place] [address] NRBC 0.0 /100 WBCs Normal 0.0-2.0 [facility] Comment on above: Performed By: #### L [id number] ####Digital Press Operator: CARMEL HOWARD ([phone])[facility] ([facility])[address] [place] [address] Platelet mean volume (Bld) [Entitic vol] 9.6 fL Normal 9.0-12.7 [facility] Comment on above: Performed By: #### L [id number] ####Digital Press Operator: CARMEL HOWARD ([phone])[facility] ([facility])[address] [place] [address] Platelets (Bld) [#/Vol] 261 10*3/uL Normal 140-440 [facility] Comment on above: Performed By: #### L [id number] ####Digital Press Operator: CARMEL HOWARD ([phone])[facility] ([facility])[address] [place] [address] RBC (Bld) [#/Vol] 2.61 10*6/uL Low 4.40-5.90 [facility] Comment on above: Performed By: #### L [id number] ####Digital Press Operator: CARMEL HOWARD ([phone])[facility] ([facility])[address] [place] [address] WBC (Bld) [#/Vol] 5.9 10*3/uL Normal 3.6-10.7 [facility] Comment on above: Performed By: #### L [id number] ####Digital Press Operator: CARMEL HOWARD ([id number])[facility] ([facility])[address] [place] [address] Laboratory - Chemistry and C hemistry - challengeon 09-15-2024 Magnesium [Mass/Vol] 1.8 mg/dL 1.6 - 2 .6 mg/dL [facility] MAGNESIUMon 09-15-2024 Magnesium [Mass/Vol] 1.8 mg/dL Normal 1.6-2.6 [facility] Comment on above: Result Comment: MARTINEZ R COMMENTS:Higher values can be expected in females during menses. Performed By: #### L AB15, [id number], AZG389 ####Digital Press Operator: CARMEL HOWARD ([phone])[facility] ([facility])[address] [place] [address] Magnesium [Mass/Vol]on 09-15 Higher values can be expected in females during menses. [facility] No Panel Informationon 09-15 Interpretation and review of laboratory results Normal [facility] PHOSPHORUSon 09-15-2024 Phosphate [Mass/Vol] 2.8 mg/dL Normal 2.3-4.7 [facility] Comment on above: Performed By: #### L AB15, [id number], EPM649 ####Digital Press Operator: CARMEL HOWARD ([phone])[facility] ([facility])[address] [place] [address] Phosphate [Moles/Vol]on 09-03 Phosphate [Mass/Vol] 2.8 mg/dL 2.3 - 4 .7 mg/dL [facility] Progress Noteon 09-15-2024 Progress Note Normal [facility] [id number] 09-14-2024 [id number] Normal [facility] 30on 09-14-2024 30 Normal [facility] Anesthesia Noteon 09-14-2024 Anesthesia Note Normal [facility] Anesthesia Note Normal [facility] BASIC METABOLIC PANELon 09-03 Anion gap [Moles/Vol] 5 mmol/L Normal -13 [facility] Comment on above: Performed By: #### L AB113, QQX071, LAB15 ####Digital Press Operator: CARMEL HOWARD ([phone])[place])[address] [place] [address] Calcium [Mass/Vol] 7.9 mg/dL Low 8.8-10.0 [facility] Comment on above: Performed By: #### L AB113, [id number], LAB15 ####Digital Press Operator: CARMEL HOWARD ([phone])[facility] [place] [address] Chloride [Moles/Vol] 108 mmol/L High 98-107 [facility] Comment on above: Performed By: #### L AB113, VJH486, LAB15 ####Digital Press Operator: CARMEL HOWARD ([phone])[facility] ([facility])[address] [place] [address] CO2 [Moles/Vol] 26 mmol/L Normal 23-31 [facility] Comment on above: Performed By: #### Lily AB113, GMT287, LAB15 ####Digital Press Operator: CARMEL HOWARD ([phone])[facility] ([facility])[address] [place] [address] Creatinine [Mass/Vol] 0.69 mg/dL Low 0.72-1.25 [facility] Comment on above: Performed By: #### L AB113, [id number], LAB15 ####Digital Press Operator: CARMEL HOWARD ([phone])[place])[address] [place] [address] GLOMERULAR FILTRATION RATE ML/MIN/1.73 SQ M.PREDICTED >90.0 Normal >60.0 [facility] Comment on above: Result Comment: Calc ulation based on the Chronic Kidney Disease Epidemiology Collaboration (CKD-EPI) equation refit without adjustment for race Performed By: #### L AB113, REA286, LAB15 ####Digital Press Operator: CARMEL HOWARD ([phone])[facility] ([facility])[address] [place] [address] [place] Glucose [Mass/Vol] 111 mg/dL Normal 82-115 [facility] Comment on above: Performed By: #### L AB113, [id number], LAB15 ####Digital Press Operator: CARMEL HOWARD ([phone])[facility] ([facility])[address] [place] [address] Potassium [Moles/Vol] 3.8 mmol/L Normal 3.5-5.1 [facility] Comment on above: Result Comment: [facility] potassium values may be up to 0.5 mmol/L lower than serum values. Performed By: #### L AB113, NXH516, LAB15 ####Digital Press Operator: CARMEL HOWARD ([phone])[facility] ([facility])[address] [place] [address] Sodium [Moles/Vol] 139 mmol/L Normal 136-145 [facility] Comment on above: Performed By: #### L AB113, VMV302, LAB15 ####Digital Press Operator: CARMEL HOWARD ([phone])[facility] ([facility])[address] [place] [address] Urea nitrogen [Mass/Vol] 14 mg/dL Normal 9-23 [facility] Comment on above: Performed By: #### L AB113, [id number], LAB15 ####Digital Press Operator: CARMEL HOWARD ([id number])[facility] ([facility])[address] [place] [address] Basic metabolic 1998 panelon 09-14-2024 Anion gap [Moles/Vol] 5 mmol/L 3 - 13 mmol/L [facility] Calcium [Mass/Vol] 7.9 mg/dL Low 8.8 - 10. 0 mg/dL [facility] Chloride [Moles/Vol] 108 mmol/L High 98 - 10 7 mmol/L [facility] CO2 [Moles/Vol] 26 mmol/L 23 - 31 mmol/L [facility] Creatinine [Mass/Vol] 0.69 mg/dL Low 0.72 - 1.25 mg/dL [facility] GFR/1.73 sq M.predicted (S/P/Bld) [Vol rate/Area] - PINF [facility] Comment on above: Calculation based on the Chronic Kidney Disease Epidemiology Collaboration (CKD-EPI) equation refit without adjustment for race Glucose [Mass/Vol] 111 mg/dL 82 - 115 mg/dL [facility] Interpretation and review of laboratory results Abnormal [facility] Potassium [Moles/Vol] 3.8 mmol/L 3.5 - 5.1 mmol/L [facility] Comment on above: Plasma potassium shruthi ues may be up to 0.5 mmol/L lower than serum values. Sodium [Moles/Vol] 139 mmol/L 136 - 145 mmol/L [facility] Urea nitrogen [Mass/Vol] 14 mg/dL 9 - 23 mg/dL [facility] CBC W Auto Differential pane l (Bld)on 09-14-2024 Basophils (Bld) [#/Vol] 0 10*3/uL 0.0 - 0.2 10*3/uL [facility] Basophils/100 WBC (Bld) 0.5 % 0.0 - 2.0 % [facility] Eosinophils (Bld) [#/Vol] 0.3 10*3/uL 0.0 - 0.5 10*3/uL [facility] Eosinophils/100 WBC (Bld) 5.7 % 0.0 - 6.0 % [facility] Erythrocyte distribution width (RBC) [Ratio] 15.9 % High 11.5 - 15.0 % [facility] Hematocrit (Bld) [Volume fraction] 23.1 % Low 40.0 - 52.0 % [facility] Hemoglobin (Bld) [Mass/Vol] 7.6 g/dL Low 13.0 - 18.0 g/dL [facility] Immature granulocytes (Bld) [#/Vol] 0 10*3/uL NINF - 0.1 10*3/uL [facility] Immature granulocytes/100 WBC (Bld) 0.5 % 0.0 - 2.0 % [facility] Interpretation and review of laboratory results Abnormal [facility] IPF 2 [facility] Lymphocytes (Bld) [#/Vol] 1.1 10*3/uL 1.0 - 4.3 10*3/uL [facility] Lymphocytes/100 WBC (Bld) 18.8 % 15.0 - 45.0 % [facility] MCH (RBC) [Entitic mass] 29.5 pg 26.0 - 34.0 pg [facility] MCHC (RBC) [Mass/Vol] 32.9 % 30.5 - 36.0 % [facility] MCV (RBC) [Entitic vol] 89.5 fL 77.0 - 99.0 fL [facility] Monocytes (Bld) [#/Vol] 0.5 10*3/uL 0.0 - 0.9 10*3/uL [facility] Monocytes/100 WBC (Bld) 8.9 % 5.0 - 13.0 % [facility] Neutrophils (Bld) [#/Vol] 3.9 10*3/uL 1.8 - 7.5 10*3/uL [facility] Neutrophils/100 WBC (Bld) 65.6 % 38.0 - 82.0 % [facility] Nucleated RBC/100 WBC (Bld) [Ratio] 0 % [facility] Platelet mean volume (Bld) [Entitic vol] 9.9 fL 9.0 - 12.7 fL [facility] Platelets (Bld) [#/Vol] 247 10*3/uL 140 - 440 10*3/uL [facility] RBC (Bld) [#/Vol] 2.58 10*6/uL Low 4.40 - 5.9 0 10*6/uL [facility] WBC (Bld) [#/Vol] 6 10*3/uL 3.6 - 10.7 10*3/uL [facility] CBC WITH AUTO DIFFERENTIALon 09-14-2024 Basophils (Bld) [#/Vol] 0.0 10*3/uL Normal 0.0-0.2 [facility] Comment on above: Performed By: #### L [id number] ####Digital Press Operator: CARMEL HOWARD ([phone])[address] Basophils/100 WBC (Bld) 0.5 % Normal 0.0-2.0 [facility] Comment on above: Performed By: #### L [id number] ####Digital Press Operator: CARMEL HOWARD ([phone])[place])[address] [place] [address] Eosinophils (Bld) [#/Vol] 0.3 10*3/uL Normal 0.0-0.5 [facility] Comment on above: Performed By: #### L [id number] ####Digital Press Operator: CARMEL HOWARD ([phone])[place])[address] [place] [address] Eosinophils/100 WBC (Bld) 5.7 % Normal 0.0-6.0 [facility] Comment on above: Performed By: #### L [id number] ####Digital Press Operator: CARMEL HOWARD ([phone])[place])[address] [place] [address] Erythrocyte distribution width (RBC) [Ratio] 15.9 % High 11.5-15.0 [facility] Comment on above: Performed By: #### L [id number] ####[employer] Operator: CARMEL HOWARD ([phone])[address] Hematocrit (Bld) [Volume fraction] 23.1 % Low 40.0-52.0 [facility] Comment on above: Performed By: #### L [id number] ####Digital Press Operator: CARMEL HOWARD ([phone])[address] Hemoglobin (Bld) [Mass/Vol] 7.6 g/dL Low 13.0-18.0 [facility] Comment on above: Performed By: #### L [id number] ####Digital Press Operator: CARMEL HOWARD ([phone])[place])[address] [place] [address] IMMATURE GRANS % 0.5 % Normal 0.0-2.0 [facility] Comment on above: Performed By: #### L [id number] ####Digital Press Operator: CARMEL HOWARD ([phone])[address] IMMATURE GRANS ABSOLUTE 0.0 10*3/uL Normal <0.1 [facility] Comment on above: Performed By: #### L [id number] ####Digital Press Operator: CARMEL HOWARD ([phone])[place])[address] [place] [address] [place] IPF 2 Normal [facility] Comment on above: Performed By: #### L [id number] ####Digital Press Operator: CARMEL HOWARD ([phone])[place])[address] [place] [address] Lymphocytes (Bld) [#/Vol] 1.1 10*3/uL Normal 1.0-4.3 [facility] Comment on above: Performed By: #### L [id number] ####Digital Press Operator: CARMEL HOWARD ([phone])[place])[address] [place] [address] Lymphocytes/100 WBC (Bld) 18.8 % Normal 15.0-45.0 [facility] Comment on above: Performed By: #### L [id number] ####Digital Press Operator: CARMEL HOWARD ([phone])[place])[address] [place] [address] MCH (RBC) [Entitic mass] 29.5 pg Normal 26.0-34.0 [facility] Comment on above: Performed By: #### L [id number] ####Digital Press Operator: CARMEL HOWARD ([phone])[place])[address] [place] [address] MCHC 32.9 % Normal 30.5-36.0 [facility] Comment on above: Performed By: #### L [id number] ####Digital Press Operator: CARMEL HOWARD ([id number])[place])[address] [place] [address] MCV (RBC) [Entitic vol] 89.5 fL Normal 77.0-99.0 [facility] Comment on above: Performed By: #### L [id number] ####Digital Press Operator: CARMEL HOWARD ([phone])[place])[address] [place] [address] Monocytes (Bld) [#/Vol] 0.5 10*3/uL Normal 0.0-0.9 [facility] Comment on above: Performed By: #### L [id number] ####Digital Press Operator: CARMEL HOWARD ([phone])[facility] ([facility])[address] [place] [address] Monocytes/100 WBC (Bld) 8.9 % Normal 5.0-13.0 [facility] Comment on above: Performed By: #### L [id number] ####Digital Press Operator: CARMEL HOWARD ([id number])[facility] ([facility])[address] [place] [address] NEUTROPHILS ABSOLUTE 3.9 10*3/uL Normal 1.8-7.5 [facility] Comment on above: Performed By: #### L [id number] ####Digital Press Operator: CARMEL HOWARD ([phone])[facility] ([facility])[address] [place] [address] Neutrophils/100 WBC (Bld) 65.6 % Normal 38.0-82.0 [facility] Comment on above: Performed By: #### L [id number] ####Digital Press Operator: CARMEL HOWARD ([phone])[facility] ([facility])[address] [place] [address] NRBC 0.0 /100 WBCs Normal 0.0-2.0 [facility] Comment on above: Performed By: #### L [id number] ####Digital Press Operator: CARMEL HOWARD ([phone])[facility] ([facility])[address] [place] [address] Platelet mean volume (Bld) [Entitic vol] 9.9 fL Normal 9.0-12.7 [facility] Comment on above: Performed By: #### L [id number] ####Digital Press Operator: CARMEL HOWARD ([phone])[facility] ([facility])[address] [place] [address] Platelets (Bld) [#/Vol] 247 10*3/uL Normal 140-440 [facility] Comment on above: Performed By: #### L [id number] ####Digital Press Operator: CARMEL HOWARD ([phone])[facility] ([facility])[address] [place] [address] RBC (Bld) [#/Vol] 2.58 10*6/uL Low 4.40-5.90 [facility] Comment on above: Performed By: #### L [id number] ####Digital Press Operator: CARMEL HOAWRD ([phone])[facility] ([facility])[address] [place] [address] WBC (Bld) [#/Vol] 6.0 10*3/uL Normal 3.6-10.7 [facility] Comment on above: Performed By: #### L [id number] ####Digital Press Operator: CARMEL HOWARD ([phone])[facility] ([facility])[address] [place] [address] Laboratory - Chemistry and C hemistry - challengeon 09-14-2024 Glucose [Mass/Vol] 122 mg/dL High 70 - 100 mg/dL [facility] Magnesium [Mass/Vol] 1.8 mg/dL 1.6 - 2 .6 mg/dL [facility] MAGNESIUMon 09-14-2024 Magnesium [Mass/Vol] 1.8 mg/dL Normal 1.6-2.6 [facility] Comment on above: Result Comment: MARTINEZ Veliz COMMENTS:Higher values can be expected in females during menses. Performed By: #### L AB113, RCU118, LAB15 ####Digital Press Operator: CARMEL HOWARD ([phone])[facility] ([facility])[address] [place] [address] Magnesium [Mass/Vol]on 09-14 Higher values can be expected in females during menses. [facility] No Panel Informationon 09-14 Interpretation and review of laboratory results Abnormal [facility] Performed by: [place] [address] CLIA ID: [id number] [facility] Interpretation and review of laboratory results Normal [facility] Nursing Noteon 09-14-2024 Nursing Note Normal [facility] Op Noteon 09-14-2024 Op Note Normal [facility] PHOSPHORUSon 09-14-2024 Phosphate [Mass/Vol] 3.3 mg/dL Normal 2.3-4.7 [facility] Comment on above: Performed By: #### Lily AB113, THQ193, LAB15 ####Digital Press Operator: CARMEL HOWARD ([phone])[facility] ([facility] [place] [address] [place] Phosphate [Moles/Vol]on 09-03 Phosphate [Mass/Vol] 3.3 mg/dL 2.3 - 4 .7 mg/dL [facility] Progress Noteon 09-14-2024 Progress Note Normal [facility] Progress Note Normal [facility] [id number] 09-13-2024 [id number] Normal [facility] BASIC METABOLIC PANELon 09-03 Anion gap [Moles/Vol] 7 mmol/L Normal 3-13 [facility] Comment on above: Performed By: #### Lily PAT, [id number], [id number] ####Digital Press Operator: CARMEL HOWARD ([phone])[facility] ([facility] [place] [address] [place] Calcium [Mass/Vol] 7.7 mg/dL Low 8.8-10.0 [facility] Comment on above: Performed By: #### Lily LOGAN15, CNV453, [id number] ####Digital Press Operator: CARMEL HOWARD ([phone])[facility] ([facility] [place] [address] [place] Chloride [Moles/Vol] 109 mmol/L High 98-107 [facility] Comment on above: Performed By: #### Lily AB15, KIT307, RUX109 ####Digital Press Operator: CARMEL HOWARD ([phone])[facility] [place] [address] [place] CO2 [Moles/Vol] 24 mmol/L Normal 23-31 [facility] Comment on above: Performed By: #### L AB15, CAQ159, RPU839 ####Digital Press Operator: CARMEL HOWARD ([phone])[facility] ([address] Creatinine [Mass/Vol] 0.63 mg/dL Low 0.72-1.25 [facility] Comment on above: Performed By: #### Lily AB15, TNP466, JSL609 ####Digital Press Operator: CARMEL HOWARD ([phone])[place])[address] [place] [address] GLOMERULAR FILTRATION RATE ML/MIN/1.73 SQ M.PREDICTED >90.0 Normal >60.0 [facility] Comment on above: Result Comment: Calc ulation based on the Chronic Kidney Disease Epidemiology Collaboration (CKD-EPI) equation refit without adjustment for race Performed By: #### Lily PAT, [id number], GLT045 ####Digital Press Operator: CARMEL HOWARD ([phone])[place])[address] [place] [address] Glucose [Mass/Vol] 98 mg/dL Normal 82-115 [facility] Comment on above: Performed By: #### Lily ABJose Juan, BXI894, VTZ908 ####Digital Press Operator: CARMEL HOWARD ([phone])[place])[address] [place] [address] Potassium [Moles/Vol] 3.8 mmol/L Normal 3.5-5.1 [facility] Comment on above: Result Comment: [facility] potassium values may be up to 0.5 mmol/L lower than serum values. Performed By: #### Lily PAT, VCH185, MQI071 ####Digital Press Operator: CARMEL HOWARD ([phone])[place])[address] [place] [address] [place] Sodium [Moles/Vol] 140 mmol/L Normal 136-145 [facility] Comment on above: Performed By: #### Lily AB15, TBX077, OGI999 ####Digital Press Operator: CARMEL HOWARD ([phone])[place])[address] [place] [address] [place] Urea nitrogen [Mass/Vol] 10 mg/dL Normal 9-23 [facility] Comment on above: Performed By: #### L AB15, KIE462, OGS586 ####Digital Press Operator: CARMEL HOWARD ([phone])[facility] ([address] Basic metabolic 1998 panelon 09-13-2024 Anion gap [Moles/Vol] 7 mmol/L 3 - 13 mmol/L [facility] Calcium [Mass/Vol] 7.7 mg/dL Low 8.8 - 10. 0 mg/dL [facility] Chloride [Moles/Vol] 109 mmol/L High 98 - 10 7 mmol/L [facility] CO2 [Moles/Vol] 24 mmol/L 23 - 31 mmol/L [facility] Creatinine [Mass/Vol] 0.63 mg/dL Low 0.72 - 1.25 mg/dL [facility] GFR/1.73 sq M.predicted (S/P/Bld) [Vol rate/Area] - PINF [facility] Comment on above: Calculation based on the Chronic Kidney Disease Epidemiology Collaboration (CKD-EPI) equation refit without adjustment for race Glucose [Mass/Vol] 98 mg/dL 82 - 115 mg/dL [facility] Interpretation and review of laboratory results Abnormal [facility] Potassium [Moles/Vol] 3.8 mmol/L 3.5 - 5.1 mmol/L [facility] Comment on above: Plasma potassium shruthi ues may be up to 0.5 mmol/L lower than serum values. Sodium [Moles/Vol] 140 mmol/L 136 - 145 mmol/L [facility] Urea nitrogen [Mass/Vol] 10 mg/dL 9 - 23 mg/dL [facility] CBC W Auto Differential pane l (Bld)on 09-13-2024 Basophils (Bld) [#/Vol] 0 10*3/uL 0.0 - 0.2 10*3/uL [facility] Basophils/100 WBC (Bld) 0.5 % 0.0 - 2.0 % [facility] Eosinophils (Bld) [#/Vol] 0.2 10*3/uL 0.0 - 0.5 10*3/uL [facility] Eosinophils/100 WBC (Bld) 3.7 % 0.0 - 6.0 % [facility] Erythrocyte distribution width (RBC) [Ratio] 16 % High 11.5 - 15.0 % [facility] Hematocrit (Bld) [Volume fraction] 22.6 % Low 40.0 - 52.0 % [facility] Hemoglobin (Bld) [Mass/Vol] 7.5 g/dL Low 13.0 - 18.0 g/dL [facility] Immature granulocytes (Bld) [#/Vol] 0 10*3/uL NINF - 0.1 10*3/uL [facility] Immature granulocytes/100 WBC (Bld) 0.3 % 0.0 - 2.0 % [facility] Interpretation and review of laboratory results Abnormal [facility] Lymphocytes (Bld) [#/Vol] 0.8 10*3/uL Low 1.0 - 4.3 10*3/uL [facility] Lymphocytes/100 WBC (Bld) 12.7 % Low 15.0 - 45.0 % [facility] MCH (RBC) [Entitic mass] 29.5 pg 26.0 - 34.0 pg [facility] MCHC (RBC) [Mass/Vol] 33.2 % 30.5 - 36.0 % [facility] MCV (RBC) [Entitic vol] 89 fL 77.0 - 99.0 fL [facility] Monocytes (Bld) [#/Vol] 0.4 10*3/uL 0.0 - 0.9 10*3/uL [facility] Monocytes/100 WBC (Bld) 6.6 % 5.0 - 13.0 % [facility] Neutrophils (Bld) [#/Vol] 5 10*3/uL 1.8 - 7.5 10*3/uL [facility] Neutrophils/100 WBC (Bld) 76.2 % 38.0 - 82.0 % [facility] Nucleated RBC/100 WBC (Bld) [Ratio] 0 % [facility] Platelet mean volume (Bld) [Entitic vol] 10.1 fL 9.0 - 12.7 fL [facility] Platelets (Bld) [#/Vol] 214 10*3/uL 140 - 440 10*3/uL [facility] RBC (Bld) [#/Vol] 2.54 10*6/uL Low 4.40 - 5.9 0 10*6/uL [facility] WBC (Bld) [#/Vol] 6.6 10*3/uL 3.6 - 10.7 10*3/uL [facility] CBC WITH AUTO DIFFERENTIALon 09-13-2024 Basophils (Bld) [#/Vol] 0.0 10*3/uL Normal 0.0-0.2 [facility] Comment on above: Performed By: #### L [id number] ####Digital Press Operator: CARMEL HOWARD ([phone])[facility] ([facility])[address] [place] [address] Basophils/100 WBC (Bld) 0.5 % Normal 0.0-2.0 [facility] Comment on above: Performed By: #### L [id number] ####Digital Press Operator: CARMEL HOWARD ([phone])[place])[address] [place] [address] Eosinophils (Bld) [#/Vol] 0.2 10*3/uL Normal 0.0-0.5 [facility] Comment on above: Performed By: #### L [id number] ####Digital Press Operator: CARMEL HOWARD ([phone])[facility] ([facility])[address] [place] [address] Eosinophils/100 WBC (Bld) 3.7 % Normal 0.0-6.0 [facility] Comment on above: Performed By: #### L [id number] ####Digital Press Operator: CARMEL HOWARD ([phone])[place])[address] [place] [address] Erythrocyte distribution width (RBC) [Ratio] 16.0 % High 11.5-15.0 [facility] Comment on above: Performed By: #### L [id number] ####Digital Press Operator: CARMEL HOWARD ([phone])[facility] ([facility])[address] [place] [address] Hematocrit (Bld) [Volume fraction] 22.6 % Low 40.0-52.0 [facility] Comment on above: Performed By: #### L [id number] ####Digital Press Operator: CARMEL HOWARD ([phone])[place])[address] [place] [address] Hemoglobin (Bld) [Mass/Vol] 7.5 g/dL Low 13.0-18.0 [facility] Comment on above: Performed By: #### L [id number] ####Digital Press Operator: CARMEL HOWARD ([phone])[place])[address] [place] [address] IMMATURE GRANS % 0.3 % Normal 0.0-2.0 [facility] Comment on above: Performed By: #### L [id number] ####Digital Press Operator: CARMEL HOWARD ([phone])[place])[address] [place] [address] IMMATURE GRANS ABSOLUTE 0.0 10*3/uL Normal <0.1 [facility] Comment on above: Performed By: #### L [id number] ####Digital Press Operator: CARMEL HOWARD ([phone])[address] Lymphocytes (Bld) [#/Vol] 0.8 10*3/uL Low 1.0-4.3 [facility] Comment on above: Performed By: #### L [id number] ####Digital Press Operator: CARMEL HOWARD ([phone])[address] Lymphocytes/100 WBC (Bld) 12.7 % Low 15.0-45.0 [facility] Comment on above: Performed By: #### L [id number] ####Digital Press Operator: CARMEL HOWARD ([phone])[place])[address] [place] [address] MCH (RBC) [Entitic mass] 29.5 pg Normal 26.0-34.0 [facility] Comment on above: Performed By: #### L [id number] ####Digital Press Operator: CARMEL HOWARD ([phone])[address] MCHC 33.2 % Normal 30.5-36.0 [facility] Comment on above: Performed By: #### L [id number] ####Digital Press Operator: CARMEL HOWARD ([phone])[facility] ([facility])[address] [place] [address] MCV (RBC) [Entitic vol] 89.0 fL Normal 77.0-99.0 [facility] Comment on above: Performed By: #### L [id number] ####Digital Press Operator: CARMEL HOWARD ([id number])[facility] ([facility])[address] [place] [address] Monocytes (Bld) [#/Vol] 0.4 10*3/uL Normal 0.0-0.9 [facility] Comment on above: Performed By: #### L [id number] ####Digital Press Operator: CARMEL HOWARD ([phone])[facility] ([facility])[address] [place] [address] Monocytes/100 WBC (Bld) 6.6 % Normal 5.0-13.0 [facility] Comment on above: Performed By: #### L [id number] ####Digital Press Operator: CARMEL HOWARD ([phone])[facility] ([facility])[address] [place] [address] NEUTROPHILS ABSOLUTE 5.0 10*3/uL Normal 1.8-7.5 [facility] Comment on above: Performed By: #### L [id number] ####Digital Press Operator: CARMEL HOWARD ([phone])[facility] ([facility])[address] [place] [address] Neutrophils/100 WBC (Bld) 76.2 % Normal 38.0-82.0 [facility] Comment on above: Performed By: #### L [id number] ####Digital Press Operator: CARMEL HOWARD ([phone])[facility] ([facility])[address] [place] [address] [place] NRBC 0.0 /100 WBCs Normal 0.0-2.0 [facility] Comment on above: Performed By: #### L [id number] ####Digital Press Operator: CARMEL HOWARD ([phone])[facility] ([facility] Platelet mean volume (Bld) [Entitic vol] 10.1 fL Normal 9.0-12.7 [facility] Comment on above: Performed By: #### L [id number] ####Digital Press Operator: CARMEL HOWARD ([phone])[place])[address] [place] [address] Platelets (Bld) [#/Vol] 214 10*3/uL Normal 140-440 [facility] Comment on above: Performed By: #### L [id number] ####Digital Press Operator: CARMEL HOWARD ([phone])[place])[address] [place] [address] RBC (Bld) [#/Vol] 2.54 10*6/uL Low 4.40-5.90 [facility] Comment on above: Performed By: #### L [id number] ####Digital Press Operator: CARMEL HOWARD ([phone])[facility] ([facility])[address] [place] [address] WBC (Bld) [#/Vol] 6.6 10*3/uL Normal 3.6-10.7 [facility] Comment on above: Performed By: #### L [id number] ####Digital Press Operator: CARMEL HOWARD ([phone])[address] HEMOGLOBIN AND HEMATOCRIT, B [facility] 09-13-2024 Hematocrit (Bld) [Volume fraction] 23.6 % Low 40.0-52.0 [facility] Comment on above: Performed By: #### L [id number] ####Digital Press Operator: CARMEL HOWARD ([phone])[place])[address] [place] [address] Hemoglobin (Bld) [Mass/Vol] 7.9 g/dL Low 13.0-18.0 [facility] Comment on above: Performed By: #### L [id number] ####Digital Press Operator: CARMEL HOWARD ([phone])[place])[address] [place] [address] Hemoglobin (Bld) [Mass/Vol]o n 09-13-2024 Hematocrit (Bld) [Volume fraction] 23.6 % Low 40.0 - 52.0 % [facility] Interpretation and review of laboratory results Abnormal [facility] Laboratory - Chemistry and C hemistry - challengeon 09-13-2024 Magnesium [Mass/Vol] 1.7 mg/dL 1.6 - 2 .6 mg/dL [facility] Laboratory - Hematology and Cell countson 09-13-2024 Hemoglobin (Bld) [Mass/Vol] 7.9 g/dL Low 13.0 - 18.0 g/dL [facility] MAGNESIUMon 09-13-2024 Magnesium [Mass/Vol] 1.7 mg/dL Normal 1.6-2.6 [facility] Comment on above: Result Comment: MARTINEZ Veliz COMMENTS:Higher values can be expected in females during menses. Performed By: #### L AB15, SCZ056, FVL968 ####Digital Press Operator: CARMEL HOWARD ([phone])[facility] ([facility])[address] [place] [address] Magnesium [Mass/Vol]on 09-13 Higher values can be expected in females during menses. [facility] No Panel Informationon 09-13 Interpretation and review of laboratory results Normal [facility] PHOSPHORUSon 09-13-2024 Phosphate [Mass/Vol] 3.2 mg/dL Normal 2.3-4.7 [facility] Comment on above: Performed By: #### L AB15, JFT650, IWY186 ####Digital Press Operator: CARMEL HOWARD ([phone])[facility] ([facility])[address] [place] [address] Phosphate [Moles/Vol]on 09-03 Phosphate [Mass/Vol] 3.2 mg/dL 2.3 - 4 .7 mg/dL [facility] Progress Noteon 09-13-2024 Progress Note Normal [facility] Progress Note Normal [facility] Progress Note Normal [facility] Progress Note Normal [facility] Progress Note Normal [facility] 30on 09-12-2024 30 Normal [facility] 30 Normal [facility] BASIC METABOLIC PANELon 09-03 Anion gap [Moles/Vol] 6 mmol/L Normal 3-13 [facility] Comment on above: Performed By: #### L AB113, LAB15, ZGP569 ####Digital Press Operator: CARMEL HOWARD ([phone])[facility] ([facility])[address] [place] [address] Calcium [Mass/Vol] 7.9 mg/dL Low 8.8-10.0 [facility] Comment on above: Performed By: #### L AB113, LAB15, WHV946 ####Digital Press Operator: CARMEL HOWARD ([phone])[facility] ([facility])[address] [place] [address] Chloride [Moles/Vol] 110 mmol/L High 98-107 [facility] Comment on above: Performed By: #### L AB113, LAB15, NVG307 ####Digital Press Operator: CARMEL HOWARD ([phone])[facility] [place] [address] CO2 [Moles/Vol] 25 mmol/L Normal 23-31 [facility] Comment on above: Performed By: #### L AB113, LAB15, LEQ387 ####Digital Press Operator: CARMEL HOWARD ([phone])[facility] ([facility])[address] [place] [address] Creatinine [Mass/Vol] 0.65 mg/dL Low 0.72-1.25 [facility] Comment on above: Performed By: #### L AB113, LAB15, OVJ072 ####Digital Press Operator: CARMEL HOWARD ([phone])[place])[address] [place] [address] [place] GLOMERULAR FILTRATION RATE ML/MIN/1.73 SQ M.PREDICTED >90.0 Normal >60.0 [facility] Comment on above: Result Comment: Calc ulation based on the Chronic Kidney Disease Epidemiology Collaboration (CKD-EPI) equation refit without adjustment for race Performed By: #### L AB113, LAB15, QHH296 ####Digital Press Operator: CARMEL HOWARD ([phone])[facility] ([facility])[address] [place] [address] Glucose [Mass/Vol] 102 mg/dL Normal 82-115 [facility] Comment on above: Performed By: #### L AB113, LAB15, IOP574 ####Digital Press Operator: CARMEL HOWARD ([phone])[place])[address] [place] [address] Potassium [Moles/Vol] 3.7 mmol/L Normal 3.5-5.1 [facility] Comment on above: Result Comment: [facility] potassium values may be up to 0.5 mmol/L lower than serum values. Performed By: #### L AB113, LAB15, QED473 ####Digital Press Operator: CARMEL HOWARD ([phone])[facility] ([facility])[address] [place] [address] Sodium [Moles/Vol] 141 mmol/L Normal 136-145 [facility] Comment on above: Performed By: #### L AB113, LAB15, YKA230 ####Digital Press Operator: CARMEL HOWARD ([phone])[place])[address] [place] [address] Urea nitrogen [Mass/Vol] 20 mg/dL Normal 9-23 [facility] Comment on above: Performed By: #### L AB113, LAB15, JKK523 ####Digital Press Operator: CARMEL HOWARD ([phone])[place])[address] [place] [address] Basic metabolic 1998 panelon 09-12-2024 Anion gap [Moles/Vol] 6 mmol/L 3 - 13 mmol/L [facility] Calcium [Mass/Vol] 7.9 mg/dL Low 8.8 - 10. 0 mg/dL [facility] Chloride [Moles/Vol] 110 mmol/L High 98 - 10 7 mmol/L [facility] CO2 [Moles/Vol] 25 mmol/L 23 - 31 mmol/L [facility] Creatinine [Mass/Vol] 0.65 mg/dL Low 0.72 - 1.25 mg/dL [employer] GFR/1.73 sq M.predicted (S/P/Bld) [Vol rate/Area] - PINF [facility] Comment on above: Calculation based on the Chronic Kidney Disease Epidemiology Collaboration (CKD-EPI) equation refit without adjustment for race Glucose [Mass/Vol] 102 mg/dL 82 - 115 mg/dL [facility] Interpretation and review of laboratory results Abnormal [facility] Potassium [Moles/Vol] 3.7 mmol/L 3.5 - 5.1 mmol/L [facility] Comment on above: Plasma potassium shruthi ues may be up to 0.5 mmol/L lower than serum values. Sodium [Moles/Vol] 141 mmol/L 136 - 145 mmol/L [facility] Urea nitrogen [Mass/Vol] 20 mg/dL 9 - 23 mg/dL [facility] CBC W Auto Differential pane l (Bld)on 09-12-2024 Basophils (Bld) [#/Vol] 0 10*3/uL 0.0 - 0.2 10*3/uL [facility] [facility] Basophils/100 WBC (Bld) 0.5 % 0.0 - 2.0 % [facility] Eosinophils (Bld) [#/Vol] 0.3 10*3/uL 0.0 - 0.5 10*3/uL [facility] Eosinophils/100 WBC (Bld) 5.5 % 0.0 - 6.0 % [facility] Erythrocyte distribution width (RBC) [Ratio] 15.9 % High 11.5 - 15.0 % [employer] [facility] [facility] Hematocrit (Bld) [Volume fraction] 23.6 % Low 40.0 - 52.0 % [employer] Hemoglobin (Bld) [Mass/Vol] 7.7 g/dL Low 13.0 - 18.0 g/dL [facility] Immature granulocytes (Bld) [#/Vol] 0 10*3/uL NINF - 0.1 10*3/uL [facility] Immature granulocytes/100 WBC (Bld) 0.4 % 0.0 - 2.0 % [facility] Interpretation and review of laboratory results Abnormal [facility] Lymphocytes (Bld) [#/Vol] 1 10*3/uL 1.0 - 4.3 10*3/uL [facility] Lymphocytes/100 WBC (Bld) 17.4 % 15.0 - 45.0 % [facility] MCH (RBC) [Entitic mass] 28.6 pg 26.0 - 34.0 pg [facility] MCHC (RBC) [Mass/Vol] 32.6 % 30.5 - 36.0 % [facility] MCV (RBC) [Entitic vol] 87.7 fL 77.0 - 99.0 fL [facility] Monocytes (Bld) [#/Vol] 0.4 10*3/uL 0.0 - 0.9 10*3/uL [facility] Monocytes/100 WBC (Bld) 6.6 % 5.0 - 13.0 % [facility] Neutrophils (Bld) [#/Vol] 3.8 10*3/uL 1.8 - 7.5 10*3/uL [facility] Neutrophils/100 WBC (Bld) 69.6 % 38.0 - 82.0 % [facility] Nucleated RBC/100 WBC (Bld) [Ratio] 0 % [facility] Platelet mean volume (Bld) [Entitic vol] 9.5 fL 9.0 - 12.7 fL [facility] Platelets (Bld) [#/Vol] 234 10*3/uL 140 - 440 10*3/uL [facility] RBC (Bld) [#/Vol] 2.69 10*6/uL Low 4.40 - 5.9 0 10*6/uL [facility] WBC (Bld) [#/Vol] 5.5 10*3/uL 3.6 - 10.7 10*3/uL [facility] CBC WITH AUTO DIFFERENTIALon 09-12-2024 Basophils (Bld) [#/Vol] 0.0 10*3/uL Normal 0.0-0.2 [facility] Comment on above: Performed By: #### L [id number] ####Digital Press Operator: CARMEL HOWARD ([phone])[address] Basophils/100 WBC (Bld) 0.5 % Normal 0.0-2.0 [facility] Comment on above: Performed By: #### L [id number] ####Digital Press Operator: CARMEL HOWARD ([phone])[facility] ([facility])[address] [place] [address] Eosinophils (Bld) [#/Vol] 0.3 10*3/uL Normal 0.0-0.5 [facility] Comment on above: Performed By: #### L [id number] ####Digital Press Operator: CARMEL HOWARD ([phone])[place])[address] [place] [address] Eosinophils/100 WBC (Bld) 5.5 % Normal 0.0-6.0 [facility] Comment on above: Performed By: #### L [id number] ####Digital Press Operator: CARMEL HOWARD ([phone])[address] Erythrocyte distribution width (RBC) [Ratio] 15.9 % High 11.5-15.0 [facility] Comment on above: Performed By: #### L [id number] ####Digital Press Operator: CARMEL HOWARD ([phone])[place])[address] [place] [address] Hematocrit (Bld) [Volume fraction] 23.6 % Low 40.0-52.0 [facility] Comment on above: Performed By: #### L [id number] ####Digital Press Operator: CARMEL HOWARD ([id number])[address] Hemoglobin (Bld) [Mass/Vol] 7.7 g/dL Low 13.0-18.0 [facility] Comment on above: Performed By: #### L [id number] ####Digital Press Operator: CARMEL HOWARD ([id number])[place])[address] [place] [address] IMMATURE GRANS % 0.4 % Normal 0.0-2.0 [facility] Comment on above: Performed By: #### L [id number] ####Digital Press Operator: CARMEL HOWARD ([phone])[place])[address] [place] [address] IMMATURE GRANS ABSOLUTE 0.0 10*3/uL Normal <0.1 [facility] Comment on above: Performed By: #### L [id number] ####Digital Press Operator: CARMEL HOWARD ([phone])[place])[address] [place] [address] Lymphocytes (Bld) [#/Vol] 1.0 10*3/uL Normal 1.0-4.3 [facility] Comment on above: Performed By: #### L [id number] ####Digital Press Operator: CARMEL HOWARD ([id number])[place])[address] [place] [address] Lymphocytes/100 WBC (Bld) 17.4 % Normal 15.0-45.0 [facility] Comment on above: Performed By: #### L [id number] ####Digital Press Operator: CARMEL HOWARD ([phone])[place])[address] [place] [address] MCH (RBC) [Entitic mass] 28.6 pg Normal 26.0-34.0 [facility] Comment on above: Performed By: #### L [id number] ####Digital Press Operator: CARMEL HOWARD ([phone])[place])[address] [place] [address] MCHC 32.6 % Normal 30.5-36.0 [facility] Comment on above: Performed By: #### L [id number] ####Digital Press Operator: CARMEL HOWARD ([id number])[place])[address] [place] [address] MCV (RBC) [Entitic vol] 87.7 fL Normal 77.0-99.0 [facility] Comment on above: Performed By: #### L [id number] ####Digital Press Operator: CARMEL HOWARD ([id number])[place])[address] [place] [address] Monocytes (Bld) [#/Vol] 0.4 10*3/uL Normal 0.0-0.9 [facility] Comment on above: Performed By: #### L [id number] ####Digital Press Operator: CARMEL HOWARD ([id number])[facility])[address] [place] [address] Monocytes/100 WBC (Bld) 6.6 % Normal 5.0-13.0 [facility] Comment on above: Performed By: #### L [id number] ####Digital Press Operator: CARMEL HOWARD ([phone])[facility] ([facility])[address] [place] [address] NEUTROPHILS ABSOLUTE 3.8 10*3/uL Normal 1.8-7.5 [facility] Comment on above: Performed By: #### L [id number] ####Digital Press Operator: CARMEL HOWARD ([id number])[facility] ([facility])[address] [place] [address] Neutrophils/100 WBC (Bld) 69.6 % Normal 38.0-82.0 [facility] Comment on above: Performed By: #### L [id number] ####Digital Press Operator: CARMEL HOWARD ([phone])[facility] ([facility])[address] [place] [address] NRBC 0.0 /100 WBCs Normal 0.0-2.0 [facility] Comment on above: Performed By: #### L [id number] ####Digital Press Operator: CARMEL HOWARD ([phone])[facility] ([facility])[address] [place] [address] Platelet mean volume (Bld) [Entitic vol] 9.5 fL Normal 9.0-12.7 [facility] Comment on above: Performed By: #### L [id number] ####Digital Press Operator: CARMEL HOWARD ([phone])[facility] ([facility])[address] [place] [address] [place] Platelets (Bld) [#/Vol] 234 10*3/uL Normal 140-440 [facility] Comment on above: Performed By: #### L [id number] ####Digital Press Operator: CARMEL HOWARD ([phone])[facility] ([facility])[address] [place] [address] RBC (Bld) [#/Vol] 2.69 10*6/uL Low 4.40-5.90 [facility] Comment on above: Performed By: #### L [id number] ####Digital Press Operator: CARMEL HOWARD ([phone])[facility] ([facility])[address] [place] [address] WBC (Bld) [#/Vol] 5.5 10*3/uL Normal 3.6-10.7 [facility] Comment on above: Performed By: #### L [id number] ####Digital Press Operator: CARMEL HOWARD ([id number])[facility] ([facility])[address] [place] [address] Consulton 09-12-2024 Consult Normal [facility] Guidance for embolization of [place] 09-12-2024 Successful embolization of gastroduodenal artery and superior pancreaticoduodenal artery. PROCEDURE SUMMARY: - Arterial puncture with ultrasound guidance - Selective mesenteric angiography: Celiac angiography - Superselective mesenteric angiography: Gastroduodenal artery, right gastroepiploic artery, superior pancreaticoduodenal artery - Embolization and post-embolization angiography as described below - Additional procedure(s): None PROCEDURE DETAILS: Pre-procedure Consent: Informed consent for the procedure including risks, benefits and alternatives was obtained and time-out was performed prior to the procedure. Preparation: The site was prepared and draped using maximal sterile barrier technique including cutaneous antisepsis. Anesthesia/sedation SEDATION: Moderate sedation was provided under my supervision with patient monitored by a trained radiology nurse. Total sedation time of 40 minutes. Access Local anesthesia was administered. The vessel was sonographically evaluated and judged to be patent. Real time ultrasound was used to visualize needle entry into the vessel and a permanent image was stored. A 5 Fr sheath was placed. Vessel accessed: Right common femoral artery Access technique: Micropuncture set with 21 gauge needle Mesenteric angiography The mesenteric arterial system was catheterized using glide Sim one catheter. Variant anatomy: None Vessel catheterized: Celiac artery Findings: No active extravasation seen. Conventional anatomy. Vessel catheterized: Gastroduodenal artery Findings: No active extravasation seen Vessel catheterized: Right gastroepiploic artery Findings: No active extravasation seen Vessel catheterized: Superior pancreaticoduodenal artery Findings: Arteries coursing towards endoscopically placed clip. No definite active extravasation. Embolization Catheter position for embolization #1: Gastroduodenal artery - Embolic(s): 4-6 mm Dyllan coils and Embold coils. Embold packing coil. - Angiographic endpoint: Complete stasis (static contrast column for at least 5 heartbeats) Catheter position for embolization #2: Superior pancreaticoduodenal artery - Embolic(s): 3 mm embold coil - Angiographic endpoint: Complete stasis (static contrast column for at least 5 heartbeats) Completion angiography Vessel catheterized: Gastroduodenal artery Findings: No flow through the coil pack. No active extravasation. Closure Access site angiography performed: Yes Findings: Patent vessel with appropriate access level Arterial closure technique: Angioseal Hemostasis achieved from closure technique: Yes Duration of manual compression (minutes): 2 Contrast Contrast agent: Isovue 300 Contrast volume (mL): 32 Radiation Dose Fluoroscopy time (minutes): 8.9 Fluoroscopy Dose: Ka,r = 114 mGy Additional Details Additional description of procedure: None Equipment details: None Specimens removed: None Estimated blood loss (mL): Less than 10 Standardized report: [id number] Report Dictated on Electronically Signed By: Omid Goldsmith DR Electronically Signed Date/Time: 09/12/2024 12:35 PM EDT [employer] [facility] 1955 [id number] Exam Date/Time: 09/12/2024 11:28 Procedure: IR EMBOLIZATION Ordering Provider: PECK GEORGE Reason For Exam: large recurrent bleeding duodenal ulcer PROCEDURE: Mesenteric angiography and embolization Procedural Personnel Attending physician(s): Omid Goldsmith DR Indication: Bleeding duodenal ulcer Additional clinical history: None Complications: No immediate complications. [facility] [employer] Omid Goldsmith MD - 09/12/2024 Patient Name: [facility] 1955 [id number] Exam Date/Time: 09/12/2024 11:28 Procedure: IR EMBOLIZATION Ordering Provider: PECK GEORGE Reason For Exam: large recurrent bleeding duodenal ulcer PROCEDURE: Mesenteric angiography and embolization Procedural Personnel Attending physician(s): Omid Goldsmith DR Indication: Bleeding duodenal ulcer Additional clinical history: None Complications: No immediate complications. IMPRESSION: Successful embolization of gastroduodenal artery and superior pancreaticoduodenal artery. PROCEDURE SUMMARY: - Arterial puncture with ultrasound guidance - Selective mesenteric angiography: Celiac angiography - Superselective mesenteric angiography: Gastroduodenal artery, right gastroepiploic artery, superior pancreaticoduodenal artery - Embolization and post-embolization angiography as described below - Additional procedure(s): None PROCEDURE DETAILS: Pre-procedure Consent: Informed consent for the procedure including risks, benefits and alternatives was obtained and time-out was performed prior to the procedure. Preparation: The site was prepared and draped using maximal sterile barrier technique including cutaneous antisepsis. Anesthesia/sedation SEDATION: Moderate sedation was provided under my supervision with patient monitored by a trained radiology nurse. Total sedation time of 40 minutes. Access Local anesthesia was administered. The vessel was sonographically evaluated and judged to be patent. Real time ultrasound was used to visualize needle entry into the vessel and a permanent image was stored. A 5 Fr sheath was placed. Vessel accessed: Right common femoral artery Access technique: Micropuncture set with 21 gauge needle Mesenteric angiography The mesenteric arterial system was catheterized using Semantrade Sim one catheter. Variant anatomy: None Vessel catheterized: Celiac artery Findings: No active extravasation seen. Conventional anatomy. Vessel catheterized: Gastroduodenal artery Findings: No active extravasation seen Vessel catheterized: Right gastroepiploic artery Findings: No active extravasation seen Vessel catheterized: Superior pancreaticoduodenal artery Findings: Arteries coursing towards endoscopically placed clip. No definite active extravasation. Embolization Catheter position for embolization #1: Gastroduodenal artery - Embolic(s): 4-6 mm Dyllan coils and Embold coils. Embold packing coil. - Angiographic endpoint: Complete stasis (static contrast column for at least 5 heartbeats) Catheter position for embolization #2: Superior pancreaticoduodenal artery - Embolic(s): 3 mm embold coil - Angiographic endpoint: Complete stasis (static contrast column for at least 5 heartbeats) Completion angiography Vessel catheterized: Gastroduodenal artery Findings: No flow through the coil pack. No active extravasation. Closure Access site angiography performed: Yes Findings: Patent vessel with appropriate access level Arterial closure technique: Angioseal Hemostasis achieved from closure technique: Yes Duration of manual compression (minutes): 2 Contrast Contrast agent: Isovue 300 Contrast volume (mL): 32 Radiation Dose Fluoroscopy time (minutes): 8.9 Fluoroscopy Dose: Ka,r = 114 mGy Additional Details Additional description of procedure: None Equipment details: None Specimens removed: None Estimated blood loss (mL): Less than 10 Standardized report: [email or web address] Report Dictated on Electronically Signed By: Omid Goldsmith DR Electronically Signed Date/Time: 09/12/2024 12:35 PM EDT [facility] Radiology Study observation (narrative) [facility] Laboratory - Chemistry and C hemistry - challengeon 09-12-2024 Magnesium [Mass/Vol] 1.8 mg/dL 1.6 - 2 .6 mg/dL [facility] MAGNESIUMon 09-12-2024 Magnesium [Mass/Vol] 1.8 mg/dL Normal 1.6-2.6 [facility] Comment on above: Result Comment: MARTINEZ Veliz COMMENTS:Higher values can be expected in females during menses. Performed By: #### L AB113, LAB15, [id number] ####Digital Press Operator: CARMEL HOWARD ([id number])[address] Magnesium [Mass/Vol]on 09-12 Higher values can be expected in females during menses. [facility] No Panel Informationon 09-12 Interpretation and review of laboratory results Normal [facility] Nursing Noteon 09-12-2024 Nursing Note Hemostasis achieved. Normal [facility] Nursing Note Normal [facility] Nursing Note Pt arrived awake a/o x4 pt spoke with dr goldsmith consent obtained. Ppp +3 bilateral Normal [facility] PHOSPHORUSon 09-12-2024 Phosphate [Mass/Vol] 3.6 mg/dL Normal 2.3-4.7 [facility] Comment on above: Performed By: #### L AB113, LAB15, [id number] ####Digital Press Operator: CARMEL HOWARD ([phone])[place])[address] [place] [address] Phosphate [Moles/Vol]on 09-03 Phosphate [Mass/Vol] 3.6 mg/dL 2.3 - 4 .7 mg/dL [facility] Progress Noteon 09-12-2024 Progress Note Dear Provider, The patient is noted with hematemesis on admission. Patient is on eliquis at home and this medication is currently being held. Patient received 1 unit prbcs. Could hematemesis be further specified as: Hematemesis exacerbated by eliquis Normal [facility] Progress Note Normal [facility] Progress Note Normal [facility] 30on 09-11-2024 30 Normal [facility] [id number] 09-11-2024 [id number] Normal [facility] BASIC METABOLIC PANELon Anion gap [Moles/Vol] 3 mmol/L Normal 3-13 [facility] Comment on above: Performed By: #### L AB103, [id number], LAB15 ####Digital Press Operator: CARMEL HOWARD ([phone])[place])[address] [place] [address] Calcium [Mass/Vol] 7.7 mg/dL Low 8.8-10.0 [facility] Comment on above: Performed By: #### L AB103, [id number], LAB15 ####Digital Press Operator: CARMEL HOWARD ([phone])[facility] ([facility])[address] [place] [address] [place] Chloride [Moles/Vol] 112 mmol/L High 98-107 [facility] Comment on above: Performed By: #### L AB103, [id number], LAB15 ####Digital Press Operator: CARMEL HOWARD ([phone])[place])[address] [place] [address] CO2 [Moles/Vol] 26 mmol/L Normal 23-31 [facility] Comment on above: Performed By: #### L AB103, [id number], LAB15 ####Digital Press Operator: CARMEL HOWARD ([phone])[place])[address] [place] [address] Creatinine [Mass/Vol] 0.60 mg/dL Low 0.72-1.25 [facility] Comment on above: Performed By: #### L AB103, [id number], LAB15 ####Digital Press Operator: CARMEL HOWARD ([phone])[place])[address] [place] [address] GLOMERULAR FILTRATION RATE ML/MIN/1.73 SQ M.PREDICTED >90.0 Normal >60.0 [facility] Comment on above: Result Comment: Calc ulation based on the Chronic Kidney Disease Epidemiology Collaboration (CKD-EPI) equation refit without adjustment for race Performed By: #### L AB103, [id number], LAB15 ####Digital Press Operator: CARMEL HOWARD ([phone])[place])[address] [place] [address] Glucose [Mass/Vol] 99 mg/dL Normal 82-115 [facility] Comment on above: Performed By: #### L AB103, WUD780, LAB15 ####Digital Press Operator: CARMEL HOWARD ([phone])[place])[address] [place] [address] Potassium [Moles/Vol] 3.9 mmol/L Normal 3.5-5.1 [facility] Comment on above: Result Comment: [facility] potassium values may be up to 0.5 mmol/L lower than serum values. Performed By: #### L AB103, [id number], LAB15 ####Digital Press Operator: CARMEL HOWARD ([phone])[place])[address] [place] [address] [place] Sodium [Moles/Vol] 141 mmol/L Normal 136-145 [facility] Comment on above: Performed By: #### L AB103, [id number], LAB15 ####Digital Press Operator: CARMEL HOWARD ([phone])[facility] ([facility])[address] [place] [address] Urea nitrogen [Mass/Vol] 29 mg/dL High 9-23 [facility] Comment on above: Performed By: #### L AB103, [id number], LAB15 ####Digital Press Operator: CARMEL HOWARD ([phone])[facility] ([facility])[address] [place] [address] Basic metabolic 1998 panelon 09-11-2024 Anion gap [Moles/Vol] 3 mmol/L 3 - 13 mmol/L [facility] Calcium [Mass/Vol] 7.7 mg/dL Low 8.8 - 10. 0 mg/dL [facility] Chloride [Moles/Vol] 112 mmol/L High 98 - 10 7 mmol/L [facility] CO2 [Moles/Vol] 26 mmol/L 23 - 31 mmol/L [facility] Creatinine [Mass/Vol] 0.6 mg/dL Low 0.72 - 1.25 mg/dL [facility] GFR/1.73 sq M.predicted (S/P/Bld) [Vol rate/Area] - PINF [facility] Comment on above: Calculation based on the Chronic Kidney Disease Epidemiology Collaboration (CKD-EPI) equation refit without adjustment for race Glucose [Mass/Vol] 99 mg/dL 82 - 115 mg/dL [facility] Interpretation and review of laboratory results Abnormal [facility] Potassium [Moles/Vol] 3.9 mmol/L 3.5 - 5.1 mmol/L [facility] Comment on above: Plasma potassium shruthi ues may be up to 0.5 mmol/L lower than serum values. Sodium [Moles/Vol] 141 mmol/L 136 - 145 mmol/L [facility] Urea nitrogen [Mass/Vol] 29 mg/dL High 9 - 23 mg/dL [facility] CBC W Auto Differential pane l (Bld)on 09-11-2024 Basophils (Bld) [#/Vol] 0.1 10*3/uL 0.0 - 0.2 10*3/uL [facility] Basophils/100 WBC (Bld) 0.7 % 0.0 - 2.0 % [facility] Eosinophils (Bld) [#/Vol] 0.3 10*3/uL 0.0 - 0.5 10*3/uL [facility] Eosinophils/100 WBC (Bld) 4.8 % 0.0 - 6.0 % [facility] Erythrocyte distribution width (RBC) [Ratio] 15.9 % High 11.5 - 15.0 % [facility] Hematocrit (Bld) [Volume fraction] 22.9 % Low 40.0 - 52.0 % [facility] Hemoglobin (Bld) [Mass/Vol] 7.6 g/dL Low 13.0 - 18.0 g/dL [facility] Immature granulocytes (Bld) [#/Vol] 0 10*3/uL NINF - 0.1 10*3/uL [facility] Immature granulocytes/100 WBC (Bld) 0.3 % 0.0 - 2.0 % [facility] Interpretation and review of laboratory results Abnormal [facility] Lymphocytes (Bld) [#/Vol] 0.8 10*3/uL Low 1.0 - 4.3 10*3/uL [facility] Lymphocytes/100 WBC (Bld) 12.2 % Low 15.0 - 45.0 % [facility] MCH (RBC) [Entitic mass] 28.9 pg 26.0 - 34.0 pg [facility] MCHC (RBC) [Mass/Vol] 33.2 % 30.5 - 36.0 % [facility] MCV (RBC) [Entitic vol] 87.1 fL 77.0 - 99.0 fL [facility] Monocytes (Bld) [#/Vol] 0.4 10*3/uL 0.0 - 0.9 10*3/uL [facility] Monocytes/100 WBC (Bld) 6 % 5.0 - 13.0 % [facility] Neutrophils (Bld) [#/Vol] 5.2 10*3/uL 1.8 - 7.5 10*3/uL [facility] Neutrophils/100 WBC (Bld) 76 % 38.0 - 82.0 % [facility] Nucleated RBC/100 WBC (Bld) [Ratio] 0 % [facility] Platelet mean volume (Bld) [Entitic vol] 9.7 fL 9.0 - 12.7 fL [facility] Platelets (Bld) [#/Vol] 188 10*3/uL 140 - 440 10*3/uL [facility] RBC (Bld) [#/Vol] 2.63 10*6/uL Low 4.40 - 5.9 0 10*6/uL [facility] WBC (Bld) [#/Vol] 6.9 10*3/uL 3.6 - 10.7 10*3/uL [facility] CBC WITH AUTO DIFFERENTIALon 09-11-2024 Basophils (Bld) [#/Vol] 0.1 10*3/uL Normal 0.0-0.2 [facility] Comment on above: Performed By: #### L [id number] ####Digital Press Operator: CARMEL HOWARD ([phone])[place])[address] [place] [address] Basophils/100 WBC (Bld) 0.7 % Normal 0.0-2.0 [facility] Comment on above: Performed By: #### L [id number] ####Digital Press Operator: CARMEL HOWARD ([id number])[place])[address] [place] [address] Eosinophils (Bld) [#/Vol] 0.3 10*3/uL Normal 0.0-0.5 [facility] Comment on above: Performed By: #### L [id number] ####Digital Press Operator: CARMEL HOWARD ([phone])[place])[address] [place] [address] Eosinophils/100 WBC (Bld) 4.8 % Normal 0.0-6.0 [facility] Comment on above: Performed By: #### L [id number] ####Digital Press Operator: CARMEL HOWARD ([phone])[place])[address] [place] [address] Erythrocyte distribution width (RBC) [Ratio] 15.9 % High 11.5-15.0 [facility] Comment on above: Performed By: #### L [id number] ####Digital Press Operator: CARMEL HOWARD ([phone])[place])[address] [place] [address] Hematocrit (Bld) [Volume fraction] 22.9 % Low 40.0-52.0 [facility] Comment on above: Performed By: #### L [id number] ####Digital Press Operator: CARMEL HOWARD ([phone])[place])[address] [place] [address] Hemoglobin (Bld) [Mass/Vol] 7.6 g/dL Low 13.0-18.0 [facility] Comment on above: Performed By: #### L [id number] ####Digital Press Operator: CARMEL HOWARD ([phone])[place])[address] [place] [address] IMMATURE GRANS % 0.3 % Normal 0.0-2.0 [facility] Comment on above: Performed By: #### L [id number] ####Digital Press Operator: CARMEL HOWARD ([phone])[place])[address] [place] [address] IMMATURE GRANS ABSOLUTE 0.0 10*3/uL Normal <0.1 [facility] Comment on above: Performed By: #### L [id number] ####Digital Press Operator: CARMEL HOWARD ([phone])[place])[address] [place] [address] Lymphocytes (Bld) [#/Vol] 0.8 10*3/uL Low 1.0-4.3 [facility] Comment on above: Performed By: #### L [id number] ####Digital Press Operator: CARMEL HOWARD ([phone])[place])[address] [place] [address] Lymphocytes/100 WBC (Bld) 12.2 % Low 15.0-45.0 [facility] Comment on above: Performed By: #### L [id number] ####Digital Press Operator: CARMEL HOWARD ([id number])[place])[address] [place] [address] MCH (RBC) [Entitic mass] 28.9 pg Normal 26.0-34.0 [facility] Comment on above: Performed By: #### L [id number] ####Digital Press Operator: CARMEL HOWARD ([id number])[place])[address] [place] [address] MCHC 33.2 % Normal 30.5-36.0 [facility] Comment on above: Performed By: #### L [id number] ####Digital Press Operator: CARMEL HOWARD ([id number])[facility])[address] [place] [address] MCV (RBC) [Entitic vol] 87.1 fL Normal 77.0-99.0 [facility] Comment on above: Performed By: #### L [id number] ####Digital Press Operator: CARMEL HOWARD ([phone])[place])[address] [place] [address] Monocytes (Bld) [#/Vol] 0.4 10*3/uL Normal 0.0-0.9 [facility] Comment on above: Performed By: #### L [id number] ####Digital Press Operator: CARMEL HOWARD ([id number])[place])[address] [place] [address] Monocytes/100 WBC (Bld) 6.0 % Normal 5.0-13.0 [facility] Comment on above: Performed By: #### L [id number] ####Digital Press Operator: CARMEL HOWARD ([phone])[place])[address] [place] [address] NEUTROPHILS ABSOLUTE 5.2 10*3/uL Normal 1.8-7.5 [facility] Comment on above: Performed By: #### L [id number] ####Digital Press Operator: CARMEL HOWARD ([id number])[place])[address] [place] [address] Neutrophils/100 WBC (Bld) 76.0 % Normal 38.0-82.0 [facility] [facility] Comment on above: Performed By: #### L [id number] ####Digital Press Operator: CARMEL HOWARD ([phone])[facility] ([facility])[address] [place] [address] NRBC 0.0 /100 WBCs Normal 0.0-2.0 [facility] Comment on above: Performed By: #### L [id number] ####Digital Press Operator: CARMEL HOWARD ([phone])[facility] ([facility])[address] [place] [address] Platelet mean volume (Bld) [Entitic vol] 9.7 fL Normal 9.0-12.7 [facility] Comment on above: Performed By: #### L [id number] ####Digital Press Operator: CARMEL HOWARD ([id number])[facility] ([facility])[address] [place] [address] Platelets (Bld) [#/Vol] 188 10*3/uL Normal 140-440 [facility] Comment on above: Performed By: #### L [id number] ####Digital Press Operator: CARMEL HOWARD ([phone])[facility] ([facility])[address] [place] [address] RBC (Bld) [#/Vol] 2.63 10*6/uL Low 4.40-5.90 [facility] Comment on above: Performed By: #### L [id number] ####Digital Press Operator: CARMEL HOWARD ([id number])[facility] ([facility])[address] [place] [address] WBC (Bld) [#/Vol] 6.9 10*3/uL Normal 3.6-10.7 [facility] Comment on above: Performed By: #### L [id number] ####Digital Press Operator: CARMEL HOWARD ([phone])[place])[address] [place] [address] CT ABDOMEN PELVIS ANGIOGRAM W AND/OR WO IV CONTRASTon 09-11-2024 CT ABDOMEN PELVIS ANGIOGRAM W AND/OR WO IV CONTRAST Normal [facility] CT Abdomen and Pelvis W cont rast Jose Luis 09-11-2024 No acute findings. Report Dictated on Electronically Signed By: Brady Roe MD Electronically Signed Date/Time: 09/11/2024 5:21 PM EDT [facility] Patient Name: LAINE GARCIA : [...] without intravenous contrast, 3-D rendering performed by me on an independent workstation Dose reduction was employed with automated exposure control. Slight aortoiliac calcified atherosclerosis. The celiac trunk, SMA, OLEKSANDR and gastroduodenal artery are widely patent. No evidence of active GI bleeding. Small hepatic cysts. Bilateral small renal cysts. Follow up imaging of the cysts is not required. IVC filter. No bowel inflammation or obstruction. No free fluid. The bladder is unremarkable. [facility] Brady Roe MD - 09/11/2024 Patient Name: LAINE GARCIA : 1955 Exam [...] without intravenous contrast, 3-D rendering performed by me on an independent workstation Dose reduction was [...] Electronically Signed Date/Time: 09/11/2024 5:21 PM EDT [facility] Radiology Study observation (narrative) [facility] CT Abdomen and Pelvis W cont rast IVOrdered By: Brady Roe on 09-11-2024 [facility] [employer] Work Phone: HEMOGLOBIN AND HEMATOCRIT, B LOODon 09-11-2024 Hematocrit (Bld) [Volume fraction] 23.1 % Low 40.0-52.0 [facility] Comment on above: Performed By: #### L [id number] ####Digital Press Operator: CARMEL HOWARD ([phone])[facility] ([facility])[address] [place] [address] Hemoglobin (Bld) [Mass/Vol] 7.7 g/dL Low 13.0-18.0 [facility] Comment on above: Performed By: #### L [id number] ####Digital Press Operator: CARMEL HOWARD ([phone])[facility] ([facility])[address] [place] [address] Hemoglobin (Bld) [Mass/Vol]o n 09-11-2024 Hematocrit (Bld) [Volume fraction] 23.1 % Low 40.0 - 52.0 % [facility] Interpretation and review of laboratory results Abnormal [facility] Laboratory - Chemistry and C hemistry - challengeon 09-11-2024 Magnesium [Mass/Vol] 1.8 mg/dL 1.6 - 2 .6 mg/dL [facility] Laboratory - Hematology and Cell countson 09-11-2024 Hemoglobin (Bld) [Mass/Vol] 7.7 g/dL Low 13.0 - 18.0 g/dL [facility] MAGNESIUMon 09-11-2024 Magnesium [Mass/Vol] 1.8 mg/dL Normal 1.6-2.6 [facility] Comment on above: Result Comment: MARTINEZ R COMMENTS:Higher values can be expected in females during menses. Performed By: #### L [id number], [id number], LAB15 ####Digital Press Operator: CARMEL HOWARD ([phone])[place])[address] [place] [address] Magnesium [Mass/Vol]on 09-11 Higher values can be expected in females during menses. [facility] No Panel Informationon 09-11 Interpretation and review of laboratory results Normal [facility] Nursing Noteon 09-11-2024 Nursing Note Wound Care consulted for Pressure Injury Prevention. Pt's Siva= 20, pt is no longer at risk at this time. Will continue to follow peripherally. Please vocera or secure chat message with any questions. Radha Waller RN, CWCN Normal [facility] PHOSPHORUSon 09-11-2024 Phosphate [Mass/Vol] 2.4 mg/dL Normal 2.3-4.7 [facility] Comment on above: Performed By: #### L AB103, [id number], LAB15 ####Digital Press Operator: CARMEL HOWARD ([phone])[facility] ([facility])[address] [place] [address] [place] Phosphate [Moles/Vol]on Phosphate [Mass/Vol] 2.4 mg/dL 2.3 - 4 .7 mg/dL [facility] Progress Noteon 09-11-2024 Progress Note Normal [facility] Progress Note Normal [facility] Progress Note Nutrition rescreen completed. Chart reviewed. Patient to be monitored and followed by the diet earth science technician. Normal [facility] Progress Note Normal [facility] Progress Note Normal [facility] 30on 09-10-2024 30 Normal [facility] [id number] 09-10-2024 [id number] Normal [facility] BASIC METABOLIC PANELon Anion gap [Moles/Vol] 2 mmol/L Low 3-13 [facility] Comment on above: Performed By: #### L AB103, LAB15, [id number] ####Digital Press Operator: CARMEL HOWARD ([phone])[facility] ([facility])[address] [place] [address] Calcium [Mass/Vol] 7.2 mg/dL Low 8.8-10.0 [facility] Comment on above: Performed By: #### L AB103, LAB15, [id number] ####Digital Press Operator: CARMEL HOWARD ([phone])[facility] [place] [address] Chloride [Moles/Vol] 111 mmol/L High 98-107 [facility] Comment on above: Performed By: #### L AB103, LAB15, [id number] ####Digital Press Operator: CARMEL HOWARD ([phone])[facility] ([facility])[address] [place] [address] CO2 [Moles/Vol] 26 mmol/L Normal 23-31 [facility] Comment on above: Performed By: #### Lily AB103, LAB15, [id number] ####Digital Press Operator: CARMEL HOWARD ([phone])[facility] ([facility])[address] [place] [address] Creatinine [Mass/Vol] 0.65 mg/dL Low 0.72-1.25 [facility] Comment on above: Performed By: #### Lily AB103, LAB15, ATT333 ####Digital Press Operator: CARMEL HOWARD ([phone])[facility] ([facility])[address] [place] [address] GLOMERULAR FILTRATION RATE ML/MIN/1.73 SQ M.PREDICTED >90.0 Normal >60.0 [facility] Comment on above: Result Comment: Calc ulation based on the Chronic Kidney Disease Epidemiology Collaboration (CKD-EPI) equation refit without adjustment for race Performed By: #### L AB103, LAB15, [id number] ####Digital Press Operator: CARMEL HOWARD ([phone])[facility] ([facility])[address] [place] [address] Glucose [Mass/Vol] 110 mg/dL Normal 82-115 [facility] Comment on above: Performed By: #### L AB103, LAB15, [id number] ####Digital Press Operator: CARMEL [id number])[facility] ([facility])[address] [place] [address] Potassium [Moles/Vol] 3.9 mmol/L Normal 3.5-5.1 [facility] Comment on above: Result Comment: [facility] potassium values may be up to 0.5 mmol/L lower than serum values. Performed By: #### L AB103, LAB15, [id number] ####Digital Press Operator: CRAMEL HOWARD ([phone])[facility] ([facility])[address] [place] [address] Sodium [Moles/Vol] 139 mmol/L Normal 136-145 [facility] Comment on above: Performed By: #### L AB103, LAB15, [id number] ####Digital Press Operator: CARMEL HOWARD ([phone])[place])[address] [place] [address] Urea nitrogen [Mass/Vol] 40 mg/dL High 9-23 [facility] Comment on above: Performed By: #### L AB103, LAB15, [id number] ####Digital Press Operator: CARMEL HOWARD ([phone])[facility] ([facility])[address] [place] [address] Basic metabolic 1998 panelOr dered By: Quirino Rucker on 09-10-2024 Anion gap [Moles/Vol] 2 mmol/L Low 3 - 13 mmol/L [facility] Calcium [Mass/Vol] 7.2 mg/dL Low 8.8 - 10. 0 mg/dL [facility] Chloride [Moles/Vol] 111 mmol/L High 98 - 10 7 mmol/L [facility] CO2 [Moles/Vol] 26 mmol/L 23 - 31 mmol/L [facility] Creatinine [Mass/Vol] 0.65 mg/dL Low 0.72 - 1.25 mg/dL [facility] GFR/1.73 sq M.predicted (S/P/Bld) [Vol rate/Area] - PINF [facility] Comment on above: Calculation based on the Chronic Kidney Disease Epidemiology Collaboration (CKD-EPI) equation refit without adjustment for race Glucose [Mass/Vol] 110 mg/dL 82 - 115 mg/dL [facility] Interpretation and review of laboratory results Abnormal [facility] Potassium [Moles/Vol] 3.9 mmol/L 3.5 - 5.1 mmol/L [facility] Comment on above: Plasma potassium shruthi ues may be up to 0.5 mmol/L lower than serum values. Sodium [Moles/Vol] 139 mmol/L 136 - 145 mmol/L [facility] Urea nitrogen [Mass/Vol] 40 mg/dL High 9 - 23 mg/dL [facility] CBC W Auto Differential pane l (Bld)on 09-10-2024 Basophils (Bld) [#/Vol] 0 10*3/uL 0.0 - 0.2 10*3/uL [facility] Basophils/100 WBC (Bld) 0.4 % 0.0 - 2.0 % [facility] Eosinophils (Bld) [#/Vol] 0.1 10*3/uL 0.0 - 0.5 10*3/uL [facility] Eosinophils/100 WBC (Bld) 1.3 % 0.0 - 6.0 % [facility] Erythrocyte distribution width (RBC) [Ratio] 16 % High 11.5 - 15.0 % [facility] Hematocrit (Bld) [Volume fraction] 21.5 % Low 40.0 - 52.0 % [facility] Hemoglobin (Bld) [Mass/Vol] 7.1 g/dL Low 13.0 - 18.0 g/dL [facility] Immature granulocytes (Bld) [#/Vol] 0.1 10*3/uL High NINF - 0.1 10*3/uL [facility] Immature granulocytes/100 WBC (Bld) 0.5 % 0.0 - 2.0 % [facility] Interpretation and review of laboratory results Abnormal [facility] Lymphocytes (Bld) [#/Vol] 1 10*3/uL 1.0 - 4.3 10*3/uL [facility] Lymphocytes/100 WBC (Bld) 9.3 % Low 15.0 - 45.0 % [facility] MCH (RBC) [Entitic mass] 29.2 pg 26.0 - 34.0 pg [facility] MCHC (RBC) [Mass/Vol] 33 % 30.5 - 36.0 % [facility] MCV (RBC) [Entitic vol] 88.5 fL 77.0 - 99.0 fL [facility] Monocytes (Bld) [#/Vol] 0.6 10*3/uL 0.0 - 0.9 10*3/uL [facility] Monocytes/100 WBC (Bld) 5.7 % 5.0 - 13.0 % [facility] Neutrophils (Bld) [#/Vol] 8.5 10*3/uL High 1.8 - 7.5 10*3/uL [facility] Neutrophils/100 WBC (Bld) 82.8 % High 38.0 - 82.0 % [facility] Nucleated RBC/100 WBC (Bld) [Ratio] 0 % [facility] Platelet mean volume (Bld) [Entitic vol] 9.5 fL 9.0 - 12.7 fL [facility] Platelets (Bld) [#/Vol] 205 10*3/uL 140 - 440 10*3/uL [facility] RBC (Bld) [#/Vol] 2.43 10*6/uL Low 4.40 - 5.9 0 10*6/uL [facility] WBC (Bld) [#/Vol] 10.2 10*3/uL 3.6 - 10.7 10*3/uL [facility] CBC WITH AUTO DIFFERENTIALon 09-10-2024 Basophils (Bld) [#/Vol] 0.0 10*3/uL Normal 0.0-0.2 [facility] Comment on above: Performed By: #### L [id number] ####Digital Press Operator: CARMEL HOWARD ([phone])[address] Basophils/100 WBC (Bld) 0.4 % Normal 0.0-2.0 [facility] Comment on above: Performed By: #### L [id number] ####Digital Press Operator: CARMEL [id number])[facility] ([facility])[address] [place] [address] Eosinophils (Bld) [#/Vol] 0.1 10*3/uL Normal 0.0-0.5 [facility] Comment on above: Performed By: #### L [id number] ####Digital Press Operator: CARMEL [id number])[facility] [address] Eosinophils/100 WBC (Bld) 1.3 % Normal 0.0-6.0 [facility] Comment on above: Performed By: #### L [id number] ####Digital Press Operator: CARMEL HOWARD ([phone])[place])[address] [place] [address] Erythrocyte distribution width (RBC) [Ratio] 16.0 % High 11.5-15.0 [facility] Comment on above: Performed By: #### L [id number] ####Digital Press Operator: CARMEL HOWARD ([phone])[address] Hematocrit (Bld) [Volume fraction] 21.5 % Low 40.0-52.0 [facility] Comment on above: Performed By: #### L [id number] ####Digital Press Operator: CARMEL HOWARD ([phone])[place])[address] [place] [address] Hemoglobin (Bld) [Mass/Vol] 7.1 g/dL Low 13.0-18.0 [facility] Comment on above: Performed By: #### L [id number] ####Digital Press Operator: CARMEL HOWARD ([phone])[place])[address] [place] [address] IMMATURE GRANS % 0.5 % Normal 0.0-2.0 [facility] Comment on above: Performed By: #### L [id number] ####Digital Press Operator: CARMEL HOWARD ([phone])[place])[address] [place] [address] IMMATURE GRANS ABSOLUTE 0.1 10*3/uL High <0.1 [facility] Comment on above: Performed By: #### L [id number] ####Digital Press Operator: CARMEL HOWARD ([phone])[place])[address] [place] [address] Lymphocytes (Bld) [#/Vol] 1.0 10*3/uL Normal 1.0-4.3 [facility] Comment on above: Performed By: #### L [id number] ####Digital Press Operator: CARMEL HOWARD ([phone])[place])[address] [place] [address] Lymphocytes/100 WBC (Bld) 9.3 % Low 15.0-45.0 [facility] Comment on above: Performed By: #### L [id number] ####Digital Press Operator: CARMEL HOWARD ([phone])[place])[address] [place] [address] MCH (RBC) [Entitic mass] 29.2 pg Normal 26.0-34.0 [facility] Comment on above: Performed By: #### L [id number] ####Digital Press Operator: CARMEL HOWARD ([id number])[place])[address] [place] [address] MCHC 33.0 % Normal 30.5-36.0 [facility] Comment on above: Performed By: #### L [id number] ####Digital Press Operator: CARMEL HOWARD ([id number])[place])[address] [place] [address] MCV (RBC) [Entitic vol] 88.5 fL Normal 77.0-99.0 [facility] Comment on above: Performed By: #### L [id number] ####Digital Press Operator: CARMEL HOWARD ([phone])[place])[address] [place] [address] Monocytes (Bld) [#/Vol] 0.6 10*3/uL Normal 0.0-0.9 [facility] Comment on above: Performed By: #### L [id number] ####Digital Press Operator: CARMEL HOWARD ([phone])[place])[address] [place] [address] Monocytes/100 WBC (Bld) 5.7 % Normal 5.0-13.0 [facility] Comment on above: Performed By: #### L [id number] ####Digital Press Operator: CARMEL HOWARD ([phone])[facility] ([facility])[address] [place] [address] NEUTROPHILS ABSOLUTE 8.5 10*3/uL High 1.8-7.5 [facility] Comment on above: Performed By: #### L [id number] ####Digital Press Operator: CARMEL HOWARD ([id number])[facility] ([facility])[address] [place] [address] Neutrophils/100 WBC (Bld) 82.8 % High 38.0-82.0 [facility] Comment on above: Performed By: #### L [id number] ####Digital Press Operator: CARMEL HOWARD ([phone])[facility] ([facility])[address] [place] [address] NRBC 0.0 /100 WBCs Normal 0.0-2.0 [facility] Comment on above: Performed By: #### L [id number] ####Digital Press Operator: CARMEL HOWARD ([phone])[facility] ([facility])[address] [place] [address] Platelet mean volume (Bld) [Entitic vol] 9.5 fL Normal 9.0-12.7 [facility] Comment on above: Performed By: #### L [id number] ####Digital Press Operator: CARMEL HOWARD ([phone])[facility] ([facility])[address] [place] [address] Platelets (Bld) [#/Vol] 205 10*3/uL Normal 140-440 [facility] Comment on above: Performed By: #### L [id number] ####Digital Press Operator: CARMEL HOWARD ([id number])[facility] ([facility])[address] [place] [address] RBC (Bld) [#/Vol] 2.43 10*6/uL Low 4.40-5.90 [facility] Comment on above: Performed By: #### L [id number] ####Digital Press Operator: CARMEL HOWARD ([phone])[facility] ([facility])[address] [place] [address] WBC (Bld) [#/Vol] 10.2 10*3/uL Normal 3.6-10.7 [facility] Comment on above: Performed By: #### L [id number] ####Digital Press Operator: CARMEL HOWARD ([phone])[facility] ([facility])[address] [place] [address] Coagulation index TEG Qn (Bl d)Ordered By: Yg Schofield on 09-10-2024 APTEM A10 57 mm 50 - 70 mm [facility] AP[facility] A20 63 mm 50 - 70 mm [facility] Clot angle TEG (Bld) [Angle] 77 [facility] Clot formation.extrinsic coagulation system activated Rotational TEG (Bld) [Time] 62 s 43 - 82 s [facility] Clot formation.extrinsic coagulation system activated Rotational TEG (Bld) [Time] 72 s 48 - 127 s [facility] Clot formation.extrinsic coagulation system activated Rotational TEG (Bld) [Time] 76 [facility] Clot formation.extrinsic coagulation system activated Rotational TEG (Bld) [Time] 57 mm 50 - 70 mm [facility] Clot formation.extrinsic coagulation system activated Rotational TEG (Bld) [Time] 63 mm 52 - 70 mm [facility] Clot formation.extrinsic coagulation system activated.fibrinolysis suppressed Rotational TEG (Bld) [Time] 67 s 48 - 127 s [facility] Clot formation.extrinsic coagulation system activated.fibrinolysis suppressed Rotational TEG (Bld) [Time] 20 mm 7 - 24 mm [facility] Clot formation.extrinsic coagulation system activated.fibrinolysis suppressed Rotational TEG (Bld) [Time] 21 mm [facility] Clotting time.extrinsic coagulation system activated.fibrinolysis suppressed Rotational TEG (Bld) 56 s 43 - 82 s [facility] Maximum clot firmness.extrinsic coagulation system activated.fibrinolysis suppressed Rotational TEG (Bld) [Length] 63 mm 52 - 70 mm [facility] Consulton 09-10-2024 Consult Normal [facility] HEMOGLOBIN AND HEMATOCRIT, B LOODon 09-10-2024 Hematocrit (Bld) [Volume fraction] 24.3 % Low 40.0-52.0 [facility] Comment on above: Performed By: #### L [id number] ####Digital Press Operator: CARMEL HOWARD ([phone])[facility] ([facility])[address] [place] [address] Hemoglobin (Bld) [Mass/Vol] 7.9 g/dL Low 13.0-18.0 [facility] Comment on above: Performed By: #### L [id number] ####Digital Press Operator: CARMEL HOWARD ([id number])[facility] ([facility])[address] [place] [address] Hematocrit (Bld) [Volume fraction] 23.7 % Low 40.0-52.0 [facility] Comment on above: Performed By: #### L [id number] ####Digital Press Operator: CARMEL HOWARD ([id number])[place])[address] [place] [address] Hemoglobin (Bld) [Mass/Vol] 7.7 g/dL Low 13.0-18.0 [facility] Comment on above: Performed By: #### L [id number] ####Digital Press Operator: CARMEL HOWARD ([id number])[facility] ([facility])[address] [place] [address] Hematocrit (Bld) [Volume fraction] 21.8 % Low 40.0-52.0 [facility] Comment on above: Performed By: #### L [id number] ####Digital Press Operator: CARMEL HOWARD ([phone])[facility] ([facility])[address] [place] [address] Hemoglobin (Bld) [Mass/Vol] 7.0 g/dL Low 13.0-18.0 [facility] Comment on above: Performed By: #### L [id number] ####Digital Press Operator: CARMEL HOWARD ([id number])[facility] ([facility])[address] [place] [address] [place] Hemoglobin (Bld) [Mass/Vol]o n 09-10-2024 Hematocrit (Bld) [Volume fraction] 24.3 % Low 40.0 - 52.0 % [facility] Interpretation and review of laboratory results Abnormal [facility] Hematocrit (Bld) [Volume fraction] 23.7 % Low 40.0 - 52.0 % [facility] Interpretation and review of laboratory results Abnormal [facility] Hematocrit (Bld) [Volume fraction] 21.8 % Low 40.0 - 52.0 % [facility] Interpretation and review of laboratory results Abnormal [facility] Laboratory - Chemistry and C hemistry - challengeon 09-10-2024 Magnesium [Mass/Vol] 1.8 mg/dL 1.6 - 2 .6 mg/dL [facility] Laboratory - Hematology and Cell countson 09-10-2024 Hemoglobin (Bld) [Mass/Vol] 7.9 g/dL Low 13.0 - 18.0 g/dL [facility] Hemoglobin (Bld) [Mass/Vol] 7.7 g/dL Low 13.0 - 18.0 g/dL [facility] Hemoglobin (Bld) [Mass/Vol] 7 g/dL Low 13.0 - 18.0 g/dL [facility] MAGNESIUMon 09-10-2024 Magnesium [Mass/Vol] 1.8 mg/dL Normal 1.6-2.6 [facility] Comment on above: Result Comment: MARTINEZ Veliz COMMENTS:Higher values can be expected in females during menses. Performed By: #### L AB103, LAB15, KVS609 ####Digital Press Operator: CARMEL HOWARD ([phone])[address] Magnesium [Mass/Vol]on 09-10 Higher values can be expected in females during menses. [facility] No Panel Informationon 09-10 Blood Expiration Date [id number] S [facility] Crossmatch interpretation COMP [facility] Dispense Status Transfused [facility] Product Blood Type 5100 [facility] PRODUCT CODE [id number] [facility] Unit ABO O [facility] Unit Number [id number] [facility] alth Unit RH Positive [facility] Unit Volume 300 mL [facility] Interpretation and review of laboratory results Normal [facility] PHOSPHORUSon 09-10-2024 Phosphate [Mass/Vol] 2.9 mg/dL Normal 2.3-4.7 [facility] Comment on above: Performed By: #### L AB103, LAB15, EMO135 ####Digital Press Operator: CARMEL HOWARD ([phone])[facility] ([facility])[address] [place] [address] [place] Phosphate [Moles/Vol]on Phosphate [Mass/Vol] 2.9 mg/dL 2.3 - 4 .7 mg/dL [facility] Progress Noteon 09-10-2024 Progress Note [facility] Progress Note Normal [facility] [facility] YESY TRAUMA PANELon 025 APTEM A10 57 mm Normal 50-70 [facility] Comment on above: Performed By: #### L [id number] ####Digital Press Operator: CARMEL HOWARD ([phone])[facility] ([facility])[address] [place] [address] [place] APTEM A20 63 mm Normal 50-70 [facility] Comment on above: Performed By: #### L [id number] ####Digital Press Operator: CARMEL HOWARD ([id number])[facility] ([facility])[address] [place] [address] [place] APTEM ALPHA 77 DEGREES Normal 65-80 [facility] Comment on above: Performed By: #### L [id number] ####Digital Press Operator: CARMEL HOWARD ([id number])[facility] ([facility])[address] [place] [address] [place] APTEM CLOT FORMATION TIME 67 s Normal 48-127 [facility] Comment on above: Performed By: #### L [id number] ####Digital Press Operator: CARMEL HOWARD ([phone])[facility] ([facility])[address] [place] [address] [place] APTEM CLOTTING TIME 56 s Normal 43-82 [facility] Comment on above: Performed By: #### L [id number] ####Digital Press Operator: CARMEL HOWARD ([phone])[facility] ([facility])[address] [place] [address] [place] APTEM MAXIMUM CLOT FIRMNESS 63 mm Normal 52-70 [facility] Comment on above: Performed By: #### L [id number] ####Digital Press Operator: CARMEL HOWARD ([phone])[facility] ([facility])[address] [place] [address] [place] EXTEM A10 57 mm Normal 50-70 [facility] Comment on above: Performed By: #### L [id number] ####Digital Press Operator: CARMEL HOWARD ([phone])[facility] ([facility])[address] [place] [address] [place] EXTEM A20 63 mm Normal 50-70 [facility] Comment on above: Performed By: #### L [id number] ####Digital Press Operator: CARMEL HOWARD ([id number])[facility] ([facility])[address] [place] [address] [place] EXTEM ALPHA 76 DEGREES Normal 65-80 [facility] Comment on above: Performed By: #### L [id number] ####Digital Press Operator: CARMEL HOWARD ([phone])[facility] ([facility])[address] [place] [address] EXTEM CLOT FORMATION TIME 72 s Normal 48-127 [facility] Comment on above: Performed By: #### L [id number] ####Digital Press Operator: CARMEL HOWARD ([phone])[facility] ([facility])[address] [place] [address] EXTEM CLOTTING TIME 62 s Normal 43-82 [facility] Comment on above: Performed By: #### L [id number] ####Digital Press Operator: CARMEL HOWARD ([phone])[facility] ([facility])[address] [place] [address] EXTEM MAXIMUM CLOT FIRMNESS 63 mm Normal 52-70 [facility] Comment on above: Performed By: #### L [id number] ####Digital Press Operator: CARMEL HOWARD ([phone])[facility] ([facility])[address] [place] [address] [place] FIBTEM A10 20 mm Normal [facility] Comment on above: Performed By: #### L [id number] ####Digital Press Operator: CARMEL HOWARD ([phone])[facility] ([facility])[address] FIBTEM A20 21 mm Normal [facility] Comment on above: Performed By: #### L [id number] ####Digital Press Operator: CARMEL HOWARD ([phone])[facility] ([facility])[address] [place] [address] FIBTEM MAXIMUM CLOT FIRMNESS 20 mm Normal 7-24 [facility] Comment on above: Performed By: #### L [id number] ####Digital Press Operator: CARMEL BENJYDeon ([phone])[facility] ([facility])[address] [place] [address] 12 Lead EKGon 09-09-2024 12 Lead EKG [facility] [address] [place] [address] 12 Lead EKG 09/09/24 0751 MR#: [id number] Acct: [id number] Name: LAINE GARCIA Ned Rep #: [id number] : 1955 69 From: Karen Bond MD Attending Dr: Status: DEP ER Ordering Dr: Sy Urena MD Date: 09/09/24 Location: ED Sex: M C Admitted: Test Reason : Blood Pressure : */* mmHG Vent. Rate : 64 BPM Atrial Rate : 64 BPM P-R Int : 134 ms QRS Dur : 88 ms QT Int : 436 ms P-R-T Axes : 54 -8 8 degrees QTcB Int : 449 ms Normal sinus rhythm with sinus arrhythmia Nonspecific ST abnormality Abnormal ECG Confirmed by CHIDI OWENS, IWONA ([id number]), film and video editor RACHANA ASTORGA ([id number]) on 09/11/2024 6:12:15 AM Referred By: Confirmed By: IWONA BOND MD 09/11/24 0612 Date Karen Bond MD CC: Dr. Dante Gurrola MD; Dr. Sy Urena MD Signed Normal [facility] Absolute lymphocyte countOrd ered By: Sy Urena on 09-09-2024 Lymphocytes Auto (Unsp spec) [#/Vol] 0.73 10*3/uL Low 0.83-4.51 [facility] Absolute neutrophil countOrd ered By: Syelvia Urena on 09-09-2024 Neutrophils (Bld) [#/Vol] 9.2 10*3/uL High 2.0-7.7 [facility] Anion gap in Serum or Plasma Ordered By: Sy Urena on 09-09-2024 Anion gap [Moles/Vol] 7 mmol/L 5-15 [facility] Automated lymphocyte count a s percentage of total leukocytesOrdered By: Sy Urena on 09-09-2024 Lymphocytes/100 WBC Auto (Unsp spec) 6.9 % Low 19-41 [facility] BLOOD TYPE AND SCREEN GELon 09-09-2024 ABO GROUPING O Normal [facility] Comment on above: Performed By: #### L [id number] ####Digital Press Operator: CARMEL HOWARD ([phone])[facility] ([facility])[address] [place] [address] RH TYPE IN BLOOD Positive Normal [facility] Comment on above: Performed By: #### L [id number] ####Digital Press Operator: CARMEL HOWARD ([phone])[facility] ([facility])[address] [place] [address] [place] BLRBCon 09-09-[address] [facility] Comment on above: Result Comment: [id number] OP LRBC TRANSFUSED 09/09/24 0750 Performed By: #### L 500.4050, L100.0100 #### [facility] [address] [place], [address] BUN/creatinine ratioOrdered By: Sy Urena on 09-09-2024 Urea nitrogen/Creatinine [Mass ratio] 32.8 mg/mg High 10- [facility] Basic Metabolic Profile (BMP )on 09-09-2024 BUN/CRE 32.8 RATIO High 01-22 [facility] Comment on above: Performed By: #### L 500.4050, L100.0100 #### [facility] [address] [place], [address] Calcium [Mass/Vol] 7.4 mg/dL Low 7.6-11.0 [facility] Comment on above: Performed By: #### L 500.4050, L100.0100 #### [facility] [address] [place], [address] Chloride [Moles/Vol] 108 mmol/L Normal 98-108 [facility] Comment on above: Performed By: #### L 500.4050, L100.0100 #### [facility] [address] [place], [address] CO2 [Moles/Vol] 25.7 mmol/L Normal 21.0-32.0 [facility] Comment on above: Performed By: #### L 500.4050, L100.0100 #### [facility] [address] [place], [address] Creatinine [Mass/Vol] 0.72 mg/dL Normal 0.70-1.20 [facility] Comment on above: Performed By: #### L 500.4050, L100.0100 #### [facility] [address] [place], [address] ECRCL 88.72 ml/min Normal 50-250 [facility] Comment on above: Performed By: #### L 500.4050, L100.0100 #### [facility] [address] [place], [address] GAP 7 Normal 5-15 [facility] Comment on above: Performed By: #### L 500.4050, L100.0100 #### [facility] [address] [place], [address] GFR/1.73 sq M.predicted among non-blacks MDRD (S/P/Bld) [Vol rate/Area] 98 mL/min/{1.73_m2} Normal >60 [facility] Comment on above: Result Comment: mL/m in/1.73m2 CKD-EPI Creatinine Equation (2020) Performed By: #### L 500.4050, L100.0100 #### [facility] [address] [place], [address] Glucose [Mass/Vol] 177 mg/dL High 70-99 [facility] Comment on above: Performed By: #### L 500.4050, L100.0100 #### [facility] [address] [place], [address] Potassium [Moles/Vol] 4.6 mmol/L Normal 3.3-5.1 [facility] Comment on above: Performed By: #### L 500.4050, L100.0100 #### [facility] [address] [place], [address] Sodium [Moles/Vol] 141 mmol/L Normal 133-145 [facility] Comment on above: Performed By: #### L 500.4050, L100.0100 #### [facility] [address] [place], [address] Urea nitrogen [Mass/Vol] 24 mg/dL High 4-19 [facility] Comment on above: Performed By: #### L 500.4050, L100.0100 #### [facility] [address] [place], [address] Basophil percentageOrdered B y: Sy Urena on 09-09-2024 Basophils/100 WBC (Bld) 0.1 % 0-1 [facility] Blood type and Crossmatch maddie jacobs (Bld)on 09-09-2024 ABO group Nom (Bld) O [facility] Blood group antibody screen GEL Ql Negative [facility] D Ag Ql (RBC) Positive [facility] CBC W Auto Differential pane l (Bld)Ordered By: Julian Granados on 09-09-2024 Erythrocyte distribution width (RBC) [Ratio] 15.5 % High 11.5 - 15.0 % [facility] Hematocrit (Bld) [Volume fraction] 24.3 % Low 40.0 - 52.0 % [facility] Hemoglobin (Bld) [Mass/Vol] 7.8 g/dL Low 13.0 - 18.0 g/dL [facility] Interpretation and review of laboratory results Abnormal [facility] MCH (RBC) [Entitic mass] 28.9 pg 26.0 - 34.0 pg [facility] MCHC (RBC) [Mass/Vol] 32.1 % 30.5 - 36.0 % [facility] MCV (RBC) [Entitic vol] 90 fL 77.0 - 99.0 fL [facility] Platelet mean volume (Bld) [Entitic vol] 9.8 fL 9.0 - 12.7 fL [facility] Platelets (Bld) [#/Vol] 211 10*3/uL 140 - 440 10*3/uL [facility] RBC (Bld) [#/Vol] 2.7 10*6/uL Low 4.40 - 5.9 0 10*6/uL [facility] WBC (Bld) [#/Vol] 15.1 10*3/uL High 3.6 - 10.7 10*3/uL [facility] CBC W/Diff, Automatedon 06-0 Absolute Lymph 0.73 X10 3/uL Low 0.83-4.51 [facility] Comment on above: Performed By: #### L 500.4050, L100.0100 #### [facility] [address] [place], [address] Absolute Neut 9.2 X10 3/uL High 2.0-7.7 [facility] Comment on above: Performed By: #### L 500.4050, L100.0100 #### [facility] [address] [place], [address] Basophils/100 WBC (Bld) 0.1 % Normal 0-1 [facility] Comment on above: Performed By: #### L 500.4050, L100.0100 #### [facility] [address] [place], [address] Eosinophils/100 WBC (Bld) 1.6 % Normal 0-5 [facility] Comment on above: Performed By: #### L 500.4050, L100.0100 #### [facility] [address] [place], [address] Erythrocyte distribution width (RBC) [Ratio] 15.5 % High 11.6-14.6 [facility] Comment on above: Performed By: #### L 500.4050, L100.0100 #### [facility] [address] [place], [address] Hematocrit (Bld) [Volume fraction] 20.8 % Low 40-54 [facility] Comment on above: Performed By: #### L 500.4050, L100.0100 #### [facility] [address] [place], [address] Hemoglobin (Bld) [Mass/Vol] 6.6 g/dL Low 13.0-16.5 [facility] Comment on above: Performed By: #### L 500.4050, L100.0100 #### [facility] [address] [place], [address] IG% 0.600 Normal 0.0-0.9 [facility] Comment on above: Result Comment: IG% - Immature Granulocytes (promyelocytes, myelocytes and metamyelocytes) > 1% indicates that a LEFT SHIFT is Present. Performed By: #### L 500.4050, L100.0100 #### [facility] [address] [place], [address] Lymphocytes/100 WBC (Bld) 6.9 % Low 19-41 [facility] Comment on above: Performed By: #### L 500.4050, L100.0100 #### [facility] [address] [place], [address] MCH (RBC) [Entitic mass] 29.1 pg Normal 27.0-32.0 [facility] Comment on above: Performed By: #### L 500.4050, L100.0100 #### [facility] [address] [place], [address] MCHC (RBC) [Mass/Vol] 31.7 g/dL Low 32-36 [facility] Comment on above: Performed By: #### L 500.4050, L100.0100 #### [facility] [address] [place], [address] MCV (RBC) [Entitic vol] 91.6 fL Normal 80-94 [facility] Comment on above: Performed By: #### L 500.4050, L100.0100 #### [facility] [address] [place], [address] Monocytes/100 WBC (Bld) 3.8 % Normal 0-10 [facility] Comment on above: Performed By: #### L 500.4050, L100.0100 #### [facility] [address] [place], [address] Neutrophils/100 WBC (Bld) 87.0 % High 47-70 [facility] Comment on above: Performed By: #### L 500.4050, L100.0100 #### [facility] [address] [place], [address] Nucleated RBC (Bld) [#/Vol] 0 10*3/uL Normal 0-5 [facility] Comment on above: Performed By: #### L 500.4050, L100.0100 #### [facility] [address] [place], [address] Platelet mean volume (Bld) [Entitic vol] 9.5 fL Normal 6.2-12.0 [facility] Comment on above: Performed By: #### L 500.4050, L100.0100 #### [facility] [address] [place], [address] Platelets (Bld) [#/Vol] 217 10*3/uL Normal 150-450 [facility] Comment on above: Performed By: #### L 500.4050, L100.0100 #### [facility] [address] [place], [address] RBC (Bld) [#/Vol] 2.27 10*6/uL Low 4.6-6.2 [facility] Comment on above: Performed By: #### L 500.4050, L100.0100 #### [facility] [address] [place], [address] RDW SD 51.1 fl High 35.1-43.9 [facility] Comment on above: Performed By: #### L 500.4050, L100.0100 #### [facility] [address] [place], [address] WBC (Bld) [#/Vol] 10.6 10*3/uL Normal 4.4-11.0 [facility] Comment on above: Performed By: #### L 500.4050, L100.0100 #### [facility] [address] [place], [address] CBC WITH AUTO DIFFERENTIALon 09-09-2024 Erythrocyte distribution width (RBC) [Ratio] 15.5 % High 11.5-15.0 [facility] Comment on above: Performed By: #### L [id number], [id number] ####Digital Press Operator: CARMEL HOWARD ([id number])[facility] ([address] [place] [address] Hematocrit (Bld) [Volume fraction] 24.3 % Low 40.0-52.0 [facility] Comment on above: Performed By: #### L [id number], [id number] ####Digital Press Operator: CARMEL HOWARD ([phone])[place])[address] [place] [address] Hemoglobin (Bld) [Mass/Vol] 7.8 g/dL Low 13.0-18.0 [facility] Comment on above: Performed By: #### L [id number], [id number] ####Digital Press Operator: CARMEL HOWARD ([phone])[place])[address] [place] [address] MCH (RBC) [Entitic mass] 28.9 pg Normal 26.0-34.0 [facility] Comment on above: Performed By: #### L [id number], [id number] ####Digital Press Operator: CARMEL HOWARD ([phone])[place])[address] [place] [address] MCHC 32.1 % Normal 30.5-36.0 [facility] Comment on above: Performed By: #### L [id number], [id number] ####Digital Press Operator: CARMEL HOWARD ([phone])[place])[address] [place] [address] MCV (RBC) [Entitic vol] 90.0 fL Normal 77.0-99.0 [facility] Comment on above: Performed By: #### L [id number], [id number] ####Digital Press Operator: CARMEL HOWARD ([phone])[place])[address] [place] [address] Platelet mean volume (Bld) [Entitic vol] 9.8 fL Normal 9.0-12.7 [facility] Comment on above: Performed By: #### L [id number], [id number] ####Digital Press Operator: CARMEL HOWARD ([phone])[place])[address] [place] [address] Platelets (Bld) [#/Vol] 211 10*3/uL Normal 140-440 [facility] Comment on above: Performed By: #### L [id number], [id number] ####Digital Press Operator: CARMEL HOWARD ([phone])[place])[address] [place] [address] RBC (Bld) [#/Vol] 2.70 10*6/uL Low 4.40-5.90 [facility] Comment on above: Performed By: #### L [id number], [id number] ####Digital Press Operator: CARMEL HOWARD ([phone])[place])[address] [place] [address] WBC (Bld) [#/Vol] 15.1 10*3/uL High 3.6-10.7 [facility] Comment on above: Performed By: #### L [id number], [id number] ####Digital Press Operator: CARMEL HOWARD ([phone])[place])[address] [place] [address] COMPREHENSIVE METABOLIC PANE Pollo 09-09-2024 Albumin [Mass/Vol] 2.3 g/dL Low 3.4-4.8 [facility] Comment on above: Performed By: #### L AB17 ####Digital Press Operator: CARMEL HOWARD ([phone])[place])[address] [place] [address] ALP [Catalytic activity/Vol] 55 U/L Normal 40-150 [facility] Comment on above: Performed By: #### L AB17 ####Digital Press Operator: CARMEL HOWARD ([phone])[place])[address] [place] [address] ALT [Catalytic activity/Vol] 6 U/L Normal <40 [facility] Comment on above: Performed By: #### L AB17 ####Digital Press Operator: CARMEL HOWARD ([phone])[place])[address] [place] [address] Anion gap [Moles/Vol] 6 mmol/L Normal 3-13 [facility] Comment on above: Performed By: #### L AB17 ####Digital Press Operator: CARMEL HOWARD ([phone])[facility] [place] [address] AST [Catalytic activity/Vol] 25 U/L Normal <34 [facility] Comment on above: Performed By: #### L AB17 ####Digital Press Operator: CARMEL HOWARD ([phone])[facility] ([facility] [place] [address] [place] Bilirubin [Mass/Vol] 0.9 mg/dL Normal <1.2 [facility] Comment on above: Performed By: #### L AB17 ####Digital Press Operator: CARMEL HOWARD ([phone])[facility] ([facility])[address] [place] [address] Calcium [Mass/Vol] 7.1 mg/dL Low 8.8-10.0 [facility] Comment on above: Performed By: #### L AB17 ####Digital Press Operator: CARMEL HOWARD ([phone])[facility] ([facility] [place] [address] [place] Chloride [Moles/Vol] 110 mmol/L High 98-107 [facility] Comment on above: Performed By: #### L AB17 ####Digital Press Operator: CARMEL HOWARD ([phone])[facility] ([facility])[address] [place] [address] [place] CO2 [Moles/Vol] 25 mmol/L Normal 23-31 [facility] Comment on above: Performed By: #### L AB17 ####Digital Press Operator: CARMEL HOWARD ([id number])[facility] [place] [address] [place] Creatinine [Mass/Vol] 0.66 mg/dL Low 0.72-1.25 [facility] Comment on above: Performed By: #### L AB17 ####Digital Press Operator: CARMEL HOWARD ([phone])[facility] ([facility] [place] [address] GLOMERULAR FILTRATION RATE ML/MIN/1.73 SQ M.PREDICTED >90.0 Normal >60.0 [facility] Comment on above: Result Comment: Calc ulation based on the Chronic Kidney Disease Epidemiology Collaboration (CKD-EPI) equation refit without adjustment for race Performed By: #### L AB17 ####Digital Press Operator: CARMEL HOWARD ([phone])[place])[address] [place] [address] Glucose [Mass/Vol] 156 mg/dL High 82-115 [facility] Comment on above: Performed By: #### L AB17 ####Digital Press Operator: CARMEL HOWARD ([phone])[place])[address] [place] [address] Potassium [Moles/Vol] 5.0 mmol/L Normal 3.5-5.1 [facility] Comment on above: Result Comment: [facility] potassium values may be up to 0.5 mmol/L lower than serum values. Performed By: #### L AB17 ####Digital Press Operator: CARMEL HOWARD ([phone])[place])[address] [place] [address] Protein [Mass/Vol] 4.9 g/dL Low 6.4-8.3 [facility] Comment on above: Performed By: #### L AB17 ####Digital Press Operator: CARMEL HOWARD ([phone])[place])[address] [place] [address] Sodium [Moles/Vol] 141 mmol/L Normal 136-145 [facility] Comment on above: Performed By: #### L AB17 ####Digital Press Operator: CAREML HOWARD ([phone])[place])[address] [place] [address] [place] Urea nitrogen [Mass/Vol] 30 mg/dL High 9-23 [facility] Comment on above: Performed By: #### L AB17 ####Digital Press Operator: CARMEL HOWARD ([phone])[place])[address] [place] [address] [place] CTA Abd/Pelvis W/WO Contrast on 09-09-2024 CTA Abd/Pelvis W/WO Contrast [facility] Services [address] [place], [place] [address] CTA Abd/Pelvis W/WO Contrast MR#: [id number] Acct: [id number] Name: LAINE GARCIA Rep #: [id number] : 1955 M 69 From: Joshua guevara MD PCP: Dr. Dante Gurrola MD Status: REG ER Study: CTA Abd/Pelvis W/WO Contrast Date of Exam: 10/27 Exam# [id number] Ordering Dr: Sy Urena MD PROCEDURE: CTA ABD/PELVIS W/WO CONTRAST 09/09/2024 REASON FOR EXAM: HYPOTENSION AND ACTIVE GI BLEED TECHNIQUE: CTA imaging of the abdomen and pelvis with intravenous contrast. Multiplanar and multisequence images were obtained. CONTRAST: Omnipaque 350 VOLUME: 100 mL One or more dose reduction techniques were used (e.g., Automated exposure control, adjustment of the mA and/or kV according to patient size, use of iterative reconstruction technique). COMPARISON: CT abdomen and pelvis 08/09/2024 and 08/07/2024 FINDINGS: Aorta: Abdominal aorta is normal in size. Minimal atherosclerotic plaque. No evidence of aneurysm or dissection. Iliac Arteries: Iliac arteries are normal in size with no significant plaque or stenosis. Celiac: Normal. SMA: Normal. OLEKSANDR : Normal. Right Renal: Single patent right renal artery. Left Renal: Single patent left Other: IVC stent is noted. Lung bases: Patchy opacities in the right lung base, compatible with atelectasis. Liver: Homogeneous attenuation. 18 mm left lobe simple cyst. Bile ducts: No intrahepatic or extrahepatic bile duct dilation. Gallbladder: No calcified gallstones. No gallbladder wall thickening or pericholecystic fluid. Spleen: Within normal limits. Pancreas: Within normal limits Adrenal glands: Within normal limits Kidneys/Ureters: Symmetric bilateral renal enhancement. No hydronephrosis or renal calculi. No hydroureter. 30 mm exophytic right upper pole simple cyst. Bladder: Large amount of contrast within the urinary bladder. Reproductive: Mild prostatomegaly. Lymph nodes: No enlarged lymph nodes Bowel: Mild wall thickening and hyperemia involving the gastric pylorus. Otherwise, the stomach is unremarkable. No bowel dilation. Interval migration previously noted gastroduodenal stent, now in the distal transverse colon, the splenic flexure (series 601 image 22, series 2, image 49). No bowel dilation. No evidence of active GI bleed. Large colonic stool. Appendix is normal. Peritoneum: No free air, ascites, or fluid collection. Retroperitoneum: Within normal limits. Abdominal wall: Within normal limits. Bones: No significant multilevel spondylosis. Maintained vertebral body heights CT/CTA Abd/Pelvis W/WO Contrast IMPRESSION: 1. No evidence of acute contrast extravasation, to suggest gastrointestinal bleed. 2. No evidence of acute aortic dissection, thrombosis or pseudoaneurysm formation. 3. Interval migration previously noted gastroduodenal stent, now within the distal transverse colon of the splenic flexure. 4. Other findings as described above. Reading [facility]: Dr. Dante Gurrola MD; Dr. 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 Carbon dioxide, total [Moles /volume] in Central venous bloodOrdered By: Sy Urena on 09-09-2024 CO2 [Moles/Vol] 25.7 mmol/L 21.0-32.0 [facility] Chloride assayOrdered By: Corie Urena on 09-09-2024 Chloride [Moles/Vol] 108 mmol/L 98-108 [facility] Comprehensive metabolic 1998 panelOrdered By: Mary Stacy on 09-09-2024 Albumin [Mass/Vol] 2.3 g/dL Low 3.4 - 4.8 g/dL [facility] ALP [Catalytic activity/Vol] 55 U/L 40 - 150 U/L [facility] ALT [Catalytic activity/Vol] 6 U/L NINF - 40 U/L [facility] Anion gap [Moles/Vol] 6 mmol/L 3 - 13 mmol/L [facility] AST [Catalytic activity/Vol] 25 U/L [facility]/L [facility] Bilirubin [Mass/Vol] 0.9 mg/dL NINF - 1.2 mg/dL [facility] Calcium [Mass/Vol] 7.1 mg/dL Low 8.8 - 10. 0 mg/dL [facility] Chloride [Moles/Vol] 110 mmol/L High 98 - 10 7 mmol/L [facility] CO2 [Moles/Vol] 25 mmol/L 23 - 31 mmol/L [facility] Creatinine [Mass/Vol] 0.66 mg/dL Low 0.72 - 1.25 mg/dL [facility] GFR/1.73 sq M.predicted (S/P/Bld) [Vol rate/Area] - PINF [facility] Comment on above: Calculation based on the Chronic Kidney Disease Epidemiology Collaboration (CKD-EPI) equation refit without adjustment for race Glucose [Mass/Vol] 156 mg/dL High 82 - 115 mg/dL [facility] Interpretation and review of laboratory results Abnormal [facility] Potassium [Moles/Vol] 5 mmol/L 3.5 - 5.1 mmol/L [facility] Comment on above: Plasma potassium shruthi ues may be up to 0.5 mmol/L lower than serum values. Protein [Mass/Vol] 4.9 g/dL Low 6.4 - 8.3 g/dL [facility] Sodium [Moles/Vol] 141 mmol/L 136 - 145 mmol/L [facility] Urea nitrogen [Mass/Vol] 30 mg/dL High 9 - 23 mg/dL [facility] Consulton 09-09-2024 Consult Normal [facility] Consult Normal [facility] Emergency Department Summary on 09-09-2024 Emergency Department Summary [facility] Medical Records Department [address] [place] [address] Emergency Department Summary 09/09/24 MR#: [id number] Acct: [id number] Name: JOSELAINE Ned Rep #: [id number] : 1955 69 From: Sy Urena MD PCP: Dr. Dante Gurrola MD Status:REG ER Location: ED HPI History of Present Illness Chief Complaint: Alt LOC Detail of Chief Complaint: GI bleed, hypotension and altered mental status Informant: patient, spouse/S.O. and family Onset/Context/Timing Onset: Today Context: Sudden Onset Timing: Intermittent Quality: Vomiting blood. On apixaban for DVT Location: Upper GI bleed Current Severity: Severe Maximum Severity: Severe Worsened by: Took apixaban yesterday Relieved by: Nothing Associated Symptoms Associated Symptoms: abdominal pain, chest pain, chills, cough, fever, vomiting, diarrhea, palpitations, suicidal thoughts and other Narrative Narrative: Patient is a 69-year-old male. He has history of peptic ulcer disease with apparent perforation that was repaired laparoscopically by Dr. Zara Spann at [facility]. He was seen by GI. Apparently the stent that was placed by Dr. Avendano had migrated and there was thought of removing it. They did not remove it since he took a dose of apixaban. Cording to family he did not take apixaban or Wednesday morning. He did take a dose last evening. He is on apixaban because he was recently diagnosed with DVT. Reviewing Dr. Avendano's office note from August 22 indicates patient had recent pulmonary embolus subsegmental. Without acute cor pulmonale. Procedure note performed by Dr. Avendano on August 07 was reviewed. Patient was noted to have normal esophagus and normal stomach. Oozing was noted from multiple duodenal ulcers with visible vessels noted. These were injected and treated with argon plasma coagulation (APC). Prosthesis placed and clips were placed. Patient also had small intestinal endoscopy and enteroscopy beyond second portion of the duodenum not including the ileum with trans endoscopic stent placement including predilatation. Patient has been up at [facility]. Apparently after multiple CAT scans they determined that he had a perforation in the posterior wall of his stomach that was adherent to his liver. He had laparoscopic surgery by Dr. Zara Spann. He also was found to have a DVT. He is presently on apixaban. This morning every time patient attempted to stand he had near syncope versus 1 episode of syncope. He has vomited blood per family. There was noted to be blood on his bedoya. There was discussion regarding NG because he did not tolerate it well last time. Explained to the patient and family that NG was placed as he was actively bleeding 1 to determine if we need to reverse his apixaban. At that time I was informed that he only has taken 1 dose in the last 48 hours and that was last evening. He did not take his dose this morning. And to determine if he is stable to stay here or require transfer back to [facility]. Prior similar symptoms: Yes Recent Illness/Hospitalizatio n: [facility] Medical History History of DVT (deep vein thrombosis) Mitral valve prolapse unable to obtain (Documented in the HPI narrative.) Home Medications ???Medication ???Instructions ???Recorded ???Last Taken ???Type multivitamin 1 tab PO DAILY supplement 01/22/20 08/05/24 History omega-3 fatty acids 1,000 mg 2,000 mg PO BID supplement 0 08/05/24 History capsule apixaban 5 mg tablet (Eliquis) 5 mg PO BID 09/01/24 Unknown Histo ry oxycodone-acetaminophe n 5 mg-325 1 tab PO Q6H PRN pain 09/09/24 Unk nown History mg tablet (Percocet) Allergy/AdvReac Type Severity Reaction Status Date / Time Penicillins AdvReac PT UNABLE Verified 09/09/24 06:30 TO RESPOND-NEEDS F/U Family History Father Myocardial infarction Mother CVA (cerebral vascular accident) Surgical History H/O shoulder surgery History of repair of hiatal hernia Social History Smoking Status: Never smoker alcohol intake: never ROS ROS ED Constitutional Constitutional ED: Denies chills, fever(s), subjective, sweats or weight loss Eyes Eyes: Denies blurry vision or change in vision ENT ENT ED: Denies ear pain or rhinorrhea Cardiovascular Cardiovascular: Denies chest pain, orthopnea, palpitations or paroxysmal nocturnal dyspnea Respiratory/Chest Respiratory/Chest: Denies cough, dyspnea, dyspnea on exertion, orthopnea or paroxysmal nocturnal dyspnea Gastrointestinal Gastrointestinal: Reports nausea, vomiting and other Details: Patient not had a bowel movement in 2 days. ; (more content not included)... Normal [facility] Eosinophil percentageOrdered By: Sy Urena on 09-09-2024 Eosinophils/100 WBC (Bld) 1.6 % 0-5 [facility] Erythrocyte distribution wid th ratioOrdered By: Sy Urena on 09-09-2024 Erythrocyte distribution width (RBC) [Ratio] 15.5 % High 11.6-14.6 [facility] Erythrocyte distribution wid th standard deviationOrdered By: Sy Urena on 09-09-2024 Erythrocyte distribution width (RBC) [Ratio] 51.1 fl High 35.1-43.9 [facility] Glomerular filtration rate ( GFR) estimation/1.73 sq m using serum, plasma, or whole bOrdered By: Sy Urena on 09-09-2024 GFR/1.73 sq M.predicted among non-blacks MDRD (S/P/Bld) [Vol rate/Area] 98 mL/min/{1.73_m2} >60 [facility] Comment on above: mL/min/1.73m2 CKD-EP I Creatinine Equation (2020) HEMOGLOBIN AND HEMATOCRIT, B Karen 09-09-2024 Hematocrit (Bld) [Volume fraction] 21.7 % Low 40.0-52.0 [facility] Comment on above: Order Comment: Recom mend 1 hour post transfusion Performed By: #### L [id number] ####Digital Press Operator: CARMEL HOWARD ([phone])[place])[address] [place] [address] Hemoglobin (Bld) [Mass/Vol] 7.1 g/dL Low 13.0-18.0 [facility] Comment on above: Order Comment: Recom mend 1 hour post transfusion Performed By: #### L [id number] ####Digital Press Operator: CARMEL HOWARD ([phone])[address] Hematocrit (Bld) [Volume fraction] 20.4 % Low 40.0-52.0 [facility] Comment on above: Performed By: #### L [id number] ####Digital Press Operator: CARMEL HOWARD ([phone])[place])[address] [place] [address] Hemoglobin (Bld) [Mass/Vol] 6.7 g/dL Critically low 13.0-18.0 [facility] Comment on above: Performed By: #### L [id number] ####Digital Press Operator: CARMEL [id number])[facility] ([place] [id number] [facility] Hematocrit Auto (Bld) [Volum e fraction]Ordered By: Sy Urena on 09-09-2024 Hematocrit (Bld) [Volume fraction] 20.8 % Low 40-54 [facility] Hemoglobin (Bld) [Mass/Vol]o n 09-09-2024 Hematocrit (Bld) [Volume fraction] 21.7 % Low 40.0 - 52.0 % [facility] Interpretation and review of laboratory results Abnormal [facility] Hemoglobin (Bld) [Mass/Vol]O rdered By: Dee Dee Palacios on 09-09-2024 Hematocrit (Bld) [Volume fraction] 20.4 % Low 40.0 - 52.0 % [facility] Interpretation and review of laboratory results Abnormal [facility] Hemoglobin measurementOrdere d By: Sy Urena on 09-09-2024 Hemoglobin (Bld) [Mass/Vol] 6.6 g/dL Low 13.0-16.5 [facility] Immature granulocytes/100 WB C Auto (Bld)Ordered By: Sy Urena on 09-09-2024 Immature granulocytes/100 WBC (Bld) 0.600 % 0.0-0.9 [facility] Comment on above: IG% - Immature Granu locytes (promyelocytes, myelocytes and metamyelocytes) > 1% indicates that a LEFT SHIFT is Present. Laboratory - Coagulationon 0 09-09-2024 aPTT Coag (PPP) [Time] 20.8 s 20.0 - 30.5 s [facility] INR Coag (PPP) [Relative time] 1.1 {INR} 0.9 - 1.1 [facility] Comment on above: Recommended Anticoag ulant Therapy: [...] therapy is used to prevent Myocardial Infarction PT Coag (Bld) [Time] 11.9 s 9.0 - 1 2.0 s [facility] Laboratory - Hematology and Cell countson 09-09-2024 Hemoglobin (Bld) [Mass/Vol] 7.1 g/dL Low 13.0 - 18.0 g/dL [facility] Laboratory - Hematology and Cell countsOrdered By: Dee Dee Palacios on 09-09-2024 Hemoglobin (Bld) [Mass/Vol] 6.7 g/dL Critically low 13.0 - 18.0 g/dL [facility] Lactic Acidon 09-09-2024 Lactate [Moles/Vol] 1.7 mmol/L Normal 0.0-2.0 [facility] Comment on above: Order Comment: Y Performed By: #### L 500.4050, L100.0100 #### [facility] [address] [place], [place], [address] Lactic acid measurementOrder ed By: Sy Urena on 09-09-2024 Lactate [Moles/Vol] 1.7 mmol/L 0.0-2.0 [facility] MANUAL DIFFERENTIALon 2024 ANISOCYTOSIS PRESENCE IN BLOOD BY LIGHT MICROSCOPY Slight Abnormal (none) [facility] Comment on above: Performed By: #### L [id number], [id number] ####Digital Press Operator: CARMEL HOWARD ([phone])[address] BAND NEUTROPHILS TOTAL PER COUNTED LEUKOCYTES BY MANUAL COUNT 9 Normal [facility] Comment on above: Performed By: #### L [id number], [id number] ####Digital Press Operator: CARMEL HOWARD ([phone])[place])[address] [place] [address] BANDS 1.4 10*3/uL High <=0.0 [facility] Comment on above: Performed By: #### L [id number], [id number] ####Digital Press Operator: CARMEL HOWARD ([phone])[place])[address] [place] [address] CELLS COUNTED TOTAL (#) IN BLOOD 100 Normal [facility] Comment on above: Performed By: #### L [id number], [id number] ####Digital Press Operator: CARMEL HOWARD ([phone])[place])[address] [place] [address] [place] LEUKOCYTE MORPHOLOGY FINDING IN BLOOD Normal Normal [facility] Comment on above: Performed By: #### L [id number], [id number] ####Digital Press Operator: CARMEL HOWARD ([phone])[place])[address] [place] [address] [place] LEUKOCYTES (10*3/UL) NUCLEATED ERYTHROCYTE ADJUST 15.1 10*3/uL High 3.6-10.7 [facility] Comment on above: Performed By: #### L [id number], [id number] ####Digital Press Operator: CARMEL HOWARD ([phone])[place])[address] [place] [address] [place] LYMPHOCYTES (10*3/UL) IN BLOOD BY MANUAL COUNT 0.3 10*3/uL Low 1.0-4.3 [facility] Comment on above: Performed By: #### L [id number], [id number] ####Digital Press Operator: CARMEL HOWARD ([phone])[place])[address] [place] [address] [place] LYMPHOCYTES TOTAL PER COUNTED LEUKOCYTES BY MANUAL COUNT 2 Normal [facility] Comment on above: Performed By: #### L [id number], [id number] ####Digital Press Operator: CARMEL HOWARD ([phone])[place])[address] [place] [address] [place] LYMPHOCYTES/100 LEUKOCYTES IN BLOOD BY MANUAL COUNT 2 % Low 15-45 [facility] Comment on above: Performed By: #### L [id number], [id number] ####Digital Press Operator: CARMEL HOWARD ([phone])[place])[address] [place] [address] [place] MICROCYTES (PRESENCE) IN BLOOD BY LIGHT MICROSCOPY Slight Abnormal (none) [facility] Comment on above: Performed By: #### L [id number], [id number] ####Digital Press Operator: CARMEL HOWARD ([phone])[place])[address] [place] [address] [place] MONOCYTES (10*3/UL) IN BLOOD BY MANUAL COUNT 0.3 10*3/uL Normal 0.0-0.9 [facility] Comment on above: Performed By: #### L [id number], [id number] ####Digital Press Operator: CARMEL HOWARD ([phone])[facility] ([facility])[address] [place] [address] [place] MONOCYTES TOTAL PER COUNTED LEUKOCYTES BY MANUAL COUNT 2 Normal [facility] Comment on above: Performed By: #### L [id number], [id number] ####Digital Press Operator: CARMEL HOWARD ([phone])[place])[address] [place] [address] MONOCYTES/100 LEUKOCYTES IN BLOOD BY MANUAL COUNT 2 % Low 5-13 [facility] Comment on above: Performed By: #### L [id number], [id number] ####Digital Press Operator: CARMEL HOWARD ([phone])[facility] ([facility])[address] [place] [address] [place] NEUTROPHILS (SEGS+BANDS) (10*3/UL) BY MANUAL COUNT 14.5 10*3/uL High 1.8-7.0 [facility] Comment on above: Performed By: #### L [id number], [id number] ####Digital Press Operator: CARMEL HOWARD ([phone])[facility] ([facility])[address] [place] [address] [place] NEUTROPHILS BAND FORM/100 LEUKOCYTES IN BLOOD BY MANUAL COUNT 9 % High <=0 [facility] Comment on above: Performed By: #### L [id number], [id number] ####Digital Press Operator: CARMEL HOWARD ([id number])[place])[address] [place] [address] [place] NEUTROPHILS TOTAL PER COUNTED LEUKOCYTES BY MANUAL COUNT 87 Normal [facility] Comment on above: Performed By: #### L [id number], [id number] ####Digital Press Operator: CARMEL HOWARD ([phone])[place])[address] [place] [address] [place] PLATELET MORPHOLOGY IN BLOOD Normal Normal [facility] Comment on above: Performed By: #### L [id number], [id number] ####Digital Press Operator: CARMEL HOWARD ([phone])[place])[address] [place] [address] POLYCHROMASIA IN BLOOD BY LIGHT MICROSCOPY Slight Abnormal (none) [facility] Comment on above: Performed By: #### L [id number], [id number] ####Digital Press Operator: CARMEL HOWARD ([phone])[facility] ([facility])[address] [place] [address] SEGEMENTED NEUTROPHILS/100 LEUKOCYTES BY MANUAL COUNT 87 % High 38-82 [facility] Comment on above: Performed By: #### L [id number], [id number] ####Digital Press Operator: CARMEL HOWARD ([phone])[facility] ([facility])[address] [place] [address] SEGMENTED NEUTROPHILS (10*3/UL)IN BLOOD BY MANUAL COUNT 14.5 10*3/uL High 1.8-7.5 [facility] Comment on above: Performed By: #### L [id number], [id number] ####Digital Press Operator: CARMEL HOWARD ([phone])[place])[address] [place] [address] MCV (mean corpuscular volume ) determinationOrdered By: Sy Urena on 09-09-2024 MCV (RBC) [Entitic vol] 91.6 fL 80-94 [facility] Manual differential performe d Ql (Bld)on 09-09-2024 Anisocytosis Ql (Bld) Slight Abnormal (none) [facility] Band form neutrophils (Bld) [#/Vol] 1.4 10*3/uL High NINF - 0.0 10*3/uL [facility] Band form neutrophils/100 WBC (Bld) 9 % High NINF - 0 % [facility] B[facility] Manual 9 [facility] Cells Counted Total (Bld) [#] 100 {cells} [facility] Interpretation and review of laboratory results Abnormal [facility] Leukocyte morphology finding Nom (Bld) Normal [facility] Lymphocytes (Bld) [#/Vol] 0.3 10*3/uL Low 1.0 - 4.3 10*3/uL [facility] Lymphocytes Manual 2 [facility] Lymphocytes/100 WBC (Bld) 2 % Low 15 - 45 % [facility] Microcytes Ql (Bld) Slight Abnormal (none) [facility] Monocytes (Bld) [#/Vol] 0.3 10*3/uL 0.0 - 0.9 10*3/uL [facility] Monocytes Manual 2 [facility] alth Monocytes/100 WBC (Bld) 2 % Low 5 - 13 % [facility] Neutrophils (Bld) [#/Vol] 14.5 10*3/uL High 1.8 - 7.5 10*3/uL [facility] Neutrophils Manual 87 [facility] Platelet morphology finding Nom (Bld) Normal [facility] Polychromasia LM Ql (Bld) Slight Abnormal (none) [facility] Segmented neutrophils/100 WBC (Bld) 87 % High 38 - 82 % [facility] WBC corrected for nucl RBC (Bld) [#/Vol] 15.1 10*3/uL High 3.6 - 10.7 10*3/uL [facility] Mean corpuscular hemoglobin (MCH) determinationOrdered By: Sy Urena on 09-09-2024 MCH (RBC) [Entitic mass] 29.1 pg 27.0-32.0 [facility] Mean corpuscular hemoglobin concentration (MCHC) determinationOrdered By: Sy Urena on 09-09-2024 MCHC (RBC) [Mass/Vol] 31.7 g/dL Low 32-36 [facility] Mean platelet volume determi nationOrdered By: Sy Urena on 09-09-2024 Platelet mean volume (Bld) [Entitic vol] 9.5 fL 6.2-12.0 [facility] Monocyte percentageOrdered B y: Sy Urena on 09-09-2024 Monocytes/100 WBC (Bld) 3.8 % 0-10 [facility] Neutrophil percentageOrdered By: Sy Urena on 09-09-2024 Neutrophils/100 WBC (Bld) 87.0 % High 47-70 [facility] No Panel Informationon 09-09 Blood Expiration Date [id number] [facility] Crossmatch interpretation COMP [facility] Dispense Status Transfused [facility] Product Blood Type 5100 [facility] PRODUCT CODE [id number] [facility] Unit ABO O [facility] Unit Number [id number] [facility] RH Positive [facility] Unit Volume 300 mL [facility] Interpretation and review of laboratory results Normal [facility] Nucleated red blood cell per centageOrdered By: Sy Urena on 09-09-2024 Nucleated RBC/100 WBC (Bld) [Ratio] 0 % 0-5 [facility] Op Noteon 09-09-2024 Op Note Normal [facility] PROTIME AND APTTon aPTT Coag (Bld) [Time] 20.8 s Normal 20.0-30.5 [facility] Comment on above: Performed By: #### L [id number] ####Digital Press Operator: CARMEL HOWARD ([phone])[facility] eyesFinder[address] INR Coag (PPP) [Relative time] 1.1 {INR} Normal 0.9-1.1 [facility] Comment on above: Result Comment: Yoshi mmended Anticoagulant Therapy: SEE BELOW----- INR of 2.0 - 3.0 : - Prophylaxis of Venous Thrombosis (high-risk surgery) - Treatment of Venous Thrombosis - Treatment of Pulmonary Embolism (Includes tissue heart valves, Acute Myocardial Infarction to prevent systemic embolism, Valvular Heart Disease, and Atrial Fibrillation)----- INR of 2.5 - 3.5 : - Mechanical Prosthetic Valves (high risk) - If oral anticoagulant therapy is used to prevent Myocardial Infarction Performed By: #### L [id number] ####Digital Press Operator: CARMEL HOWARD ([phone])[facility] [place] [address] PT Coag (PPP) [Time] 11.9 s Normal 9.0-12.0 [facility] Comment on above: Performed By: #### L [id number] ####Digital Press Operator: CARMEL HOWARD ([phone])[facility])[address] [place] [address] Platelet countOrdered By: Corie Urena on 09-09-2024 Platelets (Bld) [#/Vol] 217 10*3/uL 150-450 [facility] Potassium measurement (mass/ volume)Ordered By: Sy Urena on 09-09-2024 Potassium (Unsp spec) [Mass/Vol] 4.6 mmol/L 3.3-5.1 [facility] RBC Auto (Bld) [#/Vol]Ordere d By: Sy Urena on 09-09-2024 RBC (Bld) [#/Vol] 2.27 10*6/uL Low 4.6-6.2 [facility] Serum creatinine measurement (mass/volume)Ordered By: Sy Urena on 09-09-2024 Creatinine [Mass/Vol] 0.72 mg/dL 0.70-1.20 [facility] Serum glucose measurement (m ass/volume)Ordered By: Syelvia Urena on 09-09-2024 Glucose [Mass/Vol] 177 mg/dL High 70-99 [facility] Serum or plasma calcium arnie urement (mass/volume)Ordered By: Syelvia Urena on 09-09-2024 Calcium [Mass/Vol] 7.4 mg/dL Low 7.6-11.0 [facility] Serum or plasma urea nitroge n measurement (mass/volume)Ordered By: Syelvia Urena on 09-09-2024 Urea nitrogen [Mass/Vol] 24 mg/dL High 4-19 [facility] Sodium levelOrdered By: Syelvia Urena on 09-09-2024 Sodium [Moles/Vol] 141 mmol/L 133-145 [facility] Type AND Screenon 09-09-2024 ABO and Rh group Nom (Bld) Blood group O Rh(D) positive Normal [facility] Comment on above: Order Comment: HGI Performed By: #### L 500.4050, L100.0100 #### [facility] [address] [place], [address] White blood cell (WBC) count Ordered By: Syelvia Urena on 09-09-2024 WBC (Bld) [#/Vol] 10.6 10*3/uL 4.4-11.0 [facility] 36on 09-08-2024 36 LM for daughter Brielle hopkins to ask if any other symptoms besides pain and if there is worsening symptoms that he should report to ED. DP Normal [facility] 36 Is he having any oth er symptoms besides pain? (Nausea/vomiting/dark stools etc). Did he get rescheduled with Dr Tracy? If pain is worsening, should report to ED Normal [facility] 36 Normal [facility] BASIC METABOLIC PANELon 060 Anion gap [Moles/Vol] 5 mmol/L Normal 3-13 [facility] Comment on above: Performed By: #### L AB15, LAB99, LAB20 ####Digital Press Operator: CARMEL HOWARD ([phone])[place])[address] [place], [place] [address] Calcium [Mass/Vol] 8.6 mg/dL Low 8.8-10.0 [facility] Comment on above: Performed By: #### L AB15, LAB99, LAB20 ####Digital Press Operator: CARMEL HOWARD ([phone])[facility] ([facility])[address] [place] [address] Chloride [Moles/Vol] 106 mmol/L Normal 98-107 [facility] Comment on above: Performed By: #### L AB15, LAB99, LAB20 ####Digital Press Operator: CARMEL HOWARD ([phone])[facility] ([facility])[address] [place] [address] [place] CO2 [Moles/Vol] 28 mmol/L Normal 23-31 [facility] Comment on above: Performed By: #### L AB15, LAB99, LAB20 ####Digital Press Operator: CARMEL HOWARD ([phone])[place])[address] [place] [address] Creatinine [Mass/Vol] 0.70 mg/dL Low 0.72-1.25 [facility] Comment on above: Performed By: #### L AB15, LAB99, LAB20 ####Digital Press Operator: CARMEL HOWARD ([phone])[place])[address] [place] [address] GLOMERULAR FILTRATION RATE ML/MIN/1.73 SQ M.PREDICTED >90.0 Normal >60.0 [facility] Comment on above: Result Comment: Calc ulation based on the Chronic Kidney Disease Epidemiology Collaboration (CKD-EPI) equation refit without adjustment for race Performed By: #### L AB15, LAB99, LAB20 ####Digital Press Operator: CARMEL HOWARD ([phone])[facility] ([facility])[address] [place] [address] Glucose [Mass/Vol] 107 mg/dL Normal 82-115 [facility] Comment on above: Performed By: #### Lily AB15, LAB99, LAB20 ####Digital Press Operator: CARMEL HOWARD ([phone])[place])[address] [place] [address] Potassium [Moles/Vol] 3.6 mmol/L Normal 3.5-5.1 [facility] Comment on above: Result Comment: [facility] potassium values may be up to 0.5 mmol/L lower than serum values. Performed By: #### Lily AB15, LAB99, LAB20 ####Digital Press Operator: CARMEL HOWARD ([phone])[facility] ([facility])[address] [place] [address] Sodium [Moles/Vol] 139 mmol/L Normal 136-145 [facility] Comment on above: Performed By: #### Lily AB15, LAB99, LAB20 ####Digital Press Operator: CARMEL HOWARD ([phone])[facility] ([facility])[address] [place] [address] [place] Urea nitrogen [Mass/Vol] 13 mg/dL Normal 9-23 [facility] Comment on above: Performed By: #### L AB15, LAB99, LAB20 ####Digital Press Operator: CARMEL HOWARD ([id number])[place])[address] [place] [address] [place] Basic metabolic 1998 panelon 09-08-2024 Anion gap [Moles/Vol] 5 mmol/L 3 - 13 mmol/L [facility] Calcium [Mass/Vol] 8.6 mg/dL Low 8.8 - 10. 0 mg/dL [facility] Chloride [Moles/Vol] 106 mmol/L 98 - 10 7 mmol/L [facility] CO2 [Moles/Vol] 28 mmol/L 23 - 31 mmol/L [facility] Creatinine [Mass/Vol] 0.7 mg/dL Low 0.72 - 1.25 mg/dL [facility] GFR/1.73 sq M.predicted (S/P/Bld) [Vol rate/Area] - PINF [facility] Comment on above: Calculation based on the Chronic Kidney Disease Epidemiology Collaboration (CKD-EPI) equation refit without adjustment for race Glucose [Mass/Vol] 107 mg/dL 82 - 115 mg/dL [facility] Potassium [Moles/Vol] 3.6 mmol/L 3.5 - 5.1 mmol/L [facility] Comment on above: Plasma potassium shruthi ues may be up to 0.5 mmol/L lower than serum values. Sodium [Moles/Vol] 139 mmol/L 136 - 145 mmol/L [facility] Urea nitrogen [Mass/Vol] 13 mg/dL 9 - 23 mg/dL [facility] CBC W Auto Differential pane l (Bld)on 09-08-2024 Basophils (Bld) [#/Vol] 0.1 10*3/uL 0.0 - 0.2 10*3/uL [facility] Basophils/100 WBC (Bld) 0.6 % 0.0 - 2.0 % [facility] Eosinophils (Bld) [#/Vol] 0.5 10*3/uL 0.0 - 0.5 10*3/uL [facility] Eosinophils/100 WBC (Bld) 5 % 0.0 - 6.0 % [facility] Erythrocyte distribution width (RBC) [Ratio] 15.3 % High 11.5 - 15.0 % [facility] Hematocrit (Bld) [Volume fraction] 32.2 % Low 40.0 - 52.0 % [facility] Hemoglobin (Bld) [Mass/Vol] 10.4 g/dL Low 13.0 - 18.0 g/dL [facility] Immature granulocytes (Bld) [#/Vol] 0 10*3/uL NINF - 0.1 10*3/uL [facility] Immature granulocytes/100 WBC (Bld) 0.4 % 0.0 - 2.0 % [facility] Interpretation and review of laboratory results Abnormal [facility] Lymphocytes (Bld) [#/Vol] 1.1 10*3/uL 1.0 - 4.3 10*3/uL [facility] Lymphocytes/100 WBC (Bld) 12.4 % Low 15.0 - 45.0 % [facility] MCH (RBC) [Entitic mass] 28.9 pg 26.0 - 34.0 pg [facility] MCHC (RBC) [Mass/Vol] 32.3 % 30.5 - 36.0 % [facility] MCV (RBC) [Entitic vol] 89.4 fL 77.0 - 99.0 fL [facility] Monocytes (Bld) [#/Vol] 0.6 10*3/uL 0.0 - 0.9 10*3/uL [facility] Monocytes/100 WBC (Bld) 7.2 % 5.0 - 13.0 % [facility] Neutrophils (Bld) [#/Vol] 6.6 10*3/uL 1.8 - 7.5 10*3/uL [facility] Neutrophils/100 WBC (Bld) 74.4 % 38.0 - 82.0 % [facility] Nucleated RBC/100 WBC (Bld) [Ratio] 0 % [facility] Platelet mean volume (Bld) [Entitic vol] 9.3 fL 9.0 - 12.7 fL [facility] Platelets (Bld) [#/Vol] 308 10*3/uL 140 - 440 10*3/uL [facility] RBC (Bld) [#/Vol] 3.6 10*6/uL Low 4.40 - 5.9 0 10*6/uL [facility] WBC (Bld) [#/Vol] 8.9 10*3/uL 3.6 - 10.7 10*3/uL [facility] CBC WITH AUTO DIFFERENTIALon 09-08-2024 Basophils (Bld) [#/Vol] 0.1 10*3/uL Normal 0.0-0.2 [facility] Comment on above: Performed By: #### L [id number] ####Digital Press Operator: CARMEL HOWARD ([phone])[place])[address] [place] [address] Basophils/100 WBC (Bld) 0.6 % Normal 0.0-2.0 [facility] Comment on above: Performed By: #### L [id number] ####Digital Press Operator: CARMEL HOWARD ([phone])[place])[address] [place] [address] Eosinophils (Bld) [#/Vol] 0.5 10*3/uL Normal 0.0-0.5 [facility] Comment on above: Performed By: #### L [id number] ####Digital Press Operator: CARMEL HOWARD ([phone])[place])[address] [place] [address] Eosinophils/100 WBC (Bld) 5.0 % Normal 0.0-6.0 [facility] Comment on above: Performed By: #### L [id number] ####Digital Press Operator: CARMEL HOWARD ([phone])[place])[address] [place] [address] Erythrocyte distribution width (RBC) [Ratio] 15.3 % High 11.5-15.0 [facility] Comment on above: Performed By: #### L [id number] ####Digital Press Operator: CARMEL HOWARD ([id number])[address] Hematocrit (Bld) [Volume fraction] 32.2 % Low 40.0-52.0 [facility] Comment on above: Performed By: #### L [id number] ####Digital Press Operator: CARMEL HOWARD ([phone])[place])[address] [place] [address] Hemoglobin (Bld) [Mass/Vol] 10.4 g/dL Low 13.0-18.0 [facility] Comment on above: Performed By: #### L [id number] ####Digital Press Operator: CARMEL HOWARD ([phone])[place])[address] [place] [address] IMMATURE GRANS % 0.4 % Normal 0.0-2.0 [facility] Comment on above: Performed By: #### L [id number] ####Digital Press Operator: CARMEL HOWARD ([phone])[place])[address] [place] [address] IMMATURE GRANS ABSOLUTE 0.0 10*3/uL Normal <0.1 [facility] Comment on above: Performed By: #### L [id number] ####Digital Press Operator: CARMEL HOWARD ([phone])[place])[address] [place] [address] Lymphocytes (Bld) [#/Vol] 1.1 10*3/uL Normal 1.0-4.3 [facility] Comment on above: Performed By: #### L [id number] ####Digital Press Operator: CARMEL HOWARD ([id number])[place])[address] [place] [address] Lymphocytes/100 WBC (Bld) 12.4 % Low 15.0-45.0 [facility] Comment on above: Performed By: #### L [id number] ####Digital Press Operator: CARMEL HOWARD ([phone])[place])[address] [place] [address] MCH (RBC) [Entitic mass] 28.9 pg Normal 26.0-34.0 [facility] Comment on above: Performed By: #### L [id number] ####Digital Press Operator: CARMEL HOWARD ([phone])[place])[address] [place] [address] MCHC 32.3 % Normal 30.5-36.0 [facility] Comment on above: Performed By: #### L [id number] ####Digital Press Operator: CARMEL HOWARD ([id number])[place])[address] [place] [address] MCV (RBC) [Entitic vol] 89.4 fL Normal 77.0-99.0 [facility] Comment on above: Performed By: #### L [id number] ####Digital Press Operator: CARMEL HOWARD ([phone])[facility] ([facility])[address] [place] [address] Monocytes (Bld) [#/Vol] 0.6 10*3/uL Normal 0.0-0.9 [facility] Comment on above: Performed By: #### L [id number] ####Digital Press Operator: CARMEL HOWARD ([phone])[facility] ([facility])[address] [place] [address] Monocytes/100 WBC (Bld) 7.2 % Normal 5.0-13.0 [facility] Comment on above: Performed By: #### L [id number] ####Digital Press Operator: CARMEL HOWARD ([phone])[facility] ([facility])[address] [place] [address] NEUTROPHILS ABSOLUTE 6.6 10*3/uL Normal 1.8-7.5 [facility] Comment on above: Performed By: #### L [id number] ####Digital Press Operator: CARMEL HOWARD ([phone])[facility] ([facility])[address] [place] [address] Neutrophils/100 WBC (Bld) 74.4 % Normal 38.0-82.0 [facility] Comment on above: Performed By: #### L [id number] ####Digital Press Operator: CARMEL HOWARD ([phone])[facility] ([facility])[address] [place] [address] NRBC 0.0 /100 WBCs Normal 0.0-2.0 [facility] Comment on above: Performed By: #### L [id number] ####Digital Press Operator: CARMEL HOWARD ([id number])[facility] ([facility])[address] [place] [address] Platelet mean volume (Bld) [Entitic vol] 9.3 fL Normal 9.0-12.7 [facility] Comment on above: Performed By: #### L [id number] ####Digital Press Operator: CARMEL HOWARD ([phone])[facility] [place] [address] Platelets (Bld) [#/Vol] 308 10*3/uL Normal 140-440 [facility] Comment on above: Performed By: #### L [id number] ####Digital Press Operator: CARMEL HOWARD ([id number])[facility] ([facility])[address] [place] [address] RBC (Bld) [#/Vol] 3.60 10*6/uL Low 4.40-5.90 [facility] Comment on above: Performed By: #### L [id number] ####Digital Press Operator: CARMEL HOWARD ([phone])[place])[address] [place] [address] WBC (Bld) [#/Vol] 8.9 10*3/uL Normal 3.6-10.7 [facility] Comment on above: Performed By: #### L [id number] ####Digital Press Operator: CARMEL HOWARD ([phone])[facility] ([facility])[address] [place] [address] COMPLETE URINALYSIS WITH REF SAMANTA TO [facility] 09-08-2024 BILIRUBIN, TOTAL PRESENCE IN URINE Negative Normal Negative [facility] Comment on above: Performed By: #### L [id number] ####Digital Press Operator: CARMEL HOWARD ([phone])[facility] ([facility])[address] [place] [address] Clarity (U) Clear Normal Clear [facility] Comment on above: Performed By: #### L [id number] ####Digital Press Operator: CARMEL HOWARD ([id number])[place])[address] [place] [address] Color (U) Light Yellow Normal Lt. Yellow [facility] Comment on above: Performed By: #### L [id number] ####Digital Press Operator: CARMEL HOWARD ([id number])[facility] ([facility])[address] [place] [address] GLUCOSE (MG/DL) IN URINE Normal Normal Normal (<70) [facility] Comment on above: Performed By: #### L [id number] ####Digital Press Operator: CARMEL HOWARD ([id number])[place])[address] [place] [address] HEMOGLOBIN PRESENCE IN URINE Negative Normal Negative [facility] Comment on above: Performed By: #### L [id number] ####Digital Press Operator: CARMEL HOWARD ([phone])[facility] ([facility])[address] [place] [address] Ketones Ql (U) 40 mg/dL Abnormal Negative [facility] Comment on above: Performed By: #### L [id number] ####Digital Press Operator: CARMEL HOWARD ([phone])[place])[address] [place] [address] LEUKOCYTE ESTERASE PRESENCE IN URINE BY TEST STRIP Negative Normal Negative [facility] Comment on above: Performed By: #### L [id number] ####Digital Press Operator: CARMEL HOWARD ([phone])[facility] ([facility])[address] [place] [address] NITRITE PRESENCE IN URINE Negative Normal Negative [facility] Comment on above: Performed By: #### L [id number] ####Digital Press Operator: CARMEL HOWARD ([phone])[facility] ([facility])[address] [place] [address] pH (U) 7.0 [pH] Normal 5.0-8.0 [facility] Comment on above: Performed By: #### L [id number] ####Digital Press Operator: CARMEL HOWARD ([phone])[facility] ([facility])[address] [place] [address] Protein (U) [Mass/Vol] Negative Normal Negative [facility] Comment on above: Performed By: #### L [id number] ####Digital Press Operator: CARMEL HOWARD ([phone])[place])[address] [place] [address] Specific gravity (U) [Rel density] 1.015 Normal 1.005-1.030 [facility] Comment on above: Result Comment: MARTINEZ Dora COMMENTS:A specimen with <=10 WBC is not consistent with inflammation. This specimen will not reflex to a urine culture. Performed By: #### L [id number] ####Digital Press Operator: CARMEL HOWARD ([phone])[facility] ([facility])[address] [place] [address] UROBILINOGEN (MG/DL) IN URINE Normal Normal Normal (0-1) [facility] Comment on above: Performed By: #### L [id number] ####Digital Press Operator: CARMEL HOWARD ([phone])[facility] [place] [address] [place] ABDOMEN PELVIS W CONTRAST on 09-08-2024 CT ABDOMEN PELVIS W CONTRAST Normal [facility] CT Abdomen and Pelvis W cont rast Jose Luis 09-08-2024 Patient Name: LAINE GARCIA : 1955 Exam Date/Time: 09/08/2024 15:34 Procedure: CT ABDOMEN [...] Electronically Signed Date/Time: 09/08/2024 3:58 PM EDT [facility] Henry Gonzales MD - 09/08/2024 Patient Name: LAINE GARCIA : 1955 [facility]#: [id number] Exam Date/Time: 09/08/2024 15:34 Procedure: CT ABDOMEN [...] Electronically Signed Date/Time: 09/08/2024 3:58 PM EDT [facility] Radiology Study observation (narrative) [facility] alth CT Abdomen and Pelvis W cont rast IVOrdered By: Henry Gonzales on 09-08-2024 [facility] Work Phone: ED Nursing Noteon 09-08-2024 ED Nursing Note Pt complains of abd pain that started Wednesday. Pt states surgery 08/09. Normal [facility] ED Provider Noteon ED Provider Note Normal [facility] HEPATIC FUNCTION PANELon Albumin [Mass/Vol] 3.1 g/dL Low 3.4-4.8 [facility] Comment on above: Performed By: #### L AB15, LAB99, LAB20 ####Digital Press Operator: CARMEL HOWARD ([phone])[facility] ([facility])[address] [place] [address] ALP [Catalytic activity/Vol] 83 U/L Normal 40-150 [facility] Comment on above: Performed By: #### L AB15, LAB99, LAB20 ####Digital Press Operator: CARMEL HOWARD ([phone])[place])[address] [place] [address] ALT [Catalytic activity/Vol] 10 U/L Normal <40 [facility] Comment on above: Performed By: #### L AB15, LAB99, LAB20 ####Digital Press Operator: CARMEL HOWARD ([id number])[place])[address] [place] [address] AST [Catalytic activity/Vol] 20 U/L Normal <34 [facility] Comment on above: Performed By: #### L AB15, LAB99, LAB20 ####Digital Press Operator: CARMEL HOWARD ([phone])[facility] ([facility])[address] [place] [address] Bilirubin [Mass/Vol] 0.7 mg/dL Normal <1.2 [facility] Comment on above: Performed By: #### L AB15, LAB99, LAB20 ####Digital Press Operator: CARMEL HOWARD ([phone])[place])[address] [place] [address] Bilirubin.indirect [Mass/Vol] 0.2 mg/dL Normal <0.5 [facility] Comment on above: Performed By: #### L AB15, LAB99, LAB20 ####Digital Press Operator: CARMEL HOWARD ([phone])[place])[address] [place] [address] Protein [Mass/Vol] 6.6 g/dL Normal 6.4-8.3 [facility] Comment on above: Result Comment: Seru m protein values are higher than plasma values. Samples from recumbent persons are lower by up to 0.5 g/dL as compared to ambulatory persons. After 60 years values are lower by up to 0.2 g/dL. Performed By: #### L AB15, LAB99, LAB20 ####Digital Press Operator: CARMEL HOWARD ([phone])[place])[address] [place] [address] Hepatic function 2000 panelo n 09-08-2024 Albumin [Mass/Vol] 3.1 g/dL Low 3.4 - 4.8 g/dL [facility] ALP [Catalytic activity/Vol] 83 U/L 40 - 150 U/L [facility] ALT [Catalytic activity/Vol] 10 U/L NINF - 40 U/L [facility] AST [Catalytic activity/Vol] 20 U/L NINF - 34 U/L [facility] Bilirubin [Mass/Vol] 0.7 mg/dL NINF - 1.2 mg/dL [facility] Bilirubin.conjugated [Mass/Vol] 0.2 mg/dL NINF - 0.5 mg/dL [facility] Protein [Mass/Vol] 6.6 g/dL 6.4 - 8.3 g/dL [facility] Comment on above: Serum protein values are higher than plasma values. Samples from recumbent persons are lower by up to 0.5 g/dL as compared to ambulatory persons. After 60 years values are lower by up to 0.2 g/dL. LIPASEon 09-08-2024 Lipase [Catalytic activity/Vol] 17 U/L Normal <55 [facility] Comment on above: Performed By: #### L AB15, LAB99, LAB20 ####Digital Press Operator: CARMEL HOWARD ([phone])[facility] ([facility])[address] [place] [address] Laboratory - Chemistry and C hemistry - challengeon 09-08-2024 Lipase [Catalytic activity/Vol] 17 U/L NINF - 55 U/L [facility] Lipase [Catalytic activity/V ol]on 09-08-2024 Interpretation and review of laboratory results Normal [facility] No Panel Informationon 09-08 Interpretation and review of laboratory results Abnormal [facility] Urinalysis complete panel (U )Ordered By: Joe Swab on 09-08-2024 Bilirubin Ql (U) Negative Negative mg/dL [facility] Clarity (U) Clear Clear [facility] Color (U) Light Yellow Lt. Yellow [facility] Glucose Ql (U) Normal Normal (<70) mg/dL [facility] Hemoglobin Ql (U) Negative Negative mg/dL [facility] Interpretation and review of laboratory results Abnormal [facility] Ketones (U) [Mass/Vol] 40 mg/dL Abnormal Negative [facility] Leukocyte esterase Test strip Ql (U) Negative Negative [place]/uL [facility] Nitrite Ql (U) Negative Negative [facility] th pH (U) 7.0 [pH] 5.0 - 8.0 pH [facility] Protein (U) [Mass/Vol] Negative Negat mis mg/dL [facility] Specific gravity (U) [Rel density] 1.015 1.005 - 1.030 [facility] Urobilinogen (U) [Mass/Vol] Normal Normal (0-1) mg/dL [facility] A specimen with <=10 WBC is not consistent with inflammation. This specimen will not reflex to a urine culture. [facility] 3609-06-2024 36 Normal [facility] 09-04-2024 36 Pt emergency contact Mary Lou called to say that Dr Spann referred him to Dr Tracy office at the [facility] for a stent for the removal of a duodenal stent. She wants to know if we have the number to contact there office? Normal [facility] MR/BMS.BVSon 09-01-2024 MR/BMS.BVS [facility] Vascular Surgery [address] [place] [address]. [address] [place] [address] OFFICE VISIT Date of Service: 09/01/24 MR#: [id number] Acct: [id number] Name: JOSELAINE Ned Rep #: [id number] : 1955 Provider: MADDIE Clayton Age/Sex: 69/M Location: [facility] Status: Signed Intake Vital Signs 08/07/24 15:16 09/01/24 15:41 Height 5 ft 10 in Weight: 171 lb BP 110/68 Blood Pressure Location Lt brachial Position Sitting Respiration 16 Pulse 65 Pulse Source Monitor Temp 98 F Temp Source Temporal Pulse Oximetry (%) 98 Oxygen Delivery Method room air Intake Visit Reasons: Hospital FU Chief Complaint: establish care Is patient in pain?: Yes Allergies Penicillins Adverse Reaction (Verified 09/01/24 15:42) PT UNABLE TO RESPOND-NEEDS F/U Medications ???Medication ???Instructions ???Recorded ???Confirmed ???Type multivitamin 1 tab PO DAILY supplement 01/22/20 09/01/24 History omega-3 fatty acids 1,000 mg 2,000 mg PO BID supplement 0 09/01/24 History capsule turmeric 450 mg-turmeric root 1 cap PO DAILY supplement 01/22/20 09/01/24 History extract 50 mg capsule polyethylene glycol 3350 17 17 g PO DAILY PRN laxative effect 08/05/24 09/01/24 History gram/dose oral powder (ClearLax) psyllium husk 0.4 gram capsule 0.8 g PO BID 08/05/24 09/01/24 His tory (Daily Fiber) apixaban 5 mg tablet (Eliquis) 5 mg PO BID 09/01/24 09/01/24 Hist ory Have you fallen in the past year?: Yes PFSH Medical History History of DVT (deep vein thrombosis) Mitral valve prolapse Surgical History H/O shoulder surgery History of repair of hiatal hernia Family History Father Myocardial infarction Mother CVA (cerebral vascular accident) Social History Smoking Status: Never smoker alcohol intake: never HPI HPI HPI: LAINE GARCIA, is a 69 M who presents to the office today for follow-up s/p IVC filter placement on 08/09/24 during recent hospitalization for GI bleeding from duodenal ulcers which was ultimately complicated by duodenal perforation and bilateral PE. He was transferred to [facility] and he states while there he underwent laparoscopic repair of a duodenal perforation. He reports he is recovering okay, still having some abdominal discomfort but overall improving. His duodenal stent is still in place, he is to have this removed at [facility] in the next month or so. He was restarted on Eliquis last week, so far he is tolerating well without any bloody/black stools or other signs of adverse bleeding. He denies any concerns at the R groin access site, reports this healed readily. He does have a prior history of DVT in 2016, he reports this was also sustained postoperatively. He also reports a personal history of Factor V Leiden. He was not chronically anticoagulated prior to his recent hospitalization. ROS General General: No weight change, appetite, fatigue, colon cancer, breast cancer or weakness HEENT HEENT: Yes hoarseness; No difficulty swallowing, eye injury, eye surgery or swollen glands Endo Endocrine: No thyroid disease, diabetes mellitus, thyroid cancer, Hair loss, heat intolerance or cold intolerance Skin Skin: No rash or changing moles Musc Musculoskeletal: No back problems, arthritis, rheumatoid arthritis, gout or joint pain Cardio Cardiovascular: No murmur, pacemaker, heart disease, atrial fibrillation, high blood pressure, heart attack, heart stent, palpitations, shortness of breath with exertion or chest pain Psych Psychiatric: No depression, anxiety or hearing voices Resp Respiratory: Yes shortness of breath, No sleep apnea, No cough, No COPD, No asthma, No emphysema and No wheezing Gastro Gastrointestinal: Yes abdominal pain, No nausea or vomiting, No diarrhea, No constipation, No blood in stool, No acid reflux, No hemorrhoids, No ulcers, No gallbladder problem and No black,tarry stools Herson Hematologic: Yes blood thinners, No blood disorders, No bleeding, No anemia and No blood clots Neuro Neurologic: No system reviewed and no additional complaints, except as documented, No as per HPI, No abnormal gait, No abnormal hearing, No abnormal movements, No abnormal speech, No behavioral changes, No burning sensations, No confusion, No convulsions, Yes disequilibrium, Yes dizziness, Yes localized weakness, No frequent falls, Yes headache(s), No lack of coordination, No loss of vision, No memory loss, No numbness, No other visual disturbances, No radicular pain, No restless legs, No sensory deficit, Yes syncope, No tingling, No tremor(s), No weakness and No other Exa (more content not included)... Normal [facility] 08-25-2024 30 [facility] [id number] 08-25-2024 [id number] [facility] 3608-25-2024 36 Patient currently in the hospital Normal [facility] COMPLETE URINALYSIS WITH REF SAMANTA TO CULTURE08-25-2024 BILIRUBIN, TOTAL PRESENCE IN URINE Negative Normal Negative [facility] Comment on above: Performed By: #### L [id number] ####Digital Press Operator: CARMEL HOWARD ([phone])[facility] ([facility])[address] [place] [address] Clarity (U) Clear Normal Clear [facility] Comment on above: Performed By: #### L [id number] ####Digital Press Operator: CARMEL HOWARD ([id number])[facility] ([facility])[address] [place] [address] Color (U) Colorless Normal Lt. Yellow [facility] Comment on above: Performed By: #### L [id number] ####Digital Press Operator: CARMEL HOWARD ([phone])[facility] ([facility])[address] [place] [address] GLUCOSE (MG/DL) IN URINE Normal Normal Normal (<70) [facility] Comment on above: Performed By: #### L [id number] ####Digital Press Operator: CARMEL HOWARD ([phone])[facility] ([facility])[address] [place] [address] HEMOGLOBIN PRESENCE IN URINE Negative Normal Negative [facility] Comment on above: Performed By: #### L [id number] ####Digital Press Operator: CARMEL HOWARD ([phone])[facility] ([facility])[address] [place] [address] Ketones Ql (U) Negative Normal Negative [facility] Comment on above: Performed By: #### L [id number] ####Digital Press Operator: CARMEL HOWARD ([phone])[facility] ([facility])[address] [place] [address] LEUKOCYTE ESTERASE PRESENCE IN URINE BY TEST STRIP Negative Normal Negative [facility] Comment on above: Performed By: #### L [id number] ####Digital Press Operator: CARMEL HOWARD ([phone])[facility] ([facility])[address] [place] [address] NITRITE PRESENCE IN URINE Negative Normal Negative [facility] Comment on above: Performed By: #### L [id number] ####Digital Press Operator: CARMEL HOWARD ([id number])[facility] ([facility])[address] [place] [address] pH (U) 5.5 [pH] Normal 5.0-8.0 [facility] Comment on above: Performed By: #### L [id number] ####Digital Press Operator: CARMEL HOWARD ([phone])[facility] ([facility])[address] [place] [address] Protein (U) [Mass/Vol] Negative Normal Negative [facility] Comment on above: Performed By: #### L [id number] ####Digital Press Operator: CARMEL HOWARD ([phone])[place])[address] [place] [address] Specific gravity (U) [Rel density] >1.030 High 1.005-1.030 [facility] Comment on above: Result Comment: ORDE R COMMENTS:A specimen with <=10 WBC is not consistent with inflammation. This specimen will not reflex to a urine culture. Performed By: #### L [id number] ####Digital Press Operator: CARMEL HOWARD ([phone])[facility] ([facility])[address] [place] [address] UROBILINOGEN (MG/DL) IN URINE Normal Normal Normal (0-1) [facility] Comment on above: Performed By: #### L [id number] ####Digital Press Operator: CARMEL HOWARD ([phone])[place])[address] [place] [address] CT ABDOMEN PELVIS WO IV CONT RASTon 08-25-2024 CT ABDOMEN PELVIS WO IV CONTRAST Normal [facility] Consulton 08-25-2024 Consult Normal [facility] ECG 12-LEADon 08-25-2024 ECG 12-LEAD IMPRESSION: Sinus rhythm Minimal ST depression, inferior leads Compared to ECG 08/09/24 No significant change Electronically Signed On 08-25-2024 06:30:05 EDT by Joe Machado Normal [facility] ED Nursing Noteon 08-25-2024 ED Nursing Note Pt transport has bee n requested Normal [facility] HEPATIC FUNCTION PANELon Albumin [Mass/Vol] 2.6 g/dL Low 3.4-4.8 [facility] Comment on above: Performed By: #### L [id number], [id number] ####Digital Press Operator: CARMEL HOWARD ([phone])[facility] ([facility])[address] [place] [address] ALP [Catalytic activity/Vol] 75 U/L Normal 40-150 [facility] Comment on above: Performed By: #### L AB20, [id number] ####Digital Press Operator: CARMEL HOWARD ([phone])[place])[address] [place] [address] ALT [Catalytic activity/Vol] 12 U/L Normal <40 [facility] Comment on above: Performed By: #### L AB20, [id number] ####Digital Press Operator: CARMEL HOWARD ([phone])[facility] ([facility])[address] [place] [address] AST [Catalytic activity/Vol] 19 U/L Normal <34 [facility] Comment on above: Performed By: #### L AB20, [id number] ####Digital Press Operator: CARMLE HOWARD ([phone])[place])[address] [place] [address] Bilirubin [Mass/Vol] 0.4 mg/dL Normal <1.2 [facility] Comment on above: Performed By: #### L AB20, [id number] ####Digital Press Operator: CARMEL HOWARD ([phone])[place])[address] [place] [address] Bilirubin.indirect [Mass/Vol] 0.2 mg/dL Normal <0.5 [facility] Comment on above: Performed By: #### L AB20, [id number] ####Digital Press Operator: CARMEL HOWARD ([phone])[facility] [place] [address] Protein [Mass/Vol] 5.3 g/dL Low 6.4-8.3 [facility] Comment on above: Result Comment: Seru m protein values are higher than plasma values. Samples from recumbent persons are lower by up to 0.5 g/dL as compared to ambulatory persons. After 60 years values are lower by up to 0.2 g/dL. Performed By: #### L AB20, [id number] ####Digital Press Operator: CARMEL HOWARD ([phone])[facility] ([facility])[address] [place] [address] HIGH SENSITIVITY TROPONIN, S ERIAL, SECOND TESTon 08-25-2024 2H TROPONIN HS (SERIAL 2ND TROPONIN) 5 ng/L Normal <=35 [facility] Comment on above: Result Comment: 2h t roponin (2nd troponin) samples collected between 1h 40 min and 2h and 20 min of the baseline collection time can be utilized to interpret delta troponins as per [facility] algorithms. Samples collected outside this timeframe need to be interpreted clinically.Rising or falling troponin delta below 2 ng/L as compared to baseline value suggests thatacute cardiac injury is unlikely. Performed By: #### L AB20, [id number] ####Digital Press Operator: CARMEL HOWARD ([phone])[facility] ([facility])[address] [place] [address] Nursing Noteon 08-25-2024 Nursing Note Normal [facility] PSA TOTAL (DIAGNOSTIC POST-P ROSTATECTOMY)on 08-25-2024 PROSTATE SPECIFIC AG TOTAL 3.718 ng/mL High <=0.200 [facility] Comment on above: Result Comment: MARTINEZ Veliz COMMENTS:Testing performed on the [employer] using a two-step chemiluminescent microparticle immunoassay method. Results obtained by different methods should not be used interchangeably. A prostate specific antigen of >0.2 ng/mL is considered as initial evidence of biochemical recurrence following radical prostatectomy. Performed By: #### L [id number] ####Digital Press Operator: ALESSIA WHARTON ([id number])[facility] ([facility])[address] [place] [address] Progress Noteon 08-25-2024 Progress Note Normal [facility] 36on 08-24-2024 36 Normal [facility] CBC WITH AUTO DIFFERENTIALon 08-24-2024 Erythrocyte distribution width (RBC) [Ratio] 14.7 % Normal 11.5-15.0 [facility] Comment on above: Performed By: #### L [id number], [id number] ####Digital Press Operator: CARMEL HOWARD ([id number])[place])[address] [place] [address] Hematocrit (Bld) [Volume fraction] 33.0 % Low 40.0-52.0 [facility] Comment on above: Performed By: #### L [id number], [id number] ####Digital Press Operator: CARMEL HOWARD ([phone])[address] Hemoglobin (Bld) [Mass/Vol] 10.7 g/dL Low 13.0-18.0 [facility] Comment on above: Performed By: #### L [id number], [id number] ####Digital Press Operator: CARMEL HOWARD ([id number])[address] MCH (RBC) [Entitic mass] 29.1 pg Normal 26.0-34.0 [facility] Comment on above: Performed By: #### L [id number], [id number] ####Digital Press Operator: CARMEL HOWARD ([phone])[place])[address] [place] [address] MCHC 32.4 % Normal 30.5-36.0 [facility] Comment on above: Performed By: #### L [id number], [id number] ####Digital Press Operator: CARMEL HOWARD ([phone])[place])[address] [place] [address] MCV (RBC) [Entitic vol] 89.7 fL Normal 77.0-99.0 [facility] Comment on above: Performed By: #### L [id number], [id number] ####Digital Press Operator: CARMEL HOWARD ([phone])[place])[address] [place] [address] Platelet mean volume (Bld) [Entitic vol] 9.1 fL Normal 9.0-12.7 [facility] Comment on above: Performed By: #### L [id number], [id number] ####Digital Press Operator: CARMEL HOWARD ([phone])[place])[address] [place] [address] Platelets (Bld) [#/Vol] 365 10*3/uL Normal 140-440 [facility] Comment on above: Performed By: #### L [id number], [id number] ####Digital Press Operator: CARMEL HOWARD ([phone])[place])[address] [place] [address] RBC (Bld) [#/Vol] 3.68 10*6/uL Low 4.40-5.90 [facility] Comment on above: Performed By: #### L [id number], [id number] ####Digital Press Operator: CARMEL HOWARD ([phone])[place])[address] [place] [address] WBC (Bld) [#/Vol] 5.9 10*3/uL Normal 3.6-10.7 [facility] Comment on above: Performed By: #### L [id number], [id number] ####Digital Press Operator: CARMEL HOWARD ([id number])[place])[address] [place] [address] COMPREHENSIVE METABOLIC PANE Pollo 08-24-2024 Albumin [Mass/Vol] 2.9 g/dL Low 3.4-4.8 [facility] Comment on above: Performed By: #### L AB17, [id number], [id number], LAB99 ####Digital Press Operator: CARMEL HOWARD ([phone])[place])[address] [place] [address] ALP [Catalytic activity/Vol] 83 U/L Normal 40-150 [facility] Comment on above: Performed By: #### L AB17, [id number], [id number], LAB99 ####Digital Press Operator: CARMEL HOWARD ([phone])[facility] ([facility])[address] [place] [address] ALT [Catalytic activity/Vol] 15 U/L Normal <40 [facility] Comment on above: Performed By: #### L AB17, [id number], [id number], LAB99 ####Digital Press Operator: CARMEL HOWARD ([id number])[facility] ([facility])[address] [place] [address] Anion gap [Moles/Vol] 10 mmol/L Normal 3-13 [facility] Comment on above: Performed By: #### Lily AB17, [id number], [id number], LAB99 ####Digital Press Operator: CARMEL HOWARD ([phone])[facility] ([facility])[address] [place] [address] AST [Catalytic activity/Vol] 28 U/L Normal <34 [facility] Comment on above: Performed By: #### L AB17, [id number], [id number], LAB99 ####Digital Press Operator: CARMEL HOWARD ([phone])[facility] ([facility])[address] [place] [address] Bilirubin [Mass/Vol] 0.4 mg/dL Normal <1.2 [facility] Comment on above: Performed By: #### L AB17, [id number], [id number], LAB99 ####Digital Press Operator: CARMEL HOWARD ([phone])[facility] ([facility])[address] [place] [address] Calcium [Mass/Vol] 8.7 mg/dL Low 8.8-10.0 [facility] Comment on above: Performed By: #### L AB17, [id number], [id number], LAB99 ####Digital Press Operator: CARMEL HOWARD ([phone])[facility] ([facility])[address] [place] [address] Chloride [Moles/Vol] 105 mmol/L Normal 98-107 [facility] Comment on above: Performed By: #### L AB17, [id number], [id number], LAB99 ####Digital Press Operator: CARMEL HOWARD ([phone])[place])[address] [place] [address] CO2 [Moles/Vol] 20 mmol/L Low 23-31 [facility] Comment on above: Performed By: #### L AB17, [id number], [id number], LAB99 ####Digital Press Operator: CARMEL HOWARD ([id number])[place])[address] [place] [address] Creatinine [Mass/Vol] 0.79 mg/dL Normal 0.72-1.25 [facility] Comment on above: Performed By: #### Lily AB17, [id number], [id number], LAB99 ####Digital Press Operator: CARMEL HOWARD ([id number])[place])[address] [place] [address] GLOMERULAR FILTRATION RATE ML/MIN/1.73 SQ M.PREDICTED >90.0 Normal >60.0 [facility] Comment on above: Result Comment: Calc ulation based on the Chronic Kidney Disease Epidemiology Collaboration (CKD-EPI) equation refit without adjustment for race Performed By: #### L AB17, [id number], [id number], LAB99 ####Digital Press Operator: CARMEL HOWARD ([id number])[facility] ([facility])[address] [place] [address] Glucose [Mass/Vol] 108 mg/dL Normal 82-115 [facility] Comment on above: Performed By: #### L AB17, [id number], [id number], LAB99 ####Digital Press Operator: CARMEL HOWARD ([phone])[place])[address] [place] [address] Potassium [Moles/Vol] 4.4 mmol/L Normal 3.5-5.1 [facility] Comment on above: Result Comment: Plas ma potassium values may be up to 0.5 mmol/L lower than serum values. Performed By: #### L AB17, [id number], [id number], LAB99 ####Digital Press Operator: CARMEL HOWARD ([phone])[place])[address] [place] [address] Protein [Mass/Vol] 6.4 g/dL Normal 6.4-8.3 [facility] Comment on above: Performed By: #### L AB17, [id number], [id number], LAB99 ####Digital Press Operator: CARMEL HOWARD ([id number])[facility] ([facility])[address] [place] [address] Sodium [Moles/Vol] 135 mmol/L Low 136-145 [facility] Comment on above: Performed By: #### L AB17, [id number], [id number], LAB99 ####Digital Press Operator: CARMEL HOWARD ([id number])[place])[address] [place] [address] Urea nitrogen [Mass/Vol] 19 mg/dL Normal 9-23 [facility] Comment on above: Performed By: #### L AB17, [id number], [id number], LAB99 ####Digital Press Operator: CARMEL HOWARD ([id number])[place])[address] [place] [address] CT ABDOMEN PELVIS W CONTRAST on 08-24-2024 CT ABDOMEN PELVIS W CONTRAST Normal [facility] CT CHEST ANGIOGRAM W AND/OR WO IV CONTRASTon 08-24-2024 CT CHEST ANGIOGRAM W AND/OR WO IV CONTRAST Normal [facility] ED Provider Noteon ED Provider Note Normal [facility] HIGH SENSITIVITY TROPONIN, S ERIAL BASELINEon 08-24-2024 TROPONIN HS SERIAL BASELINE 4 ng/L Normal <=35 [facility] Comment on above: Result Comment: In i ndividuals presenting with symptoms > 2h, a baseline troponin <= 5 ng/L suggests acutecardiac injury is unlikely and further serial testing is generally not indicated. Performed By: #### L AB17, [id number], [id number], LAB99 ####Digital Press Operator: CARMEL HOWARD ([phone])[place])[address] [place] [address] LIPASEon 08-24-2024 Lipase [Catalytic activity/Vol] 60 U/L High <55 [facility] Comment on above: Performed By: #### L AB17, [id number], [id number], LAB99 ####Digital Press Operator: CARMEL HOWARD ([phone])[place])[address] [place] [address] MANUAL DIFFERENTIAL (CELLAVI GRACIELA)on 08-24-2024 ACANTHOCYTES (PRESENCE) IN BLOOD BY LIGHT MICROSCOPY Slight Abnormal (none) [facility] Comment on above: Performed By: #### L [id number], [id number] ####Digital Press Operator: CARMEL HOWARD ([phone])[place])[address] [place] [address] BAND NEUTROPHILS TOTAL PER COUNTED LEUKOCYTES BY MANUAL COUNT 2 Normal [facility] Comment on above: Performed By: #### L [id number], [id number] ####Digital Press Operator: CARMEL HOWARD ([id number])[place])[address] [place] [address] BANDS (10*3/UL) IN BLOOD-CELLAVISION 0.1 10*3/uL High <=0.0 [facility] Comment on above: Performed By: #### L [id number], [id number] ####Digital Press Operator: CARMEL HOWARD ([phone])[place])[address] [place] [address] BASOPHILS (10*3/UL) IN BLOOD-CELLAVISION 0.1 10*3/uL Normal 0.0-0.2 [facility] Comment on above: Performed By: #### L [id number], [id number] ####Digital Press Operator: CARMEL HOWARD ([id number])[place])[address] [place] [address] BASOPHILS TOTAL PER COUNTED LEUKOCYTES BY MANUAL COUNT 1 Normal [facility] Comment on above: Performed By: #### L [id number], [id number] ####Digital Press Operator: CARMEL HOWARD ([phone])[facility] ([facility])[address] [place] [address] [place] BASOPHILS/100 LEUKOCYTES IN BLOOD-CELLAVISION 1 % Normal 0-2 [facility] Comment on above: Performed By: #### L [id number], [id number] ####Digital Press Operator: CARMEL HOWARD ([id number])[facility] [place] [address] [place] BLASTS TOTAL PER COUNTED LEUKOCYTES BY MANUAL COUNT Normal [facility] Comment on above: Performed By: #### L [id number], [id number] ####Digital Press Operator: CARMEL HOWARD ([phone])[facility] [place] [address] [place] EOSINOPHILS TOTAL PER COUNTED LEUKOCYTES BY MANUAL COUNT [facility] Comment on above: Performed By: #### L [id number], [id number] ####Digital Press Operator: CARMEL HOWARD ([phone])[facility] [place] [address] [place] LYMPHOCYTES (10*3/UL) IN BLOOD-CELLAVISION 0.4 10*3/uL Low 1.0-4.3 [facility] Comment on above: Performed By: #### L [id number], [id number] ####Digital Press Operator: CARMEL HOWARD ([phone])[facility] [place] [address] [place] LYMPHOCYTES TOTAL PER COUNTED LEUKOCYTES BY MANUAL COUNT 7 Normal [facility] Comment on above: Performed By: #### L [id number], [id number] ####Digital Press Operator: CARMEL HOWARD ([phone])[facility] ([facility])[address] [place] [address] [place] LYMPHOCYTES/100 LEUKOCYTES IN BLOOD-CELLAVISION 7 % Low 15-45 [facility] Comment on above: Performed By: #### L [id number], [id number] ####Digital Press Operator: CARMEL HOWARD ([phone])[facility] ([facility])[address] [place] [address] [place] METAMYELOCYTES TOTAL PER COUNTED LEUKOCYTES BY MANUAL COUNT Normal [facility] Comment on above: Performed By: #### L [id number], [id number] ####Digital Press Operator: CARMEL HOWARD ([id number])[facility] [place] [address] [place] MONOCYTES (10*3/UL) IN BLOOD-CELLAVISION 0.2 10*3/uL Normal 0.0-0.9 [facility] Comment on above: Performed By: #### L [id number], [id number] ####Digital Press Operator: CARMEL HOWARD ([phone])[facility] [place] [address] [place] MONOCYTES TOTAL PER COUNTED LEUKOCYTES BY MANUAL COUNT 4 Normal [facility] Comment on above: Performed By: #### L [id number], [id number] ####Digital Press Operator: CARMEL HOWARD ([phone])[facility] [place] [address] [place] MONOCYTES/100 LEUKOCYTES IN BLOOD-ARIAS 4 % Low 5-13 [facility] Comment on above: Performed By: #### L [id number], [id number] ####Digital Press Operator: CARMEL HOWARD ([phone])[facility] ([facility])[address] [place] [address] [place] MYELOCYTES COUNTED BY MANUAL COUNT Normal [facility] Comment on above: Performed By: #### L [id number], [id number] ####Digital Press Operator: CARMEL HOWARD ([phone])[facility] [place] [address] [place] NEUTROPHILS BAND FORM/100 LEUKOCYTES IN BLOOD-CELLAVISI 2 % High <=0 [facility] Comment on above: Performed By: #### L [id number], [id number] ####Digital Press Operator: CARMEL HOWARD ([phone])[facility] [place] [address] [place] NEUTROPHILS TOTAL PER COUNTED LEUKOCYTES BY MANUAL COUNT 87 Normal [facility] Comment on above: Performed By: #### L [id number], [id number] ####Digital Press Operator: CARMEL HOWARD ([phone])[facility] ([facility])[address] [place] [address] OVALOCYTES PRESENCE IN BLOOD BY LIGHT MICROSCOPY Slight Abnormal (none) [facility] Comment on above: Performed By: #### L [id number], [id number] ####Digital Press Operator: CARMEL HOWARD ([id number])[facility] [place] [address] [place] POIKILOCYTOSIS (PRESENCE) IN BLOOD BY LIGHT MICROSCOPY Slight Abnormal (none) [facility] Comment on above: Performed By: #### L [id number], [id number] ####Digital Press Operator: CARMEL HOWARD ([phone])[facility] ([facility])[address] [place] [address] PROMYELOCYTES TOTAL PER COUNTED LEUKOCYTES BY MANUAL COUNT Normal [facility] Comment on above: Performed By: #### L [id number], [id number] ####Digital Press Operator: CARMEL HOWARD ([phone])[facility] ([facility])[address] [place] [address] [place] RBC MORPHOLOGY IN BLOOD abnormal Normal [facility] Comment on above: Performed By: #### L [id number], [id number] ####Digital Press Operator: CARMEL HOWARD ([phone])[facility] ([facility])[address] [place] [address] [place] SEGMENTED NEUTROPHILS (10*3/UL) IN BLOOD-CELLAVISION 5.2 10*3/uL Normal 1.8-7.5 [facility] Comment on above: Performed By: #### L [id number], [id number] ####Digital Press Operator: CARMEL HOWARD ([phone])[facility] ([facility])[address] [place] [address] [place] SEGMENTED NEUTROPHILS/100 LEUKOCYTES-CE 86 % High 38-82 [facility] Comment on above: Performed By: #### L [id number], [id number] ####Digital Press Operator: CARMEL HOWARD ([phone])[place])[address] [place] [address] UNCLASSIFIED CELLS TOTAL PER COUNTED LEUKOCYTES BY MANUAL COUNT Normal [facility] Comment on above: Performed By: #### L [id number], [id number] ####Digital Press Operator: CARMEL HOWARD ([phone])[place])[address] [place] [address] VARIANT LYMPHOCYTES TOTAL PER COUNTED LEUKOCYTES BY MANUAL COUNT Normal [facility] Comment on above: Performed By: #### L [id number], [id number] ####Digital Press Operator: CARMEL HOWARD ([phone])[place])[address] [place] [address] NT PRO BNPon 08-24-2024 Natriuretic peptide B (Bld) [Mass/Vol] 67 pg/mL Normal <125 [facility] Comment on above: Performed By: #### L [id number], [id number], [id number], [id number] ####Digital Press Operator: CARMEL HOWARD ([phone])[place])[address] [place] [address] PROTHROMBIN TIMEon INR Coag (PPP) [Relative time] 1.1 {INR} Normal 0.9-1.1 [facility] Comment on above: Result Comment: Yoshi mmended Anticoagulant Therapy: SEE BELOW----- INR of 2.0 - 3.0 : - Prophylaxis of Venous Thrombosis (high-risk surgery) - Treatment of Venous Thrombosis - Treatment of Pulmonary Embolism (Includes tissue heart valves, Acute Myocardial Infarction to prevent systemic embolism, Valvular Heart Disease, and Atrial Fibrillation)----- INR of 2.5 - 3.5 : - Mechanical Prosthetic Valves (high risk) - If oral anticoagulant therapy is used to prevent Myocardial Infarction Performed By: #### L [id number] ####Digital Press Operator: CARMEL HOWARD ([phone])[place])[address] [place] [address] PT Coag (PPP) [Time] 11.4 s Normal 9.0-12.0 [facility] Comment on above: Performed By: #### L [id number] ####Digital Press Operator: CARMEL HOWARD ([phone])[facility] ([facility])[address] [place] [address] [facility] Progress Noteon 08-24-2024 Progress Note Normal [facility] Gastroenterology Visit Repor ton 08-22-2024 Gastroenterology Visit Report [facility] Gastroenterology [address] [place] [address] OFFICE VISIT Date of Service: 08/22/24 MR#: [id number] Acct: [id number] Name: LAINE GARCIA Rep #: [id number] : 1955 Provider: Betito Avendano DO Age/Sex: 69/M [place] [facility] [place]: Signed Intake Vital Signs 08/07/24 15:16 Height 5 ft 10 in Intake Visit Reasons: Hospital FU Allergies Penicillins Adverse Reaction (Verified 08/05/24 13:12) PT UNABLE TO RESPOND-NEEDS F/U Medications ???Medication ???Instructions ???Recorded ???Confirmed ???Type multivitamin 1 tab PO DAILY supplement 01/22/20 08/22/24 History omega-3 fatty acids 1,000 mg 2,000 mg PO BID supplement 0 08/22/24 History capsule turmeric 450 mg-turmeric root 1 cap PO DAILY supplement 01/22/20 08/22/24 History extract 50 mg capsule polyethylene glycol 3350 17 17 g PO DAILY PRN laxative effect 08/05/24 08/22/24 History gram/dose oral powder (ClearLax) psyllium husk 0.4 gram capsule 0.8 g PO BID 08/05/24 08/22/24 His tory (Daily Fiber) Have you fallen in the past year?: No PFSH Medical History History of DVT (deep vein thrombosis) Mitral valve prolapse Surgical History H/O shoulder surgery History of repair of hiatal hernia Family History Father Myocardial infarction Mother CVA (cerebral vascular accident) Social History Smoking Status: Never smoker alcohol intake: never HPI HPI Details: LAINE GARCIA, is a 69 M who presents to the office today for hospital follow up. abd/pelvis CT .04.29 1. Right renal cyst. 2. Left paravertebral cysts. 3. Left hepatic lobe cyst. 4. Other nonacute findings detailed above. [facility] hospitalization 5.06.27 - 5 abd pain - consulted for GI bleed abd/pelvis CT 5.06.27 1. Punctate gas within the proximal duodenum with mild duodenal thickening, which is nonspecific and may represent duodenitis or non perforated duodenal ulcer. 2. Otherwise unremarkable CT abdomen pelvis. EGD 5.06.27 Normal esophagus. No gross lesions in the entire stomach. Spurting duodenal ulcers with a visible vessel. Injected. Treated with argon plasma coagulation (APC). Non-bleeding duodenal ulcers with no stigmata of bleeding. Treated with argon plasma coagulation (APC). No specimens collected. EGD 5.08.27 Normal esophagus. Normal stomach. Oozing duodenal ulcers with a visible vessel. Injected. Treated with argon plasma coagulation (APC). Prosthesis placed. Clips were placed. 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 abd/pelvis CT 5.25 Interval placement gastroduodenal stent, since prior. No pneumoperitoneum. Otherwise, no acute findings in the abdomen and pelvis. abd/pelvis CT 5 1. Redemonstrated small to moderate volume ill-defined [...] PO contrast given a small amount of high- density presumed PO contrast within the stomach. 2. Findings suggestive of cystitis and/or chronic bladder outlet obstruction given prostatomegaly. Correlate with urinalysis. 3. Refer to recent CTA chest report for intrathoracic findings. 4. Additional description as above. Had surgical procedure at [facility] OV 5.20.25 pt reports that he is feeling better since hospitalization and since having procedure to fix hole in abdomen. Pt reports continued gas and bloating discomfort, but reports that this is improving. Reports that bm are returning to normal and has not had blood in stool. ROS Const Constitutional: Positive for fatigue, headache(s), weakness and weight change (weight loss); No fever(s) ENT ENT: Positive for headache(s); No difficulty swallowing Gastro GI: Positive for abdominal pain, bloating, change in bowel habits and excessive flatus; No belching, change in stool character, coffee ground emesis, constipation, cramping, diarrhea, heartburn, difficulty swallowing, feeling full early, incontinent of stools, Vomiting blood/hematemesis, Blood in stool, loose stools, Black,tarry stools, nausea/dyspepsia, pain with swallowing, vomiting or other Musc Musculoskeletal: Positive for abnormal gait, back pain, muscle weakness and restless legs; No joint pain Skin Skin: No yellowing of the eye or itchy eyes Neuro Neurology: Positive for abnormal gait, weakness, headache (more content not included)... Normal [facility] 36on 08-17-2024 [address] [facility] [address] Gurrola wants to know if the ulcer is fixed for him to be on Aspirin for the PE. States we missed the ball somewhere. Patient does not have a PCP right now. Dr Gurrola wants to know If everything is ok for him to be on it. DP [facility] 36 Per chart review, patient was advised to follow up with PCP (if he has one) to discuss resuming aspirin versus anticoagulation for history of PE. He was not discharged home with anticoagulation. Otherwise will need to establish with a PCP. Thanks [facility] 36 [facility] 30on 08-13-2024 30 [facility] 30 [facility] BASIC METABOLIC PANELon 08-03 Anion gap [Moles/Vol] 5 mmol/L Normal 3-13 [facility] Comment on above: Performed By: #### L AB15 ####Digital Press Operator: CARMEL HOWARD ([phone])[facility] ([facility])[address] [place] [address] Calcium [Mass/Vol] 7.8 mg/dL Low 8.8-10.0 [facility] Comment on above: Performed By: #### L AB15 ####Digital Press Operator: CARMEL HOWARD ([phone])[facility] [place] [address] Chloride [Moles/Vol] 109 mmol/L High 98-107 [facility] Comment on above: Performed By: #### L AB15 ####Digital Press Operator: CARMEL HOWARD ([id number])[facility] [place] [address] CO2 [Moles/Vol] 26 mmol/L Normal 23-31 [facility] Comment on above: Performed By: #### L AB15 ####Digital Press Operator: CARMEL HOWARD ([phone])[facility] ([facility])[address] [place] [address] Creatinine [Mass/Vol] 0.58 mg/dL Low 0.72-1.25 [facility] Comment on above: Performed By: #### L AB15 ####Digital Press Operator: CARMEL HOWARD ([phone])[facility] ([facility])[address] [place] [address] GLOMERULAR FILTRATION RATE ML/MIN/1.73 SQ M.PREDICTED >90.0 Normal >60.0 [facility] Comment on above: Result Comment: Calc ulation based on the Chronic Kidney Disease Epidemiology Collaboration (CKD-EPI) equation refit without adjustment for race Performed By: #### L AB15 ####Digital Press Operator: CARMEL HOWARD ([phone])[facility] [place] [address] [place] Glucose [Mass/Vol] 112 mg/dL Normal 82-115 [facility] Comment on above: Performed By: #### L AB15 ####Digital Press Operator: CARMEL HOWARD ([phone])[facility])[address] [place] [address] [place] Potassium [Moles/Vol] 3.9 mmol/L Normal 3.5-5.1 [facility] Comment on above: Result Comment: [facility] potassium values may be up to 0.5 mmol/L lower than serum values. Performed By: #### L AB15 ####Digital Press Operator: CARMEL HOWARD ([id number])[facility] ([facility])[address] [place] [address] Sodium [Moles/Vol] 140 mmol/L Normal 136-145 [facility] Comment on above: Performed By: #### L AB15 ####Digital Press Operator: CARMEL HOWARD ([phone])[facility] ([facility])[address] [place] [address] Urea nitrogen [Mass/Vol] 15 mg/dL Normal 9-23 [facility] Comment on above: Performed By: #### L AB15 ####Digital Press Operator: CARMEL HOWARD ([id number])[address] Basic metabolic 1998 panelon 08-13-2024 Anion gap [Moles/Vol] 5 mmol/L 3 - 13 mmol/L [facility] Calcium [Mass/Vol] 7.8 mg/dL Low 8.8 - 10. 0 mg/dL [facility] Chloride [Moles/Vol] 109 mmol/L High 98 - 10 7 mmol/L [facility] CO2 [Moles/Vol] 26 mmol/L 23 - 31 mmol/L [facility] Creatinine [Mass/Vol] 0.58 mg/dL Low 0.72 - 1.25 mg/dL [facility] GFR/1.73 sq M.predicted (S/P/Bld) [Vol rate/Area] - PINF [facility] Comment on above: Calculation based on the Chronic Kidney Disease Epidemiology Collaboration (CKD-EPI) equation refit without adjustment for race Glucose [Mass/Vol] 112 mg/dL 82 - 115 mg/dL [facility] Interpretation and review of laboratory results Abnormal [facility] Potassium [Moles/Vol] 3.9 mmol/L 3.5 - 5.1 mmol/L [facility] Comment on above: Plasma potassium shruthi ues may be up to 0.5 mmol/L lower than serum values. Sodium [Moles/Vol] 140 mmol/L 136 - 145 mmol/L [facility] Urea nitrogen [Mass/Vol] 15 mg/dL 9 - 23 mg/dL [facility] CBC W Auto Differential pane l (Bld)on 08-13-2024 Basophils (Bld) [#/Vol] 0 10*3/uL 0.0 - 0.2 10*3/uL [facility] Basophils/100 WBC (Bld) 0.3 % 0.0 - 2.0 % [facility] Eosinophils (Bld) [#/Vol] 0.2 10*3/uL 0.0 - 0.5 10*3/uL [facility] Eosinophils/100 WBC (Bld) 3.2 % 0.0 - 6.0 % [facility] Erythrocyte distribution width (RBC) [Ratio] 14.6 % 11.5 - 15.0 % [facility] Hematocrit (Bld) [Volume fraction] 29.3 % Low 40.0 - 52.0 % [facility] Hemoglobin (Bld) [Mass/Vol] 9.7 g/dL Low 13.0 - 18.0 g/dL [facility] Immature granulocytes (Bld) [#/Vol] 0 10*3/uL NINF - 0.1 10*3/uL [facility] Immature granulocytes/100 WBC (Bld) 0.5 % 0.0 - 2.0 % [facility] Interpretation and review of laboratory results Abnormal [facility] Lymphocytes (Bld) [#/Vol] 0.7 10*3/uL Low 1.0 - 4.3 10*3/uL [facility] Lymphocytes/100 WBC (Bld) 9.7 % Low 15.0 - 45.0 % [facility] MCH (RBC) [Entitic mass] 29.3 pg 26.0 - 34.0 pg [facility] MCHC (RBC) [Mass/Vol] 33.1 % 30.5 - 36.0 % [facility] MCV (RBC) [Entitic vol] 88.5 fL 77.0 - 99.0 fL [facility] Monocytes (Bld) [#/Vol] 0.4 10*3/uL 0.0 - 0.9 10*3/uL [facility] Monocytes/100 WBC (Bld) 5.9 % 5.0 - 13.0 % [facility] Neutrophils (Bld) [#/Vol] 6 10*3/uL 1.8 - 7.5 10*3/uL [facility] Neutrophils/100 WBC (Bld) 80.4 % 38.0 - 82.0 % [facility] Nucleated RBC/100 WBC (Bld) [Ratio] 0 % [facility] Platelet mean volume (Bld) [Entitic vol] 9.5 fL 9.0 - 12.7 fL [facility] Platelets (Bld) [#/Vol] 287 10*3/uL 140 - 440 10*3/uL [facility] RBC (Bld) [#/Vol] 3.31 10*6/uL Low 4.40 - 5.9 0 10*6/uL [facility] WBC (Bld) [#/Vol] 7.4 10*3/uL 3.6 - 10.7 10*3/uL [facility] CBC WITH AUTO DIFFERENTIALon 08-13-2024 Basophils (Bld) [#/Vol] 0.0 10*3/uL Normal 0.0-0.2 [facility] Comment on above: Performed By: #### L [id number] ####Digital Press Operator: CARMEL HOWARD ([phone])[facility] ([facility])[address] [place] [address] Basophils/100 WBC (Bld) 0.3 % Normal 0.0-2.0 [facility] Comment on above: Performed By: #### L [id number] ####Digital Press Operator: CARMEL HOWARD ([phone])[place])[address] [place] [address] [place] Eosinophils (Bld) [#/Vol] 0.2 10*3/uL Normal 0.0-0.5 [facility] Comment on above: Performed By: #### L [id number] ####Digital Press Operator: CARMEL HOWARD ([phone])[place])[address] [place] [address] [place] Eosinophils/100 WBC (Bld) 3.2 % Normal 0.0-6.0 [facility] Comment on above: Performed By: #### L [id number] ####Digital Press Operator: CARMEL [id number])[place])[address] [place] [address] Erythrocyte distribution width (RBC) [Ratio] 14.6 % Normal 11.5-15.0 [facility] Comment on above: Performed By: #### L [id number] ####Digital Press Operator: CARMEL HOWARD ([phone])[place])[address] [place] [address] Hematocrit (Bld) [Volume fraction] 29.3 % Low 40.0-52.0 [facility] Comment on above: Performed By: #### L [id number] ####Digital Press Operator: CARMEL HOWARD ([phone])[place])[address] [place] [address] Hemoglobin (Bld) [Mass/Vol] 9.7 g/dL Low 13.0-18.0 [facility] Comment on above: Performed By: #### L [id number] ####Digital Press Operator: CARMEL HOWARD ([id number])[place])[address] [place] [address] IMMATURE GRANS % 0.5 % Normal 0.0-2.0 [facility] Comment on above: Performed By: #### L [id number] ####Digital Press Operator: CARMEL HOWARD ([phone])[place])[address] [place] [address] IMMATURE GRANS ABSOLUTE 0.0 10*3/uL Normal <0.1 [facility] Comment on above: Performed By: #### L [id number] ####Digital Press Operator: CARMEL HOWARD ([phone])[place])[address] [place] [address] Lymphocytes (Bld) [#/Vol] 0.7 10*3/uL Low 1.0-4.3 [facility] Comment on above: Performed By: #### L [id number] ####Digital Press Operator: CARMEL HOWARD ([phone])[place])[address] [place] [address] Lymphocytes/100 WBC (Bld) 9.7 % Low 15.0-45.0 [facility] Comment on above: Performed By: #### L [id number] ####Digital Press Operator: CARMEL OHWARD ([phone])[place])[address] [place] [address] MCH (RBC) [Entitic mass] 29.3 pg Normal 26.0-34.0 [facility] Comment on above: Performed By: #### L [id number] ####Digital Press Operator: CARMEL HOWARD ([phone])[place])[address] [place] [address] MCHC 33.1 % Normal 30.5-36.0 [facility] Comment on above: Performed By: #### L [id number] ####Digital Press Operator: CARMEL HOWARD ([id number])[place])[address] [place] [address] MCV (RBC) [Entitic vol] 88.5 fL Normal 77.0-99.0 [facility] Comment on above: Performed By: #### L [id number] ####Digital Press Operator: CARMEL HOWARD ([phone])[place])[address] [place] [address] Monocytes (Bld) [#/Vol] 0.4 10*3/uL Normal 0.0-0.9 [facility] Comment on above: Performed By: #### L [id number] ####Digital Press Operator: CARMEL HOWARD ([id number])[place])[address] [place] [address] Monocytes/100 WBC (Bld) 5.9 % Normal 5.0-13.0 [facility] Comment on above: Performed By: #### L [id number] ####Digital Press Operator: CARMEL HOWARD ([phone])[place])[address] [place] [address] NEUTROPHILS ABSOLUTE 6.0 10*3/uL Normal 1.8-7.5 [facility] Comment on above: Performed By: #### L [id number] ####Digital Press Operator: CARMEL HOWARD ([phone])[facility] ([facility])[address] [place] [address] Neutrophils/100 WBC (Bld) 80.4 % Normal 38.0-82.0 [facility] Comment on above: Performed By: #### L [id number] ####Digital Press Operator: CARMEL HOWARD ([phone])[facility] ([facility])[address] [place] [address] NRBC 0.0 /100 WBCs Normal 0.0-2.0 [facility] Comment on above: Performed By: #### L [id number] ####Digital Press Operator: CARMEL HOWARD ([phone])[facility] ([facility])[address] [place] [address] Platelet mean volume (Bld) [Entitic vol] 9.5 fL Normal 9.0-12.7 [facility] Comment on above: Performed By: #### L [id number] ####Digital Press Operator: CARMEL HOWARD ([phone])[facility] ([facility])[address] [place] [address] Platelets (Bld) [#/Vol] 287 10*3/uL Normal 140-440 [facility] Comment on above: Performed By: #### L [id number] ####Digital Press Operator: CARMEL HOWARD ([id number])[facility] ([facility])[address] [place] [address] RBC (Bld) [#/Vol] 3.31 10*6/uL Low 4.40-5.90 [facility] Comment on above: Performed By: #### L [id number] ####Digital Press Operator: CARMEL HOWARD ([phone])[facility] ([facility])[address] [place] [address] [place] WBC (Bld) [#/Vol] 7.4 10*3/uL Normal 3.6-10.7 [facility] Comment on above: Performed By: #### L [id number] ####Digital Press Operator: CARMEL HOWARD ([phone])[facility] [place] [address] Nursing Noteon 08-13-2024 Nursing Note Discharge instructio jak reviewed with the patient. Patient verbalized an understanding. Iv was removed from the patient and all personal belongings were sent home with him. Patient was transported home by family. Normal [facility] Progress Noteon 08-13-2024 Progress Note Normal [facility] 30on 08-12-2024 30 Normal [facility] BASIC METABOLIC PANELon 08-03 Anion gap [Moles/Vol] 7 mmol/L Normal 3-13 [facility] Comment on above: Performed By: #### L AB15, [id number] ####Digital Press Operator: CARMEL HOWARD ([id number])[facility] ([facility])[address] [place] [address] Calcium [Mass/Vol] 7.7 mg/dL Low 8.8-10.0 [facility] Comment on above: Performed By: #### L AB15, [id number] ####Digital Press Operator: CARMEL HOWARD ([phone])[facility])[address] [place] [address] Chloride [Moles/Vol] 106 mmol/L Normal 98-107 [facility] Comment on above: Performed By: #### L AB15, [id number] ####Digital Press Operator: CARMEL HOWARD ([phone])[facility] ([facility])[address] [place] [address] CO2 [Moles/Vol] 27 mmol/L Normal 23-31 [facility] Comment on above: Performed By: #### L AB15, [id number] ####Digital Press Operator: CARMEL HOWARD ([phone])[facility] ([facility])[address] [place] [address] Creatinine [Mass/Vol] 0.59 mg/dL Low 0.72-1.25 [facility] Comment on above: Performed By: #### L AB15, [id number] ####Digital Press Operator: CARMEL HOWARD ([phone])[facility] [address] GLOMERULAR FILTRATION RATE ML/MIN/1.73 SQ M.PREDICTED >90.0 Normal >60.0 [facility] Comment on above: Result Comment: Calc ulation based on the Chronic Kidney Disease Epidemiology Collaboration (CKD-EPI) equation refit without adjustment for race Performed By: #### L AB15, [id number] ####Digital Press Operator: CARMEL HOWARD ([id number])[place])[address] [place] [address] Glucose [Mass/Vol] 105 mg/dL Normal 82-115 [facility] Comment on above: Performed By: #### L AB15, [id number] ####Digital Press Operator: CARMEL HOWARD ([phone])[address] Potassium [Moles/Vol] 3.3 mmol/L Low 3.5-5.1 [facility] Comment on above: Result Comment: [facility] potassium values may be up to 0.5 mmol/L lower than serum values. Performed By: #### L AB15, [id number] ####Digital Press Operator: CARMEL HOWARD ([phone])[address] Sodium [Moles/Vol] 140 mmol/L Normal 136-145 [facility] Comment on above: Performed By: #### L AB15, [id number] ####Digital Press Operator: CARMEL HOWARD ([id number])[address] Urea nitrogen [Mass/Vol] 20 mg/dL Normal 9-23 [facility] Comment on above: Performed By: #### L AB15, [id number] ####Digital Press Operator: CARMEL HOWARD ([id number])[address] Basic metabolic 1998 panelon 08-12-2024 Anion gap [Moles/Vol] 7 mmol/L 3 - 13 mmol/L [facility] Calcium [Mass/Vol] 7.7 mg/dL Low 8.8 - 10. 0 mg/dL [facility] Chloride [Moles/Vol] 106 mmol/L 98 - 10 7 mmol/L [facility] CO2 [Moles/Vol] 27 mmol/L 23 - 31 mmol/L [facility] Creatinine [Mass/Vol] 0.59 mg/dL Low 0.72 - 1.25 mg/dL [facility] GFR/1.73 sq M.predicted (S/P/Bld) [Vol rate/Area] - PINF [facility] Comment on above: Calculation based on the Chronic Kidney Disease Epidemiology Collaboration (CKD-EPI) equation refit without adjustment for race Glucose [Mass/Vol] 105 mg/dL 82 - 115 mg/dL [facility] Interpretation and review of laboratory results Abnormal [facility] Potassium [Moles/Vol] 3.3 mmol/L Low 3.5 - 5.1 mmol/L [facility] Comment on above: Plasma potassium shruthi ues may be up to 0.5 mmol/L lower than serum values. Sodium [Moles/Vol] 140 mmol/L 136 - 145 mmol/L [facility] Urea nitrogen [Mass/Vol] 20 mg/dL 9 - 23 mg/dL [facility] CBC W Auto Differential pane l (Bld)on 08-12-2024 Basophils (Bld) [#/Vol] 0 10*3/uL 0.0 - 0.2 10*3/uL [facility] Basophils/100 WBC (Bld) 0.1 % 0.0 - 2.0 % [facility] Eosinophils (Bld) [#/Vol] 0.2 10*3/uL 0.0 - 0.5 10*3/uL [facility] Eosinophils/100 WBC (Bld) 2.4 % 0.0 - 6.0 % [facility] [facility] Erythrocyte distribution width (RBC) [Ratio] 14.7 % 11.5 - 15.0 % [facility] Hematocrit (Bld) [Volume fraction] 29.4 % Low 40.0 - 52.0 % [facility] Hemoglobin (Bld) [Mass/Vol] 9.7 g/dL Low 13.0 - 18.0 g/dL [facility] Immature granulocytes (Bld) [#/Vol] 0 10*3/uL NINF - 0.1 10*3/uL [facility] Immature granulocytes/100 WBC (Bld) 0.5 % 0.0 - 2.0 % [facility] [employer] Interpretation and review of laboratory results Abnormal [facility] Lymphocytes (Bld) [#/Vol] 0.8 10*3/uL Low 1.0 - 4.3 10*3/uL [facility] Lymphocytes/100 WBC (Bld) 8.9 % Low 15.0 - 45.0 % [facility] MCH (RBC) [Entitic mass] 29.4 pg 26.0 - 34.0 pg [facility] MCHC (RBC) [Mass/Vol] 33 % 30.5 - 36.0 % [facility] MCV (RBC) [Entitic vol] 89.1 fL 77.0 - 99.0 fL [facility] Monocytes (Bld) [#/Vol] 0.5 10*3/uL 0.0 - 0.9 10*3/uL [facility] Monocytes/100 WBC (Bld) 6.2 % 5.0 - 13.0 % [facility] Neutrophils (Bld) [#/Vol] 7.2 10*3/uL 1.8 - 7.5 10*3/uL [facility] Neutrophils/100 WBC (Bld) 81.9 % 38.0 - 82.0 % [facility] Nucleated RBC/100 WBC (Bld) [Ratio] 0 % [facility] Platelet mean volume (Bld) [Entitic vol] 9.3 fL 9.0 - 12.7 fL [facility] Platelets (Bld) [#/Vol] 287 10*3/uL 140 - 440 10*3/uL [facility] RBC (Bld) [#/Vol] 3.3 10*6/uL Low 4.40 - 5.9 0 10*6/uL [facility] WBC (Bld) [#/Vol] 8.8 10*3/uL 3.6 - 10.7 10*3/uL [facility] CBC WITH AUTO DIFFERENTIALon 08-12-2024 Basophils (Bld) [#/Vol] 0.0 10*3/uL Normal 0.0-0.2 [facility] Comment on above: Performed By: #### L [id number] ####Digital Press Operator: CARMEL HOWARD ([phone])[facility] ([address] Basophils/100 WBC (Bld) 0.1 % Normal 0.0-2.0 [facility] Comment on above: Performed By: #### L [id number] ####Digital Press Operator: CARMEL HOWARD ([phone])[place])[address] [place] [address] Eosinophils (Bld) [#/Vol] 0.2 10*3/uL Normal 0.0-0.5 [facility] Comment on above: Performed By: #### L [id number] ####Digital Press Operator: CARMEL HOWARD ([phone])[place])[address] [place] [address] Eosinophils/100 WBC (Bld) 2.4 % Normal 0.0-6.0 [facility] Comment on above: Performed By: #### L [id number] ####Digital Press Operator: CARMEL HOWARD ([phone])[place])[address] [place] [address] Erythrocyte distribution width (RBC) [Ratio] 14.7 % Normal 11.5-15.0 [facility] Comment on above: Performed By: #### L [id number] ####Digital Press Operator: CARMEL HOWARD ([phone])[place])[address] [place] [address] Hematocrit (Bld) [Volume fraction] 29.4 % Low 40.0-52.0 [facility] Comment on above: Performed By: #### L [id number] ####Digital Press Operator: CARMEL HOWARD ([phone])[place])[address] [place] [address] Hemoglobin (Bld) [Mass/Vol] 9.7 g/dL Low 13.0-18.0 [facility] Comment on above: Performed By: #### L [id number] ####Digital Press Operator: CARMEL HOWARD ([phone])[place])[address] [place] [address] IMMATURE GRANS % 0.5 % Normal 0.0-2.0 [facility] Comment on above: Performed By: #### L [id number] ####Digital Press Operator: CARMEL HOWARD ([phone])[place])[address] [place] [address] IMMATURE GRANS ABSOLUTE 0.0 10*3/uL Normal <0.1 [facility] Comment on above: Performed By: #### L [id number] ####Digital Press Operator: CARMEL HOWARD ([phone])[place])[address] [place] [address] Lymphocytes (Bld) [#/Vol] 0.8 10*3/uL Low 1.0-4.3 [facility] Comment on above: Performed By: #### L [id number] ####Digital Press Operator: CARMEL HOWARD ([phone])[address] Lymphocytes/100 WBC (Bld) 8.9 % Low 15.0-45.0 [facility] Comment on above: Performed By: #### L [id number] ####Digital Press Operator: CARMEL HOWARD ([phone])[place])[address] [place] [address] MCH (RBC) [Entitic mass] 29.4 pg Normal 26.0-34.0 [facility] Comment on above: Performed By: #### L [id number] ####Digital Press Operator: CARMEL HOWARD ([phone])[address] MCHC 33.0 % Normal 30.5-36.0 [facility] Comment on above: Performed By: #### L [id number] ####Digital Press Operator: CARMEL HOWARD ([phone])[address] MCV (RBC) [Entitic vol] 89.1 fL Normal 77.0-99.0 [facility] Comment on above: Performed By: #### L [id number] ####Digital Press Operator: CARMEL [id number])[facility] ([facility])[address] [place] [address] Monocytes (Bld) [#/Vol] 0.5 10*3/uL Normal 0.0-0.9 [facility] Comment on above: Performed By: #### L [id number] ####Digital Press Operator: CARMEL HOWARD ([phone])[facility] ([facility])[address] [place] [address] Monocytes/100 WBC (Bld) 6.2 % Normal 5.0-13.0 [facility] Comment on above: Performed By: #### L [id number] ####Digital Press Operator: CARMEL HOWARD ([phone])[facility] ([facility])[address] [place] [address] NEUTROPHILS ABSOLUTE 7.2 10*3/uL Normal 1.8-7.5 [facility] Comment on above: Performed By: #### L [id number] ####Digital Press Operator: CARMEL HOWARD ([phone])[facility] ([facility])[address] [place] [address] Neutrophils/100 WBC (Bld) 81.9 % Normal 38.0-82.0 [facility] Comment on above: Performed By: #### L [id number] ####Digital Press Operator: CARMEL HOWARD ([phone])[facility] ([facility])[address] [place] [address] NRBC 0.0 /100 WBCs Normal 0.0-2.0 [facility] Comment on above: Performed By: #### L [id number] ####Digital Press Operator: CARMEL HOWARD ([phone])[facility] ([facility])[address] [place] [address] Platelet mean volume (Bld) [Entitic vol] 9.3 fL Normal 9.0-12.7 [facility] Comment on above: Performed By: #### L [id number] ####Digital Press Operator: CARMEL HOWARD ([phone])[facility] ([facility])[address] [place] [address] [place] Platelets (Bld) [#/Vol] 287 10*3/uL Normal 140-440 [facility] Comment on above: Performed By: #### L [id number] ####Digital Press Operator: CARMEL HOWARD ([phone])[facility] ([facility])[address] [place] [address] RBC (Bld) [#/Vol] 3.30 10*6/uL Low 4.40-5.90 [facility] Comment on above: Performed By: #### L [id number] ####Digital Press Operator: CARMEL HOWARD ([phone])[facility] ([facility])[address] [place] [address] WBC (Bld) [#/Vol] 8.8 10*3/uL Normal 3.6-10.7 [facility] Comment on above: Performed By: #### L [id number] ####Digital Press Operator: CARMEL HOWARD ([phone])[facility] ([facility])[address] [place] [address] CULTURE ANAEROBICon 08-13-19 25 CULTURE ANAEROBIC Normal [facility] Comment on above: Performed By: #### L [id number] ####Digital Press Operator: CARMEL HOWARD ([phone])[facility] ([facility])[address] [place] [address] CULTURE, AEROBIC BACTERIA WI TH GRAM STAINon 08-12-2024 CULTURE, AEROBIC BACTERIA WITH GRAM STAIN Normal [facility] Comment on above: Performed By: #### L [id number] ####Digital Press Operator: CARMEL HOWARD ([phone])[facility] ([facility])[address] [place] [address] Laboratory - Chemistry and C hemistry - challengeon 08-12-2024 Magnesium [Mass/Vol] 2 mg/dL 1.6 - 2 .6 mg/dL [facility] MAGNESIUMon 08-12-2024 Magnesium [Mass/Vol] 2.0 mg/dL Normal 1.6-2.6 [facility] Comment on above: Result Comment: MARTINEZ R COMMENTS:Higher values can be expected in females during menses. Performed By: #### L AB15, [id number] ####Digital Press Operator: CARMEL HOWARD ([phone])[facility] ([facility] [place] [address] Magnesium [Mass/Vol]on 08-12 Interpretation and review of laboratory results Normal [facility] Higher values can be expected in females during menses. [facility] No Panel Informationon 08-12 Technically successf ul uncomplicated left thoracentesis yielding 700 mL of straw colored pleural fluid. Report Dictated on Electronically Signed By: Beto Jackson MD Electronically Signed Date/Time: 08/12/2024 11:29 AM EDT [facility] Patient Name: LAINE GARCIA : 1955 Exam Date/Time: 08/12/2024 09:43 Procedure: US GUIDED THORACENTESIS Ordering Provider: SPANN MARK Reason For Exam: L pleural effusion EXAMINATION: Ultrasound-guided thoracentesis. EXAM DATE & TIME: 08/12/2024 9:43 AM EDT INDICATION: L [...] achieved with 1% lidocaine solution. A 5 Nigerian [place] catheter over its stylette was advanced into [...] reduction in the volume of pleural fluid. [facility] Beto Jackson MD - 08/12/2024 Patient Name: LAINE GARCIA : 1955 Exam Date/Time: 08/12/2024 09:43 Procedure: US GUIDED THORACENTESIS Ordering Provider: SPANN MARK Reason For Exam: L pleural effusion EXAMINATION: Ultrasound-guided thoracentesis. EXAM DATE & TIME: 08/12/2024 9:43 AM EDT INDICATION: L [...] achieved with 1% lidocaine solution. A 5 Nigerian Yueh catheter over its stylette was advanced [...] Electronically Signed Date/Time: 08/12/2024 11:29 AM EDT [facility] Radiology Study observation (narrative) [facility] alth Progress Noteon 08-12-2024 Progress Note Normal [facility] Progress [facility] Normal [facility] Progress Note Normal [facility] US GUIDED THORACENTESISon US GUIDED THORACENTESIS Normal [facility] 30on 08-11-2024 30 Normal [facility] CBC W Auto Differential pane l (Bld)Ordered By: Consuelo Blanton on 08-11-2024 Basophils (Bld) [#/Vol] 0 10*3/uL 0.0 - 0.2 10*3/uL [facility] Basophils/100 WBC (Bld) 0 % 0.0 - 2.0 % [facility] Eosinophils (Bld) [#/Vol] 0 10*3/uL 0.0 - 0.5 10*3/uL [facility] Eosinophils/100 WBC (Bld) 0 % 0.0 - 6.0 % [facility] Erythrocyte distribution width (RBC) [Ratio] 14.6 % 11.5 - 15.0 % [facility] Hematocrit (Bld) [Volume fraction] 30.9 % Low 40.0 - 52.0 % [facility] Hemoglobin (Bld) [Mass/Vol] 10.4 g/dL Low 13.0 - 18.0 g/dL [facility] Immature granulocytes (Bld) [#/Vol] 0.1 10*3/uL High NINF - 0.1 10*3/uL [facility] Immature granulocytes/100 WBC (Bld) 0.6 % 0.0 - 2.0 % [facility] Interpretation and review of laboratory results Abnormal [facility] Lymphocytes (Bld) [#/Vol] 0.4 10*3/uL Low 1.0 - 4.3 10*3/uL [facility] Lymphocytes/100 WBC (Bld) 3 % Low 15.0 - 45.0 % [facility] MCH (RBC) [Entitic mass] 29.5 pg 26.0 - 34.0 pg [facility] MCHC (RBC) [Mass/Vol] 33.7 % 30.5 - 36.0 % [facility] MCV (RBC) [Entitic vol] 87.8 fL 77.0 - 99.0 fL [facility] Monocytes (Bld) [#/Vol] 0.6 10*3/uL 0.0 - 0.9 10*3/uL [facility] Monocytes/100 WBC (Bld) 4.7 % Low 5.0 - 13.0 % [facility] Neutrophils (Bld) [#/Vol] 10.8 10*3/uL High 1.8 - 7.5 10*3/uL [facility] Neutrophils/100 WBC (Bld) 91.7 % High 38.0 - 82.0 % [facility] Nucleated RBC/100 WBC (Bld) [Ratio] 0 % [facility] Platelet mean volume (Bld) [Entitic vol] 9.4 fL 9.0 - 12.7 fL [facility] Platelets (Bld) [#/Vol] 270 10*3/uL 140 - 440 10*3/uL [facility] RBC (Bld) [#/Vol] 3.52 10*6/uL Low 4.40 - 5.9 0 10*6/uL [facility] WBC (Bld) [#/Vol] 11.8 10*3/uL High 3.6 - 10.7 10*3/uL [facility] CBC WITH AUTO DIFFERENTIALon 08-11-2024 Basophils (Bld) [#/Vol] 0.0 10*3/uL Normal 0.0-0.2 [facility] Comment on above: Performed By: #### L [id number] ####Digital Press Operator: CARMEL HOWARD ([phone])[place])[address] [place] [address] Basophils/100 WBC (Bld) 0.0 % Normal 0.0-2.0 [facility] Comment on above: Performed By: #### L [id number] ####Digital Press Operator: CARMEL HOWARD ([phone])[place])[address] [place] [address] Eosinophils (Bld) [#/Vol] 0.0 10*3/uL Normal 0.0-0.5 [facility] Comment on above: Performed By: #### L [id number] ####Digital Press Operator: CARMEL HOWARD ([phone])[place])[address] [place] [address] [place] Eosinophils/100 WBC (Bld) 0.0 % Normal 0.0-6.0 [facility] Comment on above: Performed By: #### L [id number] ####Digital Press Operator: CARMEL HOWARD ([phone])[place])[address] [place] [address] Erythrocyte distribution width (RBC) [Ratio] 14.6 % Normal 11.5-15.0 [facility] Comment on above: Performed By: #### L [id number] ####Digital Press Operator: CARMEL HOWARD ([phone])[place])[address] [place] [address] Hematocrit (Bld) [Volume fraction] 30.9 % Low 40.0-52.0 [facility] Comment on above: Performed By: #### L [id number] ####Digital Press Operator: CARMEL HOWARD ([phone])[place])[address] [place] [address] Hemoglobin (Bld) [Mass/Vol] 10.4 g/dL Low 13.0-18.0 [facility] Comment on above: Performed By: #### L [id number] ####Digital Press Operator: CARMEL HOWARD ([phone])[place])[address] [place] [address] IMMATURE GRANS % 0.6 % Normal 0.0-2.0 [facility] Comment on above: Performed By: #### L [id number] ####Digital Press Operator: CARMEL HOWARD ([phone])[place])[address] [place] [address] IMMATURE GRANS ABSOLUTE 0.1 10*3/uL High <0.1 [facility] Comment on above: Performed By: #### L [id number] ####Digital Press Operator: CARMEL HOWARD ([phone])[address] Lymphocytes (Bld) [#/Vol] 0.4 10*3/uL Low 1.0-4.3 [facility] Comment on above: Performed By: #### L [id number] ####Digital Press Operator: CARMEL HOWARD ([phone])[address] Lymphocytes/100 WBC (Bld) 3.0 % Low 15.0-45.0 [facility] Comment on above: Performed By: #### L [id number] ####Digital Press Operator: CARMEL HOWARD ([phone])[address] MCH (RBC) [Entitic mass] 29.5 pg Normal 26.0-34.0 [facility] Comment on above: Performed By: #### L [id number] ####Digital Press Operator: CARMEL HOWARD ([phone])[address] MCHC 33.7 % Normal 30.5-36.0 [facility] Comment on above: Performed By: #### L [id number] ####Digital Press Operator: CARMEL [id number])[facility])[address] [place] [address] MCV (RBC) [Entitic vol] 87.8 fL Normal 77.0-99.0 [facility] Comment on above: Performed By: #### L [id number] ####Digital Press Operator: CARMEL HOWARD ([phone])[facility] ([facility])[address] [place] [address] Monocytes (Bld) [#/Vol] 0.6 10*3/uL Normal 0.0-0.9 [facility] Comment on above: Performed By: #### L [id number] ####Digital Press Operator: CARMEL HOWARD ([phone])[facility] ([facility])[address] [place] [address] Monocytes/100 WBC (Bld) 4.7 % Low 5.0-13.0 [facility] Comment on above: Performed By: #### L [id number] ####Digital Press Operator: CARMEL HOWARD ([phone])[facility] ([facility])[address] [place] [address] NEUTROPHILS ABSOLUTE 10.8 10*3/uL High 1.8-7.5 [facility] Comment on above: Performed By: #### L [id number] ####Digital Press Operator: CARMEL HOWARD ([phone])[facility] ([facility])[address] [place] [address] Neutrophils/100 WBC (Bld) 91.7 % High 38.0-82.0 [facility] Comment on above: Performed By: #### L [id number] ####Digital Press Operator: CARMEL HOWARD ([phone])[facility] ([facility])[address] [place] [address] NRBC 0.0 /100 WBCs Normal 0.0-2.0 [facility] Comment on above: Performed By: #### L [id number] ####Digital Press Operator: CARMEL HOWARD ([phone])[facility] ([facility])[address] [place] [address] Platelet mean volume (Bld) [Entitic vol] 9.4 fL Normal 9.0-12.7 [facility] Comment on above: Performed By: #### L [id number] ####Digital Press Operator: CARMEL HOWARD ([phone])[facility] ([facility])[address] [place] [address] Platelets (Bld) [#/Vol] 270 10*3/uL Normal 140-440 [facility] Comment on above: Performed By: #### L [id number] ####Digital Press Operator: CARMEL HOWARD ([phone])[facility] ([facility])[address] [place] [address] RBC (Bld) [#/Vol] 3.52 10*6/uL Low 4.40-5.90 [facility] Comment on above: Performed By: #### L [id number] ####Digital Press Operator: CARMEL HOWARD ([phone])[facility] ([facility])[address] [place] [address] WBC (Bld) [#/Vol] 11.8 10*3/uL High 3.6-10.7 [facility] Comment on above: Performed By: #### L [id number] ####Digital Press Operator: CARMEL HOWARD ([phone])[facility] ([facility])[address] [place] [address] COMPREHENSIVE METABOLIC PANE [place] 08-11-2024 Albumin [Mass/Vol] 2.0 g/dL Low 3.4-4.8 [facility] Comment on above: Performed By: #### L [id number] ####Digital Press Operator: CARMEL HOWARD ([phone])[facility] ([facility])[address] [place] [address] ALP [Catalytic activity/Vol] 50 U/L Normal 40-150 [facility] Comment on above: Performed By: #### L AB17 ####Digital Press Operator: CARMEL HOWARD ([phone])[facility] ([facility])[address] [place] [address] ALT [Catalytic activity/Vol] 6 U/L Normal <40 [facility] Comment on above: Performed By: #### L AB17 ####Digital Press Operator: CARMEL HOWARD ([phone])[facility] ([facility])[address] [place] [address] Anion gap [Moles/Vol] 8 mmol/L Normal 3-13 [facility] Comment on above: Performed By: #### L [id number] ####Digital Press Operator: CARMEL HOWARD ([phone])[facility] ([facility])[address] [place] [address] AST [Catalytic activity/Vol] 28 U/L Normal <34 [facility] Comment on above: Performed By: #### L AB17 ####Digital Press Operator: CARMEL HOWARD ([phone])[facility] ([facility])[address] [place] [address] Bilirubin [Mass/Vol] 0.3 mg/dL Normal <1.2 [facility] Comment on above: Performed By: #### L AB17 ####Digital Press Operator: CARMEL HOWARD ([phone])[facility] ([facility])[address] [place] [address] Calcium [Mass/Vol] 7.8 mg/dL Low 8.8-10.0 [facility] Comment on above: Performed By: #### L AB17 ####Digital Press Operator: CARMEL HOWARD ([phone])[facility] ([facility])[address] [place] [address] [place] Chloride [Moles/Vol] 109 mmol/L High 98-107 [facility] Comment on above: Performed By: #### L AB17 ####Digital Press Operator: CARMEL HOWARD ([phone])[facility] ([facility])[address] [place] [address] [place] CO2 [Moles/Vol] 25 mmol/L Normal 23-31 [facility] Comment on above: Performed By: #### L AB17 ####Digital Press Operator: CARMEL HOWARD ([phone])[facility] ([facility])[address] [place] [address] [place] Creatinine [Mass/Vol] 0.65 mg/dL Low 0.72-1.25 [facility] Comment on above: Performed By: #### L AB17 ####Digital Press Operator: CARMEL HOWARD ([phone])[place])[address] [place] [address] GLOMERULAR FILTRATION RATE ML/MIN/1.73 SQ M.PREDICTED >90.0 Normal >60.0 [facility] Comment on above: Result Comment: Calc ulation based on the Chronic Kidney Disease Epidemiology Collaboration (CKD-EPI) equation refit without adjustment for race Performed By: #### L AB17 ####Digital Press Operator: CARMEL HOWARD ([phone])[address] Glucose [Mass/Vol] 150 mg/dL High 82-115 [facility] Comment on above: Performed By: #### L AB17 ####Digital Press Operator: CARMEL HOWARD ([id number])[address] Potassium [Moles/Vol] 3.6 mmol/L Normal 3.5-5.1 [facility] Comment on above: Result Comment: [facility] potassium values may be up to 0.5 mmol/L lower than serum values. Performed By: #### L AB17 ####Digital Press Operator: CARMEL HOWARD ([phone])[address] Protein [Mass/Vol] 4.9 g/dL Low 6.4-8.3 [facility] Comment on above: Performed By: #### L AB17 ####Digital Press Operator: CARMEL HOWARD ([phone])[place])[address] [place] [address] Sodium [Moles/Vol] 142 mmol/L Normal 136-145 [facility] Comment on above: Performed By: #### L AB17 ####Digital Press Operator: CARMEL HOWARD ([phone])[place])[address] [place] [address] Urea nitrogen [Mass/Vol] 21 mg/dL Normal 9-23 [facility] Comment on above: Performed By: #### L AB17 ####Digital Press Operator: CARMEL HOWARD ([phone])[facility] ([facility])[address] [place] [address] CT ABDOMEN PELVIS W CONTRAST on 08-11-2024 CT ABDOMEN PELVIS W CONTRAST Normal [facility] CT Abdomen and Pelvis W cont [...] MD Electronically Signed Date/Time: 08/11/2024 3:28 PM T [facility] [employer] Patient Name: LAINE GARCIA : 1955 [...] on the left which is likely postsurgical. [facility] Isma Glynn MD - 08/11/2024 [facility] Name: [facility] 1955 [id number] Exam Date/Time: 08/11/2024 14:48 Procedure: CT ABDOMEN [...] Electronically Signed Date/Time: 08/11/2024 3:28 PM EDT [facility] Radiology Study observation (narrative) Nell Cecilio alth CT Abdomen and Pelvis W cont rast IVOrdered By: Isma Glynn on 08-11-2024 [employer] Work Phone: Comprehensive metabolic 1998 panelon 08-11-2024 Albumin [Mass/Vol] 2 g/dL Low 3.4 - 4.8 g/dL [facility] ALP [Catalytic activity/Vol] 50 U/L 40 - 150 U/L [facility] ALT [Catalytic activity/Vol] 6 U[facility] Anion gap [Moles/Vol] 8 mmol/L 3 - 13 mmol/L [facility] AST [Catalytic activity/Vol] 28 U/L [facility]/L [facility] Bilirubin [Mass/Vol] 0.3 mg/dL NINF - 1.2 mg/dL [facility] [place] Calcium [Mass/Vol] 7.8 mg/dL Low 8.8 - 10. 0 mg/dL [facility] [place] Chloride [Moles/Vol] 109 mmol/L High 98 - 10 7 mmol/L [facility] [place] CO2 [Moles/Vol] 25 mmol/L 23 - 31 mmol/L [facility] [place] Creatinine [Mass/Vol] 0.65 mg/dL Low 0.72 - 1.25 mg/dL [facility] [place] GFR/1.73 sq M.predicted (S/P/Bld) [Vol rate/Area] - PINF [facility] [place] Comment on above: Calculation based on the Chronic Kidney Disease Epidemiology Collaboration (CKD-EPI) equation refit without adjustment for race Glucose [Mass/Vol] 150 mg/dL High 82 - 115 mg/dL [facility] [place] Interpretation and review of laboratory results Abnormal [facility] [place] Potassium [Moles/Vol] 3.6 mmol/L 3.5 - 5.1 mmol/L [facility] [place] Comment on above: Plasma potassium shruthi ues may be up to 0.5 mmol/L lower than serum values. Protein [Mass/Vol] 4.9 g/dL Low 6.4 - 8.3 g/dL [facility] [place] Sodium [Moles/Vol] 142 mmol/L 136 - 145 mmol/L [facility] [place] Urea nitrogen [Mass/Vol] 21 mg/dL 9 - 23 mg/dL [facility] Progress Noteon 08-11-2024 Progress Note Nutrition rescreen completed. Patient referred to the Dietitian. Patient is NPO > 3 days. Sammi Oneil, DT Normal [facility] System [facility] Progress Note Normal [facility] XR Abdomen and RF Gastrointe stinal tract upper W contrast Jona 08-11-2024 Limited Gastrografin upper GI demonstrates a blush of contrast inferior to gastric fundus which may represent extravasation. The differential includes artifact related to peristalsis. Patent duodenal stent. CTR: Dr. aZra Spann. Report Dictated on Electronically Signed By: Jose D Núñez MD Electronically Signed Date/Time: 08/11/2024 11:35 AM EDT [facility] Patient Name: LAINE GARCIA : [...] fundus. Extravasation of contrast cannot be excluded. [facility] Jose D Núñez MD - 08/11/2024 Patient [...] Electronically Signed Date/Time: 08/11/2024 11:35 AM EDT [facility] Radiology Study observation (narrative) [facility] [id number] 08-10-2024 [id number] Normal [facility] [id number] Normal [facility] Anesthesia Noteon 08-10-2024 Anesthesia Note Normal [facility] Anesthesia Note Normal [facility] Anesthesia Note Normal [facility] BASIC METABOLIC PANELon 05-0 Anion gap [Moles/Vol] 7 mmol/L Normal 3-13 [facility] Comment on above: Performed By: #### L [id number], [id number] ####Digital Press Operator: CARMEL HOWARD ([phone])[address] Calcium [Mass/Vol] 7.7 mg/dL Low 8.8-10.0 [facility] Comment on above: Performed By: #### L [id number], LAB15 ####Digital Press Operator: CARMEL HOWARD ([phone])[facility] ([facility])[address] [place] [address] [place] Chloride [Moles/Vol] 108 mmol/L High 98-107 [facility] Comment on above: Performed By: #### L AB103, LAB15 ####Digital Press Operator: CARMEL HOWARD ([phone])[facility] ([facility])[address] [place] [address] [place] CO2 [Moles/Vol] 24 mmol/L Normal 23-31 [facility] Comment on above: Performed By: #### L 103, LAB15 ####Digital Press Operator: CARMEL HOWARD ([phone])[facility] [place] [address] Creatinine [Mass/Vol] 0.62 mg/dL Low 0.72-1.25 [facility] Comment on above: Performed By: #### L AB103, LAB15 ####Digital Press Operator: CARMEL HOWARD ([phone])[facility] [place] [address] GLOMERULAR FILTRATION RATE ML/MIN/1.73 SQ M.PREDICTED >90.0 Normal >60.0 [facility] Comment on above: Result Comment: Calc ulation based on the Chronic Kidney Disease Epidemiology Collaboration (CKD-EPI) equation refit without adjustment for race Performed By: #### Lily MCGREGOR, LAB15 ####Digital Press Operator: CARMEL HOWARD ([phone])[facility] [place] [address] [place] Glucose [Mass/Vol] 146 mg/dL High 82-115 [facility] Comment on above: Performed By: #### L 103, LAB15 ####Digital Press Operator: CARMEL HOWARD ([phone])[facility] [place] [address] [place] Potassium [Moles/Vol] 3.5 mmol/L Normal 3.5-5.1 [facility] Comment on above: Result Comment: [facility] potassium values may be up to 0.5 mmol/L lower than serum values. Performed By: #### L AB103, LAB15 ####Digital Press Operator: CARMEL HOWARD ([phone])[facility] [place] [address] [place] Sodium [Moles/Vol] 139 mmol/L Normal 136-145 [facility] Comment on above: Performed By: #### L AB103, LAB15 ####Digital Press Operator: CARMEL [phone])[facility] ([facility])[address] [place] [address] Urea nitrogen [Mass/Vol] 13 mg/dL Normal 9-23 [facility] [place] [facility] Comment on above: Performed By: #### L AB103, LAB15 ####Digital Press Operator: CARMEL HOWARD ([phone])[facility] [place] [address] Basic metabolic 1998 panelon 08-10-2024 Anion gap [Moles/Vol] 7 mmol/L 3 - 13 mmol/L [facility] [place] Calcium [Mass/Vol] 7.7 mg/dL Low 8.8 - 10. 0 mg/dL [facility] [place] Chloride [Moles/Vol] 108 mmol/L High 98 - 10 7 mmol/L [facility] [place] CO2 [Moles/Vol] 24 mmol/L 23 - 31 mmol/L [facility] [place] Creatinine [Mass/Vol] 0.62 mg/dL Low 0.72 - 1.25 mg/dL [facility] [place] GFR/1.73 sq M.predicted (S/P/Bld) [Vol rate/Area] - PINF [facility] [place] Comment on above: Calculation based on the Chronic Kidney Disease Epidemiology Collaboration (CKD-EPI) equation refit without adjustment for race Glucose [Mass/Vol] 146 mg/dL High 82 - 115 mg/dL [facility] [place] Interpretation and review of laboratory results Abnormal [facility] [place] Potassium [Moles/Vol] 3.5 mmol/L 3.5 - 5.1 mmol/L [facility] [place] Comment on above: Plasma potassium shruthi ues may be up to 0.5 mmol/L lower than serum values. Sodium [Moles/Vol] 139 mmol/L 136 - 145 mmol/L [facility] [place] Urea nitrogen [Mass/Vol] 13 mg/dL 9 - 23 mg/dL [facility] CBC W Auto Differential pane l (Bld)Ordered By: Isela Campbell on 08-10-2024 Erythrocyte distribution width (RBC) [Ratio] 14.6 % 11.5 - 15.0 % [facility] [place] Hematocrit (Bld) [Volume fraction] 30.3 % Low 40.0 - 52.0 % [facility] [place] Hemoglobin (Bld) [Mass/Vol] 10.1 g/dL Low 13.0 - 18.0 g/dL [facility] [place] Interpretation and review of laboratory results Abnormal [facility] [place] MCH (RBC) [Entitic mass] 29.3 pg 26.0 - 34.0 pg [facility] [place] MCHC (RBC) [Mass/Vol] 33.3 % 30.5 - 36.0 % [facility] [place] MCV (RBC) [Entitic vol] 87.8 fL 77.0 - 99.0 fL [facility] [place] Platelet mean volume (Bld) [Entitic vol] 9.5 fL 9.0 - 12.7 fL [facility] [place] Platelets (Bld) [#/Vol] 228 10*3/uL 140 - 440 10*3/uL [facility] [place] RBC (Bld) [#/Vol] 3.45 10*6/uL Low 4.40 - 5.9 0 10*6/uL [facility] [place] WBC (Bld) [#/Vol] 11.4 10*3/uL High 3.6 - 10.7 10*3/uL [facility] CBC WITH AUTO DIFFERENTIALon 08-10-2024 Erythrocyte distribution width (RBC) [Ratio] 14.6 % Normal 11.5-15.0 [facility] Comment on above: Performed By: #### L [id number], [id number] ####Digital Press Operator: CARMEL HOWARD ([phone])[address] Hematocrit (Bld) [Volume fraction] 30.3 % Low 40.0-52.0 [facility] Comment on above: Performed By: #### L [id number], [id number] ####Digital Press Operator: CARMEL HOWARD ([phone])[address] Hemoglobin (Bld) [Mass/Vol] 10.1 g/dL Low 13.0-18.0 [facility] Comment on above: Performed By: #### L [id number], [id number] ####Digital Press Operator: CARMEL HOWARD ([phone])[place])[address] [place] [address] MCH (RBC) [Entitic mass] 29.3 pg Normal 26.0-34.0 [facility] Comment on above: Performed By: #### L [id number], [id number] ####Digital Press Operator: CARMEL HOWARD ([phone])[place])[address] [place] [address] MCHC 33.3 % Normal 30.5-36.0 [facility] Comment on above: Performed By: #### L [id number], [id number] ####Digital Press Operator: CARMEL HOWARD ([phone])[facility] ([facility])[address] [place] [address] MCV (RBC) [Entitic vol] 87.8 fL Normal 77.0-99.0 [facility] Comment on above: Performed By: #### L [id number], [id number] ####Digital Press Operator: CARMEL HOWARD ([phone])[place])[address] [place] [address] Platelet mean volume (Bld) [Entitic vol] 9.5 fL Normal 9.0-12.7 [facility] Comment on above: Performed By: #### Lily [id number], [id number] ####Digital Press Operator: CARMEL HOWARD ([phone])[place])[address] [place] [address] Platelets (Bld) [#/Vol] 228 10*3/uL Normal 140-440 [facility] Comment on above: Performed By: #### Lily [id number], [id number] ####Digital Press Operator: CARMEL HOWARD ([phone])[place])[address] [place] [address] RBC (Bld) [#/Vol] 3.45 10*6/uL Low 4.40-5.90 [facility] Comment on above: Performed By: #### L [id number], [id number] ####Digital Press Operator: CARMEL HOWARD ([phone])[place])[address] [place] [address] WBC (Bld) [#/Vol] 11.4 10*3/uL High 3.6-10.7 [facility] Comment on above: Performed By: #### L [id number], [id number] ####Digital Press Operator: CARMEL HOWARD ([phone])[facility] ([facility])[address] [place] [address] CT ABDOMEN PELVIS WO IV CONT RASTon 08-10-2024 CT ABDOMEN PELVIS WO IV CONTRAST Normal [facility] CT Abdomen and Pelvis WO con traston 08-10-2024 Enteric contrast extravasation in the left upper quadrant through a defect in the posterior wall of the gastric fundus. Report Dictated on Electronically Signed By: Damien Aguiar MD Electronically Signed Date/Time: 08/10/2024 12:34 PM EDT [facility] Patient Name: LAINE GARCIA : 1955 [...] edema is present. No destructive bone lesions. [facility] [place] [employer] [facility] Damien Aguiar M D - 08/10/2024 [facility] Name: [facility] : 1955 [id number] Exam Date/Time: 08/10/2024 11:17 Procedure: CT ABDOMEN [...] Electronically Signed Date/Time: 08/10/2024 12:34 PM EDT [facility] [place] Radiology Study observation (narrative) [facility] alth CT Abdomen and Pelvis WO con trastOrdered By: Damien Aguiar on 08-10-2024 [facility] [employer] Work Phone: ECG 12-LEADon 08-10-2024 ECG 12-LEAD IMPRESSION: Sinus rhythm Minimal ST depression, lateral leads Electronically Signed On 08-10-2024 00:13:40 EDT by Etienne Hardin Normal [facility] Laboratory - Chemistry and C hemistry - challengeon 08-10-2024 Magnesium [Mass/Vol] 1.8 mg/dL 1.6 - 2 .6 mg/dL [facility] [place] Laboratory - Hematology and Cell countson 08-10-2024 Band form neutrophils (Bld) [#/Vol] 0.6 10*3/uL High NINF - 0.0 10*3/uL [facility] [place] Band form neutrophils/100 WBC (Bld) 5 % High NINF - 0 % [facility] [place] Basophils (Bld) [#/Vol] 0.1 10*3/uL 0.0 - 0.2 10*3/uL [facility] [place] Basophils/100 WBC (Bld) 1 % 0 - 2 % [facility] Lilly cells LM Ql (Bld) Slight Abnormal (none) [facility] Lymphocytes (Bld) [#/Vol] 0.1 10*3/uL Low 1.0 - 4.3 10*3/uL [facility] [place] Lymphocytes/100 WBC (Bld) 1 % Low 15 - 45 % [facility] [place] Monocytes (Bld) [#/Vol] 0.5 10*3/uL 0.0 - 0.9 10*3/uL [facility] [place] Monocytes/100 WBC (Bld) 4 % Low 5 - 13 % [place] Myelocytes (Bld) [#/Vol] 0.1 10*3/uL High NINF - 0.0 10*3/uL [facility] [place] Myelocytes/100 WBC (Bld) 1 % High NINF - 0 % [facility] [place] Neutrophils (Bld) [#/Vol] 10.6 10*3/uL High 1.8 - 7.5 10*3/uL [facility] [place] Ovalocytes LM Ql (Bld) Slight Abnormal (none) [facility] Poikilocytosis LM Ql (Bld) Slight Abnormal (none) [facility] RBC morphology finding Nom (Bld) abnormal [facility] [place] Segmented neutrophils/100 WBC (Bld) 88 % High 38 - 82 % [facility] [place] MAGNESIUMon 08-10-2024 Magnesium [Mass/Vol] 1.8 mg/dL Normal 1.6-2.6 [facility] Comment on above: Result Comment: MARTINEZ Veliz COMMENTS:Higher values can be expected in females during menses. Performed By: #### L AB103, LAB15 ####Digital Press Operator: CARMEL HOWARD ([phone])[facility] [place] [address] [place] MANUAL DIFFERENTIAL (CELLAVI GRACIELA)on 08-10-2024 BAND NEUTROPHILS TOTAL PER COUNTED LEUKOCYTES BY MANUAL COUNT 5 Normal [facility] Comment on above: Performed By: #### L [id number], [id number] ####Digital Press Operator: CARMEL HOWARD ([phone])[facility] ([facility])[address] [place] [address] [place] BANDS (10*3/UL) IN BLOOD-CELLAVISION 0.6 10*3/uL High <=0.0 [facility] Comment on above: Performed By: #### L [id number], [id number] ####Digital Press Operator: CARMEL HOWARD ([phone])[facility] ([facility])[address] [place] [address] [place] BASOPHILS (10*3/UL) IN BLOOD-CELLAVISION 0.1 10*3/uL Normal 0.0-0.2 [facility] Comment on above: Performed By: #### L [id number], [id number] ####Digital Press Operator: CARMEL HOWARD ([phone])[facility] ([facility])[address] [place] [address] [place] BASOPHILS TOTAL PER COUNTED LEUKOCYTES BY MANUAL COUNT 1 Normal [facility] Comment on above: Performed By: #### L [id number], [id number] ####Digital Press Operator: CARMEL HOWARD ([phone])[facility] ([facility])[address] [place] [address] [place] BASOPHILS/100 LEUKOCYTES IN BLOOD-CELLAVISION 1 % Normal 0-2 [facility] Comment on above: Performed By: #### L [id number], [id number] ####Digital Press Operator: CARMEL HOWARD ([phone])[place])[address] [place] [address] [place] BLASTS TOTAL PER COUNTED LEUKOCYTES BY MANUAL COUNT Normal [facility] Comment on above: Performed By: #### L [id number], [id number] ####Digital Press Operator: CARMEL HOWARD ([phone])[facility] ([facility])[address] [place] [address] [place] LILLY CELLS PRESENCE IN BLOOD BY LIGHT MICROSCOPY Slight Abnormal (none) [facility] Comment on above: Performed By: #### L [id number], [id number] ####Digital Press Operator: CARMEL HOWARD ([phone])[facility] [place] [address] [place] EOSINOPHILS TOTAL PER COUNTED LEUKOCYTES BY MANUAL COUNT Normal [facility] Comment on above: Performed By: #### L [id number], [id number] ####Digital Press Operator: CARMEL HOWARD ([phone])[facility] ([facility])[address] [place] [address] [place] LYMPHOCYTES (10*3/UL) IN BLOOD-CELLAVISION 0.1 10*3/uL Low 1.0-4.3 [facility] Comment on above: Performed By: #### L [id number], [id number] ####Digital Press Operator: CARMEL HOWARD ([phone])[facility] [place] [address] [place] LYMPHOCYTES TOTAL PER COUNTED LEUKOCYTES BY MANUAL COUNT 1 Normal [facility] Comment on above: Performed By: #### L [id number], [id number] ####Digital Press Operator: CARMEL HOWARD ([phone])[facility] ([facility])[address] [place] [address] [place] LYMPHOCYTES/100 LEUKOCYTES IN BLOOD-CELLAVISION 1 % Low 15-45 [facility] Comment on above: Performed By: #### L [id number], [id number] ####Digital Press Operator: CARMEL HOWARD ([phone])[facility] ([facility])[address] [place] [address] [place] METAMYELOCYTES TOTAL PER COUNTED LEUKOCYTES BY MANUAL COUNT [facility] Comment on above: Performed By: #### L [id number], [id number] ####Digital Press Operator: CARMEL HOWARD ([phone])[facility] [place] [address] [place] MONOCYTES (10*3/UL) IN BLOOD-CELLAVISION 0.5 10*3/uL Normal 0.0-0.9 [facility] Comment on above: Performed By: #### Lily [id number], [id number] ####Digital Press Operator: CARMEL HOWARD ([phone])[facility] [place] [address] [place] MONOCYTES TOTAL PER COUNTED LEUKOCYTES BY MANUAL COUNT 4 Normal [facility] Comment on above: Performed By: #### Lily [id number], [id number] ####Digital Press Operator: CARMEL HOWARD ([phone])[facility])[address] [place] [address] [place] MONOCYTES/100 LEUKOCYTES IN BLOOD-ARIAS 4 % Low 5-13 [facility] Comment on above: Performed By: #### Lily [id number], [id number] ####Digital Press Operator: CARMEL HOWARD ([phone])[facility])[address] [place] [address] [place] MYELOCYTES (10*3/UL) IN BLOOD-CELLAVISION 0.1 10*3/uL High <=0.0 [facility] Comment on above: Performed By: #### Lily [id number], [id number] ####Digital Press Operator: CARMEL HOWARD ([phone])[facility] ([facility])[address] [place] [address] [place] MYELOCYTES COUNTED BY MANUAL COUNT 1 Normal [facility] Comment on above: Performed By: #### Lily [id number], [id number] ####Digital Press Operator: CARMEL HOWARD ([phone])[facility])[address] [place] [address] [place] MYELOCYTES/100 LEUKOCYTES IN BLOOD-CELLAVISION 1 % High <=0 [facility] Comment on above: Performed By: #### L [id number], [id number] ####Digital Press Operator: CARMEL HOWARD ([phone])[facility] ([facility])[address] [place] [address] [place] NEUTROPHILS BAND FORM/100 LEUKOCYTES IN BLOOD-CELLAVISI 5 % High <=0 [facility] Comment on above: Performed By: #### L [id number], [id number] ####Digital Press Operator: CARMEL HOWARD ([phone])[facility] ([facility])[address] [place] [address] [place] NEUTROPHILS TOTAL PER COUNTED LEUKOCYTES BY MANUAL COUNT 90 Normal [facility] Comment on above: Performed By: #### L [id number], [id number] ####Digital Press Operator: CARMEL HOWARD ([phone])[facility] ([facility])[address] [place] [address] OVALOCYTES PRESENCE IN BLOOD BY LIGHT MICROSCOPY Slight Abnormal (none) [facility] Comment on above: Performed By: #### L [id number], [id number] ####Digital Press Operator: CARMEL HOWARD ([phone])[facility] ([facility])[address] [place] [address] POIKILOCYTOSIS (PRESENCE) IN BLOOD BY LIGHT MICROSCOPY Slight Abnormal (none) [facility] Comment on above: Performed By: #### L [id number], [id number] ####Digital Press Operator: CARMEL HOWARD ([phone])[facility] ([facility])[address] [place] [address] PROMYELOCYTES TOTAL PER COUNTED LEUKOCYTES BY MANUAL COUNT Normal [facility] Comment on above: Performed By: #### L [id number], [id number] ####Digital Press Operator: CARMEL HOWARD ([phone])[facility] ([facility])[address] [place] [address] [place] RBC MORPHOLOGY IN BLOOD abnormal Normal [facility] Comment on above: Performed By: #### L [id number], [id number] ####Digital Press Operator: CARMEL HOWARD ([phone])[place])[address] [place] [address] [place] SEGMENTED NEUTROPHILS (10*3/UL) IN BLOOD-CELLAVISION 10.6 10*3/uL High 1.8-7.5 [facility] Comment on above: Performed By: #### L [id number], [id number] ####Digital Press Operator: CARMEL HOWADR ([phone])[facility] [place] [address] SEGMENTED NEUTROPHILS/100 LEUKOCYTES-CE 88 % High 38-82 [facility] Comment on above: Performed By: #### L [id number], [id number] ####Digital Press Operator: CARMEL HOWARD ([phone])[facility] ([facility])[address] [place] [address] UNCLASSIFIED CELLS TOTAL PER COUNTED LEUKOCYTES BY MANUAL COUNT Normal [facility] Comment on above: Performed By: #### L [id number], [id number] ####Digital Press Operator: CARMEL HOWARD ([phone])[facility] ([facility])[address] [place] [address] VARIANT LYMPHOCYTES TOTAL PER COUNTED LEUKOCYTES BY MANUAL COUNT Normal [facility] Comment on above: Performed By: #### L [id number], [id number] ####Digital Press Operator: CARMEL HOWARD ([phone])[facility] [place] [address] Magnesium [Mass/Vol]on 08-10 Interpretation and review of laboratory results Normal [facility] Higher values can be expected in females during menses. [facility] No Panel Informationon 08-10 Atypical Lymphocytes Manual [facility] Bands Manual 5 [facility] Basophils Manual 1 [facility] alth Blasts Manual [facility]alt h Eosinophils Manual [facility] Interpretation and review of laboratory results Abnormal [facility] Lymphocytes Manual 1 [facility] Metamyelocytes Manual [facility] Monocytes Manual 4 [facility] alth Myelocytes Manual 1 [facility] ealth Neutrophils Manual 90 [facility] Promyelocytes Manual [facility] Unclassified Cells, Manual [facility] Sinus rhythm Minimal ST depression, lateral leads Electronically Signed On 08-10-2024 00:13:40 EDT by Etienne Hardin CV Etienne Paul MD - 08/10/2024 IMPRESSION: Sinus rhythm Minimal ST depression, lateral leads Electronically Signed On 08-10-2024 00:13:40 EDT by Etienne Hardin [facility] No Panel InformationOrdered By: Etienne Hardin on 08-10-2024 P [place] 50 degrees [facility] Phone: DC Interval 142 ms [facility] Phone: QRS [place] -9 degrees [facility] Phone: QRSD Interval 104 ms [facility] Work Phone: QT Interval 374 ms [facility] [employer] Phone: [employer] Interval 437 ms [facility] Phone: [employer] [place] 34 degrees [facility] Phone: [facility] Phone: Nursing Noteon 08-10-2024 Nursing Note Report called to H5. Normal [facility] Op Noteon 08-10-2024 Op Note Normal [facility] Progress Noteon 08-10-2024 Progress Note Correction. Probable extravasation of contrast. Normal [facility] Progress Note Normal [facility] Vital signsOrdered By: Deepak Hardin on 08-10-2024 Heart rate 82 /min bpm [facility] [employer] Phone: XR Abdomen and RF Gastrointe stinal tract upper W contrast Jona 08-10-2024 Evidence of extravasation of contrast in the left abdomen collecting beneath the left hemidiaphragm, with reasonable correlation to cross-sectional imaging findings. Patent duodenal stent. CTR: Dr. Zara Spann Report Dictated on Electronically Signed By: Jose D Núñez MD Electronically Signed Date/Time: 08/10/2024 11:42 AM [facility] EMERGENCY DEPARTMENT [employer] Patient Name: LAINE GARCIA : 1955 [...] correlation to findings on recent CT 08/09/2024. [facility] Jose D Núñez MD - 08/10/2024 Patient [...] Electronically Signed Date/Time: 08/10/2024 11:42 AM EDT [facility] Radiology Study observation (narrative) [facility] He alth XR Abdomen and RF Gastrointe stinal tract upper W contrast POOrdered By: Jose D Núñez on 08-10-2024 [facility] [employer] Phone: ABO and Rh group Confirm Nom (Bld)on 08-09-2024 ABO group Nom (Bld) O [facility] [employer] D Ag Ql (RBC) Positive [facility]alt [facility] APTTon 08-09-2024 aPTT Coag (Bld) [Time] 30.9 s High 20.0-30.5 [facility] Comment on above: Result Comment: MARTINEZ Veliz COMMENTS:NOTE: The therapeutic time for Heparin anticoagulation, based on Xa activity inhibition, is an APTT of 46-80 seconds. Performed By: #### L AB325, [id number] ####Digital Press Operator: CARMEL HOWARD ([phone])[facility] ([id number] Abdomen/Pelvis without Conto n 08-09-2024 Abdomen/Pelvis without Cont [facility] Imaging Services [address] [place] [address] Abdomen/Pelvis without Cont MR#: [id number] Acct: [id number] Name: LAINE GARCIA Rep #: [id number] : 1955 M 69 From: Zara Rodrigues MD PCP: Dr. Dante Gurrola MD Status: ADM IN Study: Abdomen/Pelvis without Cont Date of Exam: 10/27 Exam# [id number] Ordering Dr: Brandie Spears DO PROCEDURE: ABDOMEN/PELVIS [...] Lymph nodes: Unremarkable. Vasculature: Mild atherosclerosis. Peritoneum: Tiqsn-fy-foapybht volume ill-defined free fluid and air in [...] 4. Additional description as above. Reading Location: [id number] CC: Dr. Dante Gurrola MD; Dr. Brandie Spears DO [employer] Underwriter: Signed Normal [facility] Absolute lymphocyte countOrd ered By: Brandie Spears on 08-09-2024 Lymphocytes Auto (Unsp spec) [#/Vol] 0.67 10*3/uL Low 0.83-4.51 [facility] Absolute neutrophil countOrd ered By: Brandie Spears on 08-09-2024 Neutrophils (Bld) [#/Vol] 10.6 10*3/uL High 2.0-7.7 [facility] Anesthesia Noteon 08-09-2024 Anesthesia Note Normal [facility] Anion gap in Serum or Plasma Ordered By: Brandie Spears on 08-09-2024 Anion gap [Moles/Vol] 9 mmol/L 5-15 [facility] Automated lymphocyte count a s percentage of total leukocytesOrdered By: Brandie Spears on 08-09-2024 Lymphocytes/100 WBC Auto (Unsp spec) 5.5 % Low 19-41 [facility] BLOOD TYPE AND SCREEN GELon 08-09-2024 ABO GROUPING O Normal [facility] Comment on above: Performed By: #### L [id number] ####Digital Press Operator: CARMEL HOWARD ([phone])[facility] ([facility])[address] [place] [address] RH TYPE IN BLOOD Positive Normal [facility] Comment on above: Performed By: #### L AB276 ####Digital Press Operator: CARMEL HOWARD ([phone])[facility] ([facility])[address] [place] [address] BUN/creatinine ratioOrdered By: Brandie Spears on 08-09-2024 Urea nitrogen/Creatinine [Mass ratio] 31.8 mg/mg High 01-22 [facility] Basic Metabolic Profile (BMP )on 08-09-2024 BUN/CRE 31.8 RATIO High 01-22 [facility] Comment on above: Performed By: #### L 500.4050, L100.0100 #### [facility] [place], [address] Calcium [Mass/Vol] 7.7 mg/dL Normal 7.6-11.0 [facility] Comment on above: Performed By: #### L 500.4050, L100.0100 #### [facility] [address] [place], [address] Chloride [Moles/Vol] 106 mmol/L Normal 98-108 [facility] Comment on above: Performed By: #### L 500.4050, L100.0100 #### [facility] [address] [place], [address] CO2 [Moles/Vol] 24.4 mmol/L Normal 21.0-32.0 [facility] Comment on above: Performed By: #### L 500.4050, L100.0100 #### [facility] [address] [place], [address] Creatinine [Mass/Vol] 0.51 mg/dL Low 0.70-1.20 [facility] Comment on above: Performed By: #### L 500.4050, L100.0100 #### [facility] [address] [place], [address] ECRCL 88.72 ml/min Normal 50-250 [facility] Comment on above: Performed By: #### L 500.4050, L100.0100 #### [facility] [address] [place], [address] GAP 9 Normal 5-15 [facility] Comment on above: Performed By: #### L 500.4050, L100.0100 #### [facility] [address] [place], [address] GFR/1.73 sq M.predicted among non-blacks MDRD (S/P/Bld) [Vol rate/Area] 109 mL/min/{1.73_m2} Normal >60 [facility] Comment on above: Result Comment: mL/m in/1.73m2 CKD-EPI Creatinine Equation (2020) Performed By: #### L 500.4050, L100.0100 #### [facility] [address] [place], [address] Glucose [Mass/Vol] 116 mg/dL High 70-99 [facility] Comment on above: Performed By: #### L 500.4050, L100.0100 #### [facility] [address] [place], [address] Potassium [Moles/Vol] 3.2 mmol/L Low 3.3-5.1 [facility] Comment on above: Performed By: #### L 500.4050, L100.0100 #### [facility] [address] [place], [address] Sodium [Moles/Vol] 139 mmol/L Normal 133-145 [facility] Comment on above: Performed By: #### L 500.4050, L100.0100 #### [facility] [address] [place], [address] Urea nitrogen [Mass/Vol] 16 mg/dL Normal 4-19 [facility] Comment on above: Performed By: #### L 500.4050, L100.0100 #### [facility] [address] [place], [address] Basophil percentageOrdered B y: Brandie Spears on 08-09-2024 Basophils/100 WBC (Bld) 0.2 % 0-1 W [facility] Blood type and Crossmatch pa arlene (Bld)on 08-09-2024 ABO group Nom (Bld) O [facility] Blood group antibody screen GEL Ql Negative [facility] [employer] D Ag Ql (RBC) Positive [facility] CBC W Auto Differential pane l (Bld)Ordered By: Ivy Fields on 08-09-2024 Basophils (Bld) [#/Vol] 0 10*3/uL 0.0 - 0.2 10*3/uL [facility] Basophils/100 WBC (Bld) 0.2 % 0.0 - 2.0 % [facility] Eosinophils (Bld) [#/Vol] 0.1 10*3/uL 0.0 - 0.5 10*3/uL [facility] Eosinophils/100 WBC (Bld) 0.6 % 0.0 - 6.0 % [facility] Erythrocyte distribution width (RBC) [Ratio] 14.7 % 11.5 - 15.0 % [facility] Hematocrit (Bld) [Volume fraction] 29.6 % Low 40.0 - 52.0 % [facility] Hemoglobin (Bld) [Mass/Vol] 10.2 g/dL Low 13.0 - 18.0 g/dL [facility] Immature granulocytes (Bld) [#/Vol] 0.1 10*3/uL High NINF - 0.1 10*3/uL [facility] Immature granulocytes/100 WBC (Bld) 0.5 % 0.0 - 2.0 % [facility] Interpretation and review of laboratory results Abnormal [facility] Lymphocytes (Bld) [#/Vol] 0.5 10*3/uL Low 1.0 - 4.3 10*3/uL [facility] Lymphocytes/100 WBC (Bld) 5.5 % Low 15.0 - 45.0 % [facility] MCH (RBC) [Entitic mass] 30 pg 26.0 - 34.0 pg [facility] MCHC (RBC) [Mass/Vol] 34.5 % 30.5 - 36.0 % [facility] MCV (RBC) [Entitic vol] 87.1 fL 77.0 - 99.0 fL [facility] Monocytes (Bld) [#/Vol] 0.6 10*3/uL 0.0 - 0.9 10*3/uL [facility] Monocytes/100 WBC (Bld) 6 % 5.0 - 13.0 % [facility] Neutrophils (Bld) [#/Vol] 8.6 10*3/uL High 1.8 - 7.5 10*3/uL [facility] Neutrophils/100 WBC (Bld) 87.2 % High 38.0 - 82.0 % [facility] Nucleated RBC/100 WBC (Bld) [Ratio] 0 % [facility] Platelet mean volume (Bld) [Entitic vol] 9.4 fL 9.0 - 12.7 fL [facility] Platelets (Bld) [#/Vol] 207 10*3/uL 140 - 440 10*3/uL [facility] RBC (Bld) [#/Vol] 3.4 10*6/uL Low 4.40 - 5.9 0 10*6/uL [facility] WBC (Bld) [#/Vol] 9.9 10*3/uL 3.6 - 10.7 10*3/uL [facility] CBC W/Diff, Automatedon 05-0 7-2024 Absolute Lymph 0.67 X10 3/uL Low 0.83-4.51 [facility] Comment on above: Performed By: #### L 500.4050, L100.0100 #### [facility] [address] [place], [address] Absolute Neut 10.6 X10 3/uL High 2.0-7.7 [facility] Comment on above: Performed By: #### L 500.4050, L100.0100 #### [facility] [address] [place], [address] Basophils/100 WBC (Bld) 0.2 % Normal 0-1 [facility] Comment on above: Performed By: #### L 500.4050, L100.0100 #### [facility] [address] [place], [address] Eosinophils/100 WBC (Bld) 0.5 % Normal 0-5 [facility] Comment on above: Performed By: #### L 500.4050, L100.0100 #### [facility] [address] [place], [address] Erythrocyte distribution width (RBC) [Ratio] 14.7 % High 11.6-14.6 [facility] Comment on above: Performed By: #### L 500.4050, L100.0100 #### [facility] [address] [place], [address] Hematocrit (Bld) [Volume fraction] 29.8 % Low 40-54 [facility] Comment on above: Performed By: #### L 500.4050, L100.0100 #### [facility] [address] [place], [address] Hemoglobin (Bld) [Mass/Vol] 10.2 g/dL Low 13.0-16.5 [facility] Comment on above: Performed By: #### L 500.4050, L100.0100 #### [facility] [address] [place], [address] IG% 1.000 High 0.0-0.9 [facility] Comment on above: Result Comment: IG% - Immature Granulocytes (promyelocytes, myelocytes and metamyelocytes) > 1% indicates that a LEFT SHIFT is Present. Performed By: #### L 500.4050, L100.0100 #### [facility] [address] [place], [address] Lymphocytes/100 WBC (Bld) 5.5 % Low 19-41 [facility] Comment on above: Performed By: #### L 500.4050, L100.0100 #### [facility] [address] [place], [address] MCH (RBC) [Entitic mass] 29.7 pg Normal 27.0-32.0 [facility] Comment on above: Performed By: #### L 500.4050, L100.0100 #### [facility] [address] [place], [address] MCHC (RBC) [Mass/Vol] 34.2 g/dL Normal 32-36 [facility] Comment on above: Performed By: #### L 500.4050, L100.0100 #### [facility] [address] [place], [address] MCV (RBC) [Entitic vol] 86.9 fL Normal 80-94 [facility] Comment on above: Performed By: #### L 500.4050, L100.0100 #### [facility] [address] [place], [address] Monocytes/100 WBC (Bld) 5.4 % Normal 0-10 [facility] Comment on above: Performed By: #### L 500.4050, L100.0100 #### [facility] [address] [place], [address] Neutrophils/100 WBC (Bld) 87.4 % High 47-70 [facility] Comment on above: Performed By: #### L 500.4050, L100.0100 #### [facility] [address] [place], [address] Nucleated RBC (Bld) [#/Vol] 0 10*3/uL Normal 0-5 [facility] Comment on above: Performed By: #### L 500.4050, L100.0100 #### [facility] [address] [place], [address] Platelet mean volume (Bld) [Entitic vol] 9.5 fL Normal 6.2-12.0 [facility] Comment on above: Performed By: #### L 500.4050, L100.0100 #### [facility] [address] [place], [address] Platelets (Bld) [#/Vol] 223 10*3/uL Normal 150-450 [facility] Comment on above: Performed By: #### L 500.4050, L100.0100 #### [facility] [address] [place], [address] RBC (Bld) [#/Vol] 3.43 10*6/uL Low 4.6-6.2 [facility] Comment on above: Performed By: #### L 500.4050, L100.0100 #### [facility] [address] [place], [address] RDW SD 46.7 fl High 35.1-43.9 [facility] Comment on above: Performed By: #### L 500.4050, L100.0100 #### [facility] [address] [place], [address] WBC (Bld) [#/Vol] 12.1 10*3/uL High 4.4-11.0 [facility] Comment on above: Performed By: #### L 500.4050, L100.0100 #### [facility] [address] [place], [address] CBC WITH AUTO DIFFERENTIALon 08-09-2024 Basophils (Bld) [#/Vol] 0.0 10*3/uL Normal 0.0-0.2 [facility] Comment on above: Performed By: #### L [id number] ####Digital [employer] Operator: CARMEL HOWARD ([phone])[place])[address] [place] [address] [place] Basophils/100 WBC (Bld) 0.2 % Normal 0.0-2.0 [facility] Comment on above: Performed By: #### L [id number] ####Digital Press Operator: CARMEL HOWARD ([phone])[place])[address] [place] [address] [place] Eosinophils (Bld) [#/Vol] 0.1 10*3/uL Normal 0.0-0.5 [facility] Comment on above: Performed By: #### L [id number] ####Digital Press Operator: CARMEL HOWARD ([phone])[place])[address] [place] [address] [place] Eosinophils/100 WBC (Bld) 0.6 % Normal 0.0-6.0 [facility] Comment on above: Performed By: #### L [id number] ####Digital Press Operator: CARMEL [id number])[place])[address] [place] [address] Erythrocyte distribution width (RBC) [Ratio] 14.7 % Normal 11.5-15.0 [facility] Comment on above: Performed By: #### L [id number] ####Digital Press Operator: CARMEL HOWARD ([phone])[place])[address] [place] [address] Hematocrit (Bld) [Volume fraction] 29.6 % Low 40.0-52.0 [facility] Comment on above: Performed By: #### L [id number] ####Digital Press Operator: CARMEL HOWARD ([phone])[place])[address] [place] [address] Hemoglobin (Bld) [Mass/Vol] 10.2 g/dL Low 13.0-18.0 [facility] Comment on above: Performed By: #### L [id number] ####Digital Press Operator: CARMEL HOWARD ([phone])[place])[address] [place] [address] IMMATURE GRANS % 0.5 % Normal 0.0-2.0 [facility] Comment on above: Performed By: #### L [id number] ####Digital Press Operator: CARMEL HOWARD ([phone])[place])[address] [place] [address] IMMATURE GRANS ABSOLUTE 0.1 10*3/uL High <0.1 [facility] Comment on above: Performed By: #### L [id number] ####Digital Press Operator: CARMEL HOWARD ([phone])[place])[address] [place] [address] Lymphocytes (Bld) [#/Vol] 0.5 10*3/uL Low 1.0-4.3 [facility] Comment on above: Performed By: #### L [id number] ####Digital Press Operator: CARMEL HOWARD ([phone])[place])[address] [place] [address] [place] Lymphocytes/100 WBC (Bld) 5.5 % Low 15.0-45.0 [facility] Comment on above: Performed By: #### L [id number] ####Digital Press Operator: CARMEL HOWARD ([phone])[place])[address] [place] [address] MCH (RBC) [Entitic mass] 30.0 pg Normal 26.0-34.0 [facility] Comment on above: Performed By: #### L [id number] ####Digital Press Operator: CARMEL HOWARD ([phone])[place])[address] [place] [address] MCHC 34.5 % Normal 30.5-36.0 [facility] Comment on above: Performed By: #### L [id number] ####Digital Press Operator: CARMEL HOWARD ([phone])[place])[address] [place] [address] MCV (RBC) [Entitic vol] 87.1 fL Normal 77.0-99.0 [facility] Comment on above: Performed By: #### L [id number] ####Digital Press Operator: CARMEL HOWARD ([phone])[place])[address] [place] [address] Monocytes (Bld) [#/Vol] 0.6 10*3/uL Normal 0.0-0.9 [facility] Comment on above: Performed By: #### L [id number] ####Digital Press Operator: CARMEL HOWARD ([phone])[place])[address] [place] [address] Monocytes/100 WBC (Bld) 6.0 % Normal 5.0-13.0 [facility] Comment on above: Performed By: #### L [id number] ####Digital Press Operator: CARMEL HOWARD ([id number])[place])[address] [place] [address] NEUTROPHILS ABSOLUTE 8.6 10*3/uL High 1.8-7.5 [facility] Comment on above: Performed By: #### L [id number] ####Digital Press Operator: CARMEL HOWARD ([phone])[facility])[address] [place] [address] Neutrophils/100 WBC (Bld) 87.2 % High 38.0-82.0 [facility] Comment on above: Performed By: #### L [id number] ####Digital Press Operator: CARMEL HOWARD ([phone])[facility] ([facility])[address] [place] [address] NRBC 0.0 /100 WBCs Normal 0.0-2.0 [facility] Comment on above: Performed By: #### L [id number] ####Digital Press Operator: CARMEL HOWARD ([phone])[place])[address] [place] [address] Platelet mean volume (Bld) [Entitic vol] 9.4 fL Normal 9.0-12.7 [facility] Comment on above: Performed By: #### L [id number] ####Digital Press Operator: CARMEL HOWARD ([phone])[facility] ([facility])[address] [place] [address] Platelets (Bld) [#/Vol] 207 10*3/uL Normal 140-440 [facility] Comment on above: Performed By: #### L [id number] ####Digital Press Operator: CARMEL HOWARD ([phone])[facility] ([facility])[address] [place] [address] RBC (Bld) [#/Vol] 3.40 10*6/uL Low 4.40-5.90 [facility] Comment on above: Performed By: #### L [id number] ####Digital Press Operator: CARMEL HOWARD ([id number])[place])[address] [place] [address] WBC (Bld) [#/Vol] 9.9 10*3/uL Normal 3.6-10.7 [facility] Comment on above: Performed By: #### L [id number] ####Digital Press Operator: CARMEL HOWARD ([phone])[facility] ([facility])[address] [place] [address] COMPREHENSIVE METABOLIC PANE Pollo 08-09-2024 Albumin [Mass/Vol] 2.1 g/dL Low 3.4-4.8 [facility] Comment on above: Performed By: #### L AB17 ####Digital Press Operator: CARMEL HOWARD ([id number])[facility] ([facility])[address] [place] [address] ALP [Catalytic activity/Vol] 52 U/L Normal 40-150 [facility] Comment on above: Performed By: #### L AB17 ####Digital Press Operator: CARMEL HOWARD ([phone])[facility] ([facility])[address] [place] [address] ALT [Catalytic activity/Vol] U/L Normal <40 [facility] Comment on above: Performed By: #### L AB17 ####Digital Press Operator: CARMEL HOWARD ([id number])[facility] ([facility])[address] [place] [address] Anion gap [Moles/Vol] 9 mmol/L Normal 3-13 [facility] Comment on above: Performed By: #### L AB17 ####Digital Press Operator: CARMEL HOWARD ([phone])[facility] ([facility])[address] [place] [address] AST [Catalytic activity/Vol] 15 U/L Normal <34 [facility] Comment on above: Performed By: #### L AB17 ####Digital Press Operator: CARMEL HOWARD ([phone])[facility] ([facility])[address] [place] [address] Bilirubin [Mass/Vol] 0.6 mg/dL Normal <1.2 [facility] Comment on above: Performed By: #### L AB17 ####Digital Press Operator: CARMEL HOWARD ([phone])[facility] ([facility])[address] [place] [address] Calcium [Mass/Vol] 7.4 mg/dL Low 8.8-10.0 [facility] Comment on above: Performed By: #### L AB17 ####Digital Press Operator: CARMEL HOWARD ([id number])[facility] ([facility])[address] [place] [address] Chloride [Moles/Vol] 107 mmol/L Normal 98-107 [facility] Comment on above: Performed By: #### L AB17 ####Digital Press Operator: CARMEL HOWARD ([phone])[facility] ([facility])[address] [place] [address] CO2 [Moles/Vol] 25 mmol/L Normal 23-31 [facility] Comment on above: Performed By: #### L AB17 ####Digital Press Operator: CARMEL HOWARD ([id number])[place])[address] [place] [address] Creatinine [Mass/Vol] 0.60 mg/dL Low 0.72-1.25 [facility] Comment on above: Performed By: #### L AB17 ####Digital Press Operator: CARMEL HOWARD ([phone])[facility] ([facility])[address] [place] [address] GLOMERULAR FILTRATION RATE ML/MIN/1.73 SQ M.PREDICTED >90.0 Normal >60.0 [facility] Comment on above: Result Comment: Calc ulation based on the Chronic Kidney Disease Epidemiology Collaboration (CKD-EPI) equation refit without adjustment for race Performed By: #### L AB17 ####Digital Press Operator: CARMEL HOWARD ([phone])[facility] ([facility])[address] [place] [address] Glucose [Mass/Vol] 112 mg/dL Normal 82-115 [facility] Comment on above: Performed By: #### L AB17 ####Digital Press Operator: CARMEL HOWARD ([id number])[place])[address] [place] [address] Potassium [Moles/Vol] 3.2 mmol/L Low 3.5-5.1 [facility] Comment on above: Result Comment: [facility] potassium values may be up to 0.5 mmol/L lower than serum values. Performed By: #### L AB17 ####Digital Press Operator: CARMEL HOWARD ([phone])[place])[address] [place] [address] Protein [Mass/Vol] 4.8 g/dL Low 6.4-8.3 [facility] Comment on above: Performed By: #### L AB17 ####Digital Press Operator: CARMEL HOWARD ([id number])[place])[address] [place] [address] Sodium [Moles/Vol] 141 mmol/L Normal 136-145 [facility] Comment on above: Performed By: #### L AB17 ####Digital Press Operator: CARMEL HOWARD ([id number])[address] Urea nitrogen [Mass/Vol] 14 mg/dL Normal 9-23 [facility] Comment on above: Performed By: #### L AB17 ####Digital Press Operator: CARMEL HOWARD ([phone])[place])[address] [place] [address] CT ABDOMEN PELVIS W CONTRAST on 08-09-2024 CT ABDOMEN PELVIS W CONTRAST Normal [facility] CT Abdomen and Pelvis W cont [...] findings was made to Dr. Spann via [employer] on 08/09/2024 10:10 PM EDT. Report Dictated on Electronically Signed By: Jose D Ayon MD Electronically Signed Date/Time: 08/09/2024 10:10 PM EDT --------ORIGINAL REPORT -------- CT ABDOMEN AND PELVIS CLINICAL INDICATION: CF duodenal perforation TECHNIQUE: CT scan of the abdomen and pelvis with IV contrast. Multiplanar reformations. Dose reduction was employed with automated exposure control. COMPARISON: 08/05/2024 from [facility] FINDINGS: Small RIGHT and moderate to [...] findings was made to Dano James via [employer] on 08/09/2024 9:33 PM EDT. Report Dictated on Electronically Signed By: Jose D Ayon MD Electronically Signed Date/Time: 08/09/2024 9:55 PM EDT [facility] 1. Gas fluid and contrast in the [...] findings was made to Dano James via [employer] on 08/09/2024 9:33 PM EDT. Report Dictated on Electronically Signed By: Jose D Ayon MD Electronically Signed Date/Time: 08/09/2024 9:55 PM EDT [facility] Patient Name: LAINE GARCIA : 1955 Exam Date/Time: 08/09/2024 21:15 Procedure: CT ABDOMEN PELVIS W CONTRAST Ordering Provider: EARL JEFFREY Reason For Exam: CF duodenal perforation CT ABDOMEN AND PELVIS CLINICAL INDICATION: CF duodenal perforation TECHNIQUE: CT scan of the abdomen and pelvis with IV contrast. Multiplanar reformations. Dose reduction was employed with automated exposure control. COMPARISON: 08/05/2024 from [facility] FINDINGS: Small RIGHT and moderate to [...] obstruction. Normal appendix. No ureteral calculus seen. [facility] Jose D Ayon MD - 08/09/2024 [...] with automated exposure control. COMPARISON: 08/05/2024 from [facility] FINDINGS: Small RIGHT and moderate to [...] findings was made to Dano James via [employer] on 08/09/2024 9:33 PM EDT. Report Dictated on Electronically Signed By: Jose D Ayon MD Electronically Signed Date/Time: 08/09/2024 9:55 PM EDT [facility] Radiology Study observation (narrative) [facility] alth CT Abdomen and Pelvis W cont rast IVOrdered By: Jose D Ayon on 08-09-2024 [facility] [employer] Work Phone: CTA Chest W/WO Contraston CTA Chest W/WO Contrast [facility] Imaging Services [address] [place] [address] CTA Chest W/WO Contrast MR#: [id number] Acct: [id number] Name: LAINE GARCIA Rep #: [id number] : 1955 M 69 From: Romie Huang MD PCP: Dr. Dante Gurrola MD Status: ADM IN Study: CTA Chest W/WO Contrast Date of Exam: 08/09/24 Exam# [id number] Ordering Dr: Brandie Spears DO PROCEDURE: CTA [...] 9:18 am with readback verification. Reading Location: [id number] CC: Dr. Dante Gurrola MD; Dr. Brandie Spears DO Residential Mortgage Underwriter: Signed Normal [facility] Carbon dioxide, total [Moles /volume] in Central venous bloodOrdered By: Brandie Spears on 08-09-2024 CO2 [Moles/Vol] 24.4 mmol/L 21.0-32.0 [facility] Chloride assayOrdered By: Cathryn Spears on 08-09-2024 Chloride [Moles/Vol] 106 mmol/L 98-108 [facility] Comprehensive metabolic 1998 panelon 08-09-2024 Albumin [Mass/Vol] 2.1 g/dL Low 3.4 - 4.8 g/dL [facility] ALP [Catalytic activity/Vol] 52 U/L 40 - 150 U/L [facility] ALT [Catalytic activity/Vol] U/L NINF - 40 U/L [facility] Anion gap [Moles/Vol] 9 mmol/L 3 - 13 mmol/L [facility] AST [Catalytic activity/Vol] 15 U/L [facility]/L [facility] Bilirubin [Mass/Vol] 0.6 mg/dL [facility] - 1.2 mg/dL [facility] Calcium [Mass/Vol] 7.4 mg/dL Low 8.8 - 10. 0 mg/dL [facility] Chloride [Moles/Vol] 107 mmol/L 98 - 10 7 mmol/L [facility] CO2 [Moles/Vol] 25 mmol/L 23 - 31 mmol/L [facility] Creatinine [Mass/Vol] 0.6 mg/dL Low 0.72 - 1.25 mg/dL [facility] GFR/1.73 sq M.predicted (S/P/Bld) [Vol rate/Area] - PINF [facility] Comment on above: Calculation based on the Chronic Kidney Disease Epidemiology Collaboration (CKD-EPI) equation refit without adjustment for race Glucose [Mass/Vol] 112 mg/dL 82 - 115 mg/dL [facility] Interpretation and review of laboratory results Abnormal [facility] Potassium [Moles/Vol] 3.2 mmol/L Low 3.5 - 5.1 mmol/L [facility] Comment on above: Plasma potassium shruthi ues may be up to 0.5 mmol/L lower than serum values. Protein [Mass/Vol] 4.8 g/dL Low 6.4 - 8.3 g/dL [facility] Sodium [Moles/Vol] 141 mmol/L 136 - 145 mmol/L [facility] Urea nitrogen [Mass/Vol] 14 mg/dL 9 - 23 mg/dL [facility] Consultation - Surgicalon Consultation - Surgical [facility] Medical Records Department [address] [place] [address] Consultation - Surgical 08/09/24 1129 MR#: [id number] Acct: [id number] Name: LAINE GARCIA Rep #: [id number] : 1955 69 From: Lebron Francisco MD PCP: Dr. Dante Gurrola MD Status:ADM IN [id number] Assessment Plan Assessment/Plan (1) Pulmonary embolism: QUALIFIERS: [...] have duodenal bleeding ulcers which were treated /. Today he had episode of hypoxia and fever and CTA chest revealed small bilateral PE. The abdominal portion of the scan also revealed free air/fluid that was confirmed on dedicated abdominal CT. He has history of prior provoked DVT in 2016 which was treated with course of oral anticoagulation. [facility] Medical History History of DVT (deep [...] Micro Data (more content not included)... Normal [facility] ED Nursing Noteon 08-09-2024 ED Nursing Note Patient taken to OR Normal [facility] ED Nursing Note Pt transferred from [facility] for b/l PE and perforated ulcer. Pt had IVC filter placed today Normal [facility] ED Provider Noteon ED Provider Note Normal [facility] Eosinophil percentageOrdered By: Brandie Spears on 08-09-2024 Eosinophils/100 WBC (Bld) 0.5 % 0-5 [facility] Erythrocyte distribution wid th ratioOrdered By: Brandie Spears on 08-09-2024 Erythrocyte distribution width (RBC) [Ratio] 14.7 % High 11.6-14.6 [facility] Erythrocyte distribution wid th standard deviationOrdered By: Brandie Spears on 08-09-2024 Erythrocyte distribution width (RBC) [Ratio] 46.7 fl High 35.1-43.9 [facility] Glomerular filtration rate ( GFR) estimation/1.73 sq m using serum, plasma, or whole bOrdered By: Brandie Spears on 08-09-2024 GFR/1.73 sq M.predicted among non-blacks MDRD (S/P/Bld) [Vol rate/Area] 109 mL/min/{1.73_m2} >60 [facility] Comment on above: mL/min/1.73m2 CKD-EP I Creatinine Equation (2020) Hematocrit Auto (Bld) [Volum e fraction]Ordered By: Brandie Spears on 08-09-2024 Hematocrit (Bld) [Volume fraction] 29.8 % Low 40-54 [facility] Hemoglobin measurementOrdere d By: Brandie Spears on 08-09-2024 Hemoglobin (Bld) [Mass/Vol] 10.2 g/dL Low 13.0-16.5 [facility] Immature granulocytes/100 WB C Auto (Bld)Ordered By: Brandie Spears on 08-09-2024 Immature granulocytes/100 WBC (Bld) 1.000 % High 0.0-0.9 [facility] Comment on above: IG% - Immature Granu locytes (promyelocytes, myelocytes and metamyelocytes) > 1% indicates that a LEFT SHIFT is Present. Influenza virus A and B and SARS-CoV-2 (COVID-19) and Respiratory syncytial virus RNAOrdered By: Brandie Spears on 08-09-2024 SARS-CoV-2 (COVID-19) RNA TOMEKA+probe Ql (Unsp spec) [facility] L509.7001on 08-09-2024 Procalcitonin 0.70 ng/mL High <=0.10 [facility] Comment on above: Result Comment: Inte rpretation: [...] of the patient. Performed By: #### L 500.4050, L100.0100 #### [facility] [address] [place], [address] LACTIC ACID WITH REFLEXon Lactate [Moles/Vol] 0.7 mmol/L Normal 0.5-2.2 [facility] Comment on above: Performed By: #### L [id number] ####Digital Press Operator: CARMEL HOWARD ([phone])[facility] ([address] Laboratory - Chemistry and C hemistry - challengeon 08-09-2024 Lactate [Moles/Vol] 0.7 mmol/L 0.5 - 2. 2 mmol/L [facility] Laboratory - Coagulationon 0 08-09-2024 PT Coag (Bld) [Time] 11.9 s 9.0 - 1 2.0 s [facility] M100.678on 08-09-2024 M100.678 Pending SARS-CoV-2 (COVID 19) Negative INFLUENZA A Negative INFLUENZA B Negative RSV PCR Negative Normal [facility] Comment on above: Performed By: #### M 100.678 ####[facility] [address] [facility], [address] MCV (mean corpuscular volume ) determinationOrdered By: Bradnie Spears on 08-09-2024 MCV (RBC) [Entitic vol] 86.9 fL 80-94 [facility] Magnesiumon 08-09-2024 Magnesium [Mass/Vol] 1.9 mg/dL Normal 1.5-2.2 [facility] Comment on above: Performed By: #### L 500.4050, L100.0100 #### [facility] [address] [facility], [address] Magnesium measurement (mass/ volume)Ordered By: Brandie Spears on 08-09-2024 Magnesium (Unsp spec) [Mass/Vol] 1.9 mg/dL 1.5-2.2 [facility] Mean corpuscular hemoglobin (MCH) determinationOrdered By: Brandie Spears on 08-09-2024 MCH (RBC) [Entitic mass] 29.7 pg 27.0-32.0 [facility] Mean corpuscular hemoglobin concentration (MCHC) determinationOrdered By: Brandie Spears on 08-09-2024 MCHC (RBC) [Mass/Vol] 34.2 g/dL 32-36 [facility] Mean platelet volume determi nationOrdered By: Brandie Spears on 08-09-2024 Platelet mean volume (Bld) [Entitic vol] 9.5 fL 6.2-12.0 [facility] Monocyte percentageOrdered B y: Brandie Spears on 08-09-2024 Monocytes/100 WBC (Bld) 5.4 % 0-10 [facility] Neutrophil percentageOrdered By: Brandie Spears on 08-09-2024 Neutrophils/100 WBC (Bld) 87.4 % High 47-70 [facility] No Panel Informationon 08-09 Interpretation and review of laboratory results Normal [facility] Nucleated red blood cell per centageOrdered By: Brandie Spears on 08-09-2024 Nucleated RBC/100 WBC (Bld) [Ratio] 0 % 0-5 [facility] Op Noteon 08-09-2024 Op Note Normal [facility] Operative Reporton Operative Report [facility] Medical Records Department [address] [place] [address] Operative Report 08/09/24 1612 MR#: [id number] Acct: [id number] Name: LAINE GARCIA Rep #: [id number] : 1955 69 From: Lebron Francisco MD PCP: Dr. Dante Gurrola MD Status:ADM IN Location: [place] [address] Operative Report (Standard) Operative Information Date of Procedure: 08/09/24 Pre-Operative Diagnosis: PE, GI bleed Post-Operative Diagnosis: same Surgery/Procedure Performed: insertion IVC filter biology internship: No Type of Anesthesia: Local and Sedation,Conscious [...] site the patient was taken to the Beauty [facility] Manager where he was positioned prepped and draped [...] Findings: see above Complications Complications: No 08/09/24 1618 Cosigner Signature (if applicable): CC: Dr. Hector Bhakta MD; Dr. Dante Gurrola MD; Dr. Lebron Francisco MD; Dr. Melonie Odell MD; Dr. Derrick Yadav MD Signed Normal [facility] PROTHROMBIN TIMEon INR Coag (PPP) [Relative time] 1.1 {INR} Normal 0.9-1.1 [facility] Comment on above: Result Comment: Yoshi mmended Anticoagulant Therapy: SEE BELOW----- INR of 2.0 - 3.0 : - Prophylaxis of Venous Thrombosis (high-risk surgery) - Treatment of Venous Thrombosis - Treatment of Pulmonary Embolism (Includes tissue heart valves, Acute Myocardial Infarction to prevent systemic embolism, Valvular Heart Disease, and Atrial Fibrillation)----- INR of 2.5 - 3.5 : - Mechanical Prosthetic Valves (high risk) - If oral anticoagulant therapy is used to prevent Myocardial Infarction Performed By: #### L AB325, [id number] ####Digital Press Operator: CARMEL HOWARD ([phone])[address] PT Coag (PPP) [Time] 11.9 s Normal 9.0-12.0 [facility] Comment on above: Performed By: #### L AB325, [id number] ####Digital Press Operator: CARMEL HOWARD ([phone])[address] PT Coag (Bld) [Time]on 08-09 INR Coag (PPP) [Relative time] 1.1 {INR} 0.9 - 1.1 [facility] Comment on above: Recommended Anticoag ulant Therapy: [...] Interpretation and review of laboratory results Normal [facility] Phosphoruson 08-09-2024 Phosphate [Mass/Vol] 1.3 mg/dL Invalid Interpretation Code 2.7-4.5 [facility] Comment on above: Performed By: #### L 500.4050, L100.0100 #### [facility] [address] [place], [place], [id number] Platelet countOrdered By: Cathryn Spears on 08-09-2024 Platelets (Bld) [#/Vol] 223 10*3/uL 150-450 [facility] Potassium measurement (mass/ volume)Ordered By: Brandie Spears on 08-09-2024 Potassium (Unsp spec) [Mass/Vol] 3.2 mmol/L Low 3.3-5.1 [facility] Procalcitonin [Mass/volume] in Serum or Plasma by ImmunoassayOrdered By: Brandie Spears on 08-09-2024 Procalcitonin IA [Mass/Vol] 0.70 ng/mL High <0.11 [facility] Comment on above: Interpretation:<0.10 -0.25 ng/mL: Antibiotic [...] the patient. Progress Noteon 08-09-2024 Progress Note Normal [facility] Progress [facility] RBC Auto (Bld) [#/Vol]Ordere d By: Brandie Spears on 08-09-2024 RBC (Bld) [#/Vol] 3.43 10*6/uL Low 4.6-6.2 [facility] RESPIRATORY PANEL MOLECULARo n 08-09-2024 [...] Not Detected RSV B Not Detected Normal [facility] Comment on above: Performed By: #### L 500.4050, L100.0100 #### [facility] [place], [address] Respiratory pathogens detect ion panel by molecular detection methodOrdered By: Brandie Spears on 08-09-2024 Respiratory pathogens DNA and RNA panel TOMEKA+probe (Resp) [facility] Serum creatinine measurement (mass/volume)Ordered By: Brandie Spears on 08-09-2024 Creatinine [Mass/Vol] 0.51 mg/dL Low 0.70-1.20 [facility] Serum glucose measurement (m ass/volume)Ordered By: Brandie Spears on 08-09-2024 Glucose [Mass/Vol] 116 mg/dL High 70-99 [facility] Serum or plasma calcium arnie urement (mass/volume)Ordered By: Brandie Spears on 08-09-2024 Calcium [Mass/Vol] 7.7 mg/dL 7.6-11.0 [facility] Serum or plasma urea nitroge n measurement (mass/volume)Ordered By: Brandie Spears on 08-09-2024 Urea nitrogen [Mass/Vol] 16 mg/dL 4-19 [facility] Sodium levelOrdered By: Lashay Spears on 08-09-2024 Sodium [Moles/Vol] 139 mmol/L 133-145 [facility] White blood cell (WBC) count Ordered By: Brandie Spears on 08-09-2024 WBC (Bld) [#/Vol] 12.1 10*3/uL High 4.4-11.0 [facility] aPTT Coag (Bld) [Time]on aPTT Coag (PPP) [Time] 30.9 s High 20.0 - 30.5 s [facility] Interpretation and review of laboratory results Abnormal [facility] NOTE: The therapeuti c time for Heparin anticoagulation, based on Xa activity inhibition, is an APTT of 46-80 seconds. [facility] Bilirubin, totalOrdered By: Betito Avendano on 08-08-2024 Bilirubin [Mass/Vol] 0.52 mg/dL 0.00-1.30 [facility] CBC W/Diff, Automatedon Absolute Lymph 0.44 X10 3/uL Low 0.83-4.51 [facility] Comment on above: Performed By: #### L 100.0100, L500.4050 #### [facility] [address] [place], [address] Absolute Neut 12.6 X10 3/uL High 2.0-7.7 [facility] Comment on above: Performed By: #### L 100.0100, L500.4050 #### [facility] [address] [place], [address] Basophils/100 WBC (Bld) 0.1 % Normal 0-1 [facility] Comment on above: Performed By: #### L 100.0100, L500.4050 #### [facility] [address] [place], [address] Eosinophils/100 WBC (Bld) 0.1 % Normal 0-5 [facility] Comment on above: Performed By: #### L 100.0100, L500.4050 #### [facility] [address] [place], [address] Erythrocyte distribution width (RBC) [Ratio] 15.2 % High 11.6-14.6 [facility] Comment on above: Performed By: #### L 100.0100, L500.4050 #### [facility] [address] [place], [address] Hematocrit (Bld) [Volume fraction] 28.7 % Low 40-54 [facility] Comment on above: Performed By: #### L 100.0100, L500.4050 #### [facility] [address] [place], [address] Hemoglobin (Bld) [Mass/Vol] 9.8 g/dL Low 13.0-16.5 [facility] Comment on above: Performed By: #### L 100.0100, L500.4050 #### [facility] [address] [place], [address] IG% 0.500 Normal 0.0-0.9 [facility] Comment on above: Result Comment: IG% - Immature Granulocytes (promyelocytes, myelocytes and metamyelocytes) > 1% indicates that a LEFT SHIFT is Present. Performed By: #### L 100.0100, L500.4050 #### [facility] [address] [place], [address] Lymphocytes/100 WBC (Bld) 3.2 % Low 19-41 [facility] Comment on above: Performed By: #### L 100.0100, L500.4050 #### [facility] [address] [place], [address] MCH (RBC) [Entitic mass] 30.0 pg Normal 27.0-32.0 [facility] Comment on above: Performed By: #### L 100.0100, L500.4050 #### [facility] [address] [place], [address] MCHC (RBC) [Mass/Vol] 34.1 g/dL Normal 32-36 [facility] Comment on above: Performed By: #### L 100.0100, L500.4050 #### [facility] [address] [place], [address] MCV (RBC) [Entitic vol] 87.8 fL Normal 80-94 [facility] Comment on above: Performed By: #### L 100.0100, L500.4050 #### [facility] [address] [place], [address] Monocytes/100 WBC (Bld) 4.6 % Normal 0-10 [facility] Comment on above: Performed By: #### L 100.0100, L500.4050 #### [facility] [address] [place], [address] Neutrophils/100 WBC (Bld) 91.5 % High 47-70 [facility] Comment on above: Performed By: #### L 100.0100, L500.4050 #### [facility] [address] [place], [address] Nucleated RBC (Bld) [#/Vol] 0 10*3/uL Normal 0-5 [facility] Comment on above: Performed By: #### L 100.0100, L500.4050 #### [facility] [address] [place], [address] Platelet mean volume (Bld) [Entitic vol] 9.4 fL Normal 6.2-12.0 [facility] Comment on above: Performed By: #### L 100.0100, L500.4050 #### [facility] [address] [place], [address] Platelets (Bld) [#/Vol] 201 10*3/uL Normal 150-450 [facility] Comment on above: Performed By: #### L 100.0100, L500.4050 #### [facility] [address] [place], [address] RBC (Bld) [#/Vol] 3.27 10*6/uL Low 4.6-6.2 [facility] Comment on above: Performed By: #### L 100.0100, L500.4050 #### [facility] [address] [place], [address] RDW SD 49.0 fl High 35.1-43.9 [facility] Comment on above: Performed By: #### L 100.0100, L500.4050 #### [facility] [address] [place], [address] WBC (Bld) [#/Vol] 13.8 10*3/uL High 4.4-11.0 [facility] Comment on above: Performed By: #### L 100.0100, L500.4050 #### [facility] [address] [place], [address] Absolute Neut Normal 2.0-7.7 [facility] Comment on above: Result Comment: DUPL ICATE Performed By: #### L 500.4050, L100.0100 #### [facility] [address] [place], [address] HCT Normal 40-54 [facility] Comment on above: Result Comment: DUPL ICATE Performed By: #### L 500.4050, L100.0100 #### [facility] [address] [place], [address] HGB Normal 13.0-16.5 [facility] Comment on above: Result Comment: DUPL ICATE Performed By: #### L 500.4050, L100.0100 #### [facility] [address] [place], [address] MCH Normal 27.0-32.0 [facility] Comment on above: Result Comment: DUPL ICATE Performed By: #### L 500.4050, L100.0100 #### [facility] [address] [place], [address] MCHC Normal 32-36 [facility] Comment on above: Result Comment: DUPL ICATE Performed By: #### L 500.4050, L100.0100 #### [facility] [address] [place], [address] MCV Normal 80-94 [facility] Comment on above: Result Comment: DUPL ICATE Performed By: #### L 500.4050, L100.0100 #### [facility] [address] [place], [address] NEUT% Normal 47-70 [facility] Comment on above: Result Comment: DUPL ICATE Performed By: #### L 500.4050, L100.0100 #### [facility] [address] [place], [address] PLT Normal 150-450 [facility] Comment on above: Result Comment: DUPL ICATE Performed By: #### L 500.4050, L100.0100 #### [facility] [address] [place], [address] RBC Normal 4.6-6.2 [facility] Comment on above: Result Comment: DUPL ICATE Performed By: #### L 500.4050, L100.0100 #### [facility] [address] [place], [address] RDW CV Normal 11.6-14.6 [facility] Comment on above: Result Comment: DUPL ICATE Performed By: #### L 500.4050, L100.0100 #### [facility] [address] [place], [address] RDW SD Normal 35.1-43.9 [facility] Comment on above: Result Comment: DUPL ICATE Performed By: #### L 500.4050, L100.0100 #### [facility] [address] [place], [address] WBC Normal 4.4-11.0 [facility] Comment on above: Result Comment: DUPL ICATE Performed By: #### L 500.4050, L100.0100 #### [facility] [address] [place], [address] Comprehensive Metabolic Prof wvon 08-08-2024 Albumin [Mass/Vol] 2.7 g/dL Low 3.4-4.8 [facility] Comment on above: Performed By: #### L 100.0100, L500.4050 ####[facility] [address] [place], [address] Albumin/Globulin [Mass ratio] 1.1 {ratio} Normal 0.9-2.4 [facility] Comment on above: Performed By: #### L 100.0100, L500.4050 ####[facility] [address] [place], [address] ALK PHOS 59 U/L Normal 40-129 [facility] Comment on above: Performed By: #### L 100.0100, L500.4050 ####[facility] [address] [place], [address] ALT [Catalytic activity/Vol] 7 U/L Normal <=46 [facility] Comment on above: Performed By: #### L 100.0100, L500.4050 ####[facility] [address] [place], [address] AST [Catalytic activity/Vol] 15 U/L Normal <=37 [facility] Comment on above: Performed By: #### L 100.0100, L500.4050 ####[facility] [address] [place], [address] Bilirubin [Mass/Vol] 0.52 mg/dL Normal 0.00-1.30 [facility] Comment on above: Performed By: #### L 100.0100, L500.4050 ####[facility] [address] [place], [address] BUN/CRE 29.6 RATIO High 10-20 [facility] Comment on above: Performed By: #### L 100.0100, L500.4050 ####[facility] [address] [place], [address] Calcium [Mass/Vol] 7.7 mg/dL Normal 7.6-11.0 [facility] Comment on above: Performed By: #### L 100.0100, L500.4050 ####[facility] [address] [place], [address] Chloride [Moles/Vol] 107 mmol/L Normal 98-108 [facility] Comment on above: Performed By: #### L 100.0100, L500.4050 ####[facility] [address] [place], [address] CO2 [Moles/Vol] 24.0 mmol/L Normal 21.0-32.0 [facility] Comment on above: Performed By: #### L 100.0100, L500.4050 ####[facility] [address] [place], [address] Creatinine [Mass/Vol] 0.60 mg/dL Low 0.70-1.20 [facility] Comment on above: Performed By: #### L 100.0100, L500.4050 ####[facility] [address] [place], [address] ECRCL 88.72 ml/min Normal 50-250 [facility] Comment on above: Performed By: #### L 100.0100, L500.4050 ####[facility] [address] [place], [address] GAP 8 Normal 5-15 [facility] Comment on above: Performed By: #### L 100.0100, L500.4050 ####[facility] [address] [place], [address] GFR/1.73 sq M.predicted among non-blacks MDRD (S/P/Bld) [Vol rate/Area] 104 mL/min/{1.73_m2} Normal >60 [facility] Comment on above: Result Comment: mL/m in/1.73m2 CKD-EPI Creatinine Equation (2020) Performed By: #### L 100.0100, L500.4050 ####[facility] [address] [place], [address] Globulin (S) [Mass/Vol] 2.4 g/dL Normal 2.2-4.2 [facility] Comment on above: Performed By: #### L 100.0100, L500.4050 ####[facility] [address] [place], [address] Glucose [Mass/Vol] 120 mg/dL High 70-99 [facility] Comment on above: Performed By: #### L 100.0100, L500.4050 ####[facility] [address] [place], [address] Potassium [Moles/Vol] 3.3 mmol/L Normal 3.3-5.1 [facility] Comment on above: Performed By: #### L 100.0100, L500.4050 ####[facility] [address] [place], [address] Sodium [Moles/Vol] 138 mmol/L Normal 133-145 [facility] Comment on above: Performed By: #### L 100.0100, L500.4050 ####[facility] [address] [place], [address] T PROT 5.1 g/dL Low 5.9-8.4 [facility] Comment on above: Performed By: #### L 100.0100, L500.4050 ####[facility] [address] [place], [address] Urea nitrogen [Mass/Vol] 18 mg/dL Normal 4-19 [facility] Comment on above: Performed By: #### L 100.0100, L500.4050 ####[facility] [address] [place], [address] ALB Normal 3.4-4.8 [facility] Comment on above: Result Comment: DUPL ICATE Performed By: #### L 500.4050, L100.0100 #### [facility] [address] [place], [address] ALK PHOS Normal 40-129 [facility] Comment on above: Result Comment: DUPL ICATE Performed By: #### L 500.4050, L100.0100 #### [facility] [address] [place], [address] ALT Normal <=46 [facility] Comment on above: Result Comment: DUPL ICATE Performed By: #### L 500.4050, L100.0100 #### [facility] [address] [place], [address] AST Normal <=37 [facility] Comment on above: Result Comment: DUPL ICATE Performed By: #### L 500.4050, L100.0100 #### [facility] [address] [place], [address] BUN Normal 4-19 [facility] Comment on above: Result Comment: DUPL ICATE Performed By: #### L 500.4050, L100.0100 #### [facility] [address] [place], [address] BUN/CRE Normal 10-20 [facility] Comment on above: Result Comment: DUPL ICATE Performed By: #### L 500.4050, L100.0100 #### [facility] [address] [place], [address] Calcium Normal 7.6-11.0 [facility] Comment on above: Result Comment: DUPL ICATE Performed By: #### L 500.4050, L100.0100 #### [facility] [address] [place], [address] CL Normal 98-108 [facility] Comment on above: Result Comment: DUPL ICATE Performed By: #### L 500.4050, L100.0100 #### [facility] [address] [place], [address] CO2 Normal 21.0-32.0 [facility] Comment on above: Result Comment: DUPL ICATE Performed By: #### L 500.4050, L100.0100 #### [facility] [address] [place], [address] CREAT,SERUM Normal 0.70-1.20 [facility] Comment on above: Result Comment: DUPL ICATE Performed By: #### L 500.4050, L100.0100 #### [facility] [address] [place], [address] eGFR Normal >60 [facility] Comment on above: Result Comment: DUPL ICATE Performed By: #### L 500.4050, L100.0100 #### [facility] [address] [place], [address] GAP Normal 5-15 [facility] Comment on above: Result Comment: DUPL ICATE Performed By: #### L 500.4050, L100.0100 #### [facility] [address] [place], [address] GLU Normal 70-99 [facility] Comment on above: Result Comment: DUPL ICATE Performed By: #### L 500.4050, L100.0100 #### [facility] [address] [place], [address] Potassium Normal 3.3-5.1 [facility] Comment on above: Result Comment: DUPL ICATE Performed By: #### L 500.4050, L100.0100 #### [facility] [address] [place], [address] T BILI Normal 0.00-1.30 [facility] Comment on above: Result Comment: DUPL ICATE Performed By: #### L 500.4050, L100.0100 #### [facility] [address] [place], [address] T PROT Normal 5.9-8.4 [facility] Comment on above: Result Comment: DUPL ICATE Performed By: #### L 500.4050, L100.0100 #### [facility] [address] [place], [address] Comprehensive Metabolic Profil Normal 133-145 [facility] Comment on above: Result Comment: DUPL ICATE Performed By: #### L 500.4050, L100.0100 #### [facility] [address] [place], [address] Laboratory - Chemistry and C hemistry - challengeOrdered By: Betito Avendano on 08-08-2024 AST [Catalytic activity/Vol] 15 U/L <38 [facility] Serum globulin measurementOr dered By: Betito Avendano on 08-08-2024 Globulin (S) [Mass/Vol] 2.4 g/dL 2.2-4.2 [facility] Serum or plasma alanine fuchs otransferase (ALT) measurementOrdered By: Betito Avendano on 08-08-2024 ALT [Catalytic activity/Vol] 7 U/L <47 [facility] Serum or plasma albumin arnie urement (mass/volume)Ordered By: Betito Avendano on 08-08-2024 Albumin [Mass/Vol] 2.7 g/dL Low 3.4-4.8 [facility] Serum or plasma albumin/glob ulin mass ratioOrdered By: Betito Avendano on 08-08-2024 Albumin/Globulin [Mass ratio] 1.1 {ratio} 0.9-2.4 [facility] Serum or plasma alkaline sherice sphatase measurementOrdered By: Betito Avendano on 08-08-2024 ALP [Catalytic activity/Vol] 59 U/L 40-129 [facility] Total proteinOrdered By: John Avendano on 08-08-2024 Protein [Mass/Vol] 5.1 g/dL Low 5.9-8.4 [facility] Abdomen Single Viewon 05-05- 2025 Abdomen Single View [facility] Imaging Services [address] [place], [place] [address] Abdomen Single View MR#: [id number] Acct: [id number] Name: LAINE GARCIA Rep #: [id number] : 1955 M 69 From: Lebron Burrell MD PCP: Dr. Dante Gurrola MD Status: ADM IN Study: Abdomen Single View Date of Exam: 08/07/24 Exam# [id number] Ordering Dr: Betito Avendano DO PROCEDURE: ABDOMEN [...] Dr. Dante Gurrola MD; Betito Avendano DO Residential Mortgage Underwriter: Signed Normal [facility] Abdomen Single View (Portabl e)on 08-07-2024 Abdomen Single View (Portable) [facility] Imaging Services [address] [place], [place] [address] Abdomen Single View (Portable) MR#: [id number] Acct: [id number] Name: LAINE GARCIA Rep #: [id number] : 1955 M 69 From: Lebron Burrell MD PCP: Dr. Dante Gurrola MD Status: ADM IN Study: Abdomen Single View (Portable) Date of Exam: 0 08/07/24 Exam# [id number] Ordering Dr: Betito Avendano DO PROCEDURE: ABDOMEN [...] Dr. Dante Gurrola MD; Betito Avendano DO Residential Mortgage Underwriter: Signed Normal [facility] Abdomen/Pelvis W IV Cont ONL Yon 08-07-2024 Abdomen/Pelvis W IV Cont ONLY [facility] Imaging Services [address] [place], [place] [address] Abdomen/Pelvis W IV Cont ONLY MR#: [id number] Acct: [id number] Name: LAINE GARCIA Ned Rep #: [id number] : 1955 69 From: Joshua guevara MD PCP: Dr. Dante Gurrola MD Status: ADM IN Study: Abdomen/Pelvis W IV Cont ONLY Date of Exam: Exam# [id number] Ordering Dr: Betito Avendano DO PROCEDURE: ABDOMEN/PELVIS [...] the abdomen and pelvis. Reading Location: [facility] CC: Dr. Dante Gurrola MD; Betito Avendano, Residential Mortgage Underwriter: Signed Normal [facility] Activated partial thrombopla stin time (aPTT) in platelet poor plasma by coagulation aOrdered By: Artemio Winchester on 08-07-2024 aPTT Coag (PPP) [Time] 33.7 s 24.1-36.2 [facility] CBC W/Diff, Automatedon Absolute Lymph 0.34 X10 3/uL Low 0.83-4.51 [facility] Comment on above: Performed By: #### L 100.0600 #### [facility] [address] [place], [address] Absolute Neut 13.6 X10 3/uL High 2.0-7.7 [facility] Comment on above: Performed By: #### L 100.0600 #### [facility] [address] [place], [address] Basophils/100 WBC (Bld) 0.1 % Normal 0-1 [facility] Comment on above: Performed By: #### L 100.0600 #### [facility] [address] [place], [address] Eosinophils/100 WBC (Bld) 0.0 % Normal 0-5 [facility] Comment on above: Performed By: #### L 100.0600 #### [facility] [address] [place], [address] Erythrocyte distribution width (RBC) [Ratio] 14.8 % High 11.6-14.6 [facility] Comment on above: Performed By: #### L 100.0600 #### [facility] [address] [place], [address] Hematocrit (Bld) [Volume fraction] 30.2 % Low 40-54 [facility] Comment on above: Performed By: #### L 100.0600 #### [facility] [address] [place], [address] Hemoglobin (Bld) [Mass/Vol] 10.3 g/dL Low 13.0-16.5 [facility] Comment on above: Performed By: #### L 100.0600 #### [facility] [address] [place], [address] IG% 1.000 High 0.0-0.9 [facility] Comment on above: Result Comment: IG% - Immature Granulocytes (promyelocytes, myelocytes and metamyelocytes) > 1% indicates that a LEFT SHIFT is Present. Performed By: #### L 100.0600 #### [facility] [address] [place], [address] Lymphocytes/100 WBC (Bld) 2.3 % Low 19-41 [facility] Comment on above: Performed By: #### L 100.0600 #### [facility] [address] [place], [address] MCH (RBC) [Entitic mass] 30.0 pg Normal 27.0-32.0 [facility] Comment on above: Performed By: #### L 100.0600 #### [facility] [address] [place], [address] MCHC (RBC) [Mass/Vol] 34.1 g/dL Normal 32-36 [facility] Comment on above: Performed By: #### L 100.0600 #### [facility] [address] [place], [address] MCV (RBC) [Entitic vol] 88.0 fL Normal 80-94 [facility] Comment on above: Performed By: #### L 100.0600 #### [facility] [address] [place], [address] Monocytes/100 WBC (Bld) 3.9 % Normal 0-10 [facility] Comment on above: Performed By: #### L 100.0600 #### [facility] [address] [place], [address] Neutrophils/100 WBC (Bld) 92.7 % High 47-70 [facility] Comment on above: Performed By: #### L 100.0600 #### [facility] [address] [place], [address] Nucleated RBC (Bld) [#/Vol] 0 10*3/uL Normal 0-5 [facility] Comment on above: Performed By: #### L 100.0600 #### [facility] [address] [place], [address] Platelet mean volume (Bld) [Entitic vol] 9.2 fL Normal 6.2-12.0 [facility] Comment on above: Performed By: #### L 100.0600 #### [facility] [address] [place], [address] Platelets (Bld) [#/Vol] 214 10*3/uL Normal 150-450 [facility] Comment on above: Performed By: #### L 100.0600 #### [facility] [address] [place], [address] RBC (Bld) [#/Vol] 3.43 10*6/uL Low 4.6-6.2 [facility] Comment on above: Performed By: #### L 100.0600 #### [facility] [address] [place], [address] RDW SD 46.8 fl High 35.1-43.9 [facility] Comment on above: Performed By: #### L 100.0600 #### [facility] [address] [place], [address] WBC (Bld) [#/Vol] 14.6 10*3/uL High 4.4-11.0 [facility] Comment on above: Performed By: #### L 100.0600 #### [facility] [address] [place], [address] Comprehensive Metabolic Prof [facility] 08-07-2024 Albumin [Mass/Vol] 3.0 g/dL Low 3.4-4.8 [facility] Comment on above: Performed By: #### L 100.0600 #### [facility] [address] [place], [address] Albumin/Globulin [Mass ratio] 1.3 {ratio} Normal 0.9-2.4 [facility] Comment on above: Performed By: #### L 100.0600 #### [facility] [address] [place], [address] ALK PHOS 60 U/L Normal 40-129 [facility] Comment on above: Performed By: #### L 100.0600 #### [facility] [address] [place], [address] ALT [Catalytic activity/Vol] 6 U/L Normal <=46 [facility] Comment on above: Performed By: #### L 100.0600 #### [facility] [address] [place], [address] AST [Catalytic activity/Vol] 14 U/L Normal <=37 [facility] Comment on above: Performed By: #### L 100.0600 #### [facility] [address] [place], [address] Bilirubin [Mass/Vol] 0.78 mg/dL Normal 0.00-1.30 [facility] Comment on above: Performed By: #### L 100.0600 #### [facility] [address] [place], [address] BUN/CRE 26.1 RATIO High 10-20 [facility] Comment on above: Performed By: #### L 100.0600 #### [facility] [address] [place], [address] Calcium [Mass/Vol] 7.8 mg/dL Normal 7.6-11.0 [facility] Comment on above: Performed By: #### L 100.0600 #### [facility] [address] [place], [address] Chloride [Moles/Vol] 107 mmol/L Normal 98-108 [facility] Comment on above: Performed By: #### L 100.0600 #### [facility] [address] [place], [address] CO2 [Moles/Vol] 21.5 mmol/L Normal 21.0-32.0 [facility] Comment on above: Performed By: #### L 100.0600 #### [facility] [address] [place], [address] Creatinine [Mass/Vol] 0.68 mg/dL Low 0.70-1.20 [facility] Comment on above: Performed By: #### L 100.0600 #### [facility] [address] [place], [address] ECRCL 88.72 ml/min Normal 50-250 [facility] Comment on above: Performed By: #### L 100.0600 #### [facility] [address] [place], [address] GAP 9 Normal 5-15 [facility] Comment on above: Performed By: #### L 100.0600 #### [facility] [address] [place], [address] GFR/1.73 sq M.predicted among non-blacks MDRD (S/P/Bld) [Vol rate/Area] 100 mL/min/{1.73_m2} Normal >60 [facility] Comment on above: Result Comment: mL/m in/1.73m2 CKD-EPI Creatinine Equation (2020) Performed By: #### L 100.0600 #### [facility] [address] [place], [address] Globulin (S) [Mass/Vol] 2.3 g/dL Normal 2.2-4.2 [facility] Comment on above: Performed By: #### L 100.0600 #### [facility] [address] [place], [address] Glucose [Mass/Vol] 142 mg/dL High 70-99 [facility] Comment on above: Performed By: #### L 100.0600 #### [facility] [address] [place], [address] Potassium [Moles/Vol] 3.3 mmol/L Normal 3.3-5.1 [facility] Comment on above: Performed By: #### L 100.0600 #### [facility] [address] [place], [address] Sodium [Moles/Vol] 138 mmol/L Normal 133-145 [facility] Comment on above: Performed By: #### L 100.0600 #### [facility] [address] [place], [address] T PROT 5.3 g/dL Low 5.9-8.4 [facility] Comment on above: Performed By: #### L 100.0600 #### [facility] [address] [place], [address] Urea nitrogen [Mass/Vol] 18 mg/dL Normal - [facility] Comment on above: Performed By: #### L 100.0600 #### [facility] [address] [place], [address] EGD Reporton 08-07-2024 EGD Report [facility] Medical Records Department [address] [place] [address] EGD Report MR#: [id number] Acct: [id number] Name: LAINE GARCIA Rep #: [id number] : 1955 69 From: Betito Avendano DO [...] five hemostatic clips were successfully placed. 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 There was no bleeding at the end of the procedure. Biopsies were taken with a cold forceps for histology. Verification of patient identification for the specimen was done. Estimated blood loss was minimal. Impression: - Normal esophagus. - Normal stomach. - Oozing duodenal ulcers with a visible vessel. Injected. Treated with argon plasma coagulation (APC). Prosthesis placed. Clips were placed. 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 - No specimens collected. Recommendation: - Return patient to ICU for ongoing care. - NPO. - Continue present medications. - Await pathology results. Procedure Code(s): --- Professional --- 15518, Small intestinal endoscopy, enteroscopy beyond second portion of duodenum, not including ileum; with transendoscopic stent placement (includes predilation) 89327, 59, Small intestinal endoscopy, enteroscopy beyond second portion of duodenum, not including ileum; with control of bleeding (eg, injection, bipolar cautery, unipolar cautery, laser, heater probe, stapler, plasma storm sash maker) 80875, 51, Small intestinal endoscopy, enteroscopy beyond second portion of duodenum, not including ileum; with biopsy, single or multiple 44170, 26, Intraluminal dilation of strictures and/or obstructions (eg, esophagus), radiological supervision and interpretation 32448, Unlisted procedure (more content not included)... Normal [facility] Fluoroscopy 1 Hr or Lesson 0 08-07-2024 Fluoroscopy 1 Hr or Less [facility] Imaging Services [address] [place] [address] 222491 Fluoroscopy 1 Hr or Less MR#: [id number] Acct: [id number] Name: LAINE GARCIA Rep #: [id number] : 1955 M 69 From: Teddy bustamante MD PCP: Dr. Dante Gurrola MD Status: DIS IN Study: Fluoroscopy 1 Hr or Less Date of Exam: Exam# [id number] Ordering Dr: Betito Avendano DO PROCEDURE: FLUOROSCOPY 1 HR OR LESS 08/07/2024 REASON FOR EXAM: Duodenal stenting. TECHNIQUE: Pharmaceutical Physician performed stenting of the duodenum. 3.3 seconds of fluoroscopy. 0.74 mGy. COMPARISON: None FINDINGS: Intraoperative fluoroscopic imaging provided for duodenal stenting. RAD/Fluoroscopy 1 Hr or Less IMPRESSION: Intraoperative fluoroscopic imaging provided for duodenal stenting. Reading Location: [facility] CC: Dr. Dante Gurrola MD; Betito Avendano DO Residential Mortgage Underwriter: Signed Normal [facility] Immunohistochemical Stainson 08-07-2024 Immunohistochemical Stains ---- Patient Age/Sex Location Account Attending Physician ---- LAINE GARCIA 69/M [facility] [id number] Dr. Brandie Spears DO ---- Specimen: [id number] Received: 08/07/24 Status: HAYDER Burrell Num: [id number] Spec Type: EGD BIOPSY Subm Dr: Betito Avendano DO HEADER OPERATION: EGD with clip placement, hemostasis and biopsy PRE-OP DIAGNOSIS: Duodenal ulcer, abdominal pain, orthostatic hypotension TISSUE SUBMITTED: A- Duodenal ulcer biopsy ---- MICROSCOPIC DIAGNOSIS A. Small bowel, duodenum, ulcer, biopsy: * Ulceration with acute inflammation, Primitivo [...] name, date of , and duodenal ulcer biopsy are multiple pavon-pink fragments of mucosal tissue measuring 0.8 x 0.7 x 0.2 cm in aggregate. Submitted in toto in A1. [facility] 08-08-2024 CPT:40543, 95304 ---- ADDENDUM Addendum 1 Entered: 08/15/24-3452 This addendum is to report the result of the IHC stain: IHC is negative for H pylori organisms. All matched controls reacted appropriately. ---- Patient Age/Sex Location Account Attending Physician ---- LAINE GARCIA 69/M [facility] [id number] Dr. Brandie Spears DO ---- ADDENDUM (Continued) These tests were developed and their performance characteristics determined by [facility]. They may not have been cleared or approved by the U.S. Food and Drug Administration. The FDA has determined that such clearance or approval is not necessary.??? The above immunohistochemical/du alISH???markers are ordered and reviewed by the Pathologist. Addendum Signed (signature on file) Dr. Lizzy Schumacher MD 08/15/24 1540 ---- ---- Patient Age/Sex Location Account Attending Physician ---- LAINE GARCIA 69/M [facility] [id number] Dr. Brandie Spears DO ---- Signed (signature on file) Dr. Lizzy Schumacher MD 08/15/24 1004 ---- Normal [facility] Comment on above: Performed By: #### P MEHRAN MONTILLA ####[facility] [address] [facility], [address] International normalized rat io (INR) calculationOrdered By: Artemio Winchester on 08-07-2024 INR Coag (Bld) [Relative time] 1.3 {INR} [facility] MR/POSTOP.ANEon 08-07-2024 MR[facility]OP[facility] Medical Records Department [address] [place] [address] Anesthesia Postop Eval I 08/07/24 185 MR#: [id number] Acct: [id number] Name: LAINE GARCIA Rep #: [id number] : 1955 69 From: Artemio Winchester MD PCP: Dr. Dante Gurrola MD Status:ADM IN Y Race: C Location: [facility] [id number] Anesthesia: Postop Eval I Current Vital Signs [...] MD Cosigner Signature: Date CC: Signed Normal [facility] MR/GIKSCWXG3wy 08-07-2024 [facility] Medical Records Department [address] [place] [address] Anesthesia Postop Eval II 08/07/241856 MR#: [id number] Acct: [id number] Name: LAINE GARCIA Rep #: [id number] : 1955 69 From: Artemio Winchester MD PCP: Dr. Dante Gurrola MD Status:ADM IN Y Race: C Location: VT3 [id number] Anesthesia Postop Eval I Sum Postop Eval [...] time. Complications Anesthesia Complication: No 08/07/24 1858 Date Artemio Winchester MD Cosigner Signature: Date CC: Signed Normal [facility] Partial Thromboplast Timeon 08-07-2024 aPTT Coag (Bld) [Time] 33.7 s Normal 24.1-36.2 [facility] Comment on above: Performed By: #### L 300.3900, L300.4310 ####[facility] [address] [place], [address] Prothrombin Time w/INRon INR Coag (PPP) [Relative time] 1.3 {INR} Normal [facility] Comment on above: Performed By: #### L 300.3900, L300.4310 ####[facility] [address] [place], [address] PT Coag (PPP) [Time] 16.0 s High 11.7-14.9 [facility] Comment on above: Performed By: #### L 300.3900, L300.4310 ####[facility] [address] [place], [address] Prothrombin timeOrdered By: Artemio Winchester on 08-07-2024 PT Coag (PPP) [Time] 16.0 s High 11.7-14.9 [facility] Surgery Specimen Level Jose Luis 08-07-2024 Surgery Specimen Level IV ---- Patient Age/Sex Location Account Attending Physician ---- LAINE GARCIA 69/M [facility] [id number] Dr. Brandie Spears DO ---- Specimen: [id number] Received: 08/07/24 Status: HAYDER Burrell Num: [id number] Spec Type: EGD BIOPSY Subm Dr: Betito Avendano DO HEADER OPERATION: EGD with clip placement, hemostasis and biopsy PRE-OP DIAGNOSIS: Duodenal ulcer, abdominal pain, orthostatic hypotension TISSUE SUBMITTED: A- Duodenal ulcer biopsy ---- MICROSCOPIC DIAGNOSIS A. Small bowel, duodenum, ulcer, biopsy: * Ulceration with acute inflammation, Primitivo [...] name, date of , and duodenal ulcer biopsy are multiple pavon-pink fragments of mucosal tissue measuring 0.8 x 0.7 x 0.2 cm in aggregate. Submitted in toto in A1. [facility] 08-08-2024 CPT:63604, 55891 ---- Patient Age/Sex Location Account Attending Physician ---- LAINE GARCIA 69/M [facility] [id number] Dr. Brandie Spears DO ---- Signed (signature on file) Dr. Lizzy Schumacher MD 08/15/24 1004 ---- Normal [facility] Comment on above: Performed By: #### P ROLDAN PSUIV ####[facility] [address] [place], [address] BRCon 08-06-[address] [facility] Comment on above: Result Comment: [id number] OP RC TRANSFUSED 08/06/242237 Performed By: #### B RC ####[facility] [address] [place], [address] Result Comment: [id number] OP RC TRANSFUSED 08/07/24 0502 [id number] OP RC TRANSFUSED 08/07/24 0153 Performed By: #### L 500.4050, L100.0100 #### [facility] [address] [place], [address] Basic Metabolic Profile (BMP )on 08-06-2024 BUN/CRE 42.7 RATIO High 10-20 [facility] Comment on above: Performed By: #### L 500.4050, L100.0100 #### [facility] [address] [place], [address] Calcium [Mass/Vol] 7.5 mg/dL Low 7.6-11.0 [facility] Comment on above: Performed By: #### L 500.4050, L100.0100 #### [facility] [address] [place], [address] Chloride [Moles/Vol] 110 mmol/L High 98-108 [facility] Comment on above: Performed By: #### L 500.4050, L100.0100 #### [facility] [address] [place], [address] CO2 [Moles/Vol] 20.9 mmol/L Low 21.0-32.0 [facility] Comment on above: Performed By: #### L 500.4050, L100.0100 #### [facility] [address] [place], [address] Creatinine [Mass/Vol] 0.67 mg/dL Low 0.70-1.20 [facility] Comment on above: Performed By: #### L 500.4050, L100.0100 #### [facility] [address] [place], [address] ECRCL 88.72 ml/min Normal 50-250 [facility] Comment on above: Performed By: #### L 500.4050, L100.0100 #### [facility] [address] [place], [address] GAP 9 Normal 5-15 [facility] Comment on above: Performed By: #### L 500.4050, L100.0100 #### [facility] [address] [place], [address] GFR/1.73 sq M.predicted among non-blacks MDRD (S/P/Bld) [Vol rate/Area] 101 mL/min/{1.73_m2} Normal >60 [facility] Comment on above: Result Comment: mL/m in/1.73m2 CKD-EPI Creatinine Equation (2020) Performed By: #### L 500.4050, L100.0100 #### [facility] [address] [place], [address] Glucose [Mass/Vol] 137 mg/dL High 70-99 [facility] Comment on above: Performed By: #### L 500.4050, L100.0100 #### [facility] [address] [place], [address] Potassium [Moles/Vol] 3.4 mmol/L Normal 3.3-5.1 [facility] Comment on above: Performed By: #### L 500.4050, L100.0100 #### [facility] [address] [place], [address] Sodium [Moles/Vol] 140 mmol/L Normal 133-145 [facility] Comment on above: Performed By: #### L 500.4050, L100.0100 #### [facility] [address] [place], [address] Urea nitrogen [Mass/Vol] 28 mg/dL High 4-19 [facility] Comment on above: Performed By: #### L 500.4050, L100.0100 #### [facility] [address] [place], [address] Blood manual differential co mment interpretation (narrative result)Ordered By: Derrick Yadav on 08-06-2024 Manual differential comment Ramón (Bld) [Interp] SCANNED [facility] CBC W/Diff, Automatedon SMEAR COMMENT SCANNED Normal [facility] Comment on above: Performed By: #### L 500.4050, L100.0100 #### [facility] [address] [place], [address] HH, Hemoglobin AND Hematocri ton 08-06-2024 Hematocrit (Bld) [Volume fraction] 20.2 % Low 40-54 [facility] Comment on above: Performed By: #### L 100.0600 #### [facility] [address] [place], [address] Hemoglobin (Bld) [Mass/Vol] 6.7 g/dL Low 13.0-16.5 [facility] Comment on above: Performed By: #### L 100.0600 #### [facility] [address] [place], [address] Type AND Screenon 08-06-2024 ABO and Rh group Nom (Bld) Blood group O Rh(D) positive Normal [facility] Comment on above: Order Comment: CMV N [...] be transfused? NIs the patient having/had surgery? Derik [id number] Performed By: #### L 500.4050, L100.0100 #### [facility] [address] [facility] [place], [place], [address] 12 Lead EKGon 08-05-2024 12 Lead EKG [facility] Cardiovascular Services [address] [place] [address] 12 Lead EKG 08/05/24 1331 MR#: [id number] Acct: [id number] Name: LAINE GARCIA Rep #: [id number] : 1955 69 From: Velasquez Vega MD Attending Dr: Dr. Brandie Spears, DO Status: DIS I N Ordering Dr: Wally Valdez MD Date: 08/05/24 Location: [facility] Sex: M C Admitted: 08/05/24 Test [...] Nonspecific ST abnormality Abnormal ECG Confirmed by Velasquez Vega ([id number]), film and video editor RACHANA ASTORGA ([id number]) on 08/11/2024 12:55:07 PM Referred By: AR Confirmed By: Velasquez Vega 08/11/24 4564 Date Velasquez Vega MD CC: Dr. Wally Valdez MD; Dr. Dante Gurrola MD; Dr. Brandie Spears, DO Signed Normal [facility] Abdomen/Pelvis W IV Cont ONL Yon 08-05-2024 Abdomen/Pelvis W IV Cont ONLY [facility] Imaging Services [address] [place] [address] Abdomen/Pelvis W IV Cont ONLY MR#: [id number] Acct: [id number] Name: LAINE GARCIA Rep #: [id number] : 1955 M 69 From: Domenica Smiley nd, MD PCP: Rachana [place], OIL BURNER-C Status: REG ER Study: Abdomen/Pelvis W IV Cont ONLY Date of Exam: Exam# [id number] Ordering Dr: Wally Valdez MD PROCEDURE: ABDOMEN/PELVIS [...] Otherwise unremarkable CT abdomen pelvis. Reading Location: [facility] CC: NERI Birmingham; Dr. Wally Valdez MD Residential Mortgage Underwriter: Signed Normal [facility] Basic Metabolic Profile (BMP )on 08-05-2024 BUN/CRE 62.8 RATIO High 10-20 [facility] Comment on above: Performed By: #### L 500.2500, L100.0100 #### [facility] [address] [place], [address] Calcium [Mass/Vol] 8.3 mg/dL Normal 7.6-11.0 [facility] Comment on above: Performed By: #### L 500.2500, L100.0100 #### [facility] [address] [place], [address] Chloride [Moles/Vol] 107 mmol/L Normal 98-108 [facility] Comment on above: Performed By: #### L 500.2500, L100.0100 #### [facility] [address] [place], [address] CO2 [Moles/Vol] 23.8 mmol/L Normal 21.0-32.0 [facility] Comment on above: Performed By: #### L 500.2500, L100.0100 #### [facility] [address] [place], [address] Creatinine [Mass/Vol] 0.76 mg/dL Normal 0.70-1.20 [facility] Comment on above: Performed By: #### L 500.2500, L100.0100 #### [facility] [address] [place], [address] ECRCL 91.51 ml/min Normal 50-250 [facility] Comment on above: Performed By: #### L 500.2500, L100.0100 #### [facility] [address] [place], [address] GAP 7 Normal 5-15 [facility] Comment on above: Performed By: #### L 500.2500, L100.0100 #### [facility] [address] [place], [address] GFR/1.73 sq M.predicted among non-blacks MDRD (S/P/Bld) [Vol rate/Area] 97 mL/min/{1.73_m2} Normal >60 [facility] Comment on above: Result Comment: mL/m in/1.73m2 CKD-EPI Creatinine Equation (2020) Performed By: #### L 500.2500, L100.0100 #### [facility] [address] [place], [address] Glucose [Mass/Vol] 180 mg/dL High 70-99 [facility] Comment on above: Performed By: #### L 500.2500, L100.0100 #### [facility] [address] [place], [address] Potassium [Moles/Vol] 4.1 mmol/L Normal 3.3-5.1 [facility] Comment on above: Performed By: #### L 500.2500, L100.0100 #### [facility] [address] [place], [address] Sodium [Moles/Vol] 138 mmol/L Normal 133-145 [facility] Comment on above: Performed By: #### L 500.2500, L100.0100 #### [facility] [address] [place], [address] Urea nitrogen [Mass/Vol] 48 mg/dL High 4-19 [facility] Comment on above: Performed By: #### L 500.2500, L100.0100 #### [facility] [address] [place], [address] Bilirubin Test strip Ql (U)O rdered By: Wally Valdez on 08-05-2024 Bilirubin Ql (U) Negative Negative [facility] CBC W/Diff, Automatedon Absolute Lymph 0.76 X10 3/uL Low 0.83-4.51 [facility] Comment on above: Performed By: #### L 500.2500, L100.0100 #### [facility] [address] [place], [address] Absolute Neut 10.8 X10 3/uL High 2.0-7.7 [facility] Comment on above: Performed By: #### L 500.2500, L100.0100 #### [facility] [address] [place], [address] Basophils/100 WBC (Bld) 0.3 % Normal 0-1 [facility] Comment on above: Performed By: #### L 500.2500, L100.0100 #### [facility] [address] [place], [address] Eosinophils/100 WBC (Bld) 0.2 % Normal 0-5 [facility] Comment on above: Performed By: #### L 500.2500, L100.0100 #### [facility] [address] [place], [address] Erythrocyte distribution width (RBC) [Ratio] 14.4 % Normal 11.6-14.6 [facility] Comment on above: Performed By: #### L 500.2500, L100.0100 #### [facility] [address] [place], [address] Hematocrit (Bld) [Volume fraction] 26.8 % Low 40-54 [facility] Comment on above: Performed By: #### L 500.2500, L100.0100 #### [facility] [address] [place], [address] Hemoglobin (Bld) [Mass/Vol] 8.9 g/dL Low 13.0-16.5 [facility] Comment on above: Performed By: #### L 500.2500, L100.0100 #### [facility] [address] [place], [address] IG% 0.700 Normal 0.0-0.9 [facility] Comment on above: Result Comment: IG% - Immature Granulocytes (promyelocytes, myelocytes and metamyelocytes) > 1% indicates that a LEFT SHIFT is Present. Performed By: #### L 500.2500, L100.0100 #### [facility] [address] [place], [address] Lymphocytes/100 WBC (Bld) 6.3 % Low 19-41 [facility] Comment on above: Performed By: #### L 500.2500, L100.0100 #### [facility] [address] [place], [address] MCH (RBC) [Entitic mass] 30.2 pg Normal 27.0-32.0 [facility] Comment on above: Performed By: #### L 500.2500, L100.0100 #### [facility] [address] [place], [address] MCHC (RBC) [Mass/Vol] 33.2 g/dL Normal 32-36 [facility] Comment on above: Performed By: #### L 500.2500, L100.0100 #### [facility] [address] [place], [address] MCV (RBC) [Entitic vol] 90.8 fL Normal 80-94 [facility] Comment on above: Performed By: #### L 500.2500, L100.0100 #### [facility] [address] [place], [address] Monocytes/100 WBC (Bld) 3.2 % Normal 0-10 [facility] Comment on above: Performed By: #### L 500.2500, L100.0100 #### [facility] [address] [place], [address] Neutrophils/100 WBC (Bld) 89.3 % High 47-70 [facility] Comment on above: Performed By: #### L 500.2500, L100.0100 #### [facility] [address] [place], [address] Nucleated RBC (Bld) [#/Vol] 0 10*3/uL Normal 0-5 [facility] Comment on above: Performed By: #### L 500.2500, L100.0100 #### [facility] [address] [place], [address] Platelet mean volume (Bld) [Entitic vol] 9.7 fL Normal 6.2-12.0 [facility] Comment on above: Performed By: #### L 500.2500, L100.0100 #### [facility] [address] [place], [address] Platelets (Bld) [#/Vol] 281 10*3/uL Normal 150-450 [facility] Comment on above: Performed By: #### L 500.2500, L100.0100 #### [facility] [address] [place], [address] RBC (Bld) [#/Vol] 2.95 10*6/uL Low 4.6-6.2 [facility] Comment on above: Performed By: #### L 500.2500, L100.0100 #### [facility] [address] [place], [address] RDW SD 47.8 fl High 35.1-43.9 [facility] Comment on above: Performed By: #### L 500.2500, L100.0100 #### [facility] [address] [place], [address] WBC (Bld) [#/Vol] 12.1 10*3/uL High 4.4-11.0 [facility] Comment on above: Performed By: #### L 500.2500, L100.0100 #### [facility] [address] [place], [address] EGD Reporton 08-05-2024 EGD Report [facility] Medical Records Department [address] [place] [address] EGD Report MR#: [id number] Acct: [id number] Name: LAINE GARCIA Rep #: [id number] : 1955 69 From: Betito Avendano DO PCP: NERI Galaviz Status:ADM IN Patient Name: Laine Garcia Procedure [...] on 08/07/2024 Procedure Code(s): --- Professional --- 64829, Small intestinal endoscopy, enteroscopy beyond second portion of duodenum, not including ileum; with ablation of tumor(s), polyp(s), or other lesion(s) not amenable to removal by hot biopsy forceps, bipolar cautery or snare technique 33886, 59,51, Small intestinal endoscopy, enteroscopy beyond second portion of duodenum, not including ileum; with control of bleeding (eg, injection, bipolar cautery, unipolar cautery, laser, heater probe, stapler, plasma 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 Normal [facility] Emergency Department Summary on 08-05-2024 Emergency Department Summary [facility] Medical Records Department [address] [place] [address] Emergency Department Summary 08/05/24 MR#: [id number] Acct: [id number] Name: LAINE GARCIA Rep #: [id number] : 1955 69 From: Wally Valdez MD PCP: Rachana Birmingham OIL BURNER-Eliana Status:REG ER Location: ED HPI History of [...] has had syncope in the past. [facility] Home Medications ???Medication ???Instructions ???Recorded ???Last Taken [...] to obtaining)] (more content not included)... Normal [facility] H AND P Exam - Hospitaliston 08-05-2024 H&P Exam - Hospitalist [facility] Medical Records Department [address] [place] [address] H P Exam - Hospitalist 08/05/24 1543 MR#: [id number] Acct: [id number] Name: LAINE GARCIA Rep #: [id number] : 1955 69 From: Derrick Yadav MD PCP: Rachana [place], OIL BURNER-C Status:ADM IN Location: MS3 [id number] HPI - General General Date of Admission: [...] and his vital signs are all stable. [facility] Medical History (Updated 08/05/24 @ 15:52 [...] Rate [L (more content not included)... Normal [facility] HH, Hemoglobin AND Hematocri ton 08-05-2024 Hematocrit (Bld) [Volume fraction] 24.6 % Low 40-54 [facility] Comment on above: Performed By: #### L 500.4050, L100.0100 #### [facility] [address] [facility], [address] Hemoglobin (Bld) [Mass/Vol] 8.1 g/dL Low 13.0-16.5 [facility] Comment on above: Performed By: #### L 500.4050, L100.0100 #### [facility] [address] [place] [place], [address] Ketones Test strip Ql (U)Ord ered By: Wally Valdez on 08-05-2024 Ketones Ql (U) 5 mg/dl High Negative [facility] MR/CON.PCM.GIon 08-05-2024 MR/CON.PCM.GI [facility] Medical Records Department [address] [facility] [place] [address] Consultation - GI 08/05/24 1732 MR#: [id number] Acct: [id number] Name: LAINE GARCIA Rep #: [id number] : 1955 69 From: Betito Friend DO PCP: Rachana [place], OIL BURNER-C Status:ADM IN Location: [facility] [id number] HPI Consult Data Date of Consult: 08/05/24 [...] represent duodenitis or non perforated duodenal ulcer. [facility] Medical History History of DVT (deep [...] 89.3 H, Lymph % (Auto) 6.3 L, [place] % (Auto) 3.2, Eos % (Auto) 0.2, [...] 08/05/24 14:26 (more content not included)... Normal [facility] MR/POSTOP.ANEon 08-05-2024 MR/[facility]OP.[facility] Medical Records Department [address] [facility] [place] [address] Anesthesia Postop Eval I 08/05/241844 MR#: [id number] Acct: [id number] Name: LAINE GARCIA Rep #: [id number] : 1955 69 From: Naun Murrell MD PCP: Rachana [place] OIL BURNER-C Status:ADM IN Y Race: C Location: [place] [address] Anesthesia: Postop Eval I Current Vital Signs [...] Eval 1 completed: Yes 08/05/241844 Date Naun Murrell MD [facility] Signature: Date CC: Signed Normal [facility] MR/ADTPBRCP7nv 08-05-2024 MR/POSTOPAN2 [facility] Medical Records Department [address] [facility] [place] [address] Anesthesia Postop Eval II 08/05/241845 MR#: [id number] Acct: [id number] Name: LAINE GARCIA Rep #: [id number] : 1955 69 From: Naun Murrell MD PCP: Rachana [place], OIL BURNER-C Status:ADM IN Y Race: C Location: [place] [id number] Anesthesia Postop Eval I Sum Postop Eval [...] Pain Level: 0 nausea: No Vomiting: No 08/05/24 1846 Date Naun Murrell MD [facility] Signature: Date CC: Signed Normal [facility] Microscopic analysis of urin e for red blood cells (RBC)Ordered By: Wally Valdez on 08-05-2024 Microscopic analysis of urine for red blood cells (RBC) 0-5 SEEN /hpf 0-5 [facility] Mucus LM Ql (Urine sed)Order ed By: Wally Valdez on 08-05-2024 Mucus Ql (Urine sed) 0 SEEN /hpf [facility] Nitrite Test strip Ql (U)Ord ered By: Wally Valdez on 08-05-2024 Nitrite Ql (U) Negative Negative [facility] Protein Test strip Ql (U)Ord ered By: Wally Valdez on 08-05-2024 Protein Ql (U) 15 mg/dl High Negative [facility] Squamous epithelial cells de tection in urine sediment by light microscopyOrdered By: Wally Valdez on 08-05-2024 Epithelial cells.squamous LM Ql (Urine sed) 0 SEEN /hpf 0-5 [facility] Urinalysis, Completeon 08-05 BACTERIA RARE Normal None Seen [facility] Comment on above: Order Comment: CLEAN CATCH Performed By: #### L 100.0600 #### [facility] [address] [place], [address] RBC 0-5 SEEN Normal 0-5 [facility] Comment on above: Order Comment: CLEAN CATCH Performed By: #### L 100.0600 #### [facility] [address] [place], [address] WBC 0-5 SEEN Normal 0-5 [facility] Comment on above: Order Comment: CLEAN CATCH Performed By: #### L 100.0600 #### [facility] [address] [place], [address] EPI,SQUAMOUS 0 SEEN Normal 0-5 [facility] Comment on above: Order Comment: CLEAN CATCH Performed By: #### L 100.0600 #### [facility] [address] [place], [address] Mucus Ql (Urine sed) [address] [facility] Comment on above: Order Comment: CLEAN CATCH Performed By: #### L 100.0600 #### [facility] [address] [place], [address] Urine clarityOrdered By: Adelina Valdez on 08-05-2024 Clarity (U) Clear Clear [facility] Urine color determinationOrd ered By: Wally Valdez on 08-05-2024 Color (U) Yellow Yellow [facility] Urine glucose detectionOrder ed By: Wally Vinsonnatasha on 08-05-2024 Glucose Ql (U) Normal mg/dl Normal [facility] Urine leukocyte esterase det ection by dipstickOrdered By: Wally Alissonnatasha on 08-05-2024 Leukocyte esterase Test strip Ql (U) Negative Negative [facility] Urine pHOrdered By: Wally perez on 08-05-2024 pH (U) 5.0 [pH] 5.0 - 8.0 [facility] Urine sediment bacteria coun t by microscopy (number/high power field)Ordered By: Wally Valdez on 08-05-2024 Bacteria LM.HPF (Urine sed) [#/Area] RARE /hpf None Seen [facility] Urine specific gravity measu rementOrdered By: Wally Alissonnatasha on 08-05-2024 Specific gravity (U) [Rel density] 1.020 1.002-1.030 [facility] Urine urobilinogen measureme ntOrdered By: Wally Alissonnatasha on 08-05-2024 Urobilinogen Ql (U) Normal mg/dl Normal [facility] White blood cell countOrdere d By: Wally Alissonnatasha on 08-05-2024 White blood cell count 0-5 SEEN /hpf 0-5 [facility] Abdomen/Pelvis W IV Cont ONL Yon 05-06-2024 Abdomen/Pelvis W IV Cont ONLY [facility] Imaging Services [address] [place] [address] [id number] Abdomen/Pelvis W IV Cont ONLY MR#: [id number] Acct: [id number] Name: LAINE GARCIA Rep #: [id number] : 1955 M 69 From: Lebron Burrell MD PCP: Dr. Dante Gurrola MD Status: REG ER Study: Abdomen/Pelvis W IV Cont ONLY Date of Exam: Exam# [id number] Ordering Dr: Rah Navarro OIL BURNER-C PROCEDURE: ABDOMEN/PELVIS WITH IV CONTRAST REASON FOR [...] findings detailed above. Reading Location: [facility] CC: NERI Navarro; Dr. Dante Gurrola MD [employer]idential [employer] Underwriter: Signed Normal [facility] Absolute lymphocyte countOrd ered By: Rah Navarro on 05-06-2024 Lymphocytes Auto (Unsp spec) [#/Vol] 1.10 10*3/uL 0.83-4.51 [facility] Absolute neutrophil countOrd ered By: Rah Navarro on 05-06-2024 Neutrophils (Bld) [#/Vol] 6.3 10*3/uL 2.0-7.7 [facility] Albumin to globulin ratioOrd ered By: Rah Navarro on 05-06-2024 Albumin/Globulin [Mass ratio] 0.9 {ratio} 0.9-2.4 [facility] Automated lymphocyte count a s percentage of total leukocytesOrdered By: Rah Navarro on 05-06-2024 Lymphocytes/100 WBC Auto (Unsp spec) 13.2 % Low 19-41 [facility] Basophil percentageOrdered B y: Rah Kirstenkrishjeremiah on 05-06-2024 Basophils/100 WBC (Bld) 0.8 % 0-1 [facility] Bilirubin Test strip Ql (U)O rdered By: Rah Navarro on 05-06-2024 Bilirubin Ql (U) Negative Negative [facility] Bilirubin, totalOrdered By: Rah Navarro on 05-06-2024 Bilirubin [Mass/Vol] 0.40 mg/dL 0.20-1.00 [facility] Comment on above: For patients on eltr ombopag therapy, use of Dimension [place] TBIL is not recommended. Blood urea nitrogen (BUN)/cr eatinine ratioOrdered By: Rah Navarro on 05-06-2024 Urea nitrogen/Creatinine [Mass ratio] 31.7 mg/mg High 10-20 [facility] CBC W/Diff, Automatedon 02- Absolute Lymph 1.10 X10 3/uL Normal 0.83-4.51 [facility] Comment on above: Performed By: #### L 100.0600 #### [facility] [address] [place], [address] Absolute Neut 6.3 X10 3/uL Normal 2.0-7.7 [facility] Comment on above: Performed By: #### L 100.0600 #### [facility] [address] [place], [address] Basophils/100 WBC (Bld) 0.8 % Normal 0-1 [facility] Comment on above: Performed By: #### L 100.0600 #### [facility] [address] [place], [address] Eosinophils/100 WBC (Bld) 2.2 % Normal 0-5 [facility] Comment on above: Performed By: #### L 100.0600 #### [facility] [address] [place], [address] Erythrocyte distribution width (RBC) [Ratio] 13.1 % Normal 11.6-14.6 [facility] Comment on above: Performed By: #### L 100.0600 #### [facility] [address] [place], [address] Hematocrit (Bld) [Volume fraction] 39.9 % Low 40-54 [facility] Comment on above: Performed By: #### L 100.0600 #### [facility] [address] [place], [address] Hemoglobin (Bld) [Mass/Vol] 13.4 g/dL Normal 13.0-16.5 [facility] Comment on above: Performed By: #### L 100.0600 #### [facility] [address] [place], [address] IG% 0.200 Normal 0.0-0.9 [facility] Comment on above: Result Comment: IG% - Immature Granulocytes (promyelocytes, myelocytes and metamyelocytes) > 1% indicates that a LEFT SHIFT is Present. Performed By: #### L 100.0600 #### [facility] [address] [place], [address] Lymphocytes/100 WBC (Bld) 13.2 % Low 19-41 [facility] Comment on above: Performed By: #### L 100.0600 #### [facility] [address] [place], [address] MCH (RBC) [Entitic mass] 30.0 pg Normal 27.0-32.0 [facility] Comment on above: Performed By: #### L 100.0600 #### [facility] [address] [place], [address] MCHC (RBC) [Mass/Vol] 33.6 g/dL Normal 32-36 [facility] Comment on above: Performed By: #### L 100.0600 #### [facility] [address] [place], [address] MCV (RBC) [Entitic vol] 89.3 fL Normal 80-94 [facility] Comment on above: Performed By: #### L 100.0600 #### [facility] [address] [place], [address] Monocytes/100 WBC (Bld) 7.8 % Normal 0-10 [facility] Comment on above: Performed By: #### L 100.0600 #### [facility] [address] [place], [address] Neutrophils/100 WBC (Bld) 75.8 % High 47-70 [facility] Comment on above: Performed By: #### L 100.0600 #### [facility] [address] [place], [address] Nucleated RBC (Bld) [#/Vol] 0 10*3/uL Normal 0-5 [facility] Comment on above: Performed By: #### L 100.0600 #### [facility] [address] [place], [address] Platelet mean volume (Bld) [Entitic vol] 9.9 fL Normal 6.2-12.0 [facility] Comment on above: Performed By: #### L 100.0600 #### [facility] [address] [place], [address] Platelets (Bld) [#/Vol] 243 10*3/uL Normal 150-450 [facility] Comment on above: Performed By: #### L 100.0600 #### [facility] [address] [place], [address] RBC (Bld) [#/Vol] 4.47 10*6/uL Low 4.6-6.2 [facility] Comment on above: Performed By: #### L 100.0600 #### [facility] [address] [place], [address] RDW SD 42.9 fl Normal 35.1-43.9 [facility] Comment on above: Performed By: #### L 100.0600 #### [facility] [address] [place], [address] WBC (Bld) [#/Vol] 8.3 10*3/uL Normal 4.4-11.0 [facility] Comment on above: Performed By: #### L 100.0600 #### [facility] [address] [place], [address] Carbon dioxide measurementOr dered By: Rah Navaror on 05-06-2024 CO2 [Moles/Vol] 26.0 mmol/L 21.0-32.0 [facility] Chloride measurementOrdered By: Rah Navarro on 05-06-2024 Chloride [Moles/Vol] 106 mmol/L 98-107 [facility] Comprehensive Metabolic Prof ilon 05-06-2024 Albumin [Mass/Vol] 3.5 g/dL Normal 3.2-5.0 [facility] Comment on above: Performed By: #### L 100.0600 #### [facility] [address] [place], [address] Albumin/Globulin [Mass ratio] 0.9 {ratio} Normal 0.9-2.4 [facility] Comment on above: Performed By: #### L 100.0600 #### [facility] [address] [place], [address] ALK P 86 U/L Normal 45-117 [facility] Comment on above: Performed By: #### L 100.0600 #### [facility] [address] [place], [address] ALT [Catalytic activity/Vol] 19 U/L Normal 16-61 [facility] Comment on above: Performed By: #### L 100.0600 #### [facility] [address] [place] [place], [address] AST [Catalytic activity/Vol] 14 U/L Low 15-37 [facility] Comment on above: Performed By: #### L 100.0600 #### [facility] [address] [place], [address] Bilirubin [Mass/Vol] 0.40 mg/dL Normal 0.20-1.00 [facility] Comment on above: Result Comment: For patients on eltrombopag therapy, use of Dimension [place] TBIL is not recommended. Performed By: #### L 100.0600 #### [facility] [address] [place], [address] BUN/CRE 31.7 RATIO High 10-20 [facility] Comment on above: Performed By: #### L 100.0600 #### [facility] [address] [place], [address] CA,Total 8.9 mg/dL Normal 8.5-10.1 [facility] Comment on above: Performed By: #### L 100.0600 #### [facility] [address] [place], [address] Chloride [Moles/Vol] 106 mmol/L Normal 98-107 [facility] Comment on above: Performed By: #### L 100.0600 #### [facility] [address] [place], [address] CO2 [Moles/Vol] 26.0 mmol/L Normal 21.0-32.0 [facility] Comment on above: Performed By: #### L 100.0600 #### [facility] [address] [place], [address] Creatinine [Mass/Vol] 0.85 mg/dL Normal 0.70-1.30 [facility] Comment on above: Result Comment: The validity of the calculated GFR GFRAA in patients over 70 years has not been determined. Clinical correlation is essential. Performed By: #### L 100.0600 #### [facility] [address] [place], [address] ECRCL 86.13 ml/min Normal [facility] Comment on above: Performed By: #### L 100.0600 #### [facility] [address] [place], [address] EST GFR - AA 114 mL/min Normal >60 [facility] Comment on above: Result Comment: Afri can Wallisian GFR Calc Performed By: #### L 100.0600 #### [facility] [address] [place], [address] GAP 7 Normal 5-15 [facility] Comment on above: Performed By: #### L 100.0600 #### [facility] [address] [place], [address] GFR/1.73 sq M.predicted among non-blacks MDRD (S/P/Bld) [Vol rate/Area] 94 mL/min/{1.73_m2} Normal >60 [facility] Comment on above: Result Comment: Non- GFR Calc Performed By: #### L 100.0600 #### [facility] [address] [place], [address] Globulin (S) [Mass/Vol] 3.7 g/dL Normal 2.2-4.2 [facility] Comment on above: Performed By: #### L 100.0600 #### [facility] [address] [place], [address] Glucose [Mass/Vol] 112 mg/dL High 74-106 [facility] Comment on above: Result Comment: Fast ing Glucose result from 100 to 125 mg/dL suggests IMPAIRED HOMEOSTASIS per A.D.A. criteria. Performed By: #### L 100.0600 #### [facility] [address] [place], [address] Potassium [Moles/Vol] 4.0 mmol/L Normal 3.5-5.1 [facility] Comment on above: Performed By: #### L 100.0600 #### [facility] [address] [place], [address] Sodium [Moles/Vol] 139 mmol/L Normal 136-145 [facility] Comment on above: Performed By: #### L 100.0600 #### [facility] [address] [place], [address] T PROT 7.2 g/dL Normal 6.4-8.2 [facility] Comment on above: Performed By: #### L 100.0600 #### [facility] [address] [place], [address] Urea nitrogen [Mass/Vol] 27 mg/dL High 7-18 [facility] Comment on above: Performed By: #### L 100.0600 #### [facility] [address] [place], [address] Emergency Department Summary on 05-06-2024 Emergency Department Summary [facility] Medical Records Department [address] [place] [address] Emergency Department Summary 05/06/24 MR#: [id number] Acct: [id number] Name: LAINE GARCIA Rep #: [id number] : 1955 69 From: Alf Santiago DO PCP: Dr. Dante Gurrola MD Status:DEP ER Location: ED Patient was seen and [...] with above Physical exam: Agree with above [facility] Patient is a 69-year-old male who presented [...] in stable condition Supervising attending attestation: Alf COLINDRES History of Present Illness Chief Complaint: Abd [...] blood in his stool or vomit. [facility] Medical History no medical history Home Medications ???Medication ???Instructions ???Recorded ???Last Taken ???Type aspirin 81 mg chewable tablet 81 mg PO DAILY heart health 01/22/20 History capsicum (cayenne) 450 mg capsule [...] Skin: Ne (more content not included)... Normal [facility] Eosinophil percentageOrdered By: Rah Navarro on 05-06-2024 Eosinophils/100 WBC (Bld) 2.2 % 0-5 [facility] Erythrocyte distribution wid th ratioOrdered By: Rah Navarro on 05-06-2024 Erythrocyte distribution width (RBC) [Ratio] 13.1 % 11.6-14.6 [facility] Erythrocyte distribution wid th standard deviationOrdered By: Rah Navarro on 05-06-2024 Erythrocyte distribution width (RBC) [Ratio] 42.9 fl 35.1-43.9 [facility] Glomerular filtration rate ( GFR) estimationOrdered By: Rah Navarro on 05-06-2024 GFR/1.73 sq M.predicted among non-blacks MDRD (S/P/Bld) [Vol rate/Area] 94 mL/min/{1.73_m2} >60 [facility] Comment on above: Non- GFR Calc Glucose measurementOrdered B y: Rah Navarro on 05-06-2024 Glucose [Mass/Vol] 112 mg/dL High 74-106 [facility] Comment on above: Fasting Glucose resu lt from 100 to 125 mg/dL suggests IMPAIRED HOMEOSTASIS per A.D.A. criteria. Hematocrit Auto (Bld) [Volum e fraction]Ordered By: Rah Navarro on 05-06-2024 Hematocrit (Bld) [Volume fraction] 39.9 % Low 40-54 [facility] Hemoglobin measurementOrdere d By: Rah Navarro on 05-06-2024 Hemoglobin (Bld) [Mass/Vol] 13.4 g/dL 13.0-16.5 [facility] Immature granulocytes/100 WB C Auto (Bld)Ordered By: Rah Navarro on 05-06-2024 Immature granulocytes/100 WBC (Bld) 0.200 % 0.0-0.9 [facility] Comment on above: IG% - Immature Granu locytes (promyelocytes, myelocytes and metamyelocytes) > 1% indicates that a LEFT SHIFT is Present. Ketones Test strip Ql (U)Ord ered By: Rah Navarro on 05-06-2024 Ketones Ql (U) 15 mg/dl High Negative [facility] - Chemistry and C hemistry - challengeOrdered By: Rah Navarro on 05-06-2024 AST [Catalytic activity/Vol] 14 U/L Low 15-37 [facility] Lipaseon 05-06-2024 Lipase [Catalytic activity/Vol] 29 U/L Normal 13-75 [facility] Comment on above: Result Comment: Celena mccrary note: LIPASE revised reference range effective 22. New Lipase methodology. Expected to produce lower values than the previous assay method. NEW Reference Range: 13 - 75 U/L Performed By: #### L 100.0600 #### [facility] [address] [place], [address] Lipase measurementOrdered By : Rah Navarro on 05-06-2024 Lipase [Catalytic activity/Vol] 29 U/L 13-75 [facility] Comment on above: Please note:LIPASE r evised reference range effective 22. New Lipase methodology. Expected to produce lower values than the previous assay method. NEW Reference Range: 13 - 75 U/L MCV (mean corpuscular volume ) determinationOrdered By: Rah Navarro on 05-06-2024 MCV (RBC) [Entitic vol] 89.3 fL 80-94 [facility] Mean corpuscular hemoglobin (MCH) determinationOrdered By: Rah Navarro on 05-06-2024 MCH (RBC) [Entitic mass] 30.0 pg 27.0-32.0 [facility] Mean corpuscular hemoglobin concentration (MCHC) determinationOrdered By: Rah Navarro on 05-06-2024 MCHC (RBC) [Mass/Vol] 33.6 g/dL 32-36 [facility] Mean platelet volume determi nationOrdered By: Rah Navarro on 05-06-2024 Platelet mean volume (Bld) [Entitic vol] 9.9 fL 6.2-12.0 [facility] Microscopic analysis of urin e for red blood cells (RBC)Ordered By: Rah Navarro on 05-06-2024 Microscopic analysis of urine for red blood cells (RBC) 0 SEEN /hpf 0-5 [facility] Monocyte percentageOrdered B y: Rah Navarro on 05-06-2024 Monocytes/100 WBC (Bld) 7.8 % 0-10 [facility] Mucus LM Ql (Urine sed)Order ed By: Rah Navarro on 05-06-2024 Mucus Ql (Urine sed) 0 SEEN /hpf [facility] Neutrophil percentageOrdered By: Rah Navarro on 05-06-2024 Neutrophils/100 WBC (Bld) 75.8 % High 47-70 [facility] Nitrite Test strip Ql (U)Ord ered By: Rah Navarro on 05-06-2024 Nitrite Ql (U) Negative Negative [facility] Nucleated red blood cell per centageOrdered By: Rah Navarro on 05-06-2024 Nucleated RBC/100 WBC (Bld) [Ratio] 0 % 0-5 [facility] Platelet countOrdered By: Maddie Navarro on 05-06-2024 Platelets (Bld) [#/Vol] 243 10*3/uL 150-450 [facility] Potassium measurementOrdered By: Rah Navarro on 05-06-2024 Potassium [Moles/Vol] 4.0 mmol/L 3.5-5.1 [facility] Protein Test strip Ql (U)Ord ered By: Rah Navarro on 05-06-2024 Protein Ql (U) 15 mg/dl High Negative [facility] RBC Auto (Bld) [#/Vol]Ordere d By: Rah Navarro on 05-06-2024 RBC (Bld) [#/Vol] 4.47 10*6/uL Low 4.6-6.2 [facility] Serum anion gap measurementO rdered By: Rah Navarro on 05-06-2024 Anion gap [Moles/Vol] 7 mmol/L 5-15 [facility] Serum globulin measurementOr dered By: Rah Navarro on 05-06-2024 Globulin (S) [Mass/Vol] 3.7 g/dL 2.2-4.2 [facility] Serum or plasma alanine fuchs otransferase (ALT) measurementOrdered By: Rah Navarro on 05-06-2024 ALT [Catalytic activity/Vol] 19 U/L 16-61 [facility] Serum or plasma albumin arnie urement (mass/volume)Ordered By: Rah Navarro on 05-06-2024 Albumin [Mass/Vol] 3.5 g/dL 3.2-5.0 [facility] Serum or plasma alkaline sherice sphatase measurementOrdered By: Rah Navarro on 05-06-2024 ALP [Catalytic activity/Vol] 86 U/L 45-117 [facility] Serum or plasma calcium arnie urement (mass/volume)Ordered By: Rah Navarro on 05-06-2024 Calcium [Mass/Vol] 8.9 mg/dL 8.5-10.1 [facility] Serum or plasma creatinine m easurement (mass/volume)Ordered By: Rah Navarro on 05-06-2024 Creatinine [Mass/Vol] 0.85 mg/dL 0.70-1.30 [facility] Comment on above: The validity of the calculated GFR & GFRAA in patients over 70 years has not been determined. Clinical correlation is essential. Serum or plasma urea nitroge n measurement (mass/volume)Ordered By: Rah Navarro on 05-06-2024 Urea nitrogen [Mass/Vol] 27 mg/dL High 7-18 [facility] Sodium levelOrdered By: Rah Navarro on 05-06-2024 Sodium [Moles/Vol] 139 mmol/L 136-145 [facility] Squamous epithelial cells de tection in urine sediment by light microscopyOrdered By: Rah Navarro on 05-06-2024 Epithelial cells.squamous LM Ql (Urine sed) 0 SEEN /hpf 0-5 [facility] Total proteinOrdered By: Tatiana Navarro on 05-06-2024 Protein [Mass/Vol] 7.2 g/dL 6.4-8.2 [facility] Urinalysis, Completeon 05-06 BACTERIA 0 SEEN Normal None Seen [facility] Comment on above: Order Comment: CLEAN CATCH Performed By: #### L 400.0001 #### [facility] [address] [place], [address] EPI,SQUAMOUS 0 SEEN Normal 0-5 [facility] Comment on above: Order Comment: CLEAN CATCH Performed By: #### L 400.0001 #### [facility] [address] [place], [address] Mucus Ql (Urine sed) [address] [facility] Comment on above: Order Comment: CLEAN CATCH Performed By: #### L 400.0001 #### [facility] [address] [place], [address] RBC 0 SEEN Normal 0-5 [facility] Comment on above: Order Comment: CLEAN CATCH Performed By: #### L 400.0001 #### [facility] [address] [place], [address] WBC 0 SEEN Normal 0-5 [facility] Comment on above: Order Comment: CLEAN CATCH Performed By: #### L 400.0001 #### [facility] [address] [place], [address] Urine clarityOrdered By: Tatiana Navarro on 05-06-2024 Clarity (U) Clear Clear [facility] Urine color determinationOrd ered By: Rah Navarro on 05-06-2024 Color (U) Yellow Yellow [facility] Urine glucose detectionOrder ed By: Rah Navarro on 05-06-2024 Glucose Ql (U) Normal mg/dl Normal [facility] Urine leukocyte esterase det ection by dipstickOrdered By: Rah Navarro on 05-06-2024 Leukocyte esterase Test strip Ql (U) 25 /ul High Negative [facility] Urine pHOrdered By: Rah bermeo on 05-06-2024 pH (U) 5.0 [pH] 5.0 - 8.0 [facility] Urine sediment bacteria coun t by microscopy (number/high power field)Ordered By: Rha Navarro on 05-06-2024 Bacteria LM.HPF (Urine sed) [#/Area] 0 /[HPF] None Seen [facility] Urine specific gravity measu rementOrdered By: Rah Navarro on 05-06-2024 Specific gravity (U) [Rel density] 1.025 1.002-1.030 [facility] Urine urobilinogen measureme ntOrdered By: Rah Navarro on 05-06-2024 Urobilinogen Ql (U) Normal mg/dl Normal [facility] White blood cell (WBC) count Ordered By: Rah Navarro on 05-06-2024 WBC (Bld) [#/Vol] 8.3 10*3/uL 4.4-11.0 [facility] White blood cell countOrdere d By: Rah Navarro on 05-06-2024 White blood cell count 0 SEEN /hpf 0-5 [facility] EMERGENCY REPORTon 3 EMERGENCY REPORT [facility] EMERGENCY ROOM REPORT NAME ACCOUNT SEX AGE ADMIT DISCHARGE PT MED. RECORD# NUMBER DATE DATE TYPE LAINE GARCIA [id number] Julius 67 06/27/22 06/27/22 3 [id number] ROOM: ER DATE OF : 1955 DICTATING PHYSICIAN: Ted Youngblood ADDENDUM EMERGENCY DEPARTMENT COURSE AND TREATMENT: This patient was seen originally by Dr. Harman. He was evaluated by Dr. Hanknis in the Emergency Department as well. Radiology [...] Ted Youngblood MD 06/27/22 09:51 JOB #: [id number] Transcribed By: felipe 06/27/22 14:24 Electronically signed by: LINE Youngblood M.D. 07/01/22 06:58 Page 1 of 1 LAINE GARCIA Emergency Room Report Normal [facility] EMERGENCY REPORTon 3 EMERGENCY REPORT [facility] EMERGENCY ROOM REPORT NAME ACCOUNT SEX AGE ADMIT DISCHARGE PT MED. RECORD# NUMBER DATE DATE TYPE LAINE GARCIA [id number] M 67 06/27/22 06/27/22 3 [id number] ROOM: ER DATE OF : 1955 DICTATING [...] movement. PCP is Dr. Dante Gurrola in [facility]. PAST MEDICAL HISTORY: Denied. [...] motor or sensory deficits are noted. Hand sheet metal former are strong and symmetric. SKIN: Skin is [...] Laine Harman DO 06/27/22 05:04 JOB #: [id number] Transcribed By: felipe 06/27/22 13:48 Electronically signed by: E-Sign: Dr. Laine Harman D.O. 06/29/22 08:30 Page 2 of 2 LAINE GARCIA Emergency Room Report Normal [facility] EMERGENCY REPORT [facility] EMERGENCY ROOM REPORT NAME ACCOUNT SEX AGE ADMIT DISCHARGE PT MED. RECORD# NUMBER DATE DATE TYPE LAINE GARCIA [id number] M 67 06/27/22 06/27/22 3 [id number] ROOM: ER DATE OF : 1955 DICTATING PHYSICIAN: Laine Harman ADDENDUM DIAGNOSTIC DATA: EKG was done at 4:49 a.m. It showed sinus rhythm at [address]-segment changes were noted. [place] is 0 degrees. White count came back [...] Laine Harman DO 06/27/22 07:47 JOB #: [id number] Transcribed By: felipe 06/27/22 14:09 Electronically signed by: E-Sign: Dr. Laine Harman D.O. 06/29/22 08:30 Page 2 of 2 LAINE GARCIA Emergency Room Report Normal [facility] C-REACTIVE PROTEINon 023 CRP 5.10 mg/dl High 0.00 - 0.90 [facility] Comment on above: Performed By: #### 2 38714 #### [facility],[address] [place] [address] CBC + DIFFon 06-27-2022 Baso # 0.00 x10EE3/UL Normal 0.00 - 0.10 [facility] Comment on above: Performed By: #### 2 08056 #### [facility],[address] [place], [place] [address] Basophils/100 WBC (Bld) 0.5 % Normal 0.0 - 2.0 [facility] Comment on above: Performed By: #### 2 80407 #### [facility],[address] [place] [address] CBC + DIFF Normal [facility] Comment on above: Result Comment: CBC- COMPLETE BLOOD COUNT Performed By: #### 2 14323 #### [facility],[address] [place] [address] EO # 0.00 x10EE3/UL Normal 0.00 - 0.50 [facility] Comment on above: Performed By: #### 2 64387 #### [facility],[address] [place] [address] Eosinophils/100 WBC (Bld) 0.4 % Normal 0.0 - 7.0 [facility] Comment on above: Performed By: #### 2 18644 #### [facility],[address] [place], [place] [address] Erythrocyte distribution width (RBC) [Ratio] 13.9 % Normal 12.0 - 15.6 [facility] Comment on above: Performed By: #### 2 38418 #### [facility],[address] [place], [place] [address] Hematocrit (Bld) [Volume fraction] 41.2 % Normal 40.0 - 52.0 [facility] Comment on above: Performed By: #### 2 50494 #### [facility],[address] [place] [address] Hemoglobin (Bld) [Mass/Vol] 14.1 g/dL Normal 13.0 - 17.5 [facility] Comment on above: Performed By: #### 2 74436 #### [facility],[address] [place] [address] Lymph # 0.50 x10EE3/UL Low 0.80 - 2.80 [facility] Comment on above: Performed By: #### 2 12097 #### [facility],[address] [place] [address] Lymphocytes/100 WBC (Bld) 6.2 % Low 20.0 - 45.0 [facility] Comment on above: Performed By: #### 2 81825 #### [facility],[address] [place] [address] MANUAL DIFF N/A Normal [facility] Comment on above: Performed By: #### 2 26239 #### [facility],[address] [place] [address] MCH (RBC) [Entitic mass] 32 pg Normal 27 - 33 [facility] Comment on above: Performed By: #### 2 88812 #### [facility],[address] [place] [address] MCHC 34 X10 3 Normal 32 - 36 [facility] Comment on above: Performed By: #### 2 42356 #### [facility],[address] [place] [address]61 MCV (RBC) [Entitic vol] 92 fL Normal 81 - 98 [facility] Comment on above: Performed By: #### 2 97417 #### [facility],[address] [place] [address] [place] # 0.50 x10EE3/UL Normal 0.20 - 1.00 [facility] Comment on above: Performed By: #### 2 18845 #### [facility],[address] [place] [address] MONOS % 6.1 % Normal 0.0 - 10.0 [facility] Comment on above: Performed By: #### 2 04422 #### [facility],[address] [place] [address] Morphology Ramón (Bld) [Interp] N/A Normal [facility] Comment on above: Performed By: #### 2 70989 #### [facility],[address] [place] [address]26 Neut # 7.20 x10EE3/UL High 1.50 - 7.10 [facility] Comment on above: Performed By: #### 2 78380 #### [facility],[address] [place] [address] Neutrophils/100 WBC (Bld) 86.8 % High 46.0 - 76.0 [facility] Comment on above: Performed By: #### 2 26046 #### [facility],[address] [place] [address] PLATELET 196 x10EE3/UL Normal 150 - 450 [facility] Comment on above: Performed By: #### 2 15094 #### [facility],[address] [place] [address] Platelet mean volume (Bld) [Entitic vol] 8.1 fL Normal 6.4 - 10.5 [facility] Comment on above: Result Comment: AUTO MATED DIFFERENTIAL Performed By: #### 2 40963 #### [facility],[address] [place] [address] 857[address] RBC 4.48 x 10EE6/UL Low 4.50 - 6.00 [facility] Comment on above: Performed By: #### 2 87030 #### [facility],[address] [place] [address] WBC 8.2 x 10EE3/UL Normal 4.5 - 10.8 [facility] Comment on above: Performed By: #### 2 28271 #### [facility],[address] [place] [address] CMP with eGFRon 06-27-2022 AGE 67 years Normal [facility] Comment on above: Performed By: #### 2 95102 #### [facility],[address] [place] [address] Albumin [Mass/Vol] 3.5 g/dL Normal 3.4 - 5.0 [facility] Comment on above: Performed By: #### 2 [id number] #### [facility],[address] [place] [address] 27239 Albumin/Globulin [Mass ratio] 1.1 {ratio} Normal 0.9 - 1.6 [facility] Comment on above: Performed By: #### 2 98112 #### [facility],[address] [place] [address] 98428 ALK PHOS 69 U/L Normal 46 - 116 [facility] Comment on above: Performed By: #### 2 87912 #### [facility],[address] [place] [address] 60912 ALT [Catalytic activity/Vol] 15 U/L Low 16 - 63 [facility] Comment on above: Performed By: #### 2 03606 #### [facility],[address] [place] [address] 26042 Anion gap [Moles/Vol] 11 mmol/L Normal 10 - 20 [facility] Comment on above: Performed By: #### 2 34853 #### [facility],[address] [place] [address] 21575 AST [Catalytic activity/Vol] 22 U/L Normal 15 - 37 [facility] Comment on above: Performed By: #### 2 88122 #### [facility],[address] [place] [address] 29553 B/C RATIO 23 ratio Normal 0 - 30 [facility] Comment on above: Performed By: #### 2 10615 #### [facility],[address] [place] [address] 39826 Bilirubin [Mass/Vol] 0.6 mg/dL Normal 0.2 - 1.0 [facility] Comment on above: Performed By: #### 2 89344 #### [facility],[address] [place] [address] 40322 Calcium [Mass/Vol] 8.5 mg/dL Normal 8.5 - 10.1 [facility] Comment on above: Performed By: #### 2 96231 #### [facility],[address] [place] [address] 21926 Chloride [Moles/Vol] 103 mmol/L Normal 98 - 107 [facility] Comment on above: Performed By: #### 2 17522 #### [facility],[address] [place] [address] 55076 CMP with eGFR Normal [facility] Comment on above: Result Comment: COMP REHENSIVE METABOLIC PANEL Performed By: #### 2 21819 #### [facility],[address] [place] [address] 05356 CO2 [Moles/Vol] 26.6 mmol/L Normal 21.0 - 32.0 [facility] Comment on above: Performed By: #### 2 99693 #### [facility],[address] [place] [address] 99407 Creatinine [Mass/Vol] 1.05 mg/dL Normal 0.70 - 1.30 [facility] [place] Comment on above: Performed By: #### 2 24148 #### [facility],[address] [place] [address] 01193 GFR/1.73 sq M.predicted among non-blacks MDRD (S/P/Bld) [Vol rate/Area] mL/min/{1.73_m2} Normal 60 - 999 [facility] Comment on above: Performed By: #### 2 02725 #### [facility],[address] [place] [address] 22923 Result Comment: ACCO RDING TO THE NATIONAL KIDNEY DISEASE EDUCATION PROGRAM(NKDE), A NORMAL eGFR IS A VALUE GREATER THAN OR EQUAL TO 60 ML/MIN/1.73 SQ METERS. CHRONIC KIDNEY DISEASE: <60mL/MIN/1.73 SQ METERS KIDNEY FAILURE: <15mL/MIN/1.73 SQ METERS THIS TEST SHOULD ONLY BE USED FOR PATIENTS 18 YEARS OF AGE AND OLDER. Globulin (S) [Mass/Vol] 3.2 g/dL Normal 1.5 - 3.8 [facility] Comment on above: Performed By: #### 2 07941 #### [address] [address] Glucose [Mass/Vol] 139 mg/dL High 74 - 106 [facility] Comment on above: Performed By: #### 2 40637 #### [address] [address] Potassium [Moles/Vol] 3.7 mmol/L Normal 3.5 - 5.1 [facility] Comment on above: Performed By: #### 2 25863 #### [address] [address] Protein [Mass/Vol] 6.7 g/dL Normal 6.4 - 8.2 [facility] Comment on above: Performed By: #### 2 13752 #### [address] [address] Sodium [Moles/Vol] 137 mmol/L Normal 136 - 145 [facility] Comment on above: Performed By: #### 2 99508 #### [facility],[address] [place] [address] 56652 Urea nitrogen [Mass/Vol] 24 mg/dL High 7 - 18 [facility] Comment on above: Performed By: #### 2 19591 #### [address] [address] [address] ABDOMEN/PELVIS [facility] 2022 CT ABDOMEN/PELVIS [place] [id number] [place], [place] [address] Patient: LAINE GARCIA Phone#: : 1955 Age: 67 Gender: M Pt. Type: ER Account: [id number] Location: 052 Ordering: LAINE HARMAN Exam Date: 06/27/2022/5:56 Family Phys: DANTE GURROLA Charge Code: [id number] Physician: Madera Order #: [id number] Dose#: 12.20 mGy PROCEDURE: CT ABDOMEN/PELVIS WITH [...] 67 Gender: M Pt. Type: ER Account: [id number] Location: 052 Ordering: LAINE HARMAN Exam Date: 06/27/2022/5:56 Family Phys: DANTE GURROLA Charge Code: [id number] Physician: Madera Order #: [id number] Dose#: 12.20 mGy BONES: Degenerative changes of [...] Kraus MD on 06/27/2022 at 8:23 Normal [facility] CULTURE BLOOD [RASHARD]on Microscopic examination of blood, culture CULTURE BLOOD [RASHARD] _BLOOD CULTURE_ [facility] FOR SCANNED REPORT 07/03/22.952.DNP.COMP LET Normal [facility] Comment on above: Performed By: #### 2 95270 ####[facility],[address] [place] [address] Microscopic examination of blood, culture CULTURE BLOOD [RASHARD] _BLOOD CULTURE_ GO TO [facility] REPORTS AND ATTACHMENTS FOR SCANNED REPORT 07/03/22.DNP.COMP LETE Normal [facility] Comment on above: Performed By: #### 2 13204 #### [facility],[address] [place], [place] [address] LACTATEon 06-27-2022 Lactate [Moles/Vol] 0.4 mmol/L Normal 0.4 - 2.0 [facility] Comment on above: Performed By: #### 2 67574 #### [facility],[address] [place] [address] LIPASEon 06-27-2022 Lipase [Catalytic activity/Vol] 120.0 U/L Normal 73.0 - 393 [facility] Comment on above: Performed By: #### 2 25749 #### [facility],[address] [place], [place] [address] URINALYSISon 06-27-2022 Amorphous NONE Normal [facility] Comment on above: Performed By: #### 2 20793 #### [facility],[address] [place] [address] 08504 Bacteria TRACE Normal [facility] Comment on above: Performed By: #### 2 84293 #### [facility],[address] [place], [place] [address] Bilirubin Ql (U) Negative Normal NORMAL: NEGATIVE [facility] Comment on above: Performed By: #### 2 24318 #### [facility],[address] [place], [place] [address] Casts NONE Normal [facility] Comment on above: Performed By: #### 2 39832 #### [facility],[address] [place], [place] [address] Clarity (U) clear Normal NORMAL: CLEAR [facility] Comment on above: Performed By: #### 2 55622 #### [facility],[address] [place], [place] [address] Color (U) p.yel Normal NORMAL: YELLOW [facility] Comment on above: Performed By: #### 2 85198 #### [facility],[address] [place] [address] 99505 Crystals LM Nom (Urine sed) NONE Normal [facility] Comment on above: Performed By: #### 2 36411 #### [facility],[address] [place] [address] 67716 Epi Cells RARE Normal [facility] Comment on above: Performed By: #### 2 59471 #### [facility],[address] [place] [address] 43603 Glucose Ql (U) NORM Normal NORMAL: NORMAL [facility] Comment on above: Performed By: #### 2 45270 #### [facility],[address] [place] [address] 41440 Hemoglobin Ql (U) 150 Abnormal NORMAL: NEGATIVE [facility] Comment on above: Performed By: #### 2 42737 #### [facility],[address] [place] [address] 53023 Ketone 5 Abnormal NORMAL: NEGATIVE [facility] Comment on above: Performed By: #### 2 03699 #### [facility],[address] [place] [address] 38695 Leukocytes Negative Normal NORMAL: NEGATIVE [facility] Comment on above: Performed By: #### 2 90369 #### [facility],[address] [place], [place] [address] Mucous NONE Normal [facility] Comment on above: Performed By: #### 2 38898 #### [facility],[address] [place] [address] 39354 Nitrite Ql (U) Negative Normal NORMAL: NEGATIVE [facility] Comment on above: Performed By: #### 2 59339 #### [facility],[address] [place] [address] 05863 pH (U) 8 [pH] Normal NORMAL: 5.0-8.0 [facility] Comment on above: Performed By: #### 2 22008 #### [facility],[address] [place] [address] 79048 Protein Ql (U) 15 Abnormal NORMAL: NEGATIVE [facility] Comment on above: Performed By: #### 2 44719 #### [facility],[address] [place] [address] 29620 Rbc 10-15 Normal 0-3/hpf [facility] Comment on above: Performed By: #### 2 33385 #### [facility],[address] [place] [address] Sp [place] 1.010 Normal NORMAL: 1.010-1.030 [facility] Comment on above: Performed By: #### 2 42121 #### [facility],[address] [place] [address] Specimen Type Clean catch Normal [facility] Comment on above: Performed By: #### 2 06239 #### [facility],[address] [place] [address] Urinalysis dipstick W Reflex Microscopic panel (U) SEE BELOW Normal [facility] Comment on above: Result Comment: MICR OSCOPIC Performed By: #### 2 58557 #### [facility],[address] [place] [address] Urobilinog NORM Normal NORMAL: NORMAL [facility] Comment on above: Performed By: #### 2 34864 #### [facility],[address] [place] [address] Wbc NONE Normal 0-5/hpf [facility] Comment on above: Performed By: #### 2 54624 #### [facility],[address] [place] [address] Yeast NONE Normal [facility] Comment on above: Performed By: #### 2 88240 #### [facility],[address] [place] [address] Vital Signs Date Time Vital Sign Value Performing Clinician Facility 01-01-2025 07:39-0400 Body temperature 97.6 [degF] Dr. Dante Gurrola DO Work Phone: [facility] 01-01-2025 07:39-0400 Diastolic blood pressure 89 mm[Hg] Dr. Dante Gurrola DO Work Phone: [facility] 01-01-2025 07:39-0400 Heart rate 51 /min Dr. Dante Gurrola DO Work Phone: [facility] 01-01-2025 07:39-0400 Respiratory rate 16 /min Dr. Dante Gurrola DO Work Phone: [facility] 01-01-2025 07:39-0400 SaO2% (BldA) [Mass fraction] 100 % Dr. Dante Gurrola DO Work Phone: [facility] 01-01-2025 07:39-0400 Systolic blood pressure 137 mm[Hg] Dr. Dante Gurrola DO Work Phone: [facility] 01-01-2025 05:56-0400 Body height 177.[address] Dante Gurrola DO Work Phone: [facility] 01-01-2025 05:56-0400 Body mass index (BMI) [Ratio] 25.6 kg/m2 Dr. Dante Gurrola DO Work Phone: [facility] 01-01-2025 05:56-0400 Body weight 81.[address] Dante Gurrola DO Work Phone: [facility] 09-28-2024 09:07-0400 Body height 180.3 cm Zara Spann DO Work Phone: [facility] 09-28-2024 09:07-0400 Body mass index (BMI) [Ratio] 24.55 kg/m2 Zara Stantonsgsona DO Work Phone: [facility] 09-28-2024 09:07-0400 Body temperature 97.7 [degF] Zara Maximinosgay DO Work Phone: [facility] 09-28-2024 09:07-0400 Body weight 79.83 kg Zara Pozsgay DO Work Phone: [facility] 09-28-2024 09:07-0400 Diastolic blood pressure 73 mm[Hg] Zara Stantonsgsona DO Work Phone: [facility] 09-28-2024 09:07-0400 Heart rate 71 /min Zara Stantondeshaunsona DO Work Phone: [facility] 09-28-2024 09:07-0400 SaO2% (BldA) [Mass fraction] 97 % Zara Spann DO Work Phone: [facility] [employer] 09-28-2024 09:07-0400 Systolic blood pressure 132 mm[Hg] Zara Spann DO Work Phone: [facility] 09-15-2024 09:26-0400 Body temperature 98.91 [degF] Grace Wakefield MD Work Phone: [facility] [employer] 09-15-2024 09:26-0400 Diastolic blood pressure 67 mm[Hg] Grace Wakefield MD Work Phone: [facility] [employer] 09-15-2024 09:26-0400 Heart rate 81 /min Grace Wakefield MD Work Phone: [facility] [employer] 09-15-2024 09:26-0400 Respiratory rate 20 /min Grace Wakefield MD Work Phone: [facility] [employer] 09-15-2024 09:26-0400 SaO2% (BldA) [Mass fraction] 96 % Grace Wakefield MD Work Phone: [facility] [employer] 09-15-2024 09:26-0400 Systolic blood pressure 113 mm[Hg] Grace Wakefield MD Work Phone: [facility] [employer] 09-09-2024 21:45-0400 Body mass index (BMI) [Ratio] 23.98 kg/m2 Grace Wakefield MD Work Phone: [facility] [employer] 09-09-2024 21:45-0400 Body weight 78 kg Grace Wakefield MD Work Phone: [facility] 09-09-2024 08:38-0400 Body temperature 97.7 [degF] Dr. Dante Gurrola DO Work Phone: [facility] 09-09-2024 08:38-0400 Diastolic blood pressure 72 mm[Hg] Dr. Dante Gurrola DO Work Phone: [facility] 09-09-2024 08:38-0400 Heart rate 72 /min Dr. Dante Gurrola DO Work Phone: [facility] 09-09-2024 08:38-0400 Inhaled oxygen flow rate 1.5 L/min Dr. Dante Gurrola DO Work Phone: [facility] 09-09-2024 08:38-0400 Respiratory rate 17 /min Dr. Dante Gurrola DO Work Phone: [facility] 09-09-2024 08:38-0400 SaO2% (BldA) [Mass fraction] 100 % Dr. Dante Gurrola DO Work Phone: [facility] 09-09-2024 08:38-0400 Systolic blood pressure 127 mm[Hg] Dr. Dante Gurrola DO Work Phone: [facility] 09-09-2024 06:30-0400 Body height 177.[address] Dante Gurrola DO Work Phone: [facility] 09-09-2024 06:30-0400 Body mass index (BMI) [Ratio] 25.7 kg/m2 Dr. Dante Gurrola DO Work Phone: [facility] 09-09-2024 06:30-0400 Body weight 81.[address] Dante Gurrola DO Work Phone: [facility] 09-08-2024 12:51-0400 Body temperature 98.71 [degF] Laine Moya MD Work Phone: [facility] 09-08-2024 12:51-0400 Diastolic blood pressure 100 mm[Hg] Laine Moya MD Work Phone: [facility] 09-08-2024 12:51-0400 Heart rate 79 /min Laine Moya MD Work Phone: [facility] 09-08-2024 12:51-0400 Respiratory rate 16 /min Laine Moya MD Work Phone: [facility] 09-08-2024 12:51-0400 SaO2% (BldA) [Mass fraction] 98 % Laine Moya MD Work Phone: [facility] 09-08-2024 12:51-0400 Systolic blood pressure 154 mm[Hg] Laine Moya MD Work Phone: [facility] 09-01-2024 15:41-0400 Body temperature 98 [degF] Dr. Dante Gurrola DO Work Phone: [facility] 09-01-2024 15:41-0400 Body weight 77.[address] Dante Gurrola DO Work Phone: [facility] 09-01-2024 15:41-0400 Diastolic blood pressure 68 mm[Hg] Dr. Dante Gurrola DO Work Phone: [facility] 09-01-2024 15:41-0400 Heart rate 65 /min Dr. Dante Gurrola DO Work Phone: [facility] 09-01-2024 15:41-0400 Respiratory rate 16 /min Dr. Dante Gurrola DO Work Phone: [facility] 09-01-2024 15:41-0400 SaO2% (BldA) [Mass fraction] 98 % Dr. Dante Gurrola DO Work Phone: [facility] 09-01-2024 15:41-0400 Systolic blood pressure 110 mm[Hg] Dr. Dante Gurrola DO Work Phone: [facility] 08-24-2024 09:49-0400 Body height 180.3 cm Zara Spann DO Work Phone: [facility] 08-24-2024 09:49-0400 Body mass index (BMI) [Ratio] 23.63 kg/m2 Zara Spann DO Work Phone: [facility] 08-24-2024 09:49-0400 Body temperature 97.7 [degF] Zara Spann DO Work Phone: [facility] 08-24-2024 09:49-0400 Body weight 76.84 kg Zara Postephanisgsona DO Work Phone: [facility] [employer] 08-24-2024 09:49-0400 Diastolic blood pressure 69 mm[Hg] Zara Pozsgay DO Work Phone: [facility] [employer] 08-24-2024 09:49-0400 Heart rate 72 /min Zara Postephanisgsona DO Work Phone: [facility] [employer] 08-24-2024 09:49-0400 SaO2% (BldA) [Mass fraction] 99 % Zara Spann DO Work Phone: [facility] [employer] 08-24-2024 09:49-0400 Systolic blood pressure 118 mm[Hg] Zara Spann DO Work Phone: [facility] [employer] 08-13-2024 06:02-0400 Body temperature 98.8 [degF] Ganesh Earl MD Work Phone: [facility] [employer] 08-13-2024 06:02-0400 Diastolic blood pressure 90 mm[Hg] Ganesh Earl MD Work Phone: [facility] [employer] 08-13-2024 06:02-0400 Heart rate 66 /min Ganesh Earl MD Work Phone: [facility] 08-13-2024 06:02-0400 Respiratory rate 20 /min Ganesh Earl MD Work Phone: [facility] [employer] 08-13-2024 06:02-0400 SaO2% (BldA) [Mass fraction] 97 % Ganesh Earl MD Work Phone: [facility] [employer] 08-13-2024 06:02-0400 Systolic blood pressure 144 mm[Hg] Ganesh Earl MD Work Phone: [facility] [employer] 08-12-2024 14:23-0400 Body height 180.3 cm Ganesh Earl MD Work Phone: [facility] [employer] 08-09-2024 18:56-0400 Body mass index (BMI) [Ratio] 23.71 kg/m2 Ganesh Earl MD Work Phone: [facility] 08-09-2024 18:56-0400 Body weight 77.11 kg Ganesh Earl MD Work Phone: [facility] 08-09-2024 17:28-0400 Body temperature 98.9 [degF] Dr. Dante Gurrola DO Work Phone: [facility] 08-09-2024 17:28-0400 Diastolic blood pressure 90 mm[Hg] Dr. Dante Gurrola DO Work Phone: [facility] 08-09-2024 17:28-0400 Heart rate 77 /min Dr. Dante Gurrola DO Work Phone: [facility] 08-09-2024 17:28-0400 Respiratory rate 14 /min Dr. Dante Gurrola DO Work Phone: [facility] 08-09-2024 17:28-0400 SaO2% (BldA) [Mass fraction] 95 % Dr. Dante Gurrola DO Work Phone: [facility] 08-09-2024 17:28-0400 Systolic blood pressure 150 mm[Hg] Dr. Dante Gurrola DO Work Phone: [facility] 08-09-2024 05:44-0400 Body mass index (BMI) [Ratio] 25.9 kg/m2 Dr. Dante Gurrola DO Work Phone: [facility] 08-09-2024 05:44-0400 Body weight 82.[address] Dante Gurrola DO Work Phone: [facility] 08-07-2024 18:57-0400 Inhaled oxygen flow rate 6 L/min Dr. Dante Gurrola DO Work Phone: [facility] 08-07-2024 15:16-0400 Body height 177.[address] Dante Gurrola DO Work Phone: [facility] 05-06-2024 19:53-0500 Body temperature 98.4 [degF] Dr. Dante Gurrola DO Work Phone: [facility] 05-06-2024 19:53-0500 Diastolic blood pressure 98 mm[Hg] Dr. Dante Gurrola DO Work Phone: [facility] 05-06-2024 19:53-0500 Heart rate 57 /min Dr. Dante Gurrola DO Work Phone: [facility] 05-06-2024 19:53-0500 Respiratory rate 16 /min Dr. Dante Gurrola DO Work Phone: [facility] 05-06-2024 19:53-0500 SaO2% (BldA) [Mass fraction] 97 % Dr. Dante Gurrola DO Work Phone: [facility] 05-06-2024 19:53-0500 Systolic blood pressure 166 mm[Hg] Dr. Dante Gurrola DO Work Phone: [facility] 05-06-2024 17:54-0500 Body mass index (BMI) [Ratio] 26.2 kg/m2 Dr. Dante Gurrola DO Work Phone: [facility] 05-06-2024 17:54-0500 Body weight 85.[address] Dante Gurrola DO Work Phone: [facility] Encounters Encounter Date Encounter Type Care Provider Facility Start: 01-01-2025 ambulatory Dante Gurrola Facility:[facility] Start: 01-01-2025 Non-patient / Non-visit Betito Pickett nd, DO -[facility] Start: 01-01-2025 End: 01-01-2025 Admission to same day surgery center Betito Avendano DO -Endoscopy Work Phone: Start: 01-01-2025 End: 01-01-[address] Dante Gurrola DO Work Phone: -Endoscopy Start: 11-21-2024 End: 11-21-2024 Patient encounter procedure Betito Avendano DO -[facility] Work Phone: Start: 11-21-2024 End: 11-21-[address] Dante Gurrola DO Work Phone: -[facility] Start: 09-28-2024 End: 09-28-2024 Postop follow up visit related to original px Zara Spann Work Phone: [facility] [place] Comment on above: Pneumoperitoneum (Pr imary Dx); Duodenal ulceration Start: 09-28-2024 End: 09-28-2024 ambulatory ZARA STANTONSONA [facility] Start: 09-09-2024 End: 09-09-2024 ambulatory UNKNOWN PROVIDER Facility:[facility] Start: 09-09-2024 End: 09-15-2024 Evaluation and management of inpatient Grace Wakefield MD Work Phone: [facility] Surgical Progressive Care Unit PCU H6 Comment on above: Hematemesis (Primary Dx); Duodenal ulceration; Duodenal perforation (CMS/HCC) (HCC) Start: 09-09-2024 End: 09-09-2024 Emergency department patient visit Dr. Dante Gurrola DO Work Phone: -Emergency Department Work Phone: Start: 09-08-2024 End: 09-08-2024 Emergency department patient visit Laine Moya MD Work Phone: [facility] EMERGENCY DEPT Comment on above: Abdominal pain, unsp ecified abdominal location (Primary Dx) Start: 09-01-2024 End: 09-01-2024 Patient encounter procedure Manuela PERKINS -[facility] Work Phone: Start: 09-01-2024 End: 09-01-[address] Dante Gurrola DO Work Phone: [facility] Work Phone: Start: 08-24-2024 End: 08-27-2024 Patient encounter procedure Nereyda Sorto RN [facility] Clinical Communication Start: 08-24-2024 End: 08-24-2024 Postop follow up visit related to original px Zara Spann DO Work Phone: [facility] [place] Comment on above: Encounter for postop erative care (Primary Dx) Start: 08-24-2024 End: 08-27-2024 ambulatory Nereyda Sorto RN [facility] Clinical Communication Start: 08-22-2024 End: 08-22-2024 Patient encounter procedure Betito Avendano DO [facility] Work Phone: Start: 08-22-2024 End: 08-22-[address] Dante Gurrola DO Work Phone: [facility] Work Phone: Start: 08-17-2024 End: 08-17-2024 Telephone encounter Zara Spann DO Work Phone: [facility]aroscopic [facility] - [place] Comment on above: Other Start: 08-09-2024 End: 08-13-2024 Evaluation and management of inpatient Ganesh Earl MD Work Phone: [facility] Medical Surgical Unit [facility] H5 Comment on above: Duodenal perforation (CMS/HCC) (HCC) (Primary Dx) Start: 08-09-2024 Non-patient / Non-visit Betito Pickett nd [facility] Start: 08-09-2024 Non-patient / Non-visit Dr. Cathryn [facility] Work Phone: Start: 08-09-2024 Non-patient / Non-visit Dr. Vicente Francisco MD -[facility] Start: 08-08-2024 Non-patient / Non-visit Betito Pickett nd, DO [facility] Start: 08-08-2024 Non-patient / Non-visit Dr. Cathryn [facility] Work Phone: Start: 08-07-2024 Non-patient / Non-visit Betito Pickett nd, DO [facility] Start: 08-07-2024 Non-patient / Non-visit Dr. Naz Odell MD -[facility] Work Phone: Start: 08-06-2024 Non-patient / Non-visit Dr. Naz Odell MD -[facility] Work Phone: Start: 08-05-2024 Non-patient / Non-visit Betito Pickett veronika DO -[facility] Start: 08-05-2024 ambulatory [facility] Facility:[facility] Start: 08-05-2024 End: 08-09-2024 Evaluation and management of inpatient Dr. Brandie Spears DO -Progressive Care Unit Work Phone: Start: 07-25-2024 End: 07-25-2024 Patient encounter procedure Ruba HE -[facility] Work Phone: Start: 07-25-2024 End: 07-25-2024 ambulatory [facility] Facility:[facility] Start: 05-06-2024 End: 05-06-2024 Emergency department patient visit Dr. Alf Santiago DO -Emergency Department Work Phone: Start: 06-27-2022 End: 06-27-2022 Emergency department patient visit LAINE DAMON [facility] Procedures Date Procedure Procedure Detail Performing Clinician Start: 01-01-[address] Dante Gurrola DO Work Phone: Start: 09-28-2024 Follow-up visit ZARA RODRIGUEZSONA Start: 09-15-2024 Basic metabolic panel calcium total Teresita Castaneda MD Work Phone: Start: 09-14-2024 End: 09-14-2024 Esophagogastroduodenoscopy transoral diagnostic Laine Becerril MD Work Phone: Start: 09-14-2024 Glucose quantitative blood xcpt reagent strip Jose Peck DO Work Phone: Start: 09-14-2024 Basic metabolic panel calcium total Teresita Castaneda MD Work Phone: Start: 09-13-2024 Blood count hematocrit Aury Whitmore NP Work Phone: Start: 09-13-2024 Basic metabolic panel calcium total Teresita Castaneda MD Work Phone: Start: 09-12-2024 Guidance for embolization of Vessels Jessica Francisco MD Work Phone: Start: 09-12-2024 Basic metabolic panel calcium total Teresita Castaneda MD Work Phone: Start: 09-11-2024 Ct angio abd&plvis cntrst mtrl w/wo cntrst img Jessica Francisco MD Work Phone: Start: 09-11-2024 Blood count complete auto&auto difrntl wbc Teresita Castaneda MD Work Phone: Start: 09-11-2024 Basic metabolic panel calcium total Teresita Castaneda MD Work Phone: Start: 09-10-2024 Blood count hematocrit Aliya Antonio MD Work Phone: Start: 09-10-2024 Blood count hematocrit Aliya Antonio MD Work Phone: Start: 09-10-2024 Compatibility each unit electronic Teresita Castaneda MD Work Phone: Start: 09-10-2024 End: 09-10-2024 TRANSFUSE RED BLOOD CELLS Teresita Marino Work Phone: Start: 09-10-2024 Blood count complete auto&auto difrntl wbc Teresita Castaneda MD Work Phone: Start: 09-10-2024 Basic metabolic panel calcium total Teresita Castaneda MD Work Phone: Start: 09-09-2024 Blood count hematocrit Teresita Castaneda MD Work Phone: Start: 09-09-2024 Compatibility each unit electronic Teresita Castaneda MD Work Phone: Start: 09-09-2024 End: 09-09-2024 TRANSFUSE RED BLOOD CELLS Teresita Marino Work Phone: Start: 09-09-2024 Blood count hematocrit Aliya Antonio MD Work Phone: Start: 09-09-2024 End: 09-09-2024 Esophagogastroduodenoscopy transoral diagnostic Vicky Car MD Work Phone: Start: 09-09-2024 Antibody screen ZARA SPANN Comment on above: Performed By: #### [id number] ####Medical Di jorge: CARMEL HOWARD ([id number])[facility] ([facility])[address] [place] [address] Start: 09-09-2024 Blood typing serologic abo GREGORY-Yudi Antonio MD Work Phone: Start: 09-09-2024 Comprehensive metabolic panel GREGORY-Yudi alston MD Work Phone: Start: 09-09-2024 Manual differential performed [Presence] in Blood Aliya Antonio MD Work Phone: Start: 09-09-2024 Computed tomography of abdomen and pelvis with contrast Dr. Dante Gurrola DO Work Phone: Start: 09-09-[address] Dante Gurrola DO Work Phone: Start: 09-08-2024 Ct abdomen & pelvis w/contrast material Dione Tucker [employer] Work Phone: Start: 09-08-2024 Basic metabolic panel calcium total Dione Caitlin [employer] Work Phone: Start: 09-08-2024 Urnls dip stick/tablet rgnt auto w/o microscopy Dione Caitlin [employer] Work Phone: Start: 08-24-2024 Follow-up visit ZARA MAXIMINOARI Start: 08-13-2024 Basic metabolic panel calcium total [...] prtm&omentum dx w/wo spec br/wa spx Zara Postephanisgsona DO Work Phone: Start: 08-10-2024 Ct abdomen & pelvis w/o contrast material Jaylyn Moore MD Work Phone: Start: 08-10-2024 Radiologic exam upr gi trc single contrast study Velasquez Vance MD Work Phone: Start: 08-10-2024 Basic metabolic panel calcium total Velasquez Vance MD Work Phone: Start: 08-10-2024 Manual Differential panel - Blood Coretta Vance MD Work Phone: Start: 08-09-2024 End: 08-10-2024 Laps abd prtm&omentum dx w/wo spec br/wa spx Zara Pomonica DO Work Phone: Start: 08-09-2024 Ct abdomen & pelvis w/contrast material Teresita Castaneda MD Work Phone: Start: 08-09-2024 Antibody screen ZARA SPANN Comment on above: Performed By: #### [id number] ####Medical Di jorge: CARMEL HOWARD ([id number])[facility] ([facility])[address] [place] [address] Start: 08-09-2024 ABO and Rh group [Type] in Blood by Confirmatory method Dano James PA-C Work Phone: Start: 08-09-2024 Blood typing serologic abo Dano James PA-C Work Phone: Start: 08-09-2024 Comprehensive metabolic panel Dano Dahl mercedes GUERRA Work Phone: Start: 08-09-2024 Ecg routine ecg w/least 12 lds i&r only Dano James PA-C Work Phone: Start: 08-09-[address] Dante Gurrola DO Work Phone: Start: 08-09-2024 SARS-CoV-2, Influenza & RSV (PCR) Dr. Abeba Gurrola DO Work Phone: Start: 08-09-2024 CT of abdomen and pelvis without contrast Dr. Dante Gurrola DO Work Phone: Start: 08-09-2024 CT angiography [...] Result Comment: URINALYSIS Performed By: #### [id number] #### [facility],[address] [place] [address] Plan of Treatment Date Care Activity Detail Author Start: 2029 RSV Immunization for Adults (1 - 1-dose 75+ series) RSV Immunization for Adults (1 - 1-dose 75+ series) [facility] Start: 01-01-2025 Patient discharge [facility] Start: 12-04-2024 Influenza vaccination Influenz a Vaccine (Season Ended) [facility] Start: 09-28-2024 End: 09-28-2024 Patient encounter procedure 09/28/2024 9:30 AM EDT Office Visit [facility] [place] [address] [place] [id number] Zara Spann DO [address] [place] [address] [facility] [place] Start: 09-22-2024 End: 09-15-2025 CBC panel - Blood by Automated count CBC Lab Routine Hematemesis Duodenal perforation (CMS/HCC) (HCC) Expected: 09/22/2024 (Approximate), Expires: 09/15/2025 [facility] Work Phone: Comment on above: Expected: 09/22/2024 (Approximate), Expires: 09/15/2025 Start: 09-09-2024 [facility] Start: 08-24-2024 End: 08-24-2024 Patient encounter procedure 08/24/2024 9:45 AM EDT Office Visit [facility] [place] [address] [place] [id number] Zara Spann DO [address] [place] [address] [facility] [place] Start: 08-09-2024 Patient discharge [facility] Start: 08-09-[address] [facility] Start: 08-09-[address] [facility] Start: 08-09-2024 Preoperative care [facility] Start: 08-09-2024 [facility] Start: 08-09-2024 Referral to general surgeon [facility] Start: 08-09-2024 Referral to vascular surgeon [facility] Start: 08-09-2024 [facility] Start: 08-08-2024 Following clinical p athway protocol [facility] Start: 08-08-2024 [facility] Start: 08-07-[address] [facility] Start: 08-07-2024 Administration of bl ood product [facility] Start: 08-07-2024 [facility] Start: 08-06-2024 Administration of bl ood product [facility] Start: 08-06-2024 Transfusion of red b lood cells [facility] Start: 08-05-2024 [facility] Start: 08-05-2024 Application of intermittent pneumatic compression device [facility] Start: 08-05-2024 Following clinical p athway protocol [facility] Start: 08-05-[address] [facility] Start: 08-05-2024 Assessment of risk o f venous thromboembolism [facility] Start: 08-05-2024 Insertion of cathete r into peripheral vein [facility] Start: 08-05-2024 Providing care accor ding to standard [facility] Start: 08-05-2024 Referral to gastroenterology service [facility] Start: 08-05-2024 [facility] Start: 08-05-2024 Admission procedure [facility] Start: 05-06-2024 [facility] Start: 12-05-2023 COVID-19 Vaccine ( season) COVID-19 Vaccine ( season) [facility] Start: 2014 RSV Immunization for Adults (1 - Risk 60-74 years 1-dose series) RSV Immunization for Adults (1 - Risk 60-74 years 1-dose series) [facility] Start: 2004 Pneumococcal Vaccine : 50+ Years (1 of 1 - PCV) Pneumococcal Vaccine: 50+ Years (1 of 1 - PCV) [facility] Start: 2004 Zoster Vaccines (1 of 2) Zoste r Vaccines (1 of 2) [facility] Start: 1973 DTaP/Tdap/Td Vaccine s (1 - Tdap) DTaP/Tdap/Td Vaccines (1 - Tdap) [facility] Start: 1973 Pneumococcal Vaccine : 50+ Years (1 of 2 - PCV) Pneumococcal Vaccine: 50+ Years (1 of 2 - PCV) [facility] Start: 1972 Hepatitis C screening Hepatitis C Sc reening [facility] Start: 1966 Depression Screening Depression Scre ening [facility] Start: 1954 Lipid panel Lipid Panel [facility] Start: 1954 Screening for malign ant neoplasm of colon [facility] End: 08-11-2024 Aerobic and Anaerobic Culture with Stain [facility] Comment on above: Once (Lab) for 1 Occ urrences starting 08/11/2024 until 08/11/2024 Bacteria identified in Unspecified specimen by Aerobe culture Culture, Aerobic Bacteria with Gram Stain Microbiology Routine 08/12/2024 10:20 AM EDT [facility] End: 08-11-2024 Bacteria identified in Unspecified specimen by Anaerobe culture [facility] Comment on above: Once for 1 Occurrenc es starting 08/11/2024 until 08/11/2024 End: 08-09-2024 Helicobacter pylori Ag [Presence] in Stool by Immunoassay H. pylori Stool Antigen Microbiology Routine Once (Lab) for 1 Occurrences starting 08/09/2024 until 08/09/2024 [facility] Work Phone: Comment on above: Once (Lab) for 1 Occ urrences starting 08/09/2024 until 08/09/2024 Patient Education Abdominal Pain Eating a High-Fiber Diet ED Constipation (Adult) [facility] Work Phone: Patient referral [facility] Work Phone: Tissue exam [facility] Comment on above: Release Upon Orderin g for 1 Occurrences starting 08/10/2024, 1 completed End: 08-11-2024 XR Abdomen Single view [facility] Work Phone: Comment on above: Once for 1 Occurrenc es starting 08/11/2024 until 08/11/2024 Payers Date Payer Category Payer Commercial Managed C are - [facility] [id number] 2024 Self-pay 2024 Unknown [id number] 1955 Unknown [id number]. 2.732 Unknown [id number] [id number]. 2.462 Unknown [id number] 2.16840.1.962706.3.579. 2.462 Unknown [id number] 2.16.840.1.762173.3.579. 2.462 Unknown [id number] 2.16.840.1.204807.3.579. 2.462 Unknown [id number] 2.16.840.1.374092.3.579. 2.462 Unknown [id number] 2.16.840.1.693116.3.579. 2.462 Unknown [id number] 2.16.840.1.325010.3.579. 2.462 Unknown [id number] 2.16.840.1.459685.3.579. 2.462 Unknown [id number] 2.16.840.1.935215.3.579. 2.462 Unknown [id number] 2.16.840.1.206153.3.579. 2.462 Unknown [id number] 2.840.1.343751.3.579. 2.462 Unknown [id number] 2.16840.1.715980.3.579. 2.462 Unknown [id number] 2.16840.1.336652.3.579. 2.462 Unknown [id number] 2.16.840.1.637525.3.579. 2.462 Unknown [id number] 2.16.840.1.450091.3.579. 2.462 Unknown [id number] 2.840.1.029576.3.579. 2.462 Unknown [id number] 2.16840.1.025420.3.579. 2.462 Unknown [id number] 2.840.1.390158.3.579. 2.462 Unknown [id number] [id number]. 2.462 Social History Date Type Detail Facility Start: 08-05-2024 End: 12-28-2024 Tobacco smoking status NJIS Never smoked tobacco (finding) [facility] Start: 01-22-2020 Alcohol Alcohol [facility] Start: 01-22-2020 Drugs Drugs [facility] Start: 01-22-2020 Lives Lives [facility] Start: 01-22-2020 Tobacco Use Tobacco Use [facility] Start: 1955 Sex Assigned At Male W [facility] Start: 08-12-2024 Tobacco use and exposure Smoke less tobacco non-user [facility] Start: 08-12-2024 End: 09-28-2024 Alcoholic beverage intake Current drinker of alcohol (finding) [facility] Start: 08-12-2024 End: 08-25-2024 Alcoholic beverage intake [facility] Start: 08-12-2024 End: 08-25-2024 [facility] Prescreen [facility] Has the [employer], [employer], or water Campus Sponsorship threatened to shut off services in your home in past 12Mo No [facility] How often to you hav e a drink containing alcohol? 2-3 time sa week [facility] How many standard dr inks containing alcohol do you have on a typical day? 1 or 2 [facility] How often do you hav e 6 or more drinks on 1 occasion? Never [facility] (I/We) worried wheth er (my/our) food would run out before (I/we) got money to buy more. Never true [facility] In the past 12 month s, has lack of transportation kept you from medical appointments or from getting medications? No [facility] Start: 1955 Sex assigned at Not on file [facility] Start: 08-09-2024 Sex Male (finding) [facility] Start: 09-28-2024 Alcohol Comment 2ounces [facility] Medical Equipment Procedure Code Equipment Code Equipment Original Text Equipment Identifier Dates EGD, with monitored anesthesia care Gastrointestinal endoscopic clip, long-term, non-bioabsorbable ()[id number] FDA Start: 08-07-2024 EGD, with monitored anesthesia care Gastrointestinal endoscopic clip, long-term, non-bioabsorbable ()[id number] FDA Start: 08-07-2024 EGD, with monitored anesthesia care Bare-metal duodenal stent ()[id number] FDA Start: 08-07-2024 EGD, with monitored anesthesia care Ligation clip, metallic ()[id number] FDA Start: 08-07-2024 Vena cava filter , temporary/permanent ()[id number] FDA Start: 08-09-2024 Coil Embo Embold 3mm 12cm - [id number] Start: 09-12-2024 Coil Embo Embold 4mm 15cm - [id number] Start: 09-12-2024 Coil Embl 5cm 5m m .035 3.1loop - [id number] Start: 09-12-2024 Coil Embl 5cm 5m m .035 3.1loop - [id number] Start: 09-12-2024 Coil Embo Embold 5mm 15cm - [id number] Start: 09-12-2024 Coil Embo Embold 6mm 10cm - [id number] Start: 09-12-2024 Coil Embo Embold Packing Us 30 - [id number] Start: 09-12-2024 Device Closure Angio-Seal 6f - [id number] Start: 09-12-2024 Goals Date Patient Goal Desired Activity /State Functional Status Date Assessment Result Facility 09-08-2024 Total score [AUDIT-C] 0 09/09/19 25 11:42 AM EDT Terri Adair, TOBIAS [facility] 08-24-2024 Total score [AUDIT-C] 0 08/25/19 25 10:36 PM EDT Miles Redmond, TOBIAS [facility] 08-09-2024 Functional status Ambulates [facility] Work Phone: 08-08-2024 Functional status None [facility] Work Phone: [facility] Mental Status Date Assessment Result Facility 01-01-2025 Cognitive function Voice/Name [facility] Work Phone: 09-09-2024 Cognitive function Voice/Name [facility] Work Phone: 08-09-2024 Cognitive function Voice/Name [facility] Work Phone: Clinical Notes 06-29-2022 to 01-01-2025 Note Date & Type Note Facility 01-01-[address] [facility] 01-01-[address] [facility] 01-01-[address] [facility] 01-01-[address] [facility] 01-01-[address] [facility] 01-01-2025 Consult note Note Date/Time January 01, 2025 6:43am [facility] Medical Records Department [address] [place] [address] Pre-Anesthesia Evaluation 01/01/25 0639 MR#: [id number] Acct: [id number] Name: LAINE GARCIA Ned Rep #:[id number] : 1955 69 From: Driss Marino PCP: Dr. Dante Gurrola MD Status:REG S DC Y Race: C Location: [place] [address] ASA Classification* ASA Classification ASA Classification: 2 [...] risk assessments. Anesthesia Type Anesthesia Type: MAC History Source History Obtained from:: Patient and Chart Anesthesia Focused Assessment* Temperature: 97.0 F Pulse Rate: 50 Blood Pressure: 160/91 Respiratory Rate: 12 Pulse Ox: 95 Oxygen Delivery Method: Room Air Airway Assessment Mouth opens: >3 cm Mallampati Score: II Labs Anesthesia Preop lab: CBC WBC, (4.4-11.0) 10.6 K/mm3 09/09/24, 07:18 RBC, (4.6-6.2) 2.27 M/mm3 L 09/09/24, 07:18 Hgb, (13.0-16.5) 6.6 g/dL L 09/09/24, 07:18 Hct, (40-54) 20.8 % L 09/09/24, 07:18 Plt Count, (150-450) 217 K/mm3 09/09/24, 07:18 CHEMISTRY Potassium, (3.3-5.1) 4.6 mmol/L 09/09/24, 07:18 Sodium, (133-145) 141 mmol/L 09/09/24, 07:18 Magnesium, (1.5-2.2) 1.9 mg/dL 08/09/24, 06:13 Phosphorus, (2.7-4.5) 1.3 mg/dL L* 08/09/24, 06:13 BUN, (4-19) 24 mg/dL H 09/09/24, 07:18 Creatinine, (0.70-1.20) 0.72 mg/dL 09/09/24, 07:18 Glucose, (70-99) 177 mg/dL H 09/09/24, 07:18 COAG PT, (11.7-14.9) 16.0 SECONDS H 08/07/24, 12:26 Pre-Assessment Diagnosis/Proposed Procedure Planned Operative Procedure(s): Colonoscopy,EGD Anesthesia History Anesthesia History - welt insole channeler: Anesthesia History - welt insole channeler Hx Hospitalization Yes: 5 AND 6-25 GI BLEED, 12/28/24 15:38 THEN DEVELOPED BLOOD CLOTS Any Problems With Anesthesia No 12/28/24 15:38 Cholinesterase deficiency No 12/28/24 15:38 You/Your Family Experience No 12/28/24 15:38 fever (hyperthermia) with Relationship Recent Exposure to Contagious No 01/01/25 05:56 Disease Does patient have nerve No 12/28/24 15:38 stimulator Patient instructed to have device shut off --Does patient have Pacemaker No 01/01/25 05:56 or ICD? When Was Last Pacemaker Check QUESTION #4 FULL TEXT: You/Your Family Experience fever (hyperthermia) with Anesthesia Last Oral Intake Last Oral intake: Last Oral Intake NPO since 02:30 01/01/25 05:56 Meds taken in AM with sips of No 01/01/25 05:56 water? Meds patient instructed to take am of surgery PONV PONV - welt insole channeler: PONV - welt insole channeler Female No 12/28/24 15:38 HX of Motion Sickness No 12/28/24 15:38 HX of N/V After Surgery No 12/28/24 15:38 Non-Smoker Yes 12/28/24 15:38 Duration of Surgery greater No 12/28/24 15:38 than 60 minutes Number of Risk Factors 1 12/28/24 15:38 PONV Score Low Risk 12/28/24 15:38 Height & Weight Height & Weight: Anesthesia: Height & Weight Height 5 ft 10 in 01/01/25 05:56 Weight: 81.1 kg 01/01/25 05:56 Body Mass Index (BMI) 25.6 01/01/25 05:56 Respiratory Assessment Respiratory Assessment - welt insole channeler: Respiratory Tract Infection Hx - welt insole channeler Hx Respiratory Tract Infection No 12/28/24 15:38 STOP Sleep Apnea STOP Sleep Apnea - welt insole channeler: STOP Sleep Apnea - welt insole channeler Hx Hypertension No 12/28/24 15:38 Hx Sleep Apnea No 12/28/24 15:38 CPAP BIPAP Do you snore loudly (louder No 12/28/24 15:38 than talking or can be heard Do you often feel tired/ No 12/28/24 15:38 fatigued/ sleepy during daytime? Has anyone observed you stop No 12/28/24 15:38 breathing during sleep? STOP Results Negative 12/28/24 15:38 QUESTION #5 FULL TEXT : Do you snore loudly (louder than talking or can be heard through closed doors)? 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 Specify any problems Hx of Preganancy in last 3 N/A 12/28/24 15:38 Months Nurse Filling Out Transfusion JENNIFER 12/28/24 15:38 & Questions: Date: 12/28/24 12/28/24 15:38 Time: 15:40 12/28/24 15:38 Patient unable to answer at this time (ie. confused, unrespo /Reproduction History /Reproductive History - welt insole channeler: /Reproductive Hx- welt insole channeler Hx Now No 12/28/24 15:38 Gestational Age (in weeks): EDC: Hx Hx Para Hx Section SAB No 12/28/24 15:38 Active Medications Active Medications: Current Medications Generic Name Dose Route Start Last Admin Trade Name Freq PRN Reason Stop Dose Admin Lactated Ringer's 1,000 mls @ 15 mls/hr 01/01/25 05:45 01/01/25 06:03 IV 15 mls/hr .Q48H MARSHA Administration PFSH Medical History Wears glasses Hx of pulmonary embolus History of GI bleed Non-smoker History of DVT (deep vein thrombosis) Mitral valve prolapse Home Medications ?Medication ?Instructions ?Recorded ?Last Taken ?Type multivitamin 1 tab PO DAILY supplement 12/30/24 History omega-3 fatty acids 1,000 mg 2,000 mg PO BID supplemen t 01/22/20 12/28/24 History capsule Allergy/AdvReac Type Severity Reaction Status Date / Time Penicillins AdvReac PT UNABLE Verified 01/01/25 05:55 TO RESPOND-NEEDS F/U Family History Father Myocardial infarction Mother CVA (cerebral vascular accident) Surgical History Hx of colonoscopy H/O shoulder surgery History of repair of hiatal hernia Social History Smoking Status: Never smoker alcohol intake: never Addt'l Information Additional Findings: NSR on EKG Review of Systems (Anesthesia) ROS Narrative System reviewed and no additional complaints, except as documented. Physical Exam Const alert, oriented x3 and average body habitus Orientation / Consciousness: awake Neck full ROM Resp normal respiratory effort Auscultation: clear to auscultation bilaterally Cardio regular rate Neuro oriented x3 and moves all extremities 01/01/25 0643 <Electronically signed by Driss Payne MD> Date _ Driss Payne MD Cosigner Signature: Date CC: ~ Signed [facility] Work Phone: 1(247) 730-134709-29-2025 History and physical note Author Betito Avendano [facility] Note Date/Time January 01, 2025 6:38am [facility] Medical Records Department [address] [place] [id number] History & Physical Exam 01/01/25 0636 MR#: [id number] Acct: [id number] Name: LAINE GARCIA Rep #:[id number] : 1955 69 From: Betito Avendano PCP: Dr. Dante Gurrola MD Status:[facility] [place] Location: [place] [address] HPI - General General Date of Admission: 01/01/25 Date of Service: 01/01/25 Chief Complaint: Peptic ulcer disease HPI Narrative LAINE GARCIA, is a 69 M who presents for surveillance of gastric ulcer abd/pelvis CT 05.06.24 1. Right renal cyst. 2. Left paravertebral cysts. 3. Left hepatic lobe cyst. 4. Other nonacute findings detailed above. [facility] hospitalization 08.05.24 - 08.09.24 abd pain - consulted for GI bleed abd/pelvis CT 08.05.24 1. Punctate gas within the proximal duodenum with mild duodenal thickening, which is nonspecific and may represent duodenitis or non perforated duodenal ulcer. 2. Otherwise unremarkable CT abdomen pelvis. EGD 08.05.24 Normal esophagus. No gross lesions in the entire stomach. Spurting duodenal ulcers with a visible vessel. Injected. Treated with argon plasma coagulation (APC). Non-bleeding duodenal ulcers with no stigmata of bleeding. Treated with argon plasma coagulation (APC). No specimens collected. EGD .08.27 Normal esophagus. Normal stomach. Oozing duodenal ulcers with a visible vessel. Injected. Treated with argon plasma coagulation (APC). Prosthesis placed. Clips were placed. 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 abd/pelvis CT .08.27 Interval placement gastroduodenal stent, since prior. No pneumoperitoneum. Otherwise, no acute findings in the abdomen and pelvis. abd/pelvis CT 08.09.24 1. Redemonstrated small to moderate volume ill-defined free fluid and air in the perisplenic/subdiaphragmatic region, suggesting perforated viscus, presumably related to [...] Refer to recent CTA chest report for intrathoracicfindings. 4. Additional description as above. Had surgical procedure at [facility] OV 5 pt reports that he is feeling better since hospitalization and since having procedure to fix hole in abdomen. Pt reports continued gas and bloatingdiscomfort, but reports that this is improving. Reports that bm are returning tonormal and has not had blood in stool. [facility] ED 09.09.24 Alt LOC - GI bleed, hypotension, and alt mental status - was transferred to [facility] had two EGDs and was discharged 09.15.24 abd/pelvis CTA 09.09.24 1. No evidence of acute contrast extravasation, to suggest gastrointestinal bleed. 2. No evidence of acute aortic dissection, thrombosis or pseudoaneurysm formation. 3. Interval migration previously noted gastroduodenal stent, now within the distal transverse colon of the splenic flexure. 4. Other findings as described above. OV 8 pt reports that he is feeling better since hospitalization, has some ongoing left sided abdominal discomfort. Pt reports that [facility] is just [facility] Medical History Wears glasses Hx of pulmonary embolus History of GI bleed Non-smoker History of DVT (deep vein thrombosis) Mitral valve prolapse Home Medications ?Medication ?Instructions ?Recorded ?Last Taken ?Type multivitamin 1 tab PO DAILY supplement 12/30/24 History omega-3 fatty acids 1,000 mg 2,000 mg PO BID supplemen t 01/22/20 12/28/24 History capsule Allergy/AdvReac Type Severity Reaction Status Date / Time Penicillins AdvReac PT UNABLE Verified 01/01/25 05:55 TO RESPOND-NEEDS F/U Family History Father Myocardial infarction Mother CVA (cerebral vascular accident) Surgical History Hx of colonoscopy H/O shoulder surgery History of repair of hiatal hernia Social History Smoking Status: Never smoker alcohol intake: never ROS Constitutional Constitutional: Denies fatigue, fever(s), poor appetite, weight gain or weight loss Gastrointestinal Gastrointestinal: Denies belching, bloating, change in bowel habits, change in stool character, chewing difficulty, coffee ground emesis, constipation, cramping, diarrhea, dyspepsia, dysphagia, early satiety, excessive flatus, fecalincontinence, heartburn, hematemesis, hematochezia, hemorrhoids, loose stools, melena, nausea, odynophagia, rectal bleeding, tenesmus, vomiting or weight changes Vital Signs Vital Signs Vital Signs: 01/01/25 05:56 01/01/25 05:56 Temperature 97.0 F L Temperature Source Temporal Pulse Rate 50 L Respiratory Rate 12 Respiratory Pattern Normal Blood Pressure 160/91 H Blood Pressure Mean 114 Blood Pressure Source Monitor Blood Pressure Position Semi-Fowlers Blood Pressure Location Right Arm Pulse Ox 95 Oxygen Delivery Method Room Air Weight Weight: 178 lb 12.718 oz Body Mass Index (BMI) 25.6 Physical Exam Const alert, oriented x3, no apparent distress and healthy appearing General Appearance: cooperative GI normal to inspection, nondistended, normoactive bowel sounds, soft to palpation,non-tender and non-distended Percussion: normal to percussion Rectal Exam: deferred Assessment & Plan Assessment/Plan (1) Acute anemia: (2) Upper GI bleed: (3) Duodenal ulcer: PLAN: Assessment and Plan Assessment and Plan (1) Pulmonary embolism: Status: Acute Qualifiers: Pulmonary embolism type: multiple subsegmental (without acute cor pulmonale) Qualified Code(s): I26.94 - Multiple subsegmental thrombotic pulmonary emboli without acute cor pulmonale (2) Duodenal ulcer: Status: Acute Plan: 69-year-old gentleman with Acute on chronic anemia [...] is 9.8. He underwent repeat upper endoscopy . And had his duodenal ulcer treated again with epinephrine argon plasma coagulation and cautery. He also had a duodenal stent placed with severe stricture with gastric outlet obstruction. He had a lot of r etained gas consistent with ileus after the procedure so NG tube was placed. NG tube came out overnight. His CT scan had showed improvement of gas without any signs of pneumoperitoneum. * Patient will be transferred to higher level of care for as it is assumed that he has air underneath the diaphragm secondary to worsening duodenal ulcer. This is recommended by general surgery as he may need a more advanced procedure than we can provide at this institution. * He underwent evaluation at outside institution. He ended up having laparoscopic oversewn duodenal perforation repair. From the surgery his duodenal stent had migrated. He is also undergoing a takedown of a Basia fundoplication and IR coiling of blood vessel feeding duodenal ulcer. * He was on iron therapy. He is not on iron therapy at this time. He is only taking Carafate for his duodenal ulcers. His last hemoglobin was 9.7. He has been having some left lower quadrant left upper quadrant pain. He comes back in for scheduled EGD and colonoscopy for evaluation of his abdominal pain. He does take stool softeners because of intermittent constipation. Recommendations: Restart iron therapy with vitamin C twice a day, hold Carafate. Will schedule repeat colonoscopy. He was explained alternatives, risk and benefits of the study bleeding complex, septal, perforation, need for injection. He will have an ASA of 3. (3) Abdominal pain: Status: Acute 01/01/25637 <Electronically signed by Betito Avendano DO> Cosigner Signature (if applicable): CC: Dr. Dante Gurrola MD; Betito Avendano DO~ Signed [facility] Work Phone: [phone]) 216-852809-29-2025 Consult note [facility] Medical Records Department [address] [place] [address] Anesthesia Postop Eval I 01/01/2531 MR#: [id number] Acct: [id number] Name: LAINE GARCIA Ned Rep #:[id number] : 1955 69 From: Damien Santiago PCP: Dr. Dante Gurrola MD Status:REG S DC Y Race: C Location: [place] [address] Anesthesia: Postop Eval I Current Vital Signs Temperature: 97.4 F Pulse Rate: 47 Blood Pressure: 113/56 Respiratory Rate: 16 Pulse Ox: 100 Oxygen Delivery Method: Room Air Assessment Airway patent: Yes Spontaneous unlabored respirations: Yes Mental status: Asleep nausea: No Vomiting: No Anesthesia Complication: No Fluid Hydration Crystalloid volume administer (ml): 700 Total IV fluid infused: 700 Progress Note Anesthesia document: Postop Eval 1 completed: Yes 01/01/25 0735 > Date _ Damien Ely Signature: Date CC: ~ Signed [facility]09-29-2025 Consult note [facility] Medical Records Department [address] [place] [address] Pre-Anesthesia Evaluation 01/01/25 0639 MR#: [id number] Acct: [id number] Name: LAINE GARCIA Rep #:[id number] : 1955 69 From: Driss Marino PCP: Dr. Dante Gurrola MD Status:REG S DC Y Race: C Location: [place] [address] ASA Classification* ASA Classification ASA Classification: 2 [...] risk assessments. Anesthesia Type Anesthesia Type: MAC History Source History Obtained from:: Patient and Chart Anesthesia Focused Assessment* Temperature: 97.0 F Pulse Rate: 50 Blood Pressure: 160/91 Respiratory Rate: 12 Pulse Ox: 95 Oxygen Delivery Method: Room Air Airway Assessment Mouth opens: >3 cm Mallampati Score: II Labs Anesthesia Preop lab: CBC WBC, (4.4-11.0) 10.6 K/mm3 09/09/24, 07:18 RBC, (4.6-6.2) 2.27 M/mm3 L 09/09/24, 07:18 Hgb, (13.0-16.5) 6.6 g/dL L 09/09/24, 07:18 Hct, (40-54) 20.8 % L 09/09/24, 07:18 Plt Count, (150-450) 217 K/mm3 09/09/24, 07:18 CHEMISTRY Potassium, (3.3-5.1) 4.6 mmol/L 09/09/24, 07:18 Sodium, (133-145) 141 mmol/L 09/09/24, 07:18 Magnesium, (1.5-2.2) 1.9 mg/dL 08/09/24, 06:13 Phosphorus, (2.7-4.5) 1.3 mg/dL L* 08/09/24, 06:13 BUN, (4-19) 24 mg/dL H 09/09/24, 07:18 Creatinine, (0.70-1.20) 0.72 mg/dL 09/09/24, 07:18 Glucose, (70-99) 177 mg/dL H 09/09/24, 07:18 COAG PT, (11.7-14.9) 16.0 SECONDS H 08/07/24, 12:26 Pre-Assessment Diagnosis/Proposed Procedure Planned Operative Procedure(s): Colonoscopy,EGD Anesthesia History Anesthesia History - welt insole channeler: Anesthesia History - welt insole channeler Hx Hospitalization Yes: 5 AND 6-25 GI BLEED, 12/28/24 15:38 THEN DEVELOPED BLOOD CLOTS Any Problems With Anesthesia No 12/28/24 15:38 Cholinesterase deficiency No 12/28/24 15:38 You/Your Family Experience No 12/28/24 15:38 fever (hyperthermia) with Relationship Recent Exposure to Contagious No 01/01/25 05:56 Disease Does patient have nerve No 12/28/24 15:38 stimulator Patient instructed to have device shut off --Does patient have Pacemaker No 01/01/25 05:56 or ICD? When Was Last Pacemaker Check QUESTION #4 FULL TEXT: You/Your Family Experience fever (hyperthermia) with Anesthesia Last Oral Intake Last Oral intake: Last Oral Intake NPO since 02:30 01/01/25 05:56 Meds taken in AM with sips of No 01/01/25 05:56 water? Meds patient instructed to take am of surgery PONV PONV - welt insole channeler: PONV - welt insole channeler Female No 12/28/24 15:38 HX of Motion Sickness No 12/28/24 15:38 HX of N/V After Surgery No 12/28/24 15:38 Non-Smoker Yes 12/28/24 15:38 Duration of Surgery greater No 12/28/24 15:38 than 60 minutes Number of Risk Factors 1 12/28/24 15:38 PONV Score Low Risk 12/28/24 15:38 Height & Weight Height & Weight: Anesthesia: Height & Weight Height 5 ft 10 in 01/01/25 05:56 Weight: 81.1 kg 01/01/25 05:56 Body Mass Index (BMI) 25.6 01/01/25 05:56 Respiratory Assessment Respiratory Assessment - welt insole channeler: Respiratory Tract Infection Hx - welt insole channeler Hx Respiratory Tract Infection No 12/28/24 15:38 STOP Sleep Apnea STOP Sleep Apnea - welt insole channeler: STOP Sleep Apnea - welt insole channeler Hx Hypertension No 12/28/24 15:38 Hx Sleep Apnea No 12/28/24 15:38 CPAP BIPAP Do you snore loudly (louder No 12/28/24 15:38 than talking or can be heard Do you often feel tired/ No 12/28/24 15:38 fatigued/ sleepy during daytime? Has anyone observed you stop No 12/28/24 15:38 breathing during sleep? STOP Results Negative 12/28/24 15:38 QUESTION #5 FULL TEXT : Do you snore loudly (louder than talking or can be heard through closeddoors)? 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 Specify any problems Hx of Preganancy in last 3 N/A 12/28/24 15:38 Months Nurse Filling Out Transfusion JZOLLINGE 12/28/24 15:38 & Questions: Date: 12/28/24 12/28/24 15:38 Time: 15:40 12/28/24 15:38 Patient unable to answer at this time (ie. confused, unrespo /Reproduction History /Reproductive History - welt insole channeler: /Reproductive Hx- welt insole channeler Hx Now No 12/28/24 15:38 Gestational Age (in weeks): EDC: Hx Hx Para Hx Section SAB No 12/28/24 15:38 Active Medications Active Medications: Current Medications Generic Name Dose Route Start Last Admin Trade Name Christine PRN Reason Stop Dose Admin Lactated Ringer's 1,000 mls @ 15 mls/hr 01/01/25 05:45 01/01/25 06:03 IV 15 mls/hr .Q48H MARSHA Administration PFSH Medical History Wears glasses Hx of pulmonary embolus History of GI bleed Non-smoker History of DVT (deep vein thrombosis) Mitral valve prolapse Home Medications ?Medication ?Instructions ?Recorded ?Last Taken ?Type multivitamin 1 tab PO DAILY supplement 12/30/24 History omega-3 fatty acids 1,000 mg 2,000 mg PO BID supplemen t 01/22/20 12/28/24 History capsule Allergy/AdvReac Type Severity Reaction Status Date / Time Penicillins AdvReac PT UNABLE Verified 01/01/25 05:55 TO RESPOND-NEEDS F/U Family History Father Myocardial infarction Mother CVA (cerebral vascular accident) Surgical History Hx of colonoscopy H/O shoulder surgery History of repair of hiatal hernia Social History Smoking Status: Never smoker alcohol intake: never Addt'l Information Additional Findings: NSR on EKG Review of Systems (Anesthesia) ROS Narrative System reviewed and no additional complaints, except as documented. Physical Exam Const alert, oriented x3 and average body habitus Orientation / Consciousness: awake Neck full ROM Resp normal respiratory effort Auscultation: clear to auscultation bilaterally Cardio regular rate Neuro oriented x3 and moves all extremities 01/01/25 0643 MD> Date _ Driss Payne MD Cosigner Signature: Date CC: ~ Signed [facility]09-29-2025 History and physical note [facility] Medical Records Department [address] [place] [address] History & Physical Exam 01/01/25 0636 MR#: [id number] Acct: [id number] Name: LAINE GARCIA Rep #:[id number] : 1955 69 From: [facility] Friend DO PCP: Dr. Dante Gurrola MD Status:REG S DC Location: [place] [address] HPI - General General Date of Admission: 01/01/25 Date of Service: 01/01/25 Chief Complaint: Peptic ulcer disease HPI Narrative LAINE GARCIA, is a 69 M who presents for surveillance of gastric ulcer abd/pelvis CT 2.04.29 1. Right renal cyst. 2. Left paravertebral cysts. 3. Left hepatic lobe cyst. 4. Other nonacute findings detailed above. [facility] hospitalization 5.06.27 - 5 abd pain - consulted for GI bleed abd/pelvis CT 5.06.27 1. Punctate gas within the proximal duodenum with mild duodenal thickening, which is nonspecific and may represent duodenitis or non perforated duodenal ulcer. 2. Otherwise unremarkable CT abdomen pelvis. EGD 5.06.27 Normal esophagus. No gross lesions in the entire stomach. Spurting duodenal ulcers with a visible vessel. Injected. Treated with argon plasma coagulation (APC). Non-bleeding duodenal ulcers with no stigmata of bleeding. Treated with argon plasma coagulation (APC). No specimens collected. EGD 5.08.27 Normal esophagus. Normal stomach. Oozing duodenal ulcers with a visible vessel. Injected. Treated with argon plasma coagulation (APC). Prosthesis placed. Clips were placed. 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 abd/pelvis CT 5.25 Interval placement gastroduodenal stent, since prior. No pneumoperitoneum. Otherwise, no acute findings in the abdomen and pelvis. abd/pelvis CT 5.10.27 1. Redemonstrated small to moderate volume ill-defined free fluid and air in the perisplenic/subdiaphragmatic region, suggesting perforated viscus, presumably related to previously suspected duodenal ulcer although this is not definite and proximity of these findings to the stomach is noted. A tiny focus of high density along the medial spleen is new from prior and is suspicio us for minimal extravasated PO contrast given a small amount of high-density presumed PO contrast within the stomach. 2. Findings suggestive of cystitis and/or chronic bladder outlet obstruction given prostatomegaly. Correlate with urinalysis. 3. Refer to recent CTA chest report for intrathoracicfindings. 4. Additional description as above. Had surgical procedure at [facility] OV 5. pt reports that he is feeling better since hospitalization and since having procedure tofix hole in abdomen. Pt reports continued gas and bloatingdiscomfort, but reports that this is improving. Reports that bm are returning tonormal and has not had blood in stool. [facility] ED 6 Alt LOC - GI bleed, hypotension, and alt mental status - was transferred to [facility] EGDs and was discharged 09.15.24 abd/pelvis CTA 6.10.27 1. No evidence of acute contrast extravasation, to suggest gastrointestinal bleed. 2. No evidence of acute aortic dissection, thrombosis or pseudoaneurysm formation. 3. Intervalmigration previously noted gastroduodenal stent, now within the distal transverse colon of the splenic flexure. 4. Other findings as described above. OV 8. pt reports that he is feeling better since hospitalization, has some ongoing left sided abdominal discomfort. Pt reports that he is just here to follow up from his hops[facility] visit. [facility] Medical History Wears glasses Hx of pulmonary embolus History of GI bleed Non-smoker History of DVT (deep vein thrombosis) Mitral valve prolapse Home Medications ?Medication ?Instructions ?Recorded ?Last Taken ?Type multivitamin 1 tab PO DAILY supplement 12/30/24 History omega-3 fatty acids 1,000 mg 2,000 mg PO BID supplemen t 01/22/20 12/28/24 History capsule Allergy/AdvReac Type Severity Reaction Status Date / Time Penicillins AdvReac PT UNABLE Verified 01/01/25 05:55 TO RESPOND-NEEDS F/U Family History Father Myocardial infarction Mother CVA (cerebral vascular accident) Surgical History Hx of colonoscopy H/O shoulder surgery History of repair of hiatal hernia Social History Smoking Status: Never smoker alcohol intake: never ROS Constitutional Constitutional: Denies fatigue, fever(s), poor appetite, weight gain or weight loss Gastrointestinal Gastrointestinal: Denies belching, bloating, change in bowel habits, change in stool character, chewing difficulty, coffee ground emesis, constipation, cramping, diarrhea, dyspepsia, dysphagia, earlysatiety, excessive flatus, fecalincontinence, heartburn, hematemesis, hematochezia, hemorrhoids, loose stools, melena, nausea, odynophagia, rectal bleeding, tenesmus, vomiting or weight changes Vital Signs Vital Signs Vital Signs: 01/01/25 05:56 01/01/25 05:56 Temperature 97.0 F L Temperature Source Temporal Pulse Rate 50 L Respiratory Rate 12 Respiratory Pattern Normal Blood Pressure 160/91 H Blood Pressure Mean 114 Blood Pressure Source Monitor Blood Pressure Position Semi-Fowlers Blood Pressure Location Right Arm Pulse Ox 95 Oxygen Delivery Method Room Air Weight Weight: 178 lb 12.718 oz Body Mass Index (BMI) 25.6 Physical Exam Const alert, oriented x3, no apparent distress and healthy appearing General Appearance: cooperative GI normal to inspection, nondistended, normoactive bowel sounds, soft to palpation,non-tender and non-distended Percussion: normal to percussion Rectal Exam: deferred Assessment & Plan Assessment/Plan (1) Acute anemia: (2) Upper GI bleed: (3) Duodenal ulcer: PLAN: Assessment and Plan Assessment and Plan (1) Pulmonary embolism: Status: Acute Qualifiers: Pulmonary embolism type: multiple subsegmental (without acute cor pulmonale) Qualified Code(s): I26.94 - Multiple subsegmental thrombotic pulmonary emboli without acute cor pulmonale (2) Duodenal ulcer: Status: Acute Plan: 69-year-old gentleman with Acute on chronic anemia [...] is 9.8. He underwent repeat upper endoscopy . And had his duodenal ulcer treated again with epinephrine argon plasma coagulation and cautery. He also had a duodenal stent placed with severe stricture with gastric outlet obstruction. He had a lot of r etained gas consistent with ileus after the procedure so NG tube was placed. NG tube came out overnight. His CT scan had showed improvement of gas without any signs of pneumoperitoneum. * Patient will be transferred to higher level of care for as it is assumed that he has air underneath the diaphragm secondary to worsening duodenal ulcer. This is recommended by general surgery as hemay need a more advanced procedure than we can provide at this institution. * He underwent evaluation at outside institution. He ended up having laparoscopic oversewn duodenalperforation repair. From the surgery his duodenal stent had migrated. He is also undergoing a takedown of a Basia fundoplication and IR coiling of blood vessel feeding duodenal ulcer. * He was on iron therapy. He is not on iron therapy at this time. He is only taking Carafate for his duodenal ulcers. His last hemoglobin was 9.7. He has been having some left lower quadrant left upper quadrant pain. He comes back in for scheduled EGD and colonoscopy for evaluation of his abdominalpain. He does take stool softeners because of intermittent constipation. Recommendations: Restart iron therapy with vitamin C twice a day, hold Carafate. Will schedule repeat colonoscopy. He was explained alternatives, risk and benefits of the study bleeding complex, septal, perforation, need for injection. He will have an ASA of 3. (3) Abdominal pain: Status: Acute 01/01/25637 Cosigner Signature (if applicable): CC: Dr. Dante Gurrola MD; Betito Friend, DO~ Signed [facility]09-29-2025 [facility] Medical Records Department [address] [place] [address] [place] [address] History Physical Exam 01/01/25 0636 MR#: [id number] Acct: [id number] Name: LAINE GARCIA Rep #: [id number] : 1955 69 From: Betito Friend DO PCP: Dr. Dante Gurrloa MD Status:[facility] Location: [place] [address] HPI - General General Date of Admission: 01/01/25 Date of Service: 01/01/25 Chief Complaint: Peptic ulcer disease HPI Narrative LAINE GARCIA, is a 69 M who presents for surveillance of gastric ulcer abd/pelvis CT .04.29 1. Right renal cyst. 2. Left paravertebral cysts. 3. Left hepatic lobe cyst. 4. Other nonacute findings detailed above. [facility] hospitalization .06.27 - 08.09.24 abd pain - consulted for GI bleed abd/pelvis CT 5.06.27 1. Punctate gas within the proximal duodenum with mild duodenal thickening, which is nonspecific and may represent duodenitis or non perforated duodenal ulcer. 2. Otherwise unremarkable CT abdomen pelvis. EGD 08.05.24 Normal esophagus. No gross lesions in the entire stomach. Spurting duodenal ulcers with a visible vessel. Injected. Treated with argon plasma coagulation (APC). Non-bleeding duodenal ulcers with no stigmata of bleeding. Treated with argon plasma coagulation (APC). No specimens collected. EGD .08.27 Normal esophagus. Normal stomach. Oozing duodenal ulcers with a visible vessel. Injected. Treated with argon plasma coagulation (APC). Prosthesis placed. Clips were placed. 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 abd/pelvis CT 5 Interval placement gastroduodenal stent, since prior. No pneumoperitoneum. Otherwise, no acute findings in the abdomen and pelvis. abd/pelvis CT 08.09.24 1. Redemonstrated small to moderate volume ill-defined free fluid and air in the perisplenic/subdiaphragmatic region, suggesting perforated viscus, presumably related to previously suspected duodenal ulcer although this is not definite and proximity of these findings to the stomach is noted. A tiny focus of high density along the medial spleen is new from prior and is suspicious for minimal extravasated PO contrast given a small amount of high- density presumed PO contrast within the stomach. 2. Findings suggestive of cystitis and/or chronic bladder outlet obstruction given prostatomegaly. Correlate with urinalysis. 3. Refer to recent CTA chest report for intrathoracic findings. 4. Additional description as above. Had surgical procedure at [facility] OV 5 pt reports that he is feeling better since hospitalization and since having procedure to fix hole in abdomen. Pt reports continued gas and bloating discomfort, but reports that this is improving. Reports that bm are returning to normal and has not had blood in stool. [facility] ED 09.09.24 Alt LOC - GI bleed, hypotension, and alt mental status - was transferred to [facility] had two EGDs and was discharged 09.15.24 abd/pelvis CTA 09.09.24 1. No evidence of acute contrast extravasation, to suggest gastrointestinal bleed. 2. No evidence of acute aortic dissection, thrombosis or pseudoaneurysm formation. 3. Interval migration previously noted gastroduodenal stent, now within the distal transverse colon of the splenic flexure. 4. Other findings as described above. OV 8 pt reports that he is feeling better since hospitalization, has some ongoing left sided abdominal discomfort. Pt reports that he is just here to follow up from his hopsital visit. [facility] Medical History Wears glasses Hx of pulmonary embolus History of GI bleed Non-smoker History of DVT (deep vein thrombosis) Mitral valve prolapse Home Medications ???Medication ???Instructions ???Recorded ???Last Taken ???Type multivitamin 1 tab PO DAILY supplement 01/22/20 12/30/24 History omega-3 fatty acids 1,000 mg 2,000 mg PO BID supplement 0 12/28/24 History capsule Allergy/AdvReac Type Severity Reaction Status Date / Time Penicillins AdvReac PT UNABLE Verified 01/01/25 05:55 TO RESPOND-NEEDS F/U Family History Father Myocardial infarction Mother CVA (cerebral vascular accident) Surgical History Hx of colonoscopy H/O shoulder surgery History of repair of hiatal hernia Social History Smoking Status: Never smoker alcohol intake: never ROS Constitutional Constitutional: Denies fatigue, fever(s), poor appetite, weight gain or weight loss Gastrointestinal Gastrointestinal: Denies belching, bloating, change in bowel habits, change in stool character, chewing difficulty, coffee ground emesis, constipation, cramping, diarrhea, dyspepsia, dysphagia, early satiety, excessive flatus, fec (more content not included)...[facility]08-19-2025 Evaluation note* Diagnosis Onset Date Resolution Status Admit Date Abdominal pain acute November 7:27am Duodenal ulcer acute November 7:27am Pulmonary embolism acute November 21, 2024 7:27am Acute anemia acute January 012024 5:26am Duodenal ulcer acute January 01, 2025 5:26am Upper GI bleed acute January 01, 2025 5:26am [facility] Work Phone: [phone]) 357-520908-19-2025 [facility] [address] [place] [address] OFFICE VISIT Date of Service: 11/21/24 MR#: [id number] Acct: [id number] Name: LAINE GARCIA Rep #: [id number] : 1955 Provider: Betito Avendano DO Age/Sex: 69/M [place] [facility] [place]: Signed Intake Vital Signs 09/09/24 06:30 Height 5 ft 10 in Intake Visit Reasons: Consultation for upper/lower scope Salt Maker Required: No Accompanied by: and Daughter Allergies Penicillins Adverse Reaction (Verified 09/09/24 06:30) PT UNABLE TO RESPOND-NEEDS F/U Medications ?Medication ?Instructions ?Recorded ?Confirmed ?Type multivitamin 1 tab PO DAILY supplement 11/21/24 History omega-3 fatty acids 1,000 mg 2,000 mg PO BID supplemen t 01/22/20 11/21/24 History capsule sucralfate 1 gram tablet 1 g PO QACHS 11/21/24 History Have you fallen in the past year?: No [facility] Medical History History of DVT (deep vein thrombosis) Mitral valve prolapse Surgical History H/O shoulder surgery History of repair of hiatal hernia Family History Father Myocardial infarction Mother CVA (cerebral vascular accident) Social History Smoking Status: Never smoker alcohol intake: never HPI HPI Details: LAINE GARCIA, is a 69 M who presents to the office today for follow up. abd/pelvis CT 2.04.29 1. Right renal cyst. 2. Left paravertebral cysts. 3. Left hepatic lobe cyst. 4. Other nonacute findings detailed above. [facility] hospitalization .06.27 - 5 abd pain - consulted for GI bleed abd/pelvis CT 5.06.27 1. Punctate gas within the proximal duodenum with mild duodenal thickening, which is nonspecific and may represent duodenitis or non perforated duodenal ulcer. 2. Otherwise unremarkable CT abdomen pelvis. EGD 5.06.27 Normal esophagus. No gross lesions in the entire stomach. Spurting duodenal ulcers with a visible vessel. Injected. Treated with argon plasma coagulation (APC). Non-bleeding duodenal ulcers with no stigmata of bleeding. Treated with argon plasma coagulation (APC). No specimens collected. EGD 5.25 Normal esophagus. Normal stomach. Oozing duodenal ulcers with a visible vessel. Injected. Treated with argon plasma coagulation (APC). Prosthesis placed. Clips were placed. 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 abd/pelvis CT 5.25 Interval placement gastroduodenal stent, since prior. No pneumoperitoneum. Otherwise, no acute findings in the abdomen and pelvis. abd/pelvis CT 5.10.27 1. Redemonstrated small to moderate volume ill-defined free fluid and air in the perisplenic/subdiaphragmatic region, suggesting perforated viscus, presumably related to previously suspected duodenal ulcer although this is not definite and proximity of these findings to the stomach is noted. A tiny focus of high density along the medial spleen is new from prior and is suspicio us for minimal extravasated PO contrast given a small amount of high-density presumed PO contrast within the stomach. 2. Findings suggestive of cystitis and/or chronic bladder outlet obstruction given prostatomegaly. Correlate with urinalysis. 3. Refer to recent CTA chest report for intrathoracicfindings. 4. Additional description as above. Had surgical procedure at [facility] OV 5 pt reports that he is feeling better since hospitalization and since having procedure tofix hole in abdomen. Pt reports continued gas and bloatingdiscomfort, but reports that this is improving. Reports that bm are returning tonormal and has not had blood in stool. [facility] ED 09.09.24 Alt LOC - GI bleed, hypotension, and alt mental status - was transferred to [facility] and was discharged 09.15.24 abd/pelvis CTA 09.09.24 1. No evidence of acute contrast extravasation, to suggest gastrointestinal bleed. 2. No evidence of acute aortic dissection, thrombosis or pseudoaneurysm formation. 3. Intervalmigration previously noted gastroduodenal stent, now within the distal transverse colon of the splenic flexure. 4. Other findings as described above. OV 8 pt reports that he is feeling better since hospitalization, has some ongoing left sided abdominal discomfort. Pt reports that he is just here to follow up from his hopsital visit. ROS Const Constitutional: No fatigue, fever(s) or weight change ENT ENT: No difficulty swallowing Gastro GI: Positive for abdominal pain, bloating, change in bowel habits, constipation,diarrhea and excessive flatus; No belching, change in stool character, coffee ground emesis, cramping, heartburn, difficulty swallowing, feeling full early, incontinent of stools, Vomiting blood/hematemesis, Blood in stool, loose stools, Black,tarry stools, nausea/dyspepsia, pain with swallowing, vomiting or other Musc Musculoskeletal: No joint pain Skin Skin: No yellowing of the eye or itchy eyes Psych Psychiatric: No anxiety and No depression Endo Endocrine: No fatigue or weight change Aller/Imm Allergy/Immunologic: No itchy eyes Herson/Lymp Hematologic/Lymphatic: No easy bleeding or easy bruising Exam Const General: cooperative, healthy appearing, comfortable and no acute distress Nutritional Appearance: average body habitus Orientation: alert and oriented x3 HENMT Head: normal to inspection Ears: hearing grossly normal bilaterally Nose: external nose normal Face and sinus: normal facial exam and face symmetric Mouth: oral mucosae normal Eyes General: appearance normal, both eyes and all related structures Sclera: sclerae normal Neck Neck: normal visual inspection and full ROM Chest Chest palpation & inspection: normal inspection of the chest Resp Effort & Inspection: normal respiratory effort, able to speak in complete sentences and symmetric chest movement GI Inspection: distended Auscultation: high-pitched sounds Palpation: firm and nontender Skin Rashes: rashes noted Neuro General: patient alert, patient oriented x3 and moves all extremities Cognition: normal cognition Speech: speech normal Gait: normal gait Extrem General: full ROM Psych Appearance: grossly normal Mental Status: mental status grossly normal Mood: congruent mood Affect: normal affect Speech and Movement: speech and movement normal Attitude: cooperative Thought Process: normal Judgment: judgment good Assessment and Plan Assessment and Plan (1) Pulmonary embolism: Status: Acute Qualifiers: Pulmonary embolism type: multiple subsegmental (without acute cor pulmonale) Qualified Code(s): I26.94 - Multiple subsegmental thrombotic pulmonary emboli without acute cor pulmonale (2) Duodenal ulcer: Status: Acute Plan: 69-year-old gentleman with Acute on chronic anemia [...] is 9.8. He underwent repeat upper endoscopy . And had his duodenal ulcer treated again [...] of gas without any signs of pneumoperitoneum. * Patient will be transferred to higher level of care for as it is assumed that he has air underneath the diaphragm secondary to worsening duodenal ulcer. This is recommended by general surgery as hemay need a more advanced procedure than we can provide at this institution. * He underwent evaluation at outside institution. He ended up having laparoscopic oversewn duodenalperforation repair. From the surgery his duodenal stent had migrated. He is also undergoing a takedown of a Basia fundoplication and IR coiling of blood vessel feeding duodenal ulcer. * He was on iron therapy. He is not on iron therapy at this time. He is only taking Carafate for his duodenal ulcers. His last hemoglobin was 9.7. He has been having some left lower quadrant left upper quadrant pain. He comes back in for scheduled EGD and colonoscopy for evaluation of his abdominalpain. He does take stool softeners because of intermittent constipation. Recommendations: Restart iron therapy with vitamin C twice a day, hold Carafate. Will schedule repeat colonoscopy. He was explained alternatives, risk and benefits of the study bleeding complex, septal, perforation, need for injection. He will have an ASA of 3. (3) Abdominal pain: Status: Acute Coding Level of Care Code Off vis,est,level 3 Diagnoses Multiple subsegmental pulmonary emboli without acute cor pulmonale I26.94 Pulmonary embolism type: multiple subsegmental (without acute cor pulmonale) Duodenal ulcer K26.9 Abdominal pain R10.9 Clinical Quality Measures Falls Risk Screening/Assistive Devices Have you fallen in the past year?: No 11/21/24 0811 d DO> Date _ Betito Friend DO Jhoana Signature: Date (if applicable) CC: ~ [facility]06-26-2025 History of Present illness Narrative* Ruba Baca PA-C - 09/28/2024 9:30 AM EDT [facility] - Surgery Patient Name: Laine Garcia Date: [...] Cuff Size: Adult) Pulse 71 Temp 36.5 C (97.7 F) (Temporal) Ht 1.803 m (5' 11) Wt 79.8 kg (176 lb) SpO2 97% BMI 24.55 kg/m Physical Exam: The wounds are healing [...] orders for this visit: Pneumoperitoneum (Primary) [place] [facility] [place] [facility]; Future Duodenal ulceration - [facility] [place] [facility]; Future Other orders - sucralfate (Carafate) [...] mg) by mouth every 12 hours. 60 capsule0 ferrous fumarate-vitamin C ER (Mickey-Sequeles 65-25) Take [...] by mouth 2 times daily. Do not crush,chew, or split. 60 tablet 0 sucralfate (Carafate) 1 g tablet Take 1 tablet (1 g) by mouth 4 times daily (before meals and nightly). 120 tablet 0 No current facility-administered medications for this visit. [3] Past Medical History: Diagnosis Date Hernia, internal MVP (mitral valve prolapse) Pulmonary embolism (HCC) documented in this [facility]06-26-2025 Miscellaneous Notes* Addendum Note - Kieran Hardin MD - 09/28/2024 9:30 AM EDTAddended by: KIERAN HARDIN on: 09/28/2024 10:03 AM Modules accepted: Orders documented in this [facility]06-26-2025 Note* Addendum Note - Kieran Hardin MD - 09/28/2024 9:30 AM EDTAddended by: KIERAN HARDIN on: 09/28/2024 10:03 AM Modules accepted: Orders [id number] Note* Addendum Note - Kieran Hardin MD - 09/28/2024 9:30 AM EDTAddended by: KIERAN HARDIN on: 09/28/2024 10:03 AM Modules accepted: Orders [id number] Note* Addendum Note - Kieran Hardin MD - 09/28/2024 9:30 AM EDTAddended by: KIERAN HARDIN on: 09/28/2024 10:03 AM Modules accepted: [id number] Plan of care note* Care Plan - Toño Cervantes RN - 09/15/2024 11:42 AM EDT Problem: Knowledge Deficit Goal: Patient/family/caregiver demonstrates understanding of disease process, treatment plan, medications, and discharge instructions Outcome: Adequate for Discharge Problem: Potential for Compromised Skin Integrity Goal: Skin Integrity is Maintained or Improved Outcome: Adequate for Discharge Goal: Nutritional status is improving Outcome: Adequate for Discharge [id number] Miscellaneous Notes* Care Plan - Toño Cervantes RN - 09/15/2024 11:42 AM EDT Problem: Knowledge Deficit Goal: Patient/family/caregiver demonstrates understanding of disease process, treatment plan, medications, and discharge instructions Outcome: Adequate for Discharge Problem: Potential for Compromised Skin Integrity Goal: Skin Integrity is Maintained or Improved Outcome: Adequate for Discharge Goal: Nutritional status is improving Outcome: Adequate for Discharge * Care Plan - Miriam Chaudhari RN - 09/15/2024 5:46 AM EDT Problem: Knowledge Deficit Goal: Patient/family/caregiver demonstrates understanding of disease process, treatment plan, medications, and discharge instructions Outcome: Progressing Problem: Potential for Compromised Skin Integrity Goal: Skin Integrity is Maintained or Improved Outcome: Progressing Goal: Nutritional status is improving Outcome: Progressing Problem: Urinary Incontinence Goal: Perineal skin integrity is maintained or improved Outcome: Progressing * Perioperative Nursing Note - Codie De Leon RN - 09/14/2024 9:00 AM EDT POST ENDOSCOPY PROCEDURE TRANSFER REPORT Physician: Dr Becerril Procedure completed: EGD Specimens obtained: None Medications administered: See anesth record Findings: See Dr's note Complications: none Please call the Main Endoscopy Dept at [phone] for questions. Report called to Wander Wong RN. Informed of procedure and VS. * Op Note - Laine Becerril MD - 09/14/2024 8:33 AM EDT [facility] Patient Name: Laine Garcia Procedure Date: 09/14/2024 8:33 AM Gender: Male Date of : 1955 Age: 69 Admit Type: Inpatient Note Status: Finalized Endoscopist: Laine Becerril MD, [id number] Procedure: Upper GI endoscopy Indications: Follow-up of [...] immediate complications. Procedure Code(s): --- Professional --- 77454, Esophagogastroduodenoscopy, flexible, transoral; diagnostic, including collection of specimen(s) by brushing or washing, when performed (separate procedure) --- Technical --- 10139, Esophagogastroduodenoscopy, flexible, transoral; diagnostic, including collection of [...] without hemorrhage or perforation CPT copyright 2021 [employer]. All rights reserved. The codes documented in this report are preliminary and upon drywall carrier review may be revised to meet current compliance requirements. Attending Participation: I personally performed the entire procedure. Laine Becerril MD 09/14/2024 8:54:01 AM This report has been signed electronically. Number of Addenda: 0 Note Initiated On: 09/14/2024 8:33 AM * Care Plan - Shwetha Lux RN - 09/14/2024 12:14 AM EDT Problem: Knowledge Deficit Goal: Patient/family/caregiver demonstrates understanding of disease process, treatment plan, medications, and discharge instructions Outcome: Progressing Problem: Potential for Compromised Skin Integrity Goal: Skin Integrity is Maintained or Improved Outcome: Progressing Goal: Nutritional status is improving Outcome: Progressing Problem: Urinary Incontinence Goal: Perineal skin integrity is maintained or improved Outcome: Progressing * Care Coordination - Mahnaz Sharma RN - 09/13/2024 2:31 PM EDT Case Management Progress Note: Patient remains on H6 s/p GDA embolization 09/12 Discharge Plan: Home. Per RN monitoring R groin site. Patient is tolerating diet. No home going needs noted from TCC chart review. * Care Plan - Toño Cervantes RN - 09/12/2024 11:15 AM EDT Problem: Knowledge Deficit Goal: Patient/family/caregiver demonstrates understanding of disease process, treatment plan, medications, and discharge instructions Outcome: Progressing Problem: Potential for Compromised Skin Integrity Goal: Skin Integrity is Maintained or Improved Outcome: Progressing Goal: Nutritional status is improving Outcome: Progressing * Perioperative Nursing Note - Solomon Weller RN - 09/12/2024 10:07 AM EDT Pt arrived awake a/ox4 pt spoke with dr goldsmith consent obtained. Ppp +3 bilateral * Care Plan - Jacqui Child RN - 09/12/2024 3:28 AM EDT Problem: Knowledge Deficit Goal: Patient/family/caregiver demonstrates understanding of disease process, treatment plan, medications, and discharge instructions Outcome: Progressing Problem: Potential for Compromised Skin Integrity Goal: Skin Integrity is Maintained or Improved Outcome: Progressing Goal: Nutritional status is improving Outcome: Progressing Problem: Urinary Incontinence Goal: Perineal skin integrity is maintained or improved Outcome: Progressing * Care Coordination - Rachana Stringer RN - 09/11/2024 3:03 PM EDT Care Management Progress Note 09/11/24 0802 Rapid Rounds Attendance Truck Rental Service Attendant Planned Discharge Disposition Home Today we still [...] Limits Permission given to speak with patient food products sales representative/caregiver as indicated: Confirmation of Payer with patient/family: Payer Name: [employer] : No Confirmation of Primary Care Physician: Confirmed PCP Name: Dante Gurrola Seen in last 2 years?: Yes Primary Caregiver: Self If assistance needed, confirmed caregiver ready, willing and able to care for patient at discharge:Yes ( Rachana, Daughter Mary Lou) Confirmed with: Living Arrangements Current Residence: House [...] Social Work Referral for: Rachana Stringer RN * Care Plan - Angely Gold RN - 09/11/2024 5:40 AM EDT Problem: Knowledge Deficit Goal: Patient/family/caregiver demonstrates understanding of disease process, treatment plan, medications, and discharge instructions Outcome: Progressing Problem: Potential for Compromised Skin Integrity Goal: Skin Integrity is Maintained or Improved Outcome: Progressing * Care Plan - Iliana Rodriguez RN - 09/10/2024 5:12 PM EDT Problem: Knowledge Deficit Goal: Patient/family/caregiver demonstrates understanding of disease process, treatment plan, medications, and discharge instructions Outcome: Progressing Problem: Potential for Compromised Skin Integrity Goal: Skin Integrity is Maintained or Improved Outcome: Progressing Goal: Nutritional status is improving Outcome: Progressing Problem: Urinary Incontinence Goal: Perineal skin integrity is maintained or improved Outcome: Progressing * Care Coordination - Aliya Antonio MD - 09/10/2024 10:26 AM EDT ICU Transfer Checklist Transfer Med Reconciliation (resume home meds if able, convert to PO if able) Complete Antibiotics (name, indication, duration, convert to PO if able) None Steroid (indication, duration, convert to PO if able) None Anticipated [place] Medications (ICU initiated) or Dose Changes and Indication No Permanently Discontinued Home Medications and Reason for medication contraindication No, currently holding eliquis for concerns of GI bleed. Kumar Catheter (please remove if able. Note: place DC order) No Central Line (please remove if able. Note: place DC order) No Transfer Discussed with: [facility] providers Dr. Holbrook and Dr. Scott on raksul Secure chat. If additional questions for ICU team within 24 hours of ICU transfer, page *[phone] for clarifications. * Op Note - Vicky Car MD - 09/09/2024 12:16 PM EDT [facility] Patient Name: Laine Garcia Procedure Date: 09/09/2024 12:16 PM Gender: Male Date of : 1955 Age: 69 Admit Type: Inpatient Note Status: Finalized Endoscopist: Vicky Car , , [id number] Procedure: Upper GI endoscopy Indications: Melena, Hb [...] by the physician, the nurse and the wire stockkeeper in the pre-procedure area in the procedure [...] loss: None. Procedure Code(s): --- Professional --- 84711, Esophagogastroduodenoscopy, flexible, transoral; diagnostic, including collection of specimen(s) by brushing or washing, when performed (separate procedure) --- Technical --- 59285, Esophagogastroduodenoscopy, flexible, transoral; diagnostic, including collection of specimen(s) by brushing or washing, when performed (separate procedure) Diagnosis Code(s): --- Professional --- K26.4, Chronic or unspecified duodenal ulcer with hemorrhage K92.1, Melena (includes Hematochezia) --- Technical --- K26.4, Chronic or unspecified duodenal ulcer with hemorrhage K92.1, Melena (includes Hematochezia) CPT copyright 2021 [employer]. All rights reserved. The codes documented in this report are preliminary and upon drywall carrier review may be revised to meet current compliance requirements. Attending Participation: I personally performed the entire procedure. Vicky Car, 09/09/2024 1:05:37 PM This report has been signed electronically. Number of Addenda: 0 Note Initiated On: 09/09/2024 12:16 PM documented in this [facility]06-13-2025 [facility] 09-15-2024 Hospital course Narrative* Elisabeth Salmeron, PUNCH MACHINE HAND - JAIL GUARD - 09/15/2024 11:05 AM EDT Hospitalist Discharge Summary Laine Garcia : 1955 Admit date: 09/09/2024 [...] on 08/09/24, Mitral valve prolapse. Presents from [place] ED using [employer] flight with concerns for acuteupper GI bleeding. CT imaging at [place] showed a migrated stent into the colon. [...] 09/10. He underwent IR GDA embolization on 09/12. Additionally patient underwent repeat EGD on 09/14 that [...] above and medication adjustments below in med rec.Thepatient is discharged in improved and stable condition. [...] Patient Position: Sitting) Pulse 81 Temp 37.2 C (98.9F) (Oral) Resp 20 Wt 171 lb 15.3 oz (78 kg) SpO2 96% BMI 23.98 kg/m Pulse Ox: SpO2 Av % Min: 96 [...] Your Medications These medications were sent to [facility] [address], [facility] [address] Hours: Wednesday to Wednesday 10 am to 6 pm pantoprazole 40 MG EC tablet sucralfate 1 g tablet Recommended Follow-up: Dante Gurrola [id number] [facility] [address] Follow up in 1 week(s) Zara Spann DO [address] [facility] [address] Follow up in 1 week(s) Laine Becerril MD [address] [facility] [id number] Follow up in 1 month(s) Complexity of Follow up: [] Moderate Complexity: follow up within 7-14 calendar days (50338) [x] Severe Complexity: follow up within 7 calendar days (83109) Follow up Testing, Pending results or Referrals [...] appointment within the above time frame. Signed: BARRIE Monsalve CNP Division of Hospitalist Medicine [facility] 09/15/2024, 11:05 AM [1] Past Medical History: Diagnosis Date MVP (mitral valve prolapse) Pulmonary embolism (HCC) Cosigned by Jose Peck DO at 09/15/2024 6:10 PM EDT documented in this [facility]06-13-2025 Hospital Discharge instructions* Discharge Instructions* BARRIE Charles CNP - 09/15/2024 8:12 AM EDT Please stop Eliquis at time of discharge Please have close follow up with your PCP and general surgery for timing on when to resume Eliquis Please continue Protonix twice a day and Carafate Follow up with GI in 2 months for repeat EGD * Discharge Instr - Activity* BARRIE Charles CNP - 09/15/2024 8:12 AM EDT No changes to your activity * Discharge Instr - Diet* BARRIE Charles CNP - 09/15/2024 8:12 AM EDT No changes to your diet documented in this [facility]06-13-2025 Plan of care note* Care Plan - Miriam Chaudhari RN - 09/15/2024 5:46 AM EDT Problem: Knowledge Deficit Goal: Patient/family/caregiver demonstrates understanding of disease process, treatment plan, medications, and discharge instructions Outcome: Progressing Problem: Potential for Compromised Skin Integrity Goal: Skin Integrity is Maintained or Improved Outcome: Progressing Goal: Nutritional status is improving Outcome: Progressing Problem: Urinary Incontinence Goal: Perineal skin integrity is maintained or improved Outcome: Progressing [id number] History of Present illness Narrative* BARRIE Charles CNP - 09/14/2024 1:35 PM EDT Hospitalist Progress Note 09/14/2024 Subjective: Admit Date: 09/09/2024 PCP: Dante Gurrola Room#: [id number] A BRIEF HOSPITAL COURSE: Laine is a 69 M with PMH of Hx is significant for duodenual perforation with recent laparoscopic wedge resection on 08/10/24 and laparoscopic lysis of adhesions on 08/09/24, Mitral valve prolapse, and pulmonary embolism. Takes eliquis at home. Presents from [place] ED using [employer] [facility] with concerns for acute upper GI bleeding. CT at [place] at the time showed a migrated stent into the colon. Admitted to ICU. S/p 2 units of PRBC on 09/08. Evaluated by GI and gen surgery, underwent EGD - on 09/11 noted for Non-bleeding deep cavitary duodenal ulcer with an adherent clot in the cavity. Unable to remove clot from the deep ulcercavitery. Recs to monitor BMs for passing stent, [...] Vitals: BP 126/71 Pulse 63 Temp 36.8 C (98.2 F) (Temporal) Resp 18 Wt 171 lb 15.3 oz (78 kg) SpO2 97% BMI 23.98 kg/m Pulse Ox: SpO2 Av.2 % Min: 97 [...] Emergency Contact: Rachana Garcia Mobile Relation: Spouse Salt Maker needed? No Secondary Emergency Contact: BirdgetteMary Lou Relation: Daughter Salt Maker needed? No Elisabeth Salmeron APRN - JAIL GUARD Division of Hospitalist Medicine Acute care [facility] [1] Past Medical History: Diagnosis Date MVP [...] sodium chloride 0.9%, sodium chloride 0.9% [4] * Ivy Portillo PA-C - 09/13/2024 3:49 PM EDT INTERVENTIONAL RADIOLOGY PROGRESS NOTE Admit Date: 09/09/2024 Subjective: This is a 69 y.o. male who was admitted to [facility] on 09/09. Pt initially presented to [place] ED on 09/08 for hematemesis and syncope. He had EGD that revealed nonbleeding deep duodenal ulcer with adherent clot in the cavity. Patient was transferred to [facility] for further evaluation and management. History [...] ulcer. S/p embolization of gastroduodenal artery and superiorpancreaticoduodenal artery. Hgb has remained stable since procedure. Patient endorses soreness at groin site. He states there was swelling this morning which has improved since he has been ambulating throughout the day. Patient denies nausea, vomiting, abdominal pain, dizziness. Objective: Vitals: Vitals: 09/13/24 1154 BP: 129/85 Pulse: 66 Resp: 16 Temp: 36.7 C (98.1 F) SpO2: 98% General appearance: Alert, non-toxic, no [...] 69 y.o. male who was admitted to [facility] on 09/09/2024 for hematemesis, syncope, duodenal ulcer. - Successful embolization of gastroduodenal artery and superior pancreaticoduodenal artery with IR on 09/12. No post-procedural complications. - Hgb stable, continue to monitor - Continue medical management and disposition per primary care team I personally spent 15 minutes consulting with patient, of which over 50% was spent counseling. Ivy Portillo PA-C Interventional Radiology * Liv Hall PA-C - 09/13/2024 12:14 PM EDT Images from the original note were not included. Department of Internal Medicine Gastroenterology Progress Note SUBJECTIVE: GI following for GI bleed. 69-year-old male with significant past medical history of after finding, but prolapse, recent DVT GERD status post and gastric perforation status post takedown of Basia with laparoscopic wedge resection 08/10/2024. Pertinent history includes: Admitted at [facility] s/p bleeding duodenal ulcer with visible vessel 08/2024. He was transferred to [facility] from [place] with duodenal perforation. He is s/p diagnostic laparoscopy 08/09/24 and laparoscopic wedge resection of gastric perforation 08/10/24. Discharged from hospital 08/13/2024. Readmitted to hospital 08/24/2024. Plan for duodenal stent removal 09/07/24 but patient took Eliquis and this could not be completed. Patient had hematemesis and syncope and presented to [place] ED on 09/08/24 then transferred to [facility]. Patient had EGD on 09/08/24 that [...] Patient Position: Sitting) Pulse 66 Temp 36.7 C (98.1F) (Temporal) Resp 16 Wt 171 lb 15.3 oz (78 kg) SpO2 98% BMI 23.98 kg/m Average, Min, and Max for last24 hours Vitals: TEMPERATURE: Temp Av.7 C (98.1 F) Min: 36.2 C (97.2 F) Max: 36.9 C (98.5 F) RESPIRATIONS RANGE: Resp Av.1 Min: 13 Max: [...] good position with small metallic foreign matter bythe inferior aspect left renal vein, degenerative facet and disc changes lumbar spine, prostatic enlargement, prior posterior wall stomach surgery. Endoscopic Review EGD 08/07/24- Dr. Avendano [place], [place] EGD 09/09/24 IMPRESSION/RECOMMENDATIONS: GIB Cratered duodenal ulcer- [...] healing of ulcer, will send records to in [place] - GI soft diet and advance as tolerated - Continue medical management and supportive care per primary team - Continue to monitor H/H and transfuse per primary team - Continue Protonix 40 mg BID - GI to follow [1] Current Facility-Administered Medications: [Held by provider] [...] times per day, Skylar Reza APRN - DEANNA, 10 mL at 09/13/24 0833 sodium chloride 0.9% (NS) flush 10 mL, 10 mL, IntraVENous, PRN, Skylar Reza APRN - JAIL GUARD sodium chloride 0.9% (NS) flush 5-40 mL, 5-40 mL, IntraVENous, q12h, Aliya Antonio MD, 10 mL at 09/13/24 1105 sodium chloride 0.9% (NS) flush 5-40 mL, 5-40 mL, IntraVENous, PRN, Aliya Antonio MD sucralfate (Carafate) tablet 1 g, 1 g, Oral, 4x daily AC & HS, Jacob Reyna MD, 1 g at 09/13/24 1155 * Aury Whitmore NP - 09/13/2024 11:41 AM EDT Hospitalist Progress Note 09/13/2024 Subjective: Admit Date: 09/09/2024 PCP: Dante Gurrola Room#: [id number] A BRIEF HOSPITAL COURSE: Laine is a 69 M with PMH of Hx is significant for duodenual perforation with recent laparoscopic wedge resection on 08/10/24 and laparoscopic lysis of adhesions on 08/09/24, Mitral valve prolapse, and pulmonary embolism. Takes eliquis at home. Presents from [place] ED using [employer] flight with concerns for acute upper GI bleeding. CT at [place] at the time showed a migrated stent into the colon. Admitted to ICU. S/p 2 units of PRBC on 09/08. Evaluated by GI and gen surgery, underwent EGD - on 09/11 noted for Non-bleeding deep cavitary duodenal ulcer with an adherent clot in the cavity. Unable to remove clot from the deep ulcercavitery. Recs to monitor BMs for passing stent, continue PPI infusion. If this ulcer bleeds again then patient will need IR consult. Patient did pass stent on 09/10. Transferred out of ICU on 09/11. 09/12-s/p IR GDA embolization. Plan for repeat EGD 09/14 to reevaluate ulcer. Interval History: No acute events overnight. Richar remains on hold. Denies any active bleeding [...] Patient Position: Sitting) Pulse 92 Temp 36.2 C (97.2F) (Temporal) Resp 16 Wt 171 lb 15.3 oz (78 kg) SpO2 96% BMI 23.98 kg/m Pulse Ox: SpO2 Av.6 % Min: 96 [...] Contact Information Primary Emergency Contact: Rachana Garcia [place] Relation: Spouse Salt Maker needed? No Secondary Emergency Contact: Mary Lou Angeles Relation: Daughter Salt Maker needed? No Aury Whitmore NP Division of Hospitalist Medicine Acute care [facility] [1] Past Medical History: Diagnosis Date MVP [...] sodium chloride 0.9%, sodium chloride 0.9% [4] * Cheryl Joaquin - 09/13/2024 9:05 AM EDT Images from the original note were not included. OCCUPATIONAL THERAPY [facility] Initial Evaluation Name/MRN: Laine Garcia ([id number]) Evaluation Date: 09/13/2024 Date of : 1955 Admission Date: 09/09/2024 9:41 AM Age: 69 y.o. [facility] Discharge Recommendation: Home with assist PRN Assessment IMPRESSION: Pt admitted for hematemesis with acute GI bleed. Prior to admission, pt completing ADLsindependently. He is not currently requiring any hands on assistance for mobility or the completionof ADLs. Not recommending skilled services at this [...] Hematemesis 09/09/2024 Abdominal pain 08/25/2024 Severe malnutrition (CMS/HCC) ([facility]) 08/12/2024 Duodenal ulceration 08/09/2024 Pneumoperitoneum 08/09/2024 Duodenal perforation (CMS/HCC) ([facility]) 08/09/2024 Medical Precautions: No active isolations Proper [...] Responsibilities: Independent Receives Help From: None Active Commercial Administrator: N/A Prior Level of Function Prior Level [...] of Care supervision is transferred to a [facility] Occupational Therapist. Goals and/or treatment plan was established in collaboration with patient/family/other representatives. Cheryl Joaquin, S/OT [1] Past Medical History: Diagnosis Date MVP (mitral valve prolapse) Pulmonary embolism (HCC) [2] Past Surgical History: Procedure Laterality Date HERNIA REPAIR IR EMBOLIZATION 09/12/2024 IR EMBOLIZATION 09/12/2024 Omid Goldsmith MD [facility] SPECIAL PROCEDURES OTHER SURGICAL HISTORY N/A 08/10/2024 APAROSCOPY, DIAGNOSTIC, LYSIS OF ADHESIONS, EGD SHOULDER SURGERY Cosigned by Megha Sorensen OT at 09/13/2024 9:45 AM EDT * Grace Wakefield MD - 09/12/2024 2:50 PM EDT Dear Provider, The patient is noted with hematemesis on admission. Patient is on eliquis at home and this medication is currently being held. Patient received 1 unit prbcs. Could hematemesis be further specified as: Hematemesis exacerbated by eliquis * Aury Whitmore NP - 09/12/2024 9:15 AM EDT Hospitalist Progress Note 09/12/2024 Subjective: Admit Date: 09/09/2024 PCP: Dante Gurrola Room#: [id number] A BRIEF HOSPITAL COURSE: Laine is a 69 M with PMH of Hx is significant for duodenual perforation with recent laparoscopic wedge resection on 08/10/24 and laparoscopic lysis of adhesions on 08/09/24, Mitral valve prolapse, and pulmonary embolism. Takes eliquis at home. Presents from [place] ED using [employer] flight with concerns for acute upper GI bleeding. CT at [place] at the time showed a migrated stent into the colon. Admitted to ICU. S/p 2 units of PRBC on 09/08. Evaluated by GI and gen surgery, underwent EGD - on 09/11 noted for Non-bleeding deep cavitary duodenal ulcer with an adherent clot in the cavity. Unable to remove clot from the deep ulcercavitery. Recs to monitor BMs for passing stent, [...] Vitals: BP 126/76 Pulse 60 Temp 36.6 C (97.9 F) (Temporal) Resp 16 Wt 171 lb 15.3 oz (78 kg) SpO2 99% BMI 23.98 kg/m Pulse Ox: SpO2 Av.2 % Min: 98 [...] Emergency Contact: Rachana Garcia Mobile Relation: Spouse Salt Maker needed? No Secondary Emergency Contact: Trini Angelese Relation: Daughter Salt Maker needed? No Aury Whitmore NP Division of Hospitalist Medicine [facility] [1] Past Medical History: Diagnosis Date MVP [...] 75 mL/hr, Last Rate: 75 mL/hr (09/12/24 0805) * Brenna Aguilar, PT - 09/11/2024 3:45 PM EDT Images from the original note were not included. PHYSICAL THERAPY [facility] Initial Evaluation Name/MRN: Laine Garcia ([id number]) Evaluation Date: 09/11/2024 Date of : 1955 Admission Date: 09/09/2024 9:41 AM Age: 69 y.o. Room[facility]Bed: [facility] Discharge Recommendation: Home with assist PRN Equipment Needed: No Assessment IMPRESSION: Pt presented by Life flight from [place] ED for concerns for GI bleed, s/p [...] to therapy. Denies N/t. Reports some nausea aftereating lunch. Pain: 0-10 pain scale: 1-2/10 Location: abdomen Past Medical History: Medical History[1] Past Surgical History: Surgical History[2] Admission Diagnosis: Patient Active Problem List Diagnosis Date Noted Hematemesis 09/09/2024 Abdominal pain 08/25/2024 Severe malnutrition (CMS/HCC) ([facility]) 08/12/2024 Duodenal ulceration 08/09/2024 Pneumoperitoneum 08/09/2024 Duodenal perforation (CMS/[facility]) ([facility]) 08/09/2024 Medical Precautions: No active isolations Proper [...] Responsibilities: Independent Receives Help From: None Active Commercial Administrator: N/A Prior Level of Function Prior Level [...] Raw Score (No Stairs) : 20 [facility] Score: Walked 25 ft or more (i.e. walked outside of room) Plan No skilled acute PT indicated at this time. Please reconsult should changes occur. Safety/Education Safety Safety Devices in place: call light within reach, no alarms engaged upon entry, field care coordinator present, and family assisting pt in bathroom, [...] of Care supervision is transferred to a [facility] Physical Therapist. Goals and/or treatment plan was established in collaboration with patient/family/other representatives. [1] Past Medical History: Diagnosis Date MVP (mitral valve prolapse) Pulmonary embolism (HCC) [2] Past Surgical History: Procedure Laterality Date HERNIA REPAIR OTHER SURGICAL HISTORY N/A 08/10/2024 APAROSCOPY, DIAGNOSTIC, LYSIS OF ADHESIONS, EGD SHOULDER SURGERY * Aury Whitmore NP - 09/11/2024 1:01 PM EDT Hospitalist Progress Note 09/11/2024 Subjective: Admit Date: 09/09/2024 PCP: Dante Gurrola Room#: [id number] A BRIEF HOSPITAL COURSE: Laine is a 69 M with PMH of Hx is significant for duodenual perforation with recent laparoscopic wedge resection on 08/10/24 and laparoscopic lysis of adhesions on 08/09/24, Mitral valve prolapse, and pulmonary embolism. Takes eliquis at home. Presents from [place] ED using Tor[employer] flight with concerns for acute upper GI bleeding. CT at [place] at the time showed a migrated stent into the colon. Admitted to ICU. S/p 2 units of PRBC on 09/08. Evaluated by GI and gen surgery, underwent EGD - on 09/11 noted for Non-bleeding deep cavitary duodenal ulcer with an adherent clot in the cavity. Unable to remove clot from the deep ulcercavitery. Recs to monitor BMs for passing stent, [...] Patient Position: Sitting) Pulse 77 Temp 36.3 C (97.4F) (Temporal) Resp 16 Wt 171 lb 15.3 oz (78 kg) SpO2 98% BMI 23.98 kg/m Pulse Ox: SpO2 Av.3 % Min: 95 [...] Emergency Contact: Rachana Garcia Mobile Relation: Spouse Salt Maker needed? No Secondary Emergency Contact: Mary Lou Angeles Relation: Daughter Salt Maker needed? No [facility] Whitmore NP [facility] [1] Past Medical History: Diagnosis Date MVP [...] sodium chloride 0.9%, sodium chloride 0.9% [4] * Domenica Javier - 09/11/2024 10:48 AM EDT Nutrition rescreen completed. Chart reviewed. Patient to be monitored and followed by the diet earth science technician. * Henry Islas MD - 09/11/2024 8:11 AM EDT Images from the original note were not included. Department of Internal Medicine Gastroenterology Progress Note SUBJECTIVE: GI following for GI bleed. 69-year-old male with significant past medical history of after finding, but prolapse, recent DVT GERD status post and gastric perforation status post takedown of Basia with laparoscopic wedge resection 08/10/2024. Pertinent history includes: Admitted at [facility] s/p bleeding duodenal ulcer with visible vessel 08/2024. He was transferred to [facility] from [place] with duodenal perforation. He is s/p diagnostic laparoscopy 08/09/24 and laparoscopic wedge resection of gastric perforation 08/10/24. Discharged from hospital 08/13/2024. Readmitted to hospital 08/24/2024. Plan for duodenal stent removal 09/07/24 but patient took Eliquis and this could not be completed. Patient had hematemesis and syncope and presented to [place] ED on 09/08/24 then transferred to [facility]. Patient had EGD on 09/08/24 that [...] VITALS: BP 137/75 Pulse 59 Temp 36.4 C (97.6 F) (Temporal) Resp 16 Wt 171 lb 15.3 oz (78 kg) SpO2 95% BMI 23.98 kg/m Average, Min, and Max for last24 hours Vitals: TEMPERATURE: Temp Av.3 C (97.4 F) Min: 36 C (96.8 F) Max: 36.6 C (97.9 F) RESPIRATIONS RANGE: Resp Av.1 Min: 13 Max: [...] good position with small metallic foreign matter bythe inferior aspect left renal vein, degenerative facet and disc changes lumbar spine, prostatic enlargement, prior posterior wall stomach surgery. Endoscopic Review EGD 08/07/24- Dr. Avendano [place], [place] EGD 09/09/24 IMPRESSION/RECOMMENDATIONS: GIB Cratered duodenal ulcer- [...] of ulcer, will send records to Dr. Juan Alberto Tony - GI soft diet and advance as [...] patient. I have reviewed the case with theMedical Student/Resident/PA and reviewed their consult/progress note in addition to personally discussing the patient. Included in my assessment was review of the information contained in this progress note, the patient's medical record, and independent review of labs, radiology reports, and imageswhen appropriate. I agree with all of the [...] IntraVENous, q6h PRN, Aliya Antonio MD, Stopped at09/09/241902 [Held by provider] apixaban (Eliquis) tablet 5 [...] 0.4 mg, IntraVENous, q5 min PRN, Aliya Antonoi MD ondansetron ODT (Zofran-ODT) disintegrating tablet 4 [...] day, BARRIE Encarnacion CNP, 10 mL at 09/10/242114 sodium chloride 0.9% (NS) flush 10 mL, 10 mL, IntraVENous, PRN, Skylar Reza APRN - DEANNA sodium chloride 0.9% (NS) flush 5-40 mL, 5-40 mL, IntraVENous, q12h, Aliya Antonio MD, 10 mL at 09/10/24 0844 sodium chloride 0.9% (NS) flush 5-40 mL, 5-40 mL, IntraVENous, PRN, -Yudi Antonio MD documented in this encounterSChildren's Hospital for [id number] Nurse Note* Perioperative Nursing Note - Codie De Leon RN - 09/14/2024 9:00 AM EDT POST ENDOSCOPY PROCEDURE TRANSFER REPORT Physician: Dr Becerril Procedure completed: EGD Specimens obtained: None Medications administered: See anesth record Findings: See Dr's note Complications: none Please call the Main Endoscopy Dept at [phone] for questions. Report called to Wander Wong RN. Informed of procedure and VS. [id number] Procedure note* Op Note - Laine Becerril MD - 09/14/2024 8:33 AM EDT [facility]aine [facility] Procedure Date: 09/14/2024 8:33 AM Gender: Male Date of : 1955 Age: 69 Admit Type: Inpatient Note Status: Finalized Endoscopist: Laine Becerril MD, [id number] Procedure: Upper GI endoscopy Indications: Follow-up of [...] immediate complications. Procedure Code(s): --- Professional --- 82192, Esophagogastroduodenoscopy, flexible, transoral; diagnostic, including collection of specimen(s) by brushing or washing, when performed (separate procedure) --- Technical --- 58644, Esophagogastroduodenoscopy, flexible, transoral; diagnostic, including collection of [...] without hemorrhage or perforation CPT copyright 2021 [employer]. All rights reserved. The codes documented in this report are preliminary and upon drywall carrier review may be revised to meet current compliance requirements. Attending Participation: I personally performed the entire procedure. Laine Becerril MD 09/14/2024 8:54:01 AM This report has been signed electronically. Number of Addenda: 0 Note Initiated On: 09/14/2024 8:33 AM [employer] Phone: [phone]) 224-428606-12-2025 Plan of care note* Care Plan - Shwetha Lux RN - 09/14/2024 12:14 AM EDT Problem: Knowledge Deficit Goal: Patient/family/caregiver demonstrates understanding of disease process, treatment plan, medications, and discharge instructions Outcome: Progressing Problem: Potential for Compromised Skin Integrity Goal: Skin Integrity is Maintained or Improved Outcome: Progressing Goal: Nutritional status is improving Outcome: Progressing Problem: Urinary Incontinence Goal: Perineal skin integrity is maintained or improved Outcome: Progressing [id number] Note* Care Coordination - Mahnaz Sharma RN - 09/13/2024 2:31 PM EDT Case Management Progress Note: Patient remains on H6 s/p GDA embolization 09/12 Discharge Plan: Home. Per RN monitoring R groin site. Patient is tolerating diet. No home going needs noted from TCC chart review. T [id number] Note* Care Coordination - Mahnaz Sharma RN - 09/13/2024 2:31 PM EDT Case Management Progress Note: Patient remains on H6 s/p GDA embolization 09/12 Discharge Plan: Home. Per RN monitoring R groin site. Patient is tolerating diet. No home going needs noted from TCC chart review. [id number] NotePt tolerated procedure well. Transferring to IR Recovery.[facility]06-10-2025 Nurse Note* Joe Patterson RN - 09/12/2024 11:30 AM EDT Pt tolerated procedure well. Transferring to IR Recovery. [id number] Nurse Note* Joe Patterson RN - 09/12/2024 11:30 AM EDT Hemostasis achieved. [id number] Nurse Note* Joe Patterson RN - 09/12/2024 11:30 AM EDT Pt tolerated procedure well. Transferring to IR Recovery. * Joe Patterson RN - 09/12/2024 11:30 AM EDT Hemostasis achieved. * Joe Patterson RN - 09/12/2024 10:37 AM EDT Patient arrived from [facility], Dr. Goldsmith was in to speak with the patient regarding GDA embolization, consent was obtained. Patient was placed supine on exam table prepped and draped in sterile fashion.Telemetry monitors placed, vitals monitored and conscious sedation administered. * Francine Waller RN - 09/11/2024 7:21 AM EDT Wound Care consulted for Pressure Injury Prevention. Pt's Siva= 20, pt is no longer at risk at this time. Will continue to follow peripherally. Please vocera or secure chat message with any questions. Radha Waller RN, CWCN documented in this encounterSChildren's Hospital for [id number] Plan of care note* Care Plan - Toño Cervantes RN - 09/12/2024 11:15 AM EDT Problem: Knowledge Deficit Goal: Patient/family/caregiver demonstrates understanding of disease process, treatment plan, medications, and discharge instructions Outcome: Progressing Problem: Potential for Compromised Skin Integrity Goal: Skin Integrity is Maintained or Improved Outcome: Progressing Goal: Nutritional status is improving Outcome: Progressing [id number] Nurse Note* Joe Patterson RN - 09/12/2024 10:37 AM EDT Patient arrived from [facility], Dr. Goldsmith was in to speak with the patient regarding GDA embolization, consent was obtained. Patient was placed supine on exam table prepped and draped in sterile fashion.Telemetry monitors placed, vitals monitored and conscious sedation administered. [id number] Nurse Note* Perioperative Nursing Note - Solomon Weller RN - 09/12/2024 10:07 AM EDT Pt arrived awake a/ox4 pt spoke with dr goldsmith consent obtained. Ppp +3 bilateral [id number] Consult note* Omid Goldsmith MD - 09/12/2024 9:05 AM EDT Interventional Radiology Consultation Note Chief Complaint: Bleeding duodenal ulcer History of Present Illness: 69 year old male with history of bleeding duodenal ulcer requiring blood transfusions. Previously had duodenal stent placed at [place] which has passed spontaneously 2 days ago. [...] cellulitis or gross discoloration VITALS: Temp: [35.6 C (96 F)-37.3 C (99.1 F)] 35.6 C (96 F) Heart Rate: [64-77] 74 Resp: [16-18] 18 [...] of which over 50% were spent counseling. [employer] Work Phone: [phone]) 914-426006-10-2025 Consult note* Omid Goldsmith MD - 09/12/2024 9:05 AM EDT Interventional Radiology Consultation Note Chief Complaint: Bleeding duodenal ulcer History of Present Illness: 69 year old male with history of bleeding duodenal ulcer requiring blood transfusions. Previously had duodenal stent placed at [place] which has passed spontaneously 2 days ago. [...] cellulitis or gross discoloration VITALS: Temp: [35.6 C (96 F)-37.3 C (99.1 F)] 35.6 C (96 F) Heart Rate: [64-77] 74 Resp: [16-18] 18 [...] of which over 50% were spent counseling. * Vicky Car MD - 09/10/2024 7:19 AM EDT No acute issues overnight. He had 1 BM and passed the stent. Hb stable. Currently there is no signs or symptoms of GI bleeding. I also talked to the Primary team about the cavitary type ulcer with blood clot in it its hard to do endoscopic therapeutic intervention if this ulcer bleeds again and IR and/or Surgery would be needed if rebleeds. * Skylar Reza APRN - DEANNA - 09/09/2024 10:36 AM EDTAssociated Order(s): IP CONSULT TO GI Images from the original note were not included. Department of Internal Medicine Gastroenterology Attending Consult Note Reason for Consult: The patient was seen in consultation at the request of Dr. Antonio re: GI bleed, EGD. CHIEF COMPLAINT: Hematemesis History Obtained From: patient, family, EMR HISTORY OF PRESENT ILLNESS: The patient is a 69 y.o. male with significant past medical history of Factor V leiden, MVP, PE, recently diagnosed DVT on Eliquis, bleeding ulcers, GERD s/p basia and gastric perforation s/p take down of Basia with laparoscopic wedge resection 08/10/2024 who presents as transfer from [place] ED using [employer] flight with concern for acute upper GI bleeding. Patient was seen in [facility] ED yesterday with c/o abdominal pain. Hgb stable at that time (hgb 10.4) and CT A/P without findings to explain symptoms. He was discharged home. Notes around 5 am this morning, had vomiting of blood and associated fainting. Presented to [place] ED where family reports hgb was 6. He is s/p 1 unit PRBC per family. Current hgb 7.8. Admitted at [place] hospital s/p bleeding duodenal ulcer with visible vessel 08/2024. He was transferred to [facility] from [place] with duodenal perforation. He is s/p diagnostic [...] Problems Diagnosis Date Noted Duodenal perforation (CMS/HCC) ([facility]) 08/09/2024 Duodenal ulceration 08/09/2024 Pneumoperitoneum 08/09/2024 Severe malnutrition (CMS/HCC) ([facility]) 08/12/2024 Abdominal pain 08/25/2024 Resolved Ambulatory Problems Diagnosis Date Noted Malnutrition (CMS/HCC) ([facility]) 08/12/2024 Past Medical History: Diagnosis Date MVP (mitral valve prolapse) Pulmonary embolism ([facility]) Past Surgical History: Social History Socioeconomic History [...] VS: BP 113/68 Pulse 73 Temp 36.3 C (97.4 F) (Temporal) Resp 12 SpO2 97% There is [...] good position with small metallic foreign matter bythe inferior aspect left renal vein, degenerative facet and disc changes lumbar spine, prostatic enlargement, prior posterior wall stomach surgery. Report Dictated on Electronically Signed By: Henry Gonzales MD Electronically Signed Date/Time: 09/08/2024 3:58 PM EDT Endoscopic Review IMPRESSION/RECOMMENDATIONS: Hematemesis -patient reports multiple episodes of hematemesis starting 0500 today History of bleeding duodenal ulcer-08/07/2024 oozing duodenal ulcer with visible vessel; treated withAPC, clips placed History of duodenal perforation -08/10/2024 [...] IntraVENous, 2 times per day, BARRIE Encarnacion CNP sodium chloride 0.9% (NS) flush 10 mL, 10 mL, IntraVENous, PRN, BARRIE Encarnacion CNP sodium chloride 0.9% (NS) flush 5-40 mL, 5-40 mL, IntraVENous, q12h, Aliya Antonio MD, 10 mL at 09/09/24 1044 sodium chloride 0.9% (NS) flush 5-40 mL, 5-40 mL, IntraVENous, PRN, Aliya Antonio MD [2] No family history on file. Cosigned by Vicky Car MD at 09/09/2024 12:34 PM EDT documented in this [facility]06-10-2025 Plan of care note* Care Plan - Jacqui Child RN - 09/12/2024 3:28 AM EDT Problem: Knowledge Deficit Goal: Patient/family/caregiver demonstrates understanding of disease process, treatment plan, medications, and discharge instructions Outcome: Progressing Problem: Potential for Compromised Skin Integrity Goal: Skin Integrity is Maintained or Improved Outcome: Progressing Goal: Nutritional status is improving Outcome: Progressing Problem: Urinary Incontinence Goal: Perineal skin integrity is maintained or improved Outcome: Progressing [id number] Note* Care Coordination - Rachana Stringer RN - 09/11/2024 3:03 PM EDT Care Management Progress Note 09/11/24 0802 Rapid Rounds Attendance Truck Rental Service Attendant Planned Discharge Disposition Home Today we still [...] Limits Permission given to speak with patient food products sales representative/caregiver as indicated: Confirmation of Payer with patient/family: Payer Name: [employer] : No Confirmation of Primary Care Physician: Confirmed PCP Name: Dante Gurrola Seen in last 2 years?: Yes Primary Caregiver: Self If assistance needed, confirmed caregiver ready, willing and able to care for patient at discharge:Yes ( Rachana, Daughter Mary Lou) Confirmed with: Living Arrangements Current Residence: House [...] Social Work Referral for: Rachana Stringer RN [id number] Note* Care Coordination - Rachana Stringer RN - 09/11/2024 3:03 PM EDT Care Management Progress Note 09/11/24 0802 Rapid Rounds Attendance Truck Rental Service Attendant Planned Discharge Disposition Home Today we still [...] Limits Permission given to speak with patient food products sales representative/caregiver as indicated: Confirmation of Payer with patient/family: Payer Name: [facility]: No Confirmation of Primary Care Physician: Confirmed PCP Name: Dante Gurrola Seen in last 2 years?: Yes Primary Caregiver: Self If assistance needed, confirmed caregiver ready, willing and able to care for patient at discharge:Yes ( Rachana, Daughter Mary Lou) Confirmed with: Living Arrangements Current Residence: House [...] Social Work Referral for: Rachana Stringer RN [id number] Nurse Note* Francine Waller RN - 09/11/2024 7:21 AM EDT Wound Care consulted for Pressure Injury Prevention. Pt's Siva= 20, pt is no longer at risk at this time. Will continue to follow peripherally. Please vocera or secure chat message with any questions. Radha Waller RN, CWCN [id number] Plan of care note* Care Plan - Angely Gold RN - 09/11/2024 5:40 AM EDT Problem: Knowledge Deficit Goal: Patient/family/caregiver demonstrates understanding of disease process, treatment plan, medications, and discharge instructions Outcome: Progressing Problem: Potential for Compromised Skin Integrity Goal: Skin Integrity is Maintained or Improved Outcome: Progressing [id number] Plan of care note* Care Plan - Iliana Rodriguez RN - 09/10/2024 5:12 PM EDT Problem: Knowledge Deficit Goal: Patient/family/caregiver demonstrates understanding of disease process, treatment plan, medications, and discharge instructions Outcome: Progressing Problem: Potential for Compromised Skin Integrity Goal: Skin Integrity is Maintained or Improved Outcome: Progressing Goal: Nutritional status is improving Outcome: Progressing Problem: Urinary Incontinence Goal: Perineal skin integrity is maintained or improved Outcome: Progressing [id number] Note* Care Coordination - Aliya Antonio MD - 09/10/2024 10:26 AM EDT ICU Transfer Checklist Transfer Med Reconciliation (resume home meds if able, convert to PO if able) Complete Antibiotics (name, indication, duration, convert to PO if able) None Steroid (indication, duration, convert to PO if able) None Anticipated [place] Medications (ICU initiated) or Dose Changes and Indication No Permanently Discontinued Home Medications and Reason for medication contraindication No, currently holding eliquis for concerns of GI bleed. Kumar Catheter (please remove if able. Note: place DC order) No Central Line (please remove if able. Note: place DC order) No Transfer Discussed with: [facility] providers Dr. Holbrook and Dr. Scott on raksul Secure chat. If additional questions for ICU team within 24 hours of ICU transfer, page *[phone] for clarifications. [facility] [id number] Note* Care Coordination - Aliya Antonio MD - 09/10/2024 10:26 AM EDT ICU Transfer Checklist Transfer Med Reconciliation (resume home meds if able, convert to PO if able) Complete Antibiotics (name, indication, duration, convert to PO if able) None Steroid (indication, duration, convert to PO if able) None Anticipated [place] Medications (ICU initiated) or Dose Changes and Indication No Permanently Discontinued Home Medications and Reason for medication contraindication No, currently holding eliquis for concerns of GI bleed. Kumar Catheter (please remove if able. Note: place DC order) No Central Line (please remove if able. Note: place DC order) No Transfer Discussed with: [facility] providers Dr. Holbrook and Dr. Scott on raksul Secure chat. If additional questions for ICU team within 24 hours of ICU transfer, page *[phone] for clarifications. [facility] [id number] Consult note* Vicky Car MD - 09/10/2024 7:19 AM EDT No acute issues overnight. He had 1 BM and passed the stent. Hb stable. Currently there is no signs or symptoms of GI bleeding. I also talked to the Primary team about the cavitary type ulcer with blood clot in it its hard to do endoscopic therapeutic intervention if this ulcer bleeds again and IR and/or Surgery would be needed if rebleeds. [id number] Procedure note* Op Note - Vicky Car MD - 09/09/2024 12:16 PM EDT [facility] Patient Name: Laine Garcia Procedure Date: 09/09/2024 12:16 PM Gender: Male Date of : 1955 Age: 69 Admit Type: Inpatient Note Status: Finalized Endoscopist: Vicky Car , , [id number] Procedure: Upper GI endoscopy Indications: Melena, Hb [...] by the physician, the nurse and the wire stockkeeper in the pre-procedure area in the procedure [...] loss: None. Procedure Code(s): --- Professional --- 15169, Esophagogastroduodenoscopy, flexible, transoral; diagnostic, including collection of specimen(s) by brushing or washing, when performed (separate procedure) --- Technical --- 92524, Esophagogastroduodenoscopy, flexible, transoral; diagnostic, including collection of specimen(s) by brushing or washing, when performed (separate procedure) Diagnosis Code(s): --- Professional --- K26.4, Chronic or unspecified duodenal ulcer with hemorrhage K92.1, Melena (includes Hematochezia) --- Technical --- K26.4, Chronic or unspecified duodenal ulcer with hemorrhage K92.1, Melena (includes Hematochezia) CPT copyright 2021 [employer]. All rights reserved. The codes documented in this report are preliminary and upon drywall carrier review may be revised to meet current compliance requirements. Attending Participation: I personally performed the entire procedure. Vicky Car, 09/09/2024 1:05:37 PM This report has been signed electronically. Number of Addenda: 0 Note Initiated On: 09/09/2024 12:16 PM [id number] History and physical note* Vicky Car MD - 09/09/2024 12:15 PM EDT GASTROENTEROLOGY PHYSICIAN PRE PROCEDURE NOTE HPI: Laine Garcia is a 69 y.o. male who is here today for planned endoscopic examination. All: Allergies[1] Meds: Current Medications[2] PMH: Medical History[3] No reactions to anesthesia in the past. Airway patent PE: VS: BP 113/68 Pulse 73 Temp 36.3 C (97.4 F) (Temporal) Resp 12 SpO2 97% There is [...] mL/hr, IntraVENous, PRN, Skylar Reza APRN - JAIL GUARD sodium chloride 0.9% (NS) flush 10 mL, 10 mL, IntraVENous, 2 times per day, Skylar Reza APRN - JAIL GUARD sodium chloride 0.9% (NS) flush 10 mL, 10 mL, IntraVENous, PRN, Skylar Reza PUNCH MACHINE HAND - JAIL GUARD sodium chloride 0.9% (NS) flush 5-40 mL, 5-40 mL, IntraVENous, q12h, Aliya Antonio MD, 10 mL at 09/09/24 1044 sodium chloride 0.9% (NS) flush 5-40 mL, 5-40 mL, IntraVENous, PRN, Aliya Antonio MD [3] Past Medical History: Diagnosis Date MVP (mitral valve prolapse) Pulmonary embolism (HCC) [employer] Work Phone: 1(746) 568-150906-07-2025 History and physical note* Vicky Car MD - 09/09/2024 12:15 PM EDT GASTROENTEROLOGY PHYSICIAN PRE PROCEDURE NOTE HPI: Laine Garcia is a 69 y.o. male who is here today for planned endoscopic examination. All: Allergies[1] Meds: Current Medications[2] PMH: Medical History[3] No reactions to anesthesia in the past. Airway patent PE: VS: BP 113/68 Pulse 73 Temp 36.3 C (97.4 F) (Temporal) Resp 12 SpO2 97% There is [...] mL/hr, IntraVENous, PRN, Skylar Reza APRN - JAIL GUARD sodium chloride 0.9% (NS) flush 10 mL, 10 mL, IntraVENous, 2 times per day, Skylar Reza APRN - DEANNA sodium chloride 0.9% (NS) flush 10 mL, 10 mL, IntraVENous, PRN, Skylar Reza APRN - JAIL GUARD sodium chloride 0.9% (NS) flush 5-40 mL, 5-40 mL, IntraVENous, q12h, Aliya Antonio MD, 10 mL at 09/09/24 1044 sodium chloride 0.9% (NS) flush 5-40 mL, 5-40 mL, IntraVENous, PRN, Aliya Antonio MD [3] Past Medical History: Diagnosis Date MVP (mitral valve prolapse) Pulmonary embolism (HCC) documented in this [facility]06-07-2025 [facility] 09-09-2024 Consult note* Skylar Reza, PUNCH MACHINE HAND - JAIL GUARD - 09/09/2024 10:36 AM EDT Associated Order(s): IP CONSULT TO GI Images from the original note were not included. Department of Internal Medicine Gastroenterology Attending Consult Note Reason for Consult: The patient was seen in consultation at the request of Dr. Antonio re: GI bleed, EGD. CHIEF COMPLAINT: Hematemesis History Obtained From: patient, family, EMR HISTORY OF PRESENT ILLNESS: The patient is a 69 y.o. male with significant past medical history of Factor V leiden, MVP, PE, recently diagnosed DVT on Eliquis, bleeding ulcers, GERD s/p basia and gastric perforation s/p take down of Basia with laparoscopic wedge resection 08/10/2024 who presents as transfer from [place] ED using [employer] flight with concern for acute upper GI bleeding. Patient was seen in [facility] ED yesterday with c/o abdominal pain. Hgb stable at that time (hgb 10.4) and CT A/P without findings to explain symptoms. He was discharged home. Notes around 5 am this morning, had vomiting of blood and associated fainting. Presented to [place] ED where family reports hgb was 6. He is s/p 1 unit PRBC per family. Current hgb 7.8. Admitted at [place] hospital s/p bleeding duodenal ulcer with visible vessel 08/2024. He was transferred to [facility] from [place] with duodenal perforation. He is s/p diagnostic laparoscopy 08/09 and laparoscopic wedge resection of gastric perforation 5/8. Discharged from hospital 08/13/2024. Readmitted to hospital 08/24/2024 Was planning for duodenal stent removal yesterday but patient took Eliquis and this could not be completed. Per CT A/P yesterday, prior gastric/duodenal stent now migrated into right colon with tip at level of hepatic flexure. Allergies: Penicillins Current Medications: Current Medications[1] Past Medical History: Active Ambulatory Problems Diagnosis Date Noted Duodenal perforation ([facility]) ([facility]) 08/09/2024 Duodenal ulceration 08/09/2024 Pneumoperitoneum 08/09/2024 Severe malnutrition ([facility]/HCC) ([facility]) 08/12/2024 Abdominal pain 08/25/2024 Resolved Ambulatory Problems Diagnosis Date Noted Malnutrition ([facility]) ([facility]) 08/12/2024 Past Medical History: Diagnosis Date MVP (mitral valve prolapse) Pulmonary embolism ([facility]) Past Surgical History: Social History Socioeconomic History [...] VS: BP 113/68 Pulse 73 Temp 36.3 C (97.4 F) (Temporal) Resp 12 SpO2 97% There is [...] good position with small metallic foreign matter bythe inferior aspect left renal vein, degenerative facet and disc changes lumbar spine, prostatic enlargement, prior posterior wall stomach surgery. Report Dictated on Electronically Signed By: Henry Gonzales MD Electronically Signed Date/Time: 09/08/2024 3:58 PM EDT Endoscopic Review IMPRESSION/RECOMMENDATIONS: Hematemesis -patient reports multiple episodes of hematemesis starting 0500 today History of bleeding duodenal ulcer-08/07/2024 oozing duodenal ulcer with visible vessel; treated withAPC, clips placed History of duodenal perforation -08/10/2024 [...] of hepatic flexure. --plan discussed with Dr. Tahan [1] Current Facility-Administered Medications: acetaminophen (Ofirmev) IVPB [...] IntraVENous, 2 times per day, BARRIE Encarnacion CNP sodium chloride 0.9% (NS) flush 10 mL, 10 mL, IntraVENous, PRN, Skylar Reza APRN - DEANNA sodium chloride 0.9% (NS) flush 5-40 mL, 5-40 mL, IntraVENous, q12h, Aliya Antonio MD, 10 mL at 09/09/24 1044 sodium chloride 0.9% (NS) flush 5-40 mL, 5-40 mL, IntraVENous, PRN, Aliya Antonio MD [2] No family history on file. Cosigned by Vicky Car MD at 09/09/2024 12:34 PM EDT [facility] [employer] Phone: 1(807) 636-850406-07-2025 [facility]06-07-2025 Radiology Diagnostic study note [facility] Imaging Services [address] [place] [id number] CTA Abd/Pelvis W/WO Contrast MR#: [id number] Acct: [id number] Name: LAINE GARCIA Rep #: [id number] : 1955 M 69 From: Tiffanie Olson MD PCP: Dr. Dante Gurrola MD Status: REG E R Study:CTA Abd/Pelvis W/WO Contrast Date of Ex am: 09/09/24 Exam# [id number] Ordering Dr: Corie Urena MD PROCEDURE: CTA ABD/PELVIS W/WO CONTRAST 09/09/2024 REASON FOR EXAM: HYPOTENSION AND ACTIVE GI BLEED TECHNIQUE: CTA imaging of the abdomen and pelvis with intravenous contrast. Multiplanar andmultisequence images were obtained. CONTRAST: Omnipaque 350 VOLUME: 100 mL One or more dose reduction techniques were used (e.g., Automated exposure control, adjustment of the mA and/or kV according to patient size, use of iterative reconstruction technique). COMPARISON: CT abdomen and pelvis 08/09/2024 and 08/07/2024 FINDINGS: Aorta: Abdominal aorta is normal in size. Minimal atherosclerotic plaque. No evidence of aneurysm or dissection. Iliac Arteries: Iliac arteries are normal in size with no significant plaque or stenosis. Celiac: Normal. SMA: Normal. OLEKSANDR : Normal. Right Renal: Single patent right renal artery. Left Renal: Single patent left Other: IVC stent is noted. Lung bases: Patchy opacities in the right lung base, compatible with atelectasis. Liver: Homogeneous attenuation. 18 mm left lobe simple cyst. Bile ducts: No intrahepatic or extrahepatic bile duct dilation. Gallbladder: No calcified gallstones. No gallbladder wall thickening or pericholecystic fluid. Spleen: Within normal limits. Pancreas: Within normal limits Adrenal glands: Within normal limits Kidneys/Ureters: Symmetric bilateral renal enhancement. No hydronephrosis or renal calculi. No hydroureter. 30 mm exophytic right upper pole simple cyst. Bladder: Large amount of contrast within the urinary bladder. Reproductive: Mild prostatomegaly. Lymph nodes: No enlarged lymph nodes Bowel: Mild wall thickening and hyperemia involving the gastric pylorus. Otherwise, the stomach is unremarkable. No bowel dilation. Interval migration previously noted gastroduodenal stent, now in the distal transverse colon, the splenic flexure (series 601 image 22, series 2, image 49). No bowel dilation. No evidence of active GI bleed. Largecolonic stool. Appendix is normal. Peritoneum: No free air, ascites, or fluid collection. Retroperitoneum: Within normal limits. Abdominal wall: Within normal limits. Bones: No significant multilevel spondylosis. Maintained vertebral body heights CT/CTA Abd/Pelvis W/WO Contrast IMPRESSION: 1. No evidence of acute contrast extravasation, to suggest gastrointestinal bleed. 2. No evidence of acute aortic dissection, thrombosis or pseudoaneurysm formation. 3. Interval migration previously noted gastroduodenal stent, now within the distal transverse colonof the splenic flexure. 4. Other findings as described above. Reading Location: [facility] CC: Dr. Dante Gurrola MD; Dr. Sy Urena MD ~ Residential Mortgage Underwriter: Signed [facility]06-07-2025 Discharge summary [facility] Medical Records Department [address] [place] [address] Emergency Department Summary 09/09/24 MR#: [id number] Acct: [id number] Name: LAINE GARCIA Rep #:[id number] : 1955 69 From: Sy Urena MD PCP: Dr. Dante Gurrola MD Status:REG E R Location: ED HPI History of Present Illness Chief Complaint: Alt LOC Detail of Chief Complaint: GI bleed, hypotension and altered mental status Informant: patient, spouse/S.O. and family Onset/Context/Timing Onset: Today Context: Sudden Onset Timing: Intermittent Quality: Vomiting blood. On apixaban for DVT Location: Upper GI bleed Current Severity: Severe Maximum Severity: Severe Worsened by: Took apixaban yesterday Relieved by: Nothing Associated Symptoms Associated Symptoms: abdominal pain, chest pain, chills, cough, fever, vomiting,diarrhea, palpitations, suicidal thoughts and other Narrative Narrative: Patient is a 69-year-old male. He has history of peptic ulcer disease with apparent perforation that was repaired laparoscopically by Dr. Zara Spann at [facility]. He was seen by GI. Apparently the stent that was placed by Dr. Avendano had migrated and there was thought of removing it. They did not remove it since he took a dose of apixaban. Cording to family he did not take apixaban or Wednesday morning. He did take a dose last evening. He is onapixaban because he was recently diagnosed with DVT. Reviewing Dr. Avendano's office note from August 22 indicates patient had recent pulmonary embolus subsegmental. Without acute cor pulmonale. Procedure note performed by Dr. Avendano on August 07 was reviewed. Patient was noted to have normalesophagus and normal stomach. Oozing was noted from multiple duodenal ulcers with visible vessels noted. These were injected and treated with argon plasma coagulation (APC). Prosthesis placed and clips were placed. Patient also had small intestinal endoscopy and enteroscopy beyond second portion of the duodenumnot including the ileum with trans endoscopic stent placement including predilatation. Patient has been up at [facility]. Apparently after multiple CAT scansthey determined thathe had a perforation in the posterior wall of his stomach that was adherent to his liver. He had laparoscopic surgery by Dr. Zara Spann. He also was found to have a DVT. He is presently on apixaban. This morning every time patient attempted to stand he had near syncope versus 1 episode of syncope.He has vomited blood per family. There was noted to be blood on his bedoya. There was discussion regarding NG because he did not tolerate it well last time. Explained to the patient and family that NGwas placed as he was actively bleeding 1 to determine if we need to reverse his apixaban. At that ti me I was informed that he only has taken 1 dose in the last48 hours and that was last evening. He did not take his dose this morning. Andto determine if he is stable to stay here or require transfer back to [facility]. Prior similar symptoms: Yes Recent Illness/[facility] Medical History History of DVT (deep vein thrombosis) Mitral valve prolapse unable to obtain (Documented in the HPI narrative.) Home Medications ?Medication ?Instructions ?Recorded ?Last Taken ?Type multivitamin 1 tab PO DAILY supplement 08/05/24 History omega-3 fatty acids 1,000 mg 2,000 mg PO BID supplemen t 01/22/20 08/05/24 Hi story capsule apixaban 5 mg tablet (Eliquis) 5 mg PO BID 09/01/24 Un known History oxycodone-acetaminophen 5 mg-325 1 tab PO Q6H PRN pain 09/09/24 Unknown History mg tablet (Percocet) Allergy/AdvReac Type Severity Reaction Status Date / Time Penicillins AdvReac PT UNABLE Verified 09/09/24 06:30 TO RESPOND-NEEDS F/U Family History Father Myocardial infarction Mother CVA (cerebral vascular accident) Surgical History H/O shoulder surgery History of repair of hiatal hernia Social History Smoking Status: Never smoker alcohol intake: never ROS ROS ED Constitutional Constitutional ED: Denies chills, fever(s), subjective, sweats or weight loss Eyes Eyes: Denies blurry vision or change in vision ENT ENT ED: Denies ear pain or rhinorrhea Cardiovascular Cardiovascular: Denies chest pain, orthopnea, palpitations or paroxysmal nocturnal dyspnea Respiratory/Chest Respiratory/Chest: Denies cough, dyspnea, dyspnea on exertion, orthopnea or paroxysmal nocturnal dyspnea Gastrointestinal Gastrointestinal: Reports nausea, vomiting and other Details: Patient not had a bowel movement in 2days. ; Denies abdominal pain Genitourinary Genitourinary ED: Denies dysuria, hematuria or urinary frequency Musculoskeletal Musculoskeletal: Denies arthralgias or myalgias Integumentary Denies abscess or rash Neurologic Neurologic: Denies headache(s), paresthesias or weakness Psychiatric Psychiatric: Denies anxiety or depression Endocrine Endocrinology: Denies polydipsia, polyphagia or polyuria Hematologic/Lymphatic Hematologic/Lymphatic: Reports easy bleeding and easy bruising EXAM Physical Exam Const Vital Signs: 09/09/24 06:30 09/09/24 07:34 09/09/24 08:00 Temperature 97.5 F L Temperature Source Oral Pulse Rate 68 73 62 Respiratory Rate 20 H 16 16 Blood Pressure 112/65 125/73 H 113/70 Blood Pressure Mean 80 90 84 Blood Pressure Source Blood Pressure Position Blood Pressure Location Pulse Ox 99 95 100 Oxygen Delivery Method Nasal Cannula Nasal Cannula Oxygen Flow Rate (L/min) 2 2 09/09/24 08:01 09/09/24 08:38 Temperature 97.7 F L 97.7 F L Temperature Source Temporal Temporal Pulse Rate 74 72 Respiratory Rate 17 17 Blood Pressure 113/70 127/72 H Blood Pressure Mean 84 90 Blood Pressure Source Monitor Blood Pressure Position Semi-Fowlers Blood Pressure Location Left Arm Pulse Ox 100 100 Oxygen Delivery Method Room Air Nasal Cannula Oxygen Flow Rate (L/min) 1.5 Positive well nourished and well developed Constitutional Narrative: Patient appears pale. Blood pressure after liter of fluids has improved. He was hypotensive per paramedics. Patient's blood pressure has been trending downsince he has been here. General Appearance ED: well developed and pallor HEENT normocephalic and atraumatic Eyes PERRL and EOMs intact bilaterally General Eye ED: Yes pale conjunctiva; Negative for scleral icterus Neck full ROM, no lymphadenopathy, supple and no JVD Resp Resp Narrative: Lungs are clear to auscultation. Breath sounds were noted bilaterally. Cardio regular rate, regular rhythm, S1 normal heart sound, S2 normal heart sound and no murmurs GI non-tender, non-distended and no masses GI Narrative: Patient had episode of vomiting prior to placement of NG and it is a dark red consistent with acuteGI bleed. Auscultation: normoactive bowel sounds Palpation: soft Back/Spine no CVA tenderness Neuro oriented x3 and CN's II-XII intact bilaterally Neuro Narrative: According to family and he was not very responsive at home presume this is due to poor perfusion. Sensory Exam: sensory level loss detected Psych mental status grossly normal Skin General Skin Exam: jaundice and pallor Lesions: no lesions Rashes: no rashes MDM MDM MDM Narrative Medical decision making narrative: In light of patient's complicated past history and reported vomiting of blood and the fact that he is on anticoagulant NG was ordered to see if he still actively bleeding. He was typed and screened. NG was not placed because he vomited and there is evidence that he is still actively bleeding. Patient did receive a liter of normal saline. He was typed and screened. EKG was obtained to evaluate forcardiac ischemia. BMP was obtained assess electrolytes CO2 anion gap. Lactate to assess if patient has poor perfusion which clinically he does and would support that he has hemorrhagic shock due to his GI bleed. Dr. Avendano was paged. In light of patient's complex history the fact that he had recent procedures at [facility] with a perforated ulcer that was repaired surgically recommended transfer back to [facility]. In light of this we will have adoption services manager contact [facility] and arrange for urgent transfer. In light of patient's recent diagnosis of multi segmental PE and DVT if he remains hemodynamically stable will not reverse his anticoagulant. If he becomes unstable will reverse. Furthermore if he develops maroon or bright red blood per rectum which would indicate a massive GI bleed he will be reversed. 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 Lab Data Attestation: I reviewed the patient's lab results. Lab results narrative: H&H is 6.6 and 20.8. Platelet count is 217,000. CBC is unremarkable otherwise. Basic metabolic panel visit elevated BUN/creatinine ratio of 33:1. Glucose is elevated 177 with a normal CO2 anion gap. Lactate was normal at 1.7. Labs: Laboratory Results - last 24 hr 09/09/24 07:18 WBC 10.6 RBC 2.27 L Hgb 6.6 L Hct 20.8 L MCV 91.6 MCH 29.1 MCHC 31.7 L RDW Std Deviation 51.1 H RDW Coeff of Edna 15.5 H Plt Count 217 MPV 9.5 Immature Gran % (Auto) 0.600 Neut % (Auto) 87.0 H Lymph % (Auto) 6.9 L [place] % (Auto) 3.8 Eos % (Auto) 1.6 Baso % (Auto) 0.1 Absolute Neuts (auto) 9.2 H Absolute Lymphs (auto) 0.73 L Nucleated RBC % 0 Sodium 141 Potassium 4.6 Chloride 108 Carbon Dioxide 25.7 Anion Gap 7 BUN 24 H Creatinine 0.72 Estim Creat Clear Calc 88.72 Est GFR (MDRD) Non-Af 98 BUN/Creatinine Ratio 32.8 H Glucose 177 H Lactic Acid 1.7 Calcium 7.4 L Blood Type O POSITIVE Antibody Screen NEGATIVE Crossmatch See Detail Patient received 1 unit of trauma blood. Radiography Diagnostic Testing: CTA was not read prior to patient's transfer via helicopter to [facility]. EKG Initial EKG: Attestation: I personally reviewed and interpreted this EKG as follows: Interpretation: Sinus Rhythm (Rate is 64. He has sinus arrhythmia. Parables 134 ms. QS duration 88 ms. QT duration 436 ms. [place] is normal. In my opinion the EKG is normal) Treatment and Re-Evaluation Narrative: Physicians was contacted. The informed the charge nurse that it would be minimum of 3 hours before transport. In light of patient's critical condition he will be flown. [facility] is contacting helicopter service. Critical Care Time Critical Care Time: Yes Critical care time (excluding procedures): 30-74 minutes (37), Including time spent: (History, physical, documentation, review of prior records and labs, independent rotation of laboratory results, treatment for upper GI bleed), Discussing w/Patient &/or Family/Resolution Specialist ( and daughter andpatient), Discussing w/Consultants (ICU attending at [facility]. He requested a CT AP withimages sent to [facility]. He will talk with the surgical ICU attending. Patient is made aware as well as family.) and Arranging Admission or Transfer (Back ED transfer nurse for [facility]) Discharge Plan Triage Chief Complaint: Alt LOC ED Provider: Sy Urena Dx/Rx/DC Orders Clinical Impression: Acute upper gastrointestinal bleeding, Signs and symptoms of anemia, Symptomatic anemia, Anemia dueto acute blood loss, Orthostatic hypotension, Anticoagulant long-term use, Pulmonary embolism, DVT (deep venous thrombosis), S/P IVC filter Prescriptions: No Action Eliquis 5 mg tablet 5 mg PO BID multivitamin 1 EACH tablet 1 tab PO DAILY omega-3 fatty acids 1,000 MG capsule 2,000 mg PO BID oxycodone-acetaminophen [Percocet] 5-325 mg tablet 1 tab PO Q6H PRN (Reason: pain) Primary Care Provider: Dante Gurrola Referrals: Dante Gurrola DO [Primary Care Provider] - Print Language: Cymraes Disposition Disposition: Acute Care Hospital Discharge Location: [facility] What to do if you have Problems For any increased pain, shortness of breath, bleeding, nausea or vomiting, chestpain, or any unexpected problems, contact your Primary Care Provider. Call [facility] ([phone]) or report tothe closest Emergency Room. Call 911 if necessary. 09/09/24 0909 Cosigner Signature (if applicable): CC: Dr. Dante Gurrola MD ~ Signed [facility]06-07-2025 Chief complaint+Reason for visit Narrative * Chief Complaint Admit Date alt loc September 09, 2024 6:29a m Consultation for upper/lower scope Augus t 2024 7:27am Reason for Visit Admit Date Abdominal pain November 21, 2024 7: 27am Duodenal ulcer November 21, 2024 7: 27am Pulmonary embolism November 21, 2024 7: 27am Acute anemia January 01, 2025 5:26am Duodenal ulcer January 01, 2025 5:26am Upper GI bleed January 01, 2025 5:26am [facility] Work Phone: 1(251) 764-321606-06-2025 Emergency department Note* Dione Tucker, BARRIE - JAIL GUARD - 09/08/2024 11:40 AM EDT EMERGENCY DEPARTMENT ENCOUNTER Pt Name: Laine Garcia Birthdate 1955 Date of evaluation: 09/08/2024 ED Provider: Dione Tucker APRN - DEANNA EDcare was supervised by Dr. Bolden who [...] gastric perforation status post taken down at [place] with laparoscopic wedge resection on August 10, 2024 presents to the emergency department today for abdominal pain. Patient states that he has been having right left lower quadrant discomfort for 2 days. Is progressively worsened for him. Hewas recently discharged from our facility on August [...] 1251] Temp Heart Rate Resp BP 37.1 C (98.7 F) 79 16 (!) 154/100 SpO2 Temp Source [...] inflammation. This specimen will not reflex to aurine culture. BASIC METABOLIC PANEL - Abnormal SODIUM [...] 154/100 Pulse: 79 Resp: 16 Temp: 37.1 C (98.7 F) TempSrc: Temporal SpO2: 98% Medications morphine injection [...] flexure clip with duodenum which has not migratedand there is some vague soft tissue thickening without definite free air and small hepatic renal cysts. I spoke with gastroenterology on-call who recommends discharge home with pain control and follow-up on Wednesday. States if the patient does passes that he wants a photo of it. The patient states they are [employer] origin of capabilities of this. They did [...] are any questions or concerns please feel freeto contact the dictating provider for clarification.) BARRIE Duffy CNP (electronically signed) Emergency Medicine Provider [1] Past [...] 0 Homeless in the Last Year: No BARRIE Duffy CNP 09/08/24 5953 Cosigned by Laine Moya MD at 09/08/2024 8:26 PM EDT * Laine Moya MD - 09/08/2024 11:40 AM EDT Emergency Department Encounter [facility] EMERGENCY DEPT Patient: Laine Garcia : [...] to the emergency department patient has a historyof ulcers had surgery with gastroduodenal stent placed [...] rate without murmur. Abdomen no sternal bowel soundsall quadrants soft there is left lower quadrant tenderness without rebound or mass Brief ED course/MDM: This patient with left lower quadrant pain is still has a gastroduodenal stentand recent surgery a month ago. Will check [...] are any questions or concerns please feel freeto contact the dictating provider for clarification.) Laine Moya MD Acute Care [facility] Laine Moya MD 09/08/242025 * Alessandra Perdomo PA-C - 09/08/2024 11:40 AM EDT I did not participate in this patient's care, the patient wanted to change his prescription location. Unfortunately previous provider had already left the emergency department, Percocet for the next 3 days was sent to patient's pharmacy, as well as the [facility]. I am not the net software developer of record. Alessandra Perdomo PA-C 09/08/24 1736 * Terri Adair RN - 09/08/2024 11:40 AM EDT Pt complains of abd pain that started Wednesday. Pt states surgery 08/09. documented in this [facility]06-06-2025 Emergency department Triage note* Terri Adair RN - 09/08/2024 11:40 AM EDT Pt complains of abd pain that started Wednesday. Pt states surgery 08[facility]09. [id number] Physician Emergency department Note* BARRIE Duffy CNP - 09/08/2024 11:40 AM EDT EMERGENCY DEPARTMENT ENCOUNTER Pt Name: Laine Garcia Birthdate 1955 Date of evaluation: 09/08/2024 ED Provider: BARRIE Duffy CNP EDcare was supervised by Dr. Bolden who [...] gastric perforation status post taken down at [place] with laparoscopic wedge resection on August 10, 2024 presents to the emergency department today for abdominal pain. Patient states that he has been having right left lower quadrant discomfort for 2 days. Is progressively worsened for him. Hewas recently discharged from our facility on August [...] 1251] Temp Heart Rate Resp BP 37.1 C (98.7 F) 79 16 (!) 154/100 SpO2 Temp Source [...] inflammation. This specimen will not reflex to aurine culture. BASIC METABOLIC PANEL - Abnormal SODIUM [...] 154/100 Pulse: 79 Resp: 16 Temp: 37.1 C (98.7 F) TempSrc: Temporal SpO2: 98% Medications morphine injection [...] flexure clip with duodenum which has not migratedand there is some vague soft tissue thickening without definite free air and small hepatic renal cysts. I spoke with gastroenterology on-call who recommends discharge home with pain control and follow-up on Wednesday. States if the patient does passes that he wants a photo of it. The patient states they are [place] origin of capabilities of this. They did [...] are any questions or concerns please feel freeto contact the dictating provider for clarification.) Dione Tucker, BARRIE - JAIL GUARD (electronically signed) Emergency Medicine Provider [1] Past [...] 0 Homeless in the Last Year: No BARRIE Duffy CNP 09/08/24 1723 Cosigned by Laine Moya MD at 09/08/2024 8:26 PM EDT [id number] Physician Emergency department Note* Laine Moya MD - 09/08/2024 11:40 AM EDT Emergency Department Encounter [facility] EMERGENCY DEPT Patient: Laine Garcia : 1955 [...] to the emergency department patient has a historyof ulcers had surgery with gastroduodenal stent placed [...] rate without murmur. Abdomen no sternal bowel soundsall quadrants soft there is left lower quadrant tenderness without rebound or mass Brief ED course/MDM: This patient with left lower quadrant pain is still has a gastroduodenal stentand recent surgery a month ago. Will check [...] are any questions or concerns please feel freeto contact the dictating provider for clarification.) Laine Moya MD Acute Care [facility] Laine Moya MD 09/08/242025 [employer] Phone: 1(282) 666-317006-06-2025 Physician Emergency department Note* Alessandra Perdomo PA-C - 09/08/2024 11:40 AM EDT I did not participate in this patient's care, the patient wanted to change his prescription location. Unfortunately previous provider had already left the emergency department, Percocet for the next 3 days was sent to patient's pharmacy, as well as the [facility]. I am not the net software developer of record. Alessandra Perdomo PA-C 09/08/24 1736 [id number] [facility]05-23-2025 Telephone encounter Note* Telephone Encounter - Nikki Gonzales PA-C - 08/25/2024 7:55 AM EDT Patient currently in the hospital [facility] [employer] Work Phone: 1(783) 183-741705-23-2025 Miscellaneous Notes* Telephone Encounter - Nikki Gonzales PA-C - 08/25/2024 7:55 AM EDT Patient currently in the hospital * Telephone Encounter - Nereyda Sorto RN - 08/24/2024 8:07 PM EDT S: Patient spoke with CAC nurse regarding [...] (38.0 C) Protocols used: Post-Op Symptoms and [id number] documented in this encounterSChildren's Hospital for [id number] [facility] 08-24-2024 Telephone encounter Note* Telephone Encounter - Nereyda Sorto RN - 08/24/2024 8:07 PM EDT S: Patient spoke with CAC nurse regarding [...] (38.0 C) Protocols used: Post-Op Symptoms and [id number] [id number] History of Present illness Narrative* Zara Spann DO - 08/24/2024 9:45 AM EDT Images from the original note were not included. [facility] Advanced Laparoscopic Surgery Patient Name: Laine Garcia [...] 36.5 C (97.7 F) (Temporal) Ht 5' 11 (1.803 m) Wt 169 lb 6.4 oz (76.8 kg) SpO2 99% BMI 23.63 kg/m Physical Exam: The wounds are healing well. There is no evidence of infection, seroma, erythema or hernia Pathology: Addendum Immunohistochemical stain for Helicobacter pylori organisms was performed, and is negative Addendum electronically signed by Valeria Reeyz MD on 08/22/2024 at 1554 EDT Final [...] may increase their activity to a normal levelyet refrain from lifting greater than 15# for [...] medications for this visit. documented in this [facility]05-15-2025 Telephone encounter Note* Telephone Encounter - Nikki Gonzales PA-C - 08/17/2024 12:31 PM EDT Spoke to Dr. Spann. Spoke to Dr. Gurrola, patient's PCP, requesting info regarding whether patient is safe to return on anticoagulation. Per Dr. Spann, patient ok to resume anticoagulation therapy at this time and we recommend patient f/u with his GI team for further management. Patient is not currently hospitalized,he was just trying to catch up on patient's recent hospitalization. Patient scheduled for f/u with us on 08/24. No further questions at this time. [employer] Phone: 1(766) 408-792305-15-2025 Miscellaneous Notes* Telephone Encounter - Nikki Gonzales PA-C - 08/17/2024 12:31 PM EDT Spoke to Dr. Spann. Spoke to Dr. Gurrola, patient's PCP, requesting info regarding whether patient is safe to return on anticoagulation. Per Dr. Spann, patient ok to resume anticoagulation therapy at this time and we recommend patient f/u with his GI team for further management. Patient is not currently hospitalized,he was just trying to catch up on patient's recent hospitalization. Patient scheduled for f/u with us on 08/24. No further questions at this time. * Telephone Encounter - Fabiola Sosa - 08/17/2024 12:[address] Gurrola wants to know if the ulcer is fixed for him to be on Aspirin for the PE. States we missedthe ball somewhere. Patient does not have a PCP right now. Dr Gurrola wants to know If everything isok for him to be on it. DP * Telephone Encounter - Nikki Gonzales PA-C - 08/17/2024 12:02 PM EDT Per chart review, patient was advised to follow up with PCP (if he has one) to discuss resuming aspirin versus anticoagulation for history of PE. He was not discharged home with anticoagulation. Otherwise will need to establish with a PCP. Thanks * Telephone Encounter - Carmel Archuleta - 08/17/2024 9:[address] Dante Gurrola called to find out some information about the pt. He is in [facility] and wastold he is suppose to be on a blood thinner. The GI Dr at [place] is against him being on one if hehas an ulcer. Dr would like a call back with some clarification, he stated he has tried getting records from [facility] and the medical records department said they had no records. 's cell number is [phone]. documented in this encounterSChildren's Hospital for [id number] Telephone encounter Note* Telephone Encounter - Fabiola Sosa - 08/17/2024 12:[address] Gurrola wants to know if the ulcer is fixed for him to be on Aspirin for the PE. States we missedthe ball somewhere. Patient does not have a PCP right now. Dr Gurrola wants to know If everything isok for him to be on it. DP [id number] Telephone encounter Note* Telephone Encounter - Nikki Gonzales PA-C - 08/17/2024 12:02 PM EDT Per chart review, patient was advised to follow up with PCP (if he has one) to discuss resuming aspirin versus anticoagulation for history of PE. He was not discharged home with anticoagulation. Otherwise will need to establish with a PCP. Thanks [id number] Telephone encounter Note* Telephone Encounter - Carmel Archuleta - 08/17/2024 9:[address] Dante Gurrola called to find out some information about the pt. He is in [facility] and wastold he is suppose to be on a blood thinner. The GI Dr at [place] is against him being on one if hehas an ulcer. would like a call back with some clarification, he stated he has tried getting records from [facility] and the medical records department said they had no records. 's cell number is [phone]. [id number] Nurse Note* Consuelo Patton RN - 08/13/2024 11:44 AM EDT Discharge instructions reviewed with the patient. Patient verbalized an understanding. Iv was removed from the patient and all personal belongings were sent home with him. Patient was transported home by family. [id number] Nurse Note* Consuelo Patton RN - 08/13/2024 11:44 AM EDT Discharge instructions reviewed with the patient. Patient verbalized an understanding. Iv was removed from the patient and all personal belongings were sent home with him. Patient was transported home by family. documented in this encounterSChildren's Hospital for [id number] Plan of care note* Care Plan - Consuelo Patton RN - 08/13/2024 10:29 AM EDT Problem: Pain - Adult Goal: Verbalizes/displays adequate [...] needs are met Outcome: Adequate for Discharge [id number] Miscellaneous Notes* Care Plan - Consuelo Patton RN - 08/13/2024 10:29 AM EDT Problem: Pain - Adult Goal: Verbalizes/displays adequate [...] needs are met Outcome: Adequate for Discharge * Care Plan - Yen Blackwell RN - 08/13/2024 6:03 AM EDT Problem: Pain - Adult Goal: Verbalizes/displays adequate [...] My discharge needs are met Outcome: Progressing * Care Plan - Mervat Lala RN - 08/12/2024 5:25 PM EDT Problem: Discharge Planning Goal: Discharge to home or other facility with appropriate resources 08/12/2024 1725 by Mervat Lala RN Outcome: Progressing 08/12/2024 0702 by Mervat Lala RN Outcome: Not Progressing * Post-Procedure Note - Beto Jackson MD - 08/12/2024 11:25 AM EDT Interventional Radiology Brief Postprocedure Note Procedure: US [...] STOMACH PERFORATION Tissue Stomach TISSUE EXAM Zara DO Kiera 08/10/2024 1706 Findings: small-moderate left pleural effusion Plan: routine postop care Complications: None Anesthesia: local See detailed result report with images in PACS. The patient tolerated the procedure well without incident or complication and is in stable condition. Beto Jackson MD Interventional Radiology Pager: * Care Plan - Yen Blackwell RN - 08/12/2024 5:51 AM EDT Problem: Pain - Adult Goal: Verbalizes/displays adequate comfort level or baseline comfort level Outcome: Progressing Problem: Safety - Adult Goal: Free from fall injury Outcome: Progressing Problem: Discharge Planning Goal: Discharge to home or other facility with appropriate resources Outcome: Progressing * Care Plan - Miles Riggins RN - 08/11/2024 6:29 PM EDT Problem: Pain - Adult Goal: Verbalizes/displays adequate comfort level or baseline comfort level Outcome: Progressing Problem: Safety - Adult Goal: Free from fall injury Outcome: Progressing Problem: Discharge Planning Goal: Discharge to home or other facility with appropriate resources Outcome: Progressing * Op Note - Zara Spann DO - 08/10/2024 3:54 PM EDT Images from the original note were not included. Patient: Laine Garcia Date of : 1955 Service Date: 08/10/2024 PROCEDURE: Laparoscopic wedge resection of stomach Laparoscopic enterolysis EGD 19 Nigerian drain placement. PREOPERATIVE DIAGNOSES: Patient Active Problem List Diagnosis Duodenal perforation (CMS/HCC) (HCC) Duodenal ulceration Pneumoperitoneum Gastric perforation POSTOPERATIVE DIAGNOSES: Same ANESTHESIA: General SURGEON: DR. Zara Spann TRAFFIC OBSERVER: Dr. Sandy Gallardo FLUIDS: 1000 cc crystalloid [...] This was difficult dissection along the diaphragmatic edgeon the patient's left side due to significant [...] and was easily transected with a Endo DEE DEE blue load stapler to close the gastrotomy. The specimen was then passed off the field. At this point we then insufflated the stomach. We very carefully evaluated all the superior surfaces of the posterior surfaces. The entire stomach was then dunked underwater to ensurethere was no further perforations and they were not. There was complete hemostasis. At this point we then placed a 19 Nigerian drain along the cephalad aspect of the spleen and the previous abscess cavity. This was brought up to the left upper quadrant trocar site. This trocar site was then closed using 2-0 silk suture. The abdominal cavity was then desufflated. 4-0 Monocryl was then placed to close the incisions. The patient was then extubated taken recovery in stable condition. * Op Note - Zara Spann DO - 08/10/2024 3:54 PM EDT Images from the original note were not included. Patient: Laine Garcia Date of : 1955 Service Date: 08/09/24 PROCEDURE: Diagnostic laparoscopy with laparoscopic enterolysis EGD PREOPERATIVE DIAGNOSES: Patient Active Problem List Diagnosis Duodenal perforation (CMS/HCC) (HCC) Duodenal ulceration Pneumoperitoneum Possible gastric perforation POSTOPERATIVE DIAGNOSES: Same ANESTHESIA: General SURGEON: DR. Zara Spann TRAFFIC OBSERVER: Dr. Vance FLUIDS: 1000 cc crystalloid ESTIMATED BLOOD LOSS: 10 cc URINE OUTPUT: Not recorded. PREOPERATIVE MEDICATIONS: 3 Ancef INDICATIONS FOR PROCEDURE: The patient is a 69 y.o. male presents to [facility] from outside facility with a possible [...] abdominal cavity. There was no fluid, no pus,no bilious fluid no other abnormalities. We then placed a mid abdominal 5 left upper quadrant 5 ginger right sided 5 mm trocar. Very careful examination of the abdominal cavity was completed. The duodenum was normal. The area of the stent was clearly visualized however there was no abnormality around the duodenum. No evidence of perforation noted. At this point we then began to evaluate the left upper quadrant. There was substantial scar in this area with the. Patient's previous Basia fundoplica tion. We mobilized the greater curve of the [...] fundoplication or further evaluate up by the spleenas there was substantial scar tissue. At this point we then abandon the procedure with plans for postoperative upper GI and further evaluation. We desufflated the abdominal cavity. We closed incisions using 4 Monocryl. Patient extubated taken recovery in stable condition. * Perioperative Nursing Note - Tonia Mckeon RN - 08/10/2024 1:34 AM EDT Report called to H5. * ED Attestation Note - Ganesh Earl MD - 08/09/2024 6:55 PM EDT Patient: Laine Garcia : 1955 Date of [...] the emergency department as a transfer from [facility] with concerns for perforated viscus. Patient was admitted to an outside facility 5days ago after having a syncopal episode. States [...] after the EGD secondary to concern for perforatedviscus and saw air on the CAT scan. [...] are any questions or concerns please feel freeto contact the dictating provider for clarification.) Ganesh Earl MD [employer] CHIEF COMPLAINT Chief Complaint Patient presents with [...] Response: Oriented Best Motor Response: Follows commands [place] Coma Scale Score: 15 PHYSICAL EXAM ED [...] at 7:20 PM shows sinus rhythm, ventricular of82 bpm, no ST segment elevation, nonspecific ST depression in lateral leads, QTc of 437 RADIOLOGY (Per Emergency Physician): Interpretation per the Radiologist below, if available at the time of this note: CT abdomen pelvis w contrast Final Result Addendum (preliminary) 1 of 1 [facility] Name: [facility]INE [facility] 1955 [id number] Exam Date/Time: 08/09/2024 21:15 Procedure: CT ABDOMEN [...] findings was made to Dr. Spann via [employer] on 08/09/2024 10:10 PM EDT. Report Dictated on Electronically Signed By: Jose D Ayon MD Electronically Signed Date/Time: 08/09/2024 10:10 PM EDT --------ORIGINAL REPORT -------- CT ABDOMEN AND PELVIS CLINICAL INDICATION: CF duodenal perforation TECHNIQUE: CT scan of the abdomen and pelvis with IV contrast. Multiplanar reformations. Dose reduction was employed with automated exposure control. COMPARISON: 08/05/2024 from [facility] FINDINGS: Small RIGHT and moderate to [...] findings was made to Dano James via [employer] on 08/09/2024 9:33 PM EDT. [...] findings was made to Dano James via [employer] on 08/09/2024 9:33 PM EDT. [...] based on Xa activity inhibition, is an APTTof 46-80 seconds. LACTIC ACID WITH REFLEX - [...] Procedure Abnormality Status --------- ------ Comprehensive metabolic ...[[id number]] Please view results for these tests on [...] (!) 88% 92% Weight: Diagnoses as of 08/10/24117 Duodenal perforation (CMS/HCC) (HCC) Medications lactated Ringer's infusion ( IntraVENous Stopped 08/10/24 0033) pantoprazole (ProtoNix) 40 mg in sodium chloride (PF) 0.9 % 10 mL injection ( IntraVENous Dose AutoHeld 08/17/24 2100) sodium chloride 0.9 % bolus [...] mL (100 mL IntraVENous Given 08/09/242117) REVAL: [facility] CRITICAL CARE TIME CONSULTS: None PROCEDURES: Unless otherwise noted below, none Procedures Patients symptoms are consistent with sepsis, severe sepsis, or septic shock (If yes use .sepsiscoremeasure): No FINAL IMPRESSION 1. Duodenal perforation (CMS/HCC) ([facility]) DISPOSITION Admit 08/09/2024 10:37:41 PM PATIENT REFERRED [...] are any questions or concerns please feel freeto contact the dictating provider for clarification.) Ganesh Earl MD (electronically signed) Emergency Medicine Provider Ganesh Earl MD 08/10/24 0118 documented in this [facility]05-11-2025 [facility] 08-13-2024 Hospital Discharge instructions* Discharge Instructions* Jaylyn Moore MD - 08/13/2024 6:11 AM EDT Images from the original note were not included. DISCHARGE INSTRUCTIONS Thank you very much for allowing me to participate in your care, it is truly a privilege. Below please see discharge orders that will help you during your recovery. Please do not hesitate to call theoffice during the day at [phone] for any questions. After hours, the same [...] a pool, go in a hot tub, orsoak in a bathtub for the first week [...] have been prescribed nausea medication. Try taking themedicine and if you feel that the medicine [...] tolerated. No lifting over {NUMBERS; 0-40 BY 5:47794} pounds. Wound Care: keep wound clean and [...] acetaminophen and/or NSAIDS, please take your opioid prescription([place]/vicodin/percocet have tylenol in them) as needed for [...] below. It is not necessary to wake yourselffrom sleep to take pain medication. 6am: 1000 [...] (5mg) tablets if needed documented in this [facility]05-11-2025 Plan of care note* Care Plan - Yen Blackwell RN - 08/13/2024 6:03 AM EDT Problem: Pain - Adult Goal: Verbalizes/displays adequate [...] My discharge needs are met Outcome: Progressing [id number] History of Present illness Narrative* Deidra Tello RD - 08/12/2024 5:49 PM EDT Nutrition Assessment Type and Reason for Visit: [...] Temples (temporalis) Fluid Accumulation: Unable to assess Fleet Mechanic Strength: Not Performed Nutrition Assessment: Pt with PMH of mitral valves prolapse, pulmonary embolism admitted 08/10 with concern for bleeding duodenal ulcer, possible perforated duodenal ulcer. Pt transferred from [facility] where he was already admitted for [...] and therefore he returned to OR 08/10 forNissen take down and laparoscopic wedge resection of stomach. No further surgical interventions plan colleen, and diet is now advanced to low [...] On: Kcal/kg Weight Used for Energy Requirements: [place] Weight for Energy Calculation (kg): 78 kg Total Energy Requirements (kcals/day): 5233-9370 Weight Used for Protein Requirements: [place] Weight in Kg Used for Protein Requirements: 78 kg Estimated Total Protein (g/day): 90-110 Estimated Daily Total Fluid (ml/day): Nutrition Related Findings: BM 08/10- loose stool; LUQ closed suction drain; A&Ox4; Siva 20; K+ 3.3, Cr 0.59, Hgb 9.7 WoundType: Surgical Incision Current Nutrition Therapies: Adult diet Regular; Low Fiber Current Oral Intake Average Meal Intake: Unable to assess Average Supplements Intake: None Ordered Anthropometric Measures: Height: 180.3 cm (5' 11) Current Body Weight: 77.1 kg (170 lb) Usual Body Weight: 81.6 kg (180 lb) % Weight Change (Calculated): -5.6 [place] Body Weight (lbs) (Calculated): 172 lbs [place] Body Weight (Kg) (Calculated): 78 kg % [place] Body Weight (Calculated): 98.8 % BMI (kg/m2) [...] soon to determine Deidra Tello RD Contact: [phone] * Sammi Oneil - 08/11/2024 1:15 PM EDT Nutrition rescreen completed. Patient referred to the Dietitian. Patient is NPO > 3 days. TEODORO Hernandez * Velasquez Daly - 08/10/2024 10:12 AM EDT Correction. Probable extravasation of contrast. * Zara Spann DO - 08/09/2024 10:59 PM EDT I (Zara Spann) personally supervised the physician shank scourer in the evaluation and development of a [...] discussing/counseling the patient, reviewing data, coordinating care, reviewingavailable imaging and creating a plan. The patient was seen and examined independently and relevantdata reviewed by myself. A full chart review was performed when available. At times this note may reflect a late entry to the visit that occurred on the date noted below ASSESSMENT: patient complex history. Admission to [facility] approximately four days ago. Patient with acute blood loss anemia from a digital ulceration. The patient has undergone multiple transfusions andinterventions at [facility]. Most recently the patient underwent clipping of dole ulcers, epinephrine injection, followed by argon beam. There was a concern for perforation, and therefore a stent also was placed in the duodenum. The patient this a.m. underwent CTA to rule out PE since he has a history of blood clots. On the CTscan, he was found to have free air and fluid surrounding the spleen. He subsequently underwent a IVC filter and was sent to [facility] for higher level of care. Patient [...] bedside. They are agreeable. documented in this [facility]05-10-2025 NoteProblem: Discharge Planning Goal: Discharge to home or other facility with appropriate resources 08/12/2024 1725 by Mervat Lala RN Outcome: Progressing 08/12/2024 0702 by Mervat Lala RN [facility] of care note* Care Plan - Mervat Lala RN - 08/12/2024 5:25 PM EDT Problem: Discharge Planning Goal: Discharge to home or other facility with appropriate resources 08/12/2024 1725 by Mervat Lala RN Outcome: Progressing 08/12/2024 0702 by Mervat Lala RN Outcome: Not Progressing [facility]05-10-2025 Procedure note* Post-Procedure Note - Beto Jackson MD - 08/12/2024 11:25 AM EDT Interventional Radiology Brief Postprocedure Note Procedure: US [...] condition. Beto Jackson MD Interventional Radiology Pager: [facility] Work Phone: 1(403) 314-459805-10-2025 [facility]05-10-2025 Procedure note* Arti Mathis RDMS - 08/12/2024 9:56 AM EDT Patient arrived to Ultrasound department for thoracentesis. History, medications and allergies reviewed. Dr Eliana Jackson in to discuss procedure and informed consent obtained. Patient assisted to sitting on the edge of the bed. Left upper back scanned, marked and prepped in sterile fashion. Procedure completed. 700mls of clear yellow fluid removed. Tegaderm applied. Patient tolerated procedure well. Patient transferred back to room. [id number] Procedure note* Arti Mathis RDMS - 08/12/2024 9:56 AM EDT Patient arrived to Ultrasound department for thoracentesis. [...] transferred back to room. documented in this [facility]05-10-2025 Plan of care note* Care Plan - Yen Blackwell RN - 08/12/2024 5:51 AM EDT Problem: Pain - Adult Goal: Verbalizes/displays adequate comfort level or baseline comfort level Outcome: Progressing Problem: Safety - Adult Goal: Free from fall injury Outcome: Progressing Problem: Discharge Planning Goal: Discharge to home or other facility with appropriate resources Outcome: Progressing [id number] Plan of care note* Care Plan - Miles Riggins RN - 08/11/2024 6:29 PM EDT Problem: Pain - Adult Goal: Verbalizes/displays adequate comfort level or baseline comfort level Outcome: Progressing Problem: Safety - Adult Goal: Free from fall injury Outcome: Progressing Problem: Discharge Planning Goal: Discharge to home or other facility with appropriate resources Outcome: Progressing [id number] [facility]05-08-2025 Procedure note* Op Note - Zara Spann DO - 08/10/2024 3:54 PM EDT Images from the original note were not included. Patient: Laine Garcia Date of : 1955 Service Date: 08/10/2024 PROCEDURE: Laparoscopic wedge resection of stomach Laparoscopic enterolysis EGD 19 Nigerian drain placement. PREOPERATIVE DIAGNOSES: Patient Active Problem List Diagnosis Duodenal perforation (CMS/HCC) (HCC) Duodenal ulceration Pneumoperitoneum Gastric perforation POSTOPERATIVE DIAGNOSES: Same ANESTHESIA: General SURGEON: DR. Zara Spann TRAFFIC OBSERVER: Dr. Sandy Gallardo FLUIDS: 1000 cc crystalloid [...] This was difficult dissection along the diaphragmatic edgeon the patient's left side due to significant [...] and was easily transected with a Endo DEE DEE blue load stapler to close the gastrotomy. The specimen was then passed off the field. At this point we then insufflated the stomach. We very carefully evaluated all the superior surfaces of the posterior surfaces. The entire stomach was then dunked underwater to ensurethere was no further perforations and they were not. There was complete hemostasis. At this point we then placed a 19 Nigerian drain along the cephalad aspect of the spleen and the previous abscess cavity. This was brought up to the left upper quadrant trocar site. This trocar site was then closed using 2-0 silk suture. The abdominal cavity was then desufflated. 4-0 Monocryl was then placed to close the incisions. The patient was then extubated taken recovery in stable condition. [id number] Procedure note* Op Note - Zara Spann DO - 08/10/2024 3:54 PM EDT Images from the original note were not included. Patient: Laine Garcia Date of : 1955 Service Date: 08/09/24 PROCEDURE: Diagnostic laparoscopy with laparoscopic enterolysis EGD PREOPERATIVE DIAGNOSES: Patient Active Problem List Diagnosis Duodenal perforation (CMS/HCC) (HCC) Duodenal ulceration Pneumoperitoneum Possible gastric perforation POSTOPERATIVE DIAGNOSES: Same ANESTHESIA: General SURGEON: DR. Zara Spann TRAFFIC OBSERVER: Dr. Vance FLUIDS: 1000 cc crystalloid ESTIMATED BLOOD LOSS: 10 cc URINE OUTPUT: Not recorded. PREOPERATIVE MEDICATIONS: 3 Ancef INDICATIONS FOR PROCEDURE: The patient is a 69 y.o. male presents to [facility] from outside facility with a possible [...] abdominal cavity. There was no fluid, no pus,no bilious fluid no other abnormalities. We then placed a mid abdominal 5 left upper quadrant 5 ginger right sided 5 mm trocar. Very careful examination of the abdominal cavity was completed. The duodenum was normal. The area of the stent was clearly visualized however there was no abnormality around the duodenum. No evidence of perforation noted. At this point we then began to evaluate the left upper quadrant. There was substantial scar in this area with the. Patient's previous Basia fundoplica tion. We mobilized the greater curve of the [...] fundoplication or further evaluate up by the spleenas there was substantial scar tissue. At this point we then abandon the procedure with plans for postoperative upper GI and further evaluation. We desufflated the abdominal cavity. We closed incisions using 4 Monocryl. Patient extubated taken recovery in stable condition. [id number] Nurse Note* Perioperative Nursing Note - Tonia Mckeon RN - 08/10/2024 1:34 AM EDT Report called to H5. [id number] [facility]05-07-2025 [facility]05-07-2025 Emergency department Note* Milady Melendez RN - 08/09/2024 10:38 PM EDT [facility] to [id number] Emergency department Note* Milady Melendez RN - 08/09/2024 10:38 PM EDT Patient taken to OR * Dano James PA-C - 08/09/2024 6:55 PM EDT Emergency Department Encounter [facility] EMERGENCY DEPT Patient: Laine Garcia : 1955 Date of Evaluation: 08/09/2024 ED KIN Provider: Dano James PA-C EDcare was supervised by Dr. Earl who independently examined and evaluated the patient. Please see their attestation note for further details. Chief Complaint Chief Complaint Patient presents with Shortness of Breath PICAYUNE Laine Garcia is a 69 y.o. male who presents to the emergency department for shortness of breath andbowel perforation. Patient transferred here from outside ED. [...] 374 ms QTC Interval 437 ms P [place] 50 degrees QRS [place] -9 degrees T Wave [place] 34 degrees DC Interval 142 ms Lactic acid with reflex [...] Addendum (preliminary) 1 of 1 Patient Name: LAIEN GARCIA : 1955 Exam Date/Time: 08/09/2024 21:15 [...] findings was made to Dr. Spann via [employer] on 08/09/2024 10:10 PM EDT. Report Dictated on Electronically Signed By: Jose D Ayon MD Electronically Signed Date/Time: 08/09/2024 10:10 PM EDT --------ORIGINAL REPORT -------- CT ABDOMEN AND PELVIS CLINICAL INDICATION: CF duodenal perforation TECHNIQUE: CT scan of the abdomen and pelvis with IV contrast. Multiplanar reformations. Dose reduction was employed with automated exposure control. COMPARISON: 08/05/2024 from [facility] FINDINGS: Small RIGHT and moderate to [...] findings was made to Dano James via [employer] on 08/09/2024 9:33 PM EDT. Report [...] findings was made to Dano James via [employer] on 08/09/2024 9:33 PM EDT. Report Dictated on Electronically Signed By: Jose D Ayon MD Electronically Signed Date/Time: 08/09/2024 9:55 PM EDT : EKG: All EKG's areinterpreted by the Emergency Department Physician in the absence of a manufacturing engineer machining. see their note for interpretation of EKG. EMERGENCY DEPARTMENT COURSE and DIFFERENTIAL DIAGNOSIS/MDM: External Records Review: Reviewed Care Everywhere Social Determinants of Health: none. Laine Garcia is a 69 y.o. male who presented to the emergency department for abdominal pain and possible bowel perforation. Differential diagnosis included bowel perforation, PE, GI bleed. Our workupconsisted of ordering/reviewing CBC, CMP, lipase, lactate, type and screen, PT/INR, CT abdomen/pel and showed no leukocytosis. CT abdomen/pelvis showed duodenal perforation. Surgery was consulted andwill see the patient. Surgery will admit patient [...] MEDICATIONS: New Prescriptions No medications on file @[facility]([id number]:LAST:1)@ (Please note: Portions of this note were completed with a voice recognition program. Efforts were made to edit the dictations but occasionally words and phrases are mis-transcribed.) Form [id number] Dano James PA-C [employer] Dano James PA-C 08/10/24 0203 Cosigned by Ganesh Earl MD at 08/10/2024 2:16 AM EDT * Imani Redman RN - 08/09/2024 6:55 PM EDT Pt transferred from [facility] for b/l PE and perforated ulcer. Pt had IVC filter placed today documented in this [facility]05-07-2025 [facility] 08-09-2024 Emergency department Triage note* Imani Redman RN - 08/09/2024 6:55 PM EDT Pt transferred from [facility] for b/l PE and perforated ulcer. Pt had IVC filter placed today [facility] [id number] Physician Emergency department Note* Dano James PA-C - 08/09/2024 6:55 PM EDT Emergency Department Encounter [facility] EMERGENCY DEPT Patient: Laine Garcia : 1955 Date of Evaluation: 08/09/2024 ED KIN Provider: Dano James PA-C EDcare was supervised by Dr. Earl who independently examined and evaluated the patient. Please see their attestation note for further details. Chief Complaint Chief Complaint Patient presents with Shortness of Breath PICAYUNE Laine Garcia is a 69 y.o. male who presents to the emergency department for shortness of breath andbowel perforation. Patient transferred here from outside ED. [...] 374 ms QTC Interval 437 ms P [place] 50 degrees QRS [place] -9 degrees T Wave [place] 34 degrees DC Interval 142 ms Lactic acid with reflex [...] 1 [facility] Name: [facility]ARCIA : 1955 [id number] Exam Date/Time: 08/09/2024 21:15 Procedure: CT ABDOMEN [...] findings was made to Dr. Spann via [employer] on 08/09/2024 10:10 PM EDT. Report Dictated on Electronically Signed By: Jose D Ayon MD Electronically Signed Date/Time: 08/09/2024 10:10 PM EDT --------ORIGINAL REPORT -------- CT ABDOMEN AND PELVIS CLINICAL INDICATION: CF duodenal perforation TECHNIQUE: CT scan of the abdomen and pelvis with IV contrast. Multiplanar reformations. Dose reduction was employed with automated exposure control. COMPARISON: 08/05/2024 from [facility] FINDINGS: Small RIGHT and moderate to [...] findings was made to Dano James via [employer] on 08/09/2024 9:33 PM EDT. Report Dictated on Workstation: [employer] Electronically Signed By: Jose D Ayon MD [...] findings was made to Dano James via [employer] on 08/09/2024 9:33 PM EDT. Report Dictated on Electronically Signed By: Jose D Ayon MD Electronically Signed Date/Time: 08/09/2024 9:55 PM EDT : EKG: All EKG's areinterpreted by the Emergency Department Physician in the absence of a manufacturing engineer machining. see their note for interpretation of EKG. EMERGENCY DEPARTMENT COURSE and DIFFERENTIAL DIAGNOSIS/MDM: External Records Review: Reviewed Care Everywhere Social Determinants of Health: none. Laine Garcia is a 69 y.o. male who presented to the emergency department for abdominal pain and possible bowel perforation. Differential diagnosis included bowel perforation, PE, GI bleed. Our workupconsisted of ordering/reviewing CBC, CMP, lipase, lactate, type and screen, PT/INR, CT abdomen/pel and showed no leukocytosis. CT abdomen/pelvis showed duodenal perforation. Surgery was consulted andwill see the patient. Surgery will admit patient [...] MEDICATIONS: New Prescriptions No medications on file @[facility]([id number]:LAST:1)@ (Please note: Portions of this note were completed with a voice recognition program. Efforts were made to edit the dictations but occasionally words and phrases are mis-transcribed.) Form [id number] Dano James PA-C [employer] Dano James PA-C 08/10/24 0203 Cosigned by Ganesh Earl MD at 08/10/2024 2:16 AM EDT [employer] Phone: 1(699) 849-782205-07-2025 Physician Emergency department Note* ED Attestation Note - Ganesh Earl MD - 08/09/2024 6:55 PM EDT Patient: Laine Garcia : 1955 Date of [...] the emergency department as a transfer from [facility] with concerns for perforated viscus. Patient was admitted to an outside facility 5days ago after having a syncopal episode. States [...] after the EGD secondary to concern for perforatedviscus and saw air on the CAT scan. [...] are any questions or concerns please feel freeto contact the dictating provider for clarification.) Ganesh Earl MD Acute Care [facility] CHIEF COMPLAINT Chief Complaint Patient presents with [...] Social History Socioeconomic History Marital status: SCREENINGS [place] Coma Scale Best Eye Response: Spontaneous Best [...] at 7:20 PM shows sinus rhythm, ventricular of82 bpm, no ST segment elevation, nonspecific ST [...] findings was made to Dr. Spann via [employer] on 08/09/2024 10:10 PM EDT. Report Dictated on Electronically Signed By: Jose D Ayon MD Electronically Signed Date/Time: 08/09/2024 10:10 PM EDT --------ORIGINAL REPORT -------- CT ABDOMEN AND PELVIS CLINICAL INDICATION: CF duodenal perforation TECHNIQUE: CT scan of the abdomen and pelvis with IV contrast. Multiplanar reformations. Dose reduction was employed with automated exposure control. COMPARISON: 08/05/2024 from [facility] FINDINGS: Small RIGHT and moderate to [...] Notification of these findings was made to aDno James via [employer] on 08/09/2024 9:33 PM EDT. [...] findings was made to Dano James via [employer] on 08/09/2024 9:33 PM EDT. [...] based on Xa activity inhibition, is an APTTof 46-80 seconds. LACTIC ACID WITH REFLEX - [...] Procedure Abnormality Status --------- ------ Comprehensive metabolic ...[[id number]] Please view results for these tests on [...] (!) 88% 92% Weight: Diagnoses as of 08/10/24 0118 Duodenal perforation (CMS/HCC) (HCC) Medications lactated Ringer's infusion ( IntraVENous Stopped 08/10/24 0033) pantoprazole (ProtoNix) 40 mg in sodium chloride (PF) 0.9 % 10 mL injection ( IntraVENous Dose AutoHeld 08/17/24 2100) sodium chloride 0.9 % bolus [...] mL (100 mL IntraVENous Given 08/09/242117) REVAL: [facility] CRITICAL CARE TIME CONSULTS: None PROCEDURES: Unless otherwise noted below, none Procedures Patients symptoms are consistent with sepsis, severe sepsis, or septic shock (If yes use .sepsiscoremeasure): No FINAL IMPRESSION 1. Duodenal perforation (CMS/HCC) (FORMERLY [facility]) DISPOSITION Admit 08/09/2024 10:37:41 PM PATIENT REFERRED [...] are any questions or concerns please feel freeto contact the dictating provider for clarification.) Ganesh Earl MD (electronically signed) Emergency Medicine Provider Ganesh Earl MD 08/10/24 0118 [employer] Phone: 1(987) 813-830205-07-2025 Progress note [facility] Medical Records Department [address] [place] [address] Progress Note 08/09/24 171 MR#: [id number] Acct: [id number] Name: LAINE GARCIA Rep #:[id number] : 1955 69 From: Betito Friend DO PCP: Dr. Dante Gurrola MD Status:ADM I N Location: [place] [address] Progress Note Patient was seen by hospitalist this morning with complaints of shortness of breath. He got a CT ofthe chest and it showed bilateral pulmonary emboli. [...] stricture with gastric outlet obstruction. He had alot of retained gas consistent with ileus after the procedure so NG tube was placed. NG tube came out overnight. His CT scan had showed improvement of gas without any signs of pneumoperitoneum. He iscontinues to improve. If he does well we will advance his diet as tolerated tomorrow. 08/09/2024-patient will be transferred to higher level of care for as it is assumed that he has air underneath the diaphragm secondary to worsening duodenalulcer. This is recommended by general surgeryas he may need a more advanced procedure than we can provide at this institution. Visit Charges Inpatient E&M: 39033 [facility] Hosp 08/09/24 2869 Betito Friend DO Cosigner Signature (if applicable): CC: ~ Signed [facility]05-07-2025 Procedure note [facility] Medical Records Department [address] [place] [address] Operative Report 08/09/24 1612 MR#: [id number] Acct: [id number] Name: LAINE GARCIA Rep #:[id number] : 1955 69 From: Lebron Francisco MD PCP: Dr. Dante Gurrola MD Status:ADM I N Location: [place] [address] Operative Report (Standard) Operative Information Date of Procedure: 08/09/24 Pre-Operative Diagnosis: PE, GI bleed Post-Operative Diagnosis: same Surgery/Procedure Performed: insertion IVC filter biology internship: No Type of Anesthesia: Local and Sedation,Conscious [...] clips. He has a history of remote DVTand is not currently on anticoagulation. He had an episode of hypoxia today and a CTA was performedwhich revealed bilateral pulmonary emboli as well as suggestion of some intra- abdominal catastrophethat his evolving. Plan is to transfer him to a tertiary facility but an IVC filter is felt to be appropriate to protect him from furtherembolic events while either awaiting transfer or during his subsequent care. Heis taken now for an emergent inferior vena cava filter placement. Description of procedure: Upon obtaining form consent and verification correct patient procedure site the patient was taken to the [facility] where he was positioned prepped and draped in usual sterilefashion. Time was performed to find sedation administered Versed and fentanyl. Skin overlying the right commonfemoral vein was anesthetized 1% lidocaine the vessel accessed under ultrasound guidance with a micropuncture needle wire. This then exchanged for micropuncture sheath routine injection ilio caval venogram was performed revealing satisfactory positioning with no extravasation or dissection and revealed a patent right iliac vein system. Through the micropuncture sheath a J- wire was advanced the micropuncture sheath exchanged for the Cook Celect filter delivery sheath and positioned at the L2 vertebral body. From this position subtraction venacavogram was performed revealing normal caliber vena cava that was patent and free of thrombus. This also revealed the confluence ofthe renal v eins which were marked on the screen. The Cook Celect filter was then advanced and positioned belowthe lowest renal vein deployed. Completion venacavogram was performed revealing satisfactory positioning with minimal tilt. The sheath was noted manual pressure held for 10 minutes until hemostasis was obtained. The patient was then taken to the PCU for bedrest and recovery prior to his anticipatedtransfer to a tertiary facility. Surgical Findings: see above Complications Complications: No 08/09/24 1618 Cosigner Signature (if applicable): CC: Dr. Hector Bhakta MD; Dr. Dante Gurrola MD; Dr. Lebron Francisco MD; Dr. Melonie Odell MD; Dr. Derrick Yadav MD~ Signed [facility]05-07-2025 Discharge summary Author Brandie Spears [facility] Note Date/Time August 09, 2024 2:05pm [facility] Medical Records Department [address] [place] [address] Discharge Summary 08/09/24 1345 MR#: [id number] Acct: [id number] Name: LAINE GARCIA Rep #:[id number] : 1955 69 From: Brandie Spears DO PCP: Dr. Dante Gurrola MD Status:ADM I N Location: U [id number]- 1 Providers Date of Admission: 08/05/24 Date of Discharge: 08/09/24 Primary Care Physician: Dr. Dante Gurrola DO Consultations 08/05/24 16:19 Consult: Gastroenterology Routine Consulting Provider: [facility] Reason for Consult: GI bleed EMERGENT [...] Hospital Course: Mr. Garcia is a 69-year-old Hoahaoism white male who presented to the emergency department at [facility] on 08/06/2019 2:25 syncopal episodes thathe experienced at home and 1 episode of maroon-colored stools. Patient had beenhaving abdominal discomfort with increasing epigastric pain for several months prior to presentation. He felt it was due to constipation. He had been taking aspirin for previous blood clots.. He states he had blood clots in [...] discussed with him. Family preferred transfer that [place] for proximity purposes and call was made to [facility]. Dr. Zara Spann accepted the patient for transfer after discussing the case with Dr. Bhakta and reviewing the images. He requested transfer to the emergency department as he was concerned he would have to take the patient directly to the OR. The patient was transferred in guarded but stable condition to [facility] on 08/09/2024. Antibiotics including ciprofloxacin and [...] habitus and no limitations Constitutional Narrative: Older, Hoahaoism male, lying in bed, family at bedside, [...] 87.4 H, Lymph % (Auto) 5.5 L, [place] % (Auto) 5.4, Eos % (Auto) 0.5, [...] 9:18 am with readback verification. Reading Location: [id number] Abdomen/Pelvis CT 08/09/24 09:40 IMPRESSION: 1. Redemonstrated [...] 4. Additional description as above. Reading Location: [id number] D/C Instructions DC O2, CPAP, BIPAP Needs [...] PO BID Referrals / Follow Up: Dante Gurrola, [Primary Care Provider] - Disposition Disposition (needs filled in before D/C Order can be placed): Acute Care Hospital Charges/Coding Visit Charges Inpatient E&M: 60751 Disch Hosp >30min 08/09/24 1405 <Electronically signed by Brandie Spears DO> Cosigner Signature (if applicable): CC: Dr. Dante Gurrola MD; Dr. Lebron Francisco MD; Dr. Brandie Spears DO; Betito Avendano DO~ Signed [facility] Work Phone: 1(697) 733-827005-07-2025 Discharge summary [facility] Medical Records Department [address] [place] [address] Discharge Summary 08/09/24 1345 MR#: [id number] Acct: [id number] Name: LIANE GARCIA Rep #:[id number] : 1955 69 From: Brandie Spears DO PCP: Dr. Dante Gurrola MD Status:ADM I N Location: [place] [address] Providers Date of Admission: 08/05/24 Date of Discharge: 08/09/24 Primary Care Physician: Dr. Dante Gurrola DO Consultations 08/05/24 16:19 Consult: Gastroenterology Routine Consulting Provider: [facility] Reason for Consult: GI bleed EMERGENT [...] Hospital Course: Mr. Garcia is a 69-year-old Hoahaoism white male who presented to the emergency department at [facility] on 08/06/2019 2:25 syncopal episodes thathe experienced at home and 1 episode of maroon-colored stools. Patient had beenhaving abdominal discomfort with increasing epigastric pain for several months prior to presentation. He felt it was due to constipation. He had been taking aspirinfor previous blood clots.. He states he had blood clots in [...] aspirin was held. Gastroenterology was consulted fo dora possible EGD. He was taken for EGD [...] discussed with him. Family preferred transfer that [place] [facility] purposes [facility] Zara Spann accepted the patient for transfer after discussing the case with Dr. Bhakta and reviewing the images. He requested transfer to the emergency departmentas he was concerned he would have to take the patient directly to the OR. The patient was transferred in guarded but stable condition to [facility] on 08/09/2024. Antibiotics including ciprofloxacin and [...] habitus and no limitations Constitutional Narrative: Older, Hoahaoism male, lying in bed, family at bedside, [...] 87.4 H, Lymph % (Auto) 5.5 L, [place] % (Auto) 5.4, Eos % (Auto) 0.5, [...] 9:18 am with readback verification. Reading Location: [id number] Abdomen/Pelvis CT 08/09/24 09:40 IMPRESSION: 1. Redemonstrated [...] 4. Additional description as above. Reading Location: [id number] D/C Instructions DC O2, CPAP, BIPAP Needs [...] Attending Provider: Brandie Spears Primary Care Provider: aDnte Gurrola Consulting Providers: Derrick Yadav; Melonie Odell; [...] Care Hospital Charges/Coding Visit Charges Inpatient E&M: 80605 Disch Hosp >30min 08/09/24 1405 Cosigner Signature (if applicable): CC: Dr. Dante Gurrola MD; Dr. Lebron Francisco MD; Dr. Brandie Spears DO; Betito Avendano DO~ Signed [facility]05-07-2025 [facility] Medical Records Department [address] [place] [address] Discharge Summary 08/09/24 1345 MR#: [id number] Acct: [id number] Name: LAINE GARCIA Ned Rep #: [id number] : 1955 69 From: Brandie Spears DO PCP: Dr. Dante Gurrola MD Status:ADM IN Location: [facility] [id number] Providers Date of Admission: 08/05/24 Date of Discharge: 08/09/24 Primary Care Physician: Dr. Dante Gurrola DO Consultations 08/05/24 16:19 Consult: Gastroenterology Routine Consulting Provider: [facility] Reason for Consult: GI bleed EMERGENT [...] Hospital Course: Mr. Garcia is a 69-year-old Hoahaoism white male who presented to the emergency department at [facility] on 08/06/2019 2:25 syncopal episodes that he experienced at home and 1 episode of maroon-colored stools. Patient had been having abdominal discomfort with increasing epigastric pain for several months prior to presentation. He felt it was due to constipation. He had been taking aspirin for previous blood clots.. He states he had blood clots in [...] many oozing cratered duodenal (more content not included)...[facility]05-07-2025 Consult note Author Lebron Francisco [facility] Note Date/Time August 09, 2024 11:36a m [facility] Medical Records Department [address] [place] [address] Consultation - Surgical 08/09/24 1129 MR#: [id number] Acct: [id number] Name: LAINE GARCIA Rep #:[id number] : 1955 69 From: Lebron Francisco MD PCP: Dr. Dante Gurrola MD Status:ADM I N Location: VT3 [id number] Assessment & Plan Assessment/Plan (1) Pulmonary embolism: [...] was treated with course of oral anticoagulation. [facility] Medical History History of DVT (deep [...] 87.4 H, Lymph % (Auto) 5.5 L, [place] % (Auto) 5.4, Eos % (Auto) 0.5, [...] 9:18 am with readback verification. Reading Location: [facility] Abdomen/Pelvis CT 08/09/24 09:40 IMPRESSION: 1. Redemonstrated [...] 4. Additional description as above. Reading Location: [facility] 08/09/24 1136 <Electronically signed by Lebron Francisco MD> Cosigner Signature (if applicable): CC: Dr. Dante Gurrola MD~ Signed [facility] Work Phone: 1(182) 318-775305-07-2025 Consult note [facility] Medical Records Department [address] [place] [address] Consultation - Surgical 08/09/24 1129 MR#: [id number] Acct: [id number] Name: LAINE GARCIA Rep #:[id number] : 1955 69 From: Lebron Francisco MD PCP: Dr. Dante Gurrola MD Status:ADM I N Location: [facility] GS062-7 Assessment & Plan Assessment/Plan (1) Pulmonary embolism: [...] was treated with course of oral anticoagulation. [facility] Medical History History of DVT (deep [...] 87.4 H, Lymph % (Auto) 5.5 L, [place] % (Auto) 5.4, Eos % (Auto) 0.5, [...] 9:18 am with readback verification. Reading Location: [id number] Abdomen/Pelvis CT 08/09/24 09:40 IMPRESSION: 1. Redemonstrated [...] 4. Additional description as above. Reading Location: [facility] 08/09/24 0095 Cosigner Signature (if applicable): CC: Dr. Dante Gurrola MD~ Signed [facility]05-07-2025 Radiology Diagnostic study note [facility] Imaging Services [address] [place] [address] [id number] Abdomen/Pelvis without Cont MR#: [id number] Acct: [id number] Name: LAINE GARCIA Ned Rep #: [id number] : 1955 M 69 From: Leidy Rodrigues MD PCP: Dr. Dante Gurrola MD Status: ADM I N Study:Abdomen/Pelvis without Cont Date of Exa m: 08/09/24 Exam# [id number] Ordering Dr: Lashay Spears DO PROCEDURE: ABDOMEN/PELVIS [...] Lymph nodes: Unremarkable. Vasculature: Mild atherosclerosis. Peritoneum: Fymzx-af-qbromcvp volume ill-defined free fluid and air in [...] 4. Additional description as above. Reading Location: [facility] CC: Dr. Dante Gurrola MD; Dr. Brandie Spears DO ~ Residential Mortgage Underwriter: Signed [facility]05-07-2025 Radiology Diagnostic study note [facility] Imaging Services [address] [place] [address] CTA Chest W/WO Contrast MR#: [id number] Acct: [id number] Name: LAINE GARCIA Rep #: [id number] : 1955 M 69 From: Durga Huang MD PCP: Dr. Dante Gurrola MD Status: ADM I N Study:CTA Chest W/WO Contrast Date of Exam: 08/09/24 Exam# [id number] Ordering Dr: Lashay Spears DO PROCEDURE: CTA [...] 9:18 am with readback verification. Reading Location: [facility] CC: Dr. Dante Gurrola MD; Dr. Brandie Spears DO ~ Residential Mortgage Underwriter: Signed [facility]05-06-2025 Progress note Author Betito Friend [facility] Note Date/Time August 08, 2024 6:24pm [facility] Medical Records Department [address] [place] [address] Progress Note 08/08/24 1821 MR#: [id number] Acct: [id number] Name: LAINE GARCIA Rep #:[id number] : 1955 69 From: Betito Avendano DO PCP: Dr. Dante Gurrola MD Status:ADM I N Location: ICU CVICU20 1- Progress Note Patient is feeling little bit [...] as tolerated tomorrow. Visit Charges Inpatient E&M: 56638 Subs Hosp L3 08/08/240 <Electronically signed by Betito Avendano DO> Betito Avendano DO Cosigner Signature (if applicable): CC: ~ Signed [facility] Work Phone: 1(260) 429-644905-06-2025 Progress note Author Brandie Spears [facility] Note Date/Time August 08, 2024 6:08pm [facility] Medical Records Department [address] [place] [address] Progress Note - Hospitalist 08/08/24 0706 MR#: [id number] Acct: [id number] Name: LAINE GARCIA Rep #:[id number] : 1955 69 From: Brandie Spears DO PCP: Dr. Dante Gurrola MD Status:ADM I N Location: ICU CVICU20 1- Reason for Visit Reason for Visit: [...] 92.7 H, Lymph % (Auto) 2.3 L, [place] % (Auto) 3.9, Eos % (Auto) 0.0, [...] in the abdomen and pelvis. Reading [facility] Physical Exam Const alert, oriented x3, no apparent distress and average body habitus Constitutional Narrative: Older, Hoahaoism male, sitting up in bed, family at [...] Patient is hemodynamically stable will transfer to [facility] Charges/Coding Visit Charges Inpatient E&M: 38461 Subs Hosp L2 08/08/24 6255 <Electronically signed by Brandie Spears DO> Cosigner Signature (if applicable): CC: ~ Signed [facility] Work Phone: 1(346) 296-229105-06-2025 Progress note [facility] Medical Records Department [address] [place] [address] Progress Note 08/08/24 182 MR#: [id number] Acct: [id number] Name: LAINE GARCIA Rep #:[id number] : 1955 69 From: Betito Avendano DO PCP: Dr. Dante Gurrola MD Status:ADM I N Location: ICU CVICU20 04-05 Progress Note Patient is feeling little bit [...] as tolerated tomorrow. Visit Charges Inpatient E&M: 77837 [facility] Hosp L3 08/08/24 6258 Betito Avendano DO Cosigner Signature (if applicable): CC: ~ Signed [facility]05-06-2025 Progress note [facility] Medical Records Department [address] [place] [address] Progress Note - Hospitalist 08/08/24 0706 MR#: [id number] Acct: [id number] Name: LAINE GARCIA Rep #:[id number] : 1955 69 From: Brandie Spears DO PCP: Dr. Dante Gurrola MD Status:ADM I N Location: ICU CVICU20 1- Reason for Visit Reason for Visit: [...] 92.7 H, Lymph % (Auto) 2.3 L, [place] % (Auto) 3.9, Eos % (Auto) 0.0, [...] and average body habitus Constitutional Narrative: Older, Hoahaoism male, sitting up in bed, family at [...] Patient is hemodynamically stable will transfer to [facility] Charges/Coding Visit Charges Inpatient E&M: 41945 Subs Hosp L2 08/08/24 1808 Cosigner Signature (if applicable): CC: ~ Signed [facility]05-06-2025 Progress note Author Melonie Odell [facility] Note Date/Time August 08, 2024 6:09[facility] Medical Records Department [address] [place] [address] Progress Note 08/07/24 1034 MR#: [id number] Acct: [id number] Name: LIANE GARCIA Rep #:[id number] : 1955 69 From: Melonie Odell MD [...] 92.7 H, Lymph % (Auto) 2.3 L, [place] % (Auto) 3.9, Eos % (Auto) 0.0, [...] GI bleed. Charges/Coding Visit Charges Inpatient E&M: 69304 Subs Hosp L2 08/07/24 1629 <Electronically signed by Melonie Odell MD> Melonie [...] an abundance of precaution for closer monitoring. Education Administrator informed and patient transferred to the ICU. 08/08/24 0609 <Electronically signed by Melonie hamilton MD> Date _ Melonie Odell MD Cosigner Signature (if applicable): Date cc: ~* Signed [facility] Work Phone: 1(122) 814-425005-06-2025 Progress note [facility] Medical Records Department [address] [place] [address] Progress Note 08/07/24 1034 MR#: [id number] Acct: [id number] Name: LAINE GARCIA Rep #:[id number] : 1955 69 From: Melonie Odell MD PCP: Dr. Dante Gurrola MD Status:ADM I N Location: ICU CVICU20 - Subjective Subjective Patient seen and examined. His [...] 92.7 H, Lymph % (Auto) 2.3 L, [place] % (Auto) 3.9, Eos % (Auto) 0.0, [...] GI bleed. Charges/Coding Visit Charges Inpatient E&M: 92185 Subs Hosp L2 08/07/24 0176 Melonie Odell MD Cosigner Signature (if applicable): [...] an abundance of precaution for closer monitoring. Education Administrator informed and patient transferred to the ICU. 08/08/24 0609 m > Date _ Melonie Odell MD Cosigner Signature (if applicable): Date cc: ~* Signed [facility]05-05-2025 Consult note Author Artemio Winchester [facility] Note Date/Time August 07, 2024 6:58pm [facility] Medical Records Department [address] [place] [address] Anesthesia Postop Eval II 08/07/241856 MR#: [id number] Acct: [id number] Name: LAINE GARCIA Rep #:[id number] : 1955 69 From: Artemio Winchester MD PCP: Dr. Dante Gurrola MD Status:ADM I N Y Race: C Location: [place] 072935 1 Anesthesia Postop Eval I Sum Postop Eval [...] this time. Complications Anesthesia Complication: No 08/07/24 1604 <Electronically signed by Artemio Winchester MD> Date _ Artemio Winchester MD Cosigner Signature: Date CC: ~ Signed [facility] Work Phone: 1(785) 266-435505-05-2025 Consult note Author Artemio Winchester [facility] Note Date/Time August 07, 2024 6:57pm [facility] Medical Records Department [address] [place] [address] Anesthesia Postop Eval I 08/07/241852 MR#: [id number] Acct: [id number] Name: LAINE GARCIA Rep #:[id number] : 1955 69 From: Artemio Winchester MD PCP: Dr. Dante Gurrola MD Status:ADM I N Y Race: C Location: [place] 072935 -1 Anesthesia: Postop Eval I Current Vital [...] MD Cosigner Signature: Date CC: ~ Signed [facility] Work Phone: 1(113) 819-903305-05-2025 Radiology Diagnostic study note [facility] Imaging Services [address] [place] [address] Abdomen/Pelvis W IV Cont ONLY MR#: [id number] Acct: [id number] Name: LAINE GARCIA Rep #: [id number] : 1955 M 69 From: Tiffanie Olson MD PCP: Dr. Dante Gurrola MD Status: ADM I N Study:Abdomen/Pelvis W IV Cont ONLY Date of E xam: 08/07/24 Exam# [id number] Ordering Dr: Dora Avendano DO PROCEDURE: ABDOMEN/PELVIS W IV CONT [...] the abdomen and pelvis. Reading Location: [facility] CC: Dr. Dante Gurrola MD; Betito Avendano, DO [employer] Residential Mortgage Underwriter: Signed [facility]05-05-2025 Consult note [facility] Medical Records Department [address] [place] [address] Anesthesia Postop Eval II 08/07/24 1857 MR#: [id number] Acct: [id number] Name: LAINE GARCIA Rep #:[id number] : 1955 69 From: Artemio Winchester MD PCP: Dr. Dante Gurrola MD Status:ADM I N Y Race: C Location: [facility] MS315 -1 Anesthesia Postop Eval I Sum [...] at this time. Complications Anesthesia Complication: No 08/07/241857 MD> Date _ Artemio Winchester MD Cosigner Signature: Date CC: ~ Signed [facility]05-05-2025 Consult note [facility] Medical Records Department [address] [place] [address] Anesthesia Postop Eval I 08/07/241852 MR#: [id number] Acct: [id number] Name: LAINE GARCIA Rep #:[id number] : 1955 69 From: Artemio Winchester MD PCP: Dr. Dante Gurrola MD Status:ADM I N Y Race: C Location: [facility] MS5 -1 Anesthesia: Postop Eval I Current Vital [...] Anesthesia document: Postop Eval 1 completed: Yes 08/07/24 185 > Date _ Artemio Winchester MD Cosigner Signature: Date CC: ~ Signed [facility]05-05-2025 Radiology Diagnostic study note [facility] Imaging Services [address] [place] [address] Abdomen Single View MR#: [id number] Acct: [id number] Name: LAINE GARCIA Rep #: [id number] : 1955 M 69 From: Katia Burrell MD PCP: Dr. Dante Gurrola MD Status: ADM I N Study:Abdomen Single View Date of Exam: 08/07/24 Exam# [id number] Ordering Dr: Dora Avendano DO PROCEDURE: ABDOMEN SINGLE VIEW 08/07/2024 [...] Dante Gurrola MD; Betito Avendano DO ~ Residential Mortgage Underwriter: Signed [facility]05-05-2025 Procedure note [facility] Medical Records Department [facility] [place] [address] EGD Report MR#: [id number] Acct: [id number] Name: LAINE GARCIA Rep #:[id number] : 1955 69 From: Betito Avendano DO [...] five hemostatic clips were successfully placed. 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 There was no bleeding at the end of the procedure. Biopsies were taken with a cold forceps for histology. Verification of patient identification for the specimen was done. Estimated blood loss was minimal. Impression: - Normal esophagus. - Normal stomach. - Oozing duodenal ulcers with a visible vessel. Injected. Treated with argon plasma coagulation (APC). Prosthesis placed. Clips were placed. 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 - No specimens collected. Recommendation: - Return patient to ICU for ongoing care. - NPO. - Continue present medications. - Await pathology results. Procedure Code(s): --- Professional --- 63129, Small intestinal endoscopy, enteroscopy beyond second portion of duodenum, not including ileum; with transendoscopic stent placement (includes predilation) 67134, 59, Small intestinal endoscopy, enteroscopy beyond second portion of duodenum, not including ileum; with control of bleeding (eg, injection, bipolar cautery, unipolar cautery, laser, heater probe, stapler, plasma storm sash maker) 98777, 51, Small intestinal endoscopy, enteroscopy beyond second portion of duodenum, not including ileum; with biopsy, single or multiple 99747, 26, Intraluminal dilation of strictures and/or obstructions (eg, esophagus), radiological supervision and interpretation 38592, Unlisted procedure, small intestine CPT copyright 2021 [employer]. All rights reserved. The codes documented in this report are preliminary and upon drywall carrier review may be revised to meet current compliance requirements. Betito Avendano DO 08/07/2024 6:49:08 PM This report has been signed electronically. Number of Addenda: 0 Note Initiated On: 08/07/2024 4:37 PM 08/07/24 1849 Date _ Betito Avendano DO Cosigner Signature: Date (if indicated) CC: Dr. Dante Gurrola MD; Betito Avendano DO ~ Date Dictated: 08/07/24 1637 Date Transcribed: Residential Mortgage Underwriter: LAVON Signed [facility]05-05-2025 Radiology Diagnostic study note [facility] Imaging Services [address] [place], [place] [id number] Abdomen Single View (Portable) MR#: [id number] Acct: [id number] Name: LAINE GARCIA Rep #: [id number] : 1955 M 69 From: Katia Burrell MD PCP: Dr. Dante Gurrola MD Status: ADM I N Study:Abdomen Single View (Portable) Date of Exam: 08/07/24 Exam# [id number] Ordering Dr: Dora Avendano DO PROCEDURE: ABDOMEN SINGLE VIEW (PORTABLE) [...] Dante Gurrola MD; Betito Avendano DO ~ Residential Mortgage Underwriter: Signed [facility]05-05-2025 Progress note Author Betito Avendano [facility] Note Date/Time August 07, 2024 4:41pm [facility] Medical Records Department [address] [place] [address] Progress Note 08/07/24 1639 MR#: [id number] Acct: [id number] Name: LAINE GARCIA Rep #:[id number] : 1955 69 From: Betito Avendano DO PCP: Dr. Dante Gurrola MD Status:ADM I N Location: [place] 072935-1 Progress Note The patient is for an [...] ASA of 3. Visit Charges Inpatient E&M: 45616 Subs Hosp L3 08/07/24 1641 <Electronically signed by Betito Avendano DO> Betito Avendano DO Cosigner Signature (if applicable): CC: ~ Signed [facility] Work Phone: 1(451) 315-960105-05-2025 Consult note Author Artemio Winchester [facility] Note Date/Time August 07, 2024 3:56pm [facility] Medical Records Department [address] [place] [address] Pre-Anesthesia Evaluation 08/07/24 1553 MR#: [id number] Acct: [id number] Name: LAINE GARCIA Ned Rep #:[id number] : 1955 69 From: Artemio Winchester MD PCP: Dr. Dante Gurrola MD Status:ADM I N Y Race: C Location: [place] [address] ASA Classification* ASA Classification ASA Classification: 2 [...] 08/07/24 Hgb 10.3 g/dL (13.0-16.5) L 08/07/24 08:22 5 Hct 30.2 % (40-54) L 08/07/24 [...] Procedure(s): EGD Anesthesia History Anesthesia History - welt insole channeler: Anesthesia History - welt insole channeler Hx Hospitalization No 01/22/20 12:15 Any Problems [...] take am of surgery PONV PONV - welt insole channeler: PONV - welt insole channeler Female HX of Motion Sickness HX of N/V After Surgery Non-Smoker Duration of Surgery greater than 60 minutes Number of Risk Factors PONV Score Height & Weight Height & Weight: Anesthesia: Height & Weight Height 5 ft 10 in 08/07/24 15:16 Weight: 77 kg 08/07/24 15:16 Body Mass Index (BMI) 24.0 08/07/24 14:14 Respiratory Assessment Respiratory Assessment - welt insole channeler: Respiratory Tract Infection Hx - welt insole channeler Hx Respiratory Tract Infection No 08/05/24 16:52 STOP Sleep Apnea STOP Sleep Apnea - welt insole channeler: STOP Sleep Apnea - welt insole channeler Hx Hypertension No 08/05/24 16:27 Hx Sleep [...] Tobacco Use History Tobacco Use History - welt insole channeler: Tobacco Use History - welt insole channeler Tobacco Use Smoking Status Never smoker 08/05/24 16:27 Hx Tobacco Use No 08/05/24 16:27 Years Smoking Packs Smoked per Day Smoking Cessation Date was within the last 15 years Hx Smoking Cessation Date Hx Smoking Cessation Counseling Hematologic Medial History Hematologic Hx - welt insole channeler: Hematologic Medical Hx - cleaning technician Hx of Blood Transfusion No 08/05/24 16:27 [...] confused, unrespo /Reproduction History /Reproductive History - welt insole channeler: /Reproductive Hx- welt insole channeler Hx Now No 08/05/24 16:52 Gestational Age [...] MD Cosigner Signature: Date CC: ~ Signed [facility] Work Phone: 1(415) 277-662705-05-2025 Progress note [facility] Medical Records Department [address] [place] [address] Progress Note 08/07/24 1639 MR#: [id number] Acct: [id number] Name: LAINE GARCIA Rep #:[id number] : 1955 69 From: Betito Avendano DO PCP: Dr. Dante Gurrola MD Status:ADM I N Location: [place] [address] Progress Note The patient is for an [...] ASA of 3. Visit Charges Inpatient E&M: 07193 Subs Hosp L3 08/07/24 1641 Betito Brand Signature (if applicable): CC: ~ Signed [facility]05-05-2025 Consult note [facility] Medical Records Department [address] [place] [address] Pre-Anesthesia Evaluation 08/07/24 1553 MR#: [id number] Acct: [id number] Name: LAINE GARCIA Rep #:[id number] : 1955 69 From: Artemio Winchester MD PCP: Dr. Dante Gurrola MD Status:ADM I N Y Race: C Location: [place] [address]2935 -1 ASA Classification* ASA Classification ASA Classification: [...] 08/07/24 Hgb 10.3 g/dL (13.0-16.5) L 08/07/24 08:22 5 Hct 30.2 % (40-54) L 08/07/24 [...] Procedure(s): EGD Anesthesia History Anesthesia History - welt insole channeler: Anesthesia History - welt insole channeler Hx Hospitalization No 01/22/20 12:15 Any Problems [...] take am of surgery PONV PONV - welt insole channeler: PONV - welt insole channeler Female HX of Motion Sickness HX of N/V After Surgery Non-Smoker Duration of Surgery greater than 60 minutes Number of Risk Factors PONV Score Height & Weight Height & Weight: Anesthesia: Height & Weight Height 5 ft 10 in 08/07/24 15:16 Weight: 77 kg 08/07/24 15:16 Body Mass Index (BMI) 24.0 08/07/24 14:14 Respiratory Assessment Respiratory Assessment - welt insole channeler: Respiratory Tract Infection Hx - welt insole channeler Hx Respiratory Tract Infection No 08/05/24 16:52 STOP Sleep Apnea STOP Sleep Apnea - welt insole channeler: STOP Sleep Apnea - welt insole channeler Hx Hypertension No 08/05/24 16:27 Hx Sleep [...] Tobacco Use History Tobacco Use History - welt insole channeler: Tobacco Use History - welt insole channeler Tobacco Use Smoking Status Never smoker 08/05/24 16:27 Hx Tobacco Use No 08/05/24 16:27 Years Smoking Packs Smoked per Day Smoking Cessation Date was within the last 15 years Hx Smoking Cessation Date Hx Smoking Cessation Counseling Hematologic Medial History Hematologic Hx - welt 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05-04-2025 Progress note Author Melonie [facility] Note Date/Time August 06, 2024 12:59p m [facility] Medical Records Department [address] [place] [address] Progress Note 08/06/24 1246 MR#: [id number] Acct: [id number] Name: LAINE GARCIA Rep #:[id number] : 1955 69 From: Melonie Odell MD PCP: NERI Galaviz Status:AD M IN Location: [facility] [id number] Subjective Subjective Patient seen and examined this [...] 89.3 H, Lymph % (Auto) 6.3 L, [place] % (Auto) 3.2, Eos % (Auto) 0.2, [...] Clarity Clear, Urine pH 5.0, Ur Specific [place] 1.020, Urine Protein 15 H, Urine Glucose [...] 91.7 H, Lymph % (Auto) 3.2 L, [place] % (Auto) 4.3, Eos % (Auto) 0.0, [...] Otherwise unremarkable CT abdomen pelvis. Reading Location: [facility] Physical Exam Const alert, oriented x3 [...] GI bleed. Charges/Coding Visit Charges Inpatient E&M: 07731 Subs Hosp L2 08/06/24 1255 <Electronically signed by Melonie Odell MD> Melonie Odell MD Cosigner Signature (if applicable): CC: ~ Signed [facility] Work Phone: 1(440) 387-134105-04-2025 Progress note [facility] Medical Records Department [address] [place] [address] Progress Note 08/06/24 1246 MR#: [id number] Acct: [id number] Name: LAINE GARCIA Rep #:[id number] : 1955 69 From: Melonie Odell MD PCP: Rachana Birmingham, OIL BURNER-C Status:AD M IN Location: MS3 UR552-3 Subjective Subjective Patient seen and examined this [...] 89.3 H, Lymph % (Auto) 6.3 L, [place] % (Auto) 3.2, Eos % (Auto) 0.2, [...] Clarity Clear, Urine pH 5.0, Ur Specific [place] 1.020, Urine Protein 15 H, Urine Glucose [...] 91.7 H, Lymph % (Auto) 3.2 L, [place] % (Auto) 4.3, Eos % (Auto) 0.0, [...] Otherwise unremarkable CT abdomen pelvis. Reading Location: [facility] Physical Exam Const alert, oriented x3 [...] GI bleed. Charges/Coding Visit Charges Inpatient E&M: 51195 Subs Hosp L2 08/06/24 1259 Melonie Odell MD Cosigner Signature (if applicable): CC: ~ Signed [facility]05-03-2025 Consult note Author Naun Murrell [facility] Note Date/Time August 05, 2024 6:46pm [facility] Medical Records Department [address] [place] [address] Anesthesia Postop Eval II 08/05/241845 MR#: [id number] Acct: [id number] Name: LAINE GARCIA Rep #:[id number] : 1955 69 From: Naun Murrell MD PCP: Rachana Birmingham, OIL BURNER-C Status:AD M IN Y Race: C Location: [address] Anesthesia Postop Eval I Sum Postop Eval [...] MD Cosigner Signature: Date CC: ~ Signed [facility] Work Phone: 1(977) 922-835905-03-2025 Consult note Author Naun Murrell [facility] Note Date/Time August 05, 2024 6:45pm [facility] Medical Records Department [address] [place] [address] Anesthesia Postop Eval I 08/05/241844 MR#: [id number] Acct: [id number] Name: LAINE GARCIA Rep #:[id number] : 1955 69 From: Naun Murrell MD PCP: Rachana Birmingham OIL BURNER-C Status:AD M IN Y Race: C Location: [place] [address] Anesthesia: Postop Eval I Current Vital Signs [...] Naun Ely Signature: Date CC: ~ Signed [facility] Work Phone: 1(138) 393-362205-03-2025 Consult note Author Betito Avendano [facility] Note Date/Time August 05, 2024 5:38pm [facility] Medical Records Department [address] [place] [address] Consultation - GI 08/05/24 1732 MR#: [id number] Acct: [id number] Name: LAINE GARCIA Rep #:[id number] : 1955 69 From: Betito Aevndano DO PCP: Rachana Birmingham, OIL BURNER-C Status:AD M IN Location: [facility] [id number] HPI Consult Data Date of Consult: 08/05/24 [...] represent duodenitis or non perforated duodenal ulcer. [facility] Medical History History of DVT (deep [...] 89.3 H, Lymph % (Auto) 6.3 L, [place] % (Auto) 3.2, Eos % (Auto) 0.2, [...] Clarity Clear, Urine pH 5.0, Ur Specific [place] 1.020, Urine Protein 15 H, Urine Glucose [...] Otherwise unremarkable CT abdomen pelvis. Reading Location: [facility] Assessment & Plan Assessment/Plan (1) Duodenal [...] of 3. Charges/Coding Visit Charges Inpatient E&M: 30010 Init Hosp L3 08/05/24 1738 <Electronically signed by Betito Friend DO> Cosigner Signature (if applicable): CC: NERI Birmingham~ Signed [facility] Work Phone: [phone]) 112-640905-03-2025 Consult note Author Naun Murrell [facility] Note Date/Time August 05, 2024 5:30pm [facility] Medical Records Department [address] [facility] [place] [address] Pre-Anesthesia Evaluation 08/05/24 1730 MR#: [id number] Acct: [id number] Name: LAINE GARCIA Rep #:[id number] : 1955 69 From: Naun Murrell MD PCP: NERI Galaviz Status:AD M IN Y Race: C Location: [place] [address] ASA Classification* ASA Classification ASA Classification: 2 [...] Procedure(s): EGD Anesthesia History Anesthesia History - welt insole channeler: Anesthesia History - welt insole channeler Hx Hospitalization No 01/22/20 12:15 Any Problems [...] take am of surgery PONV PONV - welt insole channeler: PONV - welt insole channeler Female HX of Motion Sickness HX of N/V After Surgery Non-Smoker Duration of Surgery greater than 60 minutes Number of Risk Factors PONV Score Height & Weight Height & Weight: Anesthesia: Height & Weight Height 5 ft 10.87 in 08/05/24 16:56 Weight: 77.8 kg 08/05/24 16:56 Body Mass Index (BMI) 24.0 08/05/24 16:56 Respiratory Assessment Respiratory Assessment - welt insole channeler: Respiratory Tract Infection Hx - welt insole channeler Hx Respiratory Tract Infection No 08/05/24 16:52 STOP Sleep Apnea STOP Sleep Apnea - welt insole channeler: STOP Sleep Apnea - welt insole channeler Hx Hypertension No 08/05/24 16:27 Hx Sleep [...] Tobacco Use History Tobacco Use History - welt insole channeler: Tobacco Use History - welt insole channeler Tobacco Use Smoking Status Never smoker 08/05/24 16:27 Hx Tobacco Use No 08/05/24 16:27 Years Smoking Packs Smoked per Day Smoking Cessation Date was within the last 15 years Hx Smoking Cessation Date Hx Smoking Cessation Counseling Hematologic Medial History Hematologic Hx - welt insole channeler: 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 Work Phone: 1(821) 180-890905-03-2025 Consult note [facility] Medical Records Department [address] [place] [address] Anesthesia Postop Eval II 08/05/24 1846 MR#: [id number] Acct: [id number] Name: LAINE GARCIA Rep #:[id number] : 1955 69 From: Naun Murrell MD PCP: Rachana Birmingham, OIL BURNER-C Status:AD M IN Y Race: C Location: [place] [address] Anesthesia Postop Eval I Sum Postop Eval [...] Level: 0 nausea: No Vomiting: No 08/05/241845 > Date _ Naun Ely Signature: Date CC: ~ Signed [facility]05-03-2025 Consult note [facility] Medical Records Department [facility] [place] [address] Anesthesia Postop Eval I 08/05/241844 MR#: [id number] Acct: [id number] Name: LAINE GARCIA Rep #:[id number] : 1955 69 From: Naun Murrell MD PCP: Rachana Birmingham, OIL BURNER-C Status:AD M IN Y Race: C Location: [place] [address] Anesthesia: Postop Eval I Current Vital Signs [...] document: Postop Eval 1 completed: Yes 08/05/241844 > Date _ Naun Ely Signature: Date CC: ~ Signed [facility]05-03-2025 Procedure note [facility] Medical Records Department [address] [place] [address] EGD Report MR#: [id number] Acct: [id number] Name: LAINE GARCIA Rep #:[id number] : 1955 69 From: Betito Avendano DO [...] on 08/07/2024 Procedure Code(s): --- Professional --- 17302, Small intestinal endoscopy, enteroscopy beyond second portion of duodenum, not including ileum; with ablation of tumor(s), polyp(s), or other lesion(s) not amenable to removal by hot biopsy forceps, bipolar cautery or snare technique 41580, 59,51, Small intestinal endoscopy, enteroscopy beyond second portion of duodenum, not including ileum; with control of bleeding (eg, injection, bipolar cautery, unipolar cautery, laser, heater probe, stapler, plasma storm sash maker) 30954, Unlisted procedure, small intestine CPT copyright 2021 [employer]. All rights reserved. The codes documented in this report are preliminary and upon drywall carrier review may be revised to meet current compliance requirements. Betito Avendano DO 08/05/2024 6:38:47 PM This report has been signed electronically. Number of Addenda: 0 Note Initiated On: 08/05/2024 5:18 PM 08/05/24 1839 Date _ Betito Avendano DO Cosigner Signature: Date (if indicated) CC: NERI Birmingham; Betito Avendano ~ Date Dictated: 08/05/24 1718 Date Transcribed: Residential Mortgage Underwriter: RF Signed [facility]05-03-2025 Procedure note [facility] Medical Records Department [address] [place] [address] Operative Report - CC Letter MR#: [id number] Acct: [id number] Name: LAINE GARCIA Rep #:[id number] : 1955 69 From: Betito Avendano DO PCP: NERI Galaviz Status:AD M IN 08/05/2024 Rachana Birmingham Np Town Planner-c Re : Upper GI endoscopy procedure for Lanie Garcia Dear [place] This procedure was performed [...] Recommendations : - [facility] to [facility] for [facility] care. - NPO except ice chips - Continue present medications. - No NSAIDs - Possible stent placement in the duodenum on 08/07/2024 My findings are described in the full procedure note, which is enclosed. If I can be of further assistance, please feel free to contact me at . Sincerely, Betito FriendDO 08/05/2024 6:38:47 PM This report has been signed electronically. 08/05/241838 Date _ Betito Friend DO Ely Signature: Date (if indicated) CC: OIL BURNER-C Rachana Birmingham; Dr. Derrick Yadav MD ~ Date Dictated: 08/05/24 1718 Date Transcribed: Residential Mortgage Underwriter: RF Signed [facility]05-03-2025 History and physical note Author Derrick Yadav [facility] Note Date/Time August 05, 2024 3:59pm [facility] Medical Records Department [address] [place] [address] H&P Exam - Hospitalist 08/05/24 1543 MR#: [id number] Acct: [id number] Name: LAINE GARCIA Rep #:[id number] : 1955 69 From: Derrick root MD PCP: Rachana Birmingham, TALHA-C Status:AD M IN Location: [facility] RT265-5 HPI - General General Date of Admission: [...] and his vital signs are all stable. [facility] Medical History (Updated 08/05/24 @ 15:52 [...] 89.3 H, Lymph % (Auto) 6.3 L, [place] % (Auto) 3.2, Eos % (Auto) 0.2, [...] Clarity Clear, Urine pH 5.0, Ur Specific [place] 1.020, Urine Protein 15 H, Urine Glucose [...] Otherwise unremarkable CT abdomen pelvis. Reading Location: [facility] Assessment & Plan Assessment/Plan (1) Duodenal [...] with colleagues Charges/Coding Visit Charges Inpatient E&M: 42859 Init Hosp L2 08/05/24 1559 <Electronically signed by Derrick Yadav MD> Cosigner Signature (if applicable): CC: OIL BURNER-C Rachana Birmingham; Dr. Derrick Yadav MD~ Signed [facility] Work Phone: 1(942) 553-339605-03-2025 Consult note [facility] Medical Records Department [address] [place] [address] Consultation - GI 08/05/24 1732 MR#: [id number] Acct: [id number] Name: LAINE GARCIA Rep #:[id number] : 1955 69 From: Betito Friend PCP: NERI Galaviz Status:AD M IN Location: [facility] [id number] HPI Consult Data Date of Consult: 08/05/24 [...] severe. He reports his last colonoscopy was po7368 with a 10 year recall. His repeat today CT/Abdomen/Pelvis W IV Cont ONLY IMPRESSION: 1. Punctate gas within the proximal duodenum with mild duodenal thickening, which is nonspecific and may represent duodenitis or non perforated duodenal ulcer. [facility] Medical History History of DVT (deep [...] 89.3 H, Lymph % (Auto) 6.3 L, [place] % (Auto) 3.2, Eos % (Auto) 0.2, [...] Clarity Clear, Urine pH 5.0, Ur Specific [place] 1.020, Urine Protein 15 H, Urine Glucose [...] Otherwise unremarkable CT abdomen pelvis. Reading Location: [facility] Assessment & Plan Assessment/Plan (1) Duodenal [...] of 3. Charges/Coding Visit Charges Inpatient E&M: 70975 Init Hosp L3 08/05/24 2848 Cosigner Signature (if applicable): CC: NERI Birmingham~ Signed [facility]05-03-2025 Consult note [facility] Medical Records Department [address] [place] [address] Pre-Anesthesia Evaluation 08/05/24 1730 MR#: [id number] Acct: [id number] Name: LAINE GARCIA Rep #:[id number] : 1955 69 From: Naun Murrell MD PCP: Rachana Birmingham, OIL BURNER-C Status:AD M IN Y Race: C Location: [place] [address] ASA Classification* ASA Classification ASA Classification: 2 [...] Procedure(s): EGD Anesthesia History Anesthesia History - welt insole channeler: Anesthesia History - welt insole channeler Hx Hospitalization No 01/22/20 12:15 Any Problems [...] take am of surgery PONV PONV - welt insole channeler: PONV - welt insole channeler Female HX of Motion Sickness HX of N/V After Surgery Non-Smoker Duration of Surgery greater than 60 minutes Number of Risk Factors PONV Score Height & Weight Height & Weight: Anesthesia: Height & Weight Height 5 ft 10.87 in 08/05/24 16:56 Weight: 77.8 kg 08/05/24 16:56 Body Mass Index (BMI) 24.0 08/05/24 16:56 Respiratory Assessment Respiratory Assessment - welt insole channeler: Respiratory Tract Infection Hx - welt insole channeler Hx Respiratory Tract Infection No 08/05/24 16:52 STOP Sleep Apnea STOP Sleep Apnea - welt insole channeler: STOP Sleep Apnea - welt insole channeler Hx Hypertension No 08/05/24 16:27 Hx Sleep [...] Tobacco Use History Tobacco Use History - welt insole channeler: Tobacco Use History - welt insole channeler Tobacco Use Smoking Status Never smoker 08/05/24 16:27 Hx Tobacco Use No 08/05/24 16:27 Years Smoking Packs Smoked per Day Smoking Cessation Date was within the last 15 years Hx Smoking Cessation Date Hx Smoking Cessation Counseling Hematologic Medial History Hematologic Hx - welt insole channeler: 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05-03-2025 Discharge summary Author Wally Valdez [facility] Note Date/Time August 05, 2024 3:30pm [facility] Medical Records Department [address] [place] [address] Emergency Department Summary 08/05/24 MR#: [id number] Acct: [id number] Name: LAINE GARCIA Rep #:[id number] : 1955 69 From: Wally Valdez MD PCP: Rachana Birmingham, OIL BURNER-C Status:RE G ER Location: ED HPI History [...] has had syncope in the past. [facility] Home Medications ?Medication ?Instructions ?Recorded ?Last Taken [...] 89.3 H Lymph % (Auto) 6.3 L [place] % (Auto) 3.2 Eos % (Auto) 0.2 [...] Clarity Clear Urine pH 5.0 Ur Specific [place] 1.020 Urine Protein 15 H Urine Glucose [...] Otherwise unremarkable CT abdomen pelvis. Reading Location: [facility] Discharge Plan Dx/Rx/DC Orders Clinical Impression: Syncope, Orthostatic hypotension, Abdominal pain, Duodenal ulcer Disposition Disposition: Acute Care Hospital [facility] What to do if you have Problems For any increased pain, shortness of breath, bleeding, nausea or vomiting, chestpain, or any unexpected problems, contact your Primary Care Provider. Call [facility] ([phone]) or report to the closest Emergency Room. Call 911 if necessary. 08/05/24 1530 <Electronically signed by Wally Valdez MD> Cosigner Signature (if applicable): CC: NERI Birmingham ~ Signed [facility] Work Phone: 1(241) 344-650205-03-2025 History and physical note [facility] Medical Records Department [address] [place] [address] H&P Exam - Hospitalist 08/05/24 1543 MR#: [id number] Acct: [id number] Name: LAINE GARCIA Rep #:[id number] : 1955 69 From: Derrick root MD PCP: NERI Galaviz Status:AD M IN Location: MS3 [id number] HPI - General General Date of Admission: [...] and his vital signs are all stable. [facility] Medical History (Updated 08/05/24 @ 15:[address] Derrick Yadav MD) Mitral valve prolapse History of DVT (deep vein thrombosis) Home Medications ?Medication ?Instructions ?Recorded ?Last Taken ?Type aspirin 81 mg chewable tablet 81 mg PO DAILY heart hea h 01/22/20 08/05/24 History multivitamin 1 tab PO [...] Std Deviation 47.8 H, RDW Coeff of Enda 14.4, Plt Count 281,MPV 9.7, Immature Gran % (Auto) 0.700, Neut % (Auto) 89.3 H, Lymph % (Auto) 6.3 L, [place] % (Auto) 3.2, Eos % (Auto) 0.2, [...] Clarity Clear, Urine pH 5.0, Ur Specific [place] 1.020, Urine Protein 15 H, Urine Glucose [...] Otherwise unremarkable CT abdomen pelvis. Reading Location: [facility] Assessment & Plan Assessment/Plan (1) Duodenal [...] with colleagues Charges/Coding Visit Charges Inpatient E&M: 03384 Init Hosp L2 08/05/24 1559 Cosigner Signature (if applicable): CC: NERI Birmingham; Dr. Derrick Yadav MD~ Signed [facility]05-03-2025 Discharge summary [facility] Medical Records Department [address] [place] [address] Emergency Department Summary 08/05/24 MR#: [id number] Acct: [id number] Name: LAINE GARCIA Rep #:[id number] : 1955 69 From: Wally Valdez MD PCP: Rachana Birmingham, TALHA-C Status:RE G ER Location: ED HPI History [...] 89.3 H Lymph % (Auto) 6.3 L [place] % (Auto) 3.2 Eos % (Auto) 0.2 [...] Clarity Clear Urine pH 5.0 Ur Specific [place] 1.020 Urine Protein 15 H Urine Glucose [...] Otherwise unremarkable CT abdomen pelvis. Reading Location: [facility] Discharge Plan Dx/Rx/DC Orders Clinical Impression: Syncope, Orthostatic hypotension, Abdominal pain, Duodenal ulcer Disposition Disposition: Acute Care Hospital [facility] What to do if you have Problems For any increased pain, shortness of breath, bleeding, nausea or vomiting, chestpain, or any unexpected problems, contact your Primary Care Provider. Call [facility] ([phone]) or report tothe closest Emergency Room. Call 911 if necessary. 08/05/24 1530 Cosigner Signature (if applicable): CC: OIL BURNER-C Rachana Birmingham ~ Signed [facility]05-03-2025 Radiology Diagnostic study note [facility] Imaging Services [address] [place] [address] Abdomen/Pelvis W IV Cont ONLY MR#: [id number] Acct: [id number] Name: LAINE GARCIA Rep #: [id number] : 1955 M 69 From: Alis Betts MD PCP: Rachana Birmingham OIL BURNERRodrigoC Status: RE G ER Study:Abdomen/Pelvis W IV Cont ONLY Date of E xam: 08/05/24 Exam# [id number] Ordering Dr: Wally Valdez MD PROCEDURE: ABDOMEN/PELVIS [...] Otherwise unremarkable CT abdomen pelvis. Reading Location: [facility] CC: NERI Birmingham; Dr. Wally Valdez MD ~ Residential Mortgage Underwriter: Signed [facility]04-22-2025 Evaluation note* Diagnosis Onset Date Resolution Status Admit Date Constipation acute July 25, 2024 8:51am Abdominal pain acute August 05 2 025 3:43pm Acute anemia acute August 05 3:43pm Duodenal ulcer acute August 05 2 025 3:43pm Leukocytosis acute August 05 3:43pm Orthostatic hypotension acute 2024 3:43pm Pulmonary embolism acute August 3:43pm Syncope acute August 05, 2024 3:43pm Upper GI bleed acute August 05 2 025 3:43pm [facility] Work Phone: 1(202) 408-770104-22-2025 Evaluation note* Diagnosis Onset Date Resolution Status Admit Date Constipation acute July 25, 2024 8:51am Abdominal pain acute August 05 2 025 3:43pm Acute anemia acute August 05 3:43pm Duodenal ulcer acute August 05, 2 025 3:43pm Leukocytosis acute August 05 3:43pm Pulmonary embolism acute August 3:43pm Upper GI bleed acute August 05, 2 025 3:43pm Orthostatic hypotension resolved M ay 2024 3:43pm Syncope resolved August 05, 2024 3:43pm [facility] Work Phone: 1(818) 557-273004-22-2025 Evaluation note* Diagnosis Onset Date Resolution Status [...] 9:03am Pulmonary embolism acute August 222024 9:03am [facility] Work Phone: 1(321) 233-997504-22-2025 Evaluation note* Diagnosis Onset Date Resolution Status [...] 9:03am Pulmonary embolism acute August 222024 9:03am DVT (deep venous thrombosis) acute September 01, 2024 3:17pm Pulmonary embolism acute September 012024 3:17pm S/P IVC filter acute September 01, 2024 3:17pm [facility] Work Phone: 1(140) 985-200604-22-2025 Evaluation note* Diagnosis Onset Date Resolution Status Admit Date Constipation acute July 25, 2024 8:51am Abdominal pain acute August 05, 2 025 3:43pm Acute anemia acute August 05 3:43pm Duodenal ulcer acute August 05, 2 025 3:43pm Leukocytosis acute August 05 3:43pm Pulmonary embolism acute August 3:43pm Upper GI bleed acute August 05, 2 025 3:43pm Orthostatic hypotension resolved 2024 3:43pm Syncope resolved August 05, 2024 3:43pm Abdominal pain acute August 22, 2024 9:03am Duodenal ulcer acute August 22, 2024 9:03am Pulmonary embolism acute August 222024 9:03am DVT (deep venous thrombosis) acute September 01, 2024 3:17pm Pulmonary embolism acute September 012024 3:17pm S/P IVC filter acute September 01, 2024 3:17pm Abdominal pain acute November 7:27am Duodenal ulcer acute November 7:27am Pulmonary embolism acute November 21, 2024 7:27am [facility] Work Phone: 1(147) 869-143003-30-2023 Note. MICRO - Microbiology PROCEDURE: Blood Culture [...] Locations *1: This test was performed at: [facility], [address] [place] [address], [id number]- , [place]07-02-2022 Note. MICRO - Microbiology PROCEDURE: Blood Culture [...] Locations *1: This test was performed at: [address], [facility] , [place] [facility] [place]06-29-2022 [facility] REPORT NAME ACCOUNT SEX AGE ADMIT DISCHARGE PT MED. 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 RECOMMENDATIONS: No acute general surgery concerns at this time. I recommended general medicine and/or nephrology consult for further evaluation and treatment. All questions were answered. The patient was understanding and in agreement with the plan. Dictated By: Velasquez Hankins MD 06/27/2022 09:35 JOB #: [id number] Transcribed By: felipe 06/27/2022 10:01 Electronically signed by: E-SIGN DR. HANKINS 06/29/22 11:47 Page 2 of 2 LAINE GARCIA Mud Mixer [facility] Author Damien Santiago [facility] Note Date/Time January 01, 2025 7:35am [facility] Medical Records Department [address] [place] [address] Anesthesia Postop Eval I 01/01/25 0731 MR#: [id number] Acct: [id number] Name: LAINE GARCIA Rep #:[id number] : 1955 69 From: Damien Santiago PCP: Dr. Dante Gurrola MD Status:REG S DC Y Race: C Location: [place] [address] Anesthesia: Postop Eval I Current Vital Signs Temperature: 97.4 F Pulse Rate: 47 Blood Pressure: 113/56 Respiratory Rate: 16 Pulse Ox: 100 Oxygen Delivery Method: Room Air Assessment Airway patent: Yes Spontaneous unlabored respirations: Yes Mental status: Asleep nausea: No Vomiting: No Anesthesia Complication: No Fluid Hydration Crystalloid volume administer (ml): 700 Total IV fluid infused: 700 Progress Note Anesthesia document: Postop Eval 1 completed: Yes 01/01/25734 <Electronically signed by Damien Santiago > Date _ Damien Navarreteigner Signature: Date CC: ~ Signed [facility] Work Phone: Consult note Author Driss Payne [facility] Note Date/Time January 01, 2025 8:58am [facility] Medical Records Department [address] [place] [address] Anesthesia Postop Eval II 01/01/2543 MR#: [id number] Acct: [id number] Name: LAINE GARCIA Rep #:[id number] : 1955 69 From: Driss Marino PCP: Dr. Dante Gurrola MD Status:REG S DC Y Race: C Location: [place] [address] Anesthesia Postop Eval I Sum Postop Eval Completion status Anesthesia document: Postop Eval 1 completed: Yes Anesthesia Postop Eval I Summary Anesthesia Postop Eval I Summary: Anesthesia Postop Eval I: Assessment Summary Airway patent Yes 01/01/25 07:35 [email or web address] Spontaneous unlabored Yes 01/01/25 07:35 [email or web address] respirations Mental status Asleep 01/01/25 07:35 [email or web address] nausea No 01/01/25 07:35 [email or web address] Vomiting No 01/01/25 07:35 [email or web address] Anesthesia Postop Eval I: Fluid Summary Crystalloid volume administer 700 01/01/25 07:35 [email or web address] (ml) Colloids volume administered ( ml) Blood Product volume administered (ml) Total IV fluid infused 700 01/01/25 07:35 [email or web address] Anesthesia Postop Eval I: Summary Notes Anesthesia Complication No 01/01/25 07:35 [email or web address] Anesthesia Complication Comment: Post-operative progress note Anesthesia: Postop Eval II Evaluation Mental status: Awake Pain Level: 0 nausea: No Vomiting: No Complications Anesthesia Complication: No 01/01/25 0743 <Electronically signed by Driss Payne MD> Date _ Driss Payne MD Cosigner Signature: Date CC: ~ Signed [facility] Work Phone: Discharge summary Author Sy Urena [facility] Note Date/Time September 09, 2024 9:09a m [facility] Medical Records Department [address] [place] [address] Emergency Department Summary 09/09/24 MR#: [id number] Acct: [id number] Name: LAINE GARCIA Rep #:[id number] : 1955 69 From: Sy Urena MD PCP: Dr. Dante Gurrola MD Status:REG E R Location: ED HPI History of Present Illness Chief Complaint: Alt LOC Detail of Chief Complaint: GI bleed, hypotension and altered mental status Informant: patient, spouse/S.O. and family Onset/Context/Timing Onset: Today Context: Sudden Onset Timing: Intermittent Quality: Vomiting blood. On apixaban for DVT Location: Upper GI bleed Current Severity: Severe Maximum Severity: Severe Worsened by: Took apixaban yesterday Relieved by: Nothing Associated Symptoms Associated Symptoms: abdominal pain, chest pain, chills, cough, fever, vomiting,diarrhea, palpitations, suicidal thoughts and other Narrative Narrative: Patient is a 69-year-old male. He has history of peptic ulcer disease with apparent perforation that was repaired laparoscopically by Dr. Zara Spann at [facility]. He was seen by GI. Apparently the stent that was placed by Dr. Avendano had migrated and there was thought of removing it. They did not remove it since he took a dose of apixaban. Cording to family he did not take apixaban or Wednesday morning. He did take a dose last evening. He is onapixaban because he was recently diagnosed with DVT. Reviewing Dr. Avendano's office note from August 22 indicates patient had recent pulmonary embolus subsegmental. Without acute cor pulmonale. Procedure note performed by Dr. Avendano on August 07 was reviewed. Patient was noted to have normalesophagus and normal stomach. Oozing was noted from multiple duodenal ulcers with visible vessels noted. These were injected and treated with argon plasma coagulation (APC). Prosthesis placed and clips were placed. Patient also had small intestinal endoscopy and enteroscopy beyond second portion of the duodenumnot including the ileum with trans endoscopic stent placement including predilatation. Patient has been up at [facility]. Apparently after multiple CAT scansthey determined that he had a perforation in the posterior wall of his stomach that was adherent to his liver. He had laparoscopic surgery by Dr. Zara Spann. He also was found to have a DVT. He is presently on apixaban. This morning every time patient attempted to stand he had near syncope versus 1 episode of syncope. He has vomited blood per family. There was noted to be blood on his bedoya. There was discussion regarding NG because he did not tolerate it well last time. Explained to the patient and family that NG was placed as he was actively bleeding 1 to determine if we need to reverse his apixaban. At that time I was informed that he only has taken 1 dose in the last48 hours and that was last evening. He did not take his dose this morning. Andto determine if he is stable to stay here or require transfer back to [facility]. Prior similar symptoms: Yes Recent Illness/Hospitalization: Yes [facility] Medical History History of DVT (deep vein thrombosis) Mitral valve prolapse unable to obtain (Documented in the HPI narrative.) Home Medications ?Medication ?Instructions ?Recorded ?Last Taken ?Type multivitamin 1 tab PO DAILY supplement 08/05/24 History omega-3 fatty acids 1,000 mg 2,000 mg PO BID supplemen t 01/22/20 08/05/24 Hi story capsule apixaban 5 mg tablet (Eliquis) 5 mg PO BID 09/01/24 Un known History oxycodone-acetaminophen 5 mg-325 1 tab PO Q6H PRN pain 09/09/24 Unknown History mg tablet (Percocet) Allergy/AdvReac Type Severity Reaction Status Date / Time Penicillins AdvReac PT UNABLE Verified 09/09/24 06:30 TO RESPOND-NEEDS F/U Family History Father Myocardial infarction Mother CVA (cerebral vascular accident) Surgical History H/O shoulder surgery History of repair of hiatal hernia Social History Smoking Status: Never smoker alcohol intake: never ROS ROS ED Constitutional Constitutional ED: Denies chills, fever(s), subjective, sweats or weight loss Eyes Eyes: Denies blurry vision or change in vision ENT ENT ED: Denies ear pain or rhinorrhea Cardiovascular Cardiovascular: Denies chest pain, orthopnea, palpitations or paroxysmal nocturnal dyspnea Respiratory/Chest Respiratory/Chest: Denies cough, dyspnea, dyspnea on exertion, orthopnea or paroxysmal nocturnal dyspnea Gastrointestinal Gastrointestinal: Reports nausea, vomiting and other Details: Patient not had a bowel movement in 2 days. ; Denies abdominal pain Genitourinary Genitourinary ED: Denies dysuria, hematuria or urinary frequency Musculoskeletal Musculoskeletal: Denies arthralgias or myalgias Integumentary Denies abscess or rash Neurologic Neurologic: Denies headache(s), paresthesias or weakness Psychiatric Psychiatric: Denies anxiety or depression Endocrine Endocrinology: Denies polydipsia, polyphagia or polyuria Hematologic/Lymphatic Hematologic/Lymphatic: Reports easy bleeding and easy bruising EXAM Physical Exam Const Vital Signs: 09/09/24 06:30 09/09/24 07:34 09/09/24 08:00 Temperature 97.5 F L Temperature Source Oral Pulse Rate 68 73 62 Respiratory Rate 20 H 16 16 Blood Pressure 112/65 125/73 H 113/70 Blood Pressure Mean 80 90 84 Blood Pressure Source Blood Pressure Position Blood Pressure Location Pulse Ox 99 95 100 Oxygen Delivery Method Nasal Cannula Nasal Cannula Oxygen Flow Rate (L/min) 2 2 09/09/24 08:01 09/09/24 08:38 Temperature 97.7 F L 97.7 F L Temperature Source Temporal Temporal Pulse Rate 74 72 Respiratory Rate 17 17 Blood Pressure 113/70 127/72 H Blood Pressure Mean 84 90 Blood Pressure Source Monitor Blood Pressure Position Semi-Fowlers Blood Pressure Location Left Arm Pulse Ox 100 100 Oxygen Delivery Method Room Air Nasal Cannula Oxygen Flow Rate (L/min) 1.5 Positive well nourished and well developed Constitutional Narrative: Patient appears pale. Blood pressure after liter of fluids has improved. He was hypotensive per paramedics. Patient's blood pressure has been trending downsince he has been here. General Appearance ED: well developed and pallor HEENT normocephalic and atraumatic Eyes PERRL and EOMs intact bilaterally General Eye ED: Yes pale conjunctiva; Negative for scleral icterus Neck full ROM, no lymphadenopathy, supple and no JVD Resp Resp Narrative: Lungs are clear to auscultation. Breath sounds were noted bilaterally. Cardio regular rate, regular rhythm, S1 normal heart sound, S2 normal heart sound and no murmurs GI non-tender, non-distended and no masses GI Narrative: Patient had episode of vomiting prior to placement of NG and it is a dark red consistent with acute GI bleed. Auscultation: normoactive bowel sounds Palpation: soft Back/Spine no CVA tenderness Neuro oriented x3 and CN's II-XII intact bilaterally Neuro Narrative: According to family and he was not very responsive at home presume this is due to poor perfusion. Sensory Exam: sensory level loss detected Psych mental status grossly normal Skin General Skin Exam: jaundice and pallor Lesions: no lesions Rashes: no rashes MDM MDM MDM Narrative Medical decision making narrative: In light of patient's complicated past history and reported vomiting of blood and the fact that he is on anticoagulant NG was ordered to see if he still actively bleeding. He was typed and screened. NG was not placed because he vomited and there is evidence that he is still actively bleeding. Patient did receive a liter of normal saline. He was typed and screened. EKG was obtained to evaluate for cardiac ischemia. BMP was obtained assess electrolytes CO2 anion gap. Lactate to assess if patient has poor perfusion which clinically he does and would support that he has hemorrhagic shock due to his GI bleed. Dr. Avendano was paged. In light of patient's complex history the fact that he had recent procedures at [facility] with a perforated ulcer that was repaired surgically recommended transfer back to [facility]. In light of this we will have adoption services manager contact [facility] and arrange for urgent transfer. In light of patient's recent diagnosis of multi segmental PE and DVT if he remains hemodynamically stable will not reverse his anticoagulant. If he becomes unstable will reverse. Furthermore if he develops maroon or bright red blood per rectum which would indicate a massive GI bleed he will be reversed. 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 Lab Data Attestation: I reviewed the patient's lab results. Lab results narrative: H&H is 6.6 and 20.8. Platelet count is 217,000. CBC is unremarkable otherwise. Basic metabolic panel visit elevated BUN/creatinine ratio of 33:1. Glucose is elevated 177 with a normal CO2 anion gap. Lactate was normal at 1.7. Labs: Laboratory Results - last 24 hr 09/09/24 07:18 WBC 10.6 RBC 2.27 L Hgb 6.6 L Hct 20.8 L MCV 91.6 MCH 29.1 MCHC 31.7 L RDW Std Deviation 51.1 H RDW Coeff of Edna 15.5 H Plt Count 217 MPV 9.5 Immature Gran % (Auto) 0.600 Neut % (Auto) 87.0 H Lymph % (Auto) 6.9 L [place] % (Auto) 3.8 Eos % (Auto) 1.6 Baso % (Auto) 0.1 Absolute Neuts (auto) 9.2 H Absolute Lymphs (auto) 0.73 L Nucleated RBC % 0 Sodium 141 Potassium 4.6 Chloride 108 Carbon Dioxide 25.7 Anion Gap 7 BUN 24 H Creatinine 0.72 Estim Creat Clear Calc 88.72 Est GFR (MDRD) Non-Af 98 BUN/Creatinine Ratio 32.8 H Glucose 177 H Lactic Acid 1.7 Calcium 7.4 L Blood Type O POSITIVE Antibody Screen NEGATIVE Crossmatch See Detail Patient received 1 unit of trauma blood. Radiography Diagnostic Testing: CTA was not read prior to patient's transfer via helicopter to [facility]. EKG Initial EKG: Attestation: I personally reviewed and interpreted this EKG as follows: Interpretation: Sinus Rhythm (Rate is 64. He has sinus arrhythmia. Parables 134 ms. QS duration 88 ms. QT duration 436 ms. [place] is normal. In my opinion the EKG is normal) Treatment and Re-Evaluation Narrative: Physicians was contacted. The informed the charge nurse that it would be minimum of 3 hours before transport. In light of patient's critical condition he will be flown. [facility] is contacting helicopter service. Critical Care Time Critical Care Time: Yes Critical care time (excluding procedures): 30-74 minutes (37), Including time spent: (History, physical, documentation, review of prior records and labs, independent rotation of laboratory results, treatment for upper GI bleed), Discussing w/Patient &/or Family/Resolution Specialist ( and daughter and patient), Discussing w/Consultants (ICU attending at [facility]. He requested a CT AP with images sent to [facility]. He will talk with the surgical ICU attending. Patient is made aware as well as family.) and Arranging Admission or Transfer (Back ED transfer nurse for [facility]) Discharge Plan Triage Chief Complaint: Alt LOC ED Provider: Sy Urena Dx/Rx/DC Orders Clinical Impression: Acute upper gastrointestinal bleeding, Signs and symptoms of anemia, Symptomatic anemia, Anemia due to acute blood loss, Orthostatic hypotension, Anticoagulant long-term use, Pulmonary embolism, DVT (deep venous thrombosis), S/P IVC filter Prescriptions: No Action Eliquis 5 mg tablet 5 mg PO BID multivitamin 1 EACH tablet 1 tab PO DAILY omega-3 fatty acids 1,000 MG capsule 2,000 mg PO BID oxycodone-acetaminophen [Percocet] 5-325 mg tablet 1 tab PO Q6H PRN (Reason: pain) Primary Care Provider: Dante Gurrola Referrals: Dante Gurrola DO [Primary Care Provider] - Print Language: Cymraes Disposition Disposition: Acute Care Hospital Discharge Location: [facility] What to do if you have Problems For any increased pain, shortness of breath, bleeding, nausea or vomiting, chestpain, or any unexpected problems, contact your Primary Care Provider. Call [facility] ([phone]) or report to the closest Emergency Room. Call 911 if necessary. 09/09/24 0983 <Electronically signed by Sy Urena MD> Cosigner Signature (if applicable): CC: Dr. Dante Gurrola MD ~ Signed [facility] Work Phone: Evaluation note* Diagnosis Duodenal perforation (CMS/HCC) (HCC)- Primary Other specified disorder of stomach and duodenum Duodenal perforation (CMS/HCC) (HCC) Other specified disorder of stomach and duodenum Duodenal ulceration Duodenal ulcer, unspecified as acute or chronic, without hemorrhage, perforation, or obstruction Pneumoperitoneum Other specified disorder of peritoneum Malnutrition (CMS/HCC) (HCC) Unspecified protein-calorie malnutrition Severe malnutrition (CMS/HCC) (HCC) Nutritional marasmus [facility]* Diagnosis Encounter for postoperative care- Primary documented in this encounter [facility]* Diagnosis Abdominal pain, unspecified abdominal location- Primary documented in this encounter [facility]* Diagnosis Hematemesis- Primary Hematemesis Duodenal ulceration Duodenal ulcer, unspecified as acute or chronic, without hemorrhage, perforation, or obstruction Duodenal perforation (CMS/HCC) (HCC) Other specified disorder of stomach and duodenum Duodenal ulceration Duodenal ulcer, unspecified as acute or chronic, without hemorrhage, perforation, or obstruction documented in [facility] encounter [facility]* Diagnosis Pneumoperitoneum- Primary Other specified disorder of peritoneum Duodenal ulceration Duodenal ulcer, unspecified as acute or chronic, without hemorrhage, perforation, or obstruction documented in this encounter [facility] Dis[facility]* Attachments The following attachments cannot be sent through Care Everywhere. * Severe Abdominal Pain (Cymraes) [facility] HealthProgress note Author Betito Friend [facility] Note Date/Time August 09, 2024 5:19pm [facility] Medical Records Department [address] [place] [id number] Progress Note 08/09/24 1717 MR#: [id number] Acct: [id number] Name: LAINE GARCIA Ned Rep #:[id number] : 1955 69 From: Betito Avendano DO PCP: Dr. Dante Gurrola MD Status:ADM I N Location: [place] [address] Progress Note Patient was seen by hospitalist [...] at this institution. Visit Charges Inpatient E&M: 73929 Subs Hosp L3 08/09/24 8930 <Electronically signed by Betito Avendano DO> Betito Avendano DO Cosigner Signature (if applicable): CC: ~ Signed [facility] Work Phone: Progress note Author Betito Avendano [facility] Note Date/Time November 21, 2024 8: 11am [facility] [address] [place] [address] OFFICE VISIT Date of Service: 11/21/24 MR#: [id number] Acct: [id number] Name: LAINE GARCIA Rep #: [id number] : 1955 Provider: Betito Avendano DO Age/Sex: 69/M [place] [facility] [place]: Signed Intake Vital Signs 09/09/24 06:30 Height 5 ft 10 in Intake Visit Reasons: Consultation for upper/lower scope Salt Maker Required: No Accompanied by: and Daughter Allergies Penicillins Adverse Reaction (Verified 09/09/24 06:30) PT UNABLE TO RESPOND-NEEDS F/U Medications ?Medication ?Instructions ?Recorded ?Confirmed ?Type multivitamin 1 tab PO DAILY supplement 11/21/24 History omega-3 fatty acids 1,000 mg 2,000 mg PO BID supplemen t 01/22/20 11/21/24 History capsule sucralfate 1 gram tablet 1 g PO QACHS 11/21/24 History Have you fallen in the past year?: No PFSH Medical History History of DVT (deep vein thrombosis) Mitral valve prolapse Surgical History H/O shoulder surgery History of repair of hiatal hernia Family History Father Myocardial infarction Mother CVA (cerebral vascular accident) Social History Smoking Status: Never smoker alcohol intake: never HPI HPI Details: LAINE GARCIA, is a 69 M who presents to the office today for follow up. abd/pelvis CT 2.04.29 1. Right renal cyst. 2. Left paravertebral cysts. 3. Left hepatic lobe cyst. 4. Other nonacute findings detailed above. [facility] hospitalization 08.05.24 - 5 abd pain - consulted for GI bleed abd/pelvis CT 5.06.27 1. Punctate gas within the proximal duodenum with mild duodenal thickening, which is nonspecific and may represent duodenitis or non perforated duodenal ulcer. 2. Otherwise unremarkable CT abdomen pelvis. EGD 08.05.24 Normal esophagus. No gross lesions in the entire stomach. Spurting duodenal ulcers with a visible vessel. Injected. Treated with argon plasma coagulation (APC). Non-bleeding duodenal ulcers with no stigmata of bleeding. Treated with argon plasma coagulation (APC). No specimens collected. EGD 08.07.24 Normal esophagus. Normal stomach. Oozing duodenal ulcers with a visible vessel. Injected. Treated with argon plasma coagulation (APC). Prosthesis placed. Clips were placed. 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 abd/pelvis CT 08.07.24 Interval placement gastroduodenal stent, since prior. No pneumoperitoneum. Otherwise, no acute findings in the abdomen and pelvis. abd/pelvis CT 08.09.24 1. Redemonstrated small to moderate volume ill-defined free fluid and air in the perisplenic/subdiaphragmatic region, suggesting perforated viscus, presumably related to [...] Refer to recent CTA chest report for intrathoracicfindings. 4. Additional description as above. Had surgical procedure at [facility] OV 5 pt reports that he is feeling better since hospitalization and since having procedure to fix hole in abdomen. Pt reports continued gas and bloatingdiscomfort, but reports that this is improving. Reports that bm are returning tonormal and has not had blood in stool. [facility] ED 09.09.24 Alt LOC - GI bleed, hypotension, and alt mental status - was transferred to [facility] had two EGDs and was discharged 09.15.24 abd/pelvis CTA 09.09.24 1. No evidence of acute contrast extravasation, to suggest gastrointestinal bleed. 2. No evidence of acute aortic dissection, thrombosis or pseudoaneurysm formation. 3. Interval migration previously noted gastroduodenal stent, now within the distal transverse colon of the splenic flexure. 4. Other findings as described above. OV 8.19.25 pt reports that he is feeling better since hospitalization, has some ongoing left sided abdominal discomfort. Pt reports that he is just here to follow up from his hopsital visit. ROS Const Constitutional: No fatigue, fever(s) or weight change ENT ENT: No difficulty swallowing Gastro GI: Positive for abdominal pain, bloating, change in bowel habits, constipation,diarrhea and excessive flatus; No belching, change in stool character, coffee ground emesis, cramping, heartburn, difficulty swallowing, feeling full early, incontinent of stools, Vomiting blood/hematemesis, Blood in stool, loose stools, Black,tarry stools, nausea/dyspepsia, pain with swallowing, vomiting or other Musc Musculoskeletal: No joint pain Skin Skin: No yellowing of the eye or itchy eyes Psych Psychiatric: No anxiety and No depression Endo Endocrine: No fatigue or weight change Aller/Imm Allergy/Immunologic: No itchy eyes Herson/Lymp Hematologic/Lymphatic: No easy bleeding or easy bruising Exam Const General: cooperative, healthy appearing, comfortable and no acute distress Nutritional Appearance: average body habitus Orientation: alert and oriented x3 HENMT Head: normal to inspection Ears: hearing grossly normal bilaterally Nose: external nose normal Face and sinus: normal facial exam and face symmetric Mouth: oral mucosae normal Eyes General: appearance normal, both eyes and all related structures Sclera: sclerae normal Neck Neck: normal visual inspection and full ROM Chest Chest palpation & inspection: normal inspection of the chest Resp Effort & Inspection: normal respiratory effort, able to speak in complete sentences and symmetric chest movement GI Inspection: distended Auscultation: high-pitched sounds Palpation: firm and nontender Skin Rashes: rashes noted Neuro General: patient alert, patient oriented x3 and moves all extremities Cognition: normal cognition Speech: speech normal Gait: normal gait Extrem General: full ROM Psych Appearance: grossly normal Mental Status: mental status grossly normal Mood: congruent mood Affect: normal affect Speech and Movement: speech and movement normal Attitude: cooperative Thought Process: normal Judgment: judgment good Assessment and Plan Assessment and Plan (1) Pulmonary embolism: Status: Acute Qualifiers: Pulmonary embolism type: multiple subsegmental (without acute cor pulmonale) Qualified Code(s): I26.94 - Multiple subsegmental thrombotic pulmonary emboli without acute cor pulmonale (2) Duodenal ulcer: Status: Acute Plan: 69-year-old gentleman with Acute on chronic anemia [...] is 9.8. He underwent repeat upper endoscopy . And had his duodenal ulcer treated again [...] of gas without any signs of pneumoperitoneum. * Patient will be transferred to higher level of care for as it is assumed that he has air underneath the diaphragm secondary to worsening duodenal ulcer. This is recommended by general surgery as he may need a more advanced procedure than we can provide at this institution. * He underwent evaluation at outside institution. He ended up having laparoscopic oversewn duodenal perforation repair. From the surgery his duodenal stent had migrated. He is also undergoing a takedown of a Basia fundoplication and IR coiling of blood vessel feeding duodenal ulcer. * He was on iron therapy. He is not on iron therapy at this time. He is only taking Carafate for his duodenal ulcers. His last hemoglobin was 9.7. He has been having some left lower quadrant left upper quadrant pain. He comes back in for scheduled EGD and colonoscopy for evaluation of his abdominal pain. He does take stool softeners because of intermittent constipation. Recommendations: Restart iron therapy with vitamin C twice a day, hold Carafate. Will schedule repeat colonoscopy. He was explained alternatives, risk and benefits of the study bleeding complex, septal, perforation, need for injection. He will have an ASA of 3. (3) Abdominal pain: Status: Acute Coding Level of Care Code Off vis,est,level 3 Diagnoses Multiple subsegmental pulmonary emboli without acute cor pulmonale I26.94 Pulmonary embolism type: multiple subsegmental (without acute cor pulmonale) Duodenal ulcer K26.9 Abdominal pain R10.9 Clinical Quality Measures Falls Risk Screening/Assistive Devices Have you fallen in the past year?: No 11/21/24 0811 <Electronically signed by Betito marino DO> Date _ Betito Friend DO Cosigner Signature: Date (if applicable) CC: ~ [facility] Work Phone: Reason for referral (narrative)No reason for referral information availableWMer[facility] Work Phone: Reason for visit Narrative* Auth/Cert (Routine) Specialty Diagnoses / Procedures Referred By Contac t Referred To Contact Diagnoses Hematemesis Acute GIB Procedures 0 Kieran Peterson MD [address] [facility] [address] [place] [phone] Phone: tel: fax: [facility] Surgical Progressive Care Unit PCU [address] [place] [phone] Phone: tel: Referral ID Status Reason Start Date Expiration Date Visits Re quested Visits Authorized [id number] 1 [facility] Health Summary Purpose Family History No Family History Records Found Relationship Condition Age at Onset Recorded Date/T shanika father Myocardial infarction Unknown mother Cerebrovascular accident (CVA) Unknown Advance Directives No Advanced Directives Records Found Advance Directive Response Recorded Date/ Time Living Will Yes May 06 7:06pm Do you have a Healthcare Power of Senior It Security Analyst? Yes May 06, 2024 7:06pm Name of Medical Power of Senior It Security Analyst May 06, 2024 7:06pm Do you have a Healthcare Power of Senior It Security Analyst? Yes August 05, 2024 4:27pm Name of Medical Power of Senior It Security Analyst Rachana Garcia August 05, 2024 4:27pm Date Activated Date Inactivated Comments 08/10/2024 1:54 AM 08/13/2024 2:28 PM Date Activated Date Inactivated Comments 08/25/2024 3:54 AM 08/25/2024 8:13 PM Date Activated Date Inactivated Comments 08/10/2024 1:54 AM 08/13/2024 2:28 PM Date Activated Date Inactivated Comments 08/25/2024 3:54 AM 08/25/2024 8:13 PM Date Activated Date Inactivated Comments 08/10/2024 1:54 AM 08/13/2024 2:28 PM Advance Directive Response Recorded Date/ Time Do you have a Healthcare Power of Senior It Security Analyst? Yes September 09, 2024 6:30am Do you have a Healthcare Power of Senior It Security Analyst? Yes August 05, 2024 4:27pm Name of Medical Power of Senior It Security Analyst Rachana Garcia August 05, 2024 4:27pm Date Activated Date Inactivated Comments 09/09/2024 10:23 AM 09/15/2024 3:10 PM Date Activated Date Inactivated Comments 08/25/2024 3:54 AM 08/25/2024 8:13 PM Date Activated Date Inactivated Comments 08/10/2024 1:54 AM 08/13/2024 2:28 PM Advance Directive Response Recorded Date/ Time Do you have a Healthcare Power of Senior It Security Analyst? Yes September 09, 2024 6:30am Do you have a Healthcare Power of Senior It Security Analyst? Yes December 28, 2024 3:38pm Name of Medical Power of Senior It Security Analyst December 28, 2024 3:38pm Chief Complaint and Reason for Visit Chief [...] FU August 22, 2024 9:03a m Hospital September 01, 2024 3:17p m Reason for [...] Pulmonary embolism August 22, 2024 9:03a m Chief Complaint Admit Date ABD BLOATING, CONSTIPATION July 25, 2 025 [...] GI BLEED August 09, 2024 5:17pm Hospital August 22, 2024 9:03a m Hospital September 01, 2024 3:17p m alt loc September 09, 2024 6:29a m Reason for Visit Admit Date Constipation [...] Pulmonary embolism August 22, 2024 9:03a m DVT (deep venous thrombosis) September 01, 2 025 3:17pm Pulmonary embolism September 01, 2024 3:17p m S/P IVC filter September 01, 2024 3:17p m Chief Complaint Admit Date ABD BLOATING, CONSTIPATION July 25, 2 025 [...] Hospital FU September 01, 2024 3:17p m alt loc September 09, 2024 6:29a m Consultation for upper/lower scope Augus t 2024 7:27am Reason for Visit Admit Date Constipation July [...] Pulmonary embolism August 22, 2024 9:03a m DVT (deep venous thrombosis) September 01, 2 025 3:17pm Pulmonary embolism September 01, 2024 3:17p m S/P IVC filter September 01, 2024 3:17p m Abdominal pain November 21, 2024 7: 27am Duodenal ulcer November 21, 2024 7: 27am Pulmonary embolism November 21, 2024 7: 27am Additional Source Comments (unrecognized sect ion and content) No Status Records FoundNo Status Records FoundNo Status Records FoundNo Status Records FoundNo Status Records Found INFORMATION SOURCE (unrecogn ized section and content) DATE CREATED AUTHOR 07/04/2022 [facility] DATE CREATED AUTHOR AUTHOR'S ORGANIZ ATION 07/07/2022 [facility] ([place]) DATE CREATED AUTHOR AUTHOR'S ORGANIZ ATION 09/11/2024 [facility] DATE CREATED AUTHOR AUTHOR'S ORGANIZ ATION 11/28/2024 [facility] DATE CREATED AUTHOR AUTHOR'S ORGANIZ ATION 01/18/2025 [facility] Care Teams (unrecognized sec tion and content) Team Status: Active Member Role Status Dates Dr. Dante Gurrola DO Primary Care Provider Active Team Status: Inactive Member Role Status Dates Dr. Dante Gurrola DO Primary Care Provider Active Start: May 06, 2024 End: May 06, 2024 Dr. Afl Santiago DO Attending Provider Active Start: May [...] July 25, 2024 End: July 25, 2024 NERI Baird Attending Provider Active S tart: July 25, [...] August 09, 2024 Dr. Brandie Spears , Attending Provider Active S tart: August 05, [...] Star t: August 05, 2024 Rachana Birmingham OIL BURNER, OIL BURNER-C Primary Care Provider Activ e Start: August 05, 2024 Dr. Derrick Yadav MD Admit Provider Active Start: August 05, 2024 Dr. Derrick Yadav MD Other Provider Active Start: August 05, 2024 Dr. Betito Avendano DO Attending Provider Active Start: August 05, 2024 Team Status: Active Member Role Status Lynsey Valdez MD Emergency Provider Active Star t: August 06, 2024 Rachana Birmingham OIL BURNER, OIL BURNER-C Primary Care Provider Activ e Start: August [...] art: August 07, 2024 Dr. Dante Gurrola DO Primary Care Provider Active Start: August 07, 2024 Team Status: Active Member Role Status Lynsey Valdez MD Emergency Provider Active Star t: August 07, 2024 Dr. Derrick Yadav MD Admit Provider Active Start: August 07, 2024 Dr. Derrick Yadav MD Other Provider Active Start: August 07, 2024 Dr. Melonie Odell MD Other Provider Active St art: August 07, 2024 Dr. Dante Gurrola , DO Primary Care Provider Active Start: August 07, 2024 Dr. Betito Avendaon , DO Attending Provider Active Start: August [...] August 08, 2024 Dr. Betito Avendano , DO Attending [...] Active Start: August 09, 2024 Dr. Derrick aYdav MD Other Provider Active Start: August 09, 2024 Dr. Dante Gurrola , Primary Care Provider Active Start: August 09, 2024 Dr. Brandie Spears , Attending Provider Active S tart: August 09, 2024 Dr. Brandie Spears DO [...] : August 09, 2024 Dr. Betito Avendano , Attending Provider Active Start: August 09, 2024 [employer] Relationship Specialty Start Date End Date Dante Gurrola [address] [place] [address] PCP - General Internal Medicine 08/17/24 Team Status: Inactive Member Role Status Lynsey Valdez MD Emergency Provider Active Star t: August 05, 2024 End: August 09, 2024 Dr. Derrick Yadav MD Admit Provider Active Start: August 05, 2024 End: August 09, 2024 Dr. Derrick Yadav MD Other Provider Active Start: August 05, 2024 End: August 09, 2024 Dr. Dante Gurrola , Primary Care Provider Active Start: August 05, [...] Star t: August 05, 2024 Rachana Birmingham OIL BURNER, OIL BURNER-C Primary Care Provider Activ e Start: August [...] Active Star t: August 08, 2024 Dr. Derrikc Yadav MD Admit Provider Active Start: August 08, 2024 Dr. Derrick Yadav MD Other Provider Active Start: August 08, 2024 Dr. Dante Gurrola DO Primary Care Provider Active Start: August 08, 2024 Dr. Brandie Spears DO Referring Provider Active S tart: August 08, 2024 Dr. Brandie Spears DO Other Provider Active Start : August 08, 2024 Dr. Melonie Odell MD Other Provider Active St art: August 08, 2024 Dr. Betito Avendano DO Attending Provider Active Start: August 08, [...] tart: August 09, 2024 Dr. Brandie Spears DO [...] August 22, 2024 End: August 22, 2024 [employer] Relationship Specialty Start Date End Date Dante Gurrola [address] [place] [address] PCP - General Internal Medicine 08/17/24 [employer] Relationship Specialty Start Date End Date Dante Gurrola [address] [place], [place] [address] PCP - General Internal Medicine 08/17/24 Team Status: Inactive Member Role Status Dates Dr. Dante Gurrola DO Primary Care Provider Active Start: September 01, 2024 End: September 01, 2024 Dr. Dante Gurrola DO Referring Provider Active Start: September 01, 2024 End: September 01, 2024 MADDIE Clayton Attending Provider Active Star t: September 01, 2024 End: September 01, 2024 [employer] Relationship Specialty Start Date End Date Dante Gurrola [address] [place] [address] PCP - General Internal Medicine 08/17/24 Team Status: Inactive Member Role Status Dates Dr. Dante Gurrola DO Primary Care Provider Active Start: September 09, 2024 End: September 09, 2024 Dr. Sy Urena MD Emergency Provider Active Sta rt: September 09, 2024 End: September 09, 2024 [employer] Relationship Specialty Start Date End Date Dante Gurrola [address] [place] [address] PCP - General Internal Medicine 08/17/24 [employer] Relationship Specialty Start Date End Date Dante Gurrola [address] [place], [place] [id number] PCP - General Internal Medicine 08/17/24 Team Status: Active Member Role/Relationship Status Dates Dr. Dante Gurrola DO Primary Care Provider Active Team Status: Inactive Member Role/Relationship Status Dates Dr. Dante Gurrola DO Primary Care Provider Active Start: July 25, 2024 End: July 25, 2024 Dr. Dante Gurrola DO Referring Provider Active Start: July 25, 2024 End: July 25, 2024 NERI Baird Attending Provider Active S tart: July 25, 2024 End: July 25, 2024 Team Status: Inactive Member Role/Relationship Status Dates Wally Valdez MD Emergency Provider [...] August 09, 2024 Team Status: Active Member Role/Relationship Status Dates Wally Valdez MD Emergency Provider Active Star t: August 05, 2024 Rachana Birmingham OIL BURNER, OIL BURNER-C Primary Care Provider Activ e Start: August 05, 2024 Dr. Derrick Yadav MD Admit Provider Active Start: August 05, 2024 Dr. Derrick Yadav MD Referring Provider Active Start: August 05, 2024 Dr. Derrick Ydaav MD Other Provider Active Start: August 05, 2024 Dr. Betito Avendano DO Attending Provider Active Start: August 05, 2024 Team Status: Active Member Role/Relationship Status Dates Wally Valdez MD Emergency Provider Active Star t: August 06, 2024 Rachana Birmingham OIL BURNER, OIL BURNER-C Primary Care Provider Activ e Start: August 06, 2024 Dr. Derrick Yadav MD Admit Provider Active Start: August 06, 2024 Dr. Derrick Yadav MD Other Provider Active Start: August 06, 2024 Dr. Melonie Odell MD Attending Provider Active Start: August 06, 2024 Dr. Melonie Odell MD Other Provider Active St art: August 06, 2024 Team Status: Active Member Role/Relationship Status Dates Wally Valdez MD Emergency Provider [...] August 07, 2024 Team Status: Active Member Role/Relationship Status Dates Wally Valdez MD Emergency Provider Active Star t: August 07, 2024 Dr. Derrick Yadav MD Admit Provider Active Start: August 07, 2024 Dr. Derrick Yadav MD Other Provider Active Start: August 07, 2024 Dr. Melonie Odell MD Other Provider Active St art: August 07, 2024 Dr. Dante Gurrola , DO Primary Care Provider Active Start: August 07, 2024 Dr. Betito Avendano , Attending Provider Active Start: August 07, 2024 Dr. Brandie Spears , DO Referring Provider Active S tart: August 07, 2024 Team Status: Active Member Role/Relationship Status Dates Wally Valdez MD Emergency Provider [...] August 08, 2024 Team Status: Active Member Role/Relationship Status Dates Wally Valdez MD Emergency Provider [...] August 08, 2024 Dr. Betito Avendano , DO Attending Provider Active Start: August 08, 2024 Team Status: Active Member Role/Relationship Status Dates Wally Valdez MD Emergency Provider Active Star t: August 09, 2024 Dr. Derrick Yadav MD Admit Provider Active Start: August 09, 2024 Dr. Derrick Yadav MD Other Provider Active Start: August 09, 2024 Dr. Dante Gurrola , DO Primary Care Provider Active Start: August 09, 2024 Dr. Brandie Spears , DO Referring [...] August 09, 2024 Team Status: Active Member Role/Relationship Status Dates Wally Vadlez MD Emergency Provider Active Star t: August [...] August 09, 2024 Team Status: Active Member Role/Relationship Status Dates Wally Valdez MD Emergency Provider Active Star t: August 09, 2024 Dr. Derrick Yadav MD Admit Provider Active Start: August 09, 2024 Dr. Derrick Yadav MD Other Provider Active Start: August 09, 2024 Dr. Dante Gurrola DO Primary Care Provider Active Start: August 09, 2024 Dr. Brandie Spears , DO Referring [...] August 09, 2024 Team Status: Inactive Member Role/Relationship Status Dates Dr. Dante Gurrola DO Primary Care Provider Active Start: August 22, 2024 End: August 22, 2024 Dr. Dante Gurrola DO Referring Provider Active Start: August 22, 2024 End: August 22, 2024 Dr. Betito Avendano DO Attending Provider Active Start: August 22, 2024 End: August 22, 2024 Team Status: Inactive Member Role/Relationship Status Dates Dr. Dante Gurrola DO Primary Care Provider Active Start: September 01, 2024 End: September 01, 2024 Dr. Dante Gurrola DO Referring Provider Active Start: September 01, 2024 End: September 01, 2024 MADDIE Clayton Attending Provider Active Star t: September 01, 2024 End: September 01, 2024 Team Status: Inactive Member Role/Relationship Status Dates Dr. Dante Gurrola DO Primary Care Provider Active Start: September 09, 2024 End: September 09, 2024 Dr. Sy Urena MD Attending Provider Active Sta rt: September 09, 2024 End: September 09, 2024 Dr. Sy Urena MD Emergency Provider Active Sta rt: September 09, 2024 End: September 09, 2024 Team Status: Inactive Member Role/Relationship Status Dates Dr. Dante Gurrola DO Primary Care Provider Active Start: November 21, 2024 End: November 21, 2024 Dr. Dante Gurrola DO Referring Provider Active Start: November 21, 2024 End: November 21, 2024 Dr. Betito Avendano DO Attending Provider Active Start: November 21, 2024 End: November 21, 2024 Team Status: Active Member Role/Relationship Status Dates Dr. Dante Gurrola DO Primary care physician Active Team Status: Inactive Member Role/Relationship Status Dates Dr. Dante Gurrola DO Primary care physician Active Start: September 09, 2024 End: September 09, 2024 Dr. Sy Urena MD Attending physician Active St art: September 09, 2024 End: September 09, 2024 Dr. Sy Urena MD Emergency Department Physician Acti ve Start: September 09, 2024 End: September 09, 2024 Team Status: Inactive Member Role/Relationship Status Dates Dr. Dante Gurrola DO Primary care physician Active Start: November 21, 2024 End: November 21, 2024 Dr. Dante Gurrola DO Referring Provider Active Start: November 21, 2024 End: November 21, 2024 Dr. Betito Avendano DO Attending physician Active Start: November 21, 2024 End: November 21, 2024 Team Status: Inactive Member Role/Relationship Status Dates Dr. Dante Gurrola DO Primary care physician Active Start: January 01, 2025 End: January 01, 2025 Dr. Dante Gurrola DO Referring Provider Active Start: January 01, 2025 End: January 01, 2025 Dr. Betito Avendano DO Attending physician Active Start: January 01, 2025 End: January 01, 2025 Team Status: Active Member Role/Relationship Status Dates Dr. Dante Gurrola DO Primary care physician Active Start: January 01, 2025 Dr. Dante Gurrola DO Referring Provider Active Start: January 01, 2025 Dr. Betito Avendano DO Attending physician Active Start: January 01, 2025 Dr. Cisse Friend , DO Nurse Practitioner Active Start: January 01, 2025 Reason for Visit (unrecogniz ed section and content) Reason Comments Shortness of Breath Specialty Diagnoses / Procedures Referred By Jami t Referred To Contact Diagnoses Duodenal perforation (CMS/HCC) (HCC) perforated viscus Procedures . Zara Spann DO [address] [facility] [address] [address] [place] [address] Phone: tel: fax: [facility] [address] [place] [address] Phone: tel: Referral ID Status Reason Start Date Expiration Date Visits Re quested Visits Authorized [id number] 1 1 Reason Onset Date Comments Other 08/17/2024 Reason Comments Post-op ALS P/O DIAG LAP, LA P WEDGE RESECTION OF STOMACH, EGD ON 08/10/2024 Reason Onset Date Comments Post-op Problem 08/24/2024 Reason Comments Abdominal Pain Pt complains of abd pain that started Wednesday. Pt states surgery 08/09. Reason Comments Follow-up ALS 6 WK FU S/P DIAG LAP, LAP WEDGE RESECTION OF STOMACH, EGD ON 08/10/2024 Scheduled Active and Recently Administ ered Medications [...] Provider: Mervat Lala RN - Reason: Patient/family refused)210 (Given - Provider: Yen Blackwell RN) 0310 [...] in room)1719 (Given - Provider: Zaid Whitley, AGENCY TRAINER)2116 (Given - Provider: Mayank Hoyos, DARIA)2330 (Canceled [...] Mervat Lala, RN)1343 (Stopped - Provider: Mervat Lala RN) Continuous Medication Order 08/11/2024 08/12/2024 08/13/2024 lactated Ringer's (LR) infusion 75 mL/hr, IntraVENous, Continuous, Starting on Leigh Ann 08/10/24 at 0200 2155 (New Bag - Provider: Yen Blackwell RN) 0750 (Rate/Dose Change - Provider: Mervat Lala, TOBIAS - Comment: new bag) PRN Medication Order [...] sedation for opioid reversal - MUST notify business continuity planning director provider immediately after first dose, may give [...] Starting on Leigh Ann 08/10/24 at 0154 Scheduled Medication Order 09/06/2024 09/07/2024 09/08/2024 morphine injection 4 mg (COMPLETED) 4 mg, IntraVENous, Once, On Wed09/08/24 at 1340, For 1 dose, If oral and injectable narcotics ordered, use oral first and only use injectable if oral is ineffective or cannot take oral. Do Not give oral and injectable within 1 hour of each other unless specifically ordered. 1430 (Given - Provid er: Terri Cunningham RN) morphine injection 4 mg (COMPLETED) 4 mg, IntraVENous, Once, On Wed09/08/24 at 1630, For 1 dose, If oral and injectable narcotics ordered, use oral first and only use injectable if oral is ineffective or cannot take oral. Do Not give oral and injectable within 1 hour of each other unless specifically ordered. 1713 (Given - Provid er: Kami Lechuga RN) ondansetron (Zofran) injection 4 mg (COMPLETED) 4 mg, IntraVENous, Once, On Wed09/08/24 at 1340, For 1 dose 1430 (Given - Provid er: Terri Cunningham RN) oxyCODONE-acetaminophen (Percocet) 5-325 MG per tablet 1 tablet 1 tablet, Oral, Once, On Wed09/08/24 at 1735, For 1 dose, Maximum dose of acetaminophen is 4000 mg from all sources in 24 hours. 1738 (Not Given - Pr ovider: Kami Lechuga RN - Reason: Patient not available - Comment: patient left before order was seen by RN) sodium chloride 0.9 % bolus 1,000 mL (COMPLETED) 1,000 mL, IntraVENous, at 1,000 mL/hr, Administer over 1 Hours, Once, On Wed09/08/24 at 1340, For 1 dose 1426 (New Bag - Prov ider: Yajaira Ryan LPN)1620 (Stopped - Provider: Terri Adair RN) PRN Medication Order 09/06/2024 09/07/2024 09/08/2024 iopamidol (Isovue-370) 76 % injection 75 mL (COMPLETED) 75 mL, IntraVENous, IMG once PRN, contrast, Starting on Wed09/08/24 at 1538, For 1 dose 1538 (Given - Provid er: Joesph Welch, RT (R)(CT)) Scheduled Medication Order 09/13/2024 09/14/2024 09/15/2024 apixaban (Eliquis) tablet 5 mg 5 mg, Oral, 2 times daily, First dose on Wed09/09/24 at 1030, Anticoagulant, On hold since Wed09/09/2024 at 1024 until manually unheld 0900 (Dose Auto Held)2100 (Dose Auto Held) 0900 (Dose Auto Held)2100 (Dose Auto Held) 0900 (Dose Auto Held)1505 (Unheld by provider - Provider: Automatic Discharge Provider) dicyclomine (Bentyl) tablet 20 mg 20 mg, Oral, 3 times daily, First dose on Wed09/09/24 at 1030, On hold since Wed09/09/2024 at 1024 until manually unheld 0900 (Dose Auto Held)1400 (Dose Auto Held)2100 (Dose Auto Held) 0900 (Dose Auto Held)1400 (Dose Auto Held)2100 (Dose Auto Held) 0900 (Dose Auto Held)1505 (Unheld by provider - Provider: Automatic Discharge Provider) docusate sodium (Colace) capsule 100 mg 100 mg, Oral, Every 12 hours, First dose on 09/09/24 at 1030, Do not crush or break., On hold since Wed09/09/2024 at 1024 until manually unheld 1030 (Dose Auto Held)2230 (Dose Auto Held) 1030 (Dose Auto Held)2230 (Dose Auto Held) 1030 (Dose Auto Held)1505 (Unheld by provider - Provider: Automatic Discharge Provider) enoxaparin (Lovenox) syringe 40 mg 40 mg, SubCUTAneous, Every 24 hours scheduled (Daily), First dose on Wed09/11/24 at 0900, Indication of Use: Prophylaxis-DVT/PE, Indications: Prophylaxis of Venous Thromboembolism 0830 (Given - Provider: Toño Cervantes RN) 0704 (JUN Hold - Provider: Automatic Transfer Provider - Reason: Patient not available)09 (Dose Auto Held - Provider: Automatic Transfer Provider)102 (JUN Unhold - Provider: Automatic Transfer Provider)111 (Given - Provider: Toño Cervantes RN) 0915 (Not Given - Provider: Toño Cervantes RN - Reason: Other) mupirocin (Bactroban) 2 % ointment () Nasal, 2 times daily, First dose on 09/09/24 at 1315, For 5 days 0833 (Not Given - Provider: Toño Cervantes RN - Reason: Patient/family refused)2109 (Given - Provider: Shwetha Lux, TOBIAS) pantoprazole (ProtoNix) 40 mg in sodium chloride (PF) 0.9 % 10 mL injection 40 mg, IntraVENous, Administer over 2 Minutes, 2 times daily, First dose on 09/09/24 at 1115, Give only if unable to tolerate po. 0831 (Given - Provider: Toño Cervantes RN)210 (Given - Provider: Shwetha Lux, TOBIAS) 07 (JUN Hold - Provider: Automatic Transfer Provider - Reason: Patient not available)899 (Dose Auto Held - Provider: Automatic Transfer Provider)1028 (JUN Unhold - Provider: Automatic Transfer Provider)2101 (Given - Provider: Miriam Chaudhari RN) 09 (Given - Provider: Toño Cervantes RN) sodium chloride 0.9% (NS) flush 10 mL 10 mL, IntraVENous, Every 12 hours scheduled (2 times per day), First dose on 09/09/24 at 2100 0833 (Given - Provider: Toño Cervantes RN)2109 (Given - Provider: Shwetha Lux, TOBIAS) 07 (JUN Hold - Provider: Automatic Transfer Provider - Reason: Patient not available)09 (Dose Auto Held - Provider: Automatic Transfer Provider)1028 (JUN Unhold - Provider: Automatic Transfer Provider)2100 (Given - Provider: Miriam Chaudhari RN) 0916 (Given - Provider: Toño Cervantes RN) sodium chloride 0.9% (NS) flush 5-40 mL 5-40 mL, IntraVENous, Every 12 hours, First dose on Wed09/09/24 at 1030, For Line Patency: Peripheral IV = 5 mL; Midline or Central Line = 10 mL/lumen. If following IV push medication, administer flush at same rate as the IV push. Flush volume is determined by type of infusion therapy being given. For non-viscous solutions use: Peripheral IV = 5 mL Midline or Central Line = 10 mL/lumen For viscous solutions (i.e. blood components, parenteral nutrition, contrast media, or after obtaining blood sample) use: Peripheral IV = 10 mL Midline or Central Line = 20 mL/lumen 1105 (Given - Provider: Toño Cervantes RN)2106 (Given - Provider: Shwetha uLx, TOBIAS) 0704 (JUN Hold - Provider: Automatic Transfer Provider - Reason: Patient not available)1029 (JUN Unhold - Provider: Automatic Transfer Provider)1030 (Canceled Entry - Provider: Automatic Discharge Provider - Comment: Automatically canceled at discontinue of medication order)210 (Given - Provider: Miriam Chaudhari RN) 1132 (Not Given - Provider: Toño Cervantes RN - Reason: Other - Comment: d/c) sucralfate (Carafate) tablet 1 g 1 g, Oral, 4 times daily before meals & nightly, First dose on Wed09/13/24 at 1200, Give on an empty stomach (1 hr before meals, at bedtime). Separate all other meds by at least 2 hours (exception: antacids may be given only 30 minutes apart). 1155 (Given - Provider: Toño Cervantes RN)1738 (Given - Provider: Toño Cervantes RN)2104 (Given - Provider: Shwetha Lux RN) 0704 (JUN Hold - Provider: Automatic Transfer Provider - Reason: Patient not available)0800 (Dose Auto Held - Provider: Automatic Transfer Provider)1029 (JUN Unhold - Provider: Automatic Transfer Provider)1116 (Given - Provider: Tñoo Cervantes RN)1619 (Given - Provider: Toño Cervantes RN)2102 (Given - Provider: Miriam Chaudhari RN) 0912 (Given - Provider: Toño Cervantes RN)1200 (Canceled Entry - Provider: Automatic Discharge Provider - Comment: Automatically canceled at discontinue of medication order) Continuous Medication Order 09/13/2024 09/14/2024 09/15/2024 LR (CANCELED) 75 mL/hr, IntraVENous, Continuous, Starting on Wed09/12/24 at 0000, To start when NPO 0241 (New Bag - Provider: Airam Abarca RN) PRN Medication Order 09/13/2024 09/14/2024 09/15/2024 HYDROmorphone (Dilaudid) injection 0.5 mg(Linked Group 1) 0.5 mg, IntraVENous, Every 4 hours PRN, moderate pain (4-6), Starting on 09/09/24 at 2052, If oral and IV narcotics ordered, use oral first and only use IV if oral is ineffective or cannot take oral. Do Not give oral and IV within 1 hour of each other unless specifically ordered. 0704 ([facility] Hold - Provider: Automatic Transfer Provider - Reason: Patient not available)1029 ([facility] Unhold - Provider: Automatic Transfer Provider) HYDROmorphone (Dilaudid) injection 1 mg(Linked Group 1) 1 mg, IntraVENous, Every 4 hours PRN, severe pain (7-10), Starting on 09/09/24 at 2052, If oral and IV narcotics ordered, use oral first and only use IV if oral is ineffective or cannot take oral. Do Not give oral and IV within 1 hour of each other unless specifically ordered. 0704 ([facility] Hold - Provider: Automatic Transfer Provider - Reason: Patient not available)1029 ([facility] Unhold - Provider: Automatic Transfer Provider) naloxone (Narcan) injection 0.4 mg 0.4 mg, IntraVENous, Every 5 min PRN, opioid reversal, respiratory depression, Starting on 09/09/24 at 1025, +++ For RR <10, pinpoint pupils, over sedation for opioid reversal - MUST notify business continuity planning director provider immediately after first dose, may give IM or SQ if no IV access +++ 0704 ([facility] Hold - Provider: Automatic Transfer Provider - Reason: Patient not available)1029 ([facility] Unhold - Provider: Automatic Transfer Provider) ondansetron (Zofran) injection 4 mg(Linked Group 2) 4 mg, IntraVENous, Every 6 hours PRN, nausea, vomiting, Starting on 09/09/24 at 1019, 1st Line. Give IV if patient is unable to take orally. If inadequate response within 60 minutes, proceed to next-line agent or contact provider if no further options ordered. 0704 ([facility] Hold - Provider: Automatic Transfer Provider - Reason: Patient not available)1029 ([facility] Unhold - Provider: Automatic Transfer Provider) ondansetron ODT (Zofran-ODT) disintegrating tablet 4 mg(Linked Group 2) 4 mg, Oral, Every 8 hours PRN, nausea, vomiting, Starting on 09/09/24 at 1019, 1st Line. If inadequate response within 60 minutes, proceed to next-line agent or contact provider if no further options ordered. Patient should allow tablet to dissolve on tongue. Do not remove from blister pack until just before administering. 0704 ([facility] Hold - Provider: Automatic Transfer Provider - Reason: Patient not available)1029 ([facility] Unhold - Provider: Automatic Transfer Provider) polyethylene glycol (PEG) 3350 (Miralax) packet 17 g 17 g, Oral, Daily PRN, constipation, Starting on 09/09/24 at 1019, 1st line for treatment of constipation - give scheduled if no bowel movement in past 24 hours., On hold since 09/09/2024 at 1109 until manually unheld 1505 (Unheld by provider - Provider: Automatic Discharge Provider) sodium chloride 0.9 % infusion 5-250 mL/hr, IntraVENous, PRN, if patient receiving piggyback infusions and maintenance fluids are not ordered OR KVO fluids to protect IV site / prevent frequent line interruptions/ long duration, Starting on 09/09/24 at 1157, For piggyback infusion, administer at same rate as piggyback for a total of 25 mL. Enter 25 mL into dose field and piggyback rate into rate field of order. If piggyback is infusing at a rate less than 100 mL/hr, enter 25 mL into dose field and 100 mL/hr into rate field of order. For KVO fluids, enter rate of 20 mL/hr or less into rate field of order. 0704 ([facility] Hold - Provider: Automatic Transfer Provider - Reason: Patient not available)1029 ([facility] Unhold - Provider: Automatic Transfer Provider) sodium chloride 0.9 % infusion 250 mL/hr, IntraVENous, Administer over 10 Minutes, As needed, For use in priming line prior to transfusion (prime via gravity) and flush line post transfusion, Starting on 09/09/24 at 1833, For 1 dose, For use in priming line prior to transfusion (prime via gravity) and flush line post transfusion ONLY. Discontinue once line has been cleared of remaining blood product. 0704 ([facility] Hold - Provider: Automatic Transfer Provider - Reason: Patient not available)1029 ([facility] Unhold - Provider: Automatic Transfer Provider) sodium chloride 0.9 % infusion 250 mL/hr, IntraVENous, Administer over 10 Minutes, As needed, For use in priming line prior to transfusion (prime via gravity) and flush line post transfusion, Starting on 09/09/24 at 2236, For 1 dose, For use in priming line prior to transfusion (prime via gravity) and flush line post transfusion ONLY. Discontinue once line has been cleared of remaining blood product. 0704 ([facility] Hold - Provider: Automatic Transfer Provider - Reason: Patient not available)1029 ([facility] Unhold - Provider: Automatic Transfer Provider) sodium chloride 0.9% (NS) flush 10 mL 10 mL, IntraVENous, PRN, line care, Starting on 09/09/24 at 1157, After every IV line use 0704 ([facility] Hold - Provider: Automatic Transfer Provider - Reason: Patient not available)1029 ([facility] Unhold - Provider: Automatic Transfer Provider) sodium chloride 0.9% (NS) flush 5-40 mL 5-40 mL, IntraVENous, PRN, line care, After every IV line use, Starting on 09/09/24 at 1019, For Line Patency: Peripheral IV = 5 mL; Midline or Central Line = 10 mL/lumen. If following IV push medication, administer flush at same rate as the IV push. Flush volume is determined by type of infusion therapy being given. For non-viscous solutions use: Peripheral IV = 5 mL Midline or Central Line = 10 mL/lumen For viscous solutions (i.e. blood components, parenteral nutrition, contrast media, or after obtaining blood sample) use: Peripheral IV = 10 mL Midline or Central Line = 20 mL/lumen 0704 ([facility] Hold - Provider: Automatic Transfer Provider - Reason: Patient not available)1029 ([facility] Unhold - Provider: Automatic Transfer Provider) Linked Groups Order Group 1: HYDROmorphone (Dilaudid) injection 0.5 mgJump to med 0.5 mg, IntraVENous, Every 4 hours PRN, moderate pain (4-6), Starting on 09/09/24 at 2051, If oral and IV narcotics ordered, use oral first and only use IV if oral is ineffective or cannot take oral. Do Not give oral and IV within 1 hour of each other unless specifically ordered. Or HYDROmorphone (Dilaudid) injection 1 mgJump to med 1 mg, IntraVENous, Every 4 hours PRN, severe pain (7-10), Starting on 09/09/24 at 2051, If oral and IV narcotics ordered, use oral first and only use IV if oral is ineffective or cannot take oral. Do Not give oral and IV within 1 hour of each other unless specifically ordered. Group 2: ondansetron ODT (Zofran-ODT) disintegrating tablet 4 mgJump to med 4 mg, Oral, Every 8 hours PRN, nausea, vomiting, Starting on 09/09/24 at 1019, 1st Line. If inadequate response within 60 minutes, proceed to next-line agent or contact provider if no further options ordered. Patient should allow tablet to dissolve on tongue. Do not remove from blister pack until just before administering. Or ondansetron (Zofran) injection 4 mgJump to med 4 mg, IntraVENous, Every 6 hours PRN, nausea, vomiting, Starting on 09/09/24 at 1019, 1st Line. Give IV if patient is unable to take orally. If inadequate response within 60 minutes, proceed to next-line agent or contact provider if no further options ordered. FOR RECORDS PERTAINING TO PATIENTS WHO ARE [...] BE BASED ON THE PRIMARY CLINICAL RECORDS. [email or web address] provides no warranty or guarantee of the accuracy or completeness of information in this document.
--- NOTE | 2025-02-22 21:50 | CT_ITS ---
PROCEDURE: ABDOMEN/PELVIS W IV CONT ONLY 02/22/2025 REASON FOR EXAM: ABDOMINAL PAIN TECHNIQUE: Procedure Code: [id number] Modality: CT Procedure: ABDOMEN/PELVIS W IV CONT ONLY Coronal and Sagittal reconstruction series were provided. CONTRAST: OMNIPAQUE 350 VOLUME: 100 mL One or more dose reduction techniques were used (e.g., Automated exposure control, adjustment of the mA and/or kV according to patient size, use of iterative reconstruction technique. RADIATION DOSE SUMMARY: CTDlvol: 18.38 mGy DLP: 2185 mGycm COMPARISON: 08/05/2024. FINDINGS: Well-defined 1.2 cm simple cyst in the left hepatic lobe, benign chronic finding. Diffuse thickening of the stomach suggestive of gastritis. Metallic coils are noted adjacent to the posterior wall of the duodenum. Bilateral renal cysts are noted with the largest measuring 3.5 cm on the left side. Mild calcified atheromatous plaques of the aorta and iliac arteries. IVC filter is noted. Mild prostatomegaly. Mild diffuse thickening of the wall of the bladder, probably chronic bladder outlet obstruction. Scattered fluid-filled small bowels, probably enteritis. Mild diffuse spondylosis. Grade 1 anterolisthesis of L4 on L5. The visualized lung bases are unremarkable. Normal remaining liver. Normal gallbladder and extrahepatic biliary system. Normal spleen. Normal pancreas. Normal bilateral adrenal glands. Normal size of the right kidney. There is no right renal mass. There are no right renal calculi. There is no right hydronephrosis. Normal visualized right ureter. Normal size of the left kidney. There is no left renal mass. There are no left renal calculi. There is no left hydronephrosis. Normal visualized left ureter. Normal colon. The appendix is visualized and appears normal. There is no demonstrated peritoneal fluid. Normal abdominal aorta. Normal inferior vena cava. Normal retroperitoneum. Normal urinary bladder. There is no pelvic mass lesion or lymphadenopathy. There is no pelvic fluid. Normal abdominal wall. CT/Abdomen/Pelvis W IV Cont ONLY IMPRESSION: Well-defined 1.2 cm simple cyst in the left hepatic lobe, benign chronic findin g. Diffuse thickening of the stomach suggestive of gastritis. Metallic coils are noted adjacent to the posterior wall of the duodenum. Bilateral renal cysts are noted with the largest measuring 3.5 cm on the left s santy. Mild calcified atheromatous plaques of the aorta and iliac arteries. IVC filter is noted. Mild prostatomegaly. Mild diffuse thickening of the wall of the bladder, probably chronic bladder ou tlet obstruction. Scattered fluid-filled small bowels, probably enteritis. Mild diffuse spondylosis. Grade 1 anterolisthesis of L4 on L5. Reading Location: [facility]
--- NOTE | 2025-02-22 21:50 | CT_ITS ---
PROCEDURE: CT BRAIN/HEAD WITHOUT CONTRAST 02/22/2025 REASON FOR EXAM: HEADACHE TECHNIQUE: Procedure Code: CTBR Modality: CT Procedure: BRAIN/HEAD WITHOUT CONTRAST Coronal and Sagittal reconstruction series were provided. One or more dose reduction techniques were used (e.g., Automated exposure control, adjustment of the mA and/or kV according to patient size, use of iterative reconstruction technique. RADIATION DOSE SUMMARY: CTDlvol: 44.99 mGy DLP: 846.73 mGycm COMPARISON: None. FINDINGS: No acute intracranial hemorrhage, extra-axial collection, mass effect or evidence of acute infarct. Mild generalized brain parenchymal volume loss and chronic microangiopathic changes, age-appropriate. Grossly unremarkable orbits. Intact skull base and calvarium. Opacification of the imaged right maxillary sinus with internal mineralization. Remainder of the sinuses and mastoid air cells are clear. CT/Brain/Head without Contrast IMPRESSION: No acute intracranial abnormality. Chronic right maxillary sinus disease. Reading Location: [id number]
--- NOTE | 2025-02-22 21:50 | EX.ED.DYSGE1 ---
HPI <Dr. Lebron Lai DO - Last Filed: 02/23/25 00:34> History of Present Illness Chief Complaint: Dizziness Informant: patient Onset/Context/Timing Onset: Month(s) Context: Gradual Onset Timing: Continuous Quality: Burning Location: Bilateral feet Worsened by: Nothing Relieved by: Tylenol Narrative Narrative: Patient presents with dizziness, burning sensation in his feet, and spasms in his legs and feet that have been constant for the past month. Patient states it has gotten worse over the past 4 days. Patient is concerned about his IVC filter. Patient states he has been taking Tylenol with some relief of his pain. Patient denies any trauma or injury. Patient states he feels dizzy at times. Patient states this feels more like lightheaded. Patient admits to a frontal headache. PFSH <Dr. Lebron Lai DO - Last Filed: 02/23/25 00:34> [facility] Medical History Wears glasses Hx of pulmonary embolus History of GI bleed Non-smoker History of DVT (deep vein thrombosis) Mitral valve prolapse Home Medications ?Medication ?Instructions ?Recorded ?Last Taken ?Type multivitamin 1 tab PO DAILY supplement 01/22/20 02/22/25 History omega-3 fatty acids 1,000 mg 2,000 mg PO BID supplement 01/22/20 02/22/25 History capsule pantoprazole 40 mg tablet,delayed 40 mg PO BID 8 weeks #112 tabs 01/12/25 02/22/25 Rx release sucralfate 1 gram tablet 1 g PO 4X/DAY 02/22/25 02/22/25 History Allergy/AdvReac Type Severity Reaction Status Date / Time Penicillins AdvReac PT UNABLE Verified 02/22/25 21:15 TO RESPOND-NEEDS F/U Family History Father Myocardial infarction Mother CVA (cerebral vascular accident) Surgical History Hx of colonoscopy H/O shoulder surgery History of repair of hiatal hernia Social History Smoking Status: Never smoker alcohol intake: never ROS <Dr. Lebron Lai, DO - Last Filed: 02/23/25 00:34> ROS ED Constitutional Constitutional ED: Denies chills or fever(s) Eyes Eyes: Denies blurry vision or change in vision ENT ENT ED: Denies rhinorrhea or sore throat Cardiovascular Cardiovascular: Reports chest pain; Denies palpitations Respiratory/Chest Respiratory/Chest: Denies cough or dyspnea Gastrointestinal Gastrointestinal: Denies melena, nausea or vomiting Genitourinary Genitourinary ED: Denies dysuria or hematuria Musculoskeletal Musculoskeletal: Reports neck pain; Denies back pain Integumentary Reports rash; Denies abscess Neurologic Neurologic: Reports headache(s); Denies weakness Allergic/Immunologic Allergic/Immunologic ED: Denies mouth swelling or urticaria EXAM <Dr. Lebron Lai, DO - Last Filed: 02/23/25 00:34> Physical Exam Const Vital Signs: 02/22/25 21:12 02/22/25 21:15 02/22/25 22:15 Temperature 98.4 F Temperature Source Temporal Pulse Rate 62 58 L 66 Pulse Rate [Lying] Pulse Rate [Sitting (for 1 minute prior to obtaining)] Pulse Rate [Standing (for 1 minute prior to obtaining)] Respiratory Rate 18 15 16 Blood Pressure 124/82 H 144/98 H 137/96 H Blood Pressure [Lying] Blood Pressure [Sitting (for 1 minute prior to obtaining)] Blood Pressure [Standing (for 1 minute prior to obtaining)] Blood Pressure Mean 96 113 109 Blood Pressure Mean [Lying] Blood Pressure Mean [Sitting (for 1 minute prior to obtaining)] Blood Pressure Mean [Standing (for 1 minute prior to obtaining)] Pulse Ox 98 100 100 Oxygen Delivery Method Room Air Room Air 02/22/25 22:26 02/22/25 23:00 02/23/25 00:00 Temperature Temperature Source Pulse Rate 59 L 53 L Pulse Rate [Lying] 55 L Pulse Rate [Sitting (for 1 minute prior to obtaining)] 60 Pulse Rate [Standing (for 1 minute prior to obtaining)] 66 Respiratory Rate 20 H 15 Blood Pressure 137/88 H 148/95 H Blood Pressure [Lying] 138/90 H Blood Pressure [Sitting (for 1 minute prior to obtaining)] 145/92 H Blood Pressure [Standing (for 1 minute prior to obtaining)] 137/96 H Blood Pressure Mean 104 112 Blood Pressure Mean [Lying] 106 Blood Pressure Mean [Sitting (for 1 minute prior to obtaining)] 109 Blood Pressure Mean [Standing (for 1 minute prior to obtaining)] 109 Pulse Ox 99 96 Oxygen Delivery Method Room Air Room Air 02/23/25 01:00 Temperature Temperature Source Pulse Rate 52 L Pulse Rate [Lying] Pulse Rate [Sitting (for 1 minute prior to obtaining)] Pulse Rate [Standing (for 1 minute prior to obtaining)] Respiratory Rate 14 Blood Pressure 152/84 H Blood Pressure [Lying] Blood Pressure [Sitting (for 1 minute prior to obtaining)] Blood Pressure [Standing (for 1 minute prior to obtaining)] Blood Pressure Mean 106 Blood Pressure Mean [Lying] Blood Pressure Mean [Sitting (for 1 minute prior to obtaining)] Blood Pressure Mean [Standing (for 1 minute prior to obtaining)] Pulse Ox 97 Oxygen Delivery Method Room Air Positive well nourished and well developed Constitutional Narrative: BMI is 26.3. General Appearance ED: well developed and NAD HEENT Reports moist mucous membranes Neck supple and no JVD Resp normal respiratory effort and clear to auscultation bilaterally Cardio regular rate and regular rhythm GI non-tender and non-distended Palpation: soft Extremity normal to inspection General Extremety ED: Negative for edema or tenderness General Extremity: Negative for edema Neuro oriented x3, CN's II-XII intact bilaterally and no sensory deficits noted Sensorium / Orientation: alert Motor Exam: strength 5/5 throughout Psych mental status grossly normal <Dr. Massimo Galeano, DO - Last Filed: 02/23/25 01:20> Physical Exam Const Vital Signs: 02/22/25 21:12 02/22/25 21:15 02/22/25 22:15 Temperature 98.4 F Temperature Source Temporal Pulse Rate 62 58 L 66 Pulse Rate [Lying] Pulse Rate [Sitting (for 1 minute prior to obtaining)] Pulse Rate [Standing (for 1 minute prior to obtaining)] Respiratory Rate 18 15 16 Blood Pressure 124/82 H 144/98 H 137/96 H Blood Pressure [Lying] Blood Pressure [Sitting (for 1 minute prior to obtaining)] Blood Pressure [Standing (for 1 minute prior to obtaining)] Blood Pressure Mean 96 113 109 Blood Pressure Mean [Lying] Blood Pressure Mean [Sitting (for 1 minute prior to obtaining)] Blood Pressure Mean [Standing (for 1 minute prior to obtaining)] Pulse Ox 98 100 100 Oxygen Delivery Method Room Air Room Air 02/22/25 22:26 02/22/25 23:00 02/23/25 00:00 Temperature Temperature Source Pulse Rate 59 L 53 L Pulse Rate [Lying] 55 L Pulse Rate [Sitting (for 1 minute prior to obtaining)] 60 Pulse Rate [Standing (for 1 minute prior to obtaining)] 66 Respiratory Rate 20 H 15 Blood Pressure 137/88 H 148/95 H Blood Pressure [Lying] 138/90 H Blood Pressure [Sitting (for 1 minute prior to obtaining)] 145/92 H Blood Pressure [Standing (for 1 minute prior to obtaining)] 137/96 H Blood Pressure Mean 104 112 Blood Pressure Mean [Lying] 106 Blood Pressure Mean [Sitting (for 1 minute prior to obtaining)] 109 Blood Pressure Mean [Standing (for 1 minute prior to obtaining)] 109 Pulse Ox 99 96 Oxygen Delivery Method Room Air Room Air 02/23/25 01:00 Temperature Temperature Source Pulse Rate 52 L Pulse Rate [Lying] Pulse Rate [Sitting (for 1 minute prior to obtaining)] Pulse Rate [Standing (for 1 minute prior to obtaining)] Respiratory Rate 14 Blood Pressure 152/84 H Blood Pressure [Lying] Blood Pressure [Sitting (for 1 minute prior to obtaining)] Blood Pressure [Standing (for 1 minute prior to obtaining)] Blood Pressure Mean 106 Blood Pressure Mean [Lying] Blood Pressure Mean [Sitting (for 1 minute prior to obtaining)] Blood Pressure Mean [Standing (for 1 minute prior to obtaining)] Pulse Ox 97 Oxygen Delivery Method Room Air [facility] <Dr. Lebron Lai, DO - Last Filed: 02/23/25 00:34> [facility] Narrative Medical decision making narrative: Differential diagnosis includes but is not limited to cardiac dysrhythmia, cardiac ischemia, pneumonia, bronchitis, electrolyte abnormality, urinary tract infection, stroke, intracranial bleeding, coagulopathy, and migration of IVC filter. EKG will be obtained to assess for cardiac dysrhythmia and cardiac ischemia. CT scan of the brain will be obtained to assess for intracranial bleeding and stroke. CT scan of the abdomen and pelvis will be obtained to assess for bowel obstruction, perforation, and migration of IVC filter. CBC will be obtained to assess for leukocytosis and anemia. Basic metabolic profile will be obtained to assess for electrolyte abnormality and renal function. PT with INR and PTT will be obtained to assess for coagulopathy. Urinalysis will be obtained to assess for urinary tract infection and hematuria. History & Record Review Additional record(s) reviewed:: Prior outpatient record, Prior ED visit and Prior labs Lab Data Attestation: I reviewed the patient's lab results. Lab results narrative: CBC was reviewed. There is a slight anemia with a hemoglobin of 11.9 and hematocrit of 36.5. The remainder is within normal limits. Basic metabolic profile was reviewed and was essentially within normal limits. PT was INR and PTT were reviewed and were within normal limits. Urinalysis was reviewed. There is no evidence of urinary tract infection or hematuria. Labs: Laboratory Results - last 24 hr 02/22/25 02/22/25 21:27 22:30 WBC 7.7 RBC 4.41 L Hgb 11.9 L Hct 36.5 L MCV 82.8 MCH 27.0 MCHC 32.6 RDW Std Deviation 58.0 H RDW Coeff of Edna 19.2 H Plt Count 280 MPV 9.8 Immature Gran % (Auto) 0.500 Neut % (Auto) 73.9 H Lymph % (Auto) 14.4 L [place] % (Auto) 8.3 Eos % (Auto) 2.3 Baso % (Auto) 0.6 Absolute Neuts (auto) 5.7 Absolute Lymphs (auto) 1.11 Nucleated RBC % 0 PT 14.0 INR 1.1 APTT 30.2 Sodium 139 Potassium 4.4 Chloride 104 Carbon Dioxide 25.9 Anion Gap 9 BUN 26 H Creatinine 1.02 Estim Creat Clear Calc 69.58 Est GFR (MDRD) Non-Af 79 BUN/Creatinine Ratio 25.4 H Glucose 118 H Calcium 9.3 Urine Color Yellow Urine Clarity Clear Urine pH 5.0 Ur Specific [place] 1.020 Urine Protein 30 H Urine Glucose (UA) Normal Urine Ketones Negative Urine Occult Blood 10 H Urine Nitrite Negative Urine Bilirubin Negative Urine Urobilinogen Normal Ur Leukocyte Esterase Negative Urine RBC 0-5 SEEN Urine WBC 0-5 SEEN Ur Squamous Epith Cells 0-5 SEEN Urine Bacteria RARE Urine Mucus RARE Radiography Diagnostic Testing: Clinical Impression(s) from Imaging Studies Abdomen/Pelvis CT 02/22/25 21:50 IMPRESSION: Well-defined 1.2 cm simple cyst in the left hepatic lobe, benign chronic finding. Diffuse thickening of the stomach suggestive of gastritis. Metallic coils are noted adjacent to the posterior wall of the duodenum. Bilateral renal cysts are noted with the largest measuring 3.5 cm on the left side. Mild calcified atheromatous plaques of the aorta and iliac arteries. IVC filter is noted. Mild prostatomegaly. Mild diffuse thickening of the wall of the bladder, probably chronic bladder outlet obstruction. Scattered fluid-filled small bowels, probably enteritis. Mild diffuse spondylosis. Grade 1 anterolisthesis of L4 on L5. [id number] 02/22/25 21:50 IMPRESSION: No acute intracranial abnormality. Chronic right maxillary sinus disease. Reading Location: [id number] scan of the brain was obtained. There is no acute intracranial abnormality. This was interpreted by the radiologist. I also independently reviewed the images and did not see any evidence of intracranial bleeding. EKG Initial EKG: Attestation: I personally reviewed and interpreted this EKG as follows: Interpretation: Sinus Bradycardia (53), RBBB and Non-Specific ST Changes Comments: EKG was obtained. On my independent interpretation, shows sinus bradycardia with a rate of 53. NE interval was normal at 142 ms. QRS interval was normal at 100 ms. QTc interval was normal at 382 milliseconds. There is borderline left axis deviation at -19. There are nonspecific ST-T wave changes noted. Prior EKG tracings: available for review Prior: Unchanged (09/09/2024 and 08/05/2024) Treatment and Re-Evaluation :: Patient given IV fluids. Patient given a dose of morphine. Orthostatic vital signs were obtained and were within normal limits. Patient was able to ambulate here in the emergency department without difficulty. Patient was advised of this findings. Care of the patient was turned over to the oncoming physician pending CT report results of the abdomen and pelvis. If there is no acute abnormality, the patient to be discharged home. Patient was instructed to follow-up with his primary care physician in 3 to 5 days. Patient was instructed to return if worse in any way. Patient understood and was agreeable with the plan. All questions were answered. <Dr. Massimo Galeano DO - Last Filed: 02/23/25 01:20> [facility] Lab Data Labs: Laboratory Results - last 24 hr 02/22/25 02/22/25 21:27 22:30 WBC 7.7 RBC 4.41 L Hgb 11.9 L Hct 36.5 L MCV 82.8 MCH 27.0 MCHC 32.6 RDW Std Deviation 58.0 H RDW Coeff of Edna 19.2 H Plt Count 280 MPV 9.8 Immature Gran % (Auto) 0.500 Neut % (Auto) 73.9 H Lymph % (Auto) 14.4 L [place] % (Auto) 8.3 Eos % (Auto) 2.3 Baso % (Auto) 0.6 Absolute Neuts (auto) 5.7 Absolute Lymphs (auto) 1.11 Nucleated RBC % 0 PT 14.0 INR 1.1 APTT 30.2 Sodium 139 Potassium 4.4 Chloride 104 Carbon Dioxide 25.9 Anion Gap 9 BUN 26 H Creatinine 1.02 Estim Creat Clear Calc 69.58 Est GFR (MDRD) Non-Af 79 BUN/Creatinine Ratio 25.4 H Glucose 118 H Calcium 9.3 Urine Color Yellow Urine Clarity Clear Urine pH 5.0 Ur Specific [place] 1.020 Urine Protein 30 H Urine Glucose (UA) Normal Urine Ketones Negative Urine Occult Blood 10 H Urine Nitrite Negative Urine Bilirubin Negative Urine Urobilinogen Normal Ur Leukocyte Esterase Negative Urine RBC 0-5 SEEN Urine WBC 0-5 SEEN Ur Squamous Epith Cells 0-5 SEEN Urine Bacteria RARE Urine Mucus RARE Radiography Diagnostic Testing: Clinical Impression(s) from Imaging Studies Abdomen/Pelvis CT 02/22/25 21:50 IMPRESSION: Well-defined 1.2 cm simple cyst in the left hepatic lobe, benign chronic finding. Diffuse thickening of the stomach suggestive of gastritis. Metallic coils are noted adjacent to the posterior wall of the duodenum. Bilateral renal cysts are noted with the largest measuring 3.5 cm on the left side. Mild calcified atheromatous plaques of the aorta and iliac arteries. IVC filter is noted. Mild prostatomegaly. Mild diffuse thickening of the wall of the bladder, probably chronic bladder outlet obstruction. Scattered fluid-filled small bowels, probably enteritis. Mild diffuse spondylosis. Grade 1 anterolisthesis of L4 on L5. Reading Location: [place] [id number] 02/22/25 21:50 IMPRESSION: No acute intracranial abnormality. Chronic right maxillary sinus disease. Reading Location: [facility] Treatment and Re-Evaluation :: Patient given IV fluids. Patient given a dose of morphine. Orthostatic vital signs were obtained and were within normal limits. Patient was able to ambulate here in the emergency department without difficulty. Patient was advised of this findings. Care of the patient was turned over to the oncoming physician pending CT report results of the abdomen and pelvis. If there is no acute abnormality, the patient to be discharged home. Patient was instructed to follow-up with his primary care physician in 3 to 5 days. Patient was instructed to return if worse in any way. Patient understood and was agreeable with the plan. All questions were answered. Patient was endorsed to me by outgoing physician pending her CT abdomen and pelvis which showed a 1.2 cm simple cyst in the left hepatic lobe is a benign chronic issue there is findings of gastritis and enteritis otherwise no other acute pathology the IVC filters noted patient will be discharged with return precautions and follow-up recommendations Massimo Galeano DO Discharge Plan Triage Chief Complaint: Dizziness Other Complaint: Lower Extremity Injury ED Provider: Lebron Lai Dx/Rx/DC Orders Clinical Impression: Dizziness, Bilateral leg paresthesia, S/P IVC filter Instructions: ED Dizziness, Uncertain Cause, ED Paresthesia Prescriptions: No Action multivitamin 1 EACH tablet 1 tab PO DAILY omega-3 fatty acids 1,000 MG capsule 2,000 mg PO BID sucralfate 1 gram tablet 1 g PO 4X/DAY pantoprazole 40 mg tablet,delayed release (DR/EC) 40 mg PO BID 56 Days Qty: 112 0RF Primary Care Provider: Dante Gurrola Referrals: Dante Gurrola DO [Primary Care Provider, Family Practice] - 3-5 Days Print Language: Yakut Disposition Disposition: Home, Self Care
[2025-02-22 22:13] LABS: Hematocrit 36.5 % (40-54); Hemoglobin 11.9 g/dL (13.0-16.5); Immature Granulocytes Count 0.040 X10^3/uL (0.0-0.0); Mean Corp Hgb Conc 32.6 g/dL (32-36); Mean Corpuscular Volume 82.8 fL (80-94); Mean Platelet Vol. 9.8 fl (6.2-12.0); NRBC Flagged by Analyzer 0 % (0-5); Platelet Count 280 K/mm3 (150-450); RBC Distribution Width CV 19.2 % (11.6-14.6); RBC Distribution Width SD 58.0 fl (35.1-43.9); Red Blood Count 4.41 M/mm3 (4.6-6.2); White Blood Count 7.7 K/mm3 (4.4-11.0)
[2025-02-22 22:15] VITALS: BP 137/96; PULSE 66; RESP 16; O2SAT 100
[2025-02-22 22:17] LABS: Partial Thromboplast Time 30.2 Seconds (24.1-36.2); Prothrombin Time (Protime)PT. 14.0 SECONDS (11.7-14.9)
[2025-02-22 22:26] VITALS: BP 137/96; BP 138/90; BP 145/92; PULSE 55; PULSE 60; PULSE 66
[2025-02-22 22:40] LABS: Color, Urine Yellow (Yellow); Glucose, Dipstick Normal (Normal); Ketone-Dipstick Negative (Negative); Leukocyte Esterase-Dipstick Negative /ul (Negative); Nitrite-Dipstick Negative (Negative); Occult Blood-Urine 10 /ul (Negative); Protein-Dipstick 30 mg/dl (Negative); Specific Gravity, Urine 1.020 (1.002-1.030); Urine Bilirubin Dipstick Negative (Negative)
[2025-02-22 22:49] LABS: Anion Gap 9 (5-15); BUN 26 mg/dL (4-19); BUN/Creat Ratio 25.4 RATIO (10-20); Calcium,Total 9.3 mg/dL (7.6-11.0); Carbon Dioxide 25.9 mmol/L (21.0-32.0); Chloride 104 mmol/L (98-108); Estimated Creatinine Clearance 69.58 ml/min (50-250); Glucose 118 mg/dL (70-99); Potassium 4.4 mmol/L (3.3-5.1)
[2025-02-22 22:56] LABS: Squamous Epithelial Cells - UA 0-5 SEEN /hpf (0-5)
[2025-02-22 22:57] LABS: Mucous, Urine RARE /hpf (<or=2+); Red Blood Cells-Urine 0-5 SEEN /hpf (0-5)
[2025-02-22 23:00] VITALS: BP 137/88; PULSE 59; RESP 20; O2SAT 99
[2025-02-22] MEDS: 0.9% Normal Saline (1000mL) 1,000 ML 1000 ML IV (23:13)
--- NOTE | 2025-02-22 23:41 | ED.RN ---
Ct called regarding CT read. Reply was we called them about it and they are just really behind.
[2025-02-23] VITALS: BP 148/95; PULSE 53; RESP 15; O2SAT 96
[2025-02-23 01:00] VITALS: BP 152/84; PULSE 52; RESP 14; O2SAT 97
[2025-02-23 01:21] VITALS: BP 152/84; PULSE 52; RESP 14; TEMP 36.9; O2SAT 97
== END 2025-02-23 01:40 | disposition home or self-care (01) ==
PROVIDERS: Emergency Provider Emergency Medicine; PCP Family Medicine; Visit Provider Emergency Medicine
DX: R42 Dizziness and giddiness (principal); R20.2 Paresthesia of skin; Z95.828 Presence of other vascular implants and grafts; Z86.711 Personal history of pulmonary embolism; Z86.718 Personal history of other venous thrombosis and embolism
CPT/HCPCS: 70450; 74177; 80048; 81001; 85025; 85610; 85730; 93005; 96361; 96374; 99285; Q9967; A4216

== ENCOUNTER → 2025-03-08 | Outpatient (CLI) | payer OTHER, SELFPAY ==
--- NOTE | 2025-03-08 11:24 | VDLE_ITS ---
Reason For Study Reason For Study: Right leg pain RIGHT LEFT IVC is patent throughout with phasic venous flow. CIV is patent with phasic venous flow noted. CIV is patent with phasic venous flow noted. EIV is patent with phasic venous flow noted. EIV is patent with phasic venous flow noted. GSV is normal. GSV is normal. CFV is compressible, spontaneous, phasic, competent, CFV is compressible, spontaneous, phasic, competent and demonstrates normal augmentation. and demonstrates normal augmentation. FV is compressible, spontaneous, phasic, competent FV is compressible, spontaneous, phasic, competent and demonstrates normal augmentation. and demonstrates normal augmentation. POP V is compressible, spontaneous, phasic, competent POP V is compressible, spontaneous, phasic, competent and demonstrates normal augmentation. and demonstrates normal augmentation. T/P Trunk is compressible. T/P Trunk is compressible. LT PerV is compressible. PTV is compressible. PTV is NONCOMPRESSIBLE with no venous flow noted. RT PerV is compressible. Gastroc V is NONCOMPRESSIBLE with no venous flow noted. Procedure This is a venous duplex using B-mode, color flow and spectral Doppler. Exam performed in department. A preliminary report was called and/or faxed to [facility]. VL/Venous Duplex US - Cam Extrem Interpretation Summary Acute deep vein thrombosis is noted in the right gastrocnemius vein. Acute deep vein thrombosis is noted in the left posterior tibial vein. Ordering Physician: Manuela Vazquez Referring Physician: Dante Gurrola Performed By: Rita Andrade RVT
== END | disposition home or self-care (01) ==
LOC: CVS 10:35
PROVIDERS: PCP Family Medicine; Referring Provider Physician Assistant; Visit Provider Physician Assistant
DX: M79.604 Pain in right leg (principal); M79.605 Pain in left leg; Z95.828 Presence of other vascular implants and grafts
CPT/HCPCS: 93970